=== PATIENT | female | born 1945 | race Caucasian/White ===

== ENCOUNTER 2022-08-02 10:15 | Outpatient (OUT) | payer MEDICARE, SELFPAY ==
--- NOTE | 2022-08-02 10:31 | US_ITS ---
The [address] [address] Patient Name: AYSHA ABRAHAM MRN: [id number] date: 1945 Sex: F Assigned Patient Location: US Current Patient Location: US Accession/Order Number: [id number] Exam Date: 08/02/2022 10:30 Report Date: 08/02/2022 14:44 At the request of: LETHA GÓMEZ Procedure: US soft tissue head and neck EXAMINATION: US soft tissue head and neck HISTORY: Left cervical lymphadenopathy R59.0 COMPARISON: Ultrasound thyroid 03/30/2022 FINDINGS: Oval hypoechoic mass within upper left neck near carotid bifurcation, 1.8 x 1.3 x 0.8 cm. No significant internal blood flow on color Doppler. IMPRESSION: 1. 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 No appreciable change. Electronically authenticated by: CAMILLE CARTER Date: 08/02/2022 14:44
== END 2022-08-02 10:16 ==
LOC: US 10:23
PROVIDERS: PCP Family Medicine; Visit Provider Otolaryngology
DX: R59.0 Localized enlarged lymph nodes (principal)
CPT/HCPCS: 76536

== ENCOUNTER 2022-09-20 05:06 | Observation (INO) | payer MEDICARE, SELFPAY ==
[2022-09-20] VITALS (14 sets, daily range): BP systolic 135–160; BP diastolic 66–82; PULSE 37–99; RESP 13–30; TEMP 36.5–36.8; O2SAT 90–97; BMI 28.3; BMI 29.9
--- NOTE | 2022-09-20 05:20 | ED.ABDPAIN1 ---
HPI - Abdominal Pain General Chief Complaint: Nausea/Vomiting/Diarrhea Stated Complaint: ABD PAIN VOMITTING Time Seen by Provider: 09/20/22 05:17 Source: patient Mode of arrival: Wheelchair History of Present Illness HPI narrative: patient presents complaining of abdominal pain and vomiting. Started yesterday evening. Also constipated. neg hematemesis MD elicited complaint: Reports abdominal pain Pertinent past history: Reports constipation Onset (ago): hour(s) Related Data Home Medications Medication Instructions Recorded Confirmed amlodipine 5 mg tablet mg 09/20/22 aspirin 81 mg tablet,delayed 81 mg PO DAILY 09/20/22 09/20/22 release (Adult Aspirin Regimen) citalopram 40 mg tablet mg 09/20/22 losartan 100 tab 09/20/22 mg-hydrochlorothiazide 25 mg tablet simvastatin 20 mg tablet mg 09/20/22 Allergies Allergy/AdvReac Type Severity Reaction Status Date / Time Penicillins Allergy Unknown Verified 09/20/22 05:18 Review of Systems ROS Status of ROS 10 or more systems reviewed and unremarkable except as noted in history and below [facility] Medical History (Updated 09/20/22 @ 06:51 by Rc Zuniga MD) Surgical History (Updated 09/20/22 @ 06:19 by Brittny Flores) Exam Constitutional Vital Signs, click to edit/add: Last Vital Signs Temp 97.7 F 09/20/22 05:09 Pulse 86 09/20/22 05:09 Resp 20 09/20/22 05:09 BP 160/82 H 09/20/22 05:09 Pulse Ox 93 L 09/20/22 06:03 O2 Del Method Nasal Cannula 09/20/22 06:03 O2 Flow Rate 2 09/20/22 06:03 Common normals: no apparent distress, average body habitus, oriented x3 and healthy appearing Eye Common normals: EOMs intact bilaterally and conjunctivae normal Respiratory Common normals: normal respiratory effort, no retractions, no use of accessory muscles and clear to auscultation bilaterally Cardio Common normals: regular rate, regular rhythm, S1 normal heart sound and S2 normal heart sound GI Other: distended and firm. mild tenderness Extremity Common normals: normal to inspection and full ROM Neuro Common normals: oriented x3, CN's II-XII intact bilaterally, moves all extremities, no focal motor deficits and no sensory deficits noted Psych Appearance: grossly normal Course Vital Signs Vital signs: Vital Signs Temperature 97.7 F 09/20/22 05:09 Pulse Rate 86 09/20/22 05:09 Respiratory Rate 20 09/20/22 05:09 Blood Pressure 160/82 H 09/20/22 05:09 Pulse Oximetry 95 09/20/22 05:09 Oxygen Delivery Method Room Air 09/20/22 05:09 Temperature 97.7 F 09/20/22 05:09 Pulse Rate 86 09/20/22 05:09 Respiratory Rate 20 09/20/22 05:09 Blood Pressure 160/82 H 09/20/22 05:09 Pulse Oximetry 93 L 09/20/22 06:03 Oxygen Delivery Method Nasal Cannula 09/20/22 06:03 Oxygen Delivery Flow Rate 2 09/20/22 06:03 MDM - Abdominal Pain MDM Narrative Medical decision making narrative: patient presents with recurrent vomiting and abdominal pain started last night. abdomen distended and tender. labs with elevated lactic acid. Pain improved after morphine. Nausea is starting to return. a second dose of zofran ordered. CT pending. UA pending. IV hydration ordered for lactic acidosis care transferred to Dr Beckford at change in shift Lab Data Labs: Lab Results 09/20/22 Range/Units 05:25 WBC 14.7 H (4.0-11.0) 10^3/uL RBC 4.93 (4.20-5.40) 10^6/uL Hgb 14.1 (12.0-16.0) g/dL Hct 42.8 (36.0-48.0) % MCV 86.8 (81.0-99.0) fL MCH 28.6 (26.7-34.0) pg MCHC 32.9 (29.9-35.2) g/dL RDW 13.2 (11.0-15.0) % Plt Count 232 (150-450) 10^3/uL MPV 11.0 (9.5-13.5) fL Neut % (Auto) 86.5 H (43.0-75.0) % Lymph % (Auto) 7.4 L (20.5-60.0) % Kay % (Auto) 4.9 (1.7-12.0) % Eos % (Auto) 0.3 L (0.9-7.0) % Baso % (Auto) 0.4 (0.2-2.0) % Neut # (Auto) 12.7 H (1.4-6.5) 10^3/uL Lymph # (Auto) 1.1 L (1.2-3.8) 10^3/uL Kay # (Auto) 0.7 (0.3-0.8) 10^3/uL Eos # (Auto) 0.1 (0.0-0.7) 10^3/uL Baso # (Auto) 0.1 (0.0-0.1) 10^3/uL Abs Immat Gran (auto) 0.07 H (0.00-0.03) 10^3/uL Imm/Tot Granulo (auto) 0.5 (0.0-0.5) % Sodium 140 (136-145) mmol/L Potassium 3.2 L (3.5-5.1) mmol/L Chloride 101 (98-107) mmol/L Carbon Dioxide 25.9 (21.0-32.0) mmol/L Anion Gap 16.3 BUN 25.0 H (7.0-18.0) mg/dL Creatinine 0.96 (0.55-1.02) mg/dL Est GFR ( Amer) >60 (>=60) Est GFR (Non-Af Amer) 57 L (>=60) BUN/Creatinine Ratio 26.0 Glucose 195 H (74-106) mg/dL Lactate 4.3 H* (0.4-2.0) mmol/L Calcium 9.1 (8.5-10.1) mg/dL Total Bilirubin 0.4 (0.2-1.0) mg/dL AST 20 (15-37) U/L ALT 27 (14-59) U/L Alkaline Phosphatase 81 (46-116) U/L Troponin I High Sens 6.0 (4.0-51.3) pg/mL Total Protein 8.3 H (6.4-8.2) g/dL Albumin 4.2 (3.4-5.0) g/dL Globulin 4.1 g/dL Albumin/Globulin Ratio 1.0 Lipase 68.0 L (73.0-393.0) U/L Discharge Plan Discharge Chief Complaint: Nausea/Vomiting/Diarrhea Clinical Impression: Abdominal pain, Vomiting Patient Disposition: Still a Patient Prescriptions / Home Meds: No Action citalopram 40 mg tablet amlodipine 5 mg tablet losartan-hydrochlorothiazide 100-25 mg tablet simvastatin 20 mg tablet aspirin [Adult Aspirin Regimen] 81 mg tablet,delayed release (DR/EC) 81 mg PO DAILY Referrals: Ally Ibarra MD [Primary Care Provider] - 1 week
--- NOTE | 2022-09-20 05:22 | CT_ITS ---
[address] [address] Patient Name: AYSHA ABRAHAM MRN: [id number] date: 1945 Sex: F Assigned Patient Location: ER Current Patient Location: Accession/Order Number: [id number] Exam Date: 09/20/2022 06:10 Report Date: 09/20/2022 06:46 At the request of: RENALDO JACKSON Procedure: CT abdomen pelvis w con EXAMINATION: CT abdomen pelvis w con HISTORY: abdominal pain , vomiting, low back pain COMPARISON: CT abdomen pelvis 10/20/2020 TECHNIQUE: Axial, Coronal, and Sagittal images were obtained without and/or with IV contrast as indicated by examination type. Dose reduction techniques were achieved by using automated exposure control and/or adjustment of mA and/or kV according to patient size and/or use of iterative reconstruction technique. FINDINGS: LUNG BASES: No visible pulmonary or pleural disease. LIVER: No enlargement, atrophy, suspicious density, or significant focal lesion. BILIARY: No dilatation or calcification. PANCREAS: No lesion, fluid collection, or abnormal duct dilatation. SPLEEN: No enlargement or focal lesion. ADRENALS: No mass or enlargement. KIDNEYS: No mass, obstruction, or calcification. BOWEL/MESENTERY: Abnormally dilated fluid-filled loops of small bowel 3 cm in diameter with completely collapsed distal ileum and colon. Mild diverticulosis of sigmoid colon. No appreciable mass, hernia, wall thickening, free air, or free fluid. AORTA/VASCULAR: Moderate atherosclerotic disease. No aneurysm. RETROPERITONEUM: No mass or adenopathy. LYMPH NODES: No adenopathy. URINARY BLADDER: No visible focal wall thickening, lesion, or calculus. PELVIC ORGANS: No visible mass. Pelvic organs appropriate for patient age. ABDOMINAL WALL: Eventration of the anterior wall at level of umbilicus; no hernia sac. BONES: No bony lesion or fracture. OTHER: Negative. CT/CT abdomen pelvis w con IMPRESSION: 1.Distal small bowel obstruction in the region of distal ileum, estimated to be approximately 25 cm before the ileocecal valve. No identifiable transition point or mass. 2.Mild sigmoid diverticulosis. Electronically authenticated by: CAMILLE CARTER Date: 09/20/2022 06:46
--- NOTE | 2022-09-20 05:22 | XR_ITS ---
The [address] [address] Patient Name: AYSHA ABRAHAM MRN: [id number] date: 1945 Sex: F Assigned Patient Location: ER Current Patient Location: ED.[facility] Accession/Order Number: [id number] Exam Date: 09/20/2022 06:00 Report Date: 09/20/2022 06:30 At the request of: RENALDO JACKSON Procedure: XR chest 1V EXAM: XR chest 1V HISTORY: Shortness of breath; technologist notes state abdominal pain and discomfort, vomiting and low back pain since last night. COMPARISON: 01/05/2018. TECHNIQUE: AP erect portable chest radiograph performed. FINDINGS: The trachea is unremarkable. The cardiac silhouette is upper limits normal size. There are mild atelectatic densities at the both lung bases. There is no additional consolidation or infiltrate. There is no pleural effusion or pulmonary vascular congestion. There is no pneumothorax. There is no acute osseous abnormality. The bony structures are osteopenic. There is mild dextroscoliosis centered at the thoracolumbar junction. There are degenerative changes at the glenohumeral articulations, severe on the left. XR/XR chest 1V IMPRESSION: Mild atelectatic densities at both lung bases. Electronically authenticated by: JUAN DANIEL FARIA Date: 09/20/2022 06:30
--- NOTE | 2022-09-20 05:24 | ECG_ITS ---
The [facility] Test Date: 2022-09-20 Pat Name: Sarina Villegas Department: Room: - Gender: Female Background Check Coordinator: : 1945 Requested By: TREVOR GUEVARA Order Number: [id number] Reading MD: ERIKA RODRIGES Measurements Intervals Pender Rate: 89 P: 38 PA: 138 QRS: -2 QRSD: 100 T: -39 QT: 378 QTc: 424 Interpretive Statements 1100 Sinus rhythm 2217 Type-B Atxch-Vwhhnoexf-Dhkrp syndrome 9150 abnormal ECG No previous ECG available for comparison Electronically Signed On 09-20-2022 6:59:24 EDT by ERIKA RODRIGES
[2022-09-20 05:37] LABS: Basophils Absolute Auto 0.1 10^3/uL (0.0-0.1); Basophils Percent Auto 0.4 % (0.2-2.0); Eosinophils Absolute Auto 0.1 10^3/uL (0.0-0.7); Eosinophils Percent Auto 0.3 % (0.9-7.0); Hematocrit 42.8 % (36.0-48.0); Hemoglobin 14.1 g/dL (12.0-16.0); Immature Granulocytes Abs Auto 0.07 10^3/uL (0.00-0.03); Immature Granulocytes Pct Auto 0.5 % (0.0-0.5); Lymphocytes Absolute Auto 1.1 10^3/uL (1.2-3.8); Lymphocytes Percent Auto 7.4 % (20.5-60.0); Mean Corpuscular HGB Conc 32.9 g/dL (29.9-35.2); Mean Corpuscular Hemoglobin 28.6 pg (26.7-34.0); Mean Corpuscular Volume 86.8 fL (81.0-99.0); Monocytes Absolute Auto 0.7 10^3/uL (0.3-0.8); Monocytes Percent Auto 4.9 % (1.7-12.0); Neutrophils Absolute Auto 12.7 10^3/uL (1.4-6.5); Neutrophils Percent Auto 86.5 % (43.0-75.0); Platelet Count 232 10^3/uL (150-450); Red Blood Count 4.93 10^6/uL (4.20-5.40); Red Cell Distribution Width 13.2 % (11.0-15.0); White Blood Count 14.7 10^3/uL (4.0-11.0)
--- NOTE | 2022-09-20 05:40 | PC.NURSE ---
patient c/o sharp abdominal pain across abdomen and back pain. patient has been vomiting since approx 11pm last night. states she was fine earlier in the day and started to feel sick after she cooked dinner. patient abdomen is more distended and firmer than usual but it is always on the larger side. patient states she feels like she is constipated, she had a bowel movement earlier yesterday but states she could go more. patient has increased weakness, denies any chest pain, fever or chills. emesis has foul smelling odor. patient c/o pain in throat. unable to give urine sample at this time. iv established, ekg obtained.
[2022-09-20 05:49] LABS: Alanine Aminotransferase 27 U/L (14-59); Albumin Level 4.2 g/dL (3.4-5.0); Alkaline Phosphatase 81 U/L (46-116); Anion Gap 16.3; Aspartate Amino Transferase 20 U/L (15-37); Bilirubin Total 0.4 mg/dL (0.2-1.0); Calcium 9.1 mg/dL (8.5-10.1); Carbon Dioxide 25.9 mmol/L (21.0-32.0); Chloride 101 mmol/L (98-107); Estimated GFR (African America >60 (>=60); Estimated GFR (Non-African Ame 57 (>=60); Globulin 4.1 g/dL; Glucose 195 mg/dL (74-106); Potassium 3.2 mmol/L (3.5-5.1); Sodium 140 mmol/L (136-145); Total Protein 8.3 g/dL (6.4-8.2)
[2022-09-20] MEDS: MORPHINE SULFATE 4 MG/ML VIAL IV (05:51)
[2022-09-20] MEDS: 0.9 % SODIUM CHLORIDE 1,000 ML 999 ML IV ×2 (05:51→07:04)
[2022-09-20 05:52] LABS: Lactate/Lactic Acid 4.3 mmol/L (0.4-2.0)
[2022-09-20] MEDS: ONDANSETRON PF 4 MG/2 ML VIAL IV ×2 (05:52→07:04)
--- NOTE | 2022-09-20 06:04 | PC.NURSE ---
patient o2 saturation dropped to 84% shortly after morphine administration. instructed patient to take a deep breath and saturation returned to baseline. patient placed on 2 liters o2 via nasal canula
[2022-09-20 06:55] LABS: Bilirubin Urine NEGATIVE (NEGATIVE); Blood Urine NEGATIVE (NEGATIVE); Clarity Urine CLEAR (CLEAR); Color Urine YELLOW (YELLOW); Glucose Urine UA NEGATIVE (NEGATIVE); Ketones Urine NEGATIVE (NEGATIVE); Leukocyte Esterase Urine NEGATIVE (NEGATIVE); Nitrite Urine NEGATIVE (NEGATIVE); Protein Urine NEGATIVE (NEG/TRACE); Specific Gravity Urine 1.025 (1.005-1.025); Urine Microscopic Indicated NO; Urobilinogen Urine 0.2 EU/dL (0.2-1.0); pH Urine 5.5 (5.0-9.0)
--- NOTE | 2022-09-20 07:30 | XR_ITS ---
The [address] [address] Patient Name: AYSHA ABRAHAM MRN: [id number] date: 1945 Sex: F Assigned Patient Location: ER Current Patient Location: MS Accession/Order Number: [id number] Exam Date: 09/20/2022 07:45 Report Date: 09/20/2022 08:16 At the request of: CYDNEY ROBLES Procedure: XR chest 1V EXAMINATION: XR chest 1V HISTORY: NG tube placement COMPARISON: XR chest 09/20/2022 5:22 AM FINDINGS: LUNGS: Underexpanded lungs with mild bibasilar atelectasis (no infiltrates on this morning's CT abdomen pelvis study). VASCULATURE: No increased pulmonary vasculature. PLEURA: No pneumothorax, effusion, or pleural thickening. CARDIAC: No cardiomegaly or cardiac silhouette abnormality. MEDIASTINUM: No visible mass or adenopathy. BONES: No fracture or visible bone lesion. OTHER: Nasogastric tube extends into distal fundus of stomach. XR/XR chest 1V IMPRESSION: 1. Nasogastric tube within fundus of stomach. Electronically authenticated by: CAMILLE CARTER Date: 09/20/2022 08:16
[2022-09-20 09:26] LABS: Lactate/Lactic Acid 2.8 mmol/L (0.4-2.0)
[2022-09-20] MEDS: ENOXAPARIN SODIUM 40 MG/0.4 ML SYRINGE SUBQ (11:46)
[2022-09-20] MEDS: LACTATED RINGER'S SOLUTION 1,000 ML 100 ML IV ×2 (11:47→21:37)
[2022-09-20] MEDS: POTASSIUM CHLORIDE 40 MEQ in 0.9 % SODIUM CHLORIDE 250 ML 67.5 MEQ IV (11:47)
[2022-09-20] MEDS: PANTOPRAZOLE SODIUM 40 MG VIAL IV (15:40)
--- NOTE | 2022-09-20 17:40 | P.GSCN_ITS ---
History of Present Illness Consult details Consult date: 09/20/22 Reason for consult: abdominal pain Requesting physician: Shaikh Shira Narrative: 77 yo female with h/o CAD, htn, hypercholesterolemia, hypothyroidism, arthritis, presented to ED with h/o crampy mid abd pain that began yesterday evening, N/V; workup revealed dehydration; ct scan with dilated small bowel and stomach, possible partial sbo; patient had NG tube placed, did have liquid stool in ED, pain has now resolved, no further N/V. patient had ROSE MARIE for sbo in 2006 via periumbilical incision. abd operations also significant for cholecystectomy, appendectomy and ovarian cystectomy. patient reports that she has intermittent problems with loose stools, at times uncontrollable; has been taking Imodium, and she did take some the day prior to these symptoms. no tobacco use. Review of Systems ROS Status of ROS 10 or more systems reviewed and unremarkable except as noted in history and below [facility] Medical History (Updated 09/20/22 @ 17:50 by Augie Brothers MD) Surgical History (Updated 09/20/22 @ 06:19 by Brittny Flores) Family History (Updated 09/20/22 @ 08:23 by Geno Morin) Brother Family history of cancer Family history of myocardial infarction Mother Family history of stroke Social History (Updated 09/20/22 @ 08:27 by Geno Morin) Within the past year, how often did you have a drink containing alcohol: 2-4 times a month Within the past year, how many standard drinks containing alcohol did you have on a typical day: 1 or 2 Within the past year, how often did you have six or more drinks on one occasion: never Total score: 0 Score interpretation: A score less than 3 is consistent with normal alcohol consumption. Smoking status: Former smoker Non-prescribed substance use: denies use Previous occupational history: [employer] Highest level of school completed/degree received: high school graduate Are you now , , , , never or living with a partner: In a typical week, how many times do you talk on the telephone with family, friends, or neighbors: 3 or more times per week How often do you get together with friends or relatives: once per week How often do you attend mormonism or lutheran services: 4 or more times per year Do you belong to any clubs or organizations such as mormonism groups unions, fraternal or athletic groups, or school groups: no Total score: 2 Score interpretation: A score of greater than or equal to 2 indicates the low est level of social isolation. Little interest or pleasure in doing things: not at all Feeling down, depressed, or hopeless: not at all Feel stressed/tense/nervous/anxious/difficulty sleeping: not at all Gender Identity: female Meds Home Medications and Allergies Home Medications Medication Instructions Recorded Confirmed Type amlodipine 5 mg tablet 5 mg PO DAILY 09/20/22 09/20/22 History aspirin 81 mg tablet,delayed 81 mg PO DAILY 09/20/22 09/20/22 History release (Adult Aspirin Regimen) citalopram 40 mg tablet 40 mg PO DAILY 09/20/22 09/20/22 History levothyroxine 50 mcg tablet 50 mcg PO DAILY 09/20/22 09/20/22 History losartan 100 1 tab PO DAILY 09/20/22 09/20/22 History mg-hydrochlorothiazide 25 mg tablet simvastatin 20 mg tablet 20 mg PO DAILY 09/20/22 09/20/22 History Allergies Allergy/AdvReac Type Severity Reaction Status Date / Time Penicillins Allergy Unknown Verified 09/20/22 05:18 Exam Constitutional Vital Signs, click to edit/add: Last Vital Signs Temp 98.0 F 09/20/22 14:00 Pulse 79 09/20/22 14:00 Resp 16 09/20/22 14:00 BP 155/66 H 09/20/22 14:00 Pulse Ox 92 L 09/20/22 14:00 O2 Del Method Room Air 09/20/22 14:00 O2 Flow Rate 2 09/20/22 08:18 Common normals: no apparent distress, alert and well nourished General appearance: cooperative and comfortable Nutritional appearance: obese Orientation/consciousness: Yes awake, Yes oriented to person, Yes oriented to place and Yes oriented to time Respiratory Common normals: normal respiratory effort Auscultation: clear to auscultation bilaterally Cardio Common normals: no JVD Rate: regular rate Rhythm: regular rhythm GI Other: obese, soft, normal bs; nondistended, nontender, well-healed abd incisions, no hernias or masses noted; NG tube with bilious drainage. Extremity Common normals: normal to inspection Neuro Common normals: no focal motor deficits Results Labs Labs: Abnormal lab results 09/20/22 09/20/22 Range/Units 05:25 08:45 WBC 14.7 H (4.0-11.0) 10^3/uL Neut % (Auto) 86.5 H (43.0-75.0) % Lymph % (Auto) 7.4 L (20.5-60.0) % Eos % (Auto) 0.3 L (0.9-7.0) % Neut # (Auto) 12.7 H (1.4-6.5) 10^3/uL Lymph # (Auto) 1.1 L (1.2-3.8) 10^3/uL Abs Immat Gran (auto) 0.07 H (0.00-0.03) 10^3/uL Potassium 3.2 L (3.5-5.1) mmol/L BUN 25.0 H (7.0-18.0) mg/dL Est GFR (Non-Af Amer) 57 L (>=60) Glucose 195 H (74-106) mg/dL Lactate 4.3 H* 2.8 H* (0.4-2.0) mmol/L Total Protein 8.3 H (6.4-8.2) g/dL Lipase 68.0 L (73.0-393.0) U/L Diabetes panel 09/20/22 Range/Units 05:25 Sodium 140 (136-145) mmol/L Potassium 3.2 L (3.5-5.1) mmol/L Chloride 101 (98-107) mmol/L Carbon Dioxide 25.9 (21.0-32.0) mmol/L BUN 25.0 H (7.0-18.0) mg/dL Creatinine 0.96 (0.55-1.02) mg/dL Glucose 195 H (74-106) mg/dL Calcium 9.1 (8.5-10.1) mg/dL AST 20 (15-37) U/L ALT 27 (14-59) U/L Alkaline Phosphatase 81 (46-116) U/L Total Protein 8.3 H (6.4-8.2) g/dL Albumin 4.2 (3.4-5.0) g/dL Calcium panel 09/20/22 Range/Units 05:25 Calcium 9.1 (8.5-10.1) mg/dL Albumin 4.2 (3.4-5.0) g/dL Pituitary panel 09/20/22 Range/Units 05:25 Sodium 140 (136-145) mmol/L Potassium 3.2 L (3.5-5.1) mmol/L Chloride 101 (98-107) mmol/L Carbon Dioxide 25.9 (21.0-32.0) mmol/L BUN 25.0 H (7.0-18.0) mg/dL Creatinine 0.96 (0.55-1.02) mg/dL Glucose 195 H (74-106) mg/dL Calcium 9.1 (8.5-10.1) mg/dL Adrenal panel 09/20/22 Range/Units 05:25 Sodium 140 (136-145) mmol/L Potassium 3.2 L (3.5-5.1) mmol/L Chloride 101 (98-107) mmol/L Carbon Dioxide 25.9 (21.0-32.0) mmol/L BUN 25.0 H (7.0-18.0) mg/dL Creatinine 0.96 (0.55-1.02) mg/dL Glucose 195 H (74-106) mg/dL Calcium 9.1 (8.5-10.1) mg/dL Total Bilirubin 0.4 (0.2-1.0) mg/dL AST 20 (15-37) U/L ALT 27 (14-59) U/L Alkaline Phosphatase 81 (46-116) U/L Total Protein 8.3 H (6.4-8.2) g/dL Albumin 4.2 (3.4-5.0) g/dL All other labs normal. Assessment and Plan Assessment and Plan (1) Abdominal pain: Assessment and Plan: currently resolved (2) Vomiting: Assessment and Plan: currently resolved Plan continue NG decompression, bowel rest, hydration; supportive care; will recheck abd films in am, may need sbft via NG tube.
--- NOTE | 2022-09-20 20:23 | P.HP_ITS ---
H&P: HPI History of Present Illness Chief complaint: ABD PAIN/SBO Narrative: 77 y o female presents with sudden onset nausea, vomiting, inability to keep her food down, associated generalized abdominal pain, that is cramping in nature, intermittent, with no specific aggravating or alleviating factors. Also reports abdominal distention, and last bowel movement was past Tuesday. Reports she is seeing bile in her vomit. Prior hx of SBO that required laparotomy over 5 years ago and since then this is the first time she has developed bowel obstruction again. Has chronic diarrhea and her bowels movements are never ok. Colonoscopy 2 yeas ago - normal as per patient. In ED, w/u c/w SBO, she had NGT insertion for bowel rest, and decompression and was admitted to inpatient service for further care. Reports feeling better with NGT, has copious/large volume drainage from NGT that looks like bowel. She had a small liquid BM just when she arrived on floor. Review of Systems ROS Status of ROS 10 or more systems reviewed and unremarkable except as noted in history and below PFSH PFS Medical History Surgical History Family History Brother Family history of cancer Family history of myocardial infarction Mother Family history of stroke Social History Within the past year, how often did you have a drink containing alcohol: 2-4 times a month Within the past year, how many standard drinks containing alcohol did you have on a typical day: 1 or 2 Within the past year, how often did you have six or more drinks on one occasion: never Total score: 0 Score interpretation: A score less than 3 is consistent with normal alcohol consumption. Smoking status: Former smoker Non-prescribed substance use: denies use Previous occupational history: [employer] Highest level of school completed/degree received: high school graduate Are you now , , , , never or living with a partner: In a typical week, how many times do you talk on the telephone with family, friends, or neighbors: 3 or more times per week How often do you get together with friends or relatives: once per week How often do you attend restorationist or presybeterian services: 4 or more times per year Do you belong to any clubs or organizations such as restorationist groups unions, fraternal or athletic groups, or school groups: no Total score: 2 Score interpretation: A score of greater than or equal to 2 indicates the lowest level of social isolation. Little interest or pleasure in doing things: not at all Feeling down, depressed, or hopeless: not at all Feel stressed/tense/nervous/anxious/difficulty sleeping: not at all Gender Identity: female Meds Home Medications and Allergies Home Medications Medication Instructions Recorded Confirmed Type amlodipine 5 mg tablet 5 mg PO DAILY 09/20/22 09/20/22 History aspirin 81 mg tablet,delayed 81 mg PO DAILY 09/20/22 09/20/22 History release (Adult Aspirin Regimen) citalopram 40 mg tablet 40 mg PO DAILY 09/20/22 09/20/22 History levothyroxine 50 mcg tablet 50 mcg PO DAILY 09/20/22 09/20/22 History losartan 100 1 tab PO DAILY 09/20/22 09/20/22 History mg-hydrochlorothiazide 25 mg tablet simvastatin 20 mg tablet 20 mg PO DAILY 09/20/22 09/20/22 History Allergies Allergy/AdvReac Type Severity Reaction Status Date / Time Penicillins Allergy Unknown Verified 09/20/22 05:18 Exam Constitutional Vital Signs, click to edit/add: Last Vital Signs Temp 98.0 F 09/20/22 14:00 Pulse 79 09/20/22 14:00 Resp 16 09/20/22 14:00 BP 155/66 H 09/20/22 14:00 Pulse Ox 92 L 09/20/22 14:00 O2 Del Method Room Air 09/20/22 14:00 O2 Flow Rate 2 09/20/22 08:18 Documenting provider has reviewed patient's vital signs: yes Common normals: no apparent distress General appearance: cooperative and comfortable HENMT Common normals: normocephalic and head/scalp atraumatic Nose: other (NGT in place, with large bilious drainage.) Respiratory Common normals: normal respiratory effort, no retractions, no use of accessory muscles and clear to auscultation bilaterally GI Common normals: Normal to inspection, nondistended, normoactive bowel sounds present, soft to palpation, non-tender and no hepatosplenomegaly Extremity Common normals: normal to inspection and full ROM Neuro Common normals: CN's II-XII intact bilaterally, moves all extremities, no focal motor deficits and no sensory deficits noted Psych Common normals: thought process normal, cooperative, denies hallucinations, denies homicidal ideation and denies suicidal ideation Results Labs Labs: Short CBC 09/20/22 Range/Units 05:25 WBC 14.7 H (4.0-11.0) 10^3/uL Hgb 14.1 (12.0-16.0) g/dL Hct 42.8 (36.0-48.0) % Plt Count 232 (150-450) 10^3/uL BMP 09/20/22 05:25 Sodium 140 Potassium 3.2 L Chloride 101 Carbon Dioxide 25.9 BUN 25.0 H Creatinine 0.96 Glucose 195 H Calcium 9.1 Liver Function 09/20/22 Range/Units 05:25 Total Bilirubin 0.4 (0.2-1.0) mg/dL AST 20 (15-37) U/L ALT 27 (14-59) U/L Alkaline Phosphatase 81 (46-116) U/L Albumin 4.2 (3.4-5.0) g/dL Urine 09/20/22 Range/Units 06:45 Urine Color Yellow (YELLOW) Urine Clarity Clear (CLEAR) Urine pH 5.5 (5.0-9.0) Ur Specific [place] 1.025 (1.005-1.025) Urine Protein Negative (NEG/TRACE) mg/dL Urine Glucose (UA) Negative (NEGATIVE) mg/dL Assessment and Plan Assessment and Plan (1) SBO (small bowel obstruction): Assessment and Plan: NGT in place. Small liquid BM this morning C/w supportive care. Surgery on board. (2) Intractable nausea and vomiting: Assessment and Plan: Due to SBO Improved with NGT insertion Zofran as needed. (3) Hypertension: Assessment and Plan: above goal likely due to pain. Resume oral meds once able to use. Hydralazine PRN until then (4) Leukocytosis: Assessment and Plan: likely reactive. no source of infection identified. Monitor. (5) Lactic acid acidosis: Assessment and Plan: Likely due to dehydration Improved with hydration (6) CAD (coronary artery disease): Assessment and Plan: s/p PCI over 10 years ago On ASA, statin Cw same No CP, SOB (7) HLD (hyperlipidemia): Assessment and Plan: c/w simvastatin (8) Hypothyroidism: Assessment and Plan: C/w levothyroxine (9) Depression: Assessment and Plan: C/w citalopram daily Plan continue NG decompression, bowel rest, hydration; supportive care; will recheck abd films in am, may need sbft via NG tube.
--- NOTE | 2022-09-21 | FL_ITS ---
The [address] [address] Patient Name: AYSHA ABRAHAM MRN: [id number] date: 1945 Sex: F Assigned Patient Location: [place] Current Patient Location: [place] Accession/Order Number: [id number] Exam Date: 09/21/2022 12:05 Report Date: 09/21/2022 15:06 At the request of: SHAIKH CUBA Procedure: FL small bowel EXAM: FL small bowel HISTORY: Small bowel obstruction COMPARISON: XR acute abdomen series 09/21/2022 7:45 AM TECHNIQUE: Oral contrast given with follow-up radiographs to document passage. FINDINGS: Oral contrast has passed through the entire small bowel and is present within the colon at one hour. FL/FL small bowel IMPRESSION: 1. No bowel obstruction or ileus. Electronically authenticated by: CAMILLE CARTER Date: 09/21/2022 15:06
[2022-09-21 04:44] LABS: Basophils Percent Auto 0.3 % (0.2-2.0); Eosinophils Absolute Auto 0.2 10^3/uL (0.0-0.7); Eosinophils Percent Auto 3.8 % (0.9-7.0); Hematocrit 33.6 % (36.0-48.0); Hemoglobin 10.8 g/dL (12.0-16.0); Immature Granulocytes Abs Auto 0.01 10^3/uL (0.00-0.03); Immature Granulocytes Pct Auto 0.2 % (0.0-0.5); Lymphocytes Absolute Auto 1.7 10^3/uL (1.2-3.8); Lymphocytes Percent Auto 28.3 % (20.5-60.0); Mean Corpuscular HGB Conc 32.1 g/dL (29.9-35.2); Mean Corpuscular Hemoglobin 29.4 pg (26.7-34.0); Mean Corpuscular Volume 91.6 fL (81.0-99.0); Mean Platelet Volume 11.4 fL (9.5-13.5); Monocytes Absolute Auto 0.6 10^3/uL (0.3-0.8); Monocytes Percent Auto 9.4 % (1.7-12.0); Neutrophils Absolute Auto 3.5 10^3/uL (1.4-6.5); Platelet Count 149 10^3/uL (150-450); Red Blood Count 3.67 10^6/uL (4.20-5.40); Red Cell Distribution Width 13.4 % (11.0-15.0); White Blood Count 6.1 10^3/uL (4.0-11.0)
[2022-09-21 04:47] VITALS: BP 106/62; PULSE 66; TEMP 37.1; O2SAT 92
[2022-09-21 05:10] LABS: Alanine Aminotransferase 22 U/L (14-59); Albumin Globulin Ratio 0.9; Albumin Level 2.9 g/dL (3.4-5.0); Alkaline Phosphatase 59 U/L (46-116); Anion Gap 8.1; Aspartate Amino Transferase 17 U/L (15-37); BUN Creatinine Ratio 21.1; Bilirubin Total 0.3 mg/dL (0.2-1.0); Calcium 7.9 mg/dL (8.5-10.1); Carbon Dioxide 30.2 mmol/L (21.0-32.0); Chloride 109 mmol/L (98-107); Estimated GFR (African America >60 (>=60); Estimated GFR (Non-African Ame >60 (>=60); Globulin 3.2 g/dL; Glucose 96 mg/dL (74-106); Potassium 3.3 mmol/L (3.5-5.1); Sodium 144 mmol/L (136-145); Total Protein 6.1 g/dL (6.4-8.2)
--- NOTE | 2022-09-21 08:39 | XR_ITS ---
The [address] [address] Patient Name: AYSHA ABRAHAM MRN: [id number] date: 1945 Sex: F Assigned Patient Location: MS Current Patient Location: [place] Accession/Order Number: [id number] Exam Date: 09/21/2022 07:53 Report Date: 09/21/2022 08:56 At the request of: SUSANNE MCDOWELL Procedure: XR acute abdomen series EXAMINATION: XR acute abdomen series HISTORY: abdominal pain ; follow-up small bowel obstruction COMPARISON: XR chest 09/20/2022, CT abdomen pelvis 09/20/2022 FINDINGS: LUNGS: No infiltrate, pneumothorax, or pleural effusion. MEDIASTINUM: No abnormal widening. BOWEL GAS PATTERN: No abnormal bowel dilation or suspicious fluid levels. FREE AIR: None. CALCIFICATIONS: None significant. BONES: Levoscoliosis of lumbar spine. OTHER: Nasogastric tube extends into fundus of stomach. Side port appears to be just above the gastroesophageal junction. XR/XR acute abdomen series IMPRESSION: 1. No bowel obstruction or findings to suggest ileus. 2. No acute cardiopulmonary process. Electronically authenticated by: CAMILLE CARTER Date: 09/21/2022 08:56
[2022-09-21] MEDS: LACTATED RINGER'S SOLUTION 1,000 ML 100 ML IV ×2 (09:12→20:19)
[2022-09-21] MEDS: ENOXAPARIN SODIUM 40 MG/0.4 ML SYRINGE SUBQ (10:09)
[2022-09-21] MEDS: POTASSIUM CHLORIDE 40 MEQ in 0.9 % SODIUM CHLORIDE 250 ML 67.5 MEQ IV (10:10)
--- NOTE | 2022-09-21 12:02 | CM.NOTE ---
Rounds made with Dr. Silva. Dr. Silva reviewed tests(Radiology) results and new orders with Sarina. Verbalizes understanding.
--- NOTE | 2022-09-21 12:56 | PM.IMPN1 ---
Progress Note: A&P Assessment and Plan (1) SBO (small bowel obstruction): Assessment and Plan: XR abd this am shows resolution Gen Surg asked for XR Small bowel follow through with gastrografin. If normal, will remove NGT and advance diet as tolerated. (2) Intractable nausea and vomiting: Assessment and Plan: Resolved. NGT in place but clamped now and patient feels well. Remove if Small bowel series is normal and advance diet as tolerated (3) Hypertension: Assessment and Plan: At goal. Will resume home meds once able to take orally (4) Leukocytosis: Assessment and Plan: Resolved (5) Lactic acid acidosis: Assessment and Plan: From hpyoperfusion/dehydration. Monitor (6) CAD (coronary artery disease): Assessment and Plan: on ASA, Statin Stable (7) HLD (hyperlipidemia): Assessment and Plan: C/w statin (8) Hypothyroidism: Assessment and Plan: C/w levothyroxine (9) Depression: Assessment and Plan: Stable. C/w citalopram Plan F/u XR abd series, if normal, will removed NGT and advance diet. If patient tolerates oral diet and remains asymptomatic, will d/c home Will need to monitor for symptoms and response to oral diet and will require comtinued hospital stay and will likely go home tomorrow if continues to progress clinically in the right direction Internal Medicine - PN: Subj Subjective Interval history: Seen and examined. Doing well. NGT is clamped and patient was getting gastrogrfin through it when I evaluated her this am XR abdominal series from this am - shows no evidence of bowel obs or ileus Exam Constitutional Vital Signs, click to edit/add: Last Vital Signs Temp 98.7 F 09/21/22 04:47 Pulse 66 09/21/22 04:47 Resp 15 09/20/22 20:58 BP 106/62 09/21/22 04:47 Pulse Ox 92 L 09/21/22 04:47 O2 Del Method Nasal Cannula 09/21/22 04:47 O2 Flow Rate 2 09/20/22 20:58 FiO2 2 09/21/22 04:47 Documenting provider has reviewed patient's vital signs: yes Common normals: no apparent distress General appearance: cooperative and comfortable HENMT Common normals: normocephalic and head/scalp atraumatic Nose: other (NGT in place) Respiratory Common normals: normal respiratory effort, no retractions, no use of accessory muscles and clear to auscultation bilaterally GI Common normals: Normal to inspection, nondistended, normoactive bowel sounds present, soft to palpation, non-tender and no hepatosplenomegaly Extremity Common normals: normal to inspection and full ROM Neuro Common normals: CN's II-XII intact bilaterally, moves all extremities, no focal motor deficits and no sensory deficits noted Psych Common normals: thought process normal, cooperative, denies hallucinations, denies homicidal ideation and denies suicidal ideation Internal Medicine - PN: Obj Da Labs Labs: Laboratory Results - last 24 hr 09/21/22 04:27 WBC 6.1 RBC 3.67 L Hgb 10.8 L Hct 33.6 L MCV 91.6 MCH 29.4 MCHC 32.1 RDW 13.4 Plt Count 149 L MPV 11.4 Neut % (Auto) 58.0 Lymph % (Auto) 28.3 [place] % (Auto) 9.4 Eos % (Auto) 3.8 Baso % (Auto) 0.3 Neut # (Auto) 3.5 Lymph # (Auto) 1.7 [place] # (Auto) 0.6 Eos # (Auto) 0.2 Baso # (Auto) 0.0 Abs Immat Gran (auto) 0.01 Imm/Tot Granulo (auto) 0.2 Sodium 144 Potassium 3.3 L Chloride 109 H Carbon Dioxide 30.2 Anion Gap 8.1 BUN 15.0 Creatinine 0.71 Est GFR ( Amer) >60 Est GFR (Non-Af Amer) >60 BUN/Creatinine Ratio 21.1 Glucose 96 Calcium 7.9 L Total Bilirubin 0.3 AST 17 ALT 22 Alkaline Phosphatase 59 Total Protein 6.1 L Albumin 2.9 L Globulin 3.2 Albumin/Globulin Ratio 0.9
[2022-09-21 13:05] VITALS: BMI 29.9
[2022-09-21 13:24] VITALS: BP 174/76; PULSE 75; RESP 18; TEMP 36.5; O2SAT 85
[2022-09-21] MEDS: PANTOPRAZOLE SODIUM 40 MG VIAL IV (14:35)
[2022-09-21 14:38] VITALS: BP 162/78
--- NOTE | 2022-09-21 17:21 | PM.GSPN ---
Progress Note: A&P Assessment and Plan (1) SBO (small bowel obstruction): Assessment and Plan: resolved; possible ileus from Imodium verses gastroenteritis; recommend discontinuing Imodium, can use Questran powder as needed for intermittent diarrhea; advance to low residue diet as tolerated; will sign off. (2) Intractable nausea and vomiting: Assessment and Plan: resolved (3) Hypertension: (4) Leukocytosis: (5) Lactic acid acidosis: (6) CAD (coronary artery disease): (7) HLD (hyperlipidemia): (8) Hypothyroidism: (9) Depression: Plan advance to low residue diet as tolerated; ok for discharge from surgery standpoint; will sign off. Subjective Subjective Interval history: doing well, no pain today, multiple loose stools after gastrograffin; sbft without obstruction; tolerating full liquid diet now. Exam Constitutional Vital Signs, click to edit/add: Last Vital Signs Temp 97.7 F 09/21/22 13:24 Pulse 75 09/21/22 13:24 Resp 18 09/21/22 13:24 BP 162/78 H 09/21/22 14:38 Pulse Ox 85 L 09/21/22 13:24 O2 Del Method Room Air 09/21/22 13:24 O2 Flow Rate 2 09/20/22 20:58 FiO2 2 09/21/22 04:47 GI Other: soft, nontender, nondistended
[2022-09-21 21:35] VITALS: BP 169/83; PULSE 75; RESP 18; TEMP 36.8; O2SAT 91
[2022-09-21 22:34] VITALS: BP 169/89
[2022-09-21] MEDS: HYDRALAZINE HCL 20 MG/ML VIAL 10 MG IVP (22:34)
[2022-09-22 05:07] LABS: Basophils Percent Auto 0.3 % (0.2-2.0); Eosinophils Absolute Auto 0.2 10^3/uL (0.0-0.7); Eosinophils Percent Auto 3.1 % (0.9-7.0); Hematocrit 34.5 % (36.0-48.0); Hemoglobin 11.1 g/dL (12.0-16.0); Immature Granulocytes Abs Auto 0.02 10^3/uL (0.00-0.03); Immature Granulocytes Pct Auto 0.3 % (0.0-0.5); Lymphocytes Absolute Auto 1.4 10^3/uL (1.2-3.8); Lymphocytes Percent Auto 19.5 % (20.5-60.0); Mean Corpuscular HGB Conc 32.2 g/dL (29.9-35.2); Mean Corpuscular Hemoglobin 28.5 pg (26.7-34.0); Mean Corpuscular Volume 88.7 fL (81.0-99.0); Mean Platelet Volume 11.4 fL (9.5-13.5); Monocytes Absolute Auto 0.6 10^3/uL (0.3-0.8); Neutrophils Absolute Auto 5.1 10^3/uL (1.4-6.5); Neutrophils Percent Auto 68.8 % (43.0-75.0); Platelet Count 160 10^3/uL (150-450); Red Blood Count 3.89 10^6/uL (4.20-5.40); Red Cell Distribution Width 13.2 % (11.0-15.0); White Blood Count 7.4 10^3/uL (4.0-11.0)
[2022-09-22 05:25] LABS: Alanine Aminotransferase 19 U/L (14-59); Albumin Globulin Ratio 0.9; Albumin Level 3.1 g/dL (3.4-5.0); Alkaline Phosphatase 63 U/L (46-116); Anion Gap 14.1; Aspartate Amino Transferase 19 U/L (15-37); BUN Creatinine Ratio 12.3; Bilirubin Total 0.4 mg/dL (0.2-1.0); Calcium 8.4 mg/dL (8.5-10.1); Carbon Dioxide 27.3 mmol/L (21.0-32.0); Chloride 105 mmol/L (98-107); Estimated GFR (African America >60 (>=60); Estimated GFR (Non-African Ame >60 (>=60); Globulin 3.5 g/dL; Glucose 96 mg/dL (74-106); Potassium 3.4 mmol/L (3.5-5.1); Sodium 143 mmol/L (136-145); Total Protein 6.6 g/dL (6.4-8.2)
[2022-09-22 05:53] VITALS: BP 130/73; PULSE 73; RESP 16; TEMP 36.6; O2SAT 91
[2022-09-22 06:00] VITALS: BP 130/73; PULSE 73; RESP 16; TEMP 36.6; O2SAT 91
[2022-09-22] MEDS: LACTATED RINGER'S SOLUTION 1,000 ML 100 ML IV (06:59)
[2022-09-22] MEDS: LEVOTHYROXINE SODIUM 25 MCG TABLET 50 MCG PO (08:24)
[2022-09-22] MEDS: ATORVASTATIN CALCIUM 10 MG TABLET PO (08:25)
[2022-09-22] MEDS: AMLODIPINE BESYLATE 5 MG TABLET PO (08:25)
[2022-09-22] MEDS: ASPIRIN 81 MG TABLET.DR PO (08:25)
[2022-09-22] MEDS: CITALOPRAM HYDROBROMIDE 20 MG TABLET 40 MG PO (08:25)
[2022-09-22] MEDS: LOSARTAN POTASSIUM 50 MG TABLET 100 MG PO (08:25)
[2022-09-22] MEDS: POTASSIUM CHLORIDE 10 MEQ ER TABLET 40 MEQ PO (08:25)
[2022-09-22] MEDS: ENOXAPARIN SODIUM 40 MG/0.4 ML SYRINGE SUBQ (09:28)
--- NOTE | 2022-09-22 09:39 | CM.NOTE ---
Rounding with Dr. Silva. Pt. sitting up on edge of bed. No anticipated discharge needs. Dr discussing past occupation and pt. voiced she is retired from [employer] Anticipated discharge today.
--- NOTE | 2022-09-22 10:32 | PM.DS1 ---
DS: Providers Provider Date of admission: 09/20/22 07:55 Primary care physician: Ally Ibarra MD Consults: 09/20/22 09:55 Consult to General Surgeon Routine Consulting Provider: Augie Brothers 09/20/22 09:56 Occupational Therapy Eval and Treat Routine Physical Therapy Eval and Treat Routine Attending physician on discharge: Shaikh Shira Discharging clinician: Shaikh Shira Anticipated date of discharge: 09/22/22 DS: Diagnosis Discharge Diagnosis (1) SBO (small bowel obstruction): Assessment and plan: Resolved with conservative measures. Tolerating oral diet. No nausea or vomiting. Passing gas. Denies abd (2) Intractable nausea and vomiting: Assessment and plan: Resolved. Tolerating oral diet (3) Hypertension: Assessment and plan: Resume home oral meds. (4) Leukocytosis: Assessment and plan: Resolved. Likely reactive (5) Lactic acid acidosis: Assessment and plan: Due to volume depletion (6) CAD (coronary artery disease): Assessment and plan: Stable. No active ischemia noted. C/w home meds (7) HLD (hyperlipidemia): Assessment and plan: C/w statin (8) Hypothyroidism: Assessment and plan: C/w levothyroxine (9) Depression: Assessment and plan: Stable. No SI/HI. c/w citalopram DS: Summary Hospital Course Hospital Course: 77 y o p/w intractable nausea/vomiting, abdominal distention, abdominal pain along with inability to move bowels and pass gas, found to have SBO. She had NGT insertion and was managed conservatively with IV fluids, Pain and nausea control. She then passed pass movement on 09/21 and f/u XR abdominal series along with small bowel series showed resolution of SBO. Patient's NGT was removed and she was started on oral diet. She tolerated full liquid diet w/o any GI symptoms. She denies N/V or abdominal pain. She is passing gas. Stable for d/c. Patient educated on signs and symptoms that should prompt her to return to ED. Will d/c home with oral zofran as needed. Time spent discussing smoking cessation with patient: 3 to 10 minutes Status at Discharge Functional status at discharge: independent ambulation Overall status at discharge: patient is back to baseline Time Spent with Patient Time attestation: Total time spent providing and/or coordinating discharge services: Time spent: greater than 30 minutes Exam Constitutional Vital Signs, click to edit/add: Last Vital Signs Temp 97.9 F 09/22/22 06:00 Pulse 73 09/22/22 06:00 Resp 16 09/22/22 06:00 BP 130/73 H 09/22/22 06:00 Pulse Ox 91 L 09/22/22 06:00 O2 Del Method Room Air 09/22/22 06:00 O2 Flow Rate 2 09/20/22 20:58 FiO2 2 09/21/22 04:47 Documenting provider has reviewed patient's vital signs: yes Common normals: no apparent distress General appearance: cooperative and comfortable HENMT Common normals: normocephalic and head/scalp atraumatic Respiratory Common normals: normal respiratory effort, no retractions, no use of accessory muscles and clear to auscultation bilaterally GI Common normals: Normal to inspection, nondistended, normoactive bowel sounds present, soft to palpation, non-tender and no hepatosplenomegaly Extremity Common normals: normal to inspection and full ROM Neuro Common normals: CN's II-XII intact bilaterally, moves all extremities, no focal motor deficits and no sensory deficits noted Psych Common normals: thought process normal, cooperative, denies hallucinations, denies homicidal ideation and denies suicidal ideation DS: Data Data Completed and Pending Labs on day of discharge: Labs from last 24 hours 09/22/22 04:22 WBC 7.4 RBC 3.89 L Hgb 11.1 L Hct 34.5 L MCV 88.7 MCH 28.5 MCHC 32.2 RDW 13.2 Plt Count 160 MPV 11.4 Neut % (Auto) 68.8 Lymph % (Auto) 19.5 L [place] % (Auto) 8.0 Eos % (Auto) 3.1 Baso % (Auto) 0.3 Neut # (Auto) 5.1 Lymph # (Auto) 1.4 [place] # (Auto) 0.6 Eos # (Auto) 0.2 Baso # (Auto) 0.0 Abs Immat Gran (auto) 0.02 Imm/Tot Granulo (auto) 0.3 Sodium 143 Potassium 3.4 L Chloride 105 Carbon Dioxide 27.3 Anion Gap 14.1 BUN 8.0 Creatinine 0.65 Est GFR ( Amer) >60 Est GFR (Non-Af Amer) >60 BUN/Creatinine Ratio 12.3 Glucose 96 Calcium 8.4 L Total Bilirubin 0.4 AST 19 ALT 19 Alkaline Phosphatase 63 Total Protein 6.6 Albumin 3.1 L Globulin 3.5 Albumin/Globulin Ratio 0.9 Discharge Plan Discharge Disposition: Home, Self-Care Condition: Good Discharge Medications: New ondansetron 4 mg tablet,disintegrating 4 mg PO Q8H PRN (Reason: nausea and vomiting) 4 Days Qty: 10 0RF Continued citalopram 40 mg tablet 40 mg PO DAILY amlodipine 5 mg tablet 5 mg PO DAILY losartan-hydrochlorothiazide 100-25 mg tablet 1 tab PO DAILY simvastatin 20 mg tablet 20 mg PO DAILY aspirin [Adult Aspirin Regimen] 81 mg tablet,delayed release (DR/EC) 81 mg PO DAILY levothyroxine 50 mcg tablet 50 mcg PO DAILY Activity: increase activity as tolerated and resume usual activities as tolerated Diet: advance to your usual diet and other Diet Detail: soft diet and advance as tolerated Patient Instructions: Bowel Obstruction (DC) Forms: Portal Instructions Referrals: Shaikh Silva MD [Physician] - Follow Up Appointments: Nursing-please schedule follow up appointment with Dr. Silva in 7 days post discharge. Pt. wants to change him to her PCP.
[2022-09-22 13:35] VITALS: BP 145/75; PULSE 85; RESP 20; TEMP 36.4; O2SAT 92
--- NOTE | 2022-09-23 11:48 | CM.DCFOLLOWU ---
Person spoke with: patient How are you feeling? I am feeling ok How is your pain? not really having any Did you understand your discharge instructions? yes Do you have any questions about your discharge instructions? no Were you given any prescriptions at discharge? yes Were you able to get your prescriptions filled? no yet. my daughter is picking them up for me later today. Do you understand how to take your medications as ordered? yes Do you have any questions about your follow up appointment and do you plan to keep your follow up appointment? No I do not have questions and yes I plan on keeping appointment Is there anything else that you would like to discuss? Dr. Brothers mentioned something to me about something you drink besides Immodium that I could take, but I do not think it was ordered. Looked through Dr. Oliver note and it does look as though he discussed Questran with patient but did not order. I encouraged patient to contact Dr. Silva's office [facility] and spelled this medication for patient, to see if he would like to prescribe it for her and if so, hopefully her daughter could pick that up for her as well. Pt. voiced understanding and states she would do that. Questions/Comments/Concerns/Other: none
--- OUTSIDE RECORDS SUMMARY | 2023-03-16 16:29 | XMS_ITS | CCD ---
Author Name Unknown Address [address] [place] [address] Organization [facility] Care Team Providers Care Reservoir Engineering Manager Name Role Phone Joy BROWNE DORIS Attending Unavailable SACHA SCHROEDER Referring Unavailable ANDREE PETERS Admitting Unavailable KHURIANDREE Attending Unavailable VLASTARISJONATHAN Consulting Unavailable BERRIOCHOLORETTA Osborn Attending Unavailable BSHARA, UZMA Admitting Unavailable BSHARA, UZMA Attending Unavailable ALYAFI, [facility] Consulting Unavailable PROVIDER, UNKNOWN Attending Unavailable PROVIDER, UNKNOWN Admitting Unavailable SACHA SCHROEDER Primary Care Unavailable Sacha Schroeder MD Primary Care Provider Sacha Schroeder MD Primary Care Provider PAOLA, DR TREVOR Hamilton Admitting Unavailable GUEVARA, DR TREVOR Hamilton Attending Unavailable GUEVARA, DR TREVOR Hamilton Primary Care Unavailable ZIEBER, DR CAMILLE Pryor Consulting Unavailable GUEVARA, DR TREVOR Hamilton Consulting Unavailable GUEVARA, DR TREVOR Hamilton Primary Care Unavailable GUEVARA, DR TREVOR Hamilton Admitting Unavailable GUEVARA, DR TREVOR Hamilton Attending Unavailable GRANGER, DR MICHELE Vizcarra Consulting Unavailable GUEVARA, DR TREVOR Hamilton Consulting Unavailable GUEVARA, DR TREVOR Hamilton Admitting Unavailable GUEVARA, DR TREVOR Hamilton Attending Unavailable ZIEBER, DR CAMILLE Pryor Consulting Unavailable GUEVARA, DR TREVOR Hamilton Primary Care Unavailable GUEVARA, DR TREVOR Hamilton Consulting Unavailable REQUEST, NONE LISTED Attending Unavaila ble REQUEST, NONE LISTED Consulting Unavaila ble REQUEST, NONE LISTED Admitting Unavaila ble GUEVARA, DR TREVOR Hamilton Primary Care Unavailable Trevor Guevara Unavailable Sacha Schroeder MD Primary Care Provider SHAIKH BRINK Primary Care Physician Prince Cabello Attending Unavaila ble NONE, XXXX Referring Unavailable Prince Cabello Attending Unavaila fredo NONE, XXXX Referring Unavailable Prince Cabello Referring Unavaila Prince La Attending Unavaila Prince La Admitting UnavailMD Nacho Norman Consulting Unavailable Nacho ADAMS Consulting Unavailable Nacho ADAMS Consulting Unavailable Augie MCDOWELL Attending Unavailable SHAIKH BRINK Attending Unavailable LETHA GÓMEZ Attending Unavailable Allergies Allergy Classification Reported Allergen(s) Allergy Type Date of Onset Reaction(s) Facility (2 sources) Sulfonamides (Antibiotic); Translations: [SULFA (SULFONAMIDE ANTIBIOTICS)] Propensity to adverse reactions to drug (disorder) 03-28-19 04 [facility] Repository (2 sources) OTHER; Translations: [OTHER] Propensity to adverse reactions (disorder) 02-03-20 06 [facility] Repository (6 sources) atorvastatin; Translations: [ATORVASTATIN] Drug All[facility] ezetimibe; Translations: [EZETIMIBE] Drug Allergy 05-[facility]-19 [facility] ([facility] sources) Hmg-Coa Reductase Inhibitors (Statins); Translations: [STATINS] Propensity to adverse reactions to drug (disorder) 09-05-19 08 [facility] ([facility]) Nitroglycerin; Translations: [NITROGLYCERIN] Drug Allergy 06-18-19 16 [facility] ([facility] sources) pitavastatin; Translations: [PITAVASTATIN] Drug Allergy 09-02-19 17 [facility] ([facility] sources) rosuvastatin; Translations: [ROSUVASTATIN] Drug Allergy 09-04-19 16 [facility] Simvastatin; Translations: [SIMVASTATIN] Drug Allergy 06-18-19 16 [facility]) Sulfonamides (Antibiotic); Translations: [SULFA ANTIBIOTICS] Propensity to adverse reactions to drug (disorder) 09-02-19 08 [facility] ([facility] sources) BANDAGE TAPE; Translations: [BANDAGE TAPE] Propensity to adverse reactions (disorder) 09-17-19 15 [facility] source) Cephalosporins (Antibiotic) Drug allergy (disorder) [facility] Repository (1 source) Penicillins Drug allergy (disorder) 08-31-19 13 [facility] Repository (5 sources) Penicillin; Translations: [penicillin] Drug Allergy hives, Eruption of skin (disorder) [facility] Medications Current Medications Medication Drug Class(es) Dates Sig (Normalized) Sig (Original) [id number] 200 actuat albuterol 0.09 mg/actuat metered dose inhaler (15 sources) beta2-Adrenergic Agonist Start: 01-20-2018 take 2 puff(s) by mouth every four hours as needed for wheezing albuterol (PROVENTIL HFA) INHALATION HFA inhaler (VENTOLIN,PROAIR, PROVENTIL) 90mcg Inhale 2 Puffs by mouth every 4 hours as needed for Wheezing. 8.5 g 3 01/20/2018 Active Start: 09-04-2007 take 2 puff(s) by in halation every four hours as needed for wheezing albuterol (PROVENTIL, VENTOLIN) 90 MCG/ACT inhaler Inhale 2 Puffs every 4 hours as needed for Wheezing. 1 3 09/04/2007 Active albuterol (PROVE NTIL) (2.5 MG/3ML) 0.083% nebulizer solution 2.5 mg via nebulizer every 4 hours as needed. 0 Active Amlodipine (9 sources) Dihydropyridine Calcium Channel Barbara Start: 12-16-2022 amlodipine Refills(s ) 0 Start Date: 12/16/22 Status: Ordered Start: 09-20-2017 take 1 tablet by paulino th once daily amLODIPine (NORVASC) 5 MG tablet TAKE 1 TABLET BY MOUTH DAILY 90 Tablet 3 09/20/2017 Active take 1 tablet by paulino th every twelve hours amLODIPine Besylate 5 MG 1 tablet Orally twice a day Active Aspir-81 (1 source) Aspir-81 Active aspirin 81 mg delayed release oral tablet (8 sources) Platelet Aggregation Inhibitor, Nonsteroidal Anti-inflammatory Drug Start: 12-16-2022 aspirin 81 mg Oral EC Tab Refills(s) 0 Start Date: 12/16/22 Status: Ordered take 1 tablet by paulino th once daily at mealtime aspirin 81 MG tablet Indications: Aortic valve disorders , Heart valve replaced by other means , CAD (coronary artery disease) , Shortness of breath Take 81 mg by mouth daily. 0 Active buPROPion hydrochloride 75 mg oral tablet (5 sources) Aminoketone Start: 10-01-2016 take 1 tablet by mouth twice daily buPROPion (WELLBUTRIN) 75 MG tablet TAKE 1 TABLET BY MOUTH TWICE DAILY 180 Tablet 3 10/01/2016 Active carvedilol 25 mg oral tablet (5 sources) alpha-Adrenergic Barbara, beta-Adrenergic Barbara Start: 01-09-2018 take 1 tablet by mouth twice daily CARvedilol (COREG) 25 MG tablet TAKE 1 TABLET BY MOUTH TWICE DAILY 180 Tablet 3 01/09/2018 Active cholecalciferol 0.05 mg oral tablet (5 sources) Vitamin D Start: 11-20-2015 Cholecalciferol (VITAMIN D) 2000 UNITS TABS Take 4,000 Units by mouth daily. 30 Tablet 12 11/20/2015 Active Citalopram (4 sources) Serotonin Reuptake Inhibitor Start: 12-16-2022 citalopram Refills(s) 0 Start Date: 12/16/22 Status: Ordered take 1 tablet by mouth once delgado y Citalopram Hydrobromide 40 MG take 1 tablet by mouth once daily for 90 Active clindamycin 300 mg oral capsule (1 source) Lincosamide Antibacterial Start: 06-14-2022 take 1 capsule by mouth every twelve hours Clindamycin HCl 300 MG 1 capsule Orally every 12 hrs for 7 days May, Active clopidogrel 75 mg oral tablet (3 sources) P2Y12 Platelet Inhibitor Start: 08-02-2017 take 1 tablet by mouth once daily clopidogrel (PLAVIX) 75 MG tablet TAKE 1 TABLET BY MOUTH DAILY 270 Tablet 0 08/02/2017 Active furosemide 20 mg oral tablet (5 sources) Loop Diuretic Start: 10-11-2017 take 1 tablet by mouth once daily furosemide (LASIX) 20 MG tablet TAKE 1 TABLET BY MOUTH DAILY 100 Tablet 3 10/11/2017 Active glimepiride 1 mg oral tablet (5 sources) Sulfonylurea Start: 12-06-2017 take 2 tablets by mouth once daily at breakfast, then take 1 tablet by mouth once daily at dinner glimepiride (AMARYL) 1 MG tablet TAKE 2 TABLETS BY MOUTH DAILY with breakfast and take 1 tablet daily with dinner 540 Tablet 1 12/06/2017 Active hydroCHLOROthiazide 25 mg / losartan potassium 100 mg oral tablet (1 source) Thiazide Diuretic, Angiotensin 2 Receptor Barbara take 1 tablet by mouth every twenty-four hours Losartan Potassium-HCTZ 100-25 MG 1 tablet Orally Once a day Active hydrocortisone 25 mg/ml topical cream (1 source) Corticosteroid Start: 06-11-2022 Anusol-HC 2.5 % 1 application Externally Twice a day for 30 days May, Active Thyroxine (4 sources) l-Thyroxine Start: 12-16-2022 levothyroxine Refills(s) 0 Start Date: 12/16/22 Status: Ordered Start: 03-03-2022 take 1 tablet by paulino th once daily in the morning Levothyroxine Sodium 50 MCG 1 tablet in the morning on an empty stomach Orally Once a day for 90 days Feb, Active lisinopril 30 mg oral tablet (5 sources) Angiotensin Converting Enzyme Inhibitor Start: 03-29-2017 take 1 tablet by mouth once daily lisinopril (PRINIVIL, ZESTRIL) 30 MG tablet Take 1 Tablet by mouth daily. 90 Tablet 3 03/29/2017 Active Losartan (3 sources) Angiotensin 2 Receptor Barbara Start: 12-16-2022 losartan Refills(s) 0 Start Date: 12/16/22 Status: Ordered nitroglycerin 0.4 mg sublingual tablet (5 sources) Nitrate Vasodilator nitroglycerin (NITROSTAT) 0.4 MG sublingual tablet 0.4 mg by Sublingual route every 5 minutes as needed. Maximum of 3 tablets in 15 minutes. 0 Active omeprazole 20 mg delayed release oral capsule (5 sources) Proton Pump Inhibitor omeprazole (PRILOSEC) 20 MG capsule Indications: Other iron deficiency anemia , Unspecified essential hypertension , Shortness of breath Take 20 mg by mouth. 0 Active pitavastatin calcium 2 mg oral tablet (5 sources) HMG-CoA Reductase Inhibitor Start: 06-16-2016 take 1 tablet by mouth at bedtime Pitavastatin Calcium 2 MG TABS Take 1 Tablet by mouth at bedtime. 30 Tablet 3 06/16/2016 Active sertraline 100 mg oral tablet (5 sources) Serotonin Reuptake Inhibitor Start: 01-20-2018 take 1.5 tablets by mouth once daily sertraline (ZOLOFT) 100 MG tablet Take 1.5 Tablets by mouth daily. 135 Tablet 3 01/20/2018 Active Simvastatin (4 sources) HMG-CoA Reductase Inhibitor Start: 12-16-2022 simvastatin Refills(s) 0 Start Date: 12/16/22 Status: Ordered take 1 tablet by paulino every twenty-four hours Simvastatin 20 MG 1 tablet in the evenin g Orally Once a day Active tiotropium (5 sources) Anticholinergic Tiotropium Bromi de Monohydrate (SPIRIVA HANDIHALER INHALATION) Inhale. 0 Active triamcinolone acetonide 0.25 mg/ml topical cream (5 sources) Corticosteroid Start: 6 triamcinolone 0.025 % cream Apply topically 2 times daily. Apply thin layer to affected area. 1 Tube 4 07/30/2015 Active ubidecarenone 200 mg oral capsule (5 sources) Start: 6 take 1 capsule by mouth once daily Coenzyme Q10 200 MG CAPS Take 1 Capsule by mouth daily. 30 Capsule 12 09/04/2015 Active vitamin b12 0.1 mg oral tablet (5 sources) Vitamin B12 Start: 6 take 1 tablet by mouth once daily vitamin B-12 (CYANOCOBALAMIN) 100 MCG tablet TAKE 1 TABLET BY MOUTH DAILY 30 Tablet 6 04/11/2015 Active Problems Active Problems Problem Classification Problem Date Documented Da te Episodic/Chronic Acute myocardial infarction (6 sources) Non-ST elevation (NSTEMI) myocardial infarction; Translations: [Myocardial infarction] Onset: 06-16-2016 06-16-2016 Chronic Chronic kidney disease (1 source) Chronic kidney disease, stage 3 (moderate); Translations: [Chronic kidney disease, stage 3 (moderate)] Onset: 03-29-2018 Chronic Chronic obstructive pulmonary disease and bronchiectasis (6 sources) Chronic obstructive pulmonary disease with (acute) exacerbation; Translations: [Chronic obstructive lung disease] Onset: 06-28-2013 07-11-2015 Chronic Conduction disorders (5 sources) Right bundle branch block; Translations: [Unspecified right bundle-branch block] Onset: 09-11-2007 09-11-2007 Chronic Congestive heart failure; nonhypertensive (2 sources) Heart failure, unspecified; Translations: [Heart failure, unspecified] Onset: 03-24-2018 Chronic Coronary atherosclerosis and other heart disease (15 sources) Unstable angina; Translations: [Atherosclerotic heart disease of nez perce coronary artery with unstable angina pectoris] Onset: 06-12-2015 04-16-2021 Chronic Diabetes mellitus without complication (5 sources) Type 2 diabetes mellitus; Translations: [Type 2 diabetes mellitus without complications] 09-29-2015 Chronic Disorders of lipid metabolism (8 sources) Hyperlipidemia; Translations: [Hyperlipidemia, unspecified] Onset: 05-16-2003 07-11-2015 Chronic Disorders of teeth and jaw (1 source) Periapical abscess without sinus Episodic Diverticulosis and diverticulitis (5 sources) Diverticulitis of large intestine; Translations: [Diverticulitis of large intestine without perforation or abscess without bleeding] Onset: 02-23-2017 02-24-2017 Chronic Essential hypertension (12 sources) Essential (primary) hypertension; Translations: [Essential hypertension] Onset: 09-11-2007 06-17-2018 Chronic Fluid and electrolyte disorders (2 sources) Hyperkalemia; Translations: [Hypokalemia] Onset: 03-24-2018 Episodic Heart valve disorders (15 sources) H/O: heart valve recipient; Translations: [Presence of other heart-valve replacement] Onset: 09-11-2007 06-17-2018 Chronic Hypertension with complications and secondary hypertension (1 source) Hypertensive emergency; Translations: [Hypertensive emergency] Onset: 03-29-2018 Miscellaneous mental health disorders (1 source) Mental disorder, not otherwise specified; Translations: [Mental disorder, not otherwise specified] Onset: 03-24-2018 Chronic Nutritional deficiencies (1 source) Moderate protein-calorie malnutrition; Translations: [Malnutrition of moderate degree (HCC)] Onset: 07-07-2018 Chronic Other circulatory disease (1 source) Personal history of other diseases of the circulatory system; Translations: [History of hypertension] Onset: 06-29-2018 Episodic Other circulatory disease (4 sources) Other specified symptoms and signs involving the circulatory and respiratory systems; Translations: [OTH SPEC SX SIGNS INVLV CIRC RS] Onset: 01-20-2022 Episodic Other connective tissue disease (1 source) Pain in left foot; Translations: [Pain in left foot] Onset: 06-06-2018 Episodic Other diseases of bladder and urethra (5 sources) Vesicocolic fistula; 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] Onset: 02-23-2017 04-16-2021 Chronic Other liver diseases (5 sources) Steatosis of liver; Translations: [Fatty (change of) liver, not elsewhere classified] Onset: 01-31-2017 04-16-2021 Chronic Other screening for suspected conditions (not mental disorders or infectious disease) (1 source) Encounter for screening mammogram for malignant neoplasm of breast; Translations: [ENC SCR MAMMO MALIG NEOPLASM BREAST] Onset: 01-25-2022 Episodic Other skin disorders (4 sources) Localized swelling, mass and lump, neck; Translations: [LOCALIZED SWELLING MASS AND LUMP NECK] Onset: 03-30-2022 Episodic Substance-related disorders (1 source) Nicotine dependence, unspecified, uncomplicated; Translations: [Nicotine dependence, unspecified, uncomplicated] Onset: 03-29-2018 Chronic Thyroid disorders (6 sources) Non-toxic uninodular goiter; Translations: [Nontoxic single thyroid nodule] Onset: 03-22-2014 06-17-2018 Chronic Past or Other Problems Problem Classification Problem Date Documented Da te Episodic/Chronic Abdominal pain (5 sources) Indigestion; Translations: [Epigastric pain] Onset: 01-31-2017 01-31-2017 Episodic Acute and unspecified renal failure (1 source) Acute kidney failure, unspecified; Translations: [Acute kidney failure, unspecified] Onset: 03-29-2018 Episodic Biliary tract disease (5 sources) Biliary calculus; Translations: [Calculus of gallbladder without cholecystitis without obstruction] Onset: 08-07-2013 08-07-2013 Episodic Conditions associated with dizziness or vertigo (15 sources) Vertigo; Translations: [Dizziness and giddiness] Onset: 06-28-2013 06-28-2013 Episodic Coronary atherosclerosis and other heart disease (1 source) History of cardiac catheterization; Translations: [Presence of coronary angioplasty implant and graft] Onset: 05-20-2016 05-20-2016 Episodic Deficiency and other anemia (5 sources) Anemia; Translations: [Anemia, unspecified] Onset: 01-31-2017 01-31-2017 Episodic Gastrointestinal hemorrhage (10 sources) Melena; Translations: [Melena] Onset: 02-20-2014 02-20-2014 Episodic Menstrual disorders (5 sources) Disorder of female genital organs; Translations: [Other specified irregular menstruation] Onset: 05-02-2014 Resolved: 05-02-2014 05-02-2014 Chronic Nonspecific chest pain (6 sources) Chest pain, unspecified; Translations: [Chest pain] Onset: 06-14-2016 06-14-2016 Episodic Other injuries and conditions due to external causes (5 sources) Late effect of injury; Translations: [Late effect of injury] Onset: 10-10-2015 10-10-2015 Episodic Other liver diseases (1 source) Abnormal levels of other serum enzymes; Translations: [Abnormal levels of other serum enzymes] Onset: 03-24-2018 Episodic Other non-traumatic joint disorders (5 sources) Hand joint stiff; Translations: [Stiffness of unspecified hand, not elsewhere classified] Onset: 10-10-2015 10-10-2015 Episodic Other skin disorders (5 sources) Adherent scar; Translations: [Scar conditions and fibrosis of skin] Onset: 10-10-2015 10-10-2015 Episodic Rehabilitation care; fitting of prostheses; and adjustment of devices (5 sources) Patient encounter status; Translations: [Other physical therapy] Onset: 04-03-2014 04-03-2014 Episodic Residual codes; unclassified (1 source) Tobacco use; Translations: [Tobacco use] Onset: 03-24-2018 Episodic Residual codes; unclassified (5 sources) Other specified health status; Translations: [Other drug allergy] Onset: 09-01-2016 09-01-2016 Episodic Respiratory failure; insufficiency; arrest (adult) (1 source) Acute respiratory failure with hypoxia; Translations: [Acute respiratory failure with hypoxia] Onset: 03-24-2018 Episodic Syncope (5 sources) Vasovagal symptom; Translations: [Syncope and collapse] Onset: 07-11-2015 07-11-2015 Episodic Results Test Name Value Interpretation Reference Range Facility Heart and Vascular Office/[facility] Noteon 01-27-2023 Heart and Vascular Office/Clinic Note Chief Complaint here for test results History of Present Illness Sarina Villegas is a 77-year-old female with a history of coronary artery disease, hypertension, and hyperlipidemia, currently clinically stable. The patient reports that she is doing well. Her most recent carotid and echocardiogram assessments were within normal parameters. She denies any chest pain or dyspnea. She reports that she has not undergone a stress test recently due to the discomfort associated with her hip condition. She underwent a carotid artery ultrasound, which identified a spot in a lymph node. She has an appointment scheduled with her physician in a couple of weeks. The patient initiated a regimen of twice-daily amlodipine administration, reporting an improvement in her symptoms. Her blood pressure today was normal. 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 She has a history of a spot on her eye. Review of Systems Constitutional: no fever, no sweats, no weakness Skin: no rash, no lesions, no bruising/petechiae ENMT: no sore throat, no congestion, no hoarseness Respiratory: no shortness of breath, no cough, no orthopnea, no wheezing Cardiovascular: no chest pain, no palpitations, no edema Gastrointestinal: no nausea, no vomiting, no diarrhea, no GI bleeding Genitourinary: no anuria/oliguria no hematuria Musculoskeletal: no back pain, no trauma Neurologic: no headache, no dizziness, no numbness, no weakness Psychiatric: no sleeping problems, no irritability, no anxiety/depression. Heme/Lymph: no bleeding tendency, no bruising tendency Allergy/Immunologic: no recurrent infections, no impaired immunity Additional ROS info: Except as noted in the above Review of Systems and in the History of Present Illness all other systems have been reviewed and are negative or noncontributory Physical Exam Vitals & Measurements HR: 82(Peripheral) BP: 134/82 SpO2: 98% HT: 63 in HT: 160 cm WT: 78.5 kg WT: 172.7 lb BMI: 30.66 General: alert, no acute distress Skin: warm, dry intact Head: atraumatic, normocephalic Neck: trachea midline, no JVD, no bruit Eye: normal conjunctiva, sclera clear ENMT: oral mucosa moist Cardiovascular: regular rate and rhythm, no murmur, normal peripheral perfusion Respiratory: lungs CTA, respirations non labored Chest wall: no deformity. Gastrointestinal: soft, non-distended, no tenderness, no guarding. Back: no tenderness, normal ROM, normal alignment. Extremities: no edema, no deformity, no trauma Neurological: oriented x 4, LOC appropriate for age, sensation equal & normal bilaterally, speech normal Psychiatric: cooperative, affect appropriate for age, normal judgement, normal psychiatric thoughts. Assessment/Plan Sarina Villegas is a 77-year-old female with a history of coronary artery disease, hypertension, hyperlipidemia, currently clinically stable. The carotid test was negative. The Echocardiogram looked good. 1. Coronary artery disease. Stable. No angina. Currently on aspirin, statin, and blood pressure management. 2. Hypertension. Well controlled on amlodipine and losartan. 3. Hyperlipidemia. Managed by statin. Follow up in 6 months. ATTESTATION: Portions of this record may have been created with voice recognition artificial intelligence software, specifically [employer] and or [employer]. Substitutions may have occurred due to the inherent limitations of voice recognition and artificial intelligence software. Documentation services were performed after patient or guardian consented to allow [facility] to record this visit. BERTRAM international trade specialist and provider reviewed before signing. BERTRAM: Mary Gardner Follow-up No qualifying data available Problem List/Past Medical History Ongoing No qualifying data Historical Coronary artery disease Hyperlipidemia Hypertension Hypertension Procedure/Surgical History Cholecystectomy. Medications amlodipine aspirin 81 mg Oral EC Tab citalopram levothyroxine losartan simvastatin Allergies penicillin (Rash) Social History Tobacco Former smoker, quit more than 30 days ago Tobacco Use:., 01/27/2023 [facility] Comment on above: Result Comment: Elec tronically Signed By: Destiney DE LEÓN, Prince Castro\.br\Date and Time Signed: 01/27/23 19:48 EST\.br\Electronically Co-Signed By: Mary Gardner\.br\Date and Time Co-Signed: 01/27/23 15:10 EST Physician Orderon 01-27-2023 Physician Order [id number]# [id number] [facility] Heart and Vascular Office/Cl inic Noteon 01-23-2023 Heart and Vascular Office/Clinic Note Chief Complaint here to establish care History of Present Illness Sarina Villegas is a 77-year-old female patient here today to established care. She had a stent placed in 2009 or 2010. She reports that she has been doing well since then, but she has uncontrolled blood pressure. She notices that her blood pressure has improved since taking amlodipine 5 mg once daily. The prescription notes twice a day but she was taking it once a day at morning because she believes it was bothering her like having trouble sleeping. She denies chest pain or trouble breathing. She notes that when she is lying down she gasping for breathing. The patient mentions that her eye DrCeline have seen spot behind her left eye. She had a spot on a lymph node. She had her carotids checked in the past, which shows a minimal blockage in her neck. He underwent echocardiogram probably more than 5 years ago Review of Systems Constitutional: no fever, no sweats, no weakness Skin: no rash, no lesions, no bruising/petechiae ENMT: no sore throat, no congestion, no hoarseness Respiratory: no shortness of breath, no cough, no orthopnea, no wheezing Cardiovascular: no chest pain, no palpitations, no edema Gastrointestinal: no nausea, no vomiting, no diarrhea, no GI bleeding Genitourinary: no anuria/oliguria no hematuria Musculoskeletal: no back pain, no trauma Neurologic: no headache, no dizziness, no numbness, no weakness Psychiatric: no sleeping problems, no irritability, no anxiety/depression. Heme/Lymph: no bleeding tendency, no bruising tendency Allergy/Immunologic: no recurrent infections, no impaired immunity Additional ROS info: Except as noted in the above Review of Systems and in the History of Present Illness all other systems have been reviewed and are negative or noncontributory Physical Exam Vitals & Measurements HR: 76(Peripheral) BP: 140/86 SpO2: 92% HT: 63 in HT: 160 cm WT: 79.8 kg WT: 175.56 lb BMI: 31.17 General: alert, no acute distress Neck: Trachea midline, no JVD, mild murmur on right side of bruit Cardiovascular: regular rate and rhythm, no murmur, normal peripheral perfusion Respiratory: Lungs CTA, respirations non labored Extremities: no edema, no deformity, no trauma Neurological: oriented x 4, LOC appropriate for age, sensation equal & normal bilaterally, speech normal Skin: warm, dry intact Assessment/Plan CAD (coronary artery disease) (I25.10: Atherosclerotic heart disease of nez perce coronary artery without angina pectoris) Sarina Villegas is a 77-year-old female with a history of CAD, remote stent in 2010, normal left ventricular systolic function, hypertension, and hyperlipidemia. She had been followed by Dr. Ruffin until recently and he has retired. She has a history of some mild carotid disease as well as what sounds like a Hollenhorst plaque. She also has uncontrolled blood pressure. I am going to go ahead and check an echocardiogram to evaluate for left ventricular function. The patient is opting against a stress test at this time. For now, we will continue to follow symptoms. I am increasing her amlodipine for hypertension. We will get a carotid duplex to evaluate the right carotid bruit that I hear. Follow up in 6 weeks in [place]. Portions of this record may have been created with voice recognition artificial intelligence software, specifically [employer], [employer] and or [employer]. Substitutions may have occurred due to the inherent limitations of voice recognition and artificial intelligence software. Documentation services were performed after patient or guardian consented to allow [employer] to record this visit. BERTRAM international trade specialist and provider reviewed before signing. BERTRAM: Abran Nick. Follow-up No qualifying data available Problem List/Past Medical History Ongoing No qualifying data Historical Coronary artery disease Hyperlipidemia Hypertension Hypertension Procedure/Surgical History Cholecystectomy. Medications amlodipine aspirin 81 mg Oral EC Tab citalopram levothyroxine losartan simvastatin Allergies penicillin (Rash) Social History Tobacco Former smoker, quit more than 30 days ago Tobacco Use:., 12/16/2022 [facility] Comment on above: Result Comment: Elec tronically Signed By: Destiney DE LEÓN, Prince Castro\.br\Date and Time Signed: 01/23/23 19:23 EST\.br\Electronically Co-Signed By: Michelle Nick\.br\Date and Time Co-Signed: 12/16/22 14:43 EDT\.br\Electronically Co-Signed By: Michelle Nick\.br\Date and Time Co-Signed: 12/16/22 14:44 EDT Consent for Treatmenton 11-0 Consent for Treatment [id number] .00TIFF [facility] US Carotid Duplex Bilateralo n 01-05-2023 US Carotid Duplex Bilateral Exam Date/Time: 01/05/2023 10:29 EST Reason for Exam: R09.89;Bruit Report IMPRESSION: NEGATIVE STUDY. NO EVIDENCE OF SIGNIFICANT STENOSIS. CLINICAL HISTORY: Bruit, R09.89 COMPARISON: NONE. COMMENT: No plaques are identified at the carotid bifurcation. There is antegrade blood flow in the right and left vertebral arteries in the neck. On Doppler images, the peak systolic velocity measurements in centimeters per second are as follows: Right proximal common carotid artery is 72.9 / 18.9, right distal common carotid artery is 67.3 / 18.2, right proximal internal carotid artery is 106.0 / 24.2, right mid internal carotid artery is 101.0 / 35.8, right distal internal carotid artery is 83.3 / 30.0, right external carotid artery is 79.2 cm/s, left proximal common carotid artery is 77.8 / 21.0, left distal common carotid artery is 79.2 / 23.5, left proximal internal carotid artery is 101.0 / 28.1, left mid internal carotid artery is 74.3 / 22.4, left distal internal carotid artery is 79.2 / 23.5, left external carotid artery is 79.9 cm/s. The peak systolic internal carotid to common carotid artery ratio on the right is 1.6 and on the left is 1.3. Optimization of duplex velocity criteria for diagnosis of internal carotid artery (ICA) stenosis: A report of the [employer] Accreditation Commission (IAC) Vascular Testing Division Carotid Diagnostic Criteria Committee. Vascular Medicine 2020; https://journals.rylee pub.com/doi/full/10.1 [id number] Ordering Provider: Prince Cabello FINAL REPORT Dictated: 01/05/2023 10:56 am Carlos Mcmillan MD, V. Signed (Electronic Signature): 01/05/2023 10:56 am Signed by: Carlos Mcmillan MD, V. Transcribed by: SALVATORE Technologist: [place] [facility] Transfer Inon 12-22-2022 Transfer In [id number] .00TIFF [facility] Transfer In [id number] .00TIFF [facility] Insurance Correspondenceon Insurance Correspondence [id number]# 1.00TIFF [facility] Physician Orderon 12-17-2022 Physician Order [id number]# 1.00TIFF [facility] Consent for Treatmenton 11-28 Consent for Treatment [id number] .00TIFF Normal [facility] US THYROIDon 03-30-2022 US THYROID EXAMINATION: US THYROID HISTORY: Mass of neck COMPARISON: 01/20/2022, 02/12/2022 TECHNIQUE: Sonographic images of the thyroid gland were obtained. FINDINGS: The right thyroid lobe measures 4.0 x 1.6 x 1.4 cm. Heterogeneous echotexture with multiple nodules measuring up to 7 mm. The thyroid isthmus measures 2 mm. The left thyroid lobe measures 4.8 x 1.2 x 1.4 cm, heterogeneous echotexture with scattered nodules measuring up to 5 mm. Identified in the left neck anterior to the carotid bifurcation is a 1.8 x 1.6 x 0.9 cm area of oval hypoechogenicity, isovascular to the surrounding soft tissues Most suspicious thyroid nodule: Right mid lobe. 0.7 x 0.5 x 0.4 cm. Mixed solid and cystic, hypoechoic, smooth, no calcifications. TR 3 IMPRESSION: 7 mm right thyroid TR 3 nodule 1.8 cm carotid bifurcation mass, consider a carotid carotid body tumor or atypical lymph node TI-RADS: The [employer] TI-RADS committee's white paper recommendations for thyroid lesions classified as TR3 (mildly suspicious) are listed below: > 1.5 cm. Follow-up ultrasound in 1, 3, and 5 years. > 2.5 cm. FNA. J. Am Janelle Radiol 2017;14:587-595. Electronically authenticated by: MICHELE GIBSON Date: 2022-03-30 11:59 Normal [facility] CT NECK ST W CONon [address] W CON EXAMINATION: CT NECK ST W CON HISTORY: Mass of neck ; left neck mass versus lymph node COMPARISON: Ultrasound carotid artery bilateral 01/20/2022 TECHNIQUE: Axial, Coronal, and Sagittal CT images created with IV contrast. Dose reduction techniques were achieved by using automated exposure control and/or adjustment of mA and/or kV according to patient size and/or use of iterative reconstruction technique. FINDINGS: NASOPHARYNX: No asymmetry of the fossae of Rosenmuller and torus tubarius. ORAL CAVITY: No visible mass. OROPHARYNX: No asymmetry of the facial and lingual tonsils. HYPOPHARYNX: No mass or other visible lesion. LARYNX: No mass or asymmetry of the vocal cords. SINUSES: No significant fluid or mucosal thickening. NECK GLADS: No visible abnormality of the parotid, submandibular, and thyroid glands. LYMPH NODES: 1.5 x 1.3 x 0.5 cm lymph node versus mass anterior to the carotid artery near its bifurcation. Small lymph node in corresponding area anterior to right carotid artery, suggesting this represents a slightly enlarged lymph node. VASCULATURE: Moderate-marked atherosclerotic disease of the carotid bulbs. BONES: C5-C6, C6-C7 moderate degenerative disc disease. OTHER: No additional imaging findings. IMPRESSION: 1. Left pre-carotid soft tissue structure favors a lymph node, possibly reactive. Soft tissue mass is felt less likely. Follow-up ultrasound in 1-2 months to evaluate for stability versus change is recommended. Electronically authenticated by: CAMILLE CARTER Date: 2022-02-12 18:07 Normal [facility] CBC AUTO DIFFon 01-20-2022 BASO # 0.1 103/ul Normal 0.0-0.1 [facility] Comment on above: Performed By: #### D ATCBC #### [facility] [address] [place] [address] Dr. Cabrera Gifford Basophils/100 WBC (Bld) 0.7 % Normal 0.2-2.0 [facility] Comment on above: Performed By: #### D ATCBC #### [facility] [address] [place] [address] Dr. Cabrera Gifford EO # 0.3 103/ul Normal 0.0-0.7 [facility] Comment on above: Performed By: #### D ATCBC #### [facility] [address] [address] [address] Cabrera Gifford Eosinophils/100 WBC (Bld) 3.7 % Normal 0.9-7.0 [facility] Comment on above: Performed By: #### D ATCBC #### [facility] [address] [place] [address] Dr. Cabrera Gifford Erythrocyte distribution width (RBC) [Ratio] 12.5 % Normal 11.0-15.0 [facility] Comment on above: Performed By: #### D ATCBC #### [facility] [address] [place] [address] Dr. Cabrera Gifford Hematocrit (Bld) [Volume fraction] 38.9 % Normal 36.0-48.0 [facility] Comment on above: Performed By: #### D ATCBC #### [facility] [address] [address] [address] Cabrera Gifford Hemoglobin (Bld) [Mass/Vol] 12.8 g/dL Normal 12.0-16.0 [facility] Comment on above: Performed By: #### D ATCBC #### [facility] [address] [address] [address] Cabrera Gifford IG # 0.02 10e3/ul Normal 0.00-0.03 [facility] Comment on above: Performed By: #### D ATCBC #### [facility] [address] [place] [address] Dr. Cabrera Gifford IG % 0.3 % Normal 0.0-0.5 [facility] Comment on above: Performed By: #### D ATCBC #### [facility] [address] [place] [address] Dr. Cabrera Gifford LYMPH # 1.4 103/ul Normal 1.2-3.8 [facility] Comment on above: Performed By: #### D ATCBC #### [facility] [address] [place] [address] Dr. Cabrera Gifford Lymphocytes/100 WBC (Bld) 20.4 % Critically low 20.5-60.0 [facility] Comment on above: Performed By: #### D ATCBC #### [facility] [address] [place] [address] Dr. Cabrera Gifford MCH (RBC) [Entitic mass] 29.1 pg Normal 26.7-34.0 [facility] Comment on above: Performed By: #### D ATCBC #### [facility] [address] [place] [address] Dr. Cabrera Gifford MCHC (RBC) [Mass/Vol] 32.9 g/dL Normal 29.9-35.2 [facility] Comment on above: Performed By: #### D ATCBC #### [facility] [address] [address] [address] Cabrera Gifford MCV (RBC) [Entitic vol] 88.4 fL Normal 81.0-99.0 [facility] Comment on above: Performed By: #### D ATCBC #### [facility] [address] [address] [address] Cabrera Gifford MONO # 0.6 103/ul Normal 0.3-0.8 [facility] Comment on above: Performed By: #### D ATCBC #### [facility] [address] [place] [address] Dr. Cabrera Gifford Monocytes/100 WBC (Bld) 8.2 % Normal 1.7-12.0 [facility] Comment on above: Performed By: #### D ATCBC #### [facility] [address] [place] [address] Dr. Cabrera Gifford NEUT # 4.5 103/ul Normal 1.4-6.5 [facility] Comment on above: Performed By: #### D ATCBC #### [facility] [address] [place] [address] Dr. Cabrera Gifford Neutrophils/100 WBC (Bld) 66.7 % Normal 43.0-75.0 [facility] Comment on above: Performed By: #### D ATCBC #### [facility] [address] [place] [address] Dr. Cabrera Gifford Platelet mean volume (Bld) [Entitic vol] 10.8 fL Normal 9.5-13.5 [facility] Comment on above: Performed By: #### D ATCBC #### [facility] [address] [place] [address] Dr. Cabrera Gifford PLT 210 103/ul Normal 150-450 [facility] Comment on above: Performed By: #### D ATCBC #### [facility] [address] [place] [address] Dr. Cabrera Gifford RBC 4.40 106/ul Normal 4.20-5.40 [facility] Comment on above: Performed By: #### D ATCBC #### [facility] [address] [place] [address] Dr. Cabrera Gifford WBC 6.8 103/ul Normal 4.0-11.0 [facility] Comment on above: Performed By: #### D ATCBC #### [facility] [address] [address] [address] Cabrera Gifford EDWIN- BMP WITH LIPIDon 2021 Anion gap [Moles/Vol] 11.8 mmol/L Normal [facility] Comment on above: Performed By: #### D ATBMP #### [facility] [address] [address] [address] Cabrera Gifford Calcium [Mass/Vol] 9.4 mg/dL Normal 8.5-10.[address] [facility] Comment on above: Performed By: #### D ATBMP #### [facility] [address] [address] [address] Cabrera Gifford Chloride [Moles/Vol] 102 mmol/L Normal 98-107 [facility] Comment on above: Performed By: #### D ATBMP #### [facility] [address] [address] [address] Cabrera Gifford Cholesterol [Mass/Vol] 161 mg/dL Normal <=200 [facility] Comment on above: Performed By: #### D ATBMP #### [facility] [address] [address] [address] Cabrera Gifford Cholesterol in HDL [Mass/Vol] 66 mg/dL Critically high 40-60 [facility] Comment on above: Performed By: #### D ATBMP #### [facility] [address] [address] [address] Cabrera Gifford Cholesterol in LDL [Mass/Vol] 77.2 mg/dL Normal [facility] Comment on above: Performed By: #### D ATBMP #### [facility] [address] [address] [address] Cabrera Gifford CO2 [Moles/Vol] 30.9 mmol/L Normal 21.0-32.0 [facility] Comment on above: Performed By: #### D ATBMP #### [facility] [address] [address] [address] Cabrera Gifford Creatinine [Mass/Vol] 0.79 mg/dL Normal 0.55-1.02 [facility] Comment on above: Performed By: #### D ATBMP #### [facility] [address] [address] [address] Cabrera Gifford EGFR-AF CYPRIOT >60 Normal >=60 [facility] Comment on above: Performed By: #### D ATBMP #### [facility] [address] [address] [address] Cabrera Gifford EGFR-NON AF CYPRIOT >60 Normal >=60 [facility] Comment on above: Performed By: #### D ATBMP #### [facility] [address] [address] [address] Cabrera Gifford Glucose [Mass/Vol] 103 mg/dL Normal 74-106 [facility] Comment on above: Performed By: #### D ATBMP #### [facility] [address] [address] [address] Cabrera Gifford HDL NORMAL > or = 60 mg/dl - LO W CARDIOVASCULAR RISK <40 mg/dl - HIGH CARDIOVASCULAR RISK Normal [facility] Comment on above: Performed By: #### D ATBMP #### [facility] [address] [address] [address] Cabrera Gifford LDL CALC NORMAL SEE BELOW Normal [facility] Comment on above: Result Comment: <100 mg/dl OPTIMAL 100 - 129 mg/dl NEAR OR ABOVE OPTIMAL 130 - 159 mg/dl BORDERLINE HIGH 160 - 189 mg/dl HIGH >190 mg/dl VERY HIGH Performed By: #### D ATBMP #### [facility] [address] [address] [address] Cabrera Gifford Potassium [Moles/Vol] 3.7 mmol/L Normal 3.5-5.1 [facility] Comment on above: Performed By: #### D ATBMP #### [facility] [address] [address] [address] Cabrera Gifford Sodium [Moles/Vol] 141 mmol/L Normal 136-[address] [facility] Comment on above: Performed By: #### D ATBMP #### [facility] [address] [address] [address] Cabrera Gifford Triglyceride [Mass/Vol] 89 mg/dL Normal <=150 [facility] Comment on above: Performed By: #### D ATBMP #### [facility] [address] [place], [place] [address] Dr. Cabrera Gifford Urea nitrogen [Mass/Vol] 17.0 mg/dL Normal 7.0-18.0 [facility] Comment on above: Performed By: #### D ATBMP #### [facility] [address] [address] [address] Cabrera Gifford Urea nitrogen/Creatinine [Mass ratio] 21.5 mg/mg Normal [facility] Comment on above: Performed By: #### D ATBMP #### [facility] [address] [address] [address] Cabrera Gifford VLDL CALC 17.8 mg/dL Normal [facility] Comment on above: Performed By: #### D ATBMP #### [facility] [address] [address] [address] Cabrera Gifford MG MAMM SCREEN 3D EVIE CADon 01-20-2022 MG MAMM SCREEN 3D EVIE CAD Patient: SARINA VILLEGAS Exam Date: 01/20/2022 : 1945 Gender:F Ordering : DR TREVOR GUEVARA M.D. Admission #: [id number] Family : Order #: [id number] CLICK HERE TO VIEW EXAM RADIOLOGY REPORT PROCEDURE: MAMMOGRAM SCREENING 3D BILATERAL CAD COMPARISON: MG MAMM SCREEN EVIE W CAD, 09/26/2019. MG MAMM SCREEN EVIE W CAD, 09/20/2018. INDICATIONS: Screening mammography Calculator Name NCI Breast Cancer Risk Assessment Tool 5 Year Breast Cancer Risk 2.40% Lifetime Breast Cancer Risk 5.50% Personal Breast Cancer No Personal Ovarian Cancer No Treatments None Family Cancers None LOCATION: [facility] BREAST COMPOSITION: Scattered areas fibroglandular density. FINDINGS: DIAGNOSTIC CATEGORY 2--BENIGN FINDING: RIGHT BREAST: No significant suspicious finding. Stable, chronic scattered small asymmetries and tiny calcifications. No significant change has occurred. LEFT BREAST: No significant suspicious finding. Stable, chronic scattered small asymmetries and tiny calcifications. No significant change has occurred. RECOMMENDATIONS: ROUTINE MAMMOGRAM AND CLINICAL EVALUATION IN 12 MONTHS. PLEASE NOTE: A NORMAL MAMMOGRAM DOES NOT EXCLUDE THE POSSIBILITY OF BREAST CANCER. A CLINICALLY SUSPICIOUS PALPABLE LUMP SHOULD BE BIOPSIED. Dictated by: Camille Carter M.D. on 01/20/2022 at 13:25 Approved by: Camille Carter M.D. on 01/20/2022 at 13:29 Normal [facility] US CAROTID ART BILon 022 US CAROTID ART EVIE EXAMINATION: US CAROTID ART EVIE HISTORY: Cardiovascular symptoms ; right carotid bruit; visual disturbance COMPARISON: No relevant comparison available. TECHNIQUE: Duplex Doppler ultrasound analysis of carotid and vertebral arteries. . Bilateral carotid arterial duplex examination was performed using B-mode, color flow and spectral analysis. Carotid stenosis is reported according to validated velocity parameters, similar to NASCET criteria. FINDINGS: RIGHT CAROTID ARTERY: Moderate plaque within carotid bulb causing mild narrowing. RIGHT VERTEBRAL: Antegrade flow. Subclavian: PSV: 128.5 cm/s EDV: 0.0 cm/s CCA: Prox: PSV: 81.2 cm/s EDV: 20.1 cm/s Mid: PSV: 96.9 cm/s EDV: 26.0 cm/s Distal: PSV: 73.3 cm/s EDV: 24.0 cm/s BULB: PSV: 55.6 cm/s EDV: 18.1 cm/s ICA: Prox: PSV: 93.0 cm/s EDV: 16.2 cm/s Mid: PSV: 118.6 cm/s EDV: 35.9 cm/s Distal: PSV: 67.3 cm/s EDV: 26.0 cm/s ECA: PSV: 85.1 cm/s EDV: 20.1 cm/s VERTEBRAL: PSV: 41.7 cm/s EDV: 13.2 cm/s ICA/CCA ratio: PSV: 1.2 EDV: 1.4 LEFT CAROTID ARTERY: Moderate plaque within carotid bulb causing mild narrowing. LEFT VERTEBRAL: Antegrade flow. Subclavian: PSV: 72.7 cm/s EDV: 0.0 cm/s CCA: Prox: PSV: 69.8 cm/s EDV: 21.9 cm/s Mid: PSV: 76.2 cm/s EDV: 21.9 cm/s Distal: PSV: 65.8 cm/s EDV: 20.6 cm/s BULB: PSV: 68.4 cm/s EDV: 24.4 cm/s ICA: Prox: PSV: 109.7 cm/s EDV: 37.0 cm/s Mid: PSV: 143.8 cm/s EDV: 43.9 cm/s Distal: PSV: 84.6 cm/s EDV: 31.3 cm/s ECA: PSV: 112.2 cm/s EDV: 21.5 cm/s VERTEBRAL: PSV: 63.3 cm/s EDV: 19.3 cm/s ICA/CCA ratio: PSV: 1.9 EDV: 2.0 IMPRESSION: 1. 0-49% flow stenosis within the right and left carotid arteries despite moderate plaque within the carotid bulbs. 2. Prominent lymph node versus small mass within the left neck, 1.9 x 0.8 x 0.7 cm; no appreciable fatty hilum or central blood flow. Consider CT neck soft tissue with IV contrast for evaluation of neck if clinically indicated. Electronically authenticated by: CAMILLE CARTER Date: 2022-01-20 16:26 Normal [facility] CNCOon 07-10-2018 CNCO Letter Text Normal [facility] CBC and Differentialon 07-07 Abs Baso <0.03 Normal <0.11 [facility] Comment on above: Performed By: #### P TT, NTBNP, HSTNT, CBCDIF, PT, CKCKMB, CMP #### [place] [address] Abs [place] 0.92 k/uL High <0.87 [facility] Comment on above: Performed By: #### P TT, NTBNP, HSTNT, CBCDIF, PT, CKCKMB, CMP #### [place] [address] Abs Neut 9.65 k/uL High 1.45-7.50 [facility] Comment on above: Performed By: #### P TT, NTBNP, HSTNT, CBCDIF, PT, CKCKMB, CMP #### [place] [address] Basophils/100 WBC (Bld) 0.0 % Normal [facility] Comment on above: Performed By: #### P TT, NTBNP, HSTNT, CBCDIF, PT, CKCKMB, CMP #### [place] [address] DTYPE Auto Diff Normal [facility] Comment on above: Performed By: #### P TT, NTBNP, HSTNT, CBCDIF, PT, CKCKMB, CMP #### [place] [address] Eosinophils #/vol (Bld) 0.15 10*3/uL Normal <0.46 [facility] Comment on above: Performed By: #### P TT, NTBNP, HSTNT, CBCDIF, PT, CKCKMB, CMP #### [place] [address] Eosinophils/100 WBC (Bld) 1.2 % Normal [facility] Comment on above: Performed By: #### P TT, NTBNP, HSTNT, CBCDIF, PT, CKCKMB, CMP #### [place] [address] Erythrocyte distribution width Ratio (RBC) 14.6 % Normal 11.5-15.0 [facility] Comment on above: Performed By: #### P TT, NTBNP, HSTNT, CBCDIF, PT, CKCKMB, CMP #### [place] [address] Hematocrit Volume Fraction (Bld) 38.5 % Normal 36.0-46.0 [facility] Comment on above: Performed By: #### P TT, NTBNP, HSTNT, CBCDIF, PT, CKCKMB, CMP #### [place] [address] Hemoglobin mass conc (Bld) 12.0 g/dL Normal 11.5-15.5 [facility] Comment on above: Performed By: #### P TT, NTBNP, HSTNT, CBCDIF, PT, CKCKMB, CMP #### [place] [address] Lymphocytes #/vol (Bld) 1.66 10*3/uL Normal 1.00-4.00 [facility] Comment on above: Performed By: #### P TT, NTBNP, HSTNT, CBCDIF, PT, CKCKMB, CMP #### [place] [address] Lymphocytes/100 WBC (Bld) 13.4 % Normal [facility] Comment on above: Performed By: #### P TT, NTBNP, HSTNT, CBCDIF, PT, CKCKMB, CMP #### [place] [address] MCH Entitic mass (RBC) 26.8 pG Normal 26.0-34.0 [facility] Comment on above: Performed By: #### P TT, NTBNP, HSTNT, CBCDIF, PT, CKCKMB, CMP #### [place] [address] MCHC mass conc (RBC) 31.2 g/dL Normal 30.5-36.0 [facility] Comment on above: Performed By: #### P TT, NTBNP, HSTNT, CBCDIF, PT, CKCKMB, CMP #### [place] [id number] MCV Entitic volume (RBC) 86.1 fL Normal 80.0-100.0 [facility] Comment on above: Performed By: #### P TT, NTBNP, HSTNT, CBCDIF, PT, CKCKMB, CMP #### [address] Monocytes/100 WBC (Bld) 7.4 % Normal [facility] Comment on above: Performed By: #### P TT, NTBNP, HSTNT, CBCDIF, PT, CKCKMB, CMP #### [place] [phone] Neutrophils/100 WBC (Bld) 78.0 % Normal [facility] Comment on above: Performed By: #### P TT, NTBNP, HSTNT, CBCDIF, PT, CKCKMB, CMP #### [place] [phone] Platelet mean volume Entitic volume (Bld) 9.9 fL Normal 9.0-12.7 [facility] Comment on above: Performed By: #### P TT, NTBNP, HSTNT, CBCDIF, PT, CKCKMB, CMP #### [place] [phone] Platelets #/vol (Bld) 241 10*3/uL Normal 150-400 [facility] Comment on above: Performed By: #### P TT, NTBNP, HSTNT, CBCDIF, PT, CKCKMB, CMP #### [place] [phone] RBC #/vol (Bld) 4.47 10*6/uL Normal 3.90-5.20 [facility] Comment on above: Performed By: #### P TT, NTBNP, HSTNT, CBCDIF, PT, CKCKMB, CMP #### [place] [phone] WBC #/vol (Bld) 12.38 10*3/uL High 3.70-11.00 [facility] Comment on above: Performed By: #### P TT, NTBNP, HSTNT, CBCDIF, PT, CKCKMB, CMP #### [phone] CNDSon 07-07-2018 CNDS HNO ID: [id number] Author: Mendez Bshara Service: General Internal Medicine Author Type: Physician Type: Discharge Summary Filed: 07/07/2018 9:48 AM Note Text: DISCHARGE SUMMARY PATIENT NAME: Sarina Lovett Code Status: Prior Highest Readmission Risk Score: 30 The 30 day readmissions risk score is derived from an internally validated risk model which evaluates patient level characteristics, utilization history, medication orders and lab results up until the day of discharge. Patients with a score of 40 or above are considered highest risk for readmission. Specific patient level drivers will be listed at the bottom of the summary. Admission Information Admission Information ADMIT DATE: 06/29/2018 DISCHARGE DATE: 07/07/2018 MY DOCTORS AND MEDICAL TEAM: My Main Hospital Doctor: Uzma Graff Primary Care Provider: Sadia Diaz MD My Medical Team Members: Treatment Team: Attending Provider: Uzma Graff Consulting: Clif Dhillon MY CONDITION AT DISCHARGE: Stable REASON I WAS IN THE HOSPITAL: chf SUMMARY OF WHAT HAPPENED WHILE I WAS IN THE HOSPITAL: better OTHER PROBLEMS/DIAGNOSIS: Active Problems: Malnutrition of moderate degree (HCC) Resolved Problems: Congestive heart failure (CHF) (HCC) OPERATIONS PERFORMED WHILE IN THE HOSPITAL: None IMPORTANT TEST/PROCEDURES: No procedures performed TEST RESULTS NOT AVAILABLE AT THIS TIME: No pending results Discharge Disposition Discharge Disposition: Home With Self Care Activity When You Leave the Hospital Resume pre-hospital activity Diet Instructions Resume your pre-hospital diet Call Your Doctor If There is an unusual odor from the wound area You have a severe headache You have lightheadedness, fainting, or confusion You have persistent nausea/vomiting over 24 hours You have persistent or heavy bleeding Your temperature is greater than 101F Follow Up Appointments Follow-Up Appointment With: your Primary Care Doctor When: In 1 week Patient/Parents to call for appointment?: Yes Additional Provider to Provider Information: No notes on file Transitions of Care Critical Issues: NEW BASELINE FOR PATIENT: no LABS AND PROCEDURES PENDING AT DISCHARGE: No pending results. Ruled Out FOLLOW-UP APPOINTMENTS ALREADY SCHEDULED WITH A [facility] PROVIDER: Future Appointments Date Time Provider Department Center 11/02/2018 11:30 AM [facility] ALLERGIES Allergen Reactions - Statins [Other] Caused severe muscular weakness. - Sulfa (Sulfonamide * Caused severe generalized swelling. - Tape [Other] Severe skin reaction; needs to use paper tape DISCHARGE MEDICATION: Current Discharge Medication List START taking these medications glimepiride (AMARYL) 2 mg Take 2 mg by mouth daily with breakfast. Qty: 30 tablet Refills: 0 lisinopril (ZESTRIL, PRINIVIL) 5 mg Take 5 mg by mouth once daily. Qty: 30 tablet Refills: 0 hydrALAZINE (APRESOLINE) 10 mg Take 10 mg by mouth every 8 hours. Qty: 90 tablet Refills: 0 amLODIPine (NORVASC) 10 mg Take 10 mg by mouth once daily. Qty: 30 tablet Refills: 0 predniSONE (DELTASONE) 20 mg Take 20 mg by mouth once daily. Qty: 20 tablet Refills: 0 Comments: Take one pill every day for 7 days the take 1/2 tablet every day until done nitroglycerin sublingual (NITROQUICK) 0.4 mg Dissolve 0.4 mg under the tongue every 5 minutes as needed for Chest Pain. Qty: 25 tablet Refills: 0 CONTINUE these medications which have CHANGED !! buPROPion XL (WELLBUTRIN XL) 150 mg Take 150 mg by mouth once daily. Qty: 30 tablet Refills: 0 !! - Potential duplicate medications found. Please discuss with provider. CONTINUE these medications which have NOT CHANGED clopidogrel (PLAVIX) 75 mg Take 75 mg by mouth once daily. Qty: 90 tablet Refills: 3 aspirin 81 mg Take 81 mg by mouth once daily. Qty: 90 tablet Refills: 3 carvedilol (COREG) 12.5 mg Take 12.5 mg by mouth twice daily with meals. Qty: 180 tablet Refills: 3 furosemide (LASIX) 40 mg Take 40 mg by mouth once daily. Qty: 30 tablet Refills: 0 ALBUTEROL INHALATION 2 Puffs Inhale 2 Puffs as instructed four times daily as needed (wheezing/shortness of breath). !! buPROPion XL (WELLBUTRIN XL) 150 mg Take 150 mg by mouth once daily. Vitamin D 50,000 Units Take 50,000 Units by mouth once each week. Patient unsure of dose sertraline (ZOLOFT) 150 mg Take 150 mg by mouth once daily. omeprazole (PriLOSEC) 20 mg Take 20 mg by mouth once daily. !! - Potential duplicate medications found. Please discuss with provider. Discharge Physical Exam: VITAL SIGNS: BP (!) 164/40 Pulse (!) 56 Temp 36.1 ?C (97 ?F) (Temporal) Resp 17 Ht 170.2 cm (5' 7 ) Wt 69.4 kg (152 lb 14.4 oz) SpO2 94% BMI 23.95 kg/m? GENERAL: Alert, no distress, cooperative The patient's risk for 30-day readmission is determined using the following contributing factors: Pt variables contributing to increased readmission risk: 67 Most Recent BUN Result 24 Active Medication Orders 8.7 First Resulted Calcium During Admission 3 Number of Previous ED Visits (6 mos.) 1 Previous ED Visit (6 mos.)? 1 Insurance - Medicare 1 Discharge Disposition - Home 1 History of Chronic Kidney Disease 1 Number of Hospitalizations (12 mos.) TIME OF CARE: Discharge Management: I personally spent greater than 30 minutes involved in the discharge management of this patient. SIGNATURE: Uzma Graff MD PAGER/CONTACT #: DATE: July 07, 2018 TIME: 9:48 AM [facility] CONSULT PROGon 07-07-2018 Protein mass conc HNO ID: [id number] Author: Clif Dhillon Service: Hypertension AND Nephrology Author Type: Physician Type: Consult Progress Note Filed: 07/07/2018 3:03 PM Note Text: CONSULT PROGRESS NOTE SERVICE DATE: 07/07/2018 SERVICE TIME: 8:15 AM CONSULTING SERVICE: Nephrology Subjective INTERVAL HPI: no acute issues overnight Denies any new complaints, no CP or SOB Current Facility-Administered Medications Medication Dose Route Frequency - buPROPion XL 150 mg tab(s) (WELLBUTRIN XL) 150 mg ORAL DAILY - aspirin 81 mg chewable tab(s) 81 mg ORAL DAILY - clopidogrel 75 mg tab(s) (PLAVIX) 75 mg ORAL DAILY - pantoprazole DR 20 mg tab(s) (PROTONIX) 20 mg ORAL DAILY - sertraline (ZOLOFT) tab(s) 150 mg 150 mg ORAL DAILY - atropine 0.5 mg injection 0.5 mg INTRAVENOUS PRN - aluminum-magnesium hydroxide-simethicone 200-200-20 mg/5 mL 30 mL (MAALOX,MYLANTA,MAG-A L PLUS) 30 mL ORAL DAILY PRN - acetaminophen 650 mg tab(s) (TYLENOL) 650 mg ORAL q 6 H PRN - nitroglycerin sublingual 0.4 mg tab(s) (NITROQUICK) 0.4 mg SUBLINGUAL q 5 MIN PRN - ipratropium-albuterol 3 mL nebulizer solution (DUONEB) 3 mL INHALATION q 4 H PRN - polyethylene glycol 3350 17 g packet (MIRALAX, GLYCOLAX) 17 g ORAL DAILY PRN - hydrALAZINE 10 mg injection (APRESOLINE) 10 mg INTRAVENOUS q 6 H PRN - carvedilol 12.5 mg tab(s) (COREG) 12.5 mg ORAL BID w MEALS - furosemide 40 mg tab(s) (LASIX) 40 mg ORAL DAILY - dextrose 40 % 15 g 15 g ORAL PRN Or - glucagon 1 mg injection (GLUCAGEN) 1 mg INTRAMUSCULAR PRN Or - dextrose 50% in water 25 mL syringe 12.5 g INTRAVENOUS PRN - insulin lispro injection (rapid acting) (HumaLOG) SUBCUTANEOUS w MEALS - insulin lispro injection (rapid acting) (HumaLOG) SUBCUTANEOUS AT BEDTIME - amLODIPine 10 mg tab(s) (NORVASC) 10 mg ORAL DAILY - hydrALAZINE 10 mg tab(s) (APRESOLINE) 10 mg ORAL q 8 H - glimepiride 2 mg tab(s) (AMARYL) 2 mg ORAL DAILY WITH BREAKFAST - predniSONE 20 mg tab(s) (DELTASONE) 20 mg ORAL DAILY - lisinopril 5 mg tab(s) 5 mg ORAL DAILY Objective PHYSICAL EXAM: GENERAL: Alert, no distress, cooperative NECK: No jugulovenous distention, LUNGS: Lungs clear to auscultation, Good diaphragmatic excursion CARDIAC: Normal S1 and S2; no rubs, murmurs, or gallops ABDOMEN: Abdomen soft, non-tender, BS normal, No masses or organomegaly EXTREMITIES: , no deformities, edema, clubbing or skin discoloration. Good capillary refill. NEURO: grossly intact sensory, motor and cognition PULSES: 2+ radial, 2+ carotid BP 164/40 Pulse 56 Temp (Src) 97 (Temporal) Resp 17 Ht 5' 7 (1.70m) Wt 152 lb 14.4 oz (69.4kg) SpO2 94% BMI 23.94 kg/(m2). O2 Therapy: Room Air Intake/Output Summary (Last 24 hours) at 07/07/2018 0815 Last data filed at 07/07/2018 0300 Gross per 24 hour Intake ? Output 1600 ml Net -1600 ml Intake/Output Summary (Last 24 hours) at 07/07/2018 0659 Last data filed at 07/07/2018 0300 Gross per 24 hour Intake 420 ml Output 1600 ml Net -1180 ml DATA: Diagnostic tests reviewed for today's visit: Most recent labs and imaging results. 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 Acute CHF systolic -negative 8 L , continue PO lasix 40 daily ? Metabolic Alkalosis -likely from lasix, will monitor , bicarb 33, improving ? Chronic Anemia -iron profile pending , HgB 12 today Will disucss with Dr jarvis SIGNATURE: Zohaib Mack MD PATIENT NAME: Sarina Lovett DATE: July 07, 2018 TIME: 8:15 AM PAGER: I saw and evaluated the patient. Discussed with the resident and agree with resident's findings and plan as documented in the resident's note. ? 1. CKD stage III baseline creatinine is around 1.5 associated with proteinuria , renal function is stable for now - cont with lisinopril - cont with lasix, the dose can be adjusted base on her volume status and wt 2. Volume overload on lasix - PO lasix 3. Metabolic alkalosis 4. Anemia iron study is OK OK to DC follow up with nephro in 3-4 weeks ? Clif Jarvis MD [facility] Normal [facility] Comp Metabolic Panelon 07-07 Albumin mass conc 3.6 g/dL Normal 3.5-5.0 [facility] Comment on above: Performed By: #### P TT, NTBNP, HSTNT, CBCDIF, PT, CKCKMB, CMP #### [address] [address] ALP enzyme act/vol 83 U/L Normal 34-123 [facility] Comment on above: Performed By: #### P TT, NTBNP, HSTNT, CBCDIF, PT, CKCKMB, CMP #### [address] [address] ALT enzyme act/vol 12 U/L Normal 0-45 [facility] Comment on above: Performed By: #### P TT, NTBNP, HSTNT, CBCDIF, PT, CKCKMB, CMP #### [place] [phone] Anion gap molar conc 15 mmol/L Normal 9-18 [facility] Comment on above: Performed By: #### P TT, NTBNP, HSTNT, CBCDIF, PT, CKCKMB, CMP #### [place] [phone] AST enzyme act/vol 10 U/L Normal 7-40 [facility] Comment on above: Performed By: #### P TT, NTBNP, HSTNT, CBCDIF, PT, CKCKMB, CMP #### [address] Bilirubin mass conc 0.3 mg/dL Normal 0.2-1.3 [facility] Comment on above: Performed By: #### P TT, NTBNP, HSTNT, CBCDIF, PT, CKCKMB, CMP #### [place] [phone] Calcium mass conc 8.7 mg/dL Normal 8.5-10.5 [facility] Comment on above: Performed By: #### P TT, NTBNP, HSTNT, CBCDIF, PT, CKCKMB, CMP #### [place] [phone] Chloride molar conc 90 mmol/L Low 98-110 [facility] Comment on above: Performed By: #### P TT, NTBNP, HSTNT, CBCDIF, PT, CKCKMB, CMP #### [place] [phone] CO2 molar conc 33 mmol/L High 23-32 [facility] Comment on above: Performed By: #### P TT, NTBNP, HSTNT, CBCDIF, PT, CKCKMB, CMP #### [place] [phone] Creatinine mass conc 1.54 mg/dL High 0.70-1.40 [facility] Comment on above: Performed By: #### P TT, NTBNP, HSTNT, CBCDIF, PT, CKCKMB, CMP #### [place] [phone] eGFR- Amer. 40 Low >60 [facility] Comment on above: Performed By: #### P TT, NTBNP, HSTNT, CBCDIF, PT, CKCKMB, CMP #### [place] [phone] GFR/1.73 sq M predicted among non-blacks MDRD vol rate/area (S/P/Bld) 33 . Low >60 [facility] Comment on above: Performed By: #### P TT, NTBNP, HSTNT, CBCDIF, PT, CKCKMB, CMP #### [place] [phone] Glucose mass conc 88 mg/dL Normal 65-100 [facility] Comment on above: Performed By: #### P TT, NTBNP, HSTNT, CBCDIF, PT, CKCKMB, CMP #### [place] [address] Potassium molar conc 3.9 mmol/L Normal 3.5-5.0 [facility] Comment on above: Performed By: #### P TT, NTBNP, HSTNT, CBCDIF, PT, CKCKMB, CMP #### [place] [id number] Protein mass conc 6.3 g/dL Normal 6.0-8.4 [facility] Comment on above: Performed By: #### P TT, NTBNP, HSTNT, CBCDIF, PT, CKCKMB, CMP #### [place] [id number] Sodium molar conc 138 mmol/L Normal 132-148 [facility] Comment on above: Performed By: #### P TT, NTBNP, HSTNT, CBCDIF, PT, CKCKMB, CMP #### [place] [phone] Urea nitrogen mass conc 67 mg/dL High 8-25 [facility] Comment on above: Performed By: #### P TT, NTBNP, HSTNT, CBCDIF, PT, CKCKMB, CMP #### [place] [phone] Ferritinon 07-07-2018 Ferritin mass conc 81.6 ng/mL Normal 14.7-205.1 [facility] Comment on above: Performed By: #### P TT, NTBNP, HSTNT, CBCDIF, PT, CKCKMB, CMP #### [place] [phone] Iron and TIBCon 07-07-2018 Iron mass conc 86 ug/dL Normal 35-150 [facility] Comment on above: Performed By: #### P TT, NTBNP, HSTNT, CBCDIF, PT, CKCKMB, CMP #### [place] [phone] TIBC 330 ug/dL Normal 250-450 [facility] Comment on above: Performed By: #### P TT, NTBNP, HSTNT, CBCDIF, PT, CKCKMB, CMP #### [phone] Transferrin Saturatn 26 % Normal 20-55 [facility] Comment on above: Performed By: #### P TT, NTBNP, HSTNT, CBCDIF, PT, CKCKMB, CMP #### [place] [phone] NURSING PROGon 07-07-2018 Protein mass conc HNO ID: [id number] Author: Neris English RN Service: Abstract Author Type: Registered Nurse Type: Nursing Progress Note Filed: 07/07/2018 3:41 PM Note Text: Nursing Progress Note Patient Name: Sarina Lovett Patient Location: / Daily Note: Discharge instructions given with verbal understanding. Some prescriptions filled here, other paper prescriptions handed to patient she said she has some of them filled at home and will double check before filling them again. Tele and IV both d/c'd. Patient wheeled down by volunteers to front entrance. All belongings returned. This note was completed by: Neris English RN [facility] Protein mass conc HNO ID: [id number] Author: Neris Payton) DEBBIE English Service: Abstract Author Type: Registered Nurse Type: Nursing Progress Note Filed: 07/07/2018 12:38 PM Note Text: Nursing Progress Note Patient Name: Sarina Lovett Patient Location: / Daily Note: 1238: re paged Dr Dhillon: [id number] Barry LOVETT Patient is all ready for discharge. Please call me to let me know if you approve. Spoke with resident he said we have to ask you. Thank you. Neris [phone]: [id number] at bedside, would like to speak with you regarding d/c. Please call us. Thank you. Neris [phone] This note was completed by: Neris English RN [facility] PLAN OF CAREon 07-07-2018 PLAN OF CARE HNO ID: [id number] Author: Kathy Aguero (Business Control Manager) Service: Pharmacy Author Type: Commercial Management Accountant Type: Plan of Care Filed: 07/11/2018 11:29 AM Note Text: PHARMACY BEDSIDE DELIVERY SERVICE Patient Name: Sarina Lovett The marked outpatient medications were filled and delivered Medication List START taking these medications amLODIPine 10 mg tablet Commonly known as: NORVASC Take 1 tablet by mouth once daily. glimepiride 2 mg tablet Commonly known as: AMARYL Take 1 tablet by mouth daily with breakfast. hydrALAZINE 10 mg tablet Commonly known as: APRESOLINE Take 1 tablet by mouth every 8 hours. lisinopril 5 mg tablet Commonly known as: ZESTRIL, PRINIVIL Take 1 tablet by mouth once daily. nitroglycerin sublingual 0.4 mg SL tablet Commonly known as: NITROQUICK Dissolve 1 tablet under the tongue every 5 minutes as needed for Chest Pain. predniSONE 20 mg tablet Commonly known as: DELTASONE Take 1 tablet by mouth once daily. Notes to patient: Take ONE tablet daily for 7 days. Then take HALF tablet daily until done. CHANGE how you take these medications * WELLBUTRIN XL 150 mg 24 hr tablet Generic drug: buPROPion XL What changed: Another medication with the same name was added. Make sure you understand how and when to take each. * buPROPion XL 150 mg 24 hr tablet Commonly known as: WELLBUTRIN XL Take 1 tablet by mouth once daily. What changed: You were already taking a medication with the same name, and this prescription was added. Make sure you understand how and when to take each. * This list has 2 medication(s) that are the same as other medications prescribed for you. Read the directions carefully, and ask your doctor or other care provider to review them with you. CONTINUE taking these medications ALBUTEROL INHALATION aspirin 81 mg chewable tablet Take 1 tablet by mouth once daily. carvedilol 12.5 mg tablet Commonly known as: COREG Take 1 tablet by mouth twice daily with meals. clopidogrel 75 mg tablet Commonly known as: PLAVIX Take 1 tablet by mouth once daily. furosemide 40 mg tablet Commonly known as: LASIX Take 1 tablet by mouth once daily. omeprazole 20 mg capsule Commonly known as: PriLOSEC sertraline 100 mg tablet Commonly known as: ZOLOFT Vitamin D 50,000 unit capsule Generic drug: ergocalciferol (vitamin D2) You might also be taking other medications not listed above. If you have questions about any of your other medications, talk to the person who prescribed them or your Primary Care Provider. Kathy Aguero ([employer]) PAGER: [phone] July 11, 2018 11:29 AM [facility] PLAN OF CARE HNO ID: [id number] Author: Kathy Aguero ([employer]) Service: Pharmacy Author Type: Commercial Management Accountant Type: Plan of Care Filed: 07/07/2018 12:48 PM Note Text: Pharmacy Discharge Medication Service: This patient has elected to receive their discharge prescriptions through the [facility] Bedside Prescription Delivery program. The prescriptions are currently being processed. A follow-up note will be entered once the prescriptions have been filled and delivered to the patient. Please contact me with any questions or updates to the patient's discharge medications. Kathy Aguero ([employer]) DCT Contact Info: [id number] [facility] OF CARE HNO ID: [id number] Author: Kathy Aguero ([employer]) Service: Pharmacy Author Type: Commercial Management Accountant Type: Plan of Care Filed: 07/07/2018 12:48 PM Note Text: [employer] COUNTER BEDSIDE DELIVERY SURVEY 1. Patient to use [facility] Bedside Delivery - YES Insurance Information as follows: 2. Insurance card on file - YES 3. Credit card for payment - N/A Normal [facility] PTH, [place] 07-07-2018 PTH, Intact 78 pg/mL High 15-65 [facility] Comment on above: Performed By: #### P TT, NTBNP, HSTNT, CBCDIF, PT, CKCKMB, CMP #### [place] [address] Vitamin D 25 Hydroxyon 07-07 Vitamin D 25 Hydroxy 19.1 ng/mL Low 31.0-80.0 [facility] Comment on above: Result Comment: Clas sification of 25 OH Vitamin D status: Insufficiency/Moderate Deficiency: < or = 30 ng/mL Sufficiency/Optimal Levels: 31 to 80 ng/mL Toxicity: > 100 ng/mL Test performed by chemiluminescent immunoassay. Performed By: #### P TT, NTBNP, HSTNT, CBCDIF, PT, CKCKMB, CMP #### [place] [address] Albumin/Creat Ratioon 2018 Albumin Urine Random 190.3 mg/L High 0.0-23.0 [facility] Comment on above: Performed By: #### P TT, NTBNP, HSTNT, CBCDIF, PT, CKCKMB, CMP #### [place] [phone] Albumin/Creat Ratio 582 mg/g High 0-30 [facility] Comment on above: Result Comment: 30 t o 300 mg/g indicates an increased risk for diabetic nephropathy. Greater than 300 mg/g is consistent with clinical nephropathy. (Am J Kidney Disease 1995, 25:107) Performed By: #### P TT, NTBNP, HSTNT, CBCDIF, PT, CKCKMB, CMP #### [place] [phone] Creatinine,Urine,Ran 32.7 mg/dL Normal 20-300 [facility] Comment on above: Performed By: #### P TT, NTBNP, HSTNT, CBCDIF, PT, CKCKMB, CMP #### [place] [phone] Basic Metabolic Panlon 07-06 Anion gap molar conc 12 mmol/L Normal 9-18 [facility] Comment on above: Performed By: #### P TT, NTBNP, HSTNT, CBCDIF, PT, CKCKMB, CMP #### [place] [phone] Calcium mass conc 8.8 mg/dL Normal 8.5-10.5 [facility] Comment on above: Performed By: #### P TT, NTBNP, HSTNT, CBCDIF, PT, CKCKMB, CMP #### [place] [phone] Chloride molar conc 90 mmol/L Low 98-110 [facility] Comment on above: Performed By: #### P TT, NTBNP, HSTNT, CBCDIF, PT, CKCKMB, CMP #### [place] [phone] CO2 molar conc 35 mmol/L High 23-32 [facility] Comment on above: Performed By: #### P TT, NTBNP, HSTNT, CBCDIF, PT, CKCKMB, CMP #### [place] [phone] Creatinine mass conc 1.51 mg/dL High 0.70-1.40 [facility] Comment on above: Performed By: #### P TT, NTBNP, HSTNT, CBCDIF, PT, CKCKMB, CMP #### [place] [phone] eGFR- Amer. 41 Low >60 [facility] Comment on above: Performed By: #### P TT, NTBNP, HSTNT, CBCDIF, PT, CKCKMB, CMP #### [place] [phone] GFR/1.73 sq M predicted among non-blacks MDRD vol rate/area (S/P/Bld) 34 . Low >60 [facility] Comment on above: Performed By: #### P TT, NTBNP, HSTNT, CBCDIF, PT, CKCKMB, CMP #### [place] [phone] Glucose mass conc 219 mg/dL High 65-100 [facility] Comment on above: Performed By: #### P TT, NTBNP, HSTNT, CBCDIF, PT, CKCKMB, CMP #### [place] [phone] Potassium molar conc 4.6 mmol/L Normal 3.5-5.0 [facility] Comment on above: Performed By: #### P TT, NTBNP, HSTNT, CBCDIF, PT, CKCKMB, CMP #### [place] [phone] Sodium molar conc 137 mmol/L Normal 132-148 [facility] Comment on above: Performed By: #### P TT, NTBNP, HSTNT, CBCDIF, PT, CKCKMB, CMP #### [place] [id number] [place] [phone] Urea nitrogen mass conc 63 mg/dL High 8-25 [facility] Comment on above: Performed By: #### P TT, NTBNP, HSTNT, CBCDIF, PT, CKCKMB, CMP #### [place] [phone] CASE MANAGEMon 07-06-2018 CASE MANAGEM HNO ID: [id number] Author: Bro Wood (Sw) Service: Care Management Author Type: Plastic Surgery Nurse Type: Care Mgt Progress Note Filed: 07/06/2018 11:11 AM Note Text: MULTIDISCIPLINARY ROUNDS SERVICE DATE: 07/06/2018 ADMISSION DATE: 06/29/2018 SERVICE TIME: 11:06 AM ANTICIPATED D/C DATE: 07/07/2018 Problem List: ACTIVE PROBLEM LIST Other and Unspecified Hyperlipidemia Essential hypertension, benign Chest Pain Coronary Atherosclerosis Aortic Valve Disorders Tobacco Abuse Hypertensive Emergency Psychiatric Disorder Nicotine use disorder, F17.2 Contrast Dye Induced Nephropathy Acute Renal Failure Superimposed On Stage 3 Chronic Kidney Disease (Hcc) Congestive Heart Failure (Chf) (Hcc) Malnutrition of Moderate Degree (Hcc) Attendees Present at Rounds: Ticker Wirer: Yoselin Nurse Hosted Services Analyst/Lacrosse Coach Nurse Hosted Services Analyst: Betsy Plastic Surgery Nurse: Bro Staff Nurse: Neris Needs Discussed on Rounds: Discharge Needs Plan of Care Anticipated Discharge Disposition: Home/Self Care Last Vitals: BP 154/44 Pulse 62 Temp (Src) 96.8 (Temporal) Resp 18 Ht 5' 7 (1.70m) Wt 153 lb 11.2 oz (69.7kg) SpO2 93% BMI 24.07 kg/(m2). O2 Therapy: Room Air Pt scheduled to have ultra sound of the kidney, Cr has increased, nephrology consulted. Nursing: DOCUMENTED BY: KARRIE FORTE PATIENT NAME: Sarina Lovett DATE: July 06, 2018 TIME: 11:06 AM CSN: [id number] [facility] CONSULTon 07-06-2018 CONSULT HNO ID: [id number] Author: Amr Alyafi Service: General Internal Medicine Author Type: Physician Type: Consults Filed: 07/06/2018 4:34 PM Note Text: CONSULT: NEPH SERVICE SERVICE DATE: 07/06/2018 SERVICE TIME: 3:14 PM REASON FOR CONSULT: JULIETA REQUESTING PHYSICIAN: Dr Graff PRIMARY CARE PHYSICIAN: Sadia Diaz MD Subjective Ms. Lovett is a 73 year old female who presents for worsening LE swelling and respiratory distress. She was being treated for acute on chronic CHF. She has been started on IV diuresis initially , she is negative about 7 liter. She is also a diagnosed case of CKD, stage 3 , likely diabetic nephropathy. Her creatinine slightly went up and nephrology consulted for management of JULIETA. Currently she denies any SOB. She stated her legs are improving. Denies any new complaints. Patient doesn't see any funeral home director currently. Previously came to the hospital in February . She also has history of contrast nephropathy. She doesn't remember her medications. Doesn't recall any diuretics. Baseline creatinine around 1.5 , around 1.4 to 1.5 range, previously higher. History of contrast nephropathy. BUTTER WRAPPER med shows 40 lasix PO. PAST MEDICAL 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 - Aortic valve disorders - Cancer (HCC) - Coronary atherosclerosis of unspecified type of vessel, nez perce or graft Coronary Atherosclerosis - Diabetes (HCC) - Mixed hyperlipidemia Hyperlipidemia - Psychiatric disorder - Unspecified essential hypertension Essential hypertension PAST SURGICAL HISTORY Procedure Laterality Date - CARDIAC CATHETERIZATION HX - CORONARY STENT EA VESSEL david 02/2015 - HEART SURGERY HX aortic valve replacement, CABGx3 - LIGATE F[place] TUBE FAMILY HISTORY Problem Relation Age of Onset - Ischemic Heart Disease Maternal Grandmother - Ischemic Heart Disease Paternal Grandfather - Diabetes Mother - Diabetes Maternal Grandmother - Diabetes Maternal Aunt - other (chf) Mother - Hypertension Father - Lipids Father Social History Tobacco Use - Smoking status: Former Smoker Packs/day: 1.00 Years: 50.00 Pack years: 50.00 Last attempt to quit: 02/28/2013 Years since quittin.3 - Smokeless tobacco: Never Used - Tobacco comment: started in her teenage years Substance Use Topics - Alcohol use: Yes Comment: rarely - Drug use: No Medications Prior to Admission: clopidogrel (PLAVIX) 75 mg tablet Take 1 tablet by mouth once daily. Disp: 90 tablet Rfl: 3 aspirin 81 mg chewable tablet Take 1 tablet by mouth once daily. Disp: 90 tablet Rfl: 3 carvedilol (COREG) 12.5 mg tablet Take 1 tablet by mouth twice daily with meals. Disp: 180 tablet Rfl: 3 furosemide (LASIX) 40 mg tablet Take 1 tablet by mouth once daily. Disp: 30 tablet Rfl: 0 ALBUTEROL INHALATION Inhale 2 Puffs as instructed four times daily as needed (wheezing/shortness of breath). Disp: Rfl: buPROPion XL (WELLBUTRIN XL) 150 mg 24 hr tablet Take 150 mg by mouth once daily. Disp: Rfl: 03/24/2018 at Unknown time VITAMIN D 50,000 unit capsule Take 50,000 Units by mouth once each week. Patient unsure of dose Disp: Rfl: 03/24/2018 sertraline (ZOLOFT) 100 mg tablet Take 150 mg by mouth once daily. Disp: Rfl: 03/24/2018 omeprazole (PRILOSEC) 20 mg capsule Take 20 mg by mouth once daily. Disp: Rfl: 03/24/2018 Current Facility-Administered Medications Medication Dose Route Frequency - buPROPion XL 150 mg tab(s) (WELLBUTRIN XL) 150 mg ORAL DAILY - aspirin 81 mg chewable tab(s) 81 mg ORAL DAILY - clopidogrel 75 mg tab(s) (PLAVIX) 75 mg ORAL DAILY - pantoprazole DR 20 mg tab(s) (PROTONIX) 20 mg ORAL DAILY - sertraline (ZOLOFT) tab(s) 150 mg 150 mg ORAL DAILY - atropine 0.5 mg injection 0.5 mg INTRAVENOUS PRN - aluminum-magnesium hydroxide-simethicone 200-200-20 mg/5 mL 30 mL (MAALOX,MYLANTA,MAG-A L PLUS) 30 mL ORAL DAILY PRN - acetaminophen 650 mg tab(s) (TYLENOL) 650 mg ORAL q 6 H PRN - nitroglycerin sublingual 0.4 mg tab(s) (NITROQUICK) 0.4 mg SUBLINGUAL q 5 MIN PRN - ipratropium-albuterol 3 mL nebulizer solution (DUONEB) 3 mL INHALATION q 4 H PRN - polyethylene glycol 3350 17 g packet (MIRALAX, GLYCOLAX) 17 g ORAL DAILY PRN - hydrALAZINE 10 mg injection (APRESOLINE) 10 mg INTRAVENOUS q 6 H PRN - carvedilol 12.5 mg tab(s) (COREG) 12.5 mg ORAL BID w MEALS - furosemide 40 mg tab(s) (LASIX) 40 mg ORAL DAILY - dextrose 40 % 15 g 15 g ORAL PRN Or - glucagon 1 mg injection (GLUCAGEN) 1 mg INTRAMUSCULAR PRN Or - dextrose 50% in water 25 mL syringe 12.5 g INTRAVENOUS PRN - insulin lispro injection (rapid acting) (HumaLOG) SUBCUTANEOUS w MEALS - insulin lispro injection (rapid acting) (HumaLOG) SUBCUTANEOUS AT BEDTIME - amLODIPine 10 mg tab(s) (NORVASC) 10 mg ORAL DAILY - hydrALAZINE 10 mg tab(s) (APRESOLINE) 10 mg ORAL q 8 H - glimepiride 2 mg tab(s) (AMARYL) 2 mg ORAL DAILY WITH BREAKFAST - predniSONE 20 mg tab(s) (DELTASONE) 20 mg ORAL DAILY Allergies As of Date: 06/29/2018 Allergen Noted Reaction STATINS [OTHER] 03/28/2003 SULFA (SULFONAMIDE ANTIBIOTICS) 03/28/2003 TAPE [OTHER] 02/02/2006 Fully Assessed 06/29/2018 COMPLETE REVIEW OF SYSTEMS: GENERAL: No weight loss, malaise HEENT: No changes in hearing or vision, no nose bleeds or other nasal problems NECK: Negative for lumps, goiter, pain and significant neck swelling RESPIRATORY: + SOB initially CARDIOVASCULAR: Negative for chest pain, leg swelling, hypertension, GI: No nausea, vomiting, or diarrhea : No history of dysuria, frequency or incontinence PSYCH: Negative for sleep disturbance, mood disorder and recent psychosocial stressors HEMATOLOGY/LYMPHOLOGY : Negative for prolonged bleeding, bruising easily or swollen nodes NEURO: syncope, paralysis, seizures or tremors Objective PHYSICAL EXAM: Comprehensive Physical Exam Performed: GENERAL: Alert, no distress, cooperative NECK: No jugulovenous distention, LUNGS: Lungs clear to auscultation, Good diaphragmatic excursion CARDIAC: Normal S1 and S2; no rubs, murmurs, or gallops ABDOMEN: Abdomen soft, non-tender, BS normal, No masses or organomegaly EXTREMITIES: trace edema NEURO: grossly intact sensory, motor and cognition PULSES: 2+ radial, 2+ carotid BP 149/45 Pulse 56 Temp (Src) 97.2 (Temporal) Resp 16 Ht 5' 7 (1.70m) Wt 153 lb 11.2 oz (69.7kg) SpO2 92% BMI 24.07 kg/(m2). O2 Therapy: Room Air DATA: Diagnostic tests reviewed for today's visit: Most recent labs and imaging results. Most recent labs Most recent imaging Most recent EKG Intake/Output Summary (Last 24 hours) at 07/06/2018 1514 Last data filed at 07/06/2018 0800 Gross per 24 hour Intake 420 ml Output 2600 ml Net -2180 ml Intake/Output Summary (Last 24 hours) at 07/06/2018 0659 Last data filed at 07/06/2018 0542 Gross per 24 hour Intake 690 ml Output 2600 ml Net -1910 ml Impression/Recommenda tions Proteinuric CKD stage III - likely diabetic nephropathy,creatinin e appears to be at baseline, slight elevation, will send urine lytes - send for albumin creatinine ratio - continue PO lasix 40 daily, she is tolerating it well - avoid nephrotoxic drug - will start low dose ACEi , patient was previously on lisinopril - send for PTH and Vitamin D level Acute CHF systolic -currently stable volume status, adequate diuresis, negative 7L , about 12 lbs change of weight , appears to be closer to dry weight - continue PO lasix daily Metabolic Alkalosis -likely from lasix, will monitor , bicarb 35 Chronic Anemia -check iron storage , might need supplement - no active bleeding SIGNATURE: Zohaib Mack MD PATIENT NAME: Sarina Lovett DATE: July 06, 2018 TIME: 3:14 PM PAGER: I saw and evaluated the patient. Discussed with the resident and agree with resident's findings and plan as documented in the resident's note. 1. CKD stage III baseline creatinine is around 1.5 associated with proteinuria , renal function is stable for now - start low dose lisinopril today - PTH and vit D 2. Volume overload on lasix - switch to PO today 3. Metabolic alkalosis 4. Anemia check iron study Clif Jarvis MD [facility] [place] [facility] Chloride,Urine,Marko 2018 Chloride,Urine,[place] 69 mmol/L Normal 16-250 [facility] Comment on above: Performed By: #### P TT, NTBNP, HSTNT, CBCDIF, PT, CKCKMB, CMP #### [facility] [address] [place] [address] PROGRESSon 07-06-2018 Protein mass conc HNO ID: [id number] Author: Taina Ware Service: ? Author Type: Computer Numeric Control Setter Type: Progress Notes Filed: 07/06/2018 9:54 AM Note Text: Radiology Service Progress Note PATIENT NAME: Sarina Lovett DATE OF SERVICE: July 06, 2018 TIME: 9:53 AM PATIENT IDENTITY VERIFICATION COMPLETED USING TWO (2) METHODS: Patient confirmed name verbally and ID band matches.. PATIENT GENDER DATA: Female. status: : No status: NO. PATIENT RELEVANT IMPLANT DATA REVIEWED: Not Applicable RADIOLOGY DEPARTMENT: Ultrasound PERIPHERAL IV DATA: Not applicable SIGNED BY: Taina Ware RDMS July 06, 2018 9:53 AM [facility] Protein mass conc HNO ID: [id number] Author: Uzma Graff Service: General Internal Medicine Author Type: Physician Type: Progress Notes Filed: 07/06/2018 10:27 PM Note Text: PROGRESS NOTE - INTERNAL MEDICINE PATIENT NAME: Sarina Lovett SERVICE DATE: 07/06/2018 ADMITTING PHYSICIAN: Uzma Govea HPI: Feeling better today ASSESSMENT AND PLAN: - -CHF : Blood tests reviewed; BUN And Creatinine are getting worse Will hold discharge and hold Lasix Nephrology consult ACTIVE PROBLEM LIST Other and Unspecified Hyperlipidemia Essential hypertension, benign Chest Pain Coronary Atherosclerosis Aortic Valve Disorders Tobacco Abuse Hypertensive Emergency Psychiatric Disorder Nicotine use disorder, F17.2 Contrast Dye Induced Nephropathy Acute Renal Failure Superimposed On Stage 3 Chronic Kidney Disease (Hcc) Congestive Heart Failure (Chf) (Hcc) Malnutrition of Moderate Degree (Hcc) COMPLETE REVIEW OF SYSTEMS:RESPIRATORY: Negative for cough, wheezing or shortness of breath. CARDIOVASCULAR: Negative for chest pain, leg swelling or palpitations. GI: Negative for abdominal discomfort, blood in stools or black stools or change in bowel habits : No history of dysuria, frequency or incontinence MUSCULOSKELETAL: Negative for joint pain or swelling, back pain or muscle pain. SKIN: Negative for lesions, rash, and itching. NEURO: No history of headaches, syncope, paralysis, seizures or tremors All other reviewed and negative other than HPI. OBJECTIVE PHYSICAL EXAM GENERAL: No changes/ alert SKIN: Skin color, WNL. NECK: Unchanged LUNGS: clear CARDIAC: Normal S1 and S2; no rubs, murmurs, or gallops ABDOMEN: soft EXTREMITIES: No EDEMA Neuro exam: WNL Current Facility-Administered Medications Medication Dose Route Frequency - buPROPion XL 150 mg tab(s) (WELLBUTRIN XL) 150 mg ORAL DAILY - aspirin 81 mg chewable tab(s) 81 mg ORAL DAILY - clopidogrel 75 mg tab(s) (PLAVIX) 75 mg ORAL DAILY - pantoprazole DR 20 mg tab(s) (PROTONIX) 20 mg ORAL DAILY - sertraline (ZOLOFT) tab(s) 150 mg 150 mg ORAL DAILY - atropine 0.5 mg injection 0.5 mg INTRAVENOUS PRN - aluminum-magnesium hydroxide-simethicone 200-200-20 mg/5 mL 30 mL (MAALOX,MYLANTA,MAG-A L PLUS) 30 mL ORAL DAILY PRN - acetaminophen 650 mg tab(s) (TYLENOL) 650 mg ORAL q 6 H PRN - nitroglycerin sublingual 0.4 mg tab(s) (NITROQUICK) 0.4 mg SUBLINGUAL q 5 MIN PRN - ipratropium-albuterol 3 mL nebulizer solution (DUONEB) 3 mL INHALATION q 4 H PRN - furosemide 20 mg injection (LASIX) 20 mg INTRAVENOUS q 12 H 6a/6p - polyethylene glycol 3350 17 g packet (MIRALAX, GLYCOLAX) 17 g ORAL DAILY PRN - predniSONE 20 mg tab(s) (DELTASONE) 20 mg ORAL BID - hydrALAZINE 10 mg injection (APRESOLINE) 10 mg INTRAVENOUS q 6 H PRN - carvedilol 12.5 mg tab(s) (COREG) 12.5 mg ORAL BID w MEALS - furosemide 40 mg tab(s) (LASIX) 40 mg ORAL DAILY - dextrose 40 % 15 g 15 g ORAL PRN Or - glucagon 1 mg injection (GLUCAGEN) 1 mg INTRAMUSCULAR PRN Or - dextrose 50% in water 25 mL syringe 12.5 g INTRAVENOUS PRN - insulin lispro injection (rapid acting) (HumaLOG) SUBCUTANEOUS w MEALS - insulin lispro injection (rapid acting) (HumaLOG) SUBCUTANEOUS AT BEDTIME - amLODIPine 10 mg tab(s) (NORVASC) 10 mg ORAL DAILY - enalapril 10 mg tab(s) (VASOTEC) 10 mg ORAL BID - hydrALAZINE 10 mg tab(s) (APRESOLINE) 10 mg ORAL q 8 H - glimepiride 2 mg tab(s) (AMARYL) 2 mg ORAL DAILY WITH BREAKFAST DATA: Diagnostic tests reviewed for today's visit: @IMAGES@ CBC: No results for input(s): WBC, RBC, HB, HCT, PLT, MCV, MCH, MPV, RDW in the last 24 hours. Coags: No results for input(s): INR, APTT in the last 24 hours. Invalid input(s): PT BMP: Recent Labs 07/06/18 0540 NA 137 K 4.6 CHLOR 90* CO2 35* BUN 63* CREAT 1.51* GLUC 219* CMP: Recent Labs 07/06/18 0540 NA 137 K 4.6 CHLOR 90* CO2 35* BUN 63* CREAT 1.51* GLUC 219* CA 8.8 ANION 12 Cardiac Enzymes: No results for input(s): CK, MB, CKMB, TROPT in the last 24 hours. Liver Function, Amylase, Lipase: No results for input(s): TPROT, ALB, ALT, AST, ALKPHOS, TBILI, AMYLASE, LIPASE, LACTATE in the last 24 hours. SIGNATURE: Uzma Graff MD [phone] Pager: Normal [facility] Potassium,Urine,Marko 07-06 Potassium,Urine,[place] 23.0 mmol/L Normal 10-160 [facility] Comment on above: Performed By: #### P TT, NTBNP, HSTNT, CBCDIF, PT, CKCKMB, CMP #### [address] [address] Protein/Creatinine Ratioon 0 07-06-2018 Creatinine,Urine,[place] 33.3 mg/dL Normal 20-300 [facility] Comment on above: Performed By: #### P TT, NTBNP, HSTNT, CBCDIF, PT, CKCKMB, CMP #### [address] [address] Protein mass conc (U) 34 mg/dL High 0-20 [facility] Comment on above: Performed By: #### P TT, NTBNP, HSTNT, CBCDIF, PT, CKCKMB, CMP #### [facility] [address] [place] [address] Protein/Creatinine Ratio 1.0 High <0.2 [facility] Comment on above: Performed By: #### P TT, NTBNP, HSTNT, CBCDIF, PT, CKCKMB, CMP #### [address] [id number] [place] [address] Sodium,Urine,Randomon 2018 Sodium molar conc (U) 91 mmol/L Normal 14-216 [facility] Comment on above: Performed By: #### P TT, NTBNP, HSTNT, CBCDIF, PT, CKCKMB, CMP #### [place] [address] US KIDNEY/BLADDERon 07-07-19 19 US KIDNEY/BLADDER * * *Final Report* * * DATE OF EXAM: Jul 06 2018 9:52AM [facility]U 1055 - US KIDNEY/BLADDER / PROCEDURE REASON: Hydronephrosis, UPJ obstruction suspected * * * * Physician Interpretation * * * * EXAMINATION: RENAL ULTRASOUND CLINICAL HISTORY: Hydronephrosis TECHNIQUE: Sonography of the kidneys and urinary bladder was performed. Images were obtained and stored in a permanent archive. MQ: UR_1 COMPARISON: None RESULT: Right Kidney: -Renal length: 11.7 cm -Parenchyma: Normal parenchymal echogenicity. Normal parenchymal thickness. -Collecting system: No hydronephrosis. -Calculus: No echogenic, shadowing calculus. -Lesion: None. Left Kidney: -Renal length: 8.1 cm -Parenchyma: Normal parenchymal echogenicity. Diffuse parenchymal thinning present. -Collecting system: No hydronephrosis. -Calculus: No echogenic, shadowing calculus. -Lesion: None. Bladder: Normal sonographic appearance. IMPRESSION: Unremarkable right kidney. Diffuse parenchymal thinning of right kidney suggesting atrophy. No renal calculus or hydronephrosis identified. Unremarkable urinary bladder. Additional findings as detailed in the report. Armature Rewinder: JENNIFER Transcribe Date/Time: Jul 06 2018 2:20P Dictated by : MANISHA CONTRERAS MD This examination was interpreted and the report reviewed and electronically signed by: MANISHA CONTRERAS MD on Jul 06 2018 2:22PM EST [id number] [facility] Urea Nitrogen,Ur,Ranon 07-06 Urea nitrogen mass conc 444 mg/dL Normal 140-1500 [facility] Comment on above: Performed By: #### P TT, NTBNP, HSTNT, CBCDIF, PT, CKCKMB, CMP #### [place] [address] Urinalysis with Microscopico n 07-06-2018 Bacteria LM.HPF #/area (Urine sed) Rare Critically abnormal Negative [facility] Comment on above: Performed By: #### P TT, NTBNP, HSTNT, CBCDIF, PT, CKCKMB, CMP #### [place] [address] Bilirubin, Urine Negative Normal Negative [facility] Comment on above: Performed By: #### P TT, NTBNP, HSTNT, CBCDIF, PT, CKCKMB, CMP #### [place] [address] Clarity Nom (U) Clear Normal Clear [facility] Comment on above: Performed By: #### P TT, NTBNP, HSTNT, CBCDIF, PT, CKCKMB, CMP #### [place] [address] Color Nom (U) Yellow Normal Yellow [facility] Comment on above: Performed By: #### P TT, NTBNP, HSTNT, CBCDIF, PT, CKCKMB, CMP #### [place] [address] Comments SEE COMMENT Normal [facility] Comment on above: Result Comment: Micr oscopic Examination Performed Performed By: #### P TT, NTBNP, HSTNT, CBCDIF, PT, CKCKMB, CMP #### [place] [id number] Epithelial cells LM.HPF #/area (Urine sed) SEE COMMENT Critically abnormal Negative [facility] Comment on above: Result Comment: Rare Squamous Epithelial Cells Performed By: #### P TT, NTBNP, HSTNT, CBCDIF, PT, CKCKMB, CMP #### [place] [address] Glucose Ql (U) Negative Normal [facility] Comment on above: Performed By: #### P TT, NTBNP, HSTNT, CBCDIF, PT, CKCKMB, CMP #### [place] [address] Hemoglobin/Blood,Ur Negative Normal Negative [facility] Comment on above: Performed By: #### P TT, NTBNP, HSTNT, CBCDIF, PT, CKCKMB, CMP #### [place] [address] Ketones Ql (U) Negative Normal [facility] Comment on above: Performed By: #### P TT, NTBNP, HSTNT, CBCDIF, PT, CKCKMB, CMP #### [place] [address] Leukest Small Critically abnormal [facility] Comment on above: Performed By: #### P TT, NTBNP, HSTNT, CBCDIF, PT, CKCKMB, CMP #### [place] [address] Mucus Ql (Urine sed) Present [facility] Comment on above: Performed By: #### P TT, NTBNP, HSTNT, CBCDIF, PT, CKCKMB, CMP #### [place] [address] Nitrite Ql (U) Negative [facility] Comment on above: Performed By: #### P TT, NTBNP, HSTNT, CBCDIF, PT, CKCKMB, CMP #### [place] [id number] pH (Bld) 6.0 Normal 5.0-8.0 [facility] Comment on above: Performed By: #### P TT, NTBNP, HSTNT, CBCDIF, PT, CKCKMB, CMP #### [place] [address] Protein mass conc (U) 30 mg/dL Critically abnormal Negative [facility] Comment on above: Performed By: #### P TT, NTBNP, HSTNT, CBCDIF, PT, CKCKMB, CMP #### [place] [address] RBC #/vol (U) Rare Critically abnormal Negative [facility] Comment on above: Performed By: #### P TT, NTBNP, HSTNT, CBCDIF, PT, CKCKMB, CMP #### [place] [address] Specific [place], Ur 1.011 Normal 1.005-1.030 [facility] Comment on above: Performed By: #### P TT, NTBNP, HSTNT, CBCDIF, PT, CKCKMB, CMP #### [place] [address] Urobilinogen Qn (U) <2.0 Normal <2.0 [facility] Comment on above: Performed By: #### P TT, NTBNP, HSTNT, CBCDIF, PT, CKCKMB, CMP #### [place] [address] WBC #/vol (Bld) Rare Critically abnormal [facility] Comment on above: Performed By: #### P TT, NTBNP, HSTNT, CBCDIF, PT, CKCKMB, CMP #### [place] [address] PROGRESSon 07-05-2018 Protein mass conc HNO ID: [id number] Author: Geeta (Rn) DEBBIE Bradshaw Service: ? Author Type: Registered Nurse Type: Progress Notes Filed: 07/05/2018 3:09 PM Note Text: CHRONIC CARE ROUNDING Diagnosis: COPD Referral Source: Chronic Care Nurse Status: New Planned Discharge Disposition: Unknown Chronic Care services discussed with patient. Chronic Care brochure offered. OUTCOME OF ROUNDING Declines appointment due to: Not interested. Geeta Bradshaw RN July 05, 2018 3:08 PM [facility] Protein mass conc HNO ID: [id number] Author: Uzma Graff Service: General Internal Medicine Author Type: Physician Type: Progress Notes Filed: 07/06/2018 8:36 AM Note Text: INTERNAL MEDICINE PROGRESS NOTE SERVICE DATE: 07/05/2018 SERVICE TIME: 0900 ADMITTING PHYSICIAN: Uzma Graff Subjective CHIEF COMPLAINT: CHF Current Facility-Administered Medications Medication Dose Route Frequency - dextrose 40 % 15 g 15 g ORAL PRN Or - glucagon 1 mg injection (GLUCAGEN) 1 mg INTRAMUSCULAR PRN Or - dextrose 50% in water 25 mL syringe 12.5 g INTRAVENOUS PRN - insulin lispro injection (rapid acting) (HumaLOG) SUBCUTANEOUS w MEALS - insulin lispro injection (rapid acting) (HumaLOG) SUBCUTANEOUS AT BEDTIME - glimepiride 1 mg tab(s) (AMARYL) 1 mg ORAL DAILY WITH BREAKFAST - amLODIPine 10 mg tab(s) (NORVASC) 10 mg ORAL DAILY - carvedilol 12.5 mg tab(s) (COREG) 12.5 mg ORAL BID w MEALS - furosemide 40 mg tab(s) (LASIX) 40 mg ORAL DAILY - hydrALAZINE 10 mg injection (APRESOLINE) 10 mg INTRAVENOUS q 6 H PRN - predniSONE 20 mg tab(s) (DELTASONE) 20 mg ORAL BID - buPROPion XL 150 mg tab(s) (WELLBUTRIN XL) 150 mg ORAL DAILY - aspirin 81 mg chewable tab(s) 81 mg ORAL DAILY - clopidogrel 75 mg tab(s) (PLAVIX) 75 mg ORAL DAILY - pantoprazole DR 20 mg tab(s) (PROTONIX) 20 mg ORAL DAILY - sertraline (ZOLOFT) tab(s) 150 mg 150 mg ORAL DAILY - atropine 0.5 mg injection 0.5 mg INTRAVENOUS PRN - aluminum-magnesium hydroxide-simethicone 200-200-20 mg/5 mL 30 mL (MAALOX,MYLANTA,MAG-A L PLUS) 30 mL ORAL DAILY PRN - acetaminophen 650 mg tab(s) (TYLENOL) 650 mg ORAL q 6 H PRN - nitroglycerin sublingual 0.4 mg tab(s) (NITROQUICK) 0.4 mg SUBLINGUAL q 5 MIN PRN - ipratropium-albuterol 3 mL nebulizer solution (DUONEB) 3 mL INHALATION q 4 H PRN - furosemide 20 mg injection (LASIX) 20 mg INTRAVENOUS q 12 H 6a/6p - polyethylene glycol 3350 17 g packet (MIRALAX, GLYCOLAX) 17 g ORAL DAILY PRN INTERVAL HISTORY OF PRESENT ILLNESS: No events overnight. Feeling better today. Pt states her son would like her to attend Cardiac rehab following discharge. Objective PHYSICAL EXAM: Patient Vitals for the past 24 hrs: BP Temp Temp src Pulse Resp SpO2 Weight 07/05/18 1144 165/56 36.4 ?C (97.5 ?F) Temporal (!) 54 16 94 % ? 07/05/18 0720 (!) 157/44 36.9 ?C (98.4 ?F) Temporal (!) 57 16 94 % ? 07/05/18 0630 ? 71.7 kg (158 lb 1.6 oz) 07/05/18 0451 194/53 36.3 ?C (97.3 ?F) Temporal Art (!) 59 16 94 % ? 07/05/18 0010 181/51 36.6 ?C (97.9 ?F) Temporal Art (!) 56 18 94 % ? 07/04/18 1937 (!) 146/47 36.7 ?C (98 ?F) Oral (!) 54 16 95 % ? 07/04/18 1536 (!) 149/39 36.4 ?C (97.5 ?F) Temporal (!) 55 16 94 % ? Body mass index is 24.76 kg/m?. GENERAL:?Alert, no distress, cooperative SKIN:?Negative OROPHARYNX:?negative NECK:?Supple LUNGS:?Slight expiratory wheeze, no cough CARDIAC:?Normal S1 and S2; no rubs, murmurs, or gallops ABDOMEN:??Normal abdominal exam? EXTREMITIES:?Normal exam of the extremities NEURO:??Alert, oriented X 3 PULSES:??2+ radial DATA: Diagnostic tests reviewed for today's visit: Most recent labs and imaging results. Most recent labs Most recent imaging Most recent EKG Assessment/Plan Active Problems: Congestive heart failure (CHF) (HCC) POA: Yes - doing well - improved with diuresis - IANDO, Heart Healthy diet - Duonebs prn - Cardiology following Hypertension - better this am - Coreg 12.5mg bid, Vasotec 10 mg bid, Norvasc 10 mg qd - Management per Cardiology CKD 3 - monitor Bun/Cr - labs in am DM - SSI - CC diet - Add Amaryl 2 mg qd Resolved Problems: * No resolved hospital problems. * Medication and Non-Pharmacologic VTE Prophylaxis/Anticoagu lants Anticoagulant AND Antiplatelet Medications (From admission, onward) Start Dose Route Frequency Ordered Stop 06/29/18 1600 aspirin 81 mg chewable tab(s) 81 mg ORAL DAILY 06/29/18 1531 -- 06/29/18 1600 clopidogrel 75 mg tab(s) (PLAVIX) 75 mg ORAL DAILY 06/29/18 1531 -- 06/29/18 1545 vte current anticoag therapy ([place], [place]) 06/29/18 1545 pneumatic compression stockings ([place] 06/29/18 1545 activity - mobilize patient ([place], [place]) VTE Prophylaxis: SIGNATURE: Lisa Toney APRN.INFORMATION DEVELOPER PATIENT NAME: Sarina Lovett DATE: July 05, 2018 TIME: 2:04 PM PAGER/CONTACT #: [facility] CASE MANAGEMon 07-04-2018 CASE MANAGEM HNO ID: [id number] Author: Bro Wood (Sw) Service: Care Management Author Type: Plastic Surgery Nurse Type: Care Mgt Progress Note Filed: 07/04/2018 11:28 AM Note Text: MULTIDISCIPLINARY ROUNDS SERVICE DATE: 07/04/2018 ADMISSION DATE: 06/29/2018 SERVICE TIME: 11:27 AM ANTICIPATED D/C DATE: 07/04/2018 Problem List: ACTIVE PROBLEM LIST Other and Unspecified Hyperlipidemia Essential hypertension, benign Chest Pain Coronary Atherosclerosis Aortic Valve Disorders Tobacco Abuse Hypertensive Emergency Psychiatric Disorder Nicotine use disorder, F17.2 Contrast Dye Induced Nephropathy Acute Renal Failure Superimposed On Stage 3 Chronic Kidney Disease (Hcc) Congestive Heart Failure (Chf) (Hcc) Attendees Present at Rounds: Ticker Wirer: Yoselin Nurse Hosted Services Analyst/Lacrosse Coach Nurse Hosted Services Analyst: Arlin Plastic Surgery Nurse: Bro Pollard Nurse: Toni Needs Discussed on Rounds: Discharge Needs Plan of Care Anticipated Discharge Disposition: Home/Self Care Last Vitals: BP 150/42 Pulse 58 Temp (Src) 97.3 (Temporal) Resp 16 Ht 5' 7 (1.70m) Wt 163 lb 3.2 oz (74.0kg) SpO2 95% BMI 25.55 kg/(m2). O2 Therapy: Room Air Patient still on IV Lasix. Anticipated no skilled needs at d/c. Nursing: DOCUMENTED BY: KARRIE FORTE PATIENT NAME: Sarina Lovett DATE: July 04, 2018 TIME: 11:27 AM CSN: [id number] Normal [facility] CBC and Differentialon 07-04 Abs Baso <0.03 Normal <0.11 [facility] Comment on above: Performed By: #### P TT, NTBNP, HSTNT, CBCDIF, PT, CKCKMB, CMP #### [place] [address] Abs [place] 0.12 k/uL Normal <0.87 [facility] Comment on above: Performed By: #### P TT, NTBNP, HSTNT, CBCDIF, PT, CKCKMB, CMP #### [place] [address] Abs Neut 6.90 k/uL Normal 1.45-7.50 [facility] Comment on above: Performed By: #### P TT, NTBNP, HSTNT, CBCDIF, PT, CKCKMB, CMP #### [place] [id number] Basophils/100 WBC (Bld) 0.0 % Normal [facility] Comment on above: Performed By: #### P TT, NTBNP, HSTNT, CBCDIF, PT, CKCKMB, CMP #### [place] [id number] DTYPE Auto Diff Normal [facility] Comment on above: Performed By: #### P TT, NTBNP, HSTNT, CBCDIF, PT, CKCKMB, CMP #### [place] [address] Eosinophils #/vol (Bld) 10*3/uL Normal <0.46 [facility] Comment on above: Performed By: #### P TT, NTBNP, HSTNT, CBCDIF, PT, CKCKMB, CMP #### [place] [address] Eosinophils/100 WBC (Bld) 0.0 % Normal [facility] Comment on above: Performed By: #### P TT, NTBNP, HSTNT, CBCDIF, PT, CKCKMB, CMP #### [place] [address] Erythrocyte distribution width Ratio (RBC) 14.5 % Normal 11.5-15.0 [facility] Comment on above: Performed By: #### P TT, NTBNP, HSTNT, CBCDIF, PT, CKCKMB, CMP #### [place] [address] Hematocrit Volume Fraction (Bld) 32.8 % Low 36.0-46.0 [facility] Comment on above: Performed By: #### P TT, NTBNP, HSTNT, CBCDIF, PT, CKCKMB, CMP #### [place] [address] Hemoglobin mass conc (Bld) 10.1 g/dL Low 11.5-15.5 [facility] Comment on above: Performed By: #### P TT, NTBNP, HSTNT, CBCDIF, PT, CKCKMB, CMP #### [place] [address] Lymphocytes #/vol (Bld) 0.41 10*3/uL Low 1.00-4.00 [facility] Comment on above: Performed By: #### P TT, NTBNP, HSTNT, CBCDIF, PT, CKCKMB, CMP #### [place] [phone] Lymphocytes/100 WBC (Bld) 5.5 % Normal [facility] Comment on above: Performed By: #### P TT, NTBNP, HSTNT, CBCDIF, PT, CKCKMB, CMP #### [place] [phone] MCH Entitic mass (RBC) 26.7 pG Normal 26.0-34.0 [facility] Comment on above: Performed By: #### P TT, NTBNP, HSTNT, CBCDIF, PT, CKCKMB, CMP #### [place] [phone] MCHC mass conc (RBC) 30.8 g/dL Normal 30.5-36.0 [facility] Comment on above: Performed By: #### P TT, NTBNP, HSTNT, CBCDIF, PT, CKCKMB, CMP #### [place] [phone] MCV Entitic volume (RBC) 86.8 fL Normal 80.0-100.0 [facility] Comment on above: Performed By: #### P TT, NTBNP, HSTNT, CBCDIF, PT, CKCKMB, CMP #### [place] [phone] Monocytes/100 WBC (Bld) 1.6 % Normal [facility] Comment on above: Performed By: #### P TT, NTBNP, HSTNT, CBCDIF, PT, CKCKMB, CMP #### [phone] Neutrophils/100 WBC (Bld) 92.9 % Normal [facility] Comment on above: Performed By: #### P TT, NTBNP, HSTNT, CBCDIF, PT, CKCKMB, CMP #### [place] [phone] Platelet mean volume Entitic volume (Bld) 10.2 fL Normal 9.0-12.7 [facility] Comment on above: Performed By: #### P TT, NTBNP, HSTNT, CBCDIF, PT, CKCKMB, CMP #### [place] [phone] Platelets #/vol (Bld) 205 10*3/uL Normal 150-400 [facility] Comment on above: Performed By: #### P TT, NTBNP, HSTNT, CBCDIF, PT, CKCKMB, CMP #### [place] [phone] RBC #/vol (Bld) 3.78 10*6/uL Low 3.90-5.20 [facility] Comment on above: Performed By: #### P TT, NTBNP, HSTNT, CBCDIF, PT, CKCKMB, CMP #### [place] [phone] WBC #/vol (Bld) 7.43 10*3/uL Normal 3.70-11.00 [facility] Comment on above: Performed By: #### P TT, NTBNP, HSTNT, CBCDIF, PT, CKCKMB, CMP #### [place] [phone] Comp Metabolic Panelon 07-04 Albumin mass conc 3.5 g/dL Normal 3.5-5.0 [facility] Comment on above: Performed By: #### P TT, NTBNP, HSTNT, CBCDIF, PT, CKCKMB, CMP #### [place] [phone] ALP enzyme act/vol 101 U/L Normal 34-123 [facility] Comment on above: Performed By: #### P TT, NTBNP, HSTNT, CBCDIF, PT, CKCKMB, CMP #### [place] [phone] ALT enzyme act/vol 14 U/L Normal 0-45 [facility] Comment on above: Performed By: #### P TT, NTBNP, HSTNT, CBCDIF, PT, CKCKMB, CMP #### [place] [address] Anion gap molar conc 14 mmol/L Normal 9-18 [facility] Comment on above: Performed By: #### P TT, NTBNP, HSTNT, CBCDIF, PT, CKCKMB, CMP #### [place] [address] AST enzyme act/vol 11 U/L Normal 7-40 [facility] Comment on above: Performed By: #### P TT, NTBNP, HSTNT, CBCDIF, PT, CKCKMB, CMP #### [place] [address] Bilirubin mass conc 0.2 mg/dL Normal 0.2-1.3 [facility] Comment on above: Performed By: #### P TT, NTBNP, HSTNT, CBCDIF, PT, CKCKMB, CMP #### [place] [address] Calcium mass conc 8.4 mg/dL Low 8.5-10.5 [facility] Comment on above: Performed By: #### P TT, NTBNP, HSTNT, CBCDIF, PT, CKCKMB, CMP #### [place] [address] Chloride molar conc 95 mmol/L Low 98-110 [facility] Comment on above: Performed By: #### P TT, NTBNP, HSTNT, CBCDIF, PT, CKCKMB, CMP #### [place] [address] CO2 molar conc 28 mmol/L Normal 23-32 [facility] Comment on above: Performed By: #### P TT, NTBNP, HSTNT, CBCDIF, PT, CKCKMB, CMP #### [place] [address] Creatinine mass conc 1.44 mg/dL High 0.70-1.40 [facility] Comment on above: Performed By: #### P TT, NTBNP, HSTNT, CBCDIF, PT, CKCKMB, CMP #### [place] [phone] eGFR- Amer. 43 Low >60 [facility] Comment on above: Performed By: #### P TT, NTBNP, HSTNT, CBCDIF, PT, CKCKMB, CMP #### [place] [phone] GFR/1.73 sq M predicted among non-blacks MDRD vol rate/area (S/P/Bld) 36 . Low >60 [facility] Comment on above: Performed By: #### P TT, NTBNP, HSTNT, CBCDIF, PT, CKCKMB, CMP #### [place] [phone] Glucose mass conc 328 mg/dL High 65-100 [facility] Comment on above: Performed By: #### P TT, NTBNP, HSTNT, CBCDIF, PT, CKCKMB, CMP #### [place] [phone] Potassium molar conc 4.4 mmol/L Normal 3.5-5.0 [facility] Comment on above: Performed By: #### P TT, NTBNP, HSTNT, CBCDIF, PT, CKCKMB, CMP #### [place] [phone] Protein mass conc 6.3 g/dL Normal 6.0-8.4 [facility] Comment on above: Performed By: #### P TT, NTBNP, HSTNT, CBCDIF, PT, CKCKMB, CMP #### [place] [phone] Sodium molar conc 137 mmol/L Normal 132-148 [facility] Comment on above: Performed By: #### P TT, NTBNP, HSTNT, CBCDIF, PT, CKCKMB, CMP #### [facility] [address] [place] [address] Urea nitrogen mass conc 52 mg/dL High 10-22 [facility] Comment on above: Performed By: #### P TT, NTBNP, HSTNT, CBCDIF, PT, CKCKMB, CMP #### [facility] [address] [place] [address] NUTRITIONon 07-04-2018 NUTRITION HNO ID: [id number] Author: Laura Garcia) Bony Service: Nutrition Therapy Author Type: Registered Dietitian Type: Nutrition Filed: 07/04/2018 1:33 PM Note Text: NUTRITION THERAPY INITIAL ASSESSMENT SERVICE DATE: 07/04/2018 SERVICE TIME: 1:17 PM RECOMMENDED 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 In the context of Social/Environmental Circumstance based on: Unintentional Weight Loss: >10% in 6 months Subcutaneous Fat Loss: Mild Loss Muscle Loss: Mild Loss NUTRITION CARE PLAN: Problem, Etiology and Signs/Symptoms: Unintentional wt loss related to variable appetite as evidenced by pt report, NFPE Intervention: Declined supplements Encourage po intake >75% meals Monitor and Evaluation: Goal: Meet >75% of estimated needs Monitor fluid/electrolyte balance Monitor labs, I/Os, vital signs, weight Discharge Nutrition Recommendations: Diet: heart healthy Per HPI: 73-year-old female past medical history coronary artery disease, aortic stenosis, diabetes, hyperlipidemia presents to the emergency department shortness of breath, chest tightness. Patient reports 4 day history of progressively worsening shortness of breath and midsternal chest tightness. Chest tightness intermittent. No active chest discomfort on arrival. States her symptoms are worse when walking long distances. She has also noted bilateral lower extremity swelling and abdominal swelling. Denies history of liver disease. She denies any abdominal pain, nausea vomiting or diarrhea. Denies fevers or chills. Orders Placed This Encounter DIET HEART HEALTHY Standing Status: Standing Number of Occurrences: 1 Order Specific Question: Heart Healthy Answer: 2 GM SODIUM (<200 MG CHOL / LOW SAT FAT) Lines and Drains: Peripheral 06/30/18 2329 Short Left Antecubital 20 Gauge (Active) Nutritional Intake Prior to Admission: 0-25% estimated energy needs over the past 5 month(s) but started eating well again about 1 month ago per pt. Stated her poor po was probably due to depression. Eats an average of 75% x past 7 meals recorded. States she is eating well and doesn't want any supplements at this time. GI symptoms: none Nutrition Abdominal Exam:, abdomen is soft and bowel sounds are normal ANTHROPOMETRICS Height: 170.2 cm (5' 7 ) Admission Weight: 73.5 kg (162 lb) Current Weight: 74 kg (163 lb 3.2 oz) Body mass index is 25.56 kg/m?. overweight Weight has decreased by 14 kg over 6 months representing 16 % weight change clinically significant Stated the wt loss happened over the past 6 months Last Wt 07/04/18 : 74 kg (163 lb 3.2 oz) 06/06/18 : 73.5 kg (162 lb) 05/02/18 : 73.8 kg (162 lb 9.6 oz) 04/08/18 : 76.1 kg (167 lb 11.2 oz) 09/11/15 : 88.3 kg (194 lb 9.6 oz) 06/12/15 : 88 kg (194 lb) 06/04/15 : 87.6 kg (193 lb 1.6 oz) 02/28/15 : 85 kg (187 lb 6.3 oz) 06/08/06 : 79.4 kg (175 lb) 03/02/06 : 81.6 kg (180 lb) 02/02/06 : 88.9 kg (196 lb) 11/08/03 : 87.5 kg (193 lb) 06/18/03 : 89.8 kg (198 lb) 05/16/03 : 87.3 kg (192 lb 6.4 oz) 03/28/03 : 87.6 kg (193 lb 1.6 oz) Dosing Weight: 74 kg Resting Metabolic Rate: 1292 Estimated kilocalorie needs: 3514-0865 kilocalories determined by 25-30 kcal/kg Estimated protein needs: 74-89 grams determined by 1.0-1.2 g/kg Dosing weight Estimated fluid needs: 3979-2584 milliliters based on 1 mL per kcal NUTRITION FOCUSED PHYSICAL EXAM: Subcutaneous Fat Loss Orbital Mild Triceps Mild Mid-axillary at the iliac crest Unable to determine at this time Muscle Loss Locations: Temporalis Mild Pectoralis Mild Deltoids Mild Interosseous Mild Latissimus dorsi, trapezius No muscle loss Quadriceps Mild Gastrocnemius Mild/Moderate Potential micronutrient deficiency revealed in: No deficiency identified Edema: Yes Lower extremities Mild 1+ Ascites: No Assessment of Functional Status: Unable to assess Temperature Max in 24 hours: Temp (24hrs), Av.4 ?C (97.5 ?F), Min:36 ?C (96.8 ?F), Max:36.6 ?C (97.8 ?F) BP 183/52 Pulse (!) 56 Temp 36.6 ?C (97.8 ?F) (Oral) Resp 18 Ht 170.2 cm (5' 7 ) Wt 74 kg (163 lb 3.2 oz) SpO2 94% BMI 25.56 kg/m? Recent Labs 07/04/18 0550 GLUC 328* BUN 52* CREAT 1.44* NA 137 K 4.4 CHLOR 95* CO2 28 ALB 3.5 HB 10.1* HCT 32.8* WBC 7.43 Potential Signs of Inflammation: hyperglycemia and chronic condition Current Facility-Administered Medications Medication Dose Route Frequency - dextrose 40 % 15 g 15 g ORAL PRN Or - glucagon 1 mg injection (GLUCAGEN) 1 mg INTRAMUSCULAR PRN Or - dextrose 50% in water 25 mL syringe 12.5 g INTRAVENOUS PRN - insulin lispro injection (rapid acting) (HumaLOG) SUBCUTANEOUS w MEALS - glimepiride 1 mg tab(s) (AMARYL) 1 mg ORAL DAILY WITH BREAKFAST - amLODIPine 5 mg tab(s) (NORVASC) 5 mg ORAL DAILY - carvedilol 12.5 mg tab(s) (COREG) 12.5 mg ORAL BID w MEALS - furosemide 40 mg tab(s) (LASIX) 40 mg ORAL DAILY - enalapril 10 mg tab(s) (VASOTEC) 10 mg ORAL DAILY - hydrALAZINE 10 mg injection (APRESOLINE) 10 mg INTRAVENOUS q 6 H PRN - predniSONE 20 mg tab(s) (DELTASONE) 20 mg ORAL BID - perflutren lipid microspheres 1.1 mg/mL 1.3 mL injection (DEFINITY) 1.3 mL INTRAVENOUS DIRECTED PRN - buPROPion XL 150 mg tab(s) (WELLBUTRIN XL) 150 mg ORAL DAILY - aspirin 81 mg chewable tab(s) 81 mg ORAL DAILY - clopidogrel 75 mg tab(s) (PLAVIX) 75 mg ORAL DAILY - pantoprazole DR 20 mg tab(s) (PROTONIX) 20 mg ORAL DAILY - sertraline (ZOLOFT) tab(s) 150 mg 150 mg ORAL DAILY - atropine 0.5 mg injection 0.5 mg INTRAVENOUS PRN - aluminum-magnesium hydroxide-simethicone 200-200-20 mg/5 mL 30 mL (MAALOX,MYLANTA,MAG-A L PLUS) 30 mL ORAL DAILY PRN - acetaminophen 650 mg tab(s) (TYLENOL) 650 mg ORAL q 6 H PRN - nitroglycerin sublingual 0.4 mg tab(s) (NITROQUICK) 0.4 mg SUBLINGUAL q 5 MIN PRN - ipratropium-albuterol 3 mL nebulizer solution (DUONEB) 3 mL INHALATION q 4 H PRN - furosemide 20 mg injection (LASIX) 20 mg INTRAVENOUS q 12 H 6a/6p - polyethylene glycol 3350 17 g packet (MIRALAX, GLYCOLAX) 17 g ORAL DAILY PRN Date 07/03/18699 - 07/04/18 0659 07/04/18 07 - 07/05/18 0659 Shift 4888-1519 4211-2766 0578-2452 24 Hour Total 3382-3480 5742-9340 2908-0769 24 Hour Total INTAKE PO 700 700 PO 700 700 Shift Total 700 700 OUTPUT Urine 008 951 9356 1800 Void (ml) 660 712 8015 1800 Urine Not Saved. 3 x 1 x 4 x # of BMs Number of BMs 3 x 1 x 4 x Shift Total 244 529 0199 1800 Weight (kg) 75.3 75.3 74 74 74 74 74 74 MNT Billing Type: Initial Assess/15 min 4 units SIGNATURE: Laura Lovett, MS,RD,LD,CNSC PATIENT NAME: Sarina Lovett DATE: July 04, 2018 TIME: 1:17 PM PAGER: [phone] [facility] PROGRESSon 07-04-2018 Protein mass conc HNO ID: [id number] Author: Uzma Graff Service: General Internal Medicine Author Type: Physician Type: Progress Notes Filed: 07/05/2018 12:10 AM Note Text: INTERNAL MEDICINE PROGRESS NOTE SERVICE DATE: 07/04/2018 SERVICE TIME: 0900 ADMITTING PHYSICIAN: Uzma Graff Subjective CHIEF COMPLAINT: CHF Current Facility-Administered Medications Medication Dose Route Frequency - dextrose 40 % 15 g 15 g ORAL PRN Or - glucagon 1 mg injection (GLUCAGEN) 1 mg INTRAMUSCULAR PRN Or - dextrose 50% in water 25 mL syringe 12.5 g INTRAVENOUS PRN - insulin lispro injection (rapid acting) (HumaLOG) SUBCUTANEOUS w MEALS - insulin lispro injection (rapid acting) (HumaLOG) SUBCUTANEOUS AT BEDTIME - glimepiride 1 mg tab(s) (AMARYL) 1 mg ORAL DAILY WITH BREAKFAST - enalapril 10 mg tab(s) (VASOTEC) 10 mg ORAL BID - carvedilol 12.5 mg tab(s) (COREG) 12.5 mg ORAL BID w MEALS - furosemide 40 mg tab(s) (LASIX) 40 mg ORAL DAILY - hydrALAZINE 10 mg injection (APRESOLINE) 10 mg INTRAVENOUS q 6 H PRN - predniSONE 20 mg tab(s) (DELTASONE) 20 mg ORAL BID - perflutren lipid microspheres 1.1 mg/mL 1.3 mL injection (DEFINITY) 1.3 mL INTRAVENOUS DIRECTED PRN - buPROPion XL 150 mg tab(s) (WELLBUTRIN XL) 150 mg ORAL DAILY - aspirin 81 mg chewable tab(s) 81 mg ORAL DAILY - clopidogrel 75 mg tab(s) (PLAVIX) 75 mg ORAL DAILY - pantoprazole DR 20 mg tab(s) (PROTONIX) 20 mg ORAL DAILY - sertraline (ZOLOFT) tab(s) 150 mg 150 mg ORAL DAILY - atropine 0.5 mg injection 0.5 mg INTRAVENOUS PRN - aluminum-magnesium hydroxide-simethicone 200-200-20 mg/5 mL 30 mL (MAALOX,MYLANTA,MAG-A L PLUS) 30 mL ORAL DAILY PRN - acetaminophen 650 mg tab(s) (TYLENOL) 650 mg ORAL q 6 H PRN - nitroglycerin sublingual 0.4 mg tab(s) (NITROQUICK) 0.4 mg SUBLINGUAL q 5 MIN PRN - ipratropium-albuterol 3 mL nebulizer solution (DUONEB) 3 mL INHALATION q 4 H PRN - furosemide 20 mg injection (LASIX) 20 mg INTRAVENOUS q 12 H 6a/6p - polyethylene glycol 3350 17 g packet (MIRALAX, GLYCOLAX) 17 g ORAL DAILY PRN INTERVAL HISTORY OF PRESENT ILLNESS: No events overnight. Feeling better today. Blood glucose elevated, reports takes oral meds bid but is uncertain what. Chart review shows [place], will restart. Pt states her son would like her to attend Cardiac rehab following discharge. Objective PHYSICAL EXAM: Patient Vitals for the past 24 hrs: BP Temp Temp src Pulse Resp SpO2 Weight 07/04/18 1536 (!) 149/39 36.4 ?C (97.5 ?F) Temporal (!) 55 16 94 % ? 07/04/18 1400 (!) 136/44 ? ? (!) 55 ? ? ? 07/04/18 1207 183/52 36.6 ?C (97.8 ?F) Oral (!) 56 18 94 % ? 07/04/18 0822 (!) 150/42 ? 07/04/18 0654 195/63 36.3 ?C (97.3 ?F) Temporal (!) 58 16 95 % ? 07/04/18 0628 ? 74 kg (163 lb 3.2 oz) 07/04/18 0510 171/50 36.4 ?C (97.5 ?F) Oral (!) 58 18 93 % ? 07/04/18 0026 182/52 36 ?C (96.8 ?F) Temporal Art (!) 53 16 93 % ? 07/03/18 2056 162/50 36.6 ?C (97.8 ?F) Oral (!) 58 16 95 % ? Body mass index is 25.56 kg/m?. GENERAL: Alert, no distress, cooperative SKIN: Negative OROPHARYNX: negative NECK: Supple LUNGS: Slight expiratory wheeze, no cough CARDIAC: Normal S1 and S2; no rubs, murmurs, or gallops ABDOMEN: Normal abdominal exam EXTREMITIES: Normal exam of the extremities NEURO: Alert, oriented X 3 PULSES: 2+ radial DATA: Diagnostic tests reviewed for today's visit: Most recent labs and imaging results. Most recent labs Most recent imaging Most recent EKG Assessment/Plan Active Problems: Congestive heart failure (CHF) (HCC) POA: Yes - improved with diuresis - IANDO, Heart Healthy diet - Duonebs prn - Cardiology following Hypertension - better this am - Coreg 12.5mg bid, Vasotec 10 mg bid, Norvasc 10 mg qd - Management per Cardiology CKD 3 - monitor Bun/Cr - labs in am DM - SSI - CC diet - Add Amaryl 1 mg qd Resolved Problems: * No resolved hospital problems. * Medication and Non-Pharmacologic VTE Prophylaxis/Anticoagu lants Anticoagulant AND Antiplatelet Medications (From admission, onward) Start Dose Route Frequency Ordered Stop 06/29/18 1600 aspirin 81 mg chewable tab(s) 81 mg ORAL DAILY 06/29/18 1531 -- 06/29/18 1600 clopidogrel 75 mg tab(s) (PLAVIX) 75 mg ORAL DAILY 06/29/18 1531 -- 06/29/18 1545 vte current anticoag therapy ([place]) 06/29/18 1545 pneumatic compression stockings ([place], [place]) 06/29/18 1545 activity - mobilize patient ([place]) VTE Prophylaxis: SIGNATURE: Lisa Toney APRN.CNP PATIENT NAME: Sarina Lovett DATE: July 04, 2018 TIME: 5:09 PM PAGER/CONTACT #: [facility] CONSULT PROGon 07-03-2018 Protein mass conc HNO ID: [id number] Author: Deanna Yoo Service: Cardiovascular Medicine Author Type: Nurse Practitioner Type: Consult Progress Note Filed: 07/03/2018 10:29 AM Note Text: PROGRESS NOTE CARDIOLOGY SERVICE SERVICE DATE: 07/03/2018 SERVICE TIME: 10:17 AM Subjective INTERIM HISTORY: feeling better but some lightheadedness with standing up. No chest pain or shortness of breath. Objective PHYSICAL EXAM: Body mass index is 26 kg/m?. O2 Therapy: Room Air No data recorded Patient Vitals for the past 24 hrs: BP Temp Temp src Pulse Resp SpO2 Weight 07/03/18 0725 168/55 36.1 ?C (97 ?F) Temporal (!) 57 17 95 % ? 07/03/18 0544 (!) 157/46 ? 75.3 kg (166 lb) 07/03/18 0449 182/57 36.3 ?C (97.3 ?F) Temporal (!) 52 18 92 % ? 07/02/18 2310 181/51 36.2 ?C (97.2 ?F) Oral (!) 51 20 93 % ? 07/02/182024 167/53 36.2 ?C (97.2 ?F) Temporal (!) 51 18 94 % ? 07/02/18 1659 158/59 36.4 ?C (97.5 ?F) Temporal (!) 54 18 96 % ? 07/02/18 1300 (!) 153/48 ? ? (!) 57 ? ? ? 07/02/18 1227 177/55 36.2 ?C (97.2 ?F) Temporal (!) 54 20 95 % ? AANDOx3 NAD Neck: no JVD Lungs: faint crackles LLL Heart RRR slow. 4/6 systolic murmur Ext: no edema MEDICATIONS: Current Facility-Administered Medications Medication Dose Route Frequency - buPROPion XL 150 mg tab(s) (WELLBUTRIN XL) 150 mg ORAL DAILY - aspirin 81 mg chewable tab(s) 81 mg ORAL DAILY - clopidogrel 75 mg tab(s) (PLAVIX) 75 mg ORAL DAILY - pantoprazole DR 20 mg tab(s) (PROTONIX) 20 mg ORAL DAILY - sertraline (ZOLOFT) tab(s) 150 mg 150 mg ORAL DAILY - atropine 0.5 mg injection 0.5 mg INTRAVENOUS PRN - aluminum-magnesium hydroxide-simethicone 200-200-20 mg/5 mL 30 mL (MAALOX,MYLANTA,MAG-A L PLUS) 30 mL ORAL DAILY PRN - acetaminophen 650 mg tab(s) (TYLENOL) 650 mg ORAL q 6 H PRN - nitroglycerin sublingual 0.4 mg tab(s) (NITROQUICK) 0.4 mg SUBLINGUAL q 5 MIN PRN - ipratropium-albuterol 3 mL nebulizer solution (DUONEB) 3 mL INHALATION q 4 H PRN - furosemide 20 mg injection (LASIX) 20 mg INTRAVENOUS q 12 H 6a/6p - polyethylene glycol 3350 17 g packet (MIRALAX, GLYCOLAX) 17 g ORAL DAILY PRN - predniSONE 20 mg tab(s) (DELTASONE) 20 mg ORAL BID - perflutren lipid microspheres 1.1 mg/mL 1.3 mL injection (DEFINITY) 1.3 mL INTRAVENOUS DIRECTED PRN - enalapril 10 mg tab(s) (VASOTEC) 10 mg ORAL DAILY - hydrALAZINE 10 mg injection (APRESOLINE) 10 mg INTRAVENOUS q 6 H PRN - amLODIPine 5 mg tab(s) (NORVASC) 5 mg ORAL DAILY - carvedilol 12.5 mg tab(s) (COREG) 12.5 mg ORAL BID w MEALS DATA: Diagnostic tests reviewed for today's visit: Most recent labs and imaging results. Past 72 Hour Labs: Recent Labs 07/02/18 0435 WBC 5.92 RBC 3.53* HB 9.4* HCT 31.0* MCV 87.8 MCH 26.6 MCHC 30.3* RDWCV 14.5 PLT 194 MPV 9.9 NEUTP 90.9 LYMPHP 5.4 MONOP 3.7 EODINP 0.0 BASOP 0.0 ABSNEUT 5.38 ABSMONO 0.22 ABSEOSIN <0.03 ABSBASO <0.03 GLUC 214* BUN 42* CREAT 1.47* NA 137 K 4.2 CHLOR 98 CO2 26 TPROT 6.3 ALB 3.3* CA 8.3* ALKPHOS 87 TBILI 0.2 AST 8 ALT 12 Last Lab Drawn: TSH 3.060 06/02/2015 ProBNP 43,129 07/02/2018 Triglyceride 301 03/26/2018 HDL Cholesterol 33 03/26/2018 LDL Cholesterol 221 03/26/2018 Cholesterol, Total 314 03/26/2018 Assessment/Plan Active Problems: Congestive heart failure (CHF) (HCC) POA: Yes Assessment AND Plan: pretty well compensated. Will start PO lasix tomorrow. HTN -as her HR has been low 50's, will decrease coreg to 12.5mg Add norvasc 5mg and plan to increase if insufficient BP control Continue enalapril 10mg daily Resolved Problems: * No resolved hospital problems. * Medication and Non-Pharmacologic VTE Prophylaxis/Anticoagu lants Anticoagulant AND Antiplatelet Medications (From admission, onward) Start Dose Route Frequency Ordered Stop 06/29/18 1600 aspirin 81 mg chewable tab(s) 81 mg ORAL DAILY 06/29/18 1531 -- 06/29/18 1600 clopidogrel 75 mg tab(s) (PLAVIX) 75 mg ORAL DAILY 06/29/18 1531 -- @RADHA ARGUETA([id number])@ VTE Prophylaxis: VTE prophylaxis appropriate SIGNATURE: Deanna Yoo APRN.INFORMATION DEVELOPER PATIENT NAME: Sarina Lovett DATE: July 03, 2018 TIME: 10:17 AM PAGER/CONTACT #: [facility] PROGRESSon 07-03-2018 Protein mass conc HNO ID: [id number] Author: Uzma Graff Service: General Internal Medicine Author Type: Physician Type: Progress Notes Filed: 07/05/2018 12:13 AM Note Text: INTERNAL MEDICINE PROGRESS NOTE SERVICE DATE: 07/03/2018 SERVICE TIME: 0800 ADMITTING PHYSICIAN: Uzma Graff Subjective CHIEF COMPLAINT: CHF Current Facility-Administered Medications Medication Dose Route Frequency - amLODIPine 5 mg tab(s) (NORVASC) 5 mg ORAL DAILY - enalapril 10 mg tab(s) (VASOTEC) 10 mg ORAL DAILY - hydrALAZINE 10 mg injection (APRESOLINE) 10 mg INTRAVENOUS q 6 H PRN - predniSONE 20 mg tab(s) (DELTASONE) 20 mg ORAL BID - perflutren lipid microspheres 1.1 mg/mL 1.3 mL injection (DEFINITY) 1.3 mL INTRAVENOUS DIRECTED PRN - buPROPion XL 150 mg tab(s) (WELLBUTRIN XL) 150 mg ORAL DAILY - aspirin 81 mg chewable tab(s) 81 mg ORAL DAILY - clopidogrel 75 mg tab(s) (PLAVIX) 75 mg ORAL DAILY - pantoprazole DR 20 mg tab(s) (PROTONIX) 20 mg ORAL DAILY - sertraline (ZOLOFT) tab(s) 150 mg 150 mg ORAL DAILY - atropine 0.5 mg injection 0.5 mg INTRAVENOUS PRN - aluminum-magnesium hydroxide-simethicone 200-200-20 mg/5 mL 30 mL (MAALOX,MYLANTA,MAG-A L PLUS) 30 mL ORAL DAILY PRN - acetaminophen 650 mg tab(s) (TYLENOL) 650 mg ORAL q 6 H PRN - nitroglycerin sublingual 0.4 mg tab(s) (NITROQUICK) 0.4 mg SUBLINGUAL q 5 MIN PRN - ipratropium-albuterol 3 mL nebulizer solution (DUONEB) 3 mL INHALATION q 4 H PRN - furosemide 20 mg injection (LASIX) 20 mg INTRAVENOUS q 12 H 6a/6p - polyethylene glycol 3350 17 g packet (MIRALAX, GLYCOLAX) 17 g ORAL DAILY PRN INTERVAL HISTORY OF PRESENT ILLNESS: Elevated b/p overnight, received hydralazine x 2 with good results, cardiology following, lisinopril increased. Feeling better today, cont with le Objective PHYSICAL EXAM: Patient Vitals for the past 24 hrs: BP Temp Temp src Pulse Resp SpO2 Weight 07/03/18 0725 168/55 36.1 ?C (97 ?F) Temporal (!) 57 17 95 % ? 07/03/18 0544 (!) 157/46 ? 75.3 kg (166 lb) 07/03/18 0449 182/57 36.3 ?C (97.3 ?F) Temporal (!) 52 18 92 % ? 07/02/18 2310 181/51 36.2 ?C (97.2 ?F) Oral (!) 51 20 93 % ? 07/02/18 202 167/53 36.2 ?C (97.2 ?F) Temporal (!) 51 18 94 % ? 07/02/18 1659 158/59 36.4 ?C (97.5 ?F) Temporal (!) 54 18 96 % ? 07/02/18 1300 (!) 153/48 ? ? (!) 57 ? ? ? 07/02/18 1227 177/55 36.2 ?C (97.2 ?F) Temporal (!) 54 20 95 % ? Body mass index is 26 kg/m?. GENERAL: Alert, no distress, cooperative SKIN: Negative OROPHARYNX: negative NECK: Supple LUNGS: Slight expiratory wheeze, no cough CARDIAC: Normal S1 and S2; no rubs, murmurs, or gallops ABDOMEN: Normal abdominal exam EXTREMITIES: Normal exam of the extremities NEURO: Alert, oriented X 3 PULSES: 2+ radial DATA: Diagnostic tests reviewed for today's visit: Most recent labs and imaging results. Most recent labs Most recent imaging Most recent EKG Assessment/Plan Active Problems: Congestive heart failure (CHF) (HCC) POA: Yes - improved with diuresis - IANDO, Heart Healthy diet - Duonebs prn - Cardiology following Hypertension - hydralazine prn x 2, better this am - lisinopril increased, elevated b/p overnight - Management per Cardiology CKD 3 - monitor Bun/Cr - labs in am Resolved Problems: * No resolved hospital problems. * Medication and Non-Pharmacologic VTE Prophylaxis/Anticoagu lants Anticoagulant AND Antiplatelet Medications (From admission, onward) Start Dose Route Frequency Ordered Stop 06/29/18 1600 aspirin 81 mg chewable tab(s) 81 mg ORAL DAILY 06/29/18 153 -- 06/29/18 1600 clopidogrel 75 mg tab(s) (PLAVIX) 75 mg ORAL DAILY 06/29/18 153 -- 06/29/18 1545 vte current anticoag therapy ([place], [place]) 06/29/18 1545 pneumatic compression stockings ([place] 06/29/18 1545 activity - mobilize patient ([place]) VTE Prophylaxis: SIGNATURE: Lisa Toney APRN.CNP PATIENT NAME: Sarina Lovett DATE: July 03, 2018 TIME: 11:28 AM PAGER/CONTACT #: Normal [facility] CBC and Differentialon 07-02 Abs Baso <0.03 Normal <0.11 [facility] Comment on above: Performed By: #### P TT, NTBNP, HSTNT, CBCDIF, PT, CKCKMB, CMP #### [place] [phone] Abs [place] 0.22 k/uL Normal <0.87 [facility] Comment on above: Performed By: #### P TT, NTBNP, HSTNT, CBCDIF, PT, CKCKMB, CMP #### [place] [phone] Abs Neut 5.38 k/uL Normal 1.45-7.50 [facility] Comment on above: Performed By: #### P TT, NTBNP, HSTNT, CBCDIF, PT, CKCKMB, CMP #### [place] [phone] Basophils/100 WBC (Bld) 0.0 % Normal [facility] Comment on above: Performed By: #### P TT, NTBNP, HSTNT, CBCDIF, PT, CKCKMB, CMP #### [place] [phone] DTYPE Auto Diff Normal [facility] Comment on above: Performed By: #### P TT, NTBNP, HSTNT, CBCDIF, PT, CKCKMB, CMP #### [place] [address] Eosinophils #/vol (Bld) 10*3/uL Normal <0.46 [facility] Comment on above: Performed By: #### P TT, NTBNP, HSTNT, CBCDIF, PT, CKCKMB, CMP #### [place] [address] Eosinophils/100 WBC (Bld) 0.0 % Normal [facility] Comment on above: Performed By: #### P TT, NTBNP, HSTNT, CBCDIF, PT, CKCKMB, CMP #### [place] [address] Erythrocyte distribution width Ratio (RBC) 14.5 % Normal 11.5-15.0 [facility] Comment on above: Performed By: #### P TT, NTBNP, HSTNT, CBCDIF, PT, CKCKMB, CMP #### [place] [address] Hematocrit Volume Fraction (Bld) 31.0 % Low 36.0-46.0 [facility] Comment on above: Performed By: #### P TT, NTBNP, HSTNT, CBCDIF, PT, CKCKMB, CMP #### [place] [address] Hemoglobin mass conc (Bld) 9.4 g/dL Low 11.5-15.5 [facility] Comment on above: Performed By: #### P TT, NTBNP, HSTNT, CBCDIF, PT, CKCKMB, CMP #### [place] [address] Lymphocytes #/vol (Bld) 0.32 10*3/uL Low 1.00-4.00 [facility] Comment on above: Performed By: #### P TT, NTBNP, HSTNT, CBCDIF, PT, CKCKMB, CMP #### [place] [id number] Lymphocytes/100 WBC (Bld) 5.4 % Normal [facility] Comment on above: Performed By: #### P TT, NTBNP, HSTNT, CBCDIF, PT, CKCKMB, CMP #### [place] [phone] MCH Entitic mass (RBC) 26.6 pG Normal 26.0-34.0 [facility] Comment on above: Performed By: #### P TT, NTBNP, HSTNT, CBCDIF, PT, CKCKMB, CMP #### [place] [id number] MCHC mass conc (RBC) 30.3 g/dL Low 30.5-36.0 [facility] Comment on above: Performed By: #### P TT, NTBNP, HSTNT, CBCDIF, PT, CKCKMB, CMP #### [place] [phone] MCV Entitic volume (RBC) 87.8 fL Normal 80.0-100.0 [facility] Comment on above: Performed By: #### P TT, NTBNP, HSTNT, CBCDIF, PT, CKCKMB, CMP #### [place] [id number] Monocytes/100 WBC (Bld) 3.7 % Normal [facility] Comment on above: Performed By: #### P TT, NTBNP, HSTNT, CBCDIF, PT, CKCKMB, CMP #### [place] [id number] Neutrophils/100 WBC (Bld) 90.9 % Normal [facility] Comment on above: Performed By: #### P TT, NTBNP, HSTNT, CBCDIF, PT, CKCKMB, CMP #### [place] [id number] Platelet mean volume Entitic volume (Bld) 9.9 fL Normal 9.0-12.7 [facility] Comment on above: Performed By: #### P TT, NTBNP, HSTNT, CBCDIF, PT, CKCKMB, CMP #### [place] [phone] Platelets #/vol (Bld) 194 10*3/uL Normal 150-400 [facility] Comment on above: Performed By: #### P TT, NTBNP, HSTNT, CBCDIF, PT, CKCKMB, CMP #### [place] [phone] RBC #/vol (Bld) 3.53 10*6/uL Low 3.90-5.20 [facility] Comment on above: Performed By: #### P TT, NTBNP, HSTNT, CBCDIF, PT, CKCKMB, CMP #### [place] [phone] WBC #/vol (Bld) 5.92 10*3/uL Normal 3.70-11.00 [facility] Comment on above: Performed By: #### P TT, NTBNP, HSTNT, CBCDIF, PT, CKCKMB, CMP #### [place] [address] CONSULT PROGon 07-02-2018 Protein mass conc HNO ID: [id number] Author: Jonathan Mchugh Service: Cardiovascular Disease Author Type: Physician Type: Consult Progress Note Filed: 07/02/2018 10:17 AM Note Text: Cardiology Progress Note Patient Name: Sarina Lovett Today's Date: July 02, 2018 Attending: Uzma Graff Subjective: Improved shortness of breath , no chest pain Assessment/Plan: CHF improved with diuresis HTN not controlled -increased lisinopril -IV hydralazine prn -may need to add amlodipine Dr Browne to follow Objective: 07/02/18 0456 07/02/18 0630 07/02/18 0737 07/02/18 0800 BP: 182/58 183/55 Pulse: (!) 57 Resp: 18 Temp: 36.2 ?C (97.2 ?F) TempSrc: Temporal SpO2: 92% 95% Weight: 76.5 kg (168 lb 11.2 oz) Height: BP 183/55 Pulse (!) 57 Temp 36.2 ?C (97.2 ?F) (Temporal) Resp 18 Ht 170.2 cm (5' 7 ) Wt 76.5 kg (168 lb 11.2 oz) SpO2 95% BMI 26.42 kg/m? Intake/Output Summary (Last 24 hours) at 07/02/2018 1013 Last data filed at 07/01/2018 1700 Gross per 24 hour Intake 450 ml Output 450 ml Net 0 ml Physical Exam: General appearance: alert and in no acute distress Head: normal Lungs: few creps Heart: RRR with 2/6 systolic murmur Abdomen: Normal abdominal exam, Abdomen soft, non-tender. Bowel sounds normal. No masses, organomegaly Extremities: trace edema Labs: CBC, Coags, BMP, Mg, Phos Recent Labs 07/02/1843407/01/1843906/30/18 0532 06/29/18 1735 WBC 5.92 9.43 5.42 -- HB 9.4* 9.3* 10.0* -- HCT 31.0* 30.7* 33.2* -- PLT 194 218 214 -- NA 137 139 144 -- K 4.2 4.1 5.8* -- CHLOR 98 100 105 -- CO2 26 25 26 -- BUN 42* 37* 22 -- CREAT 1.47* 1.59* 1.27 -- GLUC 214* 193* 232* -- CA 8.3* 8.5 9.0 -- MG -- -- 2.2 1.6* Liver Function, Amylase, AND Lipase Recent Labs 07/02/1843407/01/1843906/30/18 0532 TPROT 6.3 6.1 7.0 ALB 3.3* 3.3* 3.6 ALT 12 12 14 AST 8 8 11 ALKPHOS 87 85 93 TBILI 0.2 0.2 0.3 Cardiac Enzymes Medications: Current Facility-Administered Medications Medication Dose Route Frequency - buPROPion XL 150 mg tab(s) (WELLBUTRIN XL) 150 mg ORAL DAILY - aspirin 81 mg chewable tab(s) 81 mg ORAL DAILY - clopidogrel 75 mg tab(s) (PLAVIX) 75 mg ORAL DAILY - pantoprazole DR 20 mg tab(s) (PROTONIX) 20 mg ORAL DAILY - sertraline (ZOLOFT) tab(s) 150 mg 150 mg ORAL DAILY - atropine 0.5 mg injection 0.5 mg INTRAVENOUS PRN - aluminum-magnesium hydroxide-simethicone 200-200-20 mg/5 mL 30 mL (MAALOX,MYLANTA,MAG-A L PLUS) 30 mL ORAL DAILY PRN - acetaminophen 650 mg tab(s) (TYLENOL) 650 mg ORAL q 6 H PRN - nitroglycerin sublingual 0.4 mg tab(s) (NITROQUICK) 0.4 mg SUBLINGUAL q 5 MIN PRN - ipratropium-albuterol 3 mL nebulizer solution (DUONEB) 3 mL INHALATION q 4 H PRN - furosemide 20 mg injection (LASIX) 20 mg INTRAVENOUS q 12 H 6a/6p - polyethylene glycol 3350 17 g packet (MIRALAX, GLYCOLAX) 17 g ORAL DAILY PRN - predniSONE 20 mg tab(s) (DELTASONE) 20 mg ORAL BID - perflutren lipid microspheres 1.1 mg/mL 1.3 mL injection (DEFINITY) 1.3 mL INTRAVENOUS DIRECTED PRN - carvedilol 25 mg tab(s) (COREG) 25 mg ORAL BID w MEALS - [START ON 07/03/2018] enalapril 10 mg tab(s) (VASOTEC) 10 mg ORAL DAILY - hydrALAZINE 10 mg injection (APRESOLINE) 10 mg INTRAVENOUS q 6 H PRN Jonathan Mchugh MD Cardiology Today's Date: July 02, 2018 Time: 10:13 AM Normal [facility] Comp Metabolic Panelon 07-02 Albumin mass conc 3.3 g/dL Low 3.5-5.0 [facility] Comment on above: Performed By: #### P TT, NTBNP, HSTNT, CBCDIF, PT, CKCKMB, CMP #### [facility] [address] [place] [address] ALP enzyme act/vol 87 U/L Normal 34-123 [facility] Comment on above: Performed By: #### P TT, NTBNP, HSTNT, CBCDIF, PT, CKCKMB, CMP #### [place] [address] ALT enzyme act/vol 12 U/L Normal 0-45 [facility] Comment on above: Performed By: #### P TT, NTBNP, HSTNT, CBCDIF, PT, CKCKMB, CMP #### [place] [address] Anion gap molar conc 13 mmol/L Normal 9-18 [facility] Comment on above: Performed By: #### P TT, NTBNP, HSTNT, CBCDIF, PT, CKCKMB, CMP #### [place] [address] AST enzyme act/vol 8 U/L Normal 7-40 [facility] Comment on above: Performed By: #### P TT, NTBNP, HSTNT, CBCDIF, PT, CKCKMB, CMP #### [address] Bilirubin mass conc 0.2 mg/dL Normal 0.2-1.3 [facility] Comment on above: Performed By: #### P TT, NTBNP, HSTNT, CBCDIF, PT, CKCKMB, CMP #### [place] [address] Calcium mass conc 8.3 mg/dL Low 8.5-10.5 [facility] Comment on above: Performed By: #### P TT, NTBNP, HSTNT, CBCDIF, PT, CKCKMB, CMP #### [place] [address] Chloride molar conc 98 mmol/L Normal 98-110 [facility] Comment on above: Performed By: #### P TT, NTBNP, HSTNT, CBCDIF, PT, CKCKMB, CMP #### [place] [phone] CO2 molar conc 26 mmol/L Normal 23-32 [facility] Comment on above: Performed By: #### P TT, NTBNP, HSTNT, CBCDIF, PT, CKCKMB, CMP #### [place] [phone] Creatinine mass conc 1.47 mg/dL High 0.70-1.40 [facility] Comment on above: Performed By: #### P TT, NTBNP, HSTNT, CBCDIF, PT, CKCKMB, CMP #### [place] [phone] eGFR- Amer. 42 Low >60 [facility] Comment on above: Performed By: #### P TT, NTBNP, HSTNT, CBCDIF, PT, CKCKMB, CMP #### [place] [phone] GFR/1.73 sq M predicted among non-blacks MDRD vol rate/area (S/P/Bld) 35 . Low >60 [facility] Comment on above: Performed By: #### P TT, NTBNP, HSTNT, CBCDIF, PT, CKCKMB, CMP #### [place] [phone] Glucose mass conc 214 mg/dL High 65-100 [facility] Comment on above: Performed By: #### P TT, NTBNP, HSTNT, CBCDIF, PT, CKCKMB, CMP #### [place] [phone] Potassium molar conc 4.2 mmol/L Normal 3.5-5.0 [facility] Comment on above: Performed By: #### P TT, NTBNP, HSTNT, CBCDIF, PT, CKCKMB, CMP #### [place] [phone] Protein mass conc 6.3 g/dL Normal 6.0-8.4 [facility] Comment on above: Performed By: #### P TT, NTBNP, HSTNT, CBCDIF, PT, CKCKMB, CMP #### [place] [phone] Sodium molar conc 137 mmol/L Normal 132-148 [facility] Comment on above: Performed By: #### P TT, NTBNP, HSTNT, CBCDIF, PT, CKCKMB, CMP #### [place] [id number] Urea nitrogen mass conc 42 mg/dL High 8-25 [facility] Comment on above: Performed By: #### P TT, NTBNP, HSTNT, CBCDIF, PT, CKCKMB, CMP #### [place] [phone] NT Pro BNPon 07-02-2018 Protein mass conc 01379 pg/mL High <125 [facility] Comment on above: Performed By: #### P TT, NTBNP, HSTNT, CBCDIF, PT, CKCKMB, CMP #### [place] [phone] NURSING PROGon 07-02-2018 Protein mass conc HNO ID: [id number] Author: Xiomy (Rn) DEBBIE Christine Service: ? Author Type: Registered Nurse Type: Nursing Progress Note Filed: 07/02/2018 10:55 AM Note Text: Nursing Progress Note Patient Name: Sarina Lovett Patient Location: [id number] Daily Note:Pt states breathing is improving. VSS on RA. SB on tele. BP 180s/50s and HTN noted consistantly overnight. Discussed with Dr. Mchugh and additional dose vasotec given now. Daily vasotec dose to increase starting tomorrow. Hydralazine added PRN for SBP>170. ProBNP trending down. BUN/Cr 42/1.47 and physicians aware. Assessment ongoing. This note was completed by: Xiomy Christine RN [facility] PROGRESSon 07-02-2018 Protein mass conc HNO ID: [id number] Author: Jefe Hernandez Service: General Internal Medicine Author Type: Physician Type: Progress Notes Filed: 07/02/2018 11:51 AM Note Text: PROGRESS NOTE - INTERNAL MEDICINE PATIENT NAME: Sarina Lovett SERVICE DATE: July 02, 2018 SERVICE TIME: 11:50 AM PCP: Sadia Diaz MD ADMITTING PHYSICIAN: Uzma Graff MD INTERVAL HISTORY OF PRESENT ILLNESS: Pt seen improved . Sob batter . No cp/ coughing REVIEW OF SYSTEMS: GENERAL: No weight loss, malaise or fevers RESPIRATORY: Shortness of breath CARDIOVASCULAR: Negative for chest pain, leg swelling, hypertension, CHF or palpitations GI: No nausea, vomiting, or diarrhea : No history of dysuria, frequency or incontinence PSYCH: Negative for sleep disturbance, mood disorder and recent psychosocial stressors. ENDOCRINE: Negative for cold or heat intolerance, polyuria, polydipsia and goiter All other reviewed and negative other than HPI. PRIOR TO ADMISSION MEDICATIONS: Medications Prior to Admission: clopidogrel (PLAVIX) 75 mg tablet Take 1 tablet by mouth once daily. Disp: 90 tablet Rfl: 3 aspirin 81 mg chewable tablet Take 1 tablet by mouth once daily. Disp: 90 tablet Rfl: 3 carvedilol (COREG) 12.5 mg tablet Take 1 tablet by mouth twice daily with meals. Disp: 180 tablet Rfl: 3 furosemide (LASIX) 40 mg tablet Take 1 tablet by mouth once daily. Disp: 30 tablet Rfl: 0 ALBUTEROL INHALATION Inhale 2 Puffs as instructed four times daily as needed (wheezing/shortness of breath). Disp: Rfl: buPROPion XL (WELLBUTRIN XL) 150 mg 24 hr tablet Take 150 mg by mouth once daily. Disp: Rfl: 03/24/2018 at Unknown time VITAMIN D 50,000 unit capsule Take 50,000 Units by mouth once each week. Patient unsure of dose Disp: Rfl: 03/24/2018 sertraline (ZOLOFT) 100 mg tablet Take 150 mg by mouth once daily. Disp: Rfl: 03/24/2018 omeprazole (PRILOSEC) 20 mg capsule Take 20 mg by mouth once daily. Disp: Rfl: 03/24/2018 INs AND OUT SUMMARY: Intake/Output Summary (Last 24 hours) at 07/02/2018 1150 Last data filed at 07/01/2018 1700 Gross per 24 hour Intake 450 ml Output 450 ml Net 0 ml PHYSICAL EXAM: Patient Vitals for the past 24 hrs: BP Temp Temp src Pulse Resp SpO2 Weight 07/02/18 0800 ? 95 % ? 07/02/18 0737 183/55 36.2 ?C (97.2 ?F) Temporal (!) 57 18 92 % ? 07/02/18 0630 ? 76.5 kg (168 lb 11.2 oz) 07/02/18 0456 182/58 ? 07/02/18 0454 191/55 36.1 ?C (97 ?F) Temporal (!) 54 18 92 % ? 07/02/18 0100 162/52 ? ? (!) 54 ? ? ? 07/01/18 2323 (!) 203/64 36 ?C (96.8 ?F) Temporal (!) 58 18 93 % ? 07/01/18 2000 162/67 36.1 ?C (97 ?F) Temporal (!) 52 16 92 % ? 07/01/18 1848 177/60 ? 07/01/18 1729 174/59 ? 07/01/18 1725 185/64 36.5 ?C (97.7 ?F) Temporal (!) 52 16 95 % ? 07/01/18 1202 164/58 36.7 ?C (98.1 ?F) Temporal (!) 52 16 94 % ? GENERAL: Alert, no distress, cooperative SKIN: Skin color, texture, turgor normal. No rashes or lesions. NECK: No jugulovenous distention, No carotid bruits, Carotid pulse normal contour, Supple LUNGS: Lungs clear to auscultation. Good diaphragmatic excursion. CARDIAC: Normal S1 and S2; no rubs, murmurs, or gallops ABDOMEN: Abdomen soft, non-tender. BS normal. No masses or organomegaly. EXTREMETIES: Extremities normal. No deformities, edema, clubbing or skin discoloration. NEURO: Alert, oriented X 3, Cranial nerves II-XII intact, Gait normal. Reflexes normal and symmetric. Sensation grossly intact. PULSES: 2+ radial, 2+ carotid DATA: CBC, Coags, BMP, Mg, Phos Recent Labs 07/02/1843407/01/18 0440 06/30/18 0532 06/29/18 1735 WBC 5.92 9.43 5.42 -- HB 9.4* 9.3* 10.0* -- HCT 31.0* 30.7* 33.2* -- PLT 194 218 214 -- NA 137 139 144 -- K 4.2 4.1 5.8* -- CHLOR 98 100 105 -- CO2 26 25 26 -- BUN 42* 37* 22 -- CREAT 1.47* 1.59* 1.27 -- GLUC 214* 193* 232* -- CA 8.3* 8.5 9.0 -- MG -- -- 2.2 1.6* CSF AND Dilantin Liver Function, Amylase, AND Lipase Recent Labs 07/02/1843407/01/18 0440 06/30/18 0532 TPROT 6.3 6.1 7.0 ALB 3.3* 3.3* 3.6 ALT 12 12 14 AST 8 8 11 ALKPHOS 87 85 93 TBILI 0.2 0.2 0.3 IMAGING Reviewed and discussed with the patient. IN-PATIENT MEDICATIONS: Current Facility-Administered Medications Medication Dose Route Frequency - buPROPion XL 150 mg tab(s) (WELLBUTRIN XL) 150 mg ORAL DAILY - aspirin 81 mg chewable tab(s) 81 mg ORAL DAILY - clopidogrel 75 mg tab(s) (PLAVIX) 75 mg ORAL DAILY - pantoprazole DR 20 mg tab(s) (PROTONIX) 20 mg ORAL DAILY - sertraline (ZOLOFT) tab(s) 150 mg 150 mg ORAL DAILY - atropine 0.5 mg injection 0.5 mg INTRAVENOUS PRN - aluminum-magnesium hydroxide-simethicone 200-200-20 mg/5 mL 30 mL (MAALOX,MYLANTA,MAG-A L PLUS) 30 mL ORAL DAILY PRN - acetaminophen 650 mg tab(s) (TYLENOL) 650 mg ORAL q 6 H PRN - nitroglycerin sublingual 0.4 mg tab(s) (NITROQUICK) 0.4 mg SUBLINGUAL q 5 MIN PRN - ipratropium-albuterol 3 mL nebulizer solution (DUONEB) 3 mL INHALATION q 4 H PRN - furosemide 20 mg injection (LASIX) 20 mg INTRAVENOUS q 12 H 6a/6p - polyethylene glycol 3350 17 g packet (MIRALAX, GLYCOLAX) 17 g ORAL DAILY PRN - predniSONE 20 mg tab(s) (DELTASONE) 20 mg ORAL BID - perflutren lipid microspheres 1.1 mg/mL 1.3 mL injection (DEFINITY) 1.3 mL INTRAVENOUS DIRECTED PRN - carvedilol 25 mg tab(s) (COREG) 25 mg ORAL BID w MEALS - [START ON 07/03/2018] enalapril 10 mg tab(s) (VASOTEC) 10 mg ORAL DAILY - hydrALAZINE 10 mg injection (APRESOLINE) 10 mg INTRAVENOUS q 6 H PRN PROBLEM LIST: ACTIVE PROBLEM LIST Other and Unspecified Hyperlipidemia Essential hypertension, benign Chest Pain Coronary Atherosclerosis Aortic Valve Disorders Tobacco Abuse Hypertensive Emergency Psychiatric Disorder Nicotine use disorder, F17.2 Contrast Dye Induced Nephropathy Acute Renal Failure Superimposed On Stage 3 Chronic Kidney Disease (Hcc) Congestive Heart Failure (Chf) (Hcc) ASSESSMENT AND PLAN: 1 acute systolic chf improved 2 ckd3 3 hti lisinopril increased 4 cad Will monito input / bp SIGNATURE: Jefe Hernandez MD DATE: July 02, 2018 TIME: 11:50 AM Normal [facility] CBC and Differentialon 07-01 Abs Baso <0.03 Normal <0.11 [facility] Comment on above: Performed By: #### P TT, NTBNP, HSTNT, CBCDIF, PT, CKCKMB, CMP #### [place] [address] Abs [place] 0.69 k/uL Normal <0.87 [facility] Comment on above: Performed By: #### P TT, NTBNP, HSTNT, CBCDIF, PT, CKCKMB, CMP #### [place] [address] Abs Neut 7.98 k/uL High 1.45-7.50 [facility] Comment on above: Performed By: #### P TT, NTBNP, HSTNT, CBCDIF, PT, CKCKMB, CMP #### [place] [address] Basophils/100 WBC (Bld) 0.0 % Normal [facility] Comment on above: Performed By: #### P TT, NTBNP, HSTNT, CBCDIF, PT, CKCKMB, CMP #### [place] [address] DTYPE Auto Diff Normal [facility] Comment on above: Performed By: #### P TT, NTBNP, HSTNT, CBCDIF, PT, CKCKMB, CMP #### [place] [address] Eosinophils #/vol (Bld) 10*3/uL Normal <0.46 [facility] Comment on above: Performed By: #### P TT, NTBNP, HSTNT, CBCDIF, PT, CKCKMB, CMP #### [place] [id number] Eosinophils/100 WBC (Bld) 0.0 % Normal [facility] Comment on above: Performed By: #### P TT, NTBNP, HSTNT, CBCDIF, PT, CKCKMB, CMP #### [place] [address] Erythrocyte distribution width Ratio (RBC) 14.4 % Normal 11.5-15.0 [facility] Comment on above: Performed By: #### P TT, NTBNP, HSTNT, CBCDIF, PT, CKCKMB, CMP #### [place] [address] Hematocrit Volume Fraction (Bld) 30.7 % Low 36.0-46.0 [facility] Comment on above: Performed By: #### P TT, NTBNP, HSTNT, CBCDIF, PT, CKCKMB, CMP #### [place] [address] Hemoglobin mass conc (Bld) 9.3 g/dL Low 11.5-15.5 [facility] Comment on above: Performed By: #### P TT, NTBNP, HSTNT, CBCDIF, PT, CKCKMB, CMP #### [place] [id number] Lymphocytes #/vol (Bld) 0.76 10*3/uL Low 1.00-4.00 [facility] Comment on above: Performed By: #### P TT, NTBNP, HSTNT, CBCDIF, PT, CKCKMB, CMP #### [address] Lymphocytes/100 WBC (Bld) 8.1 % Normal [facility] Comment on above: Performed By: #### P TT, NTBNP, HSTNT, CBCDIF, PT, CKCKMB, CMP #### [place] [id number] MCH Entitic mass (RBC) 27.0 pG Normal 26.0-34.0 [facility] Comment on above: Performed By: #### P TT, NTBNP, HSTNT, CBCDIF, PT, CKCKMB, CMP #### [address] MCHC mass conc (RBC) 30.3 g/dL Low 30.5-36.0 [facility] Comment on above: Performed By: #### P TT, NTBNP, HSTNT, CBCDIF, PT, CKCKMB, CMP #### [place] [id number] MCV Entitic volume (RBC) 89.2 fL Normal 80.0-100.0 [facility] Comment on above: Performed By: #### P TT, NTBNP, HSTNT, CBCDIF, PT, CKCKMB, CMP #### [place] [id number] Monocytes/100 WBC (Bld) 7.3 % Normal [facility] Comment on above: Performed By: #### P TT, NTBNP, HSTNT, CBCDIF, PT, CKCKMB, CMP #### [place] [phone] Neutrophils/100 WBC (Bld) 84.6 % Normal [facility] Comment on above: Performed By: #### P TT, NTBNP, HSTNT, CBCDIF, PT, CKCKMB, CMP #### [place] [phone] Platelet mean volume Entitic volume (Bld) 10.5 fL Normal 9.0-12.7 [facility] Comment on above: Performed By: #### P TT, NTBNP, HSTNT, CBCDIF, PT, CKCKMB, CMP #### [place] [phone] Platelets #/vol (Bld) 218 10*3/uL Normal 150-400 [facility] Comment on above: Performed By: #### P TT, NTBNP, HSTNT, CBCDIF, PT, CKCKMB, CMP #### [place] [phone] RBC #/vol (Bld) 3.44 10*6/uL Low 3.90-5.20 [facility] Comment on above: Performed By: #### P TT, NTBNP, HSTNT, CBCDIF, PT, CKCKMB, CMP #### [place] [phone] WBC #/vol (Bld) 9.43 10*3/uL Normal 3.70-11.00 [facility] Comment on above: Performed By: #### P TT, NTBNP, HSTNT, CBCDIF, PT, CKCKMB, CMP #### [place] [phone] Comp Metabolic Panelon 07-01 Albumin mass conc 3.3 g/dL Low 3.5-5.0 [facility] Comment on above: Performed By: #### P TT, NTBNP, HSTNT, CBCDIF, PT, CKCKMB, CMP #### [place] [phone] ALP enzyme act/vol 85 U/L Normal 34-123 [facility] Comment on above: Performed By: #### P TT, NTBNP, HSTNT, CBCDIF, PT, CKCKMB, CMP #### [place] [id number] ALT enzyme act/vol 12 U/L Normal 0-45 [facility] Comment on above: Performed By: #### P TT, NTBNP, HSTNT, CBCDIF, PT, CKCKMB, CMP #### [place] [id number] Anion gap molar conc 14 mmol/L Normal 9-18 [facility] Comment on above: Performed By: #### P TT, NTBNP, HSTNT, CBCDIF, PT, CKCKMB, CMP #### [id number] AST enzyme act/vol 8 U/L Normal 7-40 [facility] Comment on above: Performed By: #### P TT, NTBNP, HSTNT, CBCDIF, PT, CKCKMB, CMP #### [place] [phone] Bilirubin mass conc 0.2 mg/dL Normal 0.2-1.3 [facility] Comment on above: Performed By: #### P TT, NTBNP, HSTNT, CBCDIF, PT, CKCKMB, CMP #### [place] [phone] Calcium mass conc 8.5 mg/dL Normal 8.5-10.5 [facility] Comment on above: Performed By: #### P TT, NTBNP, HSTNT, CBCDIF, PT, CKCKMB, CMP #### [place] [phone] Chloride molar conc 100 mmol/L Normal 98-110 [facility] Comment on above: Performed By: #### P TT, NTBNP, HSTNT, CBCDIF, PT, CKCKMB, CMP #### [place] [id number] CO2 molar conc 25 mmol/L Normal 23-32 [facility] Comment on above: Performed By: #### P TT, NTBNP, HSTNT, CBCDIF, PT, CKCKMB, CMP #### [place] [phone] Creatinine mass conc 1.59 mg/dL High 0.70-1.40 [facility] Comment on above: Performed By: #### P TT, NTBNP, HSTNT, CBCDIF, PT, CKCKMB, CMP #### [place] [id number] eGFR- Amer. 39 Low >60 [facility] Comment on above: Performed By: #### P TT, NTBNP, HSTNT, CBCDIF, PT, CKCKMB, CMP #### [place] [id number] GFR/1.73 sq M predicted among non-blacks MDRD vol rate/area (S/P/Bld) 32 . Low >60 [facility] Comment on above: Performed By: #### P TT, NTBNP, HSTNT, CBCDIF, PT, CKCKMB, CMP #### [place] [phone] Glucose mass conc 193 mg/dL High 65-100 [facility] Comment on above: Performed By: #### P TT, NTBNP, HSTNT, CBCDIF, PT, CKCKMB, CMP #### [place] [phone] Potassium molar conc 4.1 mmol/L Normal 3.5-5.0 [facility] Comment on above: Performed By: #### P TT, NTBNP, HSTNT, CBCDIF, PT, CKCKMB, CMP #### [place] [phone] Protein mass conc 6.1 g/dL Normal 6.0-8.4 [facility] Comment on above: Performed By: #### P TT, NTBNP, HSTNT, CBCDIF, PT, CKCKMB, CMP #### [place] [phone] Sodium molar conc 139 mmol/L Normal 132-148 [facility] Comment on above: Performed By: #### P TT, NTBNP, HSTNT, CBCDIF, PT, CKCKMB, CMP #### [place] [phone] Urea nitrogen mass conc 37 mg/dL High 8-25 [facility] Comment on above: Performed By: #### P TT, NTBNP, HSTNT, CBCDIF, PT, CKCKMB, CMP #### [place] [phone] NURSING PROGon 07-01-2018 Protein mass conc HNO ID: [id number] Author: Charlotte (Rn) DEBBIE Fox Service: ? Author Type: Registered Nurse Type: Nursing Progress Note Filed: 07/01/2018 6:46 AM Note Text: Nursing Progress Note Patient Name: Sarina Lovett Patient Location: -[id number]/FV-PM2L-18 Daily Note: 0510: Pts BP 182/57. Paged house. Orders in system for 10mg Hydralazine IV push. 0538: Hydralazine given at this time. 0644: Recheck of BP 156/59 This note was completed by: Charlotte Fox RN [facility] PROGRESSon 07-01-2018 Protein mass conc HNO ID: [id number] Author: Uzma Graff Service: General Internal Medicine Author Type: Physician Type: Progress Notes Filed: 07/01/2018 3:40 PM Note Text: PROGRESS NOTE - INTERNAL MEDICINE PATIENT NAME: Sarina Lovett SERVICE DATE: 07/01/2018 ADMITTING PHYSICIAN: Uzma Graff Interval HPI: Reports improvement today ASSESSMENT AND PLAN: - CHF : Still has few rales in bases BUN And Creat. Increased with the diuresis Will need PO diuretics on discharge Awaiting Echo to be done HTN : Improving slowly ACTIVE PROBLEM LIST Other and Unspecified Hyperlipidemia Essential hypertension, benign Chest Pain Coronary Atherosclerosis Aortic Valve Disorders Tobacco Abuse Hypertensive Emergency Psychiatric Disorder Nicotine use disorder, F17.2 Contrast Dye Induced Nephropathy Acute Renal Failure Superimposed On Stage 3 Chronic Kidney Disease (Hcc) Congestive Heart Failure (Chf) (Hcc) COMPLETE REVIEW OF SYSTEMS:RESPIRATORY: Negative for cough, wheezing or shortness of breath. CARDIOVASCULAR: Negative for chest pain, leg swelling or palpitations. GI: Negative for abdominal discomfort, blood in stools or black stools or change in bowel habits : No history of dysuria, frequency or incontinence MUSCULOSKELETAL: Negative for joint pain or swelling, back pain or muscle pain. SKIN: Negative for lesions, rash, and itching. NEURO: No history of headaches, syncope, paralysis, seizures or tremors All other reviewed and negative other than HPI. OBJECTIVE PHYSICAL EXAM GENERAL: No changes/ alert SKIN: Skin color, WNL. NECK: Unchanged LUNGS: rales in bases CARDIAC: Normal S1 and S2; no rubs, murmurs, or gallops ABDOMEN: EXTREMITIES: No EDEMA Neuro exam: WNL Current Facility-Administered Medications Medication Dose Route Frequency - buPROPion XL 150 mg tab(s) (WELLBUTRIN XL) 150 mg ORAL DAILY - aspirin 81 mg chewable tab(s) 81 mg ORAL DAILY - clopidogrel 75 mg tab(s) (PLAVIX) 75 mg ORAL DAILY - pantoprazole DR 20 mg tab(s) (PROTONIX) 20 mg ORAL DAILY - sertraline (ZOLOFT) tab(s) 150 mg 150 mg ORAL DAILY - atropine 0.5 mg injection 0.5 mg INTRAVENOUS PRN - aluminum-magnesium hydroxide-simethicone 200-200-20 mg/5 mL 30 mL (MAALOX,MYLANTA,MAG-A L PLUS) 30 mL ORAL DAILY PRN - acetaminophen 650 mg tab(s) (TYLENOL) 650 mg ORAL q 6 H PRN - nitroglycerin sublingual 0.4 mg tab(s) (NITROQUICK) 0.4 mg SUBLINGUAL q 5 MIN PRN - ipratropium-albuterol 3 mL nebulizer solution (DUONEB) 3 mL INHALATION q 4 H PRN - furosemide 20 mg injection (LASIX) 20 mg INTRAVENOUS q 12 H 6a/6p - polyethylene glycol 3350 17 g packet (MIRALAX, GLYCOLAX) 17 g ORAL DAILY PRN - predniSONE 20 mg tab(s) (DELTASONE) 20 mg ORAL BID - perflutren lipid microspheres 1.1 mg/mL 1.3 mL injection (DEFINITY) 1.3 mL INTRAVENOUS DIRECTED PRN - enalapril 5 mg tab(s) (VASOTEC) 5 mg ORAL DAILY - carvedilol 25 mg tab(s) (COREG) 25 mg ORAL BID w MEALS DATA: Diagnostic tests reviewed for today's visit: @IMAGES@ CBC: Recent Labs 07/01/18 0440 WBC 9.43 RBC 3.44* HB 9.3* HCT 30.7* PLT 218 MCV 89.2 MCH 27.0 MPV 10.5 Coags: No results for input(s): INR, APTT in the last 24 hours. Invalid input(s): PT BMP: Recent Labs 07/01/18 0440 NA 139 K 4.1 CHLOR 100 CO2 25 BUN 37* CREAT 1.59* GLUC 193* CMP: Recent Labs 07/01/18 0440 NA 139 K 4.1 CHLOR 100 CO2 25 BUN 37* CREAT 1.59* GLUC 193* TPROT 6.1 CA 8.5 TBILI 0.2 ALKPHOS 85 ALT 12 AST 8 ANION 14 Cardiac Enzymes: No results for input(s): CK, MB, CKMB, TROPT in the last 24 hours. Liver Function, Amylase, Lipase: Recent Labs 07/01/18 0440 TPROT 6.1 ALB 3.3* ALT 12 AST 8 ALKPHOS 85 TBILI 0.2 SIGNATURE: Uzma Graff MD [phone] Pager: [facility] CASE MGT INIT Alfredo 2018 CASE MGT INIT [place] HNO ID: [id number] Author: Bro Wood (Sw) Service: Care Management Author Type: Plastic Surgery Nurse Type: Care Mgt Initial Assessment Filed: 06/30/2018 11:47 AM Note Text: CARE MANAGEMENT: ASSESSMENT AND DISCHARGE PLAN SERVICE DATE: 06/30/2018 SERVICE TIME: 11:43 AM PRIMARY CARE PHYSICIAN: Sadia Diaz MD ADMISSION STATUS: Inpatient Needs Prior to Discharge: To Be Determined MEDICAL: Patient/Representativ e Stated Goals: To have reduction in symptoms To return home to life as it was Health Insurance: [employer] Health Issues Impacting Discharge Plan: CHF Last Admission Date: Previous admit date: 03/24/2018 Is this Within the Past 30 days? No Advance Directive: Current Advance Directive: None Ticker Wirer Attempted to Assist with AD Completion: Yes Action: Education Provided Health Literacy: 1. How often do you need to have someone help you when you read instructions, pamphlets, or other written material from your doctor or pharmacy? Never - 1 2. How confident are you filling out medical forms by yourself? Extremely - 1 If Patient scores > 3 on either question, the following interventions were put into place: Patient did not score > 3 FUNCTIONAL AND COGNITIVE/BEHAVIORAL PRIOR TO ADMISSION: Baseline Mental Status: Alert AND Oriented, Person, Place , Time and Situation Functional Status: Independent Does Patient Currently Receive Any Community Services or Home Care? None Equipment Prior to Admission: None Has the Patient Been in a [facility] Facility in the Past 30 days? No SOCIAL: Living Arrangement: Home Lives With: Spouse Financial Resources: Retired Primary Contact: Extended Emergency Contact Information Primary Emergency Contact: EsauPaul Mobile Relation: Relative Secondary Emergency Contact: Daniel Lovett Address: [facility] [facility] Mobile Relation: Spouse Supportive: Yes Other Important Patient Contacts: None Caregiver Assessment: Caregiver is ready, willing and able to meet the patient's needs as recommended by the inter-professional team? No Caregiver Needed Patient's transition needs and plan for meeting these needs: TBD Does the patient have an acute stroke diagnosis, or has the patient had a stroke during this admission? No Medication Adherence: I am convinced of the importance of my prescription medication: Agree completely - 0 I worry that my prescription medication will do more harm than good to me Disagree completely - 0 I feel financially burdened by my [id number] expenses for my prescription medication: Disagree completely - 0 Patient is categorized as low risk < 2 Are you interested in bedside delivery of your medications? No Food Concerns: In the Last Month, Have You had Trouble Getting Food? No trouble getting food During the Last Month, Have You Worried Whether Your Food Would Run Out Before You Had Enough Money to Buy More? No Is the Patient Psychosocially Complex? No ASSESSMENT AND PLAN: Medical Needs: 2 or more chronic diseases Psychosocial Needs: None FREEDOM OF CHOICE EXPLAINED: N/A POTENTIAL TRANSITION PLANS Home 73 year old female present for CHF. From home with spouse. Reports being independent prior to admission. Denies any use of DME, has been active with [facility] before. No anticipated skilled needs at discharge. Sw will follow for any discharge needs. SIGNATURE: KARRIE FORTE PATIENT NAME: Sarina Lovett DATE: June 30, 2018 TIME: 11:42 AM PAGER/CONTACT #: [phone] Normal [facility] CBCon 06-30-2018 Erythrocyte distribution width Ratio (RBC) 14.4 % Normal 11.5-15.0 [facility] Comment on above: Performed By: #### P TT, NTBNP, HSTNT, CBCDIF, PT, CKCKMB, CMP #### [phone] Hematocrit Volume Fraction (Bld) 33.2 % Low 36.0-46.0 [facility] Comment on above: Performed By: #### P TT, NTBNP, HSTNT, CBCDIF, PT, CKCKMB, CMP #### [place] [phone] Hemoglobin mass conc (Bld) 10.0 g/dL Low 11.5-15.5 [facility] Comment on above: Performed By: #### P TT, NTBNP, HSTNT, CBCDIF, PT, CKCKMB, CMP #### [place] [phone] MCH Entitic mass (RBC) 26.9 pG Normal 26.0-34.0 [facility] Comment on above: Performed By: #### P TT, NTBNP, HSTNT, CBCDIF, PT, CKCKMB, CMP #### [place] [address] MCHC mass conc (RBC) 30.1 g/dL Low 30.5-36.0 [facility] Comment on above: Performed By: #### P TT, NTBNP, HSTNT, CBCDIF, PT, CKCKMB, CMP #### [place] [address] MCV Entitic volume (RBC) 89.2 fL Normal 80.0-100.0 [facility] Comment on above: Performed By: #### P TT, NTBNP, HSTNT, CBCDIF, PT, CKCKMB, CMP #### [place] [phone] Platelet mean volume Entitic volume (Bld) 10.0 fL Normal 9.0-12.7 [facility] Comment on above: Performed By: #### P TT, NTBNP, HSTNT, CBCDIF, PT, CKCKMB, CMP #### [place] [phone] Platelets #/vol (Bld) 214 10*3/uL Normal 150-400 [facility] Comment on above: Performed By: #### P TT, NTBNP, HSTNT, CBCDIF, PT, CKCKMB, CMP #### [place] [phone] RBC #/vol (Bld) 3.72 10*6/uL Low 3.90-5.20 [facility] Comment on above: Performed By: #### P TT, NTBNP, HSTNT, CBCDIF, PT, CKCKMB, CMP #### [facility] [address] [place] [address] WBC #/vol (Bld) 5.42 10*3/uL Normal 3.70-11.00 [facility] Comment on above: Performed By: #### P TT, NTBNP, HSTNT, CBCDIF, PT, CKCKMB, CMP #### [facility] [address] [place] [address] CONSULTon 06-30-2018 CONSULT HNO ID: [id number] Author: Deanna Yoo Service: Cardiovascular Medicine Author Type: Nurse Practitioner Type: Consults Filed: 06/30/2018 5:10 PM Note Text: Attestation signed by Joy Browne at 06/30/2018 5:36 PM Will continue with iv lasix I have reviewed the documentation obtained and documented by the Nurse Practitioner and have reviewed and updated the problem list as appropriate. I have personally performed a face to face assessment of the patient and have personally participated in the olivera components. I have discussed the case and management of the patient's care. Man Browne MD PATIENT NAME: Sarina Lovett DATE of SERVICE: June 30, 2018 Primary Care Physician: Sadia Diaz MD Reason for consult: CHF, Vtach HPI: This is a 73 year old female with pMH of CAD/CABG 2005 and recent NSTEMI 02/2018 CAD/DAVID mid and distal SVG-RCA, aortic stenosis s/p AVR, DM2, HLD, HTN, smoker states she quit 1 weeks ago, who presents with progressive shortness of breath, leg edema, and intermittent chest pressure. [place] better in the ED following breathing treatments States the swelling started and got up to her thighs. + PND/orthopnea; improved today Discussed dietary issues, chips, diaz, salted cottage cheese. How to avoid salt and eat better. Significant HTN on admission, had not taken medications. Hypokalemia 3.2 on admission, HS troponin 42>42 Cardiac History: Limited echo 04/02/2018: CONCLUSIONS: - Technically difficult exam due to suboptimal positioning and body habitus. - Exam indication: LVF - The left ventricle is mildly dilated. There is concentric left ventricular hypertrophy. Left ventricular systolic function is normal. EF = 56 ? 5% (2D biplane) - The right ventricle is normal in size. Right ventricular systolic function is normal. - The left atrial cavity is mildly dilated. - Biocor prosthetic aortic valve (size #21). There is trace aortic valve regurgitation. There is mild aortic valve stenosis caused by prosthetic thickening/calcificat ion. The peak gradient is 44 mmHg, the mean gradient is 24 mmHg and the dimensionless valve index is 0.26. - Exam was compared with the prior echocardiographic exam performed on 03-25-2018 with no significant change Heart cath intervention Dr. Browne 03/24/2018: CORONARY ANGIOGRAPHY: LEFT MAIN TRUNK: No Stenosis ? LEFT ANTERIOR DESCENDING: Chronic Total Occlusion Location: Distal , al to lad is atrophic LEFT CIRCUMFLEX: Chronic Total Occlusion Location: Distal ? RIGHT CORONARY: Chronic Total Occlusion Location: Proximal ? ? SVG #1 to the RCA: 99% Stenosis Location: Mid 99% Stenosis Location: Distal , the stent to pl is patent. Vessel distal is occluded SVG #2 to the LCX: Chronic Total Occlusion Location: Proximal ? ? SVG to the RCA Lesion Type: Class C Guiding Catheter(s): Amplatz Right 2 Pre Dilatation Balloon Size: None Pre TRAVIS Blood Flow: 3 Mid Stent Placed: Type: Resolute (Drug Eluting Stent) Size: 4.5 mm Length: 16 mm Post Dilatation Balloon Size: 4.0 mm X 15 mm Distal Stent Placed: Type: Resolute (Drug Eluting Stent) Size: 4.5 mm Length: 28 mm Post Dilatation Balloon Size: 4.0 mm X 12 mm Post TRAVIS Blood Flow: 3 Result: Successful. Stenosis reduced to normal lumen. Past Medical History: PAST MEDICAL 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 - Aortic valve disorders - Cancer (HCC) - Coronary atherosclerosis of unspecified type of vessel, nez perce or graft Coronary Atherosclerosis - Diabetes (HCC) - Mixed hyperlipidemia Hyperlipidemia - Psychiatric disorder - Unspecified essential hypertension Essential hypertension Past Surgical History: PAST SURGICAL HISTORY Procedure Laterality Date - CARDIAC CATHETERIZATION HX - CORONARY STENT EA VESSEL david 02/2015 - HEART SURGERY HX aortic valve replacement, CABGx3 - LIGATE FALLOPIAN TUBE Family History: FAMILY HISTORY Problem Relation Age of Onset - Ischemic Heart Disease Maternal Grandmother - Ischemic Heart Disease Paternal Grandfather - Diabetes Mother - Diabetes Maternal Grandmother - Diabetes Maternal Aunt - other (chf) Mother - Hypertension Father - Lipids Father Social History: Social History Tobacco Use - Smoking status: Former Smoker Packs/day: 1.00 Years: 50.00 Pack years: 50.00 Last attempt to quit: 02/28/2013 Years since quittin.3 - Smokeless tobacco: Never Used - Tobacco comment: started in her teenage years Substance Use Topics - Alcohol use: Yes Comment: rarely - Drug use: No Allergies: ALLERGIES Allergen Reactions - Statins [Other] Caused severe muscular weakness. - Sulfa (Sulfonamide * Caused severe generalized swelling. - Tape [Other] Severe skin reaction; needs to use paper tape Medications: Prior to Admission Medications Prescriptions Last Dose Informant Patient Reported? Taking? ALBUTEROL INHALATION Yes Yes Sig: Inhale 2 Puffs as instructed four times daily as needed (wheezing/shortness of breath). VITAMIN D 50,000 unit capsule Yes Yes Sig: Take 50,000 Units by mouth once each week. Patient unsure of dose aspirin 81 mg chewable tablet No Yes Sig: Take 1 tablet by mouth once daily. buPROPion XL (WELLBUTRIN XL) 150 mg 24 hr tablet Yes Yes Sig: Take 150 mg by mouth once daily. carvedilol (COREG) 12.5 mg tablet No Yes Sig: Take 1 tablet by mouth twice daily with meals. clopidogrel (PLAVIX) 75 mg tablet No Yes Sig: Take 1 tablet by mouth once daily. furosemide (LASIX) 40 mg tablet No Yes Sig: Take 1 tablet by mouth once daily. omeprazole (PRILOSEC) 20 mg capsule Yes Yes Sig: Take 20 mg by mouth once daily. sertraline (ZOLOFT) 100 mg tablet Yes Yes Sig: Take 150 mg by mouth once daily. Facility-Administered Medications: None Current Facility-Administered Medications Medication Dose Route Frequency - carvedilol 12.5 mg tab(s) (COREG) 12.5 mg ORAL BID w MEALS - buPROPion XL 150 mg tab(s) (WELLBUTRIN XL) 150 mg ORAL DAILY - aspirin 81 mg chewable tab(s) 81 mg ORAL DAILY - clopidogrel 75 mg tab(s) (PLAVIX) 75 mg ORAL DAILY - pantoprazole DR 20 mg tab(s) (PROTONIX) 20 mg ORAL DAILY - sertraline (ZOLOFT) tab(s) 150 mg 150 mg ORAL DAILY - atropine 0.5 mg injection 0.5 mg INTRAVENOUS PRN - aluminum-magnesium hydroxide-simethicone 200-200-20 mg/5 mL 30 mL (MAALOX,MYLANTA,MAG-A L PLUS) 30 mL ORAL DAILY PRN - acetaminophen 650 mg tab(s) (TYLENOL) 650 mg ORAL q 6 H PRN - nitroglycerin sublingual 0.4 mg tab(s) (NITROQUICK) 0.4 mg SUBLINGUAL q 5 MIN PRN - ipratropium-albuterol 3 mL nebulizer solution (DUONEB) 3 mL INHALATION q 4 H PRN - furosemide 20 mg injection (LASIX) 20 mg INTRAVENOUS q 12 H 6a/6p - polyethylene glycol 3350 17 g packet (MIRALAX, GLYCOLAX) 17 g ORAL DAILY PRN - [START ON 07/01/2018] predniSONE 20 mg tab(s) (DELTASONE) 20 mg ORAL BID - perflutren lipid microspheres 1.1 mg/mL 1.3 mL injection (DEFINITY) 1.3 mL INTRAVENOUS DIRECTED PRN - enalapril 5 mg tab(s) (VASOTEC) 5 mg ORAL DAILY Review of Systems: GENERAL: see HPI RESPIRATORY: see HPI CARDIOVASCULAR: See HPI GI: No nausea, vomiting, or diarrhea : No history of dysuria, frequency or incontinence MUSCULOSKELETAL: Negative for joint pain or swelling, back pain or muscle pain HEMATOLOGY/LYMPHOLOGY : Negative for prolonged bleeding, bruising easily or swollen nodes All other reviewed and negative other than HPI. Vitals: Patient Vitals for the past 24 hrs: BP Temp Temp src Pulse Resp SpO2 Height Weight 06/30/18 1233 182/71 36.3 ?C (97.3 ?F) Temporal (!) 55 19 94 % ? ? 06/30/18 1127 191/94 ? ? 72 20 96 % ? ? 06/30/18 0902 ? ? ? 77 20 99 % ? ? 06/30/18 0851 ? ? ? 76 20 95 % ? ? 06/30/18 0840 187/64 ? ? 70 ? 93 % ? ? 06/30/18 0700 192/97 36.4 ?C (97.6 ?F) Oral 66 16 94 % ? ? 06/30/18 0539 ? 77.5 kg (170 lb 14.4 oz) 06/30/18 0359 163/73 36.4 ?C (97.5 ?F) Oral 62 20 94 % ? ? 06/30/18 0014 173/82 36.4 ?C (97.6 ?F) Oral 62 20 95 % ? ? 06/29/18 2002 193/61 36.9 ?C (98.5 ?F) Oral 67 18 98 % ? ? 06/29/18 1547 153/88 36.4 ?C (97.5 ?F) Temporal 61 20 96 % ? ? 06/29/18 1543 ? 170.2 cm (5' 7 ) 78.1 kg (172 lb 3.2 oz) 06/29/18 1515 188/69 ? ? 66 (!) 25 97 % ? ? 06/29/18 1512 178/73 ? ? 73 (!) 25 97 % ? ? 06/29/18 1445 (!) 218/99 ? ? 81 (!) 28 98 % ? ? 06/29/18 1430 (!) 218/99 ? ? (!) 92 16 95 % ? ? 06/29/18 1415 178/85 ? ? 77 23 96 % ? ? 06/29/18 1400 192/104 ? ? 76 22 97 % ? ? 06/29/18 1345 (!) 208/79 ? ? 76 22 96 % ? ? 06/29/18 1342 (!) 201/87 ? ? 74 22 96 % ? ? Body mass index is 26.77 kg/m?. BP 182/71 Pulse (!) 55 Temp 36.3 ?C (97.3 ?F) (Temporal) Resp 19 Ht 170.2 cm (5' 7 ) Wt 77.5 kg (170 lb 14.4 oz) SpO2 94% BMI 26.77 kg/m? Physical Exam: General appearance: well appearing, alert and in no acute distress Skin: warm and dry Head: normal Eyes: non-icteric sclera. . Extraocular movements are intact. Neck: Supple, no jvd sitting at edge of bed Lungs: rales bilabasilar Heart: RRR 4/6 systolic murmur Abdomen: soft nontender Extremities: 1+ edema LLE, trace RLE Peripheral pulses: 2+ radial Neuro: Oriented X 3 Mood and Affect: appropriate and cooperative Labs: CBC, Coags, BMP, Mg, Phos Recent Labs 06/30/18 0532 06/29/18 1735 06/29/18 1218 WBC 5.42 -- 9.78 HB 10.0* -- 10.5* HCT 33.2* -- 33.8* PLT 214 -- 281 NA 144 -- 140 K 5.8* -- 3.2* CHLOR 105 -- 103 CO2 26 -- 23 BUN 22 -- 16 CREAT 1.27 -- 1.02 GLUC 232* -- 154* CA 9.0 -- 8.7 MG 2.2 1.6* -- Liver Function, Amylase, AND Lipase Recent Labs 06/30/18 0532 06/29/18 1218 TPROT 7.0 7.1 ALB 3.6 3.8 ALT 14 17 AST 11 16 ALKPHOS 93 96 TBILI 0.3 0.5 Cardiac Enzymes ABGs Lab Results Component Value Date PROBNP >70,000 (H) 06/29/2018 Lab Results Component Value Date HSTNT 42 (H) 06/29/2018 HSTNT 42 (H) 06/29/2018 ] ECG: Sinus rhythm, LAD, RBBB, LAFB, LVH, PVC's Telemetry reveals multiple PVC's, ventricular bigeminy at times. Imaging: CXR cardiomegaly and congestions Assessment/Plan: Acute on chronic diastolic dysfunction, NYHA class III -likely mediated by dietary indiscretions. -on lasix, continue another 24-48 hours -echo has been ordered -did not see VTach on telemetry HTN -on vasotec, coreg, will increase her coreg -elevated potassium today, will need to monitor Electrolyte derangement -initially hypokalemic, replaced, now hyperkalemic CAD -elevated ANGE, flat pattern, likely from fluid overload and hypoxia on admission -recent DAVID to SVG-RCA -on plavix, asa, satain COPD exacerbation -on breathing treatments and steroids Will discuss with Dr. Browne Thank you for allowing us to participate in this patient's care. SIGNATURE: Deanna Yoo APRN.[facility] cardiology DATE: June 30, 2018 TIME: 12:48 PM Normal [facility] Comp Metabolic Panelon 06-30 Albumin mass conc 3.6 g/dL Normal 3.5-5.0 [facility] Comment on above: Performed By: #### P TT, NTBNP, HSTNT, CBCDIF, PT, CKCKMB, CMP #### [place] [address] ALP enzyme act/vol 93 U/L Normal 34-123 [facility] Comment on above: Performed By: #### P TT, NTBNP, HSTNT, CBCDIF, PT, CKCKMB, CMP #### [place] [address] ALT enzyme act/vol 14 U/L Normal 0-45 [facility] Comment on above: Performed By: #### P TT, NTBNP, HSTNT, CBCDIF, PT, CKCKMB, CMP #### [place] [address] Anion gap molar conc 13 mmol/L Normal 9-18 [facility] Comment on above: Performed By: #### P TT, NTBNP, HSTNT, CBCDIF, PT, CKCKMB, CMP #### [place] [id number] AST enzyme act/vol 11 U/L Normal 7-40 [facility] Comment on above: Performed By: #### P TT, NTBNP, HSTNT, CBCDIF, PT, CKCKMB, CMP #### [place] [address] Bilirubin mass conc 0.3 mg/dL Normal 0.2-1.3 [facility] Comment on above: Performed By: #### P TT, NTBNP, HSTNT, CBCDIF, PT, CKCKMB, CMP #### [place] [address] Calcium mass conc 9.0 mg/dL Normal 8.5-10.5 [facility] Comment on above: Performed By: #### P TT, NTBNP, HSTNT, CBCDIF, PT, CKCKMB, CMP #### [place] [address] Chloride molar conc 105 mmol/L Normal 98-110 [facility] Comment on above: Performed By: #### P TT, NTBNP, HSTNT, CBCDIF, PT, CKCKMB, CMP #### [place] [address] CO2 molar conc 26 mmol/L Normal 23-32 [facility] Comment on above: Performed By: #### P TT, NTBNP, HSTNT, CBCDIF, PT, CKCKMB, CMP #### [place] [address] Creatinine mass conc 1.27 mg/dL Normal 0.70-1.40 [facility] Comment on above: Result Comment: Revi ewed Performed By: #### P TT, NTBNP, HSTNT, CBCDIF, PT, CKCKMB, CMP #### [place] [address] eGFR- Amer. 50 Low >60 [facility] Comment on above: Performed By: #### P TT, NTBNP, HSTNT, CBCDIF, PT, CKCKMB, CMP #### [place] [id number] GFR/1.73 sq M predicted among non-blacks MDRD vol rate/area (S/P/Bld) 41 . Low >60 [facility] Comment on above: Performed By: #### P TT, NTBNP, HSTNT, CBCDIF, PT, CKCKMB, CMP #### [place] [phone] Glucose mass conc 232 mg/dL High 65-100 [facility] Comment on above: Performed By: #### P TT, NTBNP, HSTNT, CBCDIF, PT, CKCKMB, CMP #### [place] [id number] Potassium molar conc 5.8 mmol/L High 3.5-5.0 [facility] Comment on above: Result Comment: Revi ewed Performed By: #### P TT, NTBNP, HSTNT, CBCDIF, PT, CKCKMB, CMP #### [place] [phone] Protein mass conc 7.0 g/dL Normal 6.0-8.4 [facility] Comment on above: Performed By: #### P TT, NTBNP, HSTNT, CBCDIF, PT, CKCKMB, CMP #### [place] [phone] Sodium molar conc 144 mmol/L Normal 132-148 [facility] Comment on above: Performed By: #### P TT, NTBNP, HSTNT, CBCDIF, PT, CKCKMB, CMP #### [place] [phone] Urea nitrogen mass conc 22 mg/dL Normal 8-25 [facility] Comment on above: Performed By: #### P TT, NTBNP, HSTNT, CBCDIF, PT, CKCKMB, CMP #### [place] [phone] HISTORY PHYSICALon 05-03-201 9 HISTORY PHYSICAL HNO ID: [id number] Author: Uzma Graff Service: General Internal Medicine Author Type: Physician Type: HANDP Filed: 06/30/2018 11:40 AM Note Text: HISTORY AND PHYSICAL EXAMINATION - INTERNAL MEDICINE PATIENT NAME: Sarina Lovett SERVICE DATE: 06/30/2018 SERVICE TIME: 11:36 AM PRIMARY CARE PHYSICIAN: Sadia Diaz MD Admitting Physician: Uzma Graff SUBJECTIVE CHIEF COMPLAINT: The patient is 73-year-old female past medical history coronary artery disease, aortic stenosis, diabetes, hyperlipidemia presents to the emergency department shortness of breath, chest tightness. Patient reports 4 day history of progressively worsening shortness of breath and midsternal chest tightness. Chest tightness intermittent. She denies chest pain today She is a smoker and says she quit one week ago HISTORY OF PRESENT ILLNESS: Ms. Lovett is a 73 year old female who presents with SOB And chest pressure PAST MEDICAL HISTORY: PAST MEDICAL 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 - Aortic valve disorders - Cancer (HCC) - Coronary atherosclerosis of unspecified type of vessel, nez perce or graft Coronary Atherosclerosis - Diabetes (HCC) - Mixed hyperlipidemia Hyperlipidemia - Psychiatric disorder - Unspecified essential hypertension Essential hypertension PAST SURGICAL HISTORY: PAST SURGICAL HISTORY Procedure Laterality Date - CARDIAC CATHETERIZATION HX - CORONARY STENT EA VESSEL david 02/2015 - HEART SURGERY HX aortic valve replacement, CABGx3 - LIGATE FALLOPIAN TUBE FAMILY HISTORY: FAMILY HISTORY Problem Relation Age of Onset - Ischemic Heart Disease Maternal Grandmother - Ischemic Heart Disease Paternal Grandfather - Diabetes Mother - Diabetes Maternal Grandmother - Diabetes Maternal Aunt - other (chf) Mother - Hypertension Father - Lipids Father SOCIAL HISTORY: Social History Tobacco Use - Smoking status: Former Smoker Packs/day: 1.00 Years: 50.00 Pack years: 50.00 Last attempt to quit: 02/28/2013 Years since quittin.3 - Smokeless tobacco: Never Used - Tobacco comment: started in her teenage years Substance Use Topics - Alcohol use: Yes Comment: rarely - Drug use: No MEDICATIONS: Medications Prior to Admission: clopidogrel (PLAVIX) 75 mg tablet Take 1 tablet by mouth once daily. Disp: 90 tablet Rfl: 3 aspirin 81 mg chewable tablet Take 1 tablet by mouth once daily. Disp: 90 tablet Rfl: 3 carvedilol (COREG) 12.5 mg tablet Take 1 tablet by mouth twice daily with meals. Disp: 180 tablet Rfl: 3 furosemide (LASIX) 40 mg tablet Take 1 tablet by mouth once daily. Disp: 30 tablet Rfl: 0 ALBUTEROL INHALATION Inhale 2 Puffs as instructed four times daily as needed (wheezing/shortness of breath). Disp: Rfl: buPROPion XL (WELLBUTRIN XL) 150 mg 24 hr tablet Take 150 mg by mouth once daily. Disp: Rfl: 03/24/2018 at Unknown time VITAMIN D 50,000 unit capsule Take 50,000 Units by mouth once each week. Patient unsure of dose Disp: Rfl: 03/24/2018 sertraline (ZOLOFT) 100 mg tablet Take 150 mg by mouth once daily. Disp: Rfl: 03/24/2018 omeprazole (PRILOSEC) 20 mg capsule Take 20 mg by mouth once daily. Disp: Rfl: 03/24/2018 ALLERGIES: ALLERGIES Allergen Reactions - Statins [Other] Caused severe muscular weakness. - Sulfa (Sulfonamide * Caused severe generalized swelling. - Tape [Other] Severe skin reaction; needs to use paper tape COMPLETE REVIEW OF SYSTEMS: RESPIRATORY: Negative for cough, wheezing or shortness of breath. CARDIOVASCULAR: Negative for chest pain, leg swelling or palpitations. GI: Negative for abdominal discomfort, blood in stools or black stools or change in bowel habits : No history of dysuria, frequency or incontinence MUSCULOSKELETAL: Negative for joint pain or swelling, back pain or muscle pain. SKIN: Negative for lesions, rash, and itching. NEURO: No history of headaches, syncope, paralysis, seizures or tremors All other reviewed and negative other than HPI. OBJECTIVE PHYSICAL EXAM: Patient Vitals for the past 24 hrs: BP Temp Temp src Pulse Resp SpO2 Height Weight 06/30/18 1127 191/94 ? ? 72 20 96 % ? ? 06/30/18 0902 ? ? ? 77 20 99 % ? ? 06/30/18 0851 ? ? ? 76 20 95 % ? ? 06/30/18 0840 187/64 ? ? 70 ? 93 % ? ? 06/30/18 0700 192/97 36.4 ?C (97.6 ?F) Oral 66 16 94 % ? ? 06/30/18 0539 ? 77.5 kg (170 lb 14.4 oz) 06/30/18 0359 163/73 36.4 ?C (97.5 ?F) Oral 62 20 94 % ? ? 06/30/18 0014 173/82 36.4 ?C (97.6 ?F) Oral 62 20 95 % ? ? 06/29/18 2002 193/61 36.9 ?C (98.5 ?F) Oral 67 18 98 % ? ? 06/29/18 1547 153/88 36.4 ?C (97.5 ?F) Temporal 61 20 96 % ? ? 06/29/18 1543 ? 170.2 cm (5' 7 ) 78.1 kg (172 lb 3.2 oz) 06/29/18 1515 188/69 ? ? 66 (!) 25 97 % ? ? 06/29/18 1512 178/73 ? ? 73 (!) 25 97 % ? ? 06/29/18 1445 (!) 218/99 ? ? 81 (!) 28 98 % ? ? 06/29/18 1430 (!) 218/99 ? ? (!) 92 16 95 % ? ? 06/29/18 1415 178/85 ? ? 77 23 96 % ? ? 06/29/18 1400 192/104 ? ? 76 22 97 % ? ? 06/29/18 1345 (!) 208/79 ? ? 76 22 96 % ? ? 06/29/18 1342 (!) 201/87 ? ? 74 22 96 % ? ? 06/29/18 1236 ? ? ? 83 21 100 % ? ? 06/29/18 1223 ? ? ? 77 21 99 % ? ? 06/29/18 1219 ? ? ? 81 (!) 25 100 % ? ? 06/29/18 1214 ? ? ? 84 (!) 28 97 % ? ? 06/29/18 1145 (!) 229/94 ? ? 78 (!) 37 (!) 92 % ? ? Body mass index is 26.77 kg/m?. Oropharynx normal. NECK: no jugulovenous distention, no carotid bruits, carotid pulse normal contour, supple LUNGS: scattered ronchi and rales in the bases, no active wheezing. CARDIAC: normal S1 and S2; no rubs, murmurs, or gallops ABDOMEN: Abdomen soft, non-tender. BS normal. No masses or organomegaly. EXTREMETIES: 1+ edema in the lower extremities DATA: Diagnostic tests reviewed for today's visit: ASSESSMENT AND PLAN: Present on Admission: - Congestive heart failure (CHF) (HCC) -CHF : Severe acute on Chronic/ will continue IV Lasix and Echo -COPD Exacerbation Improved on IV steroids will switch to PO -HTN : Add Vasotec, for CHF and HTN ACTIVE PROBLEM LIST Other and Unspecified Hyperlipidemia Essential hypertension, benign Chest Pain Coronary Atherosclerosis Aortic Valve Disorders Tobacco Abuse Hypertensive Emergency Psychiatric Disorder Nicotine use disorder, F17.2 Contrast Dye Induced Nephropathy Acute Renal Failure Superimposed On Stage 3 Chronic Kidney Disease (Hcc) Congestive Heart Failure (Chf) (Hcc) - SIGNATURE: Uzma Graff MD DATE: June 30, 2018 TIME: 11:36 AM Normal [facility] Magnesiumon 06-30-2018 Magnesium mass conc 2.2 mg/dL Normal 1.7-2.6 [facility] Comment on above: Result Comment: Revi ewed Performed By: #### P TT, NTBNP, HSTNT, CBCDIF, PT, CKCKMB, CMP #### [place] [address] NURSING PROGon 06-30-2018 Protein mass conc HNO ID: [id number] Author: Kiko (Rn) DEBBIE Gillespie Service: ? Author Type: Registered Nurse Type: Nursing Progress Note Filed: 06/30/2018 6:39 PM Note Text: Nursing Progress Note Patient Name: Sarina Lovett Patient Location: [id number] Daily Note: 0900 monitor SR B3. denies cp, dizziness, or palpitations. am labs completed. wt 77.5 kg. sob with exertion. occasional wheezes throughout. crackles in bases. 94% on RA. resp treatments given this am and as ordered. IV lasix and IV solumedrol continues as ordered. abdomen soft active non-tender with + BS. tolerate diet. denies n/v. I/O maintained. +1 edema BLE. elevated up while in chair. c/o headache this am. Tylenol given per pt request. pt up with assist X1 and walker for safety. fall precautions maintained. call mcdaniels in reach. continue assess. 1200 BP 182/71. other VSS. asymptomatic. denies cp, dizziness, or palpitations. states headache from this am as improved. DR. Peoples in to see pt's with orders received. Vasotec started for increased BP. call mcdaniels in reach. continue assess. 1300 Dr. Graff into see pt and aware of increased BP's. vasotec ordered/started. ECHO ordered. continue assess. 1400 Cardiovascular INFORMATION DEVELOPER in to see pt. orders received. Coreg increased for dinnertime and given. ECHO to be completed. Dr. Browne in to see pt with orders. call mcdaniels in reach. continue assess. 1800 BP 151/60. hr 62. denies cp, dizziness, or palpitations. call mcdaniels in reach. continue assess. This note was completed by: Kiko Gillespie RN [facility] HNO ID: [id number] Author: Amanda Retana (Rt) Service: Radiology Author Type: Commercial Management Accountant Type: Allied Health Filed: 06/29/2018 1:04 PM Note Text: Radiology Service Progress Note PATIENT NAME: Sarina Lovett DATE OF SERVICE: June 29, 2018 TIME: 1:03 PM PATIENT IDENTITY VERIFICATION COMPLETED USING TWO (2) METHODS: Patient confirmed name verbally and ID band matches.. PATIENT GENDER DATA: Female. status: : No status: NO. PATIENT RELEVANT IMPLANT DATA REVIEWED: Not Applicable RADIOLOGY DEPARTMENT: General X-ray: Exam(s) Completed: Chest X-Ray PERIPHERAL IV DATA: Not applicable SIGNED BY: RT Lainey June 29, 2018 1:03 PM [facility] HNO ID: [id number] Author: Amanda Retana (Rt) Service: Radiology Author Type: Commercial Management Accountant Type: Allied Health Filed: 06/29/2018 1:02 PM Note Text: Radiology Service Progress Note PATIENT NAME: Sarina Lovett DATE OF SERVICE: June 29, 2018 TIME: 1:02 PM PATIENT IDENTITY VERIFICATION COMPLETED USING TWO (2) METHODS: Patient confirmed name verbally and ID band matches.. PATIENT GENDER DATA: Female. status: : No status: NO. PATIENT RELEVANT IMPLANT DATA REVIEWED: Not Applicable RADIOLOGY DEPARTMENT: General X-ray: Exam(s) Completed: Chest X-Ray PERIPHERAL IV DATA: Not applicable SIGNED BY: Radha Smith RT June 29, 2018 1:02 PM Normal [facility] CBC and Differentialon 06-29 Abs Baso 0.03 k/uL Normal <0.11 [facility] Comment on above: Performed By: #### P TT, NTBNP, HSTNT, CBCDIF, PT, CKCKMB, CMP #### [place] [address] Abs [place] 0.67 k/uL Normal <0.87 [facility] Comment on above: Performed By: #### P TT, NTBNP, HSTNT, CBCDIF, PT, CKCKMB, CMP #### [place] [address] Abs Neut 8.15 k/uL High 1.45-7.50 [facility] Comment on above: Performed By: #### P TT, NTBNP, HSTNT, CBCDIF, PT, CKCKMB, CMP #### [place] [address] Absolute nRBC <0.01 Normal <0.01 [facility] Comment on above: Performed By: #### P TT, NTBNP, HSTNT, CBCDIF, PT, CKCKMB, CMP #### [place] [address] Basophils/100 WBC (Bld) 0.3 % Normal [facility] Comment on above: Performed By: #### P TT, NTBNP, HSTNT, CBCDIF, PT, CKCKMB, CMP #### [place] [address] DTYPE Auto Diff Normal [facility] Comment on above: Performed By: #### P TT, NTBNP, HSTNT, CBCDIF, PT, CKCKMB, CMP #### [place] [address] Eosinophils #/vol (Bld) 0.03 10*3/uL Normal <0.46 [facility] Comment on above: Performed By: #### P TT, NTBNP, HSTNT, CBCDIF, PT, CKCKMB, CMP #### [place] [address] Eosinophils/100 WBC (Bld) 0.3 % Normal [facility] Comment on above: Performed By: #### P TT, NTBNP, HSTNT, CBCDIF, PT, CKCKMB, CMP #### [place] [address] Erythrocyte distribution width Ratio (RBC) 14.5 % Normal 11.5-15.0 [facility] Comment on above: Performed By: #### P TT, NTBNP, HSTNT, CBCDIF, PT, CKCKMB, CMP #### [place] [address] Hematocrit Volume Fraction (Bld) 33.8 % Low 36.0-46.0 [facility] Comment on above: Performed By: #### P TT, NTBNP, HSTNT, CBCDIF, PT, CKCKMB, CMP #### [place] [address] Hemoglobin mass conc (Bld) 10.5 g/dL Low 11.5-15.5 [facility] Comment on above: Performed By: #### P TT, NTBNP, HSTNT, CBCDIF, PT, CKCKMB, CMP #### [place] [address] Lymphocytes #/vol (Bld) 0.90 10*3/uL Low 1.00-4.00 [facility] Comment on above: Performed By: #### P TT, NTBNP, HSTNT, CBCDIF, PT, CKCKMB, CMP #### [address] Lymphocytes/100 WBC (Bld) 9.2 % Normal [facility] Comment on above: Performed By: #### P TT, NTBNP, HSTNT, CBCDIF, PT, CKCKMB, CMP #### [place] [phone] MCH Entitic mass (RBC) 27.3 pG Normal 26.0-34.0 [facility] Comment on above: Performed By: #### P TT, NTBNP, HSTNT, CBCDIF, PT, CKCKMB, CMP #### [place] [address] MCHC mass conc (RBC) 31.1 g/dL Normal 30.5-36.0 [facility] Comment on above: Performed By: #### P TT, NTBNP, HSTNT, CBCDIF, PT, CKCKMB, CMP #### [place] [phone] MCV Entitic volume (RBC) 88.0 fL Normal 80.0-100.0 [facility] Comment on above: Performed By: #### P TT, NTBNP, HSTNT, CBCDIF, PT, CKCKMB, CMP #### [place] [phone] Monocytes/100 WBC (Bld) 6.9 % Normal [facility] Comment on above: Performed By: #### P TT, NTBNP, HSTNT, CBCDIF, PT, CKCKMB, CMP #### [place] [phone] Neutrophils/100 WBC (Bld) 83.3 % Normal [facility] Comment on above: Performed By: #### P TT, NTBNP, HSTNT, CBCDIF, PT, CKCKMB, CMP #### [phone] NRBCs 0.0 /100 WBC Normal 0 [facility] Comment on above: Performed By: #### P TT, NTBNP, HSTNT, CBCDIF, PT, CKCKMB, CMP #### [place] [phone] Platelet mean volume Entitic volume (Bld) 10.3 fL Normal 9.0-12.7 [facility] Comment on above: Performed By: #### P TT, NTBNP, HSTNT, CBCDIF, PT, CKCKMB, CMP #### [phone] Platelets #/vol (Bld) 281 10*3/uL Normal 150-400 [facility] Comment on above: Performed By: #### P TT, NTBNP, HSTNT, CBCDIF, PT, CKCKMB, CMP #### [place] [phone] RBC #/vol (Bld) 3.84 10*6/uL Low 3.90-5.20 [facility] Comment on above: Performed By: #### P TT, NTBNP, HSTNT, CBCDIF, PT, CKCKMB, CMP #### [place] [phone] WBC #/vol (Bld) 9.78 10*3/uL Normal 3.70-11.00 [facility] Comment on above: Performed By: #### P TT, NTBNP, HSTNT, CBCDIF, PT, CKCKMB, CMP #### [place] [phone] Comp Metabolic Panelon 06-29 Albumin mass conc 3.8 g/dL Normal 3.5-5.0 [facility] Comment on above: Performed By: #### P TT, NTBNP, HSTNT, CBCDIF, PT, CKCKMB, CMP #### [place] [phone] ALP enzyme act/vol 96 U/L Normal 34-123 [facility] Comment on above: Performed By: #### P TT, NTBNP, HSTNT, CBCDIF, PT, CKCKMB, CMP #### [place] [phone] ALT enzyme act/vol 17 U/L Normal 0-45 [facility] Comment on above: Performed By: #### P TT, NTBNP, HSTNT, CBCDIF, PT, CKCKMB, CMP #### [address] Anion gap molar conc 14 mmol/L Normal 9-18 [facility] Comment on above: Performed By: #### P TT, NTBNP, HSTNT, CBCDIF, PT, CKCKMB, CMP #### [place] [address] AST enzyme act/vol 16 U/L Normal 7-40 [facility] Comment on above: Performed By: #### P TT, NTBNP, HSTNT, CBCDIF, PT, CKCKMB, CMP #### [place] [id number] Bilirubin mass conc 0.5 mg/dL Normal 0.2-1.3 [facility] Comment on above: Performed By: #### P TT, NTBNP, HSTNT, CBCDIF, PT, CKCKMB, CMP #### [address] Calcium mass conc 8.7 mg/dL Normal 8.5-10.5 [facility] Comment on above: Performed By: #### P TT, NTBNP, HSTNT, CBCDIF, PT, CKCKMB, CMP #### [place] [phone] Chloride molar conc 103 mmol/L Normal 98-110 [facility] Comment on above: Performed By: #### P TT, NTBNP, HSTNT, CBCDIF, PT, CKCKMB, CMP #### [place] [phone] CO2 molar conc 23 mmol/L Normal 23-32 [facility] Comment on above: Performed By: #### P TT, NTBNP, HSTNT, CBCDIF, PT, CKCKMB, CMP #### [place] [phone] Creatinine mass conc 1.02 mg/dL Normal 0.70-1.40 [facility] Comment on above: Performed By: #### P TT, NTBNP, HSTNT, CBCDIF, PT, CKCKMB, CMP #### [place] [phone] eGFR- Amer. >60 Normal >60 [facility] Comment on above: Performed By: #### P TT, NTBNP, HSTNT, CBCDIF, PT, CKCKMB, CMP #### [place] [phone] GFR/1.73 sq M predicted among non-blacks MDRD vol rate/area (S/P/Bld) 53 . Low >60 [facility] Comment on above: Performed By: #### P TT, NTBNP, HSTNT, CBCDIF, PT, CKCKMB, CMP #### [place] [phone] Glucose mass conc 154 mg/dL High 65-100 [facility] Comment on above: Performed By: #### P TT, NTBNP, HSTNT, CBCDIF, PT, CKCKMB, CMP #### [place] [phone] Potassium molar conc 3.2 mmol/L Low 3.5-5.0 [facility] Comment on above: Performed By: #### P TT, NTBNP, HSTNT, CBCDIF, PT, CKCKMB, CMP #### [place] [phone] Protein mass conc 7.1 g/dL Normal 6.0-8.4 [facility] Comment on above: Performed By: #### P TT, NTBNP, HSTNT, CBCDIF, PT, CKCKMB, CMP #### [place] [phone] Sodium molar conc 140 mmol/L Normal 132-148 [facility] Comment on above: Performed By: #### P TT, NTBNP, HSTNT, CBCDIF, PT, CKCKMB, CMP #### [place] [phone] Urea nitrogen mass conc 16 mg/dL Normal 8-25 [facility] Comment on above: Performed By: #### P TT, NTBNP, HSTNT, CBCDIF, PT, CKCKMB, CMP #### [place] [phone] ECG COMPLETEon 06-29-2018 ECG COMPLETE NAME : SARINA LOVETT PID : [id number] : 1945 Gender : Female Race : ORD : [id number] Procedure Date : Jun 29 2018 11:05:45 Edit Date : Jun 29 2018 18:18:45 Diagnosis:SINUS RHYTHM 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 HYPERTROPHY Abnormal ECG 1109 Confirmed by MD ÁLVAREZ ANDREW ([id number]), fan mail editor RUBI WARNER ([id number]) on 06/29/2018 6:18:39 PM Ventricular Rate : 75 BPM Atrial Rate : 76 BPM P-R Interval : 216 ms QRS Duration : 170 ms Q-T Interval : 476 ms QTC Calculation(Bezet) : 532 ms P [place] : 5 degrees R [place] : -64 degrees T [place] : 65 degrees Test Reason : Chest Pain Location : 402 : FVED RW Overread By : MD ÁLVAREZ ANDREW Edited By : RUBI WARNER Referred By : , Acquired by : Michelle DELEON [facility] ED PROV NOTEon 06-29-2018 Protein mass conc HNO ID: [id number] Author: Juanito Álvarez MD Service: Emergency Medicine Author Type: Physician Type: ED Provider Notes Filed: 06/29/2018 6:17 PM Note Text: ED Provider Note Patient Name: Sarina Lovett SERVICE DATE: 06/29/18 History Patient presents with: Shortness of Breath: states x 4 days Chest Pain Edema: states swelling both legs,left worse x 4 days. this am swellinhg above knees 73-year-old female past medical history coronary artery disease, aortic stenosis, diabetes, hyperlipidemia presents to the emergency department shortness of breath, chest tightness. Patient reports 4 day history of progressively worsening shortness of breath and midsternal chest tightness. Chest tightness intermittent. No active chest discomfort on arrival. States her symptoms are worse when walking long distances. She has also noted bilateral lower extremity swelling and abdominal swelling. Denies history of liver disease. She denies any abdominal pain, nausea vomiting or diarrhea. Denies fevers or chills. She does have a history of tobacco abuse. Has not had breathing treatments at home. 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 - Aortic valve disorders - Cancer (HCC) - Coronary atherosclerosis of unspecified type of vessel, nez perce or graft Coronary Atherosclerosis - Diabetes (HCC) - Mixed hyperlipidemia Hyperlipidemia - Psychiatric disorder - Unspecified essential hypertension Essential hypertension PAST SURGICAL HISTORY Procedure Laterality Date - CARDIAC CATHETERIZATION HX - CORONARY STENT EA VESSEL david 02/2015 - HEART SURGERY HX aortic valve replacement, CABGx3 - LIGATE FALLOPIAN TUBE FAMILY HISTORY Problem Relation Age of Onset - Ischemic Heart Disease Maternal Grandmother - Ischemic Heart Disease Paternal Grandfather - Diabetes Mother - Diabetes Maternal Grandmother - Diabetes Maternal Aunt - other (chf) Mother - Hypertension Father - Lipids Father Social History Tobacco Use - Smoking status: Former Smoker Packs/day: 1.00 Years: 50.00 Pack years: 50.00 Last attempt to quit: 02/28/2013 Years since quittin.3 - Smokeless tobacco: Never Used - Tobacco comment: started in her teenage years Substance and Sexual Activity - Alcohol use: Yes Comment: rarely - Drug use: No - Sexual activity: Yes Partners: Male Comment: all previous pap normal ALLERGIES Allergen Reactions - Statins [Other] Caused severe muscular weakness. - Sulfa (Sulfonamide * Caused severe generalized swelling. - Tape [Other] Severe skin reaction; needs to use paper tape Review of Systems Constitutional: Negative for chills, fatigue and fever. HENT: Negative for ear pain and sore throat. Eyes: Negative for pain. Respiratory: Positive for chest tightness, shortness of breath and wheezing. Negative for choking. Cardiovascular: Negative for chest pain, palpitations and leg swelling. Gastrointestinal: Negative for abdominal pain, constipation, diarrhea, nausea and vomiting. Genitourinary: Negative for decreased urine volume, dyspareunia, flank pain, hematuria, menstrual problem, pelvic pain, urgency, vaginal bleeding, vaginal discharge and vaginal pain. Musculoskeletal: Negative for back pain. Skin: Negative for color change, pallor and rash. Neurological: Negative for dizziness, tremors, syncope, weakness, light-headedness, numbness and headaches. Hematological: Negative for adenopathy. Psychiatric/Behaviora l: Negative for agitation, behavioral problems and confusion. Physical Exam BP 209/87 Pulse 74 Temp (Src) 97.9 (Oral) Resp 22 Ht 5' 7 (1.70m) Wt 162 lb (73.5kg) SpO2 96% BMI 25.37 kg/(m2). O2 Therapy: Nasal Cannula, Liters: 2 Physical Exam Constitutional: She is oriented to person, place, and time. She appears well-developed and well-nourished. HENT: Head: Normocephalic and atraumatic. Mouth/Throat: Oropharynx is clear and moist. Moist mucosa, pink conjunctiva Eyes: Pupils are equal, round, and reactive to light. EOM are normal. Neck: Normal range of motion. No JVD present. Cardiovascular: Normal rate and regular rhythm. Pulmonary/Chest: Tachypnea noted decreased air movement with faint expiratory wheeze Able to speak in full sentences No accessory muscle use No chest wall tenderness Abdominal: Soft. Bowel sounds are normal. There is no tenderness. Musculoskeletal: Right lower leg: She exhibits edema. She exhibits no tenderness. Left lower leg: She exhibits edema. She exhibits no tenderness. 1-2+ pitting edema b/l LE No tenderness No erythema Moves all extremities equally Neurological: She is alert and oriented to person, place, and time. Skin: Skin is warm and dry. Capillary refill takes less than 2 seconds. No rash noted. Psychiatric: She has a normal mood and affect. Her behavior is normal. Nursing note and vitals reviewed. Diagnostic Testing ED Labs Ordered and Reviewed CBC + AUTO DIFF (AK,AV,EU,FV,HL,THAI,MM ,SP) - Abnormal; Notable for the following components: Result Value Ref Range RBC 3.84 (*) 3.90 - 5.20 m/uL Hemoglobin 10.5 (*) 11.5 - 15.5 g/dL Hematocrit 33.8 (*) 36.0 - 46.0 % Abs Neut (ANC) 8.15 (*) 1.45 - 7.50 k/uL Abs Lymph 0.90 (*) 1.00 - 4.00 k/uL All other components within normal limits COMPREHENSIVE METABOLIC PANEL (AK,AV,EU,FV,HL,THAI,MM ,SP) - Abnormal; Notable for the following components: Glucose 154 (*) 65 - 100 mg/dL Potassium 3.2 (*) 3.5 - 5.0 mmol/L eGFR-All Other Races 53 (*) >60 . All other components within normal limits HIGH SENSITIVITY TROPONIN T (AV,EU,FV,HL,THAI,MM,SP ) - Abnormal; Notable for the following components: ANGE High Sensitivity 42 (*) <12 ng/L All other components within normal limits PROBNP N-TERMINAL (AK,AV,EU,FV,HL,THAI,MM ,SP) - Abnormal; Notable for the following components: ProBNP >70,000 (*) <125 pg/mL All other components within normal limits HIGH SENSITIVITY TROPONIN T (AV,EU,FV,HL,THAI,MM,SP ) Procedures ED Course / Clinical Impression ED Course as of Jun 29 1402 Others' Documentation Joanne June 29, 2018 1154 sinus rhythm, rate 75, left axis deviation, PVC is noted, LVH is noted, right bundle branch block 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 No STEMI. When compared to previous EKG from 04/02/18, deep T-wave inversion with ST depression in the anterior precordial leads is improving on today's EKG, previously seen T-wave inversion in the lateral leads has resolved on today's EKG. ECG COMPLETE [AW] ED Course User Index [AW] Juanito Álvarez MD Clinical Impressions as of Jun 29 1402 COPD exacerbation (HCC) Congestive heart failure, unspecified HF chronicity, unspecified heart failure type (HCC) Hypokalemia History of hypertension MDM / Disposition / Plan Vital signs reviewed: Triage records were reviewed. Medical records were reviewed. Nursing notes were reviewed and incorporated The attending who evaluated and managed this patient was Juanito Álvarez MD DDX: Physical exam and hx above cause concern for COPD, pneumonia, bronchitis, CHF, infection, metabolic disturbance, electrolytes disturbance. Labs/Imaging: No leukocytosis, no acute anemia. Mild hypokalemia at 3.2. No metabolic dysfunction. ProBNP >80634, trop mildly elevated above baseline 42 CXR - Cardiomegaly and congestion. Meds given in ED: - DuoNeb - Albuterol - Solu-Medrol - lasix - home BP meds - coreg - nitropaste Presentation and work-up consistent with COPD exacerbation, CHF exacerbation, peripheral edema, hypokalemiam hypertension Noted to be mildly hypoxic at 92%, 2. Placed on 2 L nasal cannula with improvement. She had diminished air movement with faint expiratory wheeze. No accessory muscle use. She was given DuoNeb, albuterol, Solu-Medrol. Lung sounds significantly improved after breathing treatments. Patient with increased air movement. Reported she felt significantly improved. Hypokalemia with oral replacement Additionally, chest x-ray with evidence of mild congestion, proBNP >01574, patient with peripheral edema and dyspnea on exertion. This is consistent with acute CHF exacerbation. She was noted to be hypertensive. She did not take her home blood pressure medications prior to arrival. Denies headache, dizziness, lightheadedness. She was given home dose coreg in ED. In setting of hypertension and chf, pt was aslo given nitropaste, Lasix. Pt significantly improved in the emergency department. No complaints. Shortness of breath resolved. No active chest pain. In no acute distress OB admitted for COPD exacerbation, CHF exacerbation repeat breathing treatments and diuresis Case dicussed with Dr. Graff Pt demonstrated an understanding and was in agreement with the plan of care The patient was ADMITTED TO: [facility]. Case discussed with admitting physician, Dr. Graff. Condition at time of disposition: stable SIGNATURE: DENISHA Kimbrough) DENISHA Ortiz 06/29/18 1402 DENISHA Kimbrough (Pa) 06/29/18 1403 Attending Note I have personally performed a face to face assessment of the patient and have reviewed the PA/BOX MAKER PAPERBOARD note. My olivera findings include: Patient with a history of COPD and CHF presents for shortness of breath and peripheral edema. On exam, patient has bilateral Rales. Labs demonstrate significantly elevated BNP, chest x-ray is concerning for volume overload. Patient was given breathing treatments, Lasix, nitroglycerin paste with improvement in her symptoms. Clinical picture is consistent with likely CHF exacerbation as well as underlying COPD. Overall she is in no acute distress and stable for admission to a regular nursing floor for continued management. Other additions or changes: None Signature: Juanito Álvarez MD Staff Physician Emergency Medicine Date: 06/29/2018 Time: 6:16 PM Juanito Álvarez MD 06/29/18 1817 Normal [facility] High Sens Troponin Ton 06-29 High Sensitivity ANGE 42 ng/L High <12 [facility] Comment on above: Result Comment: When assessing risk for acute coronary syndromes: In patients undergoing blood draw greater than or equal to 2 hours from symptom onset, with history of very low to moderate risk and non-ischemic ECG, an initial hs-Troponin T less than 12 ng/L AND a 1 hour delta hs-Troponin T less than 3 ng/L should be considered very low risk for 30 day MACE. Performed By: #### P TT, NTBNP, HSTNT, CBCDIF, PT, CKCKMB, CMP #### [place] [address] High Sensitivity ANGE 42 ng/L High <12 [facility] Comment on above: Result Comment: When assessing risk for acute coronary syndromes: In patients undergoing blood draw greater than or equal to 2 hours from symptom onset, with history of very low to moderate risk and non-ischemic ECG, an initial hs-Troponin T less than 12 ng/L AND a 1 hour delta hs-Troponin T less than 3 ng/L should be considered very low risk for 30 day MACE. Performed By: #### P TT, NTBNP, HSTNT, CBCDIF, PT, CKCKMB, CMP #### [place] [phone] Magnesiumon 06-29-2018 Magnesium mass conc 1.6 mg/dL Low 1.7-2.6 [facility] Comment on above: Performed By: #### P TT, NTBNP, HSTNT, CBCDIF, PT, CKCKMB, CMP #### [facility] [address] [place] [address] NT Pro BNPon 06-29-2018 Protein mass conc g/dL High <125 [facility] Comment on above: Result Comment: Resu lt checked and verified Performed By: #### P TT, NTBNP, HSTNT, CBCDIF, PT, CKCKMB, CMP #### [place] [phone] NURSING PROGon 06-29-2018 Protein mass conc HNO ID: [id number] Author: Nicole Ronquillo (Rn) DEBBIE Jacome Service: ? Author Type: Registered Nurse Type: Nursing Progress Note Filed: 06/29/2018 6:28 PM Note Text: Nursing Progress Note Patient Name: Sarina Lovett Patient Location: [place] [address] [address] Daily Note:1612 Pt arrived from ED via wheelchair, pt alert and oriented. Pt is a stand by assist. Slight sob on exertion, pt states, I feel so much better, I couldn't take a deep breath earlier. Lungs are clear, on 2L NC. Pt denies any pain, states, I am starving! 3+ pitting edema noted, PP+. Tele is SR, with PACs. Pt oriented to room, call light within reach, encouraged pt to call before ambulating, pt states verbal understanding. Pt is heplocked, tele and safety maintained, will continue to assess. 1715 Pt had 16 beats of vtach at 1707. Pt not symptomatic. Paged Dr Graff. Will continue to assess. Safety maintained. 1728 Dr Graff called, see new orders. Will continue to assess. 1827 Pagejeannie house doctor, for mag orders, mag level resulted 1.6. Will continue to assess. This note was completed by: Nicole Jacome RN [facility] XR CHEST 1V FRONTAL PORTon 0 06-29-2018 XR CHEST 1V FRONTAL PORT * * *Final Report* * * DATE OF EXAM: Jun 29 2018 12:46PM FVX [id number] - XR CHEST 1V FRONTAL PORT / PROCEDURE REASON: Shortness of breath * * * * Physician Interpretation * * * * EXAMINATION: CHEST RADIOGRAPH (PORTABLE SINGLE VIEW AP) Exam Date/Time: 06/29/2018 12:46 PM CLINICAL HISTORY: Shortness of breath MQ: XCPR_5 Comparison: 04/06/2018 RESULT: Lines, tubes, and devices: None. Lungs and pleura: There is a background of congestion with effusions right greater than left and associated atelectasis. Cardiomediastinal silhouette: Cardiomegaly in this patient status post sternotomy. Other: . IMPRESSION: Cardiomegaly and congestion. Armature Rewinder: PSCB Transcribe Date/Time: Jun 29 2018 12:57P Dictated by : KIRSTIE ANDRADE MD This examination was interpreted and the report reviewed and electronically signed by: KIRSTIE ANDRADE MD on Jun 29 2018 12:57PM EST [id number] N [facility] ALLIED HEALTHon 06-06-2018 ALLIED HEALTH HNO ID: [id number] Author: Amanda Morales (Tech) Service: ? Author Type: Commercial Management Accountant Type: Allied Health Filed: 06/06/2018 3:28 PM Note Text: Radiology Service Progress Note PATIENT NAME: Sarina Lovett DATE OF SERVICE: June 06, 2018 TIME: 3:27 PM PATIENT IDENTITY VERIFICATION COMPLETED USING TWO (2) METHODS: Patient confirmed name verbally and ID band matches.. PATIENT GENDER DATA: Female. status: : No status: NO. PATIENT RELEVANT IMPLANT DATA REVIEWED: Not Applicable RADIOLOGY DEPARTMENT: General X-ray: Exam(s) Completed: Lower Extremity X-Ray(s): Foot, Left: PERIPHERAL IV DATA: Not applicable SIGNED BY: Amanda Morales June 06, 2018 3:27 PM [facility] ED NOTEon 06-06-2018 ED NOTE HNO ID: [id number] Author: Akosua (Rn) DEBBIE Johnston Service: ? Author Type: Registered Nurse Type: ED Notes Filed: 06/06/2018 4:05 PM Note Text: Bed: 67-ED Expected date: Expected time: Means of arrival: Comments: [facility] ED PROV NOTEon 06-06-2018 Protein mass conc HNO ID: [id number] Author: Loretta Duran MD Service: Emergency Medicine Author Type: Physician Type: ED Provider Notes Filed: 06/06/2018 4:25 PM Note Text: ED Provider Note Patient Name: Sarina Lovett SERVICE DATE: 06/06/18 History Patient presents with: Pain (foot): pt reports pain in left foot for 24 hrs. pt denies known injury. pt reports pain on top of foot. pt sts I know it's broken swelling and redness to left foot. HPI 73-year-old female presents for left foot pain. Patient states she felt the pain overnight. She cannot recall any specific straining or traumatic events yesterday to hurt her foot. Today she said an aching moderate severity constant nonradiating pain of her left lateral foot. Worse with walking or bearing weight. No other injuries. Patient does have a history of diabetes who states she has good sensation of her feet bilaterally. PAST MEDICAL 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 - Aortic valve disorders - Cancer (HCC) - Coronary atherosclerosis of unspecified type of vessel, nez perce or graft Coronary Atherosclerosis - Diabetes (HCC) - Mixed hyperlipidemia Hyperlipidemia - Psychiatric disorder - Unspecified essential hypertension Essential hypertension PAST SURGICAL HISTORY Procedure Laterality Date - CARDIAC CATHETERIZATION HX - CORONARY STENT EA VESSEL david 02/2015 - HEART SURGERY HX aortic valve replacement, CABGx3 - LIGATE FALLOPIAN TUBE FAMILY HISTORY Problem Relation Age of Onset - Ischemic Heart Disease Maternal Grandmother - Ischemic Heart Disease Paternal Grandfather - Diabetes Mother - Diabetes Maternal Grandmother - Diabetes Maternal Aunt - other (chf) Mother - Hypertension Father - Lipids Father Social History Tobacco Use - Smoking status: Former Smoker Packs/day: 1.00 Years: 50.00 Pack years: 50.00 Last attempt to quit: 02/28/2013 Years since quittin.2 - Smokeless tobacco: Never Used - Tobacco comment: started in her teenage years Substance and Sexual Activity - Alcohol use: Yes Comment: rarely - Drug use: No - Sexual activity: Yes Partners: Male Comment: all previous pap normal ALLERGIES Allergen Reactions - Statins [Other] Caused severe muscular weakness. - Sulfa (Sulfonamide * Caused severe generalized swelling. - Tape [Other] Severe skin reaction; needs to use paper tape Review of Systems Constitutional: Negative for chills, fatigue and fever. HENT: Negative for congestion and rhinorrhea. Respiratory: Negative for cough and shortness of breath. Cardiovascular: Negative for chest pain and palpitations. Gastrointestinal: Negative for abdominal pain, nausea and vomiting. Musculoskeletal: Left foot pain Neurological: Negative for headaches. Physical Exam BP 200/63 Pulse 76 Temp (Src) 98.1 (Oral) Resp 17 Ht 5' 7 (1.70m) Wt 162 lb (73.5kg) SpO2 95% BMI 25.37 kg/(m2). O2 Therapy: Room Air Physical Exam Constitutional: She is oriented to person, place, and time. She appears well-developed and well-nourished. No distress. HENT: Head: Atraumatic. Mouth/Throat: Oropharynx is clear and moist. Eyes: Conjunctivae are normal. Pulmonary/Chest: Effort normal. Musculoskeletal: Swelling of the left foot, tenderness over the left fifth metatarsal and left forefoot, intact DP and PT pulses, patient reports equal distal sensation of the foot and ankle, there is no ankle swelling, no tenderness to the lateral or medial malleolus Neurological: She is alert and oriented to person, place, and time. Skin: Skin is warm and dry. She is not diaphoretic. Psychiatric: She has a normal mood and affect. Nursing note and vitals reviewed. Diagnostic Testing ED Labs Ordered and Reviewed - No data to display Procedures ED Course / Clinical Impression Clinical Impressions as of Jun 07 1623 Left foot pain MDM / Disposition / Plan MDM Records Reviwed Electronic medical record reviewed and significant for last admission in February for chest pain IMAGING - personally reviewed and preliminary reading interpreted as: Left foot x-ray. Vital signs were reviewed. Triage records were reviewed. Medical records were reviewed. Nursing notes were reviewed and incorporated MEDICATIONS ADMINISTERED ED Medication Administration from 06/06/2018 1456 to 06/06/2018 1624 Date/Time Order Dose Route Action 06/06/2018 1601 acetaminophen 650 mg tab(s) (TYLENOL) 650 mg ORAL Given COURSE/MDM 73 year old presents with Left foot swelling and pain. No specific traumatic event that she could recall that there is swelling to the lateral foot, tenderness over the fifth metatarsal and forefoot. Neurovascularly intact. No erythema or warmth to suggest infection.X-ray came back unremarkable. Exam still most consistent with a musculoskeletal foot strain, there is tenderness palpation and swelling of the lateral foot. Los bandage applied, given crutches to be used as needed and plan to follow-up with her PCP. The patient and/or family had the results of all tests and diagnosis explained to them. They were given both verbal and written discharge instructions and were instructed of the importance of close follow-up. Marin Duran MD The patient was DISCHARGED: Counseled patient regarding radiology results AND suspected diagnosis AND need for follow-up. Discharged home with verbal and written instructions. They were instructed to return as needed for persistent or worsening symptoms or any new concerns. Condition at time of disposition: stable SIGNATURE: MD Loretta Santana MD 06/06/18 1625 [facility] ED Triage Noteon 06-06-2018 ED Triage Note HNO ID: [id number] Author: Lissette Mondragon (Pa) Service: Emergency Medicine Author Type: Physician Lacrosse Coach Type: ED Triage Notes Filed: 06/06/2018 3:02 PM Note Text: Initial Provider Assessment: HPI: 73 year old female with complaint of left foot injury. Exam: Reviewed nursing notes and vitals Heent: PERRLA, Oropharynx normal. Ext: Mild swelling and tenderness to left lateral foot Plan: assess in ER Lissette Mondragon PA-C [facility] XR FOOT 3V AP/LAT/OBL LTon 0 06-06-2018 XR FOOT 3V AP/LAT/OBL LT * * *Final Report* * * DATE OF EXAM: Jun 06 2018 3:26PM FVX [id number] - XR FOOT 3V AP/LAT/OBL LT / PROCEDURE REASON: Bone pain, foot * * * * Physician Interpretation * * * * XR FOOT 3V AP/LAT/OBL LT Indication: Bone pain, foot. Limitations to the exam: None. Results: AP, lateral and oblique views of the left foot show no evidence of acute fracture, malalignment or bone lesion. Bone mineralization appears normal. There is a tiny well-corticated ossicle inferior to the tip of the medial malleolus possibly representing accessory ossification center versus sequela of remote injury. There are mild degenerative changes in scattered interphalangeal joints. There is a small posterior calcaneal spur. The soft tissues are unremarkable. IMPRESSION: NO ACUTE ABNORMALITY IS IDENTIFIED. Armature Rewinder: PSCB Transcribe Date/Time: Jun 06 2018 3:44P Dictated by : RADHA MCNEIL MD This examination was interpreted and the report reviewed and electronically signed by: RADHA MCNEIL MD on Jun 06 2018 3:46PM EST [id number] N [facility] OBSOLETEon 06-02-2018 OBSOLETE Refill (CARDFV) SARINA LOVETT ([id number]) 1945 F Date Time Provider Department 06/02/18 Joy BROWNE During your visit today, we recorded the following information about you: Heidi Montezjoy Media Relations Specialist II 06/02/2018 5:21 PM Signed Patient phones requesting refills as follows: Pending Prescriptions Disp Refills NITROGLYCERIN 0.4 MG SUBLINGUAL TABLET 25 tablet 5 Sig: DISSOLVE 1 TABLET UNDER THE TONGUE NEEDED FOR CHEST PAIN MARIO: Yes Please review and advise. Heidi Montezjoy Media Relations Specialist II Allergies As of Date: 06/02/2018 Noted Allergy Reaction Statins [Other] 03/28/2003 Comments: Caused severe muscular weakness. SULFA (SULFONAMIDE ANTIBIOTICS) 03/28/2003 Comments: Caused severe generalized swelling. tape [Other] 02/02/2006 Comments: Severe skin reaction; needs to use paper tape Date Reviewed: 05/02/2018 Reviewed by: Georgia Mayer Ma - Fully Assessed Reason for Visit: Refill Request [94] Order(s):nitroglyceri n sublingual (NITROQUICK) 0.4 mg SL tabletDISSOLVE 1 TABLET UNDER THE TONGUE NEEDED FOR CHEST PAINDisp: 25 tabletRfl: 5 Prescriptions as of 06/02/2018 Sig: NITROGLYCERIN 0.4 MG SUBLINGU* DISSOLVE 1 TABLET UNDER THE T* ATORVASTATIN 80 MG TABLET Take 1 tablet by mouth daily * CLOPIDOGREL 75 MG TABLET Take 1 tablet by mouth once d* ASPIRIN 81 MG CHEWABLE TABLET Take 1 tablet by mouth once d* CARVEDILOL 12.5 MG TABLET Take 1 tablet by mouth twice * FUROSEMIDE 40 MG TABLET Take 1 tablet by mouth once d* ALBUTEROL INHALATION Inhale 2 Puffs as instructed * BUPROPION XL 150 MG TAB Take 150 mg by mouth once lionel* VITAMIN D2 50,000 UNIT CAPSULE Take 50,000 Units by mouth on* SERTRALINE 100 MG TABLET Take 150 mg by mouth once lionel* OMEPRAZOLE 20 MG CAPSULE,LILLY* Take 20 mg by mouth once delgado* Problem List As Of Date 06/02/2018 Noted Resolved HYPERLIPIDEMIA NEC/NOS [E78.5] INVALID FOR* Essential hypertension, benign [I10] INVALID FOR* More... Chest pain [R07.9] INVALID FOR* More... Coronary atherosclerosis [I25.10] INVALID FOR* More... Aortic valve disorders [I35.9] INVALID FOR* More... NSTEMI (non-ST elevated myocardial infarction) *INVALID FOR*05/02/2018 More... Tobacco abuse [Z72.0] INVALID FOR* More... Hypertensive emergency [I16.1] INVALID FOR* More... Psychiatric disorder [F99] INVALID FOR* More... 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 Disc: Reason for discontinue is not on file. Encounter Status:Closed by Joy BROWNE MD on 06/04/18 [facility] CNOVon 05-02-2018 CNOV Office Visit (CARDFV ) SARINA LOVETT ([id number]) 1945 F Date Time Provider Department 05/02/18 11:30 AM Joy BROWNE During your visit today, we recorded the following information about you: Pulse Blood pressure Weight Height 80/minute 145/90 73.8 kg 1.702 m Joy Browne MD 05/02/2018 11:59 AM Written Joy Browne MD 05/02/2018 12:08 PM Signed [facility] [place] [facility] Department of Cardiovascular Medicine [facility] OUTPATIENT VISIT DATE May 02, 2018 OUTPATIENT VISIT TYPE Established Patient PRIMARY CARE PHYSICIAN: Sadia Diaz MD ([facility]) [address] [place] [address] REFERRING PHYSICIAN: Sacha Ford MD [address] [facility] [phone] CHIEF COMPLAINT: Office Follow-Up Visit HISTORY OF PRESENT ILLNESS: Ms. Lovett is a 73 year old female who presents today doing well. Bp is elevated. She was not taking her bp medications . No further angina after fixing the svr to rca She denies chest pain, shortness of breath, orthopnea, cough, edema, palpitations, PND, lightheadedness or syncope. PAST CARDIAC HISTORY: PROBLEM LIST: Specialty Problems Cardiology Problems Hypertensive emergency Essential hypertension, benign Other and unspecified hyperlipidemia Chest pain Aortic valve disorders Coronary atherosclerosis RISK FACTORS FOR CORONARY ARTERY DISEASE: PAST MEDICAL 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 - Aortic valve disorders - Cancer (HCC) - Coronary atherosclerosis of unspecified type of vessel, nez perce or graft Coronary Atherosclerosis - Diabetes (HCC) - Mixed hyperlipidemia Hyperlipidemia - Psychiatric disorder - Unspecified essential hypertension Essential hypertension PAST SURGICAL HISTORY Procedure Laterality Date - CARDIAC CATHETERIZATION HX - CORONARY STENT EA VESSEL david 02/2015 - HEART SURGERY HX aortic valve replacement, CABGx3 - LIGATE FALLOPIAN TUBE SOCIAL HISTORY Social History Tobacco Use - Smoking status: Former Smoker Packs/day: 1.00 Years: 50.00 Pack years: 50.00 Last attempt to quit: 02/28/2013 Years since quittin.1 - Smokeless tobacco: Never Used - Tobacco comment: started in her teenage years Substance Use Topics - Alcohol use: Yes Comment: rarely - Drug use: No FAMILY HISTORY Problem Relation Age of Onset - Ischemic Heart Disease Maternal Grandmother - Ischemic Heart Disease Paternal Grandfather - Diabetes Mother - Diabetes Maternal Grandmother - Diabetes Maternal Aunt - other (chf) Mother - Hypertension Father - Lipids Father ALLERGIES: ALLERGIES Allergen Reactions - Statins [Other] Caused severe muscular weakness. - Sulfa (Sulfonamide * Caused severe generalized swelling. - Tape [Other] Severe skin reaction; needs to use paper tape MEDICATIONS: clopidogrel (PLAVIX) 75 mg tablet Take 1 tablet by mouth once daily. nitroglycerin sublingual (NITROQUICK) 0.4 mg SL tablet Dissolve 1 tablet under the tongue as needed for Chest Pain. aspirin 81 mg chewable tablet Take 1 tablet by mouth once daily. carvedilol (COREG) 12.5 mg tablet Take 1 tablet by mouth twice daily with meals. furosemide (LASIX) 40 mg tablet Take 1 tablet by mouth once daily. buPROPion XL (WELLBUTRIN XL) 150 mg 24 hr tablet Take 150 mg by mouth once daily. VITAMIN D 50,000 unit capsule Take 50,000 Units by mouth once each week. Patient unsure of dose sertraline (ZOLOFT) 100 mg tablet Take 150 mg by mouth once daily. omeprazole (PRILOSEC) 20 mg capsule Take 20 mg by mouth once daily. atorvastatin (LIPITOR) 80 mg tablet Take 1 tablet by mouth daily at bedtime. hydrALAZINE (APRESOLINE) 25 mg tablet Take 1 tablet by mouth three times daily. ALBUTEROL INHALATION Inhale 2 Puffs as instructed four times daily as needed (wheezing/shortness of breath). REVIEW OF SYSTEMS: GENERAL: Negative for: Weight loss or gain, Fever or Chills, Weakness and Sleep difficulties. HEENT: Negative for: Headache, Impaired Vision, Glasses, Hearing Impairment, Ringing in Ears, Nosebleeds, Poor dental care, Bleeding Gums, Dentures NECK: Negative for: Swelling, Pain, Stiffness GASTROINTESTINAL: Negative for: Trouble swallowing, Heartburn, Change in bowel habits, Blood in stool, Dark black stools MUSCULOSKELETAL: Negative for: Muscle or joint pain, Stiffness , Joint swelling NEUROLOGIC/PSYCHIATRI C: Negative for: Weakness, Paralysis, Numbness, Tingling, Tremor, Nervousness, Depressed mood, Memory loss SKIN: Negative for: Rashes, Itching HEMATOLOGICAL/LYMPHAT IC: Negative for: Easy bruising , Easy bleeding ENDOCRINE: Negative for: Heat or cold intolerance, Excessive sweating, Frequent urination, Frequent thirst I personally interviewed, confirmed and edited the above information if obtained by others. PHYSICAL EXAMINATION: BP 145/90 (BP Site: Right Arm, BP Position: Sitting, BP Cuff Size: Regular Adult) Pulse 80 Ht 170.2 cm (5' 7 ) Wt 73.8 kg (162 lb 9.6 oz) BMI 25.47 kg/m? General: Well appearing, in no acute distress. Skin: No clubbing, no cyanosis. Eyes: Extra ocular movements intact Oropharynx: Teeth in good repair. Neck: No jugular venous distention, no carotid bruits, carotids have a normal upstroke, no palpable thyromegaly. Lungs: Clear to auscultation bilaterally, no wheezing or rhonchi. Heart: Regular rhythm, PMI not displaced, S1, S2 normal, no S3, no S4, no heaves, no rub and no murmur. Abdomen: Soft, nontender, bowel sounds normal, no palpable organomegaly, no bruits. Extremities: No peripheral edema . Grade 2/4 distal pulses bilaterally. Neuro: Oriented to person, place and time, alert. CARDIOVASCULAR MEDICINE TESTING: No Cardiovascular testing perfomed today. I have personally reviewed the . IMPRESSION: Ms. Lovett is a 73 year old female stable . (I25.110) Atherosclerosis of coronary artery of nez perce heart with unstable angina pectoris, unspecified vessel or lesion type (HCC) Will resume coreg PLAN AND RECOMMENDATIONS: Lipid is managed and blood testing is done by pcp CONTACT INFORMATION: MD Akash Robbins and Uyen Coughlin Department of Cardiovascular Medicine Heart and Vascular [place] [facility] Cardiology [address] [place] [address] Referring Provider: SACHA SCHROEDER [[id number]] Allergies As of Date: 05/02/2018 Noted Allergy Reaction Statins [Other] 03/28/2003 Comments: Caused severe muscular weakness. SULFA (SULFONAMIDE ANTIBIOTICS) 03/28/2003 Comments: Caused severe generalized swelling. tape [Other] 02/02/2006 Comments: Severe skin reaction; needs to use paper tape Date Reviewed: 05/02/2018 Reviewed by: Georgia Mayer Ma - Fully Assessed Reason for Visit: Established Patient [175] Cmt: cath follow up Visit Diagnoses:Atheroscler osis of coronary artery of nez perce heart with unstable angina pectoris, unspecified vessel or lesion type (HCC) [I25.110] Essential hypertension [I10] Order(s):atorvastatin (LIPITOR) 80 mg tabletTake 1 tablet by mouth daily at bedtime.Disp: 90 tabletRfl: 3 clopidogrel (PLAVIX) 75 mg tabletTake 1 tablet by mouth once daily.Disp: 90 tabletRfl: 3 nitroglycerin sublingual (NITROQUICK) 0.4 mg SL tabletDissolve 1 tablet under the tongue as needed for Chest Pain.Disp: 1 Bottle of 25Rfl: 0 aspirin 81 mg chewable tabletTake 1 tablet by mouth once daily.Disp: 90 tabletRfl: 3 carvedilol (COREG) 12.5 mg tabletTake 1 tablet by mouth twice daily with meals.Disp: 180 tabletRfl: 3 Prescriptions as of 05/02/2018 Sig: CLOPIDOGREL 75 MG TABLET Take 1 tablet by mouth once d* NITROGLYCERIN 0.4 MG SUBLINGU* Dissolve 1 tablet under the t* ASPIRIN 81 MG CHEWABLE TABLET Take 1 tablet by mouth once d* CARVEDILOL 12.5 MG TABLET Take 1 tablet by mouth twice * FUROSEMIDE 40 MG TABLET Take 1 tablet by mouth once d* BUPROPION XL 150 MG TAB Take 150 mg by mouth once lionel* VITAMIN D2 50,000 UNIT CAPSULE Take 50,000 Units by mouth on* SERTRALINE 100 MG TABLET Take 150 mg by mouth once lionel* OMEPRAZOLE 20 MG CAPSULE,LILLY* Take 20 mg by mouth once delgado* ATORVASTATIN 80 MG TABLET Take 1 tablet by mouth daily * ALBUTEROL INHALATION Inhale 2 Puffs as instructed * Problem List As Of Date 05/02/2018 Noted Resolved HYPERLIPIDEMIA NEC/NOS [E78.5] INVALID FOR* Essential hypertension, benign [I10] INVALID FOR* More... Chest pain [R07.9] INVALID FOR* More... Coronary atherosclerosis [I25.10] INVALID FOR* More... Aortic valve disorders [I35.9] INVALID FOR* More... NSTEMI (non-ST elevated myocardial infarction) *INVALID FOR*05/02/2018 More... Tobacco abuse [Z72.0] INVALID FOR* More... Hypertensive emergency [I16.1] INVALID FOR* More... Psychiatric disorder [F99] INVALID FOR* More... 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 CLOPIDOGREL 75 MG TABLET 90 t* 3 05/02/2018 05/02/2019 Route: ORAL Sig: Take 1 tablet by mouth once daily. NITROGLYCERIN 0.4 MG SUBLINGUAL TABL* 1 Sid* 0 05/02/2018 Route: SUBLINGUAL Sig: Dissolve 1 tablet under the tongue as needed for Chest Pain. ASPIRIN 81 MG CHEWABLE TABLET 90 t* 3 05/02/2018 05/02/2019 Route: ORAL Sig: Take 1 tablet by mouth once daily. CARVEDILOL 12.5 MG TABLET 180 * 3 05/02/2018 05/02/2019 Route: ORAL Sig: Take 1 tablet by mouth twice daily with meals. HYDRALAZINE 25 MG TABLET 270 * 3 05/02/2018 05/02/2018 Route: ORAL Sig: Take 1 tablet by mouth three times daily. Medications Discontinued During This Encounter hydrALAZINE (APRESOLINE) 25 mg tablet 90 t* 0 04/08/2018 05/02/2018 Route: ORAL Sig: Take 1 tablet by mouth three times daily. Disc: Reason for discontinue is not on file. atorvastatin (LIPITOR) 80 mg tablet 30 t* 0 04/08/2018 05/02/2018 Route: ORAL Sig: Take 1 tablet by mouth daily at bedtime. Patient not taking: Reported on 05/02/2018 Disc: Reason for discontinue is not on file. clopidogrel (PLAVIX) 75 mg tablet 30 t* 5 04/09/2018 05/02/2018 Route: ORAL Sig: Take 1 tablet by mouth once daily. Disc: Reason for discontinue is not on file. nitroglycerin sublingual (NITROQUICK* 1 Sid* 0 04/08/2018 05/02/2018 Route: SUBLINGUAL Sig: Dissolve 1 tablet under the tongue as needed for Chest Pain. Disc: Reason for discontinue is not on file. aspirin 81 mg chewable tablet 05/02/2018 Class: Historical Med Route: ORAL Sig: Take 81 mg by mouth once daily. Disc: Reason for discontinue is not on file. carvedilol (COREG) 3.125 mg tablet 60 t* 0 04/08/2018 05/02/2018 Route: ORAL Sig: Take 1 tablet by mouth twice daily with meals. Disc: Reason for discontinue is not on file. hydrALAZINE (APRESOLINE) 25 mg tablet 270 * 3 05/02/2018 05/02/2018 Route: ORAL Sig: Take 1 tablet by mouth three times daily. Disc: Reason for discontinue is not on file. Disposition: Return in about 6 months (around 11/02/2018). Follow-up and Disposition History Recorded Encounter Status:Closed by Joy BROWNE MD on 05/02/18 Normal [facility] PROGRESSon 05-02-2018 Protein mass conc HNO ID: [id number] Author: Joy Browne Service: ? Author Type: Physician Type: Progress Notes Filed: 05/02/2018 12:08 PM Note Text: Heart and Vascular [place] Jyothi Coughlin Department of Cardiovascular Medicine [facility] OUTPATIENT VISIT DATE May 02, 2018 OUTPATIENT VISIT TYPE Established Patient PRIMARY CARE PHYSICIAN: Sadia Diaz MD ([facility]) [address] [place] [address] [place] [id number] REFERRING PHYSICIAN: Sacha Ford MD [address] [facility] [id number] CHIEF COMPLAINT: Office Follow-Up Visit HISTORY OF PRESENT ILLNESS: Ms. Lovett is a 73 year old female who presents today doing well. Bp is elevated. She was not taking her bp medications . No further angina after fixing the svr to rca She denies chest pain, shortness of breath, orthopnea, cough, edema, palpitations, PND, lightheadedness or syncope. PAST CARDIAC HISTORY: PROBLEM LIST: Specialty Problems Cardiology Problems Hypertensive emergency Essential hypertension, benign Other and unspecified hyperlipidemia Chest pain Aortic valve disorders Coronary atherosclerosis RISK FACTORS FOR CORONARY ARTERY DISEASE: PAST MEDICAL HISTORY Diagnosis Date - Acute myocardial infarction, unspecified site 11/28 s/p RCA stent, had stress Echo : told o.k. - Aortic valve disorders - Cancer (HCC) - Coronary atherosclerosis of unspecified type of vessel, nez perce or graft Coronary Atherosclerosis - Diabetes (HCC) - Mixed hyperlipidemia Hyperlipidemia - Psychiatric disorder - Unspecified essential hypertension Essential hypertension PAST SURGICAL HISTORY Procedure Laterality Date - CARDIAC CATHETERIZATION HX - CORONARY STENT EA VESSEL david 02/2015 - HEART SURGERY HX aortic valve replacement, CABGx3 - LIGATE FALLOPIAN TUBE SOCIAL HISTORY Social History Tobacco Use - Smoking status: Former Smoker Packs/day: 1.00 Years: 50.00 Pack years: 50.00 Last attempt to quit: 02/28/2013 Years since quittin.1 - Smokeless tobacco: Never Used - Tobacco comment: started in her teenage years Substance Use Topics - Alcohol use: Yes Comment: rarely - Drug use: No FAMILY HISTORY Problem Relation Age of Onset - Ischemic Heart Disease Maternal Grandmother - Ischemic Heart Disease Paternal Grandfather - Diabetes Mother - Diabetes Maternal Grandmother - Diabetes Maternal Aunt - other (chf) Mother - Hypertension Father - Lipids Father ALLERGIES: ALLERGIES Allergen Reactions - Statins [Other] Caused severe muscular weakness. - Sulfa (Sulfonamide * Caused severe generalized swelling. - Tape [Other] Severe skin reaction; needs to use paper tape MEDICATIONS: clopidogrel (PLAVIX) 75 mg tablet Take 1 tablet by mouth once daily. nitroglycerin sublingual (NITROQUICK) 0.4 mg SL tablet Dissolve 1 tablet under the tongue as needed for Chest Pain. aspirin 81 mg chewable tablet Take 1 tablet by mouth once daily. carvedilol (COREG) 12.5 mg tablet Take 1 tablet by mouth twice daily with meals. furosemide (LASIX) 40 mg tablet Take 1 tablet by mouth once daily. buPROPion XL (WELLBUTRIN XL) 150 mg 24 hr tablet Take 150 mg by mouth once daily. VITAMIN D 50,000 unit capsule Take 50,000 Units by mouth once each week. Patient unsure of dose sertraline (ZOLOFT) 100 mg tablet Take 150 mg by mouth once daily. omeprazole (PRILOSEC) 20 mg capsule Take 20 mg by mouth once daily. atorvastatin (LIPITOR) 80 mg tablet Take 1 tablet by mouth daily at bedtime. hydrALAZINE (APRESOLINE) 25 mg tablet Take 1 tablet by mouth three times daily. ALBUTEROL INHALATION Inhale 2 Puffs as instructed four times daily as needed (wheezing/shortness of breath). REVIEW OF SYSTEMS: GENERAL: Negative for: Weight loss or gain, Fever or Chills, Weakness and Sleep difficulties. HEENT: Negative for: Headache, Impaired Vision, Glasses, Hearing Impairment, Ringing in Ears, Nosebleeds, Poor dental care, Bleeding Gums, Dentures NECK: Negative for: Swelling, Pain, Stiffness GASTROINTESTINAL: Negative for: Trouble swallowing, Heartburn, Change in bowel habits, Blood in stool, Dark black stools MUSCULOSKELETAL: Negative for: Muscle or joint pain, Stiffness , Joint swelling NEUROLOGIC/PSYCHIATRI C: Negative for: Weakness, Paralysis, Numbness, Tingling, Tremor, Nervousness, Depressed mood, Memory loss SKIN: Negative for: Rashes, Itching HEMATOLOGICAL/LYMPHAT IC: Negative for: Easy bruising , Easy bleeding ENDOCRINE: Negative for: Heat or cold intolerance, Excessive sweating, Frequent urination, Frequent thirst I personally interviewed, confirmed and edited the above information if obtained by others. PHYSICAL EXAMINATION: BP 145/90 (BP Site: Right Arm, BP Position: Sitting, BP Cuff Size: Regular Adult) Pulse 80 Ht 170.2 cm (5' 7 ) Wt 73.8 kg (162 lb 9.6 oz) BMI 25.47 kg/m? General: Well appearing, in no acute distress. Skin: No clubbing, no cyanosis. Eyes: Extra ocular movements intact Oropharynx: Teeth in good repair. Neck: No jugular venous distention, no carotid bruits, carotids have a normal upstroke, no palpable thyromegaly. Lungs: Clear to auscultation bilaterally, no wheezing or rhonchi. Heart: Regular rhythm, PMI not displaced, S1, S2 normal, no S3, no S4, no heaves, no rub and no murmur. Abdomen: Soft, nontender, bowel sounds normal, no palpable organomegaly, no bruits. Extremities: No peripheral edema . Grade 2/4 distal pulses bilaterally. Neuro: Oriented to person, place and time, alert. CARDIOVASCULAR MEDICINE TESTING: No Cardiovascular testing perfomed today. I have personally reviewed the . IMPRESSION: Ms. Lovett is a 73 year old female stable . (I25.110) Atherosclerosis of coronary artery of nez perce heart with unstable angina pectoris, unspecified vessel or lesion type (HCC) Will resume coreg PLAN AND RECOMMENDATIONS: Lipid is managed and blood testing is done by pcp CONTACT INFORMATION: MD Akash Robbins and Uyen Coughlin Department of Cardiovascular Medicine Heart and Vascular [place] [facility] Cardiology [address] [place] [address] 2[address] [place] [address] [facility] ALLIED HEALTHon 04-08-2018 ALLIED HEALTH HNO ID: [id number] Author: Vanessa Ulrich) Manuel Service: Cardiovascular Surgery Author Type: Nurse Practitioner Type: Allied Health Filed: 05/02/2018 12:17 PM Note Text: Addendum: Admission Date: 03/26/2018 NYHA Class III 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, 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 Normal [facility] Basic Metabolic Panlon 04-08 Anion gap molar conc 12 mmol/L Normal 9-18 [facility] Comment on above: Performed By: #### P TT, NTBNP, HSTNT, CBCDIF, PT, CKCKMB, CMP #### [facility] [address] [place] [address] Calcium mass conc 8.7 mg/dL Normal 8.5-10.5 [facility] Comment on above: Performed By: #### P TT, NTBNP, HSTNT, CBCDIF, PT, CKCKMB, CMP #### [place] [address] Chloride molar conc 97 mmol/L Low 98-110 [facility] Comment on above: Performed By: #### P TT, NTBNP, HSTNT, CBCDIF, PT, CKCKMB, CMP #### [place] [id number] CO2 molar conc 30 mmol/L Normal 23-32 [facility] Comment on above: Performed By: #### P TT, NTBNP, HSTNT, CBCDIF, PT, CKCKMB, CMP #### [place] [id number] Creatinine mass conc 1.70 mg/dL High 0.70-1.40 [facility] Comment on above: Performed By: #### P TT, NTBNP, HSTNT, CBCDIF, PT, CKCKMB, CMP #### [place] [id number] eGFR- Amer. 36 Low >60 [facility] Comment on above: Performed By: #### P TT, NTBNP, HSTNT, CBCDIF, PT, CKCKMB, CMP #### [place] [id number] GFR/1.73 sq M predicted among non-blacks MDRD vol rate/area (S/P/Bld) 30 . Low >60 [facility] Comment on above: Performed By: #### P TT, NTBNP, HSTNT, CBCDIF, PT, CKCKMB, CMP #### [place] [id number] Glucose mass conc 142 mg/dL High 65-100 [facility] Comment on above: Performed By: #### P TT, NTBNP, HSTNT, CBCDIF, PT, CKCKMB, CMP #### [place] [id number] Potassium molar conc 4.6 mmol/L Normal 3.5-5.0 [facility] Comment on above: Performed By: #### P TT, NTBNP, HSTNT, CBCDIF, PT, CKCKMB, CMP #### [place] [phone] Sodium molar conc 139 mmol/L Normal 132-148 [facility] Comment on above: Performed By: #### P TT, NTBNP, HSTNT, CBCDIF, PT, CKCKMB, CMP #### [place] [phone] Urea nitrogen mass conc 53 mg/dL High 8-25 [facility] Comment on above: Performed By: #### P TT, NTBNP, HSTNT, CBCDIF, PT, CKCKMB, CMP #### [place] [phone] CBC and Differentialon 04-08 Abs Baso <0.03 Normal <0.11 [facility] Comment on above: Performed By: #### P TT, NTBNP, HSTNT, CBCDIF, PT, CKCKMB, CMP #### [place] [phone] Abs [place] 0.60 k/uL Normal <0.87 [facility] Comment on above: Performed By: #### P TT, NTBNP, HSTNT, CBCDIF, PT, CKCKMB, CMP #### [place] [phone] Abs Neut 6.77 k/uL Normal 1.45-7.50 [facility] Comment on above: Performed By: #### P TT, NTBNP, HSTNT, CBCDIF, PT, CKCKMB, CMP #### [place] [phone] Basophils/100 WBC (Bld) 0.2 % Normal [facility] Comment on above: Performed By: #### P TT, NTBNP, HSTNT, CBCDIF, PT, CKCKMB, CMP #### [place] [phone] DTYPE Auto Diff Normal [facility] Comment on above: Performed By: #### P TT, NTBNP, HSTNT, CBCDIF, PT, CKCKMB, CMP #### [place] [address] Eosinophils #/vol (Bld) 0.11 10*3/uL Normal <0.46 [facility] Comment on above: Performed By: #### P TT, NTBNP, HSTNT, CBCDIF, PT, CKCKMB, CMP #### [place] [address] Eosinophils/100 WBC (Bld) 1.3 % Normal [facility] Comment on above: Performed By: #### P TT, NTBNP, HSTNT, CBCDIF, PT, CKCKMB, CMP #### [place] [address] Erythrocyte distribution width Ratio (RBC) 13.8 % Normal 11.5-15.0 [facility] Comment on above: Performed By: #### P TT, NTBNP, HSTNT, CBCDIF, PT, CKCKMB, CMP #### [place] [address] Hematocrit Volume Fraction (Bld) 29.6 % Low 36.0-46.0 [facility] Comment on above: Performed By: #### P TT, NTBNP, HSTNT, CBCDIF, PT, CKCKMB, CMP #### [place] [address] Hemoglobin mass conc (Bld) 9.4 g/dL Low 11.5-15.5 [facility] Comment on above: Performed By: #### P TT, NTBNP, HSTNT, CBCDIF, PT, CKCKMB, CMP #### [place] [address] Lymphocytes #/vol (Bld) 1.16 10*3/uL Normal 1.00-4.00 [facility] Comment on above: Performed By: #### P TT, NTBNP, HSTNT, CBCDIF, PT, CKCKMB, CMP #### [phone] Lymphocytes/100 WBC (Bld) 13.4 % Normal [facility] Comment on above: Performed By: #### P TT, NTBNP, HSTNT, CBCDIF, PT, CKCKMB, CMP #### [place] [phone] MCH Entitic mass (RBC) 29.3 pG Normal 26.0-34.0 [facility] Comment on above: Performed By: #### P TT, NTBNP, HSTNT, CBCDIF, PT, CKCKMB, CMP #### [place] [phone] MCHC mass conc (RBC) 31.8 g/dL Normal 30.5-36.0 [facility] Comment on above: Performed By: #### P TT, NTBNP, HSTNT, CBCDIF, PT, CKCKMB, CMP #### [place] [phone] MCV Entitic volume (RBC) 92.2 fL Normal 80.0-100.0 [facility] Comment on above: Performed By: #### P TT, NTBNP, HSTNT, CBCDIF, PT, CKCKMB, CMP #### [place] [phone] Monocytes/100 WBC (Bld) 6.9 % Normal [facility] Comment on above: Performed By: #### P TT, NTBNP, HSTNT, CBCDIF, PT, CKCKMB, CMP #### [phone] Neutrophils/100 WBC (Bld) 78.2 % Normal [facility] Comment on above: Performed By: #### P TT, NTBNP, HSTNT, CBCDIF, PT, CKCKMB, CMP #### [place] [phone] Platelet mean volume Entitic volume (Bld) 10.0 fL Normal 9.0-12.7 [facility] Comment on above: Performed By: #### P TT, NTBNP, HSTNT, CBCDIF, PT, CKCKMB, CMP #### [place] [phone] Platelets #/vol (Bld) 225 10*3/uL Normal 150-400 [facility] Comment on above: Performed By: #### P TT, NTBNP, HSTNT, CBCDIF, PT, CKCKMB, CMP #### [place] [phone] RBC #/vol (Bld) 3.21 10*6/uL Low 3.90-5.20 [facility] Comment on above: Performed By: #### P TT, NTBNP, HSTNT, CBCDIF, PT, CKCKMB, CMP #### [place] [phone] WBC #/vol (Bld) 8.66 10*3/uL Normal 3.70-11.00 [facility] Comment on above: Performed By: #### P TT, NTBNP, HSTNT, CBCDIF, PT, CKCKMB, CMP #### [place] [phone] CNDSon 04-08-2018 CNDS HNO ID: [id number] Author: Neftali Layton Service: General Internal Medicine Author Type: Physician Type: Discharge Summaries Filed: 04/09/2018 2:54 PM Note Text: DISCHARGE SUMMARY PATIENT NAME: Sarina Lovett Code Status: DNR-CCA Highest Readmission Risk Score: 43 The 30 day readmissions risk score is derived from an internally validated risk model which evaluates patient level characteristics, utilization history, medication orders and lab results up until the day of discharge. Patients with a score of 40 or above are considered highest risk for readmission. Specific patient level drivers will be listed at the bottom of the summary. Admission Information Admission Information ADMIT DATE: 03/24/2018 DISCHARGE DATE: 04/08/18 MY DOCTORS AND MEDICAL TEAM: My Main Hospital Doctor: Andree Peters Primary Care Provider: Sacha Ford MD My Medical Team Members: Treatment Team: Attending Provider: Andree Peters Consulting: Eleni Flanagan Consulting: Arminda Olvera Consulting: Jose Jack MY CONDITION AT DISCHARGE: Stable REASON I WAS IN THE HOSPITAL: (R07.9) Chest pain, unspecified type (primary encounter diagnosis) (N17.9) JULIETA (acute kidney injury) (HCC) (E87.5) Hyperkalemia (R74.8) Elevated troponin (I21.4) NSTEMI (non-ST elevated myocardial infarction) (HCC) (I20.0) Unstable angina pectoris (HCC) (I25.110) Atherosclerosis of coronary artery of nez perce heart with unstable angina pectoris, unspecified vessel or lesion type (HCC) (I10) Essential hypertension, benign (I16.1) Hypertensive emergency (F99) Psychiatric disorder (Z72.0) Tobacco abuse (I50.9) Acute decompensated heart failure (HCC) (J96.01) Acute respiratory failure with hypoxia (HCC) (N17.9, N18.3) Acute renal failure superimposed on stage 3 chronic kidney disease, unspecified acute renal failure type (HCC) (F17.200) Nicotine use disorder SUMMARY OF WHAT HAPPENED WHILE I WAS IN THE HOSPITAL: You were admitted for acute heart attack and CHF. You underwent heart catheterization that resulted in stents. you were also treated for CHF with diuretics You also had diarrhea and abdominal pain due to diverticulitis and treated with a full course of intravenous antibiotics OTHER PROBLEMS/DIAGNOSIS: Principal Problem: NSTEMI (non-ST elevated myocardial infarction) ([facility]) Active Problems: Essential hypertension, benign Chest pain Coronary atherosclerosis Tobacco abuse Psychiatric disorder Nicotine use disorder, F17.2 Contrast dye induced nephropathy Acute renal failure superimposed on stage 3 chronic kidney disease (HCC) Resolved Problems: * No resolved hospital problems. * OPERATIONS PERFORMED WHILE IN THE HOSPITAL: None IMPORTANT TEST/PROCEDURES: Heart Catheterization: Intervention: TEST RESULTS NOT AVAILABLE AT THIS TIME: No pending results Discharge Disposition Discharge Disposition: Home With Self Care Activity When You Leave the Hospital Resume pre-hospital activity Diet Instructions Resume your pre-hospital diet Call Your Doctor If You have a severe headache You have lightheadedness, fainting, or confusion You have persistent nausea/vomiting over 24 hours Your temperature is greater than 101F Follow Up Appointments Follow-Up Appointment [phone] With: Dr. Andree Peters When: In 1 week Patient/Parents to call for appointment?: Yes Additional Provider to Provider Information: This is a 73 yo F with PMH of PCI to the RCA in 2000, CABG in 2005, then in 2015 repeat PCI, s/p replacement in 2005, HTN, DLD, DM, presenting with mid-sternal chest pain that started around 3pm, constant, crushing , 08/07 currently 06/07, without aggravating or alleviating factors. This pain has been intermittent for the past 3 weeks but has been progressively increasing in severity. She has associated dizziness, and palpitations. She denies dyspnea, diaphoresis, nausea, vomiting, syncope, low leg edema. She states this feels similar to her prior [place]. She denies history of DVT/PE. She is currently being treated for NSTEMI 73 year old CAD (CABG in 2005, PCI to RCA in 2000 and 2015), aortic stenosis (s/p replacement in 2005 with #[address] [employer] Bioprosthetic valve), HTN, HLD, DM?who presented with chest pain and elevated troponin, found to have NSTEMI. Cath done on 03/26 resulting in 2 DAVID in SVG to RCA. Patient transferred to [facility] on 03/29, back to [facility] on 04/02 for increased SOB and significantly elevated troponin. Now back on [facility] Acute hypoxic respiratory failure CHF and pulmonary edema ; history of tobacco abuse Suspect worsening respiratory status due to CHF and possible underlying COPD. Required CPAP again on 04/02 and was transferred back to [facility]. CXR with significant pulmonary edema R>L, restarted on lasix. Back on NC 2L on 04/03. 2V CXR improved on 04/04/2018, no evidence of pneumonia. CXR with continued improvement. - supplemental O2 PRN; CPAP PRN for worsening respiratory status ? Acute on chronic diastolic HF EF?56%, Echo on 03/25 with EF50% and grade I diastolic dysfunction. Repeat echo on 04/02 with EF56%, no significant change despite worsening clinical status. Net negative 2L on 04/02 after 40mg IV lasix with improved respiratory status. Started on IV milrinone 04/03/[address] Browne, discontinued on 04/05. - continue coreg 3.125mg BID, ACEi on hold for JULIETA - , may start lasix 40 mg po daily ? NSTEMI (non-ST elevated myocardial infarction) (HCC) POA: Yes Chest pain POA: Yes Coronary atherosclerosis POA: Yes Patient with significant CAD history, presented with chest pain and elevated troponin, 2 DAVID in SVG to RCA on 03/26. Started on asa/plavix. Chest pain has resolved. - continue plavix / asa, lipitor 80mg daily, coreg 3.125mg BID ? Spleen lesions On CT, multiple lesions were seen which were new / changed from prior exams (did see splenic cysts on prior exams). - recommend MRI to evaluate further, would suggest as outpatient or once clinical status improves ? Acute Sigmoid Diverticulitis Patient with history of diverticulitis, developed worsening abd pain and diarrhea while admitted. C diff negative. CT abd with sigmoid diverticulitis - on cipro, flagyl PO?(day 7?today) - GI soft diet, tolerating well - per GI, needs low fiber diet x2 weeks, then high fiber diet - GI consult on board will need colonoscopy in 8 weeks ? Essential hypertension, benign POA: Yes Presented with SBP in 200s, improved during admission. BP borderline low, decreased coreg and improved on 04/03. ? - coreg 3.125mg BID - hydralazine 25mg TID ? Contrast dye induced nephropathy POA: No Acute renal failure superimposed on stage 3 chronic kidney disease (HCC) POA: No Baseline Cr 1.3-1.5, increased during admission to max of 3.6 thought to be due to contrast as well as hypotension. Improving / stable . Renal ultrasound without hydronephrosis. Cr continues to improve during admission. - sodium bicarb 325mg TID - nephrology following, appreciate input ? Transitions of Care Critical Issues: NEW BASELINE FOR PATIENT: now on antiplatelet meds LABS AND PROCEDURES PENDING AT DISCHARGE: No pending results. Ruled Out FOLLOW-UP APPOINTMENTS ALREADY SCHEDULED WITH A [facility] PROVIDER: No future appointments. Discharge Information Row Name ED to Hosp-Admission (Current) from 03/24/[address] [facility] ALLERGIES Allergen Reactions - Statins [Other] Caused severe muscular weakness. - Sulfa (Sulfonamide * Caused severe generalized swelling. - Tape [Other] Severe skin reaction; needs to use paper tape DISCHARGE MEDICATION: Discharge Medication List as of 04/08/2018 1:23 PM START taking these medications atorvastatin (LIPITOR) 80 mg tablet Take 1 tablet by mouth daily at bedtime. Normal, Disp-30 tablet, R-0, Long-term hydrALAZINE (APRESOLINE) 25 mg tablet Take 1 tablet by mouth three times daily. Normal, Disp-90 tablet, R-0, Long-term nitroglycerin sublingual (NITROQUICK) 0.4 mg SL tablet Dissolve 1 tablet under the tongue as needed for Chest Pain. Normal, Disp-1 Bottle of 25, R-0, Long-term CONTINUE these medications which have CHANGED carvedilol (COREG) 3.125 mg tablet Take 1 tablet by mouth twice daily with meals. Normal, Disp-60 tablet, R-0, Long-term furosemide (LASIX) 40 mg tablet Take 1 tablet by mouth once daily. Normal, Disp-30 tablet, R-0, Long-term clopidogrel (PLAVIX) 75 mg tablet Take 1 tablet by mouth once daily. Normal, Disp-30 tablet, R-5, Long-term CONTINUE these medications which have NOT CHANGED ALBUTEROL INHALATION Inhale 2 Puffs as instructed four times daily as needed (wheezing/shortness of breath). Historical Med, Long-term buPROPion XL (WELLBUTRIN XL) 150 mg 24 hr tablet Take 150 mg by mouth once daily. Historical Med VITAMIN D 50,000 unit capsule Take 50,000 Units by mouth once each week. Patient unsure of dose Historical Med, MARIO aspirin 81 mg chewable tablet Take 81 mg by mouth once daily. Historical Med sertraline (ZOLOFT) 100 mg tablet Take 150 mg by mouth once daily. Historical Med omeprazole (PRILOSEC) 20 mg capsule Take 20 mg by mouth once daily. Historical Med STOP taking these medications glimepiride (AMARYL) 1 mg tablet Comments: Reason for Stopping: glimepiride (AMARYL) 1 mg tablet Comments: Reason for Stopping: lisinopril (ZESTRIL, PRINIVIL) 20 mg tablet Comments: Reason for Stopping: amLODIPine (NORVASC) 5 mg tablet Comments: Reason for Stopping: Discharge Physical Exam: VITAL SIGNS: BP 155/54 Pulse 71 Temp 37 ?C (98.6 ?F) (Oral) Resp 16 Ht 170.2 cm (5' 7.01 ) Wt 76.1 kg (167 lb 11.2 oz) SpO2 96% BMI 26.26 kg/m? GENERAL: Alert, no distress, cooperative OROPHARYNX: no oral lesions LUNGS: Lungs clear to auscultation, Good diaphragmatic excursion CARDIAC: Normal S1 and S2; no rubs, murmurs, or gallops ABDOMEN: Abdomen soft, non-tender, BS normal, No masses or organomegaly EXTREMITIES: No ulcers, no edema NEURO: Grossly normal cognition, motor function, and cranial nerves III-XII PULSES: 2+ radial, 2+ carotid The patient's risk for 30-day readmission is determined using the following contributing factors: Pt variables contributing to increased readmission risk: 53 Most Recent BUN Result 27 Active Medication Orders 9.8 First Resulted Calcium During Admission 1 Previous ED Visit (6 mos.)? 1 Number of Previous ED Visits (6 mos.) 1 Insurance - Medicare 1 Discharge Disposition - Home 1 History of Chronic Kidney Disease 1 Active Anticoagulant TIME OF CARE: Discharge Management: I personally spent greater than 30 minutes involved in the discharge management of this patient. SIGNATURE: Neftali Layton MD PAGER/CONTACT #: DATE: April 08, 2018 TIME: 1:09 PM Normal [facility] Magnesiumon 04-08-2018 Magnesium mass conc 1.8 mg/dL Normal 1.7-2.6 [facility] Comment on above: Performed By: #### P TT, NTBNP, HSTNT, CBCDIF, PT, CKCKMB, CMP #### [facility] [address] [place] [address] NURSING PROGon 04-08-2018 Protein mass conc HNO ID: [id number] Author: Emi (Rn) DEBBIE Jo Service: (none) Author Type: Registered Nurse Type: Nursing Progress Note Filed: 04/08/2018 3:12 PM Note Text: Nursing Progress Note Patient Name: Sarina Lovett Patient Location: PK Daily Note: Discharge instructions reviewed with pt. She is dressed and waiting for her ride home. This note was completed by: Emi Jo RN [facility] Protein mass conc HNO ID: [id number] Author: Emi (Rn) DEBBIE Jo Service: (none) Author Type: Registered Nurse Type: Nursing Progress Note Filed: 04/08/2018 1:21 PM Note Text: Nursing Progress Note Patient Name: Sarina Lovett Patient Location: -[id number] Daily Note: Pt. is feeling well today and is ready for d/c home. She is up in room with standby assist. Browning pulled at 0800 and she has voided 300 ml. Pt. denies pain. Heplock and telemetry pack removed. Pt. is getting dressed. This note was completed by: Emi Jo RN [facility] PLAN OF CAREon 04-08-2018 PLAN OF CARE HNO ID: [id number] Author: Sandra Grullon (Call Center Dispatcher) Service: (none) Author Type: Pharmacist Type: Plan of Care Filed: 04/08/2018 1:55 PM Note Text: DISCHARGE MEDICATION REVIEW BY PHARMACY Patient Name: Sarina Lovett Account #: @[email or web address]@ Admission Date: 03/24/2018 Date of Contact: April 08, 2018 Time of Contact: 1:55 PM Medication list was reviewed by a Pharmacist for drug interactions or drug related problems:Yes Below is a summary of pharmacist recommendations discussed with LIP: No Recommendations at this time from Discharge Medication List. SANDRA GRULLON, PATCH DRILLER April 08, 2018 1:55 PM Pager: [phone] 04/08/2018 1:55 PM Medication List START taking these medications atorvastatin 80 mg tablet Commonly known as: LIPITOR Take 1 tablet by mouth daily at bedtime. hydrALAZINE 25 mg tablet Commonly known as: APRESOLINE Take 1 tablet by mouth three times daily. nitroglycerin sublingual 0.4 mg SL tablet Commonly known as: NITROQUICK Dissolve 1 tablet under the tongue as needed for Chest Pain. CHANGE how you take these medications carvedilol 3.125 mg tablet Commonly known as: COREG Take 1 tablet by mouth twice daily with meals. What changed: ? medication strength ? how much to take clopidogrel 75 mg tablet Commonly known as: PLAVIX Take 1 tablet by mouth once daily. Start taking on: 04/09/2018 What changed: additional instructions furosemide 40 mg tablet Commonly known as: LASIX Take 1 tablet by mouth once daily. Start taking on: 04/09/2018 What changed: ? medication strength ? how much to take CONTINUE taking these medications ALBUTEROL INHALATION aspirin 81 mg chewable tablet omeprazole 20 mg capsule Commonly known as: PriLOSEC sertraline 100 mg tablet Commonly known as: ZOLOFT Vitamin D 50,000 unit capsule Generic drug: ergocalciferol (vitamin D2) WELLBUTRIN XL 150 mg 24 hr tablet Generic drug: buPROPion XL STOP taking these medications amLODIPine 5 mg tablet Commonly known as: NORVASC glimepiride 1 mg tablet Commonly known as: AMARYL lisinopril 20 mg tablet Commonly known as: ZESTRIL, PRINIVIL Where to Get Your Medications These medications were sent to [facility] [address] [place] [phone] [id number] [facility] [phone] [id number] [facility] [id number] Hours: 24-hours ? atorvastatin 80 mg tablet ? carvedilol 3.125 mg tablet ? clopidogrel 75 mg tablet ? furosemide 40 mg tablet ? hydrALAZINE 25 mg tablet ? nitroglycerin sublingual 0.4 mg SL tablet Normal [facility] THERAPY NTon 04-08-2018 THERAPY NT HNO ID: [id number] Author: Yuko (Poultry Trimmer) Tommy Service: Respiratory Therapy Author Type: (none) Type: Therapy (PT/OT/Speech/Resp) Filed: 04/07/2018 10:42 PM Note Text: RESPIRATORY THERAPY PROGRESS NOTE SERVICE DATE: 04/07/2018 SERVICE TIME: 2240 Patient is refusing NIV for the night at this time. Will continue to monitor and intervene if necessary. SIGNATURE: Yuko Sanders, COMPUTER NUMERICAL CONTROL GRINDER PATIENT NAME: Sarina Lovett DATE: April 07, 2018 TIME: 10:42 PM PAGER/CONTACT #: [place] Normal [facility] Basic Metabolic Panlon 04-07 Anion gap molar conc 13 mmol/L Normal 9-18 [facility] Comment on above: Performed By: #### P TT, NTBNP, HSTNT, CBCDIF, PT, CKCKMB, CMP #### [place] [address] Calcium mass conc 8.6 mg/dL Normal 8.5-10.5 [facility] Comment on above: Performed By: #### P TT, NTBNP, HSTNT, CBCDIF, PT, CKCKMB, CMP #### [place] [address] Chloride molar conc 98 mmol/L Normal 98-110 [facility] Comment on above: Performed By: #### P TT, NTBNP, HSTNT, CBCDIF, PT, CKCKMB, CMP #### [place] [address] CO2 molar conc 27 mmol/L Normal 23-32 [facility] Comment on above: Performed By: #### P TT, NTBNP, HSTNT, CBCDIF, PT, CKCKMB, CMP #### [place] [address] Creatinine mass conc 1.74 mg/dL High 0.70-1.40 [facility] Comment on above: Performed By: #### P TT, NTBNP, HSTNT, CBCDIF, PT, CKCKMB, CMP #### [place] [address] eGFR- Amer. 35 Low >60 [facility] Comment on above: Performed By: #### P TT, NTBNP, HSTNT, CBCDIF, PT, CKCKMB, CMP #### [place] [id number] GFR/1.73 sq M predicted among non-blacks MDRD vol rate/area (S/P/Bld) 29 . Low >60 [facility] Comment on above: Performed By: #### P TT, NTBNP, HSTNT, CBCDIF, PT, CKCKMB, CMP #### [place] [phone] Glucose mass conc 145 mg/dL High 65-100 [facility] Comment on above: Performed By: #### P TT, NTBNP, HSTNT, CBCDIF, PT, CKCKMB, CMP #### [place] [id number] Potassium molar conc 4.5 mmol/L Normal 3.5-5.0 [facility] Comment on above: Performed By: #### P TT, NTBNP, HSTNT, CBCDIF, PT, CKCKMB, CMP #### [place] [id number] Sodium molar conc 138 mmol/L Normal 132-148 [facility] Comment on above: Performed By: #### P TT, NTBNP, HSTNT, CBCDIF, PT, CKCKMB, CMP #### [place] [phone] Urea nitrogen mass conc 60 mg/dL High 8-25 [facility] Comment on above: Performed By: #### P TT, NTBNP, HSTNT, CBCDIF, PT, CKCKMB, CMP #### [place] [phone] CASE MANAGEMon 04-07-2018 CASE MANAGEM HNO ID: [id number] Author: Bro Wood (Sw) Service: Care Management Author Type: Plastic Surgery Nurse Type: Care Mgt Progress Note Filed: 04/07/2018 11:45 AM Note Text: CARE MANAGEMENT PROGRESS NOTE SERVICE DATE: 04/07/2018 SERVICE TIME: 10:26 AM LOS: 14 days Needs Prior to Discharge: To Be Determined Patient transferred to [facility]. Plan is home health care at discharge. [facility] can accept, home care order needed. Patient may need home O2. Desat study needed. May benefit from [facility] for CHF management. SIGNATURE: KARRIE FORTE PATIENT NAME: Sarina Lovett DATE: April 07, 2018 TIME: 10:26 AM PAGER/CONTACT #: [phone] Normal [facility] CBC and Differentialon 04-07 Abs Baso <0.03 Normal <0.11 [facility] Comment on above: Performed By: #### P TT, NTBNP, HSTNT, CBCDIF, PT, CKCKMB, CMP #### [place] [address] Abs [place] 0.57 k/uL Normal <0.87 [facility] Comment on above: Performed By: #### P TT, NTBNP, HSTNT, CBCDIF, PT, CKCKMB, CMP #### [place] [id number] Abs Neut 5.40 k/uL Normal 1.45-7.50 [facility] Comment on above: Performed By: #### P TT, NTBNP, HSTNT, CBCDIF, PT, CKCKMB, CMP #### [address] Basophils/100 WBC (Bld) 0.3 % Normal [facility] Comment on above: Performed By: #### P TT, NTBNP, HSTNT, CBCDIF, PT, CKCKMB, CMP #### [place] [id number] DTYPE Auto Diff Normal [facility] Comment on above: Performed By: #### P TT, NTBNP, HSTNT, CBCDIF, PT, CKCKMB, CMP #### [place] [id number] Eosinophils #/vol (Bld) 0.12 10*3/uL Normal <0.46 [facility] Comment on above: Performed By: #### P TT, NTBNP, HSTNT, CBCDIF, PT, CKCKMB, CMP #### [place] [address] Eosinophils/100 WBC (Bld) 1.7 % Normal [facility] Comment on above: Performed By: #### P TT, NTBNP, HSTNT, CBCDIF, PT, CKCKMB, CMP #### [place] [address] Erythrocyte distribution width Ratio (RBC) 13.8 % Normal 11.5-15.0 [facility] Comment on above: Performed By: #### P TT, NTBNP, HSTNT, CBCDIF, PT, CKCKMB, CMP #### [place] [address] Hematocrit Volume Fraction (Bld) 29.9 % Low 36.0-46.0 [facility] Comment on above: Performed By: #### P TT, NTBNP, HSTNT, CBCDIF, PT, CKCKMB, CMP #### [place] [address] Hemoglobin mass conc (Bld) 9.3 g/dL Low 11.5-15.5 [facility] Comment on above: Performed By: #### P TT, NTBNP, HSTNT, CBCDIF, PT, CKCKMB, CMP #### [place] [address] Lymphocytes #/vol (Bld) 0.79 10*3/uL Low 1.00-4.00 [facility] Comment on above: Performed By: #### P TT, NTBNP, HSTNT, CBCDIF, PT, CKCKMB, CMP #### [place] [id number] Lymphocytes/100 WBC (Bld) 11.4 % Normal [facility] Comment on above: Performed By: #### P TT, NTBNP, HSTNT, CBCDIF, PT, CKCKMB, CMP #### [place] [id number] MCH Entitic mass (RBC) 28.9 pG Normal 26.0-34.0 [facility] Comment on above: Performed By: #### P TT, NTBNP, HSTNT, CBCDIF, PT, CKCKMB, CMP #### [place] [phone] MCHC mass conc (RBC) 31.1 g/dL Normal 30.5-36.0 [facility] Comment on above: Performed By: #### P TT, NTBNP, HSTNT, CBCDIF, PT, CKCKMB, CMP #### [place] [id number] MCV Entitic volume (RBC) 92.9 fL Normal 80.0-100.0 [facility] Comment on above: Performed By: #### P TT, NTBNP, HSTNT, CBCDIF, PT, CKCKMB, CMP #### [place] [id number] Monocytes/100 WBC (Bld) 8.3 % Normal [facility] Comment on above: Performed By: #### P TT, NTBNP, HSTNT, CBCDIF, PT, CKCKMB, CMP #### [place] [id number] Neutrophils/100 WBC (Bld) 78.3 % Normal [facility] Comment on above: Performed By: #### P TT, NTBNP, HSTNT, CBCDIF, PT, CKCKMB, CMP #### [place] [id number] Platelet mean volume Entitic volume (Bld) 10.2 fL Normal 9.0-12.7 [facility] Comment on above: Performed By: #### P TT, NTBNP, HSTNT, CBCDIF, PT, CKCKMB, CMP #### [place] [phone] Platelets #/vol (Bld) 235 10*3/uL Normal 150-400 [facility] Comment on above: Performed By: #### P TT, NTBNP, HSTNT, CBCDIF, PT, CKCKMB, CMP #### [place] [phone] RBC #/vol (Bld) 3.22 10*6/uL Low 3.90-5.20 [facility] Comment on above: Performed By: #### P TT, NTBNP, HSTNT, CBCDIF, PT, CKCKMB, CMP #### [place] [phone] WBC #/vol (Bld) 6.90 10*3/uL Normal 3.70-11.00 [facility] Comment on above: Performed By: #### P TT, NTBNP, HSTNT, CBCDIF, PT, CKCKMB, CMP #### [place] [phone] CONSULT PROGon 04-07-2018 Protein mass conc HNO ID: [id number] Author: Clif Dhillon Service: Nephrology Author Type: Physician Type: Consult Progress Note Filed: 04/07/2018 11:36 AM Note Text: Nephrology Progress Note Following for JULIETA on CKD Doing well today no new complaints, off dopamine since yesterday hemodynamically stable for now On oral lasix now Current Inpatient Medications: Current hospital medications: furosemide 40 mg tab(s) (LASIX) 40 mg ORAL DAILY calcium carbonate 500 mg chewable tab(s) (TUMS) 500 mg ORAL BID PRN ferrous sulfate 325 mg tab(s) 325 mg ORAL TID w MEALS ciprofloxacin HCl 500 mg tab(s) (CIPRO) 500 mg ORAL DAILY metroNIDAZOLE 500 mg tab(s) (FLAGYL) 500 mg ORAL q 8 H hydrALAZINE 25 mg tab(s) (APRESOLINE) 25 mg ORAL q 8 H carvedilol 3.125 mg tab(s) (COREG) 3.125 mg ORAL BID w MEALS heparin 5,000 Units injection 5,000 Units SUBCUTANEOUS q 12 H acetaminophen 500-1,000 mg tab(s) (TYLENOL) 500-1,000 mg ORAL q 6 H PRN oxyCODONE IR 5-10 mg tab(s) (ROXICODONE) 5-10 mg ORAL q 6 H PRN ipratropium-albuterol 3 mL nebulizer solution (DUONEB) 3 mL INHALATION q 4 H while awake atorvastatin 80 mg tab(s) (LIPITOR) 80 mg ORAL AT BEDTIME nitroglycerin sublingual 0.4 mg tab(s) (NITROQUICK) 0.4 mg SUBLINGUAL PRN prochlorperazine 5 mg injection (COMPAZINE) 5 mg INTRAVENOUS q 6 H PRN insulin lispro injection (rapid acting) (HumaLOG) SUBCUTANEOUS w MEALS AND HS aspirin 81 mg chewable tab(s) 81 mg ORAL DAILY sertraline 150 mg tab(s) (ZOLOFT) 150 mg ORAL DAILY clopidogrel 75 mg tab(s) (PLAVIX) 75 mg ORAL DAILY buPROPion XL 150 mg tab(s) (WELLBUTRIN XL) 150 mg ORAL DAILY NaCl 0.9% 3-5 mL 3-5 mL INTRAVENOUS q 12 H polyethylene glycol 3350 17 g packet (MIRALAX, GLYCOLAX) 17 g ORAL DAILY PRN bisacodyl 10 mg suppository (DULCOLAX) 10 mg RECTAL DAILY PRN melatonin 1 mg tab(s) 1 mg ORAL HS PRN dextrose 40 % 15 g 15 g ORAL PRN glucagon 1 mg injection (GLUCAGEN) 1 mg INTRAMUSCULAR PRN dextrose 50% in water 25 mL syringe 12.5 g INTRAVENOUS PRN pantoprazole DR 20 mg tab(s) (PROTONIX) 20 mg ORAL DAILY (6 AM) Vitals: 04/07/18 0732 04/07/18 1114 04/07/18 1120 04/07/18 1128 BP: 144/64 Pulse: 71 60 61 (!) 59 Resp: 18 17 18 18 Temp: 36.3 ?C (97.3 ?F) TempSrc: Temporal Artery SpO2: 95% 100% 99% 97% Weight: Height: INTAKE/OUTPUT: Intake/Output Summary (Last 24 hours) at 04/07/18 1133 Last data filed at 04/07/18 0618 Gross per 24 hour Intake 34.1 ml Output 1395 ml Net -1360.9 ml Physical Exam: Gen: NAD Skin:no rash Heent: AT NC Neck: no JVD CVS: RRR s1s2 Resp: CTAB Abd: soft NT DN +BS : no browning Ext: No edema Labs: Recent Labs 04/07/18 0452 04/06/18 0318 04/05/18 0245 04/04/18 1555 04/04/18 0401 04/03/18 0354 04/02/18 0744 04/02/18 0612 CREAT 1.74* 1.89* 1.77* 1.84* 1.84* -- 2.22* 2.21* 2.29* 2.33* BUN 60* 62* 63* 67* 68* -- 75* 75* 76* 77* NA 138 137 136 137 137 -- 138 137 135 134 K 4.5 5.1* 4.9 3.9 3.4* -- 3.8 3.9 4.1 4.1 CHLOR 98 97* 99 96* 94* -- 97* 97* 97* 97* CO2 27 29 26 28 27 -- 24 23 20* 19* GLUC 145* 134* 125* 167* 135* -- 105* 107* 127* 115* CA 8.6 8.7 8.8 8.9 8.7 -- 9.1 9.2 8.8 8.8 MG 1.9 2.1 2.1 -- 2.3 < > -- -- -- P -- -- -- -- -- -- 5.2* -- 5.0* ALB -- -- -- -- -- -- 3.2* 3.3* 3.4* WBC 6.90 6.78 8.03 -- 6.50 < > 6.77 8.23 -- HB 9.3* 9.5* 9.2* -- 8.6* < > 7.5* 8.2* -- MCV 92.9 90.5 90.1 -- 86.9 < > 87.5 86.8 -- PLT 235 253 241 -- 221 < > 207 192 -- < > = values in this interval not displayed. No results for input(s): BUNPR, BUNPO in the last 168 hours. Recent Labs 04/02/18 0740 03/31/18 1435 PH 7.33* 7.35 PCO2 40 32* PO2 81 76* LACT -- 0.6 Assessment / Plan: 1. JULIETA sec to MATTIE - creatinine is peaked at 3.6, it has been trending down last cr is 1.7 - cont with PO lasix - serial labs - cr is close to baseline 2. CKD stage III, she might CKD at the baseline, her creatinine on admission was 1.5, creatinine is stable around 1.7 now 3. CHF and volume load - on PO lasix today - diuretic management per cardiology 4. Anemia 5. Mild hyperkalemia - resolved OK to DC from renal standpoint, follow up in 2-3 weeks Clif Jarvis MD [facility] Normal [facility] Magnesiumon 04-07-2018 Magnesium mass conc 1.9 mg/dL Normal 1.7-2.6 [facility] Comment on above: Performed By: #### P TT, NTBNP, HSTNT, CBCDIF, PT, CKCKMB, CMP #### [facility] [address] [place] [address] PROGRESSon 04-07-2018 Protein mass conc HNO ID: [id number] Author: Jose Jack Service: Pulmonary Disease Author Type: Physician Type: Progress Notes Filed: 04/07/2018 5:50 PM Note Text: Pulmonary/Critical Care Progress Note PATIENT NAME: Sarina Lovett DATE of SERVICE: April 07, 2018 TIME of SERVICE: 5:49 PM Admitting Physician: Andree Peters Attending Physician: Andree Peters S: Feels better with improved SOB and cough without significant sputum production. Current hospital medications: furosemide 40 mg tab(s) (LASIX) 40 mg ORAL DAILY calcium carbonate 500 mg chewable tab(s) (TUMS) 500 mg ORAL BID PRN ferrous sulfate 325 mg tab(s) 325 mg ORAL TID w MEALS ciprofloxacin HCl 500 mg tab(s) (CIPRO) 500 mg ORAL DAILY metroNIDAZOLE 500 mg tab(s) (FLAGYL) 500 mg ORAL q 8 H hydrALAZINE 25 mg tab(s) (APRESOLINE) 25 mg ORAL q 8 H carvedilol 3.125 mg tab(s) (COREG) 3.125 mg ORAL BID w MEALS heparin 5,000 Units injection 5,000 Units SUBCUTANEOUS q 12 H acetaminophen 500-1,000 mg tab(s) (TYLENOL) 500-1,000 mg ORAL q 6 H PRN oxyCODONE IR 5-10 mg tab(s) (ROXICODONE) 5-10 mg ORAL q 6 H PRN ipratropium-albuterol 3 mL nebulizer solution (DUONEB) 3 mL INHALATION q 4 H while awake atorvastatin 80 mg tab(s) (LIPITOR) 80 mg ORAL AT BEDTIME nitroglycerin sublingual 0.4 mg tab(s) (NITROQUICK) 0.4 mg SUBLINGUAL PRN prochlorperazine 5 mg injection (COMPAZINE) 5 mg INTRAVENOUS q 6 H PRN insulin lispro injection (rapid acting) (HumaLOG) SUBCUTANEOUS w MEALS AND HS aspirin 81 mg chewable tab(s) 81 mg ORAL DAILY sertraline 150 mg tab(s) (ZOLOFT) 150 mg ORAL DAILY clopidogrel 75 mg tab(s) (PLAVIX) 75 mg ORAL DAILY buPROPion XL 150 mg tab(s) (WELLBUTRIN XL) 150 mg ORAL DAILY NaCl 0.9% 3-5 mL 3-5 mL INTRAVENOUS q 12 H polyethylene glycol 3350 17 g packet (MIRALAX, GLYCOLAX) 17 g ORAL DAILY PRN bisacodyl 10 mg suppository (DULCOLAX) 10 mg RECTAL DAILY PRN melatonin 1 mg tab(s) 1 mg ORAL HS PRN dextrose 40 % 15 g 15 g ORAL PRN glucagon 1 mg injection (GLUCAGEN) 1 mg INTRAMUSCULAR PRN dextrose 50% in water 25 mL syringe 12.5 g INTRAVENOUS PRN pantoprazole DR 20 mg tab(s) (PROTONIX) 20 mg ORAL DAILY (6 AM) O: PHYSICAL EXAMINATION: Blood pressure 143/50, pulse 80, temperature 36.7 ?C (98.1 ?F), temperature source Temporal Artery, resp. rate 16, height 170.2 cm (5' 7.01 ), weight 74.8 kg (165 lb), SpO2 95 %., Body mass index is 25.84 kg/m?. GENERAL: Cooperative, pleasant, in no acute distress. NECK: no jugulovenous distention, supple LUNGS: Good breath sounds to both lung aguilar with soft bibasilar crackles. No wheezing. LABORATORY: CBC, Coags, BMP, Mg, Phos Recent Labs 04/07/18 0452 04/06/18 0318 04/05/18 0245 WBC 6.90 6.78 8.03 HB 9.3* 9.5* 9.2* HCT 29.9* 29.4* 28.3* PLT 235 253 241 NA 138 137 136 K 4.5 5.1* 4.9 CHLOR 98 97* 99 CO2 27 29 26 BUN 60* 62* 63* CREAT 1.74* 1.89* 1.77* GLUC 145* 134* 125* CA 8.6 8.7 8.8 MG 1.9 2.1 2.1 ASSESSMENT AND PLAN: Acute hypoxic respiratory failure: Likely secondary to pulmonary edema secondary to acute non-Q-wave WI Improving with current treatment and now with good saturation on room air. I will discontinue CPAP. Okay for discharge from a pulmonary standpoint once otherwise ready. SIGNATURE: Jose Jack MD DATE: April 07, 2018 TIME: 5:49 PM This note was partially created using voice recognition software and is inherently subject to errors including those of syntax and sound-alike substitutions which may escape proofreading. In such instances, original meaning may be extrapolated by contextual derivation. ?? Normal [facility] Protein mass conc HNO ID: [id number] Author: Joy Browne Service: Cardiovascular Disease Author Type: Physician Type: Progress Notes Filed: 04/07/2018 1:11 PM Note Text: Doing very well No sob no chest pain Renal improving Cxr improved. Stable on current rx Ok for discharge Follow up as out patient In one week Continue present treatment No los due to akd Normal [facility] Protein mass conc HNO ID: [id number] Author: Andree Peters Service: General Internal Medicine Author Type: Physician Type: Progress Notes Filed: 04/07/2018 9:20 PM Note Text: INPATIENT PROGRESS NOTE SERVICE DATE: 04/07/2018 SERVICE TIME: 10:11 AM PRIMARY SERVICE: Internal Medicine Subjective CHIEF COMPLAINT: follow up on respiratory failure, JULIETA, diverticulitis. INTERVAL HPI: the pt feels much better. She denies any sob, cp cough or fever. The pt denies any abd pain, nausea or vomiting. She has had no diarrhea or blood in the stools and overall she reports feeling great. Current hospital medications: furosemide 40 mg tab(s) (LASIX) 40 mg ORAL DAILY calcium carbonate 500 mg chewable tab(s) (TUMS) 500 mg ORAL BID PRN ferrous sulfate 325 mg tab(s) 325 mg ORAL TID w MEALS ciprofloxacin HCl 500 mg tab(s) (CIPRO) 500 mg ORAL DAILY metroNIDAZOLE 500 mg tab(s) (FLAGYL) 500 mg ORAL q 8 H hydrALAZINE 25 mg tab(s) (APRESOLINE) 25 mg ORAL q 8 H carvedilol 3.125 mg tab(s) (COREG) 3.125 mg ORAL BID w MEALS heparin 5,000 Units injection 5,000 Units SUBCUTANEOUS q 12 H acetaminophen 500-1,000 mg tab(s) (TYLENOL) 500-1,000 mg ORAL q 6 H PRN oxyCODONE IR 5-10 mg tab(s) (ROXICODONE) 5-10 mg ORAL q 6 H PRN ipratropium-albuterol 3 mL nebulizer solution (DUONEB) 3 mL INHALATION q 4 H while awake atorvastatin 80 mg tab(s) (LIPITOR) 80 mg ORAL AT BEDTIME nitroglycerin sublingual 0.4 mg tab(s) (NITROQUICK) 0.4 mg SUBLINGUAL PRN prochlorperazine 5 mg injection (COMPAZINE) 5 mg INTRAVENOUS q 6 H PRN insulin lispro injection (rapid acting) (HumaLOG) SUBCUTANEOUS w MEALS AND HS aspirin 81 mg chewable tab(s) 81 mg ORAL DAILY sertraline 150 mg tab(s) (ZOLOFT) 150 mg ORAL DAILY clopidogrel 75 mg tab(s) (PLAVIX) 75 mg ORAL DAILY buPROPion XL 150 mg tab(s) (WELLBUTRIN XL) 150 mg ORAL DAILY NaCl 0.9% 3-5 mL 3-5 mL INTRAVENOUS q 12 H polyethylene glycol 3350 17 g packet (MIRALAX, GLYCOLAX) 17 g ORAL DAILY PRN bisacodyl 10 mg suppository (DULCOLAX) 10 mg RECTAL DAILY PRN melatonin 1 mg tab(s) 1 mg ORAL HS PRN dextrose 40 % 15 g 15 g ORAL PRN glucagon 1 mg injection (GLUCAGEN) 1 mg INTRAMUSCULAR PRN dextrose 50% in water 25 mL syringe 12.5 g INTRAVENOUS PRN pantoprazole [address] 20 mg tab(s) (PROTONIX) 20 mg ORAL DAILY (6 AM) Objective PHYSICAL EXAM: BP 146/38 Pulse 71 Temp (Src) 97.9 (Temporal Artery) Resp 18 Ht 5' 7.008 (1.70m) Wt 165 lb (74.8kg) SpO2 95% BMI 25.84 kg/(m2). Physical Exam Performed GENERAL: Alert, no distress, cooperative SKIN: Skin color, texture, turgor normal. No rashes or lesions. NECK: No jugulovenous distention, No carotid bruits, Carotid pulse normal contour, Supple LUNGS: Lungs clear to auscultation, Good diaphragmatic excursion CARDIAC: Normal S1 and S2; no rubs, murmurs, or gallops ABDOMEN: Abdomen soft, non-tender, BS normal, No masses or organomegaly EXTREMITIES: Extremities normal, no deformities, edema, clubbing or skin discoloration. Good capillary refill., No ulcers DATA: Diagnostic tests reviewed for today's visit: Most recent labs and imaging results. Assessment/Plan *Sarina Lovett is a 73 year old CAD (CABG in 2005, PCI to RCA in 2000 and 2015), aortic stenosis (s/p replacement in 2005 with #[address] [employer] Bioprosthetic valve), HTN, HLD, DM?who presented with chest pain and elevated troponin, found to have NSTEMI. Cath done on 03/26 resulting in 2 DAVID in SVG to RCA. Patient transferred to [facility] on 03/29, back to [facility] on 04/02 for increased SOB and significantly elevated troponin. Now back on [facility] ? Acute hypoxic respiratory failure CHF and pulmonary edema ; history of tobacco abuse Suspect worsening respiratory status due to CHF and possible underlying COPD. Required CPAP again on 04/02 and was transferred back to [facility]. CXR with significant pulmonary edema R>L, restarted on lasix. Back on NC 2L on 04/03. 2V CXR improved on 04/04/2018, no evidence of pneumonia. CXR with continued improvement. - supplemental O2 PRN; CPAP PRN for worsening respiratory status - incentive spirometry - duonebs q4h while awake - pulmonology is following ? Acute on chronic diastolic HF EF 56%, Echo on 03/25 with EF50% and grade I diastolic dysfunction. Repeat echo on 04/02 with EF56%, no significant change despite worsening clinical status. Net negative 2L on 04/02 after 40mg IV lasix with improved respiratory status. Started on IV milrinone 04/03/[address] Nukta, discontinued on 04/05. - continue coreg 3.125mg BID, ACEi on hold for JULIETA - , may start lasix 40 mg po daily today - cardiology following, appreciate input ? NSTEMI (non-ST elevated myocardial infarction) (HCC) POA: Yes Chest pain POA: Yes Coronary atherosclerosis POA: Yes Patient with significant CAD history, presented with chest pain and elevated troponin, 2 DAVID in SVG to RCA on 03/26. Started on asa/plavix. Chest pain has resolved. - continue plavix / asa, lipitor 80mg daily, coreg 3.125mg BID ? Spleen lesions On CT, multiple lesions were seen which were new / changed from prior exams (did see splenic cysts on prior exams). - recommend MRI to evaluate further, would suggest as outpatient or once clinical status improves ? Acute Sigmoid Diverticulitis Patient with history of diverticulitis, developed worsening abd pain and diarrhea while admitted. C diff negative. CT abd with sigmoid diverticulitis - on cipro, flagyl PO?(day 7?today) - GI soft diet, tolerating well - per GI, needs low fiber diet x2 weeks, then high fiber diet - GI consult on board will need colonoscopy in 8 weeks ? Essential hypertension, benign POA: Yes Presented with SBP in 200s, improved during admission. BP borderline low, decreased coreg and improved on 04/03. ? - coreg 3.125mg BID - hydralazine 25mg TID ? Contrast dye induced nephropathy POA: No Acute renal failure superimposed on stage 3 chronic kidney disease (HCC) POA: No Baseline Cr 1.3-1.5, increased during admission to max of 3.6 thought to be due to contrast as well as hypotension. Improving / stable . Renal ultrasound without hydronephrosis. Cr continues to improve during admission. - sodium bicarb 325mg TID - nephrology following, appreciate input - , may restart PO lasix today ? Anemia Patient with chronic anemia, baseline Hgb 9-11 range; normocytic. Ferritin was normal, thought to be anemia of chronic disease. Patient without melena or hematochezia. Hgb 7.5 on 04/03, given 1U pRBCs with appropriate response. - continue to monitor - PO iron TID - will need outpatient colonoscopy as above ? T2DM ? On glimepiride 1mg BID at home, last A1c 9.3% in 08/2016 at [facility]. Repeat A1c on admission 6.0%. - SSI1 - holding home glimepiride due to JULIETA ? Tobacco abuse POA: Yes 50 pack-year history, encourage cessation. ? Psychiatric disorder POA: Yes Patient with history of depression, significant social stressors. - continue zoloft 150mg daily, wellbutrin 150mg daily ? Mild protein-calorie malnutrition Albumin 3.2. Encourage PO intake, diet being advanced. ? VTE Prophylaxis - subQ heparin 5000U Medication and Non-Pharmacologic VTE Prophylaxis/Anticoagu lants Anticoagulant AND Antiplatelet Medications Start Dose Route Frequency Ordered Stop 03/30/18 1000 heparin 5,000 Units injection 5,000 Units SUBCUTANEOUS EVERY 12 HOURS 03/30/18 0955 -- 03/25/18 0900 aspirin 81 mg chewable tab(s) 81 mg ORAL DAILY 03/24/182035 -- 03/24/182099 clopidogrel 75 mg tab(s) (PLAVIX) 75 mg ORAL DAILY 03/24/182035 -- 03/24/182044 vte non-pharmacologic prophylaxis - none indicated (mt,ky) 03/24/182044 activity - mobilize patient ([place], [place]) VTE Prophylaxis: VTE prophylaxis appropriate SIGNATURE: Andree Peters MD PATIENT NAME: Sarina Lovett DATE: April 07, 2018 TIME: 10:11 AM PAGER: [facility] ALLIED HEALTHon 04-06-2018 ALLIED HEALTH HNO ID: [id number] Author: Amanda Koenig (Rt) Service: Radiology Author Type: Commercial Management Accountant Type: Allied Health Filed: 04/06/2018 6:24 AM Note Text: Radiology Service Progress Note PATIENT NAME: Sarina Lovett DATE OF SERVICE: April 06, 2018 TIME: 6: AM PATIENT IDENTITY VERIFICATION COMPLETED USING TWO (2) METHODS: Patient confirmed name verbally and ID band matches.. PATIENT GENDER DATA: Female. status: : No status: N/A PATIENT RELEVANT IMPLANT DATA REVIEWED: Not Applicable RADIOLOGY DEPARTMENT: General X-ray: Exam(s) Completed: Chest X-Ray PERIPHERAL IV DATA: Not applicable SIGNED BY: RT Arya April 06, 2018 6:23 AM [facility] Basic Metabolic Panlon 04-06 Anion gap molar conc 11 mmol/L Normal 9-18 [facility] Comment on above: Performed By: #### P TT, NTBNP, HSTNT, CBCDIF, PT, CKCKMB, CMP #### [place] [phone] Calcium mass conc 8.7 mg/dL Normal 8.5-10.5 [facility] Comment on above: Performed By: #### P TT, NTBNP, HSTNT, CBCDIF, PT, CKCKMB, CMP #### [place] [phone] Chloride molar conc 97 mmol/L Low 98-110 [facility] Comment on above: Performed By: #### P TT, NTBNP, HSTNT, CBCDIF, PT, CKCKMB, CMP #### [place] [phone] CO2 molar conc 29 mmol/L Normal 23-32 [facility] Comment on above: Performed By: #### P TT, NTBNP, HSTNT, CBCDIF, PT, CKCKMB, CMP #### [place] [id number] Creatinine mass conc 1.89 mg/dL High 0.70-1.40 [facility] Comment on above: Performed By: #### P TT, NTBNP, HSTNT, CBCDIF, PT, CKCKMB, CMP #### [place] [id number] eGFR- Amer. 32 Low >60 [facility] Comment on above: Performed By: #### P TT, NTBNP, HSTNT, CBCDIF, PT, CKCKMB, CMP #### [place] [id number] GFR/1.73 sq M predicted among non-blacks MDRD vol rate/area (S/P/Bld) 26 . Low >60 [facility] Comment on above: Performed By: #### P TT, NTBNP, HSTNT, CBCDIF, PT, CKCKMB, CMP #### [place] [id number] Glucose mass conc 134 mg/dL High 65-100 [facility] Comment on above: Performed By: #### P TT, NTBNP, HSTNT, CBCDIF, PT, CKCKMB, CMP #### [place] [id number] Potassium molar conc 5.1 mmol/L High 3.5-5.0 [facility] Comment on above: Performed By: #### P TT, NTBNP, HSTNT, CBCDIF, PT, CKCKMB, CMP #### [place] [id number] Sodium molar conc 137 mmol/L Normal 132-148 [facility] Comment on above: Performed By: #### P TT, NTBNP, HSTNT, CBCDIF, PT, CKCKMB, CMP #### [place] [id number] Urea nitrogen mass conc 62 mg/dL High 8-25 [facility] Comment on above: Performed By: #### P TT, NTBNP, HSTNT, CBCDIF, PT, CKCKMB, CMP #### [place] [id number] CBC and Differentialon 04-06 Abs Baso <0.03 Normal <0.11 [facility] Comment on above: Performed By: #### P TT, NTBNP, HSTNT, CBCDIF, PT, CKCKMB, CMP #### [place] [id number] Abs [place] 0.53 k/uL Normal <0.87 [facility] Comment on above: Performed By: #### P TT, NTBNP, HSTNT, CBCDIF, PT, CKCKMB, CMP #### [place] [id number] Abs Neut 5.35 k/uL Normal 1.45-7.50 [facility] Comment on above: Performed By: #### P TT, NTBNP, HSTNT, CBCDIF, PT, CKCKMB, CMP #### [place] [address] Basophils/100 WBC (Bld) 0.3 % Normal [facility] Comment on above: Performed By: #### P TT, NTBNP, HSTNT, CBCDIF, PT, CKCKMB, CMP #### [place] [address] DTYPE Auto Diff Normal [facility] Comment on above: Performed By: #### P TT, NTBNP, HSTNT, CBCDIF, PT, CKCKMB, CMP #### [place] [address] Eosinophils #/vol (Bld) 0.12 10*3/uL Normal <0.46 [facility] Comment on above: Performed By: #### P TT, NTBNP, HSTNT, CBCDIF, PT, CKCKMB, CMP #### [place] [address] Eosinophils/100 WBC (Bld) 1.8 % Normal [facility] Comment on above: Performed By: #### P TT, NTBNP, HSTNT, CBCDIF, PT, CKCKMB, CMP #### [place] [address] Erythrocyte distribution width Ratio (RBC) 14.0 % Normal 11.5-15.0 [facility] Comment on above: Performed By: #### P TT, NTBNP, HSTNT, CBCDIF, PT, CKCKMB, CMP #### [place] [address] Hematocrit Volume Fraction (Bld) 29.4 % Low 36.0-46.0 [facility] Comment on above: Performed By: #### P TT, NTBNP, HSTNT, CBCDIF, PT, CKCKMB, CMP #### [place] [address] Hemoglobin mass conc (Bld) 9.5 g/dL Low 11.5-15.5 [facility] Comment on above: Performed By: #### P TT, NTBNP, HSTNT, CBCDIF, PT, CKCKMB, CMP #### [place] [address] Lymphocytes #/vol (Bld) 0.76 10*3/uL Low 1.00-4.00 [facility] Comment on above: Performed By: #### P TT, NTBNP, HSTNT, CBCDIF, PT, CKCKMB, CMP #### [address] Lymphocytes/100 WBC (Bld) 11.2 % Normal [facility] Comment on above: Performed By: #### P TT, NTBNP, HSTNT, CBCDIF, PT, CKCKMB, CMP #### [address] MCH Entitic mass (RBC) 29.2 pG Normal 26.0-34.0 [facility] Comment on above: Performed By: #### P TT, NTBNP, HSTNT, CBCDIF, PT, CKCKMB, CMP #### [place] [id number] MCHC mass conc (RBC) 32.3 g/dL Normal 30.5-36.0 [facility] Comment on above: Performed By: #### P TT, NTBNP, HSTNT, CBCDIF, PT, CKCKMB, CMP #### [address] MCV Entitic volume (RBC) 90.5 fL Normal 80.0-100.0 [facility] Comment on above: Performed By: #### P TT, NTBNP, HSTNT, CBCDIF, PT, CKCKMB, CMP #### [place] [id number] Monocytes/100 WBC (Bld) 7.8 % Normal [facility] Comment on above: Performed By: #### P TT, NTBNP, HSTNT, CBCDIF, PT, CKCKMB, CMP #### [place] [address] Neutrophils/100 WBC (Bld) 78.9 % Normal [facility] Comment on above: Performed By: #### P TT, NTBNP, HSTNT, CBCDIF, PT, CKCKMB, CMP #### [place] [phone] Platelet mean volume Entitic volume (Bld) 10.1 fL Normal 9.0-12.7 [facility] Comment on above: Performed By: #### P TT, NTBNP, HSTNT, CBCDIF, PT, CKCKMB, CMP #### [place] [phone] Platelets #/vol (Bld) 253 10*3/uL Normal 150-400 [facility] Comment on above: Performed By: #### P TT, NTBNP, HSTNT, CBCDIF, PT, CKCKMB, CMP #### [place] [phone] RBC #/vol (Bld) 3.25 10*6/uL Low 3.90-5.20 [facility] Comment on above: Performed By: #### P TT, NTBNP, HSTNT, CBCDIF, PT, CKCKMB, CMP #### [place] [phone] WBC #/vol (Bld) 6.78 10*3/uL Normal 3.70-11.00 [facility] Comment on above: Performed By: #### P TT, NTBNP, HSTNT, CBCDIF, PT, CKCKMB, CMP #### [place] [address] CONSULT Theresa 04-06-2018 Protein mass conc HNO ID: [id number] Author: Clif Carltonshrutidesiree Service: Nephrology Author Type: Physician Type: Consult Progress Note Filed: 04/06/2018 4:38 PM Note Text: Nephrology Progress Note Following for JULIETA on CKD She is feeling OK, no SOB, no orthopnea no PND, Seems she is OK for now Still on dopamine drip and IV lasix Current Inpatient Medications: Current hospital medications: [START ON 04/07/2018] furosemide 40 mg tab(s) (LASIX) 40 mg ORAL DAILY calcium carbonate 500 mg chewable tab(s) (TUMS) 500 mg ORAL BID PRN ferrous sulfate 325 mg tab(s) 325 mg ORAL TID w MEALS ciprofloxacin HCl 500 mg tab(s) (CIPRO) 500 mg ORAL DAILY metroNIDAZOLE 500 mg tab(s) (FLAGYL) 500 mg ORAL q 8 H hydrALAZINE 25 mg tab(s) (APRESOLINE) 25 mg ORAL q 8 H perflutren lipid microspheres 1.1 mg/mL 1.3 mL injection (DEFINITY) 1.3 mL INTRAVENOUS DIRECTED PRN carvedilol 3.125 mg tab(s) (COREG) 3.125 mg ORAL BID w MEALS heparin 5,000 Units injection 5,000 Units SUBCUTANEOUS q 12 H acetaminophen 500-1,000 mg tab(s) (TYLENOL) 500-1,000 mg ORAL q 6 H PRN oxyCODONE IR 5-10 mg tab(s) (ROXICODONE) 5-10 mg ORAL q 6 H PRN ipratropium-albuterol 3 mL nebulizer solution (DUONEB) 3 mL INHALATION q 4 H while awake atorvastatin 80 mg tab(s) (LIPITOR) 80 mg ORAL AT BEDTIME [MAR Hold due to Transfer] nitroglycerin sublingual 0.4 mg tab(s) (NITROQUICK) 0.4 mg SUBLINGUAL PRN prochlorperazine 5 mg injection (COMPAZINE) 5 mg INTRAVENOUS q 6 H PRN insulin lispro injection (rapid acting) (HumaLOG) SUBCUTANEOUS w MEALS AND HS aspirin 81 mg chewable tab(s) 81 mg ORAL DAILY sertraline 150 mg tab(s) (ZOLOFT) 150 mg ORAL DAILY clopidogrel 75 mg tab(s) (PLAVIX) 75 mg ORAL DAILY buPROPion XL 150 mg tab(s) (WELLBUTRIN XL) 150 mg ORAL DAILY NaCl 0.9% 3-5 mL 3-5 mL INTRAVENOUS q 12 H polyethylene glycol 3350 17 g packet (MIRALAX, GLYCOLAX) 17 g ORAL DAILY PRN bisacodyl 10 mg suppository (DULCOLAX) 10 mg RECTAL DAILY PRN melatonin 1 mg tab(s) 1 mg ORAL HS PRN dextrose 40 % 15 g 15 g ORAL PRN glucagon 1 mg injection (GLUCAGEN) 1 mg INTRAMUSCULAR PRN dextrose 50% in water 25 mL syringe 12.[address] g INTRAVENOUS PRN pantoprazole [address] 20 mg tab(s) (PROTONIX) 20 mg ORAL DAILY (6 AM) Vitals: 04/06/18 1400 04/06/18 1500 04/06/18 1528 04/06/18 1600 BP: 147/65 123/58 123/58 Pulse: 74 95 83 Resp: 16 16 Temp: 36.9 ?C (98.4 ?F) TempSrc: Oral SpO2: 98% 99% Weight: Height: INTAKE/OUTPUT: Intake/Output Summary (Last 24 hours) at 04/06/18 1631 Last data filed at 04/06/18 1500 Gross per 24 hour Intake 1279.7 ml Output 2385 ml Net -1105.3 ml Physical Exam: Gen: NAD Skin:no rash Heent: AT NC Neck: no JVD CVS: RRR s1s2 Resp: CTAB Abd: soft NT DN +BS : no browning Ext: No edema Labs: Recent Labs 04/06/18 0318 04/05/18 0245 04/04/18 1555 04/04/18 0401 04/03/18 2209 04/03/18 0354 04/02/18 0744 04/02/18 0612 03/31/18 0553 CREAT 1.89* 1.77* 1.84* 1.84* -- 2.22* 2.21* 2.29* 2.33* < > 3.60* BUN 62* 63* 67* 68* -- 75* 75* 76* 77* < > 85* NA 137 136 137 137 -- 138 137 135 134 < > 128* K 5.1* 4.9 3.9 3.4* -- 3.8 3.9 4.1 4.1 < > 3.2* CHLOR 97* 99 96* 94* -- 97* 97* 97* 97* < > 88* CO2 29 26 28 27 -- 24 23 20* 19* < > 14* GLUC 134* 125* 167* 135* -- 105* 107* 127* 115* < > 132* CA 8.7 8.8 8.9 8.7 -- 9.1 9.2 8.8 8.8 < > 7.8* MG 2.1 2.1 -- 2.3 -- -- -- -- -- 2.1 P -- -- -- -- -- 5.2* -- 5.0* < > 6.2* ALB -- -- -- -- -- 3.2* 3.3* 3.4* -- 3.2* WBC 6.78 8.03 -- 6.50 6.33 6.77 8.23 -- < > 8.16 HB 9.5* 9.2* -- 8.6* 8.5* 7.5* 8.2* -- < > 7.8* MCV 90.5 90.1 -- 86.9 88.2 87.5 86.8 -- < > 85.8 PLT 253 241 -- 221 210 207 192 -- < > 152 < > = values in this interval not displayed. No results for input(s): BUNPR, BUNPO in the last 168 hours. Recent Labs 04/02/18 0740 03/31/18 1435 PH 7.33* 7.35 PCO2 40 32* PO2 81 76* LACT -- 0.6 Assessment / Plan: 1. JULIETA sec to MATTIE - creatinine is peaked at 3.6 - cr is going up again most likely sec to diuresis - switch to PO lasix per cardiology tomorrow 2. CKD stage III, she might CKD at the baseline, her creatinine on admission was 1.5, creatinine is stable around 1.7 now 3. CHF and volume load - still on dopamine drip today - diuretic management per cardiology 4. Anemia 5. Mild hyperkalemia - expect improvement with lasix Clif Jarvis MD [facility] Normal [facility] Magnesiumon 04-06-2018 Magnesium mass conc 2.1 mg/dL Normal 1.7-2.6 [facility] Comment on above: Performed By: #### P TT, NTBNP, HSTNT, CBCDIF, PT, CKCKMB, CMP #### [place] [id number] [place] [address] PROGRESSon 04-06-2018 Protein mass conc HNO ID: [id number] Author: Joy Browne Service: Cardiovascular Disease Author Type: Physician Type: Progress Notes Filed: 04/06/2018 2:02 PM Note Text: Patient is doing better Cxr showed resolution of congestion Renal function fairly stable. Would like to keep patient on dry side Will resume oral lasix tomorrow Dopamine is off Normal [facility] Protein mass conc HNO ID: [id number] Author: Jose Jack Service: Pulmonary Disease Author Type: Physician Type: Progress Notes Filed: 04/06/2018 11:25 AM Note Text: Pulmonary/Critical Care Progress Note PATIENT NAME: Sarina Lovett DATE of SERVICE: April 06, 2018 TIME of SERVICE: 11:24 AM Admitting Physician: Andree Peters Attending Physician: Mary Thao S: Feels better with improved SOB and no significant cough or sputum production. Tolerating CPAP well at night. Current hospital medications: DOPamine iv infusion 800 mg/250 mL D5W 2.5 mcg/kg/min INTRAVENOUS CONTINUOUS milrinone 20 mg in D5W 100 mL (PRIMACOR) 0.375 mcg/kg/min INTRAVENOUS CONTINUOUS calcium carbonate 500 mg chewable tab(s) (TUMS) 500 mg ORAL BID PRN ferrous sulfate 325 mg tab(s) 325 mg ORAL TID w MEALS ciprofloxacin HCl 500 mg tab(s) (CIPRO) 500 mg ORAL DAILY metroNIDAZOLE 500 mg tab(s) (FLAGYL) 500 mg ORAL q 8 H hydrALAZINE 25 mg tab(s) (APRESOLINE) 25 mg ORAL q 8 H perflutren lipid microspheres 1.1 mg/mL 1.3 mL injection (DEFINITY) 1.3 mL INTRAVENOUS DIRECTED PRN carvedilol 3.125 mg tab(s) (COREG) 3.125 mg ORAL BID w MEALS heparin 5,000 Units injection 5,000 Units SUBCUTANEOUS q 12 H acetaminophen 500-1,000 mg tab(s) (TYLENOL) 500-1,000 mg ORAL q 6 H PRN oxyCODONE IR 5-10 mg tab(s) (ROXICODONE) 5-10 mg ORAL q 6 H PRN ipratropium-albuterol 3 mL nebulizer solution (DUONEB) 3 mL INHALATION q 4 H while awake atorvastatin 80 mg tab(s) (LIPITOR) 80 mg ORAL AT BEDTIME [MAR Hold due to Transfer] nitroglycerin sublingual 0.4 mg tab(s) (NITROQUICK) 0.4 mg SUBLINGUAL PRN prochlorperazine 5 mg injection (COMPAZINE) 5 mg INTRAVENOUS q 6 H PRN insulin lispro injection (rapid acting) (HumaLOG) SUBCUTANEOUS w MEALS AND HS aspirin 81 mg chewable tab(s) 81 mg ORAL DAILY sertraline 150 mg tab(s) (ZOLOFT) 150 mg ORAL DAILY clopidogrel 75 mg tab(s) (PLAVIX) 75 mg ORAL DAILY buPROPion XL 150 mg tab(s) (WELLBUTRIN XL) 150 mg ORAL DAILY NaCl 0.9% 3-5 mL 3-5 mL INTRAVENOUS q 12 H polyethylene glycol 3350 17 g packet (MIRALAX, GLYCOLAX) 17 g ORAL DAILY PRN bisacodyl 10 mg suppository (DULCOLAX) 10 mg RECTAL DAILY PRN melatonin 1 mg tab(s) 1 mg ORAL HS PRN dextrose 40 % 15 g 15 g ORAL PRN glucagon 1 mg injection (GLUCAGEN) 1 mg INTRAMUSCULAR PRN dextrose 50% in water 25 mL syringe 12.5 g INTRAVENOUS PRN pantoprazole [address] 20 mg tab(s) (PROTONIX) 20 mg ORAL DAILY (6 AM) O: PHYSICAL EXAMINATION: Blood pressure 131/52, pulse (!) 59, temperature 36.7 ?C (98.1 ?F), temperature source Oral, resp. rate 18, height 170.2 cm (5' 7.01 ), weight 79.8 kg (175 lb 14.8 oz), SpO2 98 %., Body mass index is 27.55 kg/m?. GENERAL: Cooperative, pleasant, in no acute distress. NECK: no jugulovenous distention, supple LUNGS: Slightly decreased breath sounds to both lung aguilar with soft bibasilar crackles. LABORATORY: CBC, Coags, BMP, Mg, Phos Recent Labs 04/06/18 0318 04/05/18 0245 04/04/18 1555 04/04/18 0401 WBC 6.78 8.03 -- 6.50 HB 9.5* 9.2* -- 8.6* HCT 29.4* 28.3* -- 25.8* PLT 253 241 -- 221 NA 137 136 137 137 K 5.1* 4.9 3.9 3.4* CHLOR 97* 99 96* 94* CO2 29 26 28 27 BUN 62* 63* 67* 68* CREAT 1.89* 1.77* 1.84* 1.84* GLUC 134* 125* 167* 135* CA 8.7 8.8 8.9 8.7 MG 2.1 2.1 -- 2.3 IMAGING STUDIES: Her chest x-ray was reviewed and showed an improvement in the bilateral interstitial infiltrates. ASSESSMENT AND PLAN: Acute hypoxic respiratory failure: Likely secondary to pulmonary edema secondary to acute non-Q-wave WI. Slowly improving with current treatment. We'll continue with diuresis and inotropes per cardiology service. Consider discontinue CPAP in the next 1-2 days if she continues to improve. SIGNATURE: Jose Jack MD DATE: April 06, 2018 TIME: 11:24 AM This note was partially created using voice recognition software and is inherently subject to errors including those of syntax and sound-alike substitutions which may escape proofreading. In such instances, original meaning may be extrapolated by contextual derivation. ?? Normal [facility] Protein mass conc HNO ID: [id number] Author: Mary Thao Service: Hospital Medicine Author Type: Physician Type: Progress Notes Filed: 04/06/2018 10:48 AM Note Text: HOSPITAL MEDICINE [facility] PROGRESS NOTE NAME: Sarina Lovett SERVICE DATE: 04/06/2018 SERVICE TIME: 10:03 AM ASSESSMENT AND PLAN Sarina Lovett is a 73 year old CAD (CABG in 2005, PCI to RCA in 2000 and 2015), aortic stenosis (s/p replacement in [address] with #[address] [employer] Bioprosthetic valve), HTN, HLD, DM?who presented with chest pain and elevated troponin, found to have NSTEMI. Cath done on 03/26 resulting in 2 DAVID in SVG to RCA. Patient transferred to [facility] on 03/29, back to [facility] on 04/02 for increased SOB and significantly elevated troponin. ? Acute hypoxic respiratory failure CHF and pulmonary edema ; history of tobacco abuse Suspect worsening respiratory status due to CHF and possible underlying COPD. Required CPAP again on 04/02 and was transferred back to [facility]. CXR with significant pulmonary edema R>L, restarted on lasix. Back on NC 2L on 04/03. 2V CXR improved on 04/04/2018, no evidence of pneumonia. CXR with continued improvement. - supplemental O2 PRN; CPAP PRN for worsening respiratory status - incentive spirometry - duonebs q4h while awake - pulmonology consulted, appreciate input ? Acute on chronic diastolic HF EF 56%, Echo on 03/25 with EF50% and grade I diastolic dysfunction. Repeat echo on 04/02 with EF56%, no significant change despite worsening clinical status. Net negative 2L on 04/02 after 40mg IV lasix with improved respiratory status. Started on IV milrinone 04/03/[address] Browne, discontinued on 04/05. - continue coreg 3.125mg BID, ACEi on hold for JULIETA - hold lasix today because of increase BUN/Cr , may start lasix 40 mg po daily tomorrow - Continue on IV dopamine , started on 04/05/[address] Browne - cardiology following, appreciate input ? NSTEMI (non-ST elevated myocardial infarction) (HCC) POA: Yes Chest pain POA: Yes Coronary atherosclerosis POA: Yes Patient with significant CAD history, presented with chest pain and elevated troponin, 2 DAVID in SVG to RCA on 03/26. Started on asa/plavix. Chest pain has resolved. - continue plavix / asa, lipitor 80mg daily, coreg 3.125mg BID ? Elevated Troponin Patient presented with NSTEMI, Trop T up to 2.16 prior to cath. Rechecked trop with worsening respiratory status on 04/02 and had increased to 10.09. Per cardiology, thought to be related to post-PCI vs pulmonary edema. Patient without chest pain. Nitro drip stopped. ? Spleen lesions On CT, multiple lesions were seen which were new / changed from prior exams (did see splenic cysts on prior exams). - recommend MRI to evaluate further, would suggest as outpatient or once clinical status improves ? Acute Sigmoid Diverticulitis Patient with history of diverticulitis, developed worsening abd pain and diarrhea while admitted. C diff negative. CT abd with sigmoid diverticulitis - on cipro, flagyl PO (day 7?today) - GI soft diet, tolerating well - per GI, needs low fiber diet x2 weeks, then high fiber diet - GI consult on board will need colonoscopy in 8 weeks ? Essential hypertension, benign POA: Yes Presented with SBP in 200s, improved during admission. BP borderline low, decreased coreg and improved on 04/03. ? - coreg 3.125mg BID - hydralazine 25mg TID ? Contrast dye induced nephropathy POA: No Acute renal failure superimposed on stage 3 chronic kidney disease (HCC) POA: No Baseline Cr 1.3-1.5, increased during admission to max of 3.6 thought to be due to contrast as well as hypotension. Improving / stable to 2.2 on 04/03/2018. Renal ultrasound without hydronephrosis. Cr continues to improve during admission. - sodium bicarb 325mg TID - nephrology following, appreciate input - hold lasix today, may restart PO lasix tomorrow ? Anemia Patient with chronic anemia, baseline Hgb 9-11 range; normocytic. Ferritin was normal, thought to be anemia of chronic disease. Patient without melena or hematochezia. Hgb 7.5 on 04/03, given 1U pRBCs with appropriate response. - continue to monitor - PO iron TID - will need outpatient colonoscopy as above ? T2DM ? On glimepiride 1mg BID at home, last A1c 9.3% in 08/2016 at [facility]. Repeat A1c on admission 6.0%. - SSI1 - holding home glimepiride due to JULIETA ? Tobacco abuse POA: Yes 50 pack-year history, encourage cessation. ? Psychiatric disorder POA: Yes Patient with history of depression, significant social stressors. - continue zoloft 150mg daily, wellbutrin 150mg daily ? Mild protein-calorie malnutrition Albumin 3.2. Encourage PO intake, diet being advanced. VTE Prophylaxis - subQ heparin 5000U BID Dispo - possible transfer to [facility] later today SUBJECTIVE INTERVAL HPI: Ms. Lovett feels well today. She denies chest pain, palpitations, or SOB. She is anxious to be able to get up and move around. Nausea and one episode vomiting today after breakfast and hacking cough , no abd. Pain MEDICATIONS: Reviewed OBJECTIVE VITAL SIGNS (last 24hrs min/max): Temp Av.9 ?C (98.4 ?F) Min: 36.7 ?C (98.1 ?F) Max: 37.1 ?C (98.8 ?F) Pulse Av.4 Min: 60 Max: 90 Cuff BP Min: 132/54 Max: 165/55 Pain Score: Pt. 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 I have seen and evaluated the patient and discussed the case with the resident physician. ?I agree with the assessment and plan as documented in the resident?s note. Discussed with dr. Browne and dr. Dumas ? Mary Thao MD 04/06/18 [facility] THERAPY NTon 04-06-2018 THERAPY NT HNO ID: [id number] Author: Leydi (OtJass Hansen Service: Occupational Therapy Author Type: Occupational Therapist Type: Therapy (PT/OT/Speech/Resp) Filed: 04/06/2018 11:39 AM Note Text: Occupational Therapy Treatment SERVICE DATE: 04/06/2018 SERVICE TIME: 0945 to 1010 ROOM: [place] [address] Recommended Discharge Disposition: Home OT Anticipated Discharge Needs: Physical Assist at Home Physical Assist at Home for: Cleaning;Laundry;Self Care;Shopping;Transpo rtation;Meals Recommended Discharge Equipment: Grab Bars-Shower;Grab Bars-Toilet;Hand Held Shower;Long Handled Sponge;Wheeled Walker;International Sourcing Manager;Shower Chair OT Recommendations to Nursing: To Bathroom for ADL?s /and or Toileting;With assist of 1 person;OOB for meals Equipment: Wheeled Walker OT 6 Clicks Score: 22 Precautions/Activity Restrictions: Fall Risk;Lines/Tubes/Drai ns;Cardiac Isolation Type: None ASSESSMENT: Patient Disposition at Start of Session: Supine in Bed;Call Mcdaniels in Reach;Bed Alarm;SCDs Patient Disposition at End of Session: OOB in Chair;Call Mcdaniels in Reach;Chair Alarm Tolerated Full Session Occupational Therapy Problem List: Impaired Self Care;Decreased Activity Tolerance Patient /Caregiver Goals: Go Home Goals for Plan of Care: Grooming with: Independent Upper Body Bathing with: Modified Independent Upper Body Dressing with: Modified Independent Lower Body Bathing with: Supervision Lower Body Dressing with: Modified Independent Toilet Hygiene with: Modified Independent Chair Transfer with: Modified Independent Toilet Transfer with: Modified Independent Tolerate (minutes of functional activity): 30 Functional Activity with: Modified Independent Kitchen Mobility Tasks with: Stand By Assistance Additional Goal 1: Pt will demo 4/4 energy conservation techniques during ADLs with min verbal cues Progress Toward Goals: Progressing as expected Rehab Potential: Good PLAN: Treatment Frequency (times per week): 1 (+1 PRN visit) Current admission Treatment Interventions: Education;Self Care / Home Management;Energy Conservation Training;Joint Mobility;Strengthenin g;Functional Mobility Training;Balance Training Plan of Care developed with: Patient TREATMENT INTERVENTIONS: Therapy Diagnosis: Reduced mobility-other;Decrea sed activities of daily living (ADL) Interventions Provided: Self Custodial Management (00967);Therapeutic Activity (10604) Therapeutic Activity (00979) Treatment Minutes: 10 1 unit Skilled Intervention(s): Instruction in sit to and from stand technique with proper hand placement and body positioning at edge of bed/chair Education with gentle AROM exercises for BUE, rest breaks provided. Encouraged to complete shoulder flex, elbow flex /ext and wrist flex and ext from chair level. Self Custodial Management (74586) Treatment Minutes: 15 1 unit Skilled Intervention(s): Education in cues for standing balance, discussed home DME needs Total Timed Code Treatment Minutes: 25 Total Treatment Time (minutes): 25 FUNCTIONAL G CODE: OT 6 Clicks Score: 22 (04/06/18 0945) Self Care Current Status (G8987): CJ (03/30/18 131) Self Care Goal Status (G8988): CI (03/30/18 131) Based on clinical assessment and the score on the 6 Clicks Functional Assessment Tool, the G code and corresponding severity modifiers are documented above. Physician signature certifies treatment plan of care established above for the period of 04/06/2018 through 04/20/2018. SUBJECTIVE: Current Hospital Course: Chart reviewed and no significant medical updates relevant to therapy were noted Reason for Occupational Therapy Consult: admitted with chest pain, dizziness, NSTEMI, acute hypoxic respiratory failure Relevant Past Medical History: acute [place], CAD, CABG, CKD, HTN, diverticulitis, psych d/o, HPL Patient Report: I am doing much better. Home Environment Patient Lives With: Spouse Assistance Available: PRN Entry To Home: Stairs;Without Rail Number Of Stairs Into Home: 4 Number Of Stairs To Bed/Bath: 12 Stairs to Bed/Bath with: No Rail Tub/Shower Type: tub shower Equipment Owned: Cane;Rollator;Shower Chair Prior Functional Level: Within Functional Limits Prior Functional Level Comments: patient ambulates indep without device, indep ADL's, shares IADL's with spouse; has 2 children in the area that are supportive; pt drives OBJECTIVE: Cognition/Communicati on Deficits Responsiveness: Alert;Awake Follows Commands: 2-step Commands Cueing to Follow Commands: (following commands adequately) CURRENT FUNCTIONAL STATUS: Current Activities of Daily Living Assist Level Feeding Modified Independent Grooming Set Up Bathing Upper Body Stand By Assistance Bathing Lower Body Minimal Assistance Dressing Upper Body Stand By Assistance Dressing Lower Body Minimal Assistance Toileting Minimal Assistance Instrumental Activities of Daily Living Assist Level Meal/Beverage Prep Light Cleaning Laundry Medication Management with Strategies Functional Mobility Assist Level Rolling Stand By Assistance Supine to Sit Stand By Assistance Sit to Supine Stand By Assistance Scooting Stand By Assistance Sit to Stand Contact Guard Assistance Stand to Sit Contact Guard Assistance Bed to Chair Contact Guard Assistance (took a few steps) Wheeled Walker Toilet/Commode Functional Mobility Contact Guard Assistance Wheeled Walker Balance: Static Sitting;Dynamic Sitting;Static Standing;Dynamic Standing Static Sitting Balance: Independent Dynamic Sitting Balance: Supervision Static Standing Balance: Stand By Assistance Dynamic Standing Balance: Contact Guard Assistance Activity Tolerance: Standing Activity Sitting Activity: ADLs, 5 minutes Standing Activity: functional mobility Standing Activity Tolerance (in minutes): 3 Please see discipline specific clinical documentation flowsheet for complete details for this therapy evaluation/treatment. SIGNATURE: RUFINO Mckeon/Shima PATIENT NAME: Sarina Lovett DATE: April 06, 2018 TIME: 11:37 AM [facility] XR CHEST 1V FRONTALon 2018 XR CHEST 1V FRONTAL * * *Final Report* * * DATE OF EXAM: Apr 06 2018 6:17AM FVX 5290 - XR CHEST 1V FRONTAL / PROCEDURE REASON: SOB, abn CXR, heart failure suspected * * * * Physician Interpretation * * * * EXAMINATION: CHEST RADIOGRAPH (SINGLE VIEW AP OR PA) CLINICAL HISTORY: SOB, abn CXR, heart failure suspected, MQ: XC1_5 Comparison: 04/05/2018 at 0550 hours RESULT: Lines, tubes, and devices: None. Lungs and pleura: There are diffuse bilateral airspace opacities demonstrating slight interval improvement. There is no apical pneumothorax. I cannot exclude a small effusions. Cardiomediastinal silhouette: Cardiomegaly in this patient status post sternotomy. Other: . IMPRESSION: Slight interval improvement diffuse bilateral airspace opacities. Armature Rewinder: PSCGrace Transcribe Date/Time: Apr 06 2018 7:00A Dictated by : KIRSTIE ANDRADE MD This examination was interpreted and the report reviewed and electronically signed by: KIRSTIE ANDRADE MD on Apr 06 2018 7:01AM EST [id number] [facility] ALLIED HEALTHon 04-05-2018 ALLIED HEALTH HNO ID: [id number] Author: Amanda Koenig (Rt) Service: Radiology Author Type: Commercial Management Accountant Type: Allied Health Filed: 04/05/2018 6:40 AM Note Text: Radiology Service Progress Note PATIENT NAME: Sarina Lovett DATE OF SERVICE: April 05, 2018 TIME: 6: AM PATIENT IDENTITY VERIFICATION COMPLETED USING TWO (2) METHODS: Patient confirmed name verbally and ID band matches.. PATIENT GENDER DATA: Female. status: : No status: NO. PATIENT RELEVANT IMPLANT DATA REVIEWED: Not Applicable RADIOLOGY DEPARTMENT: General X-ray: Exam(s) Completed: Chest X-Ray PERIPHERAL IV DATA: Not applicable SIGNED BY: RT Arya April 05, 2018 6:40 AM [facility] Basic Metabolic Panlon 04-05 Anion gap molar conc 11 mmol/L Normal 11-15 [facility] Comment on above: Performed By: #### P TT, NTBNP, HSTNT, CBCDIF, PT, CKCKMB, CMP #### [phone] Calcium mass conc 8.8 mg/dL Normal 8.5-10.5 [facility] Comment on above: Performed By: #### P TT, NTBNP, HSTNT, CBCDIF, PT, CKCKMB, CMP #### [place] [phone] Chloride molar conc 99 mmol/L Normal 98-110 [facility] Comment on above: Performed By: #### P TT, NTBNP, HSTNT, CBCDIF, PT, CKCKMB, CMP #### [place] [phone] CO2 molar conc 26 mmol/L Normal 23-32 [facility] Comment on above: Performed By: #### P TT, NTBNP, HSTNT, CBCDIF, PT, CKCKMB, CMP #### [place] [phone] Creatinine mass conc 1.77 mg/dL High 0.70-1.40 [facility] Comment on above: Performed By: #### P TT, NTBNP, HSTNT, CBCDIF, PT, CKCKMB, CMP #### [place] [id number] eGFR- Amer. 34 Low >60 [facility] Comment on above: Performed By: #### P TT, NTBNP, HSTNT, CBCDIF, PT, CKCKMB, CMP #### [place] [phone] GFR/1.73 sq M predicted among non-blacks MDRD vol rate/area (S/P/Bld) 28 . Low >60 [facility] Comment on above: Performed By: #### P TT, NTBNP, HSTNT, CBCDIF, PT, CKCKMB, CMP #### [place] [id number] Glucose mass conc 125 mg/dL High 65-100 [facility] Comment on above: Performed By: #### P TT, NTBNP, HSTNT, CBCDIF, PT, CKCKMB, CMP #### [place] [phone] Potassium molar conc 4.9 mmol/L Normal 3.5-5.0 [facility] Comment on above: Result Comment: Revi ewed Performed By: #### P TT, NTBNP, HSTNT, CBCDIF, PT, CKCKMB, CMP #### [place] [phone] Sodium molar conc 136 mmol/L Normal 132-148 [facility] Comment on above: Performed By: #### P TT, NTBNP, HSTNT, CBCDIF, PT, CKCKMB, CMP #### [place] [phone] Urea nitrogen mass conc 63 mg/dL High 8-25 [facility] Comment on above: Performed By: #### P TT, NTBNP, HSTNT, CBCDIF, PT, CKCKMB, CMP #### [place] [phone] CASE MANAGEMon 04-05-2018 CASE MANAGEM HNO ID: [id number] Author: Chiara Bethea (Lisw-S) Service: Case Management Author Type: Plastic Surgery Nurse Type: Care Mgt Progress Note Filed: 04/05/2018 2:25 PM Note Text: CARE MANAGEMENT PROGRESS NOTE SERVICE DATE: 04/05/2018 SERVICE TIME: 2:24 PM LOS: 12 days Needs Prior to Discharge: To Be Determined Pt now on dopamine gtt. Nephrology on consult. SW will remain available for needs. SIGNATURE: MITALI Cash PATIENT NAME: Sarina Lovett DATE: April 05, 2018 TIME: 2:24 PM PAGER/CONTACT #: [phone] Normal [facility] CBC and Differentialon 04-05 Abs Baso <0.03 Normal <0.11 [facility] Comment on above: Performed By: #### P TT, NTBNP, HSTNT, CBCDIF, PT, CKCKMB, CMP #### [place] [phone] Abs [place] 0.68 k/uL Normal <0.87 [facility] Comment on above: Performed By: #### P TT, NTBNP, HSTNT, CBCDIF, PT, CKCKMB, CMP #### [place] [id number] Abs Neut 6.23 k/uL Normal 1.45-7.50 [facility] Comment on above: Performed By: #### P TT, NTBNP, HSTNT, CBCDIF, PT, CKCKMB, CMP #### [address] Basophils/100 WBC (Bld) 0.2 % Normal [facility] Comment on above: Performed By: #### P TT, NTBNP, HSTNT, CBCDIF, PT, CKCKMB, CMP #### [place] [phone] DTYPE Auto Diff Normal [facility] Comment on above: Performed By: #### P TT, NTBNP, HSTNT, CBCDIF, PT, CKCKMB, CMP #### [place] [phone] Eosinophils #/vol (Bld) 0.20 10*3/uL Normal <0.46 [facility] Comment on above: Performed By: #### P TT, NTBNP, HSTNT, CBCDIF, PT, CKCKMB, CMP #### [address] Eosinophils/100 WBC (Bld) 2.5 % Normal [facility] Comment on above: Performed By: #### P TT, NTBNP, HSTNT, CBCDIF, PT, CKCKMB, CMP #### [place] [phone] Erythrocyte distribution width Ratio (RBC) 13.8 % Normal 11.5-15.0 [facility] Comment on above: Performed By: #### P TT, NTBNP, HSTNT, CBCDIF, PT, CKCKMB, CMP #### [place] [address] Hematocrit Volume Fraction (Bld) 28.3 % Low 36.0-46.0 [facility] Comment on above: Performed By: #### P TT, NTBNP, HSTNT, CBCDIF, PT, CKCKMB, CMP #### [place] [phone] Hemoglobin mass conc (Bld) 9.2 g/dL Low 11.5-15.5 [facility] Comment on above: Performed By: #### P TT, NTBNP, HSTNT, CBCDIF, PT, CKCKMB, CMP #### [place] [address] Lymphocytes #/vol (Bld) 0.90 10*3/uL Low 1.00-4.00 [facility] Comment on above: Performed By: #### P TT, NTBNP, HSTNT, CBCDIF, PT, CKCKMB, CMP #### [address] Lymphocytes/100 WBC (Bld) 11.2 % Normal [facility] Comment on above: Performed By: #### P TT, NTBNP, HSTNT, CBCDIF, PT, CKCKMB, CMP #### [place] [phone] MCH Entitic mass (RBC) 29.3 pG Normal 26.0-34.0 [facility] Comment on above: Performed By: #### P TT, NTBNP, HSTNT, CBCDIF, PT, CKCKMB, CMP #### [place] [phone] MCHC mass conc (RBC) 32.5 g/dL Normal 30.5-36.0 [facility] Comment on above: Performed By: #### P TT, NTBNP, HSTNT, CBCDIF, PT, CKCKMB, CMP #### [place] [address] MCV Entitic volume (RBC) 90.1 fL Normal 80.0-100.0 [facility] Comment on above: Performed By: #### P TT, NTBNP, HSTNT, CBCDIF, PT, CKCKMB, CMP #### [place] [address] Monocytes/100 WBC (Bld) 8.5 % Normal [facility] Comment on above: Performed By: #### P TT, NTBNP, HSTNT, CBCDIF, PT, CKCKMB, CMP #### [place] [address] Neutrophils/100 WBC (Bld) 77.6 % Normal [facility] Comment on above: Performed By: #### P TT, NTBNP, HSTNT, CBCDIF, PT, CKCKMB, CMP #### [place] [address] Platelet mean volume Entitic volume (Bld) 10.2 fL Normal 9.0-12.7 [facility] Comment on above: Performed By: #### P TT, NTBNP, HSTNT, CBCDIF, PT, CKCKMB, CMP #### [place] [address] Platelets #/vol (Bld) 241 10*3/uL Normal 150-400 [facility] Comment on above: Performed By: #### P TT, NTBNP, HSTNT, CBCDIF, PT, CKCKMB, CMP #### [place] [phone] RBC #/vol (Bld) 3.14 10*6/uL Low 3.90-5.20 [facility] Comment on above: Performed By: #### P TT, NTBNP, HSTNT, CBCDIF, PT, CKCKMB, CMP #### [facility] [address] [place] [id number] WBC #/vol (Bld) 8.03 10*3/uL Normal 3.70-11.00 [facility] Comment on above: Performed By: #### P TT, NTBNP, HSTNT, CBCDIF, PT, CKCKMB, CMP #### [facility] [address] [place] [phone] CNCOon 04-05-2018 CNCO Letter Text April 05, 2018 Sarina Lovett [address] [place] [id number] Dear Ms. Lovett, Thank you for choosing [facility] for your medical care. To help reduce healthcare costs, it is important for us to collect co-payments at the time of service. We are sorry we missed you when you were here on 03/24/2018. According to your insurance company, you are responsible for a co-payment of $1725.00. Please mail your check or money order, payable to [facility] along with the stub below, in the enclosed envelope. If you would like to pay with your credit card, please call [phone] for assistance or pay online at [employer] [facility] [employer]. Again, thank you for choosing [facility]. Sincerely, Mitchell Beck Acct Patient Truant Officer Please detach and return in the enclosed envelope. Pay online at [email or web address] Patient Name: Sarina Lovett EMPI Number: [id number] Date of Service: 03/24/2018 Co-Pay Due: 1725.00 Amount Enclosed: $ .__ Please make checks payable to [facility]. Normal [facility] CONSULT PROGon 04-05-2018 Protein mass conc HNO ID: [id number] Author: Clif Dhillon Service: Nephrology Author Type: Physician Type: Consult Progress Note Filed: 04/05/2018 4:02 PM Note Text: CONSULT PROGRESS NOTE SERVICE DATE: 04/05/2018 SERVICE TIME: 10.00 CONSULTING SERVICE: Nephology Subjective INTERVAL HPI: No acute events overnight Pt has no complains SOB improving Remains on 1-2 L oxygen Current hospital medications: furosemide 40 mg injection (LASIX) 40 mg INTRAVENOUS BID 9a/5p DOPamine iv infusion 800 mg/250 mL D5W 2.5 mcg/kg/min INTRAVENOUS CONTINUOUS milrinone 20 mg in D5W 100 mL (PRIMACOR) 0.375 mcg/kg/min INTRAVENOUS CONTINUOUS ciprofloxacin HCl 500 mg tab(s) (CIPRO) 500 mg ORAL DAILY metroNIDAZOLE 500 mg tab(s) (FLAGYL) 500 mg ORAL q 8 H hydrALAZINE 25 mg tab(s) (APRESOLINE) 25 mg ORAL q 8 H perflutren lipid microspheres 1.1 mg/mL 1.3 mL injection (DEFINITY) 1.3 mL INTRAVENOUS DIRECTED PRN carvedilol 3.125 mg tab(s) (COREG) 3.125 mg ORAL BID w MEALS heparin 5,000 Units injection 5,000 Units SUBCUTANEOUS q 12 H acetaminophen 500-1,000 mg tab(s) (TYLENOL) 500-1,000 mg ORAL q 6 H PRN oxyCODONE IR 5-10 mg tab(s) (ROXICODONE) 5-10 mg ORAL q 6 H PRN ipratropium-albuterol 3 mL nebulizer solution (DUONEB) 3 mL INHALATION q 4 H while awake atorvastatin 80 mg tab(s) (LIPITOR) 80 mg ORAL AT BEDTIME [MAR Hold due to Transfer] nitroglycerin sublingual 0.4 mg tab(s) (NITROQUICK) 0.4 mg SUBLINGUAL PRN prochlorperazine 5 mg injection (COMPAZINE) 5 mg INTRAVENOUS q 6 H PRN insulin lispro injection (rapid acting) (HumaLOG) SUBCUTANEOUS w MEALS AND HS aspirin 81 mg chewable tab(s) 81 mg ORAL DAILY sertraline 150 mg tab(s) (ZOLOFT) 150 mg ORAL DAILY clopidogrel 75 mg tab(s) (PLAVIX) 75 mg ORAL DAILY buPROPion XL 150 mg tab(s) (WELLBUTRIN XL) 150 mg ORAL DAILY NaCl 0.9% 3-5 mL 3-5 mL INTRAVENOUS q 12 H polyethylene glycol 3350 17 g packet (MIRALAX, GLYCOLAX) 17 g ORAL DAILY PRN bisacodyl 10 mg suppository (DULCOLAX) 10 mg RECTAL DAILY PRN melatonin 1 mg tab(s) 1 mg ORAL HS PRN dextrose 40 % 15 g 15 g ORAL PRN glucagon 1 mg injection (GLUCAGEN) 1 mg INTRAMUSCULAR PRN dextrose 50% in water 25 mL syringe 12.5 g INTRAVENOUS PRN pantoprazole DR 20 mg tab(s) (PROTONIX) 20 mg ORAL DAILY (6 AM) Objective PHYSICAL EXAM: Physical Exam Performed: GENERAL: Alert, no distress, cooperative NECK: No jugulovenous distention LUNGS: Minimal basal crepitations CARDIAC: Normal S1 and S2; no rubs, murmurs, or gallops ABDOMEN: Soft, nontender EXTREMITIES: No edema BP 155/51 Pulse 78 Temp (Src) 98.8 (Oral) Resp 18 Ht 5' 7.008 (1.70m) Wt 176 lb 12.9 oz (80.2kg) SpO2 95% BMI 27.69 kg/(m2). DATA: Diagnostic tests reviewed for today's visit: Most recent labs and imaging results. Impression/Recommenda tiely Sarina Lovett is a 73 year old female?with PMH of CAD (CABG in 2005, PCI to RCA in 2000 and 2015), aortic stenosis (s/p replacement in 2005 with #[address] [employer] Bioprosthetic valve), HTN, HLD, DM2 admitted for NSTEMI ? S/p cath 03/26 with 2 DAVID placed in SVG to RCA complicated with JULIETA treated with IVF. Patient later developed respiratory failure and fluid overload managed with CPAP/O2, and lasix. She was transferred to [facility] after improvement but re admitted to [facility] for worsening respiratory status in setting of acute diverticulitis, anemia, blood transfusion, and IVF. 1- JULIETA on CKD 3 Contrast induced nephropathy Renal US reviewed Improving Satisfactory urine output 2-Fluid overload. Can be switched to lasix PO -dosing per cardiology 3-Anemia. S/p 1 unit of blood. Ferritin 116 Consider IV iron as outpatient Germain De Los Santos MD April 05, 2018 2:28 PM I saw and evaluated the patient. Discussed with the resident and agree with resident's findings and plan as documented in the resident's note. 1. JULIETA sec to MATTIE - improving 2. CHF and volume load - on IV lasix per cardiology recommendations - might need right sided cardiac cath or pulm cath for hemodynamic monitoring - on dopamine drip today 3. 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 Loss of lean body mass/visual muscle wasting: no, stable weight continue to monitor. Admitting Diagnosis: Chest pain [R07.9] Present Diet Order: Gastrointestinal GISoft Is the patient having any pain that is interfering with oral/enteral intake? No Allergies: ALLERGIES Allergen Reactions - Statins [Other] Caused severe muscular weakness. - Sulfa (Sulfonamide * Caused severe generalized swelling. - Tape [Other] Severe skin reaction; needs to use paper tape Reason for Visit: Food preferences: pended Ensure Enlive three times daily providing 1050 kcal and 60 grams of protein Nutrient intake assessment: Current intake of meals: 25% Follow-up: lower appetite, will follow up and flip to Registered Dietitian if no improvement Patient concerns/Issues: no nausea or emesis. Bowels are moving. Experiencing reflux. Nursing Admission Assessment Malnutrition Score Tool: 0 Plan of Care: Recommendation Will pend supplements, and follow up, flip to Registered Dietitian if weight or intakes decrease. Discharge Plan: Will discharge on Physicians diet order. MNT Billing Type: Routine Care/15 min 1 unit SIGNATURE: OPHELIA GURDEEP, DTR PATIENT NAME: Sarina Lovett DATE: April 05, 2018 TIME: 3:00 PM PAGER: [phone] [facility] PROGRESSon 04-05-2018 Protein mass conc HNO ID: [id number] Author: Joy Browne Service: Cardiovascular Disease Author Type: Physician Type: Progress Notes Filed: 04/05/2018 5:51 PM Note Text: INPATIENT PROGRESS NOTES Patient Name: Sarina Lovett SERVICE DATE: 04/05/2018 SERVICE TIME: 5:50 PM PRIMARY SERVICE:Cardiology INTERVAL HPI: doing much better, less sob PERTINENT ROS: GENERAL: No weight loss, malaise or fevers., SEE HPI RESPIRATORY: Negative for cough, wheezing or shortness of breath. CARDIOVASCULAR: Negative for chest pain, leg swelling or palpitations. GI: Negative for abdominal discomfort, blood in stools or black stools or change in bowel habits MUSCULOSKELETAL: Negative for joint pain or swelling, back pain or muscle pain. All other reviewed and negative other than HPI. MEDICATIONS: Current hospital medications: furosemide 40 mg injection (LASIX) 40 mg INTRAVENOUS BID 9a/5p DOPamine iv infusion 800 mg/250 mL D5W 2.5 mcg/kg/min INTRAVENOUS CONTINUOUS milrinone 20 mg in D5W 100 mL (PRIMACOR) 0.375 mcg/kg/min INTRAVENOUS CONTINUOUS calcium carbonate 500 mg chewable tab(s) (TUMS) 500 mg ORAL BID PRN ciprofloxacin HCl 500 mg tab(s) (CIPRO) 500 mg ORAL DAILY metroNIDAZOLE 500 mg tab(s) (FLAGYL) 500 mg ORAL q 8 H hydrALAZINE 25 mg tab(s) (APRESOLINE) 25 mg ORAL q 8 H perflutren lipid microspheres 1.1 mg/mL 1.3 mL injection (DEFINITY) 1.3 mL INTRAVENOUS DIRECTED PRN carvedilol 3.125 mg tab(s) (COREG) 3.125 mg ORAL BID w MEALS heparin 5,000 Units injection 5,000 Units SUBCUTANEOUS q 12 H acetaminophen 500-1,000 mg tab(s) (TYLENOL) 500-1,000 mg ORAL q 6 H PRN oxyCODONE IR 5-10 mg tab(s) (ROXICODONE) 5-10 mg ORAL q 6 H PRN ipratropium-albuterol 3 mL nebulizer solution (DUONEB) 3 mL INHALATION q 4 H while awake atorvastatin 80 mg tab(s) (LIPITOR) 80 mg ORAL AT BEDTIME [MAR Hold due to Transfer] nitroglycerin sublingual 0.4 mg tab(s) (NITROQUICK) 0.4 mg SUBLINGUAL PRN prochlorperazine 5 mg injection (COMPAZINE) 5 mg INTRAVENOUS q 6 H PRN insulin lispro injection (rapid acting) (HumaLOG) SUBCUTANEOUS w MEALS AND HS aspirin 81 mg chewable tab(s) 81 mg ORAL DAILY sertraline 150 mg tab(s) (ZOLOFT) 150 mg ORAL DAILY clopidogrel 75 mg tab(s) (PLAVIX) 75 mg ORAL DAILY buPROPion XL 150 mg tab(s) (WELLBUTRIN XL) 150 mg ORAL DAILY NaCl 0.9% 3-5 mL 3-5 mL INTRAVENOUS q 12 H polyethylene glycol 3350 17 g packet (MIRALAX, GLYCOLAX) 17 g ORAL DAILY PRN bisacodyl 10 mg suppository (DULCOLAX) 10 mg RECTAL DAILY PRN melatonin 1 mg tab(s) 1 mg ORAL HS PRN dextrose 40 % 15 g 15 g ORAL PRN glucagon 1 mg injection (GLUCAGEN) 1 mg INTRAMUSCULAR PRN dextrose 50% in water 25 mL syringe 12.[address]AVENOUS PRN pantoprazole [address] 20 mg tab(s) (PROTONIX) 20 mg ORAL DAILY (6 AM) PHYSICAL EXAM: Patient Vitals for the past 24 hrs: BP Temp Temp src Pulse Resp SpO2 Weight 04/05/18 1400 155/51 - - 78 18 95 % - 04/05/18 1300 156/71 - - 82 17 96 % - 04/05/18 1200 145/63 - - 80 20 95 % - 04/05/18 1132 - 37.1 ?C (98.8 ?F) Oral - - - - 04/05/18 1100 (!) 146/43 - - 90 18 95 % - 04/05/18 1000 132/54 - - 86 18 95 % - 04/05/18 0900 132/57 - - 89 20 97 % - 04/05/18 0827 - - - 86 23 98 % - 04/05/18 0816 - - - 89 19 96 % - 04/05/18 0800 142/53 - - 88 19 96 % - 04/05/18 0730 - 36.9 ?C (98.5 ?F) Oral - - - - 04/05/18 0700 132/61 - - 78 - 98 % - 04/05/18 0600 122/95 - - 71 14 98 % 80.2 kg (176 lb 12.9 oz) 04/05/18 0500 140/63 - - 89 20 96 % - 04/05/18 0400 (!) 119/38 37 ?C (98.6 ?F) Oral (!) 56 21 90 % - 04/05/18 0348 - - - - 19 - - 04/05/18 0300 138/57 - - 83 18 100 % - 04/05/18 0200 126/56 - - 78 19 100 % - 04/05/18 0114 - - - 78 19 96 % - 04/05/18 0100 (!) 151/42 - - 61 19 96 % - 04/05/18 0000 (!) 150/41 37 ?C (98.6 ?F) Oral (!) 55 16 95 % - 04/04/18 2300 139/87 - - 73 20 97 % - 04/04/18 2200 150/56 - - 69 17 97 % - 04/04/18 2113 - - - 70 17 97 % - 04/04/18 2100 149/58 - - 76 19 98 % - 04/04/18 2000 (!) 134/49 37 ?C (98.6 ?F) Oral 82 27 98 % - 04/04/18 1900 (!) 140/49 - - 67 18 97 % - 04/04/18 1800 135/61 - - 69 15 98 % - Body mass index is 27.69 kg/m?. GENERAL: healthy, alert, no distress, cooperative SKIN: Skin color, texture, turgor normal. No rashes or lesions. NECK: no jugulovenous distention, no carotid bruits, carotid pulse normal contour, supple LUNGS: Lungs clear to auscultation. Good diaphragmatic excursion. CARDIAC: normal S1 and S2; no rubs, murmurs, or gallops ABDOMEN: Abdomen soft, non-tender. BS normal. No masses or organomegaly. EXTREMITIES: Extremities normal. No deformities, edema, clubbing or skin discoloration. DATA: Diagnostic tests reviewed for today's visit: CBC: Recent Labs 02/06/19 0245 WBC 8.03 RBC 3.14* HB 9.2* HCT 28.3* PLT 241 MCV 90.1 MCH 29.3 MPV 10.2 Coags: No results for input(s): INR, APTT in the last 24 hours. Invalid input(s): PT BMP: Recent Labs 04/05/18244 NA 136 K 4.9 CHLOR 99 CO2 26 BUN 63* CREAT 1.77* GLUC 125* CMP: Recent Labs 04/05/18244 NA 136 K 4.9 CHLOR 99 CO2 26 BUN 63* CREAT 1.77* GLUC 125* CA 8.8 MG 2.1 ANION 11 Cardiac Enzymes: No results for input(s): CK, MB, CKMB, TROPT in the last 24 hours. ASSESSMENT AND PLAN: (R07.9) Chest pain, unspecified type (primary encounter diagnosis) (N17.9) JULIETA (acute kidney injury) ([facility]) (E87.5) Hyperkalemia (R74.8) Elevated troponin (I21.4) NSTEMI (non-ST elevated myocardial infarction) ([facility]) (I20.0) Unstable angina pectoris ([facility]) (I25.110) Atherosclerosis of coronary artery of nez perce heart with unstable angina pectoris, unspecified vessel or lesion type ([facility]) (I10) Essential hypertension, benign (I16.1) Hypertensive emergency (F99) Psychiatric disorder (Z72.0) Tobacco abuse (I50.9) Acute decompensated heart failure ([facility]) (J96.01) Acute respiratory failure with hypoxia ([facility]) (N17.9, N18.3) Acute renal failure superimposed on stage 3 chronic kidney disease, unspecified acute renal failure type ([facility]) (F17.200) Nicotine use disorder Continue present treatment Dc milrinone Add dopamine renal dose Continue with iv lasix Repeat cxr SIGNATURE: Joy Browne MD DATE: April 05, 2018 TIME: 5:50 PM Normal [facility] Protein mass conc HNO ID: [id number] Author: Jose Jack Service: Pulmonary Disease Author Type: Physician Type: Progress Notes Filed: 04/05/2018 3:59 PM Note Text: Pulmonary/Critical Care Progress Note PATIENT NAME: Sarina Lovett DATE of SERVICE: April 05, 2018 TIME of SERVICE: 3:57 PM Admitting Physician: Andree Peters Attending Physician: Mary Thao S: Feels better with improved SOB and cough without significant sputum production. Current hospital medications: furosemide 40 mg injection (LASIX) 40 mg INTRAVENOUS BID 9a/5p DOPamine iv infusion 800 mg/250 mL D5W 2.5 mcg/kg/min INTRAVENOUS CONTINUOUS milrinone 20 mg in D5W 100 mL (PRIMACOR) 0.375 mcg/kg/min INTRAVENOUS CONTINUOUS ciprofloxacin HCl 500 mg tab(s) (CIPRO) 500 mg ORAL DAILY metroNIDAZOLE 500 mg tab(s) (FLAGYL) 500 mg ORAL q 8 H hydrALAZINE 25 mg tab(s) (APRESOLINE) 25 mg ORAL q 8 H perflutren lipid microspheres 1.1 mg/mL 1.3 mL injection (DEFINITY) 1.3 mL INTRAVENOUS DIRECTED PRN carvedilol 3.125 mg tab(s) (COREG) 3.125 mg ORAL BID w MEALS heparin 5,000 Units injection 5,000 Units SUBCUTANEOUS q 12 H acetaminophen 500-1,000 mg tab(s) (TYLENOL) 500-1,000 mg ORAL q 6 H PRN oxyCODONE IR 5-10 mg tab(s) (ROXICODONE) 5-10 mg ORAL q 6 H PRN ipratropium-albuterol 3 mL nebulizer solution (DUONEB) 3 mL INHALATION q 4 H while awake atorvastatin 80 mg tab(s) (LIPITOR) 80 mg ORAL AT BEDTIME [MAR Hold due to Transfer] nitroglycerin sublingual 0.4 mg tab(s) (NITROQUICK) 0.4 mg SUBLINGUAL PRN prochlorperazine 5 mg injection (COMPAZINE) 5 mg INTRAVENOUS q 6 H PRN insulin lispro injection (rapid acting) (HumaLOG) SUBCUTANEOUS w MEALS AND HS aspirin 81 mg chewable tab(s) 81 mg ORAL DAILY sertraline 150 mg tab(s) (ZOLOFT) 150 mg ORAL DAILY clopidogrel 75 mg tab(s) (PLAVIX) 75 mg ORAL DAILY buPROPion XL 150 mg tab(s) (WELLBUTRIN XL) 150 mg ORAL DAILY NaCl 0.9% 3-5 mL 3-5 mL INTRAVENOUS q 12 H polyethylene glycol 3350 17 g packet (MIRALAX, GLYCOLAX) 17 g ORAL DAILY PRN bisacodyl 10 mg suppository (DULCOLAX) 10 mg RECTAL DAILY PRN melatonin 1 mg tab(s) 1 mg ORAL HS PRN dextrose 40 % 15 g 15 g ORAL PRN glucagon 1 mg injection (GLUCAGEN) 1 mg INTRAMUSCULAR PRN dextrose 50% in water 25 mL syringe 12.[address]AVENOUS PRN pantoprazole [address] 20 mg tab(s) (PROTONIX) 20 mg ORAL DAILY (6 AM) O: PHYSICAL EXAMINATION: Blood pressure 155/51, pulse 78, temperature 37.1 ?C (98.8 ?F), temperature source Oral, resp. rate 18, height 170.2 cm (5' 7.01 ), weight 80.2 kg (176 lb 12.9 oz), SpO2 95 %., Body mass index is 27.69 kg/m?. GENERAL: Cooperative, pleasant, in no acute distress. NECK: no jugulovenous distention, supple LUNGS: Slightly decreased breath sounds to both lung aguilar with soft bibasilar crackles. LABORATORY: CBC, Coags, BMP, Mg, Phos Recent Labs 04/05/18 0245 04/04/18 1555 04/04/18 0401 04/03/18 2209 04/03/18 0354 WBC 8.03 -- 6.50 6.33 6.77 HB 9.2* -- 8.6* 8.5* 7.5* HCT 28.3* -- 25.8* 26.1* 23.0* PLT 241 -- 221 210 207 NA 136 137 137 -- 138 137 K 4.9 3.9 3.4* -- 3.8 3.9 CHLOR 99 96* 94* -- 97* 97* CO2 26 28 27 -- 24 23 BUN 63* 67* 68* -- 75* 75* CREAT 1.77* 1.84* 1.84* -- 2.22* 2.21* GLUC 125* 167* 135* -- 105* 107* CA 8.8 8.9 8.7 -- 9.1 9.2 MG 2.1 -- 2.3 -- -- P -- -- -- -- 5.2* Liver Function, Amylase, AND Lipase Recent Labs 04/03/18 0354 ALB 3.2* Cardiac Enzymes Recent Labs 04/02/18 1825 TROPT 9.390* IMAGING STUDIES: Chest x-ray was reviewed and showed persistent bilateral interstitial infiltrates ASSESSMENT AND PLAN: Acute hypoxic respiratory failure: Likely secondary to pulmonary edema secondary to acute non-Q-wave WI. Clinically and radiographically appears to be slowly improving with current treatment We will continue with CHF management per primary and cardiology team. Continue with CPAP at nighttime for now and has needed during the day. SIGNATURE: Jose Jack MD DATE: April 05, 2018 TIME: 3:57 PM This note was partially created using voice recognition software and is inherently subject to errors including those of syntax and sound-alike substitutions which may escape proofreading. In such instances, original meaning may be extrapolated by contextual derivation. ?? Normal [facility] Protein mass conc HNO ID: [id number] Author: Kinsey Dumas MD Service: Hospital Medicine Author Type: Resident Type: Progress Notes Filed: 04/05/2018 9:42 AM Note Text: Attestation signed by Mary Thao at 04/05/2018 11:10 AM IM ATTENDING NOTES: ? I have seen and evaluated the patient and discussed the case with the resident physician. ?I agree with the assessment and plan as documented in the resident?s note. Discussed with dr. Browne, continue lasix IV and Milrinone IV ? Mary Thao MD 04/05/18 [facility] PROGRESS NOTE NAME: Sarina Lovett SERVICE DATE: 04/05/2018 SERVICE TIME: 9:37 AM ASSESSMENT AND PLAN Sarina Lovett is a 73 year old female with PMH of CAD (CABG in 2005, PCI to RCA in 2000 and 2015), aortic stenosis (s/p replacement in 2005 with #[address] [employer] Bioprosthetic valve), HTN, HLD, DM?who presented with chest pain and elevated troponin, found to have NSTEMI. Cath done on 03/26 resulting in 2 DAVID in SVG to RCA. Patient transferred to [facility] on 03/29, back to [facility] on 04/02 for increased SOB and significantly elevated troponin. Acute hypoxic respiratory failure Likely COPD; history of tobacco abuse Suspect worsening respiratory status due to CHF and possible underlying COPD. Required CPAP again on 04/02 and was transferred back to [facility]. CXR with significant pulmonary edema R>L, restarted on lasix. Back on NC 2L on 04/03. 2V CXR improved on 04/04/2018, no evidence of pneumonia. - supplemental O2 PRN; CPAP PRN for worsening respiratory status - incentive spirometry - duonebs q4h while awake - pulmonology consulted, appreciate input ? Acute on chronic HFrEF Echo on 03/25 with EF50% and grade I diastolic dysfunction. Repeat echo on 04/02 with EF56%, no significant change despite worsening clinical status. Net negative 2L on 04/02 after 40mg IV lasix with improved respiratory status. - continue coreg 3.125mg BID, ACEi on hold for JULIETA - IV lasix 40mg BID - started on IV milrinone 04/03/[address] Browne, will continue today - started on IV dopamine 04/05/[address] Browne - cardiology following, appreciate input ? NSTEMI (non-ST elevated myocardial infarction) (HCC) POA: Yes Chest pain POA: Yes Coronary atherosclerosis POA: Yes Patient with significant CAD history, presented with chest pain and elevated troponin, 2 DAVID in SVG to RCA on 03/26. Started on asa/plavix. Chest pain has resolved. - continue plavix / asa, lipitor 80mg daily, coreg 3.125mg BID ? Elevated Troponin Patient presented with NSTEMI, Trop T up to 2.16 prior to cath. Rechecked trop with worsening respiratory status on 04/02 and had increased to 10.09. Per cardiology, thought to be related to post-PCI vs pulmonary edema. Patient without chest pain. Nitro drip stopped. ? Spleen lesions On CT, multiple lesions were seen which were new / changed from prior exams (did see splenic cysts on prior exams). - recommend MRI to evaluate further, would suggest as outpatient or once clinical status improves ? Sigmoid Diverticulitis Patient with history of diverticulitis, developed worsening abd pain and diarrhea while admitted. C diff negative. CT abd with sigmoid diverticulitis - on cipro, flagyl PO (day 6 today) - GI soft diet - per GI, needs low fiber diet x2 weeks, then high fiber diet - will need colonoscopy in 8 weeks ? Essential hypertension, benign POA: Yes Presented with SBP in 200s, improved during admission. BP borderline low, decreased coreg and improved on 04/03. ? - coreg 3.125mg BID - hydralazine 25mg TID ? Contrast dye induced nephropathy POA: No Acute renal failure superimposed on stage 3 chronic kidney disease (HCC) POA: No Baseline Cr 1.3-1.5, increased during admission to max of 3.6 thought to be due to contrast as well as hypotension. Improving / stable to 2.2 on 04/03/2018. Renal ultrasound without hydronephrosis. Cr continues to improve during admission. - sodium bicarb 325mg TID - nephrology following, appreciate input - continue IV lasix today, consider PO tomorrow ? Anemia Patient with chronic anemia, baseline Hgb 9-11 range; normocytic. Ferritin was normal, thought to be anemia of chronic disease. Patient without melena or hematochezia. Hgb 7.5 on 04/03, given 1U pRBCs with appropriate response. - continue to monitor - will need outpatient colonoscopy as above ? T2DM ? On glimepiride 1mg BID at home, last A1c 9.3% in 08/2016 at [facility]. Repeat A1c on admission 6.0%. - SSI1 - holding home glimepiride due to JULIETA ? Tobacco abuse POA: Yes 50 pack-year history, encourage cessation. ? Psychiatric disorder POA: Yes Patient with history of depression, significant social stressors. - continue zoloft 150mg daily, wellbutrin 150mg daily ? Mild protein-calorie malnutrition Albumin 3.2. Encourage PO intake, diet being advanced. VTE Prophylaxis - subQ heparin 5000U BID Dispo - continue to monitor in [facility] SUBJECTIVE INTERVAL HPI: Ms. Lovett feels well this morning, better than she has in at least a few days. She denies chest pain, palpitations, or lightheadedness. Her breathing is better than it was. MEDICATIONS: Reviewed OBJECTIVE VITAL SIGNS (last 24hrs min/max): Temp Av ?C (98.6 ?F) Min: 37 ?C (98.6 ?F) Max: 37.1 ?C (98.8 ?F) Pulse Av.4 Min: 55 Max: 89 Cuff BP Min: 105/45 Max: 151/42 Pain Score: Pt. 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) PHYSICAL EXAM: General: Alert, no distress, cooperative Lungs: + bibasilar crackles, improved from previous exam but still present Cardiac: NL S1 and S2, + systolic murmur Abdomen: Non-tender, BS normal Extremities: No edema or skin discoloration Neuro: Grossly normal cognition, motor function DATA: Diagnostic tests reviewed for today's visit: Most recent labs Most recent EKG Most recent image Kinsey Dumas MD Family Medicine PGY2 April 05, 2018 [facility] THERAPY NTon 04-05-2018 THERAPY NT HNO ID: [id number] Author: Madeline (Poultry Trimmer) LALO Paredes Service: Respiratory Therapy Author Type: Respiratory Therapist Type: Therapy (PT/OT/Speech/Resp) Filed: 04/05/2018 3:52 AM Note Text: Pt wanted to come off cpap. RN notified. Will continue to monitor and intervene if necessary. [facility] XR CHEST 1V FRONTAL PORTon 0 04-05-2018 XR CHEST 1V FRONTAL PORT * * *Final Report* * * DATE OF EXAM: Apr 05 2018 6:31AM [id number] - XR CHEST 1V FRONTAL PORT / PROCEDURE REASON: Heart failure known, no angina, CAD known/suspected, ischemic etiology eval * * * * Physician Interpretation * * * * EXAMINATION: CHEST RADIOGRAPH (PORTABLE SINGLE VIEW AP) Exam Date/Time: 04/05/2018 6:31 AM CLINICAL HISTORY: Heart failure known, no angina, CAD known/suspected, ischemic etiology eval, Pleural effusion, MQ: XCPR_5 Comparison: 1 day prior RESULT: Lines, tubes, and devices: None. Lungs and pleura: Persistent right perihilar and upper lobe airspace opacification not significantly changed. No pneumothorax. Cardiomediastinal silhouette: Stable cardiomediastinal silhouette. Other: . IMPRESSION: As above Armature Rewinder: PSCB Transcribe Date/Time: Apr 05 2018 7:54A Dictated by : SLICK DUNN MD This examination was interpreted and the report reviewed and electronically signed by: SLICK DUNN MD on Apr 05 2018 7:55AM EST [id number] [facility] ALLIED HEALTHon 04-04-2018 ALLIED HEALTH HNO ID: [id number] Author: Deanna (Rt) Amanda Reyes Service: (none) Author Type: Commercial Management Accountant Type: Allied Health Filed: 04/04/2018 11:12 AM Note Text: Radiology Service Progress Note PATIENT NAME: Sarina Lovett DATE OF SERVICE: April 04, 2018 TIME: 11:11 AM PATIENT IDENTITY VERIFICATION COMPLETED USING TWO (2) METHODS: Patient confirmed name verbally and ID band matches.. PATIENT GENDER DATA: Female. status: : No status: NO. PATIENT RELEVANT IMPLANT DATA REVIEWED: Not Applicable RADIOLOGY DEPARTMENT: General X-ray: Exam(s) Completed: Chest X-Ray PERIPHERAL IV DATA: Not applicable SIGNED BY: RT Delma April 04, 2018 11:11 AM [facility] Basic Metabolic Panlon 04-04 Anion gap molar conc 13 mmol/L Normal 9-18 [facility] Comment on above: Performed By: #### P TT, NTBNP, HSTNT, CBCDIF, PT, CKCKMB, CMP #### [place] [phone] Calcium mass conc 8.9 mg/dL Normal 8.5-10.5 [facility] Comment on above: Performed By: #### P TT, NTBNP, HSTNT, CBCDIF, PT, CKCKMB, CMP #### [place] [address] Chloride molar conc 96 mmol/L Low 98-110 [facility] Comment on above: Performed By: #### P TT, NTBNP, HSTNT, CBCDIF, PT, CKCKMB, CMP #### [place] [id number] CO2 molar conc 28 mmol/L Normal 23-32 [facility] Comment on above: Performed By: #### P TT, NTBNP, HSTNT, CBCDIF, PT, CKCKMB, CMP #### [place] [id number] Creatinine mass conc 1.84 mg/dL High 0.70-1.40 [facility] Comment on above: Performed By: #### P TT, NTBNP, HSTNT, CBCDIF, PT, CKCKMB, CMP #### [place] [id number] eGFR- Amer. 33 Low >60 [facility] Comment on above: Performed By: #### P TT, NTBNP, HSTNT, CBCDIF, PT, CKCKMB, CMP #### [place] [phone] GFR/1.73 sq M predicted among non-blacks MDRD vol rate/area (S/P/Bld) 27 . Low >60 [facility] Comment on above: Performed By: #### P TT, NTBNP, HSTNT, CBCDIF, PT, CKCKMB, CMP #### [place] [id number] Glucose mass conc 167 mg/dL High 65-100 [facility] Comment on above: Performed By: #### P TT, NTBNP, HSTNT, CBCDIF, PT, CKCKMB, CMP #### [place] [id number] Potassium molar conc 3.9 mmol/L Normal 3.5-5.0 [facility] Comment on above: Performed By: #### P TT, NTBNP, HSTNT, CBCDIF, PT, CKCKMB, CMP #### [place] [id number] Sodium molar conc 137 mmol/L Normal 132-148 [facility] Comment on above: Performed By: #### P TT, NTBNP, HSTNT, CBCDIF, PT, CKCKMB, CMP #### [place] [phone] Urea nitrogen mass conc 67 mg/dL High 8-25 [facility] Comment on above: Performed By: #### P TT, NTBNP, HSTNT, CBCDIF, PT, CKCKMB, CMP #### [phone] Anion gap molar conc 16 mmol/L Normal 9-18 [facility] Comment on above: Performed By: #### P TT, NTBNP, HSTNT, CBCDIF, PT, CKCKMB, CMP #### [place] [id number] Calcium mass conc 8.7 mg/dL Normal 8.5-10.5 [facility] Comment on above: Performed By: #### P TT, NTBNP, HSTNT, CBCDIF, PT, CKCKMB, CMP #### [place] [phone] Chloride molar conc 94 mmol/L Low 98-110 [facility] Comment on above: Performed By: #### P TT, NTBNP, HSTNT, CBCDIF, PT, CKCKMB, CMP #### [phone] CO2 molar conc 27 mmol/L Normal 23-32 [facility] Comment on above: Performed By: #### P TT, NTBNP, HSTNT, CBCDIF, PT, CKCKMB, CMP #### [phone] Creatinine mass conc 1.84 mg/dL High 0.70-1.40 [facility] Comment on above: Performed By: #### P TT, NTBNP, HSTNT, CBCDIF, PT, CKCKMB, CMP #### [place] [phone] eGFR- Amer. 33 Low >60 [facility] Comment on above: Performed By: #### P TT, NTBNP, HSTNT, CBCDIF, PT, CKCKMB, CMP #### [place] [phone] GFR/1.73 sq M predicted among non-blacks MDRD vol rate/area (S/P/Bld) 27 . Low >60 [facility] Comment on above: Performed By: #### P TT, NTBNP, HSTNT, CBCDIF, PT, CKCKMB, CMP #### [place] [phone] Glucose mass conc 135 mg/dL High 65-100 [facility] Comment on above: Performed By: #### P TT, NTBNP, HSTNT, CBCDIF, PT, CKCKMB, CMP #### [place] [phone] Potassium molar conc 3.4 mmol/L Low 3.5-5.0 [facility] Comment on above: Performed By: #### P TT, NTBNP, HSTNT, CBCDIF, PT, CKCKMB, CMP #### [place] [phone] Sodium molar conc 137 mmol/L Normal 132-148 [facility] Comment on above: Performed By: #### P TT, NTBNP, HSTNT, CBCDIF, PT, CKCKMB, CMP #### [place] [phone] Urea nitrogen mass conc 68 mg/dL High 8-25 [facility] Comment on above: Performed By: #### P TT, NTBNP, HSTNT, CBCDIF, PT, CKCKMB, CMP #### [place] [phone] CASE MANAGEMon 04-04-2018 CASE MANAGEM HNO ID: [id number] Author: Chiara Escalante-SJass Bethea Service: Case Management Author Type: Plastic Surgery Nurse Type: Care Mgt Progress Note Filed: 04/04/2018 12:15 PM Note Text: CARE MANAGEMENT PROGRESS NOTE SERVICE DATE: 04/04/2018 SERVICE TIME: 12:14 PM LOS: 11 days Needs Prior to Discharge: To Be Determined Pt on IV Lasix and Milrinone gtt. Skilled needs at d/c TBD. SIGNATURE: MITALI Cash PATIENT NAME: Sarina Lovett DATE: April 04, 2018 TIME: 12:14 PM PAGER/CONTACT #: [phone] Normal [facility] CBCon 04-04-2018 Erythrocyte distribution width Ratio (RBC) 13.5 % Normal 11.5-15.0 [facility] Comment on above: Performed By: #### P TT, NTBNP, HSTNT, CBCDIF, PT, CKCKMB, CMP #### [place] [address] Hematocrit Volume Fraction (Bld) 26.1 % Low 36.0-46.0 [facility] Comment on above: Performed By: #### P TT, NTBNP, HSTNT, CBCDIF, PT, CKCKMB, CMP #### [place] [address] Hemoglobin mass conc (Bld) 8.5 g/dL Low 11.5-15.5 [facility] Comment on above: Performed By: #### P TT, NTBNP, HSTNT, CBCDIF, PT, CKCKMB, CMP #### [place] [address] MCH Entitic mass (RBC) 28.7 pG Normal 26.0-34.0 [facility] Comment on above: Performed By: #### P TT, NTBNP, HSTNT, CBCDIF, PT, CKCKMB, CMP #### [place] [address] MCHC mass conc (RBC) 32.6 g/dL Normal 30.5-36.0 [facility] Comment on above: Performed By: #### P TT, NTBNP, HSTNT, CBCDIF, PT, CKCKMB, CMP #### [phone] MCV Entitic volume (RBC) 88.2 fL Normal 80.0-100.0 [facility] Comment on above: Performed By: #### P TT, NTBNP, HSTNT, CBCDIF, PT, CKCKMB, CMP #### [place] [phone] Platelet mean volume Entitic volume (Bld) 10.4 fL Normal 9.0-12.7 [facility] Comment on above: Performed By: #### P TT, NTBNP, HSTNT, CBCDIF, PT, CKCKMB, CMP #### [place] [phone] Platelets #/vol (Bld) 210 10*3/uL Normal 150-400 [facility] Comment on above: Performed By: #### P TT, NTBNP, HSTNT, CBCDIF, PT, CKCKMB, CMP #### [place] [phone] RBC #/vol (Bld) 2.96 10*6/uL Low 3.90-5.20 [facility] Comment on above: Performed By: #### P TT, NTBNP, HSTNT, CBCDIF, PT, CKCKMB, CMP #### [place] [phone] WBC #/vol (Bld) 6.33 10*3/uL Normal 3.70-11.00 [facility] Comment on above: Performed By: #### P TT, NTBNP, HSTNT, CBCDIF, PT, CKCKMB, CMP #### [place] [id number] CBC and Differentialon 04-04 Abs Baso <0.03 Normal <0.11 [facility] Comment on above: Performed By: #### P TT, NTBNP, HSTNT, CBCDIF, PT, CKCKMB, CMP #### [place] [address] Abs [place] 0.53 k/uL Normal <0.87 [facility] Comment on above: Performed By: #### P TT, NTBNP, HSTNT, CBCDIF, PT, CKCKMB, CMP #### [place] [address] Abs Neut 5.13 k/uL Normal 1.45-7.50 [facility] Comment on above: Performed By: #### P TT, NTBNP, HSTNT, CBCDIF, PT, CKCKMB, CMP #### [place] [address] Basophils/100 WBC (Bld) 0.2 % [facility] Comment on above: Performed By: #### P TT, NTBNP, HSTNT, CBCDIF, PT, CKCKMB, CMP #### [place] [address] DTYPE Auto Diff Normal [facility] Comment on above: Performed By: #### P TT, NTBNP, HSTNT, CBCDIF, PT, CKCKMB, CMP #### [place] [address] Eosinophils #/vol (Bld) 0.17 10*3/uL Normal <0.46 [facility] Comment on above: Performed By: #### P TT, NTBNP, HSTNT, CBCDIF, PT, CKCKMB, CMP #### [place] [address] Eosinophils/100 WBC (Bld) 2.6 % Normal [facility] Comment on above: Performed By: #### P TT, NTBNP, HSTNT, CBCDIF, PT, CKCKMB, CMP #### [place] [id number] Erythrocyte distribution width Ratio (RBC) 13.6 % Normal 11.5-15.0 [facility] Comment on above: Performed By: #### P TT, NTBNP, HSTNT, CBCDIF, PT, CKCKMB, CMP #### [place] [address] Hematocrit Volume Fraction (Bld) 25.8 % Low 36.0-46.0 [facility] Comment on above: Performed By: #### P TT, NTBNP, HSTNT, CBCDIF, PT, CKCKMB, CMP #### [place] [address] Hemoglobin mass conc (Bld) 8.6 g/dL Low 11.5-15.5 [facility] Comment on above: Performed By: #### P TT, NTBNP, HSTNT, CBCDIF, PT, CKCKMB, CMP #### [place] [address] Lymphocytes #/vol (Bld) 0.66 10*3/uL Low 1.00-4.00 [facility] Comment on above: Performed By: #### P TT, NTBNP, HSTNT, CBCDIF, PT, CKCKMB, CMP #### [place] [address] Lymphocytes/100 WBC (Bld) 10.2 % Normal [facility] Comment on above: Performed By: #### P TT, NTBNP, HSTNT, CBCDIF, PT, CKCKMB, CMP #### [place] [phone] MCH Entitic mass (RBC) 29.0 pG Normal 26.0-34.0 [facility] Comment on above: Performed By: #### P TT, NTBNP, HSTNT, CBCDIF, PT, CKCKMB, CMP #### [place] [phone] MCHC mass conc (RBC) 33.3 g/dL Normal 30.5-36.0 [facility] Comment on above: Performed By: #### P TT, NTBNP, HSTNT, CBCDIF, PT, CKCKMB, CMP #### [place] [phone] MCV Entitic volume (RBC) 86.9 fL Normal 80.0-100.0 [facility] Comment on above: Performed By: #### P TT, NTBNP, HSTNT, CBCDIF, PT, CKCKMB, CMP #### [place] [address] Monocytes/100 WBC (Bld) 8.2 % Normal [facility] Comment on above: Performed By: #### P TT, NTBNP, HSTNT, CBCDIF, PT, CKCKMB, CMP #### [place] [address] Neutrophils/100 WBC (Bld) 78.8 % Normal [facility] Comment on above: Performed By: #### P TT, NTBNP, HSTNT, CBCDIF, PT, CKCKMB, CMP #### [place] [id number] Platelet mean volume Entitic volume (Bld) 10.3 fL Normal 9.0-12.7 [facility] Comment on above: Performed By: #### P TT, NTBNP, HSTNT, CBCDIF, PT, CKCKMB, CMP #### [place] [phone] Platelets #/vol (Bld) 221 10*3/uL Normal 150-400 [facility] Comment on above: Performed By: #### P TT, NTBNP, HSTNT, CBCDIF, PT, CKCKMB, CMP #### [place] [phone] RBC #/vol (Bld) 2.97 10*6/uL Low 3.90-5.20 [facility] Comment on above: Performed By: #### P TT, NTBNP, HSTNT, CBCDIF, PT, CKCKMB, CMP #### [facility] [address] [place] [address] WBC #/vol (Bld) 6.50 10*3/uL Normal 3.70-11.00 [facility] Comment on above: Performed By: #### P TT, NTBNP, HSTNT, CBCDIF, PT, CKCKMB, CMP #### [facility] [address] [place] [address] CONSULT PROGon 04-04-2018 Protein mass conc HNO ID: [id number] Author: Clif Dhillon Service: Nephrology Author Type: Physician Type: Consult Progress Note Filed: 04/04/2018 3:15 PM Note Text: CONSULT PROGRESS NOTE SERVICE DATE: 04/04/2018 SERVICE TIME: 10.00 CONSULTING SERVICE: Nephology Subjective INTERVAL HPI: No acute events overnight SOB improved. On 1 L nasal cannula Current hospital medications: magnesium oxide 800 mg tab(s) (MAG-OX) 800 mg ORAL BID ciprofloxacin HCl 500 mg tab(s) (CIPRO) 500 mg ORAL DAILY metroNIDAZOLE 500 mg tab(s) (FLAGYL) 500 mg ORAL q 8 H milrinone 20 mg in D5W 100 mL (PRIMACOR) 0.25 mcg/kg/min INTRAVENOUS CONTINUOUS hydrALAZINE 25 mg tab(s) (APRESOLINE) 25 mg ORAL q 8 H perflutren lipid microspheres 1.1 mg/mL 1.3 mL injection (DEFINITY) 1.3 mL INTRAVENOUS DIRECTED PRN furosemide 40 mg injection (LASIX) 40 mg INTRAVENOUS DAILY sodium bicarbonate 325 mg tab(s) 325 mg ORAL TID carvedilol 3.125 mg tab(s) (COREG) 3.125 mg ORAL BID w MEALS heparin 5,000 Units injection 5,000 Units SUBCUTANEOUS q 12 H acetaminophen 500-1,000 mg tab(s) (TYLENOL) 500-1,000 mg ORAL q 6 H PRN oxyCODONE IR 5-10 mg tab(s) (ROXICODONE) 5-10 mg ORAL q 6 H PRN ipratropium-albuterol 3 mL nebulizer solution (DUONEB) 3 mL INHALATION q 4 H while awake atorvastatin 80 mg tab(s) (LIPITOR) 80 mg ORAL AT BEDTIME [MAR Hold due to Transfer] nitroglycerin sublingual 0.4 mg tab(s) (NITROQUICK) 0.4 mg SUBLINGUAL PRN prochlorperazine 5 mg injection (COMPAZINE) 5 mg INTRAVENOUS q 6 H PRN insulin lispro injection (rapid acting) (HumaLOG) SUBCUTANEOUS w MEALS AND HS aspirin 81 mg chewable tab(s) 81 mg ORAL DAILY sertraline 150 mg tab(s) (ZOLOFT) 150 mg ORAL DAILY clopidogrel 75 mg tab(s) (PLAVIX) 75 mg ORAL DAILY buPROPion XL 150 mg tab(s) (WELLBUTRIN XL) 150 mg ORAL DAILY NaCl 0.9% 3-5 mL 3-5 mL INTRAVENOUS q 12 H polyethylene glycol 3350 17 g packet (MIRALAX, GLYCOLAX) 17 g ORAL DAILY PRN bisacodyl 10 mg suppository (DULCOLAX) 10 mg RECTAL DAILY PRN melatonin 1 mg tab(s) 1 mg ORAL HS PRN dextrose 40 % 15 g 15 g ORAL PRN glucagon 1 mg injection (GLUCAGEN) 1 mg INTRAMUSCULAR PRN dextrose 50% in water 25 mL syringe 12.5 g INTRAVENOUS PRN pantoprazole DR 20 mg tab(s) (PROTONIX) 20 mg ORAL DAILY (6 AM) Objective PHYSICAL EXAM: Physical Exam Performed: GENERAL: Alert, no distress, cooperative NECK: No jugulovenous distention LUNGS: Minimal basal crepitations CARDIAC: Normal S1 and S2; no rubs, murmurs, or gallops ABDOMEN: Soft, nontender EXTREMITIES: No edema BP 144/52 Pulse 80 Temp (Src) 98.8 (Oral) Resp 16 Ht 5' 7.008 (1.70m) Wt 175 lb 7.8 oz (79.6kg) SpO2 96% BMI 27.48 kg/(m2). DATA: Diagnostic tests reviewed for today's visit: Most recent labs and imaging results. Impression/Recommenda daxa Sarina Lovett is a 73 year old female?with PMH of CAD (CABG in 2005, PCI to RCA in 2000 and 2015), aortic stenosis (s/p replacement in 2005 with #[address] [employer] Bioprosthetic valve), HTN, HLD, DM2 admitted for NSTEMI ? S/p cath 03/26 with 2 DAVID placed in SVG to RCA complicated with JULIETA treated with IVF. Patient later developed respiratory failure and fluid overload managed with CPAP/O2, and lasix. She was transferred to [facility] after improvement but re admitted to [facility] for worsening respiratory status in setting of acute diverticulitis, anemia, blood transfusion, and IVF. Currently on lasix IV, Diuresing well. SOB improved Negative balance ? 1- JULIETA on CKD 3 Contrast induced nephropathy Renal US reviewed Improving. Satisfactory urine output 2- Hyponatremia. Corrected with Na tablets 3-Metabolic acidosis. Resolved. D/c NaHCO3 4-Fluid overload. Can be switched to lasix PO 5-Anemia. S/p 1 unit of blood. Ferritin 116. Consider IV iron as outpatient SIGNATURE: Germain De Los Santos MD PATIENT NAME: Sarina Lovett DATE: April 04, 2018 TIME: 10:43 AM PAGER: [phone] I saw and evaluated the patient. Discussed with the resident and agree with resident's findings and plan as documented in the resident's note. 1. JULIETA sec to contrast - recovering - may use lasix for volume management - dosing per cardiology recommendation 2. Hyponatremia - resolved 3. Hypokalemia sec to lasix 4. Anemia - might need IV iron as out pt Clif Jarvis MD [facility] kidney [place] Normal [facility] Enteric Bact Pnl PCRon 04-04 [place] jejun/coli DNA Not Detected Normal [facility] Comment on above: Performed By: #### P TT, NTBNP, HSTNT, CBCDIF, PT, CKCKMB, CMP #### [place] [address] Salmonella spp. DNA Not Detected Normal [facility] Comment on above: Performed By: #### P TT, NTBNP, HSTNT, CBCDIF, PT, CKCKMB, CMP #### [place] [address] Shiga toxin gene(s) Not Detected Normal [facility] Comment on above: Performed By: #### P TT, NTBNP, HSTNT, CBCDIF, PT, CKCKMB, CMP #### [place] [phone] Shigella/EIEC DNA Not Detected Normal [facility] Comment on above: Performed By: #### P TT, NTBNP, HSTNT, CBCDIF, PT, CKCKMB, CMP #### [facility] [address] [place] [address] Magnesiumon 04-04-2018 Magnesium mass conc 2.3 mg/dL Normal 1.7-2.6 [facility] Comment on above: Performed By: #### P TT, NTBNP, HSTNT, CBCDIF, PT, CKCKMB, CMP #### [place] [id number] [place] [address] PROGRESSon 04-04-2018 Protein mass conc HNO ID: [id number] Author: Jose Jack Service: Pulmonary Disease Author Type: Physician Type: Progress Notes Filed: 04/04/2018 6:10 PM Note Text: Pulmonary/Critical Care Progress Note PATIENT NAME: Sarina Lovett DATE of SERVICE: April 04, 2018 TIME of SERVICE: 6:09 PM Admitting Physician: Andree Peters Attending Physician: Mary Thao S: Feels better with improved SOB and no significant cough or sputum production. Current hospital medications: magnesium oxide 800 mg tab(s) (MAG-OX) 800 mg ORAL BID ciprofloxacin HCl 500 mg tab(s) (CIPRO) 500 mg ORAL DAILY metroNIDAZOLE 500 mg tab(s) (FLAGYL) 500 mg ORAL q 8 H potassium chloride ER 40 mEq tab(s) (K-DUR, KLOR-CON) 40 mEq ORAL BID milrinone 20 mg in D5W 100 mL (PRIMACOR) 0.25 mcg/kg/min INTRAVENOUS CONTINUOUS hydrALAZINE 25 mg tab(s) (APRESOLINE) 25 mg ORAL q 8 H perflutren lipid microspheres 1.1 mg/mL 1.3 mL injection (DEFINITY) 1.3 mL INTRAVENOUS DIRECTED PRN furosemide 40 mg injection (LASIX) 40 mg INTRAVENOUS DAILY carvedilol 3.125 mg tab(s) (COREG) 3.125 mg ORAL BID w MEALS heparin 5,000 Units injection 5,000 Units SUBCUTANEOUS q 12 H acetaminophen 500-1,000 mg tab(s) (TYLENOL) 500-1,000 mg ORAL q 6 H PRN oxyCODONE IR 5-10 mg tab(s) (ROXICODONE) 5-10 mg ORAL q 6 H PRN ipratropium-albuterol 3 mL nebulizer solution (DUONEB) 3 mL INHALATION q 4 H while awake atorvastatin 80 mg tab(s) (LIPITOR) 80 mg ORAL AT BEDTIME [MAR Hold due to Transfer] nitroglycerin sublingual 0.4 mg tab(s) (NITROQUICK) 0.4 mg SUBLINGUAL PRN prochlorperazine 5 mg injection (COMPAZINE) 5 mg INTRAVENOUS q 6 H PRN insulin lispro injection (rapid acting) (HumaLOG) SUBCUTANEOUS w MEALS AND HS aspirin 81 mg chewable tab(s) 81 mg ORAL DAILY sertraline 150 mg tab(s) (ZOLOFT) 150 mg ORAL DAILY clopidogrel 75 mg tab(s) (PLAVIX) 75 mg ORAL DAILY buPROPion XL 150 mg tab(s) (WELLBUTRIN XL) 150 mg ORAL DAILY NaCl 0.9% 3-5 mL 3-5 mL INTRAVENOUS q 12 H polyethylene glycol 3350 17 g packet (MIRALAX, GLYCOLAX) 17 g ORAL DAILY PRN bisacodyl 10 mg suppository (DULCOLAX) 10 mg RECTAL DAILY PRN melatonin 1 mg tab(s) 1 mg ORAL HS PRN dextrose 40 % 15 g 15 g ORAL PRN glucagon 1 mg injection (GLUCAGEN) 1 mg INTRAMUSCULAR PRN dextrose 50% in water 25 mL syringe 12.5 g INTRAVENOUS PRN pantoprazole [address] 20 mg tab(s) (PROTONIX) 20 mg ORAL DAILY (6 AM) O: PHYSICAL EXAMINATION: Blood pressure 138/50, pulse 62, temperature 37 ?C (98.6 ?F), temperature source Oral, resp. rate 18, height 170.2 cm (5' 7.01 ), weight 79.6 kg (175 lb 7.8 oz), SpO2 98 %., Body mass index is 27.48 kg/m?. GENERAL: Cooperative, pleasant, in minimal respiratory distress. NECK: no jugulovenous distention, supple LUNGS: Improved breath sounds to both lung aguilar with soft bibasilar crackles. LABORATORY: CBC, Coags, BMP, Mg, Phos Recent Labs 04/04/18 1555 04/04/18 0401 04/03/18 2209 04/03/18 0354 04/02/18 0612 WBC -- 6.50 6.33 6.77 < > -- HB -- 8.6* 8.5* 7.5* < > -- HCT -- 25.8* 26.1* 23.0* < > -- PLT -- 221 210 207 < > -- NA 137 137 -- 138 137 < > 134 K 3.9 3.4* -- 3.8 3.9 < > 4.1 CHLOR 96* 94* -- 97* 97* < > 97* CO2 28 27 -- 24 23 < > 19* BUN 67* 68* -- 75* 75* < > 77* CREAT 1.84* 1.84* -- 2.22* 2.21* < > 2.33* GLUC 167* 135* -- 105* 107* < > 115* CA 8.9 8.7 -- 9.1 9.2 < > 8.8 MG -- 2.3 -- -- -- -- P -- -- -- 5.2* -- 5.0* < > = values in this interval not displayed. Liver Function, Amylase, AND Lipase Recent Labs 04/03/18 0354 04/02/18 0744 04/02/18 0612 TPROT -- 6.6 -- ALB 3.2* 3.3* 3.4* ALT -- 24 -- AST -- 26 -- ALKPHOS -- 91 -- TBILI -- 0.3 -- Cardiac Enzymes Recent Labs 04/02/18 1825 04/02/18 1044 04/02/18 0744 TROPT 9.390* 9.520* 10.090* ABGs Recent Labs 04/02/18 0740 PH 7.33* PCO2 40 PO2 81 BE NEG 5 HCO3 20* CO2CT 22 O2AD 45.0 ASSESSMENT AND PLAN: Acute hypoxic respiratory failure: Likely secondary to pulmonary edema secondary to acute non-Q-wave WI. Clinically and radiographically improving with current treatment Doubt an acute infectious process. We will continue with CHF management per primary and cardiology team. Rest of CPAP as tolerated. Discussed with CCU team. SIGNATURE: Jose Jack MD DATE: April 04, 2018 TIME: 6:09 PM This note was partially created using voice recognition software and is inherently subject to errors including those of syntax and sound-alike substitutions which may escape proofreading. In such instances, original meaning may be extrapolated by contextual derivation. ?? Normal [facility] Protein mass conc HNO ID: [id number] Author: Joy Browne Service: Cardiovascular Disease Author Type: Physician Type: Progress Notes Filed: 04/04/2018 3:15 PM Note Text: INPATIENT PROGRESS NOTES Patient Name: Sarina Lovett SERVICE DATE: 04/04/2018 SERVICE TIME: 3:01 PM PRIMARY SERVICE:Cardiology INTERVAL HPI: PERTINENT ROS: GENERAL: No weight loss, malaise or fevers., SEE HPI RESPIRATORY: Negative for cough, wheezing or shortness of breath. CARDIOVASCULAR: Negative for chest pain, leg swelling or palpitations. GI: Negative for abdominal discomfort, blood in stools or black stools or change in bowel habits MUSCULOSKELETAL: Negative for joint pain or swelling, back pain or muscle pain. All other reviewed and negative other than HPI. MEDICATIONS: Current hospital medications: magnesium oxide 800 mg tab(s) (MAG-OX) 800 mg ORAL BID ciprofloxacin HCl 500 mg tab(s) (CIPRO) 500 mg ORAL DAILY metroNIDAZOLE 500 mg tab(s) (FLAGYL) 500 mg ORAL q 8 H milrinone 20 mg in D5W 100 mL (PRIMACOR) 0.25 mcg/kg/min INTRAVENOUS CONTINUOUS hydrALAZINE 25 mg tab(s) (APRESOLINE) 25 mg ORAL q 8 H perflutren lipid microspheres 1.1 mg/mL 1.3 mL injection (DEFINITY) 1.3 mL INTRAVENOUS DIRECTED PRN furosemide 40 mg injection (LASIX) 40 mg INTRAVENOUS DAILY carvedilol 3.125 mg tab(s) (COREG) 3.125 mg ORAL BID w MEALS heparin 5,000 Units injection 5,000 Units SUBCUTANEOUS q 12 H acetaminophen 500-1,000 mg tab(s) (TYLENOL) 500-1,000 mg ORAL q 6 H PRN oxyCODONE IR 5-10 mg tab(s) (ROXICODONE) 5-10 mg ORAL q 6 H PRN ipratropium-albuterol 3 mL nebulizer solution (DUONEB) 3 mL INHALATION q 4 H while awake atorvastatin 80 mg tab(s) (LIPITOR) 80 mg ORAL AT BEDTIME [MAR Hold due to Transfer] nitroglycerin sublingual 0.4 mg tab(s) (NITROQUICK) 0.4 mg SUBLINGUAL PRN prochlorperazine 5 mg injection (COMPAZINE) 5 mg INTRAVENOUS q 6 H PRN insulin lispro injection (rapid acting) (HumaLOG) SUBCUTANEOUS w MEALS AND HS aspirin 81 mg chewable tab(s) 81 mg ORAL DAILY sertraline 150 mg tab(s) (ZOLOFT) 150 mg ORAL DAILY clopidogrel 75 mg tab(s) (PLAVIX) 75 mg ORAL DAILY buPROPion XL 150 mg tab(s) (WELLBUTRIN XL) 150 mg ORAL DAILY NaCl 0.9% 3-5 mL 3-5 mL INTRAVENOUS q 12 H polyethylene glycol 3350 17 g packet (MIRALAX, GLYCOLAX) 17 g ORAL DAILY PRN bisacodyl 10 mg suppository (DULCOLAX) 10 mg RECTAL DAILY PRN melatonin 1 mg tab(s) 1 mg ORAL HS PRN dextrose 40 % 15 g 15 g ORAL PRN glucagon 1 mg injection (GLUCAGEN) 1 mg INTRAMUSCULAR PRN dextrose 50% in water 25 mL syringe 12.5 g INTRAVENOUS PRN pantoprazole [address] 20 mg tab(s) (PROTONIX) 20 mg ORAL DAILY (6 AM) PHYSICAL EXAM: Patient Vitals for the past 24 hrs: BP Temp Temp src Pulse Resp SpO2 Weight 04/04/18 1400 144/51 - - 69 - 98 % - 04/04/18 1300 (!) 105/45 - - 69 - 98 % - 04/04/18 1200 148/53 37 ?C (98.6 ?F) Oral 66 13 99 % - 04/04/18 1136 - - - 66 23 100 % - 04/04/18 1128 - - - 67 18 98 % - 04/04/18 1100 151/51 - - 67 17 99 % - 04/04/18 1000 141/51 - - 70 15 98 % - 04/04/18 0900 144/52 - - 80 16 96 % - 04/04/18 0828 - - - 80 20 100 % - 04/04/18 0821 - - - 83 12 96 % - 04/04/18 0803 (!) 137/45 - - 87 21 94 % - 02/05/19 0800 - 37.1 ?C (98.8 ?F) Oral - - - - 04/04/18 0700 145/54 - - 86 18 93 % - 04/04/18 0600 144/58 - - 73 15 97 % - 04/04/18 0500 150/50 - - 72 15 95 % - 04/04/18 0400 154/52 36.5 ?C (97.7 ?F) Axillary 75 18 100 % 79.6 kg (175 lb 7.8 oz) 04/04/18 0300 140/50 - - 72 18 99 % - 04/04/18 0200 143/52 - - 74 25 99 % - 04/04/18 0100 142/50 - - 74 16 99 % - 04/04/18 0000 141/51 36.9 ?C (98.4 ?F) Axillary 76 14 99 % - 04/03/18 2300 145/52 - - 83 15 96 % - 04/03/18 2200 (!) 115/47 - - 84 17 96 % - 04/03/18 2121 (!) 121/44 - - 84 - - - 04/03/18 2100 (!) 142/45 - - 84 22 96 % - 04/03/18 2000 (!) 133/47 36.9 ?C (98.4 ?F) Oral 77 23 95 % - 04/03/18 1937 - - - 76 17 - - 04/03/18 192 (!) 138/49 37.1 ?C (98.8 ?F) - 77 27 - - 04/03/18 192 - - - 76 20 95 % - 04/03/18 192 - - - - - 95 % - 04/03/18 1900 (!) 131/47 - - 75 17 96 % - 04/03/18 1800 (!) 132/44 - - 78 20 96 % - 04/03/18 1720 (!) 123/47 - - 83 19 95 % - 04/03/18 1705 - - - 82 19 95 % - 04/03/18 1700 (!) 112/40 - - 87 25 96 % - 04/03/18 1600 (!) 127/42 37 ?C (98.6 ?F) Oral 73 16 96 % - 04/03/18 1526 - - - 77 20 - - 04/03/18 1515 - - - 67 17 96 % - Body mass index is 27.48 kg/m?. GENERAL: healthy, alert, no distress, cooperative SKIN: Skin color, texture, turgor normal. No rashes or lesions. NECK: no jugulovenous distention, no carotid bruits, carotid pulse normal contour, supple LUNGS: Lungs clear to auscultation. Good diaphragmatic excursion. CARDIAC: normal S1 and S2; no rubs, murmurs, or gallops ABDOMEN: Abdomen soft, non-tender. BS normal. No masses or organomegaly. EXTREMITIES: Extremities normal. No deformities, edema, clubbing or skin discoloration. DATA: Diagnostic tests reviewed for today's visit: CBC: Recent Labs 04/04/18400 WBC 6.50 RBC 2.97* HB 8.6* HCT 25.8* PLT 221 MCV 86.9 MCH 29.0 MPV 10.3 Coags: No results for input(s): INR, APTT in the last 24 hours. Invalid input(s): PT BMP: Recent Labs 04/04/18 040 NA 137 K 3.4* CHLOR 94* CO2 27 BUN 68* CREAT 1.84* GLUC 135* CMP: Recent Labs 04/04/18400 NA 137 K 3.4* CHLOR 94* CO2 27 BUN 68* CREAT 1.84* GLUC 135* CA 8.7 MG 2.3 ANION 16 ASSESSMENT AND PLAN: (R07.9) Chest pain, unspecified type (primary encounter diagnosis) (N17.9) JULIETA (acute kidney injury) ([facility]) (E87.5) Hyperkalemia (R74.8) Elevated troponin (I21.4) NSTEMI (non-ST elevated myocardial infarction) ([facility]) (I20.0) Unstable angina pectoris ([facility]) (I25.110) Atherosclerosis of coronary artery of [place] heart with unstable angina pectoris, unspecified vessel or lesion type ([facility]) (I10) Essential hypertension, benign (I16.1) Hypertensive emergency (F99) Psychiatric disorder (Z72.0) Tobacco abuse (I50.9) Acute decompensated heart failure ([facility]) Notice k is 3.4 will give potassium supplement Patient is doing better, will keep iv lasix and milrinone for another 24 hrs SIGNATURE: Joy Browne MD DATE: April 04, 2018 TIME: 3:01 PM Normal [facility] Protein mass conc HNO ID: [id number] Author: Kinsey Dmuas MD Service: Hospital Medicine Author Type: Resident Type: Progress Notes Filed: 04/04/2018 11:02 AM Note Text: Attestation signed by Mary Thao at 04/04/2018 12:11 PM IM ATTENDING NOTES: ? I have seen and evaluated the patient and discussed the case with the resident physician. ?I agree with the assessment and plan as documented in the resident?s note. Discussed with dr. Browne, continue lasix IV and Milrinone IV ? Mary Thao MD 04/04/18 HOSPITAL MEDICINE [facility] PROGRESS NOTE NAME: Sarina Lovett SERVICE DATE: 04/04/2018 SERVICE TIME: 10:18 AM ASSESSMENT AND PLAN Sarina Lovett is a 73 year old female with PMH of CAD (CABG in 2005, PCI to RCA in 2000 and 2015), aortic stenosis (s/p replacement in 2005 with #[address] [employer] Bioprosthetic valve), HTN, HLD, DM who presented with chest pain and elevated troponin, found to have NSTEMI. Cath done on 03/26 resulting in 2 DAVID in SVG to RCA. Patient transferred to [facility] on 03/29, back to [facility] on 04/02 for increased SOB and significantly elevated troponin. ? Acute hypoxic respiratory failure Likely COPD; history of tobacco abuse Suspect worsening respiratory status due to CHF and possible underlying COPD. Required CPAP again on 04/02 and was transferred back to [facility]. CXR with significant pulmonary edema R>L, restarted on lasix. Back on NC 2L on 04/03. 2V CXR improved on 04/04/2018, no evidence of pneumonia. - supplemental O2 PRN; CPAP PRN for worsening respiratory status - incentive spirometry - duonebs q4h while awake - pulmonology consulted, appreciate input ? Acute on chronic HFrEF Echo on 03/25 with EF50% and grade I diastolic dysfunction. Repeat echo on 04/02 with EF56%, no significant change despite worsening clinical status. Net negative 2L on 04/02 after 40mg IV lasix with improved respiratory status. - continue coreg 3.125mg BID, ACEi on hold for JULIETA - IV lasix 40mg daily - started on IV milrinone 04/03/[address] Browne, will continue today - cardiology following, appreciate input ? NSTEMI (non-ST elevated myocardial infarction) (HCC) POA: Yes Chest pain POA: Yes Coronary atherosclerosis POA: Yes Patient with significant CAD history, presented with chest pain and elevated troponin, 2 DAVID in SVG to RCA on 03/26. Started on asa/plavix. Chest pain has resolved. - continue plavix / asa, lipitor 80mg daily, coreg 3.125mg BID ? Elevated Troponin Patient presented with NSTEMI, Trop T up to 2.16 prior to cath. Rechecked trop with worsening respiratory status on 04/02 and had increased to 10.09. Per cardiology, thought to be related to post-PCI vs pulmonary edema. Patient without chest pain. Nitro drip stopped. ? Spleen lesions On CT, multiple lesions were seen which were new / changed from prior exams (did see splenic cysts on prior exams). - recommend MRI to evaluate further, would suggest as outpatient or once clinical status improves ? Sigmoid Diverticulitis Patient with history of diverticulitis, developed worsening abd pain and diarrhea while admitted. C diff negative. CT abd with sigmoid diverticulitis - on cipro, flagyl (day 5 today), will change to PO - GI soft diet - per GI, needs low fiber diet x2 weeks, then high fiber diet - will need colonoscopy in 8 weeks ? Essential hypertension, benign POA: Yes Presented with SBP in 200s, improved during admission. BP borderline low, decreased coreg and improved on 04/03. - coreg 3.125mg BID - started on hydralazine 25mg TID per Dr. Browne ? Contrast dye induced nephropathy POA: No Acute renal failure superimposed on stage 3 chronic kidney disease (HCC) POA: No Baseline Cr 1.3-1.5, increased during admission to max of 3.6 thought to be due to contrast as well as hypotension. Improving / stable to 2.2 on 04/03/2018. Renal ultrasound without hydronephrosis. Cr continues to improve during admission. - sodium bicarb decreased to 325mg TID - nephrology following, appreciate input - would continue IV lasix today as patient's kidney function improving ? Anemia Patient with chronic anemia, baseline Hgb 9-11 range; normocytic. Ferritin was normal, thought to be anemia of chronic disease. Patient without melena or hematochezia. Hgb 7.5 on 04/03, given 1U pRBCs with appropriate response. - continue to monitor - will need outpatient colonoscopy as above ? T2DM ? On glimepiride 1mg BID at home, last A1c 9.3% in 08/2016 at [facility]. Repeat A1c on admission 6.0%. - SSI1 - holding home glimepiride due to JULIETA ? Tobacco abuse POA: Yes 50 pack-year history, encourage cessation. ? Psychiatric disorder POA: Yes Patient with history of depression, significant social stressors. - continue zoloft 150mg daily, wellbutrin 150mg daily Mild protein-calorie malnutrition Albumin 3.2. Encourage PO intake, diet being advanced. VTE Prophylaxis - subQ heparin 5000U BID Dispo - continue to monitor in [facility] SUBJECTIVE INTERVAL HPI: Ms. Lovett feels well this morning. She denies chest pain, palpitations. MEDICATIONS: Reviewed OBJECTIVE VITAL SIGNS (last 24hrs min/max): Temp Av.9 ?C (98.4 ?F) Min: 36.5 ?C (97.7 ?F) Max: 37.1 ?C (98.8 ?F) Pulse Av.1 Min: 61 Max: 87 Cuff BP Min: 112/40 Max: 154/52 Pain Score: 0/10 PHYSICAL EXAM: General: Alert, no distress, cooperative Lungs: + faint bibasilar crackles present, decreased breath sounds R side Cardiac: NL S1 and S2, + systolic murmur Abdomen: Non-tender, BS normal, no organomegaly Extremities: No edema or skin discoloration Neuro: Grossly normal cognition, motor function DATA: Diagnostic tests reviewed for today's visit: Most recent labs Most recent EKG Most recent image Most recent culture Kinsey Dumas MD Family Medicine PGY2 April 04, 2018 [facility] XR CHEST 1V FRONTAL PORTon 0 04-04-2018 XR CHEST 1V FRONTAL PORT * * *Final Report* * * DATE OF EXAM: Apr 04 2018 11:10AM FVX [id number] - XR CHEST 1V FRONTAL PORT / PROCEDURE REASON: Acute respiratory illness * * * * Physician Interpretation * * * * EXAMINATION: CHEST RADIOGRAPH (PORTABLE SINGLE VIEW AP) Exam Date/Time: 04/04/2018 11:10 AM CLINICAL HISTORY: Acute respiratory illness, MQ: XCPR_5 Comparison: 04/03/2018 RESULT: Lines, tubes, and devices: None. Lungs and pleura: There is right perihilar and right upper lobe airspace opacification demonstrating slight interval improvement. There is no pneumothorax or large effusion. Cardiomediastinal silhouette: Cardiomegaly in this patient status post sternotomy. Other: . IMPRESSION: Slight interval improvement. Armature Rewinder: PSCB Transcribe Date/Time: Apr 04 2018 4:00P Dictated by : KIRSTIE ANDRADE MD This examination was interpreted and the report reviewed and electronically signed by: KIRSTIE ANDRADE MD on Apr 04 2018 4:01PM EST [id number] N [facility] ALLIED HEALTHon 04-03-2018 ALLIED HEALTH HNO ID: [id number] Author: Amanda Michael (Rt) Service: Radiology Author Type: Commercial Management Accountant Type: Allied Health Filed: 04/03/2018 12:43 PM Note Text: Radiology Service Progress Note PATIENT NAME: Sarina Lovett DATE OF SERVICE: April 03, 2018 TIME: 12:42 PM PATIENT IDENTITY VERIFICATION COMPLETED USING TWO (2) METHODS: Patient confirmed name verbally and ID band matches.. PATIENT GENDER DATA: Female. status: : No status: NO. PATIENT RELEVANT IMPLANT DATA REVIEWED: Not Applicable RADIOLOGY DEPARTMENT: General X-ray: Exam(s) Completed: Chest X-Ray PERIPHERAL IV DATA: Not applicable SIGNED BY: Dorene Mcdonald RT April 03, 2018 12:42 PM [facility] Basic Metabolic Panlon 04-03 Calcium mass conc 9.2 mg/dL Normal 8.5-10.5 [facility] Comment on above: Performed By: #### P TT, NTBNP, HSTNT, CBCDIF, PT, CKCKMB, CMP #### [place] [id number] CO2 molar conc 23 mmol/L Normal 23-32 [facility] Comment on above: Performed By: #### P TT, NTBNP, HSTNT, CBCDIF, PT, CKCKMB, CMP #### [place] [id number] Creatinine mass conc 2.21 mg/dL High 0.70-1.40 [facility] Comment on above: Performed By: #### P TT, NTBNP, HSTNT, CBCDIF, PT, CKCKMB, CMP #### [place] [id number] eGFR- Amer. 26 Low >60 [facility] Comment on above: Performed By: #### P TT, NTBNP, HSTNT, CBCDIF, PT, CKCKMB, CMP #### [place] [id number] Glucose mass conc 107 mg/dL High 65-100 [facility] Comment on above: Performed By: #### P TT, NTBNP, HSTNT, CBCDIF, PT, CKCKMB, CMP #### [place] [id number] Potassium molar conc 3.9 mmol/L Normal 3.5-5.0 [facility] Comment on above: Performed By: #### P TT, NTBNP, HSTNT, CBCDIF, PT, CKCKMB, CMP #### [place] [id number] Sodium molar conc 137 mmol/L Normal 132-148 [facility] Comment on above: Performed By: #### P TT, NTBNP, HSTNT, CBCDIF, PT, CKCKMB, CMP #### [place] [phone] Urea nitrogen mass conc 75 mg/dL High 8-25 [facility] Comment on above: Performed By: #### P TT, NTBNP, HSTNT, CBCDIF, PT, CKCKMB, CMP #### [place] [phone] CASE MANAGEMon 04-03-2018 CASE MANAGEM HNO ID: [id number] Author: Chiara Bethea (Lisw-S) Service: Case Management Author Type: Plastic Surgery Nurse Type: Care Mgt Progress Note Filed: 04/03/2018 1:12 PM Note Text: CARE MANAGEMENT PROGRESS NOTE SERVICE DATE: 04/03/2018 SERVICE TIME: 1:10 PM LOS: 10 days Needs Prior to Discharge: To Be Determined Pt was a transfer from [facility] d/t fluid overload and SOB. Chest XRay pending. Pt to receive 1 unit of PRBC per hospital medicine note. May need HHC at d/c; if so, will need a HHC F2F. SIGNATURE: MITALI Cash PATIENT NAME: Sarina Lovett DATE: April 03, 2018 TIME: 1:10 PM PAGER/CONTACT #: [phone] Normal [facility] CBC and Differentialon 04-03 Abs Baso <0.03 Normal <0.11 [facility] Comment on above: Performed By: #### P TT, NTBNP, HSTNT, CBCDIF, PT, CKCKMB, CMP #### [place] [phone] Abs [place] 0.44 k/uL Normal <0.87 [facility] Comment on above: Performed By: #### P TT, NTBNP, HSTNT, CBCDIF, PT, CKCKMB, CMP #### [place] [phone] Abs Neut 5.70 k/uL Normal 1.45-7.50 [facility] Comment on above: Performed By: #### P TT, NTBNP, HSTNT, CBCDIF, PT, CKCKMB, CMP #### [place] [id number] Basophils/100 WBC (Bld) 0.1 % Normal [facility] Comment on above: Performed By: #### P TT, NTBNP, HSTNT, CBCDIF, PT, CKCKMB, CMP #### [place] [phone] DTYPE Auto Diff Normal [facility] Comment on above: Performed By: #### P TT, NTBNP, HSTNT, CBCDIF, PT, CKCKMB, CMP #### [place] [phone] Eosinophils #/vol (Bld) 0.08 10*3/uL Normal <0.46 [facility] Comment on above: Performed By: #### P TT, NTBNP, HSTNT, CBCDIF, PT, CKCKMB, CMP #### [address] Eosinophils/100 WBC (Bld) 1.2 % Normal [facility] Comment on above: Performed By: #### P TT, NTBNP, HSTNT, CBCDIF, PT, CKCKMB, CMP #### [address] Erythrocyte distribution width Ratio (RBC) 13.8 % Normal 11.5-15.0 [facility] Comment on above: Performed By: #### P TT, NTBNP, HSTNT, CBCDIF, PT, CKCKMB, CMP #### [place] [phone] Hematocrit Volume Fraction (Bld) 23.0 % Low 36.0-46.0 [facility] Comment on above: Performed By: #### P TT, NTBNP, HSTNT, CBCDIF, PT, CKCKMB, CMP #### [place] [address] Hemoglobin mass conc (Bld) 7.5 g/dL Low 11.5-15.5 [facility] Comment on above: Performed By: #### P TT, NTBNP, HSTNT, CBCDIF, PT, CKCKMB, CMP #### [place] [address] Lymphocytes #/vol (Bld) 0.54 10*3/uL Low 1.00-4.00 [facility] Comment on above: Performed By: #### P TT, NTBNP, HSTNT, CBCDIF, PT, CKCKMB, CMP #### [place] [address] Lymphocytes/100 WBC (Bld) 8.0 % Normal [facility] Comment on above: Performed By: #### P TT, NTBNP, HSTNT, CBCDIF, PT, CKCKMB, CMP #### [place] [address] MCH Entitic mass (RBC) 28.5 pG Normal 26.0-34.0 [facility] Comment on above: Performed By: #### P TT, NTBNP, HSTNT, CBCDIF, PT, CKCKMB, CMP #### [place] [address] MCHC mass conc (RBC) 32.6 g/dL Normal 30.5-36.0 [facility] Comment on above: Performed By: #### P TT, NTBNP, HSTNT, CBCDIF, PT, CKCKMB, CMP #### [place] [id number] MCV Entitic volume (RBC) 87.5 fL Normal 80.0-100.0 [facility] Comment on above: Performed By: #### P TT, NTBNP, HSTNT, CBCDIF, PT, CKCKMB, CMP #### [place] [phone] Monocytes/100 WBC (Bld) 6.5 % Normal [facility] Comment on above: Performed By: #### P TT, NTBNP, HSTNT, CBCDIF, PT, CKCKMB, CMP #### [place] [phone] Neutrophils/100 WBC (Bld) 84.2 % Normal [facility] Comment on above: Performed By: #### P TT, NTBNP, HSTNT, CBCDIF, PT, CKCKMB, CMP #### [phone] Platelet mean volume Entitic volume (Bld) 10.9 fL Normal 9.0-12.7 [facility] Comment on above: Performed By: #### P TT, NTBNP, HSTNT, CBCDIF, PT, CKCKMB, CMP #### [place] [phone] Platelets #/vol (Bld) 207 10*3/uL Normal 150-400 [facility] Comment on above: Performed By: #### P TT, NTBNP, HSTNT, CBCDIF, PT, CKCKMB, CMP #### [place] [phone] RBC #/vol (Bld) 2.63 10*6/uL Low 3.90-5.20 [facility] Comment on above: Performed By: #### P TT, NTBNP, HSTNT, CBCDIF, PT, CKCKMB, CMP #### [place] [phone] WBC #/vol (Bld) 6.77 10*3/uL Normal 3.70-11.00 [facility] Comment on above: Performed By: #### P TT, NTBNP, HSTNT, CBCDIF, PT, CKCKMB, CMP #### [place] [phone] CONSULT PROGon 04-03-2018 Protein mass conc HNO ID: [id number] Author: Clif Dhillon Service: Nephrology Author Type: Physician Type: Consult Progress Note Filed: 04/03/2018 1:17 PM Note Text: Nephrology Progress Note Following for JULIETA She has been doing, volume status is OK today UOP is great, cr is stable and improving Current Inpatient Medications: Current hospital medications: milrinone 20 mg in D5W 100 mL (PRIMACOR) 0.25 mcg/kg/min INTRAVENOUS CONTINUOUS hydrALAZINE 25 mg tab(s) (APRESOLINE) 25 mg ORAL q 8 H perflutren lipid microspheres 1.1 mg/mL 1.3 mL injection (DEFINITY) 1.3 mL INTRAVENOUS DIRECTED PRN furosemide 40 mg injection (LASIX) 40 mg INTRAVENOUS DAILY sodium bicarbonate 325 mg tab(s) 325 mg ORAL TID ciprofloxacin 400 mg in D5W 200 mL (CIPRO) 400 mg INTRAVENOUS q 24 HR metroNIDAZOLE 500 mg PREMIX piggyback (FLAGYL) 500 mg INTRAVENOUS q 8 H carvedilol 3.125 mg tab(s) (COREG) 3.125 mg ORAL BID w MEALS heparin 5,000 Units injection 5,000 Units SUBCUTANEOUS q 12 H acetaminophen 500-1,000 mg tab(s) (TYLENOL) 500-1,000 mg ORAL q 6 H PRN oxyCODONE IR 5-10 mg tab(s) (ROXICODONE) 5-10 mg ORAL q 6 H PRN ipratropium-albuterol 3 mL nebulizer solution (DUONEB) 3 mL INHALATION q 4 H while awake atorvastatin 80 mg tab(s) (LIPITOR) 80 mg ORAL AT BEDTIME [MAR Hold due to Transfer] nitroglycerin sublingual 0.4 mg tab(s) (NITROQUICK) 0.4 mg SUBLINGUAL PRN prochlorperazine 5 mg injection (COMPAZINE) 5 mg INTRAVENOUS q 6 H PRN insulin lispro injection (rapid acting) (HumaLOG) SUBCUTANEOUS w MEALS AND HS aspirin 81 mg chewable tab(s) 81 mg ORAL DAILY sertraline 150 mg tab(s) (ZOLOFT) 150 mg ORAL DAILY clopidogrel 75 mg tab(s) (PLAVIX) 75 mg ORAL DAILY buPROPion XL 150 mg tab(s) (WELLBUTRIN XL) 150 mg ORAL DAILY NaCl 0.9% 3-5 mL 3-5 mL INTRAVENOUS q 12 H polyethylene glycol 3350 17 g packet (MIRALAX, GLYCOLAX) 17 g ORAL DAILY PRN bisacodyl 10 mg suppository (DULCOLAX) 10 mg RECTAL DAILY PRN melatonin 1 mg tab(s) 1 mg ORAL HS PRN dextrose 40 % 15 g 15 g ORAL PRN glucagon 1 mg injection (GLUCAGEN) 1 mg INTRAMUSCULAR PRN dextrose 50% in water 25 mL syringe 12.5 g INTRAVENOUS PRN pantoprazole DR 20 mg tab(s) (PROTONIX) 20 mg ORAL DAILY (6 AM) Vitals: 04/03/18 0800 04/03/18 0900 04/03/18 1000 04/03/18 1200 BP: 154/52 (!) 132/48 142/51 Pulse: 64 70 63 Resp: 15 20 20 Temp: 36.6 ?C (97.9 ?F) 36.7 ?C (98.1 ?F) TempSrc: Oral Oral SpO2: 98% 98% 98% Weight: Height: INTAKE/OUTPUT: Intake/Output Summary (Last 24 hours) at 04/03/18 1309 Last data filed at 04/03/18 1000 Gross per 24 hour Intake 1628 ml Output 3650 ml Net -2022 ml Physical Exam: Gen:NAD AOx3 Skin: no rash Heent: AT NC Neck: supple CVS: RRR s1s2 Resp: CTAB Abd: soft NT ND : no browning Ext: No edema Labs: Recent Labs 04/03/18 0354 04/02/18 0744 04/02/18 0612 04/01/18 0732 04/01/18 0606 03/31/18 0553 CREAT 2.22* 2.21* 2.29* 2.33* -- 3.28* 3.60* BUN 75* 75* 76* 77* -- 88* 85* NA 138 137 135 134 -- 133 128* K 3.8 3.9 4.1 4.1 -- 4.5 3.2* CHLOR 97* 97* 97* 97* -- 96* 88* CO2 24 23 20* 19* -- 19* 14* GLUC 105* 107* 127* 115* -- 91 132* CA 9.1 9.2 8.8 8.8 -- 8.5 7.8* MG -- -- -- -- -- 2.1 P 5.2* -- 5.0* -- 5.9* 6.2* ALB 3.2* 3.3* 3.4* -- -- 3.2* WBC 6.77 8.23 -- 6.53 -- 8.16 HB 7.5* 8.2* -- 7.5* -- 7.8* MCV 87.5 86.8 -- 85.4 -- 85.8 PLT 207 192 -- 151 -- 152 No results for input(s): BUNPR, BUNPO in the last 168 hours. Recent Labs 04/02/18 0740 03/31/18 1435 03/28/18 1252 03/27/18 1908 PH 7.33* 7.35 -- 7.29* PCO2 40 32* -- 33* PO2 81 76* -- 68* LACT -- 0.6 1.1 -- Assessment / Plan: 73 yo lady with PMH of CKD, CAD, CHF EF 50%m HTN, HL admitted with NSTEMI s/p DAVID, course c/b JULIETA and acute resp failure 1. JULIETA sec to contrast, renal function is improving - good UOP - may DC IVf lasix and switch to PO 2. Volume status is acceptable 3. Metabolic acidosis 4. hyperphosphatemia 5. Anemia: Cont monitoring Clif Jarvis MD [facility] [place] [facility] Protein mass conc HNO ID: [id number] Author: Kamille Lopez Service: Gastroenterology Author Type: Nurse Practitioner Type: Consult Progress Note Filed: 04/03/2018 10:08 AM Note Text: CONSULT PROGRESS NOTE SERVICE DATE: 04/03/2018 SERVICE TIME: 10:03 AM CONSULTING SERVICE: GI Subjective INTERVAL HPI: Pt reports feeling better today - abdominal pain improved. No nausea or vomiting. Hungry. Now in [place] unit for SOB/pulmonary edema. Current hospital medications: hydrALAZINE 50 mg tab(s) (APRESOLINE) 50 mg ORAL q 8 H milrinone 20 mg in D5W 100 mL (PRIMACOR) 0.25 mcg/kg/min INTRAVENOUS CONTINUOUS perflutren lipid microspheres 1.1 mg/mL 1.3 mL injection (DEFINITY) 1.3 mL INTRAVENOUS DIRECTED PRN furosemide 40 mg injection (LASIX) 40 mg INTRAVENOUS DAILY sodium bicarbonate 325 mg tab(s) 325 mg ORAL TID ciprofloxacin 400 mg in D5W 200 mL (CIPRO) 400 mg INTRAVENOUS q 24 HR metroNIDAZOLE 500 mg PREMIX piggyback (FLAGYL) 500 mg INTRAVENOUS q 8 H carvedilol 3.125 mg tab(s) (COREG) 3.125 mg ORAL BID w MEALS heparin 5,000 Units injection 5,000 Units SUBCUTANEOUS q 12 H acetaminophen 500-1,000 mg tab(s) (TYLENOL) 500-1,000 mg ORAL q 6 H PRN oxyCODONE IR 5-10 mg tab(s) (ROXICODONE) 5-10 mg ORAL q 6 H PRN ipratropium-albuterol 3 mL nebulizer solution (DUONEB) 3 mL INHALATION q 4 H while awake atorvastatin 80 mg tab(s) (LIPITOR) 80 mg ORAL AT BEDTIME [MAR Hold due to Transfer] nitroglycerin sublingual 0.4 mg tab(s) (NITROQUICK) 0.4 mg SUBLINGUAL PRN prochlorperazine 5 mg injection (COMPAZINE) 5 mg INTRAVENOUS q 6 H PRN insulin lispro injection (rapid acting) (HumaLOG) SUBCUTANEOUS w MEALS AND HS aspirin 81 mg chewable tab(s) 81 mg ORAL DAILY sertraline 150 mg tab(s) (ZOLOFT) 150 mg ORAL DAILY clopidogrel 75 mg tab(s) (PLAVIX) 75 mg ORAL DAILY buPROPion XL 150 mg tab(s) (WELLBUTRIN XL) 150 mg ORAL DAILY NaCl 0.9% 3-5 mL 3-5 mL INTRAVENOUS q 12 H polyethylene glycol 3350 17 g packet (MIRALAX, GLYCOLAX) 17 g ORAL DAILY PRN bisacodyl 10 mg suppository (DULCOLAX) 10 mg RECTAL DAILY PRN melatonin 1 mg tab(s) 1 mg ORAL HS PRN dextrose 40 % 15 g 15 g ORAL PRN glucagon 1 mg injection (GLUCAGEN) 1 mg INTRAMUSCULAR PRN dextrose 50% in water 25 mL syringe 12.[address]ENOUS PRN pantoprazole [address] 20 mg tab(s) (PROTONIX) 20 mg ORAL DAILY (6 AM) Objective PHYSICAL EXAM: Physical Exam Performed: GENERAL: Alert, no distress, cooperative ABDOMEN: Abdomen soft, non-tender, BS normal, No masses or organomegaly BP 132/48 Pulse 70 Temp (Src) 97.9 (Oral) Resp 20 Ht 5' 7.008 (1.70m) Wt 176 lb 12.9 oz (80.2kg) SpO2 98% BMI 27.69 kg/(m2). DATA: Diagnostic tests reviewed for today's visit: Most recent labs and imaging results. Impression/Recommenda tions 1. ?Lower abd pain:?started yesterday, improved some today, some tenderness on exam, h/o diverticulitis. ? 2. ?Diarrhea: frequent unformed stools yesterday, c diff negative, no BMs today. ?No fever. ? 3. Acute uncomplicated sigmoid diverticulitis - noted on CT overnight, now with LLQ abdominal pain, not tolerating breakfast 4. Anemia - acute on chronic normocytic - Hgb 7.8 today, no melena or hematochezia 5. JULIETA on CKD 3 - creatinine increased today 3.6, nephrology following 6. NSTEMI - s/p PCI with stents, on plavix ASA, cardiology following ? Plan: Continue cipro and flagyl - can convert to PO on discharge and continue x 5-7 days Advance to fiber-controlled diet Will need low fiber diet x 2 weeks, and once inflammation has resolved, can start high fiber diet Reports having had colonoscopy within last two years, but no records available Will need colonoscopy in 8 weeks once diverticulitis has resolved OK to DC once pain controlled and tolerating diet ? Kamille Lopez CNP [facility] ? Thank you for allowing us to participate in the care of this patient. Please call with questions or concerns. ? SIGNATURE: Kamille Lopez APRN.BHARAT PATIENT NAME: Sarina Lovett DATE: April 03, 2018 TIME: 10:02 AM PAGER: [phone] [facility] Confirm Blood Typeon 019 ABO/RH(D) Positive Normal [facility] Comment on above: Performed By: #### P TT, NTBNP, HSTNT, CBCDIF, PT, CKCKMB, CMP #### [facility] [address] [place] [address] NURSING PROGon 04-03-2018 Protein mass conc HNO ID: [id number] Author: Sharda CabreraRn) DEBBIE Damon Service: Critical Care Author Type: Registered Nurse Type: Nursing Progress Note Filed: 04/04/2018 5:22 AM Note Text: Nursing Progress Note Patient Name: Sarina Lovett Patient Location: [place] [address]/[facility] * Daily Note: This note was completed by: Sharda Damon RN 1936- 1 unit PRBC completed infusing. Dr. Cardenas notified for order for repeat CBC. Ordered for 2200. 2102- Pt with [address] Cardenas notified. New order received for 2G IV mag. 0515- Pt K came back at 3.4. Dr. Cardenas notified for orders. [facility] Protein mass conc HNO ID: [id number] Author: Brayan CabreraRn) Francia, DEBBIE Service: (none) Author Type: Registered Nurse Type: Nursing Progress Note Filed: 04/03/2018 7:15 PM Note Text: Nursing Progress Note Patient Name: Sarina Lovett Patient Location: [place] [address]/[facility] * Daily Note:1640 Dr. Thao ordered unit of PRBC, blood is ready Dr. Thao to go over consent with pt. This note was completed by: Brayan Nichols RN 1810 Pt family at the bedside, updated on pt condition. [facility] Protein mass conc HNO ID: [id number] Author: Delma CabreraRn) DEBBIE Garsia Service: Critical Care Author Type: Registered Nurse Type: Nursing Progress Note Filed: 04/03/2018 4:55 PM Note Text: 0730Care assumed at this time. 1000Dr.Nukta to room for daily exam/consult.Nitro gtt off per order. Patient continues to deny chest pain/nausea.Continues to have intermittent sob greater on exertion. Will do 2view cxr to r/o pneumonia. 1015Gi Nurse practitioner to bedside for consult/exam.Will advance diet today. 1300Remains up in chair.Continues to deny sob/chest pain. Skin warm/pale and dry. 1630Patient to have blood transfusion after obtains consent. [facility] Protein mass conc HNO ID: [id number] Author: Constantine (Rn) DEBBIE Potter Service: (none) Author Type: Registered Nurse Type: Nursing Progress Note Filed: 04/03/2018 7:37 AM Note Text: Nursing Progress Note Patient Name: Sarina Lovett Patient Location: [place] [address] [address]* Daily Note: 2300: Received report from DEBBIE Harris. 2330: Assessment complete, see flow sheet. VSS. 0500: Reassessment complete, see flow sheet. VSS. 0705: Report given to DEBBIE Nguyễn This note was completed by: Constantine Potter RN [facility] PLAN OF CAREon 04-03-2018 PLAN OF CARE HNO ID: [id number] Author: Radha Castellanos (Pharmacist) Service: Pharmacy Author Type: Pharmacist Type: Plan of Care Filed: 04/04/2018 7:22 AM Note Text: MEDICATION HISTORY AND MEDICATION RECONCILIATION Patient Name:.Sarina Lovett : 1945 Source of history:Patient: Reliability of source: Appears reliable, although not clear on how she takes all of her medications and Pharmacy records: [facility] in [place] Medication Nonadherence Identified: patient not clear on all directions for medications. The above information represents the best possible medication history: Yes Reconciliation completed? Yes All [employer] medications addressed by LIP. No med changes at this time, but will need reconciliation at discharge. Additional comments: Added albuterol, amlodipine, furosemide Adjusted dose of glimepiride, lisinopril Removed iron Allergies: ALLERGIES Allergen Reactions - Statins [Other] Caused severe muscular weakness. - Sulfa (Sulfonamide * Caused severe generalized swelling. - Tape [Other] Severe skin reaction; needs to use paper tape Preferred Pharmacy: [facility] in [place] Current [employer] Medications: Prior to Admission medications as of 03/24/182030 Medication Sig Last Dose Taking carvedilol (COREG) 25 mg tablet Take 25 mg by mouth twice daily with meals. Yes glimepiride (AMARYL) 1 mg tablet Take 2 mg by mouth daily with breakfast. Yes glimepiride (AMARYL) 1 mg tablet Take 1 mg by mouth daily with dinner. Yes lisinopril (ZESTRIL, PRINIVIL) 20 mg tablet Take 30 mg by mouth once daily. Yes furosemide (LASIX) 20 mg tablet Take 20 mg by mouth once daily. Yes amLODIPine (NORVASC) 5 mg tablet Take 5 mg by mouth once daily. Yes ALBUTEROL INHALATION Inhale 2 Puffs as instructed four times daily as needed (wheezing/shortness of breath). Yes buPROPion XL (WELLBUTRIN XL) 150 mg 24 hr tablet Take 150 mg by mouth once daily. 03/24/2018 at Unknown time Yes VITAMIN D 50,000 unit capsule Take 50,000 Units by mouth once each week. Patient unsure of dose 03/24/2018 Yes clopidogrel (PLAVIX) 75 mg tablet Take 1 tablet by mouth once daily. Patient taking differently: Take 75 mg by mouth once daily. Pt unsure if she is taking 03/24/2018 Yes aspirin 81 mg chewable tablet Take 81 mg by mouth once daily. 03/24/2018 Yes sertraline (ZOLOFT) 100 mg tablet Take 150 mg by mouth once daily. 03/24/2018 Yes omeprazole (PRILOSEC) 20 mg capsule Take 20 mg by mouth once daily. 03/24/2018 Yes Radha Castellanos, Pharmacist April 04, 2018 7:19 AM [facility] PROGRESSon 04-03-2018 Protein mass conc HNO ID: [id number] Author: Jose Jack Service: Pulmonary Disease Author Type: Physician Type: Progress Notes Filed: 04/03/2018 3:31 PM Note Text: Pulmonary/Critical Care Progress Note PATIENT NAME: Sarina Lovett DATE of SERVICE: April 03, 2018 TIME of SERVICE: 3:28 PM Admitting Physician: Andree Peters Attending Physician: Mary Thao S: Feels a little better today with improvement in her shortness of breath and no significant cough. Denies chest pain. Tolerated CPAP well last night and now on nasal cannula. Current hospital medications: milrinone 20 mg in D5W 100 mL (PRIMACOR) 0.25 mcg/kg/min INTRAVENOUS CONTINUOUS hydrALAZINE 25 mg tab(s) (APRESOLINE) 25 mg ORAL q 8 H perflutren lipid microspheres 1.1 mg/mL 1.3 mL injection (DEFINITY) 1.3 mL INTRAVENOUS DIRECTED PRN furosemide 40 mg injection (LASIX) 40 mg INTRAVENOUS DAILY sodium bicarbonate 325 mg tab(s) 325 mg ORAL TID ciprofloxacin 400 mg in D5W 200 mL (CIPRO) 400 mg INTRAVENOUS q 24 HR metroNIDAZOLE 500 mg PREMIX piggyback (FLAGYL) 500 mg INTRAVENOUS q 8 H carvedilol 3.125 mg tab(s) (COREG) 3.125 mg ORAL BID w MEALS heparin 5,000 Units injection 5,000 Units SUBCUTANEOUS q 12 H acetaminophen 500-1,000 mg tab(s) (TYLENOL) 500-1,000 mg ORAL q 6 H PRN oxyCODONE IR 5-10 mg tab(s) (ROXICODONE) 5-10 mg ORAL q 6 H PRN ipratropium-albuterol 3 mL nebulizer solution (DUONEB) 3 mL INHALATION q 4 H while awake atorvastatin 80 mg tab(s) (LIPITOR) 80 mg ORAL AT BEDTIME [MAR Hold due to Transfer] nitroglycerin sublingual 0.4 mg tab(s) (NITROQUICK) 0.4 mg SUBLINGUAL PRN prochlorperazine 5 mg injection (COMPAZINE) 5 mg INTRAVENOUS q 6 H PRN insulin lispro injection (rapid acting) (HumaLOG) SUBCUTANEOUS w MEALS AND HS aspirin 81 mg chewable tab(s) 81 mg ORAL DAILY sertraline 150 mg tab(s) (ZOLOFT) 150 mg ORAL DAILY clopidogrel 75 mg tab(s) (PLAVIX) 75 mg ORAL DAILY buPROPion XL 150 mg tab(s) (WELLBUTRIN XL) 150 mg ORAL DAILY NaCl 0.9% 3-5 mL 3-5 mL INTRAVENOUS q 12 H polyethylene glycol 3350 17 g packet (MIRALAX, GLYCOLAX) 17 g ORAL DAILY PRN bisacodyl 10 mg suppository (DULCOLAX) 10 mg RECTAL DAILY PRN melatonin 1 mg tab(s) 1 mg ORAL HS PRN dextrose 40 % 15 g 15 g ORAL PRN glucagon 1 mg injection (GLUCAGEN) 1 mg INTRAMUSCULAR PRN dextrose 50% in water 25 mL syringe 12.5 g INTRAVENOUS PRN pantoprazole DR 20 mg tab(s) (PROTONIX) 20 mg ORAL DAILY (6 AM) O: PHYSICAL EXAMINATION: Blood pressure 141/50, pulse 77, temperature 36.7 ?C (98.1 ?F), temperature source Oral, resp. rate 20, height 170.2 cm (5' 7.01 ), weight 80.2 kg (176 lb 12.9 oz), SpO2 96 %., Body mass index is 27.69 kg/m?. GENERAL: Cooperative, pleasant, in mild respiratory distress. NECK: no jugulovenous distention, supple LUNGS: Decreased breath sounds to both lung aguilar with soft basilar crackles. CARDIAC: Regular rate and rhythm; no murmurs ABDOMEN: Abdomen soft, non-tender. BS normal. EXTREMITIES: No edema. LABORATORY: CBC, Coags, BMP, Mg, Phos Recent Labs 04/03/18 0354 04/02/18 0744 04/02/18 0612 04/01/18 0732 04/01/18 0606 WBC 6.77 8.23 -- 6.53 -- HB 7.5* 8.2* -- 7.5* -- HCT 23.0* 24.9* -- 22.2* -- PLT 207 192 -- 151 -- NA 138 137 135 134 -- 133 K 3.8 3.9 4.1 4.1 -- 4.5 CHLOR 97* 97* 97* 97* -- 96* CO2 24 23 20* 19* -- 19* BUN 75* 75* 76* 77* -- 88* CREAT 2.22* 2.21* 2.29* 2.33* -- 3.28* GLUC 105* 107* 127* 115* -- 91 CA 9.1 9.2 8.8 8.8 -- 8.5 P 5.2* -- 5.0* -- 5.9* Liver Function, Amylase, AND Lipase Recent Labs 04/03/18 0354 04/02/18 0744 04/02/18 0612 TPROT -- 6.6 -- ALB 3.2* 3.3* 3.4* ALT -- 24 -- AST -- 26 -- ALKPHOS -- 91 -- TBILI -- 0.3 -- Cardiac Enzymes Recent Labs 04/02/18 1825 04/02/18 1044 04/02/18 0744 TROPT 9.390* 9.520* 10.090* ABGs Recent Labs 04/02/18 0740 PH 7.33* PCO2 40 PO2 81 BE NEG 5 HCO3 20* CO2CT 22 O2AD 45.0 IMAGING STUDIES: Her chest x-ray was reviewed and showed an improvement in the bilateral infiltrates ASSESSMENT AND PLAN: Acute hypoxic respiratory failure: Likely secondary to pulmonary edema secondary to acute non-Q-wave WI. Clinically and radiographically improving with current treatment. Improved blood pressure and oxygenation. We will rest off CPAP on nasal cannula as tolerated. Continue with blood pressure management, CHF management and diuresis and wean down FiO2 as tolerated. Doubt an acute infectious process given the lack of suggestive symptoms and improvement in her pulmonary infiltrates without antibiotics coverage. SIGNATURE: Jose Jack MD DATE: April 03, 2018 TIME: 3:28 PM This note was partially created using voice recognition software and is inherently subject to errors including those of syntax and sound-alike substitutions which may escape proofreading. In such instances, original meaning may be extrapolated by contextual derivation. ?? [facility] Protein mass conc HNO ID: [id number] Author: Joy Browne Service: Cardiovascular Disease Author Type: Physician Type: Progress Notes Filed: 04/03/2018 12:48 PM Note Text: Reviewed cxr It is better, less congestions Finding showed improvement of heart failure. Continue with milrinone for the next 24hrs. I hope nephrology will not dc diuretic again. We need to keep her on dry side Normal [facility] Protein mass conc HNO ID: [id number] Author: Joy Browne Service: Cardiovascular Disease Author Type: Physician Type: Progress Notes Filed: 04/03/2018 12:44 PM Note Text: INPATIENT PROGRESS NOTES Patient Name: Sarina Lovett SERVICE DATE: 04/03/2018 SERVICE TIME: 12:37 PM PRIMARY SERVICE:Cardiology INTERVAL HPI: [place] more sob last night. Was transferred to [facility]. This morning, she is feeling better. PERTINENT ROS: GENERAL: No weight loss, malaise or fevers., SEE HPI RESPIRATORY: Negative for cough, wheezing or shortness of breath. CARDIOVASCULAR: Negative for chest pain, leg swelling or palpitations. GI: Negative for abdominal discomfort, blood in stools or black stools or change in bowel habits MUSCULOSKELETAL: Negative for joint pain or swelling, back pain or muscle pain. All other reviewed and negative other than HPI. MEDICATIONS: Current hospital medications: milrinone 20 mg in D5W 100 mL (PRIMACOR) 0.25 mcg/kg/min INTRAVENOUS CONTINUOUS hydrALAZINE 25 mg tab(s) (APRESOLINE) 25 mg ORAL q 8 H perflutren lipid microspheres 1.1 mg/mL 1.3 mL injection (DEFINITY) 1.3 mL INTRAVENOUS DIRECTED PRN furosemide 40 mg injection (LASIX) 40 mg INTRAVENOUS DAILY sodium bicarbonate 325 mg tab(s) 325 mg ORAL TID ciprofloxacin 400 mg in D5W 200 mL (CIPRO) 400 mg INTRAVENOUS q 24 HR metroNIDAZOLE 500 mg PREMIX piggyback (FLAGYL) 500 mg INTRAVENOUS q 8 H carvedilol 3.125 mg tab(s) (COREG) 3.125 mg ORAL BID w MEALS heparin 5,000 Units injection 5,000 Units SUBCUTANEOUS q 12 H acetaminophen 500-1,000 mg tab(s) (TYLENOL) 500-1,000 mg ORAL q 6 H PRN oxyCODONE IR 5-10 mg tab(s) (ROXICODONE) 5-10 mg ORAL q 6 H PRN ipratropium-albuterol 3 mL nebulizer solution (DUONEB) 3 mL INHALATION q 4 H while awake atorvastatin 80 mg tab(s) (LIPITOR) 80 mg ORAL AT BEDTIME [MAR Hold due to Transfer] nitroglycerin sublingual 0.4 mg tab(s) (NITROQUICK) 0.4 mg SUBLINGUAL PRN prochlorperazine 5 mg injection (COMPAZINE) 5 mg INTRAVENOUS q 6 H PRN insulin lispro injection (rapid acting) (HumaLOG) SUBCUTANEOUS w MEALS AND HS aspirin 81 mg chewable tab(s) 81 mg ORAL DAILY sertraline 150 mg tab(s) (ZOLOFT) 150 mg ORAL DAILY clopidogrel 75 mg tab(s) (PLAVIX) 75 mg ORAL DAILY buPROPion XL 150 mg tab(s) (WELLBUTRIN XL) 150 mg ORAL DAILY NaCl 0.9% 3-5 mL 3-5 mL INTRAVENOUS q 12 H polyethylene glycol 3350 17 g packet (MIRALAX, GLYCOLAX) 17 g ORAL DAILY PRN bisacodyl 10 mg suppository (DULCOLAX) 10 mg RECTAL DAILY PRN melatonin 1 mg tab(s) 1 mg ORAL HS PRN dextrose 40 % 15 g 15 g ORAL PRN glucagon 1 mg injection (GLUCAGEN) 1 mg INTRAMUSCULAR PRN dextrose 50% in water 25 mL syringe 12.5 g INTRAVENOUS PRN pantoprazole DR 20 mg tab(s) (PROTONIX) 20 mg ORAL DAILY (6 AM) PHYSICAL EXAM: Patient Vitals for the past 24 hrs: BP Temp Temp src Pulse Resp SpO2 Weight 04/03/18 1200 - 36.7 ?C (98.1 ?F) Oral - - - - 04/03/18 1000 142/51 - - 63 20 98 % - 04/03/18 0900 (!) 132/48 - - 70 20 98 % - 04/03/18 0800 154/52 36.6 ?C (97.9 ?F) Oral 64 15 98 % - 04/03/18 0706 - - - 67 22 - - 04/03/18 0700 155/58 - - 66 22 98 % - 04/03/18 0600 142/52 - - 63 15 98 % - 04/03/18 0500 135/54 - - 60 17 100 % 80.2 kg (176 lb 12.9 oz) 04/03/18 0400 (!) 145/47 36.5 ?C (97.7 ?F) Axillary (!) 58 16 99 % - 04/03/18 0323 - - - (!) 56 14 100 % - 04/03/18 0300 (!) 131/47 - - (!) 57 15 98 % - 04/03/18 0200 (!) 129/48 - - (!) 58 14 98 % - 04/03/18 0100 (!) 134/47 - - (!) 59 16 99 % - 04/03/18 0000 (!) 134/49 - - (!) 59 15 98 % - 04/02/18 2330 - 36.6 ?C (97.9 ?F) Axillary - - - - 04/02/18 2323 - - - (!) 58 14 99 % - 04/02/18 2300 142/53 - - 61 16 100 % - 04/02/18 2245 (!) 142/48 - - 62 16 100 % - 04/02/18 2230 143/54 - - 64 16 100 % - 04/02/18 2215 150/56 - - 63 16 100 % - 04/02/18 2200 148/57 - - 65 17 100 % - 04/02/18 2145 153/56 - - 69 19 100 % - 04/02/18 2130 (!) 137/124 - - 65 23 100 % - 04/02/18 2100 159/52 - - 66 17 100 % - 04/02/182029 162/58 - - 64 16 100 % - 04/02/18 2015 162/57 - - 66 17 100 % - 04/02/182001 - - - 65 18 100 % - 04/02/181999 165/62 36.7 ?C (98.1 ?F) Axillary 66 19 100 % - 04/02/18 1953 - - - 63 18 99 % - 04/02/18 1930 143/54 - - 65 16 98 % - 04/02/18 1900 154/51 - - 63 15 98 % - 04/02/18 1800 147/50 - - 62 16 98 % - 04/02/18 1700 157/52 - - 68 18 97 % - 04/02/18 1600 162/70 - Oral 73 18 99 % - 04/02/18 1539 - - - 75 23 - - 04/02/18 1527 - - - 72 20 100 % - 04/02/18 1500 179/66 - - 69 18 100 % - 04/02/18 1400 177/59 - - 69 17 99 % - 04/02/18 1300 171/68 - - 79 19 99 % - Body mass index is 27.69 kg/m?. GENERAL: healthy, alert, no distress, cooperative SKIN: Skin color, texture, turgor normal. No rashes or lesions. NECK: no jugulovenous distention, no carotid bruits, carotid pulse normal contour, supple LUNGS: Lungs clear to auscultation. Good diaphragmatic excursion. CARDIAC: normal S1 and S2; no rubs, murmurs, or gallops ABDOMEN: Abdomen soft, non-tender. BS normal. No masses or organomegaly. EXTREMITIES: Extremities normal. No deformities, edema, clubbing or skin discoloration. DATA: Diagnostic tests reviewed for today's visit: CBC: Recent Labs 04/03/18 0354 WBC 6.77 RBC 2.63* HB 7.5* HCT 23.0* PLT 207 MCV 87.5 MCH 28.5 MPV 10.9 Coags: No results for input(s): INR, APTT in the last 24 hours. Invalid input(s): PT BMP: Recent Labs 04/03/18 0354 NA 138 137 K 3.8 3.9 CHLOR 97* 97* CO2 24 23 BUN 75* 75* CREAT 2.22* 2.21* GLUC 105* 107* CMP: Recent Labs 04/03/18 0354 NA 138 137 K 3.8 3.9 CHLOR 97* 97* CO2 24 23 BUN 75* 75* CREAT 2.22* 2.21* GLUC 105* 107* CA 9.1 9.2 ANION 17 17 Cardiac Enzymes: Recent Labs 04/02/18 1825 TROPT 9.390* Liver Function, Amylase, Lipase: Recent Labs 04/03/18 0354 ALB 3.2* ASSESSMENT AND PLAN: (N17.9) JULIETA (acute kidney injury) ([facility]) (E87.5) Hyperkalemia (R74.8) Elevated troponin (I21.4) NSTEMI (non-ST elevated myocardial infarction) ([facility]) (I20.0) Unstable angina pectoris ([facility]) (I25.110) Atherosclerosis of coronary artery of nez perce heart with unstable angina pectoris, unspecified vessel or lesion type ([facility]) (I10) Essential hypertension, benign (I16.1) Hypertensive emergency (F99) Psychiatric disorder (Z72.0) Tobacco abuse (I50.9) Acute decompensated heart failure ([facility]) Cxr suggestive of pneumonia, repeat cxr pa and lateral There might be heart failure, with renal failure, will try milrinone over the next 24 hrs, continue with diuretic. There is no clinical evidence of mR. Echo did not show mitral regurgitation. I may add later dopamine in renal dose. HG is low considering her heart failure, she should get one unit of blood. For htn, will add hydralazine. SIGNATURE: Joy Browne MD DATE: April 03, 2018 TIME: 12:37 PM [facility] Protein mass conc HNO ID: [id number] Author: Kinsey Dumas MD Service: Hospital Medicine Author Type: Resident Type: Progress Notes Filed: 04/03/2018 11:22 AM Note Text: Attestation signed by Mary Thao at 04/03/2018 12:42 PM (Updated) IM ATTENDING NOTES: ? I have seen and evaluated the patient and discussed the case with the resident physician. I agree with the assessment and plan as documented in the resident?s note. Discussed with dr. Browne, transfuse with one unit of PRBC. ? Mary Thao MD 04/03/18 HOSPITAL MEDICINE [facility] PROGRESS NOTE NAME: Sarina Lovett SERVICE DATE: 04/03/2018 SERVICE TIME: 9:16 AM ASSESSMENT AND PLAN Sarina Lovett is a 73 year old female with PMH of CAD (CABG in 2005, PCI to RCA in 2000 and 2015), aortic stenosis (s/p replacement in 2005 with #[address] [employer] Bioprosthetic valve), HTN, HLD, DM who presented with chest pain and elevated troponin, found to have NSTEMI. Cath done on 03/26 resulting in 2 DAVID in SVG to RCA. Patient transferred to [facility] on 03/29, back to [facility] on 04/02 for increased SOB and significantly elevated troponin. Acute hypoxic respiratory failure Likely COPD; history of tobacco abuse Suspect worsening respiratory status due to CHF and possible underlying COPD. Required CPAP again on 04/02 and was transferred back to [facility]. CXR with significant pulmonary edema R>L, restarted on lasix. Back on NC 2L on 04/03. - check 2V CXR to assess for possible pneumonia - supplemental O2 PRN; CPAP PRN for worsening respiratory status - incentive spirometry - duonebs q4h while awake - pulmonology consulted, appreciate input Acute on chronic HFrEF Echo on 03/25 with EF50% and grade I diastolic dysfunction. Repeat echo on 04/02 with EF56%, no significant change despite worsening clinical status. Net negative 2L on 04/02 after 40mg IV lasix with improved respiratory status. - continue coreg 3.125mg BID, ACEi on hold for JULIETA - IV lasix 40mg daily - started on IV milrinone 04/03/[address] Browne - cardiology following, appreciate input NSTEMI (non-ST elevated myocardial infarction) (HCC) POA: Yes Chest pain POA: Yes Coronary atherosclerosis POA: Yes Patient with significant CAD history, presented with chest pain and elevated troponin, 2 DAVID in SVG to RCA on 03/26. Started on asa/plavix. Chest pain has resolved. - continue plavix / asa, lipitor 80mg daily, coreg 3.125mg BID Elevated Troponin Patient presented with NSTEMI, Trop T up to 2.16 prior to cath. Rechecked trop with worsening respiratory status on 04/02 and had increased to 10.09. Per cardiology, thought to be related to post-PCI vs pulmonary edema. Patient without chest pain. - stop nitro ggt Spleen lesions On CT, multiple lesions were seen which were new / changed from prior exams (did see splenic cysts on prior exams). - recommend MRI to evaluate further, would suggest as outpatient or once clinical status improves Sigmoid Diverticulitis Patient with history of diverticulitis, developed worsening abd pain and diarrhea while admitted. C diff negative. CT abd with sigmoid diverticulitis - on cipro, flagyl (day 4 today), will change to PO if tolerates diet - advance to GI soft diet - per GI, needs low fiber diet x2 weeks, then high fiber diet - will need colonoscopy in 8 weeks Essential hypertension, benign POA: Yes Presented with SBP in 200s, improved during admission. BP borderline low, decreased coreg and improved on 04/03. - coreg 3.125mg BID - started on hydralazine 25mg TID per Dr. Browne Contrast dye induced nephropathy POA: No Acute renal failure superimposed on stage 3 chronic kidney disease (HCC) POA: No Baseline Cr 1.3-1.5, increased during admission to max of 3.6 thought to be due to contrast as well as hypotension. Improving / stable to 2.2 on 04/03/2018. Renal ultrasound without hydronephrosis. - sodium bicarb decreased to 325mg TID - nephrology following, appreciate input Anemia Patient with chronic anemia, baseline Hgb 9-11 range; normocytic. Ferritin was normal, thought to be anemia of chronic disease. Patient without melena or hematochezia. Hgb stable at 7.5 on 04/03. - continue to monitor - will need outpatient colonoscopy as above T2DM ? On glimepiride 1mg BID at home, last A1c 9.3% in 08/2016 at [facility]. Repeat A1c on admission 6.0%. - SSI1 - holding home glimepiride due to JULIETA Tobacco abuse POA: Yes 50 pack-year history, encourage cessation. Psychiatric disorder POA: Yes Patient with history of depression, significant social stressors. - continue zoloft 150mg daily, wellbutrin 150mg daily VTE Prophylaxis - SQH 5000U BID Dispo - continue to monitor in [facility] SUBJECTIVE INTERVAL HPI: Ms. Lovett feels well this morning. She feels like her breathing is much better and denies chest pain, palpitations. MEDICATIONS: Reviewed OBJECTIVE VITAL SIGNS (last 24hrs min/max): Temp Av.7 ?C (98 ?F) Min: 36.5 ?C (97.7 ?F) Max: 36.8 ?C (98.2 ?F) Pulse Av.7 Min: 56 Max: 95 Cuff BP Min: 129/48 Max: 183/72 Pain Score: 0/10 PHYSICAL EXAM: General: Alert, no distress, cooperative Lungs: bibasilar crackles present Cardiac: NL S1 and S2, + systolic murmur Abdomen: Non-tender, BS normal Extremities: No edema or skin discoloration Neuro: Grossly normal cognition, motor function DATA: Diagnostic tests reviewed for today's visit: Most recent labs Most recent EKG Most recent image Most recent culture Kinsey Dumas MD Family Medicine PGY2 April 03, 2018 [facility] Renal Function Panelon 04-03 Albumin mass conc 3.2 g/dL Low 3.5-5.0 [facility] Comment on above: Performed By: #### P TT, NTBNP, HSTNT, CBCDIF, PT, CKCKMB, CMP #### [place] [phone] Anion gap molar conc 17 mmol/L Normal 9-18 [facility] Comment on above: Performed By: #### P TT, NTBNP, HSTNT, CBCDIF, PT, CKCKMB, CMP #### [place] [phone] Calcium mass conc 9.1 mg/dL Normal 8.5-10.5 [facility] Comment on above: Performed By: #### P TT, NTBNP, HSTNT, CBCDIF, PT, CKCKMB, CMP #### [place] [phone] Chloride molar conc 97 mmol/L Low 98-110 [facility] Comment on above: Performed By: #### P TT, NTBNP, HSTNT, CBCDIF, PT, CKCKMB, CMP #### [place] [phone] CO2 molar conc 24 mmol/L Normal 23-32 [facility] Comment on above: Performed By: #### P TT, NTBNP, HSTNT, CBCDIF, PT, CKCKMB, CMP #### [place] [phone] Creatinine mass conc 2.22 mg/dL High 0.70-1.40 [facility] Comment on above: Performed By: #### P TT, NTBNP, HSTNT, CBCDIF, PT, CKCKMB, CMP #### [place] [phone] GFR/1.73 sq M predicted among non-blacks MDRD vol rate/area (S/P/Bld) 22 . Low >60 [facility] Comment on above: Performed By: #### P TT, NTBNP, HSTNT, CBCDIF, PT, CKCKMB, CMP #### [place] [phone] Glucose mass conc 105 mg/dL High 65-100 [facility] Comment on above: Performed By: #### P TT, NTBNP, HSTNT, CBCDIF, PT, CKCKMB, CMP #### [place] [phone] Phosphate mass conc 5.2 mg/dL High 2.5-4.5 [facility] Comment on above: Performed By: #### P TT, NTBNP, HSTNT, CBCDIF, PT, CKCKMB, CMP #### [place] [phone] Potassium molar conc 3.8 mmol/L Normal 3.5-5.0 [facility] Comment on above: Performed By: #### P TT, NTBNP, HSTNT, CBCDIF, PT, CKCKMB, CMP #### [place] [phone] Sodium molar conc 138 mmol/L Normal 132-148 [facility] Comment on above: Performed By: #### P TT, NTBNP, HSTNT, CBCDIF, PT, CKCKMB, CMP #### [place] [address] Type and Screenon 04-03-2018 ABO/RH(D) Positive [facility] Comment on above: Performed By: #### P TT, NTBNP, HSTNT, CBCDIF, PT, CKCKMB, CMP #### [place] [id number] [place] [address] XR CHEST 2V FRONTAL/LATon XR CHEST 2V FRONTAL/LAT * * *Final Report* * * DATE OF EXAM: Apr 03 2018 12:42PM [id number] - XR CHEST 2V FRONTAL/LAT / PROCEDURE REASON: Acute respiratory illness * * * * Physician Interpretation * * * * EXAMINATION: CHEST RADIOGRAPH (2 VIEW FRONTAL and LATERAL) CLINICAL HISTORY: Acute respiratory illness, Shortness of breath, MQ: XC2_5 Comparison: Chest x-ray to 05/17/2018 RESULT: Lines, tubes, and devices: Sternotomy wires. Lungs and pleura: Patchy opacity throughout the right lung have improved since prior study. Left perihilar opacity has also improved. No pneumothorax. Small bilateral pleural effusions right greater than left. Cardiomediastinal silhouette: Stable cardiomegaly. Other: . IMPRESSION: Patchy opacity throughout the right lung, improved. Left perihilar opacity has also improved. Small bilateral pleural effusions, right greater than left. Armature Rewinder: PSCB Transcribe Date/Time: Apr 03 2018 1:36P Dictated by : PHILLIP MONTALVO MD This examination was interpreted and the report reviewed and electronically signed by: PHILLIP MONTALVO MD on Apr 03 2018 1:39PM EST [id number] N [facility] HEALTHon 04-02-2018 [facility] HNO ID: [id number] Author: Nicole (Poultry Trimmer) LALO Hernandez Service: Respiratory Therapy Author Type: Registered Resp Therapist Type: Allied Health Filed: 04/02/2018 10:28 AM Note Text: Patient on using cpap at this time [facility] HNO ID: [id number] Author: Georgia Barnett (Rt) Amanda Rodriguez Service: Radiology Author Type: Commercial Management Accountant Type: Allied Health Filed: 04/02/2018 8:06 AM Note Text: Radiology Service Progress Note PATIENT NAME: Sarina Lovett DATE OF SERVICE: April 02, 2018 TIME: 8:06 AM PATIENT IDENTITY VERIFICATION COMPLETED USING TWO (2) METHODS: Patient confirmed name verbally and ID band matches.. PATIENT GENDER DATA: Female. status: : No status: N/A PATIENT RELEVANT IMPLANT DATA REVIEWED: Not Applicable RADIOLOGY DEPARTMENT: General X-ray: Exam(s) Completed: Chest X-Ray PERIPHERAL IV DATA: Not applicable SIGNED BY: TerrieEricka Rodriguez RT April 02, 2018 8:06 AM [facility] Arterial Blood Gas (FOR WEST USE ONLY)on 04-02-2018 Base Excess Negative [facility] Comment on above: Result Comment: -3 t o 3 Performed By: #### P TT, NTBNP, HSTNT, CBCDIF, PT, CKCKMB, CMP #### [place] [phone] CO2 molar conc 22 mmol/L Normal 22.0-28.0 [facility] Comment on above: Performed By: #### P TT, NTBNP, HSTNT, CBCDIF, PT, CKCKMB, CMP #### [place] [address] Device Nasal Cannula [facility] Comment on above: Performed By: #### P TT, NTBNP, HSTNT, CBCDIF, PT, CKCKMB, CMP #### [place] [phone] Drawsite Right Brachial [facility] Comment on above: Performed By: #### P TT, NTBNP, HSTNT, CBCDIF, PT, CKCKMB, CMP #### [place] [address] HCO3 molar conc (Bld) 20 mmol/L Low 22-26 [facility] Comment on above: Performed By: #### P TT, NTBNP, HSTNT, CBCDIF, PT, CKCKMB, CMP #### [place] [address] O2 Administered 45.0 [facility] Comment on above: Performed By: #### P TT, NTBNP, HSTNT, CBCDIF, PT, CKCKMB, CMP #### [place] [address] Oxygen ppres (Bld) 81 mm Hg Normal 80-100 [facility] Comment on above: Performed By: #### P TT, NTBNP, HSTNT, CBCDIF, PT, CKCKMB, CMP #### [place] [address] Oxygen ppres (Bld) 95 % Normal 90-98 [facility] Comment on above: Performed By: #### P TT, NTBNP, HSTNT, CBCDIF, PT, CKCKMB, CMP #### [place] [address] pCO2 40 mm Hg Normal 35-48 [facility] Comment on above: Performed By: #### P TT, NTBNP, HSTNT, CBCDIF, PT, CKCKMB, CMP #### [place] [address] pH (Bld) 7.33 [pH] Low 7.35-7.45 [facility] Comment on above: Performed By: #### P TT, NTBNP, HSTNT, CBCDIF, PT, CKCKMB, CMP #### [place] [address] CBC and Differentialon 04-02 Abs Baso <0.03 Normal <0.11 [facility] Comment on above: Performed By: #### P TT, NTBNP, HSTNT, CBCDIF, PT, CKCKMB, CMP #### [place] [id number] Abs [place] 0.43 k/uL Normal <0.87 [facility] Comment on above: Performed By: #### P TT, NTBNP, HSTNT, CBCDIF, PT, CKCKMB, CMP #### [place] [id number] Abs Neut 7.37 k/uL Normal 1.45-7.50 [facility] Comment on above: Performed By: #### P TT, NTBNP, HSTNT, CBCDIF, PT, CKCKMB, CMP #### [place] [address] Basophils/100 WBC (Bld) 0.1 % Normal [facility] Comment on above: Performed By: #### P TT, NTBNP, HSTNT, CBCDIF, PT, CKCKMB, CMP #### [place] [address] DTYPE Auto Diff Normal [facility] Comment on above: Performed By: #### P TT, NTBNP, HSTNT, CBCDIF, PT, CKCKMB, CMP #### [place] [address] Eosinophils #/vol (Bld) 0.06 10*3/uL Normal <0.46 [facility] Comment on above: Performed By: #### P TT, NTBNP, HSTNT, CBCDIF, PT, CKCKMB, CMP #### [place] [address] Eosinophils/100 WBC (Bld) 0.7 % Normal [facility] Comment on above: Performed By: #### P TT, NTBNP, HSTNT, CBCDIF, PT, CKCKMB, CMP #### [place] [address] Erythrocyte distribution width Ratio (RBC) 13.7 % Normal 11.5-15.0 [facility] Comment on above: Performed By: #### P TT, NTBNP, HSTNT, CBCDIF, PT, CKCKMB, CMP #### [place] [address] Hematocrit Volume Fraction (Bld) 24.9 % Low 36.0-46.0 [facility] Comment on above: Performed By: #### P TT, NTBNP, HSTNT, CBCDIF, PT, CKCKMB, CMP #### [place] [phone] Hemoglobin mass conc (Bld) 8.2 g/dL Low 11.5-15.5 [facility] Comment on above: Performed By: #### P TT, NTBNP, HSTNT, CBCDIF, PT, CKCKMB, CMP #### [place] [address] Lymphocytes #/vol (Bld) 0.36 10*3/uL Low 1.00-4.00 [facility] Comment on above: Performed By: #### P TT, NTBNP, HSTNT, CBCDIF, PT, CKCKMB, CMP #### [place] [address] Lymphocytes/100 WBC (Bld) 4.4 % Normal [facility] Comment on above: Performed By: #### P TT, NTBNP, HSTNT, CBCDIF, PT, CKCKMB, CMP #### [place] [address] MCH Entitic mass (RBC) 28.6 pG Normal 26.0-34.0 [facility] Comment on above: Performed By: #### P TT, NTBNP, HSTNT, CBCDIF, PT, CKCKMB, CMP #### [place] [address] MCHC mass conc (RBC) 32.9 g/dL Normal 30.5-36.0 [facility] Comment on above: Performed By: #### P TT, NTBNP, HSTNT, CBCDIF, PT, CKCKMB, CMP #### [place] [id number] MCV Entitic volume (RBC) 86.8 fL Normal 80.0-100.0 [facility] Comment on above: Performed By: #### P TT, NTBNP, HSTNT, CBCDIF, PT, CKCKMB, CMP #### [address] Monocytes/100 WBC (Bld) 5.2 % Normal [facility] Comment on above: Performed By: #### P TT, NTBNP, HSTNT, CBCDIF, PT, CKCKMB, CMP #### [place] [id number] Neutrophils/100 WBC (Bld) 89.6 % Normal [facility] Comment on above: Performed By: #### P TT, NTBNP, HSTNT, CBCDIF, PT, CKCKMB, CMP #### [place] [id number] Platelet mean volume Entitic volume (Bld) 10.6 fL Normal 9.0-12.7 [facility] Comment on above: Performed By: #### P TT, NTBNP, HSTNT, CBCDIF, PT, CKCKMB, CMP #### [place] [address] Platelets #/vol (Bld) 192 10*3/uL Normal 150-400 [facility] Comment on above: Performed By: #### P TT, NTBNP, HSTNT, CBCDIF, PT, CKCKMB, CMP #### [place] [id number] RBC #/vol (Bld) 2.87 10*6/uL Low 3.90-5.20 [facility] Comment on above: Performed By: #### P TT, NTBNP, HSTNT, CBCDIF, PT, CKCKMB, CMP #### [address] WBC #/vol (Bld) 8.23 10*3/uL Normal 3.70-11.00 [facility] Comment on above: Performed By: #### P TT, NTBNP, HSTNT, CBCDIF, PT, CKCKMB, CMP #### [place] [id number] CONSULTon 04-02-2018 CONSULT HNO ID: [id number] Author: Jose Jack Service: Pulmonary Disease Author Type: Physician Type: Consults Filed: 04/05/2018 4:13 PM Note Text: [facility] - Consultation SARINA LOVETT : 1945 AGE: 73 SEX: F CSN: [id number] [facility]: [facility] LOCATION: [facility] ATTENDING PHYSICIAN: MAME BOWERS DATE OF CONSULTATION: 04/02/2018 CONSULTING PHYSICIAN: Jose Jack M.D. PULMONARY CONSULTATION REASON FOR CONSULTATION: Respiratory failure. HISTORY OF PRESENT ILLNESS: The patient is a pleasant 73-year-old female, who presented to the hospital originally with crushing chest pain that was not relieved by any measures. The patient was found to have a non-Q-wave WI and was treated for the above. Subsequently, she was transferred to regular medical floor and today morning, she developed significantly worsening shortness of breath with oxygen desaturation and therefore, was placed on CPAP, transferred to [facility] and a Pulmonary consultation was requested. One of the patient's troponin also came back to be elevated. The patient denies any chest pain currently. She reports that she has had the shortness of breath, but no significant cough or sputum production. Denies any fever, chills, or wheezing. PAST MEDICAL HISTORY: Positive for coronary artery disease, aortic valve disease, diabetes mellitus, hyperlipidemia, hypertension, and psychiatric disorders. PAST SURGICAL HISTORY: Positive for cardiac catheterization, aortic valve replacement with 3 CABG vessels, and tubal ligation. ALLERGIES: She is allergic to statins, sulfa, and adhesive tape. MEDICATIONS: Her home medications were reviewed. SOCIAL HISTORY: She continues to smoke approximately 1 pack a day and has been smoking since she was 15 years old. Denies significant alcohol use or drug use. She lives at home. 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 FAMILY HISTORY: Negative for lung disease. REVIEW OF SYSTEMS: Eleven-point review of systems was negative except for above mentioned in the history of present illness. PHYSICAL EXAMINATION: Vital Signs: Temperature was 36.8, heart rate is 70, respiration rate is 26, blood pressure is 167/62, and pulse oximeter was 96% on 4 liters nasal cannula. General: Awake, alert, and oriented x3, appears in moderate respiratory distress. HEENT: Head is normocephalic, atraumatic. Neck: Supple. No JVD or lymphadenopathy. Chest: Shows symmetrical expansion bilaterally. Mild to moderate use of accessory respiratory muscles. On auscultation, there is decreased BS to both lung aguilar with soft bibasilar crackles. No wheezing heard. Heart: Regular rate and rhythm. No murmurs. Abdomen: Soft and nontender. Bowel sounds present. Extremities: No significant edema. No calf tenderness or swelling. GARMENT SORTER: Awake, alert, and oriented x3 without focal deficits. INVESTIGATIONS: CBC showed white count of 8.1, hemoglobin of 7.8, and platelet count of 152. Most recent hemoglobin was 8.2. Electrolyte panel shows a BUN and creatinine of 76 and 2.29 with a bicarbonate of 20. Her chest x-ray from today was reviewed and compared with her prior x-ray. There is new bilateral pulmonary infiltrates suggestive of pulmonary edema. ASSESSMENT AND PLAN: Acute hypoxic respiratory failure: Likely secondary to pulmonary edema secondary to acute non-Q-wave myocardial infarction. The patient appears to be in moderate respiratory distress, but improved respiratory status with noninvasive positive pressure ventilation. I will continue with CPAP and adjust her pressure to 10 cm to use on an as-needed basis. The patient also has relatively elevated blood pressure with evidence of pulmonary edema, but no evidence of volume overload. Discussed with Cardiology Service. We will start the patient on nitroglycerin drip as well as beta-blockers. The patient may need cardiac intervention, but will defer this to Cardiology Service. The above was discussed with the CCU Team and Primary Service as well. Thank you for allowing me to participate in this patient's care. I will follow along her care with you. Critical care time was 33 minutes. Jose Jack M.D. Pulmonary/critical Care :[id number] /[id number] [facility] CONSULT PROGon 04-02-2018 Protein mass conc HNO ID: [id number] Author: Jonathan Mchugh Service: Cardiovascular Disease Author Type: Physician Type: Consult Progress Note Filed: 04/02/2018 10:17 AM Note Text: Cardiology Progress Note Patient Name: Sarina Lovett Today's Date: April 02, 2018 Attending: Andree Peters Subjective: No chest pain , short of breath this morning with respiratory distress sent to CCU Assessment/Plan: NSTEMI (non-ST elevated myocardial infarction) (HCC) POA: Yes Assessment AND Plan: post DAVID x2 to SVG-RCA with acute dypsnea and increased cardiac silhouette with CXR infiltrates suggestive of pulmonary edema -PORSHA echo -IV lasix monitoring cr closely -troponin elevation increased from baseline, may be due to recent PCI vs hypoxia from pulmonary edema Dr Browne to follow, pulmonary consulted Objective: 04/02/18 0502 04/02/18 0543 04/02/18 0718 04/02/18 0750 BP: 167/62 Pulse: 64 75 70 Resp: 25 24 27 Temp: 36.3 ?C (97.3 ?F) TempSrc: Temporal Artery SpO2: 97% 97% 98% Weight: 81.2 kg (179 lb) Height: BP 167/62 Pulse 70 Temp 36.3 ?C (97.3 ?F) (Temporal Artery) Resp 27 Ht 170.2 cm (5' 7.01 ) Wt 81.2 kg (179 lb) SpO2 98% BMI 28.03 kg/m? Intake/Output Summary (Last 24 hours) at 04/02/18 1013 Last data filed at 04/01/182057 Gross per 24 hour Intake 710 ml Output 700 ml Net 10 ml Physical Exam: General appearance: dyspneic and alert Head: elevated JVP Lungs: shortness of breath: creps Heart: RRR without murmur, gallop, or rubs. No ectopy Abdomen: Normal abdominal exam, Abdomen soft, non-tender. Bowel sounds normal. No masses, organomegaly Extremities: no edema Labs: CBC, Coags, BMP, Mg, Phos Recent Labs 04/02/18 0744 04/02/18 0612 04/01/18 0732 04/01/18 0606 03/31/18 0553 WBC 8.23 -- 6.53 -- 8.16 HB 8.2* -- 7.5* -- 7.8* HCT 24.9* -- 22.2* -- 23.5* PLT 192 -- 151 -- 152 NA 135 134 -- 133 128* K 4.1 4.1 -- 4.5 3.2* CHLOR 97* 97* -- 96* 88* CO2 20* 19* -- 19* 14* BUN 76* 77* -- 88* 85* CREAT 2.29* 2.33* -- 3.28* 3.60* GLUC 127* 115* -- 91 132* CA 8.8 8.8 -- 8.5 7.8* MG -- -- -- -- 2.1 P -- 5.0* -- 5.9* 6.2* Liver Function, Amylase, AND Lipase Recent Labs 04/02/18 0744 04/02/18 0612 03/31/18 1435 03/31/18 0553 TPROT 6.6 -- -- 6.3 ALB 3.3* 3.4* -- 3.2* ALT 24 -- -- 20 AST 26 -- -- 29 ALKPHOS 91 -- -- 80 TBILI 0.3 -- -- 0.2 LACT -- -- 0.6 -- Cardiac Enzymes Recent Labs 04/02/18 0744 TROPT 10.090* Medications: Current hospital medications: perflutren lipid microspheres 1.1 mg/mL 1.3 mL injection (DEFINITY) 1.3 mL INTRAVENOUS DIRECTED PRN furosemide 40 mg injection (LASIX) 40 mg INTRAVENOUS ONCE [MAR Hold due to Transfer] calcium acetate 1,334 mg tab(s) (CALPHRON) 1,334 mg ORAL TID w MEALS [MAR Hold due to Transfer] ciprofloxacin 400 mg in D5W 200 mL (CIPRO) 400 mg INTRAVENOUS q 24 HR [MAR Hold due to Transfer] metroNIDAZOLE 500 mg PREMIX piggyback (FLAGYL) 500 mg INTRAVENOUS q 8 H [MAR Hold due to Transfer] carvedilol 3.125 mg tab(s) (COREG) 3.125 mg ORAL BID w MEALS [MAR Hold due to Transfer] heparin 5,000 Units injection 5,000 Units SUBCUTANEOUS q 12 H [MAR Hold due to Transfer] sodium bicarbonate 1,300 mg tab(s) 1,300 mg ORAL TID [MAR Hold due to Transfer] acetaminophen 500-1,000 mg tab(s) (TYLENOL) 500-1,000 mg ORAL q 6 H PRN [MAR Hold due to Transfer] oxyCODONE IR 5-10 mg tab(s) (ROXICODONE) 5-10 mg ORAL q 6 H PRN [MAR Hold due to Transfer] ipratropium-albuterol 3 mL nebulizer solution (DUONEB) 3 mL INHALATION q 4 H while awake [APR Hold due to Transfer] atorvastatin 80 mg tab(s) (LIPITOR) 80 mg ORAL AT BEDTIME [APR Hold due to Transfer] nitroglycerin sublingual 0.4 mg tab(s) (NITROQUICK) 0.4 mg SUBLINGUAL PRN [APR Hold due to Transfer] prochlorperazine 5 mg injection (COMPAZINE) 5 mg INTRAVENOUS q 6 H PRN [APR Hold due to Transfer] insulin lispro injection (rapid acting) (HumaLOG) SUBCUTANEOUS w MEALS AND HS [APR Hold due to Transfer] aspirin 81 mg chewable tab(s) 81 mg ORAL DAILY [APR Hold due to Transfer] sertraline 150 mg tab(s) (ZOLOFT) 150 mg ORAL DAILY [APR Hold due to Transfer] clopidogrel 75 mg tab(s) (PLAVIX) 75 mg ORAL DAILY [APR Hold due to Transfer] buPROPion XL 150 mg tab(s) (WELLBUTRIN XL) 150 mg ORAL DAILY [APR Hold due to Transfer] NaCl 0.9% 3-5 mL 3-5 mL INTRAVENOUS q 12 H [APR Hold due to Transfer] ondansetron 4 mg tab(s) (ZOFRAN) 4 mg ORAL q 6 H PRN [APR Hold due to Transfer] ondansetron (PF) 4 mg injection (ZOFRAN) 4 mg INTRAVENOUS q 6 H PRN [APR Hold due to Transfer] polyethylene glycol 3350 17 g packet (MIRALAX, GLYCOLAX) 17 g ORAL DAILY PRN [APR Hold due to Transfer] bisacodyl 10 mg suppository (DULCOLAX) 10 mg RECTAL DAILY PRN [APR Hold due to Transfer] melatonin 1 mg tab(s) 1 mg ORAL HS PRN [APR Hold due to Transfer] dextrose 40 % 15 g 15 g ORAL PRN [APR Hold due to Transfer] glucagon 1 mg injection (GLUCAGEN) 1 mg INTRAMUSCULAR PRN [APR Hold due to Transfer] dextrose 50% in water 25 mL syringe 12.5 g INTRAVENOUS PRN [APR Hold due to Transfer] pantoprazole DR 20 mg tab(s) (PROTONIX) 20 mg ORAL DAILY (6 AM) Jonathan Mchugh MD Cardiology Today's Date: April 02, 2018 Time: 10:13 AM Normal [facility] Comp Metabolic Panelon 04-02 Albumin mass conc 3.3 g/dL Low 3.5-5.0 [facility] Comment on above: Performed By: #### P TT, NTBNP, HSTNT, CBCDIF, PT, CKCKMB, CMP #### [place] [phone] ALP enzyme act/vol 91 U/L Normal 34-123 [facility] Comment on above: Performed By: #### P TT, NTBNP, HSTNT, CBCDIF, PT, CKCKMB, CMP #### [place] [phone] ALT enzyme act/vol 24 U/L Normal 0-45 [facility] Comment on above: Performed By: #### P TT, NTBNP, HSTNT, CBCDIF, PT, CKCKMB, CMP #### [place] [phone] Anion gap molar conc 18 mmol/L Normal 9-18 [facility] Comment on above: Performed By: #### P TT, NTBNP, HSTNT, CBCDIF, PT, CKCKMB, CMP #### [place] [phone] AST enzyme act/vol 26 U/L Normal 7-40 [facility] Comment on above: Performed By: #### P TT, NTBNP, HSTNT, CBCDIF, PT, CKCKMB, CMP #### [place] [phone] Bilirubin mass conc 0.3 mg/dL Normal 0.2-1.3 [facility] Comment on above: Performed By: #### P TT, NTBNP, HSTNT, CBCDIF, PT, CKCKMB, CMP #### [place] [phone] Calcium mass conc 8.8 mg/dL Normal 8.5-10.5 [facility] Comment on above: Performed By: #### P TT, NTBNP, HSTNT, CBCDIF, PT, CKCKMB, CMP #### [place] [phone] Chloride molar conc 97 mmol/L Low 98-110 [facility] Comment on above: Performed By: #### P TT, NTBNP, HSTNT, CBCDIF, PT, CKCKMB, CMP #### [place] [phone] CO2 molar conc 20 mmol/L Low 23-32 [facility] Comment on above: Performed By: #### P TT, NTBNP, HSTNT, CBCDIF, PT, CKCKMB, CMP #### [place] [phone] Creatinine mass conc 2.29 mg/dL High 0.70-1.40 [facility] Comment on above: Performed By: #### P TT, NTBNP, HSTNT, CBCDIF, PT, CKCKMB, CMP #### [place] [id number] eGFR- Amer. 25 Low >60 [facility] Comment on above: Performed By: #### P TT, NTBNP, HSTNT, CBCDIF, PT, CKCKMB, CMP #### [address] GFR/1.73 sq M predicted among non-blacks MDRD vol rate/area (S/P/Bld) 21 . Low >60 [facility] Comment on above: Performed By: #### P TT, NTBNP, HSTNT, CBCDIF, PT, CKCKMB, CMP #### [place] [phone] Glucose mass conc 127 mg/dL High 65-100 [facility] Comment on above: Performed By: #### P TT, NTBNP, HSTNT, CBCDIF, PT, CKCKMB, CMP #### [place] [phone] Potassium molar conc 4.1 mmol/L Normal 3.5-5.0 [facility] Comment on above: Performed By: #### P TT, NTBNP, HSTNT, CBCDIF, PT, CKCKMB, CMP #### [place] [phone] Protein mass conc 6.6 g/dL Normal 6.0-8.4 [facility] Comment on above: Performed By: #### P TT, NTBNP, HSTNT, CBCDIF, PT, CKCKMB, CMP #### [place] [phone] Sodium molar conc 135 mmol/L Normal 132-148 [facility] Comment on above: Performed By: #### P TT, NTBNP, HSTNT, CBCDIF, PT, CKCKMB, CMP #### [place] [phone] Urea nitrogen mass conc 76 mg/dL High 8-25 [facility] Comment on above: Performed By: #### P TT, NTBNP, HSTNT, CBCDIF, PT, CKCKMB, CMP #### [place] [phone] ECG COMPLETEon 04-02-2018 ECG COMPLETE NAME : SARINA LOVETT PID : [id number] : 1945 Gender : Female Race : ORD : [id number] Procedure Date : Apr 02 2018 07:40:14 Edit Date : Apr 03 2018 08:06:05 Diagnosis:SINUS RHYTHM RIGHT BUNDLE BRANCH BLOCK LVH WITH IVCD AND SECONDARY REPOL ABNRM Abnormal ECG Confirmed by ABBY BURT M.D. ([id number]) on 04/03/2018 8:03:47 AM Ventricular Rate : 71 BPM Atrial Rate : 90 BPM P-R Interval : 180 ms QRS Duration : 184 ms Q-T Interval : 512 ms QTC Calculation(Bezet) : 556 ms P [place] : 25 degrees R [place] : -62 degrees T [place] : 98 degrees Test Reason : OPEN Location : 400 : [facility] [place] [address] Overread By : ABBY BURT M.D. Edited By : ABBY BURT M.D. Referred By : , Acquired by : BETSEY FRASER [facility] NURSING PROGon 04-02-2018 Protein mass conc HNO ID: [id number] Author: Delma CabreraRn) DEBBIE Garsia Service: Critical Care Author Type: Registered Nurse Type: Nursing Progress Note Filed: 04/02/2018 5:06 PM Note Text: 1100Transferred from floor for neew sob/fluid overload.Son on arrival at rest and with movement. Verbal order rec for browning for diuretic therapy from . ECCHO to be repeated.NTG for htn per MD.. Patient and family aware of plan of care. Will use intermittent CPAP for SOB.. 1500Resting with no distress present. 1700States relief of nausea after meds. [facility] Protein mass conc HNO ID: [id number] Author: Xiomy CabreraRn) DEBBIE Bermudez Service: (none) Author Type: Registered Nurse Type: Nursing Progress Note Filed: 04/02/2018 8:58 AM Note Text: Nursing Progress Note Patient Name: Sarina Lovett Patient Location: [address] [address]50: Report called to Natalie brush [facility]. This note was completed by: Xiomy Bermudez RN [facility] Protein mass conc HNO ID: [id number] Author: Dorene CabreraRn) DEBBIE Plata Service: Radiology Author Type: Registered Nurse Type: Nursing Progress Note Filed: 04/02/2018 7:57 AM Note Text: PICC/VASCULAR ACCESS PROGRESS NOTE SERVICE DATE: 04/02/2018 SERVICE TIME: 0750 Called to floor for difficult IV access. 22 gauge 1 3/4 inch angio placed to right forearm with ultrasound guidance. Brisk blood return, flushed with 10cc normal saline. Nurse aware. SIGNATURE: Dorene Plata RN PATIENT NAME: Sarina Lovett DATE: April 02, 2018 TIME: 7:56 AM PAGER/CONTACT #: [phone] [facility] Protein mass conc HNO ID: [id number] Author: Kera (Rn) DEBBIE Childers Service: (none) Author Type: Registered Nurse Type: Nursing Progress Note Filed: 04/01/2018 11:32 PM Note Text: Nursing Progress Note Patient Name: Sraina Lovett Patient Location: [address] Daily Note: 2235 P[address] House spoke with Galilea DENNY regarding pt. Increased work of breathing,pt. Took off Cpap- 86% on ltrs, pulse ox at 4 ltrs with no change, 97% on 6 ltrs, one time breathing tx was ordered and to encourage pt. To go back on Cpap. 2330 pt. Back on Cpap after breathing tx, resting in bed, spo2 97%. This note was completed by: Kera Childers RN [facility] PROGRESSon 04-02-2018 Protein mass conc HNO ID: [id number] Author: Eleni Flanagan Service: Nephrology Author Type: Physician Type: Progress Notes Filed: 04/02/2018 3:04 PM Note Text: NEPHROLOGY CONSULT PROGRESS NOTE PATIENT NAME: Sarina Lovett ADMITTED ON: 03/24/2018 CONSULTING SERVICE: NEPHROLOGY ASSESSMENT: 73 yo lady with PMH of CKD, CAD, CHF EF 50%m HTN, HL admitted with NSTEMI s/p DAVID, course c/b JULIETA and acute resp failure JULIETA, thought to be 2/2 MATTIE NAGMA and metabolic alkalosis Hyperphosphatemia BP borderline low Plan - solutes stabilizing, no acute need for dialysis - lasix iv daily, further increase in dose based on response - BP and HR borderline low, decrease coreg and give with holding parameters - dc binders and decrease sodium bicarb dose ECHO 03/18 Exam indication: Chest Pain - The left ventricle is mildly dilated. There is moderate concentric left ventricular hypertrophy. Left ventricular systolic function is mildly decreased. EF = 50 ? 5% (2D biplane) Grade I left ventricular diastolic dysfunction. - The right ventricle is normal in size. Right ventricular systolic function is low normal. - Bicor [employer]enny prosthetic aortic valve (size #21). There is mild (1+) aortic valve regurgitation. There is moderate aortic valve stenosis. The peak gradient is ?43 mmHg, the mean gradient is 16 mmHg and the dimensionless valve index is 0.35. Hemodynamically fairly well functioning AVR. - Exam was compared with the prior echocardiographic exam performed on 06/11/2015. The AV gradients were peak 36 mmHg and mean 27 mmHg in 2015 and are now ?peak 42 and mean 24 mmHg. Renal US 03/18 Right Kidney: ?? ? -Renal length: 11.3 cm ?? ? -Parenchyma: Parenchyma echogenicity is increased. ?Focal areas of parenchymal thinning are present. ?? ? -Collecting system: No hydronephrosis. ?? ? -Calculus: No echogenic, shadowing calculus. ?? ? -Lesion: ?None. ? Left Kidney: ?? ? -Renal length: 8.7 cm ?? ? -Parenchyma: Parenchyma echogenicity is increased. ?Focal areas of parenchymal thinning are present. ?? ? -Collecting system: No hydronephrosis. ?? ? -Calculus: No echogenic, shadowing calculus. ?? ? -Lesion: ?None. ? Bladder: The visualized urinary bladder shows no significant abnormality. ? The spleen measures 12.5 x 10.4 x 13.3 cm in size. 5 x 4.9 x 5.5 cm hypoechoic mass at the inferior medial spleen. 2.3 cm hypoechoic mass in the medial spleen. 1.3 cm and 1.5 cm cyst lesion in the spleen. ? ? INTERVAL HISTORY: No acute events overnight VITALS: BP 183/72 Pulse 83 Temp 36.8 ?C (98.2 ?F) (Oral) Resp 21 Ht 170.2 cm (5' 7.01 ) Wt 81.2 kg (179 lb) SpO2 99% BMI 28.03 kg/m? Date 04/01/18 0700 - 04/02/18 0659 Shift 8239-2234 6129-1222 3122-4845 24 Hour Total I N T A K E PO 200 200 Shift Total 200 200 O U T P U T Shift Total Weight (kg) 81.9 81.9 81.9 81.9 PHYSICAL EXAM: GEN: sleeping but arousable NEURO: no asterixis HEENT: PERRLA, MMM Neck: Supple CHEST: decreased AEBL CVS: RRR, nml S1S2, no rub, No LE edema ABDO: Soft, nt, nd, bs+ EXT: No obvious deformities, SKIN: No rashes MEDICATIONS: Current hospital medications: perflutren lipid microspheres 1.1 mg/mL 1.3 mL injection (DEFINITY) 1.3 mL INTRAVENOUS DIRECTED PRN nitroglycerin 50 mg in D5W 250 mL 5-200 mcg/min INTRAVENOUS CONTINUOUS furosemide 40 mg injection (LASIX) 40 mg INTRAVENOUS ONCE calcium acetate 1,334 mg tab(s) (CALPHRON) 1,334 mg ORAL TID w MEALS ciprofloxacin 400 mg in D5W 200 mL (CIPRO) 400 mg INTRAVENOUS q 24 HR metroNIDAZOLE 500 mg PREMIX piggyback (FLAGYL) 500 mg INTRAVENOUS q 8 H carvedilol 3.125 mg tab(s) (COREG) 3.125 mg ORAL BID w MEALS heparin 5,000 Units injection 5,000 Units SUBCUTANEOUS q 12 H sodium bicarbonate 1,300 mg tab(s) 1,300 mg ORAL TID acetaminophen 500-1,000 mg tab(s) (TYLENOL) 500-1,000 mg ORAL q 6 H PRN oxyCODONE IR 5-10 mg tab(s) (ROXICODONE) 5-10 mg ORAL q 6 H PRN ipratropium-albuterol 3 mL nebulizer solution (DUONEB) 3 mL INHALATION q 4 H while awake atorvastatin 80 mg tab(s) (LIPITOR) 80 mg ORAL AT BEDTIME [MAR Hold due to Transfer] nitroglycerin sublingual 0.4 mg tab(s) (NITROQUICK) 0.4 mg SUBLINGUAL PRN prochlorperazine 5 mg injection (COMPAZINE) 5 mg INTRAVENOUS q 6 H PRN insulin lispro injection (rapid acting) (HumaLOG) SUBCUTANEOUS w MEALS AND HS aspirin 81 mg chewable tab(s) 81 mg ORAL DAILY sertraline 150 mg tab(s) (ZOLOFT) 150 mg ORAL DAILY clopidogrel 75 mg tab(s) (PLAVIX) 75 mg ORAL DAILY buPROPion XL 150 mg tab(s) (WELLBUTRIN XL) 150 mg ORAL DAILY NaCl 0.9% 3-5 mL 3-5 mL INTRAVENOUS q 12 H polyethylene glycol 3350 17 g packet (MIRALAX, GLYCOLAX) 17 g ORAL DAILY PRN bisacodyl 10 mg suppository (DULCOLAX) 10 mg RECTAL DAILY PRN melatonin 1 mg tab(s) 1 mg ORAL HS PRN dextrose 40 % 15 g 15 g ORAL PRN glucagon 1 mg injection (GLUCAGEN) 1 mg INTRAMUSCULAR PRN dextrose 50% in water 25 mL syringe 12.5 g INTRAVENOUS PRN pantoprazole DR 20 mg tab(s) (PROTONIX) 20 mg ORAL DAILY (6 AM) DATA: Diagnostic tests reviewed for today's visit: Glucose (mg/dL) Date Value 04/01/2018 91 BUN (mg/dL) Date Value 04/01/2018 88 (H) Creatinine (mg/dL) Date Value 04/01/2018 3.28 (H) Sodium (mmol/L) Date Value 04/01/2018 133 Potassium (mmol/L) Date Value 04/01/2018 4.5 Chloride (mmol/L) Date Value 04/01/2018 96 (L) Albumin (g/dL) Date Value 03/31/2018 3.2 (L) Calcium (mg/dL) Date Value 04/01/2018 8.5 Magnesium (mg/dL) Date Value 03/31/2018 2.1 WBC (k/uL) Date Value 04/01/2018 6.53 Hemoglobin (g/dL) Date Value 04/01/2018 7.5 (L) Hematocrit (%) Date Value 04/01/2018 22.2 (L) Platelet Count (k/uL) Date Value 04/01/2018 151 URINE Protein, Urine (mg/dL) Date Value 03/24/2018 30 (A) Creatinine, Ur Random (UCRR) (mg/dL) Date Value 03/27/2018 33.9 24HR URINE No results found for: PERIOD, VOLUME, UXTP24 Thank you for allowing me to participate in the care of your patient. Please contact me with any questions or concerns. SIGNATURE: Eleni Flanagan MD PhD PATIENT NAME: Sarina Lovett [facility] Protein mass conc HNO ID: [id number] Author: Mame Bowers Service: Hospital Medicine Author Type: Physician Type: Progress Notes Filed: 04/02/2018 2:35 PM Note Text: DEPARTMENT OF HOSPITAL MEDICINE PROGRESS NOTE Name: Sarina Lovett SERVICE DATE: 04/02/2018 SERVICE TIME: 10:23 AM Hospital Medicine/Primary Attending: Mame Bowers MD NIGHT AND WEEKEND COVERAGE: Days: [phone], please page me for patient issues. Nights: [phone], please page [facility] Hospitalist Night Coverage pager: [phone]. Dr. Thao to take over care for this patient from tomorrow ownards. Sign out given ASSESSMENT AND PLAN 73 year old female?with PMH of CAD (CABG in 2005, PCI to RCA in 2000 and 2015), aortic stenosis (s/p replacement in [address] #[address] [employer] Bioprosthetic valve), HTN, HLD, DM2 admitted for NSTEMI S/p cath 03/26 with 2 DAVID placed in SVG to RCA, later developed JULIETA treated with IVF. Patient developed acute respiratory failure 03/27 required discontinuing IVF, ?IV lasix, and intermittent CPAP Remains on oxygen and intermittent CPAP at night. Found to have worsening SOB overnight and significantly elevated troponins on floor and has been transferred to [facility] for further monitoring. NonSTEMI s/p 2 DAVID to SVG to RCA post DAVID x2 to SVG-RCA with acute dypsnea and increased cardiac silhouette with CXR infiltrates suggestive of pulmonary edema - on ASA, plavix, BB and statins - holding LOS due to JULIETA - appreciate cardiology input - repeat limited ECHO PORSHA as per cardiology - last ECHO with preserved EF and stage I diastolic CHF - nitro gtt as per cardiology ? Acute hypoxic respiratory failure: Likely related to pulmonary edema with CHF Likely Acute on chronic diastolic CHF exacerbation Hx of smoking and COPD - Iv lasix stat- assess lasix need on daily basis - will give another dose in the evening today - ABG reviewed - consider CPAP as needed Probable contrast induced nephropathy JULIETA on CKD 3 - lasix as needed for fluid overload - monitor closely - appreciate nephrology input - strict I AND Os - appreciate nephrology input ? Acute uncomplicated sigmoid diverticulitis - noted on CT overnight, now with LLQ abdominal pain improving - continue IV Cipro and metro - hold nay IVF for now Anemia - acute on chronic normocytic - Hgb 7.8 today, no melena or hematochezia > 35 mins spent with the spent who is at risk for sudden cardiopulmonary deterioration and . Code status discussed and pt does not want to be intubated and refuses ventilation use. No CPR as well. Code status changed to DNR CCA Patient Active Hospital Problem List: NSTEMI (non-ST elevated myocardial infarction) (HCC) (03/24/2018) Essential hypertension, benign (05/16/2003) Chest pain (05/31/2015) Coronary atherosclerosis (06/12/2015) Tobacco abuse (03/24/2018) Psychiatric disorder (03/24/2018) Nicotine use disorder, F17.2 (03/25/2018) Contrast dye induced nephropathy (03/29/2018) Acute renal failure superimposed on stage 3 chronic kidney disease (HCC) (03/29/2018) SUBJECTIVE INTERVAL HPI: patient seen and examined, lying on the bed, transferred from [facility] with elevated troponin, pt stated that she is feeling better and does not any CP and improving SOB MEDICATIONS: Reviewed OBJECTIVE PHYSICAL EXAM: BP 167/62 Pulse 70 Temp (Src) 97.3 (Temporal Artery) Resp 27 Ht 5' 7.008 (1.70m) Wt 179 lb (81.2kg) SpO2 98% BMI 28.03 kg/(m2). GENERAL: alert, no distress, cooperative SKIN: Skin color, texture, turgor normal. No rashes or lesions. HEAD/EYES/SINUSES: No significant findings., AT,NC, EOMI, PERRLA NECK: no jugulovenous distention, no carotid bruits, supple LUNGS:diminished bibasilar air entry, BL crackles present with minimal wheezing CARDIAC: Normal S1 and S2; no rubs, murmurs, or gallops ABDOMEN: Abdomen soft, non-tender. BS normal. No masses or organomegaly. EXTREMITIES: No deformities, edema, clubbing or skin discoloration., No ulcers NEURO: AO x 3, Motor: grossly intact, BL equal, Cranial nerves II-XII intact. PULSES: 2+ radial, 2+ carotid DATA: Diagnostic tests reviewed for today's visit: Most recent labs and imaging results. VTE Prophylaxis: heparin SQ Plan of care discussed with: Patient, RN at bedside and Consultants: Cardiology SIGNATURE: Mame Bowers MD DATE: April 02, 2018 TIME: 10:23 AM [facility] Protein mass conc HNO ID: [id number] Author: Laura Chance Service: General Internal Medicine Author Type: Nurse Practitioner Type: Progress Notes Filed: 04/02/2018 11:12 AM Note Text: INPATIENT PROGRESS NOTE SERVICE DATE: 04/02/2018 SERVICE TIME: 0750 PRIMARY SERVICE: IM Subjective CHIEF COMPLAINT: SOB/hypoxia INTERVAL HPI: follow up nstemi and julieta. Since sometime yesterday/last night having sob /hypoxia - per nursing sp02 in the 80's and required o2 to be bumped up to 6 L. She also required multiple RT treatments. Rt at the beside, AGB and CXR done- doing better on cpap currently than 02. Overall does not feel well and does complain of significant changes from yesterday. Current hospital medications: calcium acetate 1,334 mg tab(s) (CALPHRON) 1,334 mg ORAL TID w MEALS ciprofloxacin 400 mg in D5W 200 mL (CIPRO) 400 mg INTRAVENOUS q 24 HR metroNIDAZOLE 500 mg PREMIX piggyback (FLAGYL) 500 mg INTRAVENOUS q 8 H carvedilol 3.125 mg tab(s) (COREG) 3.125 mg ORAL BID w MEALS heparin 5,000 Units injection 5,000 Units SUBCUTANEOUS q 12 H sodium bicarbonate 1,300 mg tab(s) 1,300 mg ORAL TID acetaminophen 500-1,000 mg tab(s) (TYLENOL) 500-1,000 mg ORAL q 6 H PRN oxyCODONE IR 5-10 mg tab(s) (ROXICODONE) 5-10 mg ORAL q 6 H PRN ipratropium-albuterol 3 mL nebulizer solution (DUONEB) 3 mL INHALATION q 4 H while awake atorvastatin 80 mg tab(s) (LIPITOR) 80 mg ORAL AT BEDTIME nitroglycerin sublingual 0.4 mg tab(s) (NITROQUICK) 0.4 mg SUBLINGUAL PRN prochlorperazine 5 mg injection (COMPAZINE) 5 mg INTRAVENOUS q 6 H PRN insulin lispro injection (rapid acting) (HumaLOG) SUBCUTANEOUS w MEALS AND HS aspirin 81 mg chewable tab(s) 81 mg ORAL DAILY sertraline 150 mg tab(s) (ZOLOFT) 150 mg ORAL DAILY clopidogrel 75 mg tab(s) (PLAVIX) 75 mg ORAL DAILY buPROPion XL 150 mg tab(s) (WELLBUTRIN XL) 150 mg ORAL DAILY NaCl 0.9% 3-5 mL 3-5 mL INTRAVENOUS q 12 H ondansetron 4 mg tab(s) (ZOFRAN) 4 mg ORAL q 6 H PRN ondansetron (PF) 4 mg injection (ZOFRAN) 4 mg INTRAVENOUS q 6 H PRN polyethylene glycol 3350 17 g packet (MIRALAX, GLYCOLAX) 17 g ORAL DAILY PRN bisacodyl 10 mg suppository (DULCOLAX) 10 mg RECTAL DAILY PRN melatonin 1 mg tab(s) 1 mg ORAL HS PRN dextrose 40 % 15 g 15 g ORAL PRN glucagon 1 mg injection (GLUCAGEN) 1 mg INTRAMUSCULAR PRN dextrose 50% in water 25 mL syringe 12.5 g INTRAVENOUS PRN pantoprazole DR 20 mg tab(s) (PROTONIX) 20 mg ORAL DAILY (6 AM) Objective PHYSICAL EXAM: BP 167/62 Pulse 75 Temp (Src) 97.3 (Temporal Artery) Resp 24 Ht 5' 7.008 (1.70m) Wt 179 lb (81.2kg) SpO2 97% BMI 28.03 kg/(m2). Physical Exam Performed GENERAL: Alert, no distress, cooperative SKIN: Skin color, texture, turgor normal. No rashes or lesions. NECK: No jugulovenous distention, Supple LUNGS: coarse sounding throughout, postiive wheeze/rhonchi - SHRUTHI CARDIAC: RRR ABDOMEN: Abdomen soft, non-tender, BS normal, No masses or organomegaly EXTREMITIES: Extremities normal, no deformities, edema, clubbing or skin discoloration. Good capillary refill. NEURO: no new gross deficits PULSES: 2+ radial DATA: Diagnostic tests reviewed for today's visit: Most recent labs and imaging results. Assessment/Plan Principal Problem: 1. Julieta on CKD-3 D/t contrast nephology following Mild bun/creatinine improvement Not ready for d/c yet Hyperphosphatemia better on phoslo 2/3 overall creatinine improved, monitor ? 2 NSTEMI, CAD s/p PCI, HFrEF chest pain resolved after PCI - ECHO 03/25/18 with EF 50%, grade I LV diastolic dysfunction; prosthetic aortic valve with mild aortic regurgitation - c/w ASA, plavix, statin, coreg - followed by cardiology No chest pain today, no significant edema noted Wean o2 as tolerated, needs desat study 2/3 repeat EKG looks similar to previous - troponin pending, no chest pain - asking nursing to have cardiology take a look at 12 lead as well ? 3. HTN/HLD Systolic and diastolic wnl last 24 hours, cardiology and nephrology following Coreg 2/3 evaluated this am but in acute issues ? 4. Diverticulitis atbx per GI Overall seems improved Still on liquid diet 2/3 on liquid diet - tolerating no abdominal pain this am, GI following ? 5. Splenic lesions GI following Consider MRI for better evaluation - d/w dr peters- pending GI input - also would be hard to get imaging d/t julieta ? 6. Probable copd No s/sx exacerbation Needs desat study Needs sleep study outpt - does not have cpap/bipap at home 2/3 new hypoxia - stat ekg, stat abg, stat labs, d/w dr peters, pulmonary consult - exacerbation vs other causes work upt pending ? 7. Dysthymia H/o recurrent MDD, h/o CEDRIC C/w welbutrin and zoloft No si/hi Seems stable 2/3 no new concerns 8. Hypoxia Onset some time yesterday/overnight - pt not very clear- sp02 coming up on cpap - RT at bedside, ABG done, Labs pending Will d/w further with the primary team cxr - shows progression for airspace disease throughout the right lung and lesser extent in the periphilar region Pulmonary consulted - case d/w attending 9. acute Anemia Has been tending downward In the setting of julieta and possible GI loss Repeat and replete as needed to keep hgb above 7.0 Medication and Non-Pharmacologic VTE Prophylaxis/Anticoagu lants Anticoagulant AND Antiplatelet Medications Start Dose Route Frequency Ordered Stop 03/30/18 1000 heparin 5,000 Units injection 5,000 Units SUBCUTANEOUS EVERY 12 HOURS 03/30/18 0955 -- 03/25/18 0900 aspirin 81 mg chewable tab(s) 81 mg ORAL DAILY 03/24/182035 -- 03/24/182099 clopidogrel 75 mg tab(s) (PLAVIX) 75 mg ORAL DAILY 03/24/182035 -- 03/24/182044 vte non-pharmacologic prophylaxis - none indicated (mt,oh) 03/24/182044 activity - mobilize patient ([place], [place]) VTE Prophylaxis: VTE prophylaxis appropriate SIGNATURE: Laura Chance APRN.CNP PATIENT NAME: Sarina Lovett DATE: April 02, 2018 TIME: 7:29 AM PAGER: D/w Dr. Peters D/w Dr. Jack D/w dr tenorio pt trasferred to [facility] all meds /orders continued except zofran- also could consider d/c zoloft, d/w [facility] nursing- they will discuss with attending Normal [facility] Renal Function Panelon 04-02 Albumin mass conc 3.4 g/dL Low 3.5-5.0 [facility] Comment on above: Performed By: #### P TT, NTBNP, HSTNT, CBCDIF, PT, CKCKMB, CMP #### [place] [id number] Anion gap molar conc 18 mmol/L Normal 9-18 [facility] Comment on above: Performed By: #### P TT, NTBNP, HSTNT, CBCDIF, PT, CKCKMB, CMP #### [place] [id number] Calcium mass conc 8.8 mg/dL Normal 8.5-10.5 [facility] Comment on above: Performed By: #### P TT, NTBNP, HSTNT, CBCDIF, PT, CKCKMB, CMP #### [place] [phone] Chloride molar conc 97 mmol/L Low 98-110 [facility] Comment on above: Performed By: #### P TT, NTBNP, HSTNT, CBCDIF, PT, CKCKMB, CMP #### [place] [phone] CO2 molar conc 19 mmol/L Low 23-32 [facility] Comment on above: Performed By: #### P TT, NTBNP, HSTNT, CBCDIF, PT, CKCKMB, CMP #### [place] [id number] Creatinine mass conc 2.33 mg/dL High 0.70-1.40 [facility] Comment on above: Result Comment: Revi ewed Performed By: #### P TT, NTBNP, HSTNT, CBCDIF, PT, CKCKMB, CMP #### [place] [id number] eGFR- Amer. 25 Low >60 [facility] Comment on above: Performed By: #### P TT, NTBNP, HSTNT, CBCDIF, PT, CKCKMB, CMP #### [address] GFR/1.73 sq M predicted among non-blacks MDRD vol rate/area (S/P/Bld) 21 . Low >60 [facility] Comment on above: Performed By: #### P TT, NTBNP, HSTNT, CBCDIF, PT, CKCKMB, CMP #### [place] [id number] Glucose mass conc 115 mg/dL High 65-100 [facility] Comment on above: Performed By: #### P TT, NTBNP, HSTNT, CBCDIF, PT, CKCKMB, CMP #### [place] [id number] Phosphate mass conc 5.0 mg/dL High 2.5-4.5 [facility] Comment on above: Performed By: #### P TT, NTBNP, HSTNT, CBCDIF, PT, CKCKMB, CMP #### [place] [id number] Potassium molar conc 4.1 mmol/L Normal 3.5-5.0 [facility] Comment on above: Performed By: #### P TT, NTBNP, HSTNT, CBCDIF, PT, CKCKMB, CMP #### [place] [phone] Sodium molar conc 134 mmol/L Normal 132-148 [facility] Comment on above: Performed By: #### P TT, NTBNP, HSTNT, CBCDIF, PT, CKCKMB, CMP #### [place] [phone] Urea nitrogen mass conc 77 mg/dL High 8-25 [facility] Comment on above: Performed By: #### P TT, NTBNP, HSTNT, CBCDIF, PT, CKCKMB, CMP #### [place] [phone] THERAPY NTon 04-02-2018 THERAPY NT HNO ID: [id number] Author: Raj (Poultry Trimmer) LALO [place] Service: Respiratory Therapy Author Type: Registered Resp Therapist Type: Therapy (PT/OT/Speech/Resp) Filed: 04/02/2018 7:49 AM Note Text: ABG drawn from right brachial artery. Site held until bleeding stopped. Normal [facility] Troponin Ton 04-02-2018 Troponin T.cardiac mass conc 9.390 ng/mL High 0.000-0.029 [facility] Comment on above: Result Comment: Urge nt value previously called On 04/02/18 at 0915 T Conn Performed By: #### P TT, NTBNP, HSTNT, CBCDIF, PT, CKCKMB, CMP #### [place] [phone] Troponin T.cardiac mass conc 9.520 ng/mL High 0.000-0.029 [facility] Comment on above: Result Comment: Urge nt value previously called on 04/02/18 0915 A.Bias Performed By: #### P TT, NTBNP, HSTNT, CBCDIF, PT, CKCKMB, CMP #### [place] [phone] Troponin T.cardiac mass conc 10.090 ng/mL High 0.000-0.029 [facility] Comment on above: Result Comment: Call ed to and read back by: Harley Valadez RN Ambrose [facility] 04/02/2018 0915 [place] Performed By: #### P TT, NTBNP, HSTNT, CBCDIF, PT, CKCKMB, CMP #### [place] [id number] [place] [address] XR CHEST 1V FRONTALon 2018 XR CHEST 1V FRONTAL * * *Final Report* * * DATE OF EXAM: Apr 02 2018 8:05AM FVX [id number] - XR CHEST 1V FRONTAL / PROCEDURE REASON: Acute respiratory illness * * * * Physician Interpretation * * * * Examination: AP portable erect chest History: Acute respiratory illness Comparison: 03/28/2018 at 1013 RESULT: Mediastinal clips and wires are in place. Cardiomegaly is again noted. Perihilar airspace disease on the left has increased. Diffuse airspace disease throughout the right lung is noted. More confluent and diffuse than previously noted. No pneumothorax. Possible small bilateral pleural fluid collections. IMPRESSION: INTERVAL SIGNIFICANT PROGRESSION OF AIRSPACE DISEASE THROUGHOUT THE RIGHT LUNG, AND TO A LESSER EXTENT IN THE LEFT PERIHILAR REGION BONY Armature Rewinder: [facility] Transcribe Date/Time: Apr 02 2018 7:57A Dictated by : BROOKE SEE MD This examination was interpreted and the report reviewed and electronically signed by: BROOKE SEE MD on Apr 02 2018 7:59AM EST [id number] Normal [facility] Basic Metabolic Panlon 04-01 Anion gap molar conc 18 mmol/L Normal 9-18 [facility] Comment on above: Performed By: #### P TT, NTBNP, HSTNT, CBCDIF, PT, CKCKMB, CMP #### [place] [id number] [place] [address] Calcium mass conc 8.5 mg/dL Normal 8.5-10.5 [facility] Comment on above: Performed By: #### P TT, NTBNP, HSTNT, CBCDIF, PT, CKCKMB, CMP #### [place] [address] Chloride molar conc 96 mmol/L Low 98-110 [facility] Comment on above: Result Comment: Revi ewed Performed By: #### P TT, NTBNP, HSTNT, CBCDIF, PT, CKCKMB, CMP #### [phone] CO2 molar conc 19 mmol/L Low 23-32 [facility] Comment on above: Performed By: #### P TT, NTBNP, HSTNT, CBCDIF, PT, CKCKMB, CMP #### [place] [phone] Creatinine mass conc 3.28 mg/dL High 0.70-1.40 [facility] Comment on above: Performed By: #### P TT, NTBNP, HSTNT, CBCDIF, PT, CKCKMB, CMP #### [place] [phone] eGFR- Amer. 17 Low >60 [facility] Comment on above: Performed By: #### P TT, NTBNP, HSTNT, CBCDIF, PT, CKCKMB, CMP #### [place] [phone] GFR/1.73 sq M predicted among non-blacks MDRD vol rate/area (S/P/Bld) 14 . Low >60 [facility] Comment on above: Performed By: #### P TT, NTBNP, HSTNT, CBCDIF, PT, CKCKMB, CMP #### [place] [phone] Glucose mass conc 91 mg/dL Normal 65-100 [facility] Comment on above: Performed By: #### P TT, NTBNP, HSTNT, CBCDIF, PT, CKCKMB, CMP #### [phone] Potassium molar conc 4.5 mmol/L Normal 3.5-5.0 [facility] Comment on above: Result Comment: Revi ewed Performed By: #### P TT, NTBNP, HSTNT, CBCDIF, PT, CKCKMB, CMP #### [place] [phone] Sodium molar conc 133 mmol/L Normal 132-148 [facility] Comment on above: Performed By: #### P TT, NTBNP, HSTNT, CBCDIF, PT, CKCKMB, CMP #### [place] [phone] Urea nitrogen mass conc 88 mg/dL High 8-25 [facility] Comment on above: Performed By: #### P TT, NTBNP, HSTNT, CBCDIF, PT, CKCKMB, CMP #### [place] [phone] CBC and Differentialon 04-01 Abs Baso <0.03 Normal <0.11 [facility] Comment on above: Performed By: #### P TT, NTBNP, HSTNT, CBCDIF, PT, CKCKMB, CMP #### [place] [phone] Abs [place] 0.47 k/uL Normal <0.87 [facility] Comment on above: Performed By: #### P TT, NTBNP, HSTNT, CBCDIF, PT, CKCKMB, CMP #### [place] [phone] Abs Neut 5.68 k/uL Normal 1.45-7.50 [facility] Comment on above: Performed By: #### P TT, NTBNP, HSTNT, CBCDIF, PT, CKCKMB, CMP #### [place] [phone] Basophils/100 WBC (Bld) 0.2 % Normal [facility] Comment on above: Performed By: #### P TT, NTBNP, HSTNT, CBCDIF, PT, CKCKMB, CMP #### [place] [phone] DTYPE Auto Diff Normal [facility] Comment on above: Performed By: #### P TT, NTBNP, HSTNT, CBCDIF, PT, CKCKMB, CMP #### [place] [address] Eosinophils #/vol (Bld) 0.05 10*3/uL Normal <0.46 [facility] Comment on above: Performed By: #### P TT, NTBNP, HSTNT, CBCDIF, PT, CKCKMB, CMP #### [place] [address] Eosinophils/100 WBC (Bld) 0.8 % Normal [facility] Comment on above: Performed By: #### P TT, NTBNP, HSTNT, CBCDIF, PT, CKCKMB, CMP #### [place] [address] Erythrocyte distribution width Ratio (RBC) 13.9 % Normal 11.5-15.0 [facility] Comment on above: Performed By: #### P TT, NTBNP, HSTNT, CBCDIF, PT, CKCKMB, CMP #### [place] [address] Hematocrit Volume Fraction (Bld) 22.2 % Low 36.0-46.0 [facility] Comment on above: Performed By: #### P TT, NTBNP, HSTNT, CBCDIF, PT, CKCKMB, CMP #### [place] [address] Hemoglobin mass conc (Bld) 7.5 g/dL Low 11.5-15.5 [facility] Comment on above: Performed By: #### P TT, NTBNP, HSTNT, CBCDIF, PT, CKCKMB, CMP #### [place] [address] Lymphocytes #/vol (Bld) 0.32 10*3/uL Low 1.00-4.00 [facility] Comment on above: Performed By: #### P TT, NTBNP, HSTNT, CBCDIF, PT, CKCKMB, CMP #### [place] [phone] Lymphocytes/100 WBC (Bld) 4.9 % Normal [facility] Comment on above: Performed By: #### P TT, NTBNP, HSTNT, CBCDIF, PT, CKCKMB, CMP #### [place] [address] MCH Entitic mass (RBC) 28.8 pG Normal 26.0-34.0 [facility] Comment on above: Performed By: #### P TT, NTBNP, HSTNT, CBCDIF, PT, CKCKMB, CMP #### [place] [address] MCHC mass conc (RBC) 33.8 g/dL Normal 30.5-36.0 [facility] Comment on above: Performed By: #### P TT, NTBNP, HSTNT, CBCDIF, PT, CKCKMB, CMP #### [place] [phone] MCV Entitic volume (RBC) 85.4 fL Normal 80.0-100.0 [facility] Comment on above: Performed By: #### P TT, NTBNP, HSTNT, CBCDIF, PT, CKCKMB, CMP #### [address] Monocytes/100 WBC (Bld) 7.2 % Normal [facility] Comment on above: Performed By: #### P TT, NTBNP, HSTNT, CBCDIF, PT, CKCKMB, CMP #### [address] Neutrophils/100 WBC (Bld) 86.9 % Normal [facility] Comment on above: Performed By: #### P TT, NTBNP, HSTNT, CBCDIF, PT, CKCKMB, CMP #### [place] [phone] Platelet mean volume Entitic volume (Bld) 11.5 fL Normal 9.0-12.7 [facility] Comment on above: Performed By: #### P TT, NTBNP, HSTNT, CBCDIF, PT, CKCKMB, CMP #### [place] [phone] Platelets #/vol (Bld) 151 10*3/uL Normal 150-400 [facility] Comment on above: Performed By: #### P TT, NTBNP, HSTNT, CBCDIF, PT, CKCKMB, CMP #### [phone] RBC #/vol (Bld) 2.60 10*6/uL Low 3.90-5.20 [facility] Comment on above: Performed By: #### P TT, NTBNP, HSTNT, CBCDIF, PT, CKCKMB, CMP #### [phone] WBC #/vol (Bld) 6.53 10*3/uL Normal 3.70-11.00 [facility] Comment on above: Performed By: #### P TT, NTBNP, HSTNT, CBCDIF, PT, CKCKMB, CMP #### [place] [phone] NURSING PROGon 04-01-2018 Protein mass conc HNO ID: [id number] Author: Niharika (Rn) DEBBIE Bell Service: (none) Author Type: Registered Nurse Type: Nursing Progress Note Filed: 04/01/2018 6:18 PM Note Text: Nursing Progress Note Patient Name: Sarina Lovett Patient Location: [id number] Daily Note:1530 (late entry) resumed care of patient. Pt resting in bed without s/s of distress. Pt denies pain. No needs at this time. Call light within reach, will continue to monitor. This note was completed by: Niharika Bell RN [facility] PROGRESSon 04-01-2018 Protein mass conc HNO ID: [id number] Author: Eleni Flanagan Service: Nephrology Author Type: Physician Type: Progress Notes Filed: 04/01/2018 3:04 PM Note Text: NEPHROLOGY CONSULT PROGRESS NOTE PATIENT NAME: Sarina Lovett ADMITTED ON: 03/24/2018 CONSULTING SERVICE: NEPHROLOGY ASSESSMENT: 73 yo lady with PMH of CKD, CAD, CHF EF 50%m HTN, HL admitted with NSTEMI s/p DAVID, course c/b JULIETA and acute resp failure JULIETA, thought to be 2/2 MATTIE NAGMA and metabolic alkalosis Hyperphosphatemia BP borderline low Plan - solutes stabilizing, no acute need for dialysis - please record UOP, probably lasix tomorrow - BP and HR borderline low, decrease coreg and give with holding parameters ECHO 03/18 Exam indication: Chest Pain - The left ventricle is mildly dilated. There is moderate concentric left ventricular hypertrophy. Left ventricular systolic function is mildly decreased. EF = 50 ? 5% (2D biplane) Grade I left ventricular diastolic dysfunction. - The right ventricle is normal in size. Right ventricular systolic function is low normal. - B[employer]or [employer] Renny prosthetic aortic valve (size #21). There is mild (1+) aortic valve regurgitation. There is moderate aortic valve stenosis. The peak gradient is ?43 mmHg, the mean gradient is 16 mmHg and the dimensionless valve index is 0.35. Hemodynamically fairly well functioning AVR. - Exam was compared with the prior CC echocardiographic exam performed on 06/11/2015. The AV gradients were peak 36 mmHg and mean 27 mmHg in 2016 and are now ?peak 42 and mean 24 mmHg. Renal US 03/18 Right Kidney: ?? ? -Renal length: 11.3 cm ?? ? -Parenchyma: Parenchyma echogenicity is increased. ?Focal areas of parenchymal thinning are present. ?? ? -Collecting system: No hydronephrosis. ?? ? -Calculus: No echogenic, shadowing calculus. ?? ? -Lesion: ?None. ? Left Kidney: ?? ? -Renal length: 8.7 cm ?? ? -Parenchyma: Parenchyma echogenicity is increased. ?Focal areas of parenchymal thinning are present. ?? ? -Collecting system: No hydronephrosis. ?? ? -Calculus: No echogenic, shadowing calculus. ?? ? -Lesion: ?None. ? Bladder: The visualized urinary bladder shows no significant abnormality. ? The spleen measures 12.5 x 10.4 x 13.3 cm in size. 5 x 4.9 x 5.5 cm hypoechoic mass at the inferior medial spleen. 2.3 cm hypoechoic mass in the medial spleen. 1.3 cm and 1.5 cm cyst lesion in the spleen. ? ? INTERVAL HISTORY: No acute events overnight VITALS: BP (!) 148/49 Pulse 66 Temp 36.6 ?C (97.9 ?F) (Temporal Artery) Resp 18 Ht 170.2 cm (5' 7.01 ) Wt 81.9 kg (180 lb 8 oz) SpO2 93% BMI 28.26 kg/m? Date 04/01/18 07 - 04/02/18 0659 Shift 8821-6464 8527-4921 2223-3334 24 Hour Total I N T A K E PO 200 200 Shift Total 200 200 O U T P U T Shift Total Weight (kg) 81.9 81.9 81.9 81.9 PHYSICAL EXAM: GEN: NAD NEURO: no asterixis HEENT: PERRLA, MMM Neck: Supple CHEST: CTAB CVS: RRR, nml S1S2, no rub, No LE edema ABDO: Soft, nt, nd, bs+ EXT: No obvious deformities, SKIN: No rashes MEDICATIONS: Current hospital medications: calcium acetate 1,334 mg tab(s) (CALPHRON) 1,334 mg ORAL TID w MEALS ciprofloxacin 400 mg in D5W 200 mL (CIPRO) 400 mg INTRAVENOUS q 24 HR metroNIDAZOLE 500 mg PREMIX piggyback (FLAGYL) 500 mg INTRAVENOUS q 8 H carvedilol 3.125 mg tab(s) (COREG) 3.125 mg ORAL BID w MEALS heparin 5,000 Units injection 5,000 Units SUBCUTANEOUS q 12 H sodium bicarbonate 1,300 mg tab(s) 1,300 mg ORAL TID acetaminophen 500-1,000 mg tab(s) (TYLENOL) 500-1,000 mg ORAL q 6 H PRN oxyCODONE IR 5-10 mg tab(s) (ROXICODONE) 5-10 mg ORAL q 6 H PRN ipratropium-albuterol 3 mL nebulizer solution (DUONEB) 3 mL INHALATION q 4 H while awake atorvastatin 80 mg tab(s) (LIPITOR) 80 mg ORAL AT BEDTIME nitroglycerin sublingual 0.4 mg tab(s) (NITROQUICK) 0.4 mg SUBLINGUAL PRN prochlorperazine 5 mg injection (COMPAZINE) 5 mg INTRAVENOUS q 6 H PRN insulin lispro injection (rapid acting) (HumaLOG) SUBCUTANEOUS w MEALS AND HS aspirin 81 mg chewable tab(s) 81 mg ORAL DAILY sertraline 150 mg tab(s) (ZOLOFT) 150 mg ORAL DAILY clopidogrel 75 mg tab(s) (PLAVIX) 75 mg ORAL DAILY buPROPion XL 150 mg tab(s) (WELLBUTRIN XL) 150 mg ORAL DAILY NaCl 0.9% 3-5 mL 3-5 mL INTRAVENOUS q 12 H ondansetron 4 mg tab(s) (ZOFRAN) 4 mg ORAL q 6 H PRN ondansetron (PF) 4 mg injection (ZOFRAN) 4 mg INTRAVENOUS q 6 H PRN polyethylene glycol 3350 17 g packet (MIRALAX, GLYCOLAX) 17 g ORAL DAILY PRN bisacodyl 10 mg suppository (DULCOLAX) 10 mg RECTAL DAILY PRN melatonin 1 mg tab(s) 1 mg ORAL HS PRN dextrose 40 % 15 g 15 g ORAL PRN glucagon 1 mg injection (GLUCAGEN) 1 mg INTRAMUSCULAR PRN dextrose 50% in water 25 mL syringe 12.5 g INTRAVENOUS PRN pantoprazole DR 20 mg tab(s) (PROTONIX) 20 mg ORAL DAILY (6 AM) DATA: Diagnostic tests reviewed for today's visit: Glucose (mg/dL) Date Value 04/01/2018 91 BUN (mg/dL) Date Value 04/01/2018 88 (H) Creatinine (mg/dL) Date Value 04/01/2018 3.28 (H) Sodium (mmol/L) Date Value 04/01/2018 133 Potassium (mmol/L) Date Value 04/01/2018 4.5 Chloride (mmol/L) Date Value 04/01/2018 96 (L) Albumin (g/dL) Date Value 03/31/2018 3.2 (L) Calcium (mg/dL) Date Value 04/01/2018 8.5 Magnesium (mg/dL) Date Value 03/31/2018 2.1 WBC (k/uL) Date Value 04/01/2018 6.53 Hemoglobin (g/dL) Date Value 04/01/2018 7.5 (L) Hematocrit (%) Date Value 04/01/2018 22.2 (L) Platelet Count (k/uL) Date Value 04/01/2018 151 URINE Protein, Urine (mg/dL) Date Value 03/24/2018 30 (A) Creatinine, Ur Random (UCRR) (mg/dL) Date Value 03/27/2018 33.9 24HR URINE No results found for: PERIOD, VOLUME, UXTP24 Thank you for allowing me to participate in the care of your patient. Please contact me with any questions or concerns. SIGNATURE: Eleni Flanagan MD PhD PATIENT NAME: Sarina Lovett [facility] Protein mass conc HNO ID: [id number] Author: Laura Chance Service: General Internal Medicine Author Type: Nurse Practitioner Type: Progress Notes Filed: 04/01/2018 9:44 AM Note Text: INPATIENT PROGRESS NOTE SERVICE DATE: 04/01/2018 SERVICE TIME: 0805 PRIMARY SERVICE: IM Subjective CHIEF COMPLAINT: diverticulitis, julieta, nstemi INTERVAL HPI: Follow up diverticulitis, julieta, and nstemi. pt sitting up in bed, smiling and verbalizes abdominal pain is much better than the previous day. No chest pain or sob. No cough, still wearing o2. Verbalizes she was compliant with cpap/bipap. No new concerns. No stools yet today. No new numbness, tingling, dizziness or weakness. No si/hi. No pain. Overall feels ok. Reviewed cardiology, nephrology, and gi notes. Current hospital medications: calcium acetate 1,334 mg tab(s) (CALPHRON) 1,334 mg ORAL TID w MEALS ciprofloxacin 400 mg in D5W 200 mL (CIPRO) 400 mg INTRAVENOUS q 24 HR metroNIDAZOLE 500 mg PREMIX piggyback (FLAGYL) 500 mg INTRAVENOUS q 8 H carvedilol 3.125 mg tab(s) (COREG) 3.125 mg ORAL BID w MEALS heparin 5,000 Units injection 5,000 Units SUBCUTANEOUS q 12 H sodium bicarbonate 1,300 mg tab(s) 1,300 mg ORAL TID acetaminophen 500-1,000 mg tab(s) (TYLENOL) 500-1,000 mg ORAL q 6 H PRN oxyCODONE IR 5-10 mg tab(s) (ROXICODONE) 5-10 mg ORAL q 6 H PRN ipratropium-albuterol 3 mL nebulizer solution (DUONEB) 3 mL INHALATION q 4 H while awake atorvastatin 80 mg tab(s) (LIPITOR) 80 mg ORAL AT BEDTIME nitroglycerin sublingual 0.4 mg tab(s) (NITROQUICK) 0.4 mg SUBLINGUAL PRN prochlorperazine 5 mg injection (COMPAZINE) 5 mg INTRAVENOUS q 6 H PRN insulin lispro injection (rapid acting) (HumaLOG) SUBCUTANEOUS w MEALS AND HS aspirin 81 mg chewable tab(s) 81 mg ORAL DAILY sertraline 150 mg tab(s) (ZOLOFT) 150 mg ORAL DAILY clopidogrel 75 mg tab(s) (PLAVIX) 75 mg ORAL DAILY buPROPion XL 150 mg tab(s) (WELLBUTRIN XL) 150 mg ORAL DAILY NaCl 0.9% 3-5 mL 3-5 mL INTRAVENOUS q 12 H ondansetron 4 mg tab(s) (ZOFRAN) 4 mg ORAL q 6 H PRN ondansetron (PF) 4 mg injection (ZOFRAN) 4 mg INTRAVENOUS q 6 H PRN polyethylene glycol 3350 17 g packet (MIRALAX, GLYCOLAX) 17 g ORAL DAILY PRN bisacodyl 10 mg suppository (DULCOLAX) 10 mg RECTAL DAILY PRN melatonin 1 mg tab(s) 1 mg ORAL HS PRN dextrose 40 % 15 g 15 g ORAL PRN glucagon 1 mg injection (GLUCAGEN) 1 mg INTRAMUSCULAR PRN dextrose 50% in water 25 mL syringe 12.5 g INTRAVENOUS PRN pantoprazole DR 20 mg tab(s) (PROTONIX) 20 mg ORAL DAILY (6 AM) Objective PHYSICAL EXAM: BP 122/56 Pulse 58 Temp (Src) 97.7 (Oral) Resp 17 Ht 5' 7.008 (1.70m) Wt 180 lb 8 oz (81.9kg) SpO2 95% BMI 28.26 kg/(m2). Physical Exam Performed GENERAL: Alert, no distress, cooperative SKIN: Skin color, texture, turgor normal. No rashes or lesions. NECK: No jugulovenous distention, Supple LUNGS: diminished bilaterally CARDIAC: Normal S1 and S2; no rubs, murmurs, or gallops ABDOMEN: Abdomen soft, non-tender, BS normal, No masses or organomegaly EXTREMITIES: Extremities normal, no deformities, edema, clubbing or skin discoloration. Good capillary refill. NEURO: no new gross deficits PULSES: 2+ radial DATA: Diagnostic tests reviewed for today's visit: Most recent labs and imaging results. Assessment/Plan Principal Problem: 1. Julieta on CKD-3 D/t contrast nephology following Mild bun/creatinine improvement Not ready for d/c yet Hyperphosphatemia better on phoslo 2 NSTEMI, CAD s/p PCI, HFrEF chest pain resolved after PCI - ECHO 03/25/18 with EF 50%, grade I LV diastolic dysfunction; prosthetic aortic valve with mild aortic regurgitation - c/w ASA, plavix, statin, coreg - followed by cardiology No chest pain today, no significant edema noted Wean o2 as tolerated, needs desat study 3. HTN/HLD Systolic and diastolic wnl last 24 hours, cardiology and nephrology following Coreg 4. Diverticulitis atbx per GI Overall seems improved Still on liquid diet 5. Splenic lesions GI following Consider MRI for better evaluation - d/w dr peters- pending GI input - also would be hard to get imaging d/t julieta 6. Probable copd No s/sx exacerbation Needs desat study Needs sleep study outpt - does not have cpap/bipap at home 7. Dysthymia H/o recurrent MDD, h/o CEDRIC C/w welbutrin and zoloft No si/hi Seems stable 8.debility Home with home care pt/ot when medically stable 9. Anemia In the setting of JULIETA with ckd 3 hgb 7.5 Transfuse when/if under 7 Resolved Problems: * No resolved hospital problems. * Medication and Non-Pharmacologic VTE Prophylaxis/Anticoagu lants Anticoagulant AND Antiplatelet Medications Start Dose Route Frequency Ordered Stop 03/30/18 1000 heparin 5,000 Units injection 5,000 Units SUBCUTANEOUS EVERY 12 HOURS 03/30/18 0955 -- 03/25/18 0900 aspirin 81 mg chewable tab(s) 81 mg ORAL DAILY 03/24/182035 -- 03/24/182099 clopidogrel 75 mg tab(s) (PLAVIX) 75 mg ORAL DAILY 03/24/182035 -- 03/24/182044 vte non-pharmacologic prophylaxis - none indicated (mt,oh) 03/24/182044 activity - mobilize patient ([place], [place]) VTE Prophylaxis: VTE prophylaxis appropriate SIGNATURE: Laura Chance APRN.CNP PATIENT NAME: Sarina Lovett DATE: April 01, 2018 TIME: 8:05 AM PAGER: D/w dr peters And with pt permission d/w Paul rivera Care time > 35 minute, significant time spent d/w patient/family current plan of care Normal [facility] Phosphoruson 04-01-2018 Phosphate mass conc 5.9 mg/dL High 2.5-4.5 [facility] Comment on above: Performed By: #### P TT, NTBNP, HSTNT, CBCDIF, PT, CKCKMB, CMP #### [place] [phone] Arterial Blood Gas (FOR WEST USE ONLY)on 03-31-2018 Base Excess Negative Normal [facility] Comment on above: Result Comment: -3 t o 3 Performed By: #### P TT, NTBNP, HSTNT, CBCDIF, PT, CKCKMB, CMP #### [place] [phone] CO2 molar conc 18 mmol/L Low 22.0-28.0 [facility] Comment on above: Performed By: #### P TT, NTBNP, HSTNT, CBCDIF, PT, CKCKMB, CMP #### [place] [phone] Device Nasal Cannula Normal [facility] Comment on above: Performed By: #### P TT, NTBNP, HSTNT, CBCDIF, PT, CKCKMB, CMP #### [place] [phone] Drawsite Right Brachial Normal [facility] Comment on above: Performed By: #### P TT, NTBNP, HSTNT, CBCDIF, PT, CKCKMB, CMP #### [place] [address] HCO3 molar conc (Bld) 17 mmol/L Low 22-26 [facility] Comment on above: Performed By: #### P TT, NTBNP, HSTNT, CBCDIF, PT, CKCKMB, CMP #### [place] [address] O2 Administered 28.0 Normal [facility] Comment on above: Performed By: #### P TT, NTBNP, HSTNT, CBCDIF, PT, CKCKMB, CMP #### [place] [address] Oxygen ppres (Bld) 94 % Normal 90-98 [facility] Comment on above: Performed By: #### P TT, NTBNP, HSTNT, CBCDIF, PT, CKCKMB, CMP #### [place] [address] Oxygen ppres (Bld) 76 mm Hg Low 80-100 [facility] Comment on above: Performed By: #### P TT, NTBNP, HSTNT, CBCDIF, PT, CKCKMB, CMP #### [place] [address] pCO2 32 mm Hg Low 35-48 [facility] Comment on above: Performed By: #### P TT, NTBNP, HSTNT, CBCDIF, PT, CKCKMB, CMP #### [place] [address] pH (Bld) 7.35 [pH] Normal 7.35-7.45 [facility] Comment on above: Performed By: #### P TT, NTBNP, HSTNT, CBCDIF, PT, CKCKMB, CMP #### [place] [address] CASE MANAGEMon 03-31-2018 CASE MANAGEM HNO ID: [id number] Author: Bro Wood (Sw) Service: Care Management Author Type: Plastic Surgery Nurse Type: Care Mgt Progress Note Filed: 03/31/2018 1:35 PM Note Text: CARE MANAGEMENT PROGRESS NOTE SERVICE DATE: 03/31/2018 SERVICE TIME: 10:40 AM LOS: 7 days FREEDOM OF CHOICE GIVEN: Yes patient Financial Disclosure Provided Provider List: Home Care Preference: [facility]. [facility] Needs Prior to Discharge: To Be Determined Waiting on acceptance for HHC, patient will need home care order. Desat study needed to determine if patient will need O2. Addendum- [facility] can accept patient for HHC. SIGNATURE: KARRIE FORTE PATIENT NAME: Sarina Lovett DATE: March 31, 2018 TIME: 10:39 AM PAGER/CONTACT #: [phone] Normal [facility] CBC and Differentialon 03-31 Abs Baso <0.03 Normal <0.11 [facility] Comment on above: Performed By: #### P TT, NTBNP, HSTNT, CBCDIF, PT, CKCKMB, CMP #### [place] [phone] Abs [place] 0.49 k/uL Normal <0.87 [facility] Comment on above: Performed By: #### P TT, NTBNP, HSTNT, CBCDIF, PT, CKCKMB, CMP #### [place] [phone] Abs Neut 7.17 k/uL Normal 1.45-7.50 [facility] Comment on above: Performed By: #### P TT, NTBNP, HSTNT, CBCDIF, PT, CKCKMB, CMP #### [place] [phone] Basophils/100 WBC (Bld) 0.1 % Normal [facility] Comment on above: Performed By: #### P TT, NTBNP, HSTNT, CBCDIF, PT, CKCKMB, CMP #### [place] [phone] DTYPE Auto Diff Normal [facility] Comment on above: Performed By: #### P TT, NTBNP, HSTNT, CBCDIF, PT, CKCKMB, CMP #### [place] [address] Eosinophils #/vol (Bld) 0.05 10*3/uL Normal <0.46 [facility] Comment on above: Performed By: #### P TT, NTBNP, HSTNT, CBCDIF, PT, CKCKMB, CMP #### [place] [address] Eosinophils/100 WBC (Bld) 0.6 % Normal [facility] Comment on above: Performed By: #### P TT, NTBNP, HSTNT, CBCDIF, PT, CKCKMB, CMP #### [place] [address] Erythrocyte distribution width Ratio (RBC) 13.9 % Normal 11.5-15.0 [facility] Comment on above: Performed By: #### P TT, NTBNP, HSTNT, CBCDIF, PT, CKCKMB, CMP #### [place] [address] Hematocrit Volume Fraction (Bld) 23.5 % Low 36.0-46.0 [facility] Comment on above: Performed By: #### P TT, NTBNP, HSTNT, CBCDIF, PT, CKCKMB, CMP #### [place] [address] Hemoglobin mass conc (Bld) 7.8 g/dL Low 11.5-15.5 [facility] Comment on above: Performed By: #### P TT, NTBNP, HSTNT, CBCDIF, PT, CKCKMB, CMP #### [place] [address] Lymphocytes #/vol (Bld) 0.44 10*3/uL Low 1.00-4.00 [facility] Comment on above: Performed By: #### P TT, NTBNP, HSTNT, CBCDIF, PT, CKCKMB, CMP #### [address] Lymphocytes/100 WBC (Bld) 5.4 % Normal [facility] Comment on above: Performed By: #### P TT, NTBNP, HSTNT, CBCDIF, PT, CKCKMB, CMP #### [place] [id number] MCH Entitic mass (RBC) 28.5 pG Normal 26.0-34.0 [facility] Comment on above: Performed By: #### P TT, NTBNP, HSTNT, CBCDIF, PT, CKCKMB, CMP #### [place] [address] MCHC mass conc (RBC) 33.2 g/dL Normal 30.5-36.0 [facility] Comment on above: Performed By: #### P TT, NTBNP, HSTNT, CBCDIF, PT, CKCKMB, CMP #### [address] MCV Entitic volume (RBC) 85.8 fL Normal 80.0-100.0 [facility] Comment on above: Performed By: #### P TT, NTBNP, HSTNT, CBCDIF, PT, CKCKMB, CMP #### [place] [phone] Monocytes/100 WBC (Bld) 6.0 % Normal [facility] Comment on above: Performed By: #### P TT, NTBNP, HSTNT, CBCDIF, PT, CKCKMB, CMP #### [address] Neutrophils/100 WBC (Bld) 87.9 % Normal [facility] Comment on above: Performed By: #### P TT, NTBNP, HSTNT, CBCDIF, PT, CKCKMB, CMP #### [place] [phone] Platelet mean volume Entitic volume (Bld) 11.6 fL Normal 9.0-12.7 [facility] Comment on above: Performed By: #### P TT, NTBNP, HSTNT, CBCDIF, PT, CKCKMB, CMP #### [place] [phone] Platelets #/vol (Bld) 152 10*3/uL Normal 150-400 [facility] Comment on above: Performed By: #### P TT, NTBNP, HSTNT, CBCDIF, PT, CKCKMB, CMP #### [place] [phone] RBC #/vol (Bld) 2.74 10*6/uL Low 3.90-5.20 [facility] Comment on above: Performed By: #### P TT, NTBNP, HSTNT, CBCDIF, PT, CKCKMB, CMP #### [place] [phone] WBC #/vol (Bld) 8.16 10*3/uL Normal 3.70-11.00 [facility] Comment on above: Performed By: #### P TT, NTBNP, HSTNT, CBCDIF, PT, CKCKMB, CMP #### [phone] CONSULT PROGon 03-31-2018 Protein mass conc HNO ID: [id number] Author: Deanna Yoo Service: Cardiovascular Medicine Author Type: Nurse Practitioner Type: Consult Progress Note Filed: 03/31/2018 4:40 PM Note Text: PROGRESS NOTE CARDIOLOGY SERVICE SERVICE DATE: 03/31/2018 SERVICE TIME: 4:19 PM Subjective INTERIM HISTORY: Hospital Day # 6 from admission for NSTEMI and Day #5 From cath/DESx2 to SVG-RCA; still complaining of exhaustion. Found to have diverticulitis, now on antbiotics Creatinine still climbing Hgb 7.8 today, was 11.8 on admission no chest pain. Still feels a little short of breath. Objective PHYSICAL EXAM: Body mass index is 28.91 kg/m?. O2 Therapy: Nasal Cannula No Data Recorded Patient Vitals for the past 24 hrs: BP Temp Temp src Pulse Resp SpO2 Weight 03/31/18 1602 - - - (!) 56 18 - - 03/31/18 1551 - - - (!) 55 18 95 % - 03/31/18 1526 (!) 113/44 36.4 ?C (97.5 ?F) Temporal Art (!) 56 16 94 % - 03/31/18 1133 (!) 117/42 36.4 ?C (97.5 ?F) Temporal Art (!) 57 16 93 % - 03/31/18 1124 - - - - 16 - - 03/31/18 1117 - - - (!) 58 16 94 % - 03/31/18 0746 - - - 60 16 - - 03/31/18 0739 - - - 61 18 94 % - 03/31/18 0721 (!) 115/31 36.2 ?C (97.2 ?F) Temporal Art 60 18 94 % - 03/31/18 0433 - - - - - - 83.7 kg (184 lb 9.6 oz) 03/31/18 0346 (!) 108/36 36.4 ?C (97.5 ?F) Temporal Art 64 20 94 % - 03/30/18 2351 115/54 36.8 ?C (98.3 ?F) Axillary 67 22 97 % - 03/30/18 2315 - - - 68 23 98 % - 03/30/180 - - - 64 24 - - 03/30/182103 - - - (!) 58 27 95 % - 03/30/18 1937 (!) 106/38 36.4 ?C (97.5 ?F) Temporal Art 60 18 93 % - Pleasant, not in acute distress. Awake, alert, oriented times 3. Moves all extremities. HEENT: Normocephalic, face symmetrical. NECK no JVD LUNGS: faint scattered wheeze CARDIAC: RRR EXTREMITIES: No edema. PULSES: Peripheral pulses present. MEDICATIONS: Current hospital medications: calcium acetate 1,334 mg tab(s) (CALPHRON) 1,334 mg ORAL TID w MEALS carvedilol 6.25 mg tab(s) (COREG) 6.25 mg ORAL BID w MEALS ciprofloxacin 400 mg in D5W 200 mL (CIPRO) 400 mg INTRAVENOUS q 24 HR metroNIDAZOLE 500 mg PREMIX piggyback (FLAGYL) 500 mg INTRAVENOUS q 8 H heparin 5,000 Units injection 5,000 Units SUBCUTANEOUS q 12 H sodium bicarbonate 1,300 mg tab(s) 1,300 mg ORAL TID enteric contrast (radiology procedure) ORAL DIRECTED PRN enteric contrast (radiology procedure) ORAL DIRECTED PRN acetaminophen 500-1,000 mg tab(s) (TYLENOL) 500-1,000 mg ORAL q 6 H PRN oxyCODONE IR 5-10 mg tab(s) (ROXICODONE) 5-10 mg ORAL q 6 H PRN ipratropium-albuterol 3 mL nebulizer solution (DUONEB) 3 mL INHALATION q 4 H while awake atorvastatin 80 mg tab(s) (LIPITOR) 80 mg ORAL AT BEDTIME nitroglycerin sublingual 0.4 mg tab(s) (NITROQUICK) 0.4 mg SUBLINGUAL PRN prochlorperazine 5 mg injection (COMPAZINE) 5 mg INTRAVENOUS q 6 H PRN insulin lispro injection (rapid acting) (HumaLOG) SUBCUTANEOUS w MEALS AND HS aspirin 81 mg chewable tab(s) 81 mg ORAL DAILY sertraline 150 mg tab(s) (ZOLOFT) 150 mg ORAL DAILY clopidogrel 75 mg tab(s) (PLAVIX) 75 mg ORAL DAILY buPROPion XL 150 mg tab(s) (WELLBUTRIN XL) 150 mg ORAL DAILY NaCl 0.9% 3-5 mL 3-5 mL INTRAVENOUS q 12 H ondansetron 4 mg tab(s) (ZOFRAN) 4 mg ORAL q 6 H PRN ondansetron (PF) 4 mg injection (ZOFRAN) 4 mg INTRAVENOUS q 6 H PRN polyethylene glycol 3350 17 g packet (MIRALAX, GLYCOLAX) 17 g ORAL DAILY PRN bisacodyl 10 mg suppository (DULCOLAX) 10 mg RECTAL DAILY PRN melatonin 1 mg tab(s) 1 mg ORAL HS PRN dextrose 40 % 15 g 15 g ORAL PRN glucagon 1 mg injection (GLUCAGEN) 1 mg INTRAMUSCULAR PRN dextrose 50% in water 25 mL syringe 12.5 g INTRAVENOUS PRN pantoprazole [address] 20 mg tab(s) (PROTONIX) 20 mg ORAL DAILY (6 AM) DATA: Diagnostic tests reviewed for today's visit: Most recent labs and imaging results. Past 72 Hour Labs: Recent Labs 03/31/18 0553 03/30/18 0543 CK -- 242* WBC 8.16 -- RBC 2.74* -- HB 7.8* -- HCT 23.5* -- MCV 85.8 -- MCH 28.5 -- MCHC 33.2 -- RDWCV 13.9 -- PLT 152 -- MPV 11.6 -- NEUTP 87.9 -- LYMPHP 5.4 -- MONOP 6.0 -- EODINP 0.6 -- BASOP 0.1 -- ABSNEUT 7.17 -- ABSMONO 0.49 -- ABSEOSIN 0.05 -- ABSBASO <0.03 -- GLUC 132* 120* BUN 85* 74* CREAT 3.60* 3.15* NA 128* 132 K 3.2* 3.9 CHLOR 88* 93* CO2 14* 16* TPROT 6.3 -- ALB 3.2* -- CA 7.8* 8.0* ALKPHOS 80 -- TBILI 0.2 -- AST 29 -- ALT 20 -- MG 2.1 2.3 Last Lab Drawn: TSH 3.060 06/02/2015 ProBNP 33,668 03/27/2018 Triglyceride 301 03/26/2018 HDL Cholesterol 33 03/26/2018 LDL Cholesterol 221 03/26/2018 Cholesterol, Total 314 03/26/2018 Assessment/Plan Principal Problem: NSTEMI (non-ST elevated myocardial infarction) (HCC) POA: Yes Assessment AND Plan: post DAVID x2 to SVG-RCA No further chest pain, on lipitor, coreg, plavix BP on lowish side, somewhat bradycardic, will decrease coreg to 3.125 bid. Active Problems: Essential hypertension, benign POA: Yes Assessment AND Plan: low bp Will decrease coreg to 3.125mg bid Chest pain POA: Yes Assessment AND Plan: resolved Tobacco abuse POA: Yes Assessment AND Plan: needs to stop smoking Contrast dye induced nephropathy POA: No Assessment AND Plan: still climbing, expect resolution soon Followed by renal Acute renal failure superimposed on stage 3 chronic kidney disease (HCC) POA: No Assessment AND Plan: followed by renal Resolved Problems: * No resolved hospital problems. * Medication and Non-Pharmacologic VTE Prophylaxis/Anticoagu lants Anticoagulant AND Antiplatelet Medications Start Dose Route Frequency Ordered Stop 03/30/18 1000 heparin 5,000 Units injection 5,000 Units SUBCUTANEOUS EVERY 12 HOURS 03/30/18 0955 -- 03/25/18 0900 aspirin 81 mg chewable tab(s) 81 mg ORAL DAILY 03/24/182035 -- 03/24/18 2100 clopidogrel 75 mg tab(s) (PLAVIX) 75 mg ORAL DAILY 03/24/182035 -- @ PLINK([id number])@ VTE Prophylaxis: VTE prophylaxis appropriate SIGNATURE: Deanna Yoo APRN.CNP PATIENT NAME: Sarina Lovett DATE: March 31, 2018 TIME: 4:19 PM PAGER/CONTACT #: [facility] Protein mass conc HNO ID: [id number] Author: Kamille Ulrich) Jessica Service: Gastroenterology Author Type: Nurse Practitioner Type: Consult Progress Note Filed: 03/31/2018 11:08 AM Note Text: CONSULT PROGRESS NOTE SERVICE DATE: 03/31/2018 SERVICE TIME: 11:03 AM CONSULTING SERVICE: GI Subjective INTERVAL HPI: Reports having LLQ abdominal pain, some upper abdominal pain as well. Not tolerating breakfast today. CT notes acute diverticulitis - uncomplicated. She has been afebrile. Admits to a hard stool overnight - no melena or hematochezia. Current hospital medications: calcium acetate 1,334 mg tab(s) (CALPHRON) 1,334 mg ORAL TID w MEALS carvedilol 6.25 mg tab(s) (COREG) 6.25 mg ORAL BID w MEALS ciprofloxacin 400 mg in D5W 200 mL (CIPRO) 400 mg INTRAVENOUS q 24 HR metroNIDAZOLE 500 mg PREMIX piggyback (FLAGYL) 500 mg INTRAVENOUS q 8 H heparin 5,000 Units injection 5,000 Units SUBCUTANEOUS q 12 H sodium bicarbonate 1,300 mg tab(s) 1,300 mg ORAL TID enteric contrast (radiology procedure) ORAL DIRECTED PRN enteric contrast (radiology procedure) ORAL DIRECTED PRN acetaminophen 500-1,000 mg tab(s) (TYLENOL) 500-1,000 mg ORAL q 6 H PRN oxyCODONE IR 5-10 mg tab(s) (ROXICODONE) 5-10 mg ORAL q 6 H PRN ipratropium-albuterol 3 mL nebulizer solution (DUONEB) 3 mL INHALATION q 4 H while awake atorvastatin 80 mg tab(s) (LIPITOR) 80 mg ORAL AT BEDTIME nitroglycerin sublingual 0.4 mg tab(s) (NITROQUICK) 0.4 mg SUBLINGUAL PRN prochlorperazine 5 mg injection (COMPAZINE) 5 mg INTRAVENOUS q 6 H PRN insulin lispro injection (rapid acting) (HumaLOG) SUBCUTANEOUS w MEALS AND HS aspirin 81 mg chewable tab(s) 81 mg ORAL DAILY sertraline 150 mg tab(s) (ZOLOFT) 150 mg ORAL DAILY clopidogrel 75 mg tab(s) (PLAVIX) 75 mg ORAL DAILY buPROPion XL 150 mg tab(s) (WELLBUTRIN XL) 150 mg ORAL DAILY NaCl 0.9% 3-5 mL 3-5 mL INTRAVENOUS q 12 H ondansetron 4 mg tab(s) (ZOFRAN) 4 mg ORAL q 6 H PRN ondansetron (PF) 4 mg injection (ZOFRAN) 4 mg INTRAVENOUS q 6 H PRN polyethylene glycol 3350 17 g packet (MIRALAX, GLYCOLAX) 17 g ORAL DAILY PRN bisacodyl 10 mg suppository (DULCOLAX) 10 mg RECTAL DAILY PRN melatonin 1 mg tab(s) 1 mg ORAL HS PRN dextrose 40 % 15 g 15 g ORAL PRN glucagon 1 mg injection (GLUCAGEN) 1 mg INTRAMUSCULAR PRN dextrose 50% in water 25 mL syringe 12.5 g INTRAVENOUS PRN pantoprazole DR 20 mg tab(s) (PROTONIX) 20 mg ORAL DAILY (6 AM) Objective PHYSICAL EXAM: Physical Exam Performed: GENERAL: Alert, Moderate Distress, cooperative ABDOMEN: Abdomen soft, tender to LLQ, BS normal, No masses or organomegaly BP 115/31 Pulse 60 Temp (Src) 97.2 (Temporal Artery) Resp 16 Ht 5' 7.008 (1.70m) Wt 184 lb 9.6 oz (83.7kg) SpO2 94% BMI 28.91 kg/(m2). DATA: Diagnostic tests reviewed for today's visit: Most recent labs and imaging results. Impression/Recommenda tions 1. Lower abd pain: started yesterday, improved some today, some tenderness on exam, h/o diverticulitis. 2. Diarrhea: frequent unformed stools yesterday, c diff negative, no BMs today. No fever. 3. Acute uncomplicated sigmoid diverticulitis - noted on CT overnight, now with LLQ abdominal pain, not tolerating breakfast 4. Anemia - acute on chronic normocytic - Hgb 7.8 today, no melena or hematochezia 5. JULIETA on CKD 3 - creatinine increased today 3.6, nephrology following 6. NSTEMI - s/p PCI with stents, on plavix ASA, cardiology following ? Plan: Add cipro/flagyl for treatment of diverticulitis - will give IV for now, not tolerating diet this morning Clear liquid diet for now No evidence of bleeding in spite of anemia - would continue plavix given recent PCI with stent Continue to follow clinical progress ? Kamille Lopez CNP [facility] Thank you for allowing us to participate in the care of this patient. Please call with questions or concerns. SIGNATURE: Kamille Lpoez APRN.BHARAT PATIENT NAME: Sarina Lovett DATE: March 31, 2018 TIME: 11:03 AM PAGER: [phone] [facility] Protein mass conc HNO ID: [id number] Author: Marito Real Service: Nephrology Author Type: Physician Type: Consult Progress Note Filed: 03/31/2018 2:56 PM Note Text: CONSULT PROGRESS NOTE SERVICE DATE: 03/31/2018 SERVICE TIME: 11.00 am CONSULTING SERVICE: Nephrology Subjective INTERVAL HPI: No acute events overnight Remains on 2L oxygen No complains Current hospital medications: calcium acetate 1,334 mg tab(s) (CALPHRON) 1,334 mg ORAL TID w MEALS carvedilol 6.25 mg tab(s) (COREG) 6.25 mg ORAL BID w MEALS heparin 5,000 Units injection 5,000 Units SUBCUTANEOUS q 12 H sodium bicarbonate 1,300 mg tab(s) 1,300 mg ORAL TID enteric contrast (radiology procedure) ORAL DIRECTED PRN enteric contrast (radiology procedure) ORAL DIRECTED PRN acetaminophen 500-1,000 mg tab(s) (TYLENOL) 500-1,000 mg ORAL q 6 H PRN oxyCODONE IR 5-10 mg tab(s) (ROXICODONE) 5-10 mg ORAL q 6 H PRN ipratropium-albuterol 3 mL nebulizer solution (DUONEB) 3 mL INHALATION q 4 H while awake atorvastatin 80 mg tab(s) (LIPITOR) 80 mg ORAL AT BEDTIME nitroglycerin sublingual 0.4 mg tab(s) (NITROQUICK) 0.4 mg SUBLINGUAL PRN prochlorperazine 5 mg injection (COMPAZINE) 5 mg INTRAVENOUS q 6 H PRN insulin lispro injection (rapid acting) (HumaLOG) SUBCUTANEOUS w MEALS AND HS aspirin 81 mg chewable tab(s) 81 mg ORAL DAILY sertraline 150 mg tab(s) (ZOLOFT) 150 mg ORAL DAILY clopidogrel 75 mg tab(s) (PLAVIX) 75 mg ORAL DAILY buPROPion XL 150 mg tab(s) (WELLBUTRIN XL) 150 mg ORAL DAILY NaCl 0.9% 3-5 mL 3-5 mL INTRAVENOUS q 12 H ondansetron 4 mg tab(s) (ZOFRAN) 4 mg ORAL q 6 H PRN ondansetron (PF) 4 mg injection (ZOFRAN) 4 mg INTRAVENOUS q 6 H PRN polyethylene glycol 3350 17 g packet (MIRALAX, GLYCOLAX) 17 g ORAL DAILY PRN bisacodyl 10 mg suppository (DULCOLAX) 10 mg RECTAL DAILY PRN melatonin 1 mg tab(s) 1 mg ORAL HS PRN dextrose 40 % 15 g 15 g ORAL PRN glucagon 1 mg injection (GLUCAGEN) 1 mg INTRAMUSCULAR PRN dextrose 50% in water 25 mL syringe 12.5 g INTRAVENOUS PRN pantoprazole DR 20 mg tab(s) (PROTONIX) 20 mg ORAL DAILY (6 AM) Objective PHYSICAL EXAM: Physical Exam Performed: GENERAL: Alert, no distress, cooperative LUNGS: Basal crepitations CARDIAC: Normal S1 and S2; no rubs, murmurs, or gallops EXTREMITIES: No ulcers, or edema BP 115/31 Pulse 60 Temp (Src) 97.2 (Temporal Artery) Resp 16 Ht 5' 7.008 (1.70m) Wt 184 lb 9.6 oz (83.7kg) SpO2 94% BMI 28.91 kg/(m2). DATA: Diagnostic tests reviewed for today's visit: Most recent labs and imaging results. Impression/Recommenda tions ? Sarina Lovett is a 73 year old female?with PMH of CAD (CABG in 2005, PCI to RCA in 2000 and 2015), aortic stenosis (s/p replacement in 2005 with #[address] [place] Bioprosthetic valve), HTN, HLD, DM2 admitted for NSTEMI ? S/p cath 03/26 with 2 DAVID placed in SVG to RCA, later developed JULIETA treated with IVF. Patient developed acute respiratory failure 03/27 required discontinuing IVF, ?IV lasix, and intermittent CPAP ? Remains on oxygen and intermittent CPAP at night ? 1- JULIETA on CKD 3 Contrast induced nephropathy Renal US reviewed Allow BP to rise. Off LOS/Procardia and hydralazine. Decrease Coreg to 6.25 BID Na tablets for hyponatremia NAHCO3 for acidosis Daily labs Will consider dialysis if continues to worse ? SIGNATURE: Germain De Los Santos MD PATIENT NAME: Sarina Lovett DATE: March 31, 2018 TIME: 10:57 AM PAGER: [phone] Addendum Pt seen and examined. Agree with Dr De Los Santos's note. Her renal function continues to worsen. Will need to consider dialysis by Tuesday if her renal function continues to worsen. Continue conservative therapy for contrast nephropathy Use Lasix as needed if she is symptomatically SOB Hyperphosphatemia - add Phoslo 1334mg tidac Met Acidosis - cont NaHCO3 1300mg tid Dr Real Normal [facility] Comp Metabolic Panelon 03-31 Albumin mass conc 3.2 g/dL Low 3.5-5.0 [facility] Comment on above: Performed By: #### P TT, NTBNP, HSTNT, CBCDIF, PT, CKCKMB, CMP #### [place] [address] ALP enzyme act/vol 80 U/L Normal 34-123 [facility] Comment on above: Performed By: #### P TT, NTBNP, HSTNT, CBCDIF, PT, CKCKMB, CMP #### [place] [address] ALT enzyme act/vol 20 U/L Normal 0-45 [facility] Comment on above: Performed By: #### P TT, NTBNP, HSTNT, CBCDIF, PT, CKCKMB, CMP #### [place] [phone] Anion gap molar conc 26 mmol/L High 9-18 [facility] Comment on above: Performed By: #### P TT, NTBNP, HSTNT, CBCDIF, PT, CKCKMB, CMP #### [place] [id number] AST enzyme act/vol 29 U/L Normal 7-40 [facility] Comment on above: Performed By: #### P TT, NTBNP, HSTNT, CBCDIF, PT, CKCKMB, CMP #### [place] [phone] Bilirubin mass conc 0.2 mg/dL Normal 0.2-1.3 [facility] Comment on above: Performed By: #### P TT, NTBNP, HSTNT, CBCDIF, PT, CKCKMB, CMP #### [place] [phone] Calcium mass conc 7.8 mg/dL Low 8.5-10.5 [facility] Comment on above: Performed By: #### P TT, NTBNP, HSTNT, CBCDIF, PT, CKCKMB, CMP #### [place] [phone] Chloride molar conc 88 mmol/L Low 98-110 [facility] Comment on above: Performed By: #### P TT, NTBNP, HSTNT, CBCDIF, PT, CKCKMB, CMP #### [place] [phone] CO2 molar conc 14 mmol/L Low 23-32 [facility] Comment on above: Performed By: #### P TT, NTBNP, HSTNT, CBCDIF, PT, CKCKMB, CMP #### [place] [phone] Creatinine mass conc 3.60 mg/dL High 0.70-1.40 [facility] Comment on above: Performed By: #### P TT, NTBNP, HSTNT, CBCDIF, PT, CKCKMB, CMP #### [place] [address] eGFR- Amer. 15 Low >60 [facility] Comment on above: Performed By: #### P TT, NTBNP, HSTNT, CBCDIF, PT, CKCKMB, CMP #### [place] [id number] GFR/1.73 sq M predicted among non-blacks MDRD vol rate/area (S/P/Bld) 12 . Low >60 [facility] Comment on above: Performed By: #### P TT, NTBNP, HSTNT, CBCDIF, PT, CKCKMB, CMP #### [place] [address] Glucose mass conc 132 mg/dL High 65-100 [facility] Comment on above: Performed By: #### P TT, NTBNP, HSTNT, CBCDIF, PT, CKCKMB, CMP #### [place] [id number] Potassium molar conc 3.2 mmol/L Low 3.5-5.0 [facility] Comment on above: Performed By: #### P TT, NTBNP, HSTNT, CBCDIF, PT, CKCKMB, CMP #### [place] [address] Protein mass conc 6.3 g/dL Normal 6.0-8.4 [facility] Comment on above: Performed By: #### P TT, NTBNP, HSTNT, CBCDIF, PT, CKCKMB, CMP #### [place] [id number] Sodium molar conc 128 mmol/L Low 132-148 [facility] Comment on above: Performed By: #### P TT, NTBNP, HSTNT, CBCDIF, PT, CKCKMB, CMP #### [place] [phone] Urea nitrogen mass conc 85 mg/dL High 8-25 [facility] Comment on above: Performed By: #### P TT, NTBNP, HSTNT, CBCDIF, PT, CKCKMB, CMP #### [place] [phone] Lactateon 03-31-2018 Lactate molar conc 0.6 mmol/L Normal 0.4-2.0 [facility] Comment on above: Performed By: #### P TT, NTBNP, HSTNT, CBCDIF, PT, CKCKMB, CMP #### [place] [phone] Magnesiumon 03-31-2018 Magnesium mass conc 2.1 mg/dL Normal 1.7-2.6 [facility] Comment on above: Performed By: #### P TT, NTBNP, HSTNT, CBCDIF, PT, CKCKMB, CMP #### [place] [phone] NURSING PROGon 03-31-2018 Protein mass conc HNO ID: [id number] Author: Neris (Rn) DEBBIE English Service: Abstract Author Type: Registered Nurse Type: Nursing Progress Note Filed: 03/31/2018 5:58 PM Note Text: Nursing Progress Note Patient Name: Sarina Lovett Patient Location: [address]/[place] [address] Daily Note: 1757: Family member states patient has a history of vertigo. 1500: Dr. Peters notified of ABG results. No further orders given, continue to monitor patient. 1423: verbal Orders from Dr. Peters 1422: Patient very drowsy c/o dizziness, orthos negative. Page sent out to Dr. Peters 1023: Page sent to [employer] Kamille Lopez [id number] Barry LOVETT hemoglobin this morning down to 7.8. No BMs yet, or other signs of bleeding. Okay to give Plavix and heparin? Neris Rojas [id number] 0848: Dr. Peters returned page, aware of labs. 0830: Dr. Real aware of abnormal labs. No orders received. Will continue to monitor. 0826:Page sent to Dr. Peters for abnormal labs. 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 Loss of lean body mass/visual muscle wasting: no, patient reports usual body weight 175#, bed scale read:187#. Continue to monitor. Admitting Diagnosis: Chest pain [R07.9] Present Diet Order: Changed from Heart Healthy 2 gm Na, Renal and Fluid restriction of 1000ml/day to clear liquids this morning. Is the patient having any pain that is interfering with oral/enteral intake? Unable to assess Allergies: ALLERGIES Allergen Reactions - Statins [Other] Caused severe muscular weakness. - Sulfa (Sulfonamide * Caused severe generalized swelling. - Tape [Other] Severe skin reaction; needs to use paper tape Reason for Visit: Nutrition screen: LOS > 6 days Food preferences: declined nutrition supplements at this time Nutrient intake assessment: Current intake of meals: 50 - 100% per epic Patient concerns/Issues: patient reports not eating much. Nausea present, diarrhea has improved. No pressure ulcers noted. Nursing Admission Assessment Malnutrition Score Tool: 0 Plan of Care: Recommendation Will continue to monitor and follow up with appetite, weight and supplement preference. Discharge Plan: Will discharge on Physicians diet order. MNT Billing Type: Routine Care/15 min 1 unit SIGNATURE: OPHELIA ARANDA DTR PATIENT NAME: Sarina Lovett DATE: March 31, 2018 TIME: 12:09 PM PAGER: [phone] [facility] PROGRESSon 03-31-2018 Protein mass conc HNO ID: [id number] Author: Andree Peters Service: General Internal Medicine Author Type: Physician Type: Progress Notes Filed: 04/01/2018 7:21 AM Note Text: INPATIENT PROGRESS NOTE SERVICE DATE: 03/31/2018 SERVICE TIME: 9:13 AM PRIMARY SERVICE: Internal Medicine Subjective CHIEF COMPLAINT: follow up on julieta, acute diverticulitis, Nstemi INTERVAL HPI: the pt feels better overall with abd pain and diarrhea. Denies nausea, vomiting fever or chills. She also denies any blood in the stools. She reports good appetite. She denies any cp, sob or cough. Current hospital medications: heparin 5,000 Units injection 5,000 Units SUBCUTANEOUS q 12 H sodium bicarbonate 1,300 mg tab(s) 1,300 mg ORAL TID enteric contrast (radiology procedure) ORAL DIRECTED PRN enteric contrast (radiology procedure) ORAL DIRECTED PRN acetaminophen 500-1,000 mg tab(s) (TYLENOL) 500-1,000 mg ORAL q 6 H PRN oxyCODONE IR 5-10 mg tab(s) (ROXICODONE) 5-10 mg ORAL q 6 H PRN ipratropium-albuterol 3 mL nebulizer solution (DUONEB) 3 mL INHALATION q 4 H while awake atorvastatin 80 mg tab(s) (LIPITOR) 80 mg ORAL AT BEDTIME nitroglycerin sublingual 0.4 mg tab(s) (NITROQUICK) 0.4 mg SUBLINGUAL PRN prochlorperazine 5 mg injection (COMPAZINE) 5 mg INTRAVENOUS q 6 H PRN carvedilol 12.5 mg tab(s) (COREG) 12.5 mg ORAL BID w MEALS insulin lispro injection (rapid acting) (HumaLOG) SUBCUTANEOUS w MEALS AND HS aspirin 81 mg chewable tab(s) 81 mg ORAL DAILY sertraline 150 mg tab(s) (ZOLOFT) 150 mg ORAL DAILY clopidogrel 75 mg tab(s) (PLAVIX) 75 mg ORAL DAILY buPROPion XL 150 mg tab(s) (WELLBUTRIN XL) 150 mg ORAL DAILY NaCl 0.9% 3-5 mL 3-5 mL INTRAVENOUS q 12 H ondansetron 4 mg tab(s) (ZOFRAN) 4 mg ORAL q 6 H PRN ondansetron (PF) 4 mg injection (ZOFRAN) 4 mg INTRAVENOUS q 6 H PRN polyethylene glycol 3350 17 g packet (MIRALAX, GLYCOLAX) 17 g ORAL DAILY PRN bisacodyl 10 mg suppository (DULCOLAX) 10 mg RECTAL DAILY PRN melatonin 1 mg tab(s) 1 mg ORAL HS PRN dextrose 40 % 15 g 15 g ORAL PRN glucagon 1 mg injection (GLUCAGEN) 1 mg INTRAMUSCULAR PRN dextrose 50% in water 25 mL syringe 12.5 g INTRAVENOUS PRN pantoprazole DR 20 mg tab(s) (PROTONIX) 20 mg ORAL DAILY (6 AM) Objective PHYSICAL EXAM: BP 115/31 Pulse 60 Temp (Src) 97.2 (Temporal Artery) Resp 16 Ht 5' 7.008 (1.70m) Wt 184 lb 9.6 oz (83.7kg) SpO2 94% BMI 28.91 kg/(m2). Physical Exam Performed GENERAL: Alert, no distress, cooperative SKIN: Skin color, texture, turgor normal. No rashes or lesions. NECK: No jugulovenous distention, No carotid bruits, Carotid pulse normal contour, Supple LUNGS: Lungs clear to auscultation, Good diaphragmatic excursion CARDIAC: Normal S1 and S2; no rubs, murmurs, or gallops ABDOMEN: LLQ tenderness, BS + EXTREMITIES: Extremities normal, no deformities, edema, clubbing or skin discoloration. Good capillary refill., No ulcers DATA: Diagnostic tests reviewed for today's visit: Most recent labs and imaging results. Assessment/Plan NSTEMI, CAD s/p PCI; HFrEF - chest pain resolved after PCI - overall stable clinically, appears euvolemic - ECHO 03/25/18 with EF 50%, grade I LV diastolic dysfunction; prosthetic aortic valve with mild aortic regurgitation - c/w ASA, plavix, statin, coreg - followed by cardiology ? JULIETA on CKD3 - contrast induced - avoid hypotension/nephrotox ic drugs - follow BMP - followed by nephrology ? HTN/HLD - BP has been running low - meds adjusted by cardiology - c/w coreg, hydralazine - c/w lipitor - follow BP closely - followed by cardiology ? Diverticulitis: - improving - followed by gi - cw current treatment ? Splenic lesion - US spleenpending ? Chronic anemia - without s/s active bleeding - follow closely - consider transfusion PRN to keep Hgb > or = 7 ? Dysthymia, H/o recurrent MDD, h/o CEDRIC - evaluated by psychiatry - c/w sertraline, welbutrin - c/w supportive care ? Probable COPD - clinically stable - c/w bronchodilator ? VTE Prophylaxis - heparin ? GI Prophylaxis - protonix ? Disposition - consult PT and OT to evaluate for post acute therapy needs - followed by CM Medication and Non-Pharmacologic VTE Prophylaxis/Anticoagu lants Anticoagulant AND Antiplatelet Medications Start Dose Route Frequency Ordered Stop 03/30/18 1000 heparin 5,000 Units injection 5,000 Units SUBCUTANEOUS EVERY 12 HOURS 03/30/18 0955 -- 03/25/18 0900 aspirin 81 mg chewable tab(s) 81 mg ORAL DAILY 03/24/182035 -- 03/24/18 2100 clopidogrel 75 mg tab(s) (PLAVIX) 75 mg ORAL DAILY 03/24/182035 -- 03/24/182044 vte non-pharmacologic prophylaxis - none indicated ([place], [place]) 03/24/182044 activity - mobilize patient ([place]) VTE Prophylaxis: VTE prophylaxis appropriate SIGNATURE: Andree Peters MD PATIENT NAME: Sarina Lovett DATE: March 31, 2018 TIME: 9:13 AM PAGER: [facility] Phosphoruson 03-31-2018 Phosphate mass conc 6.2 mg/dL High 2.5-4.5 [facility] Comment on above: Performed By: #### P TT, NTBNP, HSTNT, CBCDIF, PT, CKCKMB, CMP #### [place] [id number] [place] [address] THERAPY NTon 03-31-2018 THERAPY NT HNO ID: [id number] Author: Yanelis (Poultry Trimmer) LALO Jean Baptiste Service: (none) Author Type: Registered Resp Therapist Type: Therapy (PT/OT/Speech/Resp) Filed: 03/31/2018 2:48 PM Note Text: ABG drawn from Right Brachial including Lactate no ; Laci test no; pressure held, bleeding stopped. [facility] HEALTH 03-30-2018 ALLIED HEALTH HNO ID: [id number] Author: CAROLINA Guthrie (Ct) Service: Radiology Author Type: Commercial Management Accountant Type: Allied Health Filed: 03/30/2018 7:21 PM Note Text: Radiology Service Progress Note PATIENT NAME: Sarina Lovett DATE OF SERVICE: March 30, 2018 TIME: 7:20 PM PATIENT IDENTITY VERIFICATION COMPLETED USING TWO (2) METHODS: Patient confirmed name verbally and ID band matches.. PATIENT GENDER DATA: Female. status: : No status: NO. PATIENT RELEVANT IMPLANT DATA REVIEWED: Not Applicable RADIOLOGY DEPARTMENT: CT; Exam(s) Completed: Abdomen/Pelvis PERIPHERAL IV DATA: Inpatient: see LDA documentation SIGNED BY: CAROLINA Guthrie March 30, 2018 7:20 PM Normal [facility] Basic Metabolic Panlon 03-30 Anion gap molar conc 23 mmol/L High 9-18 [facility] Comment on above: Performed By: #### P TT, NTBNP, HSTNT, CBCDIF, PT, CKCKMB, CMP #### [place] [phone] Calcium mass conc 8.0 mg/dL Low 8.5-10.5 [facility] Comment on above: Performed By: #### P TT, NTBNP, HSTNT, CBCDIF, PT, CKCKMB, CMP #### [place] [phone] Chloride molar conc 93 mmol/L Low 98-110 [facility] Comment on above: Performed By: #### P TT, NTBNP, HSTNT, CBCDIF, PT, CKCKMB, CMP #### [place] [phone] CO2 molar conc 16 mmol/L Low 23-32 [facility] Comment on above: Performed By: #### P TT, NTBNP, HSTNT, CBCDIF, PT, CKCKMB, CMP #### [phone] Creatinine mass conc 3.15 mg/dL High 0.70-1.40 [facility] Comment on above: Performed By: #### P TT, NTBNP, HSTNT, CBCDIF, PT, CKCKMB, CMP #### [place] [address] eGFR- Amer. 18 Low >60 [facility] Comment on above: Performed By: #### P TT, NTBNP, HSTNT, CBCDIF, PT, CKCKMB, CMP #### [place] [id number] GFR/1.73 sq M predicted among non-blacks MDRD vol rate/area (S/P/Bld) 15 . Low >60 [facility] Comment on above: Performed By: #### P TT, NTBNP, HSTNT, CBCDIF, PT, CKCKMB, CMP #### [place] [address] Glucose mass conc 120 mg/dL High 65-100 [facility] Comment on above: Performed By: #### P TT, NTBNP, HSTNT, CBCDIF, PT, CKCKMB, CMP #### [place] [address] Potassium molar conc 3.9 mmol/L Normal 3.5-5.0 [facility] Comment on above: Performed By: #### P TT, NTBNP, HSTNT, CBCDIF, PT, CKCKMB, CMP #### [place] [address] Sodium molar conc 132 mmol/L Normal 132-148 [facility] Comment on above: Performed By: #### P TT, NTBNP, HSTNT, CBCDIF, PT, CKCKMB, CMP #### [place] [id number] Urea nitrogen mass conc 74 mg/dL High 8-25 [facility] Comment on above: Performed By: #### P TT, NTBNP, HSTNT, CBCDIF, PT, CKCKMB, CMP #### [address] [address] CASE MANAGEMon 03-30-2018 CASE MANAGEM HNO ID: [id number] Author: Bro Wood (Sw) Service: Care Management Author Type: Plastic Surgery Nurse Type: Care Mgt Progress Note Filed: 03/30/2018 2:19 PM Note Text: CARE MANAGEMENT PROGRESS NOTE SERVICE DATE: 03/30/2018 SERVICE TIME: 2:18 PM LOS: 6 days FREEDOM OF CHOICE GIVEN: Yes patient Financial Disclosure Provided Provider List: Home Care Waiting on [facility] choices. SIGNATURE: KARRIE FORTE PATIENT NAME: Sarina Lovett DATE: March 30, 2018 TIME: 2:18 PM PAGER/CONTACT #: [phone] [facility] CASE MANAGEM HNO ID: [id number] Author: Bro Wood (Sw) Service: Care Management Author Type: Plastic Surgery Nurse Type: Care Mgt Progress Note Filed: 03/30/2018 9:28 AM Note Text: CARE MANAGEMENT PROGRESS NOTE SERVICE DATE: 03/30/2018 SERVICE TIME: 9:25 AM LOS: 6 days Patient transferred to [facility]. PT has NSTEMI. Elevated creatinine. SW will follow for discharge needs. SIGNATURE: KARRIE FORTE PATIENT NAME: Sarina Lovett DATE: March 30, 2018 TIME: 9:25 AM PAGER/CONTACT #: [phone] [facility] CKon 03-30-2018 CK enzyme act/vol 242 U/L High 30-220 [facility] Comment on above: Performed By: #### P TT, NTBNP, HSTNT, CBCDIF, PT, CKCKMB, CMP #### [address] [address] CONSULTon 03-30-2018 CONSULT HNO ID: [id number] Author: Cindy Veliz (Pa) Service: Gastroenterology Author Type: Physician Lacrosse Coach Type: Consults Filed: 03/30/2018 7:48 PM Note Text: Attestation signed by Kishor Christensen at 04/11/2018 11:23 AM Abd pian, diarrhea r/o diverticulitis and ischemic colitis CONSULT: GI SERVICE SERVICE DATE: 03/30/2018 SERVICE TIME: 3:30pm REASON FOR CONSULT: abd pain, diarrhea, concern for diverticulitis. REQUESTING PHYSICIAN: Dr. Peters PRIMARY CARE PHYSICIAN: Sacha Ford MD Subjective Ms. Lovett is a 73 year old female who presents for abd pain, diarrhea, concern for diverticulitis. PMHx of CAD/WI s/p RCA stent, AVR in 2005, CKD, HTN, HLD who was admitted to with c/o chest pain found ot have NSTEMI s/p PCI/DAVID of SVG to RCA on 03/26/2018 c/b acute pulmonary edema and contrast nephropathy. During admission developed diarrhea with LLQ pain, therefore we have been consults. Pt hs h/o diverticulitis concern she is having issue again. Pt reports today her abd pain has improved some from yesterday. Diarrhea started yesterday with multiple episodes, may be improving some no BMs today. Some nausea. Denies fever and vomiting. Recrods from [facility] show CT scan 02/22/17 consistent with sigmoid diverticulitis. C diff negative U/s spleen today showing multiple lesions, past CT scan in 2013 also noted lesions suggested possible hemangiomas. PAST MEDICAL 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 - Aortic valve disorders - Cancer (HCC) - Coronary atherosclerosis of unspecified type of vessel, nez perce or graft Coronary Atherosclerosis - Diabetes (HCC) - Mixed hyperlipidemia Hyperlipidemia - Psychiatric disorder - Unspecified essential hypertension Essential hypertension PAST SURGICAL HISTORY Procedure Laterality Date - CARDIAC CATHETERIZATION HX - CORONARY STENT EA VESSEL david 02/2015 - HEART SURGERY HX aortic valve replacement, CABGx3 - LIGATE [place] TUBE FAMILY HISTORY Problem Relation Age of Onset - Ischemic Heart Disease Maternal Grandmother - Ischemic Heart Disease Paternal Grandfather - Diabetes Mother - Diabetes Maternal Grandmother - Diabetes Maternal Aunt - other (chf) Mother - Hypertension Father - Lipids Father Social History Substance Use Topics - Smoking status: Current Every Day Smoker Packs/day: 1.00 Years: 50.00 Last attempt to quit: 02/28/2013 - Smokeless tobacco: Never Used Comment: started in her teenage years - Alcohol use Yes Comment: rarely Prescriptions Prior to Admission: buPROPion XL (WELLBUTRIN XL) 150 mg 24 hr tablet Take 150 mg by mouth once daily. Disp: Rfl: 03/24/2018 at Unknown time ferrous sulfate 325 mg (65 mg iron) EC tablet Take 325 mg by mouth twice daily with meals. Disp: Rfl: 03/24/2018 at Unknown time VITAMIN D 50,000 unit capsule Take 50,000 Units by mouth once each week. Disp: Rfl: 03/24/2018 clopidogrel (PLAVIX) 75 mg tablet Take 1 tablet by mouth once daily. Disp: 30 tablet Rfl: 0 03/24/2018 carvedilol (COREG) 12.5 mg tablet Take 1 tablet by mouth twice daily with meals. Disp: 60 tablet Rfl: 0 03/24/2018 glimepiride (AMARYL) 1 mg tablet Take 1 tablet by mouth twice daily. Disp: 60 tablet Rfl: 0 03/24/2018 aspirin 81 mg chewable tablet Take 81 mg by mouth once daily. Disp: Rfl: 03/24/2018 lisinopril (ZESTRIL, PRINIVIL) 20 mg tablet Take 20 mg by mouth once daily. Disp: Rfl: 03/24/2018 sertraline (ZOLOFT) 100 mg tablet Take 150 mg by mouth once daily. Disp: Rfl: 03/24/2018 omeprazole (PRILOSEC) 20 mg capsule Take 20 mg by mouth once daily. Disp: Rfl: 03/24/2018 Current hospital medications: heparin 5,000 Units injection 5,000 Units SUBCUTANEOUS q 12 H acetaminophen 500-1,000 mg tab(s) (TYLENOL) 500-1,000 mg ORAL q 6 H PRN oxyCODONE IR 5-10 mg tab(s) (ROXICODONE) 5-10 mg ORAL q 6 H PRN ipratropium-albuterol 3 mL nebulizer solution (DUONEB) 3 mL INHALATION q 4 H while awake atorvastatin 80 mg tab(s) (LIPITOR) 80 mg ORAL AT BEDTIME nitroglycerin sublingual 0.4 mg tab(s) (NITROQUICK) 0.4 mg SUBLINGUAL PRN prochlorperazine 5 mg injection (COMPAZINE) 5 mg INTRAVENOUS q 6 H PRN carvedilol 12.5 mg tab(s) (COREG) 12.5 mg ORAL BID w MEALS hydrALAZINE 25 mg tab(s) (APRESOLINE) 25 mg ORAL q 8 H insulin lispro injection (rapid acting) (HumaLOG) SUBCUTANEOUS w MEALS AND HS aspirin 81 mg chewable tab(s) 81 mg ORAL DAILY sertraline 150 mg tab(s) (ZOLOFT) 150 mg ORAL DAILY clopidogrel 75 mg tab(s) (PLAVIX) 75 mg ORAL DAILY buPROPion XL 150 mg tab(s) (WELLBUTRIN XL) 150 mg ORAL DAILY NaCl 0.9% 3-5 mL 3-5 mL INTRAVENOUS q 12 H ondansetron 4 mg tab(s) (ZOFRAN) 4 mg ORAL q 6 H PRN ondansetron (PF) 4 mg injection (ZOFRAN) 4 mg INTRAVENOUS q 6 H PRN polyethylene glycol 3350 17 g packet (MIRALAX, GLYCOLAX) 17 g ORAL DAILY PRN bisacodyl 10 mg suppository (DULCOLAX) 10 mg RECTAL DAILY PRN melatonin 1 mg tab(s) 1 mg ORAL HS PRN dextrose 40 % 15 g 15 g ORAL PRN glucagon 1 mg injection (GLUCAGEN) 1 mg INTRAMUSCULAR PRN dextrose 50% in water 25 mL syringe 12.5 g INTRAVENOUS PRN pantoprazole DR 20 mg tab(s) (PROTONIX) 20 mg ORAL DAILY (6 AM) Allergies As of Date: 03/24/2018 Allergen Noted Reaction STATINS [OTHER] 03/28/2003 SULFA (SULFONAMIDE ANTIBIOTICS) 03/28/2003 TAPE [OTHER] 02/02/2006 Fully Assessed 03/24/2018 COMPLETE REVIEW OF SYSTEMS: GENERAL: No weight loss, malaise or fevers RESPIRATORY: Negative for cough, hemoptysis, wheezing, COPD, dyspnea or shortness of breath CARDIOVASCULAR: See HPI GI: See HPI See above HPI Objective PHYSICAL EXAM: Physical Exam Performed: GENERAL: Alert, Cooperative ABDOMEN: +BS, abd soft, +tenderness LLQ and suprapubic region. BP 126/45 Pulse 69 Temp (Src) 97.3 (Temporal Artery) Resp 18 Ht 5' 7.008 (1.70m) Wt 176 lb 14.4 oz (80.2kg) SpO2 89% BMI 27.70 kg/(m2). DATA: Diagnostic tests reviewed for today's visit: Most recent labs and imaging results. Impression/Recommenda tions 1. Lower abd pain: started yesterday, improved some today, some tenderness on exam, h/o diverticulitis. 2. Diarrhea: frequent unformed stools yesterday, c diff negative, no BMs today. No fever. Plan: Enteric stool panel CT abd w oral contrast for further assessment of lower abd pain r/o diverticulitis Will continue to follow Pt seen with Dr. Christensen SIGNATURE: Cindy Veliz PA-C PATIENT NAME: Sarina Lovett DATE: March 30, 2018 TIME: 10:27 AM PAGER: [phone] [facility] CONSULT PROGon 03-30-2018 Protein mass conc HNO ID: [id number] Author: Marito Real Service: Nephrology Author Type: Physician Type: Consult Progress Note Filed: 03/30/2018 5:10 PM Note Text: CONSULT PROGRESS NOTE SERVICE DATE: 03/30/2018 SERVICE TIME: 13.15 CONSULTING SERVICE: NEPHROLOGY Subjective INTERVAL HPI: No events overnight Remains on 2L. Symptoms improved Current hospital medications: heparin 5,000 Units injection 5,000 Units SUBCUTANEOUS q 12 H sodium bicarbonate 1,300 mg tab(s) 1,300 mg ORAL TID acetaminophen 500-1,000 mg tab(s) (TYLENOL) 500-1,000 mg ORAL q 6 H PRN oxyCODONE IR 5-10 mg tab(s) (ROXICODONE) 5-10 mg ORAL q 6 H PRN ipratropium-albuterol 3 mL nebulizer solution (DUONEB) 3 mL INHALATION q 4 H while awake atorvastatin 80 mg tab(s) (LIPITOR) 80 mg ORAL AT BEDTIME nitroglycerin sublingual 0.4 mg tab(s) (NITROQUICK) 0.4 mg SUBLINGUAL PRN prochlorperazine 5 mg injection (COMPAZINE) 5 mg INTRAVENOUS q 6 H PRN carvedilol 12.5 mg tab(s) (COREG) 12.5 mg ORAL BID w MEALS hydrALAZINE 25 mg tab(s) (APRESOLINE) 25 mg ORAL q 8 H insulin lispro injection (rapid acting) (HumaLOG) SUBCUTANEOUS w MEALS AND HS aspirin 81 mg chewable tab(s) 81 mg ORAL DAILY sertraline 150 mg tab(s) (ZOLOFT) 150 mg ORAL DAILY clopidogrel 75 mg tab(s) (PLAVIX) 75 mg ORAL DAILY buPROPion XL 150 mg tab(s) (WELLBUTRIN XL) 150 mg ORAL DAILY NaCl 0.9% 3-5 mL 3-5 mL INTRAVENOUS q 12 H ondansetron 4 mg tab(s) (ZOFRAN) 4 mg ORAL q 6 H PRN ondansetron (PF) 4 mg injection (ZOFRAN) 4 mg INTRAVENOUS q 6 H PRN polyethylene glycol 3350 17 g packet (MIRALAX, GLYCOLAX) 17 g ORAL DAILY PRN bisacodyl 10 mg suppository (DULCOLAX) 10 mg RECTAL DAILY PRN melatonin 1 mg tab(s) 1 mg ORAL HS PRN dextrose 40 % 15 g 15 g ORAL PRN glucagon 1 mg injection (GLUCAGEN) 1 mg INTRAMUSCULAR PRN dextrose 50% in water 25 mL syringe 12.5 g INTRAVENOUS PRN pantoprazole DR 20 mg tab(s) (PROTONIX) 20 mg ORAL DAILY (6 AM) Objective PHYSICAL EXAM: Physical Exam Performed: GENERAL: Alert, no distress, cooperative NECK: No jugulovenous distention LUNGS: Basal crepitations CARDIAC: Normal S1 and S2; no rubs, murmurs, or gallops BREASTS: Exam deferred EXTREMITIES: No ulcers, No edema BP 109/44 Pulse 60 Temp (Src) 96.8 (Temporal Artery) Resp 18 Ht 5' 7.008 (1.70m) Wt 176 lb 14.4 oz (80.2kg) SpO2 93% BMI 27.70 kg/(m2). DATA: Diagnostic tests reviewed for today's visit: Most recent labs and imaging results. Impression/Recommenda tiely Sarina Lovett is a 73 year old female?with PMH of CAD (CABG in 2005, PCI to RCA in 2000 and 2015), aortic stenosis (s/p replacement in 2005 with #[address] [employer] Bioprosthetic valve), HTN, HLD, DM2 admitted for NSTEMI ? S/p cath 03/26 with 2 DAVID placed in SVG to RCA, later developed JULIETA treated with IVF. Patient developed acute respiratory failure 03/27 required discontinuing IVF, ?IV lasix, and intermittent CPAP ? ? ? 1- JULIETA on CKD 3 Possible contrast induced nephropathy Renal US reviewed Avoid nephrotoxic medications Avoid low BP. Stop procardia Daily labs Lasix as needed for fluid overload/worsening SOB ? 2- HTN On hydralazine Hold LOS/Procardia ? 3- Anion gap acidosis HCO3 TID ? 4-Elevated CK Improving SIGNATURE: Germain De Los Santos MD PATIENT NAME: Sarina Lovett DATE: March 30, 2018 TIME: 1:12 PM PAGER: Addendum Patient seen and examined. Agree with Dr. De Los Santos's progress note. Her renal function continues to worsen from her contrast nephropathy. Stop Procardia and allow her BP to rise. Stop Hydralazine as well Dr Real [facility] CT ABD/PEL WO IVCONon 2018 CT ABD/PEL WO IVCON * * *Final Report* * * DATE OF EXAM: Mar 30 2018 7:20PM [facility] 0531 - CT ABD/PEL WO IVCON / PROCEDURE REASON: Abd pain, unspecified * * * * Physician Interpretation * * * * EXAMINATION: CT ABDOMEN AND PELVIS WITHOUT IV CONTRAST CLINICAL HISTORY: Abd pain, unspecified, Oral contrast, NO IV contrast Assess for diverticulitis :->Lower abd pain assess for diverticulitis PT CO LOWER ABD PAIN TECHNIQUE: Non-IV contrast imaging of the abdomen and pelvis was performed using standard technique, scanning from just above the dome of the diaphragm to the symphysis pubis. Unenhanced imaging is limited for the evaluation of some intra-abdominal and pelvic pathology. MQ: [id number]_3 Contrast: IV: None CT Radiation dose: Integrated Dose-length product (DLP) for this visit = 556 mGy*cm. CT Dose Reduction Employed: Automated exposure control (AEC) COMPARISON: 05/17/2013 RESULT: Abdomen / Pelvis: Liver: Unremarkable. Biliary: S/p cholecystectomy. Spleen: No splenomegaly. Multiple splenic lesions are noted and are new or changed compared to the prior CT. Pancreas: Unremarkable. Adrenals: Stable mild thickening of the left adrenal gland. Unremarkable right adrenal gland. Kidneys: No calculus, hydronephrosis or finding to suggest a cyst or mass in the unenhanced kidney. Atrophic left kidney. Corticomedullary differentiation of the right kidney is somewhat unusual for an unenhanced CT. Clinical correlation for history of recent history of IV contrast administration and correlation with renal function recommended. GI Tract: Extensive colonic diverticulosis with associated stranding in the sigmoid mesentery compatible with acute sigmoid diverticulitis. The appendix is not visualized. Lymph Nodes: Mildly enlarged periportal node measuring 1.3 cm in short axis, unchanged. Mesentery/peritoneum: No ascites. Retroperitoneum: No mass. Vasculature: Arterial atherosclerotic disease without aneurysm. Pelvis: No mass or ascites. Uterus and adnexa are unremarkable by CT. Bones/Soft Tissues: No acute abnormality. Stable L1 vertebral body compression fracture without and with complete loss. 6 lumbar type vertebral bodies. Degenerative changes of the spine. Degenerative changes of the hips. Lower thorax: Small bilateral effusions with overlying atelectasis, right greater than left. IMPRESSION: 1. Acute, uncomplicated sigmoid diverticulitis. 2. Multiple splenic lesions are noted and are new or changed compared to the prior CT. These are incompletely evaluated on this study. Recommend MRI for further evaluation. 3. Small bilateral effusions with overlying atelectasis, right greater than left. Armature Rewinder: [facility] Transcribe Date/Time: Mar 30 2018 10:04P Dictated by : KUSH BARAJAS MD This examination was interpreted and the report reviewed and electronically signed by: KUSH BARAJAS MD on Mar 30 2018 10:23PM EST [id number] Normal [facility] Magnesiumon 03-30-2018 Magnesium mass conc 2.3 mg/dL Normal 1.7-2.6 [facility] Comment on above: Result Comment: Revi ewed Performed By: #### P TT, NTBNP, HSTNT, CBCDIF, PT, CKCKMB, CMP #### [facility] [address] [place] [address] NURSING PROGon 03-30-2018 Protein mass conc HNO ID: [id number] Author: Shiv (Rn) DEBBIE Majano Service: (none) Author Type: Registered Nurse Type: Nursing Progress Note Filed: 03/30/2018 6:55 AM Note Text: Nursing Progress Note Patient Name: Sarina Lovett Patient Location: [place] [address] Daily Note:patient arrives from [facility] by wheelchair, NPR complete, tele maintained, belongings with patient, oriented patient to room. This note was completed by: Shiv Majano RN [facility] PROGRESSon 03-30-2018 Protein mass conc HNO ID: [id number] Author: Mesha Ferraro Service: General Internal Medicine Author Type: Nurse Practitioner Type: Progress Notes Filed: 03/30/2018 9:56 AM Note Text: INTERNAL MEDICINE PROGRESS NOTE SERVICE DATE: 03/30/18 SERVICE TIME: 9:35 AM ADMITTING PHYSICIAN: Andree Peters Subjective CHIEF COMPLAINT: LLQ abdominal pain and diarrhea Current Facility-Administered Medications: acetaminophen 500-1,000 mg tab(s) (TYLENOL) 500-1,000 mg ORAL q 6 H PRN Trinidad D Gajulapalli 650 mg at 03/29/182050 oxyCODONE IR 5-10 mg tab(s) (ROXICODONE) 5-10 mg ORAL q 6 H PRN Trinidad D Gajulapalli 10 mg at 03/29/182050 ipratropium-albuterol 3 mL nebulizer solution (DUONEB) 3 mL INHALATION q 4 H while awake Ariela Martinez 3 mL at 03/30/18 0808 atorvastatin 80 mg tab(s) (LIPITOR) 80 mg ORAL AT BEDTIME E Doris Nukta 80 mg at 03/28/182112 nitroglycerin sublingual 0.4 mg tab(s) (NITROQUICK) 0.4 mg SUBLINGUAL PRN Larisa Massier 0.4 mg at 03/26/18 1453 prochlorperazine 5 mg injection (COMPAZINE) 5 mg INTRAVENOUS q 6 H PRN Larisa Massier 5 mg at 03/26/18 1508 carvedilol 12.5 mg tab(s) (COREG) 12.5 mg ORAL BID w MEALS Larisa Massier 12.5 mg at 03/30/18 0843 hydrALAZINE 25 mg tab(s) (APRESOLINE) 25 mg ORAL q 8 H Larisa Massier 25 mg at 03/30/18 0727 insulin lispro injection (rapid acting) (HumaLOG) SUBCUTANEOUS w MEALS AND HS Larisa Massier 3 Units at 03/29/18 1840 aspirin 81 mg chewable tab(s) 81 mg ORAL DAILY Chiara Onger 81 mg at 03/30/18 0844 sertraline 150 mg tab(s) (ZOLOFT) 150 mg ORAL DAILY Chiara Onger 150 mg at 03/30/18 0844 clopidogrel 75 mg tab(s) (PLAVIX) 75 mg ORAL DAILY Chiara Onger 75 mg at 03/30/18 0844 buPROPion XL 150 mg tab(s) (WELLBUTRIN XL) 150 mg ORAL DAILY Chiara Onger 150 mg at 03/30/18 0844 NaCl 0.9% 3-5 mL 3-5 mL INTRAVENOUS q 12 H Chiara Onger 5 mL at 03/30/18 0845 ondansetron 4 mg tab(s) (ZOFRAN) 4 mg ORAL q 6 H PRN Chiara Onger Or ondansetron (PF) 4 mg injection (ZOFRAN) 4 mg INTRAVENOUS q 6 H PRN Chiara Onger 4 mg at 03/27/18 1711 polyethylene glycol 3350 17 g packet (MIRALAX, GLYCOLAX) 17 g ORAL DAILY PRN Chiara Onger bisacodyl 10 mg suppository (DULCOLAX) 10 mg RECTAL DAILY PRN Chiara Onger melatonin 1 mg tab(s) 1 mg ORAL HS PRN Chiara Onger dextrose 40 % 15 g 15 g ORAL PRN Chiara Onger Or glucagon 1 mg injection (GLUCAGEN) 1 mg INTRAMUSCULAR PRN Chiara Onger Or dextrose 50% in water 25 mL syringe 12.5 g INTRAVENOUS PRN Chiara Latham pantoprazole DR 20 mg tab(s) (PROTONIX) 20 mg ORAL DAILY (6 AM) Larisa Dougherty 20 mg at 03/30/18 0727 INTERVAL HISTORY OF PRESENT ILLNESS: Patient seen sitting up in a chair. She complains of some LLQ abdominal pain and diarrhea with about 6 BMs per day. She has a h/o diverticulitis and feels like this is acting up currently. Patient has a mild R temporal headache and some SOB on exertion as well. Denies dizziness, CP, palpitations, nausea, vomiting, or urinary issues. Objective PHYSICAL EXAM: BP (!) 126/45 Pulse 69 Temp 36.3 ?C (97.3 ?F) (Temporal Artery) Resp 18 Ht 170.2 cm (5' 7.01 ) Wt 80.2 kg (176 lb 14.4 oz) SpO2 89% BMI 27.70 kg/m? BMI 27.70 kg/(m2) GENERAL: Alert, no distress, cooperative, sitting up in a chair SKIN: warm and dry OROPHARYNX: MMM NECK: Supple LUNGS: Lungs diminished but clear to auscultation. Good diaphragmatic excursion. CARDIAC: RRR with murmur ABDOMEN: Abdomen soft, diffuse tenderness, mostly LLQ, no rebound tenderness, BS normal EXTREMITIES: No ulcers, no edema BLE, calves nontender bilaterally NEURO: Alert, oriented X 3, no gross focal deficits PULSES: 2+ radial DATA: Diagnostic tests reviewed for today's visit: Most recent labs and imaging results. Imagin03/28/18 CXR: IMPRESSION: Persistent bilateral alveolar infiltrates without appreciable interval Change 03/26/18 Renal US: IMPRESSION: Increase echogenicity of the renal cortex, suggestive of medical renal disease. Segmental cortical atrophy bilaterally. No hydronephrosis or other obvious abnormality in the visualized kidneys. Multiple splenic masses and cysts, which represents interval change from prior ultrasound study. Further evaluation with CT or MRI is recommended. CBC, Coags, BMP, Mg, Phos Recent Labs 03/30/18 0543 03/29/18 0437 03/28/18 0336 WBC -- 11.20* -- HB -- 8.3* -- HCT -- 25.3* -- PLT -- 132* -- NA 132 133 135 K 3.9 3.4* 4.1 CHLOR 93* 94* 96* CO2 16* 16* 14* BUN 74* 59* 41* CREAT 3.15* 2.63* 2.05* GLUC 120* 122* 146* CA 8.0* 8.0* 8.4* MG 2.3 1.6* 1.7 Liver Function, Amylase, AND Lipase Recent Labs 03/28/18 1252 LACT 1.1 Cardiac Enzymes Recent Labs 03/30/18 0543 03/29/18 0437 CK 242* 432* Assessment/Plan NSTEMI, CAD s/p PCI; HFrEF - chest pain resolved after PCI - overall stable clinically, appears euvolemic - ECHO 03/25/18 with EF 50%, grade I LV diastolic dysfunction; prosthetic aortic valve with mild aortic regurgitation - c/w ASA, plavix, statin, coreg - followed by cardiology JULIETA on CKD3 - contrast induced - avoid hypotension/nephrotox ic drugs - follow BMP - followed by nephrology HTN/HLD - BP has been running low - meds adjusted by cardiology - c/w coreg, hydralazine - c/w lipitor - follow BP closely - followed by cardiology Abdominal pain, diarrhea, leukocytosis - LLQ abdominal pain, about 6 loose stools per day - stool negative for Cdiff - patient with h/o diverticulitis and states symptoms are similar - consult GI for further evaluation and management Splenic lesion - US spleen ordered to further evaluate Chronic anemia - without s/s active bleeding - follow closely - consider transfusion PRN to keep Hgb > or = 7 Dysthymia, H/o recurrent MDD, h/o CEDRIC - evaluated by psychiatry - c/w sertraline, welbutrin - c/w supportive care - encourage outpatient follow up with psychiatry/psychology - psychiatry signed off, will reconsult PRN Probable COPD - clinically stable - c/w bronchodilators - encourage smoking cessation - recommend outpatient PFTs Tobacco use disorder - encourage smoking cessation VTE Prophylaxis - heparin GI Prophylaxis - protonix Disposition - consult PT and OT to evaluate for post acute therapy needs - followed by CM Discussed with Dr. Peters, RN, patient. Time spent >30 minutes. SIGNATURE: Mesha Ferraro APRN.INFORMATION DEVELOPER PATIENT NAME: Sarina Lovett DATE: 03/30/18 TIME: 9:35 AM PAGER/CONTACT #: [phone] [facility] THERAPY NTon 03-30-2018 THERAPY NT HNO ID: [id number] Author: Kindra Mei/Shima Harper Service: Occupational Therapy Author Type: Occupational Therapist Type: Therapy (PT/OT/Speech/Resp) Filed: 03/30/2018 2:40 PM Note Text: Occupational Therapy Evaluation SERVICE DATE: 03/30/2018 SERVICE TIME: 1315 to 1340 ROOM: [place] [address] Recommended Discharge Disposition: Home OT Anticipated Discharge Needs: Physical Assist at Home Physical Assist at Home for: Cleaning;Laundry;Meal s;Stairs;Self Care;Shopping;Transpo rtation Recommended Discharge Equipment: Grab Bars-Shower;Grab Bars-Toilet;Hand Held Shower;Long Handled Sponge;Wheeled Walker;International Sourcing Manager;Shower Chair OT Recommendations to Nursing: To Bathroom for ADL?s /and or Toileting;OOB for meals;With assist of 1 person Equipment: Wheeled Walker OT 6 Clicks Score: 21 Precautions/Activity Restrictions: Fall Risk;Lines/Tubes/Drai ns;Cardiac Isolation Type: None ASSESSMENT: The patient's deficits as related to occupational therapy include impairments with completing activities of daily living, decreased activity tolerance, decreased balance, decreased functional mobility, and decreased strength. The pt may benefit from home occupational therapy in order to continue to progress with completing activities of daily living, learn energy conservation and compensatory techniques while participating in I/ADLs, improve balance, increase strength, and improve functional mobility. The patient has adequate support and social structure for a reasonably safe discharge home at current level. Patient Disposition at Start of Session: Supine in Bed;Call Mcdaniels in Reach;Bed Alarm Patient Disposition at End of Session: Supine in Bed;Call Mcdaniels in Reach;Bed Alarm Tolerated Full Session Occupational Therapy Problem List: Impaired Self Care;Decreased Activity Tolerance Patient /Caregiver Goals: Go Home Goals for Plan of Care: Grooming with: Independent Upper Body Bathing with: Modified Independent Upper Body Dressing with: Modified Independent Lower Body Bathing with: Supervision Lower Body Dressing with: Modified Independent Toilet Hygiene with: Modified Independent Chair Transfer with: Modified Independent Toilet Transfer with: Modified Independent Tolerate (minutes of functional activity): 30 Functional Activity with: Modified Independent Kitchen Mobility Tasks with: Stand By Assistance Additional Goal 1: Pt will demo 4/4 energy conservation techniques during ADLs with min verbal cues Progress Toward Goals: Progressing as expected Rehab Potential: Good PLAN: Treatment Frequency (times per week): 1 (+1 PRN visit) Current admission Treatment Interventions: Education;Self Care / Home Management;Energy Conservation Training;Joint Mobility;Strengthenin g;Functional Mobility Training;Balance Training Plan of Care developed with: Patient TREATMENT INTERVENTIONS: Therapy Diagnosis: Reduced mobility-other;Decrea sed activities of daily living (ADL) Interventions Provided: Evaluation;Self Custodial Management (07825) $ Evaluation-Low (70241) Billed Units: 1 unit Self Custodial Management (57205) Treatment Minutes: 10 1 unit Skilled Intervention(s): Instructed in energy conservation including balancing rest/activity, maintaining good posture, pursed lip breathing Provided cuing for hand/oral hygiene with set up assist to complete in sitting (as energy conservation technique) to brush teeth, with good sitting balance with S Provided instruction, cuing and facilitation for lower body dressing with education on completing in sitting as energy conservation technique Education in OT and OT POC Pt completed supine to sit with SBA. The pt was educated on allowing body to become acclimated to changing positions (supine to sit) before changing positions again (sit to stand) in order to increase safety and independence in task and decrease risk of falls. Facilitated patient with maintaining proper balance, educated pt on upright posture, and assisted pt with weight shifting while sitting EOB with S in order to increase strength and balance in prep for ADLs and safe transfers. Pt completed sit to stand with CGA. She returned to supine (due to fatigue) with SBA. Educated on energy conservation techniques including the importance of pursed lip breathing, pacing self, maintaining good posture, and organizing self and time in order to increase functional activity tolerance and independence and decrease fatigue and risk of falls. Handout given to pt and reviewed with pt. Total Timed Code Treatment Minutes: 10 Total Treatment Time (minutes): 25 FUNCTIONAL G CODE: OT 6 Clicks Score: 21 (03/30/181314) Self Care Current Status (G8987): CJ (03/30/181314) Self Care Goal Status (G8988): CI (03/30/181314) Based on clinical assessment and the score on the 6 Clicks Functional Assessment Tool, the G code and corresponding severity modifiers are documented above. SUBJECTIVE: Current Hospital Course: Chart reviewed; 73 y/o F admitted with chest pain, dizziness, NSTEMI, acute hypoxic respiratory failure Reason for Occupational Therapy Consult: admitted with chest pain, dizziness, NSTEMI, acute hypoxic respiratory failure Relevant Past Medical History: acute [place], CAD, CABG, CKD, HTN, diverticulitis, psych d/o, HPL Patient Report: I was up in the chair this morning, I want to rest now Home Environment Patient Lives With: Spouse Assistance Available: PRN Entry To Home: Stairs;Without Rail Number Of Stairs Into Home: 4 Number Of Stairs To Bed/Bath: 12 Stairs to Bed/Bath with: No Rail Tub/Shower Type: tub shower Equipment Owned: Cane;Rollator;Shower Chair Prior Functional Level: Within Functional Limits Prior Functional Level Comments: patient ambulates indep without device, indep ADL's, shares IADL's with spouse; has 2 children in the area that are supportive; pt drives OBJECTIVE: Cognition/Communicati on Deficits Responsiveness: Alert;Awake Follows Commands: 2-step Commands;Cueing Needed Cueing to Follow Commands: Minimum CURRENT FUNCTIONAL STATUS: Current Activities of Daily Living Assist Level Feeding Modified Independent Grooming Set Up Bathing Upper Body Stand By Assistance Bathing Lower Body Minimal Assistance Dressing Upper Body Stand By Assistance Dressing Lower Body Minimal Assistance Toileting Minimal Assistance Instrumental Activities of Daily Living Assist Level Meal/Beverage Prep Light Cleaning Laundry Medication Management with Strategies Functional Mobility Assist Level Rolling Stand By Assistance Supine to Sit Stand By Assistance Sit to Supine Stand By Assistance Scooting Stand By Assistance Sit to Stand Contact Guard Assistance Stand to Sit Contact Guard Assistance Bed to Chair Toilet/Commode Functional Mobility Balance: Static Sitting;Dynamic Sitting;Static Standing;Dynamic Standing Static Sitting Balance: Independent Dynamic Sitting Balance: Supervision Static Standing Balance: Stand By Assistance Dynamic Standing Balance: Contact Guard Assistance Sitting Activity: ADLs, 5 minutes Please see discipline specific clinical documentation flowsheet for complete details for this therapy evaluation/treatment. SIGNATURE: RUFINO Darnell/Shima PATIENT NAME: Sarina Lovett DATE: March 30, 2018 TIME: 2:38 PM [facility] THERAPY NT HNO ID: [id number] Author: Ade Devlin Service: Physical Therapy Author Type: Physical Therapist Type: Therapy (PT/OT/Speech/Resp) Filed: 03/30/2018 12:42 PM Note Text: Physical Therapy Evaluation SERVICE DATE: 03/30/2018 SERVICE TIME: 1140 to 1205 ROOM: [place] [address] Recommended Discharge Disposition: Home PT Anticipated Discharge Needs: Physical Assist at Home Physical Assist at Home for: Cleaning;Laundry;Meal s;Stairs;Self Care;Shopping;Transpo rtation PT Recommendations to Nursing: Ambulate with device;To bathroom;In halls;With assist of 1 person Device: Wheeled Walker PT 6 Clicks Score: 21 Precautions/Activity Restrictions: Fall Risk;Lines/Tubes/Drai ns;Cardiac Isolation Type: None ASSESSMENT : Patient's impairments as related to Physical Therapy include decreased strength/endurance, impaired balance, functional mobility and self care performance. Patient may benefit from Home Physical Therapy in order to continue to progress functional mobility and ADL skills. Patient has adequate support and social structure for reasonably safe discharge home at current level. Patient Disposition at Start of Session: Supine in Bed Patient Disposition at End of Session: Supine in Bed Tolerated Full Session Physical Therapy Problem List: Functional Mobility Impairment;Decreased Activity Tolerance;Education Deficit Patient /Caregiver Goals: Go Home Goals for Plan of Care: Able to perform HEP with: Independent Transfer sit to/from stand with: Supervision Ambulate with: Stand By Assistance Distance: 200 Device: Wheeled Walker Ambulate up and down steps with: Contact Guard Assistance Number of steps: 12 Device: Rail Rehab Potential: Good PLAN: Treatment Frequency (times per week): 2 Current admission Treatment Interventions: Education;Energy Conservation Training;Strengthenin g;Functional Mobility Training Plan of Care developed with: Patient TREATMENT INTERVENTIONS: Therapy Diagnosis: Reduced mobility-other;Muscle Weakness (generalized) Interventions Provided: Evaluation;Gait Training (66097) $ Evaluation-Low (39130) Billed Units: 1 unit Gait Training (28105) Treatment Minutes: 10 1 unit Skilled Intervention(s): Instruction in sit to stand technique with proper hand placement and body positioning at edge of bed/chair, Instruction in stand to sit technique with LE's touching chair/bed and reaching back for surface, Instruction in sequencing, gait pattern, Instruction in correction of gait deviations, Instruction in use of equipment, cues for sequence and pattern and posture; cues for safe walker management and proximity, educated in benefits of using a walker for balance, support and activity tolerance, O2 maintained during session Total Timed Code Treatment Minutes: 10 Total Treatment Time (minutes): 25 FUNCTIONAL G CODE: PT 6 Clicks Score: 21 (03/30/18 1140) Based on clinical assessment and the score on the 6 Clicks Functional Assessment Tool, the G code and corresponding severity modifiers are documented above. SUBJECTIVE: Current Hospital Course: Chart reviewed; pt admit with chest pain, NSTEMI Reason for Physical Therapy Consult : eval and treat admit with NSTEMI Relevant Past Medical History: CAD,CABG,CKD,HTN,dive rticulitis Patient Report: I'm a little dizzy. Home Environment Patient Lives With: Spouse Assistance Available: PRN Entry To Home: Stairs;Without Rail Number Of Stairs Into Home: 4 Number Of Stairs To Bed/Bath: 12 Stairs to Bed/Bath with: No Rail Tub/Shower Type: tub shower Equipment Owned: Cane;Rollator;Shower Chair Prior Functional Level: Within Functional Limits Prior Functional Level Comments: patient ambulates indep without device, indep ADL's, shares IADL's with spouse; has 2 children in the area that are supportive; pt drives OBJECTIVE: CURRENT FUNCTIONAL STATUS: Current Functional Mobility Assist Level Additional Information Rolling Modified Independent Supine to Sit Supervision Sit to Supine Supervision Scooting Supervision Sit to Stand Contact Guard Assistance Stand to Sit Stand By Assistance Bed to Chair Toilet/Commode Gait Contact Guard Assistance Gait Device: Wheeled Walker Gait Distance (feet): 100 Stairs Curb Step Car Transfer General Gait Deviations: Bruna decreased;Lateral sway increased;Step length decreased Balance: Static Standing;Dynamic Standing Static Standing Balance: Stand By Assistance Dynamic Standing Balance: Contact Guard Assistance [facility]: 7: Walk 25 feet or more Please see discipline specific clinical documentation flowsheet for complete details for this therapy evaluation/treatment. SIGNATURE: Ade Devlin PT PATIENT NAME: Sarina Lovett DATE: March 30, 2018 TIME: 12:39 PM [facility] US ABD SPLEENon 03-30-2018 US ABD SPLEEN * * *Final Report* * * DATE OF EXAM: Mar 30 2018 11:09AM U 1039 - US ABD SPLEEN / PROCEDURE REASON: Disease of spleen, unspecified * * * * Physician Interpretation * * * * EXAMINATION: SPLEEN ULTRASOUND CLINICAL HISTORY: Disorder of spleen TECHNIQUE: Sonography of the spleen was performed. Images were obtained and stored in a permanent archive. MQ: [id number] COMPARISON: Ultrasound kidney 03/26/2018, ultrasound spleen 07/13/2013 RESULT: Spleen: Measures 13.1 x 6.0 x 7.1 cm. Several splenic lesions including a 5.5 x 5.7 x 5.1 cm heterogenous mass in the mid spleen, 1.8 x 1.7 x 1.7 cm cystic lesion, 1.5 x 1.2 x 1.4 cm cystic lesion, and a 1.8 x 2.1 x 1.8 cm echogenic lesion. Left kidney: Measures 7.9 cm. No hydronephrosis renal stones. Normal cortical thickness. Increased echogenicity. Possible areas of cortical scarring. IMPRESSION: Multiple splenic lesions are again seen measuring up to 5.5 x 5.7 x 5.1 cm. Similar to ultrasound dated 03/26/2018 but new from 07/13/2013. These are of unknown etiology, further evaluation with contrast-enhanced CT or MRI is again recommended. Armature Rewinder: JENNIFER Transcribe Date/Time: Mar 30 2018 12:21P Dictated by : PHILLIP MONTALVO MD This examination was interpreted and the report reviewed and electronically signed by: PHILLIP MONTALVO MD on Mar 30 2018 12:27PM EST [id number] Normal [facility] Basic Metabolic Panlon 03-29 Anion gap molar conc 23 mmol/L High 9-18 [facility] Comment on above: Performed By: #### B DEION, MG1, CBCDIF ####[place] [id number] [place], [place] [phone] Calcium mass conc 8.0 mg/dL Low 8.5-10.5 [facility] Comment on above: Performed By: #### B DEION MG1, CBCDIF ####[facility] [place], [place] [phone] Chloride molar conc 94 mmol/L Low 98-110 [facility] Comment on above: Performed By: #### B MP, MG1, CBCDIF ####[facility] [place] [address] [phone] CO2 molar conc 16 mmol/L Low 23-32 [facility] Comment on above: Performed By: #### B MP, MG1, CBCDIF ####[place] [address] Creatinine mass conc 2.63 mg/dL High 0.70-1.40 [facility] Comment on above: Performed By: #### B MP, MG1, CBCDIF ####[place] [id number] eGFR- Amer. 22 Low >60 [facility] Comment on above: Performed By: #### B MP, MG1, CBCDIF ####[place] [address] GFR/1.73 sq M predicted among non-blacks MDRD vol rate/area (S/P/Bld) 18 . Low >60 [facility] Comment on above: Performed By: #### B DEION, MG1, CBCDIF ####[place] [address] Glucose mass conc 122 mg/dL High 65-100 [facility] Comment on above: Performed By: #### B DEION, MG1, CBCDIF ####[place] [address] Potassium molar conc 3.4 mmol/L Low 3.5-5.0 [facility] Comment on above: Performed By: #### B MP, MG1, CBCDIF ####[place] [address] Sodium molar conc 133 mmol/L Normal 132-148 [facility] Comment on above: Performed By: #### B MP, MG1, CBCDIF ####[address] Urea nitrogen mass conc 59 mg/dL High 8-25 [facility] Comment on above: Performed By: #### B MP, MG1, CBCDIF ####[place] [phone] C difficile PCRon 03-29-2018 C difficile PCR Negative Normal [facility] Comment on above: Performed By: #### P TT, NTBNP, HSTNT, CBCDIF, PT, CKCKMB, CMP #### [phone] CBC and Differentialon 03-29 Abs Baso <0.03 Normal <0.11 [facility] Comment on above: Performed By: #### B MP, MG1, CBCDIF ####[place] [id number] Abs [place] 0.81 k/uL Normal <0.87 [facility] Comment on above: Performed By: #### B MP, MG1, CBCDIF ####[place] [phone] Abs Neut 10.08 k/uL High 1.45-7.50 [facility] Comment on above: Performed By: #### B MP, MG1, CBCDIF ####[place] [address] Basophils/100 WBC (Bld) 0.0 % Normal [facility] Comment on above: Performed By: #### B MP, MG1, CBCDIF ####[place] [address] DTYPE Auto Diff Normal [facility] Comment on above: Performed By: #### B MP, MG1, CBCDIF ####[place] [address] Eosinophils #/vol (Bld) 10*3/uL Normal <0.46 [facility] Comment on above: Performed By: #### B MP, MG1, CBCDIF ####[place] [address] Eosinophils/100 WBC (Bld) 0.0 % Normal [facility] Comment on above: Performed By: #### B MP, MG1, CBCDIF ####[place] [phone] Erythrocyte distribution width Ratio (RBC) 13.8 % Normal 11.5-15.0 [facility] Comment on above: Performed By: #### B DEION MG1, CBCDIF ####[place] [phone] Hematocrit Volume Fraction (Bld) 25.3 % Low 36.0-46.0 [facility] Comment on above: Performed By: #### B DEION, MG1, CBCDIF ####[place] [phone] Hemoglobin mass conc (Bld) 8.3 g/dL Low 11.5-15.5 [facility] Comment on above: Performed By: #### B DEION, MG1, CBCDIF ####[place] [phone] Lymphocytes #/vol (Bld) 0.31 10*3/uL Low 1.00-4.00 [facility] Comment on above: Performed By: #### B DEION, MG1, CBCDIF ####[place] [phone] Lymphocytes/100 WBC (Bld) 2.8 % Normal [facility] Comment on above: Performed By: #### B DEION, MG1, CBCDIF ####[place] [phone] MCH Entitic mass (RBC) 28.5 pG Normal 26.0-34.0 [facility] Comment on above: Performed By: #### B DEION, MG1, CBCDIF ####[place] [phone] MCHC mass conc (RBC) 32.8 g/dL Normal 30.5-36.0 [facility] Comment on above: Performed By: #### B DEION, MG1, CBCDIF ####[place] [phone] MCV Entitic volume (RBC) 86.9 fL Normal 80.0-100.0 [facility] Comment on above: Performed By: #### B MP, MG1, CBCDIF ####[place] [phone] Monocytes/100 WBC (Bld) 7.2 % Normal [facility] Comment on above: Performed By: #### B MP, MG1, CBCDIF ####[place] [phone] Neutrophils/100 WBC (Bld) 90.0 % Normal [facility] Comment on above: Performed By: #### B MP, MG1, CBCDIF ####[place] [phone] Platelet mean volume Entitic volume (Bld) 11.2 fL Normal 9.0-12.7 [facility] Comment on above: Performed By: #### B MP, MG1, CBCDIF ####[place] [phone] Platelets #/vol (Bld) 132 10*3/uL Low 150-400 [facility] Comment on above: Performed By: #### B MP, MG1, CBCDIF ####[place] [phone] RBC #/vol (Bld) 2.91 10*6/uL Low 3.90-5.20 [facility] Comment on above: Performed By: #### B MP, MG1, CBCDIF ####[place] [phone] WBC #/vol (Bld) 11.20 10*3/uL High 3.70-11.00 [facility] Comment on above: Performed By: #### B MP, MG1, CBCDIF ####[place] [phone] CKon 03-29-2018 CK enzyme act/vol 432 U/L High 30-220 [facility] Comment on above: Performed By: #### C K ####[place] [phone] CONSULT PROGon 03-29-2018 Protein mass conc HNO ID: [id number] Author: Juanito Carlisle Service: Cardiovascular Medicine Author Type: Physician Type: Consult Progress Note Filed: 03/29/2018 4:15 PM Note Text: PROGRESS NOTE CARDIOLOGY SERVICE SERVICE DATE: 03/29/2018 SERVICE TIME: 3:59 PM Subjective INTERIM HISTORY: CAD with CABG and AVR in 2005, presented with sudden chest pressure 5 days ago, diagnosed with NSTEMI (acute coronary syndrome) with unstable angina, had cath with PCI of SVG to RCA on 03/27/2018, had IVF and developed acute pulmonary edema, developed contrast induced nephropathy, had BPs with low diastolic readings, likely reducing renal perfusion as well. She still feels weak and gets dizzy when stands up. She has not had any chest pain after the cath/PCI. No dyspnea today. CARDIAC STATUS: Chest Pain: Improved Dyspnea: Improved Functional Capacity: Improved Objective PHYSICAL EXAM: Body mass index is 27.69 kg/m?. O2 Therapy: Nasal Cannula No Data Recorded Patient Vitals for the past 24 hrs: BP Temp Temp src Pulse Resp SpO2 Weight 03/29/18 1527 - - - 72 26 93 % - 03/29/18 1523 - - - 72 22 94 % - 03/29/18 1400 94/60 - - 65 21 91 % - 03/29/18 1300 (!) 110/38 - - 61 20 93 % - 03/29/18 1200 118/97 36.8 ?C (98.2 ?F) Oral 60 19 93 % - 03/29/18 1100 (!) 114/24 - - 62 25 94 % - 03/29/18 1000 (!) 112/22 - - 73 20 92 % - 03/29/18 0900 (!) 129/24 - - 69 20 93 % - 03/29/18 0800 (!) 133/30 36.8 ?C (98.2 ?F) Oral 74 21 94 % - 03/29/18 0700 (!) 136/33 - - 74 23 95 % - 03/29/18 0600 (!) 144/29 - - 71 20 99 % - 03/29/18 0500 (!) 146/32 - - 66 24 99 % 80.2 kg (176 lb 12.9 oz) 01/30/19 0400 - 37 ?C (98.6 ?F) - 66 23 98 % - 03/29/18 0300 (!) 131/38 - - 67 21 100 % - 03/29/18 0200 (!) 125/48 - - 68 22 99 % - 03/29/18 0100 (!) 137/47 - - 67 22 99 % - 03/29/18 0000 (!) 131/42 36.9 ?C (98.4 ?F) - 68 21 100 % - 03/28/18 2331 - - - 64 24 99 % - 03/28/18 2300 (!) 126/38 - - 65 21 96 % - 03/28/18 2200 (!) 127/38 - - 65 21 95 % - 03/28/18 2100 (!) 126/34 - - 67 22 95 % - 03/28/18 2000 106/88 37.1 ?C (98.8 ?F) - 68 24 95 % - 03/28/18 1925 - - - 77 21 95 % - 03/28/18 1915 - - - 76 19 95 % - 03/28/18 1900 127/95 - - 65 22 94 % - 03/28/18 1800 (!) 130/31 - - 63 22 95 % - 03/28/18 1700 (!) 113/38 - - 63 23 94 % - 03/28/18 1600 (!) 104/37 36.8 ?C (98.2 ?F) - 72 22 94 % - Pleasant, comfortable, not in acute distress. Awake, alert, oriented times 3. Moves all extremities. SKIN: No rash or lumps. HEENT: Normocephalic, face symmetrical. NECK: Supple, no JVD, no carotid bruit, no thyromegaly. LUNGS: Clear to auscultation bilaterally. CARDIAC: PMI present, RRR, S1 and S2, no S3 or S4, no additional heart sounds or murmurs. ABDOMEN: Soft, nontender, bowel sounds present. EXTREMITIES: No edema. PULSES: Peripheral pulses present. MEDICATIONS: Current hospital medications: ipratropium-albuterol 3 mL nebulizer solution (DUONEB) 3 mL INHALATION q 4 H while awake NIFEdipine XL 30 mg tab(s) (ADALAT CC) 30 mg ORAL BID atorvastatin 80 mg tab(s) (LIPITOR) 80 mg ORAL AT BEDTIME nitroglycerin sublingual 0.4 mg tab(s) (NITROQUICK) 0.4 mg SUBLINGUAL PRN prochlorperazine 5 mg injection (COMPAZINE) 5 mg INTRAVENOUS q 6 H PRN carvedilol 12.5 mg tab(s) (COREG) 12.5 mg ORAL BID w MEALS hydrALAZINE 25 mg tab(s) (APRESOLINE) 25 mg ORAL q 8 H acetaminophen 650 mg tab(s) (TYLENOL) 650 mg ORAL q 4 H PRN insulin lispro injection (rapid acting) (HumaLOG) SUBCUTANEOUS w MEALS AND HS aspirin 81 mg chewable tab(s) 81 mg ORAL DAILY sertraline 150 mg tab(s) (ZOLOFT) 150 mg ORAL DAILY clopidogrel 75 mg tab(s) (PLAVIX) 75 mg ORAL DAILY buPROPion XL 150 mg tab(s) (WELLBUTRIN XL) 150 mg ORAL DAILY NaCl 0.9% 3-5 mL 3-5 mL INTRAVENOUS q 12 H ondansetron 4 mg tab(s) (ZOFRAN) 4 mg ORAL q 6 H PRN ondansetron (PF) 4 mg injection (ZOFRAN) 4 mg INTRAVENOUS q 6 H PRN polyethylene glycol 3350 17 g packet (MIRALAX, GLYCOLAX) 17 g ORAL DAILY PRN bisacodyl 10 mg suppository (DULCOLAX) 10 mg RECTAL DAILY PRN melatonin 1 mg tab(s) 1 mg ORAL HS PRN dextrose 40 % 15 g 15 g ORAL PRN glucagon 1 mg injection (GLUCAGEN) 1 mg INTRAMUSCULAR PRN dextrose 50% in water 25 mL syringe 12.5 g INTRAVENOUS PRN pantoprazole DR 20 mg tab(s) (PROTONIX) 20 mg ORAL DAILY (6 AM) DATA: Diagnostic tests reviewed for today's visit: Most recent labs and imaging results. Past 72 Hour Labs: Recent Labs 03/29/18 0437 03/27/18 0428 CK 432* -- 1,014* CKMB -- -- 115.9* TROPT -- -- 2.160* WBC 11.20* -- 10.97 RBC 2.91* -- 3.25* HB 8.3* -- 9.3* HCT 25.3* -- 29.2* MCV 86.9 -- 89.8 MCH 28.5 -- 28.6 MCHC 32.8 -- 31.8 RDWCV 13.8 -- 13.8 PLT 132* -- 141* MPV 11.2 -- 10.4 NEUTP 90.0 -- 87.5 LYMPHP 2.8 -- 6.3 MONOP 7.2 -- 5.5 EODINP 0.0 -- 0.5 BASOP 0.0 -- 0.2 ABSNEUT 10.08* -- 9.61* ABSMONO 0.81 -- 0.60 ABSEOSIN <0.03 -- 0.05 ABSBASO <0.03 -- <0.03 GLUC 122* < > 127* BUN 59* < > 37* CREAT 2.63* < > 1.79* NA 133 < > 136 K 3.4* < > 5.6* CHLOR 94* < > 104 CO2 16* < > 15* CA 8.0* < > 8.6 MG 1.6* < > 2.0 < > = values in this interval not displayed. Last Lab Drawn: TSH 3.060 06/02/2015 ProBNP 33,668 03/27/2018 Triglyceride 301 03/26/2018 HDL Cholesterol 33 03/26/2018 LDL Cholesterol 221 03/26/2018 Cholesterol, Total 314 03/26/2018 Assessment/Plan Principal Problem: NSTEMI (non-ST elevated myocardial infarction) (HCC) POA: Yes Assessment AND Plan: no more chest pain after cath/PCI. Continue meds. Active Problems: Essential hypertension, benign POA: Yes Assessment AND Plan: BP are low (mean and diastolic numbers). Stop hydralazine and nifedipine. Would use only lower dose of amlodipine upon discharge if BPs bounce back and are too high. Chest pain POA: Yes Assessment AND Plan: resolved with PCI. Coronary atherosclerosis POA: Yes Assessment AND Plan: presented with unstable angina/NSTEMI, had PCI of SVG to RCA, has occluded RCA, LAD and CX, AL-LAD assumed to be open(not imaged because of dye load) Tobacco abuse POA: Yes Assessment AND Plan: current smoker, encouraged to quit smoking. Contrast dye induced nephropathy POA: No Assessment AND Plan: creatinine up to 2.6. Follow creatinine, avoid hypotension, stop hydralazine and nifedipine. Acute renal failure superimposed on stage 3 chronic kidney disease (HCC) POA: No Assessment AND Plan: creatinine still rising as of this morning, nephrology following. Resolved Problems: * No resolved hospital problems. * Medication and Non-Pharmacologic VTE Prophylaxis/Anticoagu lants Anticoagulant AND Antiplatelet Medications Start Dose Route Frequency Ordered Stop 03/25/18 0900 aspirin 81 mg chewable tab(s) 81 mg ORAL DAILY 03/24/182035 -- 03/24/18 2100 clopidogrel 75 mg tab(s) (PLAVIX) 75 mg ORAL DAILY 03/24/182035 -- @LP PLINK([id number])@ VTE Prophylaxis: Needs to be revised SIGNATURE: Juanito Carlisle MD PATIENT NAME: Sarina Lovett DATE: March 29, 2018 TIME: 3:59 PM PAGER/CONTACT #: [facility] Protein mass conc HNO ID: [id number] Author: Marito Real Service: Nephrology Author Type: Physician Type: Consult Progress Note Filed: 03/29/2018 2:45 PM Note Text: CONSULT PROGRESS NOTE SERVICE DATE: 03/29/2018 SERVICE TIME: 10.30 CONSULTING SERVICE: NEPHROLOGY Subjective / INTERVAL HPI Patient reports 90% improvement in SOB Received 2 bolus of NS 250 ml for low BP Creatinine trending up Current hospital medications: ipratropium-albuterol 3 mL nebulizer solution (DUONEB) 3 mL INHALATION q 4 H while awake NIFEdipine XL 30 mg tab(s) (ADALAT CC) 30 mg ORAL BID atorvastatin 80 mg tab(s) (LIPITOR) 80 mg ORAL AT BEDTIME nitroglycerin sublingual 0.4 mg tab(s) (NITROQUICK) 0.4 mg SUBLINGUAL PRN prochlorperazine 5 mg injection (COMPAZINE) 5 mg INTRAVENOUS q 6 H PRN carvedilol 12.5 mg tab(s) (COREG) 12.5 mg ORAL BID w MEALS hydrALAZINE 25 mg tab(s) (APRESOLINE) 25 mg ORAL q 8 H acetaminophen 650 mg tab(s) (TYLENOL) 650 mg ORAL q 4 H PRN insulin lispro injection (rapid acting) (HumaLOG) SUBCUTANEOUS w MEALS AND HS aspirin 81 mg chewable tab(s) 81 mg ORAL DAILY sertraline 150 mg tab(s) (ZOLOFT) 150 mg ORAL DAILY clopidogrel 75 mg tab(s) (PLAVIX) 75 mg ORAL DAILY buPROPion XL 150 mg tab(s) (WELLBUTRIN XL) 150 mg ORAL DAILY NaCl 0.9% 3-5 mL 3-5 mL INTRAVENOUS q 12 H ondansetron 4 mg tab(s) (ZOFRAN) 4 mg ORAL q 6 H PRN ondansetron (PF) 4 mg injection (ZOFRAN) 4 mg INTRAVENOUS q 6 H PRN polyethylene glycol 3350 17 g packet (MIRALAX, GLYCOLAX) 17 g ORAL DAILY PRN bisacodyl 10 mg suppository (DULCOLAX) 10 mg RECTAL DAILY PRN melatonin 1 mg tab(s) 1 mg ORAL HS PRN dextrose 40 % 15 g 15 g ORAL PRN glucagon 1 mg injection (GLUCAGEN) 1 mg INTRAMUSCULAR PRN dextrose 50% in water 25 mL syringe 12.5 g INTRAVENOUS PRN pantoprazole DR 20 mg tab(s) (PROTONIX) 20 mg ORAL DAILY (6 AM) Objective PHYSICAL EXAM: Physical Exam Performed: GENERAL: Alert, no distress, cooperative NECK: No jugulovenous distention LUNGS: Basal crepitations CARDIAC: Normal S1 and S2; no rubs, murmurs, or gallops BREASTS: Exam deferred EXTREMITIES: No ulcers, No edema BP 129/24 Pulse 69 Temp (Src) 98.2 (Oral) Resp 20 Ht 5' 7.008 (1.70m) Wt 176 lb 12.9 oz (80.2kg) SpO2 93% BMI 27.69 kg/(m2). DATA: Diagnostic tests reviewed for today's visit: Most recent labs and imaging results. Impression/Recommenda tions Sarina Lovett is a 73 year old female?with PMH of CAD (CABG in 2005, PCI to RCA in 2000 and 2015), aortic stenosis (s/p replacement in 2005 [address] #[address] [employer] Bioprosthetic valve), HTN, HLD, DM2 admitted for NSTEMI ? S/p cath 03/26 with 2 DAVID placed in SVG to RCA, later developed JULIETA treated with IVF. Patient developed acute respiratory failure 03/27 required discontinuing IVF, IV lasix, and intermittent CPAP ? SOB significantly improved on 2L NC Urine output over 24 hrs around 2.6 L. Received 500 ml IVF for Low BP Creatinine trending up ? 1- JULIETA on CKD 3 Possible contrast induced nephropathy Renal US reviewed Avoid nephrotoxic medications Daily labs Lasix as needed for fluid overload/worsening SOB. Limit IVF ? 2- HTN On hydralazine Hold LOS ? 3- hyperkalemia Resolved ? 4- Anion gap acidosis Negative Lactate. Improving. Continue to monitor ? 5-Elevated CK Check with morning labs tomorrow SIGNATURE: Germain De Los Santos MD PATIENT NAME: Sarina Lovett DATE: March 29, 2018 TIME: 10:23 AM PAGER: [phone] Addendum Pt seen and examined. Agree with Dr De Los Santos's note. Her renal function continues to worsen from her contrast nephropathy. Continue to use Lasix as needed only for fluid overload. She does not need IVF for oliguria. Dr Real Normal [facility] Magnesiumon 03-29-2018 Magnesium mass conc 1.6 mg/dL Low 1.7-2.6 [facility] Comment on above: Performed By: #### B MP, MG1, CBCDIF ####[facility] [place], [place] [phone] NURSING PROGon 03-29-2018 Protein mass conc HNO ID: [id number] Author: Augie (Rn) DEBBIE Villafuerte Service: (none) Author Type: Registered Nurse Type: Nursing Progress Note Filed: 03/30/2018 2:22 AM Note Text: Nursing Progress Note Patient Name: Sarina Lovett Patient Location: [place] [address]/[place] [address]* Daily Note: 1944 The patient assisted to the bedside commode liquid stools noted, the patient notified that she has a statin ordered and is allergic she refused the medication. 2014 The patient c/o upper abd pain the Hospitalist aware pain medication ordered. 0000 The patient sleeping vs stable assessment unchanged at this time. 0200 The patient awake unable to sleep no c/o pain at this time. 0220 report called to 2C-33 This note was completed by: Augie Villafuerte RN [facility] Protein mass conc HNO ID: [id number] Author: Delma CabreraRn) DEBBIE Garsia Service: Critical Care Author Type: Registered Nurse Type: Nursing Progress Note Filed: 03/29/2018 6:28 PM Note Text: 0730Care assumed.Denies complaints. 1000C/o intermittent abd cramping.Reported to .No orders at this time.Pt declining oral care as well as getting up to chair.Educated that ambulation 3 times a day is optimal for healing/recovering and preventing increased weakness as ever day in bed we lose strength.Continues to deny cp/sob/nausea /dizziness. 1355C/o lightheadedness after loose bowel movement. that resolved without intervention.Reported to . 180Discussed above loose stool/intermittent abd cramping with .Order to obtain and sent specimen for c-diff.. [facility] Protein mass conc HNO ID: [id number] Author: Constantine CabreraRn) DEBBIE Potter Service: (none) Author Type: Registered Nurse Type: Nursing Progress Note Filed: 03/29/2018 2:58 AM Note Text: Nursing Progress Note Patient Name: Sarina Lovett Patient Location: [place] [address]/[place] [address]* Daily Note: 191: Received report from DEBBIE Nguyễn. 1999: Assessment complete, see flow sheet. VSS. 213: Nicardine held per MAR parameters. 0000: Reassessment complete, see flow sheet. VSS. 0230: Dr. Ferrari notified of pt's decreased UO. Order placed for 250 NS Bolus. Given per APR. This note was completed by: Constantine Potter RN [facility] PROGRESSon 03-29-2018 Protein mass conc HNO ID: [id number] Author: Kinsey Dumas MD Service: Hospital Medicine Author Type: Resident Type: Progress Notes Filed: 03/29/2018 11:51 AM Note Text: Attestation signed by Mame Bowers at 03/29/2018 1:50 PM I saw and evaluated the patient. Discussed with the resident and agree with resident's findings and plan as documented in the resident's note. ? NonSTEMI s/p 2 DAVID to SVG to RCA - on ASA, plavix, - allergic to statins and holding LOS due to JULIETA ? Acute hypoxic respiratory failure: improved Likely related to pulmonary edema with CHF Likely Acute on chronic diastolic CHF exacerbation Hx of smoking and COPD - monitor closely and give lasix carefully- assess lasix need on daily basis - ECHO with preserved EF and stage I diastolic CHF - clinically improved but still has few BL crackles- monitor ? Probable contrast induced nephropathy JULIETA on CKD 3 - limit IVF - lasix as needed for fluid overload - monitor closely - appreciate nephrology input - strict I AND Os - appreciate nephrology input ? Rest of the details as per below note. Pt to be transferred to telemetry bed PK 2/CPPU. Sign out given to floor physician. ? Mame Bowers MD Staff, Hospital Medicine March 29, 2018 ? HOSPITAL MEDICINE [facility] PROGRESS NOTE NAME: Sarina Lovett SERVICE DATE: 03/29/2018 SERVICE TIME: 9:37 AM ASSESSMENT AND PLAN Sarina Lovett is a 73 year old female with PMH of CAD (CABG in 2006, PCI to RCA in 2000 and 2015), aortic stenosis (s/p replacement in [address] #[address] [employer] Bioprosthetic valve), HTN, HLD, DM?who presented with chest pain and elevated troponin, concerning for NSTEMI. ? NSTEMI (non-ST elevated myocardial infarction) (HCC) POA: Yes Chest pain POA: Yes Coronary atherosclerosis POA: Yes Patient with significant CAD history presenting with chest pain and elevated troponin 0.025 ->?0.032 ->?0.038. EKG without significant changes from prior, dose have LVH and RBBB. Cath on 03/26 with 2 DAVID placed in SVG to RCA. Post-cath patient had further chest pain, restarted on nitro drip which was discontinued on 03/27. - continue aspirin, plavix, coreg; pt allergic to statins, holding LOS as below - nifedipine 30mg BID - cardiology consulted, appreciate input ? Acute hypoxic respiratory failure Chronic COPD Combined CHF, likely acute on chronic Patient with increasing SOB on 03/27 in PM, thought to be due to pulmonary edema with superimposed COPD, though patient not hypercapnic. Given 200mg IV lasix on 03/27 in PM, and 120mg IV on 03/28 in AM, subsequently diuresed 2L. Started on augmentin 500mg BID on 03/27/2018 (QTc 529, no azithromycin) and steroids for concern regarding COPD exacerbation, as patient has 50 pack year smoking history. Was not on COPD medications at home, and presentation appears more consistent with CHF exacerbation than COPD exacerbation. Last EF in 2015 48%, repeat echo stable with EF 50% with worsening proBNP. - would assess need for lasix daily, will not dose today - hold off on abx and steroids - CPAP at night, weaned to NC during the day - supplemental O2 PRN to keep SpO2 > 92% - duonebs q4h while awake ? Hypertensive emergency POA: Yes Essential hypertension, benign POA: Yes Patient presented with SBP>200 with chest pain and possible JULIETA. On coreg 12.5mg BID, lisinopril 20mg daily at home. Improved?while on nitro, given 5mg IV hydralazine. - coreg 12.5mg BID - hydralazine 25mg TID - nifedipine 30mg BID - consider resuming ACEi in the future based on kidney function ? JULIETA on CKD3 Baseline Cr unclear, but definite underlying CKD as GFR has been <60 for past years. Possible JULIETA, will continue to monitor. Cr on admission 1.5, increased on 03/27 to 1.79. Did receive IV lasix on 03/27 as well as IVF. Minimal proteinuria. Renal US suggestive of medical renal disease, also with splenic masses. Patient received a total of 320mg of IV lasix on 03/27-03/28 but then required 500cc IVF on 03/29 AM due to decreased UOP. Cr continues to climb, likely combination of contrast nephropathy with lasix dosing. - monitor BMP - avoid nephrotoxic agents - no need for fluids for low UOP per nephro - nephrology following, appreciate input Lesion of spleen Seen on renal ultrasound, has been seen in the past on CT in 2013 measuring 2.3x3.5cm. On US in 2013, the lesion was not seen. Will repeat ultrasound here. - US spleen - consider CT scan once kidney function improves ? Tobacco abuse POA: Yes 50 pack-year history, encourage cessation. ? Psychiatric disorder POA: Yes Patient with history of depression, significant social stressors. - continue zoloft 150mg daily, wellbutrin 150mg daily - behavioral health consulted, appreciate input ? T2DM ? On glimepiride 1mg BID at home, last A1c 9.3% in 08/2016 at [facility]. Repeat A1c on admission 6.0%. - SSI1 - holding home glimepiride due to JULIETA ? Hyperkalemia Hypokalemia 5.6 on 03/27, holding ACEi in setting of JULIETA and did receive lasix 60mg IV on 03/27. S/p kayexalate 30mg once on 03/27 with improvement in potassium. Then potassium of 3.4 on 03/29/2018, given 40mEq of Kdur. - monitor BMP ? Hypomagnesemia 1.7 on admission. Continue to monitor. - replete PRN ? Anemia Chronic anemia, baseline Hgb 9-11 range. Ferritin normal, likely anemia of chronic disease. ? VTE Prophylaxis - DAPT with plavix and aspirin; IPCs Dispo - possible transfer to tele floor later today SUBJECTIVE INTERVAL HPI: Ms. Lovett feels well today. She does not have chest pain or palpitations, and her breathing continues to improve though it is not at baseline. MEDICATIONS: Reviewed OBJECTIVE VITAL SIGNS (last 24hrs min/max): Temp Av ?C (98.6 ?F) Min: 36.8 ?C (98.2 ?F) Max: 37.2 ?C (99 ?F) Pulse Av Min: 63 Max: 83 Cuff BP Min: 104/37 Max: 150/39 Pain Score: 0/10 PHYSICAL EXAM: General: Alert, no distress, cooperative Lungs: bibasilar crackles R>L, no wheezing Cardiac: NL S1 and S2, + systolic murmur Abdomen: Non-tender, BS normal Extremities: No edema or skin discoloration Neuro: Grossly normal cognition, motor function DATA: Diagnostic tests reviewed for today's visit: Most recent labs Most recent image Kinsey Dumas MD Family Medicine PGY2 March 29, 2018 [facility] ALLIED HEALTHon 03-28-2018 ALLIED HEALTH HNO ID: [id number] Author: Amanda Retana (Rt) Service: Radiology Author Type: Commercial Management Accountant Type: Allied Health Filed: 03/28/2018 10:25 AM Note Text: Radiology Service Progress Note PATIENT NAME: Sarina Lovett DATE OF SERVICE: March 28, 2018 TIME: 10:24 AM PATIENT IDENTITY VERIFICATION COMPLETED USING TWO (2) METHODS: Patient confirmed name verbally and ID band matches.. PATIENT GENDER DATA: Female. status: : No status: NO. PATIENT RELEVANT IMPLANT DATA REVIEWED: Not Applicable RADIOLOGY DEPARTMENT: General X-ray: Exam(s) Completed: Chest X-Ray PERIPHERAL IV DATA: Not applicable SIGNED BY: RT Lainey March 28, 2018 10:24 AM [facility] Basic Metabolic Panlon 03-28 Anion gap molar conc 25 mmol/L High 9-18 [facility] Comment on above: Performed By: #### B DEION MG1 ####[facility] [place], [place] [phone] Calcium mass conc 8.4 mg/dL Low 8.5-10.5 [facility] Comment on above: Performed By: #### B DEION, MG1 ####[facility] [place], [place] [phone] Chloride molar conc 96 mmol/L Low 98-110 [facility] Comment on above: Result Comment: Revi ewed Performed By: #### B MP, MG1 ####[place] [phone] CO2 molar conc 14 mmol/L Low 23-32 [facility] Comment on above: Performed By: #### B MP, MG1 ####[place] [phone] Creatinine mass conc 2.05 mg/dL High 0.70-1.40 [facility] Comment on above: Performed By: #### B DEION, MG1 ####[place] [phone] eGFR- Amer. 29 Low >60 [facility] Comment on above: Performed By: #### B DEION, MG1 ####[place] [phone] GFR/1.73 sq M predicted among non-blacks MDRD vol rate/area (S/P/Bld) 24 . Low >60 [facility] Comment on above: Performed By: #### B DEION, MG1 ####[place] [phone] Glucose mass conc 146 mg/dL High 65-100 [facility] Comment on above: Performed By: #### B DEION, MG1 ####[place] [phone] Potassium molar conc 4.1 mmol/L Normal 3.5-5.0 [facility] Comment on above: Performed By: #### B MP, MG1 ####[place] [phone] Sodium molar conc 135 mmol/L Normal 132-148 [facility] Comment on above: Performed By: #### B MP, MG1 ####[place] [phone] Urea nitrogen mass conc 41 mg/dL High 8-25 [facility] Comment on above: Performed By: #### B MP, MG1 ####[facility] [place], [place] [phone] CONSULT PROGokeny 03-28-2018 Protein mass conc HNO ID: [id number] Author: Deanna Yoo Service: Cardiovascular Medicine Author Type: Nurse Practitioner Type: Consult Progress Note Filed: 03/28/2018 1:49 PM Note Text: PROGRESS NOTE CARDIOLOGY SERVICE SERVICE DATE: 03/28/2018 SERVICE TIME: 1:42 PM Subjective INTERIM HISTORY: feeling better today. Was very short of breath last night. Pulmonary edema likely related to IVF and Kexelate. Diuresed well. No shortness of breath today. Creatinine up slightly today. May need another day to monitor this. CARDIAC STATUS: Chest Pain: Improved Dyspnea: Improved Objective PHYSICAL EXAM: Body mass index is 27.17 kg/m?. O2 Therapy: Nasal Cannula No Data Recorded Patient Vitals for the past 24 hrs: BP Temp Temp src Pulse Resp SpO2 Weight 03/28/18 1200 (!) 122/41 37.2 ?C (99 ?F) Oral 83 27 93 % - 03/28/18 1112 - - - 66 24 94 % - 03/28/18 1105 - - - 65 22 94 % - 03/28/18 1100 (!) 125/28 - - 66 21 93 % - 03/28/18 1000 (!) 104/39 - - 64 21 90 % - 03/28/18 0900 (!) 150/39 - - 79 14 93 % - 03/28/18 0800 (!) 145/41 37 ?C (98.6 ?F) Oral 74 22 95 % - 03/28/18 0720 - - - 87 18 96 % - 03/28/18 0712 - - - 73 21 95 % - 03/28/18 0700 (!) 157/38 - - 73 19 95 % - 03/28/18 0600 (!) 144/48 - - 77 24 95 % - 03/28/18 0500 (!) 167/41 - - 72 19 100 % 78.7 kg (173 lb 8 oz) 03/28/18 0417 - - - 71 19 100 % - 03/28/18 0400 (!) 166/41 - - 72 23 100 % - 03/28/18 0344 - 36.8 ?C (98.2 ?F) - - - - - 03/28/18 0300 (!) 151/40 - - 72 20 100 % - 03/28/18 0200 (!) 152/39 - - 71 18 100 % - 03/28/18 0116 - - - 71 21 100 % - 03/28/18 0100 (!) 152/39 - - 72 21 100 % - 03/28/18 0000 (!) 153/41 37 ?C (98.6 ?F) - 73 21 100 % - 03/27/18 2300 (!) 152/38 - - 72 22 99 % - 03/27/18 2230 (!) 149/42 - - 72 22 99 % - 03/27/180 - - - 76 27 99 % - 03/27/180 130/82 - - 75 28 - - 03/27/182114 - - - - 25 98 % - 03/27/182112 - - - 70 24 95 % - 03/27/182106 - - - 71 (!) 32 93 % - 03/27/18 2100 (!) 157/39 - - 73 30 95 % - 03/27/18 2030 - - - 73 30 93 % - 03/27/181999 - 37.5 ?C (99.5 ?F) Oral 64 30 94 % - 03/27/18 1930 (!) 137/31 - - 61 26 95 % - 03/27/18 1900 (!) 140/32 - - 60 28 95 % - 03/27/18 1800 (!) 146/49 - - 62 27 93 % - 03/27/18 1747 - - - 62 (!) 31 94 % - 03/27/18 1735 - - - 69 26 95 % - 03/27/18 1710 - - - 74 (!) 34 94 % - 03/27/18 1700 112/63 - - 70 29 95 % - 03/27/18 1600 (!) 143/37 36.5 ?C (97.7 ?F) Oral 65 27 93 % - 03/27/18 1500 (!) 149/31 - - (!) 58 20 96 % - 03/27/18 1400 (!) 111/38 - - (!) 57 23 96 % - Pleasant, comfortable, not in acute distress. Awake, alert, oriented times 3. Moves all extremities. HEENT: Normocephalic, face symmetrical. NECK: Supple, no JVD. LUNGS: no wheeze or rales CARDIAC: 3/6 systolic murmur ABDOMEN: Soft, nontender, bowel sounds present. EXTREMITIES: No edema. PULSES: Peripheral pulses present. MEDICATIONS: Current hospital medications: ipratropium-albuterol 3 mL nebulizer solution (DUONEB) 3 mL INHALATION q 4 H while awake NIFEdipine XL 30 mg tab(s) (ADALAT CC) 30 mg ORAL BID atorvastatin 80 mg tab(s) (LIPITOR) 80 mg ORAL AT BEDTIME nitroglycerin sublingual 0.4 mg tab(s) (NITROQUICK) 0.4 mg SUBLINGUAL PRN prochlorperazine 5 mg injection (COMPAZINE) 5 mg INTRAVENOUS q 6 H PRN carvedilol 12.5 mg tab(s) (COREG) 12.5 mg ORAL BID w MEALS hydrALAZINE 25 mg tab(s) (APRESOLINE) 25 mg ORAL q 8 H acetaminophen 650 mg tab(s) (TYLENOL) 650 mg ORAL q 4 H PRN insulin lispro injection (rapid acting) (HumaLOG) SUBCUTANEOUS w MEALS AND HS aspirin 81 mg chewable tab(s) 81 mg ORAL DAILY sertraline 150 mg tab(s) (ZOLOFT) 150 mg ORAL DAILY clopidogrel 75 mg tab(s) (PLAVIX) 75 mg ORAL DAILY buPROPion XL 150 mg tab(s) (WELLBUTRIN XL) 150 mg ORAL DAILY NaCl 0.9% 3-5 mL 3-5 mL INTRAVENOUS q 12 H ondansetron 4 mg tab(s) (ZOFRAN) 4 mg ORAL q 6 H PRN ondansetron (PF) 4 mg injection (ZOFRAN) 4 mg INTRAVENOUS q 6 H PRN polyethylene glycol 3350 17 g packet (MIRALAX, GLYCOLAX) 17 g ORAL DAILY PRN bisacodyl 10 mg suppository (DULCOLAX) 10 mg RECTAL DAILY PRN melatonin 1 mg tab(s) 1 mg ORAL HS PRN dextrose 40 % 15 g 15 g ORAL PRN glucagon 1 mg injection (GLUCAGEN) 1 mg INTRAMUSCULAR PRN dextrose 50% in water 25 mL syringe 12.5 g INTRAVENOUS PRN perflutren lipid microspheres 1.1 mg/mL 1.3 mL injection (DEFINITY) 1.3 mL INTRAVENOUS DIRECTED PRN pantoprazole DR 20 mg tab(s) (PROTONIX) 20 mg ORAL DAILY (6 AM) DATA: Diagnostic tests reviewed for today's visit: Most recent labs and imaging results. Echo pending Past 72 Hour Labs: Recent Labs 03/28/18 0336 03/27/18 0428 03/26/18 0400 CK -- -- 1,014* -- -- CKMB -- -- 115.9* -- -- TROPT -- -- 2.160* -- -- WBC -- -- 10.97 -- 4.28 RBC -- -- 3.25* -- 3.22* HB -- -- 9.3* -- 9.3* HCT -- -- 29.2* -- 28.1* MCV -- -- 89.8 -- 87.3 MCH -- -- 28.6 -- 28.9 MCHC -- -- 31.8 -- 33.1 RDWCV -- -- 13.8 -- 13.5 PLT -- -- 141* -- 145* MPV -- -- 10.4 -- 10.1 NEUTP -- -- 87.5 -- -- LYMPHP -- -- 6.3 -- -- MONOP -- -- 5.5 -- -- EODINP -- -- 0.5 -- -- BASOP -- -- 0.2 -- -- ABSNEUT -- -- 9.61* -- -- ABSMONO -- -- 0.60 -- -- ABSEOSIN -- -- 0.05 -- -- ABSBASO -- -- <0.03 -- -- GLUC 146* -- 127* -- 113* BUN 41* -- 37* -- 32* CREAT 2.05* -- 1.79* -- 1.63* NA 135 -- 136 -- 135 K 4.1 < > 5.6* -- 4.6 CHLOR 96* -- 104 -- 104 CO2 14* -- 15* -- 19* CA 8.4* -- 8.6 -- 9.0 APTT -- -- -- -- 53.5* MG 1.7 -- 2.0 < > -- < > = values in this interval not displayed. Last Lab Drawn: TSH 3.060 06/02/2015 ProBNP 33,668 03/27/2018 Triglyceride 301 03/26/2018 HDL Cholesterol 33 03/26/2018 LDL Cholesterol 221 03/26/2018 Cholesterol, Total 314 03/26/2018 Assessment/Plan Principal Problem: NSTEMI (non-ST elevated myocardial infarction) (HCC) POA: Yes Assessment AND Plan: no further chest pain S/p DESx2 to SVG-RCA She will need to be on lipitor 80mg, plavix, coreg 12.5mg bid, adalat bid She will follow up with her control area operator at [facility] after discharge Active Problems: Essential hypertension, benign POA: Yes Assessment AND Plan: stable Chest pain POA: Yes Assessment AND Plan: resolved Tobacco abuse POA: Yes Assessment AND Plan: needs smoking cessation Hypertensive emergency POA: Yes Assessment AND Plan: stable Resolved Problems: * No resolved hospital problems. * Medication and Non-Pharmacologic VTE Prophylaxis/Anticoagu lants Anticoagulant AND Antiplatelet Medications Start Dose Route Frequency Ordered Stop 03/25/18 0900 aspirin 81 mg chewable tab(s) 81 mg ORAL DAILY 03/24/182035 -- 03/24/18 2100 clopidogrel 75 mg tab(s) (PLAVIX) 75 mg ORAL DAILY 03/24/182035 -- @RADHA ARGUETA([id number])@ VTE Prophylaxis: VTE prophylaxis appropriate SIGNATURE: Deanna oYo APRN.CNP PATIENT NAME: Sarina Lovett DATE: March 28, 2018 TIME: 1:42 PM PAGER/CONTACT #: [facility] Protein mass conc HNO ID: [id number] Author: Marito Real Service: Nephrology Author Type: Physician Type: Consult Progress Note Filed: 03/28/2018 4:10 PM Note Text: PROGRESS NOTE - INTERNAL MEDICINE SERVICE DATE: 03/28/2018 ADMITTING PHYSICIAN: Larisa Dougherty Interval History Treated with IV lasix for fluid overload/respiratory failure yesterday SOB improved Creatinine trending up OBJECTIVE BP (!) 104/39 Pulse 65 Temp 37 ?C (98.6 ?F) (Oral) Resp 22 Ht 170.2 cm (5' 7.01 ) Wt 78.7 kg (173 lb 8 oz) SpO2 94% BMI 27.17 kg/m? PHYSICAL EXAM: General: Alert, no Distress, cooperative Neck no jugulovenous distention, Lungs: Basal crepitations. Decrease air entry over RLL Cardiac: no rubs, murmurs, or gallops Abdomen: Abdomen soft, non-tender Extremities : No deformities, edema, or tenderness . Skin: No discoloration or ulcers. No edema Neuro : Alert, oriented X 3. Diagnostic tests reviewed for today's visit: Most recent labs and imaging were reviewed Assessment and Plan Sarina Lovett is a 73 year old female with PMH of CAD (CABG in 2005, PCI to RCA in 2000 and 2015), aortic stenosis (s/p replacement in 2005 with #[address] [employer] Bioprosthetic valve), HTN, HLD, DM2 admitted for NSTEMI S/p cath 03/26 with 2 DAVID placed in SVG to RCA, later developed JULIETA treated with IVF. Patient developed acute respiratory failure 03/27 required discontinuing IVF, IV lasix, and intermittent CPAP Currently, SOB improved Creatinine slightly worsened s/p lasix 1- JULIETA on CKD 3 Possible contrast induced nephropathy Await renal US Avoid nephrotoxic medications Daily labs Lasix as needed for fluid overload/worsening SOB 2- HTN Hold BP medications Resume If systolic BP > 150 3- hyperkalemia Resolved 4- Anion gap acidosis HCO3 14 Check lactate 5-Elevated CK Monitor SIGNATURE: Germain De Los Santos MD PATIENT NAME: Sarina Lovett DATE: March 28, 2018 TIME: 11:08 AM PAGER/CONTACT #: [phone] Addendum Patient seen and examined. Agree with Dr. De Los Santos's progress note. Renal function is worsening likely due to contrast nephropathy. Give Lasix as needed when she is SOB. Renal US shows splenic masses - consider noncontrast CT. Lactate is normal. Dr Real Normal [facility] Lactateon 03-28-2018 Lactate molar conc 1.1 mmol/L Normal 0.4-2.0 [facility] Comment on above: Performed By: #### L ACT ####[facility] [place], [place] [phone] Magnesiumon 03-28-2018 Magnesium mass conc 1.7 mg/dL Normal 1.7-2.6 [facility] Comment on above: Performed By: #### B , MG1 ####[place] [id number] [place], [place] [phone] NURSING PROGon 03-28-2018 Protein mass conc HNO ID: [id number] Author: Delma CabreraRn) DEBBIE Garsia Service: Critical Care Author Type: Registered Nurse Type: Nursing Progress Note Filed: 03/28/2018 4:02 PM Note Text: 0715Bedside care assumed at this time.Awake/alert with clear spesech.Speaking on the telephone.Resp's mildly labored.No change from previous per offgoing RN.. (improved from overnight period of resp distress) 1000Up to bathroom with assist times one.Tolerated ambulation with no increase in sob.. 1155Up to bathroom for bowel movement. 1530Family at bedside.Patient continues to deny complaints. Normal [facility] Protein mass conc HNO ID: [id number] Author: Constantine CabreraRn) DEBBIE Potter Service: (none) Author Type: Registered Nurse Type: Nursing Progress Note Filed: 03/28/2018 7:47 AM Note Text: Nursing Progress Note Patient Name: Sarina Lovett Patient Location: [place] [address]/[place] [address]* Daily Note: 1914: Received report from DEBBIE Mclaughlin. 1999: Assessment complete, see flow sheet. Pt presenting with lower diastolic pressures but with MAP WNL. All other VSS. 2129: Pt presenting with increasing SOB at rest and upon exertion and toileting. Orders for CPAP and Browning Catheter placed by [facility] Hospitalist. 2199: [place] hospitalist notified of widening pulse pressures and decreased diastolic preesure. Orders placed for ECHO to be completed. 0000: Assessment complete, see flow sheet. 0400: Assessment complete, see flow sheet. 0530: Removed pt CPAP per [facility] hospitalist permission. Pt placed on 6L NC. Pt SpO2 > 92% 0600: Pt placed on 4L NC. Pt SpO2 > 92% 0630: Pt placed on 2L NC. Pt SpO2 > 92%. 0715: Report given to DEBBIE Nguyễn This note was completed by: Constantine Potter RN [facility] PROGRESSon 03-28-2018 Protein mass conc HNO ID: [id number] Author: Kinsey Dumas MD Service: Hospital Medicine Author Type: Resident Type: Progress Notes Filed: 03/28/2018 9:47 AM Note Text: Attestation signed by Mame Bowers at 03/28/2018 12:00 PM (Updated) I saw and evaluated the patient. Discussed with the resident and agree with resident's findings and plan as documented in the resident's note. NonSTEMI s/p 2 DAVID to SVG to RCA - on ASA, plavix, - allergic to statins and holding LOS due to JULIETA Acute hypoxic respiratory failure Likely related to pulmonary edema with CHF Likely Acute on chronic diastolic CHF exacerbation Hx of smoking and COPD - worsening Pro BNP - received higher dose of IV lasix since last night? - monitor closely and give lasix carefully - will hold further lasix today - awaiting ECHO result - repeat CXR - clinically still has BL crackles - does not seem to have Acute exacerbation - will DC ABx and steroids JULIETA on CKD 3 - no more fluids as pt seems to have pulmonary edema - monitor closely - appreciate nephrology input Rest of the details as per below note. Mame Bowers MD Staff, Hospital Medicine March 28, 2018 HOSPITAL MEDICINE [facility] PROGRESS NOTE NAME: Sarina Lovett SERVICE DATE: 03/28/2018 SERVICE TIME: 9:45 AM ASSESSMENT AND PLAN Sarina Lovett is a 73 year old female with PMH of CAD (CABG in 2005, PCI to RCA in 2000 and 2015), aortic stenosis (s/p replacement in [address] with #[address] [employer] Bioprosthetic valve), HTN, HLD, DM?who presented with chest pain and elevated troponin, concerning for NSTEMI. ? NSTEMI (non-ST elevated myocardial infarction) (HCC) POA: Yes Chest pain POA: Yes Coronary atherosclerosis POA: Yes Patient with significant CAD history presenting with chest pain and elevated troponin 0.025 ->?0.032 ->?0.038. EKG without significant changes from prior, dose have LVH and RBBB. Cath on 03/26 with 2 DAVID placed in SVG to RCA. Post-cath patient had further chest pain, restarted on nitro drip which was discontinued on 03/27. - repeat echo pending - continue aspirin, plavix, pt allergic to statins, holding LOS as below - cardiology consulted, appreciate assistance from Dr. Browne Acute hypoxic respiratory failure Chronic COPD Patient with increasing SOB on 03/27 in PM, thought to be due to pulmonary edema with superimposed COPD, though patient not hypercapnic. Given 200mg IV lasix on 03/27 in PM, and 120mg IV on 03/28 in AM, subsequently diuresed 2L. Started on augmentin 500mg BID on 03/27/2018 (QTc 529, no azithromycin) and steroids for concern regarding COPD exacerbation, as patient has 50 pack year smoking history. Was not on COPD medications at home, and presentation appears more consistent with CHF exacerbation than COPD exacerbation. Last EF in 2015 48%, repeat echo pending. - hold off on abx and steroids - was on CPAP overnight, weaned to NC - supplemental O2 PRN to keep SpO2 > 92% - duonebs q4h while awake - will repeat CXR this morning ? Hypertensive emergency POA: Yes Essential hypertension, benign POA: Yes Patient presented with SBP>200 with chest pain and possible JULIETA. On coreg 12.5mg BID, lisinopril 20mg daily at home. Improved while on nitro, given 5mg IV hydralazine. - coreg 12.5mg BID - hydralazine 25mg TID - nifedipine 30mg BID - consider resuming ACEi in the future based on kidney function ? JULIETA on CKD3 Baseline Cr unclear, but definite underlying CKD as GFR has been <60 for past years. Possible JULIETA, will continue to monitor. Cr on admission 1.5, increased on 03/27 to 1.79. Did receive IV lasix on 03/27 as well as IVF. Minimal proteinuria. - monitor BMP - avoid nephrotoxic agents - patient received a total of 320mg of IV lasix on 03/27-03/28, will monitor and not give further lasix - nephrology following, appreciate input - check renal US - in process ? Tobacco abuse POA: Yes 50 pack-year history, encourage cessation. ? Psychiatric disorder POA: Yes Patient with history of depression, significant social stressors. - continue zoloft 150mg daily, wellbutrin 150mg daily - behavioral health consulted, appreciate input ? T2DM ? On glimepiride 1mg BID at home, last A1c 9.3% in 08/2016 at [facility]. Repeat A1c on admission 6.0%. - SSI1 - holding home glimepiride due to JULIETA ? Hyperkalemia 5.6 on 03/27, holding ACEi in setting of JULIETA and did receive lasix 60mg IV on 03/27. S/p kayexalate 30mg once on 03/27 with improvement in potassium. - monitor BMP ? Hypomagnesemia 1.7 on admission. Continue to monitor. - replete PRN ? Anemia Chronic anemia, baseline Hgb 9-11 range. - check iron studies ? VTE Prophylaxis - DAPT with plavix and aspirin; IPCs Dispo - continue care in [facility] SUBJECTIVE INTERVAL HPI: Mrs. Lovett feels okay this morning. Overnight she was very short of breath, but actually feels like her breathing is good this morning. She denies chest pain or palpitations. MEDICATIONS: Reviewed OBJECTIVE VITAL SIGNS (last 24hrs min/max): Temp Av.9 ?C (98.4 ?F) Min: 36.5 ?C (97.7 ?F) Max: 37.5 ?C (99.5 ?F) Pulse Av.8 Min: 57 Max: 87 Cuff BP Min: 111/38 Max: 167/41 Pain Score: 0/10 PHYSICAL EXAM: General: Alert, no distress, cooperative Lungs: + bibasilar crackles with decreased breath sounds RLL Cardiac: NL S1 and S2, + holosystolic murmur Abdomen: Non-tender, BS normal Extremities: No edema or skin discoloration Neuro: Grossly normal cognition, motor function DATA: Diagnostic tests reviewed for today's visit: Most recent labs Most recent EKG Most recent image Kinsey Dumas MD Family Medicine PGY2 March 28, 2018 [facility] XR CHEST 1V FRONTAL PORTon 0 03-28-2018 XR CHEST 1V FRONTAL PORT * * *Final Report* * * DATE OF EXAM: Mar 28 2018 10:20AM [id number] - XR CHEST 1V FRONTAL PORT / PROCEDURE REASON: Shortness of breath * * * * Physician Interpretation * * * * EXAMINATION: CHEST RADIOGRAPH (PORTABLE SINGLE VIEW AP) Exam Date/Time: 03/28/2018 10:20 AM CLINICAL HISTORY: Shortness of breath, MQ: [id number]_5 Comparison: 1 day prior RESULT: Lines, tubes, and devices: Median sternotomy wires and surgical clips are noted related to prior CABG. Lungs and pleura: Right upper lobe infiltrate, right lower lobe infiltrate and left retrocardiac infiltrate persists. A trace pleural effusion is seen on the left. Cardiomediastinal silhouette: Stable cardiomediastinal silhouette. Other: . IMPRESSION: Persistent bilateral alveolar infiltrates without appreciable interval change Armature Rewinder: PSCB Transcribe Date/Time: Mar 28 2018 10:55A Dictated by : EULALIO WILLIAM MD This examination was interpreted and the report reviewed and electronically signed by: EULALIO WILLIAM MD on Mar 28 2018 10:57AM EST [id number] N [facility] ALLIED HEALTHon 03-27-2018 ALLIED HEALTH HNO ID: [id number] Author: Amanda Angel (Rt) Service: Radiology Author Type: Commercial Management Accountant Type: Allied Health Filed: 03/27/2018 6:29 PM Note Text: Radiology Service Progress Note PATIENT NAME: Sarina Lovett DATE OF SERVICE: March 27, 2018 TIME: 6:29 PM PATIENT IDENTITY VERIFICATION COMPLETED USING TWO (2) METHODS: Patient confirmed name verbally and ID band matches.. PATIENT GENDER DATA: Female. status: : No status: NO. PATIENT RELEVANT IMPLANT DATA REVIEWED: Not Applicable RADIOLOGY DEPARTMENT: General X-ray: Exam(s) Completed: Chest X-Ray PERIPHERAL IV DATA: Not applicable SIGNED BY: Shira Venegas RT March 27, 2018 6:29 PM [facility] Arterial Blood Gas (FOR WEST USE ONLY)on 03-27-2018 Base Excess NEG 10 Normal [facility] Comment on above: Result Comment: -3 t o 3 Performed By: #### A BGR ####[address] CO2 molar conc 16 mmol/L Low 22.0-28.0 [facility] Comment on above: Performed By: #### A BGR ####[place] [address] Device Nasal Cannula [facility] Comment on above: Performed By: #### A BGR ####[place] [address] Drawsite Left Radial + [facility] Comment on above: Performed By: #### A BGR ####[place] [address] HCO3 molar conc (Bld) 15 mmol/L Low 22-26 [facility] Comment on above: Performed By: #### A BGR ####[address] O2 Administered 45.0 [facility] Comment on above: Performed By: #### A BGR ####[place] [id number] Oxygen ppres (Bld) 68 mm Hg Low 80-100 [facility] Comment on above: Performed By: #### A BGR ####[place] [phone] Oxygen ppres (Bld) 92 % Normal 90-98 [facility] Comment on above: Performed By: #### A BGR ####[place] [phone] pCO2 33 mm Hg Low 35-48 [facility] Comment on above: Performed By: #### A BGR ####[place] [phone] pH (Bld) 7.29 [pH] Low 7.35-7.45 [facility] Comment on above: Performed By: #### A BGR ####[place] [phone] Basic Metabolic Panlon 03-27 Anion gap molar conc 17 mmol/L Normal 9-18 [facility] Comment on above: Performed By: #### P TT, NTBNP, HSTNT, CBCDIF, PT, CKCKMB, CMP #### [place] [address] Calcium mass conc 8.6 mg/dL Normal 8.5-10.5 [facility] Comment on above: Performed By: #### P TT, NTBNP, HSTNT, CBCDIF, PT, CKCKMB, CMP #### [place] [address] Chloride molar conc 104 mmol/L Normal 98-110 [facility] Comment on above: Performed By: #### P TT, NTBNP, HSTNT, CBCDIF, PT, CKCKMB, CMP #### [place] [address] CO2 molar conc 15 mmol/L Low 23-32 [facility] Comment on above: Performed By: #### P TT, NTBNP, HSTNT, CBCDIF, PT, CKCKMB, CMP #### [place] [id number] Creatinine mass conc 1.79 mg/dL High 0.70-1.40 [facility] Comment on above: Performed By: #### P TT, NTBNP, HSTNT, CBCDIF, PT, CKCKMB, CMP #### [place] [phone] eGFR- Amer. 34 Low >60 [facility] Comment on above: Performed By: #### P TT, NTBNP, HSTNT, CBCDIF, PT, CKCKMB, CMP #### [place] [phone] GFR/1.73 sq M predicted among non-blacks MDRD vol rate/area (S/P/Bld) 28 . Low >60 [facility] Comment on above: Performed By: #### P TT, NTBNP, HSTNT, CBCDIF, PT, CKCKMB, CMP #### [place] [phone] Glucose mass conc 127 mg/dL High 65-100 [facility] Comment on above: Performed By: #### P TT, NTBNP, HSTNT, CBCDIF, PT, CKCKMB, CMP #### [place] [phone] Potassium molar conc 5.6 mmol/L High 3.5-5.0 [facility] Comment on above: Result Comment: Revi ewed Performed By: #### P TT, NTBNP, HSTNT, CBCDIF, PT, CKCKMB, CMP #### [place] [phone] Sodium molar conc 136 mmol/L Normal 132-148 [facility] Comment on above: Performed By: #### P TT, NTBNP, HSTNT, CBCDIF, PT, CKCKMB, CMP #### [place] [phone] Urea nitrogen mass conc 37 mg/dL High 8-25 [facility] Comment on above: Performed By: #### P TT, NTBNP, HSTNT, CBCDIF, PT, CKCKMB, CMP #### [place] [phone] CASE MGT INIT CARROLLon 2018 CASE MGT INJOSE F [facility] HNO ID: [id number] Author: Yoon (Rn) DEBBIE Marshall Service: Case Management Author Type: Registered Nurse Type: Care Mgt Initial Assessment Filed: 03/27/2018 12:12 PM Note Text: CARE MANAGEMENT: ASSESSMENT AND DISCHARGE PLAN SERVICE DATE: 03/27/2018 SERVICE TIME: 1200 PRIMARY CARE PHYSICIAN: Sacha Ford MD ADMISSION STATUS: Inpatient Needs Prior to Discharge: To Be Determined MEDICAL: Patient/Representativ e Stated Goals: To have reduction in symptoms To improve my functional status Health Insurance: [employer] Health Issues Impacting Discharge Plan: Chronic DM,HTN Last Admission Date: Previous admit date: 02/27/2015 Is this Within the Past 30 days? No Advance Directive: Current Advance Directive: None Ticker Wirer Attempted to Assist with AD Completion: Yes Action: Education Provided;Patient Unwilling Health Literacy: 1. How often do you need to have someone help you when you read instructions, pamphlets, or other written material from your doctor or pharmacy? Never - 1 2. How confident are you filling out medical forms by yourself? Extremely - 1 If Patient scores > 3 on either question, the following interventions were put into place: Patient did not score > 3 FUNCTIONAL AND COGNITIVE/BEHAVIORAL PRIOR TO ADMISSION: Baseline Mental Status: Alert AND Oriented, Person, Place , Time and Situation Functional Status: Independent Does Patient Currently Receive Any Community Services or Home Care? None Equipment Prior to Admission: None Has the Patient Been in a [facility] Facility in the Past 30 days? N/A SOCIAL: Living Arrangement: Home Lives With: Spouse Financial Resources: Retired Primary Contact: Extended Emergency Contact Information Primary Emergency Contact: Daniel Lovett Address: [address] [place] [address] OF [facility] Mobile Relation: Spouse Supportive: Yes Other Important Patient Contacts: None Caregiver Assessment: Caregiver is ready, willing and able to meet the patient's needs as recommended by the inter-professional team? No Caregiver Needed Patient's transition needs and plan for meeting these needs: Home with no skilled needs Does the patient have an acute stroke diagnosis, or has the patient had a stroke during this admission? No Medication Adherence: I am convinced of the importance of my prescription medication: Agree completely - 0 I worry that my prescription medication will do more harm than good to me Disagree completely - 0 I feel financially burdened by my ssw-yp-voxuvn expenses for my prescription medication: Disagree completely - 0 Patient is categorized as low risk < 2 Are you interested in bedside delivery of your medications? No Food Concerns: In the Last Month, Have You had Trouble Getting Food? No trouble getting food During the Last Month, Have You Worried Whether Your Food Would Run Out Before You Had Enough Money to Buy More? No Is the Patient Psychosocially Complex? 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 Met with pt at bedside, pt states she is independent , drives and lives with her , B/B is on the same floor, pt denies any DME, plan for home with no skilled needs. SIGNATURE: Yoon Marshall RN,BSN PATIENT NAME: Sarina Lovett DATE: March 27, 2018 TIME: 12:06 PM PAGER/CONTACT #: [phone] Normal [facility] CBC and Differentialon 03-27 Abs Baso <0.03 Normal <0.11 [facility] Comment on above: Performed By: #### P TT, NTBNP, HSTNT, CBCDIF, PT, CKCKMB, CMP #### [place] [phone] Abs [place] 0.60 k/uL Normal <0.87 [facility] Comment on above: Performed By: #### P TT, NTBNP, HSTNT, CBCDIF, PT, CKCKMB, CMP #### [place] [phone] Abs Neut 9.61 k/uL High 1.45-7.50 [facility] Comment on above: Performed By: #### P TT, NTBNP, HSTNT, CBCDIF, PT, CKCKMB, CMP #### [place] [phone] Basophils/100 WBC (Bld) 0.2 % Normal [facility] Comment on above: Performed By: #### P TT, NTBNP, HSTNT, CBCDIF, PT, CKCKMB, CMP #### [place] [address] DTYPE Auto Diff Normal [facility] Comment on above: Performed By: #### P TT, NTBNP, HSTNT, CBCDIF, PT, CKCKMB, CMP #### [place] [address] Eosinophils #/vol (Bld) 0.05 10*3/uL Normal <0.46 [facility] Comment on above: Performed By: #### P TT, NTBNP, HSTNT, CBCDIF, PT, CKCKMB, CMP #### [place] [address] Eosinophils/100 WBC (Bld) 0.5 % Normal [facility] Comment on above: Performed By: #### P TT, NTBNP, HSTNT, CBCDIF, PT, CKCKMB, CMP #### [place] [address] Erythrocyte distribution width Ratio (RBC) 13.8 % Normal 11.5-15.0 [facility] Comment on above: Performed By: #### P TT, NTBNP, HSTNT, CBCDIF, PT, CKCKMB, CMP #### [place] [address] Hematocrit Volume Fraction (Bld) 29.2 % Low 36.0-46.0 [facility] Comment on above: Performed By: #### P TT, NTBNP, HSTNT, CBCDIF, PT, CKCKMB, CMP #### [place] [address] Hemoglobin mass conc (Bld) 9.3 g/dL Low 11.5-15.5 [facility] Comment on above: Performed By: #### P TT, NTBNP, HSTNT, CBCDIF, PT, CKCKMB, CMP #### [place] [phone] Lymphocytes #/vol (Bld) 0.69 10*3/uL Low 1.00-4.00 [facility] Comment on above: Performed By: #### P TT, NTBNP, HSTNT, CBCDIF, PT, CKCKMB, CMP #### [address] Lymphocytes/100 WBC (Bld) 6.3 % Normal [facility] Comment on above: Performed By: #### P TT, NTBNP, HSTNT, CBCDIF, PT, CKCKMB, CMP #### [place] [phone] MCH Entitic mass (RBC) 28.6 pG Normal 26.0-34.0 [facility] Comment on above: Performed By: #### P TT, NTBNP, HSTNT, CBCDIF, PT, CKCKMB, CMP #### [place] [phone] MCHC mass conc (RBC) 31.8 g/dL Normal 30.5-36.0 [facility] Comment on above: Performed By: #### P TT, NTBNP, HSTNT, CBCDIF, PT, CKCKMB, CMP #### [place] [phone] MCV Entitic volume (RBC) 89.8 fL Normal 80.0-100.0 [facility] Comment on above: Performed By: #### P TT, NTBNP, HSTNT, CBCDIF, PT, CKCKMB, CMP #### [place] [phone] Monocytes/100 WBC (Bld) 5.5 % Normal [facility] Comment on above: Performed By: #### P TT, NTBNP, HSTNT, CBCDIF, PT, CKCKMB, CMP #### [place] [phone] Neutrophils/100 WBC (Bld) 87.5 % Normal [facility] Comment on above: Performed By: #### P TT, NTBNP, HSTNT, CBCDIF, PT, CKCKMB, CMP #### [place] [phone] Platelet mean volume Entitic volume (Bld) 10.4 fL Normal 9.0-12.7 [facility] Comment on above: Performed By: #### P TT, NTBNP, HSTNT, CBCDIF, PT, CKCKMB, CMP #### [place] [phone] Platelets #/vol (Bld) 141 10*3/uL Low 150-400 [facility] Comment on above: Performed By: #### P TT, NTBNP, HSTNT, CBCDIF, PT, CKCKMB, CMP #### [phone] RBC #/vol (Bld) 3.25 10*6/uL Low 3.90-5.20 [facility] Comment on above: Performed By: #### P TT, NTBNP, HSTNT, CBCDIF, PT, CKCKMB, CMP #### [place] [phone] WBC #/vol (Bld) 10.97 10*3/uL Normal 3.70-11.00 [facility] Comment on above: Performed By: #### P TT, NTBNP, HSTNT, CBCDIF, PT, CKCKMB, CMP #### [phone] CK, Total and CKMBon 019 CK enzyme act/vol 1014 U/L High 30-220 [facility] Comment on above: Performed By: #### P TT, NTBNP, HSTNT, CBCDIF, PT, CKCKMB, CMP #### [place] [phone] CK MB % 11.4 % High 0.0-4.0 [facility] Comment on above: Result Comment: Call ed to and read back by: DEBBIE PRO [facility] 03/27/18 0525 ROBB Performed By: #### P TT, NTBNP, HSTNT, CBCDIF, PT, CKCKMB, CMP #### [facility] [address] [place] [address] MB 115.9 ng/mL High 0.0-8.8 [facility] Comment on above: Performed By: #### P TT, NTBNP, HSTNT, CBCDIF, PT, CKCKMB, CMP #### [facility] [address] [place] [address] CONSULT PROGon 03-27-2018 Protein mass conc HNO ID: [id number] Author: Marito Real Service: Hypertension AND Nephrology Author Type: Physician Type: Consult Progress Note Filed: 03/27/2018 3:34 PM Note Text: NEPHROLOGY CONSULT PROGRESS NOTES PATIENT NAME: Sarina Lovett SERVICE DATE: 03/27/2018 SERVICE TIME: 3:31 PM CONSULTING SERVICE: NEPHROLOGY ASSESSMENT/PLAN JULIETA on CKD 3 Possible contrast nephropathy today. Had 100cc IV contrast yesterday Can stop IVF Has minimal proteinuria Await renal US CKD could be due to DM nephropathy Will avoid ACEI and diuretics until presently Daily labs ? HTN Start Procardia XL 30mg bid, hold for SBP<150. Stop Norvasc. Increase to 60mg bid if BP remains elevated Lisinopril can be restarted after cath completed ? Hyperkalemia Hold Lisinopril presently ? Anemia Ferritin is <200 Cont PO Iron ? Met Acidosis Will add NaHCO3 today ? Tobacco Use She plans to quit smoking after d/c SUBJECTIVE INTERVAL HPI: had cath yesterday with 2 stents. Cp is resolving MEDICATIONS: Current hospital medications: morphine 1 mg injection 1 mg INTRAVENOUS PRN NIFEdipine XL 30 mg tab(s) (ADALAT CC) 30 mg ORAL BID atorvastatin 80 mg tab(s) (LIPITOR) 80 mg ORAL AT BEDTIME nitroglycerin sublingual 0.4 mg tab(s) (NITROQUICK) 0.4 mg SUBLINGUAL PRN prochlorperazine 5 mg injection (COMPAZINE) 5 mg INTRAVENOUS q 6 H PRN carvedilol 12.5 mg tab(s) (COREG) 12.5 mg ORAL BID w MEALS hydrALAZINE 25 mg tab(s) (APRESOLINE) 25 mg ORAL q 8 H acetaminophen 650 mg tab(s) (TYLENOL) 650 mg ORAL q 4 H PRN insulin lispro injection (rapid acting) (HumaLOG) SUBCUTANEOUS w MEALS AND HS aspirin 81 mg chewable tab(s) 81 mg ORAL DAILY sertraline 150 mg tab(s) (ZOLOFT) 150 mg ORAL DAILY clopidogrel 75 mg tab(s) (PLAVIX) 75 mg ORAL DAILY buPROPion XL 150 mg tab(s) (WELLBUTRIN XL) 150 mg ORAL DAILY NaCl 0.9% 3-5 mL 3-5 mL INTRAVENOUS q 12 H ondansetron 4 mg tab(s) (ZOFRAN) 4 mg ORAL q 6 H PRN ondansetron (PF) 4 mg injection (ZOFRAN) 4 mg INTRAVENOUS q 6 H PRN polyethylene glycol 3350 17 g packet (MIRALAX, GLYCOLAX) 17 g ORAL DAILY PRN bisacodyl 10 mg suppository (DULCOLAX) 10 mg RECTAL DAILY PRN melatonin 1 mg tab(s) 1 mg ORAL HS PRN dextrose 40 % 15 g 15 g ORAL PRN glucagon 1 mg injection (GLUCAGEN) 1 mg INTRAMUSCULAR PRN dextrose 50% in water 25 mL syringe 12.5 g INTRAVENOUS PRN perflutren lipid microspheres 1.1 mg/mL 1.3 mL injection (DEFINITY) 1.3 mL INTRAVENOUS DIRECTED PRN pantoprazole DR 20 mg tab(s) (PROTONIX) 20 mg ORAL DAILY (6 AM) OBJECTIVE PHYSICAL EXAM: Patient Vitals for the past 24 hrs: BP Temp Temp src Pulse Resp SpO2 Height Weight 03/27/18 1400 (!) 111/38 - - (!) 57 23 96 % - - 03/27/18 1300 (!) 128/36 - - (!) 57 20 99 % - - 03/27/18 1200 (!) 132/35 37 ?C (98.6 ?F) Oral (!) 59 24 98 % - - 03/27/18 1100 (!) 152/43 - - 61 20 99 % - - 03/27/18 1000 140/51 - - 79 20 92 % - - 03/27/18 0900 132/76 - - 65 18 90 % - - 03/27/18 0800 (!) 149/40 36.6 ?C (97.9 ?F) Oral (!) 59 20 98 % - - 03/27/18 0700 (!) 144/45 - - 60 18 97 % - - 03/27/18 0600 (!) 141/37 36.7 ?C (98.1 ?F) - 61 20 99 % 170.2 cm (5' 7.01 ) 81.1 kg (178 lb 12.7 oz) 03/27/18 0500 (!) 140/40 - - (!) 59 27 97 % - - 03/27/18 0400 (!) 145/42 - - (!) 59 25 90 % - - 03/27/18 0300 131/52 - - (!) 55 21 92 % - - 03/27/18 0200 (!) 135/42 - - (!) 53 18 90 % - - 03/27/18 0100 (!) 118/49 - - (!) 53 19 90 % 170.2 cm (5' 7.01 ) 77.8 kg (171 lb 8.3 oz) 03/27/18 0000 (!) 150/39 36.8 ?C (98.2 ?F) Oral (!) 52 16 94 % - - 03/26/18 2300 (!) 159/45 - - (!) 54 16 93 % - - 03/26/18 2200 (!) 157/43 - - (!) 57 18 94 % - - 03/26/18 2100 (!) 151/48 - - (!) 59 17 94 % - - 03/26/18 2000 (!) 139/35 36.7 ?C (98.1 ?F) Axillary (!) 52 15 94 % - - 03/26/18 1930 (!) 146/41 - - (!) 52 19 96 % - - 03/26/18 1915 98/50 - - (!) 51 20 96 % - - 03/26/18 1900 (!) 148/41 - - (!) 51 14 96 % - - 03/26/18 1845 (!) 135/36 - - (!) 51 16 95 % - - 03/26/18 1830 (!) 139/41 - - (!) 50 16 94 % - - 03/26/18 1815 (!) 132/46 - - (!) 49 15 94 % - - 03/26/18 1800 (!) 125/39 - - (!) 49 16 95 % - - 03/26/18 1745 133/99 - - (!) 49 16 99 % - - 03/26/18 1730 (!) 145/39 - - (!) 48 16 99 % - - 03/26/18 1715 (!) 143/40 - - (!) 48 16 99 % - - 03/26/18 1700 (!) 132/39 - - (!) 49 14 99 % - - 03/26/18 1645 (!) 127/46 - - (!) 48 14 98 % - - 03/26/18 1630 (!) 134/38 - - (!) 47 18 98 % - - 03/26/18 1625 (!) 126/37 - - (!) 47 20 99 % - - 03/26/18 1620 (!) 128/33 - - (!) 47 17 98 % - - 03/26/18 1615 (!) 129/36 - - (!) 49 20 99 % - - 03/26/18 1610 (!) 116/42 - - (!) 47 16 98 % - - 03/26/18 1605 (!) 117/35 - - (!) 50 19 97 % - - 03/26/18 1600 (!) 115/35 36.3 ?C (97.3 ?F) Oral (!) 48 20 99 % - - 03/26/18 1555 110/72 - - (!) 50 20 98 % - - 03/26/18 1550 99/74 - - (!) 51 16 98 % - - 03/26/18 1545 (!) 123/36 - - (!) 48 16 99 % - - 03/26/18 1540 (!) 121/33 - - (!) 48 17 98 % - - 03/26/18 1535 (!) 93/30 - - (!) 49 22 98 % - - Body mass index is 28 kg/m?. Date 03/27/18 07 - 03/28/18 0659 Shift 1308-7812 4590-5544 9727-5246 24 Hour Total I N T A K E PO 240 240 Shift Total 240 240 O U T P U T Shift Total Weight (kg) 81.1 81.1 81.1 81.1 Intake/Output 03/24/18 0700 - 03/25/18 0659 03/25/18 0700 - 03/26/18 0659 03/26/18 0700 - 03/27/18 0659 03/27/18 07 - 03/28/18 0659 Intake (ml) 200 1755 2816.6 240 Output (ml) 800 1875 700 -- Net (ml) -600 -120 2116.6 240 GENERAL: no distress LUNGS: bibasilar rales CARDIAC: Normal S1 and S2; no rubs, murmurs, or gallops EXTREMITIES:No edema DATA: Diagnostic tests reviewed for today's visit: Most recent labs and imaging results. CBC, Coags, BMP, Mg, Phos Recent Labs 03/27/18 1141 03/27/18 0428 03/26/18 0400 03/25/18 1148 03/25/18 0936 03/25/18 0616 03/25/18 0615 03/24/18 2051 03/24/18 1735 WBC -- 10.97 4.28 -- -- -- 6.46 -- -- 8.85 HB -- 9.3* 9.3* -- -- -- 9.9* -- -- 11.8 HCT -- 29.2* 28.1* -- -- -- 29.8* -- -- 35.8* PLT -- 141* 145* -- -- -- 157 -- -- 210 INR -- -- -- -- -- -- -- -- -- 1.0 APTT -- -- 53.5* 53.2* -- 54.3* -- < > -- 26.0 NA -- 136 135 -- 135 -- -- -- -- 137 K 5.8* 5.6* 4.6 -- 5.0 -- -- -- -- 5.8* CHLOR -- 104 104 -- 101 -- -- -- -- 101 CO2 -- 15* 19* -- 18* -- -- -- -- 22* BUN -- 37* 32* -- 30* -- -- -- -- 34* CREAT -- 1.79* 1.63* -- 1.42* -- -- -- -- 1.50* GLUC -- 127* 113* -- 125* -- -- -- -- 243* CA -- 8.6 9.0 -- 8.7 -- -- -- -- 9.8 MG -- 2.0 -- -- -- -- 1.7 -- 1.7 -- P -- 4.7* -- -- -- -- -- -- -- -- < > = values in this interval not displayed. Liver Function, Amylase, AND Lipase Recent Labs 03/24/18 1735 TPROT 8.0 ALB 4.6 ALT 7 AST 10 ALKPHOS 113 TBILI 0.2 ABGs SIGNATURE: Marito Real MD DATE: March 27, 2018 TIME: 3:31 PM Normal [facility] Protein mass conc HNO ID: [id number] Author: Alicia Miller Service: Psychiatry Author Type: Physician Type: Consult Progress Note Filed: 03/27/2018 10:30 AM Note Text: PSYCHIATRY CONSULT SERVICE PROGRESS NOTE PATIENT NAME: Sarina Lovett SERVICE DATE: March 27, 2018 ASSESSMENT: Dysthymia H/O Recurrent Major Depression, Moderate H/O Gen Anxiety DO Cluster B Personality Traits? Chronic interpersonal conflict with children RECOMMENDATIONS: Continue Sertraline 150 mg po daily Continue Welbutrin XL 150 mg po daily Patient receives meds from PMD; encouraged her to consider outpatient psychiatric care. She may return back to her former therapist Dr. Melody Montero on [facility] in [place]. Supportive therapy provided. She declines phone call to her for collateral info. Will sign off, please reconsult psychiatry should further acute psychiatric issues arise during this admission. SUBJECTIVE: Ms. Lovett is sitting propped up in bed, watching the [employer]. Reviews most recent stressors, including ongoing (chronic) strained relationship with 3 of her 5 children. Maintains good relationship with son in [place] and daughter in [place], [place]. Struggled more with mood since closest sister 1.5 years ago (noncompliant with meds). Says taking Sertraline (recently increased to 150 mg po daily) and Welbutrin XL for last 5-10 years. Tolerating medications without issues. Saw Dr. Melody Maurice in [place] for a couple of years and stopped going in July - says because made [her] stop going. Thinking about going back to her and easily able to get in touch with Dr. Maurice again if needed. Says does not believe in psychology, does not believe in God, does not believe in anything and would not be a good person to talk to for collateral information. OBJECTIVE: Vital Signs: 03/27/18 0500 03/27/18 0600 03/27/18 0700 03/27/18 0800 BP: (!) 140/40 (!) 141/37 (!) 144/45 (!) 149/40 Pulse: (!) 59 61 60 (!) 59 Resp: 27 20 18 20 Temp: 36.7 ?C (98.1 ?F) 36.6 ?C (97.9 ?F) TempSrc: Oral SpO2: 97% 99% 97% 98% Weight: 81.1 kg (178 lb 12.7 oz) Height: 170.2 cm (5' 7.01 ) PHYSICAL EXAMINATION: Muscle Tone/Strength: No rigidity, tremor, hyperreflexia, or clonus noted. Moved extremities against gravity. Neuro: Cranial nerves II-XII grossly intact. Gait/Station: Not tested; she was sitting propped up in bed. MENTAL STATUS EXAMINATION: Appearance: hospital gown, white eyeglasses, silver hair, reasonably groomed, no tremors or sweats Behavior: engaged, cooperative, talkative, engaged Psychomotor: No psychomotor agitation. Cognition Level of Consciousness: Awake and alert. No fluctuation in wakefulness. Orientation: Person, Place, Time and Situation Memory: Intact Attention/Concentrati on: in tact Fund of Knowledge: Able to demonstrate an awareness of current events. Mood: nothing new, just the same issues for years now Affect: euthymic and reactive within a normal range. Speech/Language: Appropriate tone, prosody, bruna, phonetics, and syntax Thought Form: Goal-directed. No loosening of associations. Thought Content: No delusions noted or endorsed. Perceptual disturbances: Did not appear to respond to auditory stimuli. Safety: Suicidal Ideations: No suicidal ideation, intent or plan. Homicidal Ideations: No homicidal ideation, intent or plan. Insight: Recognized the presence of illness. Judgment: Appropriate MEDICATIONS: Current hospital medications: morphine 1 mg injection 1 mg INTRAVENOUS PRN sodium polystyrene sulfonate 30 g oral powder (KAYEXALATE) 30 g ORAL ONCE NIFEdipine XL 30 mg tab(s) (ADALAT CC) 30 mg ORAL BID atorvastatin 80 mg tab(s) (LIPITOR) 80 mg ORAL AT BEDTIME nitroglycerin sublingual 0.4 mg tab(s) (NITROQUICK) 0.4 mg SUBLINGUAL PRN prochlorperazine 5 mg injection (COMPAZINE) 5 mg INTRAVENOUS q 6 H PRN carvedilol 12.5 mg tab(s) (COREG) 12.5 mg ORAL BID w MEALS hydrALAZINE 25 mg tab(s) (APRESOLINE) 25 mg ORAL q 8 H acetaminophen 650 mg tab(s) (TYLENOL) 650 mg ORAL q 4 H PRN insulin lispro injection (rapid acting) (HumaLOG) SUBCUTANEOUS w MEALS AND HS aspirin 81 mg chewable tab(s) 81 mg ORAL DAILY sertraline 150 mg tab(s) (ZOLOFT) 150 mg ORAL DAILY clopidogrel 75 mg tab(s) (PLAVIX) 75 mg ORAL DAILY buPROPion XL 150 mg tab(s) (WELLBUTRIN XL) 150 mg ORAL DAILY NaCl 0.9% 3-5 mL 3-5 mL INTRAVENOUS q 12 H ondansetron 4 mg tab(s) (ZOFRAN) 4 mg ORAL q 6 H PRN ondansetron (PF) 4 mg injection (ZOFRAN) 4 mg INTRAVENOUS q 6 H PRN polyethylene glycol 3350 17 g packet (MIRALAX, GLYCOLAX) 17 g ORAL DAILY PRN bisacodyl 10 mg suppository (DULCOLAX) 10 mg RECTAL DAILY PRN melatonin 1 mg tab(s) 1 mg ORAL HS PRN dextrose 40 % 15 g 15 g ORAL PRN glucagon 1 mg injection (GLUCAGEN) 1 mg INTRAMUSCULAR PRN dextrose 50% in water 25 mL syringe 12.5 g INTRAVENOUS PRN perflutren lipid microspheres 1.1 mg/mL 1.3 mL injection (DEFINITY) 1.3 mL INTRAVENOUS DIRECTED PRN pantoprazole DR 20 mg tab(s) (PROTONIX) 20 mg ORAL DAILY (6 AM) Lab Results Component Value Date/Time WBC 10.97 03/27/2018 04:28 AM RBC 3.25 (L) 03/27/2018 04:28 AM HCT 29.2 (L) 03/27/2018 04:28 AM MCV 89.8 03/27/2018 04:28 AM MCH 28.6 03/27/2018 04:28 AM MCHC 31.8 03/27/2018 04:28 AM RDWCV 13.8 03/27/2018 04:28 AM PLT 141 (L) 03/27/2018 04:28 AM NEUTP 87.5 03/27/2018 04:28 AM LYMPHP 6.3 03/27/2018 04:28 AM MONOP 5.5 03/27/2018 04:28 AM EODINP 0.5 03/27/2018 04:28 AM BASOP 0.2 03/27/2018 04:28 AM ABSNEUT 9.61 (H) 03/27/2018 04:28 AM ABSLYM 1.6 05/23/2006 06:31 AM ABSMONO 0.60 03/27/2018 04:28 AM ABSEOSIN 0.05 03/27/2018 04:28 AM ABSBASO <0.03 03/27/2018 04:28 AM GLUC 127 (H) 03/27/2018 04:28 AM NA 136 03/27/2018 04:28 AM K 5.6 (H) 03/27/2018 04:28 AM CHLOR 104 03/27/2018 04:28 AM BUN 37 (H) 03/27/2018 04:28 AM CREAT 1.79 (H) 03/27/2018 04:28 AM MG 2.0 03/27/2018 04:28 AM TSH 3.060 06/02/2015 06:33 AM CO2 15 (L) 03/27/2018 04:28 AM TPROT 8.0 03/24/2018 05:35 PM ALB 4.6 03/24/2018 05:35 PM CA 8.6 03/27/2018 04:28 AM AST 10 03/24/2018 05:35 PM ALT 7 03/24/2018 05:35 PM ALKPHOS 113 03/24/2018 05:35 PM TBILI 0.2 03/24/2018 05:35 PM [facility] Ferritinon 03-27-2018 Ferritin mass conc 116.8 ng/mL Normal 14.7-205.1 [facility] Comment on above: Performed By: #### P TT, NTBNP, HSTNT, CBCDIF, PT, CKCKMB, CMP #### [place] [phone] Iron and TIBCon 03-27-2018 Iron mass conc 40 ug/dL Normal 35-150 [facility] Comment on above: Performed By: #### P TT, NTBNP, HSTNT, CBCDIF, PT, CKCKMB, CMP #### [place] [phone] TIBC 279 ug/dL Normal 250-450 [facility] Comment on above: Performed By: #### P TT, NTBNP, HSTNT, CBCDIF, PT, CKCKMB, CMP #### [place] [phone] Transferrin Saturatn 14 % Low 20-55 [facility] Comment on above: Performed By: #### P TT, NTBNP, HSTNT, CBCDIF, PT, CKCKMB, CMP #### [place] [phone] Magnesiumon 03-27-2018 Magnesium mass conc 2.0 mg/dL Normal 1.7-2.6 [facility] Comment on above: Performed By: #### P TT, NTBNP, HSTNT, CBCDIF, PT, CKCKMB, CMP #### [place] [phone] NT Pro BNPon 03-27-2018 Protein mass conc 70133 pg/mL High <125 [facility] Comment on above: Performed By: #### N TBNP ####[phone] NURSING PROGon 03-27-2018 Protein mass conc HNO ID: [id number] Author: Patricia CabreraRn) Nicki, RN Service: Nursing Author Type: Registered Nurse Type: Nursing Progress Note Filed: 03/27/2018 6:11 AM Note Text: Nursing Progress Note Patient Name: Sarina Lovett Patient Location: [id number]- 024* Daily Note: Nursing note for evening shift This note was completed by: Patricia Caceres RN [id number] report received and pt care assumed. Pt was admitted to [facility] on 03/24. Dx NSTEMI and HTN urgency and was placed on a NTG drip. PBNR >9000 and pt was plced on a heparin drip which is now off. Pt was taken to the [facility] today with Dr. Haddad and had PCI -RCA/SVG. Right radial site no bleeding/ozing at site. No numbness or tingling stated. Pulse palpable. 0000 pt resting/ VSS 0405 pt c/o 6/10 stabbing/crushing CP/ MD notified/ 12 lead EKG done/ orders received 0425 NTG drip started at 10mcg/min/ labs drawn and sent 0530 AM care complete/ pt states she feels so much better MD at bedside to follow up- orders received 0605 PO meds given/ ativan .25mg and Lasix iv Normal [facility] PLAN OF CAREon 03-27-2018 PLAN OF CARE HNO ID: [id number] Author: Ariela Martinez Service: Hospital Medicine Author Type: Physician Type: Plan of Care Filed: 03/28/2018 5:18 AM Note Text: Notified patient is complaining of SOB RR 30 Sating well 5L(increased from 2) No chest pain O/e crackles and wheezing +++Hx of smoking Hx of COPD flares as well, suboptimal Tx at home EKG with mild ST depressions - slightly worse in v3-v4 - discussed with Dr Browne( much appreciated) - this is 2/2 to distal embolization from the procedure, no acute intervention needed at this time CXR from morning with CHF Repeat CXR with slight worsening of perihilar congestion , RLL infiltrate> LLB, cardiomegaly, upper lob cephalization ABG with type 1 resp failure( hypoxemia) pao2 68 Without hypercapnia metabolic acidosis noted 2/2 to JULIETA-CKD Impression: dCHF + COPD flare Plan: - Lasix 80mg IV x 1- strict I/Os - duoneb - Methylpred - Augmentin (as per guidelines) , given no risk factors for Pseudomonas, and cannot use azithromycin, QTC 529 . HCAP treatment not indicated. If she spiked a fever, will Tx - maintain sat > 95%(pao2 low on ABG) - will discuss with RT --> venti mask -sodium bicarbonate injection x 1 Despite 80mg lasix given minimal UO, Given 120mg with 200cc within 1 hour Will continue to monitor - If UO poor - will need metolazone + lasix bolus + gtt, if this remains an issue will consult nephrology /MICU +/- CPAP of tachypnea persists Update: Improvement UO + RR and saturations on CPAP Will re dose at 6am Wean cpap off in the AM Appreciate excellent nursing care 30-45 minutes spent in total providing urgent cardio-respiratory care for this patient Ariela Bautista MD, MSc Associate staff , Department of Hospital Medicine Clinical [employer]uminum Pool 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 Clinically stable Continue present treatment k is elevated Will recheck, could be hemolysis Normal [facility] Protein mass conc HNO ID: [id number] Author: Mame Bowers Service: Hospital Medicine Author Type: Physician Type: Progress Notes Filed: 03/27/2018 1:51 PM Note Text: HOSPITAL MEDICINE [facility] PROGRESS NOTE NAME: Sarina Lovett SERVICE DATE: 03/27/2018 SERVICE TIME: 8:45 AM ASSESSMENT AND PLAN Sarina Lovett is a 73 year old female with PMH of CAD (CABG in 2005, PCI to RCA in 2000 and 2015), aortic stenosis (s/p replacement in [address] #[address] [employer] Bioprosthetic valve), HTN, HLD, DM who presented with chest pain and elevated troponin, concerning for NSTEMI. NSTEMI (non-ST elevated myocardial infarction) (HCC) POA: Yes Chest pain POA: Yes Coronary atherosclerosis POA: Yes Patient with significant CAD history presenting with chest pain and elevated troponin 0.025 -> 0.032 -> 0.038. EKG without significant changes from prior, dose have LVH and RBBB. Cath on 03/26 with 2 DAVID placed in SVG to RCA. Post-cath patient had further chest pain, restarted on nitro drip. - repeat echo pending - continue aspirin, plavix, pt allergic to statins, holding LOS as below - cardiology consulted, appreciate input - will discontinue nitro drip again - s/p lasix 60mg IV on 03/27, will stop IVF and continue to monitor ? Hypertensive emergency POA: Yes Essential hypertension, benign POA: Yes Patient presented with SBP>200 with chest pain and possible JULIETA. On coreg 12.5mg BID, lisinopril 20mg daily at home. Improved while on nitro, given 5mg IV hydralazine. - coreg 25mg BID - hydralazine 75mg TID - procardia 30mg BID added - consider resuming ACEi based on kidney function ? JULIETA on CKD3 Baseline Cr unclear, but definite underlying CKD as GFR has been <60 for past years. Possible JULIETA, will continue to monitor. Cr on admission 1.5, increased on 03/27 to 1.79. - did receive IV lasix on 03/27 as well as IVF - will discontinue lasix and IVF - monitor BMP - avoid nephrotoxic agents - nephrology following, appreciate input - check renal US - in process - protein/Cr ratio ordered ? Tobacco abuse POA: Yes 50 pack-year history, encourage cessation. ? Psychiatric disorder POA: Yes Patient with history of depression, significant social stressors. - continue zoloft 150mg daily, wellbutrin 150mg daily - behavioral health consulted, appreciate assistance ? T2DM On glimepiride 1mg BID at home, last A1c 9.3% in 08/2016 at [facility]. Repeat A1c on admission 6.0%. - SSI1 - holding home glimepiride due to JULIETA Hyperkalemia 5.6 on 03/27, holding ACEi in setting of JULIETA and did receive lasix 60mg IV on 03/27. - kayexalate 30mg once today - monitor BMP ? Hypomagnesemia 1.7 on admission. Continue to monitor. - replete PRN Anemia Chronic anemia, baseline Hgb 9-11 range. - check iron studies ? VTE Prophylaxis - DAPT with plavix and aspirin; IPCs Dispo - continue care in [facility] SUBJECTIVE INTERVAL HPI: Ms. Lovett feels well this morning. She was restarted on a nitro drip overnight for chest pain, but this has resolved this morning. She denies SOB, palpitations, but does feel like she would get short of breath if she tried to walk around. MEDICATIONS: Reviewed OBJECTIVE VITAL SIGNS (last 24hrs min/max): Temp Av.7 ?C (98.1 ?F) Min: 36.3 ?C (97.3 ?F) Max: 36.9 ?C (98.4 ?F) Pulse Av Min: 45 Max: 61 Cuff BP Min: 93/30 Max: 206/43 Pain Score: 2/10 PHYSICAL EXAM: General: Alert, no distress, cooperative Lungs: + faint crackles bilateral bases Cardiac: NL S1 and S2, + systolic murmur present Abdomen: Non-tender, BS normal, no organomegaly Extremities: No edema or skin discoloration Neuro: Grossly normal cognition, motor function DATA: Diagnostic tests reviewed for today's visit: Most recent labs Most recent EKG Most recent image Kinsey Dumas MD Family Medicine PGY2 March 27, 2018 I saw and evaluated the patient. Discussed with the resident and agree with resident's findings and plan as documented in the resident's note. Mame Bowers MD Staff, Hospital Medicine March 27, 2018 [facility] PT EDon 03-27-2018 PT ED HNO ID: [id number] Author: Renetta (Rn) DEBBIE Ball Service: Cardiac Rehab Author Type: Registered Nurse Type: Patient Education Filed: 03/27/2018 2:57 PM Note Text: CARDIAC REHABILITATION PATIENT EDUCATION PROGRESS NOTE Name: Sarina Lovett Date of Service: 03/27/2018 Time of Service: 2:53 PM ASSESSMENT: Risk Factors Identified: Diabetic: Insulin Dependent Hyperlipidemia Hypertension Smoker: # of packs per day: 1. Total Years of Smokin. Significant Medical History: PCI [id number], AVR/CABG 12 years ago RECOMMENDATIONS: Patient interested in Phase II Outpatient Cardiac Rehab: No DIAGNOSIS: Acute Myocardial Infarction/Acute Coronary Syndrome: non ST [place] AMI/ACS Teaching Points: -Basic Anatomy and Disease Process -Personal Modifiable Risk Factor Identification -Activity/Physical Exercise Recommendations -Nutrition/Diet Information -Prescribed Medication Reviewed -Smoking Advice Counseling -When patient should call provider -Outpatient Cardiac Rehabilitation Percutaneous Cardiac Intervention: DAVID PCI Teaching Points: -Basic Anatomy and Disease Process -Personal Modifiable Risk Factor Identification -Activity/Physical Exercise Recommendations -Nutrition/Diet Information -Prescribed Medication Reviewed -Smoking Advice Counseling -When patient should call provider -Outpatient Cardiac Rehabilitation READINESS TO LEARN: Cognitive Ability: Alert and Oriented Motivation to Learn: Interested Family Support: None - Unavailable/disintere sted Instruction Provided To: Patient Patient Learns Best By: Individual Instruction, Written Instruction - Hand-outs and Verbal Instruction Factors Affecting Learning: None Physical Limitations Affecting Learning: None LEARNING RESPONSE: Method Of Instruction: Individual instruction Patient/Family Response: Verbalizes understanding of: all recommendations Follow-up Plan: No further educational needs identified at this time. Instructional Aids Used: Anatomical Model/Drawing Cardiac Rehabilitation Brochure Educational Binder List of Health [facility] Cardiac Rehab Programs Outpatient Diet/Nutrition Class Invitation Signature: Renetta ball RN Pager: fuentes Date: March 27, 2018 Time: 2:53 PM [facility] Phosphoruson 03-27-2018 Phosphate mass conc 4.7 mg/dL High 2.5-4.5 [facility] Comment on above: Performed By: #### P TT, NTBNP, HSTNT, CBCDIF, PT, CKCKMB, CMP #### [place] [phone] Potassiumon 03-27-2018 Potassium molar conc 5.0 mmol/L Normal 3.5-5.0 [facility] Comment on above: Performed By: #### K 1 ####[place] [phone] Potassium molar conc 5.8 mmol/L High 3.5-5.0 [facility] Comment on above: Performed By: #### P TT, NTBNP, HSTNT, CBCDIF, PT, CKCKMB, CMP #### [place] [phone] Protein/Creatinine Ratioon 0 03-27-2018 Creatinine,Urine,Ran 33.9 mg/dL Normal 20-300 [facility] Comment on above: Performed By: #### P TT, NTBNP, HSTNT, CBCDIF, PT, CKCKMB, CMP #### [place] [id number] Protein mass conc (U) 6 mg/dL Normal 0-20 [facility] Comment on above: Performed By: #### P TT, NTBNP, HSTNT, CBCDIF, PT, CKCKMB, CMP #### [place] [id number] Protein/Creatinine Ratio 0.2 High <0.2 [facility] Comment on above: Performed By: #### P TT, NTBNP, HSTNT, CBCDIF, PT, CKCKMB, CMP #### [place] [phone] THERAPY NTon 03-27-2018 THERAPY NT HNO ID: [id number] Author: Silvana (Poultry Trimmer) LALO Black Service: Respiratory Therapy Author Type: Respiratory Therapist Type: Therapy (PT/OT/Speech/Resp) Filed: 03/27/2018 7:18 PM Note Text: ABG drawn from left radial, Laci test yes; pressure held, bleeding stopped. Normal [facility] Troponin Ton 03-27-2018 Troponin T.cardiac mass conc 2.160 ng/mL High 0.000-0.029 [facility] Comment on above: Result Comment: Call ed to and read back by: DEBBIE PRO [facility] 03/27/18 0525 ROBB Performed By: #### P TT, NTBNP, HSTNT, CBCDIF, PT, CKCKMB, CMP #### [facility] [address] [place] [address] XR CHEST 1V FRONTALon 2018 XR CHEST 1V FRONTAL * * *Final Report* * * DATE OF EXAM: Mar 27 2018 6:27PM FVX 5290 - XR CHEST 1V FRONTAL / PROCEDURE REASON: Acute respiratory illness * * * * Physician Interpretation * * * * EXAMINATION: CHEST RADIOGRAPH (SINGLE VIEW AP OR PA) CLINICAL HISTORY: Acute respiratory illness, MQ: XC1_5 Comparison: Earlier in the day RESULT: See impression IMPRESSION: Lines, tubes, and devices: None. Lungs and pleura: Worsening bilateral interstitial and airspace opacities, right greater than left. No significant pleural effusion. No pneumothorax. Cardiomediastinal silhouette: Stable cardiomediastinal silhouette. Armature Rewinder: PSCB Transcribe Date/Time: Mar 27 2018 6:50P Dictated by : JOHAN MUNOZ MD This examination was interpreted and the report reviewed and electronically signed by: JOHAN MUNOZ MD on Mar 27 2018 6:52PM EST [id number] Normal [facility] XR CHEST 1V FRONTAL * * *Final Report* * * DATE OF EXAM: Mar 27 2018 5:24AM FVX 5290 - XR CHEST 1V FRONTAL / PROCEDURE REASON: Acute respiratory illness * * * * Physician Interpretation * * * * EXAMINATION: CHEST RADIOGRAPH (SINGLE VIEW AP OR PA) CLINICAL HISTORY: Acute respiratory illness, MQ: XC1_5 Comparison: 03/25/2018 RESULT: Lines, tubes, and devices: None. Lungs and pleura: Mild infiltrate or subsegmental atelectasis right lung base. The remainder the lungs are clear. No pleural effusion or pneumothorax.. Pulmonary vasculature within normal limits. Cardiomediastinal silhouette: Mild cardiomegaly with median sternotomy wires. Other: . IMPRESSION: 1. Mild mild infiltrate and/or subsegmental atelectasis right lung base 2. Cardiac megaly Armature Rewinder: PSCB Transcribe Date/Time: Mar 27 2018 5:27A Dictated by : YADIRA FUNEZ MD This examination was interpreted and the report reviewed and electronically signed by: YADIRA FUNEZ MD on Mar 27 2018 5:37AM EST [id number] Normal [facility] Basic Metabolic Panlon 03-26 Anion gap molar conc 12 mmol/L Normal 9-18 [facility] Comment on above: Performed By: #### P TT, NTBNP, HSTNT, CBCDIF, PT, CKCKMB, CMP #### [place] [phone] Calcium mass conc 9.0 mg/dL Normal 8.5-10.5 [facility] Comment on above: Performed By: #### P TT, NTBNP, HSTNT, CBCDIF, PT, CKCKMB, CMP #### [place] [phone] Chloride molar conc 104 mmol/L Normal 98-110 [facility] Comment on above: Performed By: #### P TT, NTBNP, HSTNT, CBCDIF, PT, CKCKMB, CMP #### [place] [phone] CO2 molar conc 19 mmol/L Low 23-32 [facility] Comment on above: Performed By: #### P TT, NTBNP, HSTNT, CBCDIF, PT, CKCKMB, CMP #### [place] [phone] Creatinine mass conc 1.63 mg/dL High 0.70-1.40 [facility] Comment on above: Performed By: #### P TT, NTBNP, HSTNT, CBCDIF, PT, CKCKMB, CMP #### [place] [phone] eGFR- Amer. 38 Low >60 [facility] Comment on above: Performed By: #### P TT, NTBNP, HSTNT, CBCDIF, PT, CKCKMB, CMP #### [place] [phone] GFR/1.73 sq M predicted among non-blacks MDRD vol rate/area (S/P/Bld) 31 . Low >60 [facility] Comment on above: Performed By: #### P TT, NTBNP, HSTNT, CBCDIF, PT, CKCKMB, CMP #### [place] [phone] Glucose mass conc 113 mg/dL High 65-100 [facility] Comment on above: Performed By: #### P TT, NTBNP, HSTNT, CBCDIF, PT, CKCKMB, CMP #### [address] Potassium molar conc 4.6 mmol/L Normal 3.5-5.0 [facility] Comment on above: Performed By: #### P TT, NTBNP, HSTNT, CBCDIF, PT, CKCKMB, CMP #### [place] [phone] Sodium molar conc 135 mmol/L Normal 132-148 [facility] Comment on above: Performed By: #### P TT, NTBNP, HSTNT, CBCDIF, PT, CKCKMB, CMP #### [address] Urea nitrogen mass conc 32 mg/dL High 8-25 [facility] Comment on above: Performed By: #### P TT, NTBNP, HSTNT, CBCDIF, PT, CKCKMB, CMP #### [place] [id number] CBCon 03-26-2018 Erythrocyte distribution width Ratio (RBC) 13.5 % Normal 11.5-15.0 [facility] Comment on above: Performed By: #### P TT, NTBNP, HSTNT, CBCDIF, PT, CKCKMB, CMP #### [place] [address] Hematocrit Volume Fraction (Bld) 28.1 % Low 36.0-46.0 [facility] Comment on above: Performed By: #### P TT, NTBNP, HSTNT, CBCDIF, PT, CKCKMB, CMP #### [place] [address] Hemoglobin mass conc (Bld) 9.3 g/dL Low 11.5-15.5 [facility] Comment on above: Performed By: #### P TT, NTBNP, HSTNT, CBCDIF, PT, CKCKMB, CMP #### [place] [address] MCH Entitic mass (RBC) 28.9 pG Normal 26.0-34.0 [facility] Comment on above: Performed By: #### P TT, NTBNP, HSTNT, CBCDIF, PT, CKCKMB, CMP #### [place] [address] MCHC mass conc (RBC) 33.1 g/dL Normal 30.5-36.0 [facility] Comment on above: Performed By: #### P TT, NTBNP, HSTNT, CBCDIF, PT, CKCKMB, CMP #### [place] [address] MCV Entitic volume (RBC) 87.3 fL Normal 80.0-100.0 [facility] Comment on above: Performed By: #### P TT, NTBNP, HSTNT, CBCDIF, PT, CKCKMB, CMP #### [place] [address] Platelet mean volume Entitic volume (Bld) 10.1 fL Normal 9.0-12.7 [facility] Comment on above: Performed By: #### P TT, NTBNP, HSTNT, CBCDIF, PT, CKCKMB, CMP #### [place] [phone] Platelets #/vol (Bld) 145 10*3/uL Low 150-400 [facility] Comment on above: Performed By: #### P TT, NTBNP, HSTNT, CBCDIF, PT, CKCKMB, CMP #### [place] [phone] RBC #/vol (Bld) 3.22 10*6/uL Low 3.90-5.20 [facility] Comment on above: Performed By: #### P TT, NTBNP, HSTNT, CBCDIF, PT, CKCKMB, CMP #### [place] [phone] WBC #/vol (Bld) 4.28 10*3/uL Normal 3.70-11.00 [facility] Comment on above: Performed By: #### P TT, NTBNP, HSTNT, CBCDIF, PT, CKCKMB, CMP #### [place] [phone] CONSULTon 03-26-2018 CONSULT HNO ID: [id number] Author: Marito Real Service: Hypertension AND Nephrology Author Type: Physician Type: Consults Filed: 04/18/2018 3:55 PM Note Text: [facility] - Consultation SARINA LOVETT : 1945 AGE: 73 SEX: F CSN: [id number] [facility]: [facility]: [id number] ATTENDING PHYSICIAN: Larisa Dougherty M.D. DATE OF CONSULTATION: 03/26/2018 CONSULTING PHYSICIAN: Marito Real M.D. REASON FOR CONSULTATION: Elevated creatinine and severe hypertension. HISTORY OF PRESENT ILLNESS: A 73-year-old female history of CAD status post CABG x3 and aortic valve replacement and status post renal stents, hypertension, hyperlipidemia, diabetes mellitus, now presents with acute kidney injury. She came to the hospital for midsternal chest pain and pressure which was severe. She is also having dizziness and palpitations. She has been found to have a non-ST- elevation WI. She is going to be having a cardiac catheterization tomorrow. We are consulted as her blood pressure is difficult to control. She normally takes lisinopril and Coreg as an outpatient according to her Care Everywhere chart, she also takes amlodipine as an outpatient and Lasix as needed. Here in the hospital her systolic blood pressures have also been greater than 200. Her most recent blood pressure this morning is 172/83. She does not recall any history of kidney disease and has never seen a funeral home director before. Her creatinine is 1.6 today, and this was 1.5 on admission. Her last available outpatient creatinine was 1.1 in January of 2017. She has never had an albumin to creatinine ratio or protein to creatinine ratio before. She has no dysuria, hematuria, or foamy urine. Her chest pain has improved. She has no shortness of breath or abdominal pain. She has lower extremity edema intermittently, but she does not have it at this time. PAST MEDICAL AND SURGICAL HISTORY: CAD status post CABG and cardiac stents, aortic stenosis status post replacement in 2005, hypertension, hyperlipidemia, diabetes mellitus, tobacco abuse, tubal ligation. OUTPATIENT MEDICATIONS: Wellbutrin, ferrous sulfate 325 mg b.i.d., vitamin D 95856 units weekly, Plavix 75 mg daily, Coreg 12.5 mg b.i.d., Amaryl, baby aspirin, lisinopril 20 mg daily, Zoloft, Prilosec. ALLERGIES: Statin, sulfa, tape. FAMILY HISTORY: Her sister had kidney disease but she cannot specify the severity. She was not on dialysis. Her sister did have surgery on her kidney. Heart disease does run in her family. SOCIAL HISTORY: She is retired. 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 She smoked for 50 years and then quit for 3 years. She started smoking again after her sister . She is planning to quit when she leaves the hospital. Lives with her . REVIEW OF SYSTEMS: A 10-point review of systems negative except as specified in the HPI. PHYSICAL EXAMINATION: Vital Signs: Temperature 36.9, pulse 58, respiratory rate 20, blood pressure 172/83, saturating 98% on room air. General: No acute distress. Head: Normocephalic, atraumatic. ENT: Moist mucous membranes. Eyes: Sclerae anicteric. Neck: Supple. Cardiac: Regular rate and rhythm. No carotid bruits. No murmurs heard. She has 2+ dorsalis pedis pulses. Respiratory: Clear to auscultation bilaterally. Abdomen: Soft, nontender. Extremities: No lower extremity edema. : No CVA tenderness. Neuro: Alert and oriented x3. Skin: No rashes noted. LABORATORY DATA: White count 4.2, hemoglobin 9.3, platelets 145,000. Sodium 135, potassium 4.6, chloride 104, CO2 19, BUN 32, creatinine 1.63, glucose 113, calcium 9.0, magnesium 1.7. INR 1.0. Albumin 4.6, bilirubin 0.2. IMAGING: Her last echo was in 2016 that showed an EF of 48%. There is stage I diastolic dysfunction. There is a prosthetic aortic valve with mild aortic valve stenosis. Chest x-ray shows no edema or effusions. ASSESSMENT AND PLAN: 1. Acute kidney injury on chronic kidney disease stage 3. We will check a renal ultrasound. We will check urine spot protein to creatinine ratio. Her chronic kidney disease could be due to diabetic nephropathy. We will avoid LOS inhibitors and diuretics until her cardiac catheterization is complete. Her estimated GFR is still greater than 30, so she is at low risk for contrast nephropathy. Please limit her contrast dose with her catheterization. Check daily labs. 2. Hypertension. Start Procardia XL 30 mg b.i.d., hold for systolic blood pressure less than 140, stop Norvasc. We can increase this to 60 mg b.i.d. if her blood pressure remains elevated. Lisinopril can be restarted after catheterization is completed. 3. Hyperkalemia. Her lisinopril is on hold presently. Her K was 5.8 upon admission. 4. Anemia. Check iron stores. She is on iron supplements as an outpatient. 5. Metabolic acidosis. We will add sodium bicarbonate tablets if this persists. 6. Tobacco abuse. She plans to quit smoking after discharge. Thank you for allowing me to participate in the care of your patient. Please contact me with any further questions or concerns. Marito Real M.D. Nephrology SB:[id number] /[id number] [facility] CONSULT HNO ID: [id number] Author: Marito Real Service: Hypertension AND Nephrology Author Type: Physician Type: Consults Filed: 03/26/2018 10:17 AM Note Text: Dictation number: [id number] JULIETA on CKD 3 Check spot protein/Cr ratio Check renal US CKD could be due to DM nephropathy Will avoid ACEI and diuretics until cath is completed Her eGFR is >30 so she is at low risk for contrast nephropathy Daily labs HTN Start Procardia XL 30mg bid, hold for SBP<140. Stop Norvasc. Increase to 60mg bid if BP remains elevated Lisinopril can be restarted after cath completed Hyperkalemia Hold Lisinopril presently Anemia Check Fe stores Met Acidosis Will add NaHCO3 if this persists Tobacco Use She plans to quit smoking after d/c Normal [facility] Hemoglobin A1con 03-26-2018 Hemoglobin A1c/Hemoglobin.total mass fraction (Bld) 6.0 % High 4.3-5.6 [facility] Comment on above: Result Comment: Amer ican Diabetes Association guidelines indicate that patients with HgbA1c in the range 5.7-6.4% are at increased risk for development of diabetes, and intervention by lifestyle modification may be beneficial. HgbA1c greater or equal to 6.5% is considered diagnostic of diabetes. Performed By: #### P TT, NTBNP, HSTNT, CBCDIF, PT, CKCKMB, CMP #### [facility] [address] [place] [phone] Hemoglobin A1c/Hemoglobin.total mass fraction (Bld) 126 mg/dL Normal [facility] Comment on above: Result Comment: eAG: (Estimated average glucose) is a calculated value from HgbA1c and is customer retention representative of the average blood glucose level in the last 2-3 month period. Performed By: #### P TT, NTBNP, HSTNT, CBCDIF, PT, CKCKMB, CMP #### [place] [id number] [place] [phone] Lipid Panel, [place] 019 Cholesterol in HDL mass conc 33 mg/dL Low >39 [facility] Comment on above: Result Comment: 40-5 9 mg/dL, Acceptable >59 mg/dL, High: Negative risk factor for coronary heart disease <40 mg/dL, Low: Positive risk factor for coronary heart disease Performed By: #### P TT, NTBNP, HSTNT, CBCDIF, PT, CKCKMB, CMP #### [place] [id number] Cholesterol in LDL mass conc 221 mg/dL High <100 [facility] Comment on above: Result Comment: <100 mg/dL, Optimal 100-129 mg/dL, Near optimal/above optimal 130-159 mg/dL, Borderline high 160-189 mg/dL, High >189 mg/dL, Very high Secondary prevention optimal LDL Cholesterol levels are recommended to be < 70 mg/dL Performed By: #### P TT, NTBNP, HSTNT, CBCDIF, PT, CKCKMB, CMP #### [place] [phone] Cholesterol mass conc 314 mg/dL High <200 [facility] Comment on above: Result Comment: <200 mg/dL, Desirable 200-239 mg/dL, Borderline high >239 mg/dL, High Performed By: #### P TT, NTBNP, HSTNT, CBCDIF, PT, CKCKMB, CMP #### [phone] LDL:HDL Ratio 6.70 High <2.54 [facility] Comment on above: Result Comment: Refe rence: 1. National Cholesterol Education Program ATP III Guideline At-A-Glance Quick Desk Reference: National Heart, Lung, and Blood [place]. National Institutes of Health. 2001: NIH Publication No. 01-3305. 2. An International Atherosclerosis Society position paper: global recommendations for the management of dyslipidemia: executive summary, Atherosclerosis. 2014: 232(2):410-413. Performed By: #### P TT, NTBNP, HSTNT, CBCDIF, PT, CKCKMB, CMP #### [phone] Non HDL Cholesterol 281 mg/dL High <130 [facility] Comment on above: Result Comment: <130 mg/dL, Optimal 130-159 mg/dL, Near optimal/above optimal 160-189 mg/dL, Borderline high 190-219 mg/dL, High >219 mg/dL, Very high Secondary prevention optimal non HDL Cholesterol levels are recommended to be < 100 mg/dL Performed By: #### P TT, NTBNP, HSTNT, CBCDIF, PT, CKCKMB, CMP #### [place] [address] TC:HDL Ratio 9.52 High <5.10 [facility] Comment on above: Performed By: #### P TT, NTBNP, HSTNT, CBCDIF, PT, CKCKMB, CMP #### [place] [address] Triglyceride mass conc 301 mg/dL High <150 [facility] Comment on above: Result Comment: <150 mg/dL, Normal 150-199 mg/dL, Borderline high 200-499 mg/dL, High >499 mg/dL, Very high Performed By: #### P TT, NTBNP, HSTNT, CBCDIF, PT, CKCKMB, CMP #### [place] [address] VLDL Cholesterol 60 mg/dL High <30 [facility] Comment on above: Performed By: #### P TT, NTBNP, HSTNT, CBCDIF, PT, CKCKMB, CMP #### [place] [address] NURSING PROGon 03-26-2018 Protein mass conc HNO ID: [id number] Author: Shelley (Rn) DEBBIE Aponte Service: (none) Author Type: Registered Nurse Type: Nursing Progress Note Filed: 03/26/2018 10:24 PM Note Text: Nursing Progress Note Patient Name: Sarina Lovett Patient Location: [id number]- 024* Daily Note: 1899: Report received from previous shift RN 1999: Assessment complete, see flow sheets for details. Pt AANDO x3, denies pain, VSS. 2229: Report given to oncoming RN This note was completed by: Shelley Aponte RN [facility] Protein mass conc HNO ID: [id number] Author: Geeta (Rn) DEBBIE Woods Service: (none) Author Type: Registered Nurse Type: Nursing Progress Note Filed: 03/26/2018 7:46 PM Note Text: Nursing Progress Note Patient Name: Sarina Lovett Patient Location: [id number]/[facility] 024* Daily Note: 0730 Bedside report received from previous nurse. 0800 Assessment complete as noted. Pt AANDO and denies pain and sob. 0940 Dr. Dougherty at bedside and updated. 1030 Dr. Real at bedside. 1057 Dr. Haddad on phone and wants to cath patient today; make patient NPO, stop heparin. Dr. Dougherty notified and aware; please start IVF now. 1200 Reassessment complete as noted. 1215 Pt off unit to rags laborer. 1424 Pt back to [place] unit. 1430 pt diaphoretic and c/o 3/[address] Tejada called to bedside. Site check complete; patient c/o numbness and tingling in right hand fingers and thumb. 1445 Site check complete; patient c/o numbness and tingling in right hand fingers and thumb. 1450 Dr. Tejada at bedside. 1453 Pt continues to complain of crushing chest pain, 5/10. Nitroglycerin sublingual given per APR per Dr. Tejada. 1455 Pt c/o 8/10. Dr. Haddad at bedside. 1500 Site check complete; patient c/o numbness and tingling in right hand fingers and thumb. 1508 Compazine PIV given per APR 1511 500cc bolus started per APR. 1515 Site check complete; patient c/o numbness and tingling in right hand fingers and thumb. 1518 Pt c/o 7/10 crushing chest pain; morphine PIV given per APR. 1524 Pt says pain is better 05/07. 1530 Site check complete; patient c/o numbness and tingling in right hand fingers and thumb. 1534 Continuous NS restarted at 75cc/hour. 1545 Site check complete; patient c/o tingling in right hand fingers and thumb. 1600 Reassessment complete; patient comfortable. Site check complete; patient c/o numbness and tingling in right hand fingers and thumb. 1615 Air removed from TR band per orders. Site check complete; patient c/o numbness and tingling in right thumb. 1630 Site checks continue and air removed per protocol. Site check complete; patient c/o numbness and tingling in right thumb. 1645 Site checks continue and air removed per protocol. 1700 Site checks continue and air removed per protocol. 1715 Site checks continue and air removed per protocol. 1730 Site checks continue and air removed per protocol. 1745 Band removed on right radial. No bleeding noted. Dressing placed on site. 1800 Slight oozing noted at sight; radial pulse intact, hand warm, and pt denies numbness and tingling. 1815 Slight oozing noted at sight; radial pulse intact, hand warm, and pt denies numbness and tingling. 1830 Slight oozing noted at sight; radial pulse intact, hand warm, and pt denies numbness and tingling. 1845 Slight oozing noted at sight; radial pulse intact, hand warm, and pt denies numbness and tingling. 1900 Slight oozing noted at sight; radial pulse intact, hand warm, and pt denies numbness and tingling. 1900 US at bedside. 1945 Bedside report given to oncoming nurse. This note was completed by: Geeta Woods RN [facility] OPERATIVE NOon 03-26-2018 OPERATIVE NO HNO ID: [id number] Author: Joy Browne Service: Cardiovascular Disease Author Type: Physician Type: Operative Report Filed: 03/26/2018 2:21 PM Note Text: LIVING SUPERVISOR PROCEDURE REPORT SERVICE DATE: 03/26/2018 SERVICE TIME: CONCRETE BLOCK MASON: Joy Browne MD ATTENDING: Larisa Dougherty PRIMARY CARE PHYSICIAN: Sacha Ford MD REFERRING PROVIDER: DJIBOUTIAN STUDY OF HEALTH and AGING SCALE:2=Well CARDIOVASCULAR INSTABILITY:No PRE-PROCEDURE DIAGNOSIS: 1. Acute Coronary Syndrome, more than 24 hours 2. Angina, Unstable POST PROCEDURE DIAGNOSIS: 1. [place] Coronary Artery Disease in the LAD (EQUIPMENT LEAD), RCA (EQUIPMENT LEAD) and LCX (EQUIPMENT LEAD) 2. Successful PCI of SVG to RCA PROCEDURE: 1. Coronary angiogram 2. SVG Angiogram 3. Ultrasound guided cannulation of vessel 4. Resolute (Drug Eluting Stent) Placement in Mid and Distal SVG to RCA MODERATE SEDATION: Moderate Sedation provided by Cardiology Nursing Staff. Moderate sedation consisting of continuous ECG, pulse oximetry and cardiopulmonary monitoring was performed by the Cardiology Nurse, overseen by supervising physician, for an intra-service time of 1 hr. 0 min. Sedative Medications: Drug: Versed Dose: 2 mg Route: IV Drug: Fentanyl Dose: 50 mcg Route: IV PRIORITY AT TIME OF PROCEDURE: Elective SITE OF ENTRY: Radial:Right Radial CONTRAST: Low Osmolar Omnipaqe (iohexol) Injection 350mgI/ml: 100 mL LEFT HEART CATHETERIZATION AND FINDINGS: The patient was taken to the cardiac rags laborer where the entry site was prepped and draped in a sterile manner. Under local anesthesic with 2% Lidocaine, the vessel was cannulated with micropuncture technique using an arterial needle and Ultrasound was used to visualize and guide the entry into the vessal and a 5F sheath was introduced. Selective injections were made in the left and right coronary arteries. Various right, left and oblique views were obtained. ADDITIONAL PROCEDURES: The SVG was cannulated and angiography was completed to visualize the target vessel. CORONARY ANGIOGRAPHY: LEFT MAIN TRUNK: No Stenosis LEFT ANTERIOR DESCENDING: Chronic Total Occlusion Location: Distal , al to lad is atrophic LEFT CIRCUMFLEX: Chronic Total Occlusion Location: Distal RIGHT CORONARY: Chronic Total Occlusion Location: Proximal SVG #1 to the RCA: 99% Stenosis Location: Mid 99% Stenosis Location: Distal , the stent to pl is patent. Vessel distal is occluded SVG #2 to the LCX: Chronic Total Occlusion Location: Proximal PERCUTANEOUS CORONARY INTERVENTION: The catheterization angiogram was reviewed affirming the patient was indicated for PCI. Heparin was given for anticoagulation. A guiding catheter was advanced under fluoroscopy and the vessel was engaged. Using standard protocol, cardiac stent(s) were placed in the following vessel(s). SVG to the RCA Lesion Type: Class C Guiding Catheter(s): Amplatz Right 2 Pre Dilatation Balloon Size: None Pre TRAVIS Blood Flow: 3 Mid Stent Placed: Type: Resolute (Drug Eluting Stent) Size: 4.5 mm Length: 16 mm Post Dilatation Balloon Size: 4.0 mm X 15 mm Distal Stent Placed: Type: Resolute (Drug Eluting Stent) Size: 4.5 mm Length: 28 mm Post Dilatation Balloon Size: 4.0 mm X 12 mm Post TRAVIS Blood Flow: 3 Result: Successful. Stenosis reduced to normal lumen. The sheath was removed and hemostatsis was established using manual pressure using wrist band. There was no bleeding at the end of the procedure. The pt was returned to the recovery room in a stable condition. ESTIMATED BLOOD LOSS: Less Than Minimal Unless Noted Here. COMPLICATIONS: None SPECIMENS: No specimens obtained unless noted here. CONDITION: Stable RECOMMENDATIONS: Follow protocol of post-op orders. Dual Antiplatelet Therapy (DAPT) for DAVID Stent halfway. SIGNATURE: Joy Browen MD PATIENT NAME: Sarina Lovett DATE: March 26, 2018 TIME: 2:15 PM Normal [facility] PLAN OF CAREon 03-26-2018 PLAN OF CARE HNO ID: [id number] Author: Ariela Martinez Service: Hospital Medicine Author Type: Physician Type: Plan of Care Filed: 03/27/2018 5:55 AM Note Text: 6pm No more chest pain/ nausea . Diaphoresis Feels fine Vitals stable EKG done at 5pm post cath not significantly changed, aside from t wave inversion resolution in v5-v6 Will continue with current cardiac medications Update: 421am Notified that patient is having chest pain Vitals stable, tho sating 88% on RA Reports substernal, crushing radiating to L arm 4/10, worse lying flat, and with inspiration much less in severity in comparison to pre cath and immediately post cath highlighted above Repeat EKG without any new changes Appears to be anxious on exam Impression: Cardiac( vasospasm?residual ischemia? - unlikely) Non cardiac( anxiety, PE?) Plan: - NTG gtt trial -ativan - repeat one more EKG in 1 hour to ensure no dynamic changes - if cardiac testing unrevealing, may consider V/Q scan if persistent given pleuritic nature - ativan 0.25mh x 1 for anxiety -CXR given increased o2 req from RA--> 2L - cardiac enzymes elevated - discussed with intervention stone layer - this is related to intervention - no concern for reinfarction Update: CXR with worsening pulmonary congestion Plan: - lasix 60mg given JULIETA - given CXR findings + increased o2 requirements this will also help reduced K level -Incentive spirometry for atelectasis Appreciate excellent nursing care Ariela Bautista MD, MSc Associate staff , Department of Hospital Medicine Clinical Aluminum Pool Installeroil spraying machine operator [facility] P:[id number] [phone] 5PM-8AM: Please contact me directly for questions related to patient care [facility] PLAN OF CARE HNO ID: [id number] Author: Larisa Dougherty Service: Hospital Medicine Author Type: Physician Type: Plan of Care Filed: 03/26/2018 5:09 PM Note Text: Got cardene during cath, BP dropped to 110 when back in [facility]/pale/nauseated Started NS bolus/infusion and she is much better BP meds reduced Larisa Dougherty MD [facility] PROGRESSon 03-26-2018 Protein mass conc HNO ID: [id number] Author: Larisa Dougherty Service: Hospital Medicine Author Type: Physician Type: Progress Notes Filed: 03/26/2018 11:06 AM Note Text: DEPARTMENT OF HOSPITAL MEDICINE PROGRESS NOTE Name: Sarina Lovett SERVICE DATE: 03/26/2018 Hospital Medicine/Primary Attending: Larisa Dougherty MD ASSESSMENT AND PLAN NSTEMI - cath today - plavix, ASA, BB - allergy to statins - hep gtt HTN - BP going up after ntg gtt stopped - coreg 25 BID, hydralazine increase from 25 to 75 TID - add procardia 30 BID, stop norvasc - LOS on hold - can resume after cath if creat stable Hyperlipidemia - LDL 220, chol 314 - allergy to statins (muscle pain severe) - tried many, also tried zetia, niacin etc CKD3 - LOS on hold, will get iv dye with cath - iv fluids before cath - nephro on board DM2 - amaryl on hold - check Hb A1c Depression - c/w meds Smoker - encouraged to quit SUBJECTIVE INTERVAL HPI: Feels fine, no CP or SOB. MEDICATIONS: Reviewed OBJECTIVE PHYSICAL EXAM: BP 169/33 Pulse 52 Temp (Src) 98.4 (Oral) Resp 16 Ht 5' 7 (1.70m) Wt 171 lb 8.3 oz (77.8kg) SpO2 97% BMI 26.86 kg/(m2). General - no distress, alert and oriented x 3 Lungs - clear to auscultation b/l CVS- RRR, normal heart sounds, no M/R/G Abd- soft, nontender, BS present MS - no joint swelling/tenderness, good ROM Ext - no edema DATA: Diagnostic tests reviewed for today's visit: Most recent labs Most recent imaging VTE Prophylaxis: Patient is already anti-coagulated. Disposition: Home Plan of care discussed with: Patient and RN SIGNATURE: Larisa Dougherty MD [facility] PTT,Anticoag Therapyon 03-26 aPTT Coag time (Bld) 53.5 s High 23.0-32.4 [facility] Comment on above: Result Comment: Unfr actionated Heparin Therapeutic Ranges: Standard Heparin Nomogram: 53 to 78 seconds (anti-Xa level of 0.3 to 0.7 U/ml) Low Dose/ACS Nomogram: 49 to 67 seconds (anti-Xa level of 0.2 to 0.5 U/ml) Stroke Treatment Nomogram: 49 to 67 seconds (anti-Xa level of 0.2 to 0.5 U/ml) Note: The APTT therapeutic range has been determined for the current lot of laboratory APTT reagent in use throughout the [facility]. Performed By: #### P TT, NTBNP, HSTNT, CBCDIF, PT, CKCKMB, CMP #### [place] [id number] [place] [address] Type and Screenon 03-26-2018 ABO/RH(D) Positive [facility] Comment on above: Performed By: #### P TT, NTBNP, HSTNT, CBCDIF, PT, CKCKMB, CMP #### [place] [address] US KIDNEY/BLADDERon 03-26-19 19 US KIDNEY/BLADDER * * *Final Report* * * DATE OF EXAM: Mar 26 2018 7:28PM [facility] 1055 - US KIDNEY/BLADDER / PROCEDURE REASON: Renal failure, acute (kidney injury) * * * * Physician Interpretation * * * * EXAMINATION: RENAL ULTRASOUND CLINICAL HISTORY: Renal failure, acute (kidney injury) TECHNIQUE: Sonography of the kidneys and urinary bladder was performed. Images were obtained and stored in a permanent archive. MQ: UR_1 COMPARISON: Left upper quadrant ultrasound on July 13, 2013 RESULT: Right Kidney: -Renal length: 11.3 cm -Parenchyma: Parenchyma echogenicity is increased. Focal areas of parenchymal thinning are present. -Collecting system: No hydronephrosis. -Calculus: No echogenic, shadowing calculus. -Lesion: None. Left Kidney: -Renal length: 8.7 cm -Parenchyma: Parenchyma echogenicity is increased. Focal areas of parenchymal thinning are present. -Collecting system: No hydronephrosis. -Calculus: No echogenic, shadowing calculus. -Lesion: None. Bladder: The visualized urinary bladder shows no significant abnormality. The spleen measures 12.5 x 10.4 x 13.3 cm in size. 5 x 4.9 x 5.5 cm hypoechoic mass at the inferior medial spleen. 2.3 cm hypoechoic mass in the medial spleen. 1.3 cm and 1.5 cm cyst lesion in the spleen. IMPRESSION: Increase echogenicity of the renal cortex, suggestive of medical renal disease. Segmental cortical atrophy bilaterally. No hydronephrosis or other obvious abnormality in the visualized kidneys. Multiple splenic masses and cysts, which represents interval change from prior ultrasound study. Further evaluation with CT or MRI is recommended. COMMUNICATION: Communicated with: Dr. Real on 03/28/2018 at 1600 hours. Armature Rewinder: PSCB Transcribe Date/Time: Mar 28 2018 3:45P Dictated by : ELEONORA HIGGINS MD This examination was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 11.3 oz) 03/24/18 1845 190/65 - - 70 19 97 % - - 03/24/18 1830 (!) 203/74 - - 76 20 97 % - - 03/24/18 181 (!) 216/72 - - 81 24 98 % - - 03/24/18 1800 189/57 - - 71 17 98 % - - 03/24/18 1730 187/71 - - 71 20 98 % - - 03/24/18 1712 (!) 216/81 36.6 ?C (97.8 ?F) Oral 80 24 95 % 170.2 cm (5' 7 ) 81.6 kg (180 lb) Body mass index is 26.73 kg/m?. BP 161/54 Pulse (!) 56 Temp 36.7 ?C (98.1 ?F) (Oral) Resp 18 Ht 170.2 cm (5' 7 ) Wt 77.4 kg (170 lb 10.2 oz) SpO2 98% BMI 26.73 kg/m? Physical Exam: General appearance: Overweight, well appearing, alert and in no acute distress Skin: warm and dry Head: normal Eyes: Anicteric sclera. Extraocular movements are intact. Neck: Supple, mild JVD no bruits Lungs: no wheeze or rales Heart: RRR without murmur, gallop, or rubs. No ectopy Abdomen: soft Extremities: no edema Peripheral pulses: 2+radial Neuro: Oriented X 3 Mood and Affect: appropriate and cooperative Labs: CBC, Coags, BMP, Mg, Phos Recent Labs 03/25/18 0936 03/25/18 0616 03/25/18 0615 03/24/18 2355 03/24/18205003/24/18 1735 WBC -- -- 6.46 -- -- 8.85 HB -- -- 9.9* -- -- 11.8 HCT -- -- 29.8* -- -- 35.8* PLT -- -- 157 -- -- 210 INR -- -- -- -- -- 1.0 APTT -- 54.3* -- 40.5* -- 26.0 NA 135 -- -- -- -- 137 K 5.0 -- -- -- -- 5.8* CHLOR 101 -- -- -- -- 101 CO2 18* -- -- -- -- 22* BUN 30* -- -- -- -- 34* CREAT 1.42* -- -- -- -- 1.50* GLUC 125* -- -- -- -- 243* CA 8.7 -- -- -- -- 9.8 MG -- -- 1.7 -- 1.7 -- Liver Function, Amylase, AND Lipase Recent Labs 03/24/18 1735 TPROT 8.0 ALB 4.6 ALT 7 AST 10 ALKPHOS 113 TBILI 0.2 Cardiac Enzymes Recent Labs 03/25/18 0316 03/24/18 2355 03/24/181 03/24/18 1735 CK 31 30 -- 29* CKMB 3.1 2.8 -- 2.4 TROPT 0.038* 0.032* 0.025 -- ABGs Lab Results Component Value Date PROBNP 9,108 (H) 03/24/2018 ECG: Sinus rhythm, LAE, LAD, RBBB, IVCD, this is unchanged from 2016 ekg Imaging: CXR: bilat basal atelectasis Assessment/Plan: Chest pain -climbing troponin NSTEMI -ekg without ischemic changes -echo completed, needs read -will plan for heart cath on Tuesday. She is currently chest pain free. -on plavix, coreg, asa (home lisinopril held due to elevated creatinine) HTN -on coreg 25mg bid -add norvasc 5 mg, can increase as needed -lisinopril held for CKD Will discuss with Dr. Browne I have reviewed the documentation obtained and documented by the Nurse Practitioner and have reviewed and updated the problem list as appropriate. I have personally performed a face to face assessment of the patient and have personally participated in the olivera components. I have discussed the case and management of the patient's care. Man Browne MD Procedure risks, and complications explained to patient/family and he/she agreeable. Will Proceed. Thank you for allowing us to participate in this patient's care. SIGNATURE: Deanna Yoo APRN.INFORMATION DEVELOPER cardiology DATE: March 25, 2018 TIME: 10:21 AM [facility] Magnesiumon 03-25-2018 Magnesium mass conc 1.7 mg/dL Normal 1.7-2.6 [facility] Comment on above: Performed By: #### P TT, NTBNP, HSTNT, CBCDIF, PT, CKCKMB, CMP #### [facility] [address] [place] [address] NURSING PROGon 03-25-2018 Protein mass conc HNO ID: [id number] Author: Shira Payton) DEBBIE Carrillo Service: Nursing Author Type: Registered Nurse Type: Nursing Progress Note Filed: 03/25/2018 6:11 PM Note Text: Nursing Progress Note Patient Name: Sarina Lovett Patient Location: [place] [address]/[place] [address]* Daily Note: 0700 Report received from off-going RN. Patient awake, sitting on edge of bed, VSS. Denies any current chest pain. 0800 Dr. Gifford at bedside to assess patient; discussed continued HTN with LIP. No new orders received. 0815 Initial assessment completed as charted; see flowsheet for details. [address] Dougherty regarding patient's HR 50s, BP 170s/30s in BORIS, 170s/50s in CHEIKH. Concern with unclear BP parameters and medications due. New orders anticipated. Ok to give ordered coreg. This note was completed by: Shira Carrillo RN [facility] PROGRESSon 03-25-2018 Protein mass conc HNO ID: [id number] Author: Kinsey Dumas MD Service: Hospital Medicine Author Type: Resident Type: Progress Notes Filed: 03/25/2018 10:55 AM Note Text: Attestation signed by Larisa Dougherty at 03/25/2018 11:30 AM (Updated) Pt seen and examined with resident, discussed plan of care with resident, agree with note. NSTEMI on hep gtt and ntg gtt HTN emergency - resume home coreg, add norvasc, hold LOS due to JULIETA JULIETA - gentle hydration DM2 on oral meds - hold amaryl due to julieta, give SSI S/p AVR bio CC time 35 min Larisa Dougherty MD HOSPITAL MEDICINE [facility] PROGRESS NOTE NAME: Sarina Lovett SERVICE DATE: 03/25/2018 SERVICE TIME: 10:55 AM ASSESSMENT AND PLAN Sarina Lovett is a 73 year old female with PMH of CAD (CABG in 2005, PCI to RCA in 2000 and 2015), aortic stenosis (s/p replacement in 2005 with #[address] [employer] Bioprosthetic valve), HTN, HLD, DM who presented with chest pain and elevated troponin, concerning for NSTEMI. NSTEMI (non-ST elevated myocardial infarction) (HCC) POA: Yes Chest pain POA: Yes Coronary atherosclerosis POA: Yes Patient with significant CAD history presenting with chest pain and elevated troponin 0.025 -> 0.032 -> 0.038. EKG without significant changes from prior, dose have LVH and RBBB. - on nitro drip, heparin drip - repeat echo ordered - continue aspirin, plavix, pt allergic to statins, holding LOS as below - cardiology consulted, appreciate input - NPO until cardiology sees patient Hypertensive emergency POA: Yes Essential hypertension, benign POA: Yes Patient presented with SBP>200 with chest pain and possible JULIETA. On coreg 12.5mg BID, lisinopril 20mg daily at home. Improving while on nitro, given 5mg IV hydralazine. - continue nitro drip - coreg 25mg BID - consider resuming ACEi based on kidney function - PRN hydralazine for SBP>180 ?JULIETA on CKD3 Baseline Cr unclear, but definite underlying CKD as GFR has been <60 for past years. Possible JULIETA, will continue to monitor. Cr on admission 1.5 - monitor BMP - avoid nephrotoxic agents Tobacco abuse POA: Yes 50 pack-year history, encourage cessation. Psychiatric disorder POA: Yes Patient with history of depression, significant social stressors. - continue zoloft 150mg daily, wellbutrin 150mg daily - behavioral health consulted, appreciate assistance T2DM On glimepiride 1mg BID at home, last A1c 9.3% in 08/2016 at [facility]. - SSI1 - recheck A1c Hypomagnesemia 1.7 on admission. Continue to monitor. - replete PRN VTE Prophylaxis - on heparin drip Dispo - continue care in [facility] SUBJECTIVE INTERVAL HPI: Ms. Lovett feels better this morning. She does not have chest pain, headache, dizziness, SOB, palpitations. She is anxious to go home. MEDICATIONS: Reviewed OBJECTIVE VITAL SIGNS (last 24hrs min/max): Temp Av.7 ?C (98.1 ?F) Min: 36.6 ?C (97.8 ?F) Max: 36.9 ?C (98.4 ?F) Pulse Av.1 Min: 58 Max: 84 Cuff BP Min: 139/53 Max: 260/70 Pain Score: 0/10 PHYSICAL EXAM: General: Alert, no distress, cooperative Lungs: Clear to auscultation Cardiac: NL S1 and S2 + holosystolic murmur Abdomen: Non-tender, BS normal Extremities: No edema or skin discoloration Neuro: Grossly normal cognition, motor function DATA: Diagnostic tests reviewed for today's visit: Most recent labs Most recent EKG Most recent image Kinsey Dumas MD Family Medicine PGY2 March 25, 2018 Normal [facility] PTT,Anticoag Therapyon 03-25 aPTT Coag time (Bld) 53.2 s High 23.0-32.4 [facility] Comment on above: Result Comment: Unfr actionated Heparin Therapeutic Ranges: Standard Heparin Nomogram: 53 to 78 seconds (anti-Xa level of 0.3 to 0.7 U/ml) Low Dose/ACS Nomogram: 49 to 67 seconds (anti-Xa level of 0.2 to 0.5 U/ml) Stroke Treatment Nomogram: 49 to 67 seconds (anti-Xa level of 0.2 to 0.5 U/ml) Note: The APTT therapeutic range has been determined for the current lot of laboratory APTT reagent in use throughout the [facility]. Performed By: #### P TT, NTBNP, HSTNT, CBCDIF, PT, CKCKMB, CMP #### [place] [phone] aPTT Coag time (Bld) 54.3 s High 23.0-32.4 [facility] Comment on above: Result Comment: Unfr actionated Heparin Therapeutic Ranges: Standard Heparin Nomogram: 53 to 78 seconds (anti-Xa level of 0.3 to 0.7 U/ml) Low Dose/ACS Nomogram: 49 to 67 seconds (anti-Xa level of 0.2 to 0.5 U/ml) Stroke Treatment Nomogram: 49 to 67 seconds (anti-Xa level of 0.2 to 0.5 U/ml) Note: The APTT therapeutic range has been determined for the current lot of laboratory APTT reagent in use throughout the [facility]. Performed By: #### P TT, NTBNP, HSTNT, CBCDIF, PT, CKCKMB, CMP #### [place] [phone] aPTT Coag time (Bld) 40.5 s High 23.0-32.4 [facility] Comment on above: Result Comment: Unfr actionated Heparin Therapeutic Ranges: Standard Heparin Nomogram: 53 to 78 seconds (anti-Xa level of 0.3 to 0.7 U/ml) Low Dose/ACS Nomogram: 49 to 67 seconds (anti-Xa level of 0.2 to 0.5 U/ml) Stroke Treatment Nomogram: 49 to 67 seconds (anti-Xa level of 0.2 to 0.5 U/ml) Note: The APTT therapeutic range has been determined for the current lot of laboratory APTT reagent in use throughout the [facility]. Performed By: #### P TT, NTBNP, HSTNT, CBCDIF, PT, CKCKMB, CMP #### [place] [address] Troponin Ton 03-25-2018 Troponin T.cardiac mass conc 0.055 ng/mL High 0.000-0.029 [facility] Comment on above: Result Comment: Urge nt value previously called 03/25/18 1108 BBlum Performed By: #### P TT, NTBNP, HSTNT, CBCDIF, PT, CKCKMB, CMP #### [place] [phone] Troponin T.cardiac mass conc 0.038 ng/mL High 0.000-0.029 [facility] Comment on above: Result Comment: Urge nt value previously called on 03/25/18 at [facility] Performed By: #### P TT, NTBNP, HSTNT, CBCDIF, PT, CKCKMB, CMP #### [place] [phone] Troponin T.cardiac mass conc 0.032 ng/mL High 0.000-0.029 [facility] Comment on above: Result Comment: Call ed to and read back by: Precious Alvarez RN [facility] 03/25/2018 0055 by Matthew Patricio. Performed By: #### P TT, NTBNP, HSTNT, CBCDIF, PT, CKCKMB, CMP #### [place] [phone] XR CHEST 1V FRONTAL PORTon 0 03-25-2018 XR CHEST 1V FRONTAL PORT * * *Final Report* * * DATE OF EXAM: Mar 25 2018 8:25PM [id number] - XR CHEST 1V FRONTAL PORT / PROCEDURE REASON: Shortness of breath * * * * Physician Interpretation * * * * EXAMINATION: CHEST RADIOGRAPH (PORTABLE SINGLE VIEW AP) Exam Date/Time: 03/25/2018 8:25 PM CLINICAL HISTORY: Shortness of breath, MQ: XCPR_5 Comparison: 1 day prior RESULT: Lines, tubes, and devices: None. Lungs and pleura: The lungs are free of airspace opacities. No pleural effusion or pneumothorax is seen. Cardiomediastinal silhouette: Cardiomegaly. Sternotomy wires. Other: . IMPRESSION: Cardiomegaly. No acute process is seen Armature Rewinder: JENNIFER Transcribe Date/Time: Mar 25 2018 8:26P Dictated by : CHASTITY SIMMONS MD This examination was interpreted and the report reviewed and electronically signed by: CHASTITY SIMMONS MD on Mar 25 2018 8:31PM EST [id number] [facility] ALLIED HEALTHon 03-24-2018 ALLIED HEALTH HNO ID: [id number] Author: Amanda Morris (Rt) Service: Radiology Author Type: Commercial Management Accountant Type: Allied Health Filed: 03/24/2018 6:16 PM Note Text: Radiology Service Progress Note PATIENT NAME: Sarina Lovett DATE OF SERVICE: March 24, 2018 TIME: 6:15 PM PATIENT IDENTITY VERIFICATION COMPLETED USING TWO (2) METHODS: Patient confirmed name verbally and ID band matches.. PATIENT GENDER DATA: Female. status: : No status: NO. PATIENT RELEVANT IMPLANT DATA REVIEWED: Not Applicable RADIOLOGY DEPARTMENT: General X-ray: Exam(s) Completed: Chest X-Ray PERIPHERAL IV DATA: Not applicable SIGNED BY: RT Arturo March 24, 2018 6:15 PM [facility] APTTon 03-24-2018 aPTT Coag time (Bld) 26.0 s Normal 23.0-32.4 [facility] Comment on above: Result Comment: Unfr actionated Heparin Therapeutic Ranges: Standard Heparin Nomogram: 53 to 78 seconds (anti-Xa level of 0.3 to 0.7 U/ml) Low Dose/ACS Nomogram: 49 to 67 seconds (anti-Xa level of 0.2 to 0.5 U/ml) Stroke Treatment Nomogram: 49 to 67 seconds (anti-Xa level of 0.2 to 0.5 U/ml) Note: The APTT therapeutic range has been determined for the current lot of laboratory APTT reagent in use throughout the [facility]. Performed By: #### P TT, NTBNP, HSTNT, CBCDIF, PT, CKCKMB, CMP #### [phone] CBC and Differentialon 03-24 Abs Baso 0.05 k/uL Normal <0.11 [facility] Comment on above: Performed By: #### P TT, NTBNP, HSTNT, CBCDIF, PT, CKCKMB, CMP #### [place] [id number] Abs [place] 0.47 k/uL Normal <0.87 [facility] Comment on above: Performed By: #### P TT, NTBNP, HSTNT, CBCDIF, PT, CKCKMB, CMP #### [place] [phone] Abs Neut 7.03 k/uL Normal 1.45-7.50 [facility] Comment on above: Performed By: #### P TT, NTBNP, HSTNT, CBCDIF, PT, CKCKMB, CMP #### [place] [id number] Basophils/100 WBC (Bld) 0.6 % Normal [facility] Comment on above: Performed By: #### P TT, NTBNP, HSTNT, CBCDIF, PT, CKCKMB, CMP #### [place] [id number] DTYPE Auto Diff Normal [facility] Comment on above: Performed By: #### P TT, NTBNP, HSTNT, CBCDIF, PT, CKCKMB, CMP #### [phone] Eosinophils #/vol (Bld) 0.20 10*3/uL Normal <0.46 [facility] Comment on above: Performed By: #### P TT, NTBNP, HSTNT, CBCDIF, PT, CKCKMB, CMP #### [place] [address] Eosinophils/100 WBC (Bld) 2.3 % Normal [facility] Comment on above: Performed By: #### P TT, NTBNP, HSTNT, CBCDIF, PT, CKCKMB, CMP #### [place] [address] Erythrocyte distribution width Ratio (RBC) 13.4 % Normal 11.5-15.0 [facility] Comment on above: Performed By: #### P TT, NTBNP, HSTNT, CBCDIF, PT, CKCKMB, CMP #### [place] [address] Hematocrit Volume Fraction (Bld) 35.8 % Low 36.0-46.0 [facility] Comment on above: Performed By: #### P TT, NTBNP, HSTNT, CBCDIF, PT, CKCKMB, CMP #### [place] [address] Hemoglobin mass conc (Bld) 11.8 g/dL Normal 11.5-15.5 [facility] Comment on above: Performed By: #### P TT, NTBNP, HSTNT, CBCDIF, PT, CKCKMB, CMP #### [place] [address] Lymphocytes #/vol (Bld) 1.10 10*3/uL Normal 1.00-4.00 [facility] Comment on above: Performed By: #### P TT, NTBNP, HSTNT, CBCDIF, PT, CKCKMB, CMP #### [place] [address] Lymphocytes/100 WBC (Bld) 12.4 % Normal [facility] Comment on above: Performed By: #### P TT, NTBNP, HSTNT, CBCDIF, PT, CKCKMB, CMP #### [place] [phone] MCH Entitic mass (RBC) 28.8 pG Normal 26.0-34.0 [facility] Comment on above: Performed By: #### P TT, NTBNP, HSTNT, CBCDIF, PT, CKCKMB, CMP #### [place] [phone] MCHC mass conc (RBC) 33.0 g/dL Normal 30.5-36.0 [facility] Comment on above: Performed By: #### P TT, NTBNP, HSTNT, CBCDIF, PT, CKCKMB, CMP #### [place] [phone] MCV Entitic volume (RBC) 87.3 fL Normal 80.0-100.0 [facility] Comment on above: Performed By: #### P TT, NTBNP, HSTNT, CBCDIF, PT, CKCKMB, CMP #### [place] [phone] Monocytes/100 WBC (Bld) 5.3 % Normal [facility] Comment on above: Performed By: #### P TT, NTBNP, HSTNT, CBCDIF, PT, CKCKMB, CMP #### [place] [phone] Neutrophils/100 WBC (Bld) 79.4 % Normal [facility] Comment on above: Performed By: #### P TT, NTBNP, HSTNT, CBCDIF, PT, CKCKMB, CMP #### [place] [phone] Platelet mean volume Entitic volume (Bld) 10.1 fL Normal 9.0-12.7 [facility] Comment on above: Performed By: #### P TT, NTBNP, HSTNT, CBCDIF, PT, CKCKMB, CMP #### [place] [phone] Platelets #/vol (Bld) 210 10*3/uL Normal 150-400 [facility] Comment on above: Performed By: #### P TT, NTBNP, HSTNT, CBCDIF, PT, CKCKMB, CMP #### [place] [phone] RBC #/vol (Bld) 4.10 10*6/uL Normal 3.90-5.20 [facility] Comment on above: Performed By: #### P TT, NTBNP, HSTNT, CBCDIF, PT, CKCKMB, CMP #### [place] [phone] WBC #/vol (Bld) 8.85 10*3/uL Normal 3.70-11.00 [facility] Comment on above: Performed By: #### P TT, NTBNP, HSTNT, CBCDIF, PT, CKCKMB, CMP #### [place] [phone] CK, Total and CKMBon 019 CK enzyme act/vol 29 U/L Low 30-220 [facility] Comment on above: Performed By: #### P TT, NTBNP, HSTNT, CBCDIF, PT, CKCKMB, CMP #### [place] [phone] CK MB % CK MB % not reported with CK <100 U/L. Normal 0.0-4.0 [facility] Comment on above: Performed By: #### P TT, NTBNP, HSTNT, CBCDIF, PT, CKCKMB, CMP #### [place] [phone] MB 2.4 ng/mL Normal 0.0-8.8 [facility] Comment on above: Performed By: #### P TT, NTBNP, HSTNT, CBCDIF, PT, CKCKMB, CMP #### [place] [phone] Comp Metabolic Panelon 03-24 Albumin mass conc 4.6 g/dL Normal 3.5-5.0 [facility] Comment on above: Performed By: #### P TT, NTBNP, HSTNT, CBCDIF, PT, CKCKMB, CMP #### [place] [phone] ALP enzyme act/vol 113 U/L Normal 34-123 [facility] Comment on above: Performed By: #### P TT, NTBNP, HSTNT, CBCDIF, PT, CKCKMB, CMP #### [place] [phone] ALT enzyme act/vol 7 U/L Normal 0-45 [facility] Comment on above: Performed By: #### P TT, NTBNP, HSTNT, CBCDIF, PT, CKCKMB, CMP #### [place] [phone] Anion gap molar conc 14 mmol/L Normal 9-18 [facility] Comment on above: Performed By: #### P TT, NTBNP, HSTNT, CBCDIF, PT, CKCKMB, CMP #### [place] [phone] AST enzyme act/vol 10 U/L Normal 7-40 [facility] Comment on above: Performed By: #### P TT, NTBNP, HSTNT, CBCDIF, PT, CKCKMB, CMP #### [place] [phone] Bilirubin mass conc 0.2 mg/dL Normal 0.2-1.3 [facility] Comment on above: Performed By: #### P TT, NTBNP, HSTNT, CBCDIF, PT, CKCKMB, CMP #### [place] [phone] Calcium mass conc 9.8 mg/dL Normal 8.5-10.5 [facility] Comment on above: Performed By: #### P TT, NTBNP, HSTNT, CBCDIF, PT, CKCKMB, CMP #### [place] [phone] Chloride molar conc 101 mmol/L Normal 98-110 [facility] Comment on above: Performed By: #### P TT, NTBNP, HSTNT, CBCDIF, PT, CKCKMB, CMP #### [id number] CO2 molar conc 22 mmol/L Low 23-32 [facility] Comment on above: Performed By: #### P TT, NTBNP, HSTNT, CBCDIF, PT, CKCKMB, CMP #### [place] [phone] Creatinine mass conc 1.50 mg/dL High 0.70-1.40 [facility] Comment on above: Performed By: #### P TT, NTBNP, HSTNT, CBCDIF, PT, CKCKMB, CMP #### [place] [phone] eGFR- Amer. 41 Low >60 [facility] Comment on above: Performed By: #### P TT, NTBNP, HSTNT, CBCDIF, PT, CKCKMB, CMP #### [place] [phone] GFR/1.73 sq M predicted among non-blacks MDRD vol rate/area (S/P/Bld) 34 . Low >60 [facility] Comment on above: Performed By: #### P TT, NTBNP, HSTNT, CBCDIF, PT, CKCKMB, CMP #### [place] [phone] Glucose mass conc 243 mg/dL High 65-100 [facility] Comment on above: Performed By: #### P TT, NTBNP, HSTNT, CBCDIF, PT, CKCKMB, CMP #### [place] [phone] Potassium molar conc 5.8 mmol/L High 3.5-5.0 [facility] Comment on above: Performed By: #### P TT, NTBNP, HSTNT, CBCDIF, PT, CKCKMB, CMP #### [place] [phone] Protein mass conc 8.0 g/dL Normal 6.0-8.4 [facility] Comment on above: Performed By: #### P TT, NTBNP, HSTNT, CBCDIF, PT, CKCKMB, CMP #### [place] [phone] Sodium molar conc 137 mmol/L Normal 132-148 [facility] Comment on above: Performed By: #### P TT, NTBNP, HSTNT, CBCDIF, PT, CKCKMB, CMP #### [place] [phone] Urea nitrogen mass conc 34 mg/dL High 8-25 [facility] Comment on above: Performed By: #### P TT, NTBNP, HSTNT, CBCDIF, PT, CKCKMB, CMP #### [place] [phone] ED NOTEon 03-24-2018 ED NOTE HNO ID: [id number] Author: Monica CabreraRn) DEBBIE Thurman Service: Nursing Author Type: Registered Nurse Type: ED Notes Filed: 03/24/2018 6:53 PM Note Text: Repeat troponin drawn and sent to lab. [facility] ED NOTE HNO ID: [id number] Author: Monica Payton) DEBBIE Thurman Service: Nursing Author Type: Registered Nurse Type: ED Notes Filed: 03/24/2018 6:46 PM Note Text: Report given to Vanessa LEWIS on [place]. Bed is ready. Transport notified. [facility] ED NOTE HNO ID: [id number] Author: Ken CabreraRn) DEBBIE Mackenzie Service: (none) Author Type: Registered Nurse Type: ED Notes Filed: 03/24/2018 5:12 PM Note Text: Bed: 25-ED Expected date: Expected time: Means of arrival: Comments: CP/SOB Normal [facility] ED PROV NOTEon 03-24-2018 Protein mass conc HNO ID: [id number] Author: Easton Ty MD Service: Emergency Medicine Author Type: Physician Type: ED Provider Notes Filed: 03/26/2018 8:34 AM Note Text: ED Provider Note Patient Name: Sarina Lovett SERVICE DATE: 03/24/18 History Patient presents with: Chest Pain: since 1500 this evening Dizziness: upon standing Patient is a 73-year-old female with hx of CAD s/p PCI x 4, HTN, hyperlipidemia, aortic stenosis, DMII presents to the ED for chest pain and dizziness. Patient states that she was eating dinner around 3 PM when she started experiencing mid-sternal crushing chest pain that has been constant, 08/07, no aggravating or alleviating factors. She reports associated dizziness. No SOB, diaphoresis, n/v, syncope, palpitations. Last echo was in 2015 and had EF 48%. Patient states that this feels similar to when she had her WI in the past. No leg pain or swelling. The chest pain is not pleuritic or exertional. No recent surgeries or travel, not bedridden, no hx of malignancy, no hx of clotting disorders, no hx of DVT/PE. No fevers or chills. No cough, congestion, rhinorrhea, myalgias, abdominal pain, numbness/tingling, weakness. PAST MEDICAL 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 - Aortic valve disorders - Cancer (HCC) - Coronary atherosclerosis of unspecified type of vessel, nez perce or graft Coronary Atherosclerosis - Diabetes (HCC) - Mixed hyperlipidemia Hyperlipidemia - Psychiatric disorder - Unspecified essential hypertension Essential hypertension PAST SURGICAL HISTORY Procedure Laterality Date - CARDIAC CATHETERIZATION HX - CORONARY STENT EA VESSEL david 02/2015 - HEART SURGERY HX aortic valve replacement, CABGx3 - LIGATE [place] [employer]UBE FAMILY HISTORY Problem Relation Age of Onset - Ischemic Heart Disease Maternal Grandmother - Ischemic Heart Disease Paternal Grandfather - Diabetes Mother - Diabetes Maternal Grandmother - Diabetes Maternal Aunt - other (chf) Mother - Hypertension Father - Lipids Father Social History Social History Main Topics - Smoking status: Former Smoker Packs/day: 0.50 Years: 40.00 Quit date: 02/28/2013 - Smokeless tobacco: Never Used Comment: started in her teenage years - Alcohol use Yes Comment: rarely - Drug use: No - Sexual activity: Yes Partners: Male Comment: all previous pap normal ALLERGIES Allergen Reactions - Statins [Other] Caused severe muscular weakness. - Sulfa (Sulfonamide * Caused severe generalized swelling. - Tape [Other] Severe skin reaction; needs to use paper tape Review of Systems Constitutional: Negative for chills and fever. HENT: Negative for congestion, ear discharge, ear pain, facial swelling, postnasal drip, rhinorrhea, sinus pain, sinus pressure, sore throat and trouble swallowing. Eyes: Negative for visual disturbance. Respiratory: Negative for cough, chest tightness, shortness of breath and wheezing. Cardiovascular: Positive for chest pain. Negative for palpitations and leg swelling. Gastrointestinal: Negative for abdominal pain, blood in stool, constipation, diarrhea, nausea and vomiting. Genitourinary: Negative for decreased urine volume, dysuria, flank pain, frequency, hematuria, urgency and vaginal bleeding. Musculoskeletal: Negative for back pain, gait problem, myalgias, neck pain and neck stiffness. Skin: Negative for rash. Allergic/Immunologic: Negative for immunocompromised state. Neurological: Positive for dizziness and light-headedness. Negative for syncope, facial asymmetry, speech difficulty, weakness, numbness and headaches. Hematological: Does not bruise/bleed easily. Psychiatric/Behaviora l: Negative for confusion. Physical Exam BP 190/65 Pulse 70 Temp (Src) 97.8 (Oral) Resp 19 Ht 5' 7 (1.70m) Wt 180 lb (81.6kg) SpO2 97% BMI 28.19 kg/(m2). Physical Exam Vital signs reviewed. General Survey:? Alert and oriented x 3.? Sitting in bed in no acute distress. Skin: Warm and dry.? Cap refill less than 2 seconds. Nail beds pink.? Head: Normocephalic, atraumatic.? Eyes: PERRLA, EOMI, Conjunctivae normal. Sclera white.? Mouth: Gums pink.? Buccal mucosa pink and moist.? Neck: Supple with no meningismus. Trachea midline.?? No carotid bruits bilaterally.? No JVD. Respiratory: Lung sounds clear and equal to auscultation bilaterally.? No wheezes, rhonci or rales.? Chest expansion symmetrical.? No accessory muscle usage. Cardiovascular: Normal S1 and S2. Heart RRR, no gallops or rubs, no aorta enlargement or bruit noted. Peripheral Vascular: Extremities warm and without edema.? Carotid, radial pulses, and DP/PT pulses 2+ and equal bilaterally. No calf swelling/tenderness. Gastrointestinal: Soft and non-distended.? No tenderness with palpation.? No masses.? Bowel sounds present in all four quads.?No rebound, guarding, peritoneal signs, or masses. Genitourinary: No CVA tenderness.? Musculoskeletal:?? No swelling or deformity noted.? Joints without erythema, edema or warmth.? No neck pain with flexion or stiffness. No back or hip tenderness. Neurological: Alert, relaxed and cooperative.?Memory intact. CN II-XII are grossly intact. Thought processes are coherent. Speech is clear and fluent. Diagnostic Testing ED Labs Ordered and Reviewed CBC + AUTO DIFF (AK,AV,EU,FV,HL,THAI,MM ,SP) - Abnormal; Notable for the following: Result Value Ref Range Hematocrit 35.8 (*) 36.0 - 46.0 % All other components within normal limits COMPREHENSIVE METABOLIC PANEL (AK,AV,EU,FV,HL,THAI,MM ,SP) - Abnormal; Notable for the following: Glucose 243 (*) 65 - 100 mg/dL BUN 34 (*) 8 - 25 mg/dL Creatinine 1.50 (*) 0.70 - 1.40 mg/dL Potassium 5.8 (*) 3.5 - 5.0 mmol/L CO2 22 (*) 23 - 32 mmol/L eGFR- 41 (*) >60 eGFR-All Other Races 34 (*) >60 . All other components within normal limits HIGH SENSITIVITY TROPONIN T (AV,EU,FV,HL,THAI,MM,SP ) - Abnormal; Notable for the following: ANGE High Sensitivity 31 (*) <12 ng/L All other components within normal limits CK TOTAL AND CK-MB (AK,AV,EU,FV,HL,THAI,MM ,SP) - Abnormal; Notable for the following: CK 29 (*) 30 - 220 U/L All other components within normal limits PROBNP N-TERMINAL (AK,AV,EU,FV,HL,THAI,MM ,SP) - Abnormal; Notable for the following: ProBNP 9,108 (*) <125 pg/mL All other components within normal limits PROTHROMBIN TIME / PT (AK,AV,EU,FV,HL,THAI,MM ,SP) ACTIVATED PTT (AK,AV,EU,FV,HL,THAI,MM ,SP) HIGH SENSITIVITY TROPONIN T (AV,EU,FV,HL,THAI,MM,SP ) URINALYSIS WITH MICROSCOPIC (AK,AV,EU,FV,HL,THAI,MM ,SP) XR CHEST 1V FRONTAL PORT Final Result IMPRESSION: Mild bilateral basal atelectasis. Armature Rewinder: JENNIFER Transcribe Date/Time: Mar 24 2018 6:48P Dictated by : ELEONORA HIGGINS MD This examination was interpreted and the report reviewed and electronically signed by: ELEONORA HIGGINS MD on Mar 24 2018 6:49PM EST Procedures ED Course / Clinical Impression Clinical Impressions as of Mar 26 823 JULIETA (acute kidney injury) (HCC) Hyperkalemia Elevated troponin Chest pain, unspecified type NSTEMI (non-ST elevated myocardial infarction) (HCC) Unstable angina pectoris (HCC) Atherosclerosis of coronary artery of nez perce heart with unstable angina pectoris, unspecified vessel or lesion type (HCC) Essential hypertension, benign Hypertensive emergency Psychiatric disorder Tobacco abuse MDM / Disposition / Plan Triage notes,nursing notes, medical history, vitals signs, medication list reviewed. ? Patient is a 73-year-old female with hx of CAD s/p PCI x 4, HTN, hyperlipidemia, aortic stenosis, DMII presents to the ED for chest pain and dizziness. HPI as noted above. Exam as noted. Patient is in NAD, hemodynamically stable and non-toxic in appearance in the ED. Labs with leukocytosis or anemia, Creatinine is elevated at 1.50 with elevated potassium of 5.8. Initial high sensitivity troponin T was 31. BNP elevated at 9,108. Pt was given full dose of aspirin and started on nitroglycerin drip 5 mcg in the ED. The case was discussed with Dr. Haddad who does not feel that emergent cardiac catheterization is necessary at this time and recommends admission to [facility] and treat as NSTEMI with heparin. Pt started on heparin in the ED. Concern for NSTEMI/ACS at this time. No concern for PE, aneurysm, or dissection at this time. Chest pain improved with nitroglycerin, currently 3/10. Case was discussed with [facility] hospitalist and patient will be admitted to [facility]. Pt remained stable during ED visit and stable at the time of admission. The patient was ADMITTED TO: [facility]. Condition at time of disposition: improved and stable SIGNATURE: KIRSTIN Banda Pa-C, PA 03/24/18 1915 Critical Care I spent a total of 45 minutes of critical care time in the evaluation and management of this patient. This was necessary to treat or prevent deterioration of the following condition(s): Cardiovascular impairment, which the patient had and/or has a high probability of suddenly developing. The patient received IV Fluids and Consultation by Cardiology, NTG gtt, Heparin gtt during the time that critical care was provided.I discussed the plan of care with the PA/BOX MAKER PAPERBOARD and agree with the findings documented. Critical care time excludes separately billed procedures. Esaton Ty MD Attending Note I have personally performed a face to face assessment of the patient and have reviewed the PA/BOX MAKER PAPERBOARD note. My olivera findings include: History is a 73-year-old female presents with chest pain that began earlier today. Her symptoms are concerning for unstable angina. Initial EKG was largely unchanged from her EKG. There was some concerning ST segment depressions in leads 1 and aVL. EKGs are shared with stone layer interventionalist, Dr Browne, who agrees symptoms and EKGs are concerning for unstable angina. He does not recommend emergent catheterization at this time. The patient will be admitted to [facility] CICU. Heparin drip will be started. Nitroglycerin drip was also started. Assessment/Plan are admission to [facility]. Other additions or changes: None Signature: Easton Ty MD Date: 03/26/2018 Time: 8:25 AM Easton Ty MD 03/26/18 0834 [facility] HISTORY PHYSICALon HISTORY PHYSICAL HNO ID: [id number] Author: Chiara Latham Service: Hospital Medicine Author Type: Physician Type: HANDP Filed: 03/24/2018 9:38 PM Note Text: SERVICE DATE: 03/24/2018 SERVICE TIME: 9:30 PM DEPARTMENT OF HOSPITAL MEDICINE HISTORY AND PHYSICAL EXAM Primary Care Physician: Sacha Ford MD Primary Meat Cutting Teacher: Dr Doris Browne PATIENT NAME: Sarina Lovett PATIENT LOCATION: [id number]- 024* NIGHT AND WEEKEND COVERAGE: Tonight: [id number], please page me at [phone]. Patient will be assigned at 0730 to a primary team. SUBJECTIVE Chief Complaint: NSTEMI (non-ST elevated myocardial infarction) (HCC) HPI: This is a 73 yo F with PMH of PCI to the RCA in 2000, CABG in 2005, then in 2016 repeat PCI, s/p replacement in 2005, HTN, DLD, DM, presenting with mid-sternal chest pain that started around 3pm, constant, crushing , 08/07 currently 06/07, without aggravating or alleviating factors. This pain has been intermittent for the past 3 weeks but has been progressively increasing in severity. She has associated dizziness, and palpitations. She denies dyspnea, diaphoresis, nausea, vomiting, syncope, low leg edema. She states this feels similar to her prior WI. She denies history of DVT/PE. She is currently being treated for NSTEMI. In the ED, she was found to be hypertensive with BP 190/65, pulse 70. CBC with WBC8.85 Hgb11.8 (slightly above BL of 9.8) Cie304. INR 1.0. Chem with hyperkalemia of 5.8, Cr elevated at 1.5 (no recent BL, but last Cr in 2016 was 1.08, was as high as 1.64 in 2016), glucose elevated at 243. LCTs normal. CK 29. CKMB 2.4. BNP 9,108. ANGE HS elevated at 31. 9108. EKG denotes no ST elevation. There is a stable RBBB, R wave progression is slightly changed, earlier transition at v3 now from v4, and t waves are biphasic now at V5 and V6, nonspecific changes. This is compared to an EKG 06/02/15. Last echo was in 2016 and had EF 48%. CXR with possible mild pulmonary edema based on my review. She was given aspirin 243mg PO, heparin, and NG drip and she was admitted to the coronary care unit in stable condition. Review of Systems: CONSTITUTIONAL: No fevers, chills, nightsweats, unintended weight loss Head/Nose: Denies frequent or severe headaches, nasal congestion/sinus symptoms EYES: No diplopia or blurry vision. CARDIOVASCULAR: +chest pain +palpitations PULMONARY: No dyspnea or unexplained cough. GI: No nausea, vomiting, dysphagia/odynophagia , belly pain, constipation, diarrhea, hematochezia, melena. : No new urinary complaints, including dysuria, gross hematuria or urinary frequency. NEURO: No new balance problems, peripheral weakness/paresthesias or numbness of concern. MUSCULOSKELETAL: No new joint pain, swelling, or erythema. PSY: No concerns regarding depression, anxiety or panic. INTEGUMENTARY: +itchy rash, about 5cm in area, on the left scapula. PAST MEDICAL HISTORY Diagnosis Date - Acute myocardial infarction, unspecified site 11/28 s/p RCA stent, had stress Echo : told o.k. - Aortic valve disorders - Cancer (HCC) - Coronary atherosclerosis of unspecified type of vessel, nez perce or graft Coronary Atherosclerosis - Diabetes (HCC) - Mixed hyperlipidemia Hyperlipidemia - Psychiatric disorder - Unspecified essential hypertension Essential hypertension PAST SURGICAL HISTORY Procedure Laterality Date - CARDIAC CATHETERIZATION HX - CORONARY STENT EA VESSEL david 02/2015 - HEART SURGERY HX aortic valve replacement, CABGx3 - LIGATE FALLOPIAN TUBE Social History Marital status: Spouse name: Years of education: Number of children: Social History Main Topics Smoking status: Former Smoker Packs/day: 0.50 Years: 40.00 Quit date: 02/28/2013 Smokeless tobacco: Never Used Comment: started in her teenage years Alcohol use: Yes Comment: rarely Drug use: No Sexual activity: Yes Partners with: Male Comment: all previous pap normal FAMILY HISTORY Problem Relation Age of Onset - Ischemic Heart Disease Maternal Grandmother - Ischemic Heart Disease Paternal Grandfather - Diabetes Mother - Diabetes Maternal Grandmother - Diabetes Maternal Aunt - other (chf) Mother - Hypertension Father - Lipids Father Prior to Admission Medications Prescriptions Last Dose Informant Patient Reported? Taking? VITAMIN D 50,000 unit capsule 03/24/2018 Yes Yes Sig: Take 50,000 Units by mouth once each week. amLODIPine (NORVASC) 5 mg tablet 03/24/2018 No Yes Sig: Take 1 tablet by mouth once daily. aspirin 81 mg chewable tablet 03/24/2018 Yes Yes Sig: Take 81 mg by mouth once daily. carvedilol (COREG) 12.5 mg tablet 03/24/2018 No Yes Sig: Take 1 tablet by mouth twice daily with meals. clopidogrel (PLAVIX) 75 mg tablet 03/24/2018 No Yes Sig: Take 1 tablet by mouth once daily. cyanocobalamin (VITAMIN B-12) 100 mcg tab 03/24/2018 Yes Yes Sig: Take 100 mcg by mouth once daily. glimepiride (AMARYL) 1 mg tablet 03/24/2018 No Yes Sig: Take 1 tablet by mouth twice daily. lisinopril (ZESTRIL, PRINIVIL) 20 mg tablet 03/24/2018 Yes Yes Sig: Take 20 mg by mouth once daily. niacin (NIACIN) 500 mg tablet 03/24/2018 Yes Yes Sig: Take 1,000 mg by mouth daily at bedtime. omeprazole (PRILOSEC) 20 mg capsule 03/24/2018 Yes Yes Sig: Take 20 mg by mouth once daily. pravastatin (PRAVACHOL) 40 mg tablet 03/24/2018 Yes Yes Sig: Take 40 mg by mouth once daily. sertraline (ZOLOFT) 100 mg tablet 03/24/2018 Yes Yes Sig: Take 150 mg by mouth once daily. Facility-Administered Medications: None ALLERGIES Allergen Reactions - Statins [Other] Caused severe muscular weakness. - Sulfa (Sulfonamide * Caused severe generalized swelling. - Tape [Other] Severe skin reaction; needs to use paper tape OBJECTIVE PHYSICAL EXAM BP 171/70 Pulse 69 Temp 36.8 ?C (98.2 ?F) (Oral) Resp 18 Ht 170.2 cm (5' 7 ) Wt 79.7 kg (175 lb 11.3 oz) SpO2 98% BMI 27.52 kg/m? Constitutional: well-appearing, alert, in no acute distress Skin: about 4cm area of mild erythema on the left scapula. Also noted to have multiple actinic keratoses. Ears/Nose/Mouth/Throa t: Normocephalic atraumatic, Lips, mucosa, and tongue normal, teeth and gums normal Eyes: Anicteric sclera. Pupils are equally round and reactive to light. Extraocular movements are intact Respiratory: Lungs clear to auscultation. No wheezing, rhonchi, rales. Cardiovascular: RRR without murmur, gallop, rubs, nor lower extremity edema or cyanosis noted Gastrointestinal: Abdomen soft, non-tender. Bowel sounds normal. No masses, organomegaly Musculoskeletal: No joint swelling, deformity, clubbing, or tenderness in the upper or lower extremities Neuro: Sensation grossly intact. Has full ROM of the upper and lower extremities LABORATORY DATA Past 72 Hour Labs: Recent Labs 03/24/18 1735 WBC 8.85 RBC 4.10 HB 11.8 HCT 35.8* MCV 87.3 MCH 28.8 MCHC 33.0 RDWCV 13.4 PLT 210 MPV 10.1 NEUTP 79.4 LYMPHP 12.4 MONOP 5.3 EODINP 2.3 BASOP 0.6 ABSNEUT 7.03 ABSMONO 0.47 ABSEOSIN 0.20 ABSBASO 0.05 Past 72 Hour Labs: Recent Labs 03/24/18 1735 PTSEC 10.4 APTT 26.0 INR 1.0 Past 72 Hour Labs: Recent Labs 03/24/18 1735 GLUC 243* BUN 34* CREAT 1.50* NA 137 K 5.8* CHLOR 101 CO2 22* TPROT 8.0 ALB 4.6 CA 9.8 ALKPHOS 113 TBILI 0.2 AST 10 ALT 7 PTSEC 10.4 APTT 26.0 INR 1.0 IMAGING IMPRESSIONS as Read by the Radiologist: CXR March 24, 2018 RESULT: 1. Lines, Tubes, and Devices: ?N/A 2. Lungs and Pleura: Mild bilateral basal atelectasis. No focal consolidation, overt vascular congestion, obvious pleural effusion or pneumothorax. 3. Cardiomediastinal silhouette: The trachea, mediastinum and cardio silhouette show no significant interval change. EKG March 24, 2018 As described in the HPI CARE COORDINATION: No Patient Care Coordination Note on file. ASSESSMENT AND PLAN Assessment AND Plan, all Hosp Problems Active Hospital Problems as of 03/24/2018 Noted - Resolved A * (Principal)NSTEMI (non-ST elevated myocardial infarction) (HCC) 03/24/2018 - Present Current Assessment AND Plan Assessment: Trop elevated, no EKG changes, chest pain present. PLAN: -Heparin ggt -Plavix 75mg po -NG ggt -s/p aspirin 325mg po -multiple statin allergies, no statin ordered -JULIETA with hyperkalemia, no LOS-I -ECHO ordered -Trend TROPS and serial EKGs to monitor for dynamic changes -telemetry -Cardiology consulted -Coreg HELD due to mild pulmonary edema on CXR and Elevated BNP, possible elements of CHF. ECHO ordered for evaluation B Hypertensive emergency 03/24/2018 - Present Current Assessment AND Plan Assessment: SBP 240s/80s on arrival to [facility]. With Chest pain and ?JULIETA. PLAN: -On NG drip, improving -PRN oral hydralazine as well -avoiding BB due to possible ADHF -avoiding los-inhibitor due to ?julieta. BL Cr is not known since 2017. C Chest pain 05/31/2015 - Present Current Assessment AND Plan See NSTEMI Unprioritized Coronary atherosclerosis 06/12/2015 - Present Current Assessment AND Plan See NSTEMI Essential hypertension, benign 05/16/2003 - Present Current Assessment AND Plan See hypertensive emergency. Psychiatric disorder 03/24/2018 - Present Current Assessment AND Plan Assessment: Depression, psychosocial stress due to lack of perceived empathy from children. Denies SI at time of admission. PLAN: -psychology consulted. Tobacco abuse 03/24/2018 - Present Current Assessment AND Plan Assessment: Counseled. Started smoking again about 1.5 yrs ago after the of her sister. PLAN: -counseled -continue home wellbutrin Medication and Non-Pharmacologic VTE Prophylaxis/Anticoagu lants Anticoagulant AND Antiplatelet Medications Start Dose Route Frequency Ordered Stop 03/25/18 0900 aspirin 81 mg chewable tab(s) 81 mg ORAL DAILY 03/24/182035 -- 03/24/18 2100 clopidogrel 75 mg tab(s) (PLAVIX) 75 mg ORAL DAILY 03/24/182035 -- 03/24/18 1800 heparin iv infusion (LOW DOSE ACS/NOMOGRAM) 25,000 units in NaCl 0.45% 250 mL PREMIX (Heparin Infusion + Rate Change Bolus) 0-30 mL/hr 0-3,000 Units/hr INTRAVENOUS CONTINUOUS 03/24/18 1757 -- 03/24/182044 vte non-pharmacologic prophylaxis - none indicated (mt,ky) 03/24/182044 activity - mobilize patient (mt,ky) VTE Prophylaxis: VTE prophylaxis appropriate SIGNATURE: Chiara Latham MD PATIENT NAME: Sarina Lovett DATE: March 24, 2018 TIME: 9:30 PM PAGER/CONTACT #: [phone] [facility] HOSPon 03-24-2018 HOSP Patient:Sarina Lovett MRN: Height:5' 7 (1.702 m) Weight:171 lb 8.3 oz (77.8 kg) Outpatient Medications as of 03/26/18: buPROPion XL (WELLBUTRIN XL) 150 mg 24 hr tablet ferrous sulfate 325 mg (65 mg iron) EC tablet VITAMIN D 50,000 unit capsule clopidogrel (PLAVIX) 75 mg tablet carvedilol (COREG) 12.5 mg tablet glimepiride (AMARYL) 1 mg tablet aspirin 81 mg chewable tablet lisinopril (ZESTRIL, PRINIVIL) 20 mg tablet sertraline (ZOLOFT) 100 mg tablet omeprazole (PRILOSEC) 20 mg capsule Admission/Clinic Administered Medications as of 03/26/18: hydrALAZINE 75 mg tab(s) (APRESOLINE) NIFEdipine XL 30 mg tab(s) (ADALAT CC) NaCl 0.9% iv infusion acetaminophen 650 mg tab(s) (TYLENOL) carvedilol 25 mg tab(s) (COREG) insulin lispro injection (rapid acting) (HumaLOG) aspirin 81 mg chewable tab(s) sertraline 150 mg tab(s) (ZOLOFT) clopidogrel 75 mg tab(s) (PLAVIX) buPROPion XL 150 mg tab(s) (WELLBUTRIN XL) NaCl 0.9% 3-5 mL ondansetron 4 mg tab(s) (ZOFRAN) ondansetron (PF) 4 mg injection (ZOFRAN) polyethylene glycol 3350 17 g packet (MIRALAX, GLYCOLAX) bisacodyl 10 mg suppository (DULCOLAX) melatonin 1 mg tab(s) dextrose 40 % 15 g glucagon 1 mg injection (GLUCAGEN) dextrose 50% in water 25 mL syringe perflutren lipid microspheres 1.1 mg/mL 1.3 mL injection (DEFINITY) pantoprazole DR 20 mg tab(s) (PROTONIX) Problem List: Other and unspecified hyperlipidemia [E78.5] Essential hypertension, benign [I10] Chest pain [R07.9] Coronary atherosclerosis [I25.10] Aortic valve disorders [I35.9] NSTEMI (non-ST elevated myocardial infarction) (HCC) [I21.4] Tobacco abuse [Z72.0] Hypertensive emergency [I16.1] Psychiatric disorder [F99] Nicotine use disorder, F17.2 [F17.200] Allergies: Statins [Other] Sulfa (Sulfonamide Antibiotics) tape [Other] Date Verified: 03/26/18 Lab Values Lab Value Units Date High Low POTA* 4.6 mmol/L 03/26/2018 5.0 3.5 BRIAN* 28.1 % 03/26/2018 46.0 36.0 Progress Notes (): Ken Mackenzie, RN, RN 03/24/2018 5:12 PM Signed Bed: 25-ED Expected date: Expected time: Means of arrival: Comments: CP/SOB Easton Ty MD, 03/26/2018 8:34 AM Signed ED Provider Note Patient Name: Sarina Lovett SERVICE DATE: 03/24/18 History Patient presents with: Chest Pain: since 1500 this evening Dizziness: upon standing Patient is a 73-year-old female with hx of CAD s/p PCI x 4, HTN, hyperlipidemia, aortic stenosis, DMII presents to the ED for chest pain and dizziness. Patient states that she was eating dinner around 3 PM when she started experiencing mid-sternal crushing chest pain that has been constant, 08/07, no aggravating or alleviating factors. She reports associated dizziness. No SOB, diaphoresis, n/v, syncope, palpitations. Last echo was in 2015 and had EF 48%. Patient states that this feels similar to when she had her WI in the past. No leg pain or swelling. The chest pain is not pleuritic or exertional. No recent surgeries or travel, not bedridden, no hx of malignancy, no hx of clotting disorders, no hx of DVT/PE. No fevers or chills. No cough, congestion, rhinorrhea, myalgias, abdominal pain, numbness/tingling, weakness. PAST MEDICAL 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 - Aortic valve disorders - Cancer (HCC) - Coronary atherosclerosis of unspecified type of vessel, nez perce or graft Coronary Atherosclerosis - Diabetes (HCC) - Mixed hyperlipidemia Hyperlipidemia - Psychiatric disorder - Unspecified essential hypertension Essential hypertension PAST SURGICAL HISTORY Procedure Laterality Date - CARDIAC CATHETERIZATION HX - CORONARY STENT EA VESSEL david 02/2015 - HEART SURGERY HX aortic valve replacement, CABGx3 - LIGATE FALLOPIAN TUBE FAMILY HISTORY Problem Relation Age of Onset - Ischemic Heart Disease Maternal Grandmother - Ischemic Heart Disease Paternal Grandfather - Diabetes Mother - Diabetes Maternal Grandmother - Diabetes Maternal Aunt - other (chf) Mother - Hypertension Father - Lipids Father Social History Social History Main Topics - Smoking status: Former Smoker Packs/day: 0.50 Years: 40.00 Quit date: 02/28/2013 - Smokeless tobacco: Never Used Comment: started in her teenage years - Alcohol use Yes Comment: rarely - Drug use: No - Sexual activity: Yes Partners: Male Comment: all previous pap normal ALLERGIES Allergen Reactions - Statins [Other] Caused severe muscular weakness. - Sulfa (Sulfonamide * Caused severe generalized swelling. - Tape [Other] Severe skin reaction; needs to use paper tape Review of Systems Constitutional: Negative for chills and fever. HENT: Negative for congestion, ear discharge, ear pain, facial swelling, postnasal drip, rhinorrhea, sinus pain, sinus pressure, sore throat and trouble swallowing. Eyes: Negative for visual disturbance. Respiratory: Negative for cough, chest tightness, shortness of breath and wheezing. Cardiovascular: Positive for chest pain. Negative for palpitations and leg swelling. Gastrointestinal: Negative for abdominal pain, blood in stool, constipation, diarrhea, nausea and vomiting. Genitourinary: Negative for decreased urine volume, dysuria, flank pain, frequency, hematuria, urgency and vaginal bleeding. Musculoskeletal: Negative for back pain, gait problem, myalgias, neck pain and neck stiffness. Skin: Negative for rash. Allergic/Immunologic: Negative for immunocompromised state. Neurological: Positive for dizziness and light-headedness. Negative for syncope, facial asymmetry, speech difficulty, weakness, numbness and headaches. Hematological: Does not bruise/bleed easily. Psychiatric/Behaviora l: Negative for confusion. Physical Exam BP 190/65 Pulse 70 Temp (Src) 97.8 (Oral) Resp 19 Ht 5' 7 (1.70m) Wt 180 lb (81.6kg) SpO2 97% BMI 28.19 kg/(m2). Physical Exam Vital signs reviewed. General Survey:? Alert and oriented x 3.? Sitting in bed in no acute distress. Skin: Warm and dry.? Cap refill less than 2 seconds. Nail beds pink.? Head: Normocephalic, atraumatic.? Eyes: PERRLA, EOMI, Conjunctivae normal. Sclera white.? Mouth: Gums pink.? Buccal mucosa pink and moist.? Neck: Supple with no meningismus. Trachea midline.?? No carotid bruits bilaterally.? No JVD. Respiratory: Lung sounds clear and equal to auscultation bilaterally.? No wheezes, rhonci or rales.? Chest expansion symmetrical.? No accessory muscle usage. Cardiovascular: Normal S1 and S2. Heart RRR, no gallops or rubs, no aorta enlargement or bruit noted. Peripheral Vascular: Extremities warm and without edema.? Carotid, radial pulses, and DP/PT pulses 2+ and equal bilaterally. No calf swelling/tenderness. Gastrointestinal: Soft and non-distended.? No tenderness with palpation.? No masses.? Bowel sounds present in all four quads.?No rebound, guarding, peritoneal signs, or masses. Genitourinary: No CVA tenderness.? Musculoskeletal:?? No swelling or deformity noted.? Joints without erythema, edema or warmth.? No neck pain with flexion or stiffness. No back or hip tenderness. Neurological: Alert, relaxed and cooperative.?Memory intact. CN II-XII are grossly intact. Thought processes are coherent. Speech is clear and fluent. Diagnostic Testing ED Labs Ordered and Reviewed CBC + AUTO DIFF (AK,AV,EU,FV,HL,THAI,MM ,SP) - Abnormal; Notable for the following: Result Value Ref Range Hematocrit 35.8 (*) 36.0 - 46.0 % All other components within normal limits COMPREHENSIVE METABOLIC PANEL (AK,AV,EU,FV,HL,THAI,MM ,SP) - Abnormal; Notable for the following: Glucose 243 (*) 65 - 100 mg/dL BUN 34 (*) 8 - 25 mg/dL Creatinine 1.50 (*) 0.70 - 1.40 mg/dL Potassium 5.8 (*) 3.5 - 5.0 mmol/L CO2 22 (*) 23 - 32 mmol/L eGFR- 41 (*) >60 eGFR-All Other Races 34 (*) >60 . All other components within normal limits HIGH SENSITIVITY TROPONIN T (AV,EU,FV,HL,THAI,MM,SP ) - Abnormal; Notable for the following: ANGE High Sensitivity 31 (*) <12 ng/L All other components within normal limits CK TOTAL AND CK-MB (AK,AV,EU,FV,HL,THAI,MM ,SP) - Abnormal; Notable for the following: CK 29 (*) 30 - 220 U/L All other components within normal limits PROBNP N-TERMINAL (AK,AV,EU,FV,HL,THAI,MM ,SP) - Abnormal; Notable for the following: ProBNP 9,108 (*) <125 pg/mL All other components within normal limits PROTHROMBIN TIME / PT (AK,AV,EU,FV,HL,THAI,MM ,SP) ACTIVATED PTT (AK,AV,EU,FV,HL,THAI,MM ,SP) HIGH SENSITIVITY TROPONIN T (AV,EU,FV,HL,THAI,MM,SP ) URINALYSIS WITH MICROSCOPIC (AK,AV,EU,FV,HL,THAI,MM ,SP) XR CHEST 1V FRONTAL PORT Final Result IMPRESSION: Mild bilateral basal atelectasis. Armature Rewinder: JENNIFER Transcribe Date/Time: Mar 24 2018 6:48P Dictated by : ELEONORA HIGGINS MD This examination was interpreted and the report reviewed and electronically signed by: ELEONORA HIGGINS MD on Mar 24 2018 6:49PM EST Procedures ED Course / Clinical Impression Clinical Impressions as of Mar 26 823 JULIETA (acute kidney injury) (HCC) Hyperkalemia Elevated troponin Chest pain, unspecified type NSTEMI (non-ST elevated myocardial infarction) (HCC) Unstable angina pectoris (HCC) Atherosclerosis of coronary artery of nez perce heart with unstable angina pectoris, unspecified vessel or lesion type (HCC) Essential hypertension, benign Hypertensive emergency Psychiatric disorder Tobacco abuse MDM / Disposition / Plan Triage notes,nursing notes, medical history, vitals signs, medication list reviewed. ? Patient is a 73-year-old female with hx of CAD s/p PCI x 4, HTN, hyperlipidemia, aortic stenosis, DMII presents to the ED for chest pain and dizziness. HPI as noted above. Exam as noted. Patient is in NAD, hemodynamically stable and non-toxic in appearance in the ED. Labs with leukocytosis or anemia, Creatinine is elevated at 1.50 with elevated potassium of 5.8. Initial high sensitivity troponin T was 31. BNP elevated at 9,108. Pt was given full dose of aspirin and started on nitroglycerin drip 5 mcg in the ED. The case was discussed with Dr. Haddad who does not feel that emergent cardiac catheterization is necessary at this time and recommends admission to [facility] and treat as NSTEMI with heparin. Pt started on heparin in the ED. Concern for NSTEMI/ACS at this time. No concern for PE, aneurysm, or dissection at this time. Chest pain improved with nitroglycerin, currently 05/07. Case was discussed with [facility] hospitalist and patient will be admitted to [facility]. Pt remained stable during ED visit and stable at the time of admission. The patient was ADMITTED TO: [facility]. Condition at time of disposition: improved and stable SIGNATURE: KIRSTIN Banda) DENISHA Ruggiero 03/24/18 1665 Critical Care I spent a total of 45 minutes of critical care time in the evaluation and management of this patient. This was necessary to treat or prevent deterioration of the following condition(s): Cardiovascular impairment, which the patient had and/or has a high probability of suddenly developing. The patient received IV Fluids and Consultation by Cardiology, NTG gtt, Heparin gtt during the time that critical care was provided.I discussed the plan of care with the PA/BOX MAKER PAPERBOARD and agree with the findings documented. Critical care time excludes separately billed procedures. Easton Ty MD Attending Note I have personally performed a face to face assessment of the patient and have reviewed the PA/BOX MAKER PAPERBOARD note. My olivera findings include: History is a 73-year-old female presents with chest pain that began earlier today. Her symptoms are concerning for unstable angina. Initial EKG was largely unchanged from her EKG. There was some concerning ST segment depressions in leads 1 and aVL. EKGs are shared with stone layer interventionalist, Dr Browne, who agrees symptoms and EKGs are concerning for unstable angina. He does not recommend emergent catheterization at this time. The patient will be admitted to [facility] CICU. Heparin drip will be started. Nitroglycerin drip was also started. Assessment/Plan are admission to [facility]. Other additions or changes: None Signature: Easton Ty MD Date: 03/26/2018 Time: 8:25 AM Easton Ty MD 03/26/18 0834 Previous Version RT Morris Tech 03/24/2018 6:16 PM Signed Radiology Service Progress Note PATIENT NAME: Sarina Lovett DATE OF SERVICE: March 24, 2018 TIME: 6:15 PM PATIENT IDENTITY VERIFICATION COMPLETED USING TWO (2) METHODS: Patient confirmed name verbally and ID band matches.. PATIENT GENDER DATA: Female. status: : No status: NO. PATIENT RELEVANT IMPLANT DATA REVIEWED: Not Applicable RADIOLOGY DEPARTMENT: General X-ray: Exam(s) Completed: Chest X-Ray PERIPHERAL IV DATA: Not applicable SIGNED BY: RT Arturo March 24, 2018 6:15 PM Monica Thurman, RN, RN 03/24/2018 6:46 PM Signed Report given to Vanessa LEWIS on [facility]. Bed is ready. Transport notified. Monica Thurman, RN, RN 03/24/2018 6:53 PM Signed Repeat troponin drawn and sent to lab. Chiara Latham MD 03/24/2018 9:10 PM Edited This is a 73 yo F with PMH of PCI to the RCA in 2000, CABG in 2005, then in 2015 repeat PCI, s/p replacement in 2005, HTN, DLD, DM, presenting with mid-sternal chest pain that started around 3pm, constant, crushing , 6/10 currently 4/10, without aggravating or alleviating factors. She has associated dizziness, and palpitations. She denies dyspnea, diaphoresis, nausea, vomiting, syncope, low leg edema. She states this feels similar to her prior [place]. She denies history of DVT/PE. She is currently being treated for NSTEMI. Previous Version Chiara Latham MD 03/24/2018 9:27 PM Edited Assessment: Trop elevated, no EKG changes, chest pain present. PLAN: -Heparin ggt -Plavix 75mg po -NG ggt -s/p aspirin 325mg po -multiple statin allergies, no statin ordered -JULIETA with hyperkalemia, no LOS-I -ECHO ordered -Trend TROPS and serial EKGs to monitor for dynamic changes -telemetry -Cardiology consulted -Coreg HELD due to mild pulmonary edema on CXR and Elevated BNP, possible elements of CHF. ECHO ordered for evaluation Previous Version Chiara Latham MD 03/24/2018 9:28 PM Edited Assessment: SBP 240s/80s on arrival to [facility]. With Chest pain and ?JULIETA. PLAN: -On NG drip, improving -PRN oral hydralazine as well -avoiding BB due to possible ADHF -avoiding los-inhibitor due to ?julieta. BL Cr is not known since 2017. Previous Version Chiara Latham MD 03/24/2018 9:28 PM Written See NSTEMI Chiara Latham MD 03/24/2018 9:28 PM Written Assessment: Counseled. Started smoking again about 1.5 yrs ago after the of her sister. PLAN: -counseled -continue home wellbutrin Chiara Latham MD 03/24/2018 9:29 PM Written Assessment: Depression, psychosocial stress due to lack of perceived empathy from children. Denies SI at time of admission. PLAN: -psychology consulted. Chiara Latham MD 03/24/2018 9:29 PM Written DEPARTMENT OF HOSPITAL MEDICINE HISTORY AND PHYSICAL EXAM Primary Care Physician: Sacha Ford MD Primary Meat Cutting Teacher: Dr Doris Browne PATIENT NAME: Sarina Lovett PATIENT LOCATION: [id number]/[place] [address]* NIGHT AND WEEKEND COVERAGE: Tonight: [phone], please page me at [phone]. Patient will be assigned at 0730 to a primary team. SUBJECTIVE Chief Complaint: NSTEMI (non-ST elevated myocardial infarction) (HCC) HPI: This is a 73 yo F with PMH of PCI to the RCA in 2000, CABG in 2005, then in 2015 repeat PCI, s/p replacement in 2005, HTN, DLD, DM, presenting with mid-sternal chest pain that started around 3pm, constant, crushing , 6/10 currently 4/10, without aggravating or alleviating factors. She has associated dizziness, and palpitations. She denies dyspnea, diaphoresis, nausea, vomiting, syncope, low leg edema. She states this feels similar to her prior [place]. She denies history of DVT/PE. She is currently being treated for NSTEMI. In the ED, she was found to be hypertensive with BP 190/65, pulse 70. CBC with WBC8.85 Hgb11.8 (slightly above BL of 9.8) Omy301. INR 1.0. Chem with hyperkalemia of 5.8, Cr elevated at 1.5 (no recent BL, but last Cr in 2016 was 1.08, was as high as 1.64 in 2016), glucose elevated at 243. LCTs normal. CK 29. CKMB 2.4. BNP 9,108. ANGE HS elevated at 31. 9108. EKG denotes no ST elevation. There is a stable RBBB, R wave progression is slightly changed, earlier transition at v3 now from v4, and t waves are biphasic now at V5 and V6, nonspecific changes. This is compared to an EKG 06/02/15. Last echo was in 2016 and had EF 48%. CXR with possible mild pulmonary edema based on my review. She was given aspirin 243mg PO, heparin, and NG drip and she was admitted to the coronary care unit in stable condition. Review of Systems: CONSTITUTIONAL: No fevers, chills, nightsweats, unintended weight loss Head/Nose: Denies frequent or severe headaches, nasal congestion/sinus symptoms EYES: No diplopia or blurry vision. CARDIOVASCULAR: +chest pain +palpitations PULMONARY: No dyspnea or unexplained cough. GI: No nausea, vomiting, dysphagia/odynophagia , belly pain, constipation, diarrhea, hematochezia, melena. : No new urinary complaints, including dysuria, gross hematuria or urinary frequency. NEURO: No new balance problems, peripheral weakness/paresthesias or numbness of concern. MUSCULOSKELETAL: No new joint pain, swelling, or erythema. PSY: No concerns regarding depression, anxiety or panic. INTEGUMENTARY: +itchy rash, about 5cm in area, on the left scapula. PAST MEDICAL 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 - Aortic valve disorders - Cancer (HCC) - Coronary atherosclerosis of unspecified type of vessel, nez perce or graft Coronary Atherosclerosis - Diabetes (HCC) - Mixed hyperlipidemia Hyperlipidemia - Psychiatric disorder - Unspecified essential hypertension Essential hypertension PAST SURGICAL HISTORY Procedure Laterality Date - CARDIAC CATHETERIZATION HX - CORONARY STENT EA VESSEL david 02/2015 - HEART SURGERY HX aortic valve replacement, CABGx3 - LIGATE FALLOPIAN TUBE Social History Marital status: Spouse name: Years of education: Number of children: Social History Main Topics Smoking status: Former Smoker Packs/day: 0.50 Years: 40.00 Quit date: 02/28/2013 Smokeless tobacco: Never Used Comment: started in her teenage years Alcohol use: Yes Comment: rarely Drug use: No Sexual activity: Yes Partners with: Male Comment: all previous pap normal FAMILY HISTORY Problem Relation Age of Onset - Ischemic Heart Disease Maternal Grandmother - Ischemic Heart Disease Paternal Grandfather - Diabetes Mother - Diabetes Maternal Grandmother - Diabetes Maternal Aunt - other (chf) Mother - Hypertension Father - Lipids Father Prior to Admission Medications Prescriptions Last Dose Informant Patient Reported? Taking? VITAMIN D 50,000 unit capsule 03/24/2018 Yes Yes Sig: Take 50,000 Units by mouth once each week. amLODIPine (NORVASC) 5 mg tablet 03/24/2018 No Yes Sig: Take 1 tablet by mouth once daily. aspirin 81 mg chewable tablet 03/24/2018 Yes Yes Sig: Take 81 mg by mouth once daily. carvedilol (COREG) 12.5 mg tablet 03/24/2018 No Yes Sig: Take 1 tablet by mouth twice daily with meals. clopidogrel (PLAVIX) 75 mg tablet 03/24/2018 No Yes Sig: Take 1 tablet by mouth once daily. cyanocobalamin (VITAMIN B-12) 100 mcg tab 03/24/2018 Yes Yes Sig: Take 100 mcg by mouth once daily. glimepiride (AMARYL) 1 mg tablet 03/24/2018 No Yes Sig: Take 1 tablet by mouth twice daily. lisinopril (ZESTRIL, PRINIVIL) 20 mg tablet 03/24/2018 Yes Yes Sig: Take 20 mg by mouth once daily. niacin (NIACIN) 500 mg tablet 03/24/2018 Yes Yes Sig: Take 1,000 mg by mouth daily at bedtime. omeprazole (PRILOSEC) 20 mg capsule 03/24/2018 Yes Yes Sig: Take 20 mg by mouth once daily. pravastatin (PRAVACHOL) 40 mg tablet 03/24/2018 Yes Yes Sig: Take 40 mg by mouth once daily. sertraline (ZOLOFT) 100 mg tablet 03/24/2018 Yes Yes Sig: Take 150 mg by mouth once daily. Facility-Administered Medications: None ALLERGIES Allergen Reactions - Statins [Other] Caused severe muscular weakness. - Sulfa (Sulfonamide * Caused severe generalized swelling. - Tape [Other] Severe skin reaction; needs to use paper tape OBJECTIVE PHYSICAL EXAM BP 171/70 Pulse 69 Temp 36.8 ?C (98.2 ?F) (Oral) Resp 18 Ht 170.2 cm (5' 7 ) Wt 79.7 kg (175 lb 11.3 oz) SpO2 98% BMI 27.52 kg/m? Constitutional: well-appearing, alert, in no acute distress Skin: about 4cm area of mild erythema on the left scapula. Also noted to have multiple actinic keratoses. Ears/Nose/Mouth/Throa t: Normocephalic atraumatic, Lips, mucosa, and tongue normal, teeth and gums normal Eyes: Anicteric sclera. Pupils are equally round and reactive to light. Extraocular movements are intact Respiratory: Lungs clear to auscultation. No wheezing, rhonchi, rales. Cardiovascular: RRR without murmur, gallop, rubs, nor lower extremity edema or cyanosis noted Gastrointestinal: Abdomen soft, non-tender. Bowel sounds normal. No masses, organomegaly Musculoskeletal: No joint swelling, deformity, clubbing, or tenderness in the upper or lower extremities Neuro: Sensation grossly intact. Has full ROM of the upper and lower extremities LABORATORY DATA Past 72 Hour Labs: Recent Labs 03/24/18 1735 WBC 8.85 RBC 4.10 HB 11.8 HCT 35.8* MCV 87.3 MCH 28.8 MCHC 33.0 RDWCV 13.4 PLT 210 MPV 10.1 NEUTP 79.4 LYMPHP 12.4 MONOP 5.3 EODINP 2.3 BASOP 0.6 ABSNEUT 7.03 ABSMONO 0.47 ABSEOSIN 0.20 ABSBASO 0.05 Past 72 Hour Labs: Recent Labs 03/24/18 1735 PTSEC 10.4 APTT 26.0 INR 1.0 Past 72 Hour Labs: Recent Labs 03/24/18 1735 GLUC 243* BUN 34* CREAT 1.50* NA 137 K 5.8* CHLOR 101 CO2 22* TPROT 8.0 ALB 4.6 CA 9.8 ALKPHOS 113 TBILI 0.2 AST 10 ALT 7 PTSEC 10.4 APTT 26.0 INR 1.0 IMAGING IMPRESSIONS as Read by the Radiologist: CXR March 24, 2018 RESULT: 1. Lines, Tubes, and Devices: ?N/A 2. Lungs and Pleura: Mild bilateral basal atelectasis. No focal consolidation, overt vascular congestion, obvious pleural effusion or pneumothorax. 3. Cardiomediastinal silhouette: The trachea, mediastinum and cardio silhouette show no significant interval change. EKG March 24, 2018 As described in the HPI Chaira Latham MD 03/24/2018 9:30 PM Written See hypertensive emergency. Chiara Latham MD 03/24/2018 9:30 PM Written See NSTEMI Chiara Latham MD 03/24/2018 9:38 PM Addendum SERVICE DATE: 03/24/2018 SERVICE TIME: 9:30 PM DEPARTMENT OF HOSPITAL MEDICINE HISTORY AND PHYSICAL EXAM Primary Care Physician: Sacha Ford MD Primary Meat Cutting Teacher: Dr Doris Browne PATIENT NAME: Sarina Lovett PATIENT LOCATION: [id number]- [facility]* NIGHT AND WEEKEND COVERAGE: Tonight: [phone], please page me at [phone]. Patient will be assigned at 0730 to a primary team. SUBJECTIVE Chief Complaint: NSTEMI (non-ST elevated myocardial infarction) (HCC) HPI: This is a 73 yo F with PMH of PCI to the RCA in 2000, CABG in 2005, then in 2015 repeat PCI, s/p replacement in 2005, HTN, DLD, DM, presenting with mid-sternal chest pain that started around 3pm, constant, crushing , 6/10 currently 4/10, without aggravating or alleviating factors. This pain has been intermittent for the past 3 weeks but has been progressively increasing in severity. She has associated dizziness, and palpitations. She denies dyspnea, diaphoresis, nausea, vomiting, syncope, low leg edema. She states this feels similar to her prior [place]. She denies history of DVT/PE. She is currently being treated for NSTEMI. In the ED, she was found to be hypertensive with BP 190/65, pulse 70. CBC with WBC8.85 Hgb11.8 (slightly above BL of 9.8) Mif111. INR 1.0. Chem with hyperkalemia of 5.8, Cr elevated at 1.5 (no recent BL, but last Cr in 2016 was 1.08, was as high as 1.64 in 2016), glucose elevated at 243. LCTs normal. CK 29. CKMB 2.4. BNP 9,108. ANGE HS elevated at 31. 9108. EKG denotes no ST elevation. There is a stable RBBB, R wave progression is slightly changed, earlier transition at v3 now from v4, and t waves are biphasic now at V5 and V6, nonspecific changes. This is compared to an EKG 06/02/15. Last echo was in 2016 and had EF 48%. CXR with possible mild pulmonary edema based on my review. She was given aspirin 243mg PO, heparin, and NG drip and she was admitted to the coronary care unit in stable condition. Review of Systems: CONSTITUTIONAL: No fevers, chills, nightsweats, unintended weight loss Head/Nose: Denies frequent or severe headaches, nasal congestion/sinus symptoms EYES: No diplopia or blurry vision. CARDIOVASCULAR: +chest pain +palpitations PULMONARY: No dyspnea or unexplained cough. GI: No nausea, vomiting, dysphagia/odynophagia , belly pain, constipation, diarrhea, hematochezia, melena. : No new urinary complaints, including dysuria, gross hematuria or urinary frequency. NEURO: No new balance problems, peripheral weakness/paresthesias or numbness of concern. MUSCULOSKELETAL: No new joint pain, swelling, or erythema. PSY: No concerns regarding depression, anxiety or panic. INTEGUMENTARY: +itchy rash, about 5cm in area, on the left scapula. PAST MEDICAL 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 - Aortic valve disorders - Cancer (HCC) - Coronary atherosclerosis of unspecified type of vessel, nez perce or graft Coronary Atherosclerosis - Diabetes (HCC) - Mixed hyperlipidemia Hyperlipidemia - Psychiatric disorder - Unspecified essential hypertension Essential hypertension PAST SURGICAL HISTORY Procedure Laterality Date - CARDIAC CATHETERIZATION HX - CORONARY STENT EA VESSEL david 02/2015 - HEART SURGERY HX aortic valve replacement, CABGx3 - LIGATE FALLOPIAN TUBE Social History Marital status: Spouse name: Years of education: Number of children: Social History Main Topics Smoking status: Former Smoker Packs/day: 0.50 Years: 40.00 Quit date: 02/28/2013 Smokeless tobacco: Never Used Comment: started in her teenage years Alcohol use: Yes Comment: rarely Drug use: No Sexual activity: Yes Partners with: Male Comment: all previous pap normal FAMILY HISTORY Problem Relation Age of Onset - Ischemic Heart Disease Maternal Grandmother - Ischemic Heart Disease Paternal Grandfather - Diabetes Mother - Diabetes Maternal Grandmother - Diabetes Maternal Aunt - other (chf) Mother - Hypertension Father - Lipids Father Prior to Admission Medications Prescriptions Last Dose Informant Patient Reported? Taking? VITAMIN D 50,000 unit capsule 03/24/2018 Yes Yes Sig: Take 50,000 Units by mouth once each week. amLODIPine (NORVASC) 5 mg tablet 03/24/2018 No Yes Sig: Take 1 tablet by mouth once daily. aspirin 81 mg chewable tablet 03/24/2018 Yes Yes Sig: Take 81 mg by mouth once daily. carvedilol (COREG) 12.5 mg tablet 03/24/2018 No Yes Sig: Take 1 tablet by mouth twice daily with meals. clopidogrel (PLAVIX) 75 mg tablet 03/24/2018 No Yes Sig: Take 1 tablet by mouth once daily. cyanocobalamin (VITAMIN B-12) 100 mcg tab 03/24/2018 Yes Yes Sig: Take 100 mcg by mouth once daily. glimepiride (AMARYL) 1 mg tablet 03/24/2018 No Yes Sig: Take 1 tablet by mouth twice daily. lisinopril (ZESTRIL, PRINIVIL) 20 mg tablet 03/24/2018 Yes Yes Sig: Take 20 mg by mouth once daily. niacin (NIACIN) 500 mg tablet 03/24/2018 Yes Yes Sig: Take 1,000 mg by mouth daily at bedtime. omeprazole (PRILOSEC) 20 mg capsule 03/24/2018 Yes Yes Sig: Take 20 mg by mouth once daily. pravastatin (PRAVACHOL) 40 mg tablet 03/24/2018 Yes Yes Sig: Take 40 mg by mouth once daily. sertraline (ZOLOFT) 100 mg tablet 03/24/2018 Yes Yes Sig: Take 150 mg by mouth once daily. Facility-Administered Medications: None ALLERGIES Allergen Reactions - Statins [Other] Caused severe muscular weakness. - Sulfa (Sulfonamide * Caused severe generalized swelling. - Tape [Other] Severe skin reaction; needs to use paper tape OBJECTIVE PHYSICAL EXAM BP 171/70 Pulse 69 Temp 36.8 ?C (98.2 ?F) (Oral) Resp 18 Ht 170.2 cm (5' 7 ) Wt 79.7 kg (175 lb 11.3 oz) SpO2 98% BMI 27.52 kg/m? Constitutional: well-appearing, alert, in no acute distress Skin: about 4cm area of mild erythema on the left scapula. Also noted to have multiple actinic keratoses. Ears/Nose/Mouth/Throa t: Normocephalic atraumatic, Lips, mucosa, and tongue normal, teeth and gums normal Eyes: Anicteric sclera. Pupils are equally round and reactive to light. Extraocular movements are intact Respiratory: Lungs clear to auscultation. No wheezing, rhonchi, rales. Cardiovascular: RRR without murmur, gallop, rubs, nor lower extremity edema or cyanosis noted Gastrointestinal: Abdomen soft, non-tender. Bowel sounds normal. No masses, organomegaly Musculoskeletal: No joint swelling, deformity, clubbing, or tenderness in the upper or lower extremities Neuro: Sensation grossly intact. Has full ROM of the upper and lower extremities LABORATORY DATA Past 72 Hour Labs: Recent Labs 03/24/18 1735 WBC 8.85 RBC 4.10 HB 11.8 HCT 35.8* MCV 87.3 MCH 28.8 MCHC 33.0 RDWCV 13.4 PLT 210 MPV 10.1 NEUTP 79.4 LYMPHP 12.4 MONOP 5.3 EODINP 2.3 BASOP 0.6 ABSNEUT 7.03 ABSMONO 0.47 ABSEOSIN 0.20 ABSBASO 0.05 Past 72 Hour Labs: Recent Labs 03/24/18 1735 PTSEC 10.4 APTT 26.0 INR 1.0 Past 72 Hour Labs: Recent Labs 03/24/18 1735 GLUC 243* BUN 34* CREAT 1.50* NA 137 K 5.8* CHLOR 101 CO2 22* TPROT 8.0 ALB 4.6 CA 9.8 ALKPHOS 113 TBILI 0.2 AST 10 ALT 7 PTSEC 10.4 APTT 26.0 INR 1.0 IMAGING IMPRESSIONS as Read by the Radiologist: CXR March 24, 2018 RESULT: 1. Lines, Tubes, and Devices: ?N/A 2. Lungs and Pleura: Mild bilateral basal atelectasis. No focal consolidation, overt vascular congestion, obvious pleural effusion or pneumothorax. 3. Cardiomediastinal silhouette: The trachea, mediastinum and cardio silhouette show no significant interval change. EKG March 24, 2018 As described in the HPI CARE COORDINATION: No Patient Care Coordination Note on file. ASSESSMENT AND PLAN Assessment AND Plan, all Hosp Problems Active Hospital Problems as of 03/24/2018 Noted - Resolved A * (Principal)NSTEMI (non-ST elevated myocardial infarction) (HCC) 03/24/2018 - Present Current Assessment AND Plan Assessment: Trop elevated, no EKG changes, chest pain present. PLAN: -Heparin ggt -Plavix 75mg po -NG ggt -s/p aspirin 325mg po -multiple statin allergies, no statin ordered -JULIETA with hyperkalemia, no LOS-I -ECHO ordered -Trend TROPS and serial EKGs to monitor for dynamic changes -telemetry -Cardiology consulted -Coreg HELD due to mild pulmonary edema on CXR and Elevated BNP, possible elements of CHF. ECHO ordered for evaluation B Hypertensive emergency 03/24/2018 - Present Current Assessment AND Plan Assessment: SBP 240s/80s on arrival to [facility]. With Chest pain and ?JULIETA. PLAN: -On NG drip, improving -PRN oral hydralazine as well -avoiding BB due to possible ADHF -avoiding los-inhibitor due to ?julieta. BL Cr is not known since 2017. C Chest pain 05/31/2015 - Present Current Assessment AND Plan See NSTEMI Unprioritized Coronary atherosclerosis 06/12/2015 - Present Current Assessment AND Plan See NSTEMI Essential hypertension, benign 05/16/2003 - Present Current Assessment AND Plan See hypertensive emergency. Psychiatric disorder 03/24/2018 - Present Current Assessment AND Plan Assessment: Depression, psychosocial stress due to lack of perceived empathy from children. Denies SI at time of admission. PLAN: -psychology consulted. Tobacco abuse 03/24/2018 - Present Current Assessment AND Plan Assessment: Counseled. Started smoking again about 1.5 yrs ago after the of her sister. PLAN: -counseled -continue home wellbutrin Medication and Non-Pharmacologic VTE Prophylaxis/Anticoagu lants Anticoagulant AND Antiplatelet Medications Start Dose Route Frequency Ordered Stop 03/25/18 0900 aspirin 81 mg chewable tab(s) 81 mg ORAL DAILY 03/24/182035 -- 03/24/18 2100 clopidogrel 75 mg tab(s) (PLAVIX) 75 mg ORAL DAILY 03/24/182035 -- 03/24/18 1800 heparin iv infusion (LOW DOSE ACS/NOMOGRAM) 25,000 units in NaCl 0.45% 250 mL PREMIX (Heparin Infusion + Rate Change Bolus) 0-30 mL/hr 0-3,000 Units/hr INTRAVENOUS CONTINUOUS 03/24/18 1757 -- 03/24/182044 vte non-pharmacologic prophylaxis - none indicated (mt,oh) 03/24/182044 activity - mobilize patient (mt,ky) VTE Prophylaxis: VTE prophylaxis appropriate SIGNATURE: Chiara Latham MD PATIENT NAME: Sarina Lovett DATE: March 24, 2018 TIME: 9:30 PM PAGER/CONTACT #: [phone] Previous Version Shira Carrillo RN, RN 03/25/2018 6:11 PM Addendum Nursing Progress Note Patient Name: Sarina Lovett Patient Location: [place] [address]/[facility] 024* Daily Note: 0700 Report received from off-going RN. Patient awake, sitting on edge of bed, VSS. Denies any current chest pain. 0800 Dr. Gifford at bedside to assess patient; discussed continued HTN with LIP. No new orders received. 0815 Initial assessment completed as charted; see flowsheet for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 Negative 02/27/2015 UETOH <13 02/27/2015 Clinical Global Impression--Severity of illness Scale Considering your total clinical experience with this particular population, how ill is the patient at this time (i.e. take into account patients? history, psychological circumstance, symptoms, behavior, impact of symptoms on functioning)? 3 = Mildly ill (clear symptoms, minimal distress or difficulty in social/occupational functioning) SIGNATURE: Ken Edwards DO, PATIENT NAME: Sarina Lovett DATE: March 25, 2018 TIME: 1:46 PM PAGER/CONTACT #: RT Monique, Tech 03/25/2018 8:26 PM Signed Radiology Service Progress Note PATIENT NAME: Sarina Lovett DATE OF SERVICE: March 25, 2018 TIME: 8:26 PM PATIENT IDENTITY VERIFICATION COMPLETED USING TWO (2) METHODS: Patient confirmed name verbally and ID band matches.. PATIENT GENDER DATA: Female. status: : No status: NO. PATIENT RELEVANT IMPLANT DATA REVIEWED: Not Applicable RADIOLOGY DEPARTMENT: General X-ray: Exam(s) Completed: Chest X-Ray PERIPHERAL IV DATA: Not applicable SIGNED BY: RT Stanley March 25, 2018 8:26 PM Geeta Woods RN, RN 03/26/2018 12:35 PM Addendum Nursing Progress Note Patient Name: Sarina Lovett Patient Location: [place] [address]/[place] [address]* Daily Note: 0730 Bedside report received from previous nurse. 0800 Assessment complete as noted. Pt AANDO and denies pain and sob. 0940 Dr. Dougherty at bedside and updated. 1030 Dr. Real at bedside. 1057 Dr. Haddad on phone and wants to cath patient today; make patient NPO, stop heparin. Dr. Dougherty notified and aware; please start IVF now. 1200 Reassessment complete as noted. This note was completed by: Geeta Woods RN Previous Version Marito Real MD 03/26/2018 10:17 AM Signed Dictation number: [id number] JULIETA on CKD 3 Check spot protein/Cr ratio Check renal US CKD could be due to DM nephropathy Will avoid ACEI and diuretics until cath is completed Her eGFR is >30 so she is at low risk for contrast nephropathy Daily labs HTN Start Procardia XL 30mg bid, hold for SBP<140. Stop Norvasc. Increase to 60mg bid if BP remains elevated Lisinopril can be restarted after cath completed Hyperkalemia Hold Lisinopril presently Anemia Check Fe stores Met Acidosis Will add NaHCO3 if this persists Tobacco Use She plans to quit smoking after d/c Larisa Dougherty MD 03/26/2018 11:06 AM Signed [facility] MEDIC[facility] PROGRESS NOTE Name: Sarina Lovett SERVICE DATE: 03/26/2018 Hospital Medicine/Primary Attending: Larisa Dougherty MD ASSESSMENT AND PLAN NSTEMI - cath today - plavix, ASA, BB - allergy to statins - hep gtt HTN - BP going up after ntg gtt stopped - coreg 25 BID, hydralazine increase from 25 to 75 TID - add procardia 30 BID, stop norvasc - LOS on hold - can resume after cath if creat stable Hyperlipidemia - LDL 220, chol 314 - allergy to statins (muscle pain severe) - tried many, also tried zetia, niacin etc CKD3 - LOS on hold, will get iv dye with cath - iv fluids before cath - nephro on board DM2 - amaryl on hold - check Hb A1c Depression - c/w meds Smoker - encouraged to quit SUBJECTIVE INTERVAL HPI: Feels fine, no CP or SOB. MEDICATIONS: Reviewed OBJECTIVE PHYSICAL EXAM: BP 169/33 Pulse 52 Temp (Src) 98.4 (Oral) Resp 16 Ht 5' 7 (1.70m) Wt 171 lb 8.3 oz (77.8kg) SpO2 97% BMI 26.86 kg/(m2). General - no distress, alert and oriented x 3 Lungs - clear to auscultation b/l CVS- RRR, normal heart sounds, no M/R/G Abd- soft, nontender, BS present MS - no joint swelling/tenderness, good ROM Ext - no edema DATA: Diagnostic tests reviewed for today's visit: Most recent labs Most recent imaging VTE Prophylaxis: Patient is already anti-coagulated. Disposition: Home Plan of care discussed with: Patient and RN SIGNATURE: Larisa Dougherty MD Normal [facility] High Sens Troponin Ton 03-24 High Sensitivity ANGE 30 ng/L High <12 [facility] Comment on above: Result Comment: When assessing risk for acute coronary syndromes: In patients undergoing blood draw greater than or equal to 2 hours from symptom onset, with history of very low to moderate risk and non-ischemic ECG, an initial hs-Troponin T less than 12 ng/L AND a 1 hour delta hs-Troponin T less than 3 ng/L should be considered very low risk for 30 day MACE. Performed By: #### P TT, NTBNP, HSTNT, CBCDIF, PT, CKCKMB, CMP #### [place] [phone] High Sensitivity ANGE 31 ng/L High <12 [facility] Comment on above: Result Comment: When assessing risk for acute coronary syndromes: In patients undergoing blood draw greater than or equal to 2 hours from symptom onset, with history of very low to moderate risk and non-ischemic ECG, an initial hs-Troponin T less than 12 ng/L AND a 1 hour delta hs-Troponin T less than 3 ng/L should be considered very low risk for 30 day MACE. Performed By: #### P TT, NTBNP, HSTNT, CBCDIF, PT, CKCKMB, CMP #### [place] [phone] Magnesiumon 03-24-2018 Magnesium mass conc 1.7 mg/dL Normal 1.7-2.6 [facility] Comment on above: Performed By: #### P TT, NTBNP, HSTNT, CBCDIF, PT, CKCKMB, CMP #### [place] [phone] NT Pro BNPon 03-24-2018 Protein mass conc 9108 pg/mL High <125 [facility] Comment on above: Performed By: #### P TT, NTBNP, HSTNT, CBCDIF, PT, CKCKMB, CMP #### [place] [phone] Protimeon 03-24-2018 Prothrombin time (PT) Coag time (PPP) 1.0 s Normal 0.9-1.3 [facility] Comment on above: Result Comment: Rachel min K Antagonist (VKA) Therapeutic Range: INR 2 to 3 (Target INR of 2.5) Note: For patients treated with VKA drugs, such as warfarin, the [place] [employer] 2012 Guideline recommends a therapeutic INR range of 2 to 3 (target INR of 2.5). This recommendation includes high-risk patients with antiphospholipid syndrome with previous arterial or venous thromboembolism, current-generation mechanical or bioprosthetic aortic heart valve replacement. Note: Patients with mechanical aortic valve replacement and additional risk factors for thromboembolic events (atrial fibrillation, previous thromboembolism, LV dysfunction, hypercoagulable conditions) or an older generation mechanical AVR (i.e., ball in-Cage) or any mechanical MVR should have a INR therapeutic range of 2.5 to 3.5 (target INR of 3). Agustin GH, et al. Chest 2012, 141:7S-47S Roger RA, et al. [facility] 2017, 70: 252-289 Performed By: #### P TT, NTBNP, HSTNT, CBCDIF, PT, CKCKMB, CMP #### [place] [phone] Prothrombin time (PT) Coag time (PPP) 10.4 s Normal 9.7-13.0 [facility] Comment on above: Performed By: #### P TT, NTBNP, HSTNT, CBCDIF, PT, CKCKMB, CMP #### [place] [phone] Troponin Ton 03-24-2018 Troponin T.cardiac mass conc 0.025 ng/mL Normal 0.000-0.029 [facility] Comment on above: Performed By: #### P TT, NTBNP, HSTNT, CBCDIF, PT, CKCKMB, CMP #### [place] [phone] Urinalysis with Microscopico n 03-24-2018 Bacteria LM.HPF #/area (Urine sed) Rare Critically abnormal Negative [facility] Comment on above: Performed By: #### P TT, NTBNP, HSTNT, CBCDIF, PT, CKCKMB, CMP #### [place] [phone] Bilirubin, Urine Negative Normal Negative [facility] Comment on above: Performed By: #### P TT, NTBNP, HSTNT, CBCDIF, PT, CKCKMB, CMP #### [place] [phone] Clarity Nom (U) Clear Normal Clear [facility] Comment on above: Performed By: #### P TT, NTBNP, HSTNT, CBCDIF, PT, CKCKMB, CMP #### [place] [phone] Color Nom (U) Yellow Normal Yellow [facility] Comment on above: Performed By: #### P TT, NTBNP, HSTNT, CBCDIF, PT, CKCKMB, CMP #### [address] Comments SEE COMMENT Normal [facility] Comment on above: Result Comment: Micr oscopic Examination Performed Performed By: #### P TT, NTBNP, HSTNT, CBCDIF, PT, CKCKMB, CMP #### [address] Epithelial cells LM.HPF #/area (Urine sed) SEE COMMENT Critically abnormal Negative [facility] Comment on above: Result Comment: Rare Squamous Epithelial Cells Performed By: #### P TT, NTBNP, HSTNT, CBCDIF, PT, CKCKMB, CMP #### [place] [id number] Glucose Ql (U) Negative Normal Negative [facility] Comment on above: Performed By: #### P TT, NTBNP, HSTNT, CBCDIF, PT, CKCKMB, CMP #### [address] Hemoglobin/Blood,Ur Small Critically abnormal Negative [facility] Comment on above: Performed By: #### P TT, NTBNP, HSTNT, CBCDIF, PT, CKCKMB, CMP #### [place] [phone] Ketones Ql (U) Negative Normal [facility] Comment on above: Performed By: #### P TT, NTBNP, HSTNT, CBCDIF, PT, CKCKMB, CMP #### [place] [id number] Leukest Moderate Critically abnormal [facility] Comment on above: Performed By: #### P TT, NTBNP, HSTNT, CBCDIF, PT, CKCKMB, CMP #### [place] [phone] Nitrite Ql (U) Negative Normal [facility] Comment on above: Performed By: #### P TT, NTBNP, HSTNT, CBCDIF, PT, CKCKMB, CMP #### [place] [address] pH (Bld) 5.0 Normal 5.0-8.0 [facility] Comment on above: Performed By: #### P TT, NTBNP, HSTNT, CBCDIF, PT, CKCKMB, CMP #### [place] [phone] Protein mass conc (U) 30 mg/dL Critically abnormal [facility] Comment on above: Performed By: #### P TT, NTBNP, HSTNT, CBCDIF, PT, CKCKMB, CMP #### [place] [address] RBC #/vol (U) Rare Critically abnormal [facility] Comment on above: Performed By: #### P TT, NTBNP, HSTNT, CBCDIF, PT, CKCKMB, CMP #### [place] [id number] Specific Raymond, Ur 1.015 Normal 1.005-1.030 [facility] Comment on above: Performed By: #### P TT, NTBNP, HSTNT, CBCDIF, PT, CKCKMB, CMP #### [place] [phone] Urobilinogen Qn (U) <2.0 Normal <2.0 [facility] Comment on above: Performed By: #### P TT, NTBNP, HSTNT, CBCDIF, PT, CKCKMB, CMP #### [place] [phone] WBC #/vol (Bld) 0-5 Critically abnormal Negative [facility] Comment on above: Performed By: #### P TT, NTBNP, HSTNT, CBCDIF, PT, CKCKMB, CMP #### [place] [phone] XR CHEST 1V FRONTAL PORTon 0 03-24-2018 XR CHEST 1V FRONTAL PORT * * *Final Report* * * DATE OF EXAM: Mar 24 2018 6:16PM FVX [id number] - XR CHEST 1V FRONTAL PORT / PROCEDURE REASON: Chest pain * * * * Physician Interpretation * * * * EXAMINATION: CHEST RADIOGRAPH (PORTABLE SINGLE VIEW AP) Exam Date/Time: 03/24/2018 6:16 PM CLINICAL HISTORY: Chest pain, MQ: [id number] Comparison: 05/31/2015 RESULT: 1. Lines, Tubes, and Devices: N/A 2. Lungs and Pleura: Mild bilateral basal atelectasis. No focal consolidation, overt vascular congestion, obvious pleural effusion or pneumothorax. 3. Cardiomediastinal silhouette: The trachea, mediastinum and cardio silhouette show no significant interval change. 4. Other: IMPRESSION: Mild bilateral basal atelectasis. Armature Rewinder: JENNIFER Transcribe Date/Time: Mar 24 2018 6:48P Dictated by : ELEONORA HIGGINS MD This examination was interpreted and the report reviewed and electronically signed by: ELEONORA HIGGINS MD on Mar 24 2018 6:49PM EST [id number] Normal [facility] Vital Signs Date Time Vital Sign Value Performing Clinician Chichi barry 01-27-2023 12:57-0500 Diastolic blood pressure 82 mm[Hg] Prince [facility] 01-27-2023 12:57-0500 Heart rate 82 /min Prince [facility] 01-27-2023 12:57-0500 SaO2% (BldA) [Mass fraction] 98 % Prince Garay[facility] 01-27-2023 12:57-0500 Systolic blood pressure 134 mm[Hg] Prince Christofferson [facility] 12-16-2022 13:00-0400 Diastolic blood pressure 86 mm[Hg] Prince Garayerson [facility] 12-16-2022 13:00-0400 Heart rate 76 /min Prince Lechugaofferson [facility] 12-16-2022 13:00-0400 SaO2% (BldA) [Mass fraction] 92 % Prince Cabello [facility] 12-16-2022 13:00-0400 Systolic blood pressure 140 mm[Hg] Prince Cabello [facility] 06-14-2022 11:30-0400 Body height 162.56 cm Trevor Guevara Other [facility] Other 06-14-2022 11:30-0400 Body mass index (BMI) [Ratio] 30.38 kg/m2 Trevor Guevara Other [facility] Other 06-14-2022 11:30-0400 Body weight 80.29 kg Trevor Guevara Other [facility] Other 06-14-2022 11:30-0400 Diastolic blood pressure 100 mm[Hg] Trevor Paola Other [facility] Other 06-14-2022 11:30-0400 SaO2% (BldA) [Mass fraction] 97 % Trevor Paola Other [facility] Other 06-14-2022 11:30-0400 Systolic blood pressure 152 mm[Hg] Trevor Paola Other [facility] Other Encounters Encounter Date Encounter Type Care Provider Facility Start: 03-14-2023 End: 03-14-2023 ambulatory SHAIKH CUBA Not Available Start: 02-09-2023 End: 02-09-2023 ambulatory LETHA GÓMEZ Not Available Start: 01-27-2023 End: 01-28-2023 ambulatory Prince Cabello Facility:[facility] Start: 01-27-2023 End: 01-27-2023 Patient encounter procedure Prince [facility] Start: 01-05-2023 End: 01-06-2023 ambulatory Prince Cabello Facility:[facility] Start: 01-05-2023 End: 01-05-2023 Patient encounter procedure Prince Cabello [facility] Start: 12-20-2022 ambulatory Prince Cabello Fac ility:[facility] [place] Start: 12-16-2022 End: 12-17-2022 ambulatory Prince Cabello Facility:[facility] Start: 12-16-2022 End: 12-16-2022 Patient encounter procedure Prince Cabello [facility] Start: 12-11-2022 Letter encounter Sacha norton MD Work Phone: [facility] Start: 09-22-2022 ambulatory Prince Cabello Fac ility: [facility] Start: 09-20-2022 End: 09-21-2022 ambulatory Augie MCDOWELL Facility:[id number] Start: 09-12-2022 Letter encounter Sacha norton MD Work Phone: [facility] Start: 06-14-2022 End: 06-14-2022 ambulatory Trevor Guevara Other [facility] Other Start: 06-14-2022 Office outpatient vi sit 15 minutes Trevor Guevara [facility] Start: 03-30-2022 End: 03-31-[address] TREVOR GUEVARA Facility:[facility] Start: 03-14-2022 Letter encounter Sacha norton MD Work Phone: [facility] Start: 02-12-2022 End: 02-13-[address] TREVOR GUEVARA Facility:[facility] Start: 01-20-2022 End: 01-21-[address] TREVOR GUEVARA Facility:[facility] Start: 12-20-2021 Letter encounter Sacha norton MD Work Phone: [facility] Start: 09-19-2021 Letter encounter Sacha norton MD Work Phone: [facility] Start: 06-29-2018 End: 07-07-2018 Evaluation and management of inpatient [facility] Start: 06-06-2018 End: 06-06-2018 Emergency department patient visit [facility] Start: 05-02-2018 End: 05-02-2018 Patient encounter procedure E DORISKeny BROWNE [facility] Start: 03-24-2018 End: 04-08-2018 Evaluation and management of inpatient [facility] Start: 01-20-2018 End: 01-20-2018 ambulatory UNKNOWN PROVIDER Facility:[facility] Start: 05-02-2014 Preprocedural examination done Sacha Schroeder MD Work Phone: [facility] Work Phone: Procedures Date Procedure Procedure Detail Performing Clinician Start: 04-03-2018 Antibody screen ANDREE PETERS Comment on above: Performed By: #### PTT, NTBNP, HSTNT, CB CDIF, PT, CKCKMB, CMP #### [place] [id number] [place] [phone] Start: 03-27-2018 Electrocardiogram ANDREE PETERS Start: 03-27-2018 Electrocardiogram ANDREE PETERS Start: 03-27-2018 Electrocardiogram ANDREE PETERS Start: 03-26-2018 Electrocardiogram ANDREE PETERS Start: 03-26-2018 Electrocardiogram ANDREE PETERS Start: 03-26-2018 Antibody screen ANDREE PETERS Comment on above: Performed By: #### PTT, NTBNP, HSTNT, CB CDIF, PT, CKCKMB, CMP #### [place] [phone] Start: 03-25-2018 Electrocardiogram ANDREE PETERS Start: 03-25-2018 Electrocardiogram ANDREE PETERS Start: 03-25-2018 Electrocardiogram ANDREE PETERS Start: 03-24-2018 End: 03-24-2018 Electrocardiogram ANDREE PETERS Start: 01-20-2018 INFLUENZA, INACTIVATED, INTRAMUSCULAR, NON-RECOMBINANT PROTOCOL ORDER UNKNOWN PROVIDER Start: 01-20-2018 OPHTHALMOLOGY SERVICE REQUEST UNKNOWN PROVIDER Start: 01-20-2018 RN NURSE CLINIC VISIT - BP UNKNOWN PROVI ONEL Start: 05-20-2016 History of placement of stent for coronary artery disease S/P right coronary artery (RCA) stent placement Sacha Schroeder MD Work Phone: Start: 10-15-2013 Colonoscopy Sacha Schroeder MD Work Phone: Start: 09-11-2007 History of coronary artery bypass grafting Postsurgical aortocoronary bypass status Sacha Schroeder MD Work Phone: Cholecystectomy Prince paulino Plan of Treatment Date Care Activity Detail Author Start: 08-22-2025 Tetanus vaccination Tetanus (T d or Tdap) Booster [facility] Start: 03-26-2023 Cholesterol [Mass/vo lume] in Serum or Plasma Cholesterol [facility] Start: 11-28-2022 Influenza vaccination Influenza Vacc ine (#1) [facility] Start: 10-29-2022 Influenza vaccination Influenza Vacc ine (#1) [facility] Start: 11-28-2021 Influenza vaccination Influenza Vacc ine (#1) [facility] Start: 07-08-2019 Basic metabolic 2000 panel - Serum or Plasma Basic Metabolic Panel [facility] Start: 07-08-2019 Creatinine measurement [facility] Start: 01-09-2019 Screening for malign ant neoplasm of breast Mammography [facility] Start: 10-15-2018 Screening for malign ant neoplasm of colon [facility] Start: 02-28-2013 Annual wellness visit Annual W ellness Visit (G0438) [facility] Start: 2007 RSV vaccine (optiona l 60+ years) RSV vaccine (optional 60+ years) [facility] Start: 1997 Measurement of occul t blood in single stool specimen FIT [facility] Start: 1997 Shingles (RZV) Vacci ne (1 of 2) Shingles (RZV) Vacc[facility] 2) [facility] Start: 1947 COVID-19 Vaccine (#1) COVID-19 Vacci ne (#1) [facility] Immunizations Immunization Date Immunization Notes Care Provider [facility] 01-20-2018 Seasonal trivalent influenza vaccine, adjuvanted, preservative free Sacha Schroeder MD Work Phone: [facility] 01-20-2018 influenza virus vaccine, unspecified formulation Sacha Schroeder MD Work Phone: [facility] 04-28-2017 pneumococcal polysaccharide vaccine, 23 valent Sacha Schroeder MD Work Phone: [facility] 02-02-2016 influenza, seasonal, injectable, preservative free Sacha Schroeder MD Work Phone: [facility] 09-29-2015 pneumococcal conjuga te vaccine, 13 valent Sacha Schroeder MD Work Phone: [facility] 08-23-2015 tetanus toxoid, redu anh diphtheria toxoid, and acellular pertussis vaccine, adsorbed Sacha Schroeder MD Work Phone: [facility] Work Phone: 12-05-2013 influenza virus vaccine, unspecified formulation Sacha Schroeder MD Work Phone: [facility] Payers Date Payer Category Payer Medicare [id number] 2014 Medicare ANTHEM - MEDICAR E ANTHEM MEDICARE [id number] 2014-Present [address] [place] [address] Medicare HMO [id number] 1959 Self-pay [id number] 1959 Unknown [id number] 1947 Unknown [id number] 1947 Unknown [id number] 1947 Unknown [id number] 1947 Unknown [id number] 1947 Unknown [id number] 1947 Unknown [id number] 1947 Unknown [id number] 1947 Unknown [id number] 1947 Unknown [id number] 1947 Unknown [id number] Unknown [id number] Unknown [facility] Social History Date Type Detail Facility Start: 07-09-2015 End: 01-27-2023 Tobacco smoking status NHIS Ex-smoker [facility] Start: 07-18-1960 End: 07-18-2013 History of tobacco use Current smoker [facility] Start: 07-18-1960 End: 07-18-2013 History of tobacco use Cigarette Smoker [facility] Start: 07-09-2015 End: 01-20-2018 Cigarettes smoked current (pack per day) - Reported 1 [facility] Start: 07-09-2015 Tobacco use and exposure Smokeless tobacco non-user [facility] Start: 01-20-2018 Alcohol intake Current non-dr sample sewer of alcohol (finding) [facility] Start: 02-21-2014 Tobacco Comment quite july 18, 2013 [facility] Start: 1945 [facility] Medical Equipment Procedure Code Equipment Code Equipment Origin al Text Equipment Identifier Dates Lens Posterior Chamber 20.0 Intraocular Sa60at Sa60at 20.0 - [id number] Start: 02-19-2016 Lens Posterior Chamber 20.0 Intraocular Sa60at Sa60at 20.0 - [id number] Start: 03-03-2016 Goals Date Patient Goal Desired Activity /State Personal health goal Comment on above: Formatting of this n ote might be different from the original. Date 02/02/16 Arm size 33.5 cm Cuff size large adult Personal health goal Comment on above: Formatting of this n ote might be different from the original. Date 02/02/16 Arm size 33.5 cm Cuff size large adult Functional Status Date Assessment Result Facility 01-27-2023 Functional Status No [facility] 12-16-2022 Functional Status No [facility] Clinical Note 01-05-2023 Note Date & Type Note Facility 01-05-2023 Note Echocardiology Procedure Exam Date/Time Accession # Ordering Echo Transthoracic 01/05/2023 10:17 EST [id number] Destiney DE LEÓN, Prince Castro CPT code 04009 [id number] Reason for Exam (Echo Transthoracic Complete) I25.10;CAD Coronary artery disease Report [facility] [address] [place] [address] Adult Echocardiogram Report Name: SARINA VILLEGAS Study Date: 01/05/2023 08:53 AM BP: 143/90 mmHg Patient Location: [facility] HR: 70 : 1945 Gender: Female Height: 63 in Age: 77 yrs Ethnicity: [facility] Weight: 175 lb Reason For Study: CAD Coronary artery disease BSA: 1.8 m2 History: HTN,Stents Ordering Physician: Destiney^Prince^D. Referring Physician: Prince Cabello Performed By: Helen Godinez, CINDYMS, RVT Interpretation Summary No comparison study is available. Upper septal hypertrophy (sigmoid septum), normal variant. No systolic anterior motion of mitral vlave noted at baseline. Ejection Fraction = 60-65%. The left ventricular wall motion is normal. Grade I diastolic dysfunction, (abnormal relaxation pattern). There was insufficient TR detected to calculate RV systolic pressure. Procedure A complete two-dimensional transthoracic echocardiogram was performed (2D, M-mode, spectral and color flow Doppler). Study quality is fair. I WMSI = 1.00 % Normal = 100 Segments Size X - Cannot 2 - 1-2 small Interpret 1 - Normal Hypokinetic 3 - Akinetic 4 - Dyskinetic3-5 moderate 5 - Aneurysmal 6-14 large 15-16 diffuse Left Ventricle Echocardiology Report The left ventricle is normal in size. Upper septal hypertrophy (sigmoid septum), normal variant. Ejection Fraction = 60- 65%. The left ventricular wall motion is normal. Grade I diastolic dysfunction, (abnormal relaxation pattern). Left Atrium The left atrial size is normal. Right Atrium Right atrial size is normal. Right Ventricle The right ventricular systolic function is normal. Aortic Valve The aortic valve is trileaflet. Mitral Valve Mitral valve structure is normal. Tricuspid Valve Structurally normal tricuspid valve. There was insufficient TR detected to calculate RV systolic pressure. Pulmonic Valve The pulmonic valve is normal. Mild pulmonic valvular regurgitation. Arteries The aortic root is normal in size. Venous The inferior vena cava is normal in size, and collapses normally with respiration. Effusion There is no pericardial effusion. MMode/2D Measurements & Calculations RVDd: 3.5 cm LVIDd: 4.5 cm FS: 19.5 % Ao root diam: 3.3 cm IVSd: 1.3 cm LVIDs: 3.6 cm EDV(Teich): 93.4 ml Ao root area: 8.7 cm2 LVPWd: 1.3 cm ESV(Teich): 55.9 ml LA dimension: 3.9 cm EF(Teich): 40.2 % asc Aorta Diam: 3.2 cm LVOT diam: 2.2 cm LVLd ap4: 8.0 cm EDV(MOD-sp2): 48.0 ml LVOT area: 3.9 cm2 EDV(MOD-sp4): 75.8 ml ESV(MOD-sp2): 16.7 ml LVLs ap4: 6.3 cm EF(MOD-sp2): 65.2 % ESV(MOD-sp4): 27.4 ml EF(MOD-sp4): 63.9 % SV(MOD-sp4): 48.4 ml TAPSE: 2.0 cm IVC Diam: 1.9 cm RVIDd/LVIDd: 0.77 EF (MOD-bp): 63.4 % LA Vol Index: 16.2 ml/m2 Doppler Measurements & Calculations Echocardiology Report MV E max chago: 41.6 cm/sec MV dec time: 0.21 sec Ao V2 max: 104.0 cm/sec LV V1 max P.6 mmHg MV A max chago: 87.5 cm/sec Ao max P.3 mmHg LV V1 mean P.0 mmHg MV E/A: 0.48 Ao V2 mean: 70.0 cm/sec LV V1 max: 80.8 cm/sec Lat Peak E' Chago: 5.0 cm/sec Ao mean P.0 mmHg LV V1 mean: 54.5 cm/sec E/E' Lat: 8.3 Ao V2 VTI: 22.1 cm LV V1 VTI: 19.1 cm Med Peak E' Chago: 5.1 cm/sec E/E' Med: 8.1 PHILIPPE(I,D): 3.4 cm2 PHILIPPE(V,D): 3.0 cm2 SV(LVOT): 74.1 ml RAP systole: 3.0 mmHg AV VR: 0.78 PHILIPPE(VTI)/BSA_phl: 1.8 FINAL REPORT Dictated: 01/05/2023 8:53 am Nacho ADAMS MD Signed (Electronic Signature): 01/05/2023 10:43 am Signed by: Nacho ADAMS MD Transcribed by: NAZIA Technologist: LASHAY [facility] Evaluation note 06-14-2022 Note Date & Type Note Facility 06-14-2022 Evaluation note Encounter Date Diagnosis Assessment Notes May, Dental infection (ICD-10 - K04.7) Discussed differential of [place] palsy v. dental issue. Tooth fragment appears inflammed. She will contact her dentist and let us know what they say. [facility] [employer] Other Evaluation + Plan note Radiology Note Date & Type Note Facility Evaluation + Plan note Future Appointments Appointment Date:01/27/2023 01:15:00 PM Scheduled Provider:Prince Cabello MD Location:[facility]Cardiology [facility] Appointment Type:Cardiology Follow Up ([facility]) Future Scheduled TestsEcho Transthoracic Complete 12/16/22US Carotid Duplex Bilateral 12/16/22 [facility] Evaluation + Plan note Note Date & Type Note Facility Evaluation + Plan note Future Appointments Appointment Date:01/27/2023 01:15:00 PM Scheduled Provider:Prince Cabello MD Location:[facility] Appointment Type:Cardiology Follow Up ([facility]) [facility] Evaluation + Plan note Note Date & Type Note Facility Evaluation + Plan note Future Appointments Appointment Date:07/22/2023 01:15:00 PM Scheduled Provider:Prince Cabello MD Location:[facility] Appointment Type:Cardiology Follow Up ([facility]) [facility] History general Narrative - Reported Note Date & Type Note Facility History general Narrative - Reported Type Medical History Hypertension Medical History Hyperlipidemia [facility] [employer] Other Hospital course Narrative Note Date & Type Note Facility Hospital course Narrative No data available for this section [facility] Hospital Discharge instructions Note Date & Type Note Facility Hospital Discharge instructions No data available for this section [facility] Progress note Note Date & Type Note Facility Progress note No data available for this section [facility] Summary Purpose Family History No Family History Records FoundNo Family History Records FoundNo Family History Records FoundNo Family History Records Found No data available for this section No data available for this section No data available for this section No data available for this section No Family History Records FoundNo Family History Records Found Advance Directives No Advanced Directives Records FoundLatest Code Status on File Code Status Date Activated Date Inactivated Comments Full Code 02/23/2017 5:51 AM 02/24/2017 2:25 PM Full Code 06/14/2016 11:27 PM 06/16/2016 1:53 PM Full Code 07/09/2015 2:50 PM 07/11/2015 6:10 PM Full Code 02/21/2014 2:08 AM 02/21/2014 10:19 PM Latest Code Status on File Code Status Date Activated Date Inactivated Comments Full Code 02/23/2017 5:51 AM 02/24/2017 2:25 PM Code Status History Code Status Date Activated Date Inactivated Comments Full Code 06/14/2016 11:27 PM 06/16/2016 1:53 PM Full Code 07/09/2015 2:50 PM 07/11/2015 6:10 PM Full Code 02/21/2014 2:08 AM 02/21/2014 10:19 PM Additional Source Comments INFORMATION SOURCE (unrecogn ized section and content) DATE CREATED AUTHOR 06/05/2018 [facility] DATE CREATED AUTHOR AUTHOR'S ORGANIZ ATION 07/18/2018 [facility] DATE CREATED AUTHOR AUTHOR'S ORGANIZ ATION 05/17/2021 [facility] DATE CREATED AUTHOR AUTHOR'S ORGANIZ ATION 04/01/2022 [facility] DATE CREATED AUTHOR AUTHOR'S ORGANIZ ATION 01/29/2023 [facility] DATE CREATED AUTHOR AUTHOR'S ORGANIZ ATION 03/15/2023 [facility] EPIC Care Teams (unrecognized sec tion and content) [employer] Relationship Specialty Start Date End Date Sacha Schroeder MD [facility] [place] [address] PCP - General Family Medicine 03/27/14 [employer] Relationship Specialty Start Date End Date Sacha Schroeder MD [facility] [place] [address] PCP - General Family Medicine 03/27/14 [employer] Relationship Specialty Start Date End Date Sacha Schroeder MD [address] [place] [address] PCP - General Family Medicine 03/27/14 REASON FOR VISIT (unrecogniz ed section and content) Side of Face Swollen FOR RECORDS PERTAINING TO PATIENTS WHO ARE OR HAVE BEEN ENROLLED IN A CHEMICAL DEPENDENCY/SUBSTANCEABUSE PROGRAM, SOME INFORMATION MAY BE OMITTED. This clinical summary was aggregated from multiple sources. Caution should be exercised in using it in the provision of clinical care. This summary normalizes information from multiple sources, and as a consequence, information in this document may materially change the coding, format and clinical context of patient data. In addition, data may be omitted in some cases. CLINICAL DECISIONS SHOULD BE BASED ON THE PRIMARY CLINICAL RECORDS. [employer] provides no warranty or guarantee of the accuracy or completeness of information in this document.
--- OUTSIDE RECORDS SUMMARY | 2023-03-16 16:30 | XMS_ITS | CCD ---
Author Name Unknown Address [address] [place] [address] Organization [facility] Care Team Providers Care Photonics Engineering Technologist Name Role Phone Joy BROWNE DORIS Attending [...] Unavailable GUEVARA, DR TREVOR Hamilton Attending Unavailable [place], DR MICHELE Vizcarra Consulting Unavailable GUEVARA, DR [...] adverse reactions to drug (disorder) 03-28-19 04 [facility] Repository (2 sources) OTHER; Translations: [OTHER] Propensity to adverse reactions (disorder) 02-03-20 06 [facility] Repository (6 sources) atorvastatin; Translations: [ATORVASTATIN] Drug Allergy 06-18-19 16 [facility] ezetimibe; Translations: [EZETIMIBE] Drug Allergy 05-21-19 17 [facility] Repository (6 sources) Hmg-Coa Reductase Inhibitors (Statins); Translations: [STATINS] Propensity to adverse reactions to drug (disorder) 09-05-19 08 Myopathy [facility] Repository (6 sources) Nitroglycerin; Translations: [NITROGLYCERIN] Drug Allergy 06-18-19 16 [facility] Rep[facility] (6 sources) pitavastatin; Translations: [PITAVASTATIN] Drug Allergy 09-02-19 17 [facility] Rep[facility] (6 sources) rosuvastatin; Translations: [ROSUVASTATIN] Drug Allergy 09-04-19 16 [facility] ([facility] sources) Simvastatin; Translations: [SIMVASTATIN] Drug Allergy 06-18-19 16 [facility] ([facility] sources) Sulfonamides (Antibiotic); Translations: [SULFA ANTIBIOTICS] Propensity to adverse reactions to drug (disorder) 09-02-19 08 [facility] [facility] Repository (6 sources) BANDAGE TAPE; Translations: [BANDAGE TAPE] Propensity to adverse reactions (disorder) 09-17-19 15 [facility] ([facility] source) Cephalosporins (Antibiotic) Drug allergy (disorder) [facility] Repository (1 source) Penicillins Drug allergy (disorder) 08-31-19 13 [facility] Repository (5 sources) Penicillin; Translations: [penicillin] Drug Allergy hives, Eruption of skin (disorder) [facility] Medications Current Medications Medication Drug Class(es) Dates Sig (Normalized) Sig (Original) [id number] 200 actuat albuterol 0.09 mg/actuat metered dose [...] Unstable angina; Translations: [Atherosclerotic heart disease of [place] coronary artery with unstable angina pectoris] Onset: [...] Interpretation Reference Range Facility Heart and Vascular Office/[facility] Noteon 01-27-2023 Heart and Vascular [...] 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 Substitutions may have occurred due to the inherent limitations of voice recognition and artificial intelligence software. Documentation services were performed after patient or guardian consented to allow [employer] to record this visit. BERTRAM regulatory submissions specialist and provider reviewed before signing. BERTRAM: Mary Gardner Follow-up No qualifying data available Problem List/Past Medical History Ongoing No qualifying data Historical Coronary artery disease Hyperlipidemia Hypertension Hypertension Procedure/Surgical History Cholecystectomy. Medications amlodipine aspirin 81 mg Oral EC Tab citalopram levothyroxine losartan simvastatin Allergies penicillin (Rash) Social History Tobacco Former smoker, quit more than 30 days ago Tobacco Use:., 01/27/2023 [facility] Comment on above: Result Comment: Elec tronically Signed By: Destiney DE LEÓN, Prince Castro\.br\Date and Time Signed: 01/27/23 19:48 EST\.br\Electronically Co-Signed By: Mary Gardner\.br\Date and Time Co-Signed: 01/27/23 15:10 EST Physician Orderon 01-27-2023 Physician Order [id number]# 1.00TIFF [facility] Heart and Vascular Office/Cl inic Noteon [...] artery disease) (I25.10: Atherosclerotic heart disease of [place] coronary artery without angina pectoris) Sarina Villegas [...] hear. Follow up in 6 weeks in [place]. Portions of this record may have been created with voice recognition artificial intelligence software, specifically [employer], [employer] and or [employer]. Substitutions may have occurred due to the inherent limitations of voice recognition and artificial intelligence software. Documentation services were performed after patient or guardian consented to allow [employer] to record this visit. BERTRAM regulatory submissions specialist and provider reviewed before signing. BERTRAM: Abran Nick. Follow-up No qualifying data available Problem List/Past Medical History Ongoing No qualifying data Historical Coronary artery disease Hyperlipidemia Hypertension Hypertension Procedure/Surgical History Cholecystectomy. Medications amlodipine aspirin 81 mg Oral EC Tab citalopram levothyroxine losartan simvastatin Allergies penicillin (Rash) Social History Tobacco Former smoker, quit more than 30 days ago Tobacco Use:., 12/16/2022 [facility] Comment on above: Result Comment: Elec tronically Signed By: Destiney DE LEÓN, Prince Castro\.br\Date and Time Signed: 01/23/23 19:23 EST\.br\Electronically Co-Signed By: Michelle Nick\.br\Date and Time Co-Signed: 12/16/22 14:43 EDT\.br\Electronically Co-Signed By: Michelle Nick\.br\Date and Time Co-Signed: 12/16/22 14:44 EDT Consent for Treatmenton 11-0 Consent for Treatment [id number]#1 .00TIFF [facility] US Carotid Duplex Bilateralo n 01-05-2023 [...] Criteria Committee. Vascular Medicine 2020; https://journals.rylee pub.com/doi/full/10.1 [id number] Ordering Provider: Prince Cabello FINAL REPORT Dictated: 01/05/2023 10:56 am Carlos Mcmillan MD, V. Signed (Electronic Signature): 01/05/2023 10:56 am Signed by: Carlos Mcmillan MD, V. Transcribed by: SALVATORE Technologist: [place] [facility] Transfer Inon 12-22-2022 Transfer In [id number]#1 .00TIFF [facility] Transfer In [id number]#1 .00TIFF [facility] Insurance Correspondenceon Insurance Correspondence [id number]# 1.00TIFF [facility] Physician Orderon 12-17-2022 Physician Order [id number]# 1.00TIFF [facility] Consent for Treatmenton 11-28 Consent for Treatment [id number]#1 .00TIFF Normal [facility] US THYROIDon 03-30-2022 US THYROID EXAMINATION: [...] tumor or atypical lymph node TI-RADS: The [employer] TI-RADS committee's white paper recommendations for thyroid lesions classified as TR3 (mildly suspicious) are listed below: > 1.5 cm. Follow-up ultrasound in 1, 3, and 5 years. > 2.5 cm. FNA. J. Am Janelle Radiol 2017;14:587-595. Electronically authenticated by: MICHELE GIBSON Date: 2022-03-30 11:59 Normal [facility] CT NECK ST W CONon 2 CT [...] CAMILLE CARTER Date: 2022-02-12 18:07 Normal [facility] CBC AUTO DIFFon 01-20-2022 BASO # 0.1 103/ul Normal 0.0-0.1 [facility] Comment on above: Performed By: #### D ATCBC #### [facility] [address] [place] [address] Dr. Cabrera Gifford Basophils/100 WBC (Bld) 0.7 % Normal 0.2-2.0 [facility] Comment on above: Performed By: #### D ATCBC #### [facility] [address] [place] [address] Dr. Cabrera Gifford EO # 0.3 103/ul Normal 0.0-0.7 [facility] Comment on above: Performed By: #### D ATCBC #### [facility] [address] [address] [address] Cabrera Gifford Eosinophils/100 WBC (Bld) 3.7 % Normal 0.9-7.0 [facility] Comment on above: Performed By: #### D ATCBC #### [facility] [address] [place] [address] Dr. Cabrera Gifford Erythrocyte distribution width (RBC) [Ratio] 12.5 % Normal 11.0-15.0 [facility] Comment on above: Performed By: #### D ATCBC #### [facility] [address] [place] [address] Dr. Cabrera Gifford Hematocrit (Bld) [Volume fraction] 38.9 % Normal 36.0-48.0 [facility] Comment on above: Performed By: #### D ATCBC #### [facility] [address] [address] [address] Cabrera Gifford Hemoglobin (Bld) [Mass/Vol] 12.8 g/dL Normal 12.0-16.0 [facility] Comment on above: Performed By: #### D ATCBC #### [facility] [address] [address] [address] Cabrera Gifford IG # 0.02 10e3/ul Normal 0.00-0.03 [facility] Comment on above: Performed By: #### D ATCBC #### [facility] [address] [place] [address] Dr. Cabrera Gifford IG % 0.3 % Normal 0.0-0.5 [facility] Comment on above: Performed By: #### D ATCBC #### [facility] [address] [place] [address] Dr. Cabrera Gifford LYMPH # 1.4 103/ul Normal 1.2-3.8 [facility] Comment on above: Performed By: #### D ATCBC #### [facility] [address] [place] [address] Dr. Cabrera Gifford Lymphocytes/100 WBC (Bld) 20.4 % Critically low 20.5-60.0 [facility] Comment on above: Performed By: #### D ATCBC #### [facility] [address] [place] [address] Dr. Cabrera Gifford MCH (RBC) [Entitic mass] 29.1 pg Normal 26.7-34.0 [facility] Comment on above: Performed By: #### D ATCBC #### [facility] [address] [place] [address] Dr. Cabrera Gifford MCHC (RBC) [Mass/Vol] 32.9 g/dL Normal 29.9-35.2 [facility] Comment on above: Performed By: #### D ATCBC #### [facility] [address] [address] [address] Cabrera Gifford MCV (RBC) [Entitic vol] 88.4 fL Normal 81.0-99.0 [facility] Comment on above: Performed By: #### D ATCBC #### [facility] [address] [address] [address] Cabrera Gifford MONO # 0.6 103/ul Normal 0.3-0.8 [facility] Comment on above: Performed By: #### D ATCBC #### [facility] [address] [place] [address] Dr. Cabrera Gifford Monocytes/100 WBC (Bld) 8.2 % Normal 1.7-12.0 [facility] Comment on above: Performed By: #### D ATCBC #### [facility] [address] [place] [address] Dr. Cabrera Gifford NEUT # 4.5 103/ul Normal 1.4-6.5 [facility] Comment on above: Performed By: #### D ATCBC #### [facility] [address] [place] [address] Dr. Cabrera Gifford Neutrophils/100 WBC (Bld) 66.7 % Normal 43.0-75.0 [facility] Comment on above: Performed By: #### D ATCBC #### [facility] [address] [place] [address] Dr. Cabrera Gifford Platelet mean volume (Bld) [Entitic vol] 10.8 fL Normal 9.5-13.5 [facility] Comment on above: Performed By: #### D ATCBC #### [facility] [address] [place] [address] Dr. Cabrera Gifford PLT 210 103/ul Normal 150-450 [facility] Comment on above: Performed By: #### D ATCBC #### [facility] [address] [place] [address] Dr. Cabrera Gifford RBC 4.40 106/ul Normal 4.20-5.40 [facility] Comment on above: Performed By: #### D ATCBC #### [facility] [address] [place] [address] Dr. Cabrrea Gifford WBC 6.8 103/ul Normal 4.0-11.0 [facility] Comment on above: Performed By: #### D ATCBC #### [facility] [address] [address] [address] Cabrera Gifford EDWIN- BMP WITH LIPIDon 2021 Anion gap [Moles/Vol] 11.8 mmol/L Normal [facility] Comment on above: Performed By: #### D ATBMP #### [facility] [address] [address] [address] Cabrera Gifford Calcium [Mass/Vol] 9.4 mg/dL Normal 8.5-10.1 [facility] Comment on above: Performed By: #### D ATBMP #### [facility] [address] [address] [address] Cabrera Gifford Chloride [Moles/Vol] 102 mmol/L Normal 98-107 [facility] Comment on above: Performed By: #### D ATBMP #### [facility] [address] [address] [address] Cabrera Gifford Cholesterol [Mass/Vol] 161 mg/dL Normal <=200 [facility] Comment on above: Performed By: #### D ATBMP #### [facility] [address] [address] [address] Cabrera Gifford Cholesterol in HDL [Mass/Vol] 66 mg/dL Critically high 40-60 [facility] Comment on above: Performed By: #### D ATBMP #### [facility] [address] [address] [address] Cabrera Gifford Cholesterol in LDL [Mass/Vol] 77.2 mg/dL Normal [facility] Comment on above: Performed By: #### D ATBMP #### [facility] [address] [address] [address] Cabrera Gifford CO2 [Moles/Vol] 30.9 mmol/L Normal 21.0-32.0 [facility] Comment on above: Performed By: #### D ATBMP #### [facility] [address] [address] [address] Cabrera Gifford Creatinine [Mass/Vol] 0.79 mg/dL Normal 0.55-1.02 [facility] Comment on above: Performed By: #### D ATBMP #### [facility] [address] [address] [address] Cabrera Gifford EGFR-AF TURKS AND CAICOS ISLANDER >60 Normal >=60 [facility] Comment on above: Performed By: #### D ATBMP #### [facility] [address] [address] [address] Cabrera Gifford EGFR-NON AF TURKS AND CAICOS ISLANDER >60 Normal >=60 [facility] Comment on above: Performed By: #### D ATBMP #### [facility] [address] [address] [address] Cabrera Gifford Glucose [Mass/Vol] 103 mg/dL Normal 74-106 [facility] Comment on above: Performed By: #### D ATBMP #### [facility] [address] [address] [address] Cabrera Gifford HDL NORMAL > or = 60 mg/dl - LO W CARDIOVASCULAR RISK <40 mg/dl - HIGH CARDIOVASCULAR RISK Normal [facility] Comment on above: Performed By: #### D ATBMP #### [facility] [address] [address] [address] Cabrera Gifford LDL CALC NORMAL SEE BELOW Normal [facility] Comment on above: Result Comment: <100 mg/dl OPTIMAL 100 - 129 mg/dl NEAR OR ABOVE OPTIMAL 130 - 159 mg/dl BORDERLINE HIGH 160 - 189 mg/dl HIGH >190 mg/dl VERY HIGH Performed By: #### D ATBMP #### [facility] [address] [address] [address] Cabrera Gifford Potassium [Moles/Vol] 3.7 mmol/L Normal 3.5-5.1 [facility] Comment on above: Performed By: #### D ATBMP #### [facility] [address] [address] [address] Cabrera Gifford Sodium [Moles/Vol] 141 mmol/L Normal 136-145 [facility] Comment on above: Performed By: #### D ATBMP #### [facility] [address] [address] [address] Cabrera Gifford Triglyceride [Mass/Vol] 89 mg/dL Normal <=150 [facility] Comment on above: Performed By: #### D ATBMP #### [facility] [address] [place], [place] [address] Dr. Cabrera Gifford Urea nitrogen [Mass/Vol] 17.0 mg/dL Normal 7.0-18.0 [facility] Comment on above: Performed By: #### D ATBMP #### [facility] [address] [address] [address] Cabrera Gifford Urea nitrogen/Creatinine [Mass ratio] 21.5 mg/mg Normal [facility] Comment on above: Performed By: #### D ATBMP #### [facility] [address] [address] [address] Cabrera Gifford VLDL CALC 17.8 mg/dL Normal [facility] Comment on above: Performed By: #### D ATBMP #### [facility] [address] [address] [address] Cabrera Gifford MG MAMM SCREEN 3D EVIE CADon 01-20-2022 MG MAMM SCREEN 3D EVIE CAD Patient: SARINA VILLEGAS Exam Date: 01/20/2022 : 1945 Gender:F Ordering : DR TREVOR GUEVARA M.D. Admission #: [id number] Family : Order #: [id number] CLICK HERE TO VIEW EXAM RADIOLOGY REPORT [...] No Treatments None Family Cancers None LOCATION: [facility] BREAST COMPOSITION: Scattered areas fibroglandular density. FINDINGS: [...] Carter M.D. on 01/20/2022 at 13:29 Normal [facility] US CAROTID ART BILon 022 US CAROTID [...] by: CAMILLE CARTER Date: 2022-01-20 16:26 Normal [facility] CNCOon 07-10-2018 CNCO Letter Text Normal [facility] CBC and Differentialon 07-07 Abs Baso <0.03 Normal <0.11 [facility] Comment on above: Performed By: #### P TT, NTBNP, HSTNT, CBCDIF, PT, CKCKMB, CMP #### [place] [address] Abs [place] 0.92 k/uL High <0.87 [facility] Comment on above: Performed By: #### P TT, NTBNP, HSTNT, CBCDIF, PT, CKCKMB, CMP #### [place] [address] Abs Neut 9.65 k/uL High 1.45-7.50 [facility] Comment on above: Performed By: #### P TT, NTBNP, HSTNT, CBCDIF, PT, CKCKMB, CMP #### [place] [address] Basophils/100 WBC (Bld) 0.0 % Normal [facility] Comment on above: Performed By: #### P TT, NTBNP, HSTNT, CBCDIF, PT, CKCKMB, CMP #### [place] [address] DTYPE Auto Diff Normal [facility] Comment on above: Performed By: #### P TT, NTBNP, HSTNT, CBCDIF, PT, CKCKMB, CMP #### [place] [address] Eosinophils #/vol (Bld) 0.15 10*3/uL Normal <0.46 [facility] Comment on above: Performed By: #### P TT, NTBNP, HSTNT, CBCDIF, PT, CKCKMB, CMP #### [place] [address] Eosinophils/100 WBC (Bld) 1.2 % Normal [facility] Comment on above: Performed By: #### P TT, NTBNP, HSTNT, CBCDIF, PT, CKCKMB, CMP #### [place] [address] Erythrocyte distribution width Ratio (RBC) 14.6 % Normal 11.5-15.0 [facility] Comment on above: Performed By: #### P TT, NTBNP, HSTNT, CBCDIF, PT, CKCKMB, CMP #### [place] [address] Hematocrit Volume Fraction (Bld) 38.5 % Normal 36.0-46.0 [facility] Comment on above: Performed By: #### P TT, NTBNP, HSTNT, CBCDIF, PT, CKCKMB, CMP #### [place] [address] Hemoglobin mass conc (Bld) 12.0 g/dL Normal 11.5-15.5 [facility] Comment on above: Performed By: #### P TT, NTBNP, HSTNT, CBCDIF, PT, CKCKMB, CMP #### [place] [address] Lymphocytes #/vol (Bld) 1.66 10*3/uL Normal 1.00-4.00 [facility] Comment on above: Performed By: #### P TT, NTBNP, HSTNT, CBCDIF, PT, CKCKMB, CMP #### [place] [address] Lymphocytes/100 WBC (Bld) 13.4 % Normal [facility] Comment on above: Performed By: #### P TT, NTBNP, HSTNT, CBCDIF, PT, CKCKMB, CMP #### [place] [address] MCH Entitic mass (RBC) 26.8 pG Normal 26.0-34.0 [facility] Comment on above: Performed By: #### P TT, NTBNP, HSTNT, CBCDIF, PT, CKCKMB, CMP #### [place] [address] MCHC mass conc (RBC) 31.2 g/dL Normal 30.5-36.0 [facility] Comment on above: Performed By: #### P TT, NTBNP, HSTNT, CBCDIF, PT, CKCKMB, CMP #### [place] [id number] MCV Entitic volume (RBC) 86.1 fL Normal 80.0-100.0 [facility] Comment on above: Performed By: #### P TT, NTBNP, HSTNT, CBCDIF, PT, CKCKMB, CMP #### [address] Monocytes/100 WBC (Bld) 7.4 % Normal [facility] Comment on above: Performed By: #### P TT, NTBNP, HSTNT, CBCDIF, PT, CKCKMB, CMP #### [place] [phone] Neutrophils/100 WBC (Bld) 78.0 % Normal [facility] Comment on above: Performed By: #### P TT, NTBNP, HSTNT, CBCDIF, PT, CKCKMB, CMP #### [place] [phone] Platelet mean volume Entitic volume (Bld) 9.9 fL Normal 9.0-12.7 [facility] Comment on above: Performed By: #### P TT, NTBNP, HSTNT, CBCDIF, PT, CKCKMB, CMP #### [place] [phone] Platelets #/vol (Bld) 241 10*3/uL Normal 150-400 [facility] Comment on above: Performed By: #### P TT, NTBNP, HSTNT, CBCDIF, PT, CKCKMB, CMP #### [place] [phone] RBC #/vol (Bld) 4.47 10*6/uL Normal 3.90-5.20 [facility] Comment on above: Performed By: #### P TT, NTBNP, HSTNT, CBCDIF, PT, CKCKMB, CMP #### [place] [phone] WBC #/vol (Bld) 12.38 10*3/uL High 3.70-11.00 [facility] Comment on above: Performed By: #### P TT, NTBNP, HSTNT, CBCDIF, PT, CKCKMB, CMP #### [phone] CNDSon 07-07-2018 CNDS HNO ID: [id number] Author: Mendez Bshara Service: General Internal Medicine [...] Out FOLLOW-UP APPOINTMENTS ALREADY SCHEDULED WITH A [facility] PROVIDER: Future Appointments Date Time Provider Department Center 11/02/2018 11:30 AM Joy [facility] ALLERGIES Allergen Reactions - Statins [...] DATE: July 07, 2018 TIME: 9:48 AM [facility] CONSULT PROGon 07-07-2018 Protein mass conc HNO ID: [id number] Author: Clif Dhillon Service: Hypertension AND Nephrology [...] weeks ? Clif Jarvis MD [facility] Normal [facility] Comp Metabolic Panelon 07-07 Albumin mass conc 3.6 g/dL Normal 3.5-5.0 [facility] Comment on above: Performed By: #### P TT, NTBNP, HSTNT, CBCDIF, PT, CKCKMB, CMP #### [address] [address] ALP enzyme act/vol 83 U/L Normal 34-123 [facility] Comment on above: Performed By: #### P TT, NTBNP, HSTNT, CBCDIF, PT, CKCKMB, CMP #### [address] [address] ALT enzyme act/vol 12 U/L Normal 0-45 [facility] Comment on above: Performed By: #### P TT, NTBNP, HSTNT, CBCDIF, PT, CKCKMB, CMP #### [place] [phone] Anion gap molar conc 15 mmol/L Normal 9-18 [facility] Comment on above: Performed By: #### P TT, NTBNP, HSTNT, CBCDIF, PT, CKCKMB, CMP #### [place] [phone] AST enzyme act/vol 10 U/L Normal 7-40 [facility] Comment on above: Performed By: #### P TT, NTBNP, HSTNT, CBCDIF, PT, CKCKMB, CMP #### [address] Bilirubin mass conc 0.3 mg/dL Normal 0.2-1.3 [facility] Comment on above: Performed By: #### P TT, NTBNP, HSTNT, CBCDIF, PT, CKCKMB, CMP #### [place] [phone] Calcium mass conc 8.7 mg/dL Normal 8.5-10.5 [facility] Comment on above: Performed By: #### P TT, NTBNP, HSTNT, CBCDIF, PT, CKCKMB, CMP #### [place] [phone] Chloride molar conc 90 mmol/L Low 98-110 [facility] Comment on above: Performed By: #### P TT, NTBNP, HSTNT, CBCDIF, PT, CKCKMB, CMP #### [place] [phone] CO2 molar conc 33 mmol/L High 23-32 [facility] Comment on above: Performed By: #### P TT, NTBNP, HSTNT, CBCDIF, PT, CKCKMB, CMP #### [place] [phone] Creatinine mass conc 1.54 mg/dL High 0.70-1.40 [facility] Comment on above: Performed By: #### P TT, NTBNP, HSTNT, CBCDIF, PT, CKCKMB, CMP #### [place] [phone] eGFR- Amer. 40 Low >60 [facility] Comment on above: Performed By: #### P TT, NTBNP, HSTNT, CBCDIF, PT, CKCKMB, CMP #### [place] [phone] GFR/1.73 sq M predicted among non-blacks MDRD vol rate/area (S/P/Bld) 33 . Low >60 [facility] Comment on above: Performed By: #### P TT, NTBNP, HSTNT, CBCDIF, PT, CKCKMB, CMP #### [place] [phone] Glucose mass conc 88 mg/dL Normal 65-100 [facility] Comment on above: Performed By: #### P TT, NTBNP, HSTNT, CBCDIF, PT, CKCKMB, CMP #### [place] [address] Potassium molar conc 3.9 mmol/L Normal 3.5-5.0 [facility] Comment on above: Performed By: #### P TT, NTBNP, HSTNT, CBCDIF, PT, CKCKMB, CMP #### [place] [phone] Protein mass conc 6.3 g/dL Normal 6.0-8.4 [facility] Comment on above: Performed By: #### P TT, NTBNP, HSTNT, CBCDIF, PT, CKCKMB, CMP #### [place] [id number] Sodium molar conc 138 mmol/L Normal 132-148 [facility] Comment on above: Performed By: #### P TT, NTBNP, HSTNT, CBCDIF, PT, CKCKMB, CMP #### [place] [phone] Urea nitrogen mass conc 67 mg/dL High 8-25 [facility] Comment on above: Performed By: #### P TT, NTBNP, HSTNT, CBCDIF, PT, CKCKMB, CMP #### [place] [phone] Ferritinon 07-07-2018 Ferritin mass conc 81.6 ng/mL Normal 14.7-205.1 [facility] Comment on above: Performed By: #### P TT, NTBNP, HSTNT, CBCDIF, PT, CKCKMB, CMP #### [place] [phone] Iron and TIBCon 07-07-2018 Iron mass conc 86 ug/dL Normal 35-150 [facility] Comment on above: Performed By: #### P TT, NTBNP, HSTNT, CBCDIF, PT, CKCKMB, CMP #### [place] [phone] TIBC 330 ug/dL Normal 250-450 [facility] Comment on above: Performed By: #### P TT, NTBNP, HSTNT, CBCDIF, PT, CKCKMB, CMP #### [phone] Transferrin Saturatn 26 % Normal 20-55 [facility] Comment on above: Performed By: #### P TT, NTBNP, HSTNT, CBCDIF, PT, CKCKMB, CMP #### [place] [phone] NURSING PROGon 07-07-2018 Protein mass conc HNO ID: [id number] Author: Neris English RN Service: Abstract Author [...] note was completed by: Neris English RN [facility] Protein mass conc HNO ID: [id number] Author: Neris Payton) DEBBIE English Service: Abstract [...] have to ask you. Thank you. Neris [id number] [id number] at bedside, would like to speak with you regarding d/c. Please call us. Thank you. Neris [phone] This note was completed by: Neris English RN [facility] PLAN OF CAREon 07-07-2018 PLAN OF CARE HNO ID: [id number] Author: Kathy Aguero ([employer]) Service: Pharmacy Author Type: Wholesaler Type: Plan of Care Filed: 07/11/2018 11:29 [...] or your Primary Care Provider. Kathy Aguero ([employer] PAGER: [phone] July 11, 2018 11:29 AM [facility] PLAN OF CARE HNO ID: [id number] Author: Kathy Aguero ([employer] Service: Pharmacy Author Type: Wholesaler Type: Plan of Care Filed: 07/07/2018 12:48 PM Note Text: Pharmacy Discharge Medication Service: This patient has elected to receive their discharge prescriptions through the [facility] Bedside Prescription Delivery program. The prescriptions are currently being processed. A follow-up note will be entered once the prescriptions have been filled and delivered to the patient. Please contact me with any questions or updates to the patient's discharge medications. Kathy Aguero ([employer] DCT Contact Info: [id number] [facility] OF CARE HNO ID: [id number] Author: Kathy Aguero ([employer] Service: Pharmacy Author Type: Wholesaler Type: Plan of Care Filed: 07/07/2018 12:48 PM Note Text: [employer]PER[employer] BEDSIDE DELIVERY SURVEY 1. Patient to use [facility] Bedside Delivery - YES Insurance Information as follows: 2. Insurance card on file - YES 3. Credit card for payment - N/A Normal [facility] PTH, Intacton 07-07-2018 PTH, Intact 78 pg/mL High 15-65 [facility] Comment on above: Performed By: #### P TT, NTBNP, HSTNT, CBCDIF, PT, CKCKMB, CMP #### [place] [address] Vitamin D 25 Hydroxyon 07-07 Vitamin D 25 Hydroxy 19.1 ng/mL Low 31.0-80.0 [facility] Comment on above: Result Comment: Clas sification of 25 [place] Vitamin D status: Insufficiency/Moderate Deficiency: < or = 30 ng/mL Sufficiency/Optimal Levels: 31 to 80 ng/mL Toxicity: > 100 ng/mL Test performed by chemiluminescent immunoassay. Performed By: #### P TT, NTBNP, HSTNT, CBCDIF, PT, CKCKMB, CMP #### [place] [address] Albumin/Creat Ratioon 2018 Albumin Urine Random 190.3 mg/L High 0.0-23.0 [facility] Comment on above: Performed By: #### P TT, NTBNP, HSTNT, CBCDIF, PT, CKCKMB, CMP #### [place] [phone] Albumin/Creat Ratio 582 mg/g High 0-30 [facility] Comment on above: Result Comment: 30 t o 300 mg/g indicates an increased risk for diabetic nephropathy. Greater than 300 mg/g is consistent with clinical nephropathy. (Am J Kidney Disease 1995, 25:107) Performed By: #### P TT, NTBNP, HSTNT, CBCDIF, PT, CKCKMB, CMP #### [place] [phone] Creatinine,Urine,Ran 32.7 mg/dL Normal 20-300 [facility] Comment on above: Performed By: #### P TT, NTBNP, HSTNT, CBCDIF, PT, CKCKMB, CMP #### [place] [phone] Basic Metabolic Panlon 07-06 Anion gap molar conc 12 mmol/L Normal 9-18 [facility] Comment on above: Performed By: #### P TT, NTBNP, HSTNT, CBCDIF, PT, CKCKMB, CMP #### [place] [phone] Calcium mass conc 8.8 mg/dL Normal 8.5-10.5 [facility] Comment on above: Performed By: #### P TT, NTBNP, HSTNT, CBCDIF, PT, CKCKMB, CMP #### [place] [phone] Chloride molar conc 90 mmol/L Low 98-110 [facility] Comment on above: Performed By: #### P TT, NTBNP, HSTNT, CBCDIF, PT, CKCKMB, CMP #### [place] [phone] CO2 molar conc 35 mmol/L High 23-32 [facility] Comment on above: Performed By: #### P TT, NTBNP, HSTNT, CBCDIF, PT, CKCKMB, CMP #### [place] [phone] Creatinine mass conc 1.51 mg/dL High 0.70-1.40 [facility] Comment on above: Performed By: #### P TT, NTBNP, HSTNT, CBCDIF, PT, CKCKMB, CMP #### [place] [phone] eGFR- Amer. 41 Low >60 [facility] Comment on above: Performed By: #### P TT, NTBNP, HSTNT, CBCDIF, PT, CKCKMB, CMP #### [place] [phone] GFR/1.73 sq M predicted among non-blacks MDRD vol rate/area (S/P/Bld) 34 . Low >60 [facility] Comment on above: Performed By: #### P TT, NTBNP, HSTNT, CBCDIF, PT, CKCKMB, CMP #### [place] [phone] Glucose mass conc 219 mg/dL High 65-100 [facility] Comment on above: Performed By: #### P TT, NTBNP, HSTNT, CBCDIF, PT, CKCKMB, CMP #### [place] [phone] Potassium molar conc 4.6 mmol/L Normal 3.5-5.0 [facility] Comment on above: Performed By: #### P TT, NTBNP, HSTNT, CBCDIF, PT, CKCKMB, CMP #### [place] [phone] Sodium molar conc 137 mmol/L Normal 132-148 [facility] Comment on above: Performed By: #### P TT, NTBNP, HSTNT, CBCDIF, PT, CKCKMB, CMP #### [place] [phone] [place] [phone] Urea nitrogen mass conc 63 mg/dL High 8-25 [facility] Comment on above: Performed By: #### P TT, NTBNP, HSTNT, CBCDIF, PT, CKCKMB, CMP #### [place] [phone] CASE MANAGEMon 07-06-2018 CASE MANAGEM HNO ID: [id number] Author: Bro Wood (Sw) Service: Care Management Author Type: Tank Washer Type: Care Mgt Progress Note Filed: 07/06/2018 [...] Moderate Degree (Hcc) Attendees Present at Rounds: Hematology Technologist: Yoselin Nurse Grinding Supervisor/Carrier Washer Nurse Grinding Supervisor: Betsy Tank Washer: Bro Staff Nurse: Neris Needs Discussed on [...] July 06, 2018 TIME: 11:06 AM CSN: [id number] Normal [facility] CONSULTon 07-06-2018 CONSULT HNO ID: [id number] Author: Amr Alyafi Service: General Internal Medicine [...] any new complaints. Patient doesn't see any hockey player currently. Previously came to the hospital in February . She also has history of contrast nephropathy. She doesn't remember her medications. Doesn't recall any diuretics. Baseline creatinine around 1.5 , around 1.4 to 1.5 range, previously higher. History of contrast nephropathy. SHIPWRIGHT med shows 40 lasix PO. PAST MEDICAL 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 - Aortic valve disorders - Cancer (HCC) - Coronary atherosclerosis of unspecified type of vessel, [place] or graft Coronary Atherosclerosis - Diabetes (HCC) [...] Anemia check iron study Clif Jarvis MD [facility] Normal [facility] Chloride,Urine,Marko 2018 Chloride,Urine,[place] 69 mmol/L Normal 16-250 [facility] Comment on above: Performed By: #### P TT, NTBNP, HSTNT, CBCDIF, PT, CKCKMB, CMP #### [facility] [address] [place] [address] PROGRESSon 07-06-2018 Protein mass conc HNO ID: [id number] Author: Taina Ware Service: ? Author Type: Pull Out Operator Type: Progress Notes Filed: 07/06/2018 9:54 AM [...] Ware RDMS July 06, 2018 9:53 AM [facility] Protein mass conc HNO ID: [id number] Author: Uzma Graff Service: General Internal Medicine [...] last 24 hours. SIGNATURE: Uzma Graff MD [phone] Pager: Normal [facility] Potassium,Urine,Marko 07-06 Potassium,Urine,[place] 23.0 mmol/L Normal 10-160 [facility] Comment on above: Performed By: #### P TT, NTBNP, HSTNT, CBCDIF, PT, CKCKMB, CMP #### [address] [address] Protein/Creatinine Ratioon 0 07-06-2018 Creatinine,Urine,Ran 33.3 mg/dL Normal 20-300 [facility] Comment on above: Performed By: #### P TT, NTBNP, HSTNT, CBCDIF, PT, CKCKMB, CMP #### [address] [address] Protein mass conc (U) 34 mg/dL High 0-20 [facility] Comment on above: Performed By: #### P TT, NTBNP, HSTNT, CBCDIF, PT, CKCKMB, CMP #### [facility] [address] [place] [address] Protein/Creatinine Ratio 1.0 High <0.2 [facility] Comment on above: Performed By: #### P TT, NTBNP, HSTNT, CBCDIF, PT, CKCKMB, CMP #### [place] [phone] [place] [address] Sodium,Urine,Randomon 2018 Sodium molar conc (U) 91 mmol/L Normal 14-216 [facility] Comment on above: Performed By: #### P TT, NTBNP, HSTNT, CBCDIF, PT, CKCKMB, CMP #### [place] [address] US KIDNEY/BLADDERon 07-07-19 19 US KIDNEY/BLADDER * [...] Additional findings as detailed in the report. Turkey Farmer: JENNIFER Transcribe Date/Time: Jul 06 2018 2:20P Dictated by : MANISHA CONTRERAS MD This examination was interpreted and the report reviewed and electronically signed by: MANISHA CONTRERAS MD on Jul 06 2018 2:22PM EST [id number] Normal [facility] Urea Nitrogen,Ur,Ranon 07-06 Urea nitrogen mass conc 444 mg/dL Normal 140-1500 [facility] Comment on above: Performed By: #### P TT, NTBNP, HSTNT, CBCDIF, PT, CKCKMB, CMP #### [place] [address] Urinalysis with Microscopico n 07-06-2018 Bacteria LM.HPF #/area (Urine sed) Rare Critically abnormal Negative [facility] Comment on above: Performed By: #### P TT, NTBNP, HSTNT, CBCDIF, PT, CKCKMB, CMP #### [place] [address] Bilirubin, Urine Negative Normal Negative [facility] Comment on above: Performed By: #### P TT, NTBNP, HSTNT, CBCDIF, PT, CKCKMB, CMP #### [place] [address] Clarity Nom (U) Clear Normal Clear [facility] Comment on above: Performed By: #### P TT, NTBNP, HSTNT, CBCDIF, PT, CKCKMB, CMP #### [place] [address] Color Nom (U) Yellow Normal Yellow [facility] Comment on above: Performed By: #### P TT, NTBNP, HSTNT, CBCDIF, PT, CKCKMB, CMP #### [place] [address] Comments SEE COMMENT Normal [facility] Comment on above: Result Comment: Micr oscopic Examination Performed Performed By: #### P TT, NTBNP, HSTNT, CBCDIF, PT, CKCKMB, CMP #### [place] [id number] Epithelial cells LM.HPF #/area (Urine sed) SEE COMMENT Critically abnormal Negative [facility] Comment on above: Result Comment: Rare Squamous Epithelial Cells Performed By: #### P TT, NTBNP, HSTNT, CBCDIF, PT, CKCKMB, CMP #### [place] [address] Glucose Ql (U) Negative Normal [facility] Comment on above: Performed By: #### P TT, NTBNP, HSTNT, CBCDIF, PT, CKCKMB, CMP #### [place] [address] Hemoglobin/Blood,Ur Negative Normal Negative [facility] Comment on above: Performed By: #### P TT, NTBNP, HSTNT, CBCDIF, PT, CKCKMB, CMP #### [place] [address] Ketones Ql (U) Negative Normal [facility] Comment on above: Performed By: #### P TT, NTBNP, HSTNT, CBCDIF, PT, CKCKMB, CMP #### [place] [address] Leukest Small Critically abnormal [facility] Comment on above: Performed By: #### P TT, NTBNP, HSTNT, CBCDIF, PT, CKCKMB, CMP #### [place] [address] Mucus Ql (Urine sed) Present [facility] Comment on above: Performed By: #### P TT, NTBNP, HSTNT, CBCDIF, PT, CKCKMB, CMP #### [place] [address] Nitrite Ql (U) Negative [facility] Comment on above: Performed By: #### P TT, NTBNP, HSTNT, CBCDIF, PT, CKCKMB, CMP #### [place] [id number] pH (Bld) 6.0 Normal 5.0-8.0 [facility] Comment on above: Performed By: #### P TT, NTBNP, HSTNT, CBCDIF, PT, CKCKMB, CMP #### [place] [address] Protein mass conc (U) 30 mg/dL Critically abnormal Negative [facility] Comment on above: Performed By: #### P TT, NTBNP, HSTNT, CBCDIF, PT, CKCKMB, CMP #### [place] [address] RBC #/vol (U) Rare Critically abnormal Negative [facility] Comment on above: Performed By: #### P TT, NTBNP, HSTNT, CBCDIF, PT, CKCKMB, CMP #### [place] [address] Specific [place], Ur 1.011 Normal 1.005-1.030 [facility] Comment on above: Performed By: #### P TT, NTBNP, HSTNT, CBCDIF, PT, CKCKMB, CMP #### [place] [address] Urobilinogen Qn (U) <2.0 Normal <2.0 [facility] Comment on above: Performed By: #### P TT, NTBNP, HSTNT, CBCDIF, PT, CKCKMB, CMP #### [place] [address] WBC #/vol (Bld) Rare Critically abnormal [facility] Comment on above: Performed By: #### P TT, NTBNP, HSTNT, CBCDIF, PT, CKCKMB, CMP #### [place] [address] PROGRESSon 07-05-2018 Protein mass conc HNO ID: [id number] Author: Geeta (Rn) DEBBIE Bradshaw Service: ? Author Type: Registered Nurse Type: Progress Notes Filed: 07/05/2018 3:09 PM Note Text: CHRONIC CARE ROUNDING Diagnosis: COPD Referral Source: Chronic Care Nurse Status: New Planned Discharge Disposition: Unknown Chronic Care services discussed with patient. Chronic Care brochure offered. OUTCOME OF ROUNDING Declines appointment due to: Not interested. Geeta Bradshaw RN July 05, 2018 3:08 PM [facility] Protein mass conc HNO ID: [id number] Author: Uzma Graff Service: General Internal Medicine [...] -- 06/29/18 1545 vte current anticoag therapy ([place]) 06/29/18 1545 pneumatic compression stockings ([place]) 06/29/18 1545 activity - mobilize patient ([place]) VTE Prophylaxis: SIGNATURE: Lisa Toney APRN.EDGE BURNISHER PATIENT NAME: Sarina Lovett DATE: July 05, 2018 TIME: 2:04 PM PAGER/CONTACT #: [facility] CASE MANAGEMon 07-04-2018 CASE MANAGEM HNO ID: [id number] Author: Bro Wood (Sw) Service: Care Management Author Type: Tank Washer Type: Care Mgt Progress Note Filed: 07/04/2018 [...] Failure (Chf) (Hcc) Attendees Present at Rounds: Hematology Technologist: Yoselin Nurse Grinding Supervisor/Carrier Washer Nurse Grinding Supervisor: Arlin Tank Washer: Bro Pollard Nurse: Toni Needs Discussed on [...] July 04, 2018 TIME: 11:27 AM CSN: [id number] Normal [facility] CBC and Differentialon 07-04 Abs Baso <0.03 Normal <0.11 [facility] Comment on above: Performed By: #### P TT, NTBNP, HSTNT, CBCDIF, PT, CKCKMB, CMP #### [place] [address] Abs [place] 0.12 k/uL Normal <0.87 [facility] Comment on above: Performed By: #### P TT, NTBNP, HSTNT, CBCDIF, PT, CKCKMB, CMP #### [place] [address] Abs Neut 6.90 k/uL Normal 1.45-7.50 [facility] Comment on above: Performed By: #### P TT, NTBNP, HSTNT, CBCDIF, PT, CKCKMB, CMP #### [place] [id number] Basophils/100 WBC (Bld) 0.0 % Normal [facility] Comment on above: Performed By: #### P TT, NTBNP, HSTNT, CBCDIF, PT, CKCKMB, CMP #### [place] [phone] DTYPE Auto Diff Normal [facility] Comment on above: Performed By: #### P TT, NTBNP, HSTNT, CBCDIF, PT, CKCKMB, CMP #### [place] [address] Eosinophils #/vol (Bld) 10*3/uL Normal <0.46 [facility] Comment on above: Performed By: #### P TT, NTBNP, HSTNT, CBCDIF, PT, CKCKMB, CMP #### [place] [address] Eosinophils/100 WBC (Bld) 0.0 % Normal [facility] Comment on above: Performed By: #### P TT, NTBNP, HSTNT, CBCDIF, PT, CKCKMB, CMP #### [place] [address] Erythrocyte distribution width Ratio (RBC) 14.5 % Normal 11.5-15.0 [facility] Comment on above: Performed By: #### P TT, NTBNP, HSTNT, CBCDIF, PT, CKCKMB, CMP #### [place] [address] Hematocrit Volume Fraction (Bld) 32.8 % Low 36.0-46.0 [facility] Comment on above: Performed By: #### P TT, NTBNP, HSTNT, CBCDIF, PT, CKCKMB, CMP #### [place] [address] Hemoglobin mass conc (Bld) 10.1 g/dL Low 11.5-15.5 [facility] Comment on above: Performed By: #### P TT, NTBNP, HSTNT, CBCDIF, PT, CKCKMB, CMP #### [place] [address] Lymphocytes #/vol (Bld) 0.41 10*3/uL Low 1.00-4.00 [facility] Comment on above: Performed By: #### P TT, NTBNP, HSTNT, CBCDIF, PT, CKCKMB, CMP #### [place] [phone] Lymphocytes/100 WBC (Bld) 5.5 % Normal [facility] Comment on above: Performed By: #### P TT, NTBNP, HSTNT, CBCDIF, PT, CKCKMB, CMP #### [place] [phone] MCH Entitic mass (RBC) 26.7 pG Normal 26.0-34.0 [facility] Comment on above: Performed By: #### P TT, NTBNP, HSTNT, CBCDIF, PT, CKCKMB, CMP #### [place] [phone] MCHC mass conc (RBC) 30.8 g/dL Normal 30.5-36.0 [facility] Comment on above: Performed By: #### P TT, NTBNP, HSTNT, CBCDIF, PT, CKCKMB, CMP #### [place] [phone] MCV Entitic volume (RBC) 86.8 fL Normal 80.0-100.0 [facility] Comment on above: Performed By: #### P TT, NTBNP, HSTNT, CBCDIF, PT, CKCKMB, CMP #### [place] [phone] Monocytes/100 WBC (Bld) 1.6 % Normal [facility] Comment on above: Performed By: #### P TT, NTBNP, HSTNT, CBCDIF, PT, CKCKMB, CMP #### [phone] Neutrophils/100 WBC (Bld) 92.9 % Normal [facility] Comment on above: Performed By: #### P TT, NTBNP, HSTNT, CBCDIF, PT, CKCKMB, CMP #### [place] [phone] Platelet mean volume Entitic volume (Bld) 10.2 fL Normal 9.0-12.7 [facility] Comment on above: Performed By: #### P TT, NTBNP, HSTNT, CBCDIF, PT, CKCKMB, CMP #### [place] [phone] Platelets #/vol (Bld) 205 10*3/uL Normal 150-400 [facility] Comment on above: Performed By: #### P TT, NTBNP, HSTNT, CBCDIF, PT, CKCKMB, CMP #### [place] [phone] RBC #/vol (Bld) 3.78 10*6/uL Low 3.90-5.20 [facility] Comment on above: Performed By: #### P TT, NTBNP, HSTNT, CBCDIF, PT, CKCKMB, CMP #### [place] [phone] WBC #/vol (Bld) 7.43 10*3/uL Normal 3.70-11.00 [facility] Comment on above: Performed By: #### P TT, NTBNP, HSTNT, CBCDIF, PT, CKCKMB, CMP #### [place] [phone] Comp Metabolic Panelon 07-04 Albumin mass conc 3.5 g/dL Normal 3.5-5.0 [facility] Comment on above: Performed By: #### P TT, NTBNP, HSTNT, CBCDIF, PT, CKCKMB, CMP #### [place] [phone] ALP enzyme act/vol 101 U/L Normal 34-123 [facility] Comment on above: Performed By: #### P TT, NTBNP, HSTNT, CBCDIF, PT, CKCKMB, CMP #### [place] [phone] ALT enzyme act/vol 14 U/L Normal 0-45 [facility] Comment on above: Performed By: #### P TT, NTBNP, HSTNT, CBCDIF, PT, CKCKMB, CMP #### [place] [address] Anion gap molar conc 14 mmol/L Normal 9-18 [facility] Comment on above: Performed By: #### P TT, NTBNP, HSTNT, CBCDIF, PT, CKCKMB, CMP #### [place] [address] AST enzyme act/vol 11 U/L Normal 7-40 [facility] Comment on above: Performed By: #### P TT, NTBNP, HSTNT, CBCDIF, PT, CKCKMB, CMP #### [place] [address] Bilirubin mass conc 0.2 mg/dL Normal 0.2-1.3 [facility] Comment on above: Performed By: #### P TT, NTBNP, HSTNT, CBCDIF, PT, CKCKMB, CMP #### [place] [address] Calcium mass conc 8.4 mg/dL Low 8.5-10.5 [facility] Comment on above: Performed By: #### P TT, NTBNP, HSTNT, CBCDIF, PT, CKCKMB, CMP #### [place] [address] Chloride molar conc 95 mmol/L Low 98-110 [facility] Comment on above: Performed By: #### P TT, NTBNP, HSTNT, CBCDIF, PT, CKCKMB, CMP #### [place] [address] CO2 molar conc 28 mmol/L Normal 23-32 [facility] Comment on above: Performed By: #### P TT, NTBNP, HSTNT, CBCDIF, PT, CKCKMB, CMP #### [place] [address] Creatinine mass conc 1.44 mg/dL High 0.70-1.40 [facility] Comment on above: Performed By: #### P TT, NTBNP, HSTNT, CBCDIF, PT, CKCKMB, CMP #### [place] [phone] eGFR- Amer. 43 Low >60 [facility] Comment on above: Performed By: #### P TT, NTBNP, HSTNT, CBCDIF, PT, CKCKMB, CMP #### [place] [phone] GFR/1.73 sq M predicted among non-blacks MDRD vol rate/area (S/P/Bld) 36 . Low >60 [facility] Comment on above: Performed By: #### P TT, NTBNP, HSTNT, CBCDIF, PT, CKCKMB, CMP #### [place] [phone] Glucose mass conc 328 mg/dL High 65-100 [facility] Comment on above: Performed By: #### P TT, NTBNP, HSTNT, CBCDIF, PT, CKCKMB, CMP #### [place] [phone] Potassium molar conc 4.4 mmol/L Normal 3.5-5.0 [facility] Comment on above: Performed By: #### P TT, NTBNP, HSTNT, CBCDIF, PT, CKCKMB, CMP #### [place] [phone] Protein mass conc 6.3 g/dL Normal 6.0-8.4 [facility] Comment on above: Performed By: #### P TT, NTBNP, HSTNT, CBCDIF, PT, CKCKMB, CMP #### [place] [phone] Sodium molar conc 137 mmol/L Normal 132-148 [facility] Comment on above: Performed By: #### P TT, NTBNP, HSTNT, CBCDIF, PT, CKCKMB, CMP #### [facility] [address] [place] [address] Urea nitrogen mass conc 52 mg/dL High 10-22 [facility] Comment on above: Performed By: #### P TT, NTBNP, HSTNT, CBCDIF, PT, CKCKMB, CMP #### [facility] [address] [place] [address] NUTRITIONon 07-04-2018 NUTRITION HNO ID: [id number] Author: Laura Garcia) Bony Service: Nutrition Therapy [...] Resting Metabolic Rate: 1292 Estimated kilocalorie needs: 5163-0377 kilocalories determined by 25-30 kcal/kg Estimated protein needs: 74-89 grams determined by 1.0-1.2 g/kg Dosing weight Estimated fluid needs: 2628-9168 milliliters based on 1 mL per kcal [...] 0659 07/04/18 07 - 07/05/18 0659 Shift 1944-0538 2725-7640 7089-8637 24 Hour Total 7624-1832 6400-9781 4538-4038 24 Hour Total INTAKE PO 700 700 PO 700 700 Shift Total 700 700 OUTPUT Urine 573 790 8607 1800 Void (ml) 040 080 8299 1800 Urine Not Saved. 3 x 1 x 4 x # of BMs Number of BMs 3 x 1 x 4 x Shift Total 396 834 4779 1800 Weight (kg) 75.3 75.3 74 74 74 74 74 74 MNT Billing Type: Initial Assess/15 min 4 units SIGNATURE: Laura Lovett, MS,RD,LD,CNSC PATIENT NAME: Sarina Lovett DATE: July 04, 2018 TIME: 1:17 PM PAGER: [phone] [facility] PROGRESSon 07-04-2018 Protein mass conc HNO ID: [id number] Author: Uzma Graff Service: General Internal Medicine [...] -- 06/29/18 1545 vte current anticoag therapy ([place]) 06/29/18 1545 pneumatic compression stockings ([place]) 06/29/18 1545 activity - mobilize patient ([place] VTE Prophylaxis: SIGNATURE: Lisa Toney APRN.CNP PATIENT NAME: Sarina Lovett DATE: July 04, 2018 TIME: 5:09 PM PAGER/CONTACT #: [facility] CONSULT PROGon 07-03-2018 Protein mass conc HNO ID: [id number] Author: Deanna Yoo Service: Cardiovascular Medicine Author [...] mg ORAL DAILY 06/29/18 1531 -- @RADHA ARGUETA([id number])@ VTE Prophylaxis: VTE prophylaxis appropriate SIGNATURE: Deanna Yoo APRN.EDGE BURNISHER PATIENT NAME: Sarina Lovett DATE: July 03, 2018 TIME: 10:17 AM PAGER/CONTACT #: [facility] PROGRESSon 07-03-2018 Protein mass conc HNO ID: [id number] Author: Uzma Graff Service: General Internal Medicine Author Type: Physician Type: Progress Notes Filed: 07/05/2018 12:13 AM Note Text: INTERNAL MEDICINE PROGRESS NOTE SERVICE DATE: 07/03/2018 SERVICE TIME: 0800 ADMITTING PHYSICIAN: Uzma Grfaf Subjective CHIEF COMPLAINT: CHF Current Facility-Administered Medications [...] -- 06/29/18 1545 vte current anticoag therapy ([place]) 06/29/18 1545 pneumatic compression stockings ([place]) 06/29/18 1545 activity - mobilize [place] ([place] VTE Prophylaxis: SIGNATURE: Lisa Toney APRN.CNP PATIENT NAME: Sarina Lovett DATE: July 03, 2018 TIME: 11:28 AM PAGER/CONTACT #: Normal [facility] CBC and Differentialon 07-02 Abs Baso <0.03 Normal <0.11 [facility] Comment on above: Performed By: #### P TT, NTBNP, HSTNT, CBCDIF, PT, CKCKMB, CMP #### [place] [phone] Abs [place] 0.22 k/uL Normal <0.87 [facility] Comment on above: Performed By: #### P TT, NTBNP, HSTNT, CBCDIF, PT, CKCKMB, CMP #### [place] [phone] Abs Neut 5.38 k/uL Normal 1.45-7.50 [facility] Comment on above: Performed By: #### P TT, NTBNP, HSTNT, CBCDIF, PT, CKCKMB, CMP #### [place] [phone] Basophils/100 WBC (Bld) 0.0 % Normal [facility] [facility] Comment on above: Performed By: #### P TT, NTBNP, HSTNT, CBCDIF, PT, CKCKMB, CMP #### [place] [phone] DTYPE Auto Diff Normal [facility] Comment on above: Performed By: #### P TT, NTBNP, HSTNT, CBCDIF, PT, CKCKMB, CMP #### [place] [address] Eosinophils #/vol (Bld) 10*3/uL Normal <0.46 [facility] Comment on above: Performed By: #### P TT, NTBNP, HSTNT, CBCDIF, PT, CKCKMB, CMP #### [place] [address] Eosinophils/100 WBC (Bld) 0.0 % Normal [facility] Comment on above: Performed By: #### P TT, NTBNP, HSTNT, CBCDIF, PT, CKCKMB, CMP #### [place] [address] Erythrocyte distribution width Ratio (RBC) 14.5 % Normal 11.5-15.0 [facility] Comment on above: Performed By: #### P TT, NTBNP, HSTNT, CBCDIF, PT, CKCKMB, CMP #### [place] [address] Hematocrit Volume Fraction (Bld) 31.0 % Low 36.0-46.0 [facility] Comment on above: Performed By: #### P TT, NTBNP, HSTNT, CBCDIF, PT, CKCKMB, CMP #### [place] [address] Hemoglobin mass conc (Bld) 9.4 g/dL Low 11.5-15.5 [facility] Comment on above: Performed By: #### P TT, NTBNP, HSTNT, CBCDIF, PT, CKCKMB, CMP #### [place] [address] Lymphocytes #/vol (Bld) 0.32 10*3/uL Low 1.00-4.00 [facility] Comment on above: Performed By: #### P TT, NTBNP, HSTNT, CBCDIF, PT, CKCKMB, CMP #### [place] [phone] Lymphocytes/100 WBC (Bld) 5.4 % Normal [facility] Comment on above: Performed By: #### P TT, NTBNP, HSTNT, CBCDIF, PT, CKCKMB, CMP #### [place] [phone] MCH Entitic mass (RBC) 26.6 pG Normal 26.0-34.0 [facility] Comment on above: Performed By: #### P TT, NTBNP, HSTNT, CBCDIF, PT, CKCKMB, CMP #### [place] [phone] MCHC mass conc (RBC) 30.3 g/dL Low 30.5-36.0 [facility] Comment on above: Performed By: #### P TT, NTBNP, HSTNT, CBCDIF, PT, CKCKMB, CMP #### [place] [phone] MCV Entitic volume (RBC) 87.8 fL Normal 80.0-100.0 [facility] Comment on above: Performed By: #### P TT, NTBNP, HSTNT, CBCDIF, PT, CKCKMB, CMP #### [place] [phone] Monocytes/100 WBC (Bld) 3.7 % Normal [facility] Comment on above: Performed By: #### P TT, NTBNP, HSTNT, CBCDIF, PT, CKCKMB, CMP #### [place] [phone] Neutrophils/100 WBC (Bld) 90.9 % Normal [facility] Comment on above: Performed By: #### P TT, NTBNP, HSTNT, CBCDIF, PT, CKCKMB, CMP #### [place] [phone] Platelet mean volume Entitic volume (Bld) 9.9 fL Normal 9.0-12.7 [facility] Comment on above: Performed By: #### P TT, NTBNP, HSTNT, CBCDIF, PT, CKCKMB, CMP #### [place] [phone] Platelets #/vol (Bld) 194 10*3/uL Normal 150-400 [facility] Comment on above: Performed By: #### P TT, NTBNP, HSTNT, CBCDIF, PT, CKCKMB, CMP #### [place] [phone] RBC #/vol (Bld) 3.53 10*6/uL Low 3.90-5.20 [facility] Comment on above: Performed By: #### P TT, NTBNP, HSTNT, CBCDIF, PT, CKCKMB, CMP #### [place] [phone] WBC #/vol (Bld) 5.92 10*3/uL Normal 3.70-11.00 [facility] Comment on above: Performed By: #### P TT, NTBNP, HSTNT, CBCDIF, PT, CKCKMB, CMP #### [place] [address] CONSULT PROGon 07-02-2018 Protein mass conc HNO ID: [id number] Author: Jonathan Mchugh Service: Cardiovascular Disease Author [...] July 02, 2018 Time: 10:13 AM Normal [facility] Comp Metabolic Panelon 07-02 Albumin mass conc 3.3 g/dL Low 3.5-5.0 [facility] Comment on above: Performed By: #### P TT, NTBNP, HSTNT, CBCDIF, PT, CKCKMB, CMP #### [facility] [address] [place] [address] ALP enzyme act/vol 87 U/L Normal 34-123 [facility] Comment on above: Performed By: #### P TT, NTBNP, HSTNT, CBCDIF, PT, CKCKMB, CMP #### [place] [address] ALT enzyme act/vol 12 U/L Normal 0-45 [facility] Comment on above: Performed By: #### P TT, NTBNP, HSTNT, CBCDIF, PT, CKCKMB, CMP #### [place] [address] Anion gap molar conc 13 mmol/L Normal 9-18 [facility] Comment on above: Performed By: #### P TT, NTBNP, HSTNT, CBCDIF, PT, CKCKMB, CMP #### [place] [address] AST enzyme act/vol 8 U/L Normal 7-40 [facility] Comment on above: Performed By: #### P TT, NTBNP, HSTNT, CBCDIF, PT, CKCKMB, CMP #### [address] Bilirubin mass conc 0.2 mg/dL Normal 0.2-1.3 [facility] Comment on above: Performed By: #### P TT, NTBNP, HSTNT, CBCDIF, PT, CKCKMB, CMP #### [place] [address] Calcium mass conc 8.3 mg/dL Low 8.5-10.5 [facility] Comment on above: Performed By: #### P TT, NTBNP, HSTNT, CBCDIF, PT, CKCKMB, CMP #### [place] [address] Chloride molar conc 98 mmol/L Normal 98-110 [facility] Comment on above: Performed By: #### P TT, NTBNP, HSTNT, CBCDIF, PT, CKCKMB, CMP #### [place] [phone] CO2 molar conc 26 mmol/L Normal 23-32 [facility] Comment on above: Performed By: #### P TT, NTBNP, HSTNT, CBCDIF, PT, CKCKMB, CMP #### [place] [phone] Creatinine mass conc 1.47 mg/dL High 0.70-1.40 [facility] Comment on above: Performed By: #### P TT, NTBNP, HSTNT, CBCDIF, PT, CKCKMB, CMP #### [place] [phone] eGFR- Amer. 42 Low >60 [facility] Comment on above: Performed By: #### P TT, NTBNP, HSTNT, CBCDIF, PT, CKCKMB, CMP #### [place] [phone] GFR/1.73 sq M predicted among non-blacks MDRD vol rate/area (S/P/Bld) 35 . Low >60 [facility] Comment on above: Performed By: #### P TT, NTBNP, HSTNT, CBCDIF, PT, CKCKMB, CMP #### [place] [phone] Glucose mass conc 214 mg/dL High 65-100 [facility] Comment on above: Performed By: #### P TT, NTBNP, HSTNT, CBCDIF, PT, CKCKMB, CMP #### [place] [phone] Potassium molar conc 4.2 mmol/L Normal 3.5-5.0 [facility] Comment on above: Performed By: #### P TT, NTBNP, HSTNT, CBCDIF, PT, CKCKMB, CMP #### [place] [phone] Protein mass conc 6.3 g/dL Normal 6.0-8.4 [facility] Comment on above: Performed By: #### P TT, NTBNP, HSTNT, CBCDIF, PT, CKCKMB, CMP #### [place] [phone] Sodium molar conc 137 mmol/L Normal 132-148 [facility] Comment on above: Performed By: #### P TT, NTBNP, HSTNT, CBCDIF, PT, CKCKMB, CMP #### [place] [phone] Urea nitrogen mass conc 42 mg/dL High 8-25 [facility] Comment on above: Performed By: #### P TT, NTBNP, HSTNT, CBCDIF, PT, CKCKMB, CMP #### [place] [phone] NT Pro BNPon 07-02-2018 Protein mass conc 78104 pg/mL High <125 [facility] Comment on above: Performed By: #### P TT, NTBNP, HSTNT, CBCDIF, PT, CKCKMB, CMP #### [place] [phone] NURSING PROGon 07-02-2018 Protein mass conc HNO ID: [id number] Author: Xiomy (Rn) DEBBIE Christine Service: ? Author Type: Registered Nurse Type: Nursing Progress Note Filed: 07/02/2018 10:55 AM Note Text: Nursing Progress Note Patient Name: Sarina Lovett Patient Location: [id number] Daily Note:Pt states breathing is improving. VSS on RA. SB on tele. BP 180s/50s and HTN noted consistantly overnight. Discussed with Dr. Mchugh and additional dose vasotec given now. Daily vasotec dose to increase starting tomorrow. Hydralazine added PRN for SBP>170. ProBNP trending down. BUN/Cr 42/1.47 and physicians aware. Assessment ongoing. This note was completed by: Xiomy Christine RN [facility] PROGRESSon 07-02-2018 Protein mass conc HNO ID: [id number] Author: Jefe Hernandez Service: General Internal Medicine [...] July 02, 2018 TIME: 11:50 AM Normal [facility] CBC and Differentialon 07-01 Abs Baso <0.03 Normal <0.11 [facility] Comment on above: Performed By: #### P TT, NTBNP, HSTNT, CBCDIF, PT, CKCKMB, CMP #### [place] [address] Abs [place] 0.69 k/uL Normal <0.87 [facility] Comment on above: Performed By: #### P TT, NTBNP, HSTNT, CBCDIF, PT, CKCKMB, CMP #### [place] [address] Abs Neut 7.98 k/uL High 1.45-7.50 [facility] Comment on above: Performed By: #### P TT, NTBNP, HSTNT, CBCDIF, PT, CKCKMB, CMP #### [place] [address] Basophils/100 WBC (Bld) 0.0 % Normal [facility] Comment on above: Performed By: #### P TT, NTBNP, HSTNT, CBCDIF, PT, CKCKMB, CMP #### [place] [address] DTYPE Auto Diff Normal [facility] Comment on above: Performed By: #### P TT, NTBNP, HSTNT, CBCDIF, PT, CKCKMB, CMP #### [place] [address] Eosinophils #/vol (Bld) 10*3/uL Normal <0.46 [facility] Comment on above: Performed By: #### P TT, NTBNP, HSTNT, CBCDIF, PT, CKCKMB, CMP #### [place] [id number] Eosinophils/100 WBC (Bld) 0.0 % Normal [facility] Comment on above: Performed By: #### P TT, NTBNP, HSTNT, CBCDIF, PT, CKCKMB, CMP #### [place] [address] Erythrocyte distribution width Ratio (RBC) 14.4 % Normal 11.5-15.0 [facility] Comment on above: Performed By: #### P TT, NTBNP, HSTNT, CBCDIF, PT, CKCKMB, CMP #### [place] [address] Hematocrit Volume Fraction (Bld) 30.7 % Low 36.0-46.0 [facility] Comment on above: Performed By: #### P TT, NTBNP, HSTNT, CBCDIF, PT, CKCKMB, CMP #### [place] [address] Hemoglobin mass conc (Bld) 9.3 g/dL Low 11.5-15.5 [facility] Comment on above: Performed By: #### P TT, NTBNP, HSTNT, CBCDIF, PT, CKCKMB, CMP #### [place] [id number] Lymphocytes #/vol (Bld) 0.76 10*3/uL Low 1.00-4.00 [facility] Comment on above: Performed By: #### P TT, NTBNP, HSTNT, CBCDIF, PT, CKCKMB, CMP #### [address] Lymphocytes/100 WBC (Bld) 8.1 % Normal [facility] Comment on above: Performed By: #### P TT, NTBNP, HSTNT, CBCDIF, PT, CKCKMB, CMP #### [place] [id number] MCH Entitic mass (RBC) 27.0 pG Normal 26.0-34.0 [facility] Comment on above: Performed By: #### P TT, NTBNP, HSTNT, CBCDIF, PT, CKCKMB, CMP #### [address] MCHC mass conc (RBC) 30.3 g/dL Low 30.5-36.0 [facility] Comment on above: Performed By: #### P TT, NTBNP, HSTNT, CBCDIF, PT, CKCKMB, CMP #### [place] [id number] MCV Entitic volume (RBC) 89.2 fL Normal 80.0-100.0 [facility] Comment on above: Performed By: #### P TT, NTBNP, HSTNT, CBCDIF, PT, CKCKMB, CMP #### [place] [phone] Monocytes/100 WBC (Bld) 7.3 % Normal [facility] Comment on above: Performed By: #### P TT, NTBNP, HSTNT, CBCDIF, PT, CKCKMB, CMP #### [place] [phone] Neutrophils/100 WBC (Bld) 84.6 % Normal [facility] Comment on above: Performed By: #### P TT, NTBNP, HSTNT, CBCDIF, PT, CKCKMB, CMP #### [place] [phone] Platelet mean volume Entitic volume (Bld) 10.5 fL Normal 9.0-12.7 [facility] Comment on above: Performed By: #### P TT, NTBNP, HSTNT, CBCDIF, PT, CKCKMB, CMP #### [place] [phone] Platelets #/vol (Bld) 218 10*3/uL Normal 150-400 [facility] Comment on above: Performed By: #### P TT, NTBNP, HSTNT, CBCDIF, PT, CKCKMB, CMP #### [place] [phone] RBC #/vol (Bld) 3.44 10*6/uL Low 3.90-5.20 [facility] Comment on above: Performed By: #### P TT, NTBNP, HSTNT, CBCDIF, PT, CKCKMB, CMP #### [place] [phone] WBC #/vol (Bld) 9.43 10*3/uL Normal 3.70-11.00 [facility] Comment on above: Performed By: #### P TT, NTBNP, HSTNT, CBCDIF, PT, CKCKMB, CMP #### [place] [phone] Comp Metabolic Panelon 07-01 Albumin mass conc 3.3 g/dL Low 3.5-5.0 [facility] Comment on above: Performed By: #### P TT, NTBNP, HSTNT, CBCDIF, PT, CKCKMB, CMP #### [place] [phone] ALP enzyme act/vol 85 U/L Normal 34-123 [facility] Comment on above: Performed By: #### P TT, NTBNP, HSTNT, CBCDIF, PT, CKCKMB, CMP #### [place] [phone] ALT enzyme act/vol 12 U/L Normal 0-45 [facility] Comment on above: Performed By: #### P TT, NTBNP, HSTNT, CBCDIF, PT, CKCKMB, CMP #### [place] [phone] Anion gap molar conc 14 mmol/L Normal 9-18 [facility] Comment on above: Performed By: #### P TT, NTBNP, HSTNT, CBCDIF, PT, CKCKMB, CMP #### [address] AST enzyme act/vol 8 U/L Normal 7-40 [facility] Comment on above: Performed By: #### P TT, NTBNP, HSTNT, CBCDIF, PT, CKCKMB, CMP #### [place] [phone] Bilirubin mass conc 0.2 mg/dL Normal 0.2-1.3 [facility] Comment on above: Performed By: #### P TT, NTBNP, HSTNT, CBCDIF, PT, CKCKMB, CMP #### [place] [phone] Calcium mass conc 8.5 mg/dL Normal 8.5-10.5 [facility] Comment on above: Performed By: #### P TT, NTBNP, HSTNT, CBCDIF, PT, CKCKMB, CMP #### [place] [phone] Chloride molar conc 100 mmol/L Normal 98-110 [facility] Comment on above: Performed By: #### P TT, NTBNP, HSTNT, CBCDIF, PT, CKCKMB, CMP #### [place] [phone] CO2 molar conc 25 mmol/L Normal 23-32 [facility] Comment on above: Performed By: #### P TT, NTBNP, HSTNT, CBCDIF, PT, CKCKMB, CMP #### [place] [phone] Creatinine mass conc 1.59 mg/dL High 0.70-1.40 [facility] Comment on above: Performed By: #### P TT, NTBNP, HSTNT, CBCDIF, PT, CKCKMB, CMP #### [place] [phone] eGFR- Amer. 39 Low >60 [facility] Comment on above: Performed By: #### P TT, NTBNP, HSTNT, CBCDIF, PT, CKCKMB, CMP #### [place] [phone] GFR/1.73 sq M predicted among non-blacks MDRD vol rate/area (S/P/Bld) 32 . Low >60 [facility] Comment on above: Performed By: #### P TT, NTBNP, HSTNT, CBCDIF, PT, CKCKMB, CMP #### [place] [phone] Glucose mass conc 193 mg/dL High 65-100 [facility] Comment on above: Performed By: #### P TT, NTBNP, HSTNT, CBCDIF, PT, CKCKMB, CMP #### [place] [phone] Potassium molar conc 4.1 mmol/L Normal 3.5-5.0 [facility] Comment on above: Performed By: #### P TT, NTBNP, HSTNT, CBCDIF, PT, CKCKMB, CMP #### [place] [phone] Protein mass conc 6.1 g/dL Normal 6.0-8.4 [facility] Comment on above: Performed By: #### P TT, NTBNP, HSTNT, CBCDIF, PT, CKCKMB, CMP #### [place] [phone] Sodium molar conc 139 mmol/L Normal 132-148 [facility] Comment on above: Performed By: #### P TT, NTBNP, HSTNT, CBCDIF, PT, CKCKMB, CMP #### [place] [phone] Urea nitrogen mass conc 37 mg/dL High 8-25 [facility] Comment on above: Performed By: #### P TT, NTBNP, HSTNT, CBCDIF, PT, CKCKMB, CMP #### [place] [phone] NURSING PROGon 07-01-2018 Protein mass conc HNO ID: [id number] Author: Charlotte (Rn) DEBBIE Fox Service: ? Author Type: Registered Nurse Type: Nursing Progress Note Filed: 07/01/2018 6:46 AM Note Text: Nursing Progress Note Patient Name: Sarina Lovett Patient Location: -[id number] Daily Note: 0510: Pts BP 182/57. Paged house. Orders in system for 10mg Hydralazine IV push. 0538: Hydralazine given at this time. 0644: Recheck of BP 156/59 This note was completed by: Charlotte Fox RN [facility] PROGRESSon 07-01-2018 Protein mass conc HNO ID: [id number] Author: Uzma Graff Service: General Internal Medicine [...] 85 TBILI 0.2 SIGNATURE: Uzma Graff MD [phone] Pager: [facility] CASE MGT INIT Alfredo 2018 CASE MGT INIT [place] HNO ID: [id number] Author: Bro Wood (Sw) Service: Care Management Author Type: Tank Washer Type: Care Mgt Initial Assessment Filed: 06/30/2018 11:47 AM Note Text: CARE MANAGEMENT: ASSESSMENT AND DISCHARGE PLAN SERVICE DATE: 06/30/2018 SERVICE TIME: 11:43 AM PRIMARY CARE PHYSICIAN: Sadia Diaz MD ADMISSION STATUS: Inpatient Needs Prior to Discharge: To Be Determined MEDICAL: Patient/Representativ e Stated Goals: To have reduction in symptoms To return home to life as it was Health Insurance: [employer] Health Issues Impacting Discharge Plan: CHF Last Admission Date: Previous admit date: 03/24/2018 Is this Within the Past 30 days? No Advance Directive: Current Advance Directive: None Hematology Technologist Attempted to Assist with AD Completion: Yes [...] None Has the Patient Been in a Senior Living Facility in the Past 30 days? No SOCIAL: Living Arrangement: Home Lives With: Spouse Financial Resources: Retired Primary Contact: Extended Emergency Contact Information Primary Emergency Contact: EsauPaul [place] Relation: Relative Secondary Emergency Contact: Daniel Lovett Address: [facility] OF [facility] [place] Relation: Spouse Supportive: Yes Other [...] 0 I feel financially burdened by my [id number] expenses for my prescription medication: Disagree completely [...] use of DME, has been active with [facility] before. No anticipated skilled needs at discharge. Sw will follow for any discharge needs. SIGNATURE: KARRIE FORTE PATIENT NAME: Sarina Lovett DATE: June 30, 2018 TIME: 11:42 AM PAGER/CONTACT #: [phone] Normal [facility] CBCon 06-30-2018 Erythrocyte distribution width Ratio (RBC) 14.4 % Normal 11.5-15.0 [facility] Comment on above: Performed By: #### P TT, NTBNP, HSTNT, CBCDIF, PT, CKCKMB, CMP #### [phone] Hematocrit Volume Fraction (Bld) 33.2 % Low 36.0-46.0 [facility] Comment on above: Performed By: #### P TT, NTBNP, HSTNT, CBCDIF, PT, CKCKMB, CMP #### [place] [phone] Hemoglobin mass conc (Bld) 10.0 g/dL Low 11.5-15.5 [facility] Comment on above: Performed By: #### P TT, NTBNP, HSTNT, CBCDIF, PT, CKCKMB, CMP #### [place] [phone] MCH Entitic mass (RBC) 26.9 pG Normal 26.0-34.0 [facility] Comment on above: Performed By: #### P TT, NTBNP, HSTNT, CBCDIF, PT, CKCKMB, CMP #### [place] [address] MCHC mass conc (RBC) 30.1 g/dL Low 30.5-36.0 [facility] Comment on above: Performed By: #### P TT, NTBNP, HSTNT, CBCDIF, PT, CKCKMB, CMP #### [place] [address] MCV Entitic volume (RBC) 89.2 fL Normal 80.0-100.0 [facility] Comment on above: Performed By: #### P TT, NTBNP, HSTNT, CBCDIF, PT, CKCKMB, CMP #### [place] [phone] Platelet mean volume Entitic volume (Bld) 10.0 fL Normal 9.0-12.7 [facility] Comment on above: Performed By: #### P TT, NTBNP, HSTNT, CBCDIF, PT, CKCKMB, CMP #### [place] [phone] Platelets #/vol (Bld) 214 10*3/uL Normal 150-400 [facility] Comment on above: Performed By: #### P TT, NTBNP, HSTNT, CBCDIF, PT, CKCKMB, CMP #### [place] [phone] RBC #/vol (Bld) 3.72 10*6/uL Low 3.90-5.20 [facility] Comment on above: Performed By: #### P TT, NTBNP, HSTNT, CBCDIF, PT, CKCKMB, CMP #### [facility] [address] [place] [address] WBC #/vol (Bld) 5.42 10*3/uL Normal 3.70-11.00 [facility] Comment on above: Performed By: #### P TT, NTBNP, HSTNT, CBCDIF, PT, CKCKMB, CMP #### [facility] [address] [place] [address] CONSULTon 06-30-2018 CONSULT HNO ID: [id number] Author: Deanna Yoo Service: Cardiovascular Medicine Author [...] breath, leg edema, and intermittent chest pressure. [place] better in the ED following breathing treatments [...] Coronary atherosclerosis of unspecified type of vessel, [place] or graft Coronary Atherosclerosis - Diabetes (HCC) [...] in this patient's care. SIGNATURE: Deanna Yoo APRN.[facility] cardiology DATE: June 30, 2018 TIME: 12:48 PM Normal [facility] Comp Metabolic Panelon 06-30 Albumin mass conc 3.6 g/dL Normal 3.5-5.0 [facility] Comment on above: Performed By: #### P TT, NTBNP, HSTNT, CBCDIF, PT, CKCKMB, CMP #### [place] [address] ALP enzyme act/vol 93 U/L Normal 34-123 [facility] Comment on above: Performed By: #### P TT, NTBNP, HSTNT, CBCDIF, PT, CKCKMB, CMP #### [place] [address] ALT enzyme act/vol 14 U/L Normal 0-45 [facility] Comment on above: Performed By: #### P TT, NTBNP, HSTNT, CBCDIF, PT, CKCKMB, CMP #### [place] [address] Anion gap molar conc 13 mmol/L Normal 9-18 [facility] Comment on above: Performed By: #### P TT, NTBNP, HSTNT, CBCDIF, PT, CKCKMB, CMP #### [place] [id number] AST enzyme act/vol 11 U/L Normal 7-40 [facility] Comment on above: Performed By: #### P TT, NTBNP, HSTNT, CBCDIF, PT, CKCKMB, CMP #### [place] [address] Bilirubin mass conc 0.3 mg/dL Normal 0.2-1.3 [facility] Comment on above: Performed By: #### P TT, NTBNP, HSTNT, CBCDIF, PT, CKCKMB, CMP #### [place] [address] Calcium mass conc 9.0 mg/dL Normal 8.5-10.5 [facility] Comment on above: Performed By: #### P TT, NTBNP, HSTNT, CBCDIF, PT, CKCKMB, CMP #### [place] [address] Chloride molar conc 105 mmol/L Normal 98-110 [facility] Comment on above: Performed By: #### P TT, NTBNP, HSTNT, CBCDIF, PT, CKCKMB, CMP #### [place] [address] CO2 molar conc 26 mmol/L Normal 23-32 [facility] Comment on above: Performed By: #### P TT, NTBNP, HSTNT, CBCDIF, PT, CKCKMB, CMP #### [place] [address] Creatinine mass conc 1.27 mg/dL Normal 0.70-1.40 [facility] Comment on above: Result Comment: Revi ewed Performed By: #### P TT, NTBNP, HSTNT, CBCDIF, PT, CKCKMB, CMP #### [place] [address] eGFR- Amer. 50 Low >60 [facility] Comment on above: Performed By: #### P TT, NTBNP, HSTNT, CBCDIF, PT, CKCKMB, CMP #### [place] [id number] GFR/1.73 sq M predicted among non-blacks MDRD vol rate/area (S/P/Bld) 41 . Low >60 [facility] Comment on above: Performed By: #### P TT, NTBNP, HSTNT, CBCDIF, PT, CKCKMB, CMP #### [place] [phone] Glucose mass conc 232 mg/dL High 65-100 [facility] Comment on above: Performed By: #### P TT, NTBNP, HSTNT, CBCDIF, PT, CKCKMB, CMP #### [place] [phone] Potassium molar conc 5.8 mmol/L High 3.5-5.0 [facility] Comment on above: Result Comment: Revi ewed Performed By: #### P TT, NTBNP, HSTNT, CBCDIF, PT, CKCKMB, CMP #### [place] [phone] Protein mass conc 7.0 g/dL Normal 6.0-8.4 [facility] Comment on above: Performed By: #### P TT, NTBNP, HSTNT, CBCDIF, PT, CKCKMB, CMP #### [place] [phone] Sodium molar conc 144 mmol/L Normal 132-148 [facility] Comment on above: Performed By: #### P TT, NTBNP, HSTNT, CBCDIF, PT, CKCKMB, CMP #### [place] [phone] Urea nitrogen mass conc 22 mg/dL Normal 8-25 [facility] Comment on above: Performed By: #### P TT, NTBNP, HSTNT, CBCDIF, PT, CKCKMB, CMP #### [place] [phone] HISTORY PHYSICALon 05-03-201 9 HISTORY PHYSICAL HNO ID: [id number] Author: Uzma Graff Service: General Internal Medicine [...] Coronary atherosclerosis of unspecified type of vessel, [place] or graft Coronary Atherosclerosis - Diabetes (HCC) - Mixed hyperlipidemia Hyperlipidemia - Psychiatric disorder - Unspecified essential hypertension Essential hypertension PAST SURGICAL HISTORY: PAST SURGICAL HISTORY Procedure Laterality Date - CARDIAC CATHETERIZATION HX - CORONARY STENT EA VESSEL advid 02/2015 - HEART SURGERY HX aortic valve [...] June 30, 2018 TIME: 11:36 AM Normal [facility] Magnesiumon 06-30-2018 Magnesium mass conc 2.2 mg/dL Normal 1.7-2.6 [facility] Comment on above: Result Comment: Revi ewed Performed By: #### P TT, NTBNP, HSTNT, CBCDIF, PT, CKCKMB, CMP #### [place] [address] NURSING PROGon 06-30-2018 Protein mass conc HNO ID: [id number] Author: Kiko (Rn) DEBBIE Gillespie Service: ? Author Type: Registered Nurse Type: Nursing Progress Note Filed: 06/30/2018 6:39 PM Note Text: Nursing Progress Note Patient Name: Sarina Lovett Patient Location: [facility]2B24/[id number] Daily Note: 0900 monitor SR B3. denies [...] ordered/started. ECHO ordered. continue assess. 1400 Cardiovascular [facility] in to see pt. orders received. Coreg increased for dinnertime and given. ECHO to be completed. Dr. Browne in to see pt with orders. call mcdaniels in reach. continue assess. 1800 BP 151/60. hr 62. denies cp, dizziness, or palpitations. call mcdaniels in reach. continue assess. This note was completed by: Kiko Gillespie [facility] HNO ID: [id number] Author: Amanda Retana (Rt) Service: Radiology Author Type: Wholesaler Type: Allied Health Filed: 06/29/2018 1:04 PM [...] RT Lainey June 29, 2018 1:03 PM [facility] HNO ID: [id number] Author: Amanda Retana (Rt) Service: Radiology Author Type: Wholesaler Type: Allied Health Filed: 06/29/2018 1:02 PM [...] RT June 29, 2018 1:02 PM Normal [facility] CBC and Differentialon 06-29 Abs Baso 0.03 k/uL Normal <0.11 [facility] Comment on above: Performed By: #### P TT, NTBNP, HSTNT, CBCDIF, PT, CKCKMB, CMP #### [place] [address] Abs [place] 0.67 k/uL Normal <0.87 [facility] Comment on above: Performed By: #### P TT, NTBNP, HSTNT, CBCDIF, PT, CKCKMB, CMP #### [place] [address] Abs Neut 8.15 k/uL High 1.45-7.50 [facility] Comment on above: Performed By: #### P TT, NTBNP, HSTNT, CBCDIF, PT, CKCKMB, CMP #### [place] [address] Absolute nRBC <0.01 Normal <0.01 [facility] Comment on above: Performed By: #### P TT, NTBNP, HSTNT, CBCDIF, PT, CKCKMB, CMP #### [place] [address] Basophils/100 WBC (Bld) 0.3 % Normal [facility] Comment on above: Performed By: #### P TT, NTBNP, HSTNT, CBCDIF, PT, CKCKMB, CMP #### [place] [address] DTYPE Auto Diff Normal [facility] Comment on above: Performed By: #### P TT, NTBNP, HSTNT, CBCDIF, PT, CKCKMB, CMP #### [place] [address] Eosinophils #/vol (Bld) 0.03 10*3/uL Normal <0.46 [facility] Comment on above: Performed By: #### P TT, NTBNP, HSTNT, CBCDIF, PT, CKCKMB, CMP #### [place] [address] Eosinophils/100 WBC (Bld) 0.3 % Normal [facility] Comment on above: Performed By: #### P TT, NTBNP, HSTNT, CBCDIF, PT, CKCKMB, CMP #### [place] [address] Erythrocyte distribution width Ratio (RBC) 14.5 % Normal 11.5-15.0 [facility] Comment on above: Performed By: #### P TT, NTBNP, HSTNT, CBCDIF, PT, CKCKMB, CMP #### [place] [address] Hematocrit Volume Fraction (Bld) 33.8 % Low 36.0-46.0 [facility] Comment on above: Performed By: #### P TT, NTBNP, HSTNT, CBCDIF, PT, CKCKMB, CMP #### [place] [address] Hemoglobin mass conc (Bld) 10.5 g/dL Low 11.5-15.5 [facility] Comment on above: Performed By: #### P TT, NTBNP, HSTNT, CBCDIF, PT, CKCKMB, CMP #### [place] [address] Lymphocytes #/vol (Bld) 0.90 10*3/uL Low 1.00-4.00 [facility] Comment on above: Performed By: #### P TT, NTBNP, HSTNT, CBCDIF, PT, CKCKMB, CMP #### [address] Lymphocytes/100 WBC (Bld) 9.2 % Normal [facility] Comment on above: Performed By: #### P TT, NTBNP, HSTNT, CBCDIF, PT, CKCKMB, CMP #### [place] [phone] MCH Entitic mass (RBC) 27.3 pG Normal 26.0-34.0 [facility] Comment on above: Performed By: #### P TT, NTBNP, HSTNT, CBCDIF, PT, CKCKMB, CMP #### [place] [address] MCHC mass conc (RBC) 31.1 g/dL Normal 30.5-36.0 [facility] Comment on above: Performed By: #### P TT, NTBNP, HSTNT, CBCDIF, PT, CKCKMB, CMP #### [place] [phone] MCV Entitic volume (RBC) 88.0 fL Normal 80.0-100.0 [facility] Comment on above: Performed By: #### P TT, NTBNP, HSTNT, CBCDIF, PT, CKCKMB, CMP #### [place] [phone] Monocytes/100 WBC (Bld) 6.9 % Normal [facility] Comment on above: Performed By: #### P TT, NTBNP, HSTNT, CBCDIF, PT, CKCKMB, CMP #### [place] [phone] Neutrophils/100 WBC (Bld) 83.3 % Normal [facility] Comment on above: Performed By: #### P TT, NTBNP, HSTNT, CBCDIF, PT, CKCKMB, CMP #### [phone] NRBCs 0.0 /100 WBC Normal 0 [facility] Comment on above: Performed By: #### P TT, NTBNP, HSTNT, CBCDIF, PT, CKCKMB, CMP #### [place] [phone] Platelet mean volume Entitic volume (Bld) 10.3 fL Normal 9.0-12.7 [facility] Comment on above: Performed By: #### P TT, NTBNP, HSTNT, CBCDIF, PT, CKCKMB, CMP #### [phone] Platelets #/vol (Bld) 281 10*3/uL Normal 150-400 [facility] Comment on above: Performed By: #### P TT, NTBNP, HSTNT, CBCDIF, PT, CKCKMB, CMP #### [place] [phone] RBC #/vol (Bld) 3.84 10*6/uL Low 3.90-5.20 [facility] Comment on above: Performed By: #### P TT, NTBNP, HSTNT, CBCDIF, PT, CKCKMB, CMP #### [place] [phone] WBC #/vol (Bld) 9.78 10*3/uL Normal 3.70-11.00 [facility] Comment on above: Performed By: #### P TT, NTBNP, HSTNT, CBCDIF, PT, CKCKMB, CMP #### [place] [phone] Comp Metabolic Panelon 06-29 Albumin mass conc 3.8 g/dL Normal 3.5-5.0 [facility] Comment on above: Performed By: #### P TT, NTBNP, HSTNT, CBCDIF, PT, CKCKMB, CMP #### [place] [phone] ALP enzyme act/vol 96 U/L Normal 34-123 [facility] Comment on above: Performed By: #### P TT, NTBNP, HSTNT, CBCDIF, PT, CKCKMB, CMP #### [place] [phone] ALT enzyme act/vol 17 U/L Normal 0-45 [facility] Comment on above: Performed By: #### P TT, NTBNP, HSTNT, CBCDIF, PT, CKCKMB, CMP #### [address] Anion gap molar conc 14 mmol/L Normal 9-18 [facility] Comment on above: Performed By: #### P TT, NTBNP, HSTNT, CBCDIF, PT, CKCKMB, CMP #### [place] [address] AST enzyme act/vol 16 U/L Normal 7-40 [facility] Comment on above: Performed By: #### P TT, NTBNP, HSTNT, CBCDIF, PT, CKCKMB, CMP #### [place] [id number] Bilirubin mass conc 0.5 mg/dL Normal 0.2-1.3 [facility] Comment on above: Performed By: #### P TT, NTBNP, HSTNT, CBCDIF, PT, CKCKMB, CMP #### [address] Calcium mass conc 8.7 mg/dL Normal 8.5-10.5 [facility] Comment on above: Performed By: #### P TT, NTBNP, HSTNT, CBCDIF, PT, CKCKMB, CMP #### [place] [phone] Chloride molar conc 103 mmol/L Normal 98-110 [facility] Comment on above: Performed By: #### P TT, NTBNP, HSTNT, CBCDIF, PT, CKCKMB, CMP #### [place] [phone] CO2 molar conc 23 mmol/L Normal 23-32 [facility] Comment on above: Performed By: #### P TT, NTBNP, HSTNT, CBCDIF, PT, CKCKMB, CMP #### [place] [phone] Creatinine mass conc 1.02 mg/dL Normal 0.70-1.40 [facility] Comment on above: Performed By: #### P TT, NTBNP, HSTNT, CBCDIF, PT, CKCKMB, CMP #### [place] [phone] eGFR- Amer. >60 Normal >60 [facility] Comment on above: Performed By: #### P TT, NTBNP, HSTNT, CBCDIF, PT, CKCKMB, CMP #### [place] [phone] GFR/1.73 sq M predicted among non-blacks MDRD vol rate/area (S/P/Bld) 53 . Low >60 [facility] Comment on above: Performed By: #### P TT, NTBNP, HSTNT, CBCDIF, PT, CKCKMB, CMP #### [place] [phone] Glucose mass conc 154 mg/dL High 65-100 [facility] Comment on above: Performed By: #### P TT, NTBNP, HSTNT, CBCDIF, PT, CKCKMB, CMP #### [place] [phone] Potassium molar conc 3.2 mmol/L Low 3.5-5.0 [facility] Comment on above: Performed By: #### P TT, NTBNP, HSTNT, CBCDIF, PT, CKCKMB, CMP #### [place] [phone] Protein mass conc 7.1 g/dL Normal 6.0-8.4 [facility] Comment on above: Performed By: #### P TT, NTBNP, HSTNT, CBCDIF, PT, CKCKMB, CMP #### [place] [phone] Sodium molar conc 140 mmol/L Normal 132-148 [facility] Comment on above: Performed By: #### P TT, NTBNP, HSTNT, CBCDIF, PT, CKCKMB, CMP #### [place] [phone] Urea nitrogen mass conc 16 mg/dL Normal 8-25 [facility] Comment on above: Performed By: #### P TT, NTBNP, HSTNT, CBCDIF, PT, CKCKMB, CMP #### [place] [phone] ECG COMPLETEon 06-29-2018 ECG COMPLETE NAME : SARINA LOVETT PID : [id number] : 1945 Gender : Female Race : ORD : [id number] Procedure Date : Jun 29 2018 11:05:45 Edit Date : Jun 29 2018 18:18:45 Diagnosis:SINUS RHYTHM 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 HYPERTROPHY Abnormal ECG 1109 Confirmed by MD ÁLVAREZ ANDREW ([id number]), strainer mill operator RUBI WARNER ([id number]) on 06/29/2018 6:18:39 PM Ventricular Rate : 75 BPM Atrial Rate : 76 BPM P-R Interval : 216 ms QRS Duration : 170 ms Q-T Interval : 476 ms QTC Calculation(Bezet) : 532 ms P [place] : 5 degrees R [place] : -64 degrees T [place] : 65 degrees Test Reason : Chest Pain Location : 402 : FVED RW Overread By : MD ÁLVAREZ ANDREW Edited By : RUBI WARNER Referred By : , Acquired by : Michelle DELEON [facility] ED PROV NOTEon 06-29-2018 Protein mass conc HNO ID: [id number] Author: Juanito Álvarez MD Service: Emergency Medicine [...] did not take home blood pressure medications SHIPWRIGHT PAST MEDICAL 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 - Aortic valve disorders - Cancer (HCC) - Coronary atherosclerosis of unspecified type of vessel, [place] or graft Coronary Atherosclerosis - Diabetes (HCC) [...] hypokalemia at 3.2. No metabolic dysfunction. ProBNP >07203, trop mildly elevated above baseline 42 CXR [...] x-ray with evidence of mild congestion, proBNP >07056, patient with peripheral edema and dyspnea on [...] of care The patient was ADMITTED TO: [facility]. Case discussed with admitting physician, Dr. Graff. Condition at time of disposition: stable SIGNATURE: DENISHA Kimbrough) DENISHA Ortiz 06/29/18 1402 DENISHA Kimbrough (Pa) 06/29/18 1403 Attending Note I have personally performed a face to face assessment of the patient and have reviewed the PA/POWDER MILL OPERATOR note. My olivera findings include: Patient with [...] PM Juanito Álvarez MD 06/29/18 1817 Normal [facility] High Sens Troponin Ton 06-29 High Sensitivity ANGE 42 ng/L High <12 [facility] Comment on above: Result Comment: When [...] NTBNP, HSTNT, CBCDIF, PT, CKCKMB, CMP #### [place] [address] High Sensitivity ANGE 42 ng/L High <12 [facility] Comment on above: Result Comment: When [...] NTBNP, HSTNT, CBCDIF, PT, CKCKMB, CMP #### [place] [phone] Magnesiumon 06-29-2018 Magnesium mass conc 1.6 mg/dL Low 1.7-2.6 [facility] Comment on above: Performed By: #### P TT, NTBNP, HSTNT, CBCDIF, PT, CKCKMB, CMP #### [facility] [address] [place] [address] NT Pro BNPon 06-29-2018 Protein mass conc g/dL High <125 [facility] Comment on above: Result Comment: Resu lt checked and verified Performed By: #### P TT, NTBNP, HSTNT, CBCDIF, PT, CKCKMB, CMP #### [place] [phone] NURSING PROGon 06-29-2018 Protein mass conc HNO ID: [id number] Author: Nicole Ronquillo (Rn) DEBBIE Jacome Service: ? Author Type: Registered Nurse Type: Nursing Progress Note Filed: 06/29/2018 6:28 PM Note Text: Nursing Progress Note Patient Name: Sarina Lovett Patient Location: [place] [address] [address] Daily Note:1612 Pt arrived from ED via [...] note was completed by: Nicole Jacome RN [facility] XR CHEST 1V FRONTAL PORTon 0 06-29-2018 [...] sternotomy. Other: . IMPRESSION: Cardiomegaly and congestion. Turkey Farmer: PSCB Transcribe Date/Time: Jun 29 2018 12:57P Dictated by : KIRSTIE ANDRADE MD This examination was interpreted and the report reviewed and electronically signed by: KIRSTIE ANDRADE MD on Jun 29 2018 12:57PM EST [id number] [facility] ALLIED HEALTHon 06-06-2018 ALLIED HEALTH HNO ID: [id number] Author: Amanda Morales (Tech) Service: ? Author Type: Wholesaler Type: Allied Health Filed: 06/06/2018 3:28 PM [...] Amanda Morales June 06, 2018 3:27 PM [facility] ED NOTEon 06-06-2018 ED NOTE HNO ID: [id number] Author: Akosua (Rn) DEBBIE Johnston Service: ? Author Type: Registered Nurse Type: ED Notes Filed: 06/06/2018 4:05 PM Note Text: Bed: 67-ED Expected date: Expected time: Means of arrival: Comments: [facility] ED PROV NOTEon 06-06-2018 Protein mass conc HNO ID: [id number] Author: Loretta Duran MD Service: Emergency Medicine [...] Coronary atherosclerosis of unspecified type of vessel, [place] or graft Coronary Atherosclerosis - Diabetes (HCC) [...] SIGNATURE: MD Loretta Santana MD 06/06/18 1625 [facility] ED Triage Noteon 06-06-2018 ED Triage Note HNO ID: [id number] Author: Lissette Mondragon (Pa) Service: Emergency Medicine Author Type: Physician Carrier Washer Type: ED Triage Notes Filed: 06/06/2018 3:02 PM Note Text: Initial Provider Assessment: HPI: 73 year old female with complaint of left foot injury. Exam: Reviewed nursing notes and vitals Heent: PERRLA, Oropharynx normal. Ext: Mild swelling and tenderness to left lateral foot Plan: assess in ER Lissette Mondragon PA-C [facility] XR FOOT 3V AP/LAT/OBL LTon 0 06-06-2018 [...] unremarkable. IMPRESSION: NO ACUTE ABNORMALITY IS IDENTIFIED. Turkey Farmer: PSCB Transcribe Date/Time: Jun 06 2018 3:44P Dictated by : RADHA MCNEIL MD This examination was interpreted and the report reviewed and electronically signed by: RADHA MCNEIL MD on Jun 06 2018 3:46PM EST [id number] [facility] OBSOLETEon 06-02-2018 OBSOLETE Refill (CARDFV) SARINA LOVETT ([id number]) 1945 F Date Time Provider Department 06/02/18 Joy BROWNE During your visit today, we recorded the following information about you: Heidi Montezjoy Physical Fitness Teacher II 06/02/2018 5:21 PM Signed Patient phones requesting refills as follows: Pending Prescriptions Disp Refills NITROGLYCERIN 0.4 MG SUBLINGUAL TABLET 25 tablet 5 Sig: DISSOLVE 1 TABLET UNDER THE TONGUE NEEDED FOR CHEST PAIN MARIO: Yes Please review and advise. Heidi Montezjoy Physical Fitness Teacher II Allergies As of Date: 06/02/2018 Noted [...] Status:Closed by Joy BROWNE MD on 06/04/18 [facility] CNOVon 05-02-2018 CNOV Office Visit (CARDFV ) SARINA LOVETT ([id number]) 1945 F Date Time Provider Department 05/02/18 11:30 AM Joy BROWNE During your visit today, we recorded the following information about you: Pulse Blood pressure Weight Height 80/minute 145/90 73.8 kg 1.702 m Joy Browne MD 05/02/2018 11:59 AM Written Joy Browne MD 05/02/2018 12:08 PM Signed [facility] Department of Cardiovascular Medicine [facility] OUTPATIENT VISIT DATE May 02, 2018 OUTPATIENT VISIT TYPE Established Patient PRIMARY CARE PHYSICIAN: Sadia Diaz MD ([facility]) [address] [place] [address] REFERRING PHYSICIAN: Sacha Ford MD [address] [facility] [phone] CHIEF COMPLAINT: Office Follow-Up Visit HISTORY OF [...] Coronary atherosclerosis of unspecified type of vessel, [place] or graft Coronary Atherosclerosis - Diabetes (HCC) [...] . (I25.110) Atherosclerosis of coronary artery of [place] heart with unstable angina pectoris, unspecified vessel or lesion type (HCC) Will resume coreg PLAN AND RECOMMENDATIONS: Lipid is managed and blood testing is done by pcp CONTACT INFORMATION: MD Akash Robbins and [facility] Department of Cardiovascular Medicine Heart [facility] V[facility] Cardiology [address] [place] [address] Referring Provider: SACHA SCHROEDER [[id number]] Allergies As of Date: 05/02/2018 Noted Allergy [...] Visit Diagnoses:Atheroscler osis of coronary artery of [place] heart with unstable angina pectoris, unspecified vessel [...] by Joy BROWNE MD on 05/02/18 Normal [facility] PROGRESSon 05-02-2018 Protein mass conc HNO ID: [id number] Author: Joy Browne Service: ? Author Type: Physician Type: Progress Notes Filed: 05/02/2018 12:08 PM Note Text: [facility] Department of Cardiovascular Medicine [facility] OUTPATIENT VISIT DATE May 02, 2018 OUTPATIENT VISIT TYPE Established Patient PRIMARY CARE PHYSICIAN: Sadia Diaz MD ([facility]) [address] [place] [id number] REFERRING PHYSICIAN: Sacha Ford MD [address] [facility] [phone] CHIEF COMPLAINT: Office Follow-Up Visit HISTORY OF [...] Coronary atherosclerosis of unspecified type of vessel, [place] or graft Coronary Atherosclerosis - Diabetes (HCC) [...] . (I25.110) Atherosclerosis of coronary artery of [place] heart with unstable angina pectoris, unspecified vessel or lesion type (HCC) Will resume coreg PLAN AND RECOMMENDATIONS: Lipid is managed and blood testing is done by pcp CONTACT INFORMATION: MD Akash Robbins and Uy[facility] Department of Cardiovascular Medicine Heart and Vascular [facility] Cardiology [address] [place] [address] [address] [place] [address] [facility] ALLIED HEALTHon 04-08-2018 ALLIED HEALTH HNO ID: [id number] Author: Vanessa Ulrich) Manuel Service: Cardiovascular Surgery Author Type: Nurse Practitioner Type: Allied Health Filed: 05/02/2018 12:17 PM Note Text: Addendum: Admission Date: 03/26/2018 NYHA Class III 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, INSTRUMENT AND ELECTRICAL TECHNICIAN.EDGE BURNISHER Normal [facility] Basic Metabolic Panlon 04-08 Anion gap molar conc 12 mmol/L Normal 9-18 [facility] Comment on above: Performed By: #### P TT, NTBNP, HSTNT, CBCDIF, PT, CKCKMB, CMP #### [facility] [address] [place] [address] Calcium mass conc 8.7 mg/dL Normal 8.5-10.5 [facility] Comment on above: Performed By: #### P TT, NTBNP, HSTNT, CBCDIF, PT, CKCKMB, CMP #### [place] [address] Chloride molar conc 97 mmol/L Low 98-110 [facility] Comment on above: Performed By: #### P TT, NTBNP, HSTNT, CBCDIF, PT, CKCKMB, CMP #### [place] [phone] CO2 molar conc 30 mmol/L Normal 23-32 [facility] Comment on above: Performed By: #### P TT, NTBNP, HSTNT, CBCDIF, PT, CKCKMB, CMP #### [place] [phone] Creatinine mass conc 1.70 mg/dL High 0.70-1.40 [facility] Comment on above: Performed By: #### P TT, NTBNP, HSTNT, CBCDIF, PT, CKCKMB, CMP #### [place] [phone] eGFR- Amer. 36 Low >60 [facility] Comment on above: Performed By: #### P TT, NTBNP, HSTNT, CBCDIF, PT, CKCKMB, CMP #### [place] [phone] GFR/1.73 sq M predicted among non-blacks MDRD vol rate/area (S/P/Bld) 30 . Low >60 [facility] Comment on above: Performed By: #### P TT, NTBNP, HSTNT, CBCDIF, PT, CKCKMB, CMP #### [place] [phone] Glucose mass conc 142 mg/dL High 65-100 [facility] Comment on above: Performed By: #### P TT, NTBNP, HSTNT, CBCDIF, PT, CKCKMB, CMP #### [place] [phone] Potassium molar conc 4.6 mmol/L Normal 3.5-5.0 [facility] Comment on above: Performed By: #### P TT, NTBNP, HSTNT, CBCDIF, PT, CKCKMB, CMP #### [place] [phone] Sodium molar conc 139 mmol/L Normal 132-148 [facility] Comment on above: Performed By: #### P TT, NTBNP, HSTNT, CBCDIF, PT, CKCKMB, CMP #### [place] [phone] Urea nitrogen mass conc 53 mg/dL High 8-25 [facility] Comment on above: Performed By: #### P TT, NTBNP, HSTNT, CBCDIF, PT, CKCKMB, CMP #### [place] [phone] CBC and Differentialon 04-08 Abs Baso <0.03 Normal <0.11 [facility] Comment on above: Performed By: #### P TT, NTBNP, HSTNT, CBCDIF, PT, CKCKMB, CMP #### [place] [phone] Abs [place] 0.60 k/uL Normal <0.87 [facility] Comment on above: Performed By: #### P TT, NTBNP, HSTNT, CBCDIF, PT, CKCKMB, CMP #### [place] [phone] Abs Neut 6.77 k/uL Normal 1.45-7.50 [facility] Comment on above: Performed By: #### P TT, NTBNP, HSTNT, CBCDIF, PT, CKCKMB, CMP #### [place] [phone] Basophils/100 WBC (Bld) 0.2 % Normal [facility] Comment on above: Performed By: #### P TT, NTBNP, HSTNT, CBCDIF, PT, CKCKMB, CMP #### [place] [phone] DTYPE Auto Diff Normal [facility] Comment on above: Performed By: #### P TT, NTBNP, HSTNT, CBCDIF, PT, CKCKMB, CMP #### [place] [address] Eosinophils #/vol (Bld) 0.11 10*3/uL Normal <0.46 [facility] Comment on above: Performed By: #### P TT, NTBNP, HSTNT, CBCDIF, PT, CKCKMB, CMP #### [place] [address] Eosinophils/100 WBC (Bld) 1.3 % Normal [facility] Comment on above: Performed By: #### P TT, NTBNP, HSTNT, CBCDIF, PT, CKCKMB, CMP #### [place] [address] Erythrocyte distribution width Ratio (RBC) 13.8 % Normal 11.5-15.0 [facility] Comment on above: Performed By: #### P TT, NTBNP, HSTNT, CBCDIF, PT, CKCKMB, CMP #### [place] [address] Hematocrit Volume Fraction (Bld) 29.6 % Low 36.0-46.0 [facility] Comment on above: Performed By: #### P TT, NTBNP, HSTNT, CBCDIF, PT, CKCKMB, CMP #### [place] [address] Hemoglobin mass conc (Bld) 9.4 g/dL Low 11.5-15.5 [facility] Comment on above: Performed By: #### P TT, NTBNP, HSTNT, CBCDIF, PT, CKCKMB, CMP #### [place] [address] Lymphocytes #/vol (Bld) 1.16 10*3/uL Normal 1.00-4.00 [facility] Comment on above: Performed By: #### P TT, NTBNP, HSTNT, CBCDIF, PT, CKCKMB, CMP #### [phone] Lymphocytes/100 WBC (Bld) 13.4 % Normal [facility] Comment on above: Performed By: #### P TT, NTBNP, HSTNT, CBCDIF, PT, CKCKMB, CMP #### [place] [phone] MCH Entitic mass (RBC) 29.3 pG Normal 26.0-34.0 [facility] Comment on above: Performed By: #### P TT, NTBNP, HSTNT, CBCDIF, PT, CKCKMB, CMP #### [place] [phone] MCHC mass conc (RBC) 31.8 g/dL Normal 30.5-36.0 [facility] Comment on above: Performed By: #### P TT, NTBNP, HSTNT, CBCDIF, PT, CKCKMB, CMP #### [place] [phone] MCV Entitic volume (RBC) 92.2 fL Normal 80.0-100.0 [facility] Comment on above: Performed By: #### P TT, NTBNP, HSTNT, CBCDIF, PT, CKCKMB, CMP #### [place] [phone] Monocytes/100 WBC (Bld) 6.9 % Normal [facility] Comment on above: Performed By: #### P TT, NTBNP, HSTNT, CBCDIF, PT, CKCKMB, CMP #### [phone] Neutrophils/100 WBC (Bld) 78.2 % Normal [facility] Comment on above: Performed By: #### P TT, NTBNP, HSTNT, CBCDIF, PT, CKCKMB, CMP #### [place] [phone] Platelet mean volume Entitic volume (Bld) 10.0 fL Normal 9.0-12.7 [facility] Comment on above: Performed By: #### P TT, NTBNP, HSTNT, CBCDIF, PT, CKCKMB, CMP #### [place] [phone] Platelets #/vol (Bld) 225 10*3/uL Normal 150-400 [facility] Comment on above: Performed By: #### P TT, NTBNP, HSTNT, CBCDIF, PT, CKCKMB, CMP #### [place] [phone] RBC #/vol (Bld) 3.21 10*6/uL Low 3.90-5.20 [facility] Comment on above: Performed By: #### P TT, NTBNP, HSTNT, CBCDIF, PT, CKCKMB, CMP #### [place] [phone] WBC #/vol (Bld) 8.66 10*3/uL Normal 3.70-11.00 [facility] Comment on above: Performed By: #### P TT, NTBNP, HSTNT, CBCDIF, PT, CKCKMB, CMP #### [place] [phone] CNDSon 04-08-2018 CNDS HNO ID: [id number] Author: Neftali Layton Service: General Internal Medicine [...] (HCC) (I25.110) Atherosclerosis of coronary artery of [place] heart with unstable angina pectoris, unspecified vessel [...] Principal Problem: NSTEMI (non-ST elevated myocardial infarction) ([facility]) Active Problems: Essential hypertension, benign Chest pain [...] than 101F Follow Up Appointments Follow-Up Appointment [phone] With: Dr. Andree Peters When: In 1 [...] states this feels similar to her prior [place]. She denies history of DVT/PE. She is [...] in SVG to RCA. Patient transferred to [facility] on 03/29, back to [facility] on 04/02 for increased SOB and significantly elevated troponin. Now back on [facility] Acute hypoxic respiratory failure CHF and pulmonary edema ; history of tobacco abuse Suspect worsening respiratory status due to CHF and possible underlying COPD. Required CPAP again on 04/02 and was transferred back to [facility]. CXR with significant pulmonary edema R>L, restarted [...] Out FOLLOW-UP APPOINTMENTS ALREADY SCHEDULED WITH A [facility] PROVIDER: No future appointments. Discharge Information Row Name ED to Hosp-Admission (Current) from 03/24/[address] [facility] [...] April 08, 2018 TIME: 1:09 PM Normal [facility] Magnesiumon 04-08-2018 Magnesium mass conc 1.8 mg/dL Normal 1.7-2.6 [facility] Comment on above: Performed By: #### P TT, NTBNP, HSTNT, CBCDIF, PT, CKCKMB, CMP #### [facility] [address] [place] [address] NURSING PROGon 04-08-2018 Protein mass conc HNO ID: [id number] Author: Emi (Rn) DEBBIE Jo Service: (none) Author Type: Registered Nurse Type: Nursing Progress Note Filed: 04/08/2018 3:12 PM Note Text: Nursing Progress Note Patient Name: Sarina Lovett Patient Location: PK Daily Note: Discharge instructions reviewed with pt. She is dressed and waiting for her ride home. This note was completed by: Emi Jo RN [facility] Protein mass conc HNO ID: [id number] Author: Emi (Rn) DEBBIE Jo Service: (none) Author Type: Registered Nurse Type: Nursing Progress Note Filed: 04/08/2018 1:21 PM Note Text: Nursing Progress Note Patient Name: Sarina Lovett Patient Location: -PK2A10/[id number] Daily Note: Pt. is feeling well today and is ready for d/c home. She is up in room with standby assist. Browning pulled at 0800 and she has voided 300 ml. Pt. denies pain. Heplock and telemetry pack removed. Pt. is getting dressed. This note was completed by: Emi Jo RN [facility] PLAN OF CAREon 04-08-2018 PLAN OF CARE HNO ID: [id number] Author: Sandra Grullon (Telecom Sales Consultant) Service: (none) Author Type: Pharmacist Type: Plan [...] time from Discharge Medication List. SANDRA GRULLON, CORPORATE TUTOR April 08, 2018 1:55 PM Pager: [phone] 04/08/2018 1:55 PM Medication List START taking [...] Your Medications These medications were sent to [facility] [address] [place] [phone] [facility] [phone] [phone] [facility] [phone] Hours: 24-hours ? atorvastatin 80 mg tablet ? carvedilol 3.125 mg tablet ? clopidogrel 75 mg tablet ? furosemide 40 mg tablet ? hydrALAZINE 25 mg tablet ? nitroglycerin sublingual 0.4 mg SL tablet Normal [facility] THERAPY NTon 04-08-2018 THERAPY NT HNO ID: [id number] Author: Yuko (Cashiers Supervisor) Tommy Service: Respiratory Therapy Author Type: (none) Type: Therapy (PT/OT/Speech/Resp) Filed: 04/07/2018 10:42 PM Note Text: RESPIRATORY THERAPY PROGRESS NOTE SERVICE DATE: 04/07/2018 SERVICE TIME: 2240 Patient is refusing NIV for the night at this time. Will continue to monitor and intervene if necessary. SIGNATURE: Yuko Sanders, AS400 CONSULTANT PATIENT NAME: Sarina Lovett DATE: April 07, 2018 TIME: 10:42 PM PAGER/CONTACT #: Fuentes Normal [facility] Basic Metabolic Panlon 04-07 Anion gap molar conc 13 mmol/L Normal 9-18 [facility] Comment on above: Performed By: #### P TT, NTBNP, HSTNT, CBCDIF, PT, CKCKMB, CMP #### [place] [address] Calcium mass conc 8.6 mg/dL Normal 8.5-10.5 [facility] Comment on above: Performed By: #### P TT, NTBNP, HSTNT, CBCDIF, PT, CKCKMB, CMP #### [place] [address] Chloride molar conc 98 mmol/L Normal 98-110 [facility] Comment on above: Performed By: #### P TT, NTBNP, HSTNT, CBCDIF, PT, CKCKMB, CMP #### [place] [address] CO2 molar conc 27 mmol/L Normal 23-32 [facility] Comment on above: Performed By: #### P TT, NTBNP, HSTNT, CBCDIF, PT, CKCKMB, CMP #### [place] [address] Creatinine mass conc 1.74 mg/dL High 0.70-1.40 [facility] Comment on above: Performed By: #### P TT, NTBNP, HSTNT, CBCDIF, PT, CKCKMB, CMP #### [place] [address] eGFR- Amer. 35 Low >60 [facility] Comment on above: Performed By: #### P TT, NTBNP, HSTNT, CBCDIF, PT, CKCKMB, CMP #### [place] [phone] GFR/1.73 sq M predicted among non-blacks MDRD vol rate/area (S/P/Bld) 29 . Low >60 [facility] Comment on above: Performed By: #### P TT, NTBNP, HSTNT, CBCDIF, PT, CKCKMB, CMP #### [place] [phone] Glucose mass conc 145 mg/dL High 65-100 [facility] Comment on above: Performed By: #### P TT, NTBNP, HSTNT, CBCDIF, PT, CKCKMB, CMP #### [place] [phone] Potassium molar conc 4.5 mmol/L Normal 3.5-5.0 [facility] Comment on above: Performed By: #### P TT, NTBNP, HSTNT, CBCDIF, PT, CKCKMB, CMP #### [place] [phone] Sodium molar conc 138 mmol/L Normal 132-148 [facility] Comment on above: Performed By: #### P TT, NTBNP, HSTNT, CBCDIF, PT, CKCKMB, CMP #### [place] [phone] Urea nitrogen mass conc 60 mg/dL High 8-25 [facility] Comment on above: Performed By: #### P TT, NTBNP, HSTNT, CBCDIF, PT, CKCKMB, CMP #### [place] [phone] CASE MANAGEMon 04-07-2018 CASE MANAGEM HNO ID: [id number] Author: Bro Wood (Sw) Service: Care Management Author Type: Tank Washer Type: Care Mgt Progress Note Filed: 04/07/2018 11:45 AM Note Text: CARE MANAGEMENT PROGRESS NOTE SERVICE DATE: 04/07/2018 SERVICE TIME: 10:26 AM LOS: 14 days Needs Prior to Discharge: To Be Determined Patient transferred to [facility]. Plan is home health care at discharge. [facility] can accept, home care order needed. Patient may need home O2. Desat study needed. May benefit from the [facility] for CHF management. SIGNATURE: KARRIE FORTE PATIENT NAME: Sarina Lovett DATE: April 07, 2018 TIME: 10:26 AM PAGER/CONTACT #: [phone] Normal [facility] CBC and Differentialon 04-07 Abs Baso <0.03 Normal <0.11 [facility] Comment on above: Performed By: #### P TT, NTBNP, HSTNT, CBCDIF, PT, CKCKMB, CMP #### [place] [address] Abs [place] 0.57 k/uL Normal <0.87 [facility] Comment on above: Performed By: #### P TT, NTBNP, HSTNT, CBCDIF, PT, CKCKMB, CMP #### [place] [phone] Abs Neut 5.40 k/uL Normal 1.45-7.50 [facility] Comment on above: Performed By: #### P TT, NTBNP, HSTNT, CBCDIF, PT, CKCKMB, CMP #### [address] Basophils/100 WBC (Bld) 0.3 % Normal [facility] Comment on above: Performed By: #### P TT, NTBNP, HSTNT, CBCDIF, PT, CKCKMB, CMP #### [place] [phone] DTYPE Auto Diff Normal [facility] Comment on above: Performed By: #### P TT, NTBNP, HSTNT, CBCDIF, PT, CKCKMB, CMP #### [place] [phone] Eosinophils #/vol (Bld) 0.12 10*3/uL Normal <0.46 [facility] Comment on above: Performed By: #### P TT, NTBNP, HSTNT, CBCDIF, PT, CKCKMB, CMP #### [place] [address] Eosinophils/100 WBC (Bld) 1.7 % Normal [facility] Comment on above: Performed By: #### P TT, NTBNP, HSTNT, CBCDIF, PT, CKCKMB, CMP #### [place] [address] Erythrocyte distribution width Ratio (RBC) 13.8 % Normal 11.5-15.0 [facility] Comment on above: Performed By: #### P TT, NTBNP, HSTNT, CBCDIF, PT, CKCKMB, CMP #### [place] [address] Hematocrit Volume Fraction (Bld) 29.9 % Low 36.0-46.0 [facility] Comment on above: Performed By: #### P TT, NTBNP, HSTNT, CBCDIF, PT, CKCKMB, CMP #### [place] [address] Hemoglobin mass conc (Bld) 9.3 g/dL Low 11.5-15.5 [facility] Comment on above: Performed By: #### P TT, NTBNP, HSTNT, CBCDIF, PT, CKCKMB, CMP #### [place] [address] Lymphocytes #/vol (Bld) 0.79 10*3/uL Low 1.00-4.00 [facility] Comment on above: Performed By: #### P TT, NTBNP, HSTNT, CBCDIF, PT, CKCKMB, CMP #### [place] [id number] Lymphocytes/100 WBC (Bld) 11.4 % Normal [facility] Comment on above: Performed By: #### P TT, NTBNP, HSTNT, CBCDIF, PT, CKCKMB, CMP #### [place] [phone] MCH Entitic mass (RBC) 28.9 pG Normal 26.0-34.0 [facility] Comment on above: Performed By: #### P TT, NTBNP, HSTNT, CBCDIF, PT, CKCKMB, CMP #### [place] [phone] MCHC mass conc (RBC) 31.1 g/dL Normal 30.5-36.0 [facility] Comment on above: Performed By: #### P TT, NTBNP, HSTNT, CBCDIF, PT, CKCKMB, CMP #### [place] [phone] MCV Entitic volume (RBC) 92.9 fL Normal 80.0-100.0 [facility] Comment on above: Performed By: #### P TT, NTBNP, HSTNT, CBCDIF, PT, CKCKMB, CMP #### [place] [phone] Monocytes/100 WBC (Bld) 8.3 % Normal [facility] Comment on above: Performed By: #### P TT, NTBNP, HSTNT, CBCDIF, PT, CKCKMB, CMP #### [place] [phone] Neutrophils/100 WBC (Bld) 78.3 % Normal [facility] Comment on above: Performed By: #### P TT, NTBNP, HSTNT, CBCDIF, PT, CKCKMB, CMP #### [place] [phone] Platelet mean volume Entitic volume (Bld) 10.2 fL Normal 9.0-12.7 [facility] Comment on above: Performed By: #### P TT, NTBNP, HSTNT, CBCDIF, PT, CKCKMB, CMP #### [place] [phone] Platelets #/vol (Bld) 235 10*3/uL Normal 150-400 [facility] Comment on above: Performed By: #### P TT, NTBNP, HSTNT, CBCDIF, PT, CKCKMB, CMP #### [place] [phone] RBC #/vol (Bld) 3.22 10*6/uL Low 3.90-5.20 [facility] Comment on above: Performed By: #### P TT, NTBNP, HSTNT, CBCDIF, PT, CKCKMB, CMP #### [place] [phone] WBC #/vol (Bld) 6.90 10*3/uL Normal 3.70-11.00 [facility] Comment on above: Performed By: #### P TT, NTBNP, HSTNT, CBCDIF, PT, CKCKMB, CMP #### [place] [phone] CONSULT PROGon 04-07-2018 Protein mass conc HNO ID: [id number] Author: Clif Dhillon Service: Nephrology Author Type: [...] 2-3 weeks Clif Jarvis MD [facility] Normal [facility] Magnesiumon 04-07-2018 Magnesium mass conc 1.9 mg/dL Normal 1.7-2.6 [facility] Comment on above: Performed By: #### P TT, NTBNP, HSTNT, CBCDIF, PT, CKCKMB, CMP #### [facility] [address] [place] [address] PROGRESSon 04-07-2018 Protein mass conc HNO ID: [id number] Author: Jose Jack Service: Pulmonary Disease Author [...] to pulmonary edema secondary to acute non-Q-wave LA Improving with current treatment and now with [...] be extrapolated by contextual derivation. ?? Normal [facility] Protein mass conc HNO ID: [id number] Author: Joy Browne Service: Cardiovascular Disease Author Type: Physician Type: Progress Notes Filed: 04/07/2018 1:11 PM Note Text: Doing very well No sob no chest pain Renal improving Cxr improved. Stable on current rx Ok for discharge Follow up as out patient In one week Continue present treatment No los due to akd Normal [facility] Protein mass conc HNO ID: [id number] Author: Andree Peters Service: General Internal Medicine [...] in SVG to RCA. Patient transferred to [facility] on 03/29, back to [facility] on 04/02 for increased SOB and significantly elevated troponin. Now back on [facility] ? Acute hypoxic respiratory failure CHF and pulmonary edema ; history of tobacco abuse Suspect worsening respiratory status due to CHF and possible underlying COPD. Required CPAP again on 04/02 and was transferred back to [facility]. CXR with significant pulmonary edema R>L, restarted [...] home, last A1c 9.3% in 08/2016 at [facility]. Repeat A1c on admission 6.0%. - SSI1 [...] 03/24/182044 vte non-pharmacologic prophylaxis - none indicated (nd,in) 03/24/182044 activity - mobilize patient ([place], [place]) VTE Prophylaxis: VTE prophylaxis appropriate SIGNATURE: Andree Peters MD PATIENT NAME: Sarina Lovett DATE: April 07, 2018 TIME: 10:11 AM PAGER: [facility] ALLIED HEALTHon 04-06-2018 ALLIED HEALTH HNO ID: [id number] Author: Amanda Koenig (Rt) Service: Radiology Author Type: Wholesaler Type: Allied Health Filed: 04/06/2018 6:24 AM [...] RT Arya April 06, 2018 6:23 AM [facility] Basic Metabolic Panlon 04-06 Anion gap molar conc 11 mmol/L Normal 9-18 [facility] Comment on above: Performed By: #### P TT, NTBNP, HSTNT, CBCDIF, PT, CKCKMB, CMP #### [place] [phone] Calcium mass conc 8.7 mg/dL Normal 8.5-10.5 [facility] Comment on above: Performed By: #### P TT, NTBNP, HSTNT, CBCDIF, PT, CKCKMB, CMP #### [place] [phone] Chloride molar conc 97 mmol/L Low 98-110 [facility] Comment on above: Performed By: #### P TT, NTBNP, HSTNT, CBCDIF, PT, CKCKMB, CMP #### [place] [phone] CO2 molar conc 29 mmol/L Normal 23-32 [facility] Comment on above: Performed By: #### P TT, NTBNP, HSTNT, CBCDIF, PT, CKCKMB, CMP #### [place] [phone] Creatinine mass conc 1.89 mg/dL High 0.70-1.40 [facility] Comment on above: Performed By: #### P TT, NTBNP, HSTNT, CBCDIF, PT, CKCKMB, CMP #### [place] [phone] eGFR- Amer. 32 Low >60 [facility] Comment on above: Performed By: #### P TT, NTBNP, HSTNT, CBCDIF, PT, CKCKMB, CMP #### [place] [phone] GFR/1.73 sq M predicted among non-blacks MDRD vol rate/area (S/P/Bld) 26 . Low >60 [facility] Comment on above: Performed By: #### P TT, NTBNP, HSTNT, CBCDIF, PT, CKCKMB, CMP #### [place] [phone] Glucose mass conc 134 mg/dL High 65-100 [facility] Comment on above: Performed By: #### P TT, NTBNP, HSTNT, CBCDIF, PT, CKCKMB, CMP #### [place] [phone] Potassium molar conc 5.1 mmol/L High 3.5-5.0 [facility] Comment on above: Performed By: #### P TT, NTBNP, HSTNT, CBCDIF, PT, CKCKMB, CMP #### [place] [address] Sodium molar conc 137 mmol/L Normal 132-148 [facility] Comment on above: Performed By: #### P TT, NTBNP, HSTNT, CBCDIF, PT, CKCKMB, CMP #### [place] [phone] Urea nitrogen mass conc 62 mg/dL High 8-25 [facility] Comment on above: Performed By: #### P TT, NTBNP, HSTNT, CBCDIF, PT, CKCKMB, CMP #### [place] [phone] CBC and Differentialon 04-06 Abs Baso <0.03 Normal <0.11 [facility] Comment on above: Performed By: #### P TT, NTBNP, HSTNT, CBCDIF, PT, CKCKMB, CMP #### [place] [phone] Abs [place] 0.53 k/uL Normal <0.87 [facility] Comment on above: Performed By: #### P TT, NTBNP, HSTNT, CBCDIF, PT, CKCKMB, CMP #### [place] [phone] Abs Neut 5.35 k/uL Normal 1.45-7.50 [facility] Comment on above: Performed By: #### P TT, NTBNP, HSTNT, CBCDIF, PT, CKCKMB, CMP #### [place] [address] Basophils/100 WBC (Bld) 0.3 % Normal [facility] Comment on above: Performed By: #### P TT, NTBNP, HSTNT, CBCDIF, PT, CKCKMB, CMP #### [place] [address] DTYPE Auto Diff Normal [facility] Comment on above: Performed By: #### P TT, NTBNP, HSTNT, CBCDIF, PT, CKCKMB, CMP #### [place] [address] Eosinophils #/vol (Bld) 0.12 10*3/uL Normal <0.46 [facility] Comment on above: Performed By: #### P TT, NTBNP, HSTNT, CBCDIF, PT, CKCKMB, CMP #### [place] [address] Eosinophils/100 WBC (Bld) 1.8 % Normal [facility] Comment on above: Performed By: #### P TT, NTBNP, HSTNT, CBCDIF, PT, CKCKMB, CMP #### [place] [address] Erythrocyte distribution width Ratio (RBC) 14.0 % Normal 11.5-15.0 [facility] Comment on above: Performed By: #### P TT, NTBNP, HSTNT, CBCDIF, PT, CKCKMB, CMP #### [place] [address] Hematocrit Volume Fraction (Bld) 29.4 % Low 36.0-46.0 [facility] Comment on above: Performed By: #### P TT, NTBNP, HSTNT, CBCDIF, PT, CKCKMB, CMP #### [place] [address] Hemoglobin mass conc (Bld) 9.5 g/dL Low 11.5-15.5 [facility] Comment on above: Performed By: #### P TT, NTBNP, HSTNT, CBCDIF, PT, CKCKMB, CMP #### [place] [address] Lymphocytes #/vol (Bld) 0.76 10*3/uL Low 1.00-4.00 [facility] Comment on above: Performed By: #### P TT, NTBNP, HSTNT, CBCDIF, PT, CKCKMB, CMP #### [address] Lymphocytes/100 WBC (Bld) 11.2 % Normal [facility] Comment on above: Performed By: #### P TT, NTBNP, HSTNT, CBCDIF, PT, CKCKMB, CMP #### [address] MCH Entitic mass (RBC) 29.2 pG Normal 26.0-34.0 [facility] Comment on above: Performed By: #### P TT, NTBNP, HSTNT, CBCDIF, PT, CKCKMB, CMP #### [place] [id number] MCHC mass conc (RBC) 32.3 g/dL Normal 30.5-36.0 [facility] Comment on above: Performed By: #### P TT, NTBNP, HSTNT, CBCDIF, PT, CKCKMB, CMP #### [address] MCV Entitic volume (RBC) 90.5 fL Normal 80.0-100.0 [facility] Comment on above: Performed By: #### P TT, NTBNP, HSTNT, CBCDIF, PT, CKCKMB, CMP #### [place] [phone] Monocytes/100 WBC (Bld) 7.8 % Normal [facility] Comment on above: Performed By: #### P TT, NTBNP, HSTNT, CBCDIF, PT, CKCKMB, CMP #### [place] [address] Neutrophils/100 WBC (Bld) 78.9 % Normal [facility] Comment on above: Performed By: #### P TT, NTBNP, HSTNT, CBCDIF, PT, CKCKMB, CMP #### [place] [phone] Platelet mean volume Entitic volume (Bld) 10.1 fL Normal 9.0-12.7 [facility] Comment on above: Performed By: #### P TT, NTBNP, HSTNT, CBCDIF, PT, CKCKMB, CMP #### [place] [phone] Platelets #/vol (Bld) 253 10*3/uL Normal 150-400 [facility] Comment on above: Performed By: #### P TT, NTBNP, HSTNT, CBCDIF, PT, CKCKMB, CMP #### [place] [phone] RBC #/vol (Bld) 3.25 10*6/uL Low 3.90-5.20 [facility] Comment on above: Performed By: #### P TT, NTBNP, HSTNT, CBCDIF, PT, CKCKMB, CMP #### [place] [phone] WBC #/vol (Bld) 6.78 10*3/uL Normal 3.70-11.00 [facility] Comment on above: Performed By: #### P TT, NTBNP, HSTNT, CBCDIF, PT, CKCKMB, CMP #### [place] [address] CONSULT Theresa 04-06-2018 Protein mass conc HNO ID: [id number] Author: Clif Carltonshrutidesiree Service: Nephrology Author Type: [...] with lasix Clif Jarvis MD [facility] Normal [facility] Magnesiumon 04-06-2018 Magnesium mass conc 2.1 mg/dL Normal 1.7-2.6 [facility] Comment on above: Performed By: #### P TT, NTBNP, HSTNT, CBCDIF, PT, CKCKMB, CMP #### [place] [id number] [place] [address] PROGRESSon 04-06-2018 Protein mass conc HNO ID: [id number] Author: Joy Browne Service: Cardiovascular Disease Author Type: Physician Type: Progress Notes Filed: 04/06/2018 2:02 PM Note Text: Patient is doing better Cxr showed resolution of congestion Renal function fairly stable. Would like to keep patient on dry side Will resume oral lasix tomorrow Dopamine is off Normal [facility] Protein mass conc HNO ID: [id number] Author: Jose Jack Service: Pulmonary Disease Author [...] to pulmonary edema secondary to acute non-Q-wave LA. Slowly improving with current treatment. We'll continue [...] be extrapolated by contextual derivation. ?? Normal [facility] Protein mass conc HNO ID: [id number] Author: Mary Thao Service: Hospital Medicine Author Type: Physician Type: Progress Notes Filed: 04/06/2018 10:48 AM Note Text: HOSPITAL MEDICINE [facility] PROGRESS NOTE NAME: Sarina Lovett SERVICE [...] in SVG to RCA. Patient transferred to [facility] on 03/29, back to [facility] on 04/02 for increased SOB and significantly elevated troponin. ? Acute hypoxic respiratory failure CHF and pulmonary edema ; history of tobacco abuse Suspect worsening respiratory status due to CHF and possible underlying COPD. Required CPAP again on 04/02 and was transferred back to [facility]. CXR with significant pulmonary edema R>L, restarted [...] home, last A1c 9.3% in 08/2016 at [facility]. Repeat A1c on admission 6.0%. - SSI1 [...] Score: Pt. Sleeping (Do Not Use With HOCKEY PLAYER Meds) PHYSICAL EXAM: General: Alert, no distress, [...] dr. Dumas ? Mary Thao MD 04/06/18 [facility] THERAPY NTon 04-06-2018 THERAPY NT HNO ID: [id number] Author: Leydi (OtJass Hansen Service: Occupational Therapy Author Type: Occupational Therapist Type: Therapy (PT/OT/Speech/Resp) Filed: 04/06/2018 11:39 AM Note Text: Occupational Therapy Treatment SERVICE DATE: 04/06/2018 SERVICE TIME: 0945 to 1010 ROOM: [place] [address] Recommended Discharge Disposition: Home OT Anticipated Discharge Needs: Physical Assist at Home Physical Assist at Home for: Cleaning;Laundry;Self Care;Shopping;Transpo rtation;Meals Recommended Discharge Equipment: Grab Bars-Shower;Grab Bars-Toilet;Hand Held Shower;Long Handled Sponge;Wheeled Walker;Administrative Court Justice;Shower Chair OT Recommendations to Nursing: To Bathroom [...] of daily living (ADL) Interventions Provided: Self Fci Management (99170);Therapeutic Activity (71895) Therapeutic Activity (38478) Treatment Minutes: 10 1 unit Skilled Intervention(s): Instruction in sit to and from stand technique with proper hand placement and body positioning at edge of bed/chair Education with gentle AROM exercises for BUE, rest breaks provided. Encouraged to complete shoulder flex, elbow flex /ext and wrist flex and ext from chair level. Self Fci Management (97869) Treatment Minutes: 15 1 unit Skilled Intervention(s): [...] respiratory failure Relevant Past Medical History: acute LA, CAD, CABG, CKD, HTN, diverticulitis, psych d/o, [...] DATE: April 06, 2018 TIME: 11:37 AM [facility] XR CHEST 1V FRONTALon 2018 XR CHEST [...] Slight interval improvement diffuse bilateral airspace opacities. Turkey Farmer: PSCGrace Transcribe Date/Time: Apr 06 2018 7:00A Dictated by : KIRSTIE ANDRADE MD This examination was interpreted and the report reviewed and electronically signed by: KIRSTIE ANDRADE MD on Apr 06 2018 7:01AM EST [id number] [facility] ALLIED HEALTHon 04-05-2018 ALLIED HEALTH HNO ID: [id number] Author: Amanda Koenig (Rt) Service: Radiology Author Type: Wholesaler Type: Allied Health Filed: 04/05/2018 6:40 AM [...] RT Arya April 05, 2018 6:40 AM [facility] Basic Metabolic Panlon 04-05 Anion gap molar conc 11 mmol/L Normal 11-15 [facility] Comment on above: Performed By: #### P TT, NTBNP, HSTNT, CBCDIF, PT, CKCKMB, CMP #### [phone] Calcium mass conc 8.8 mg/dL Normal 8.5-10.5 [facility] Comment on above: Performed By: #### P TT, NTBNP, HSTNT, CBCDIF, PT, CKCKMB, CMP #### [place] [phone] Chloride molar conc 99 mmol/L Normal 98-110 [facility] Comment on above: Performed By: #### P TT, NTBNP, HSTNT, CBCDIF, PT, CKCKMB, CMP #### [place] [phone] CO2 molar conc 26 mmol/L Normal 23-32 [facility] Comment on above: Performed By: #### P TT, NTBNP, HSTNT, CBCDIF, PT, CKCKMB, CMP #### [place] [phone] Creatinine mass conc 1.77 mg/dL High 0.70-1.40 [facility] Comment on above: Performed By: #### P TT, NTBNP, HSTNT, CBCDIF, PT, CKCKMB, CMP #### [place] [phone] eGFR- Amer. 34 Low >60 [facility] Comment on above: Performed By: #### P TT, NTBNP, HSTNT, CBCDIF, PT, CKCKMB, CMP #### [place] [phone] GFR/1.73 sq M predicted among non-blacks MDRD vol rate/area (S/P/Bld) 28 . Low >60 [facility] Comment on above: Performed By: #### P TT, NTBNP, HSTNT, CBCDIF, PT, CKCKMB, CMP #### [place] [phone] Glucose mass conc 125 mg/dL High 65-100 [facility] Comment on above: Performed By: #### P TT, NTBNP, HSTNT, CBCDIF, PT, CKCKMB, CMP #### [place] [phone] Potassium molar conc 4.9 mmol/L Normal 3.5-5.0 [facility] Comment on above: Result Comment: Revi ewed Performed By: #### P TT, NTBNP, HSTNT, CBCDIF, PT, CKCKMB, CMP #### [place] [phone] Sodium molar conc 136 mmol/L Normal 132-148 [facility] Comment on above: Performed By: #### P TT, NTBNP, HSTNT, CBCDIF, PT, CKCKMB, CMP #### [place] [phone] Urea nitrogen mass conc 63 mg/dL High 8-25 [facility] Comment on above: Performed By: #### P TT, NTBNP, HSTNT, CBCDIF, PT, CKCKMB, CMP #### [place] [phone] CASE MANAGEMon 04-05-2018 CASE MANAGEM HNO ID: [id number] Author: Chiara Bethea (Lisw-S) Service: Case Management Author Type: Tank Washer Type: Care Mgt Progress Note Filed: 04/05/2018 2:25 PM Note Text: CARE MANAGEMENT PROGRESS NOTE SERVICE DATE: 04/05/2018 SERVICE TIME: 2:24 PM LOS: 12 days Needs Prior to Discharge: To Be Determined Pt now on dopamine gtt. Nephrology on consult. SW will remain available for needs. SIGNATURE: MITALI Cash PATIENT NAME: Sarina Lovett DATE: April 05, 2018 TIME: 2:24 PM PAGER/CONTACT #: [phone] Normal [facility] CBC and Differentialon 04-05 Abs Baso <0.03 Normal <0.11 [facility] Comment on above: Performed By: #### P TT, NTBNP, HSTNT, CBCDIF, PT, CKCKMB, CMP #### [place] [phone] Abs [place] 0.68 k/uL Normal <0.87 [facility] Comment on above: Performed By: #### P TT, NTBNP, HSTNT, CBCDIF, PT, CKCKMB, CMP #### [place] [id number] Abs Neut 6.23 k/uL Normal 1.45-7.50 [facility] Comment on above: Performed By: #### P TT, NTBNP, HSTNT, CBCDIF, PT, CKCKMB, CMP #### [address] Basophils/100 WBC (Bld) 0.2 % Normal [facility] [facility] Comment on above: Performed By: #### P TT, NTBNP, HSTNT, CBCDIF, PT, CKCKMB, CMP #### [place] [phone] DTYPE Auto Diff Normal [facility] Comment on above: Performed By: #### P TT, NTBNP, HSTNT, CBCDIF, PT, CKCKMB, CMP #### [place] [phone] Eosinophils #/vol (Bld) 0.20 10*3/uL Normal <0.46 [facility] Comment on above: Performed By: #### P TT, NTBNP, HSTNT, CBCDIF, PT, CKCKMB, CMP #### [address] Eosinophils/100 WBC (Bld) 2.5 % Normal [facility] Comment on above: Performed By: #### P TT, NTBNP, HSTNT, CBCDIF, PT, CKCKMB, CMP #### [place] [phone] Erythrocyte distribution width Ratio (RBC) 13.8 % Normal 11.5-15.0 [facility] Comment on above: Performed By: #### P TT, NTBNP, HSTNT, CBCDIF, PT, CKCKMB, CMP #### [place] [address] Hematocrit Volume Fraction (Bld) 28.3 % Low 36.0-46.0 [facility] Comment on above: Performed By: #### P TT, NTBNP, HSTNT, CBCDIF, PT, CKCKMB, CMP #### [place] [phone] Hemoglobin mass conc (Bld) 9.2 g/dL Low 11.5-15.5 [facility] Comment on above: Performed By: #### P TT, NTBNP, HSTNT, CBCDIF, PT, CKCKMB, CMP #### [place] [address] Lymphocytes #/vol (Bld) 0.90 10*3/uL Low 1.00-4.00 [facility] Comment on above: Performed By: #### P TT, NTBNP, HSTNT, CBCDIF, PT, CKCKMB, CMP #### [address] Lymphocytes/100 WBC (Bld) 11.2 % Normal [facility] Comment on above: Performed By: #### P TT, NTBNP, HSTNT, CBCDIF, PT, CKCKMB, CMP #### [place] [phone] MCH Entitic mass (RBC) 29.3 pG Normal 26.0-34.0 [facility] Comment on above: Performed By: #### P TT, NTBNP, HSTNT, CBCDIF, PT, CKCKMB, CMP #### [place] [phone] MCHC mass conc (RBC) 32.5 g/dL Normal 30.5-36.0 [facility] Comment on above: Performed By: #### P TT, NTBNP, HSTNT, CBCDIF, PT, CKCKMB, CMP #### [place] [address] MCV Entitic volume (RBC) 90.1 fL Normal 80.0-100.0 [facility] Comment on above: Performed By: #### P TT, NTBNP, HSTNT, CBCDIF, PT, CKCKMB, CMP #### [place] [address] Monocytes/100 WBC (Bld) 8.5 % Normal [facility] Comment on above: Performed By: #### P TT, NTBNP, HSTNT, CBCDIF, PT, CKCKMB, CMP #### [place] [address] Neutrophils/100 WBC (Bld) 77.6 % Normal [facility] Comment on above: Performed By: #### P TT, NTBNP, HSTNT, CBCDIF, PT, CKCKMB, CMP #### [place] [address] Platelet mean volume Entitic volume (Bld) 10.2 fL Normal 9.0-12.7 [facility] Comment on above: Performed By: #### P TT, NTBNP, HSTNT, CBCDIF, PT, CKCKMB, CMP #### [place] [address] Platelets #/vol (Bld) 241 10*3/uL Normal 150-400 [facility] Comment on above: Performed By: #### P TT, NTBNP, HSTNT, CBCDIF, PT, CKCKMB, CMP #### [place] [id number] RBC #/vol (Bld) 3.14 10*6/uL Low 3.90-5.20 [facility] Comment on above: Performed By: #### P TT, NTBNP, HSTNT, CBCDIF, PT, CKCKMB, CMP #### [facility] [address] [place] [id number] WBC #/vol (Bld) 8.03 10*3/uL Normal 3.70-11.00 [facility] Comment on above: Performed By: #### P TT, NTBNP, HSTNT, CBCDIF, PT, CKCKMB, CMP #### [facility] [address] [place] [phone] CNCOon 04-05-2018 CNCO Letter Text April 05, 2018 Sarina Lovett [address] [place] [id number] Dear Ms. Lovett, Thank you for choosing [facility] for your medical care. To help reduce healthcare costs, it is important for us to collect co-payments at the time of service. We are sorry we missed you when you were here on 03/24/2018. According to your insurance company, you are responsible for a co-payment of $1725.00. Please mail your check or money order, payable to [facility] along with the stub below, in the enclosed envelope. If you would like to pay with your credit card, please call [phone] for assistance or pay online at [facility] [employer]. Again, thank you for choosing [facility]. Sincerely, Mitchell Beck Acct Patient Distribution Lead Please detach and return in the enclosed envelope. Pay online at [email or web address] Patient Name: Sarina Lovett EMPI Number: [id number] Date of Service: 03/24/2018 Co-Pay Due: 1725.00 Amount Enclosed: $ .__ Please make checks payable to [facility]. Normal [facility] CONSULT PROGon 04-05-2018 Protein mass conc HNO ID: [id number] Author: Clif Dhillon Service: Nephrology Author Type: [...] CPAP/O2, and lasix. She was transferred to [facility] after improvement but re admitted to [facility] for worsening respiratory status in setting of [...] 3. Anemia Clif Jarvis MD [facility] Davey Normal [facility] Magnesiumon 04-05-2018 Magnesium mass conc 2.1 mg/dL Normal 1.7-2.6 [facility] Comment on above: Performed By: #### P TT, NTBNP, HSTNT, CBCDIF, PT, CKCKMB, CMP #### [facility] [address] [place] [address] NUTRITIONon 04-05-2018 NUTRITION HNO ID: [id number] Author: Ophelia Joiner) Gurdeep Service: Nutrition Therapy Author Type: Cement Mason Helper Type: Nutrition Filed: 04/06/2018 2:52 PM Note [...] April 05, 2018 TIME: 3:00 PM PAGER: [phone] [facility] PROGRESSon 04-05-2018 Protein mass conc HNO ID: [id number] Author: Joy Browne Service: Cardiovascular Disease Author [...] encounter diagnosis) (N17.9) JULIETA (acute kidney injury) ([facility]) (E87.5) Hyperkalemia (R74.8) Elevated troponin (I21.4) NSTEMI (non-ST elevated myocardial infarction) ([facility]) (I20.0) Unstable angina pectoris ([facility]) (I25.110) Atherosclerosis of coronary artery of [place] heart with unstable angina pectoris, unspecified vessel or lesion type ([facility]) (I10) Essential hypertension, benign (I16.1) Hypertensive emergency (F99) Psychiatric disorder (Z72.0) Tobacco abuse (I50.9) Acute decompensated heart failure ([facility]) (J96.01) Acute respiratory failure with hypoxia ([facility]) (N17.9, N18.3) Acute renal failure superimposed on stage 3 chronic kidney disease, unspecified acute renal failure type ([facility]) (F17.200) Nicotine use disorder Continue present treatment Dc milrinone Add dopamine renal dose Continue with iv lasix Repeat cxr SIGNATURE: Joy Browne MD DATE: April 05, 2018 TIME: 5:50 PM Normal [facility] Protein mass conc HNO ID: [id number] Author: Jose Jack Service: Pulmonary Disease Author [...] to pulmonary edema secondary to acute non-Q-wave LA. Clinically and radiographically appears to be slowly [...] be extrapolated by contextual derivation. ?? Normal [facility] Protein mass conc HNO ID: [id number] Author: Kinsey Dumas MD Service: Hospital Medicine [...] Milrinone IV ? Mary Thao MD 04/05/18 [facility]IC[facility] PROGRESS NOTE NAME: Sarina Lovett SERVICE [...] in SVG to RCA. Patient transferred to [facility] on 03/29, back to [facility] on 04/02 for increased SOB and significantly elevated troponin. Acute hypoxic respiratory failure Likely COPD; history of tobacco abuse Suspect worsening respiratory status due to CHF and possible underlying COPD. Required CPAP again on 04/02 and was transferred back to [facility]. CXR with significant pulmonary edema R>L, restarted [...] home, last A1c 9.3% in 08/2016 at [facility]. Repeat A1c on admission 6.0%. - SSI1 [...] BID Dispo - continue to monitor in [facility] SUBJECTIVE INTERVAL HPI: Ms. Lovett feels well [...] Score: Pt. Sleeping (Do Not Use With HOCKEY PLAYER Meds) PHYSICAL EXAM: General: Alert, no distress, [...] MD Family Medicine PGY2 April 05, 2018 [facility] THERAPY NTon 04-05-2018 THERAPY NT HNO ID: [id number] Author: Madeline (Cashiers Supervisor) LALO Paredes Service: Respiratory Therapy Author Type: Respiratory Therapist Type: Therapy (PT/OT/Speech/Resp) Filed: 04/05/2018 3:52 AM Note Text: Pt wanted to come off cpap. RN notified. Will continue to monitor and intervene if necessary. [facility] XR CHEST 1V FRONTAL PORTon 0 04-05-2018 [...] cardiomediastinal silhouette. Other: . IMPRESSION: As above Turkey Farmer: PSCB Transcribe Date/Time: Apr 05 2018 7:54A Dictated by : SLICK DUNN MD This examination was interpreted and the report reviewed and electronically signed by: SLICK DUNN MD on Apr 05 2018 7:55AM EST [id number] [facility] ALLIED HEALTHon 04-04-2018 ALLIED HEALTH HNO ID: [id number] Author: Deanna (Rt) Amanda Reyes Service: (none) Author Type: Wholesaler Type: Allied Health Filed: 04/04/2018 11:12 AM [...] RT Delma April 04, 2018 11:11 AM [facility] Basic Metabolic Panlon 04-04 Anion gap molar conc 13 mmol/L Normal 9-18 [facility] Comment on above: Performed By: #### P TT, NTBNP, HSTNT, CBCDIF, PT, CKCKMB, CMP #### [place] [phone] Calcium mass conc 8.9 mg/dL Normal 8.5-10.5 [facility] Comment on above: Performed By: #### P TT, NTBNP, HSTNT, CBCDIF, PT, CKCKMB, CMP #### [place] [address] Chloride molar conc 96 mmol/L Low 98-110 [facility] Comment on above: Performed By: #### P TT, NTBNP, HSTNT, CBCDIF, PT, CKCKMB, CMP #### [place] [phone] CO2 molar conc 28 mmol/L Normal 23-32 [facility] Comment on above: Performed By: #### P TT, NTBNP, HSTNT, CBCDIF, PT, CKCKMB, CMP #### [place] [phone] Creatinine mass conc 1.84 mg/dL High 0.70-1.40 [facility] Comment on above: Performed By: #### P TT, NTBNP, HSTNT, CBCDIF, PT, CKCKMB, CMP #### [place] [phone] eGFR- Amer. 33 Low >60 [facility] Comment on above: Performed By: #### P TT, NTBNP, HSTNT, CBCDIF, PT, CKCKMB, CMP #### [place] [phone] GFR/1.73 sq M predicted among non-blacks MDRD vol rate/area (S/P/Bld) 27 . Low >60 [facility] Comment on above: Performed By: #### P TT, NTBNP, HSTNT, CBCDIF, PT, CKCKMB, CMP #### [place] [phone] Glucose mass conc 167 mg/dL High 65-100 [facility] Comment on above: Performed By: #### P TT, NTBNP, HSTNT, CBCDIF, PT, CKCKMB, CMP #### [place] [phone] Potassium molar conc 3.9 mmol/L Normal 3.5-5.0 [facility] Comment on above: Performed By: #### P TT, NTBNP, HSTNT, CBCDIF, PT, CKCKMB, CMP #### [place] [phone] Sodium molar conc 137 mmol/L Normal 132-148 [facility] Comment on above: Performed By: #### P TT, NTBNP, HSTNT, CBCDIF, PT, CKCKMB, CMP #### [place] [phone] Urea nitrogen mass conc 67 mg/dL High 8-25 [facility] Comment on above: Performed By: #### P TT, NTBNP, HSTNT, CBCDIF, PT, CKCKMB, CMP #### [phone] Anion gap molar conc 16 mmol/L Normal 9-18 [facility] Comment on above: Performed By: #### P TT, NTBNP, HSTNT, CBCDIF, PT, CKCKMB, CMP #### [place] [phone] Calcium mass conc 8.7 mg/dL Normal 8.5-10.5 [facility] Comment on above: Performed By: #### P TT, NTBNP, HSTNT, CBCDIF, PT, CKCKMB, CMP #### [place] [phone] Chloride molar conc 94 mmol/L Low 98-110 [facility] Comment on above: Performed By: #### P TT, NTBNP, HSTNT, CBCDIF, PT, CKCKMB, CMP #### [phone] CO2 molar conc 27 mmol/L Normal 23-32 [facility] Comment on above: Performed By: #### P TT, NTBNP, HSTNT, CBCDIF, PT, CKCKMB, CMP #### [phone] Creatinine mass conc 1.84 mg/dL High 0.70-1.40 [facility] Comment on above: Performed By: #### P TT, NTBNP, HSTNT, CBCDIF, PT, CKCKMB, CMP #### [place] [phone] eGFR- Amer. 33 Low >60 [facility] Comment on above: Performed By: #### P TT, NTBNP, HSTNT, CBCDIF, PT, CKCKMB, CMP #### [place] [phone] GFR/1.73 sq M predicted among non-blacks MDRD vol rate/area (S/P/Bld) 27 . Low >60 [facility] Comment on above: Performed By: #### P TT, NTBNP, HSTNT, CBCDIF, PT, CKCKMB, CMP #### [place] [phone] Glucose mass conc 135 mg/dL High 65-100 [facility] Comment on above: Performed By: #### P TT, NTBNP, HSTNT, CBCDIF, PT, CKCKMB, CMP #### [place] [phone] Potassium molar conc 3.4 mmol/L Low 3.5-5.0 [facility] Comment on above: Performed By: #### P TT, NTBNP, HSTNT, CBCDIF, PT, CKCKMB, CMP #### [place] [phone] Sodium molar conc 137 mmol/L Normal 132-148 [facility] Comment on above: Performed By: #### P TT, NTBNP, HSTNT, CBCDIF, PT, CKCKMB, CMP #### [place] [phone] Urea nitrogen mass conc 68 mg/dL High 8-25 [facility] Comment on above: Performed By: #### P TT, NTBNP, HSTNT, CBCDIF, PT, CKCKMB, CMP #### [place] [phone] CASE MANAGEMon 04-04-2018 CASE MANAGEM HNO ID: [id number] Author: Chiara Escalante-SJass Bethea Service: Case Management Author Type: Tank Washer Type: Care Mgt Progress Note Filed: 04/04/2018 12:15 PM Note Text: CARE MANAGEMENT PROGRESS NOTE SERVICE DATE: 04/04/2018 SERVICE TIME: 12:14 PM LOS: 11 days Needs Prior to Discharge: To Be Determined Pt on IV Lasix and Milrinone gtt. Skilled needs at d/c TBD. SIGNATURE: MITALI Cash PATIENT NAME: Sarina Lovett DATE: April 04, 2018 TIME: 12:14 PM PAGER/CONTACT #: [phone] Normal [facility] CBCon 04-04-2018 Erythrocyte distribution width Ratio (RBC) 13.5 % Normal 11.5-15.0 [facility] Comment on above: Performed By: #### P TT, NTBNP, HSTNT, CBCDIF, PT, CKCKMB, CMP #### [place] [address] Hematocrit Volume Fraction (Bld) 26.1 % Low 36.0-46.0 [facility] Comment on above: Performed By: #### P TT, NTBNP, HSTNT, CBCDIF, PT, CKCKMB, CMP #### [place] [address] Hemoglobin mass conc (Bld) 8.5 g/dL Low 11.5-15.5 [facility] Comment on above: Performed By: #### P TT, NTBNP, HSTNT, CBCDIF, PT, CKCKMB, CMP #### [place] [address] MCH Entitic mass (RBC) 28.7 pG Normal 26.0-34.0 [facility] Comment on above: Performed By: #### P TT, NTBNP, HSTNT, CBCDIF, PT, CKCKMB, CMP #### [place] [address] MCHC mass conc (RBC) 32.6 g/dL Normal 30.5-36.0 [facility] Comment on above: Performed By: #### P TT, NTBNP, HSTNT, CBCDIF, PT, CKCKMB, CMP #### [phone] MCV Entitic volume (RBC) 88.2 fL Normal 80.0-100.0 [facility] Comment on above: Performed By: #### P TT, NTBNP, HSTNT, CBCDIF, PT, CKCKMB, CMP #### [place] [phone] Platelet mean volume Entitic volume (Bld) 10.4 fL Normal 9.0-12.7 [facility] Comment on above: Performed By: #### P TT, NTBNP, HSTNT, CBCDIF, PT, CKCKMB, CMP #### [place] [phone] Platelets #/vol (Bld) 210 10*3/uL Normal 150-400 [facility] Comment on above: Performed By: #### P TT, NTBNP, HSTNT, CBCDIF, PT, CKCKMB, CMP #### [place] [phone] RBC #/vol (Bld) 2.96 10*6/uL Low 3.90-5.20 [facility] Comment on above: Performed By: #### P TT, NTBNP, HSTNT, CBCDIF, PT, CKCKMB, CMP #### [place] [phone] WBC #/vol (Bld) 6.33 10*3/uL Normal 3.70-11.00 [facility] Comment on above: Performed By: #### P TT, NTBNP, HSTNT, CBCDIF, PT, CKCKMB, CMP #### [place] [phone] CBC and Differentialon 04-04 Abs Baso <0.03 Normal <0.11 [facility] Comment on above: Performed By: #### P TT, NTBNP, HSTNT, CBCDIF, PT, CKCKMB, CMP #### [place] [address] Abs [place] 0.53 k/uL Normal <0.87 [facility] Comment on above: Performed By: #### P TT, NTBNP, HSTNT, CBCDIF, PT, CKCKMB, CMP #### [place] [address] Abs Neut 5.13 k/uL Normal 1.45-7.50 [facility] Comment on above: Performed By: #### P TT, NTBNP, HSTNT, CBCDIF, PT, CKCKMB, CMP #### [place] [address] Basophils/100 WBC (Bld) 0.2 % [facility] Comment on above: Performed By: #### P TT, NTBNP, HSTNT, CBCDIF, PT, CKCKMB, CMP #### [place] [address] DTYPE Auto Diff Normal [facility] Comment on above: Performed By: #### P TT, NTBNP, HSTNT, CBCDIF, PT, CKCKMB, CMP #### [place] [address] Eosinophils #/vol (Bld) 0.17 10*3/uL Normal <0.46 [facility] Comment on above: Performed By: #### P TT, NTBNP, HSTNT, CBCDIF, PT, CKCKMB, CMP #### [place] [address] Eosinophils/100 WBC (Bld) 2.6 % Normal [facility] Comment on above: Performed By: #### P TT, NTBNP, HSTNT, CBCDIF, PT, CKCKMB, CMP #### [place] [id number] Erythrocyte distribution width Ratio (RBC) 13.6 % Normal 11.5-15.0 [facility] Comment on above: Performed By: #### P TT, NTBNP, HSTNT, CBCDIF, PT, CKCKMB, CMP #### [place] [address] Hematocrit Volume Fraction (Bld) 25.8 % Low 36.0-46.0 [facility] Comment on above: Performed By: #### P TT, NTBNP, HSTNT, CBCDIF, PT, CKCKMB, CMP #### [place] [address] Hemoglobin mass conc (Bld) 8.6 g/dL Low 11.5-15.5 [facility] Comment on above: Performed By: #### P TT, NTBNP, HSTNT, CBCDIF, PT, CKCKMB, CMP #### [place] [address] Lymphocytes #/vol (Bld) 0.66 10*3/uL Low 1.00-4.00 [facility] Comment on above: Performed By: #### P TT, NTBNP, HSTNT, CBCDIF, PT, CKCKMB, CMP #### [place] [address] Lymphocytes/100 WBC (Bld) 10.2 % Normal [facility] Comment on above: Performed By: #### P TT, NTBNP, HSTNT, CBCDIF, PT, CKCKMB, CMP #### [place] [phone] MCH Entitic mass (RBC) 29.0 pG Normal 26.0-34.0 [facility] Comment on above: Performed By: #### P TT, NTBNP, HSTNT, CBCDIF, PT, CKCKMB, CMP #### [place] [phone] MCHC mass conc (RBC) 33.3 g/dL Normal 30.5-36.0 [facility] Comment on above: Performed By: #### P TT, NTBNP, HSTNT, CBCDIF, PT, CKCKMB, CMP #### [place] [phone] MCV Entitic volume (RBC) 86.9 fL Normal 80.0-100.0 [facility] Comment on above: Performed By: #### P TT, NTBNP, HSTNT, CBCDIF, PT, CKCKMB, CMP #### [place] [address] Monocytes/100 WBC (Bld) 8.2 % Normal [facility] Comment on above: Performed By: #### P TT, NTBNP, HSTNT, CBCDIF, PT, CKCKMB, CMP #### [place] [address] Neutrophils/100 WBC (Bld) 78.8 % Normal [facility] Comment on above: Performed By: #### P TT, NTBNP, HSTNT, CBCDIF, PT, CKCKMB, CMP #### [place] [id number] Platelet mean volume Entitic volume (Bld) 10.3 fL Normal 9.0-12.7 [facility] Comment on above: Performed By: #### P TT, NTBNP, HSTNT, CBCDIF, PT, CKCKMB, CMP #### [place] [phone] Platelets #/vol (Bld) 221 10*3/uL Normal 150-400 [facility] Comment on above: Performed By: #### P TT, NTBNP, HSTNT, CBCDIF, PT, CKCKMB, CMP #### [place] [phone] RBC #/vol (Bld) 2.97 10*6/uL Low 3.90-5.20 [facility] Comment on above: Performed By: #### P TT, NTBNP, HSTNT, CBCDIF, PT, CKCKMB, CMP #### [facility] [address] [place] [address] WBC #/vol (Bld) 6.50 10*3/uL Normal 3.70-11.00 [facility] Comment on above: Performed By: #### P TT, NTBNP, HSTNT, CBCDIF, PT, CKCKMB, CMP #### [facility] [address] [place] [address] CONSULT PROGon 04-04-2018 Protein mass conc HNO ID: [id number] Author: Clif Dhillon Service: Nephrology Author Type: [...] CPAP/O2, and lasix. She was transferred to [facility] after improvement but re admitted to [facility] for worsening respiratory status in setting of [...] April 04, 2018 TIME: 10:43 AM PAGER: [phone] I saw and evaluated the patient. Discussed [...] iron as out pt Clif Jarvis MD [facility] kidney Davey Normal [facility] Enteric Bact Pnl PCRon 04-04 Campy jejun/coli DNA Not Detected Normal [facility] Comment on above: Performed By: #### P TT, NTBNP, HSTNT, CBCDIF, PT, CKCKMB, CMP #### [place] [address] Salmonella spp. DNA Not Detected Normal [facility] Comment on above: Performed By: #### P TT, NTBNP, HSTNT, CBCDIF, PT, CKCKMB, CMP #### [place] [address] Shiga toxin gene(s) Not Detected Normal [facility] Comment on above: Performed By: #### P TT, NTBNP, HSTNT, CBCDIF, PT, CKCKMB, CMP #### [place] [phone] Shigella/EIEC DNA Not Detected Normal [facility] Comment on above: Performed By: #### P TT, NTBNP, HSTNT, CBCDIF, PT, CKCKMB, CMP #### [facility] [address] [place] [address] Magnesiumon 04-04-2018 Magnesium mass conc 2.3 mg/dL Normal 1.7-2.6 [facility] Comment on above: Performed By: #### P TT, NTBNP, HSTNT, CBCDIF, PT, CKCKMB, CMP #### [place] [id number] [place] [address] PROGRESSon 04-04-2018 Protein mass conc HNO ID: [id number] Author: Jose Jack Service: Pulmonary Disease Author [...] to pulmonary edema secondary to acute non-Q-wave LA. Clinically and radiographically improving with current treatment [...] be extrapolated by contextual derivation. ?? Normal [facility] Protein mass conc HNO ID: [id number] Author: Joy Browne Service: Cardiovascular Disease Author [...] encounter diagnosis) (N17.9) JULIETA (acute kidney injury) ([facility]) (E87.5) Hyperkalemia (R74.8) Elevated troponin (I21.4) NSTEMI (non-ST elevated myocardial infarction) ([facility]) (I20.0) Unstable angina pectoris ([facility]) (I25.110) Atherosclerosis of coronary artery of [place] heart with unstable angina pectoris, unspecified vessel or lesion type ([facility]) (I10) Essential hypertension, benign (I16.1) Hypertensive emergency (F99) Psychiatric disorder (Z72.0) Tobacco abuse (I50.9) Acute decompensated heart failure ([facility]) Notice k is 3.4 will give potassium supplement Patient is doing better, will keep iv lasix and milrinone for another 24 hrs SIGNATURE: Joy Browne MD DATE: April 04, 2018 TIME: 3:01 PM Normal [facility] Protein mass conc HNO ID: [id number] Author: Kinsey Dumas MD Service: Hospital Medicine [...] ? Mary Thao MD 04/04/18 HOSPITAL MEDICINE [facility] PROGRESS NOTE NAME: Sarina Lovett SERVICE [...] in SVG to RCA. Patient transferred to [facility] on 03/29, back to [facility] on 04/02 for increased SOB and significantly elevated troponin. ? Acute hypoxic respiratory failure Likely COPD; history of tobacco abuse Suspect worsening respiratory status due to CHF and possible underlying COPD. Required CPAP again on 04/02 and was transferred back to [facility]. CXR with significant pulmonary edema R>L, restarted [...] home, last A1c 9.3% in 08/2016 at [facility]. Repeat A1c on admission 6.0%. - SSI1 [...] BID Dispo - continue to monitor in [facility] SUBJECTIVE INTERVAL HPI: Ms. Lovett feels well [...] MD Family Medicine PGY2 April 04, 2018 [facility] XR CHEST 1V FRONTAL PORTon 0 04-04-2018 [...] sternotomy. Other: . IMPRESSION: Slight interval improvement. Turkey Farmer: PSCB Transcribe Date/Time: Apr 04 2018 4:00P Dictated by : KIRSTIE ANDRADE MD This examination was interpreted and the report reviewed and electronically signed by: KIRSTIE ANDRADE MD on Apr 04 2018 4:01PM EST [id number] [facility] ALLIED HEALTHon 04-03-2018 ALLIED HEALTH HNO ID: [id number] Author: Amanda Michael (Rt) Service: Radiology Author Type: Wholesaler Type: Allied Health Filed: 04/03/2018 12:43 PM [...] RT April 03, 2018 12:42 PM Normal [facility] Basic Metabolic Panlon 04-03 Calcium mass conc 9.2 mg/dL Normal 8.5-10.5 [facility] Comment on above: Performed By: #### P TT, NTBNP, HSTNT, CBCDIF, PT, CKCKMB, CMP #### [place] [phone] CO2 molar conc 23 mmol/L Normal 23-32 [facility] Comment on above: Performed By: #### P TT, NTBNP, HSTNT, CBCDIF, PT, CKCKMB, CMP #### [place] [phone] Creatinine mass conc 2.21 mg/dL High 0.70-1.40 [facility] Comment on above: Performed By: #### P TT, NTBNP, HSTNT, CBCDIF, PT, CKCKMB, CMP #### [place] [phone] eGFR- Amer. 26 Low >60 [facility] Comment on above: Performed By: #### P TT, NTBNP, HSTNT, CBCDIF, PT, CKCKMB, CMP #### [place] [phone] Glucose mass conc 107 mg/dL High 65-100 [facility] Comment on above: Performed By: #### P TT, NTBNP, HSTNT, CBCDIF, PT, CKCKMB, CMP #### [place] [phone] Potassium molar conc 3.9 mmol/L Normal 3.5-5.0 [facility] Comment on above: Performed By: #### P TT, NTBNP, HSTNT, CBCDIF, PT, CKCKMB, CMP #### [place] [phone] Sodium molar conc 137 mmol/L Normal 132-148 [facility] Comment on above: Performed By: #### P TT, NTBNP, HSTNT, CBCDIF, PT, CKCKMB, CMP #### [place] [phone] Urea nitrogen mass conc 75 mg/dL High 8-25 [facility] Comment on above: Performed By: #### P TT, NTBNP, HSTNT, CBCDIF, PT, CKCKMB, CMP #### [place] [phone] CASE MANAGEMon 04-03-2018 CASE MANAGEM HNO ID: [id number] Author: Chiara Bethea (Lisw-S) Service: Case Management Author Type: Tank Washer Type: Care Mgt Progress Note Filed: 04/03/2018 1:12 PM Note Text: CARE MANAGEMENT PROGRESS NOTE SERVICE DATE: 04/03/2018 SERVICE TIME: 1:10 PM LOS: 10 days Needs Prior to Discharge: To Be Determined Pt was a transfer from [facility] d/t fluid overload and SOB. Chest XRay pending. Pt to receive 1 unit of PRBC per hospital medicine note. May need HHC at d/c; if so, will need a HHC F2F. SIGNATURE: MITALI Cash PATIENT NAME: Sarina Lovett DATE: April 03, 2018 TIME: 1:10 PM PAGER/CONTACT #: [phone] Normal [facility] CBC and Differentialon 04-03 Abs Baso <0.03 Normal <0.11 [facility] Comment on above: Performed By: #### P TT, NTBNP, HSTNT, CBCDIF, PT, CKCKMB, CMP #### [place] [phone] Abs [place] 0.44 k/uL Normal <0.87 [facility] Comment on above: Performed By: #### P TT, NTBNP, HSTNT, CBCDIF, PT, CKCKMB, CMP #### [place] [phone] Abs Neut 5.70 k/uL Normal 1.45-7.50 [facility] Comment on above: Performed By: #### P TT, NTBNP, HSTNT, CBCDIF, PT, CKCKMB, CMP #### [place] [phone] Basophils/100 WBC (Bld) 0.1 % Normal [facility] Comment on above: Performed By: #### P TT, NTBNP, HSTNT, CBCDIF, PT, CKCKMB, CMP #### [place] [phone] DTYPE Auto Diff Normal [facility] Comment on above: Performed By: #### P TT, NTBNP, HSTNT, CBCDIF, PT, CKCKMB, CMP #### [place] [phone] Eosinophils #/vol (Bld) 0.08 10*3/uL Normal <0.46 [facility] Comment on above: Performed By: #### P TT, NTBNP, HSTNT, CBCDIF, PT, CKCKMB, CMP #### [address] Eosinophils/100 WBC (Bld) 1.2 % Normal [facility] Comment on above: Performed By: #### P TT, NTBNP, HSTNT, CBCDIF, PT, CKCKMB, CMP #### [address] Erythrocyte distribution width Ratio (RBC) 13.8 % Normal 11.5-15.0 [facility] Comment on above: Performed By: #### P TT, NTBNP, HSTNT, CBCDIF, PT, CKCKMB, CMP #### [place] [phone] Hematocrit Volume Fraction (Bld) 23.0 % Low 36.0-46.0 [facility] Comment on above: Performed By: #### P TT, NTBNP, HSTNT, CBCDIF, PT, CKCKMB, CMP #### [place] [address] Hemoglobin mass conc (Bld) 7.5 g/dL Low 11.5-15.5 [facility] Comment on above: Performed By: #### P TT, NTBNP, HSTNT, CBCDIF, PT, CKCKMB, CMP #### [place] [address] Lymphocytes #/vol (Bld) 0.54 10*3/uL Low 1.00-4.00 [facility] Comment on above: Performed By: #### P TT, NTBNP, HSTNT, CBCDIF, PT, CKCKMB, CMP #### [place] [address] Lymphocytes/100 WBC (Bld) 8.0 % Normal [facility] Comment on above: Performed By: #### P TT, NTBNP, HSTNT, CBCDIF, PT, CKCKMB, CMP #### [place] [address] MCH Entitic mass (RBC) 28.5 pG Normal 26.0-34.0 [facility] Comment on above: Performed By: #### P TT, NTBNP, HSTNT, CBCDIF, PT, CKCKMB, CMP #### [place] [address] MCHC mass conc (RBC) 32.6 g/dL Normal 30.5-36.0 [facility] Comment on above: Performed By: #### P TT, NTBNP, HSTNT, CBCDIF, PT, CKCKMB, CMP #### [place] [id number] MCV Entitic volume (RBC) 87.5 fL Normal 80.0-100.0 [facility] Comment on above: Performed By: #### P TT, NTBNP, HSTNT, CBCDIF, PT, CKCKMB, CMP #### [place] [phone] Monocytes/100 WBC (Bld) 6.5 % Normal [facility] Comment on above: Performed By: #### P TT, NTBNP, HSTNT, CBCDIF, PT, CKCKMB, CMP #### [place] [phone] Neutrophils/100 WBC (Bld) 84.2 % Normal [facility] Comment on above: Performed By: #### P TT, NTBNP, HSTNT, CBCDIF, PT, CKCKMB, CMP #### [phone] Platelet mean volume Entitic volume (Bld) 10.9 fL Normal 9.0-12.7 [facility] Comment on above: Performed By: #### P TT, NTBNP, HSTNT, CBCDIF, PT, CKCKMB, CMP #### [place] [phone] Platelets #/vol (Bld) 207 10*3/uL Normal 150-400 [facility] Comment on above: Performed By: #### P TT, NTBNP, HSTNT, CBCDIF, PT, CKCKMB, CMP #### [place] [phone] RBC #/vol (Bld) 2.63 10*6/uL Low 3.90-5.20 [facility] Comment on above: Performed By: #### P TT, NTBNP, HSTNT, CBCDIF, PT, CKCKMB, CMP #### [place] [phone] WBC #/vol (Bld) 6.77 10*3/uL Normal 3.70-11.00 [facility] Comment on above: Performed By: #### P TT, NTBNP, HSTNT, CBCDIF, PT, CKCKMB, CMP #### [place] [phone] CONSULT PROGon 04-03-2018 Protein mass conc HNO ID: [id number] Author: Clif Dhillon Service: Nephrology Author Type: [...] 5. Anemia: Cont monitoring Clif Jarvis MD [facility] Protein mass conc HNO ID: [id number] Author: Kamille Lopez Service: Gastroenterology Author Type: [...] and tolerating diet ? Kamille Lopez CNP [facility] ? Thank you for allowing us to participate in the care of this patient. Please call with questions or concerns. ? SIGNATURE: Kamille Lopez APRN.BHARAT PATIENT NAME: Sarina Lovett DATE: April 03, 2018 TIME: 10:02 AM PAGER: [phone] Normal [facility] Confirm Blood Typeon 019 ABO/RH(D) Positive Normal [facility] Comment on above: Performed By: #### P TT, NTBNP, HSTNT, CBCDIF, PT, CKCKMB, CMP #### [facility] [address] [place] [address] NURSING PROGon 04-03-2018 Protein mass conc HNO ID: [id number] Author: Sharda CabreraRn) DEBBIE Damon Service: Critical Care Author Type: Registered Nurse Type: Nursing Progress Note Filed: 04/04/2018 5:22 AM Note Text: Nursing Progress Note Patient Name: Sarina Lovett Patient Location: [place] [address] * Daily Note: This note was completed by: Sharda Damon RN 1936- 1 unit PRBC completed infusing. Dr. Cardenas notified for order for repeat CBC. Ordered for 2200. 2102- Pt with [address] Cardenas notified. New order received for 2G IV mag. 0515- Pt K came back at 3.4. Dr. Cardenas notified for orders. Normal [facility] Protein mass conc HNO ID: [id number] Author: Brayan CabreraRn) Francia, DEBBIE Service: (none) Author Type: Registered Nurse Type: Nursing Progress Note Filed: 04/03/2018 7:15 PM Note Text: Nursing Progress Note Patient Name: Sarina Lovett Patient Location: [place] [address] * Daily Note:1640 Dr. Thao ordered unit of PRBC, blood is ready Dr. Thao to go over consent with pt. This note was completed by: Brayan Nichols RN 1810 Pt family at the bedside, updated on pt condition. Normal [facility] Protein mass conc HNO ID: [id number] Author: Delma CabreraRn) DEBBIE Garsia Service: Critical [...] to have blood transfusion after obtains consent. [facility] Protein mass conc HNO ID: [id number] Author: Constantine (Rn) DEBBIE Potter Service: (none) Author Type: Registered Nurse Type: Nursing Progress Note Filed: 04/03/2018 7:37 AM Note Text: Nursing Progress Note Patient Name: Sarina Lovett Patient Location: [place] [address] [address]* Daily Note: 2300: Received report from DEBBIE Harris. 2330: Assessment complete, see flow sheet. VSS. 0500: Reassessment complete, see flow sheet. VSS. 0705: Report given to DEBBIE Nguyễn This note was completed by: Constantine Potter RN [facility] PLAN OF CAREon 04-03-2018 PLAN OF CARE HNO ID: [id number] Author: Radha Castellanos (Pharmacist) Service: Pharmacy Author Type: Pharmacist Type: Plan of Care Filed: 04/04/2018 7:22 AM Note Text: MEDICATION HISTORY AND MEDICATION RECONCILIATION Patient Name:.Sarina Lovett : 1945 Source of history:Patient: Reliability of source: Appears reliable, although not clear on how she takes all of her medications and Pharmacy records: [facility] in [place] Medication Nonadherence Identified: patient not clear on all directions for medications. The above information represents the best possible medication history: Yes Reconciliation completed? Yes All [facility] medications addressed by LIP. No med changes at this time, but will need reconciliation at discharge. Additional comments: Added albuterol, amlodipine, furosemide Adjusted dose of glimepiride, lisinopril Removed iron Allergies: ALLERGIES Allergen Reactions - Statins [Other] Caused severe muscular weakness. - Sulfa (Sulfonamide * Caused severe generalized swelling. - Tape [Other] Severe skin reaction; needs to use paper tape Preferred Pharmacy: [facility] in [place] Current [facility] Medications: Prior to Admission medications as of [...] Castellanos, Pharmacist April 04, 2018 7:19 AM [facility] PROGRESSon 04-03-2018 Protein mass conc HNO ID: [id number] Author: Jose Jack Service: Pulmonary Disease Author [...] to pulmonary edema secondary to acute non-Q-wave LA. Clinically and radiographically improving with current treatment. [...] be extrapolated by contextual derivation. ?? Normal [facility] Protein mass conc HNO ID: [id number] Author: Joy Browne Service: Cardiovascular Disease Author Type: Physician Type: Progress Notes Filed: 04/03/2018 12:48 PM Note Text: Reviewed cxr It is better, less congestions Finding showed improvement of heart failure. Continue with milrinone for the next 24hrs. I hope nephrology will not dc diuretic again. We need to keep her on dry side Normal [facility] Protein mass conc HNO ID: [id number] Author: Joy Browne Service: Cardiovascular Disease Author Type: Physician Type: Progress Notes Filed: 04/03/2018 12:44 PM Note Text: INPATIENT PROGRESS NOTES Patient Name: Sarina Lovett SERVICE DATE: 04/03/2018 SERVICE TIME: 12:37 PM PRIMARY SERVICE:Cardiology INTERVAL HPI: [place] more sob last night. Was transferred to [facility]. This morning, she is feeling better. PERTINENT [...] AND PLAN: (N17.9) JULIETA (acute kidney injury) ([facility]) (E87.5) Hyperkalemia (R74.8) Elevated troponin (I21.4) NSTEMI (non-ST elevated myocardial infarction) ([facility]) (I20.0) Unstable angina pectoris ([facility]) (I25.110) Atherosclerosis of coronary artery of [place] heart with unstable angina pectoris, unspecified vessel or lesion type ([facility]) (I10) Essential hypertension, benign (I16.1) Hypertensive emergency (F99) Psychiatric disorder (Z72.0) Tobacco abuse (I50.9) Acute decompensated heart failure ([facility]) Cxr suggestive of pneumonia, repeat cxr pa [...] DATE: April 03, 2018 TIME: 12:37 PM [facility] Protein mass conc HNO ID: [id number] Author: Kinsey Dumas MD Service: Hospital Medicine [...] ? Mary Thao MD 04/03/18 HOSPITAL MEDICINE [facility] PROGRESS NOTE NAME: Sarina Lovett SERVICE [...] in SVG to RCA. Patient transferred to [facility] on 03/29, back to [facility] on 04/02 for increased SOB and significantly elevated troponin. Acute hypoxic respiratory failure Likely COPD; history of tobacco abuse Suspect worsening respiratory status due to CHF and possible underlying COPD. Required CPAP again on 04/02 and was transferred back to [facility]. CXR with significant pulmonary edema R>L, restarted [...] home, last A1c 9.3% in 08/2016 at [facility]. Repeat A1c on admission 6.0%. - SSI1 - holding home glimepiride due to JULIETA Tobacco abuse POA: Yes 50 pack-year history, encourage cessation. Psychiatric disorder POA: Yes Patient with history of depression, significant social stressors. - continue zoloft 150mg daily, wellbutrin 150mg daily VTE Prophylaxis - SQH 5000U BID Dispo - continue to monitor in [facility] SUBJECTIVE INTERVAL HPI: Ms. Lovett feels well [...] Family Medicine PGY2 April 03, 2018 Normal [facility] Renal Function Panelon 04-03 Albumin mass conc 3.2 g/dL Low 3.5-5.0 [facility] Comment on above: Performed By: #### P TT, NTBNP, HSTNT, CBCDIF, PT, CKCKMB, CMP #### [place] [phone] Anion gap molar conc 17 mmol/L Normal 9-18 [facility] Comment on above: Performed By: #### P TT, NTBNP, HSTNT, CBCDIF, PT, CKCKMB, CMP #### [place] [phone] Calcium mass conc 9.1 mg/dL Normal 8.5-10.5 [facility] Comment on above: Performed By: #### P TT, NTBNP, HSTNT, CBCDIF, PT, CKCKMB, CMP #### [place] [phone] Chloride molar conc 97 mmol/L Low 98-110 [facility] Comment on above: Performed By: #### P TT, NTBNP, HSTNT, CBCDIF, PT, CKCKMB, CMP #### [place] [phone] CO2 molar conc 24 mmol/L Normal 23-32 [facility] Comment on above: Performed By: #### P TT, NTBNP, HSTNT, CBCDIF, PT, CKCKMB, CMP #### [place] [phone] Creatinine mass conc 2.22 mg/dL High 0.70-1.40 [facility] Comment on above: Performed By: #### P TT, NTBNP, HSTNT, CBCDIF, PT, CKCKMB, CMP #### [place] [phone] GFR/1.73 sq M predicted among non-blacks MDRD vol rate/area (S/P/Bld) 22 . Low >60 [facility] Comment on above: Performed By: #### P TT, NTBNP, HSTNT, CBCDIF, PT, CKCKMB, CMP #### [place] [phone] Glucose mass conc 105 mg/dL High 65-100 [facility] Comment on above: Performed By: #### P TT, NTBNP, HSTNT, CBCDIF, PT, CKCKMB, CMP #### [place] [phone] Phosphate mass conc 5.2 mg/dL High 2.5-4.5 [facility] Comment on above: Performed By: #### P TT, NTBNP, HSTNT, CBCDIF, PT, CKCKMB, CMP #### [place] [phone] Potassium molar conc 3.8 mmol/L Normal 3.5-5.0 [facility] Comment on above: Performed By: #### P TT, NTBNP, HSTNT, CBCDIF, PT, CKCKMB, CMP #### [place] [phone] Sodium molar conc 138 mmol/L Normal 132-148 [facility] Comment on above: Performed By: #### P TT, NTBNP, HSTNT, CBCDIF, PT, CKCKMB, CMP #### [place] [address] Type and Screenon 04-03-2018 ABO/RH(D) Positive Normal [facility] Comment on above: Performed By: #### P TT, NTBNP, HSTNT, CBCDIF, PT, CKCKMB, CMP #### [place] [id number] [place] [address] XR CHEST 2V FRONTAL/LATon XR CHEST 2V [...] bilateral pleural effusions, right greater than left. Turkey Farmer: PSCB Transcribe Date/Time: Apr 03 2018 1:36P Dictated by : PHILLIP MONTALVO MD This examination was interpreted and the report reviewed and electronically signed by: PHILLIP MONTALVO MD on Apr 03 2018 1:39PM EST [id number] [facility] HEALTHon 04-02-2018 ALLIED HEALTH HNO ID: [id number] Author: Nicole (Cashiers Supervisor) LALO Hernandez Service: Respiratory Therapy Author Type: Registered Resp Therapist Type: Allied Health Filed: 04/02/2018 10:28 AM Note Text: Patient on using cpap at this time [facility] HNO ID: [id number] Author: Georgia Barnett (Rt) Amanda Rodriguez Service: Radiology Author Type: Wholesaler Type: Allied Health Filed: 04/02/2018 8:06 AM [...] Rodriguez RT April 02, 2018 8:06 AM [facility] Arterial Blood Gas (FOR WEST USE ONLY)on 04-02-2018 Base Excess Negative [facility] Comment on above: Result Comment: -3 t o 3 Performed By: #### P TT, NTBNP, HSTNT, CBCDIF, PT, CKCKMB, CMP #### [place] [address] CO2 molar conc 22 mmol/L Normal 22.0-28.0 [facility] Comment on above: Performed By: #### P TT, NTBNP, HSTNT, CBCDIF, PT, CKCKMB, CMP #### [place] [address] Device Nasal Cannula [facility] Comment on above: Performed By: #### P TT, NTBNP, HSTNT, CBCDIF, PT, CKCKMB, CMP #### [place] [address] Drawsite Right Brachial [facility] Comment on above: Performed By: #### P TT, NTBNP, HSTNT, CBCDIF, PT, CKCKMB, CMP #### [place] [address] HCO3 molar conc (Bld) 20 mmol/L Low 22-26 [facility] Comment on above: Performed By: #### P TT, NTBNP, HSTNT, CBCDIF, PT, CKCKMB, CMP #### [place] [address] O2 Administered 45.0 [facility] Comment on above: Performed By: #### P TT, NTBNP, HSTNT, CBCDIF, PT, CKCKMB, CMP #### [place] [address] Oxygen ppres (Bld) 81 mm Hg Normal 80-100 [facility] Comment on above: Performed By: #### P TT, NTBNP, HSTNT, CBCDIF, PT, CKCKMB, CMP #### [place] [address] Oxygen ppres (Bld) 95 % Normal 90-98 [facility] Comment on above: Performed By: #### P TT, NTBNP, HSTNT, CBCDIF, PT, CKCKMB, CMP #### [place] [address] pCO2 40 mm Hg Normal 35-48 [facility] Comment on above: Performed By: #### P TT, NTBNP, HSTNT, CBCDIF, PT, CKCKMB, CMP #### [place] [address] pH (Bld) 7.33 [pH] Low 7.35-7.45 [facility] Comment on above: Performed By: #### P TT, NTBNP, HSTNT, CBCDIF, PT, CKCKMB, CMP #### [place] [address] CBC and Differentialon 04-02 Abs Baso <0.03 Normal <0.11 [facility] Comment on above: Performed By: #### P TT, NTBNP, HSTNT, CBCDIF, PT, CKCKMB, CMP #### [place] [id number] Abs [place] 0.43 k/uL Normal <0.87 [facility] Comment on above: Performed By: #### P TT, NTBNP, HSTNT, CBCDIF, PT, CKCKMB, CMP #### [place] [phone] Abs Neut 7.37 k/uL Normal 1.45-7.50 [facility] Comment on above: Performed By: #### P TT, NTBNP, HSTNT, CBCDIF, PT, CKCKMB, CMP #### [place] [address] Basophils/100 WBC (Bld) 0.1 % Normal [facility] Comment on above: Performed By: #### P TT, NTBNP, HSTNT, CBCDIF, PT, CKCKMB, CMP #### [place] [address] DTYPE Auto Diff Normal [facility] Comment on above: Performed By: #### P TT, NTBNP, HSTNT, CBCDIF, PT, CKCKMB, CMP #### [place] [address] Eosinophils #/vol (Bld) 0.06 10*3/uL Normal <0.46 [facility] Comment on above: Performed By: #### P TT, NTBNP, HSTNT, CBCDIF, PT, CKCKMB, CMP #### [place] [address] Eosinophils/100 WBC (Bld) 0.7 % Normal [facility] Comment on above: Performed By: #### P TT, NTBNP, HSTNT, CBCDIF, PT, CKCKMB, CMP #### [place] [address] Erythrocyte distribution width Ratio (RBC) 13.7 % Normal 11.5-15.0 [facility] Comment on above: Performed By: #### P TT, NTBNP, HSTNT, CBCDIF, PT, CKCKMB, CMP #### [place] [address] Hematocrit Volume Fraction (Bld) 24.9 % Low 36.0-46.0 [facility] Comment on above: Performed By: #### P TT, NTBNP, HSTNT, CBCDIF, PT, CKCKMB, CMP #### [place] [phone] Hemoglobin mass conc (Bld) 8.2 g/dL Low 11.5-15.5 [facility] Comment on above: Performed By: #### P TT, NTBNP, HSTNT, CBCDIF, PT, CKCKMB, CMP #### [place] [address] Lymphocytes #/vol (Bld) 0.36 10*3/uL Low 1.00-4.00 [facility] Comment on above: Performed By: #### P TT, NTBNP, HSTNT, CBCDIF, PT, CKCKMB, CMP #### [place] [address] Lymphocytes/100 WBC (Bld) 4.4 % Normal [facility] Comment on above: Performed By: #### P TT, NTBNP, HSTNT, CBCDIF, PT, CKCKMB, CMP #### [place] [address] MCH Entitic mass (RBC) 28.6 pG Normal 26.0-34.0 [facility] Comment on above: Performed By: #### P TT, NTBNP, HSTNT, CBCDIF, PT, CKCKMB, CMP #### [place] [address] MCHC mass conc (RBC) 32.9 g/dL Normal 30.5-36.0 [facility] Comment on above: Performed By: #### P TT, NTBNP, HSTNT, CBCDIF, PT, CKCKMB, CMP #### [place] [id number] MCV Entitic volume (RBC) 86.8 fL Normal 80.0-100.0 [facility] Comment on above: Performed By: #### P TT, NTBNP, HSTNT, CBCDIF, PT, CKCKMB, CMP #### [address] Monocytes/100 WBC (Bld) 5.2 % Normal [facility] Comment on above: Performed By: #### P TT, NTBNP, HSTNT, CBCDIF, PT, CKCKMB, CMP #### [place] [phone] Neutrophils/100 WBC (Bld) 89.6 % Normal [facility] Comment on above: Performed By: #### P TT, NTBNP, HSTNT, CBCDIF, PT, CKCKMB, CMP #### [place] [id number] Platelet mean volume Entitic volume (Bld) 10.6 fL Normal 9.0-12.7 [facility] Comment on above: Performed By: #### P TT, NTBNP, HSTNT, CBCDIF, PT, CKCKMB, CMP #### [place] [address] Platelets #/vol (Bld) 192 10*3/uL Normal 150-400 [facility] Comment on above: Performed By: #### P TT, NTBNP, HSTNT, CBCDIF, PT, CKCKMB, CMP #### [place] [id number] RBC #/vol (Bld) 2.87 10*6/uL Low 3.90-5.20 [facility] Comment on above: Performed By: #### P TT, NTBNP, HSTNT, CBCDIF, PT, CKCKMB, CMP #### [address] WBC #/vol (Bld) 8.23 10*3/uL Normal 3.70-11.00 [facility] Comment on above: Performed By: #### P TT, NTBNP, HSTNT, CBCDIF, PT, CKCKMB, CMP #### [place] [phone] CONSULTon 04-02-2018 CONSULT HNO ID: [id number] Author: Jose Jack Service: Pulmonary Disease Author Type: Physician Type: Consults Filed: 04/05/2018 4:13 PM Note Text: [facility] - Consultation SARINA LOVETT : 1945 AGE: 73 SEX: F CSN: [id number] [facility]: [facility] LOCATION: [facility] ATTENDING PHYSICIAN: MAME BOWERS DATE OF CONSULTATION: 04/02/2018 CONSULTING PHYSICIAN: Jose Jack M.D. PULMONARY CONSULTATION REASON FOR CONSULTATION: Respiratory failure. HISTORY OF PRESENT ILLNESS: The patient is a pleasant 73-year-old female, who presented to the hospital originally with crushing chest pain that was not relieved by any measures. The patient was found to have a non-Q-wave LA and was treated for the above. Subsequently, she was transferred to regular medical floor and today morning, she developed significantly worsening shortness of breath with oxygen desaturation and therefore, was placed on CPAP, transferred to [facility] Unit and a Pulmonary consultation was requested. [...] at home. 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 [...] significant edema. No calf tenderness or swelling. STAFF TECHNOLOGIST: Awake, alert, and oriented x3 without focal [...] 33 minutes. Jose Jack M.D. Pulmonary/critical Care :[id number] /[id number] [facility] CONSULT PROGon 04-02-2018 Protein mass conc HNO ID: [id number] Author: Jonathan Mchugh Service: Cardiovascular Disease Author [...] April 02, 2018 Time: 10:13 AM Normal [facility] Comp Metabolic Panelon 04-02 Albumin mass conc 3.3 g/dL Low 3.5-5.0 [facility] Comment on above: Performed By: #### P TT, NTBNP, HSTNT, CBCDIF, PT, CKCKMB, CMP #### [place] [phone] ALP enzyme act/vol 91 U/L Normal 34-123 [facility] Comment on above: Performed By: #### P TT, NTBNP, HSTNT, CBCDIF, PT, CKCKMB, CMP #### [place] [phone] ALT enzyme act/vol 24 U/L Normal 0-45 [facility] Comment on above: Performed By: #### P TT, NTBNP, HSTNT, CBCDIF, PT, CKCKMB, CMP #### [place] [phone] Anion gap molar conc 18 mmol/L Normal 9-18 [facility] Comment on above: Performed By: #### P TT, NTBNP, HSTNT, CBCDIF, PT, CKCKMB, CMP #### [place] [phone] AST enzyme act/vol 26 U/L Normal 7-40 [facility] Comment on above: Performed By: #### P TT, NTBNP, HSTNT, CBCDIF, PT, CKCKMB, CMP #### [place] [phone] Bilirubin mass conc 0.3 mg/dL Normal 0.2-1.3 [facility] Comment on above: Performed By: #### P TT, NTBNP, HSTNT, CBCDIF, PT, CKCKMB, CMP #### [place] [phone] Calcium mass conc 8.8 mg/dL Normal 8.5-10.5 [facility] Comment on above: Performed By: #### P TT, NTBNP, HSTNT, CBCDIF, PT, CKCKMB, CMP #### [place] [phone] Chloride molar conc 97 mmol/L Low 98-110 [facility] Comment on above: Performed By: #### P TT, NTBNP, HSTNT, CBCDIF, PT, CKCKMB, CMP #### [place] [phone] CO2 molar conc 20 mmol/L Low 23-32 [facility] Comment on above: Performed By: #### P TT, NTBNP, HSTNT, CBCDIF, PT, CKCKMB, CMP #### [place] [phone] Creatinine mass conc 2.29 mg/dL High 0.70-1.40 [facility] Comment on above: Performed By: #### P TT, NTBNP, HSTNT, CBCDIF, PT, CKCKMB, CMP #### [place] [phone] eGFR- Amer. 25 Low >60 [facility] Comment on above: Performed By: #### P TT, NTBNP, HSTNT, CBCDIF, PT, CKCKMB, CMP #### [address] GFR/1.73 sq M predicted among non-blacks MDRD vol rate/area (S/P/Bld) 21 . Low >60 [facility] Comment on above: Performed By: #### P TT, NTBNP, HSTNT, CBCDIF, PT, CKCKMB, CMP #### [place] [phone] Glucose mass conc 127 mg/dL High 65-100 [facility] Comment on above: Performed By: #### P TT, NTBNP, HSTNT, CBCDIF, PT, CKCKMB, CMP #### [place] [phone] Potassium molar conc 4.1 mmol/L Normal 3.5-5.0 [facility] Comment on above: Performed By: #### P TT, NTBNP, HSTNT, CBCDIF, PT, CKCKMB, CMP #### [place] [phone] Protein mass conc 6.6 g/dL Normal 6.0-8.4 [facility] Comment on above: Performed By: #### P TT, NTBNP, HSTNT, CBCDIF, PT, CKCKMB, CMP #### [place] [phone] Sodium molar conc 135 mmol/L Normal 132-148 [facility] Comment on above: Performed By: #### P TT, NTBNP, HSTNT, CBCDIF, PT, CKCKMB, CMP #### [place] [phone] Urea nitrogen mass conc 76 mg/dL High 8-25 [facility] Comment on above: Performed By: #### P TT, NTBNP, HSTNT, CBCDIF, PT, CKCKMB, CMP #### [place] [phone] ECG COMPLETEon 04-02-2018 ECG COMPLETE NAME : SARINA LOVETT PID : [id number] : 1945 Gender : Female Race : ORD : [id number] Procedure Date : Apr 02 2018 07:40:14 [...] ms QTC Calculation(Bezet) : 556 ms P [place] : 25 degrees R [place] : -62 degrees T [place] : 98 degrees Test Reason : OPEN [facility] : 400 [facility] Overread By : ABBY BURT M.D. Edited By : ABBY BURT M.D. Referred By : , Acquired by : BETSEY FRASER [facility] NURSING PROGon 04-02-2018 Protein mass conc HNO ID: [id number] Author: Delma CabreraRn) DEBBIE Garsia Service: Critical [...] present. 1700States relief of nausea after meds. [facility] Protein mass conc HNO ID: [id number] Author: Xiomy CabreraRn) DEBBIE Bermudez Service: (none) Author Type: Registered Nurse Type: Nursing Progress Note Filed: 04/02/2018 8:58 AM Note Text: Nursing Progress Note Patient Name: Sarina Lovett Patient Location: [address] 0850: Report called to Natalie brush [facility]. This note was completed by: Xiomy Bermudez RN [facility] Protein mass conc HNO ID: [id number] Author: Dorene CabreraRn) DEBBIE Plata Service: Radiology [...] 02, 2018 TIME: 7:56 AM PAGER/CONTACT #: [phone] [facility] Protein mass conc HNO ID: [id number] Author: Kera (Rn) DEBBIE Childers Service: (none) Author Type: Registered Nurse Type: Nursing Progress Note Filed: 04/01/2018 11:32 PM Note Text: Nursing Progress Note Patient Name: Sarina Lovett Patient Location: [address] Daily Note: 2235 P[address] House spoke [...] note was completed by: Kera Childers RN [facility] PROGRESSon 04-02-2018 Protein mass conc HNO ID: [id number] Author: Eleni Flanagan Service: Nephrology Author Type: [...] Date 04/01/18 0700 - 04/02/18 0659 Shift [id number] 0640-4911 8409-1654 24 Hour Total I N T A [...] Flanagan MD PhD PATIENT NAME: Sarina Lovett [facility] Protein mass conc HNO ID: [id number] Author: Mame Bowers Service: Hospital Medicine Author Type: Physician Type: Progress Notes Filed: 04/02/2018 2:35 PM Note Text: DEPARTMENT OF HOSPITAL MEDICINE PROGRESS NOTE Name: Sarina Lovett SERVICE DATE: 04/02/2018 SERVICE TIME: 10:23 AM Hospital Medicine/Primary Attending: Mame Bowers MD NIGHT AND WEEKEND COVERAGE: Days: [phone], please page me for patient issues. Nights: [phone], please page [facility] Hospitalist Night Coverage pager: [phone]. Dr. Thao to take over care for [...] examined, lying on the bed, transferred from [facility] with elevated troponin, pt stated that she [...] April 02, 2018 TIME: 10:23 AM Normal [facility] Protein mass conc HNO ID: [id number] Author: Laura Chance Service: General Internal Medicine [...] 03/24/182044 vte non-pharmacologic prophylaxis - none indicated ([place]) 03/24/182044 activity - mobilize patient ([place], [place]) VTE Prophylaxis: VTE prophylaxis appropriate SIGNATURE: Laura Chance APRN.CNP PATIENT NAME: Sarina Lovett DATE: April 02, 2018 TIME: 7:29 AM PAGER: D/w Dr. Peters D/w Dr. Jack D/w dr tenorio pt trasferred to [facility] all meds /orders continued except zofran- also could consider d/c zoloft, d/w [facility] nursing- they will discuss with attending Normal [facility] Renal Function Panelon 04-02 Albumin mass conc 3.4 g/dL Low 3.5-5.0 [facility] Comment on above: Performed By: #### P TT, NTBNP, HSTNT, CBCDIF, PT, CKCKMB, CMP #### [place] [phone] Anion gap molar conc 18 mmol/L Normal 9-18 [facility] Comment on above: Performed By: #### P TT, NTBNP, HSTNT, CBCDIF, PT, CKCKMB, CMP #### [place] [phone] Calcium mass conc 8.8 mg/dL Normal 8.5-10.5 [facility] Comment on above: Performed By: #### P TT, NTBNP, HSTNT, CBCDIF, PT, CKCKMB, CMP #### [place] [phone] Chloride molar conc 97 mmol/L Low 98-110 [facility] Comment on above: Performed By: #### P TT, NTBNP, HSTNT, CBCDIF, PT, CKCKMB, CMP #### [place] [phone] CO2 molar conc 19 mmol/L Low 23-32 [facility] Comment on above: Performed By: #### P TT, NTBNP, HSTNT, CBCDIF, PT, CKCKMB, CMP #### [place] [phone] Creatinine mass conc 2.33 mg/dL High 0.70-1.40 [facility] Comment on above: Result Comment: Revi ewed Performed By: #### P TT, NTBNP, HSTNT, CBCDIF, PT, CKCKMB, CMP #### [place] [phone] eGFR- Amer. 25 Low >60 [facility] Comment on above: Performed By: #### P TT, NTBNP, HSTNT, CBCDIF, PT, CKCKMB, CMP #### [address] GFR/1.73 sq M predicted among non-blacks MDRD vol rate/area (S/P/Bld) 21 . Low >60 [facility] Comment on above: Performed By: #### P TT, NTBNP, HSTNT, CBCDIF, PT, CKCKMB, CMP #### [place] [phone] Glucose mass conc 115 mg/dL High 65-100 [facility] Comment on above: Performed By: #### P TT, NTBNP, HSTNT, CBCDIF, PT, CKCKMB, CMP #### [place] [phone] Phosphate mass conc 5.0 mg/dL High 2.5-4.5 [facility] Comment on above: Performed By: #### P TT, NTBNP, HSTNT, CBCDIF, PT, CKCKMB, CMP #### [place] [phone] Potassium molar conc 4.1 mmol/L Normal 3.5-5.0 [facility] Comment on above: Performed By: #### P TT, NTBNP, HSTNT, CBCDIF, PT, CKCKMB, CMP #### [place] [phone] Sodium molar conc 134 mmol/L Normal 132-148 [facility] Comment on above: Performed By: #### P TT, NTBNP, HSTNT, CBCDIF, PT, CKCKMB, CMP #### [place] [phone] Urea nitrogen mass conc 77 mg/dL High 8-25 [facility] Comment on above: Performed By: #### P TT, NTBNP, HSTNT, CBCDIF, PT, CKCKMB, CMP #### [place] [phone] THERAPY NTon 04-02-2018 THERAPY NT HNO ID: [id number] Author: Raj (Cashiers Supervisor) LALO Alamo Service: Respiratory Therapy Author Type: Registered Resp Therapist Type: Therapy (PT/OT/Speech/Resp) Filed: 04/02/2018 7:49 AM Note Text: ABG drawn from right brachial artery. Site held until bleeding stopped. Normal [facility] Troponin Ton 04-02-2018 Troponin T.cardiac mass conc 9.390 ng/mL High 0.000-0.029 [facility] Comment on above: Result Comment: Urge nt value previously called On 04/02/18 at 0915 T Conn Performed By: #### P TT, NTBNP, HSTNT, CBCDIF, PT, CKCKMB, CMP #### [place] [phone] Troponin T.cardiac mass conc 9.520 ng/mL High 0.000-0.029 [facility] Comment on above: Result Comment: Urge nt value previously called on 04/02/18 0915 A.Bias Performed By: #### P TT, NTBNP, HSTNT, CBCDIF, PT, CKCKMB, CMP #### [place] [phone] Troponin T.cardiac mass conc 10.090 ng/mL High 0.000-0.029 [facility] Comment on above: Result Comment: Call ed to and read back by: Harley Valadez RN Melvin Cheyanne 04/02/2018 0915 Murray Performed By: #### P TT, NTBNP, HSTNT, CBCDIF, PT, CKCKMB, CMP #### [place] [id number] [place] [address] XR CHEST 1V FRONTALon 2018 XR CHEST [...] EXTENT IN THE LEFT PERIHILAR REGION BONY Turkey Farmer: [facility] Transcribe Date/Time: Apr 02 2018 7:57A Dictated by : BROOKE SEE MD This examination was interpreted and the report reviewed and electronically signed by: BROOKE SEE MD on Apr 02 2018 7:59AM EST [id number] Normal [facility] Basic Metabolic Panlon 04-01 Anion gap molar conc 18 mmol/L Normal 9-18 [facility] Comment on above: Performed By: #### P TT, NTBNP, HSTNT, CBCDIF, PT, CKCKMB, CMP #### [place] [id number] [place] [address] Calcium mass conc 8.5 mg/dL Normal 8.5-10.5 [facility] Comment on above: Performed By: #### P TT, NTBNP, HSTNT, CBCDIF, PT, CKCKMB, CMP #### [place] [address] Chloride molar conc 96 mmol/L Low 98-110 [facility] Comment on above: Result Comment: Revi ewed Performed By: #### P TT, NTBNP, HSTNT, CBCDIF, PT, CKCKMB, CMP #### [phone] CO2 molar conc 19 mmol/L Low 23-32 [facility] Comment on above: Performed By: #### P TT, NTBNP, HSTNT, CBCDIF, PT, CKCKMB, CMP #### [place] [phone] Creatinine mass conc 3.28 mg/dL High 0.70-1.40 [facility] Comment on above: Performed By: #### P TT, NTBNP, HSTNT, CBCDIF, PT, CKCKMB, CMP #### [place] [phone] eGFR- Amer. 17 Low >60 [facility] Comment on above: Performed By: #### P TT, NTBNP, HSTNT, CBCDIF, PT, CKCKMB, CMP #### [place] [phone] GFR/1.73 sq M predicted among non-blacks MDRD vol rate/area (S/P/Bld) 14 . Low >60 [facility] Comment on above: Performed By: #### P TT, NTBNP, HSTNT, CBCDIF, PT, CKCKMB, CMP #### [place] [phone] Glucose mass conc 91 mg/dL Normal 65-100 [facility] Comment on above: Performed By: #### P TT, NTBNP, HSTNT, CBCDIF, PT, CKCKMB, CMP #### [phone] Potassium molar conc 4.5 mmol/L Normal 3.5-5.0 [facility] Comment on above: Result Comment: Revi ewed Performed By: #### P TT, NTBNP, HSTNT, CBCDIF, PT, CKCKMB, CMP #### [place] [phone] Sodium molar conc 133 mmol/L Normal 132-148 [facility] Comment on above: Performed By: #### P TT, NTBNP, HSTNT, CBCDIF, PT, CKCKMB, CMP #### [place] [phone] Urea nitrogen mass conc 88 mg/dL High 8-25 [facility] Comment on above: Performed By: #### P TT, NTBNP, HSTNT, CBCDIF, PT, CKCKMB, CMP #### [place] [phone] CBC and Differentialon 04-01 Abs Baso <0.03 Normal <0.11 [facility] Comment on above: Performed By: #### P TT, NTBNP, HSTNT, CBCDIF, PT, CKCKMB, CMP #### [place] [phone] Abs [place] 0.47 k/uL Normal <0.87 [facility] Comment on above: Performed By: #### P TT, NTBNP, HSTNT, CBCDIF, PT, CKCKMB, CMP #### [place] [phone] Abs Neut 5.68 k/uL Normal 1.45-7.50 [facility] Comment on above: Performed By: #### P TT, NTBNP, HSTNT, CBCDIF, PT, CKCKMB, CMP #### [place] [phone] Basophils/100 WBC (Bld) 0.2 % Normal [facility] Comment on above: Performed By: #### P TT, NTBNP, HSTNT, CBCDIF, PT, CKCKMB, CMP #### [place] [phone] DTYPE Auto Diff Normal [facility] Comment on above: Performed By: #### P TT, NTBNP, HSTNT, CBCDIF, PT, CKCKMB, CMP #### [place] [address] Eosinophils #/vol (Bld) 0.05 10*3/uL Normal <0.46 [facility] Comment on above: Performed By: #### P TT, NTBNP, HSTNT, CBCDIF, PT, CKCKMB, CMP #### [place] [address] Eosinophils/100 WBC (Bld) 0.8 % Normal [facility] Comment on above: Performed By: #### P TT, NTBNP, HSTNT, CBCDIF, PT, CKCKMB, CMP #### [place] [address] Erythrocyte distribution width Ratio (RBC) 13.9 % Normal 11.5-15.0 [facility] Comment on above: Performed By: #### P TT, NTBNP, HSTNT, CBCDIF, PT, CKCKMB, CMP #### [place] [address] Hematocrit Volume Fraction (Bld) 22.2 % Low 36.0-46.0 [facility] Comment on above: Performed By: #### P TT, NTBNP, HSTNT, CBCDIF, PT, CKCKMB, CMP #### [place] [address] Hemoglobin mass conc (Bld) 7.5 g/dL Low 11.5-15.5 [facility] Comment on above: Performed By: #### P TT, NTBNP, HSTNT, CBCDIF, PT, CKCKMB, CMP #### [place] [address] Lymphocytes #/vol (Bld) 0.32 10*3/uL Low 1.00-4.00 [facility] Comment on above: Performed By: #### P TT, NTBNP, HSTNT, CBCDIF, PT, CKCKMB, CMP #### [place] [phone] Lymphocytes/100 WBC (Bld) 4.9 % Normal [facility] Comment on above: Performed By: #### P TT, NTBNP, HSTNT, CBCDIF, PT, CKCKMB, CMP #### [place] [address] MCH Entitic mass (RBC) 28.8 pG Normal 26.0-34.0 [facility] Comment on above: Performed By: #### P TT, NTBNP, HSTNT, CBCDIF, PT, CKCKMB, CMP #### [place] [address] MCHC mass conc (RBC) 33.8 g/dL Normal 30.5-36.0 [facility] Comment on above: Performed By: #### P TT, NTBNP, HSTNT, CBCDIF, PT, CKCKMB, CMP #### [place] [phone] MCV Entitic volume (RBC) 85.4 fL Normal 80.0-100.0 [facility] Comment on above: Performed By: #### P TT, NTBNP, HSTNT, CBCDIF, PT, CKCKMB, CMP #### [address] Monocytes/100 WBC (Bld) 7.2 % Normal [facility] Comment on above: Performed By: #### P TT, NTBNP, HSTNT, CBCDIF, PT, CKCKMB, CMP #### [address] Neutrophils/100 WBC (Bld) 86.9 % Normal [facility] Comment on above: Performed By: #### P TT, NTBNP, HSTNT, CBCDIF, PT, CKCKMB, CMP #### [place] [phone] Platelet mean volume Entitic volume (Bld) 11.5 fL Normal 9.0-12.7 [facility] Comment on above: Performed By: #### P TT, NTBNP, HSTNT, CBCDIF, PT, CKCKMB, CMP #### [place] [phone] Platelets #/vol (Bld) 151 10*3/uL Normal 150-400 [facility] Comment on above: Performed By: #### P TT, NTBNP, HSTNT, CBCDIF, PT, CKCKMB, CMP #### [phone] RBC #/vol (Bld) 2.60 10*6/uL Low 3.90-5.20 [facility] Comment on above: Performed By: #### P TT, NTBNP, HSTNT, CBCDIF, PT, CKCKMB, CMP #### [phone] WBC #/vol (Bld) 6.53 10*3/uL Normal 3.70-11.00 [facility] Comment on above: Performed By: #### P TT, NTBNP, HSTNT, CBCDIF, PT, CKCKMB, CMP #### [place] [phone] NURSING PROGon 04-01-2018 Protein mass conc HNO ID: [id number] Author: Niharika (Rn) DEBBIE Bell Service: (none) Author Type: Registered Nurse Type: Nursing Progress Note Filed: 04/01/2018 6:18 PM Note Text: Nursing Progress Note Patient Name: Sarina Lovett Patient Location: [id number]/[id number] Daily Note:1530 (late entry) resumed care of patient. Pt resting in bed without s/s of distress. Pt denies pain. No needs at this time. Call light within reach, will continue to monitor. This note was completed by: Niharika Bell RN [facility] PROGRESSon 04-01-2018 Protein mass conc HNO ID: [id number] Author: Eleni Flanagan Service: Nephrology Author Type: [...] Date 04/01/18 07 - 04/02/18 0659 Shift [id number] 2523-1382 4236-0578 24 Hour Total I N T A [...] Flanagan MD PhD PATIENT NAME: Sarina Lovett [facility] Protein mass conc HNO ID: [id number] Author: Laura Chance Service: General Internal Medicine [...] 03/24/182044 vte non-pharmacologic prophylaxis - none indicated ([place]) 03/24/182044 activity - mobilize patient ([place], [place]) VTE Prophylaxis: VTE prophylaxis appropriate SIGNATURE: Laura Chance APRN.CNP PATIENT NAME: Sarina Lovett DATE: April 01, 2018 TIME: 8:05 AM PAGER: D/w dr peters And with pt permission d/w Paul rivera Care time > 35 minute, significant time spent d/w patient/family current plan of care Normal [facility] Phosphoruson 04-01-2018 Phosphate mass conc 5.9 mg/dL High 2.5-4.5 [facility] Comment on above: Performed By: #### P TT, NTBNP, HSTNT, CBCDIF, PT, CKCKMB, CMP #### [place] [phone] Arterial Blood Gas (FOR WEST USE ONLY)on 03-31-2018 Base Excess Negative Normal [facility] Comment on above: Result Comment: -3 t o 3 Performed By: #### P TT, NTBNP, HSTNT, CBCDIF, PT, CKCKMB, CMP #### [place] [phone] CO2 molar conc 18 mmol/L Low 22.0-28.0 [facility] Comment on above: Performed By: #### P TT, NTBNP, HSTNT, CBCDIF, PT, CKCKMB, CMP #### [place] [phone] Device Nasal Cannula Normal [facility] Comment on above: Performed By: #### P TT, NTBNP, HSTNT, CBCDIF, PT, CKCKMB, CMP #### [place] [phone] Drawsite Right Brachial Normal [facility] Comment on above: Performed By: #### P TT, NTBNP, HSTNT, CBCDIF, PT, CKCKMB, CMP #### [place] [address] HCO3 molar conc (Bld) 17 mmol/L Low 22-26 [facility] Comment on above: Performed By: #### P TT, NTBNP, HSTNT, CBCDIF, PT, CKCKMB, CMP #### [place] [address] O2 Administered 28.0 Normal [facility] Comment on above: Performed By: #### P TT, NTBNP, HSTNT, CBCDIF, PT, CKCKMB, CMP #### [place] [address] Oxygen ppres (Bld) 94 % Normal 90-98 [facility] Comment on above: Performed By: #### P TT, NTBNP, HSTNT, CBCDIF, PT, CKCKMB, CMP #### [place] [address] Oxygen ppres (Bld) 76 mm Hg Low 80-100 [facility] Comment on above: Performed By: #### P TT, NTBNP, HSTNT, CBCDIF, PT, CKCKMB, CMP #### [place] [address] pCO2 32 mm Hg Low 35-48 [facility] Comment on above: Performed By: #### P TT, NTBNP, HSTNT, CBCDIF, PT, CKCKMB, CMP #### [place] [address] pH (Bld) 7.35 [pH] Normal 7.35-7.45 [facility] Comment on above: Performed By: #### P TT, NTBNP, HSTNT, CBCDIF, PT, CKCKMB, CMP #### [place] [address] CASE MANAGEMon 03-31-2018 CASE MANAGEM HNO ID: [id number] Author: Bro Wood (Sw) Service: Care Management Author Type: Tank Washer Type: Care Mgt Progress Note Filed: 03/31/2018 1:35 PM Note Text: CARE MANAGEMENT PROGRESS NOTE SERVICE DATE: 03/31/2018 SERVICE TIME: 10:40 AM LOS: 7 days FREEDOM OF CHOICE GIVEN: Yes patient Financial Disclosure Provided Provider List: Home Care Preference: [facility]. [place] Needs Prior to Discharge: To Be Determined Waiting on acceptance for HHC, patient will need home care order. Desat study needed to determine if patient will need O2. Addendum- [facility] and [facility] can accept patient for HHC. SIGNATURE: KARRIE FORTE PATIENT NAME: Sarina Lovett DATE: March 31, 2018 TIME: 10:39 AM PAGER/CONTACT #: [phone] Normal [facility] CBC and Differentialon 03-31 Abs Baso <0.03 Normal <0.11 [facility] Comment on above: Performed By: #### P TT, NTBNP, HSTNT, CBCDIF, PT, CKCKMB, CMP #### [place] [phone] Abs [place] 0.49 k/uL Normal <0.87 [facility] Comment on above: Performed By: #### P TT, NTBNP, HSTNT, CBCDIF, PT, CKCKMB, CMP #### [place] [phone] Abs Neut 7.17 k/uL Normal 1.45-7.50 [facility] Comment on above: Performed By: #### P TT, NTBNP, HSTNT, CBCDIF, PT, CKCKMB, CMP #### [place] [phone] Basophils/100 WBC (Bld) 0.1 % Normal [facility] Comment on above: Performed By: #### P TT, NTBNP, HSTNT, CBCDIF, PT, CKCKMB, CMP #### [place] [phone] DTYPE Auto Diff Normal [facility] Comment on above: Performed By: #### P TT, NTBNP, HSTNT, CBCDIF, PT, CKCKMB, CMP #### [place] [address] Eosinophils #/vol (Bld) 0.05 10*3/uL Normal <0.46 [facility] Comment on above: Performed By: #### P TT, NTBNP, HSTNT, CBCDIF, PT, CKCKMB, CMP #### [place] [address] Eosinophils/100 WBC (Bld) 0.6 % Normal [facility] Comment on above: Performed By: #### P TT, NTBNP, HSTNT, CBCDIF, PT, CKCKMB, CMP #### [place] [address] Erythrocyte distribution width Ratio (RBC) 13.9 % Normal 11.5-15.0 [facility] Comment on above: Performed By: #### P TT, NTBNP, HSTNT, CBCDIF, PT, CKCKMB, CMP #### [place] [address] Hematocrit Volume Fraction (Bld) 23.5 % Low 36.0-46.0 [facility] Comment on above: Performed By: #### P TT, NTBNP, HSTNT, CBCDIF, PT, CKCKMB, CMP #### [place] [address] Hemoglobin mass conc (Bld) 7.8 g/dL Low 11.5-15.5 [facility] Comment on above: Performed By: #### P TT, NTBNP, HSTNT, CBCDIF, PT, CKCKMB, CMP #### [place] [address] Lymphocytes #/vol (Bld) 0.44 10*3/uL Low 1.00-4.00 [facility] Comment on above: Performed By: #### P TT, NTBNP, HSTNT, CBCDIF, PT, CKCKMB, CMP #### [address] Lymphocytes/100 WBC (Bld) 5.4 % Normal [facility] Comment on above: Performed By: #### P TT, NTBNP, HSTNT, CBCDIF, PT, CKCKMB, CMP #### [place] [id number] MCH Entitic mass (RBC) 28.5 pG Normal 26.0-34.0 [facility] Comment on above: Performed By: #### P TT, NTBNP, HSTNT, CBCDIF, PT, CKCKMB, CMP #### [place] [address] MCHC mass conc (RBC) 33.2 g/dL Normal 30.5-36.0 [facility] Comment on above: Performed By: #### P TT, NTBNP, HSTNT, CBCDIF, PT, CKCKMB, CMP #### [address] MCV Entitic volume (RBC) 85.8 fL Normal 80.0-100.0 [facility] Comment on above: Performed By: #### P TT, NTBNP, HSTNT, CBCDIF, PT, CKCKMB, CMP #### [place] [phone] Monocytes/100 WBC (Bld) 6.0 % Normal [facility] Comment on above: Performed By: #### P TT, NTBNP, HSTNT, CBCDIF, PT, CKCKMB, CMP #### [address] Neutrophils/100 WBC (Bld) 87.9 % Normal [facility] Comment on above: Performed By: #### P TT, NTBNP, HSTNT, CBCDIF, PT, CKCKMB, CMP #### [place] [phone] Platelet mean volume Entitic volume (Bld) 11.6 fL Normal 9.0-12.7 [facility] Comment on above: Performed By: #### P TT, NTBNP, HSTNT, CBCDIF, PT, CKCKMB, CMP #### [place] [phone] Platelets #/vol (Bld) 152 10*3/uL Normal 150-400 [facility] Comment on above: Performed By: #### P TT, NTBNP, HSTNT, CBCDIF, PT, CKCKMB, CMP #### [place] [phone] RBC #/vol (Bld) 2.74 10*6/uL Low 3.90-5.20 [facility] Comment on above: Performed By: #### P TT, NTBNP, HSTNT, CBCDIF, PT, CKCKMB, CMP #### [place] [phone] WBC #/vol (Bld) 8.16 10*3/uL Normal 3.70-11.00 [facility] Comment on above: Performed By: #### P TT, NTBNP, HSTNT, CBCDIF, PT, CKCKMB, CMP #### [phone] CONSULT PROGon 03-31-2018 Protein mass conc HNO ID: [id number] Author: Deanna Yoo Service: Cardiovascular Medicine Author [...] 75 mg ORAL DAILY 03/24/182035 -- @ PLINK([id number])@ VTE Prophylaxis: VTE prophylaxis appropriate SIGNATURE: Deanna Yoo APRN.CNP PATIENT NAME: Sarina Lovett DATE: March 31, 2018 TIME: 4:19 PM PAGER/CONTACT #: [facility] Protein mass conc HNO ID: [id number] Author: Kamille Ulrich) Jessica Service: Gastroenterology Author [...] follow clinical progress ? Kamille Lopez CNP [facility] Thank you for allowing us to participate in the care of this patient. Please call with questions or concerns. SIGNATURE: Kamille Lopez APRN.BHARAT PATIENT NAME: Sarina Lovett DATE: March 31, 2018 TIME: 11:03 AM PAGER: [phone] [facility] Protein mass conc HNO ID: [id number] Author: Marito Real Service: Nephrology Author Type: [...] March 31, 2018 TIME: 10:57 AM PAGER: [phone] Addendum Pt seen and examined. Agree with Dr De Los Santos's note. Her renal function continues to worsen. Will need to consider dialysis by Tuesday if her renal function continues to worsen. Continue conservative therapy for contrast nephropathy Use Lasix as needed if she is symptomatically SOB Hyperphosphatemia - add Phoslo 1334mg tidac Met Acidosis - cont NaHCO3 1300mg tid Dr Real Normal [facility] Comp Metabolic Panelon 03-31 Albumin mass conc 3.2 g/dL Low 3.5-5.0 [facility] Comment on above: Performed By: #### P TT, NTBNP, HSTNT, CBCDIF, PT, CKCKMB, CMP #### [place] [address] ALP enzyme act/vol 80 U/L Normal 34-123 [facility] Comment on above: Performed By: #### P TT, NTBNP, HSTNT, CBCDIF, PT, CKCKMB, CMP #### [place] [address] ALT enzyme act/vol 20 U/L Normal 0-45 [facility] Comment on above: Performed By: #### P TT, NTBNP, HSTNT, CBCDIF, PT, CKCKMB, CMP #### [place] [phone] Anion gap molar conc 26 mmol/L High 9-18 [facility] Comment on above: Performed By: #### P TT, NTBNP, HSTNT, CBCDIF, PT, CKCKMB, CMP #### [place] [id number] AST enzyme act/vol 29 U/L Normal 7-40 [facility] Comment on above: Performed By: #### P TT, NTBNP, HSTNT, CBCDIF, PT, CKCKMB, CMP #### [place] [phone] Bilirubin mass conc 0.2 mg/dL Normal 0.2-1.3 [facility] Comment on above: Performed By: #### P TT, NTBNP, HSTNT, CBCDIF, PT, CKCKMB, CMP #### [place] [phone] Calcium mass conc 7.8 mg/dL Low 8.5-10.5 [facility] Comment on above: Performed By: #### P TT, NTBNP, HSTNT, CBCDIF, PT, CKCKMB, CMP #### [place] [phone] Chloride molar conc 88 mmol/L Low 98-110 [facility] Comment on above: Performed By: #### P TT, NTBNP, HSTNT, CBCDIF, PT, CKCKMB, CMP #### [place] [phone] CO2 molar conc 14 mmol/L Low 23-32 [facility] Comment on above: Performed By: #### P TT, NTBNP, HSTNT, CBCDIF, PT, CKCKMB, CMP #### [place] [phone] Creatinine mass conc 3.60 mg/dL High 0.70-1.40 [facility] Comment on above: Performed By: #### P TT, NTBNP, HSTNT, CBCDIF, PT, CKCKMB, CMP #### [place] [address] eGFR- Amer. 15 Low >60 [facility] Comment on above: Performed By: #### P TT, NTBNP, HSTNT, CBCDIF, PT, CKCKMB, CMP #### [place] [phone] GFR/1.73 sq M predicted among non-blacks MDRD vol rate/area (S/P/Bld) 12 . Low >60 [facility] Comment on above: Performed By: #### P TT, NTBNP, HSTNT, CBCDIF, PT, CKCKMB, CMP #### [place] [address] Glucose mass conc 132 mg/dL High 65-100 [facility] Comment on above: Performed By: #### P TT, NTBNP, HSTNT, CBCDIF, PT, CKCKMB, CMP #### [place] [phone] Potassium molar conc 3.2 mmol/L Low 3.5-5.0 [facility] Comment on above: Performed By: #### P TT, NTBNP, HSTNT, CBCDIF, PT, CKCKMB, CMP #### [place] [address] Protein mass conc 6.3 g/dL Normal 6.0-8.4 [facility] Comment on above: Performed By: #### P TT, NTBNP, HSTNT, CBCDIF, PT, CKCKMB, CMP #### [place] [phone] Sodium molar conc 128 mmol/L Low 132-148 [facility] Comment on above: Performed By: #### P TT, NTBNP, HSTNT, CBCDIF, PT, CKCKMB, CMP #### [place] [phone] Urea nitrogen mass conc 85 mg/dL High 8-25 [facility] Comment on above: Performed By: #### P TT, NTBNP, HSTNT, CBCDIF, PT, CKCKMB, CMP #### [place] [phone] Lactateon 03-31-2018 Lactate molar conc 0.6 mmol/L Normal 0.4-2.0 [facility] Comment on above: Performed By: #### P TT, NTBNP, HSTNT, CBCDIF, PT, CKCKMB, CMP #### [place] [phone] Magnesiumon 03-31-2018 Magnesium mass conc 2.1 mg/dL Normal 1.7-2.6 [facility] Comment on above: Performed By: #### P TT, NTBNP, HSTNT, CBCDIF, PT, CKCKMB, CMP #### [place] [phone] NURSING PROGon 03-31-2018 Protein mass conc HNO ID: [id number] Author: Neris (Rn) DEBBIE English Service: Abstract Author Type: Registered Nurse Type: Nursing Progress Note Filed: 03/31/2018 5:58 PM Note Text: Nursing Progress Note Patient Name: Sarina Lovett Patient Location: [address]/[place] [address] Daily Note: 1757: Family member states patient has a history of vertigo. 1500: Dr. Peters notified of ABG results. No further orders given, continue to monitor patient. 1423: verbal Orders from Dr. Peters 1422: Patient very drowsy c/o dizziness, orthos negative. Page sent out to Dr. Peters 1023: Page sent to GI APPEALS SPECIALIST Kamille Lopez [id number] Barry LOVETT hemoglobin this morning down to 7.8. No BMs yet, or other signs of bleeding. Okay to give Plavix and heparin? Nreis Rojas [id number]: Dr. Peters returned page, aware of labs. 0830: Dr. Real aware of abnormal labs. No orders received. Will continue to monitor. 0826:Page sent to Dr. Peters for abnormal labs. This note was completed by: Neris English RN [facility] NUTRITIONon 03-31-2018 NUTRITION HNO ID: [id number] Author: Ophelia Joiner) Gurdeep Service: Nutrition Therapy Author Type: Cement Mason Helper Type: Nutrition Filed: 03/31/2018 12:24 PM Note [...] March 31, 2018 TIME: 12:09 PM PAGER: [phone] [facility] PROGRESSon 03-31-2018 Protein mass conc HNO ID: [id number] Author: Andree Peters Service: General Internal Medicine [...] 03/24/182044 vte non-pharmacologic prophylaxis - none indicated ([place], [place]) 03/24/182044 activity - mobilize patient ([place]) VTE Prophylaxis: VTE prophylaxis appropriate SIGNATURE: Andree Peters MD PATIENT NAME: Sarina Lovett DATE: March 31, 2018 TIME: 9:13 AM PAGER: [facility] Phosphoruson 03-31-2018 Phosphate mass conc 6.2 mg/dL High 2.5-4.5 [facility] Comment on above: Performed By: #### P TT, NTBNP, HSTNT, CBCDIF, PT, CKCKMB, CMP #### [place] [phone] [place] [address] THERAPY NTon 03-31-2018 THERAPY NT HNO ID: [id number] Author: Yanelis (Cashiers Supervisor) LALO Jean Baptiste Service: (none) Author Type: Registered Resp Therapist Type: Therapy (PT/OT/Speech/Resp) Filed: 03/31/2018 2:48 PM Note Text: ABG drawn from Right Brachial including Lactate no ; Laci test no; pressure held, bleeding stopped. [facility] HEALTH 03-30-2018 ALLIED HEALTH HNO ID: [id number] Author: CAROLINA Guthrie (Ct) Service: Radiology Author Type: Wholesaler Type: Allied Health Filed: 03/30/2018 7:21 PM [...] Guthrie March 30, 2018 7:20 PM Normal [facility] Basic Metabolic Panlon 03-30 Anion gap molar conc 23 mmol/L High 9-18 [facility] Comment on above: Performed By: #### P TT, NTBNP, HSTNT, CBCDIF, PT, CKCKMB, CMP #### [place] [phone] Calcium mass conc 8.0 mg/dL Low 8.5-10.5 [facility] Comment on above: Performed By: #### P TT, NTBNP, HSTNT, CBCDIF, PT, CKCKMB, CMP #### [place] [phone] Chloride molar conc 93 mmol/L Low 98-110 [facility] Comment on above: Performed By: #### P TT, NTBNP, HSTNT, CBCDIF, PT, CKCKMB, CMP #### [place] [phone] CO2 molar conc 16 mmol/L Low 23-32 [facility] Comment on above: Performed By: #### P TT, NTBNP, HSTNT, CBCDIF, PT, CKCKMB, CMP #### [phone] Creatinine mass conc 3.15 mg/dL High 0.70-1.40 [facility] Comment on above: Performed By: #### P TT, NTBNP, HSTNT, CBCDIF, PT, CKCKMB, CMP #### [place] [address] eGFR- Amer. 18 Low >60 [facility] Comment on above: Performed By: #### P TT, NTBNP, HSTNT, CBCDIF, PT, CKCKMB, CMP #### [place] [phone] GFR/1.73 sq M predicted among non-blacks MDRD vol rate/area (S/P/Bld) 15 . Low >60 [facility] Comment on above: Performed By: #### P TT, NTBNP, HSTNT, CBCDIF, PT, CKCKMB, CMP #### [place] [address] Glucose mass conc 120 mg/dL High 65-100 [facility] Comment on above: Performed By: #### P TT, NTBNP, HSTNT, CBCDIF, PT, CKCKMB, CMP #### [place] [address] Potassium molar conc 3.9 mmol/L Normal 3.5-5.0 [facility] Comment on above: Performed By: #### P TT, NTBNP, HSTNT, CBCDIF, PT, CKCKMB, CMP #### [place] [address] Sodium molar conc 132 mmol/L Normal 132-148 [facility] Comment on above: Performed By: #### P TT, NTBNP, HSTNT, CBCDIF, PT, CKCKMB, CMP #### [place] [phone] Urea nitrogen mass conc 74 mg/dL High 8-25 [facility] Comment on above: Performed By: #### P TT, NTBNP, HSTNT, CBCDIF, PT, CKCKMB, CMP #### [address] [address] CASE MANAGEMon 03-30-2018 CASE MANAGEM HNO ID: [id number] Author: Bro Wood (Sw) Service: Care Management Author Type: Tank Washer Type: Care Mgt Progress Note Filed: 03/30/2018 2:19 PM Note Text: CARE MANAGEMENT PROGRESS NOTE SERVICE DATE: 03/30/2018 SERVICE TIME: 2:18 PM LOS: 6 days FREEDOM OF CHOICE GIVEN: Yes patient Financial Disclosure Provided Provider List: Home Care Waiting on [facility] choices. SIGNATURE: KARRIE FORTE PATIENT NAME: Sarina Lovett DATE: March 30, 2018 TIME: 2:18 PM PAGER/CONTACT #: [phone] [facility] CASE MANAGEM HNO ID: [id number] Author: Bro Wood (Sw) Service: Care Management Author Type: Tank Washer Type: Care Mgt Progress Note Filed: 03/30/2018 9:28 AM Note Text: CARE MANAGEMENT PROGRESS NOTE SERVICE DATE: 03/30/2018 SERVICE TIME: 9:25 AM LOS: 6 days Patient transferred to [facility]. PT has NSTEMI. Elevated creatinine. SW will follow for discharge needs. SIGNATURE: KARRIE FORTE PATIENT NAME: Sarina Lovett DATE: March 30, 2018 TIME: 9:25 AM PAGER/CONTACT #: [phone] [facility] CKon 03-30-2018 CK enzyme act/vol 242 U/L High 30-220 [facility] Comment on above: Performed By: #### P TT, NTBNP, HSTNT, CBCDIF, PT, CKCKMB, CMP #### [address] [address] CONSULTon 03-30-2018 CONSULT HNO ID: [id number] Author: Cindy Veliz (Pa) Service: Gastroenterology Author Type: Physician Carrier Washer Type: Consults Filed: 03/30/2018 7:48 PM Note [...] pain, diarrhea, concern for diverticulitis. PMHx of CAD/LA s/p RCA stent, AVR in 2005, CKD, [...] nausea. Denies fever and vomiting. Recrods from [facility] show CT scan 02/22/17 consistent with sigmoid [...] Coronary atherosclerosis of unspecified type of vessel, [place] or graft Coronary Atherosclerosis - Diabetes (HCC) [...] March 30, 2018 TIME: 10:27 AM PAGER: [phone] [facility] CONSULT PROGon 03-30-2018 Protein mass conc HNO ID: [id number] Author: Marito Real Service: Nephrology Author Type: [...] rise. Stop Hydralazine as well Dr Real [facility] CT ABD/PEL WO IVCONon 2018 CT ABD/PEL [...] with overlying atelectasis, right greater than left. Turkey Farmer: [facility] Transcribe Date/Time: Mar 30 2018 10:04P Dictated by : KUSH BARAJAS MD This examination was interpreted and the report reviewed and electronically signed by: KUSH BARAJAS MD on Mar 30 2018 10:23PM EST [id number] N Normal [facility] Magnesiumon 03-30-2018 Magnesium mass conc 2.3 mg/dL Normal 1.7-2.6 [facility] Comment on above: Result Comment: Revi ewed Performed By: #### P TT, NTBNP, HSTNT, CBCDIF, PT, CKCKMB, CMP #### [facility] [address] [place] [address] NURSING PROGon 03-30-2018 Protein mass conc HNO ID: [id number] Author: Shiv (Rn) DEBBIE Majano Service: (none) Author Type: Registered Nurse Type: Nursing Progress Note Filed: 03/30/2018 6:55 AM Note Text: Nursing Progress Note Patient Name: Sarina Lovett Patient Location: [place] [address] Daily Note:patient arrives from [facility] by wheelchair, NPR complete, tele maintained, belongings with patient, oriented patient to room. This note was completed by: Shiv Majano RN [facility] PROGRESSon 03-30-2018 Protein mass conc HNO ID: [id number] Author: Mesha Ferraro Service: General Internal Medicine [...] Time spent >30 minutes. SIGNATURE: Mesha Ferraro APRN.EDGE BURNISHER PATIENT NAME: Sarina Lovett DATE: 03/30/18 TIME: 9:35 AM PAGER/CONTACT #: [phone] [facility] THERAPY NTon 03-30-2018 THERAPY NT HNO ID: [id number] Author: Kindra Mei/Shima Harper Service: Occupational Therapy Author Type: Occupational Therapist Type: Therapy (PT/OT/Speech/Resp) Filed: 03/30/2018 2:40 PM Note Text: Occupational Therapy Evaluation SERVICE DATE: 03/30/2018 SERVICE TIME: 1315 to 1340 ROOM: [place] [address] Recommended Discharge Disposition: Home OT Anticipated Discharge Needs: Physical Assist at Home Physical Assist at Home for: Cleaning;Laundry;Meal s;Stairs;Self Care;Shopping;Transpo rtation Recommended Discharge Equipment: Grab Bars-Shower;Grab Bars-Toilet;Hand Held Shower;Long Handled Sponge;Wheeled Walker;Administrative Court Justice;Shower Chair OT Recommendations to Nursing: To Bathroom [...] of daily living (ADL) Interventions Provided: Evaluation;Self Fci Management (42344) $ Evaluation-Low (02362) Billed Units: 1 unit Self Fci Management (09333) Treatment Minutes: 10 1 unit Skilled Intervention(s): [...] respiratory failure Relevant Past Medical History: acute LA, CAD, CABG, CKD, HTN, diverticulitis, psych d/o, [...] DATE: March 30, 2018 TIME: 2:38 PM [facility] THERAPY NT HNO ID: [id number] Author: Ade Devlin Service: Physical Therapy Author Type: Physical Therapist Type: Therapy (PT/OT/Speech/Resp) Filed: 03/30/2018 12:42 PM Note Text: Physical Therapy Evaluation SERVICE DATE: 03/30/2018 SERVICE TIME: 1140 to 1205 ROOM: [place] [address] Recommended Discharge Disposition: Home PT Anticipated Discharge [...] mobility-other;Muscle Weakness (generalized) Interventions Provided: Evaluation;Gait Training (06655) $ Evaluation-Low (95433) Billed Units: 1 unit Gait Training (73816) Treatment Minutes: 10 1 unit Skilled Intervention(s): [...] Assistance Dynamic Standing Balance: Contact Guard Assistance [facility]: 7: Walk 25 feet or more Please see discipline specific clinical documentation flowsheet for complete details for this therapy evaluation/treatment. SIGNATURE: Ade Devlin PT PATIENT NAME: Sarina Lovett DATE: March 30, 2018 TIME: 12:39 PM [facility] US ABD SPLEENon 03-30-2018 US ABD SPLEEN [...] contrast-enhanced CT or MRI is again recommended. Turkey Farmer: [place] Transcribe Date/Time: Mar 30 2018 12:21P Dictated by : PHILLIP MONTALVO MD This examination was interpreted and the report reviewed and electronically signed by: PHILLIP MONTALVO MD on Mar 30 2018 12:27PM EST [id number] N Normal [facility] Basic Metabolic Panlon 03-29 Anion gap molar conc 23 mmol/L High 9-18 [facility] Comment on above: Performed By: #### B DEION, MG1, CBCDIF ####[place] [id number] [place], [place] [phone] Calcium mass conc 8.0 mg/dL Low 8.5-10.5 [facility] Comment on above: Performed By: #### B DEION MG1, CBCDIF ####[facility] [place], [place] [phone] Chloride molar conc 94 mmol/L Low 98-110 [facility] Comment on above: Performed By: #### B MP, MG1, CBCDIF ####[facility] [place] [address] [phone] CO2 molar conc 16 mmol/L Low 23-32 [facility] Comment on above: Performed By: #### B MP, MG1, CBCDIF ####[place] [address] Creatinine mass conc 2.63 mg/dL High 0.70-1.40 [facility] Comment on above: Performed By: #### B MP, MG1, CBCDIF ####[place] [phone] eGFR- Amer. 22 Low >60 [facility] Comment on above: Performed By: #### B MP, MG1, CBCDIF ####[place] [address] GFR/1.73 sq M predicted among non-blacks MDRD vol rate/area (S/P/Bld) 18 . Low >60 [facility] Comment on above: Performed By: #### B DEION, MG1, CBCDIF ####[place] [address] Glucose mass conc 122 mg/dL High 65-100 [facility] Comment on above: Performed By: #### B DEION, MG1, CBCDIF ####[place] [address] Potassium molar conc 3.4 mmol/L Low 3.5-5.0 [facility] Comment on above: Performed By: #### B MP, MG1, CBCDIF ####[place] [address] Sodium molar conc 133 mmol/L Normal 132-148 [facility] Comment on above: Performed By: #### B MP, MG1, CBCDIF ####[address] Urea nitrogen mass conc 59 mg/dL High 8-25 [facility] Comment on above: Performed By: #### B MP, MG1, CBCDIF ####[place] [phone] C difficile PCRon 03-29-2018 C difficile PCR Negative Normal [facility] Comment on above: Performed By: #### P TT, NTBNP, HSTNT, CBCDIF, PT, CKCKMB, CMP #### [phone] CBC and Differentialon 03-29 Abs Baso <0.03 Normal <0.11 [facility] Comment on above: Performed By: #### B MP, MG1, CBCDIF ####[place] [phone] Abs [place] 0.81 k/uL Normal <0.87 [facility] Comment on above: Performed By: #### B MP, MG1, CBCDIF ####[place] [phone] Abs Neut 10.08 k/uL High 1.45-7.50 [facility] Comment on above: Performed By: #### B MP, MG1, CBCDIF ####[place] [address] Basophils/100 WBC (Bld) 0.0 % Normal [facility] Comment on above: Performed By: #### B MP, MG1, CBCDIF ####[place] [address] DTYPE Auto Diff Normal [facility] Comment on above: Performed By: #### B MP, MG1, CBCDIF ####[place] [address] Eosinophils #/vol (Bld) 10*3/uL Normal <0.46 [facility] Comment on above: Performed By: #### B MP, MG1, CBCDIF ####[place] [address] Eosinophils/100 WBC (Bld) 0.0 % Normal [facility] Comment on above: Performed By: #### B MP, MG1, CBCDIF ####[place] [phone] Erythrocyte distribution width Ratio (RBC) 13.8 % Normal 11.5-15.0 [facility] Comment on above: Performed By: #### B DEION MG1, CBCDIF ####[place] [phone] Hematocrit Volume Fraction (Bld) 25.3 % Low 36.0-46.0 [facility] Comment on above: Performed By: #### B DEION, MG1, CBCDIF ####[place] [phone] Hemoglobin mass conc (Bld) 8.3 g/dL Low 11.5-15.5 [facility] Comment on above: Performed By: #### B DEION, MG1, CBCDIF ####[place] [phone] Lymphocytes #/vol (Bld) 0.31 10*3/uL Low 1.00-4.00 [facility] Comment on above: Performed By: #### B DEION, MG1, CBCDIF ####[place] [phone] Lymphocytes/100 WBC (Bld) 2.8 % Normal [facility] Comment on above: Performed By: #### B DEION, MG1, CBCDIF ####[place] [phone] MCH Entitic mass (RBC) 28.5 pG Normal 26.0-34.0 [facility] Comment on above: Performed By: #### B DEION, MG1, CBCDIF ####[place] [phone] MCHC mass conc (RBC) 32.8 g/dL Normal 30.5-36.0 [facility] Comment on above: Performed By: #### B DEION, MG1, CBCDIF ####[place] [phone] MCV Entitic volume (RBC) 86.9 fL Normal 80.0-100.0 [facility] Comment on above: Performed By: #### B MP, MG1, CBCDIF ####[place] [phone] Monocytes/100 WBC (Bld) 7.2 % Normal [facility] Comment on above: Performed By: #### B MP, MG1, CBCDIF ####[place] [phone] Neutrophils/100 WBC (Bld) 90.0 % Normal [facility] Comment on above: Performed By: #### B MP, MG1, CBCDIF ####[place] [phone] Platelet mean volume Entitic volume (Bld) 11.2 fL Normal 9.0-12.7 [facility] Comment on above: Performed By: #### B MP, MG1, CBCDIF ####[place] [phone] Platelets #/vol (Bld) 132 10*3/uL Low 150-400 [facility] Comment on above: Performed By: #### B MP, MG1, CBCDIF ####[place] [phone] RBC #/vol (Bld) 2.91 10*6/uL Low 3.90-5.20 [facility] Comment on above: Performed By: #### B MP, MG1, CBCDIF ####[place] [phone] WBC #/vol (Bld) 11.20 10*3/uL High 3.70-11.00 [facility] Comment on above: Performed By: #### B MP, MG1, CBCDIF ####[place] [phone] CKon 03-29-2018 CK enzyme act/vol 432 U/L High 30-220 [facility] Comment on above: Performed By: #### C K ####[place] [phone] CONSULT PROGon 03-29-2018 Protein mass conc HNO ID: [id number] Author: Juanito Carlisle Service: Cardiovascular Medicine Author [...] 75 mg ORAL DAILY 03/24/182035 -- @LP PLINK([id number],1)@ VTE Prophylaxis: Needs to be revised SIGNATURE: Juanito Carlisle MD PATIENT NAME: Sarina Lovett DATE: March 29, 2018 TIME: 3:59 PM PAGER/CONTACT #: [facility] Protein mass conc HNO ID: [id number] Author: Marito Real Service: Nephrology Author Type: [...] March 29, 2018 TIME: 10:23 AM PAGER: [phone] Addendum Pt seen and examined. Agree with Dr De Los Santos's note. Her renal function continues to worsen from her contrast nephropathy. Continue to use Lasix as needed only for fluid overload. She does not need IVF for oliguria. Dr Real Normal [facility] Magnesiumon 03-29-2018 Magnesium mass conc 1.6 mg/dL Low 1.7-2.6 [facility] Comment on above: Performed By: #### B MP, MG1, CBCDIF ####[facility] [place], [place] [phone] NURSING PROGon 03-29-2018 Protein mass conc HNO ID: [id number] Author: Augie (Rn) DEBBIE Villafuerte Service: (none) Author Type: Registered Nurse Type: Nursing Progress Note Filed: 03/30/2018 2:22 AM Note Text: Nursing Progress Note Patient Name: Sarina Lovett Patient Location: [place] [address] [address]* Daily Note: 1942 The patient assisted to [...] note was completed by: Augie Villafuerte RN [facility] Protein mass conc HNO ID: [id number] Author: Delma CabreraRn) DEBBIE Garsia Service: Critical [...] to obtain and sent specimen for c-diff.. [facility] Protein mass conc HNO ID: [id number] Author: Constantine CabreraRn) DEBBIE Potter Service: (none) Author Type: Registered Nurse Type: Nursing Progress Note Filed: 03/29/2018 2:58 AM Note Text: Nursing Progress Note Patient Name: Sarina Lovett Patient Location: [place] [address] [address]* Daily Note: 191: Received report from DEBBIE Nguyễn. 1999: Assessment complete, see flow sheet. VSS. 213: Nicardine held per MAR parameters. 0000: Reassessment complete, see flow sheet. VSS. 0230: Dr. Ferrari notified of pt's decreased UO. Order placed for 250 NS Bolus. Given per APR. This note was completed by: Constantine Potter RN [facility] PROGRESSon 03-29-2018 Protein mass conc HNO ID: [id number] Author: Kinsey Dumas MD Service: Hospital Medicine [...] Medicine March 29, 2018 ? HOSPITAL MEDICINE [facility] PROGRESS NOTE NAME: Sarina Lovett SERVICE [...] home, last A1c 9.3% in 08/2016 at [facility]. Repeat A1c on admission 6.0%. - SSI1 [...] MD Family Medicine PGY2 March 29, 2018 [facility] ALLIED HEALTHon 03-28-2018 ALLIED HEALTH HNO ID: [id number] Author: Amanda Retana (Rt) Service: Radiology Author Type: Wholesaler Type: Allied Health Filed: 03/28/2018 10:25 AM [...] RT Lainey March 28, 2018 10:24 AM [facility] Basic Metabolic Panlon 03-28 Anion gap molar conc 25 mmol/L High 9-18 [facility] Comment on above: Performed By: #### B DEION MG1 ####[facility] [place], [place] [phone] Calcium mass conc 8.4 mg/dL Low 8.5-10.5 [facility] Comment on above: Performed By: #### B DEION, MG1 ####[facility] [place], [place] [phone] Chloride molar conc 96 mmol/L Low 98-110 [facility] Comment on above: Result Comment: Revi ewed Performed By: #### B MP, MG1 ####[place] [phone] CO2 molar conc 14 mmol/L Low 23-32 [facility] Comment on above: Performed By: #### B MP, MG1 ####[place] [phone] Creatinine mass conc 2.05 mg/dL High 0.70-1.40 [facility] Comment on above: Performed By: #### B DEION, MG1 ####[place] [phone] eGFR- Amer. 29 Low >60 [facility] Comment on above: Performed By: #### B DEION, MG1 ####[place] [phone] GFR/1.73 sq M predicted among non-blacks MDRD vol rate/area (S/P/Bld) 24 . Low >60 [facility] Comment on above: Performed By: #### B DEION, MG1 ####[place] [phone] Glucose mass conc 146 mg/dL High 65-100 [facility] Comment on above: Performed By: #### B DEION, MG1 ####[place] [phone] Potassium molar conc 4.1 mmol/L Normal 3.5-5.0 [facility] Comment on above: Performed By: #### B MP, MG1 ####[place] [phone] Sodium molar conc 135 mmol/L Normal 132-148 [facility] Comment on above: Performed By: #### B MP, MG1 ####[place] [phone] Urea nitrogen mass conc 41 mg/dL High 8-25 [facility] Comment on above: Performed By: #### B MP, MG1 ####[facility] [place], [place] [phone] CONSULT PROGokeny 03-28-2018 Protein mass conc HNO ID: [id number] Author: Deanna Yoo Service: Cardiovascular Medicine Author [...] bid 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 Agree with Dr. De Los Santos's progress note. Renal function is worsening likely due to contrast nephropathy. Give Lasix as needed when she is SOB. Renal US shows splenic masses - consider noncontrast CT. Lactate is normal. Dr Real Normal [facility] Lactateon 03-28-2018 Lactate molar conc 1.1 mmol/L Normal 0.4-2.0 [facility] Comment on above: Performed By: #### L ACT ####[facility] [place], [place] [phone] Magnesiumon 03-28-2018 Magnesium mass conc 1.7 mg/dL Normal 1.7-2.6 [facility] Comment on above: Performed By: #### B , MG1 ####[place] [id number] [place], [place] [phone] NURSING PROGon 03-28-2018 Protein mass conc HNO ID: [id number] Author: Delma CabreraRn) DEBBIE Garsia Service: Critical [...] at bedside.Patient continues to deny complaints. Normal [facility] Protein mass conc HNO ID: [id number] Author: Constantine CabreraRn) DEBBIE Potter Service: (none) Author Type: Registered Nurse Type: Nursing Progress Note Filed: 03/28/2018 7:47 AM Note Text: Nursing Progress Note Patient Name: Sarina Lovett Patient Location: [place] [address] [address]* Daily Note: 1914: Received report from DEBBIE Mclaughlin. 1999: Assessment complete, see flow sheet. Pt presenting with lower diastolic pressures but with MAP WNL. All other VSS. 2129: Pt presenting with increasing SOB at rest and upon exertion and toileting. Orders for CPAP and Browning Catheter placed by [facility] Hospitalist. 2199: [place] hospitalist notified of widening pulse pressures and decreased diastolic preesure. Orders placed for ECHO to be completed. 0000: Assessment complete, see flow sheet. 0400: Assessment complete, see flow sheet. 0530: Removed pt CPAP per [facility] hospitalist permission. Pt placed on 6L NC. Pt SpO2 > 92% 0600: Pt placed on 4L NC. Pt SpO2 > 92% 0630: Pt placed on 2L NC. Pt SpO2 > 92%. 0715: Report given to DEBBIE Nguyễn This note was completed by: Constantine Potter RN [facility] PROGRESSon 03-28-2018 Protein mass conc HNO ID: [id number] Author: Kinsey Dumas MD Service: Hospital Medicine [...] Hospital Medicine March 28, 2018 HOSPITAL MEDICINE [facility] PROGRESS NOTE NAME: Sarina Lovett SERVICE [...] home, last A1c 9.3% in 08/2016 at [facility]. Repeat A1c on admission 6.0%. - SSI1 [...] aspirin; IPCs Dispo - continue care in [facility] SUBJECTIVE INTERVAL HPI: Mrs. Lovett feels okay [...] MD Family Medicine PGY2 March 28, 2018 [facility] XR CHEST 1V FRONTAL PORTon 0 03-28-2018 [...] bilateral alveolar infiltrates without appreciable interval change Turkey Farmer: PSCB Transcribe Date/Time: Mar 28 2018 10:55A Dictated by : EULALIO WILLIAM MD This examination was interpreted and the report reviewed and electronically signed by: EULALIO WILLIAM MD on Mar 28 2018 10:57AM EST [id number] [facility] ALLIED HEALTHon 03-27-2018 ALLIED HEALTH HNO ID: [id number] Author: Amanda Angel (Rt) Service: Radiology Author Type: Wholesaler Type: Allied Health Filed: 03/27/2018 6:29 PM [...] Venegas RT March 27, 2018 6:29 PM [facility] Arterial Blood Gas (FOR WEST USE ONLY)on 03-27-2018 Base Excess NEG 10 Normal [facility] Comment on above: Result Comment: -3 t o 3 Performed By: #### A BGR ####[address] CO2 molar conc 16 mmol/L Low 22.0-28.0 [facility] Comment on above: Performed By: #### A BGR ####[place] [address] Device Nasal Cannula [facility] Comment on above: Performed By: #### A BGR ####[place] [address] Drawsite Left Radial + [facility] Comment on above: Performed By: #### A BGR ####[place] [address] HCO3 molar conc (Bld) 15 mmol/L Low 22-26 [facility] Comment on above: Performed By: #### A BGR ####[address] O2 Administered 45.0 [facility] Comment on above: Performed By: #### A BGR ####[place] [phone] Oxygen ppres (Bld) 68 mm Hg Low 80-100 [facility] Comment on above: Performed By: #### A BGR ####[place] [phone] Oxygen ppres (Bld) 92 % Normal 90-98 [facility] Comment on above: Performed By: #### A BGR ####[place] [phone] pCO2 33 mm Hg Low 35-48 [facility] Comment on above: Performed By: #### A BGR ####[place] [phone] pH (Bld) 7.29 [pH] Low 7.35-7.45 [facility] Comment on above: Performed By: #### A BGR ####[place] [phone] Basic Metabolic Panlon 03-27 Anion gap molar conc 17 mmol/L Normal 9-18 [facility] Comment on above: Performed By: #### P TT, NTBNP, HSTNT, CBCDIF, PT, CKCKMB, CMP #### [place] [address] Calcium mass conc 8.6 mg/dL Normal 8.5-10.5 [facility] Comment on above: Performed By: #### P TT, NTBNP, HSTNT, CBCDIF, PT, CKCKMB, CMP #### [place] [address] Chloride molar conc 104 mmol/L Normal 98-110 [facility] Comment on above: Performed By: #### P TT, NTBNP, HSTNT, CBCDIF, PT, CKCKMB, CMP #### [place] [address] CO2 molar conc 15 mmol/L Low 23-32 [facility] Comment on above: Performed By: #### P TT, NTBNP, HSTNT, CBCDIF, PT, CKCKMB, CMP #### [place] [phone] Creatinine mass conc 1.79 mg/dL High 0.70-1.40 [facility] Comment on above: Performed By: #### P TT, NTBNP, HSTNT, CBCDIF, PT, CKCKMB, CMP #### [place] [phone] eGFR- Amer. 34 Low >60 [facility] Comment on above: Performed By: #### P TT, NTBNP, HSTNT, CBCDIF, PT, CKCKMB, CMP #### [place] [phone] GFR/1.73 sq M predicted among non-blacks MDRD vol rate/area (S/P/Bld) 28 . Low >60 [facility] Comment on above: Performed By: #### P TT, NTBNP, HSTNT, CBCDIF, PT, CKCKMB, CMP #### [place] [phone] Glucose mass conc 127 mg/dL High 65-100 [facility] Comment on above: Performed By: #### P TT, NTBNP, HSTNT, CBCDIF, PT, CKCKMB, CMP #### [place] [phone] Potassium molar conc 5.6 mmol/L High 3.5-5.0 [facility] Comment on above: Result Comment: Revi ewed Performed By: #### P TT, NTBNP, HSTNT, CBCDIF, PT, CKCKMB, CMP #### [place] [phone] Sodium molar conc 136 mmol/L Normal 132-148 [facility] Comment on above: Performed By: #### P TT, NTBNP, HSTNT, CBCDIF, PT, CKCKMB, CMP #### [place] [phone] Urea nitrogen mass conc 37 mg/dL High 8-25 [facility] Comment on above: Performed By: #### P TT, NTBNP, HSTNT, CBCDIF, PT, CKCKMB, CMP #### [place] [phone] CASE MGT INIT CARROLLon 2018 CASE MGT INJOSE F HODGES HNO ID: [id number] Author: Yoon (Rn) DEBBIE Marshall Service: Case [...] To improve my functional status Health Insurance: [employer] Health Issues Impacting Discharge Plan: Chronic DM,HTN Last Admission Date: Previous admit date: 02/27/2015 Is this Within the Past 30 days? No Advance Directive: Current Advance Directive: None Hematology Technologist Attempted to Assist with AD Completion: Yes [...] None Has the Patient Been in a Senior Living Facility in the Past 30 days? 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 Met with pt at bedside, pt states she is independent , drives and lives with her , B/B is on the same floor, pt denies any DME, plan for home with no skilled needs. SIGNATURE: Yoon Marshall RN,BSN PATIENT NAME: Sarina Lovett DATE: March 27, 2018 TIME: 12:06 PM PAGER/CONTACT #: [phone] Normal [facility] CBC and Differentialon 03-27 Abs Baso <0.03 Normal <0.11 [facility] Comment on above: Performed By: #### P TT, NTBNP, HSTNT, CBCDIF, PT, CKCKMB, CMP #### [place] [phone] Abs [place] 0.60 k/uL Normal <0.87 [facility] Comment on above: Performed By: #### P TT, NTBNP, HSTNT, CBCDIF, PT, CKCKMB, CMP #### [place] [phone] Abs Neut 9.61 k/uL High 1.45-7.50 [facility] Comment on above: Performed By: #### P TT, NTBNP, HSTNT, CBCDIF, PT, CKCKMB, CMP #### [place] [phone] Basophils/100 WBC (Bld) 0.2 % Normal [facility] Comment on above: Performed By: #### P TT, NTBNP, HSTNT, CBCDIF, PT, CKCKMB, CMP #### [place] [address] DTYPE Auto Diff Normal [facility] Comment on above: Performed By: #### P TT, NTBNP, HSTNT, CBCDIF, PT, CKCKMB, CMP #### [place] [address] Eosinophils #/vol (Bld) 0.05 10*3/uL Normal <0.46 [facility] Comment on above: Performed By: #### P TT, NTBNP, HSTNT, CBCDIF, PT, CKCKMB, CMP #### [place] [address] Eosinophils/100 WBC (Bld) 0.5 % Normal [facility] Comment on above: Performed By: #### P TT, NTBNP, HSTNT, CBCDIF, PT, CKCKMB, CMP #### [place] [address] Erythrocyte distribution width Ratio (RBC) 13.8 % Normal 11.5-15.0 [facility] Comment on above: Performed By: #### P TT, NTBNP, HSTNT, CBCDIF, PT, CKCKMB, CMP #### [place] [address] Hematocrit Volume Fraction (Bld) 29.2 % Low 36.0-46.0 [facility] Comment on above: Performed By: #### P TT, NTBNP, HSTNT, CBCDIF, PT, CKCKMB, CMP #### [place] [address] Hemoglobin mass conc (Bld) 9.3 g/dL Low 11.5-15.5 [facility] Comment on above: Performed By: #### P TT, NTBNP, HSTNT, CBCDIF, PT, CKCKMB, CMP #### [place] [phone] Lymphocytes #/vol (Bld) 0.69 10*3/uL Low 1.00-4.00 [facility] Comment on above: Performed By: #### P TT, NTBNP, HSTNT, CBCDIF, PT, CKCKMB, CMP #### [address] Lymphocytes/100 WBC (Bld) 6.3 % Normal [facility] Comment on above: Performed By: #### P TT, NTBNP, HSTNT, CBCDIF, PT, CKCKMB, CMP #### [place] [phone] MCH Entitic mass (RBC) 28.6 pG Normal 26.0-34.0 [facility] Comment on above: Performed By: #### P TT, NTBNP, HSTNT, CBCDIF, PT, CKCKMB, CMP #### [place] [phone] MCHC mass conc (RBC) 31.8 g/dL Normal 30.5-36.0 [facility] Comment on above: Performed By: #### P TT, NTBNP, HSTNT, CBCDIF, PT, CKCKMB, CMP #### [place] [phone] MCV Entitic volume (RBC) 89.8 fL Normal 80.0-100.0 [facility] Comment on above: Performed By: #### P TT, NTBNP, HSTNT, CBCDIF, PT, CKCKMB, CMP #### [place] [phone] Monocytes/100 WBC (Bld) 5.5 % Normal [facility] Comment on above: Performed By: #### P TT, NTBNP, HSTNT, CBCDIF, PT, CKCKMB, CMP #### [place] [phone] Neutrophils/100 WBC (Bld) 87.5 % Normal [facility] Comment on above: Performed By: #### P TT, NTBNP, HSTNT, CBCDIF, PT, CKCKMB, CMP #### [place] [phone] Platelet mean volume Entitic volume (Bld) 10.4 fL Normal 9.0-12.7 [facility] Comment on above: Performed By: #### P TT, NTBNP, HSTNT, CBCDIF, PT, CKCKMB, CMP #### [place] [phone] Platelets #/vol (Bld) 141 10*3/uL Low 150-400 [facility] Comment on above: Performed By: #### P TT, NTBNP, HSTNT, CBCDIF, PT, CKCKMB, CMP #### [phone] RBC #/vol (Bld) 3.25 10*6/uL Low 3.90-5.20 [facility] Comment on above: Performed By: #### P TT, NTBNP, HSTNT, CBCDIF, PT, CKCKMB, CMP #### [place] [phone] WBC #/vol (Bld) 10.97 10*3/uL Normal 3.70-11.00 [facility] Comment on above: Performed By: #### P TT, NTBNP, HSTNT, CBCDIF, PT, CKCKMB, CMP #### [phone] CK, Total and CKMBon 019 CK enzyme act/vol 1014 U/L High 30-220 [facility] Comment on above: Performed By: #### P TT, NTBNP, HSTNT, CBCDIF, PT, CKCKMB, CMP #### [place] [phone] CK MB % 11.4 % High 0.0-4.0 [facility] Comment on above: Result Comment: Call ed to and read back by: DEBBIE PRO [facility] 03/27/18 0525 ROBB Performed By: #### P TT, NTBNP, HSTNT, CBCDIF, PT, CKCKMB, CMP #### [facility] [address] [place] [address] MB 115.9 ng/mL High 0.0-8.8 [facility] Comment on above: Performed By: #### P TT, NTBNP, HSTNT, CBCDIF, PT, CKCKMB, CMP #### [facility] [address] [place] [address] CONSULT PROGon 03-27-2018 Protein mass conc HNO ID: [id number] Author: Marito Real Service: Hypertension AND Nephrology [...] Date 03/27/18 07 - 03/28/18 0659 Shift [id number] [phone] 1146-0660 24 Hour Total I N T A [...] March 27, 2018 TIME: 3:31 PM Normal [facility] Protein mass conc HNO ID: [id number] Author: Alicia Miller Service: Psychiatry Author Type: [...] her former therapist Dr. Melody Montero on [facility] in [place]. Supportive therapy provided. She declines phone call to her for collateral info. Will sign off, please reconsult psychiatry should further acute psychiatric issues arise during this admission. SUBJECTIVE: Ms. Lovett is sitting propped up in bed, watching the [employer] Right. Reviews most recent stressors, including ongoing (chronic) strained relationship with 3 of her 5 children. Maintains good relationship with son in [place] and daughter in [place], [place]. Struggled more with mood since closest sister 1.5 years ago (noncompliant with meds). Says taking Sertraline (recently increased to 150 mg po daily) and Welbutrin XL for last 5-10 years. Tolerating medications without issues. Saw Dr. Melody Maurice in [place] for a couple of years and stopped [...] 05:35 PM TBILI 0.2 03/24/2018 05:35 PM [facility] Ferritinon 03-27-2018 Ferritin mass conc 116.8 ng/mL Normal 14.7-205.1 [facility] Comment on above: Performed By: #### P TT, NTBNP, HSTNT, CBCDIF, PT, CKCKMB, CMP #### [place] [phone] Iron and TIBCon 03-27-2018 Iron mass conc 40 ug/dL Normal 35-150 [facility] Comment on above: Performed By: #### P TT, NTBNP, HSTNT, CBCDIF, PT, CKCKMB, CMP #### [place] [phone] TIBC 279 ug/dL Normal 250-450 [facility] Comment on above: Performed By: #### P TT, NTBNP, HSTNT, CBCDIF, PT, CKCKMB, CMP #### [place] [phone] Transferrin Saturatn 14 % Low 20-55 [facility] Comment on above: Performed By: #### P TT, NTBNP, HSTNT, CBCDIF, PT, CKCKMB, CMP #### [place] [phone] Magnesiumon 03-27-2018 Magnesium mass conc 2.0 mg/dL Normal 1.7-2.6 [facility] Comment on above: Performed By: #### P TT, NTBNP, HSTNT, CBCDIF, PT, CKCKMB, CMP #### [place] [phone] NT Pro BNPon 03-27-2018 Protein mass conc 12743 pg/mL High <125 [facility] Comment on above: Performed By: #### N TBNP ####[phone] NURSING PROGon 03-27-2018 Protein mass conc HNO ID: [id number] Author: Patricia CabreraRn) Nicki, RN Service: Nursing Author Type: Registered Nurse Type: Nursing Progress Note Filed: 03/27/2018 6:11 AM Note Text: Nursing Progress Note Patient Name: Sarina Lovett Patient Location: [id number]/[facility]- 024* Daily Note: Nursing note for evening shift This note was completed by: Patricia Caceres RN 2670 report received and pt care assumed. Pt was admitted to [facility] on 03/24. Dx NSTEMI and HTN urgency and was placed on a NTG drip. PBNR >9000 and pt was plced on a heparin drip which is now off. Pt was taken to the labor expediter today with Dr. Haddad and had PCI [...] given/ ativan .25mg and Lasix iv Normal [facility] PLAN OF CAREon 03-27-2018 PLAN OF CARE HNO ID: [id number] Author: Ariela Martinez Service: Hospital Medicine Author [...] staff , Department of Hospital Medicine Clinical Complex Directorsequins spooler [facility] P:[id number] T:[phone] 5PM-8AM: Please contact me directly for questions related to patient care Normal [facility] PROGRESSon 03-27-2018 Protein mass conc HNO ID: [id number] Author: Joy Browne Service: Cardiovascular Disease Author Type: Physician Type: Progress Notes Filed: 03/27/2018 10:34 AM Note Text: Doing well No further chest pain Elevated ck due to distal embolization from the [place] graft to rca. Clinically stable Continue present treatment k is elevated Will recheck, could be hemolysis Normal [facility] Protein mass conc HNO ID: [id number] Author: Mame Bowers Service: Hospital Medicine Author Type: Physician Type: Progress Notes Filed: 03/27/2018 1:51 PM Note Text: HOSPITAL MEDICINE [facility] PROGRESS NOTE NAME: Sarina Lovett SERVICE [...] home, last A1c 9.3% in 08/2016 at [facility]. Repeat A1c on admission 6.0%. - SSI1 [...] aspirin; IPCs Dispo - continue care in [facility] SUBJECTIVE INTERVAL HPI: Ms. Lovett feels well [...] MD Staff, Hospital Medicine March 27, 2018 [facility] PT EDon 03-27-2018 PT ED HNO ID: [id number] Author: Renetta (Rn) DEBBIE Ball Service: Cardiac Rehab Author Type: Registered Nurse Type: Patient Education Filed: 03/27/2018 2:57 PM Note Text: CARDIAC REHABILITATION PATIENT EDUCATION PROGRESS NOTE Name: Sarina Lovett Date of Service: 03/27/2018 Time of Service: 2:53 PM ASSESSMENT: Risk Factors Identified: Diabetic: Insulin Dependent Hyperlipidemia Hypertension Smoker: # of packs per day: 1. Total Years of Smokin. 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 RECOMMENDATIONS: Patient interested in Phase II Outpatient Cardiac Rehab: No DIAGNOSIS: Acute Myocardial Infarction/Acute Coronary Syndrome: non [facility] AMI/ACS Teaching Points: -Basic Anatomy and Disease [...] Date: March 27, 2018 Time: 2:53 PM [facility] Phosphoruson 03-27-2018 Phosphate mass conc 4.7 mg/dL High 2.5-4.5 [facility] Comment on above: Performed By: #### P TT, NTBNP, HSTNT, CBCDIF, PT, CKCKMB, CMP #### [place] [phone] Potassiumon 03-27-2018 Potassium molar conc 5.0 mmol/L Normal 3.5-5.0 [facility] Comment on above: Performed By: #### K 1 ####[place] [phone] Potassium molar conc 5.8 mmol/L High 3.5-5.0 [facility] Comment on above: Performed By: #### P TT, NTBNP, HSTNT, CBCDIF, PT, CKCKMB, CMP #### [place] [phone] Protein/Creatinine Ratioon 0 03-27-2018 Creatinine,Urine,Ran 33.9 mg/dL Normal 20-300 [facility] Comment on above: Performed By: #### P TT, NTBNP, HSTNT, CBCDIF, PT, CKCKMB, CMP #### [place] [phone] Protein mass conc (U) 6 mg/dL Normal 0-20 [facility] Comment on above: Performed By: #### P TT, NTBNP, HSTNT, CBCDIF, PT, CKCKMB, CMP #### [place] [phone] Protein/Creatinine Ratio 0.2 High <0.2 [facility] Comment on above: Performed By: #### P TT, NTBNP, HSTNT, CBCDIF, PT, CKCKMB, CMP #### [place] [phone] THERAPY NTon 03-27-2018 THERAPY NT HNO ID: [id number] Author: Silvana (Cashiers Supervisor) LALO Black Service: Respiratory Therapy Author Type: Respiratory Therapist Type: Therapy (PT/OT/Speech/Resp) Filed: 03/27/2018 7:18 PM Note Text: ABG drawn from left radial, Alci test yes; pressure held, bleeding stopped. Normal [facility] Troponin Ton 03-27-2018 Troponin T.cardiac mass conc 2.160 ng/mL High 0.000-0.029 [facility] Comment on above: Result Comment: Call ed to and read back by: DEBBIE PRO [facility] 03/27/18 0525 ROBB Performed By: #### P TT, NTBNP, HSTNT, CBCDIF, PT, CKCKMB, CMP #### [facility] [address] [place] [address] XR CHEST 1V FRONTALon 2018 XR CHEST [...] No pneumothorax. Cardiomediastinal silhouette: Stable cardiomediastinal silhouette. Turkey Farmer: PSCB Transcribe Date/Time: Mar 27 2018 6:50P Dictated by : JOHAN MUNOZ MD This examination was interpreted and the report reviewed and electronically signed by: JOHAN MUNOZ MD on Mar 27 2018 6:52PM EST [id number] Normal [facility] XR CHEST 1V FRONTAL * * [...] atelectasis right lung base 2. Cardiac megaly Turkey Farmer: PSCB Transcribe Date/Time: Mar 27 2018 5:27A Dictated by : YADIRA FUNEZ MD This examination was interpreted and the report reviewed and electronically signed by: YADIRA FUNEZ MD on Mar 27 2018 5:37AM EST [id number] Normal [facility] Basic Metabolic Panlon 03-26 Anion gap molar conc 12 mmol/L Normal 9-18 [facility] Comment on above: Performed By: #### P TT, NTBNP, HSTNT, CBCDIF, PT, CKCKMB, CMP #### [place] [phone] Calcium mass conc 9.0 mg/dL Normal 8.5-10.5 [facility] Comment on above: Performed By: #### P TT, NTBNP, HSTNT, CBCDIF, PT, CKCKMB, CMP #### [place] [phone] Chloride molar conc 104 mmol/L Normal 98-110 [facility] Comment on above: Performed By: #### P TT, NTBNP, HSTNT, CBCDIF, PT, CKCKMB, CMP #### [place] [phone] CO2 molar conc 19 mmol/L Low 23-32 [facility] Comment on above: Performed By: #### P TT, NTBNP, HSTNT, CBCDIF, PT, CKCKMB, CMP #### [place] [phone] Creatinine mass conc 1.63 mg/dL High 0.70-1.40 [facility] Comment on above: Performed By: #### P TT, NTBNP, HSTNT, CBCDIF, PT, CKCKMB, CMP #### [place] [phone] eGFR- Amer. 38 Low >60 [facility] Comment on above: Performed By: #### P TT, NTBNP, HSTNT, CBCDIF, PT, CKCKMB, CMP #### [place] [phone] GFR/1.73 sq M predicted among non-blacks MDRD vol rate/area (S/P/Bld) 31 . Low >60 [facility] Comment on above: Performed By: #### P TT, NTBNP, HSTNT, CBCDIF, PT, CKCKMB, CMP #### [place] [phone] Glucose mass conc 113 mg/dL High 65-100 [facility] Comment on above: Performed By: #### P TT, NTBNP, HSTNT, CBCDIF, PT, CKCKMB, CMP #### [address] Potassium molar conc 4.6 mmol/L Normal 3.5-5.0 [facility] Comment on above: Performed By: #### P TT, NTBNP, HSTNT, CBCDIF, PT, CKCKMB, CMP #### [place] [phone] Sodium molar conc 135 mmol/L Normal 132-148 [facility] Comment on above: Performed By: #### P TT, NTBNP, HSTNT, CBCDIF, PT, CKCKMB, CMP #### [address] Urea nitrogen mass conc 32 mg/dL High 8-25 [facility] Comment on above: Performed By: #### P TT, NTBNP, HSTNT, CBCDIF, PT, CKCKMB, CMP #### [place] [phone] CBCon 03-26-2018 Erythrocyte distribution width Ratio (RBC) 13.5 % Normal 11.5-15.0 [facility] Comment on above: Performed By: #### P TT, NTBNP, HSTNT, CBCDIF, PT, CKCKMB, CMP #### [place] [address] Hematocrit Volume Fraction (Bld) 28.1 % Low 36.0-46.0 [facility] Comment on above: Performed By: #### P TT, NTBNP, HSTNT, CBCDIF, PT, CKCKMB, CMP #### [place] [address] Hemoglobin mass conc (Bld) 9.3 g/dL Low 11.5-15.5 [facility] Comment on above: Performed By: #### P TT, NTBNP, HSTNT, CBCDIF, PT, CKCKMB, CMP #### [place] [address] MCH Entitic mass (RBC) 28.9 pG Normal 26.0-34.0 [facility] Comment on above: Performed By: #### P TT, NTBNP, HSTNT, CBCDIF, PT, CKCKMB, CMP #### [place] [address] MCHC mass conc (RBC) 33.1 g/dL Normal 30.5-36.0 [facility] Comment on above: Performed By: #### P TT, NTBNP, HSTNT, CBCDIF, PT, CKCKMB, CMP #### [place] [address] MCV Entitic volume (RBC) 87.3 fL Normal 80.0-100.0 [facility] Comment on above: Performed By: #### P TT, NTBNP, HSTNT, CBCDIF, PT, CKCKMB, CMP #### [place] [address] Platelet mean volume Entitic volume (Bld) 10.1 fL Normal 9.0-12.7 [facility] Comment on above: Performed By: #### P TT, NTBNP, HSTNT, CBCDIF, PT, CKCKMB, CMP #### [place] [phone] Platelets #/vol (Bld) 145 10*3/uL Low 150-400 [facility] Comment on above: Performed By: #### P TT, NTBNP, HSTNT, CBCDIF, PT, CKCKMB, CMP #### [place] [phone] RBC #/vol (Bld) 3.22 10*6/uL Low 3.90-5.20 [facility] Comment on above: Performed By: #### P TT, NTBNP, HSTNT, CBCDIF, PT, CKCKMB, CMP #### [place] [phone] WBC #/vol (Bld) 4.28 10*3/uL Normal 3.70-11.00 [facility] Comment on above: Performed By: #### P TT, NTBNP, HSTNT, CBCDIF, PT, CKCKMB, CMP #### [place] [phone] CONSULTon 03-26-2018 CONSULT HNO ID: [id number] Author: Marito Real Service: Hypertension AND Nephrology Author Type: Physician Type: Consults Filed: 04/18/2018 3:55 PM Note Text: [facility] - Consultation SARINA LOVETT : 1945 AGE: 73 SEX: F CSN: [id number] [place] [id number] ATTENDING PHYSICIAN: Larisa Dougherty M.D. DATE OF [...] been found to have a non-ST- elevation [place]. She is going to be having a [...] kidney disease and has never seen a hockey player before. Her creatinine is 1.6 today, and [...] ferrous sulfate 325 mg b.i.d., vitamin D 79667 units weekly, Plavix 75 mg daily, Coreg [...] is retired. 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 She smoked for 50 years and [...] questions or concerns. Marito Real M.D. Nephrology SB:[id number] [facility] CONSULT HNO ID: [id number] Author: Marito Real Service: Hypertension AND Nephrology Author Type: Physician Type: Consults Filed: 03/26/2018 10:17 AM Note Text: Dictation number: [id number] JULIETA on CKD 3 Check spot protein/Cr [...] plans to quit smoking after d/c Normal [facility] Hemoglobin A1con 03-26-2018 Hemoglobin A1c/Hemoglobin.total mass fraction (Bld) 6.0 % High 4.3-5.6 [facility] Comment on above: Result Comment: Amer ican Diabetes Association guidelines indicate that patients with HgbA1c in the range 5.7-6.4% are at increased risk for development of diabetes, and intervention by lifestyle modification may be beneficial. HgbA1c greater or equal to 6.5% is considered diagnostic of diabetes. Performed By: #### P TT, NTBNP, HSTNT, CBCDIF, PT, CKCKMB, CMP #### [facility] [address] [place] [phone] Hemoglobin A1c/Hemoglobin.total mass fraction (Bld) 126 mg/dL Normal [facility] Comment on above: Result Comment: eAG: (Estimated average glucose) is a calculated value from HgbA1c and is surgical sales representative of the average blood glucose level in the last 2-3 month period. Performed By: #### P TT, NTBNP, HSTNT, CBCDIF, PT, CKCKMB, CMP #### [place] [id number] [place] [phone] Lipid Panel, [place] 019 Cholesterol in HDL mass conc 33 mg/dL Low >39 [facility] Comment on above: Result Comment: 40-5 9 mg/dL, Acceptable >59 mg/dL, High: Negative risk factor for coronary heart disease <40 mg/dL, Low: Positive risk factor for coronary heart disease Performed By: #### P TT, NTBNP, HSTNT, CBCDIF, PT, CKCKMB, CMP #### [place] [phone] Cholesterol in LDL mass conc 221 mg/dL High <100 [facility] Comment on above: Result Comment: <100 mg/dL, Optimal 100-129 mg/dL, Near optimal/above optimal 130-159 mg/dL, Borderline high 160-189 mg/dL, High >189 mg/dL, Very high Secondary prevention optimal LDL Cholesterol levels are recommended to be < 70 mg/dL Performed By: #### P TT, NTBNP, HSTNT, CBCDIF, PT, CKCKMB, CMP #### [place] [phone] Cholesterol mass conc 314 mg/dL High <200 [facility] Comment on above: Result Comment: <200 mg/dL, Desirable 200-239 mg/dL, Borderline high >239 mg/dL, High Performed By: #### P TT, NTBNP, HSTNT, CBCDIF, PT, CKCKMB, CMP #### [phone] LDL:HDL Ratio 6.70 High <2.54 [facility] Comment on above: Result Comment: Refe rence: 1. National Cholesterol Education Program ATP III Guideline At-A-Glance Quick Desk Reference: National Heart, Lung, and Blood Davey. National Institutes of Health. 2001: NIH Publication No. 01-3305. 2. An International Atherosclerosis Society position paper: global recommendations for the management of dyslipidemia: executive summary, Atherosclerosis. 2014: 232(2):410-413. Performed By: #### P TT, NTBNP, HSTNT, CBCDIF, PT, CKCKMB, CMP #### [phone] Non HDL Cholesterol 281 mg/dL High <130 [facility] Comment on above: Result Comment: <130 mg/dL, Optimal 130-159 mg/dL, Near optimal/above optimal 160-189 mg/dL, Borderline high 190-219 mg/dL, High >219 mg/dL, Very high Secondary prevention optimal non HDL Cholesterol levels are recommended to be < 100 mg/dL Performed By: #### P TT, NTBNP, HSTNT, CBCDIF, PT, CKCKMB, CMP #### [place] [address] TC:HDL Ratio 9.52 High <5.10 [facility] Comment on above: Performed By: #### P TT, NTBNP, HSTNT, CBCDIF, PT, CKCKMB, CMP #### [place] [address] Triglyceride mass conc 301 mg/dL High <150 [facility] Comment on above: Result Comment: <150 mg/dL, Normal 150-199 mg/dL, Borderline high 200-499 mg/dL, High >499 mg/dL, Very high Performed By: #### P TT, NTBNP, HSTNT, CBCDIF, PT, CKCKMB, CMP #### [place] [address] VLDL Cholesterol 60 mg/dL High <30 [facility] Comment on above: Performed By: #### P TT, NTBNP, HSTNT, CBCDIF, PT, CKCKMB, CMP #### [place] [address] NURSING PROGon 03-26-2018 Protein mass conc HNO ID: [id number] Author: Shelley (Rn) DEBBIE Aponte Service: (none) Author Type: Registered Nurse Type: Nursing Progress Note Filed: 03/26/2018 10:24 PM Note Text: Nursing Progress Note Patient Name: Sarina Lovett Patient Location: [id number]/[facility]- 024* Daily Note: 1899: Report received from previous shift RN 1999: Assessment complete, see flow sheets for details. Pt AANDO x3, denies pain, VSS. 2229: Report given to oncoming RN This note was completed by: Shelley Aponte RN [facility] Protein mass conc HNO ID: [id number] Author: Geeta (Rn) DEBBIE Woods Service: (none) Author Type: Registered Nurse Type: Nursing Progress Note Filed: 03/26/2018 7:46 PM Note Text: Nursing Progress Note Patient Name: Sarina Lovett Patient Location: [id number]/[facility] 024* Daily Note: 0730 Bedside report received [...] as noted. 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 1424 Pt back to [place] unit. 1430 [...] note was completed by: Geeta Woods RN [facility] OPERATIVE NOon 03-26-2018 OPERATIVE NO HNO ID: [id number] Author: Joy Browne Service: Cardiovascular Disease Author Type: Physician Type: Operative Report Filed: 03/26/2018 2:21 PM Note Text: HEEL FORMER PROCEDURE REPORT SERVICE DATE: 03/26/2018 SERVICE TIME: CUT LACE MACHINE OPERATOR: Joy Browne MD ATTENDING: Larisa Dougherty PRIMARY CARE PHYSICIAN: Sacha Ford MD REFERRING PROVIDER: ANGOLAN STUDY OF HEALTH and AGING SCALE:2=Well CARDIOVASCULAR INSTABILITY:No PRE-PROCEDURE DIAGNOSIS: 1. Acute Coronary Syndrome, more than 24 hours 2. Angina, Unstable POST PROCEDURE DIAGNOSIS: 1. [place] Coronary Artery Disease in the LAD (CUSTOMER AGENT), RCA (CUSTOMER AGENT) and LCX (CUSTOMER AGENT) 2. Successful PCI of SVG to RCA [...] The patient was taken to the cardiac clay processing labourer where the entry site was prepped and [...] Dual Antiplatelet Therapy (DAPT) for DAVID Stent residential. SIGNATURE: Joy Browne MD PATIENT NAME: Sarina Lovett DATE: March 26, 2018 TIME: 2:15 PM Normal [facility] PLAN OF CAREon 03-26-2018 PLAN OF CARE HNO ID: [id number] Author: Ariela Martinez Service: Hospital Medicine Author [...] cardiac enzymes elevated - discussed with intervention division leader - this is related to intervention - no concern for reinfarction Update: CXR with worsening pulmonary congestion Plan: - lasix 60mg given JULIETA - given CXR findings + increased o2 requirements this will also help reduced K level -Incentive spirometry for atelectasis Appreciate excellent nursing care Ariela Bautista MD, MSc Associate staff , Department of Hospital Medicine Clinical Complex Directorsequins spooler [facility] P:[id number] T:[phone] 5PM-8AM: Please contact me directly for questions related to patient care [facility] PLAN OF CARE HNO ID: [id number] Author: Larisa Dougherty Service: Hospital Medicine Author Type: Physician Type: Plan of Care Filed: 03/26/2018 5:09 PM Note Text: Got cardene during cath, BP dropped to 110 when back in [facility]/pale/nauseated Started NS bolus/infusion and she is much better BP meds reduced Larisa Dougherty MD [facility] PROGRESSon 03-26-2018 Protein mass conc HNO ID: [id number] Author: Larisa Dougherty Service: Hospital Medicine Author [...] Patient and RN SIGNATURE: Larisa Dougherty MD [facility] PTT,Anticoag Therapyon 03-26 aPTT Coag time (Bld) 53.5 s High 23.0-32.4 [facility] Comment on above: Result Comment: Unfr [...] laboratory APTT reagent in use throughout the [facility]. Performed By: #### P TT, NTBNP, HSTNT, CBCDIF, PT, CKCKMB, CMP #### [place] [id number] [place] [address] Type and Screenon 03-26-2018 ABO/RH(D) Positive [facility] Comment on above: Performed By: #### P TT, NTBNP, HSTNT, CBCDIF, PT, CKCKMB, CMP #### [place] [address] US KIDNEY/BLADDERon 03-26-19 19 US KIDNEY/BLADDER * * *Final Report* * * DATE OF EXAM: Mar 26 2018 7:28PM [facility] 1055 - US KIDNEY/BLADDER / PROCEDURE REASON: [...] Dr. Real on 03/28/2018 at 1600 hours. Turkey Farmer: PSCB Transcribe Date/Time: Mar 28 2018 3:45P Dictated by : ELEONORA HIGGINS MD This examination was interpreted and the report reviewed and electronically signed by: ELEONORA HIGGINS MD on Mar 28 2018 4:24PM EST [id number] [facility] ALLIED HEALTHon 03-25-2018 ALLIED HEALTH HNO ID: [id number] Author: Amanda Angel (Rt) Service: Radiology Author Type: Wholesaler Type: Allied Health Filed: 03/25/2018 8:26 PM [...] Stanley March 25, 2018 8:26 PM Normal [facility] Basic Metabolic Panlon 03-25 Anion gap molar conc 16 mmol/L Normal 9-18 [facility] Comment on above: Performed By: #### P TT, NTBNP, HSTNT, CBCDIF, PT, CKCKMB, CMP #### [place] [address] Calcium mass conc 8.7 mg/dL Normal 8.5-10.5 [facility] Comment on above: Result Comment: Revi ewed Performed By: #### P TT, NTBNP, HSTNT, CBCDIF, PT, CKCKMB, CMP #### [place] [address] Chloride molar conc 101 mmol/L Normal 98-110 [facility] Comment on above: Performed By: #### P TT, NTBNP, HSTNT, CBCDIF, PT, CKCKMB, CMP #### [place] [address] CO2 molar conc 18 mmol/L Low 23-32 [facility] Comment on above: Performed By: #### P TT, NTBNP, HSTNT, CBCDIF, PT, CKCKMB, CMP #### [place] [address] Creatinine mass conc 1.42 mg/dL High 0.70-1.40 [facility] Comment on above: Performed By: #### P TT, NTBNP, HSTNT, CBCDIF, PT, CKCKMB, CMP #### [place] [phone] eGFR- Amer. 44 Low >60 [facility] Comment on above: Performed By: #### P TT, NTBNP, HSTNT, CBCDIF, PT, CKCKMB, CMP #### [place] [phone] GFR/1.73 sq M predicted among non-blacks MDRD vol rate/area (S/P/Bld) 36 . Low >60 [facility] Comment on above: Performed By: #### P TT, NTBNP, HSTNT, CBCDIF, PT, CKCKMB, CMP #### [place] [phone] Glucose mass conc 125 mg/dL High 65-100 [facility] Comment on above: Performed By: #### P TT, NTBNP, HSTNT, CBCDIF, PT, CKCKMB, CMP #### [place] [phone] Potassium molar conc 5.0 mmol/L Normal 3.5-5.0 [facility] Comment on above: Performed By: #### P TT, NTBNP, HSTNT, CBCDIF, PT, CKCKMB, CMP #### [place] [phone] Sodium molar conc 135 mmol/L Normal 132-148 [facility] Comment on above: Performed By: #### P TT, NTBNP, HSTNT, CBCDIF, PT, CKCKMB, CMP #### [place] [phone] Urea nitrogen mass conc 30 mg/dL High 8-25 [facility] Comment on above: Performed By: #### P TT, NTBNP, HSTNT, CBCDIF, PT, CKCKMB, CMP #### [place] [phone] CBCon 03-25-2018 Erythrocyte distribution width Ratio (RBC) 13.6 % Normal 11.5-15.0 [facility] Comment on above: Performed By: #### P TT, NTBNP, HSTNT, CBCDIF, PT, CKCKMB, CMP #### [place] [address] Hematocrit Volume Fraction (Bld) 29.8 % Low 36.0-46.0 [facility] Comment on above: Performed By: #### P TT, NTBNP, HSTNT, CBCDIF, PT, CKCKMB, CMP #### [place] [address] Hemoglobin mass conc (Bld) 9.9 g/dL Low 11.5-15.5 [facility] Comment on above: Performed By: #### P TT, NTBNP, HSTNT, CBCDIF, PT, CKCKMB, CMP #### [place] [address] MCH Entitic mass (RBC) 28.8 pG Normal 26.0-34.0 [facility] Comment on above: Performed By: #### P TT, NTBNP, HSTNT, CBCDIF, PT, CKCKMB, CMP #### [place] [address] MCHC mass conc (RBC) 33.2 g/dL Normal 30.5-36.0 [facility] Comment on above: Performed By: #### P TT, NTBNP, HSTNT, CBCDIF, PT, CKCKMB, CMP #### [place] [address] MCV Entitic volume (RBC) 86.6 fL Normal 80.0-100.0 [facility] Comment on above: Performed By: #### P TT, NTBNP, HSTNT, CBCDIF, PT, CKCKMB, CMP #### [place] [address] Platelet mean volume Entitic volume (Bld) 10.2 fL Normal 9.0-12.7 [facility] Comment on above: Performed By: #### P TT, NTBNP, HSTNT, CBCDIF, PT, CKCKMB, CMP #### [place] [phone] Platelets #/vol (Bld) 157 10*3/uL Normal 150-400 [facility] Comment on above: Performed By: #### P TT, NTBNP, HSTNT, CBCDIF, PT, CKCKMB, CMP #### [place] [phone] RBC #/vol (Bld) 3.44 10*6/uL Low 3.90-5.20 [facility] Comment on above: Performed By: #### P TT, NTBNP, HSTNT, CBCDIF, PT, CKCKMB, CMP #### [phone] WBC #/vol (Bld) 6.46 10*3/uL Normal 3.70-11.00 [facility] Comment on above: Performed By: #### P TT, NTBNP, HSTNT, CBCDIF, PT, CKCKMB, CMP #### [phone] CK, Total and CKMBon 019 CK enzyme act/vol 29 U/L Low 30-220 [facility] Comment on above: Performed By: #### P TT, NTBNP, HSTNT, CBCDIF, PT, CKCKMB, CMP #### [place] [phone] CK MB % CK MB % not reported with CK <100 U/L. Normal 0.0-4.0 [facility] Comment on above: Performed By: #### P TT, NTBNP, HSTNT, CBCDIF, PT, CKCKMB, CMP #### [place] [phone] MB 2.9 ng/mL Normal 0.0-8.8 [facility] Comment on above: Performed By: #### P TT, NTBNP, HSTNT, CBCDIF, PT, CKCKMB, CMP #### [place] [phone] CK enzyme act/vol 31 U/L Normal 30-220 [facility] Comment on above: Performed By: #### P TT, NTBNP, HSTNT, CBCDIF, PT, CKCKMB, CMP #### [place] [phone] CK MB % CK MB % not reported with CK <100 U/L. Normal 0.0-4.0 [facility] Comment on above: Performed By: #### P TT, NTBNP, HSTNT, CBCDIF, PT, CKCKMB, CMP #### [place] [phone] MB 3.1 ng/mL Normal 0.0-8.8 [facility] Comment on above: Performed By: #### P TT, NTBNP, HSTNT, CBCDIF, PT, CKCKMB, CMP #### [address] CK enzyme act/vol 30 U/L Normal 30-220 [facility] Comment on above: Performed By: #### P TT, NTBNP, HSTNT, CBCDIF, PT, CKCKMB, CMP #### [place] [phone] CK MB % CK MB % not reported with CK <100 U/L. Normal 0.0-4.0 [facility] Comment on above: Performed By: #### P TT, NTBNP, HSTNT, CBCDIF, PT, CKCKMB, CMP #### [place] [phone] MB 2.8 ng/mL Normal 0.0-8.8 [facility] Comment on above: Performed By: #### P TT, NTBNP, HSTNT, CBCDIF, PT, CKCKMB, CMP #### [facility] [address] [place] [address] CONSULTon 03-25-2018 CONSULT HNO ID: [id number] Author: Ken Edwards Service: Psychiatry Author Type: [...] Therapist: Previously followed by Melody Montero Current Carbon Dioxide Operator: None Last Hospitalization: None Hx of Suicide Attempts: Never Previous Discontinued Psychiatric Med Trials: None PAST MEDICAL HISTORY Diagnosis Date - Acute myocardial infarction, unspecified site 11/28 s/p RCA stent, had stress Echo : told o.k. - Aortic valve disorders - Cancer (HCC) - Coronary atherosclerosis of unspecified type of vessel, [place] or graft Coronary Atherosclerosis - Diabetes (HCC) [...] 2018 TIME: 1:46 PM PAGER/CONTACT #: JUDSON [facility] CONSULT HNO ID: [id number] Author: Joy Browne Service: Cardiovascular Medicine Author [...] RCA: No Stenosis, there is 99% in [place] after the graft SVG Graft 2 to [...] Coronary atherosclerosis of unspecified type of vessel, [place] or graft Coronary Atherosclerosis - Diabetes (HCC) [...] in this patient's care. SIGNATURE: Deanna Yoo APRN.[facility] cardiology DATE: March 25, 2018 TIME: 10:21 AM [facility] Magnesiumon 03-25-2018 Magnesium mass conc 1.7 mg/dL Normal 1.7-2.6 [facility] Comment on above: Performed By: #### P TT, NTBNP, HSTNT, CBCDIF, PT, CKCKMB, CMP #### [facility] [address] [place] [address] NURSING PROGon 03-25-2018 Protein mass conc HNO ID: [id number] Author: Shira Payton) DEBBIE Carrillo Service: Nursing Author Type: Registered Nurse Type: Nursing Progress Note Filed: 03/25/2018 6:11 PM Note Text: Nursing Progress Note Patient Name: Sarina Lovett Patient Location: [place] [address] [address]* Daily Note: 0700 Report received from off-going [...] note was completed by: Shira Carrillo RN [facility] PROGRESSon 03-25-2018 Protein mass conc HNO ID: [id number] Author: Kinsey Dumas MD Service: Hospital Medicine [...] 35 min Larisa Dougherty MD HOSPITAL MEDICINE [facility] PROGRESS NOTE NAME: Sarina Lovett SERVICE [...] home, last A1c 9.3% in 08/2016 at [facility]. - SSI1 - recheck A1c Hypomagnesemia 1.7 on admission. Continue to monitor. - replete PRN VTE Prophylaxis - on heparin drip Dispo - continue care in [facility] SUBJECTIVE INTERVAL HPI: Ms. Lovett feels better [...] Family Medicine PGY2 March 25, 2018 Normal [facility] PTT,Anticoag Therapyon 03-25 aPTT Coag time (Bld) 53.2 s High 23.0-32.4 [facility] Comment on above: Result Comment: Unfr [...] laboratory APTT reagent in use throughout the [facility]. Performed By: #### P TT, NTBNP, HSTNT, CBCDIF, PT, CKCKMB, CMP #### [place] [phone] aPTT Coag time (Bld) 54.3 s High 23.0-32.4 [facility] Comment on above: Result Comment: Unfr [...] laboratory APTT reagent in use throughout the [facility]. Performed By: #### P TT, NTBNP, HSTNT, CBCDIF, PT, CKCKMB, CMP #### [place] [phone] aPTT Coag time (Bld) 40.5 s High 23.0-32.4 [facility] Comment on above: Result Comment: Unfr [...] laboratory APTT reagent in use throughout the [facility]. Performed By: #### P TT, NTBNP, HSTNT, CBCDIF, PT, CKCKMB, CMP #### [place] [address] Troponin Ton 03-25-2018 Troponin T.cardiac mass conc 0.055 ng/mL High 0.000-0.029 [facility] Comment on above: Result Comment: Urge nt value previously called 03/25/18 1108 BBlum Performed By: #### P TT, NTBNP, HSTNT, CBCDIF, PT, CKCKMB, CMP #### [place] [phone] Troponin T.cardiac mass conc 0.038 ng/mL High 0.000-0.029 [facility] Comment on above: Result Comment: Urge nt value previously called on 03/25/18 at [facility] Performed By: #### P TT, NTBNP, HSTNT, CBCDIF, PT, CKCKMB, CMP #### [place] [phone] Troponin T.cardiac mass conc 0.032 ng/mL High 0.000-0.029 [facility] Comment on above: Result Comment: Call ed to and read back by: Precious Alvarez RN [facility] 03/25/2018 0055 by Matthew Patricio. Performed By: #### P TT, NTBNP, HSTNT, CBCDIF, PT, CKCKMB, CMP #### [place] [phone] XR CHEST 1V FRONTAL PORTon 0 03-25-2018 [...] IMPRESSION: Cardiomegaly. No acute process is seen Turkey Farmer: JENNIFER Transcribe Date/Time: Mar 25 2018 8:26P Dictated by : CHASTITY SIMMONS MD This examination was interpreted and the report reviewed and electronically signed by: CHASTITY SIMMONS MD on Mar 25 2018 8:31PM EST [id number] [facility] ALLIED HEALTHon 03-24-2018 ALLIED HEALTH HNO ID: [id number] Author: Amanda Morris (Rt) Service: Radiology Author Type: Wholesaler Type: Allied Health Filed: 03/24/2018 6:16 PM [...] RT Arturo March 24, 2018 6:15 PM [facility] APTTon 03-24-2018 aPTT Coag time (Bld) 26.0 s Normal 23.0-32.4 [facility] Comment on above: Result Comment: Unfr [...] laboratory APTT reagent in use throughout the [facility]. Performed By: #### P TT, NTBNP, HSTNT, CBCDIF, PT, CKCKMB, CMP #### [phone] CBC and Differentialon 03-24 Abs Baso 0.05 k/uL Normal <0.11 [facility] Comment on above: Performed By: #### P TT, NTBNP, HSTNT, CBCDIF, PT, CKCKMB, CMP #### [place] [phone] Abs [place] 0.47 k/uL Normal <0.87 [facility] Comment on above: Performed By: #### P TT, NTBNP, HSTNT, CBCDIF, PT, CKCKMB, CMP #### [place] [phone] Abs Neut 7.03 k/uL Normal 1.45-7.50 [facility] Comment on above: Performed By: #### P TT, NTBNP, HSTNT, CBCDIF, PT, CKCKMB, CMP #### [place] [phone] Basophils/100 WBC (Bld) 0.6 % Normal [facility] Comment on above: Performed By: #### P TT, NTBNP, HSTNT, CBCDIF, PT, CKCKMB, CMP #### [place] [phone] DTYPE Auto Diff Normal [facility] Comment on above: Performed By: #### P TT, NTBNP, HSTNT, CBCDIF, PT, CKCKMB, CMP #### [phone] Eosinophils #/vol (Bld) 0.20 10*3/uL Normal <0.46 [facility] Comment on above: Performed By: #### P TT, NTBNP, HSTNT, CBCDIF, PT, CKCKMB, CMP #### [place] [address] Eosinophils/100 WBC (Bld) 2.3 % Normal [facility] Comment on above: Performed By: #### P TT, NTBNP, HSTNT, CBCDIF, PT, CKCKMB, CMP #### [place] [address] Erythrocyte distribution width Ratio (RBC) 13.4 % Normal 11.5-15.0 [facility] Comment on above: Performed By: #### P TT, NTBNP, HSTNT, CBCDIF, PT, CKCKMB, CMP #### [place] [address] Hematocrit Volume Fraction (Bld) 35.8 % Low 36.0-46.0 [facility] Comment on above: Performed By: #### P TT, NTBNP, HSTNT, CBCDIF, PT, CKCKMB, CMP #### [place] [address] Hemoglobin mass conc (Bld) 11.8 g/dL Normal 11.5-15.5 [facility] Comment on above: Performed By: #### P TT, NTBNP, HSTNT, CBCDIF, PT, CKCKMB, CMP #### [place] [address] Lymphocytes #/vol (Bld) 1.10 10*3/uL Normal 1.00-4.00 [facility] Comment on above: Performed By: #### P TT, NTBNP, HSTNT, CBCDIF, PT, CKCKMB, CMP #### [place] [address] Lymphocytes/100 WBC (Bld) 12.4 % Normal [facility] Comment on above: Performed By: #### P TT, NTBNP, HSTNT, CBCDIF, PT, CKCKMB, CMP #### [place] [phone] MCH Entitic mass (RBC) 28.8 pG Normal 26.0-34.0 [facility] Comment on above: Performed By: #### P TT, NTBNP, HSTNT, CBCDIF, PT, CKCKMB, CMP #### [place] [phone] MCHC mass conc (RBC) 33.0 g/dL Normal 30.5-36.0 [facility] Comment on above: Performed By: #### P TT, NTBNP, HSTNT, CBCDIF, PT, CKCKMB, CMP #### [place] [phone] MCV Entitic volume (RBC) 87.3 fL Normal 80.0-100.0 [facility] Comment on above: Performed By: #### P TT, NTBNP, HSTNT, CBCDIF, PT, CKCKMB, CMP #### [place] [phone] Monocytes/100 WBC (Bld) 5.3 % Normal [facility] Comment on above: Performed By: #### P TT, NTBNP, HSTNT, CBCDIF, PT, CKCKMB, CMP #### [place] [phone] Neutrophils/100 WBC (Bld) 79.4 % Normal [facility] Comment on above: Performed By: #### P TT, NTBNP, HSTNT, CBCDIF, PT, CKCKMB, CMP #### [place] [phone] Platelet mean volume Entitic volume (Bld) 10.1 fL Normal 9.0-12.7 [facility] Comment on above: Performed By: #### P TT, NTBNP, HSTNT, CBCDIF, PT, CKCKMB, CMP #### [place] [phone] Platelets #/vol (Bld) 210 10*3/uL Normal 150-400 [facility] Comment on above: Performed By: #### P TT, NTBNP, HSTNT, CBCDIF, PT, CKCKMB, CMP #### [place] [phone] RBC #/vol (Bld) 4.10 10*6/uL Normal 3.90-5.20 [facility] Comment on above: Performed By: #### P TT, NTBNP, HSTNT, CBCDIF, PT, CKCKMB, CMP #### [place] [phone] WBC #/vol (Bld) 8.85 10*3/uL Normal 3.70-11.00 [facility] Comment on above: Performed By: #### P TT, NTBNP, HSTNT, CBCDIF, PT, CKCKMB, CMP #### [place] [phone] CK, Total and CKMBon 019 CK enzyme act/vol 29 U/L Low 30-220 [facility] Comment on above: Performed By: #### P TT, NTBNP, HSTNT, CBCDIF, PT, CKCKMB, CMP #### [place] [phone] CK MB % CK MB % not reported with CK <100 U/L. Normal 0.0-4.0 [facility] Comment on above: Performed By: #### P TT, NTBNP, HSTNT, CBCDIF, PT, CKCKMB, CMP #### [place] [phone] MB 2.4 ng/mL Normal 0.0-8.8 [facility] Comment on above: Performed By: #### P TT, NTBNP, HSTNT, CBCDIF, PT, CKCKMB, CMP #### [place] [phone] Comp Metabolic Panelon 03-24 Albumin mass conc 4.6 g/dL Normal 3.5-5.0 [facility] Comment on above: Performed By: #### P TT, NTBNP, HSTNT, CBCDIF, PT, CKCKMB, CMP #### [place] [phone] ALP enzyme act/vol 113 U/L Normal 34-123 [facility] Comment on above: Performed By: #### P TT, NTBNP, HSTNT, CBCDIF, PT, CKCKMB, CMP #### [place] [phone] ALT enzyme act/vol 7 U/L Normal 0-45 [facility] Comment on above: Performed By: #### P TT, NTBNP, HSTNT, CBCDIF, PT, CKCKMB, CMP #### [place] [phone] Anion gap molar conc 14 mmol/L Normal 9-18 [facility] Comment on above: Performed By: #### P TT, NTBNP, HSTNT, CBCDIF, PT, CKCKMB, CMP #### [place] [phone] AST enzyme act/vol 10 U/L Normal 7-40 [facility] Comment on above: Performed By: #### P TT, NTBNP, HSTNT, CBCDIF, PT, CKCKMB, CMP #### [place] [phone] Bilirubin mass conc 0.2 mg/dL Normal 0.2-1.3 [facility] Comment on above: Performed By: #### P TT, NTBNP, HSTNT, CBCDIF, PT, CKCKMB, CMP #### [place] [phone] Calcium mass conc 9.8 mg/dL Normal 8.5-10.5 [facility] Comment on above: Performed By: #### P TT, NTBNP, HSTNT, CBCDIF, PT, CKCKMB, CMP #### [place] [phone] Chloride molar conc 101 mmol/L Normal 98-110 [facility] Comment on above: Performed By: #### P TT, NTBNP, HSTNT, CBCDIF, PT, CKCKMB, CMP #### [address] CO2 molar conc 22 mmol/L Low 23-32 [facility] Comment on above: Performed By: #### P TT, NTBNP, HSTNT, CBCDIF, PT, CKCKMB, CMP #### [place] [phone] Creatinine mass conc 1.50 mg/dL High 0.70-1.40 [facility] Comment on above: Performed By: #### P TT, NTBNP, HSTNT, CBCDIF, PT, CKCKMB, CMP #### [place] [phone] eGFR- Amer. 41 Low >60 [facility] Comment on above: Performed By: #### P TT, NTBNP, HSTNT, CBCDIF, PT, CKCKMB, CMP #### [place] [phone] GFR/1.73 sq M predicted among non-blacks MDRD vol rate/area (S/P/Bld) 34 . Low >60 [facility] Comment on above: Performed By: #### P TT, NTBNP, HSTNT, CBCDIF, PT, CKCKMB, CMP #### [place] [phone] Glucose mass conc 243 mg/dL High 65-100 [facility] Comment on above: Performed By: #### P TT, NTBNP, HSTNT, CBCDIF, PT, CKCKMB, CMP #### [place] [phone] Potassium molar conc 5.8 mmol/L High 3.5-5.0 [facility] Comment on above: Performed By: #### P TT, NTBNP, HSTNT, CBCDIF, PT, CKCKMB, CMP #### [place] [phone] Protein mass conc 8.0 g/dL Normal 6.0-8.4 [facility] Comment on above: Performed By: #### P TT, NTBNP, HSTNT, CBCDIF, PT, CKCKMB, CMP #### [place] [phone] Sodium molar conc 137 mmol/L Normal 132-148 [facility] Comment on above: Performed By: #### P TT, NTBNP, HSTNT, CBCDIF, PT, CKCKMB, CMP #### [place] [phone] Urea nitrogen mass conc 34 mg/dL High 8-25 [facility] Comment on above: Performed By: #### P TT, NTBNP, HSTNT, CBCDIF, PT, CKCKMB, CMP #### [place] [phone] ED NOTEon 03-24-2018 ED NOTE HNO ID: [id number] Author: Monica CabreraRn) DEBBIE Thurman Service: Nursing Author Type: Registered Nurse Type: ED Notes Filed: 03/24/2018 6:53 PM Note Text: Repeat troponin drawn and sent to lab. [facility] ED NOTE HNO ID: [id number] Author: Monica Payton) DEBBIE Thurman Service: Nursing Author Type: Registered Nurse Type: ED Notes Filed: 03/24/2018 6:46 PM Note Text: Report given to Vanessa LEWIS on [place]. Bed is ready. Transport notified. [facility] ED NOTE HNO ID: [id number] Author: Ken CabreraRn) DEBBIE Mackenzie Service: (none) Author Type: Registered Nurse Type: ED Notes Filed: 03/24/2018 5:12 PM Note Text: Bed: 25-ED Expected date: Expected time: Means of arrival: Comments: CP/SOB Normal [facility] ED PROV NOTEon 03-24-2018 Protein mass conc HNO ID: [id number] Author: Easton Ty MD Service: Emergency Medicine [...] feels similar to when she had her LA in the past. No leg pain or [...] Coronary atherosclerosis of unspecified type of vessel, [place] or graft Coronary Atherosclerosis - Diabetes (HCC) [...] Final Result IMPRESSION: Mild bilateral basal atelectasis. Turkey Farmer: JENNIFER Transcribe Date/Time: Mar 24 2018 6:48P [...] pectoris (HCC) Atherosclerosis of coronary artery of [place] heart with unstable angina pectoris, unspecified vessel [...] at this time and recommends admission to [facility] and treat as NSTEMI with heparin. Pt started on heparin in the ED. Concern for NSTEMI/ACS at this time. No concern for PE, aneurysm, or dissection at this time. Chest pain improved with nitroglycerin, currently 3/10. Case was discussed with [facility] hospitalist and patient will be admitted to [facility]. Pt remained stable during ED visit and stable at the time of admission. The patient was ADMITTED TO: [facility]. Condition at time of disposition: improved and [...] discussed the plan of care with the PA/POWDER MILL OPERATOR and agree with the findings documented. Critical care time excludes separately billed procedures. Easton Ty MD Attending Note I have personally performed a face to face assessment of the patient and have reviewed the PA/POWDER MILL OPERATOR note. My olivera findings include: History is a 73-year-old female presents with chest pain that began earlier today. Her symptoms are concerning for unstable angina. Initial EKG was largely unchanged from her EKG. There was some concerning ST segment depressions in leads 1 and aVL. EKGs are shared with division leader interventionalist, Dr Browne, who agrees symptoms and EKGs are concerning for unstable angina. He does not recommend emergent catheterization at this time. The patient will be admitted to [facility] CICU. Heparin drip will be started. Nitroglycerin drip was also started. Assessment/Plan are admission to [facility]. Other additions or changes: None Signature: Easton Ty MD Date: 03/26/2018 Time: 8:25 AM Easton Ty MD 03/26/18 0834 Normal [facility] HISTORY PHYSICALon HISTORY PHYSICAL HNO ID: [id number] Author: Chiara Latham Service: Hospital Medicine Author Type: Physician Type: HANDP Filed: 03/24/2018 9:38 PM Note Text: SERVICE DATE: 03/24/2018 SERVICE TIME: 9:30 PM DEPARTMENT OF HOSPITAL MEDICINE HISTORY AND PHYSICAL EXAM Primary Care Physician: Sacha Ford MD Primary Personnel Worker: Dr Doris Browne PATIENT NAME: Sarina Lovett PATIENT LOCATION: [id number]- 024* NIGHT AND WEEKEND COVERAGE: Tonight: [phone], please page me at [phone]. Patient will be assigned at 0730 to [...] states this feels similar to her prior LA. She denies history of DVT/PE. She is currently being treated for NSTEMI. In the ED, she was found to be hypertensive with BP 190/65, pulse 70. CBC with WBC8.85 Hgb11.8 (slightly above BL of 9.8) [id number]. INR 1.0. Chem with hyperkalemia of 5.8, [...] Coronary atherosclerosis of unspecified type of vessel, [place] or graft Coronary Atherosclerosis - Diabetes (HCC) [...] Plan Assessment: SBP 240s/80s on arrival to [facility]. With Chest pain and ?JULIETA. PLAN: -On [...] 03/24/182044 vte non-pharmacologic prophylaxis - none indicated (nd,in) 03/24/182044 activity - mobilize patient (nd,in) VTE Prophylaxis: VTE prophylaxis appropriate SIGNATURE: Chiara Latham MD PATIENT NAME: Sarina Lovett DATE: March 24, 2018 TIME: 9:30 PM PAGER/CONTACT #: [phone] [facility] HOSPon 03-24-2018 HOSP Patient:Sarina Lovett MRN: Height:5' [...] % 03/26/2018 46.0 36.0 Progress Notes (): eKn Mackenzie, RN, RN 03/24/2018 5:12 PM Signed [...] feels similar to when she had her LA in the past. No leg pain or [...] Coronary atherosclerosis of unspecified type of vessel, [place] or graft Coronary Atherosclerosis - Diabetes (HCC) [...] Final Result IMPRESSION: Mild bilateral basal atelectasis. Turkey Farmer: JENNIFER Transcribe Date/Time: Mar 24 2018 6:48P [...] pectoris (HCC) Atherosclerosis of coronary artery of [place] heart with unstable angina pectoris, unspecified vessel [...] at this time and recommends admission to [facility] and treat as NSTEMI with heparin. Pt started on heparin in the ED. Concern for NSTEMI/ACS at this time. No concern for PE, aneurysm, or dissection at this time. Chest pain improved with nitroglycerin, currently 05/07. Case was discussed with [facility] hospitalist and patient will be admitted to [facility]. Pt remained stable during ED visit and stable at the time of admission. The patient was ADMITTED TO: [facility]. Condition at time of disposition: improved and stable SIGNATURE: KIRSTIN Banda) DENISHA Ruggiero 03/24/18 0605 Critical Care I spent a total of [...] discussed the plan of care with the PA/POWDER MILL OPERATOR and agree with the findings documented. Critical care time excludes separately billed procedures. Easton Ty MD Attending Note I have personally performed a face to face assessment of the patient and have reviewed the PA/POWDER MILL OPERATOR note. My olivera findings include: History is a 73-year-old female presents with chest pain that began earlier today. Her symptoms are concerning for unstable angina. Initial EKG was largely unchanged from her EKG. There was some concerning ST segment depressions in leads 1 and aVL. EKGs are shared with division leader interventionalist, Dr Browne, who agrees symptoms and EKGs are concerning for unstable angina. He does not recommend emergent catheterization at this time. The patient will be admitted to [facility] CICU. Heparin drip will be started. Nitroglycerin drip was also started. Assessment/Plan are admission to [facility]. Other additions or changes: None Signature: Easton [...] Signed Report given to Vanessa LEWIS on [facility]. Bed is ready. Transport notified. Monica Thurman, [...] states this feels similar to her prior LA. She denies history of DVT/PE. She is [...] Edited Assessment: SBP 240s/80s on arrival to [facility]. With Chest pain and ?JULIETA. PLAN: -On [...] Primary Care Physician: Sacha Ford MD Primary Personnel Worker: Dr Doris Browne PATIENT NAME: Sarina Lovett PATIENT LOCATION: [id number]/[place] [address]* NIGHT AND WEEKEND COVERAGE: Tonight: [phone], please page me at [phone]. Patient will be assigned at 0730 to [...] states this feels similar to her prior LA. She denies history of DVT/PE. She is currently being treated for NSTEMI. In the ED, she was found to be hypertensive with BP 190/65, pulse 70. CBC with WBC8.85 Hgb11.8 (slightly above BL of 9.8) [id number]. INR 1.0. Chem with hyperkalemia of 5.8, [...] Coronary atherosclerosis of unspecified type of vessel, [place] or graft Coronary Atherosclerosis - Diabetes (HCC) [...] 24, 2018 As described in the HPI Chiara Latham MD 03/24/2018 9:30 PM Written See hypertensive emergency. Chiara Latham MD 03/24/2018 9:30 PM Written See NSTEMI Chiara Latham MD 03/24/2018 9:38 PM Addendum SERVICE DATE: 03/24/2018 SERVICE TIME: 9:30 PM DEPARTMENT OF HOSPITAL MEDICINE HISTORY AND PHYSICAL EXAM Primary Care Physician: Sacha Ford MD Primary Personnel Worker: Dr Doris Browne PATIENT NAME: Sarina Lovett PATIENT LOCATION: [id number]/[facility]- 024* NIGHT AND WEEKEND COVERAGE: Tonight: [phone], please page me at [phone]. Patient will be assigned at 0730 to [...] states this feels similar to her prior LA. She denies history of DVT/PE. She is currently being treated for NSTEMI. In the ED, she was found to be hypertensive with BP 190/65, pulse 70. CBC with WBC8.85 Hgb11.8 (slightly above BL of 9.8) Frs566. INR 1.0. Chem with hyperkalemia of 5.8, [...] Coronary atherosclerosis of unspecified type of vessel, [place] or graft Coronary Atherosclerosis - Diabetes (HCC) [...] Plan Assessment: SBP 240s/80s on arrival to [facility]. With Chest pain and ?JULIETA. PLAN: -On [...] 03/24/182044 vte non-pharmacologic prophylaxis - none indicated (nd,oh) 03/24/182044 activity - mobilize patient (nd,in) VTE Prophylaxis: VTE prophylaxis appropriate SIGNATURE: Chiara Latham MD PATIENT NAME: Sarina Lovett DATE: March 24, 2018 TIME: 9:30 PM PAGER/CONTACT #: [phone] Previous Version Shira Carrillo RN, RN 03/25/2018 6:11 PM Addendum Nursing Progress Note Patient Name: Sarina Lovett Patient Location: [place] [address]/[facility] 024* Daily Note: 0700 Report received from [...] coreg. This note was completed by: Shira Carrilol RN Previous Version E Doris Browne MD [...] RCA: No Stenosis, there is 99% in [place] after the graft SVG Graft 2 to [...] Coronary atherosclerosis of unspecified type of vessel, [place] or graft Coronary Atherosclerosis - Diabetes (HCC) [...] in this patient's care. SIGNATURE: Deanna Yoo APRN.[facility] cardiology DATE: March 25, 2018 [...] CC time 35 min Larisa Dougherty MD [facility] UNIT PROGRESS NOTE NAME: Sarina Lovett [...] home, last A1c 9.3% in 08/2016 at [facility]. - SSI1 - recheck A1c Hypomagnesemia 1.7 on admission. Continue to monitor. - replete PRN VTE Prophylaxis - on heparin drip Dispo - continue care in [facility] SUBJECTIVE INTERVAL HPI: Ms. Lovett feels better [...] Therapist: Previously followed by Melody Montero Current Carbon Dioxide Operator: None Last Hospitalization: None Hx of Suicide Attempts: Never Previous Discontinued Psychiatric Med Trials: None PAST MEDICAL HISTORY Diagnosis Date - Acute myocardial infarction, unspecified site 11/28 s/p RCA stent, had stress Echo ': told o.k. - Aortic valve disorders - Cancer (HCC) - Coronary atherosclerosis of unspecified type of vessel, [place] or graft Coronary Atherosclerosis - Diabetes (HCC) [...] Note Patient Name: Sarina Lovett Patient Location: [place] [address] [address]* Daily Note: 0730 Bedside report received from [...] MD 03/26/2018 10:17 AM Signed Dictation number: [id number] JULIETA on CKD 3 Check spot protein/Cr [...] Dougherty MD 03/26/2018 11:06 AM Signed DEPARTMENT [facility] MEDICINE PROGRESS NOTE Name: Sarina Lovett SERVICE [...] and RN SIGNATURE: Larisa Dougherty MD Normal [facility] High Sens Troponin Ton 03-24 High Sensitivity ANGE 30 ng/L High <12 [facility] Comment on above: Result Comment: When [...] NTBNP, HSTNT, CBCDIF, PT, CKCKMB, CMP #### [place] [phone] High Sensitivity ANGE 31 ng/L High <12 [facility] Comment on above: Result Comment: When [...] NTBNP, HSTNT, CBCDIF, PT, CKCKMB, CMP #### [place] [phone] Magnesiumon 03-24-2018 Magnesium mass conc 1.7 mg/dL Normal 1.7-2.6 [facility] Comment on above: Performed By: #### P TT, NTBNP, HSTNT, CBCDIF, PT, CKCKMB, CMP #### [place] [phone] NT Pro BNPon 03-24-2018 Protein mass conc 9108 pg/mL High <125 [facility] Comment on above: Performed By: #### P TT, NTBNP, HSTNT, CBCDIF, PT, CKCKMB, CMP #### [place] [phone] Protimeon 03-24-2018 Prothrombin time (PT) Coag time (PPP) 1.0 s Normal 0.9-1.3 [facility] Comment on above: Result Comment: Rachel min K Antagonist (VKA) Therapeutic Range: INR 2 to 3 (Target INR of 2.5) Note: For patients treated with VKA drugs, such as warfarin, the [place] [employer] 2012 Guideline recommends [...] Chest 2012, 141:7S-47S Roger RA, et al. [facility] 2017, 70: 252-289 Performed By: #### P TT, NTBNP, HSTNT, CBCDIF, PT, CKCKMB, CMP #### [place] [phone] Prothrombin time (PT) Coag time (PPP) 10.4 s Normal 9.7-13.0 [facility] Comment on above: Performed By: #### P TT, NTBNP, HSTNT, CBCDIF, PT, CKCKMB, CMP #### [place] [phone] Troponin Ton 03-24-2018 Troponin T.cardiac mass conc 0.025 ng/mL Normal 0.000-0.029 [facility] Comment on above: Performed By: #### P TT, NTBNP, HSTNT, CBCDIF, PT, CKCKMB, CMP #### [place] [phone] Urinalysis with Microscopico n 03-24-2018 Bacteria LM.HPF #/area (Urine sed) Rare Critically abnormal Negative [facility] Comment on above: Performed By: #### P TT, NTBNP, HSTNT, CBCDIF, PT, CKCKMB, CMP #### [place] [phone] Bilirubin, Urine Negative Normal Negative [facility] Comment on above: Performed By: #### P TT, NTBNP, HSTNT, CBCDIF, PT, CKCKMB, CMP #### [place] [phone] Clarity Nom (U) Clear Normal Clear [facility] Comment on above: Performed By: #### P TT, NTBNP, HSTNT, CBCDIF, PT, CKCKMB, CMP #### [place] [phone] Color Nom (U) Yellow Normal Yellow [facility] Comment on above: Performed By: #### P TT, NTBNP, HSTNT, CBCDIF, PT, CKCKMB, CMP #### [address] Comments SEE COMMENT Normal [facility] Comment on above: Result Comment: Micr oscopic Examination Performed Performed By: #### P TT, NTBNP, HSTNT, CBCDIF, PT, CKCKMB, CMP #### [address] Epithelial cells LM.HPF #/area (Urine sed) SEE COMMENT Critically abnormal Negative [facility] Comment on above: Result Comment: Rare Squamous Epithelial Cells Performed By: #### P TT, NTBNP, HSTNT, CBCDIF, PT, CKCKMB, CMP #### [place] [phone] Glucose Ql (U) Negative Normal Negative [facility] Comment on above: Performed By: #### P TT, NTBNP, HSTNT, CBCDIF, PT, CKCKMB, CMP #### [address] Hemoglobin/Blood,Ur Small Critically abnormal Negative [facility] Comment on above: Performed By: #### P TT, NTBNP, HSTNT, CBCDIF, PT, CKCKMB, CMP #### [place] [address] Ketones Ql (U) Negative Normal [facility] Comment on above: Performed By: #### P TT, NTBNP, HSTNT, CBCDIF, PT, CKCKMB, CMP #### [place] [id number] Leukest Moderate Critically abnormal [facility] Comment on above: Performed By: #### P TT, NTBNP, HSTNT, CBCDIF, PT, CKCKMB, CMP #### [place] [phone] Nitrite Ql (U) Negative Normal [facility] Comment on above: Performed By: #### P TT, NTBNP, HSTNT, CBCDIF, PT, CKCKMB, CMP #### [place] [address] pH (Bld) 5.0 Normal 5.0-8.0 [facility] Comment on above: Performed By: #### P TT, NTBNP, HSTNT, CBCDIF, PT, CKCKMB, CMP #### [place] [address] Protein mass conc (U) 30 mg/dL Critically abnormal [facility] Comment on above: Performed By: #### P TT, NTBNP, HSTNT, CBCDIF, PT, CKCKMB, CMP #### [place] [phone] RBC #/vol (U) Rare Critically abnormal [facility] Comment on above: Performed By: #### P TT, NTBNP, HSTNT, CBCDIF, PT, CKCKMB, CMP #### [place] [id number] Specific [place], Ur 1.015 Normal 1.005-1.030 [facility] Comment on above: Performed By: #### P TT, NTBNP, HSTNT, CBCDIF, PT, CKCKMB, CMP #### [place] [phone] Urobilinogen Qn (U) <2.0 Normal <2.0 [facility] Comment on above: Performed By: #### P TT, NTBNP, HSTNT, CBCDIF, PT, CKCKMB, CMP #### [place] [phone] WBC #/vol (Bld) 0-5 Critically abnormal Negative [facility] Comment on above: Performed By: #### P TT, NTBNP, HSTNT, CBCDIF, PT, CKCKMB, CMP #### [place] [phone] XR CHEST 1V FRONTAL PORTon 0 03-24-2018 [...] 4. Other: IMPRESSION: Mild bilateral basal atelectasis. Turkey Farmer: JENNIFER Transcribe Date/Time: Mar 24 2018 6:48P Dictated by : ELEONORA HIGGINS MD This examination was interpreted and the report reviewed and electronically signed by: ELEONORA HIGGINS MD on Mar 24 2018 6:49PM EST [id number] Normal [facility] Vital Signs Date Time Vital Sign Value Performing Clinician Chichi barry 01-27-2023 12:57-0500 Diastolic blood pressure 82 mm[Hg] Prince Destiney [facility] 01-27-2023 12:57-0500 Heart rate 82 /min [facility]erson [facility] 01-27-2023 12:57-0500 SaO2% (BldA) [Mass fraction] 98 % Prince Garayerson [facility] 01-27-2023 12:57-0500 Systolic blood pressure 134 mm[Hg] Prince Christofferson [facility] 12-16-2022 13:00-0400 Diastolic blood pressure 86 mm[Hg] Prince Garayerson [facility] 12-16-2022 13:00-0400 Heart rate 76 /min Prince Lechugaofferson [facility] 12-16-2022 13:00-0400 SaO2% (BldA) [Mass fraction] 92 % Prince Cabello [facility] 12-16-2022 13:00-0400 Systolic blood pressure 140 mm[Hg] Prince Cabello [facility] 06-14-2022 11:30-0400 Body height 162.56 cm Trevor Guevara Other [address] Other 06-14-2022 11:30-0400 Body mass index (BMI) [Ratio] 30.38 kg/m2 Trevor Guevara Other [address] Other 06-14-2022 11:30-0400 Body weight 80.29 kg Trevor Guevara Other [address] Other 06-14-2022 11:30-0400 Diastolic blood pressure 100 mm[Hg] Trevor Paola Other [address] Other 06-14-2022 11:30-0400 SaO2% (BldA) [Mass fraction] 97 % Trevor Paola Other [address] Other 06-14-2022 11:30-0400 Systolic blood pressure 152 mm[Hg] Trevor Paola Other [address] Other Encounters Encounter Date Encounter Type Care Provider Facility Start: 03-14-2023 End: 03-14-2023 ambulatory SHAIKH CUBA Not Available Start: 02-09-2023 End: 02-09-2023 ambulatory LETHA GÓMEZ Not Available Start: 01-27-2023 End: 01-28-2023 ambulatory Prince Cabello Facility:[facility] Start: 01-27-2023 End: 01-27-2023 Patient encounter procedure Prince Cabello [facility] Start: 01-05-2023 End: 01-06-2023 ambulatory Prince Cabello Facility:[facility] Start: 01-05-2023 End: 01-05-2023 Patient encounter procedure Prince Cabello [facility] Start: 12-20-2022 ambulatory Prince Cabello Fac ility:[facility] Start: 12-16-2022 End: 12-17-2022 ambulatory Prince Cabello Facility:[facility] Start: 12-16-2022 End: 12-16-2022 Patient encounter procedure Prince Cabello [facility] Start: 12-11-2022 Letter encounter Sacha norton MD [facility]: [facility] Start: 09-22-2022 ambulatory Prince Cabello Fac ility: [facility] Start: 09-20-2022 End: 09-21-2022 ambulatory Augie MCDOWELL Facility:CD:[id number] Start: 09-12-2022 Letter encounter Sacha norton MD Work Phone: [facility] Start: 06-14-2022 End: 06-14-2022 ambulatory Trevor Guevara Other [address] Other Start: 06-14-2022 Office outpatient vi sit 15 minutes Trevor Guevara [facility] Start: 03-30-2022 End: 03-31-[address] TREVOR GUEVARA Facility:[facility] Start: 03-14-2022 Letter encounter Sacha norton MD Work Phone: [facility] Start: 02-12-2022 End: 02-13-[address] TREVOR GUEVARA Facility:[facility] Start: 01-20-2022 End: 01-21-[address] TREVOR GUEVARA Facility:[facility] Start: 12-20-2021 Letter encounter Sacha norton MD Work Phone: [facility] Start: 09-19-2021 Letter encounter Sacha norton MD [facility]: [facility] Start: 06-29-2018 End: 07-07-2018 Evaluation and management of inpatient [facility] Start: 06-06-2018 End: 06-06-2018 Emergency department patient visit [facility] Start: 05-02-2018 End: 05-02-2018 Patient encounter procedure E DORISKeny BROWNE [facility] Start: 03-24-2018 End: 04-08-2018 Evaluation and management of inpatient [facility] Start: 01-20-2018 End: 01-20-2018 ambulatory UNKNOWN PROVIDER Facility:[facility] Start: 05-02-2014 Preprocedural examination done Sacha Schroeder MD Work Phone: [facility] Work Phone: Procedures Date Procedure Procedure Detail Performing Clinician Start: 04-03-2018 Antibody screen ANDREE PETERS Comment on above: Performed By: #### PTT, NTBNP, HSTNT, CB CDIF, PT, CKCKMB, CMP #### [place] [id number] [place] [phone] Start: 03-27-2018 Electrocardiogram ANDREE PETERS Start: 03-27-2018 Electrocardiogram ANDREE PETERS Start: 03-27-2018 Electrocardiogram ANDREE PETERS Start: 03-26-2018 Electrocardiogram ANDREE PETERS Start: 03-26-2018 Electrocardiogram ANDREE PETERS Start: 03-26-2018 Antibody screen ANDREE PEETRS Comment on above: Performed By: #### PTT, NTBNP, HSTNT, CB CDIF, PT, CKCKMB, CMP #### [place] [phone] Start: 03-25-2018 Electrocardiogram ANDREE PETERS Start: 03-25-2018 [...] 10-29-2022 Influenza vaccination Influenza Vacc ine (#1) [facility] Start: 11-28-2021 Influenza vaccination Influenza Vacc ine (#1) [facility] Start: 07-08-2019 Basic metabolic 2000 panel - Serum or Plasma Basic Metabolic Panel [facility] Start: 07-08-2019 Creatinine measurement Basic [facility]abol [facility] Start: 01-09-2019 Screening for malign ant neoplasm of breast [facility]amm[facility] Start: 10-15-2018 Screening for malign ant neoplasm of colon [facility] Start: 02-28-2013 Annual wellness visit Annual W ellness Visit ([id number]) [facility] Start: 2007 RSV vaccine (optiona l 60+ years) RSV vaccine (optional 60+ years) [facility] Start: 1997 Measurement of occul t blood in single stool specimen FIT [facility] Start: 1997 Shingles (RZV) Vacci ne (1 of 2) Shingles (RZV) [facility] (1 of 2[facility]: 1945 COVID-19 Vaccine (#1) COVID-19 Vacci ne (#1) [facility] Immunizations Immunization Date Immunization Notes Care Provider Fa [facility] 01-20-2018 Seasonal trivalent influenza vaccine, adjuvanted, preservative free Sacha Schroeder MD Work Phone: [facility] 01-20-2018 influenza virus vaccine, unspecified formulation Sacha Schroeder MD Work Phone: [facility] 04-28-2017 pneumococcal polysaccharide vaccine, 23 valent Sacha Schroeder MD Work Phone: [facility] 02-02-2016 influenza, seasonal, injectable, preservative free Sacha Schroeder MD Work Phone: [facility] 09-29-2015 pneumococcal conjuga te vaccine, 13 valent Sacha Schroeder MD Work Phone: [facility] 08-23-2015 tetanus toxoid, redu anh diphtheria toxoid, and acellular pertussis vaccine, adsorbed Sacha Schroeder MD Work Phone: [facility] Work Phone: 12-05-2013 influenza virus vaccine, unspecified formulation Sacha Schroeder MD Work Phone: [facility] Payers Date Payer Category Payer Medicare [id number] 2014 Medicare ANTHEM - MEDICAR E ANTHEM MEDICARE [id number] 2014-Present [address] [place] [address] Medicare HMO [id number] 1959 Self-pay [id number] 1959 Unknown [id number] 1945 Unknown [id number] 1947 Unknown [id number] [id number] 1947 Unknown [id number] [id number] 1947 Unknown [id number] [id number] 1947 Unknown [id number] [id number] 1947 Unknown [id number] [id number] 1947 Unknown [id number] [id number] 1947 Unknown [id number] [id number] 1947 Unknown [id number] [id number] 1947 Unknown [id number] [id number] Unknown [id number] Unknown DEYGCS Social History Date Type Detail [...] [facility] Start: 01-20-2018 Alcohol intake Current non-dr water tester of alcohol (finding) [facility] Start: 02-21-2014 Tobacco Comment quite july 18, 2013 [facility] Start: 1945 [facility] Medical Equipment Procedure Code Equipment Code Equipment Origin al Text Equipment Identifier Dates Lens Posterior Chamber 20.0 Intraocular Sa60at Sa60at 20.0 - [id number] Start: 02-19-2016 Lens Posterior Chamber 20.0 Intraocular Sa60at Sa60at 20.0 - [id number] Start: 03-03-2016 Goals Date Patient Goal [...] Assessment Result Facility 01-27-2023 Functional Status No [facility] 12-16-2022 Functional Status No [facility] Clinical Note 01-05-2023 Note Date & Type Note Facility 01-05-2023 Note Echocardiology Procedure Exam Date/Time Accession # Ordering Echo Transthoracic 01/05/2023 10:17 EST [id number] Destiney DE LEÓN, Prince Castro CPT code [id number] Reason for Exam (Echo Transthoracic Complete) I25.10;CAD Coronary artery disease Report [facility] [address] [place] [address] Adult Echocardiogram Report Name: SARINA VILLEGAS Study Date: 01/05/2023 08:53 AM BP: 143/90 mmHg Patient Location: [facility] HR: 70 : 1945 Gender: Female Height: 63 in Age: 77 yrs Ethnicity: [facility] Weight: 175 lb Reason For Study: CAD [...] & Calculations Echocardiology Report MV E max chaog: 41.6 cm/sec MV dec time: 0.21 sec [...] ADAMS MD Transcribed by: NAZIA Technologist: LASHAY [facility] Evaluation note 06-14-2022 Note Date & Type Note Facility 06-14-2022 Evaluation note Encounter Date Diagnosis Assessment Notes May, Dental infection (ICD-10 - K04.7) Discussed differential of Curlew palsy v. dental issue. Tooth fragment appears inflammed. She will contact her dentist and let us know what they say. [facility] [employer] Other Evaluation + Plan note Radiology Note Date & Type Note Facility Evaluation + Plan note Future Appointments Appointment Date:01/27/2023 01:15:00 PM Scheduled Provider:Prince Cabello MD Location:[facility] Appointment Type:Cardiology Follow Up ([facility]) Future Scheduled TestsEcho Transthoracic Complete 12/16/22US Carotid Duplex Bilateral 12/16/22 [facility] Evaluation + Plan note Note Date & Type Note Facility Evaluation + Plan note Future Appointments Appointment Date:01/27/2023 01:15:00 PM Scheduled Provider:Prince Cabello MD Location:[facility] Appointment Type:Cardiology Follow Up ([facility]) [facility] Evaluation + Plan note Note Date & Type Note Facility Evaluation + Plan note Future Appointments Appointment Date:07/22/2023 01:15:00 PM Scheduled Provider:Prince Cabello MD Location:[facility] Appointment Type:Cardiology Follow Up ([facility]) [facility] History general Narrative - Reported Note Date & Type Note Facility History general Narrative - Reported Type Medical History Hypertension Medical History Hyperlipidemia [facility] [employer] Other Hospital course Narrative Note Date & Type Note Facility Hospital course Narrative No data available for this section [facility] Hospital Discharge instructions Note Date & Type Note Facility Hospital Discharge instructions No data available for this section [facility] Progress note Note Date & Type Note Facility Progress note No data available for this section [facility] Summary Purpose Family History No Family [...] section and content) DATE CREATED AUTHOR 06/05/2018 [facility] DATE CREATED AUTHOR AUTHOR'S ORGANIZ ATION 07/18/2018 [facility] DATE CREATED AUTHOR AUTHOR'S ORGANIZ ATION 05/17/2021 [facility] DATE CREATED AUTHOR AUTHOR'S ORGANIZ ATION 04/01/2022 [facility] DATE CREATED AUTHOR AUTHOR'S ORGANIZ ATION 01/29/2023 [facility] DATE CREATED AUTHOR AUTHOR'S ORGANIZ ATION 03/15/2023 [facility] [employer] Care Teams (unrecognized sec tion and content) 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 [employer] provides no warranty or guarantee of the accuracy or completeness of information in this document.
== END 2022-09-22 14:32 | disposition home or self-care (01) | DRG 389 ==
LOC: ER 07:46 → MS 17:35
PROVIDERS: Admitting Provider Internal Medicine; Emergency Provider Internal Medicine; PCP Family Medicine; Visit Provider Internal Medicine
DX: K56.609 Unspecified intestinal obstruction, unspecified as to partial versus complete obstruction (principal); E87.20 Acidosis, unspecified; R11.2 Nausea with vomiting, unspecified; I10 Essential (primary) hypertension; D72.829 Elevated white blood cell count, unspecified; E86.0 Dehydration; I25.10 Atherosclerotic heart disease of native coronary artery without angina pectoris; E78.5 Hyperlipidemia, unspecified; E03.9 Hypothyroidism, unspecified; R19.7 Diarrhea, unspecified; F32.A Depression, unspecified; Z79.899 Other long term (current) drug therapy; Z79.82 Long term (current) use of aspirin; Z79.890 Hormone replacement therapy; Z98.61 Coronary angioplasty status; Z87.891 Personal history of nicotine dependence; Z88.0 Allergy status to penicillin; Z87.19 Personal history of other diseases of the digestive system; Z98.890 Other specified postprocedural states; Z82.3 Family history of stroke; Z82.49 Family history of ischemic heart disease and other diseases of the circulatory system; Z80.9 Family history of malignant neoplasm, unspecified; Z90.49 Acquired absence of other specified parts of digestive tract
CPT/HCPCS: 36415; 71045; 74022; 74177; 74250; 80048; 80053; 81003; 83605; 83690; 84484; 85025; 93005; 94667; 96361; 96365; 96366; 96372; 96375; 96376; 97110; 97161; 97165; 97535; 99285; G0378; J3480; Q9963; Q9967

== ENCOUNTER 2022-10-12 13:08 | Outpatient (OUT) | payer MEDICARE, SELFPAY ==
--- NOTE | 2022-10-12 13:13 | XR_ITS ---
The [address] [address] Patient Name: AYSHA ABRAHAM MRN: [id number] date: 1945 Sex: F Assigned Patient Location: RAD Current Patient Location: [facility] Accession/Order Number: [id number] Exam Date: 10/12/2022 13:20 Report Date: 10/12/2022 13:36 At the request of: SHAIKH CUBA Procedure: XR lumbar spine 2-3V EXAM: XR lumbar spine 2-3V HISTORY: Chronic Low Back Pain M54.50 COMPARISON: None. TECHNIQUE: 2 views FINDINGS: Moderate S-shaped scoliosis of the thoracolumbar spine. Maintained vertebral body heights. Multilevel endplate degenerative changes, facet arthropathy and disc disease as well as anterior spurring at the visualized lumbar spine, most prominent from L4 to S1. No acute fracture. Scattered calcified atherosclerotic disease of aorta. XR/XR lumbar spine 2-3V IMPRESSION: Degenerative changes and disc disease as above. Electronically authenticated by: DANIEL MUNSON Date: 10/12/2022 13:36
== END 2022-10-12 13:09 | disposition home or self-care (01) ==
LOC: RAD 13:09
PROVIDERS: PCP Internal Medicine; Visit Provider Internal Medicine
DX: M54.50 Low back pain, unspecified (principal)
CPT/HCPCS: 72100

== ENCOUNTER 2023-02-04 10:41 | Outpatient (OUT) | payer MEDICARE, SELFPAY ==
--- NOTE | 2023-02-04 10:45 | US_ITS ---
The [address] [address] Patient Name: AYSHA ABRAHAM MRN: [id number] date: 1945 Sex: F Assigned Patient Location: US Current Patient Location: US Accession/Order Number: [id number] Exam Date: 02/04/2023 10:50 Report Date: 02/04/2023 15:16 At the request of: LETHA GÓMEZ Procedure: US soft tissue head and neck EXAM: US soft tissue head and neck HISTORY: Mass Of Neck R22.1 COMPARISON: 08/02/2022 TECHNIQUE: Grayscale and color ultrasound FINDINGS: Again demonstrated in the left lateral neck is a focal oval well-circumscribed hypoechogenic mass measuring 1.8 x 0.8 x 0.7 cm. This lesion has a small amount of vascular flow. 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
== END 2023-02-04 10:42 | disposition home or self-care (01) ==
LOC: US 10:41
PROVIDERS: PCP Internal Medicine; Visit Provider Otolaryngology
DX: R22.1 Localized swelling, mass and lump, neck (principal)
CPT/HCPCS: 76536

== ENCOUNTER 2023-04-11 15:22 | Outpatient (OUT) | payer OTHER, SELFPAY ==
[2023-04-11 20:09] LABS: Bilirubin Urine NEGATIVE (NEGATIVE); Blood Urine NEGATIVE (NEGATIVE); Clarity Urine CLEAR (CLEAR); Color Urine LT. YELLOW (YELLOW); Glucose Urine UA NEGATIVE (NEGATIVE); Ketones Urine NEGATIVE (NEGATIVE); Leukocyte Esterase Urine NEGATIVE (NEGATIVE); Nitrite Urine NEGATIVE (NEGATIVE); Protein Urine NEGATIVE (NEG/TRACE); Specific Gravity Urine 1.025 (1.005-1.025); Urobilinogen Urine 0.2 EU/dL (0.2-1.0); pH Urine 5.5 (5.0-9.0)
[2023-04-11 20:10] LABS: Urine Microscopic Indicated NO
== END 2023-04-11 15:23 | disposition home or self-care (01) ==
LOC: LAB 15:25
PROVIDERS: PCP Internal Medicine; Visit Provider Internal Medicine
DX: R10.9 Unspecified abdominal pain (principal)
CPT/HCPCS: 81003

== ENCOUNTER 2023-04-14 12:25 | Outpatient (OUT) | payer OTHER, SELFPAY ==
--- NOTE | 2023-04-14 12:33 | CT_ITS ---
[address] [address] Patient Name: AYSHA ABRAHAM MRN: [id number] date: 1945 Sex: F Assigned Patient Location: CT Current Patient Location: CT Accession/Order Number: [id number] Exam Date: 04/14/2023 12:38 Report Date: 04/14/2023 13:13 At the request of: SHAIKH CUBA Procedure: CT abdomen pelvis wo con EXAM: CT abdomen pelvis wo con HISTORY: right flank pain r10.9 COMPARISON: 09/20/2022 TECHNIQUE: Axial CT images were obtained of the abdomen and pelvis without intravenous contrast. Multiplanar reconstructions were performed. ABDOMEN/PELVIS FINDINGS: Lower Chest: Unremarkable. Liver: Hepatic steatosis is present. The liver is enlarged measuring 20 cm in craniocaudal dimension. Biliary/Gallbladder: Prior cholecystectomy. Pancreas: Unremarkable. Spleen: Unremarkable. Adrenal Glands: Unremarkable. Kidneys: No renal or ureteral calculus is identified. There is no hydronephrosis. Gastrointestinal/Peritoneum: No acute abnormality. Mild colonic diverticulosis is present. The appendix is unremarkable. No free air or free fluid. Vascular: Moderate scattered atherosclerotic calcifications are present. Lymph Nodes: No enlarged lymph nodes by CT size criteria. Pelvic Organs: Unremarkable. Bladder: Unremarkable. Bones: No acute osseous abnormality. Mild multilevel degenerative changes are present in the visualized spine. Soft tissues: There is a small anterior abdominal wall hernia present containing fat measuring 2.1 x 1.7 cm in the upper abdomen. A tiny fat-containing umbilical hernia is also present. CT/CT abdomen pelvis wo con IMPRESSION: 1. No acute abnormality of the abdomen and pelvis. 2. Hepatic steatosis and hepatomegaly. 3. Prior cholecystectomy. 4. Mild colonic diverticulosis. 5. Small fat-containing anterior abdominal wall hernia. Electronically authenticated by: TIFFANIE MOSCOSO Date: 04/14/2023 13:13
[2023-04-14 13:41] LABS: Basophils Absolute Auto 0.1 10^3/uL (0.0-0.1); Basophils Percent Auto 0.7 % (0.2-2.0); Eosinophils Absolute Auto 0.2 10^3/uL (0.0-0.7); Eosinophils Percent Auto 2.6 % (0.9-7.0); Hematocrit 39.9 % (36.0-48.0); Hemoglobin 13.1 g/dL (12.0-16.0); Immature Granulocytes Abs Auto 0.04 10^3/uL (0.00-0.03); Immature Granulocytes Pct Auto 0.4 % (0.0-0.5); Lymphocytes Absolute Auto 2.2 10^3/uL (1.2-3.8); Mean Corpuscular HGB Conc 32.8 g/dL (29.9-35.2); Mean Corpuscular Hemoglobin 29.3 pg (26.7-34.0); Mean Corpuscular Volume 89.3 fL (81.0-99.0); Mean Platelet Volume 10.9 fL (9.5-13.5); Monocytes Absolute Auto 0.8 10^3/uL (0.3-0.8); Monocytes Percent Auto 8.2 % (1.7-12.0); Neutrophils Absolute Auto 6.1 10^3/uL (1.4-6.5); Neutrophils Percent Auto 65.1 % (43.0-75.0); Platelet Count 255 10^3/uL (150-450); Red Blood Count 4.47 10^6/uL (4.20-5.40); Red Cell Distribution Width 13.2 % (11.0-15.0); White Blood Count 9.4 10^3/uL (4.0-11.0)
[2023-04-14 14:14] LABS: Alanine Aminotransferase 24 U/L (14-59); Albumin Globulin Ratio 0.8; Albumin Level 3.8 g/dL (3.4-5.0); Alkaline Phosphatase 84 U/L (46-116); Anion Gap 14.8; Aspartate Amino Transferase 16 U/L (15-37); BUN Creatinine Ratio 30.2; Bilirubin Total 0.5 mg/dL (0.2-1.0); Calcium 9.3 mg/dL (8.5-10.1); Carbon Dioxide 27.5 mmol/L (21.0-32.0); Chloride 103 mmol/L (98-107); Chol HDL Ratio 2.9; Cholesterol 189 mg/dL (<=200); Estimated GFR (African America >60 (>=60); Estimated GFR (Non-African Ame >60 (>=60); Globulin 4.6 g/dL; Glucose 99 mg/dL (74-106); HDL Cholesterol 66 mg/dL (40-60); Potassium 3.3 mmol/L (3.5-5.1); Sodium 142 mmol/L (136-145); TSH W/ REFLEX FT4 1.862 uIU/mL (0.358-3.740); Total Protein 8.4 g/dL (6.4-8.2); Triglycerides 128 mg/dL (<=150); VLDL CHOLESTEROL 25.6 mg/dL
== END 2023-04-14 12:26 | disposition home or self-care (01) ==
LOC: CT 12:25
PROVIDERS: PCP Internal Medicine; Visit Provider Internal Medicine
DX: R10.9 Unspecified abdominal pain (principal); K57.90 Diverticulosis of intestine, part unspecified, without perforation or abscess without bleeding; K43.9 Ventral hernia without obstruction or gangrene
CPT/HCPCS: 36415; 74176; 80053; 80061; 84443; 85025

== ENCOUNTER 2023-06-29 22:09 | Emergency (ER) | payer OTHER, SELFPAY ==
[2023-06-29 22:17] VITALS: BP 124/84; PULSE 96; TEMP 36.7; O2SAT 96
--- OUTSIDE RECORDS SUMMARY | 2023-06-29 22:26 | XMS_ITS | CCD ---
Author Organization [facility] Care Team Providers Care Typewriter Mechanic Name Role Phone Joy BROWNE DORIS Attending Unavailable SACHA SCHROEDER Referring Unavailable ANDREE PETERS Admitting Unavailable KHURIANDREE Attending Unavailable VLASTARISJONATHAN Consulting Unavailable LORETTA DURAN Attending Unavailable BSHARA, UZMA Admitting Unavailable BSHARA, UZMA Attending Unavailable ALYAFI, AMR Consulting Unavailable PROVIDER, UNKNOWN Attending Unavailable PROVIDER, UNKNOWN Admitting Unavailable SACHA SCHROEDER Primary Care Unavailable Sacha Schroeder MD Primary Care Provider Sacha Schroeder MD Primary Care Provider PAOLA, DR TREVOR Hamilton Admitting Unavailable GUEVARA, DR TREVOR Hamilton Attending Unavailable GUEVARA, DR TREVOR Hamilton Primary Care Unavailable ZIEBMARJ, DR CAMILLE Pryor Consulting Unavailable GUEVARA, DR TREVOR Hamilton Consulting Unavailable GUEVARA, DR TREVOR Hamilton Primary Care Unavailable GUEVARA, DR TREVOR Hamilton Admitting Unavailable GUEVARA, DR TREVOR Hamilton Attending Unavailable HOVLAND, DR MICHELE Vizcarra Consulting Unavailable GUEVARA, DR TREVOR Hamilton Consulting Unavailable GUEVARA, DR TREVOR Hamilton Admitting Unavailable GUEVARA, DR TREVOR Hamilton Attending Unavailable ZIEBER, DR CAMILLE Pryor Consulting Unavailable GUEVARA, DR TREVOR Hamilton Primary Care Unavailable GUEVARA, DR TREVOR Hamilton Consulting Unavailable REQUEST, DR LOW LISTED Attending Unavaila ble REQUEST, DR LOW LISTED Consulting Unavaila ble REQUEST, DR LOW LISTED Admitting Unavaila ble GUEVARA, DR TREVOR Hamilton Primary Care Unavailable Trevor Guevara Unavailable Sacha Schroeder MD Primary Care Provider SHAIKH SILVA Primary Care Physician [phone] Prince Cabello Attending Unavaila ble NONE, XXXX Referring Unavailable Prince Cabello Attending Viridiana yoo NONE, XXXX Referring Unavailable Prince Cabello Referring Unavaila Prince La Attending Prince Martinez Admitting UnavailMD Nacho Norman Consulting Unavailable Nacho ADAMS Consulting Unavailable Nacho ADAMS Consulting Unavailable Augie MCDOWELL Attending Unavailable Shaikh Silva MD Unavailable Shaikh Silva MD Primary Care Provider SHAIKH SILVA Attending Unavailable SHAIKH SILVA Attending Unavailable SHAIKH SILVA Attending Unavailable LETHA GÓMEZ Attending Unavailable Allergies Allergy Classification Reported Allergen(s) Allergy Type Date of Onset Reaction(s) Facility (2 sources) Sulfonamides (Antibiotic); Translations: [SULFA (SULFONAMIDE ANTIBIOTICS)] Propensity to adverse reactions to drug (disorder) 03-28-19 04 [facility] Repository (2 sources) OTHER; Translations: [OTHER] Propensity to adverse reactions (disorder) 02-03-20 06 [facility] Repository (7 sources) atorvastatin; Translations: [ATORVASTATIN] Drug Allergy 06-18-19 16 [facility]) ezetimibe; Translations: [EZETIMIBE] Drug Allergy 05-21-19 17 [facility] Repository (7 sources) Hmg-Coa Reductase Inhibitors (Statins); Translations: [STATINS] Propensity to adverse reactions to drug (disorder) 09-05-19 08 Myopathy [facility] Repository (7 sources) Nitroglycerin; Translations: [NITROGLYCERIN] Drug Allergy 06-18-19 16 [facility] Repository (7 sources) pitavastatin; Translations: [PITAVASTATIN] Drug Allergy 09-02-19 17 [facility] ([facility] sources) rosuvastatin; Translations: [ROSUVASTATIN] Drug Allergy 09-04-19 16 [facility] ([facility] sources) Simvastatin; Translations: [SIMVASTATIN] Drug Allergy 06-18-19 16 [facility] (7 sources) Sulfonamides (Antibiotic); Translations: [SULFA ANTIBIOTICS] Propensity to adverse reactions to drug (disorder) 09-02-19 08 Swelling [facility] Repository (7 sources) BANDAGE TAPE; Translations: [BANDAGE TAPE] Propensity to adverse reactions (disorder) 09-17-19 15 [facility] Repository (1 source) Cephalosporins (Antibiotic) Drug allergy (disorder) [facility] Repository (1 source) Penicillins Drug allergy (disorder) 08-31-19 13 [facility] Repository (5 sources) Penicillin; Translations: [penicillin] Drug Allergy hives, Eruption of skin (disorder) [facility] (4 sources) Cephalosporins (Antibiotic) Drug Intolerance 01-10-20 13 [facility] Work Phone: (4 sources) Penicillin G Drug Allergy 07-21-19 23 Rash [facility] Healthcare Medications Current Medications Medication Drug Class(es) Dates Sig (Normalized) Sig (Original) [id number] 200 actuat albuterol 0.09 mg/actuat metered dose inhaler (18 sources) beta2-Adrenergic Agonist Start: 01-20-2018 take 2 [...] every 4 hours as needed. 0 Active amLODIPine 5 mg oral tablet (16 sources) Dihydropyridine Calcium Channel Barbara Start: 04-11-2023 End: 07-10-2023 take 2 tablets by mouth in the morning amLODIPine (Norvasc) 5 MG tablet Indications: Hypertension Take 2 tablets (10 mg) by mouth in the morning. 180 tablet 0 04/11/2023 07/10/2023 Active Start: 12-16-2022 amlodipine Ref ills(s) 0 Start Date: 12/16/22 Status: Ordered Start: [...] aspirin 81 mg delayed release oral tablet (13 sources) Platelet Aggregation Inhibitor, Nonsteroidal Anti-inflammatory Drug Start: 12-16-2022 aspirin 81 mg Oral EC Tab Refills(s) 0 Start Date: 12/16/22 Status: Ordered Start: 10-14-2016 ASPIRIN 81 MG chewable tablet Chew 81 mg 1 (one) time. 0 10/14/2016 Active take 1 tablet by paulino th once daily at mealtime aspirin 81 MG tablet Indications: Aortic valve disorders , Heart valve replaced by other means , CAD (coronary artery disease) , Shortness of breath Take 81 mg by mouth daily. 0 Active buPROPion hydrochloride 75 mg oral tablet (6 sources) Aminoketone Start: 10-01-2016 take 1 tablet by mouth twice daily buPROPion (WELLBUTRIN) 75 MG tablet TAKE 1 TABLET BY MOUTH TWICE DAILY 180 Tablet 3 10/01/2016 Active carvedilol 25 mg oral tablet (6 sources) alpha-Adrenergic Barbara, beta-Adrenergic Barbara Start: 01-09-2018 take 1 tablet by mouth twice daily CARvedilol (COREG) 25 MG tablet TAKE 1 TABLET BY MOUTH TWICE DAILY 180 Tablet 3 01/09/2018 Active cholecalciferol 0.05 mg oral tablet (6 sources) Vitamin D Start: 11-20-2015 Cholecalciferol (VITAMIN D) 2000 UNITS TABS Take 4,000 Units by mouth daily. 30 Tablet 12 11/20/2015 Active Citalopram (7 sources) Serotonin Reuptake Inhibitor Start: 12-16-2022 citalopram Refills(s) 0 Start Date: 12/16/22 Status: Ordered End: 04-11-2023 take 1 tablet by mouth once daily citalopram (CeleXA) 40 MG tablet Take 40 mg by mouth 1 (one) time each day at the same time. 0 04/11/2023 Discontinued (Therapy completed) clindamycin 300 mg oral capsule (1 source) Lincosamide Antibacterial Start: 06-14-2022 take 1 capsule by mouth every twelve hours Clindamycin HCl 300 MG 1 capsule Orally every 12 hrs for 7 days May, Active clopidogrel 75 mg oral tablet (4 sources) P2Y12 Platelet Inhibitor Start: 08-02-2017 take 1 tablet by mouth once daily clopidogrel (PLAVIX) 75 MG tablet TAKE 1 TABLET BY MOUTH DAILY 270 Tablet 0 08/02/2017 Active furosemide 20 mg oral tablet (6 sources) Loop Diuretic Start: 10-11-2017 take 1 tablet by mouth once daily furosemide (LASIX) 20 MG tablet TAKE 1 TABLET BY MOUTH DAILY 100 Tablet 3 10/11/2017 Active glimepiride 1 mg oral tablet (6 sources) Sulfonylurea Start: 12-06-2017 take 2 tablets by mouth once daily at breakfast, then take 1 tablet by mouth once daily at dinner glimepiride (AMARYL) 1 MG tablet TAKE 2 TABLETS BY MOUTH DAILY with breakfast and take 1 tablet daily with dinner 540 Tablet 1 12/06/2017 Active hydroCHLOROthiazide 25 mg / losartan potassium 100 mg oral tablet (5 sources) Thiazide Diuretic, Angiotensin 2 Receptor Barbara Start: 03-28-2023 End: 06-26-2023 take 1 tablet by mouth in the morning losartan-hydroCH LOROthiazide (Hyzaar) 100-25 MG tablet Indications: Primary hypertension (CMS/HCC) Take 1 tablet by mouth in the morning. 90 tablet 0 03/28/2023 06/26/2023 Active take 1 tablet by paulino th every twenty-four hours Losartan Potassium-HCTZ 100-25 MG 1 tabl et Orally Once a day Active hydrocortisone 25 mg/ml topical cream (1 source) Corticosteroid Start: 06-11-2022 Anusol-HC 2.5 % 1 application Externally Twice a day for 30 days May, Active levothyroxine sodium 0.05 mg oral tablet (8 sources) l-Thyroxine Start: 03-28-2023 End: 06-26-2023 take 1 tablet by mouth once daily levothyroxine (Synthroid, Levoxyl) 50 MCG tablet Indications: Other specified hypothyroidism (CMS/HCC) Take 1 tablet (50 mcg) by mouth 1 (one) time each day at the same time 90 tablet 0 03/28/2023 06/26/2023 Active Start: 12-16-2022 levothyroxine Refills(s) 0 Start Date: 12/16/22 Status: Ordered Start: 03-03-2022 take 1 tablet by paulino th once daily in the morning Levothyroxine Sodium 50 MCG 1 tablet in the morning on an empty stomach Orally Once a day for 90 days Feb, Active lisinopril 30 mg oral tablet (6 sources) Angiotensin Converting Enzyme Inhibitor Start: 03-29-2017 take 1 tablet by mouth once daily lisinopril (PRINIVIL, ZESTRIL) 30 MG tablet Take 1 Tablet by mouth daily. 90 Tablet 3 03/29/2017 Active Losartan (3 sources) Angiotensin 2 Receptor Barbara Start: 12-16-2022 losartan Refills(s) 0 Start Date: 12/16/22 Status: Ordered naproxen sodium 220 mg oral tablet (4 sources) Nonsteroidal Anti-inflammatory Drug take 1 tablet by mouth every twelve hours naproxen sodium (Aleve) 220 MG tablet Take 220 mg by mouth every 12 (twelve) hours. 0 Active nitroglycerin 0.4 mg sublingual tablet (6 sources) Nitrate Vasodilator nitroglycerin (NITROSTAT) 0.4 MG sublingual tablet 0.4 mg by Sublingual route every 5 minutes as needed. Maximum of 3 tablets in 15 minutes. 0 Active omeprazole 20 mg delayed release oral capsule (6 sources) Proton Pump Inhibitor omeprazole (PRILOSEC) 20 MG capsule Indications: Other iron deficiency anemia , Unspecified essential hypertension , Shortness of breath Take 20 mg by mouth. 0 Active oxyCODONE hydrochloride 5 mg oral tablet (1 source) Opioid Agonist Start: 04-11-2023 End: 04-16-2023 take 1 tablet by mouth three times daily as needed for pain oxyCODONE (Roxicodone) 5 MG immediate release tablet Indications: Acute right flank pain Take 1 tablet (5 mg) by mouth 3 (three) times a day as needed for severe pain for up to 5 days 15 tablet 0 04/11/2023 04/16/2023 Active pitavastatin calcium 2 mg oral tablet (6 sources) HMG-CoA Reductase Inhibitor Start: 06-16-2016 take 1 tablet by mouth at bedtime Pitavastatin Calcium 2 MG TABS Take 1 Tablet by mouth at bedtime. 30 Tablet 3 06/16/2016 Active sertraline 100 mg oral tablet (6 sources) Serotonin Reuptake Inhibitor Start: 01-20-2018 take 1.5 tablets by mouth once daily sertraline (ZOLOFT) 100 MG tablet Take 1.5 Tablets by mouth daily. 135 Tablet 3 01/20/2018 Active simvastatin 20 mg oral tablet (8 sources) HMG-CoA Reductase Inhibitor Start: 03-28-2023 End: 06-26-2023 take 1 tablet by mouth at bedtime simvastatin (Zocor) 20 MG tablet Indications: Other hyperlipidemia (CMS/HCC) Take 1 tablet (20 mg) by mouth at bedtime 90 tablet 0 03/28/2023 06/26/2023 Active Start: 12-16-2022 simvastatin Re fills(s) 0 Start Date: 12/16/22 Status: Ordered take 1 tablet by paulino th every twenty-four hours Simvastatin 20 MG 1 tablet in the evening Orally Once a day Active tiotropium (6 sources) Anticholinergic Tiotropium Bromi de Monohydrate (SPIRIVA HANDIHALER INHALATION) Inhale. 0 Active triamcinolone acetonide 0.25 mg/ml topical cream (6 sources) Corticosteroid Start: 6 triamcinolone 0.025 % cream Apply topically 2 times daily. Apply thin layer to affected area. 1 Tube 4 07/30/2015 Active ubidecarenone 200 mg oral capsule (6 sources) Start: 6 take 1 capsule by mouth once daily Coenzyme Q10 200 MG CAPS Take 1 Capsule by mouth daily. 30 Capsule 12 09/04/2015 Active vitamin b12 0.1 mg oral tablet (6 sources) Vitamin B12 Start: 6 take 1 tablet by mouth once daily vitamin B-12 (CYANOCOBALAMIN) 100 MCG tablet TAKE 1 TABLET BY MOUTH DAILY 30 Tablet 6 04/11/2015 Active Problems Active Problems Problem Classification Problem Date Documented Da te Episodic/Chronic Abdominal pain (13 sources) Indigestion; Translations: [Epigastric pain] Onset: 01-31-2017 01-31-2017 Episodic Acute myocardial infarction (7 sources) Non-ST elevation (NSTEMI) myocardial infarction; Translations: [Myocardial infarction] Onset: 06-16-2016 06-16-2016 Chronic Chronic kidney disease (1 source) Chronic kidney disease, stage 3 (moderate); Translations: [Chronic kidney disease, stage 3 (moderate)] Onset: 03-29-2018 Chronic Chronic obstructive pulmonary disease and bronchiectasis (7 sources) Chronic obstructive pulmonary disease with (acute) exacerbation; Translations: [Chronic obstructive lung disease] Onset: 06-28-2013 07-11-2015 Chronic Conduction disorders (6 sources) Right bundle branch block; Translations: [Unspecified right bundle-branch block] Onset: 09-11-2007 09-11-2007 Chronic Congestive heart failure; nonhypertensive (2 sources) Heart failure, unspecified; Translations: [Heart failure, unspecified] Onset: 03-24-2018 Chronic Coronary atherosclerosis and other heart disease (20 sources) Unstable angina; Translations: [Atherosclerotic heart disease of [place] coronary artery with unstable angina pectoris] Onset: 06-12-2015 04-16-2021 Chronic Diabetes mellitus without complication (6 sources) Type 2 diabetes mellitus; Translations: [Type 2 diabetes mellitus without complications] 09-29-2015 Chronic Disorders of lipid metabolism (15 sources) Hyperlipidemia; Translations: [Hyperlipidemia, unspecified] Onset: 05-16-2003 07-11-2015 Chronic Disorders of teeth and jaw (1 source) Periapical abscess without sinus Episodic Diverticulosis and diverticulitis (6 sources) Diverticulitis of large intestine; Translations: [Diverticulitis of large intestine without perforation or abscess without bleeding] Onset: 02-23-2017 02-24-2017 Chronic Essential hypertension (19 sources) Essential (primary) hypertension; Translations: [Essential hypertension] Onset: 09-11-2007 06-17-2018 Chronic Fluid and electrolyte disorders (2 sources) Hyperkalemia; Translations: [Hypokalemia] Onset: 03-24-2018 Episodic Heart valve disorders (18 sources) H/O: heart valve recipient; Translations: [Presence [...] Episodic Other diseases of bladder and urethra (6 sources) Vesicocolic fistula; 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] Onset: 02-23-2017 04-16-2021 Chronic Other liver diseases (6 sources) Steatosis of liver; Translations: [Fatty (change [...] MASS AND LUMP NECK] Onset: 03-30-2022 Episodic Otitis media and related conditions (4 sources) Acute suppurative otitis media without spontaneous rupture of ear drum; Translations: [Acute suppurative otitis media without spontaneous rupture of ear drum, left ear] Onset: 03-14-2023 03-14-2023 Episodic Substance-related disorders (1 source) Nicotine dependence, unspecified, uncomplicated; Translations: [Nicotine dependence, unspecified, uncomplicated] Onset: 03-29-2018 Chronic Thyroid disorders (13 sources) Non-toxic uninodular goiter; Translations: [Nontoxic single thyroid nodule] Onset: 03-22-2014 06-17-2018 Chronic Past or Other Problems Problem Classification Problem Date Documented Da te Episodic/Chronic Acute and unspecified renal failure (1 source) Acute kidney failure, unspecified; Translations: [Acute kidney failure, unspecified] Onset: 03-29-2018 Episodic Biliary tract disease (6 sources) Biliary calculus; Translations: [Calculus of gallbladder without cholecystitis without obstruction] Onset: 08-07-2013 08-07-2013 Episodic Conditions associated with dizziness or vertigo (18 sources) Vertigo; Translations: [Dizziness and giddiness] Onset: 06-28-2013 06-28-2013 Episodic Coronary atherosclerosis and other heart disease (1 source) History of cardiac catheterization; Translations: [Presence of coronary angioplasty implant and graft] Onset: 05-20-2016 05-20-2016 Episodic Deficiency and other anemia (6 sources) Anemia; Translations: [Anemia, unspecified] Onset: 01-31-2017 01-31-2017 Episodic Gastrointestinal hemorrhage (12 sources) Melena; Translations: [Melena] Onset: 02-20-2014 02-20-2014 Episodic Menstrual disorders (6 sources) Disorder of female genital organs; Translations: [Other specified irregular menstruation] Onset: 05-02-2014 Resolved: 05-02-2014 05-02-2014 Chronic Nonspecific chest pain (7 sources) Chest pain, unspecified; Translations: [Chest pain] Onset: 06-14-2016 06-14-2016 Episodic Osteoarthritis (4 sources) Arthritis of shoulder region joint; Translations: [Primary osteoarthritis, unspecified shoulder] Onset: 07-20-2022 Resolved: 07-20-2022 07-20-2022 Chronic Other connective tissue disease (4 sources) Trochanteric bursitis of left hip; Translations: [Trochanteric bursitis, left hip] Onset: 07-20-2022 Resolved: 07-20-2022 07-20-2022 Episodic Other injuries and conditions due to external causes (6 sources) Late effect of injury; Translations: [Late effect of injury] Onset: 10-10-2015 10-10-2015 Episodic Other liver diseases (1 source) Abnormal levels of other serum enzymes; Translations: [Abnormal levels of other serum enzymes] Onset: 03-24-2018 Episodic Other non-traumatic joint disorders (4 sources) Derangement of left shoulder joint; Translations: [Other specific joint derangements of left shoulder, not elsewhere classified] Onset: 07-20-2022 Resolved: 07-20-2022 07-20-2022 Chronic Other non-traumatic joint disorders (6 sources) Hand joint stiff; Translations: [Stiffness of unspecified hand, not elsewhere classified] Onset: 10-10-2015 10-10-2015 Episodic Other non-traumatic joint disorders (4 sources) Arthralgia of the pelvic region and thigh; Translations: [Pain in unspecified hip] Onset: 07-20-2022 Resolved: 07-20-2022 07-20-2022 Episodic Other skin disorders (6 sources) Adherent scar; Translations: [Scar conditions and fibrosis of skin] Onset: 10-10-2015 10-10-2015 Episodic Other skin disorders (4 sources) Mass of neck; Translations: [Localized swelling, mass and lump, neck] Onset: 07-20-2022 07-20-2022 Episodic Rehabilitation care; fitting of prostheses; and adjustment of devices (6 sources) Patient encounter status; Translations: [Other physical therapy] Onset: 04-03-2014 04-03-2014 Episodic Residual codes; unclassified (1 source) Tobacco use; Translations: [Tobacco use] Onset: 03-24-2018 Episodic Residual codes; unclassified (6 sources) Other specified health status; Translations: [Other drug allergy] Onset: 09-01-2016 09-01-2016 Episodic Respiratory failure; insufficiency; arrest (adult) (1 source) Acute respiratory failure with hypoxia; Translations: [Acute respiratory failure with hypoxia] Onset: 03-24-2018 Episodic Spondylosis; intervertebral disc disorders; other back problems (4 sources) Cervical spondylosis; Translations: [Spondylosis without myelopathy or radiculopathy, cervical region] Onset: 07-20-2022 Resolved: 07-20-2022 07-20-2022 Chronic Syncope (6 sources) Vasovagal symptom; Translations: [Syncope and collapse] Onset: 07-11-2015 07-11-2015 Episodic Results Test Name Value Interpretation Reference Range Facility [facility] UA (CLEAN/CATCH) MICROSC OPIC IF INDICATEon 04-11-2023 BILIRUBIN URINE Negative NEGATIVE [facility] BLOOD URINE Negative NEGATIVE [facility] Clarity (U) CLEAR CLEAR [facility] Color (U) LT. YELLOW YELLOW [facility] GLUCOSE URINE UA Negative NEGATIVE mg/dL [facility] Ketones Ql (U) Negative NEGATIVE mg/dL [facility] Leukocyte esterase Test strip Ql (U) Negative NEGATIVE [facility] NITRITE URINE Negative NEGATIVE [facility] pH (U) 5.5 [pH] 5.0 - 9.0 [facility] PROTEIN URINE Negative NEG/TRACE mg/dL [facility] SPECIFIC GRAVITY URINE 1.025 1.005 - 1.025 [facility] URINE MICROSCOPIC INDICATED NO [facility] UROBILINOGEN URINE 0.2 EU/dL 0.2 - 1.0 EU/dL [facility] Heart and Vascular Office/Cl inic Noteon 01-27-2023 Heart and Vascular Office/Clinic Note [...] patient's main reason for consultation was the senior care of her dulser. She has a history of a spot [...] with voice recognition artificial intelligence software, specifically [employer], [employer] and or [employer]. Substitutions may have occurred due to the inherent limitations of voice recognition and artificial intelligence software. Documentation services were performed after patient or guardian consented to allow [employer] to record this visit. BERTRAM security operations specialist and provider reviewed before signing. BERTRAM: Mary Gardner Follow-up No qualifying data available Problem List/Past Medical History Ongoing No qualifying data Historical Coronary artery disease Hyperlipidemia Hypertension Hypertension Procedure/Surgical History Cholecystectomy. Medications amlodipine aspirin 81 mg Oral EC Tab citalopram levothyroxine losartan simvastatin Allergies penicillin (Rash) Social History Tobacco Former smoker, quit more than 30 days ago Tobacco Use:., 01/27/2023 [facility] Comment on above: Result Comment: Elec tronically Signed By: Destiney DE LEÓN, Prince Castro\.br\Date and Time Signed: 01/27/23 19:48 EST\.br\Electronically Co-Signed By: Mary Gardner\Date and Time Co-Signed: 01/27/23 15:10 EST Physician Orderon 01-27-2023 Physician Order [id number]# 1.00TIFF [facility] Heart and Vascular Office/Cl inic Noteon 01-23-2023 [...] artery disease) (I25.10: Atherosclerotic heart disease of [place] coronary artery without angina pectoris) Sarina Villegas [...] hear. Follow up in 6 weeks in [place]. Portions of this record may have been created with voice recognition artificial intelligence software, specifically [employer], [employer] and or [employer]. Substitutions may have occurred due to the inherent limitations of voice recognition and artificial intelligence software. Documentation services were performed after patient or guardian consented to allow [employer] to record this visit. BERTRAM security operations specialist and provider reviewed before signing. BERTRAM: Abran Nick. Follow-up No qualifying data available Problem List/Past Medical History Ongoing No qualifying data Historical Coronary artery disease Hyperlipidemia Hypertension Hypertension Procedure/Surgical History Cholecystectomy. Medications amlodipine aspirin 81 mg Oral EC Tab citalopram levothyroxine losartan simvastatin Allergies penicillin (Rash) Social History Tobacco Former smoker, quit more than 30 days ago Tobacco Use:., 12/16/2022 Normal [facility] Comment on above: Result Comment: Elec tronically Signed By: Destiney DE LEÓN, Prince Castro\.br\Date and Time Signed: 01/23/23 19:23 EST\.br\Electronically Co-Signed By: Michelle Nick\.br\Date and Time Co-Signed: 12/16/22 14:43 EDT\.br\Electronically Co-Signed By: Michelle Nick\.br\Date and Time Co-Signed: 12/16/22 14:44 EDT Consent for Treatmenton 11-0 Consent for Treatment [id number]#1 .00TIFF Normal [facility] US Carotid Duplex Bilateralo n 01-05-2023 [...] Criteria Committee. Vascular Medicine 2020; https://journals.rylee pub.com/doi/full/10.1 [id number] Ordering Provider: Prince Cabello FINAL REPORT Dictated: 01/05/2023 10:56 am Carlos Mcmillan MD, V. Signed (Electronic Signature): 01/05/2023 10:56 am Signed by: Carlos Mcmillan MD, V. Transcribed by: SALVATORE Technologist: [place] Normal [facility] Transfer Inon 12-22-2022 Transfer In [id number]#1 .00TIFF [facility] Transfer In [id number] 0 [id number]#1 .00TIFF [facility] Insurance Correspondenceon 1 Insurance Correspondence [id number]# 1.00TIFF [facility] Physician Orderon 12-17-2022 Physician Order [id number]# 1.00TIFF [facility] Consent for Treatmenton 11-28 Consent for Treatment [id number]#1 .00TIFF [facility] US THYROIDon 03-30-2022 US THYROID EXAMINATION: US [...] tumor or atypical lymph node TI-RADS: The [employer] TI-RADS committee's white paper recommendations for thyroid lesions classified as TR3 (mildly suspicious) are listed below: > 1.5 cm. Follow-up ultrasound in 1, 3, and 5 years. > 2.5 cm. FNA. J. Am Janelle Radiol 2017;14:587-595. Electronically authenticated by: MICHELE GIBSON Date: 2022-03-30 11:59 Normal [facility] CT NECK ST W CONon 2 [...] CAMILLE CARTER Date: 2022-02-12 18:07 Normal [facility] CBC AUTO DIFFon 01-20-2022 BASO # 0.1 103/ul Normal 0.0-0.1 [facility] Comment on above: Performed By: #### D ATCBC #### [facility] [address] [place] [address] Dr. Cabrera Gifford Basophils/100 WBC (Bld) 0.7 % Normal 0.2-2.0 [facility] Comment on above: Performed By: #### D ATCBC #### [facility] [address] [place] [address] Dr. Cabrera Gifford EO # 0.3 103/ul Normal 0.0-0.7 [facility] Comment on above: Performed By: #### D ATCBC #### [facility] [address] [place] [address] Dr. Cabrera Gifford Eosinophils/100 WBC (Bld) 3.7 % Normal 0.9-7.0 [facility] Comment on above: Performed By: #### D ATCBC #### [facility] [address] [place] [address] Dr. Cabrera Gifford Erythrocyte distribution width (RBC) [Ratio] 12.5 % Normal 11.0-15.0 [facility] Comment on above: Performed By: #### D ATCBC #### [facility] [address] [place] [address] Dr. Cabrera Gifford Hematocrit (Bld) [Volume fraction] 38.9 % Normal 36.0-48.0 [facility] Comment on above: Performed By: #### D ATCBC #### [facility] [address] [place] [address] Dr. Cabrera Gifford Hemoglobin (Bld) [Mass/Vol] 12.8 g/dL Normal 12.0-16.0 [facility] Comment on above: Performed By: #### D ATCBC #### [facility] [address] [place] [address] Dr. Cabrera Gifford IG # 0.02 10e3/ul Normal 0.00-0.03 [facility] Comment on above: Performed By: #### D ATCBC #### [facility] [address] [place] [address] Dr. Cabrera Gifford IG % 0.3 % Normal 0.0-0.5 [facility] Comment on above: Performed By: #### D ATCBC #### [facility] [address] [place] [address] Dr. Cabrera Gifford LYMPH # 1.4 103/ul Normal 1.2-3.8 [facility] Comment on above: Performed By: #### D ATCBC #### [facility] [address] [place] [address] Dr. Cabrera Gifford Lymphocytes/100 WBC (Bld) 20.4 % Critically low 20.5-60.0 [facility] Comment on above: Performed By: #### D ATCBC #### [facility] [address] [place] [address] Dr. Cabrera Gifford MCH (RBC) [Entitic mass] 29.1 pg Normal 26.7-34.0 [facility] Comment on above: Performed By: #### D ATCBC #### [facility] [address] [place] [address] Dr. Cabrera Gifford MCHC (RBC) [Mass/Vol] 32.9 g/dL Normal 29.9-35.2 [facility] Comment on above: Performed By: #### D ATCBC #### [facility] [address] [place] [address] Dr. Cabrera Gifford MCV (RBC) [Entitic vol] 88.4 fL Normal 81.0-99.0 [facility] Comment on above: Performed By: #### D ATCBC #### [facility] [address] [place] [address] Dr. Cabrera Gifford MONO # 0.6 103/ul Normal 0.3-0.8 [facility] Comment on above: Performed By: #### D ATCBC #### [facility] [address] [place] [address] Dr. Cabrera Gifford Monocytes/100 WBC (Bld) 8.2 % Normal 1.7-12.0 [facility] Comment on above: Performed By: #### D ATCBC #### [facility] [address] [place] [address] Dr. Cabrera Gifford NEUT # 4.5 103/ul Normal 1.4-6.5 [facility] Comment on above: Performed By: #### D ATCBC #### [facility] [address] [place] [address] Dr. Cabrera Gifford Neutrophils/100 WBC (Bld) 66.7 % Normal 43.0-75.0 [facility] Comment on above: Performed By: #### D ATCBC #### [facility] [address] [place], [place] [id number] Dr. Cabrera Gifford Platelet mean volume (Bld) [Entitic vol] 10.8 fL Normal 9.5-13.5 [facility] Comment on above: Performed By: #### D ATCBC #### [facility] [address] [place] [address] Dr. Cabrera Gifford PLT 210 103/ul Normal 150-450 [facility] Comment on above: Performed By: #### D ATCBC #### [facility] [address] [place] [address] Dr. Cabrera Gifford RBC 4.40 106/ul Normal 4.20-5.40 [facility] Comment on above: Performed By: #### D ATCBC #### [facility] [address] [place] [address] Dr. Cabrera Gifford WBC 6.8 103/ul Normal 4.0-11.0 [facility] Comment on above: Performed By: #### D ATCBC #### [facility] [address] [place] [address] Dr. Cabrera Gifford EDWIN- BMP WITH LIPIDon 2021 Anion gap [Moles/Vol] 11.8 mmol/L Normal [facility] Comment on above: Performed By: #### D ATBMP #### [facility] [address] [place] [address] Dr. Cabrera Gifford Calcium [Mass/Vol] 9.4 mg/dL Normal 8.5-10.1 [facility] Comment on above: Performed By: #### D ATBMP #### [facility] [address] [place] [address] Dr. Cabrera Gifford Chloride [Moles/Vol] 102 mmol/L Normal 98-107 [facility] Comment on above: Performed By: #### D ATBMP #### [facility] [address] [place] [address] Dr. Cabrera Gifford Cholesterol [Mass/Vol] 161 mg/dL Normal <=200 [facility] Comment on above: Performed By: #### D ATBMP #### [facility] [address] [place] [address] Dr. Cabrera Gifford Cholesterol in HDL [Mass/Vol] 66 mg/dL Critically high 40-60 [facility] Comment on above: Performed By: #### D ATBMP #### [facility] [address] [address] [address] Cabrera Gifford Cholesterol in LDL [Mass/Vol] 77.2 mg/dL Normal [facility] Comment on above: Performed By: #### D ATBMP #### [facility] [address] [address] [address] Cabrera Gifford CO2 [Moles/Vol] 30.9 mmol/L Normal 21.0-32.0 [facility] Comment on above: Performed By: #### D ATBMP #### [facility] [address] [place] [address] Dr. Cabrera Gifford Creatinine [Mass/Vol] 0.79 mg/dL Normal 0.55-1.02 [facility] Comment on above: Performed By: #### D ATBMP #### [facility] [address] [place] [address] Dr. Cabrera Gifford EGFR-AF CZECH >60 Normal >=60 [facility] Comment on above: Performed By: #### D ATBMP #### [facility] [address] [place] [address] Dr. Cabrera Gifford EGFR-NON AF CZECH >60 Normal >=60 [facility] Comment on above: Performed By: #### D ATBMP #### [facility] [address] [address] [address] Cabrera Gifford Glucose [Mass/Vol] 103 mg/dL Normal 74-106 [facility] Comment on above: Performed By: #### D ATBMP #### [facility] [address] [address] [address] Cabrera Gifford HDL NORMAL > or = 60 mg/dl - LO W CARDIOVASCULAR RISK <40 mg/dl - HIGH CARDIOVASCULAR RISK Normal [facility] Comment on above: Performed By: #### D ATBMP #### [facility] [address] [place] [address] Dr. Cabrera Gifford LDL CALC NORMAL SEE BELOW Normal [facility] Comment on above: Result Comment: <100 mg/dl OPTIMAL 100 - 129 mg/dl NEAR OR ABOVE OPTIMAL 130 - 159 mg/dl BORDERLINE HIGH 160 - 189 mg/dl HIGH >190 mg/dl VERY HIGH Performed By: #### D ATBMP #### [facility] [address] [address] [address] Cabrera Gifford Potassium [Moles/Vol] 3.7 mmol/L Normal 3.5-5.1 [facility] Comment on above: Performed By: #### D ATBMP #### [facility] [address] [address] [address] Cabrera Gifford Sodium [Moles/Vol] 141 mmol/L Normal 136-145 [facility] Comment on above: Performed By: #### D ATBMP #### [facility] [address] [address] [address] Cabrera Gifford Triglyceride [Mass/Vol] 89 mg/dL Normal <=150 [facility] Comment on above: Performed By: #### D ATBMP #### [facility] [address] [address] [address] Cabrera Gifford Urea nitrogen [Mass/Vol] 17.0 mg/dL Normal 7.0-18.0 [facility] Comment on above: Performed By: #### D ATBMP #### [facility] [address] [address] [address] Cabrera Gifford Urea nitrogen/Creatinine [Mass ratio] 21.5 mg/mg Normal [facility] Comment on above: Performed By: #### D ATBMP #### [facility] [address] [address] [address] Cabrera Gifford VLDL CALC 17.8 mg/dL Normal [facility] Comment on above: Performed By: #### D ATBMP #### [facility] [address] [address] [address] Cabrera Gifford MG MAMM SCREEN 3D EVIE CADon 01-20-2022 MG MAMM SCREEN 3D EVIE CAD Patient: SARINA VILLEGAS Exam Date: 01/20/2022 : 1945 Gender:F Ordering : DR TREVOR GUEVARA M.D. Admission #: [id number] Family : Order #: [id number] CLICK HERE TO VIEW EXAM RADIOLOGY REPORT [...] No Treatments None Family Cancers None LOCATION: [facility] BREAST COMPOSITION: Scattered areas fibroglandular density. FINDINGS: [...] M.D. on 01/20/2022 at 13:29 Normal [facility] US CAROTID ART BILon 11-23-2 022 US CAROTID ART EVIE EXAMINATION: US [...] by: CAMILLE CARTER Date: 2022-01-20 16:26 Normal [facility] CNCOon 07-10-2018 CNCO Letter Text Normal [facility] CBC and Differentialon 07-07 Abs Baso <0.03 Normal <0.11 [facility] Comment on above: Performed By: #### P TT, NTBNP, HSTNT, CBCDIF, PT, CKCKMB, CMP #### [place] [address] Abs Grant 0.92 k/uL High <0.87 [facility] Comment on above: Performed By: #### P TT, NTBNP, HSTNT, CBCDIF, PT, CKCKMB, CMP #### [place] [address] Abs Neut 9.65 k/uL High 1.45-7.50 [facility] Comment on above: Performed By: #### P TT, NTBNP, HSTNT, CBCDIF, PT, CKCKMB, CMP #### [place] [address] Basophils/100 WBC (Bld) 0.0 % [facility] Comment on above: Performed By: #### P TT, NTBNP, HSTNT, CBCDIF, PT, CKCKMB, CMP #### [place] [address] DTYPE Auto Diff Normal [facility] Comment on above: Performed By: #### P TT, NTBNP, HSTNT, CBCDIF, PT, CKCKMB, CMP #### [place] [address] Eosinophils #/vol (Bld) 0.15 10*3/uL Normal <0.46 [facility] Comment on above: Performed By: #### P TT, NTBNP, HSTNT, CBCDIF, PT, CKCKMB, CMP #### [place] [address] Eosinophils/100 WBC (Bld) 1.2 % Normal [facility] Comment on above: Performed By: #### P TT, NTBNP, HSTNT, CBCDIF, PT, CKCKMB, CMP #### [place] [address] Erythrocyte distribution width Ratio (RBC) 14.6 % Normal 11.5-15.0 [facility] Comment on above: Performed By: #### P TT, NTBNP, HSTNT, CBCDIF, PT, CKCKMB, CMP #### [place] [id number] Hematocrit Volume Fraction (Bld) 38.5 % Normal 36.0-46.0 [facility] Comment on above: Performed By: #### P TT, NTBNP, HSTNT, CBCDIF, PT, CKCKMB, CMP #### [place] [address] Hemoglobin mass conc (Bld) 12.0 g/dL Normal 11.5-15.5 [facility] Comment on above: Performed By: #### P TT, NTBNP, HSTNT, CBCDIF, PT, CKCKMB, CMP #### [place] [address] Lymphocytes #/vol (Bld) 1.66 10*3/uL Normal 1.00-4.00 [facility] Comment on above: Performed By: #### P TT, NTBNP, HSTNT, CBCDIF, PT, CKCKMB, CMP #### [place] [id number] Lymphocytes/100 WBC (Bld) 13.4 % Normal [facility] Comment on above: Performed By: #### P TT, NTBNP, HSTNT, CBCDIF, PT, CKCKMB, CMP #### [place] [id number] MCH Entitic mass (RBC) 26.8 pG Normal 26.0-34.0 [facility] Comment on above: Performed By: #### P TT, NTBNP, HSTNT, CBCDIF, PT, CKCKMB, CMP #### [address] MCHC mass conc (RBC) 31.2 g/dL Normal 30.5-36.0 [facility] Comment on above: Performed By: #### P TT, NTBNP, HSTNT, CBCDIF, PT, CKCKMB, CMP #### [place] [id number] MCV Entitic volume (RBC) 86.1 fL Normal 80.0-100.0 [facility] Comment on above: Performed By: #### P TT, NTBNP, HSTNT, CBCDIF, PT, CKCKMB, CMP #### [place] [address] Monocytes/100 WBC (Bld) 7.4 % Normal [facility] Comment on above: Performed By: #### P TT, NTBNP, HSTNT, CBCDIF, PT, CKCKMB, CMP #### [place] [id number] Neutrophils/100 WBC (Bld) 78.0 % Normal [facility] Comment on above: Performed By: #### P TT, NTBNP, HSTNT, CBCDIF, PT, CKCKMB, CMP #### [place] [phone] Platelet mean volume Entitic volume (Bld) 9.9 fL Normal 9.0-12.7 [facility] Comment on above: Performed By: #### P TT, NTBNP, HSTNT, CBCDIF, PT, CKCKMB, CMP #### [place] [phone] Platelets #/vol (Bld) 241 10*3/uL Normal 150-400 [facility] Comment on above: Performed By: #### P TT, NTBNP, HSTNT, CBCDIF, PT, CKCKMB, CMP #### [place] [id number] RBC #/vol (Bld) 4.47 10*6/uL Normal 3.90-5.20 [facility] Comment on above: Performed By: #### P TT, NTBNP, HSTNT, CBCDIF, PT, CKCKMB, CMP #### [place] [address] WBC #/vol (Bld) 12.38 10*3/uL High 3.70-11.00 [facility] Comment on above: Performed By: #### P TT, NTBNP, HSTNT, CBCDIF, PT, CKCKMB, CMP #### [place] [address] CNDSon 07-07-2018 CNDS HNO ID: [id number] Author: Uzma Graff Service: General Internal Medicine [...] APPOINTMENTS ALREADY SCHEDULED WITH A [facility] PROVIDER: Future Appointments Date Time Provider Department Center 11/02/2018 11:30 AM [facility] ALLERGIES Allergen Reactions - Statins [Other] [...] DATE: July 07, 2018 TIME: 9:48 AM Normal [facility] CONSULT PROGon 07-07-2018 Protein mass conc HNO ID: [id number] Author: Clif Dhillon Service: Hypertension AND Nephrology [...] in 3-4 weeks ? Clif Jarvis MD [facility] Kidney Dyess Normal [facility] Comp Metabolic Panelon 07-07 Albumin mass conc 3.6 g/dL Normal 3.5-5.0 [facility] Comment on above: Performed By: #### P TT, NTBNP, HSTNT, CBCDIF, PT, CKCKMB, CMP #### [place] [phone] ALP enzyme act/vol 83 U/L Normal 34-123 [facility] Comment on above: Performed By: #### P TT, NTBNP, HSTNT, CBCDIF, PT, CKCKMB, CMP #### [place] [phone] ALT enzyme act/vol 12 U/L Normal 0-45 [facility] Comment on above: Performed By: #### P TT, NTBNP, HSTNT, CBCDIF, PT, CKCKMB, CMP #### [place] [address] Anion gap molar conc 15 mmol/L Normal 9-18 [facility] Comment on above: Performed By: #### P TT, NTBNP, HSTNT, CBCDIF, PT, CKCKMB, CMP #### [place] [phone] AST enzyme act/vol 10 U/L Normal 7-40 [facility] Comment on above: Performed By: #### P TT, NTBNP, HSTNT, CBCDIF, PT, CKCKMB, CMP #### [place] [phone] Bilirubin mass conc 0.3 mg/dL Normal 0.2-1.3 [facility] Comment on above: Performed By: #### P TT, NTBNP, HSTNT, CBCDIF, PT, CKCKMB, CMP #### [place] [phone] Calcium mass conc 8.7 mg/dL Normal 8.5-10.5 [facility] Comment on above: Performed By: #### P TT, NTBNP, HSTNT, CBCDIF, PT, CKCKMB, CMP #### [place] [phone] Chloride molar conc 90 mmol/L Low 98-110 [facility] Comment on above: Performed By: #### P TT, NTBNP, HSTNT, CBCDIF, PT, CKCKMB, CMP #### [place] [phone] CO2 molar conc 33 mmol/L High 23-32 [facility] Comment on above: Performed By: #### P TT, NTBNP, HSTNT, CBCDIF, PT, CKCKMB, CMP #### [place] [phone] Creatinine mass conc 1.54 mg/dL High 0.70-1.40 [facility] Comment on above: Performed By: #### P TT, NTBNP, HSTNT, CBCDIF, PT, CKCKMB, CMP #### [place] [phone] eGFR- Amer. 40 Low >60 [facility] Comment on above: Performed By: #### P TT, NTBNP, HSTNT, CBCDIF, PT, CKCKMB, CMP #### [place] [phone] GFR/1.73 sq M predicted among non-blacks MDRD vol rate/area (S/P/Bld) 33 . Low >60 [facility] Comment on above: Performed By: #### P TT, NTBNP, HSTNT, CBCDIF, PT, CKCKMB, CMP #### [place] [phone] Glucose mass conc 88 mg/dL Normal 65-100 [facility] Comment on above: Performed By: #### P TT, NTBNP, HSTNT, CBCDIF, PT, CKCKMB, CMP #### [place] [phone] Potassium molar conc 3.9 mmol/L Normal 3.5-5.0 [facility] Comment on above: Performed By: #### P TT, NTBNP, HSTNT, CBCDIF, PT, CKCKMB, CMP #### [place] [phone] Protein mass conc 6.3 g/dL Normal 6.0-8.4 [facility] Comment on above: Performed By: #### P TT, NTBNP, HSTNT, CBCDIF, PT, CKCKMB, CMP #### [place] [phone] Sodium molar conc 138 mmol/L Normal 132-148 [facility] Comment on above: Performed By: #### P TT, NTBNP, HSTNT, CBCDIF, PT, CKCKMB, CMP #### [place] [phone] Urea nitrogen mass conc 67 mg/dL High 8-25 [facility] Comment on above: Performed By: #### P TT, NTBNP, HSTNT, CBCDIF, PT, CKCKMB, CMP #### [place] [phone] Ferritinon 07-07-2018 Ferritin mass conc 81.6 ng/mL Normal 14.7-205.1 [facility] Comment on above: Performed By: #### P TT, NTBNP, HSTNT, CBCDIF, PT, CKCKMB, CMP #### [place] [phone] Iron and TIBCon 07-07-2018 Iron mass conc 86 ug/dL Normal 35-150 [facility] Comment on above: Performed By: #### P TT, NTBNP, HSTNT, CBCDIF, PT, CKCKMB, CMP #### [place] [phone] TIBC 330 ug/dL Normal 250-450 [facility] Comment on above: Performed By: #### P TT, NTBNP, HSTNT, CBCDIF, PT, CKCKMB, CMP #### [place] [phone] Transferrin Saturatn 26 % Normal 20-55 [facility] Comment on above: Performed By: #### P TT, NTBNP, HSTNT, CBCDIF, PT, CKCKMB, CMP #### [place] [phone] NURSING PROGon 07-07-2018 Protein mass conc HNO ID: [id number] Author: Neris CabreraRn) ZAK English Service: Abstract Author Type: Registered Nurse Type: Nursing Progress Note Filed: 07/07/2018 3:41 PM Note Text: Nursing Progress Note Patient Name: Sarina Lovett Patient Location: [place] [address]/[id number] Daily Note: Discharge instructions given with verbal understanding. Some prescriptions filled here, other paper prescriptions handed to patient she said she has some of them filled at home and will double check before filling them again. Tele and IV both d/c'd. Patient wheeled down by volunteers to front entrance. All belongings returned. This note was completed by: Neris English RN Normal [facility] Protein mass conc HNO ID: [id number] Author: Neris Payton) ZAK English Service: Abstract Author Type: Registered Nurse Type: Nursing Progress Note Filed: 07/07/2018 12:38 PM Note Text: Nursing Progress Note Patient Name: Sarina Lovett Patient Location: [address]/EA5Q-22 Daily Note: 1238: re paged Dr Dhillon: [id number] Barry LOVETT Patient is all ready for discharge. Please call me to let me know if you approve. Spoke with resident he said we have to ask you. Thank you. [place] [phone]: [id number] at bedside, would like to speak with you regarding d/c. Please call us. Thank you. Neris Young This note was completed by: Neris English RN [facility] PLAN OF CAREon 07-07-2018 PLAN OF CARE HNO ID: [id number] Author: Kathy Aguero ([employer]anging [employer]) Service: Pharmacy Author Type: Court Recorder Type: Plan of Care Filed: 07/11/2018 11:29 [...] or your Primary Care Provider. Kathy Aguero ([employer]) PAGER: [phone] July 11, 2018 11:29 AM [facility] PLAN OF CARE HNO ID: [id number] Author: Kathy Aguero ([employer]) Service: Pharmacy Author Type: Court Recorder Type: Plan of Care Filed: 07/07/2018 12:48 PM Note Text: Pharmacy Discharge Medication Service: This patient has elected to receive their discharge prescriptions through the [facility] Bedside Prescription Delivery program. The prescriptions are currently being processed. A follow-up note will be entered once the prescriptions have been filled and delivered to the patient. Please contact me with any questions or updates to the patient's discharge medications. Kathy Aguero ([employer]) DCT Contact Info: [phone] [facility] PLAN OF CARE HNO ID: [id number] Author: Kathy Aguero ([employer]) Service: Pharmacy Author Type: Court Recorder Type: Plan of Care Filed: 07/07/2018 12:48 PM Note Text: [employer] BEDSIDE DELIVERY SURVEY 1. Patient to use [facility] Bedside Delivery - YES Insurance Information as follows: 2. Insurance card on file - YES 3. Credit card for payment - N/A [facility] PTH, [place] 07-07-2018 PTH, Intact 78 pg/mL High 15-65 [facility] Comment on above: Performed By: #### P TT, NTBNP, HSTNT, CBCDIF, PT, CKCKMB, CMP #### [place] [id number] Vitamin D 25 Hydroxyon 07-07 Vitamin D 25 Hydroxy 19.1 ng/mL Low 31.0-80.0 [facility] Comment on above: Result Comment: Clas sification of 25 OH Vitamin D status: Insufficiency/Moderate Deficiency: < or = 30 ng/mL Sufficiency/Optimal Levels: 31 to 80 ng/mL Toxicity: > 100 ng/mL Test performed by chemiluminescent immunoassay. Performed By: #### P TT, NTBNP, HSTNT, CBCDIF, PT, CKCKMB, CMP #### [place] [phone] Albumin/Creat Ratioon 2018 Albumin Urine Random 190.3 mg/L High 0.0-23.0 [facility] Comment on above: Performed By: #### P TT, NTBNP, HSTNT, CBCDIF, PT, CKCKMB, CMP #### [place] [phone] Albumin/Creat Ratio 582 mg/g High 0-30 [facility] Comment on above: Result Comment: 30 t o 300 mg/g indicates an increased risk for diabetic nephropathy. Greater than 300 mg/g is consistent with clinical nephropathy. (Am J Kidney Disease 1995, 25:107) Performed By: #### P TT, NTBNP, HSTNT, CBCDIF, PT, CKCKMB, CMP #### [place] [phone] Creatinine,Urine,Ran 32.7 mg/dL Normal 20-300 [facility] Comment on above: Performed By: #### P TT, NTBNP, HSTNT, CBCDIF, PT, CKCKMB, CMP #### [place] [phone] Basic Metabolic Panlon 07-06 Anion gap molar conc 12 mmol/L Normal 9-18 [facility] Comment on above: Performed By: #### P TT, NTBNP, HSTNT, CBCDIF, PT, CKCKMB, CMP #### [place] [address] Calcium mass conc 8.8 mg/dL Normal 8.5-10.5 [facility] Comment on above: Performed By: #### P TT, NTBNP, HSTNT, CBCDIF, PT, CKCKMB, CMP #### [place] [address] Chloride molar conc 90 mmol/L Low 98-110 [facility] Comment on above: Performed By: #### P TT, NTBNP, HSTNT, CBCDIF, PT, CKCKMB, CMP #### [place] [address] CO2 molar conc 35 mmol/L High 23-32 [facility] Comment on above: Performed By: #### P TT, NTBNP, HSTNT, CBCDIF, PT, CKCKMB, CMP #### [place] [address] Creatinine mass conc 1.51 mg/dL High 0.70-1.40 [facility] Comment on above: Performed By: #### P TT, NTBNP, HSTNT, CBCDIF, PT, CKCKMB, CMP #### [place] [id number] eGFR- Amer. 41 Low >60 [facility] Comment on above: Performed By: #### P TT, NTBNP, HSTNT, CBCDIF, PT, CKCKMB, CMP #### [place] [id number] GFR/1.73 sq M predicted among non-blacks MDRD vol rate/area (S/P/Bld) 34 . Low >60 [facility] Comment on above: Performed By: #### P TT, NTBNP, HSTNT, CBCDIF, PT, CKCKMB, CMP #### [place] [phone] Glucose mass conc 219 mg/dL High 65-100 [facility] Comment on above: Performed By: #### P TT, NTBNP, HSTNT, CBCDIF, PT, CKCKMB, CMP #### [place] [phone] Potassium molar conc 4.6 mmol/L Normal 3.5-5.0 [facility] Comment on above: Performed By: #### P TT, NTBNP, HSTNT, CBCDIF, PT, CKCKMB, CMP #### [place] [phone] Sodium molar conc 137 mmol/L Normal 132-148 [facility] Comment on above: Performed By: #### P TT, NTBNP, HSTNT, CBCDIF, PT, CKCKMB, CMP #### [place] [phone] Urea nitrogen mass conc 63 mg/dL High 8-25 [facility] Comment on above: Performed By: #### P TT, NTBNP, HSTNT, CBCDIF, PT, CKCKMB, CMP #### [place] [phone] CASE MANAGEMon 07-06-2018 CASE MANAGEM HNO ID: [id number] Author: Bro Wood (Sw) Service: Care Management Author Type: Egg Smeller Type: Care Mgt Progress Note Filed: 07/06/2018 [...] Moderate Degree (Hcc) Attendees Present at Rounds: Offset Proof Press Operator: Yoselin Nurse Calciner Operator/Pt Escort Nurse Calciner Operator: Betsy Egg Smeller: Bro Staff Nurse: Neris Needs Discussed on [...] July 06, 2018 TIME: 11:06 AM CSN: [id number] [facility] CONSULTon 07-06-2018 CONSULT HNO ID: [id number] Author: Clif Dhillon Service: General Internal Medicine Author Type: Physician [...] any new complaints. Patient doesn't see any worm packer currently. Previously came to the hospital in February . She also has history of contrast nephropathy. She doesn't remember her medications. Doesn't recall any diuretics. Baseline creatinine around 1.5 , around 1.4 to 1.5 range, previously higher. History of contrast nephropathy. 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 PAST MEDICAL 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 - Aortic valve disorders - Cancer (HCC) - Coronary atherosclerosis of unspecified type of vessel, [place] or graft Coronary Atherosclerosis - Diabetes (HCC) [...] Anemia check iron study Clif Jarvis MD [facility] Normal [facility] Chloride,Urine,Marko 2018 Chloride,Urine,[place] 69 mmol/L Normal 16-250 [facility] Comment on above: Performed By: #### P TT, NTBNP, HSTNT, CBCDIF, PT, CKCKMB, CMP #### [place] [phone] [place] [address] PROGRESSon 07-06-2018 Protein mass conc HNO ID: [id number] Author: Taina Ware Service: ? Author Type: Track Patrol Type: Progress Notes Filed: 07/06/2018 9:54 AM [...] Ware RDMS July 06, 2018 9:53 AM [facility] Protein mass conc HNO ID: [id number] Author: Uzma Graff Service: General Internal Medicine [...] last 24 hours. SIGNATURE: Uzma Graff MD [phone] Pager: [facility] Potassium,Urine,Marko 05-09 -2019 Potassium,Urine,[place] 23.0 mmol/L Normal 10-160 [facility] Comment on above: Performed By: #### P TT, NTBNP, HSTNT, CBCDIF, PT, CKCKMB, CMP #### [place] [phone] Protein/Creatinine Ratioon 0 07-06-2018 Creatinine,Urine,Ran 33.3 mg/dL Normal 20-300 [facility] Comment on above: Performed By: #### P TT, NTBNP, HSTNT, CBCDIF, PT, CKCKMB, CMP #### [place] [address] Protein mass conc (U) 34 mg/dL High 0-20 [facility] Comment on above: Performed By: #### P TT, NTBNP, HSTNT, CBCDIF, PT, CKCKMB, CMP #### [place] [phone] Protein/Creatinine Ratio 1.0 High <0.2 [facility] Comment on above: Performed By: #### P TT, NTBNP, HSTNT, CBCDIF, PT, CKCKMB, CMP #### [place] [address] Sodium,Urine,Randomon 2018 Sodium molar conc (U) 91 mmol/L Normal 14-216 [facility] Comment on above: Performed By: #### P TT, NTBNP, HSTNT, CBCDIF, PT, CKCKMB, CMP #### [place] [address] US KIDNEY/BLADDERon 07-07-19 19 US KIDNEY/BLADDER * [...] Additional findings as detailed in the report. Mill Supervisor: JENNIFER Transcribe Date/Time: Jul 06 2018 2:20P Dictated by : MANISHA CONTRERAS MD This examination was interpreted and the report reviewed and electronically signed by: MANISHA CONTRERAS MD on Jul 06 2018 2:22PM EST [id number] Normal [facility] Urea Nitrogen,Ur,Ranon 07-06 Urea nitrogen mass conc 444 mg/dL Normal 140-1500 [facility] Comment on above: Performed By: #### P TT, NTBNP, HSTNT, CBCDIF, PT, CKCKMB, CMP #### [place] [address] Urinalysis with Microscopico n 07-06-2018 Bacteria LM.HPF #/area (Urine sed) Rare Critically abnormal Negative [facility] Comment on above: Performed By: #### P TT, NTBNP, HSTNT, CBCDIF, PT, CKCKMB, CMP #### [place] [address] Bilirubin, Urine Negative Normal Negative [facility] Comment on above: Performed By: #### P TT, NTBNP, HSTNT, CBCDIF, PT, CKCKMB, CMP #### [place] [address] Clarity Nom (U) Clear Normal Clear [facility] Comment on above: Performed By: #### P TT, NTBNP, HSTNT, CBCDIF, PT, CKCKMB, CMP #### [place] [address] Color Nom (U) Yellow Normal Yellow [facility] Comment on above: Performed By: #### P TT, NTBNP, HSTNT, CBCDIF, PT, CKCKMB, CMP #### [place] [address] Comments SEE COMMENT Normal [facility] Comment on above: Result Comment: Micr oscopic Examination Performed Performed By: #### P TT, NTBNP, HSTNT, CBCDIF, PT, CKCKMB, CMP #### [place] [address] Epithelial cells LM.HPF #/area (Urine sed) SEE COMMENT Critically abnormal Negative [facility] Comment on above: Result Comment: Rare Squamous Epithelial Cells Performed By: #### P TT, NTBNP, HSTNT, CBCDIF, PT, CKCKMB, CMP #### [place] [address] Glucose Ql (U) Negative Normal Negative [facility] Comment on above: Performed By: #### P TT, NTBNP, HSTNT, CBCDIF, PT, CKCKMB, CMP #### [place] [address] Hemoglobin/Blood,Ur Negative Normal Negative [facility] Comment on above: Performed By: #### P TT, NTBNP, HSTNT, CBCDIF, PT, CKCKMB, CMP #### [place] [address] Ketones Ql (U) Negative Normal Negative [facility] Comment on above: Performed By: #### P TT, NTBNP, HSTNT, CBCDIF, PT, CKCKMB, CMP #### [place] [address] Leukest Small Critically abnormal Negative [facility] Comment on above: Performed By: #### P TT, NTBNP, HSTNT, CBCDIF, PT, CKCKMB, CMP #### [place] [address] Mucus Ql (Urine sed) Present Normal [facility] Comment on above: Performed By: #### P TT, NTBNP, HSTNT, CBCDIF, PT, CKCKMB, CMP #### [place] [address] Nitrite Ql (U) Negative Normal Negative [facility] Comment on above: Performed By: #### P TT, NTBNP, HSTNT, CBCDIF, PT, CKCKMB, CMP #### [place] [address] pH (Bld) 6.0 Normal 5.0-8.0 [facility] Comment on above: Performed By: #### P TT, NTBNP, HSTNT, CBCDIF, PT, CKCKMB, CMP #### [place] [address] Protein mass conc (U) 30 mg/dL Critically abnormal Negative [facility] Comment on above: Performed By: #### P TT, NTBNP, HSTNT, CBCDIF, PT, CKCKMB, CMP #### [place] [address] RBC #/vol (U) Rare Critically abnormal Negative [facility] Comment on above: Performed By: #### P TT, NTBNP, HSTNT, CBCDIF, PT, CKCKMB, CMP #### [place] [address] Specific Garvin, Ur 1.011 Normal 1.005-1.030 [facility] Comment on above: Performed By: #### P TT, NTBNP, HSTNT, CBCDIF, PT, CKCKMB, CMP #### [place] [address] Urobilinogen Qn (U) <2.0 Normal <2.0 [facility] Comment on above: Performed By: #### P TT, NTBNP, HSTNT, CBCDIF, PT, CKCKMB, CMP #### [place] [address] WBC #/vol (Bld) Rare Critically abnormal Negative [facility] Comment on above: Performed By: #### P TT, NTBNP, HSTNT, CBCDIF, PT, CKCKMB, CMP #### [place] [address] PROGRESSon 07-05-2018 Protein mass conc HNO ID: [id number] Author: Geeta (Rn) ZAK Bradshaw Service: ? Author Type: Registered Nurse Type: Progress Notes Filed: 07/05/2018 3:09 PM Note Text: CHRONIC CARE ROUNDING Diagnosis: COPD Referral Source: Chronic Care Nurse Status: New Planned Discharge Disposition: Unknown Chronic Care services discussed with patient. Chronic Care brochure offered. OUTCOME OF ROUNDING Declines appointment due to: Not interested. Geeta Bradshaw RN July 05, 2018 3:08 PM Normal [facility] Protein mass conc HNO ID: [id number] Author: Uzma Graff Service: General Internal Medicine [...] -- 06/29/18 1545 vte current anticoag therapy (tx,ok) 06/29/18 1545 pneumatic compression stockings (tx,ok) 06/29/18 1545 activity - mobilize patient (tx,ok) VTE Prophylaxis: SIGNATURE: Lisa Toney APRN.BHARAT PATIENT NAME: Sarina Lovett DATE: July 05, 2018 TIME: 2:04 PM PAGER/CONTACT #: [facility] CASE MANAGEMon 07-04-2018 CASE MANAGEM HNO ID: [id number] Author: Bro Wood (Sw) Service: Care Management Author Type: Egg Smeller Type: Care Mgt Progress Note Filed: 07/04/2018 [...] Failure (Chf) (Hcc) Attendees Present at Rounds: Offset Proof Press Operator: Yoselin Nurse Calciner Operator/Pt Escort Nurse Calciner Operator: Arlin Egg Smeller: Bro Staff Nurse: Toni Needs Discussed on Rounds: Discharge [...] July 04, 2018 TIME: 11:27 AM CSN: [id number] [facility] CBC and Differentialon 07-04 Abs Baso <0.03 Normal <0.11 [facility] Comment on above: Performed By: #### P TT, NTBNP, HSTNT, CBCDIF, PT, CKCKMB, CMP #### [place] [address] Abs Grant 0.12 k/uL Normal <0.87 [facility] Comment on above: Performed By: #### P TT, NTBNP, HSTNT, CBCDIF, PT, CKCKMB, CMP #### [place] [address] Abs Neut 6.90 k/uL Normal 1.45-7.50 [facility] Comment on above: Performed By: #### P TT, NTBNP, HSTNT, CBCDIF, PT, CKCKMB, CMP #### [place] [address] Basophils/100 WBC (Bld) 0.0 % Normal [facility] Comment on above: Performed By: #### P TT, NTBNP, HSTNT, CBCDIF, PT, CKCKMB, CMP #### [place] [address] DTYPE Auto Diff Normal [facility] Comment on above: Performed By: #### P TT, NTBNP, HSTNT, CBCDIF, PT, CKCKMB, CMP #### [place] [address] Eosinophils #/vol (Bld) 10*3/uL Normal <0.46 [facility] Comment on above: Performed By: #### P TT, NTBNP, HSTNT, CBCDIF, PT, CKCKMB, CMP #### [place] [address] Eosinophils/100 WBC (Bld) 0.0 % Normal [facility] Comment on above: Performed By: #### P TT, NTBNP, HSTNT, CBCDIF, PT, CKCKMB, CMP #### [place] [address] Erythrocyte distribution width Ratio (RBC) 14.5 % Normal 11.5-15.0 [facility] Comment on above: Performed By: #### P TT, NTBNP, HSTNT, CBCDIF, PT, CKCKMB, CMP #### [place] [address] Hematocrit Volume Fraction (Bld) 32.8 % Low 36.0-46.0 [facility] Comment on above: Performed By: #### P TT, NTBNP, HSTNT, CBCDIF, PT, CKCKMB, CMP #### [place] [address] Hemoglobin mass conc (Bld) 10.1 g/dL Low 11.5-15.5 [facility] Comment on above: Performed By: #### P TT, NTBNP, HSTNT, CBCDIF, PT, CKCKMB, CMP #### [place] [address] Lymphocytes #/vol (Bld) 0.41 10*3/uL Low 1.00-4.00 [facility] Comment on above: Performed By: #### P TT, NTBNP, HSTNT, CBCDIF, PT, CKCKMB, CMP #### [place] [address] Lymphocytes/100 WBC (Bld) 5.5 % Normal [facility] Comment on above: Performed By: #### P TT, NTBNP, HSTNT, CBCDIF, PT, CKCKMB, CMP #### [place] [address] MCH Entitic mass (RBC) 26.7 pG Normal 26.0-34.0 [facility] Comment on above: Performed By: #### P TT, NTBNP, HSTNT, CBCDIF, PT, CKCKMB, CMP #### [place] [address] MCHC mass conc (RBC) 30.8 g/dL Normal 30.5-36.0 [facility] Comment on above: Performed By: #### P TT, NTBNP, HSTNT, CBCDIF, PT, CKCKMB, CMP #### [place] [phone] MCV Entitic volume (RBC) 86.8 fL Normal 80.0-100.0 [facility] Comment on above: Performed By: #### P TT, NTBNP, HSTNT, CBCDIF, PT, CKCKMB, CMP #### [place] [phone] Monocytes/100 WBC (Bld) 1.6 % Normal [facility] Comment on above: Performed By: #### P TT, NTBNP, HSTNT, CBCDIF, PT, CKCKMB, CMP #### [place] [phone] Neutrophils/100 WBC (Bld) 92.9 % Normal [facility] Comment on above: Performed By: #### P TT, NTBNP, HSTNT, CBCDIF, PT, CKCKMB, CMP #### [place] [phone] Platelet mean volume Entitic volume (Bld) 10.2 fL Normal 9.0-12.7 [facility] Comment on above: Performed By: #### P TT, NTBNP, HSTNT, CBCDIF, PT, CKCKMB, CMP #### [place] [phone] Platelets #/vol (Bld) 205 10*3/uL Normal 150-400 [facility] Comment on above: Performed By: #### P TT, NTBNP, HSTNT, CBCDIF, PT, CKCKMB, CMP #### [place] [phone] RBC #/vol (Bld) 3.78 10*6/uL Low 3.90-5.20 [facility] Comment on above: Performed By: #### P TT, NTBNP, HSTNT, CBCDIF, PT, CKCKMB, CMP #### [place] [phone] WBC #/vol (Bld) 7.43 10*3/uL Normal 3.70-11.00 [facility] Comment on above: Performed By: #### P TT, NTBNP, HSTNT, CBCDIF, PT, CKCKMB, CMP #### [place] [address] Comp Metabolic Panelon 07-04 Albumin mass conc 3.5 g/dL Normal 3.5-5.0 [facility] Comment on above: Performed By: #### P TT, NTBNP, HSTNT, CBCDIF, PT, CKCKMB, CMP #### [place] [phone] ALP enzyme act/vol 101 U/L Normal 34-123 [facility] Comment on above: Performed By: #### P TT, NTBNP, HSTNT, CBCDIF, PT, CKCKMB, CMP #### [place] [phone] ALT enzyme act/vol 14 U/L Normal 0-45 [facility] Comment on above: Performed By: #### P TT, NTBNP, HSTNT, CBCDIF, PT, CKCKMB, CMP #### [place] [phone] Anion gap molar conc 14 mmol/L Normal 9-18 [facility] Comment on above: Performed By: #### P TT, NTBNP, HSTNT, CBCDIF, PT, CKCKMB, CMP #### [place] [phone] AST enzyme act/vol 11 U/L Normal 7-40 [facility] Comment on above: Performed By: #### P TT, NTBNP, HSTNT, CBCDIF, PT, CKCKMB, CMP #### [place] [phone] Bilirubin mass conc 0.2 mg/dL Normal 0.2-1.3 [facility] Comment on above: Performed By: #### P TT, NTBNP, HSTNT, CBCDIF, PT, CKCKMB, CMP #### [place] [phone] Calcium mass conc 8.4 mg/dL Low 8.5-10.5 [facility] Comment on above: Performed By: #### P TT, NTBNP, HSTNT, CBCDIF, PT, CKCKMB, CMP #### [place] [phone] Chloride molar conc 95 mmol/L Low 98-110 [facility] Comment on above: Performed By: #### P TT, NTBNP, HSTNT, CBCDIF, PT, CKCKMB, CMP #### [place] [phone] CO2 molar conc 28 mmol/L Normal 23-32 [facility] Comment on above: Performed By: #### P TT, NTBNP, HSTNT, CBCDIF, PT, CKCKMB, CMP #### [place] [phone] Creatinine mass conc 1.44 mg/dL High 0.70-1.40 [facility] Comment on above: Performed By: #### P TT, NTBNP, HSTNT, CBCDIF, PT, CKCKMB, CMP #### [place] [phone] eGFR- Amer. 43 Low >60 [facility] Comment on above: Performed By: #### P TT, NTBNP, HSTNT, CBCDIF, PT, CKCKMB, CMP #### [place] [phone] GFR/1.73 sq M predicted among non-blacks MDRD vol rate/area (S/P/Bld) 36 . Low >60 [facility] Comment on above: Performed By: #### P TT, NTBNP, HSTNT, CBCDIF, PT, CKCKMB, CMP #### [place] [phone] Glucose mass conc 328 mg/dL High 65-100 [facility] Comment on above: Performed By: #### P TT, NTBNP, HSTNT, CBCDIF, PT, CKCKMB, CMP #### [place] [phone] Potassium molar conc 4.4 mmol/L Normal 3.5-5.0 [facility] Comment on above: Performed By: #### P TT, NTBNP, HSTNT, CBCDIF, PT, CKCKMB, CMP #### [place] [phone] Protein mass conc 6.3 g/dL Normal 6.0-8.4 [facility] Comment on above: Performed By: #### P TT, NTBNP, HSTNT, CBCDIF, PT, CKCKMB, CMP #### [place] [phone] Sodium molar conc 137 mmol/L Normal 132-148 [facility] Comment on above: Performed By: #### P TT, NTBNP, HSTNT, CBCDIF, PT, CKCKMB, CMP #### [place] [phone] Urea nitrogen mass conc 52 mg/dL High 8-25 [facility] Comment on above: Performed By: #### P TT, NTBNP, HSTNT, CBCDIF, PT, CKCKMB, CMP #### [place] [phone] NUTRITIONon 07-04-2018 NUTRITION HNO ID: [id number] Author: Laura Lovett Service: Nutrition Therapy Author Type: Registered Dietitian [...] Resting Metabolic Rate: 1292 Estimated kilocalorie needs: 1817-4592 kilocalories determined by 25-30 kcal/kg Estimated protein needs: 74-89 grams determined by 1.0-1.2 g/kg Dosing weight Estimated fluid needs: 6516-1992 milliliters based on 1 mL per kcal [...] g ORAL DAILY PRN Date 07/03/18699 - 07/04/1865807/04/18699 - 07/05/18658 Shift 2194-2731 9160-9822 3185-7679 24 Hour Total 1038-0718 5685-6115 7692-4669 24 Hour Total INTAKE PO 700 700 PO 700 700 Shift Total 700 700 OUTPUT Urine 313 093 3106 1800 Void (ml) 409 080 6624 1800 Urine Not Saved. 3 x 1 x 4 x # of BMs Number of BMs 3 x 1 x 4 x Shift Total 360 259 0981 1800 Weight (kg) 75.3 75.3 74 74 74 74 74 74 MNT Billing Type: Initial Assess/15 min 4 units SIGNATURE: Laura Lovett, MS,RD,LD,CNSC PATIENT NAME: Sarina Lovett DATE: July 04, 2018 TIME: 1:17 PM PAGER: [phone] [facility] PROGRESSon 07-04-2018 Protein mass conc HNO ID: [id number] Author: Uzma Graff Service: General Internal Medicine [...] but is uncertain what. Chart review shows Amaryl, will restart. Pt states her son would [...] Art (!) 53 16 93 % ? 07/03/182055 162/50 36.6 ?C (97.8 ?F) Oral (!) [...] -- 06/29/18 1545 vte current anticoag therapy ([place] [address]) 06/29/18 1545 pneumatic compression stockings [place] 06/29/18 1545 activity - mobilize [place]) VTE Prophylaxis: SIGNATURE: Lisa Toney APRN.VARNISH BLENDER PATIENT NAME: Sarina Lovett DATE: July 04, 2018 TIME: 5:09 PM PAGER/CONTACT #: [facility] CONSULT PROGon 07-03-2018 Protein mass conc HNO ID: [id number] Author: Deanna Yoo Service: Cardiovascular Medicine Author [...] (!) 51 20 93 % ? 07/02/18 2025 167/53 36.2 ?C (97.2 ?F) Temporal (!) [...] 75 mg ORAL DAILY 06/29/18 1531 -- @LP PLINK([id number])@ VTE Prophylaxis: VTE prophylaxis appropriate SIGNATURE: Deanna Yoo APRN.CNP PATIENT NAME: Sarina Lovett DATE: July 03, 2018 TIME: 10:17 AM PAGER/CONTACT #: [facility] PROGRESSon 07-03-2018 Protein mass conc HNO ID: [id number] Author: Uzma Graff Service: General Internal Medicine [...] (!) 51 20 93 % ? 07/02/18 2025 167/53 36.2 ?C (97.2 ?F) Temporal (!) [...] -- 06/29/18 1545 vte current anticoag therapy ([address]) 06/29/18 1545 pneumatic compression stockings ([address] 06/29/18 1545 activity - [place]ize [place] VTE Prophylaxis: SIGNATURE: Lisa Tnoey APRN.CNP PATIENT NAME: Sarina Lovett DATE: July 03, 2018 TIME: 11:28 AM PAGER/CONTACT #: Normal [facility] CBC and Differentialon 07-02 Abs Baso <0.03 Normal <0.11 [facility] Comment on above: Performed By: #### P TT, NTBNP, HSTNT, CBCDIF, PT, CKCKMB, CMP #### [place] [phone] [place] [address] Abs Grant 0.22 k/uL Normal <0.87 [facility] Comment on above: Performed By: #### P TT, NTBNP, HSTNT, CBCDIF, PT, CKCKMB, CMP #### [address] [address] Abs Neut 5.38 k/uL Normal 1.45-7.50 [facility] Comment on above: Performed By: #### P TT, NTBNP, HSTNT, CBCDIF, PT, CKCKMB, CMP #### [place] [phone] Basophils/100 WBC (Bld) 0.0 % Normal [facility] Comment on above: Performed By: #### P TT, NTBNP, HSTNT, CBCDIF, PT, CKCKMB, CMP #### [place] [phone] DTYPE Auto Diff Normal [facility] Comment on above: Performed By: #### P TT, NTBNP, HSTNT, CBCDIF, PT, CKCKMB, CMP #### [place] [address] Eosinophils #/vol (Bld) 10*3/uL Normal <0.46 [facility] Comment on above: Performed By: #### P TT, NTBNP, HSTNT, CBCDIF, PT, CKCKMB, CMP #### [address] Eosinophils/100 WBC (Bld) 0.0 % Normal [facility] Comment on above: Performed By: #### P TT, NTBNP, HSTNT, CBCDIF, PT, CKCKMB, CMP #### [place] [phone] Erythrocyte distribution width Ratio (RBC) 14.5 % Normal 11.5-15.0 [facility] Comment on above: Performed By: #### P TT, NTBNP, HSTNT, CBCDIF, PT, CKCKMB, CMP #### [place] [phone] Hematocrit Volume Fraction (Bld) 31.0 % Low 36.0-46.0 [facility] Comment on above: Performed By: #### P TT, NTBNP, HSTNT, CBCDIF, PT, CKCKMB, CMP #### [place] [address] Hemoglobin mass conc (Bld) 9.4 g/dL Low 11.5-15.5 [facility] Comment on above: Performed By: #### P TT, NTBNP, HSTNT, CBCDIF, PT, CKCKMB, CMP #### [place] [address] Lymphocytes #/vol (Bld) 0.32 10*3/uL Low 1.00-4.00 [facility] Comment on above: Performed By: #### P TT, NTBNP, HSTNT, CBCDIF, PT, CKCKMB, CMP #### [place] [address] Lymphocytes/100 WBC (Bld) 5.4 % Normal [facility] Comment on above: Performed By: #### P TT, NTBNP, HSTNT, CBCDIF, PT, CKCKMB, CMP #### [place] [address] MCH Entitic mass (RBC) 26.6 pG Normal 26.0-34.0 [facility] Comment on above: Performed By: #### P TT, NTBNP, HSTNT, CBCDIF, PT, CKCKMB, CMP #### [place] [address] MCHC mass conc (RBC) 30.3 g/dL Low 30.5-36.0 [facility] Comment on above: Performed By: #### P TT, NTBNP, HSTNT, CBCDIF, PT, CKCKMB, CMP #### [place] [address] MCV Entitic volume (RBC) 87.8 fL Normal 80.0-100.0 [facility] Comment on above: Performed By: #### P TT, NTBNP, HSTNT, CBCDIF, PT, CKCKMB, CMP #### [place] [phone] Monocytes/100 WBC (Bld) 3.7 % Normal [facility] Comment on above: Performed By: #### P TT, NTBNP, HSTNT, CBCDIF, PT, CKCKMB, CMP #### [place] [phone] Neutrophils/100 WBC (Bld) 90.9 % Normal [facility] Comment on above: Performed By: #### P TT, NTBNP, HSTNT, CBCDIF, PT, CKCKMB, CMP #### [place] [phone] Platelet mean volume Entitic volume (Bld) 9.9 fL Normal 9.0-12.7 [facility] Comment on above: Performed By: #### P TT, NTBNP, HSTNT, CBCDIF, PT, CKCKMB, CMP #### [place] [phone] Platelets #/vol (Bld) 194 10*3/uL Normal 150-400 [facility] Comment on above: Performed By: #### P TT, NTBNP, HSTNT, CBCDIF, PT, CKCKMB, CMP #### [place] [phone] RBC #/vol (Bld) 3.53 10*6/uL Low 3.90-5.20 [facility] Comment on above: Performed By: #### P TT, NTBNP, HSTNT, CBCDIF, PT, CKCKMB, CMP #### [place] [phone] WBC #/vol (Bld) 5.92 10*3/uL Normal 3.70-11.00 [facility] Comment on above: Performed By: #### P TT, NTBNP, HSTNT, CBCDIF, PT, CKCKMB, CMP #### [place] [phone] CONSULT PROGon 07-02-2018 Protein mass conc HNO ID: [id number] Author: Jonathan Mchugh Service: Cardiovascular Disease Author [...] CBC, Coags, BMP, Mg, Phos Recent Labs 07/02/18 0435 07/01/18 0440 06/30/18 0532 06/29/18 1735 WBC 5.92 [...] Liver Function, Amylase, AND Lipase Recent Labs 07/02/18 0435 07/01/18 0440 06/30/18 0532 TPROT 6.3 6.1 7.0 [...] July 02, 2018 Time: 10:13 AM Normal [facility] Comp Metabolic Panelon 07-02 Albumin mass conc 3.3 g/dL Low 3.5-5.0 [facility] Comment on above: Performed By: #### P TT, NTBNP, HSTNT, CBCDIF, PT, CKCKMB, CMP #### [place] [id number] ALP enzyme act/vol 87 U/L Normal 34-123 [facility] Comment on above: Performed By: #### P TT, NTBNP, HSTNT, CBCDIF, PT, CKCKMB, CMP #### [address] ALT enzyme act/vol 12 U/L Normal 0-45 [facility] Comment on above: Performed By: #### P TT, NTBNP, HSTNT, CBCDIF, PT, CKCKMB, CMP #### [address] Anion gap molar conc 13 mmol/L Normal 9-18 [facility] Comment on above: Performed By: #### P TT, NTBNP, HSTNT, CBCDIF, PT, CKCKMB, CMP #### [place] [id number] AST enzyme act/vol 8 U/L Normal 7-40 [facility] Comment on above: Performed By: #### P TT, NTBNP, HSTNT, CBCDIF, PT, CKCKMB, CMP #### [place] [id number] Bilirubin mass conc 0.2 mg/dL Normal 0.2-1.3 [facility] Comment on above: Performed By: #### P TT, NTBNP, HSTNT, CBCDIF, PT, CKCKMB, CMP #### [place] [phone] Calcium mass conc 8.3 mg/dL Low 8.5-10.5 [facility] Comment on above: Performed By: #### P TT, NTBNP, HSTNT, CBCDIF, PT, CKCKMB, CMP #### [place] [phone] Chloride molar conc 98 mmol/L Normal 98-110 [facility] Comment on above: Performed By: #### P TT, NTBNP, HSTNT, CBCDIF, PT, CKCKMB, CMP #### [place] [phone] CO2 molar conc 26 mmol/L Normal 23-32 [facility] Comment on above: Performed By: #### P TT, NTBNP, HSTNT, CBCDIF, PT, CKCKMB, CMP #### [place] [phone] Creatinine mass conc 1.47 mg/dL High 0.70-1.40 [facility] Comment on above: Performed By: #### P TT, NTBNP, HSTNT, CBCDIF, PT, CKCKMB, CMP #### [place] [phone] eGFR- Amer. 42 Low >60 [facility] Comment on above: Performed By: #### P TT, NTBNP, HSTNT, CBCDIF, PT, CKCKMB, CMP #### [place] [phone] GFR/1.73 sq M predicted among non-blacks MDRD vol rate/area (S/P/Bld) 35 . Low >60 [facility] Comment on above: Performed By: #### P TT, NTBNP, HSTNT, CBCDIF, PT, CKCKMB, CMP #### [place] [phone] Glucose mass conc 214 mg/dL High 65-100 [facility] Comment on above: Performed By: #### P TT, NTBNP, HSTNT, CBCDIF, PT, CKCKMB, CMP #### [place] [phone] Potassium molar conc 4.2 mmol/L Normal 3.5-5.0 [facility] Comment on above: Performed By: #### P TT, NTBNP, HSTNT, CBCDIF, PT, CKCKMB, CMP #### [place] [phone] Protein mass conc 6.3 g/dL Normal 6.0-8.4 [facility] Comment on above: Performed By: #### P TT, NTBNP, HSTNT, CBCDIF, PT, CKCKMB, CMP #### [place] [phone] Sodium molar conc 137 mmol/L Normal 132-148 [facility] Comment on above: Performed By: #### P TT, NTBNP, HSTNT, CBCDIF, PT, CKCKMB, CMP #### [place] [phone] Urea nitrogen mass conc 42 mg/dL High 8-25 [facility] Comment on above: Performed By: #### P TT, NTBNP, HSTNT, CBCDIF, PT, CKCKMB, CMP #### [place] [phone] NT Pro BNPon 07-02-2018 Protein mass conc 72472 pg/mL High <125 [facility] Comment on above: Performed By: #### P TT, NTBNP, HSTNT, CBCDIF, PT, CKCKMB, CMP #### [place] [phone] NURSING PROGon 07-02-2018 Protein mass conc HNO ID: [id number] Author: Xiomy CabreraRn) ZAK Christine Service: ? Author Type: Registered Nurse Type: Nursing Progress Note Filed: 07/02/2018 10:55 AM Note Text: Nursing Progress Note Patient Name: Sarina Lovett Patient Location: [address]24/SI9J-41 Daily Note:Pt states breathing is improving. VSS on RA. SB on tele. BP 180s/50s and HTN noted consistantly overnight. Discussed with Dr. Mchugh and additional dose vasotec given now. Daily vasotec dose to increase starting tomorrow. Hydralazine added PRN for SBP>170. ProBNP trending down. BUN/Cr 42/1.47 and physicians aware. Assessment ongoing. This note was completed by: Xiomy Christine RN [facility] PROGRESSon 07-02-2018 Protein mass conc HNO ID: [id number] Author: Jefe Hernandez Service: General Internal Medicine [...] Temporal (!) 58 18 93 % ? 07/01/181999 162/67 36.1 ?C (97 ?F) Temporal (!) [...] Kidney Disease (Hcc) Congestive Heart Failure (Chf) ([facility]) ASSESSMENT AND PLAN: 1 acute systolic chf improved 2 ckd3 3 hti lisinopril increased 4 cad Will monito input / bp SIGNATURE: Jefe Hernandez MD DATE: July 02, 2018 TIME: 11:50 AM Normal [facility] CBC and Differentialon 07-01 Abs Baso <0.03 Normal <0.11 [facility] Comment on above: Performed By: #### P TT, NTBNP, HSTNT, CBCDIF, PT, CKCKMB, CMP #### [place] [address] Abs Grant 0.69 k/uL Normal <0.87 [facility] Comment on above: Performed By: #### P TT, NTBNP, HSTNT, CBCDIF, PT, CKCKMB, CMP #### [place] [address] Abs Neut 7.98 k/uL High 1.45-7.50 [facility] Comment on above: Performed By: #### P TT, NTBNP, HSTNT, CBCDIF, PT, CKCKMB, CMP #### [place] [address] Basophils/100 WBC (Bld) 0.0 % [facility] Comment on above: Performed By: #### P TT, NTBNP, HSTNT, CBCDIF, PT, CKCKMB, CMP #### [place] [address] DTYPE Auto Diff Normal [facility] Comment on above: Performed By: #### P TT, NTBNP, HSTNT, CBCDIF, PT, CKCKMB, CMP #### [place] [address] Eosinophils #/vol (Bld) 10*3/uL Normal <0.46 [facility] Comment on above: Performed By: #### P TT, NTBNP, HSTNT, CBCDIF, PT, CKCKMB, CMP #### [address] Eosinophils/100 WBC (Bld) 0.0 % [facility] Comment on above: Performed By: #### P TT, NTBNP, HSTNT, CBCDIF, PT, CKCKMB, CMP #### [place] [address] Erythrocyte distribution width Ratio (RBC) 14.4 % Normal 11.5-15.0 [facility] Comment on above: Performed By: #### P TT, NTBNP, HSTNT, CBCDIF, PT, CKCKMB, CMP #### [place] [address] Hematocrit Volume Fraction (Bld) 30.7 % Low 36.0-46.0 [facility] Comment on above: Performed By: #### P TT, NTBNP, HSTNT, CBCDIF, PT, CKCKMB, CMP #### [place] [address] Hemoglobin mass conc (Bld) 9.3 g/dL Low 11.5-15.5 [facility] Comment on above: Performed By: #### P TT, NTBNP, HSTNT, CBCDIF, PT, CKCKMB, CMP #### [place] [address] Lymphocytes #/vol (Bld) 0.76 10*3/uL Low 1.00-4.00 [facility] Comment on above: Performed By: #### P TT, NTBNP, HSTNT, CBCDIF, PT, CKCKMB, CMP #### [place] [address] Lymphocytes/100 WBC (Bld) 8.1 % Normal [facility] Comment on above: Performed By: #### P TT, NTBNP, HSTNT, CBCDIF, PT, CKCKMB, CMP #### [place] [id number] MCH Entitic mass (RBC) 27.0 pG Normal 26.0-34.0 [facility] Comment on above: Performed By: #### P TT, NTBNP, HSTNT, CBCDIF, PT, CKCKMB, CMP #### [place] [id number] MCHC mass conc (RBC) 30.3 g/dL Low 30.5-36.0 [facility] Comment on above: Performed By: #### P TT, NTBNP, HSTNT, CBCDIF, PT, CKCKMB, CMP #### [place] [phone] MCV Entitic volume (RBC) 89.2 fL Normal 80.0-100.0 [facility] Comment on above: Performed By: #### P TT, NTBNP, HSTNT, CBCDIF, PT, CKCKMB, CMP #### [place] [phone] Monocytes/100 WBC (Bld) 7.3 % Normal [facility] Comment on above: Performed By: #### P TT, NTBNP, HSTNT, CBCDIF, PT, CKCKMB, CMP #### [place] [phone] Neutrophils/100 WBC (Bld) 84.6 % Normal [facility] Comment on above: Performed By: #### P TT, NTBNP, HSTNT, CBCDIF, PT, CKCKMB, CMP #### [place] [id number] Platelet mean volume Entitic volume (Bld) 10.5 fL Normal 9.0-12.7 [facility] Comment on above: Performed By: #### P TT, NTBNP, HSTNT, CBCDIF, PT, CKCKMB, CMP #### [place] [phone] Platelets #/vol (Bld) 218 10*3/uL Normal 150-400 [facility] Comment on above: Performed By: #### P TT, NTBNP, HSTNT, CBCDIF, PT, CKCKMB, CMP #### [place] [phone] RBC #/vol (Bld) 3.44 10*6/uL Low 3.90-5.20 [facility] Comment on above: Performed By: #### P TT, NTBNP, HSTNT, CBCDIF, PT, CKCKMB, CMP #### [place] [phone] WBC #/vol (Bld) 9.43 10*3/uL Normal 3.70-11.00 [facility] Comment on above: Performed By: #### P TT, NTBNP, HSTNT, CBCDIF, PT, CKCKMB, CMP #### [place] [phone] Comp Metabolic Panelon 07-01 Albumin mass conc 3.3 g/dL Low 3.5-5.0 [facility] Comment on above: Performed By: #### P TT, NTBNP, HSTNT, CBCDIF, PT, CKCKMB, CMP #### [place] [phone] ALP enzyme act/vol 85 U/L Normal 34-123 [facility] Comment on above: Performed By: #### P TT, NTBNP, HSTNT, CBCDIF, PT, CKCKMB, CMP #### [place] [phone] ALT enzyme act/vol 12 U/L Normal 0-45 [facility] Comment on above: Performed By: #### P TT, NTBNP, HSTNT, CBCDIF, PT, CKCKMB, CMP #### [place] [phone] Anion gap molar conc 14 mmol/L Normal 9-18 [facility] Comment on above: Performed By: #### P TT, NTBNP, HSTNT, CBCDIF, PT, CKCKMB, CMP #### [place] [phone] AST enzyme act/vol 8 U/L Normal 7-40 [facility] Comment on above: Performed By: #### P TT, NTBNP, HSTNT, CBCDIF, PT, CKCKMB, CMP #### [place] [address] Bilirubin mass conc 0.2 mg/dL Normal 0.2-1.3 [facility] Comment on above: Performed By: #### P TT, NTBNP, HSTNT, CBCDIF, PT, CKCKMB, CMP #### [place] [address] Calcium mass conc 8.5 mg/dL Normal 8.5-10.5 [facility] Comment on above: Performed By: #### P TT, NTBNP, HSTNT, CBCDIF, PT, CKCKMB, CMP #### [place] [address] Chloride molar conc 100 mmol/L Normal 98-110 [facility] Comment on above: Performed By: #### P TT, NTBNP, HSTNT, CBCDIF, PT, CKCKMB, CMP #### [place] [address] CO2 molar conc 25 mmol/L Normal 23-32 [facility] Comment on above: Performed By: #### P TT, NTBNP, HSTNT, CBCDIF, PT, CKCKMB, CMP #### [place] [id number] Creatinine mass conc 1.59 mg/dL High 0.70-1.40 [facility] Comment on above: Performed By: #### P TT, NTBNP, HSTNT, CBCDIF, PT, CKCKMB, CMP #### [place] [id number] eGFR- Amer. 39 Low >60 [facility] Comment on above: Performed By: #### P TT, NTBNP, HSTNT, CBCDIF, PT, CKCKMB, CMP #### [place] [id number] GFR/1.73 sq M predicted among non-blacks MDRD vol rate/area (S/P/Bld) 32 . Low >60 [facility] Comment on above: Performed By: #### P TT, NTBNP, HSTNT, CBCDIF, PT, CKCKMB, CMP #### [place] [phone] Glucose mass conc 193 mg/dL High 65-100 [facility] Comment on above: Performed By: #### P TT, NTBNP, HSTNT, CBCDIF, PT, CKCKMB, CMP #### [place] [phone] Potassium molar conc 4.1 mmol/L Normal 3.5-5.0 [facility] Comment on above: Performed By: #### P TT, NTBNP, HSTNT, CBCDIF, PT, CKCKMB, CMP #### [place] [phone] Protein mass conc 6.1 g/dL Normal 6.0-8.4 [facility] Comment on above: Performed By: #### P TT, NTBNP, HSTNT, CBCDIF, PT, CKCKMB, CMP #### [place] [phone] Sodium molar conc 139 mmol/L Normal 132-148 [facility] Comment on above: Performed By: #### P TT, NTBNP, HSTNT, CBCDIF, PT, CKCKMB, CMP #### [place] [id number] Urea nitrogen mass conc 37 mg/dL High 8-25 [facility] Comment on above: Performed By: #### P TT, NTBNP, HSTNT, CBCDIF, PT, CKCKMB, CMP #### [phone] NURSING PROGon 07-01-2018 Protein mass conc HNO ID: [id number] Author: Charlotte CabreraRn) ZAK Fox Service: ? Author Type: Registered Nurse Type: Nursing Progress Note Filed: 07/01/2018 6:46 AM Note Text: Nursing Progress Note Patient Name: Sarina Lovett Patient Location: [facility]/ Daily Note: 0510: Pts BP 182/57. Paged house. Orders in system for 10mg Hydralazine IV push. 0538: Hydralazine given at this time. 0644: Recheck of BP 156/59 This note was completed by: Charlotte Fox RN [facility] PROGRESSon 07-01-2018 Protein mass conc HNO ID: [id number] Author: Uzma Graff Service: General Internal Medicine [...] 85 TBILI 0.2 SIGNATURE: Uzma Graff MD [phone] Pager: [facility] CASE MGT INIT Alfredo 2018 CASE MGT INIT [facility] HNO ID: [id number] Author: Bro Wood (Sw) Service: Care Management Author Type: Egg Smeller Type: Care Mgt Initial Assessment Filed: 06/30/2018 11:47 AM Note Text: CARE MANAGEMENT: ASSESSMENT AND DISCHARGE PLAN SERVICE DATE: 06/30/2018 SERVICE TIME: 11:43 AM PRIMARY CARE PHYSICIAN: Sadia Diaz MD ADMISSION STATUS: Inpatient Needs Prior to Discharge: To Be Determined MEDICAL: Patient/Representativ e Stated Goals: To have reduction in symptoms To return home to life as it was Health Insurance[place] [employer] [facility] [place] Issues Impacting Discharge Plan: CHF Last Admission Date: Previous admit date: 03/24/2018 Is this Within the Past 30 days? 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 No SOCIAL: Living Arrangement: Home Lives With: Spouse Financial Resources: Retired Primary Contact: Extended Emergency Contact Information Primary Emergency Contact: Paul Bush Mobile Relation: Relative Secondary Emergency Contact: Daniel Lovett Address: [facility] Mobile Relation: Spouse Supportive: Yes Other Important [...] 0 I feel financially burdened by my mck-zl-smxroo expenses for my prescription medication: Disagree completely [...] use of DME, has been active with [facility] before. No anticipated skilled needs at discharge. Sw will follow for any discharge needs. SIGNATURE: KARRIE FORTE PATIENT NAME: Sarina Lovett DATE: June 30, 2018 TIME: 11:42 AM PAGER/CONTACT #: [phone] [facility] CBCon 06-30-2018 Erythrocyte distribution width Ratio (RBC) 14.4 % Normal 11.5-15.0 [facility] Comment on above: Performed By: #### P TT, NTBNP, HSTNT, CBCDIF, PT, CKCKMB, CMP #### [place] [address] Hematocrit Volume Fraction (Bld) 33.2 % Low 36.0-46.0 [facility] Comment on above: Performed By: #### P TT, NTBNP, HSTNT, CBCDIF, PT, CKCKMB, CMP #### [place] [address] Hemoglobin mass conc (Bld) 10.0 g/dL Low 11.5-15.5 [facility] Comment on above: Performed By: #### P TT, NTBNP, HSTNT, CBCDIF, PT, CKCKMB, CMP #### [place] [address] MCH Entitic mass (RBC) 26.9 pG Normal 26.0-34.0 [facility] Comment on above: Performed By: #### P TT, NTBNP, HSTNT, CBCDIF, PT, CKCKMB, CMP #### [place] [address] MCHC mass conc (RBC) 30.1 g/dL Low 30.5-36.0 [facility] Comment on above: Performed By: #### P TT, NTBNP, HSTNT, CBCDIF, PT, CKCKMB, CMP #### [place] [address] MCV Entitic volume (RBC) 89.2 fL Normal 80.0-100.0 [facility] Comment on above: Performed By: #### P TT, NTBNP, HSTNT, CBCDIF, PT, CKCKMB, CMP #### [place] [address] Platelet mean volume Entitic volume (Bld) 10.0 fL Normal 9.0-12.7 [facility] Comment on above: Performed By: #### P TT, NTBNP, HSTNT, CBCDIF, PT, CKCKMB, CMP #### [place] [phone] Platelets #/vol (Bld) 214 10*3/uL Normal 150-400 [facility] Comment on above: Performed By: #### P TT, NTBNP, HSTNT, CBCDIF, PT, CKCKMB, CMP #### [place] [phone] RBC #/vol (Bld) 3.72 10*6/uL Low 3.90-5.20 [facility] Comment on above: Performed By: #### P TT, NTBNP, HSTNT, CBCDIF, PT, CKCKMB, CMP #### [phone] WBC #/vol (Bld) 5.42 10*3/uL Normal 3.70-11.00 [facility] Comment on above: Performed By: #### P TT, NTBNP, HSTNT, CBCDIF, PT, CKCKMB, CMP #### [place] [phone] CONSULTon 06-30-2018 CONSULT HNO ID: [id number] Author: Deanna Yoo Service: Cardiovascular Medicine Author Type: Nurse Practitioner Type: Consults Filed: 06/30/2018 5:10 PM Note Text: Attestation signed by Joy Browne at 06/30/2018 5:36 PM Will continue with jseus lasmaryellen I have reviewed the documentation obtained and [...] breath, leg edema, and intermittent chest pressure. [place] better in the ED following breathing treatments [...] Coronary atherosclerosis of unspecified type of vessel, [place] or graft Coronary Atherosclerosis - Diabetes (HCC) [...] in this patient's care. SIGNATURE: Deanna Yoo APRN.[facility] cardiology DATE: June 30, 2018 TIME: 12:48 PM Normal [facility] Comp Metabolic Panelon 06-30 Albumin mass conc 3.6 g/dL Normal 3.5-5.0 [facility] Comment on above: Performed By: #### P TT, NTBNP, HSTNT, CBCDIF, PT, CKCKMB, CMP #### [place] [address] ALP enzyme act/vol 93 U/L Normal 34-123 [facility] Comment on above: Performed By: #### P TT, NTBNP, HSTNT, CBCDIF, PT, CKCKMB, CMP #### [place] [address] ALT enzyme act/vol 14 U/L Normal 0-45 [facility] Comment on above: Performed By: #### P TT, NTBNP, HSTNT, CBCDIF, PT, CKCKMB, CMP #### [place] [phone] Anion gap molar conc 13 mmol/L Normal 9-18 [facility] Comment on above: Performed By: #### P TT, NTBNP, HSTNT, CBCDIF, PT, CKCKMB, CMP #### [place] [phone] AST enzyme act/vol 11 U/L Normal 7-40 [facility] Comment on above: Performed By: #### P TT, NTBNP, HSTNT, CBCDIF, PT, CKCKMB, CMP #### [address] Bilirubin mass conc 0.3 mg/dL Normal 0.2-1.3 [facility] Comment on above: Performed By: #### P TT, NTBNP, HSTNT, CBCDIF, PT, CKCKMB, CMP #### [place] [phone] Calcium mass conc 9.0 mg/dL Normal 8.5-10.5 [facility] Comment on above: Performed By: #### P TT, NTBNP, HSTNT, CBCDIF, PT, CKCKMB, CMP #### [place] [phone] Chloride molar conc 105 mmol/L Normal 98-110 [facility] Comment on above: Performed By: #### P TT, NTBNP, HSTNT, CBCDIF, PT, CKCKMB, CMP #### [phone] CO2 molar conc 26 mmol/L Normal 23-32 [facility] Comment on above: Performed By: #### P TT, NTBNP, HSTNT, CBCDIF, PT, CKCKMB, CMP #### [place] [phone] Creatinine mass conc 1.27 mg/dL Normal 0.70-1.40 [facility] Comment on above: Result Comment: Revi ewed Performed By: #### P TT, NTBNP, HSTNT, CBCDIF, PT, CKCKMB, CMP #### [place] [phone] eGFR- Amer. 50 Low >60 [facility] Comment on above: Performed By: #### P TT, NTBNP, HSTNT, CBCDIF, PT, CKCKMB, CMP #### [place] [id number] GFR/1.73 sq M predicted among non-blacks MDRD vol rate/area (S/P/Bld) 41 . Low >60 [facility] Comment on above: Performed By: #### P TT, NTBNP, HSTNT, CBCDIF, PT, CKCKMB, CMP #### [place] [address] Glucose mass conc 232 mg/dL High 65-100 [facility] Comment on above: Performed By: #### P TT, NTBNP, HSTNT, CBCDIF, PT, CKCKMB, CMP #### [place] [address] Potassium molar conc 5.8 mmol/L High 3.5-5.0 [facility] Comment on above: Result Comment: Revi ewed Performed By: #### P TT, NTBNP, HSTNT, CBCDIF, PT, CKCKMB, CMP #### [place] [phone] Protein mass conc 7.0 g/dL Normal 6.0-8.4 [facility] Comment on above: Performed By: #### P TT, NTBNP, HSTNT, CBCDIF, PT, CKCKMB, CMP #### [facility] [address] [place] [address] Sodium molar conc 144 mmol/L Normal 132-148 [facility] Comment on above: Performed By: #### P TT, NTBNP, HSTNT, CBCDIF, PT, CKCKMB, CMP #### [facility] [address] [place] [phone] Urea nitrogen mass conc 22 mg/dL Normal 8-25 [facility] Comment on above: Performed By: #### P TT, NTBNP, HSTNT, CBCDIF, PT, CKCKMB, CMP #### [place] [id number] [place] [phone] HISTORY PHYSICALon HISTORY PHYSICAL HNO ID: [id number] Author: Uzma Graff Service: General Internal Medicine [...] Coronary atherosclerosis of unspecified type of vessel, [place] or graft Coronary Atherosclerosis - Diabetes (HCC) [...] June 30, 2018 TIME: 11:36 AM Normal [facility] Magnesiumon 06-30-2018 Magnesium mass conc 2.2 mg/dL Normal 1.7-2.6 [facility] Comment on above: Result Comment: Revi ewed Performed By: #### P TT, NTBNP, HSTNT, CBCDIF, PT, CKCKMB, CMP #### [place] [address] NURSING PROGon 06-30-2018 Protein mass conc HNO ID: [id number] Author: Kiko CabreraRn) ZAK Gillespie Service: ? Author Type: Registered Nurse Type: Nursing Progress Note Filed: 06/30/2018 6:39 PM Note Text: Nursing Progress Note Patient Name: Sarina Lovett Patient Location: [facility]2B24/CD3M-33 Daily Note: 0900 monitor SR B3. denies [...] ordered/started. ECHO ordered. continue assess. 1400 Cardiovascular [facility]ARN[facility]ENDER in to see pt. orders received. Coreg increased for dinnertime and given. ECHO to be completed. Dr. Browne in to see pt with orders. call mcdaniels in reach. continue assess. 1800 BP 151/60. hr 62. denies cp, dizziness, or palpitations. call mcdaniels in reach. continue assess. This note was completed by: Kiko Gillespie RN [facility] ALLIED HEALTHon 06-29-2018 ALLIED HEALTH HNO ID: [id number] Author: Radha CabreraRtAmanda Cherry Service: Radiology Author Type: Court Recorder Type: Allied Health Filed: 06/29/2018 1:04 PM [...] RT Lainey June 29, 2018 1:03 PM [facility] ALLIED HEALTH HNO ID: [id number] Author: Amanda Retana (Rt) Service: Radiology Author Type: Court Recorder Type: Allied Health Filed: 06/29/2018 1:02 PM [...] SIGNED BY: RT Lainey June 29, 2018 1:02 PM [facility] CBC and Differentialon 06-29 Abs Baso 0.03 k/uL Normal <0.11 [facility] Comment on above: Performed By: #### P TT, NTBNP, HSTNT, CBCDIF, PT, CKCKMB, CMP #### [place] [phone] Abs Grant 0.67 k/uL Normal <0.87 [facility] Comment on above: Performed By: #### P TT, NTBNP, HSTNT, CBCDIF, PT, CKCKMB, CMP #### [place] [phone] Abs Neut 8.15 k/uL High 1.45-7.50 [facility] Comment on above: Performed By: #### P TT, NTBNP, HSTNT, CBCDIF, PT, CKCKMB, CMP #### [address] Absolute nRBC <0.01 Normal <0.01 [facility] Comment on above: Performed By: #### P TT, NTBNP, HSTNT, CBCDIF, PT, CKCKMB, CMP #### [place] [id number] Basophils/100 WBC (Bld) 0.3 % Normal [facility] Comment on above: Performed By: #### P TT, NTBNP, HSTNT, CBCDIF, PT, CKCKMB, CMP #### [place] [address] DTYPE Auto Diff Normal [facility] Comment on above: Performed By: #### P TT, NTBNP, HSTNT, CBCDIF, PT, CKCKMB, CMP #### [place] [address] Eosinophils #/vol (Bld) 0.03 10*3/uL Normal <0.46 [facility] Comment on above: Performed By: #### P TT, NTBNP, HSTNT, CBCDIF, PT, CKCKMB, CMP #### [address] Eosinophils/100 WBC (Bld) 0.3 % Normal [facility] Comment on above: Performed By: #### P TT, NTBNP, HSTNT, CBCDIF, PT, CKCKMB, CMP #### [place] [address] Erythrocyte distribution width Ratio (RBC) 14.5 % Normal 11.5-15.0 [facility] Comment on above: Performed By: #### P TT, NTBNP, HSTNT, CBCDIF, PT, CKCKMB, CMP #### [address] Hematocrit Volume Fraction (Bld) 33.8 % Low 36.0-46.0 [facility] Comment on above: Performed By: #### P TT, NTBNP, HSTNT, CBCDIF, PT, CKCKMB, CMP #### [place] [address] Hemoglobin mass conc (Bld) 10.5 g/dL Low 11.5-15.5 [facility] Comment on above: Performed By: #### P TT, NTBNP, HSTNT, CBCDIF, PT, CKCKMB, CMP #### [place] [address] Lymphocytes #/vol (Bld) 0.90 10*3/uL Low 1.00-4.00 [facility] Comment on above: Performed By: #### P TT, NTBNP, HSTNT, CBCDIF, PT, CKCKMB, CMP #### [place] [address] Lymphocytes/100 WBC (Bld) 9.2 % Normal [facility] Comment on above: Performed By: #### P TT, NTBNP, HSTNT, CBCDIF, PT, CKCKMB, CMP #### [place] [address] MCH Entitic mass (RBC) 27.3 pG Normal 26.0-34.0 [facility] Comment on above: Performed By: #### P TT, NTBNP, HSTNT, CBCDIF, PT, CKCKMB, CMP #### [place] [address] MCHC mass conc (RBC) 31.1 g/dL Normal 30.5-36.0 [facility] Comment on above: Performed By: #### P TT, NTBNP, HSTNT, CBCDIF, PT, CKCKMB, CMP #### [place] [id number] MCV Entitic volume (RBC) 88.0 fL Normal 80.0-100.0 [facility] Comment on above: Performed By: #### P TT, NTBNP, HSTNT, CBCDIF, PT, CKCKMB, CMP #### [place] [id number] Monocytes/100 WBC (Bld) 6.9 % Normal [facility] Comment on above: Performed By: #### P TT, NTBNP, HSTNT, CBCDIF, PT, CKCKMB, CMP #### [place] [id number] Neutrophils/100 WBC (Bld) 83.3 % Normal [facility] Comment on above: Performed By: #### P TT, NTBNP, HSTNT, CBCDIF, PT, CKCKMB, CMP #### [place] [id number] NRBCs 0.0 /100 WBC Normal 0 [facility] Comment on above: Performed By: #### P TT, NTBNP, HSTNT, CBCDIF, PT, CKCKMB, CMP #### [place] [id number] Platelet mean volume Entitic volume (Bld) 10.3 fL Normal 9.0-12.7 [facility] Comment on above: Performed By: #### P TT, NTBNP, HSTNT, CBCDIF, PT, CKCKMB, CMP #### [phone] Platelets #/vol (Bld) 281 10*3/uL Normal 150-400 [facility] Comment on above: Performed By: #### P TT, NTBNP, HSTNT, CBCDIF, PT, CKCKMB, CMP #### [place] [id number] RBC #/vol (Bld) 3.84 10*6/uL Low 3.90-5.20 [facility] Comment on above: Performed By: #### P TT, NTBNP, HSTNT, CBCDIF, PT, CKCKMB, CMP #### [place] [id number] WBC #/vol (Bld) 9.78 10*3/uL Normal 3.70-11.00 [facility] Comment on above: Performed By: #### P TT, NTBNP, HSTNT, CBCDIF, PT, CKCKMB, CMP #### [place] [address] Comp Metabolic Panelon 06-29 Albumin mass conc 3.8 g/dL Normal 3.5-5.0 [facility] Comment on above: Performed By: #### P TT, NTBNP, HSTNT, CBCDIF, PT, CKCKMB, CMP #### [place] [id number] ALP enzyme act/vol 96 U/L Normal 34-123 [facility] Comment on above: Performed By: #### P TT, NTBNP, HSTNT, CBCDIF, PT, CKCKMB, CMP #### [place] [phone] ALT enzyme act/vol 17 U/L Normal 0-45 [facility] Comment on above: Performed By: #### P TT, NTBNP, HSTNT, CBCDIF, PT, CKCKMB, CMP #### [place] [phone] Anion gap molar conc 14 mmol/L Normal 9-18 [facility] Comment on above: Performed By: #### P TT, NTBNP, HSTNT, CBCDIF, PT, CKCKMB, CMP #### [place] [phone] AST enzyme act/vol 16 U/L Normal 7-40 [facility] Comment on above: Performed By: #### P TT, NTBNP, HSTNT, CBCDIF, PT, CKCKMB, CMP #### [place] [phone] Bilirubin mass conc 0.5 mg/dL Normal 0.2-1.3 [facility] Comment on above: Performed By: #### P TT, NTBNP, HSTNT, CBCDIF, PT, CKCKMB, CMP #### [place] [phone] Calcium mass conc 8.7 mg/dL Normal 8.5-10.5 [facility] Comment on above: Performed By: #### P TT, NTBNP, HSTNT, CBCDIF, PT, CKCKMB, CMP #### [place] [phone] Chloride molar conc 103 mmol/L Normal 98-110 [facility] Comment on above: Performed By: #### P TT, NTBNP, HSTNT, CBCDIF, PT, CKCKMB, CMP #### [place] [phone] CO2 molar conc 23 mmol/L Normal 23-32 [facility] Comment on above: Performed By: #### P TT, NTBNP, HSTNT, CBCDIF, PT, CKCKMB, CMP #### [place] [phone] Creatinine mass conc 1.02 mg/dL Normal 0.70-1.40 [facility] Comment on above: Performed By: #### P TT, NTBNP, HSTNT, CBCDIF, PT, CKCKMB, CMP #### [place] [phone] eGFR- Amer. >60 Normal >60 [facility] Comment on above: Performed By: #### P TT, NTBNP, HSTNT, CBCDIF, PT, CKCKMB, CMP #### [place] [phone] GFR/1.73 sq M predicted among non-blacks MDRD vol rate/area (S/P/Bld) 53 . Low >60 [facility] Comment on above: Performed By: #### P TT, NTBNP, HSTNT, CBCDIF, PT, CKCKMB, CMP #### [place] [phone] Glucose mass conc 154 mg/dL High 65-100 [facility] Comment on above: Performed By: #### P TT, NTBNP, HSTNT, CBCDIF, PT, CKCKMB, CMP #### [place] [phone] Potassium molar conc 3.2 mmol/L Low 3.5-5.0 [facility] Comment on above: Performed By: #### P TT, NTBNP, HSTNT, CBCDIF, PT, CKCKMB, CMP #### [place] [phone] Protein mass conc 7.1 g/dL Normal 6.0-8.4 [facility] Comment on above: Performed By: #### P TT, NTBNP, HSTNT, CBCDIF, PT, CKCKMB, CMP #### [place] [phone] Sodium molar conc 140 mmol/L Normal 132-148 [facility] Comment on above: Performed By: #### P TT, NTBNP, HSTNT, CBCDIF, PT, CKCKMB, CMP #### [place] [phone] Urea nitrogen mass conc 16 mg/dL Normal 8-25 [facility] Comment on above: Performed By: #### P TT, NTBNP, HSTNT, CBCDIF, PT, CKCKMB, CMP #### [place] [phone] ECG COMPLETEon 06-29-2018 ECG COMPLETE NAME : SARINA LOVETT PID : [id number] : 1945 Gender : Female Race : ORD : [id number] Procedure Date : Jun 29 2018 11:05:45 Edit Date : Jun 29 2018 18:18:45 Diagnosis:SINUS RHYTHM 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 HYPERTROPHY Abnormal ECG 1109 Confirmed by MD ÁLVAREZ ANDREW ([id number]), editorial assistant RUBI WARNER ([id number]) on 06/29/2018 6:18:39 PM Ventricular Rate : 75 BPM Atrial Rate : 76 BPM P-R Interval : 216 ms QRS Duration : 170 ms Q-T Interval : 476 ms QTC Calculation(Bezet) : 532 ms P [place] : 5 degrees R [place] : -64 degrees T [place] : 65 degrees Test Reason : Chest Pain Location : 402 : FVED RW Overread By : MD ÁLVAREZ ANDREW Edited By : RUBI WARNER Referred By : , Acquired by : Michelle DELEON [facility] ED PROV NOTEon 06-29-2018 Protein mass conc HNO ID: [id number] Author: Juanito Álvarez MD Service: Emergency Medicine [...] 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 - Aortic valve disorders - Cancer (HCC) - Coronary atherosclerosis of unspecified type of vessel, [place] or graft Coronary Atherosclerosis - Diabetes (HCC) [...] hypokalemia at 3.2. No metabolic dysfunction. ProBNP >94088, trop mildly elevated above baseline 42 CXR [...] x-ray with evidence of mild congestion, proBNP >70752, patient with peripheral edema and dyspnea on [...] of care The patient was ADMITTED TO: [facility]. Case discussed with admitting physician, Dr. Graff. Condition at time of disposition: stable SIGNATURE: DENISHA Kimbrough) DENISHA Ortiz 06/29/18 1402 Haydee Devine) DENISHA Ortiz 06/29/18 1403 Attending Note I have personally performed a face to face assessment of the patient and have reviewed the PA/GARDEN CENTER MANAGER note. My olivera findings include: Patient with [...] Time: 6:16 PM Juanito Álvarez MD 06/29/18 3592 Normal [facility] High Sens Troponin Ton 06-29 High Sensitivity ANGE 42 ng/L High <12 [facility] Comment on above: Result Comment: When [...] NTBNP, HSTNT, CBCDIF, PT, CKCKMB, CMP #### [place] [phone] High Sensitivity ANGE 42 ng/L High <12 [facility] Comment on above: Result Comment: When [...] NTBNP, HSTNT, CBCDIF, PT, CKCKMB, CMP #### [place] [phone] Magnesiumon 06-29-2018 Magnesium mass conc 1.6 mg/dL Low 1.7-2.6 [facility] Comment on above: Performed By: #### P TT, NTBNP, HSTNT, CBCDIF, PT, CKCKMB, CMP #### [place] [phone] NT Pro BNPon 06-29-2018 Protein mass conc g/dL High <125 [facility] Comment on above: Result Comment: Resu lt checked and verified Performed By: #### P TT, NTBNP, HSTNT, CBCDIF, PT, CKCKMB, CMP #### [place] [phone] NURSING PROGon 06-29-2018 Protein mass conc HNO ID: [id number] Author: Nicole Ronquillo (Rn) ZAK Jacome Service: ? Author Type: Registered Nurse Type: Nursing Progress Note Filed: 06/29/2018 6:28 PM Note Text: Nursing Progress Note Patient Name: Sarina Lovett Patient Location: / Daily Note:1612 Pt arrived from ED via [...] Graff. Will continue to assess. Safety maintained. 172 Dr Graff called, see new orders. Will continue to assess. 182 Paged house doctor, for mag orders, mag level resulted 1.6. Will continue to assess. This note was completed by: Nicole Jacome RN [facility] XR CHEST 1V FRONTAL PORTon 0 06-29-2018 [...] sternotomy. Other: . IMPRESSION: Cardiomegaly and congestion. Mill Supervisor: PSCB Transcribe Date/Time: Jun 29 2018 12:57P Dictated by : KIRSTIE ANDRADE MD This examination was interpreted and the report reviewed and electronically signed by: KIRSTIE ANDRADE MD on Jun 29 2018 12:57PM EST [id number] N [facility] ALLIED HEALTHon 06-06-2018 ALLIED HEALTH HNO ID: [id number] Author: Amanda Morales (Tech) Service: ? Author Type: Court Recorder Type: Allied Health Filed: 06/06/2018 3:28 PM [...] Amanda Morales June 06, 2018 3:27 PM [facility] ED NOTEon 06-06-2018 ED NOTE HNO ID: [id number] Author: Akosua Payton) ZAK Johnston Service: ? Author Type: Registered Nurse Type: ED Notes Filed: 06/06/2018 4:05 PM Note Text: Bed: 67-ED Expected date: Expected time: Means of arrival: Comments: [facility] ED PROV NOTEon 06-06-2018 Protein mass conc HNO ID: [id number] Author: Loretta Duran MD Service: Emergency Medicine [...] Coronary atherosclerosis of unspecified type of vessel, [place] or graft Coronary Atherosclerosis - Diabetes (HCC) [...] Clinical Impression Clinical Impressions as of Jun 06 162 Left foot pain MDM / Disposition / [...] SIGNATURE: MD Loretta Santana MD 06/06/18 1625 [facility] ED Triage Noteon 06-06-2018 ED Triage Note HNO ID: [id number] Author: Lissette Mondragon (Pa) Service: Emergency Medicine Author Type: Physician Pt Escort Type: ED Triage Notes Filed: 06/06/2018 3:02 PM Note Text: Initial Provider Assessment: HPI: 73 year old female with complaint of left foot injury. Exam: Reviewed nursing notes and vitals Heent: PERRLA, Oropharynx normal. Ext: Mild swelling and tenderness to left lateral foot Plan: assess in ER Lissette Mondragon PA-C [facility] XR FOOT 3V AP/LAT/OBL LTon 0 06-06-2018 [...] unremarkable. IMPRESSION: NO ACUTE ABNORMALITY IS IDENTIFIED. Mill Supervisor: PSCB Transcribe Date/Time: Jun 06 2018 3:44P Dictated by : RADHA MCNEIL MD This examination was interpreted and the report reviewed and electronically signed by: RADHA MCNEIL MD on Jun 06 2018 3:46PM EST [id number] N [facility] OBSOLETEon 06-02-2018 OBSOLETE Refill (ENRICOFV) SARINA LOVETT ([id number]) 1945 F Date Time Provider Department 06/02/18 Joy BROWNE DORIS SHAHRZAD During your visit today, we recorded the following information about you: Heidi Ordaz Director Corporate Security II 06/02/2018 5:21 PM Signed Patient phones requesting refills as follows: Pending Prescriptions Disp Refills NITROGLYCERIN 0.4 MG SUBLINGUAL TABLET 25 tablet 5 Sig: DISSOLVE 1 TABLET UNDER THE TONGUE NEEDED FOR CHEST PAIN MARIO: Yes Please review and advise. Heidi Ordaz Director Corporate Security II Allergies As of Date: 06/02/2018 Noted [...] CAPSULE,LILLY* Take 20 mg by mouth once edlgado* Problem List As Of Date 06/02/2018 Noted [...] Status:Closed by Joy BROWNE MD on 06/04/18 [facility] CNOVon 05-02-2018 CNOV Office Visit (ENRICOFV ) SARINA LOVETT ([id number]) 1945 F Date Time Provider Department 05/02/18 11:30 AM Joy BROWNE During your visit today, we recorded the following information about you: Pulse Blood pressure Weight Height 80/minute 145/90 73.8 kg 1.702 m Joy Browne MD 05/02/2018 11:59 AM Written Joy Browne MD 05/02/2018 12:08 PM Signed [facility] Department of Cardiovascular Medicine [facility] OUTPATIENT VISIT DATE May 02, 2018 OUTPATIENT VISIT TYPE Established Patient PRIMARY CARE PHYSICIAN: Sadia Diaz MD ([facility]) [address] [place] [address] REFERRING PHYSICIAN: Sacha Ford MD [address] [facility] [phone] CHIEF COMPLAINT: Office Follow-Up Visit HISTORY OF [...] Coronary atherosclerosis of unspecified type of vessel, [place] or graft Coronary Atherosclerosis - Diabetes (HCC) [...] . 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, unspecified vessel or lesion type (HCC) Will resume coreg PLAN AND RECOMMENDATIONS: Lipid is managed and blood testing is done by pcp CONTACT INFORMATION: MD Akash Robbins and Uyen [facility]ough[facility] Department of Cardiovascular Medicine [facility] Cardiology [address] [place] [address] [address] [place] [address] Referring Provider: SACHA SCHROEDER [[id number]] Allergies As of Date: 05/02/2018 Noted Allergy [...] Visit Diagnoses:Atheroscler osis of coronary artery of [place] heart with unstable angina pectoris, unspecified vessel [...] Status:Closed by Joy BROWNE MD on 05/02/18 [facility] PROGRESSon 05-02-2018 Protein mass conc HNO ID: [id number] Author: Joy Browne Service: ? Author Type: Physician Type: Progress Notes Filed: 05/02/2018 12:08 PM Note Text: [facility] Department of Cardiovascular Medicine [facility] OUTPATIENT VISIT DATE May 02, 2018 OUTPATIENT VISIT TYPE Established Patient PRIMARY CARE PHYSICIAN: Sadia Diaz MD ([facility]) [address] [facility] [address] [place] [address] REFERRING PHYSICIAN: Sacha Ford MD [address] [facility] [phone] CHIEF COMPLAINT: Office Follow-Up Visit HISTORY OF [...] Coronary atherosclerosis of unspecified type of vessel, [place] or graft Coronary Atherosclerosis - Diabetes (HCC) [...] . 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 ALLIED HEALTH 04-08-2018 ALLIED HEALTH HNO ID: [id number] Author: 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 Service: Cardiovascular Surgery Author Type: Nurse Practitioner Type: Allied Health Filed: 05/02/2018 12:17 PM Note Text: Addendum: Admission Date: 03/26/2018 NYHA Class III 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, NAPHTHALENE OPERATOR HELPER.BHARAT [facility] Basic Metabolic Panlon 04-08 Anion gap molar conc 12 mmol/L Normal 9-18 [facility] Comment on above: Performed By: #### P TT, NTBNP, HSTNT, CBCDIF, PT, CKCKMB, CMP #### [place] [phone] Calcium mass conc 8.7 mg/dL Normal 8.5-10.5 [facility] Comment on above: Performed By: #### P TT, NTBNP, HSTNT, CBCDIF, PT, CKCKMB, CMP #### [place] [phone] Chloride molar conc 97 mmol/L Low 98-110 [facility] Comment on above: Performed By: #### P TT, NTBNP, HSTNT, CBCDIF, PT, CKCKMB, CMP #### [place] [id number] CO2 molar conc 30 mmol/L Normal 23-32 [facility] Comment on above: Performed By: #### P TT, NTBNP, HSTNT, CBCDIF, PT, CKCKMB, CMP #### [place] [id number] Creatinine mass conc 1.70 mg/dL High 0.70-1.40 [facility] Comment on above: Performed By: #### P TT, NTBNP, HSTNT, CBCDIF, PT, CKCKMB, CMP #### [place] [id number] eGFR- Amer. 36 Low >60 [facility] Comment on above: Performed By: #### P TT, NTBNP, HSTNT, CBCDIF, PT, CKCKMB, CMP #### [place] [id number] GFR/1.73 sq M predicted among non-blacks MDRD vol rate/area (S/P/Bld) 30 . Low >60 [facility] Comment on above: Performed By: #### P TT, NTBNP, HSTNT, CBCDIF, PT, CKCKMB, CMP #### [place] [address] Glucose mass conc 142 mg/dL High 65-100 [facility] Comment on above: Performed By: #### P TT, NTBNP, HSTNT, CBCDIF, PT, CKCKMB, CMP #### [place] [address] Potassium molar conc 4.6 mmol/L Normal 3.5-5.0 [facility] Comment on above: Performed By: #### P TT, NTBNP, HSTNT, CBCDIF, PT, CKCKMB, CMP #### [place] [address] Sodium molar conc 139 mmol/L Normal 132-148 [facility] Comment on above: Performed By: #### P TT, NTBNP, HSTNT, CBCDIF, PT, CKCKMB, CMP #### [address] Urea nitrogen mass conc 53 mg/dL High 8-25 [facility] Comment on above: Performed By: #### P TT, NTBNP, HSTNT, CBCDIF, PT, CKCKMB, CMP #### [place] [address] CBC and Differentialon 04-08 Abs Baso <0.03 Normal <0.11 [facility] Comment on above: Performed By: #### P TT, NTBNP, HSTNT, CBCDIF, PT, CKCKMB, CMP #### [place] [id number] Abs Grant 0.60 k/uL Normal <0.87 [facility] Comment on above: Performed By: #### P TT, NTBNP, HSTNT, CBCDIF, PT, CKCKMB, CMP #### [place] [id number] Abs Neut 6.77 k/uL Normal 1.45-7.50 [facility] Comment on above: Performed By: #### P TT, NTBNP, HSTNT, CBCDIF, PT, CKCKMB, CMP #### [place] [id number] Basophils/100 WBC (Bld) 0.2 % Normal [facility] Comment on above: Performed By: #### P TT, NTBNP, HSTNT, CBCDIF, PT, CKCKMB, CMP #### [place] [phone] DTYPE Auto Diff Normal [facility] Comment on above: Performed By: #### P TT, NTBNP, HSTNT, CBCDIF, PT, CKCKMB, CMP #### [place] [phone] Eosinophils #/vol (Bld) 0.11 10*3/uL Normal <0.46 [facility] Comment on above: Performed By: #### P TT, NTBNP, HSTNT, CBCDIF, PT, CKCKMB, CMP #### [address] Eosinophils/100 WBC (Bld) 1.3 % Normal [facility] Comment on above: Performed By: #### P TT, NTBNP, HSTNT, CBCDIF, PT, CKCKMB, CMP #### [address] Erythrocyte distribution width Ratio (RBC) 13.8 % Normal 11.5-15.0 [facility] Comment on above: Performed By: #### P TT, NTBNP, HSTNT, CBCDIF, PT, CKCKMB, CMP #### [place] [id number] Hematocrit Volume Fraction (Bld) 29.6 % Low 36.0-46.0 [facility] Comment on above: Performed By: #### P TT, NTBNP, HSTNT, CBCDIF, PT, CKCKMB, CMP #### [place] [address] Hemoglobin mass conc (Bld) 9.4 g/dL Low 11.5-15.5 [facility] Comment on above: Performed By: #### P TT, NTBNP, HSTNT, CBCDIF, PT, CKCKMB, CMP #### [place] [address] Lymphocytes #/vol (Bld) 1.16 10*3/uL Normal 1.00-4.00 [facility] Comment on above: Performed By: #### P TT, NTBNP, HSTNT, CBCDIF, PT, CKCKMB, CMP #### [place] [address] Lymphocytes/100 WBC (Bld) 13.4 % Normal [facility] Comment on above: Performed By: #### P TT, NTBNP, HSTNT, CBCDIF, PT, CKCKMB, CMP #### [place] [address] MCH Entitic mass (RBC) 29.3 pG Normal 26.0-34.0 [facility] Comment on above: Performed By: #### P TT, NTBNP, HSTNT, CBCDIF, PT, CKCKMB, CMP #### [place] [address] MCHC mass conc (RBC) 31.8 g/dL Normal 30.5-36.0 [facility] Comment on above: Performed By: #### P TT, NTBNP, HSTNT, CBCDIF, PT, CKCKMB, CMP #### [place] [id number] MCV Entitic volume (RBC) 92.2 fL Normal 80.0-100.0 [facility] Comment on above: Performed By: #### P TT, NTBNP, HSTNT, CBCDIF, PT, CKCKMB, CMP #### [place] [id number] Monocytes/100 WBC (Bld) 6.9 % Normal [facility] Comment on above: Performed By: #### P TT, NTBNP, HSTNT, CBCDIF, PT, CKCKMB, CMP #### [place] [id number] Neutrophils/100 WBC (Bld) 78.2 % Normal [facility] Comment on above: Performed By: #### P TT, NTBNP, HSTNT, CBCDIF, PT, CKCKMB, CMP #### [id number] Platelet mean volume Entitic volume (Bld) 10.0 fL Normal 9.0-12.7 [facility] Comment on above: Performed By: #### P TT, NTBNP, HSTNT, CBCDIF, PT, CKCKMB, CMP #### [place] [id number] Platelets #/vol (Bld) 225 10*3/uL Normal 150-400 [facility] Comment on above: Performed By: #### P TT, NTBNP, HSTNT, CBCDIF, PT, CKCKMB, CMP #### [place] [id number] RBC #/vol (Bld) 3.21 10*6/uL Low 3.90-5.20 [facility] Comment on above: Performed By: #### P TT, NTBNP, HSTNT, CBCDIF, PT, CKCKMB, CMP #### [place] [id number] WBC #/vol (Bld) 8.66 10*3/uL Normal 3.70-11.00 [facility] Comment on above: Performed By: #### P TT, NTBNP, HSTNT, CBCDIF, PT, CKCKMB, CMP #### [place] [phone] CNDSon 04-08-2018 [facility] HNO ID: [id number] Author: Neftali Layton Service: General Internal Medicine [...] (HCC) 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 Andree Peters When: In 1 [...] in SVG to RCA. Patient transferred to [facility] on 03/29, back to [facility] on 04/02 for increased SOB and significantly elevated troponin. Now back on [facility] Acute hypoxic respiratory failure CHF and pulmonary edema ; history of tobacco abuse Suspect worsening respiratory status due to CHF and possible underlying COPD. Required CPAP again on 04/02 and was transferred back to [facility]. CXR with significant pulmonary edema R>L, [...] APPOINTMENTS ALREADY SCHEDULED WITH A [facility] PROVIDER: No future appointments. Discharge Information Row Name ED to Hosp-Admission (Current) from 03/24/[address] [facility] [...] DATE: April 08, 2018 TIME: 1:09 PM [facility] Magnesiumon 04-08-2018 Magnesium mass conc 1.8 mg/dL Normal 1.7-2.6 [facility] Comment on above: Performed By: #### P TT, NTBNP, HSTNT, CBCDIF, PT, CKCKMB, CMP #### [facility] [address] [place] [address] NURSING PROGon 04-08-2018 Protein mass conc HNO ID: [id number] Author: Emi CabreraRn) ZAK Jo Service: (none) Author Type: Registered Nurse Type: Nursing Progress Note Filed: 04/08/2018 3:12 PM Note Text: Nursing Progress Note Patient Name: Sarina Lovett Patient Location: /10 Daily Note: Discharge instructions reviewed with pt. She is dressed and waiting for her ride home. This note was completed by: Emi Jo RN [facility] Protein mass conc HNO ID: [id number] Author: Emi CabreraRn) ZAK Jo Service: (none) Author Type: Registered Nurse Type: Nursing Progress Note Filed: 04/08/2018 1:21 PM Note Text: Nursing Progress Note Patient Name: Sarina Lovett Patient Location: / Daily Note: Pt. is feeling well today and is ready for d/c home. She is up in room with standby assist. Browning pulled at 0800 and she has voided 300 ml. Pt. denies pain. Heplock and telemetry pack removed. Pt. is getting dressed. This note was completed by: Emi Jo RN [facility] PLAN OF CAREon 04-08-2018 PLAN OF CARE HNO ID: [id number] Author: Sandra Grullon (Hydraulic Jack Mechanic) Service: (none) Author Type: Pharmacist Type: Plan of Care Filed: 04/08/2018 1:55 PM Note Text: DISCHARGE MEDICATION REVIEW BY PHARMACY Patient Name: Sarina Lovett Account #: @[email or web address]@ Admission Date: 03/24/2018 Date of Contact: April 08, 2018 Time of Contact: 1:55 PM Medication list was reviewed by a Pharmacist for drug interactions or drug related problems:Yes Below is a summary of pharmacist recommendations discussed with LIP: No Recommendations at this time from Discharge Medication List. SANDRA GRULLON, SOIL ANALYST April 08, 2018 1:55 PM Pager: [phone] 04/08/2018 1:55 PM Medication List START taking [...] Your Medications These medications were sent to [facility] [address] [place] [id number] [phone] [id number] [facility] [phone] [id number] [facility] [id number] Hours: 24-hours ? atorvastatin 80 mg tablet ? carvedilol 3.125 mg tablet ? clopidogrel 75 mg tablet ? furosemide 40 mg tablet ? hydrALAZINE 25 mg tablet ? nitroglycerin sublingual 0.4 mg SL tablet Normal [facility] THERAPY NTon 04-08-2018 THERAPY NT HNO ID: [id number] Author: Yuko (Bell Cleaner) Tommy Service: Respiratory Therapy Author Type: (none) Type: Therapy (PT/OT/Speech/Resp) Filed: 04/07/2018 10:42 PM Note Text: RESPIRATORY THERAPY PROGRESS NOTE SERVICE DATE: 04/07/2018 SERVICE TIME: 2239 Patient is refusing NIV for the night at this time. Will continue to monitor and intervene if necessary. SIGNATURE: Yuko Sanders RRT PATIENT NAME: Sarina Lovett DATE: April 07, 2018 TIME: 10:42 PM PAGER/CONTACT #: Fuentes Martinez [facility] Basic Metabolic Panlon 04-07 Anion gap molar conc 13 mmol/L Normal 9-18 [facility] Comment on above: Performed By: #### P TT, NTBNP, HSTNT, CBCDIF, PT, CKCKMB, CMP #### [place] [phone] Calcium mass conc 8.6 mg/dL Normal 8.5-10.5 [facility] Comment on above: Performed By: #### P TT, NTBNP, HSTNT, CBCDIF, PT, CKCKMB, CMP #### [place] [address] Chloride molar conc 98 mmol/L Normal 98-110 [facility] Comment on above: Performed By: #### P TT, NTBNP, HSTNT, CBCDIF, PT, CKCKMB, CMP #### [place] [address] CO2 molar conc 27 mmol/L Normal 23-32 [facility] Comment on above: Performed By: #### P TT, NTBNP, HSTNT, CBCDIF, PT, CKCKMB, CMP #### [place] [phone] Creatinine mass conc 1.74 mg/dL High 0.70-1.40 [facility] Comment on above: Performed By: #### P TT, NTBNP, HSTNT, CBCDIF, PT, CKCKMB, CMP #### [place] [id number] eGFR- Amer. 35 Low >60 [facility] Comment on above: Performed By: #### P TT, NTBNP, HSTNT, CBCDIF, PT, CKCKMB, CMP #### [place] [address] GFR/1.73 sq M predicted among non-blacks MDRD vol rate/area (S/P/Bld) 29 . Low >60 [facility] Comment on above: Performed By: #### P TT, NTBNP, HSTNT, CBCDIF, PT, CKCKMB, CMP #### [place] [id number] Glucose mass conc 145 mg/dL High 65-100 [facility] Comment on above: Performed By: #### P TT, NTBNP, HSTNT, CBCDIF, PT, CKCKMB, CMP #### [place] [id number] Potassium molar conc 4.5 mmol/L Normal 3.5-5.0 [facility] Comment on above: Performed By: #### P TT, NTBNP, HSTNT, CBCDIF, PT, CKCKMB, CMP #### [place] [phone] Sodium molar conc 138 mmol/L Normal 132-148 [facility] Comment on above: Performed By: #### P TT, NTBNP, HSTNT, CBCDIF, PT, CKCKMB, CMP #### [place] [phone] Urea nitrogen mass conc 60 mg/dL High 8-25 [facility] Comment on above: Performed By: #### P TT, NTBNP, HSTNT, CBCDIF, PT, CKCKMB, CMP #### [place] [phone] CASE MANAGEMon 04-07-2018 CASE MANAGEM HNO ID: [id number] Author: Bro Wood (Sw) Service: Care Management Author Type: Egg Smeller Type: Care Mgt Progress Note Filed: 04/07/2018 11:45 AM Note Text: CARE MANAGEMENT PROGRESS NOTE SERVICE DATE: 04/07/2018 SERVICE TIME: 10:26 AM LOS: 14 days Needs Prior to Discharge: To Be Determined Patient transferred to [facility]. Plan is home health care at discharge. [facility] can accept, home care order needed. Patient may need home O2. Desat study needed. May benefit from [facility] for CHF management. SIGNATURE: KARRIE FORTE PATIENT NAME: Sarina Lovett DATE: April 07, 2018 TIME: 10:26 AM PAGER/CONTACT #: [phone] Normal [facility] CBC and Differentialon 04-07 Abs Baso <0.03 Normal <0.11 [facility] Comment on above: Performed By: #### P TT, NTBNP, HSTNT, CBCDIF, PT, CKCKMB, CMP #### [place] [phone] Abs Grant 0.57 k/uL Normal <0.87 [facility] Comment on above: Performed By: #### P TT, NTBNP, HSTNT, CBCDIF, PT, CKCKMB, CMP #### [place] [phone] Abs Neut 5.40 k/uL Normal 1.45-7.50 [facility] Comment on above: Performed By: #### P TT, NTBNP, HSTNT, CBCDIF, PT, CKCKMB, CMP #### [place] [phone] Basophils/100 WBC (Bld) 0.3 % Normal [facility] Comment on above: Performed By: #### P TT, NTBNP, HSTNT, CBCDIF, PT, CKCKMB, CMP #### [place] [address] DTYPE Auto Diff Normal [facility] Comment on above: Performed By: #### P TT, NTBNP, HSTNT, CBCDIF, PT, CKCKMB, CMP #### [place] [address] Eosinophils #/vol (Bld) 0.12 10*3/uL Normal <0.46 [facility] Comment on above: Performed By: #### P TT, NTBNP, HSTNT, CBCDIF, PT, CKCKMB, CMP #### [place] [address] Eosinophils/100 WBC (Bld) 1.7 % Normal [facility] Comment on above: Performed By: #### P TT, NTBNP, HSTNT, CBCDIF, PT, CKCKMB, CMP #### [place] [address] Erythrocyte distribution width Ratio (RBC) 13.8 % Normal 11.5-15.0 [facility] Comment on above: Performed By: #### P TT, NTBNP, HSTNT, CBCDIF, PT, CKCKMB, CMP #### [place] [address] Hematocrit Volume Fraction (Bld) 29.9 % Low 36.0-46.0 [facility] Comment on above: Performed By: #### P TT, NTBNP, HSTNT, CBCDIF, PT, CKCKMB, CMP #### [place] [address] Hemoglobin mass conc (Bld) 9.3 g/dL Low 11.5-15.5 [facility] Comment on above: Performed By: #### P TT, NTBNP, HSTNT, CBCDIF, PT, CKCKMB, CMP #### [place] [address] Lymphocytes #/vol (Bld) 0.79 10*3/uL Low 1.00-4.00 [facility] Comment on above: Performed By: #### P TT, NTBNP, HSTNT, CBCDIF, PT, CKCKMB, CMP #### [address] Lymphocytes/100 WBC (Bld) 11.4 % Normal [facility] Comment on above: Performed By: #### P TT, NTBNP, HSTNT, CBCDIF, PT, CKCKMB, CMP #### [place] [address] MCH Entitic mass (RBC) 28.9 pG Normal 26.0-34.0 [facility] Comment on above: Performed By: #### P TT, NTBNP, HSTNT, CBCDIF, PT, CKCKMB, CMP #### [place] [address] MCHC mass conc (RBC) 31.1 g/dL Normal 30.5-36.0 [facility] Comment on above: Performed By: #### P TT, NTBNP, HSTNT, CBCDIF, PT, CKCKMB, CMP #### [place] [phone] MCV Entitic volume (RBC) 92.9 fL Normal 80.0-100.0 [facility] Comment on above: Performed By: #### P TT, NTBNP, HSTNT, CBCDIF, PT, CKCKMB, CMP #### [place] [phone] Monocytes/100 WBC (Bld) 8.3 % Normal [facility] Comment on above: Performed By: #### P TT, NTBNP, HSTNT, CBCDIF, PT, CKCKMB, CMP #### [place] [id number] Neutrophils/100 WBC (Bld) 78.3 % Normal [facility] Comment on above: Performed By: #### P TT, NTBNP, HSTNT, CBCDIF, PT, CKCKMB, CMP #### [place] [phone] Platelet mean volume Entitic volume (Bld) 10.2 fL Normal 9.0-12.7 [facility] Comment on above: Performed By: #### P TT, NTBNP, HSTNT, CBCDIF, PT, CKCKMB, CMP #### [place] [phone] Platelets #/vol (Bld) 235 10*3/uL Normal 150-400 [facility] Comment on above: Performed By: #### P TT, NTBNP, HSTNT, CBCDIF, PT, CKCKMB, CMP #### [place] [phone] RBC #/vol (Bld) 3.22 10*6/uL Low 3.90-5.20 [facility] Comment on above: Performed By: #### P TT, NTBNP, HSTNT, CBCDIF, PT, CKCKMB, CMP #### [place] [phone] WBC #/vol (Bld) 6.90 10*3/uL Normal 3.70-11.00 [facility] Comment on above: Performed By: #### P TT, NTBNP, HSTNT, CBCDIF, PT, CKCKMB, CMP #### [place] [phone] CONSULT PROGon 04-07-2018 Protein mass conc HNO ID: [id number] Author: Clif Dhillon Service: Nephrology Author Type: [...] Pulse: 71 60 61 (!) 59 Resp: Temp: 36.3 ?C (97.3 ?F) TempSrc: Temporal Artery SpO2: 95% 100% 99% 97% Weight: Height: INTAKE/OUTPUT: Intake/Output Summary (Last 24 hours) at 04/07/18 1133 Last data filed at 04/07/18 0618 Gross per 24 hour Intake 34.1 ml Output 1395 ml Net -1360.9 ml Physical Exam: Gen: NAD Skin:no rash Heent: AT ID Neck: no JVD CVS: RRR s1s2 Resp: [...] 2-3 weeks Clif Jarvis MD [facility] Normal [facility] Magnesiumon 04-07-2018 Magnesium mass conc 1.9 mg/dL Normal 1.7-2.6 [facility] Comment on above: Performed By: #### P TT, NTBNP, HSTNT, CBCDIF, PT, CKCKMB, CMP #### [facility] [address] [place] [address] PROGRESSon 04-07-2018 Protein mass conc HNO ID: [id number] Author: Jose Jack Service: Pulmonary Disease Author [...] be extrapolated by contextual derivation. ?? Normal [facility] Protein mass conc HNO ID: [id number] Author: Joy Browne Service: Cardiovascular Disease Author Type: Physician Type: Progress Notes Filed: 04/07/2018 1:11 PM Note Text: Doing very well No sob no chest pain Renal improving Cxr improved. Stable on current rx Ok for discharge Follow up as out patient In one week Continue present treatment No los due to akd Normal [facility] Protein mass conc HNO ID: [id number] Author: Andree Peters Service: General Internal Medicine [...] in SVG to RCA. Patient transferred to [facility] on 03/29, back to [facility] on 04/02 for increased SOB and significantly elevated troponin. Now back on [facility] ? Acute hypoxic respiratory failure CHF and pulmonary edema ; history of tobacco abuse Suspect worsening respiratory status due to CHF and possible underlying COPD. Required CPAP again on 04/02 and was transferred back to [facility]. CXR with significant pulmonary edema R>L, [...] home, last A1c 9.3% in 08/2016 at [facility]. Repeat A1c on admission 6.0%. - SSI1 [...] 03/24/182044 vte non-pharmacologic prophylaxis - none indicated (tx,ok) 03/24/182044 activity - mobilize patient ([place] [address], [place]) VTE Prophylaxis: VTE prophylaxis appropriate SIGNATURE: Andree Peters MD PATIENT NAME: Sarina Lovett DATE: April 07, 2018 TIME: 10:11 AM PAGER: [facility] 04-06-2018 ALLIED HEALTH HNO ID: [id number] Author: Gwendolyn (RtAmanda Benítez Service: Radiology Author Type: Court Recorder Type: Allied Health Filed: 04/06/2018 6:24 AM [...] RT Arya April 06, 2018 6:23 AM Normal [facility] Basic Metabolic Panlon 04-06 Anion gap molar conc 11 mmol/L Normal 9-18 [facility] Comment on above: Performed By: #### P TT, NTBNP, HSTNT, CBCDIF, PT, CKCKMB, CMP #### [place] [address] Calcium mass conc 8.7 mg/dL Normal 8.5-10.5 [facility] Comment on above: Performed By: #### P TT, NTBNP, HSTNT, CBCDIF, PT, CKCKMB, CMP #### [place] [phone] Chloride molar conc 97 mmol/L Low 98-110 [facility] Comment on above: Performed By: #### P TT, NTBNP, HSTNT, CBCDIF, PT, CKCKMB, CMP #### [place] [phone] CO2 molar conc 29 mmol/L Normal 23-32 [facility] Comment on above: Performed By: #### P TT, NTBNP, HSTNT, CBCDIF, PT, CKCKMB, CMP #### [place] [phone] Creatinine mass conc 1.89 mg/dL High 0.70-1.40 [facility] Comment on above: Performed By: #### P TT, NTBNP, HSTNT, CBCDIF, PT, CKCKMB, CMP #### [place] [address] eGFR- Amer. 32 Low >60 [facility] Comment on above: Performed By: #### P TT, NTBNP, HSTNT, CBCDIF, PT, CKCKMB, CMP #### [address] GFR/1.73 sq M predicted among non-blacks MDRD vol rate/area (S/P/Bld) 26 . Low >60 [facility] Comment on above: Performed By: #### P TT, NTBNP, HSTNT, CBCDIF, PT, CKCKMB, CMP #### [address] Glucose mass conc 134 mg/dL High 65-100 [facility] Comment on above: Performed By: #### P TT, NTBNP, HSTNT, CBCDIF, PT, CKCKMB, CMP #### [place] [phone] Potassium molar conc 5.1 mmol/L High 3.5-5.0 [facility] Comment on above: Performed By: #### P TT, NTBNP, HSTNT, CBCDIF, PT, CKCKMB, CMP #### [place] [id number] Sodium molar conc 137 mmol/L Normal 132-148 [facility] Comment on above: Performed By: #### P TT, NTBNP, HSTNT, CBCDIF, PT, CKCKMB, CMP #### [address] Urea nitrogen mass conc 62 mg/dL High 8-25 [facility] Comment on above: Performed By: #### P TT, NTBNP, HSTNT, CBCDIF, PT, CKCKMB, CMP #### [address] CBC and Differentialon 04-06 Abs Baso <0.03 Normal <0.11 [facility] Comment on above: Performed By: #### P TT, NTBNP, HSTNT, CBCDIF, PT, CKCKMB, CMP #### [place] [phone] Abs Grant 0.53 k/uL Normal <0.87 [facility] Comment on above: Performed By: #### P TT, NTBNP, HSTNT, CBCDIF, PT, CKCKMB, CMP #### [place] [address] Abs Neut 5.35 k/uL Normal 1.45-7.50 [facility] Comment on above: Performed By: #### P TT, NTBNP, HSTNT, CBCDIF, PT, CKCKMB, CMP #### [address] Basophils/100 WBC (Bld) 0.3 % Normal [facility] Comment on above: Performed By: #### P TT, NTBNP, HSTNT, CBCDIF, PT, CKCKMB, CMP #### [place] [id number] DTYPE Auto Diff Normal [facility] Comment on above: Performed By: #### P TT, NTBNP, HSTNT, CBCDIF, PT, CKCKMB, CMP #### [place] [address] Eosinophils #/vol (Bld) 0.12 10*3/uL Normal <0.46 [facility] Comment on above: Performed By: #### P TT, NTBNP, HSTNT, CBCDIF, PT, CKCKMB, CMP #### [place] [phone] Eosinophils/100 WBC (Bld) 1.8 % Normal [facility] Comment on above: Performed By: #### P TT, NTBNP, HSTNT, CBCDIF, PT, CKCKMB, CMP #### [place] [address] Erythrocyte distribution width Ratio (RBC) 14.0 % Normal 11.5-15.0 [facility] Comment on above: Performed By: #### P TT, NTBNP, HSTNT, CBCDIF, PT, CKCKMB, CMP #### [place] [address] Hematocrit Volume Fraction (Bld) 29.4 % Low 36.0-46.0 [facility] Comment on above: Performed By: #### P TT, NTBNP, HSTNT, CBCDIF, PT, CKCKMB, CMP #### [place] [address] Hemoglobin mass conc (Bld) 9.5 g/dL Low 11.5-15.5 [facility] Comment on above: Performed By: #### P TT, NTBNP, HSTNT, CBCDIF, PT, CKCKMB, CMP #### [place] [address] Lymphocytes #/vol (Bld) 0.76 10*3/uL Low 1.00-4.00 [facility] Comment on above: Performed By: #### P TT, NTBNP, HSTNT, CBCDIF, PT, CKCKMB, CMP #### [place] [phone] Lymphocytes/100 WBC (Bld) 11.2 % Normal [facility] Comment on above: Performed By: #### P TT, NTBNP, HSTNT, CBCDIF, PT, CKCKMB, CMP #### [place] [id number] MCH Entitic mass (RBC) 29.2 pG Normal 26.0-34.0 [facility] Comment on above: Performed By: #### P TT, NTBNP, HSTNT, CBCDIF, PT, CKCKMB, CMP #### [place] [phone] MCHC mass conc (RBC) 32.3 g/dL Normal 30.5-36.0 [facility] Comment on above: Performed By: #### P TT, NTBNP, HSTNT, CBCDIF, PT, CKCKMB, CMP #### [place] [phone] MCV Entitic volume (RBC) 90.5 fL Normal 80.0-100.0 [facility] Comment on above: Performed By: #### P TT, NTBNP, HSTNT, CBCDIF, PT, CKCKMB, CMP #### [place] [phone] Monocytes/100 WBC (Bld) 7.8 % Normal [facility] Comment on above: Performed By: #### P TT, NTBNP, HSTNT, CBCDIF, PT, CKCKMB, CMP #### [place] [phone] Neutrophils/100 WBC (Bld) 78.9 % Normal [facility] Comment on above: Performed By: #### P TT, NTBNP, HSTNT, CBCDIF, PT, CKCKMB, CMP #### [place] [phone] Platelet mean volume Entitic volume (Bld) 10.1 fL Normal 9.0-12.7 [facility] Comment on above: Performed By: #### P TT, NTBNP, HSTNT, CBCDIF, PT, CKCKMB, CMP #### [place] [phone] Platelets #/vol (Bld) 253 10*3/uL Normal 150-400 [facility] Comment on above: Performed By: #### P TT, NTBNP, HSTNT, CBCDIF, PT, CKCKMB, CMP #### [place] [phone] RBC #/vol (Bld) 3.25 10*6/uL Low 3.90-5.20 [facility] Comment on above: Performed By: #### P TT, NTBNP, HSTNT, CBCDIF, PT, CKCKMB, CMP #### [facility] [address] [place] [address] WBC #/vol (Bld) 6.78 10*3/uL Normal 3.70-11.00 [facility] Comment on above: Performed By: #### P TT, NTBNP, HSTNT, CBCDIF, PT, CKCKMB, CMP #### [facility] [address] [place] [address] CONSULT PROGon 04-06-2018 Protein mass conc HNO ID: [id number] Author: Clif Dhillon Service: Nephrology Author Type: [...] expect improvement with lasix Clif Jarvis MD [facility] Normal [facility] Magnesiumon 04-06-2018 Magnesium mass conc 2.1 mg/dL Normal 1.7-2.6 [facility] Comment on above: Performed By: #### P TT, NTBNP, HSTNT, CBCDIF, PT, CKCKMB, CMP #### [facility] [address] [place] [address] PROGRESSon 04-06-2018 Protein mass conc HNO ID: [id number] Author: Joy Browne Service: Cardiovascular Disease Author Type: Physician Type: Progress Notes Filed: 04/06/2018 2:02 PM Note Text: Patient is doing better Cxr showed resolution of congestion Renal function fairly stable. Would like to keep patient on dry side Will resume oral lasix tomorrow Dopamine is off Normal [facility] Protein mass conc HNO ID: [id number] Author: Jose Jack Service: Pulmonary Disease Author Type: Physician Type: Progress Notes Filed: 04/06/2018 11:25 AM Note Text: Pulmonary/Critical Care Progress Note PATIENT NAME: Sairna Lovett DATE of SERVICE: April 06, 2018 [...] be extrapolated by contextual derivation. ?? Normal [facility] Protein mass conc HNO ID: [id number] Author: Mary Thao Service: Hospital Medicine Author Type: Physician Type: Progress Notes Filed: 04/06/2018 10:48 AM Note Text: HOSPITAL MEDICINE [facility] UNIT PROGRESS NOTE NAME: Sarina [...] in SVG to RCA. Patient transferred to [facility] on 03/29, back to [facility] on 04/02 for increased SOB and significantly elevated troponin. ? Acute hypoxic respiratory failure CHF and pulmonary edema ; history of tobacco abuse Suspect worsening respiratory status due to CHF and possible underlying COPD. Required CPAP again on 04/02 and was transferred back to [facility]. CXR with significant pulmonary edema R>L, [...] home, last A1c 9.3% in 08/2016 at [facility]. Repeat A1c on admission 6.0%. - SSI1 [...] Score: Pt. Sleeping (Do Not Use With PLANNER CHIEF Meds) PHYSICAL EXAM: General: Alert, no distress, [...] dr. Dumas ? Mary Thao MD 04/06/18 [facility] THERAPY NTon 04-06-2018 THERAPY NT HNO ID: [id number] Author: Leydi (OtJass Hansen Service: Occupational Therapy Author Type: Occupational Therapist Type: Therapy (PT/OT/Speech/Resp) Filed: 04/06/2018 11:39 AM Note Text: Occupational Therapy Treatment SERVICE DATE: 04/06/2018 SERVICE TIME: 0945 to 101 ROOM: [place] [address] Recommended Discharge Disposition: Home OT Anticipated Discharge Needs: Physical Assist at Home Physical Assist at Home for: Cleaning;Laundry;Self Care;Shopping;Transpo rtation;Meals Recommended Discharge Equipment: Grab Bars-Shower;Grab Bars-Toilet;Hand Held Shower;Long Handled Sponge;Wheeled Walker;Project Intern;Shower Chair OT Recommendations to Nursing: To Bathroom [...] of daily living (ADL) Interventions Provided: Self Assisted Management (88559);Therapeutic Activity (59474) Therapeutic Activity (15253) Treatment Minutes: 10 1 unit Skilled Intervention(s): Instruction in sit to and from stand technique with proper hand placement and body positioning at edge of bed/chair Education with gentle AROM exercises for BUE, rest breaks provided. Encouraged to complete shoulder flex, elbow flex /ext and wrist flex and ext from chair level. Self Assisted Management (30686) Treatment Minutes: 15 1 unit Skilled Intervention(s): Education in cues for standing balance, discussed home DME needs Total Timed Code Treatment Minutes: 25 Total Treatment Time (minutes): 25 FUNCTIONAL G CODE: OT 6 Clicks Score: 22 (04/06/18 0945) Self Care Current Status (G8987): CJ (03/30/18 1315) Self Care Goal Status (G8988): CI (03/30/18 1315) Based on clinical assessment and the score [...] DATE: April 06, 2018 TIME: 11:37 AM [facility] XR CHEST 1V FRONTALon 2018 XR CHEST [...] Slight interval improvement diffuse bilateral airspace opacities. Mill Supervisor: PSCB Transcribe Date/Time: Apr 06 2018 7:00A Dictated by : KIRSTIE ANDRADE MD This examination was interpreted and the report reviewed and electronically signed by: KIRSTIE ANDRADE MD on Apr 06 2018 7:01AM EST [id number] N [facility] ALLIED HEALTHon 04-05-2018 ALLIED HEALTH HNO ID: [id number] Author: Amanda Koenig (Rt) Service: Radiology Author Type: Court Recorder Type: Allied Health Filed: 04/05/2018 6:40 AM [...] PERIPHERAL IV DATA: Not applicable SIGNED BY: Gwendolyn Garza RT April 05, 2018 6:40 AM Normal [facility] Basic Metabolic Panlon 04-05 Anion gap molar conc 11 mmol/L Normal 9-18 [facility] Comment on above: Performed By: #### P TT, NTBNP, HSTNT, CBCDIF, PT, CKCKMB, CMP #### [place] [address] Calcium mass conc 8.8 mg/dL Normal 8.5-10.5 [facility] Comment on above: Performed By: #### P TT, NTBNP, HSTNT, CBCDIF, PT, CKCKMB, CMP #### [place] [address] Chloride molar conc 99 mmol/L Normal 98-110 [facility] Comment on above: Performed By: #### P TT, NTBNP, HSTNT, CBCDIF, PT, CKCKMB, CMP #### [place] [address] CO2 molar conc 26 mmol/L Normal 23-32 [facility] Comment on above: Performed By: #### P TT, NTBNP, HSTNT, CBCDIF, PT, CKCKMB, CMP #### [place] [address] Creatinine mass conc 1.77 mg/dL High 0.70-1.40 [facility] Comment on above: Performed By: #### P TT, NTBNP, HSTNT, CBCDIF, PT, CKCKMB, CMP #### [place] [address] eGFR- Amer. 34 Low >60 [facility] Comment on above: Performed By: #### P TT, NTBNP, HSTNT, CBCDIF, PT, CKCKMB, CMP #### [place] [id number] GFR/1.73 sq M predicted among non-blacks MDRD vol rate/area (S/P/Bld) 28 . Low >60 [facility] Comment on above: Performed By: #### P TT, NTBNP, HSTNT, CBCDIF, PT, CKCKMB, CMP #### [place] [phone] Glucose mass conc 125 mg/dL High 65-100 [facility] Comment on above: Performed By: #### P TT, NTBNP, HSTNT, CBCDIF, PT, CKCKMB, CMP #### [address] Potassium molar conc 4.9 mmol/L Normal 3.5-5.0 [facility] Comment on above: Result Comment: Revi ewed Performed By: #### P TT, NTBNP, HSTNT, CBCDIF, PT, CKCKMB, CMP #### [place] [phone] Sodium molar conc 136 mmol/L Normal 132-148 [facility] Comment on above: Performed By: #### P TT, NTBNP, HSTNT, CBCDIF, PT, CKCKMB, CMP #### [place] [phone] Urea nitrogen mass conc 63 mg/dL High 8-25 [facility] Comment on above: Performed By: #### P TT, NTBNP, HSTNT, CBCDIF, PT, CKCKMB, CMP #### [phone] CASE MANAGEMon 04-05-2018 CASE MANAGEM HNO ID: [id number] Author: Chiara Bethea (Lisw-S) Service: Case Management Author Type: Egg Smeller Type: Care Mgt Progress Note Filed: 04/05/2018 2:25 PM Note Text: CARE MANAGEMENT PROGRESS NOTE SERVICE DATE: 04/05/2018 SERVICE TIME: 2:24 PM LOS: 12 days Needs Prior to Discharge: To Be Determined Pt now on dopamine gtt. Nephrology on consult. SW will remain available for needs. SIGNATURE: MITALI Cash PATIENT NAME: Sarina Lovett DATE: April 05, 2018 TIME: 2:24 PM PAGER/CONTACT #: [phone] Normal [facility] CBC and Differentialon 04-05 Abs Baso <0.03 Normal <0.11 [facility] Comment on above: Performed By: #### P TT, NTBNP, HSTNT, CBCDIF, PT, CKCKMB, CMP #### [place] [address] Abs Grant 0.68 k/uL Normal <0.87 [facility] Comment on above: Performed By: #### P TT, NTBNP, HSTNT, CBCDIF, PT, CKCKMB, CMP #### [place] [address] Abs Neut 6.23 k/uL Normal 1.45-7.50 [facility] Comment on above: Performed By: #### P TT, NTBNP, HSTNT, CBCDIF, PT, CKCKMB, CMP #### [place] [address] Basophils/100 WBC (Bld) 0.2 % Normal [facility] Comment on above: Performed By: #### P TT, NTBNP, HSTNT, CBCDIF, PT, CKCKMB, CMP #### [place] [address] DTYPE Auto Diff Normal [facility] Comment on above: Performed By: #### P TT, NTBNP, HSTNT, CBCDIF, PT, CKCKMB, CMP #### [place] [id number] Eosinophils #/vol (Bld) 0.20 10*3/uL Normal <0.46 [facility] Comment on above: Performed By: #### P TT, NTBNP, HSTNT, CBCDIF, PT, CKCKMB, CMP #### [place] [address] Eosinophils/100 WBC (Bld) 2.5 % Normal [facility] Comment on above: Performed By: #### P TT, NTBNP, HSTNT, CBCDIF, PT, CKCKMB, CMP #### [place] [address] Erythrocyte distribution width Ratio (RBC) 13.8 % Normal 11.5-15.0 [facility] Comment on above: Performed By: #### P TT, NTBNP, HSTNT, CBCDIF, PT, CKCKMB, CMP #### [place] [address] Hematocrit Volume Fraction (Bld) 28.3 % Low 36.0-46.0 [facility] Comment on above: Performed By: #### P TT, NTBNP, HSTNT, CBCDIF, PT, CKCKMB, CMP #### [place] [address] Hemoglobin mass conc (Bld) 9.2 g/dL Low 11.5-15.5 [facility] Comment on above: Performed By: #### P TT, NTBNP, HSTNT, CBCDIF, PT, CKCKMB, CMP #### [place] [address] Lymphocytes #/vol (Bld) 0.90 10*3/uL Low 1.00-4.00 [facility] Comment on above: Performed By: #### P TT, NTBNP, HSTNT, CBCDIF, PT, CKCKMB, CMP #### [address] Lymphocytes/100 WBC (Bld) 11.2 % Normal [facility] Comment on above: Performed By: #### P TT, NTBNP, HSTNT, CBCDIF, PT, CKCKMB, CMP #### [place] [address] MCH Entitic mass (RBC) 29.3 pG Normal 26.0-34.0 [facility] Comment on above: Performed By: #### P TT, NTBNP, HSTNT, CBCDIF, PT, CKCKMB, CMP #### [place] [address] MCHC mass conc (RBC) 32.5 g/dL Normal 30.5-36.0 [facility] Comment on above: Performed By: #### P TT, NTBNP, HSTNT, CBCDIF, PT, CKCKMB, CMP #### [place] [address] MCV Entitic volume (RBC) 90.1 fL Normal 80.0-100.0 [facility] Comment on above: Performed By: #### P TT, NTBNP, HSTNT, CBCDIF, PT, CKCKMB, CMP #### [place] [phone] Monocytes/100 WBC (Bld) 8.5 % Normal [facility] Comment on above: Performed By: #### P TT, NTBNP, HSTNT, CBCDIF, PT, CKCKMB, CMP #### [address] Neutrophils/100 WBC (Bld) 77.6 % Normal [facility] Comment on above: Performed By: #### P TT, NTBNP, HSTNT, CBCDIF, PT, CKCKMB, CMP #### [place] [phone] Platelet mean volume Entitic volume (Bld) 10.2 fL Normal 9.0-12.7 [facility] Comment on above: Performed By: #### P TT, NTBNP, HSTNT, CBCDIF, PT, CKCKMB, CMP #### [place] [phone] [place] [phone] Platelets #/vol (Bld) 241 10*3/uL Normal 150-400 [facility] Comment on above: Performed By: #### P TT, NTBNP, HSTNT, CBCDIF, PT, CKCKMB, CMP #### [place] [phone] RBC #/vol (Bld) 3.14 10*6/uL Low 3.90-5.20 [facility] Comment on above: Performed By: #### P TT, NTBNP, HSTNT, CBCDIF, PT, CKCKMB, CMP #### [place] [phone] WBC #/vol (Bld) 8.03 10*3/uL Normal 3.70-11.00 [facility] Comment on above: Performed By: #### P TT, NTBNP, HSTNT, CBCDIF, PT, CKCKMB, CMP #### [place] [phone] CNCOon 04-05-2018 CNCO Letter Text April 05, 2018 Sarina Lovett [address] [facility] [address] Dear Ms. Lovett, Thank you for choosing [facility] for your medical care. To help reduce healthcare costs, it is important for us to collect co-payments at the time of service. We are sorry we missed you when you were here on 03/24/2018. According to your insurance company, you are responsible for a co-payment of $1725.00. Please mail your check or money order, payable to [facility] along with the stub below, in the enclosed envelope. If you would like to pay with your credit card, please call [phone] for assistance or pay online at [email or web address]. Again, thank you for choosing [facility]. Sincerely, Mitchell Beck Acct Patient Box Office Clerk Please detach and return in the enclosed envelope. Pay online at [email or web address] Patient Name: Sarina Lovett EMPI Number: [id number] Date of Service: 03/24/2018 Co-Pay Due: 1725.00 Amount Enclosed: $ .__ Please make checks payable to [facility]. Normal [facility] CONSULT PROGon 04-05-2018 Protein mass conc HNO ID: [id number] Author: Clif Dhillon Service: Nephrology Author Type: [...] CPAP/O2, and lasix. She was transferred to [facility] after improvement but re admitted to [facility] for worsening respiratory status in setting of [...] drip today 3. Anemia Clif Jarvis MD [facility] kidney Dyess Normal [facility] Magnesiumon 04-05-2018 Magnesium mass conc 2.1 mg/dL Normal 1.7-2.6 [facility] Comment on above: Performed By: #### P TT, NTBNP, HSTNT, CBCDIF, PT, CKCKMB, CMP #### [facility] [address] [place] [address] NUTRITIONon 04-05-2018 NUTRITION HNO ID: [id number] Author: Ophelia Mackenzie Service: Nutrition Therapy Author Type: Meringuer Type: Nutrition Filed: 04/06/2018 2:52 PM Note [...] Routine Care/15 min 1 unit SIGNATURE: OPHELIA MACKENZIE DTR PATIENT NAME: Sarina Lovett DATE: April 05, 2018 TIME: 3:00 PM PAGER: [phone] [facility] PROGRESSon 04-05-2018 Protein mass conc HNO ID: [id number] Author: Joy Browne Service: Cardiovascular Disease Author [...] reviewed for today's visit: CBC: Recent Labs 04/05/18 0245 WBC 8.03 RBC 3.14* HB 9.2* HCT 28.3* PLT 241 MCV 90.1 MCH 29.3 MPV 10.2 Coags: No results for input(s): INR, APTT in the last 24 hours. Invalid input(s): PT BMP: Recent Labs 04/05/18 0245 NA 136 K 4.9 CHLOR 99 CO2 26 BUN 63* CREAT 1.77* GLUC 125* CMP: Recent Labs 04/05/18 0245 NA 136 K 4.9 CHLOR 99 CO2 26 BUN 63* CREAT 1.77* GLUC 125* CA 8.8 MG 2.1 ANION 11 Cardiac Enzymes: No results for input(s): CK, MB, CKMB, TROPT in the last 24 hours. ASSESSMENT AND PLAN: (R07.9) Chest pain, unspecified type (primary encounter diagnosis) (N17.9) JULIETA (acute kidney injury) ([facility]) (E87.5) Hyperkalemia (R74.8) Elevated troponin (I21.4) NSTEMI (non-ST elevated myocardial infarction) ([facility]) (I20.0) Unstable angina pectoris ([facility]) 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, unspecified vessel or lesion type ([facility]) (I10) Essential hypertension, benign (I16.1) Hypertensive emergency (F99) Psychiatric disorder (Z72.0) Tobacco abuse (I50.9) Acute decompensated heart failure ([facility]) (J96.01) Acute respiratory failure with hypoxia (HCC) (N17.9, N18.3) Acute renal failure superimposed on stage 3 chronic kidney disease, unspecified acute renal failure type (HCC) (F17.200) Nicotine use disorder Continue present treatment Dc milrinone Add dopamine renal dose Continue with iv lasix Repeat cxr SIGNATURE: Joy Browne MD DATE: April 05, 2018 TIME: 5:50 PM [facility] Protein mass conc HNO ID: [id number] Author: Jose Jack Service: Pulmonary Disease Author [...] be extrapolated by contextual derivation. ?? Normal [facility] Protein mass conc HNO ID: [id number] Author: Kinsey Dumas MD Service: Hospital Medicine [...] Milrinone IV ? Mary Thao MD 04/05/18 [facility] MEDICINE [facility] UNIT PROGRESS NOTE NAME: Sarina [...] in SVG to RCA. Patient transferred to [facility] on 03/29, back to [facility] on 04/02 for increased SOB and significantly elevated troponin. Acute hypoxic respiratory failure Likely COPD; history of tobacco abuse Suspect worsening respiratory status due to CHF and possible underlying COPD. Required CPAP again on 04/02 and was transferred back to [facility]. CXR with significant pulmonary edema R>L, [...] home, last A1c 9.3% in 08/2016 at [facility]. Repeat A1c on admission 6.0%. - SSI1 [...] BID Dispo - continue to monitor in [facility] SUBJECTIVE INTERVAL HPI: Ms. Lovett feels well [...] Score: Pt. Sleeping (Do Not Use With PLANNER CHIEF Meds) PHYSICAL EXAM: General: Alert, no distress, [...] MD Family Medicine PGY2 April 05, 2018 [facility] THERAPY NTon 04-05-2018 THERAPY NT HNO ID: [id number] Author: Madeline CabreraBell Cleaner) LALO Paredes Service: Respiratory Therapy Author Type: Respiratory Therapist Type: Therapy (PT/OT/Speech/Resp) Filed: 04/05/2018 3:52 AM Note Text: Pt wanted to come off cpap. RN notified. Will continue to monitor and intervene if necessary. [facility] XR CHEST 1V FRONTAL PORTon 0 04-05-2018 [...] cardiomediastinal silhouette. Other: . IMPRESSION: As above Mill Supervisor: PSCGrace Transcribe Date/Time: Apr 05 2018 7:54A Dictated by : SLICK DUNN MD This examination was interpreted and the report reviewed and electronically signed by: SLICK DUNN MD on Apr 05 2018 7:55AM EST [id number] N [facility] ALLIED HEALTHon 04-04-2018 ALLIED HEALTH HNO ID: [id number] Author: Deanna (Rt) Amanda Reyes Service: (none) Author Type: Court Recorder Type: Allied Health Filed: 04/04/2018 11:12 AM [...] RT Delma April 04, 2018 11:11 AM [facility] Basic Metabolic Panlon 04-04 Anion gap molar conc 13 mmol/L Normal 9-18 [facility] Comment on above: Performed By: #### P TT, NTBNP, HSTNT, CBCDIF, PT, CKCKMB, CMP #### [place] [phone] Calcium mass conc 8.9 mg/dL Normal 8.5-10.5 [facility] Comment on above: Performed By: #### P TT, NTBNP, HSTNT, CBCDIF, PT, CKCKMB, CMP #### [place] [phone] Chloride molar conc 96 mmol/L Low 98-110 [facility] Comment on above: Performed By: #### P TT, NTBNP, HSTNT, CBCDIF, PT, CKCKMB, CMP #### [place] [phone] CO2 molar conc 28 mmol/L Normal 23-32 [facility] Comment on above: Performed By: #### P TT, NTBNP, HSTNT, CBCDIF, PT, CKCKMB, CMP #### [place] [phone] Creatinine mass conc 1.84 mg/dL High 0.70-1.40 [facility] Comment on above: Performed By: #### P TT, NTBNP, HSTNT, CBCDIF, PT, CKCKMB, CMP #### [place] [id number] eGFR- Amer. 33 Low >60 [facility] Comment on above: Performed By: #### P TT, NTBNP, HSTNT, CBCDIF, PT, CKCKMB, CMP #### [place] [phone] GFR/1.73 sq M predicted among non-blacks MDRD vol rate/area (S/P/Bld) 27 . Low >60 [facility] Comment on above: Performed By: #### P TT, NTBNP, HSTNT, CBCDIF, PT, CKCKMB, CMP #### [place] [phone] Glucose mass conc 167 mg/dL High 65-100 [facility] Comment on above: Performed By: #### P TT, NTBNP, HSTNT, CBCDIF, PT, CKCKMB, CMP #### [place] [phone] Potassium molar conc 3.9 mmol/L Normal 3.5-5.0 [facility] Comment on above: Performed By: #### P TT, NTBNP, HSTNT, CBCDIF, PT, CKCKMB, CMP #### [place] [address] Sodium molar conc 137 mmol/L Normal 132-148 [facility] Comment on above: Performed By: #### P TT, NTBNP, HSTNT, CBCDIF, PT, CKCKMB, CMP #### [place] [phone] Urea nitrogen mass conc 67 mg/dL High 8-25 [facility] Comment on above: Performed By: #### P TT, NTBNP, HSTNT, CBCDIF, PT, CKCKMB, CMP #### [place] [phone] Anion gap molar conc 16 mmol/L Normal 9-18 [facility] Comment on above: Performed By: #### P TT, NTBNP, HSTNT, CBCDIF, PT, CKCKMB, CMP #### [place] [phone] Calcium mass conc 8.7 mg/dL Normal 8.5-10.5 [facility] Comment on above: Performed By: #### P TT, NTBNP, HSTNT, CBCDIF, PT, CKCKMB, CMP #### [place] [phone] Chloride molar conc 94 mmol/L Low 98-110 [facility] Comment on above: Performed By: #### P TT, NTBNP, HSTNT, CBCDIF, PT, CKCKMB, CMP #### [place] [phone] CO2 molar conc 27 mmol/L Normal 23-32 [facility] Comment on above: Performed By: #### P TT, NTBNP, HSTNT, CBCDIF, PT, CKCKMB, CMP #### [place] [phone] Creatinine mass conc 1.84 mg/dL High 0.70-1.40 [facility] Comment on above: Performed By: #### P TT, NTBNP, HSTNT, CBCDIF, PT, CKCKMB, CMP #### [place] [id number] eGFR- Amer. 33 Low >60 [facility] Comment on above: Performed By: #### P TT, NTBNP, HSTNT, CBCDIF, PT, CKCKMB, CMP #### [place] [address] GFR/1.73 sq M predicted among non-blacks MDRD vol rate/area (S/P/Bld) 27 . Low >60 [facility] Comment on above: Performed By: #### P TT, NTBNP, HSTNT, CBCDIF, PT, CKCKMB, CMP #### [address] Glucose mass conc 135 mg/dL High 65-100 [facility] Comment on above: Performed By: #### P TT, NTBNP, HSTNT, CBCDIF, PT, CKCKMB, CMP #### [place] [phone] Potassium molar conc 3.4 mmol/L Low 3.5-5.0 [facility] Comment on above: Performed By: #### P TT, NTBNP, HSTNT, CBCDIF, PT, CKCKMB, CMP #### [place] [phone] Sodium molar conc 137 mmol/L Normal 132-148 [facility] Comment on above: Performed By: #### P TT, NTBNP, HSTNT, CBCDIF, PT, CKCKMB, CMP #### [place] [phone] Urea nitrogen mass conc 68 mg/dL High 8-25 [facility] Comment on above: Performed By: #### P TT, NTBNP, HSTNT, CBCDIF, PT, CKCKMB, CMP #### [place] [phone] CASE MANAGEMon 04-04-2018 CASE MANAGEM HNO ID: [id number] Author: Chiara Bethea (Lisw-S) Service: Case Management Author Type: Egg Smeller Type: Care Mgt Progress Note Filed: 04/04/2018 12:15 PM Note Text: CARE MANAGEMENT PROGRESS NOTE SERVICE DATE: 04/04/2018 SERVICE TIME: 12:14 PM LOS: 11 days Needs Prior to Discharge: To Be Determined Pt on IV Lasix and Milrinone gtt. Skilled needs at d/c TBD. SIGNATURE: MITALI Cash PATIENT NAME: Sarina Lovett DATE: April 04, 2018 TIME: 12:14 PM PAGER/CONTACT #: [phone] Normal [facility] CBCon 04-04-2018 Erythrocyte distribution width Ratio (RBC) 13.5 % Normal 11.5-15.0 [facility] Comment on above: Performed By: #### P TT, NTBNP, HSTNT, CBCDIF, PT, CKCKMB, CMP #### [place] [phone] Hematocrit Volume Fraction (Bld) 26.1 % Low 36.0-46.0 [facility] Comment on above: Performed By: #### P TT, NTBNP, HSTNT, CBCDIF, PT, CKCKMB, CMP #### [place] [phone] Hemoglobin mass conc (Bld) 8.5 g/dL Low 11.5-15.5 [facility] Comment on above: Performed By: #### P TT, NTBNP, HSTNT, CBCDIF, PT, CKCKMB, CMP #### [place] [phone] MCH Entitic mass (RBC) 28.7 pG Normal 26.0-34.0 [facility] Comment on above: Performed By: #### P TT, NTBNP, HSTNT, CBCDIF, PT, CKCKMB, CMP #### [place] [phone] MCHC mass conc (RBC) 32.6 g/dL Normal 30.5-36.0 [facility] Comment on above: Performed By: #### P TT, NTBNP, HSTNT, CBCDIF, PT, CKCKMB, CMP #### [place] [address] MCV Entitic volume (RBC) 88.2 fL Normal 80.0-100.0 [facility] Comment on above: Performed By: #### P TT, NTBNP, HSTNT, CBCDIF, PT, CKCKMB, CMP #### [place] [phone] Platelet mean volume Entitic volume (Bld) 10.4 fL Normal 9.0-12.7 [facility] Comment on above: Performed By: #### P TT, NTBNP, HSTNT, CBCDIF, PT, CKCKMB, CMP #### [place] [phone] Platelets #/vol (Bld) 210 10*3/uL Normal 150-400 [facility] Comment on above: Performed By: #### P TT, NTBNP, HSTNT, CBCDIF, PT, CKCKMB, CMP #### [place] [phone] RBC #/vol (Bld) 2.96 10*6/uL Low 3.90-5.20 [facility] Comment on above: Performed By: #### P TT, NTBNP, HSTNT, CBCDIF, PT, CKCKMB, CMP #### [place] [phone] WBC #/vol (Bld) 6.33 10*3/uL Normal 3.70-11.00 [facility] Comment on above: Performed By: #### P TT, NTBNP, HSTNT, CBCDIF, PT, CKCKMB, CMP #### [place] [phone] CBC and Differentialon 04-04 Abs Baso <0.03 Normal <0.11 [facility] Comment on above: Performed By: #### P TT, NTBNP, HSTNT, CBCDIF, PT, CKCKMB, CMP #### [place] [id number] Abs Grant 0.53 k/uL Normal <0.87 [facility] Comment on above: Performed By: #### P TT, NTBNP, HSTNT, CBCDIF, PT, CKCKMB, CMP #### [address] Abs Neut 5.13 k/uL Normal 1.45-7.50 [facility] Comment on above: Performed By: #### P TT, NTBNP, HSTNT, CBCDIF, PT, CKCKMB, CMP #### [place] [phone] Basophils/100 WBC (Bld) 0.2 % Normal [facility] Comment on above: Performed By: #### P TT, NTBNP, HSTNT, CBCDIF, PT, CKCKMB, CMP #### [place] [phone] DTYPE Auto Diff Normal [facility] Comment on above: Performed By: #### P TT, NTBNP, HSTNT, CBCDIF, PT, CKCKMB, CMP #### [place] [address] Eosinophils #/vol (Bld) 0.17 10*3/uL Normal <0.46 [facility] Comment on above: Performed By: #### P TT, NTBNP, HSTNT, CBCDIF, PT, CKCKMB, CMP #### [place] [address] Eosinophils/100 WBC (Bld) 2.6 % Normal [facility] Comment on above: Performed By: #### P TT, NTBNP, HSTNT, CBCDIF, PT, CKCKMB, CMP #### [place] [address] Erythrocyte distribution width Ratio (RBC) 13.6 % Normal 11.5-15.0 [facility] Comment on above: Performed By: #### P TT, NTBNP, HSTNT, CBCDIF, PT, CKCKMB, CMP #### [place] [address] Hematocrit Volume Fraction (Bld) 25.8 % Low 36.0-46.0 [facility] Comment on above: Performed By: #### P TT, NTBNP, HSTNT, CBCDIF, PT, CKCKMB, CMP #### [place] [address] Hemoglobin mass conc (Bld) 8.6 g/dL Low 11.5-15.5 [facility] Comment on above: Performed By: #### P TT, NTBNP, HSTNT, CBCDIF, PT, CKCKMB, CMP #### [place] [address] Lymphocytes #/vol (Bld) 0.66 10*3/uL Low 1.00-4.00 [facility] Comment on above: Performed By: #### P TT, NTBNP, HSTNT, CBCDIF, PT, CKCKMB, CMP #### [place] [phone] Lymphocytes/100 WBC (Bld) 10.2 % Normal [facility] Comment on above: Performed By: #### P TT, NTBNP, HSTNT, CBCDIF, PT, CKCKMB, CMP #### [place] [phone] MCH Entitic mass (RBC) 29.0 pG Normal 26.0-34.0 [facility] Comment on above: Performed By: #### P TT, NTBNP, HSTNT, CBCDIF, PT, CKCKMB, CMP #### [place] [phone] MCHC mass conc (RBC) 33.3 g/dL Normal 30.5-36.0 [facility] Comment on above: Performed By: #### P TT, NTBNP, HSTNT, CBCDIF, PT, CKCKMB, CMP #### [phone] MCV Entitic volume (RBC) 86.9 fL Normal 80.0-100.0 [facility] Comment on above: Performed By: #### P TT, NTBNP, HSTNT, CBCDIF, PT, CKCKMB, CMP #### [place] [phone] Monocytes/100 WBC (Bld) 8.2 % Normal [facility] Comment on above: Performed By: #### P TT, NTBNP, HSTNT, CBCDIF, PT, CKCKMB, CMP #### [phone] Neutrophils/100 WBC (Bld) 78.8 % Normal [facility] Comment on above: Performed By: #### P TT, NTBNP, HSTNT, CBCDIF, PT, CKCKMB, CMP #### [place] [phone] Platelet mean volume Entitic volume (Bld) 10.3 fL Normal 9.0-12.7 [facility] Comment on above: Performed By: #### P TT, NTBNP, HSTNT, CBCDIF, PT, CKCKMB, CMP #### [place] [phone] Platelets #/vol (Bld) 221 10*3/uL Normal 150-400 [facility] Comment on above: Performed By: #### P TT, NTBNP, HSTNT, CBCDIF, PT, CKCKMB, CMP #### [place] [phone] RBC #/vol (Bld) 2.97 10*6/uL Low 3.90-5.20 [facility] Comment on above: Performed By: #### P TT, NTBNP, HSTNT, CBCDIF, PT, CKCKMB, CMP #### [place] [phone] WBC #/vol (Bld) 6.50 10*3/uL Normal 3.70-11.00 [facility] Comment on above: Performed By: #### P TT, NTBNP, HSTNT, CBCDIF, PT, CKCKMB, CMP #### [place] [phone] CONSULT PROGon 04-04-2018 Protein mass conc HNO ID: [id number] Author: Clif Dhillon Service: Nephrology Author Type: [...] CPAP/O2, and lasix. She was transferred to [facility] after improvement but re admitted to [facility] for worsening respiratory status in setting of [...] April 04, 2018 TIME: 10:43 AM PAGER: [phone] I saw and evaluated the patient. Discussed [...] iron as out pt Clif Jarvis MD [facility] kidney Dyess Normal [facility] Enteric Bact Pnl PCRon 04-04 Campy jejun/coli DNA Not Detected Normal [facility] Comment on above: Performed By: #### P TT, NTBNP, HSTNT, CBCDIF, PT, CKCKMB, CMP #### [place] [address] Salmonella spp. DNA Not Detected Normal [facility] Comment on above: Performed By: #### P TT, NTBNP, HSTNT, CBCDIF, PT, CKCKMB, CMP #### [place] [address] Shiga toxin gene(s) Not Detected Normal [facility] Comment on above: Performed By: #### P TT, NTBNP, HSTNT, CBCDIF, PT, CKCKMB, CMP #### [place] [address] Shigella/EIEC DNA Not Detected Normal [facility] Comment on above: Performed By: #### P TT, NTBNP, HSTNT, CBCDIF, PT, CKCKMB, CMP #### [place] [phone] Magnesiumon 04-04-2018 Magnesium mass conc 2.3 mg/dL Normal 1.7-2.6 [facility] Comment on above: Performed By: #### P TT, NTBNP, HSTNT, CBCDIF, PT, CKCKMB, CMP #### [place] [id number] PROGRESSon 04-04-2018 Protein mass conc HNO ID: [id number] Author: Jose Jack Service: Pulmonary Disease Author [...] be extrapolated by contextual derivation. ?? Normal [facility] Protein mass conc HNO ID: [id number] Author: Joy Browne Service: Cardiovascular Disease Author [...] - - 87 21 94 % - 04/04/18 0800 - 37.1 ?C (98.8 ?F) Oral [...] - - 84 22 96 % - 04/03/181999 (!) 133/47 36.9 ?C (98.4 ?F) Oral 77 23 95 % - 04/03/18 1937 - - - 76 17 - - 04/03/181925 (!) 138/49 37.1 ?C (98.8 ?F) - 77 27 - - 04/03/18 1923 - - - 76 20 95 % - 04/03/18 1922 - - - - - 95 % [...] reviewed for today's visit: CBC: Recent Labs 04/04/18 0401 WBC 6.50 RBC 2.97* HB 8.6* HCT 25.8* PLT 221 MCV 86.9 MCH 29.0 MPV 10.3 Coags: No results for input(s): INR, APTT in the last 24 hours. Invalid input(s): PT BMP: Recent Labs 04/04/18 0401 NA 137 K 3.4* CHLOR 94* CO2 27 BUN 68* CREAT 1.84* GLUC 135* CMP: Recent Labs 04/04/18 0401 NA 137 K 3.4* CHLOR 94* CO2 27 BUN 68* CREAT 1.84* GLUC 135* CA 8.7 MG 2.3 ANION 16 ASSESSMENT AND PLAN: (R07.9) Chest pain, unspecified type (primary encounter diagnosis) (N17.9) JULIETA (acute kidney injury) ([facility]) (E87.5) Hyperkalemia (R74.8) Elevated troponin (I21.4) NSTEMI (non-ST elevated myocardial infarction) ([facility]) (I20.0) Unstable angina pectoris ([facility]) 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, unspecified vessel or lesion type ([facility]) (I10) Essential hypertension, benign (I16.1) Hypertensive emergency (F99) Psychiatric disorder (Z72.0) Tobacco abuse (I50.9) Acute decompensated heart failure (HCC) Notice k is 3.4 will give potassium supplement Patient is doing better, will keep iv lasix and milrinone for another 24 hrs SIGNATURE: Joy Browne MD DATE: April 04, 2018 TIME: 3:01 PM [facility] Protein mass conc HNO ID: [id number] Author: Kinsey Dumas MD Service: Hospital Medicine [...] ? Mary Thao MD 04/04/18 HOSPITAL MEDICINE [facility] UNIT PROGRESS NOTE NAME: Sarina [...] in SVG to RCA. Patient transferred to [facility] on 03/29, back to [facility] on 04/02 for increased SOB and significantly elevated troponin. ? Acute hypoxic respiratory failure Likely COPD; history of tobacco abuse Suspect worsening respiratory status due to CHF and possible underlying COPD. Required CPAP again on 04/02 and was transferred back to [facility]. CXR with significant pulmonary edema R>L, [...] home, last A1c 9.3% in 08/2016 at [facility]. Repeat A1c on admission 6.0%. - SSI1 [...] BID Dispo - continue to monitor in [facility] SUBJECTIVE INTERVAL HPI: Ms. Lovett feels well [...] MD Family Medicine PGY2 April 04, 2018 [facility] XR CHEST 1V FRONTAL PORTon 0 04-04-2018 [...] sternotomy. Other: . IMPRESSION: Slight interval improvement. Mill Supervisor: PSCGrace Transcribe Date/Time: Apr 04 2018 4:00P Dictated by : KIRSTIE ANDRADE MD This examination was interpreted and the report reviewed and electronically signed by: KIRSTIE ANDRADE MD on Apr 04 2018 4:01PM EST [id number] N [facility] ALLIED HEALTHon 04-03-2018 ALLIED HEALTH HNO ID: [id number] Author: Amanda Michael (Rt) Service: Radiology Author Type: Court Recorder Type: Allied Health Filed: 04/03/2018 12:43 PM [...] IV DATA: Not applicable SIGNED BY: RT Fernanda April 03, 2018 12:42 PM [facility] Basic Metabolic Panlon 04-03 Calcium mass conc 9.2 mg/dL Normal 8.5-10.5 [facility] Comment on above: Performed By: #### P TT, NTBNP, HSTNT, CBCDIF, PT, CKCKMB, CMP #### [place] [address] CO2 molar conc 23 mmol/L Normal 23-32 [facility] Comment on above: Performed By: #### P TT, NTBNP, HSTNT, CBCDIF, PT, CKCKMB, CMP #### [place] [address] Creatinine mass conc 2.21 mg/dL High 0.70-1.40 [facility] Comment on above: Performed By: #### P TT, NTBNP, HSTNT, CBCDIF, PT, CKCKMB, CMP #### [place] [address] eGFR- Amer. 26 Low >60 [facility] Comment on above: Performed By: #### P TT, NTBNP, HSTNT, CBCDIF, PT, CKCKMB, CMP #### [place] [phone] Glucose mass conc 107 mg/dL High 65-100 [facility] Comment on above: Performed By: #### P TT, NTBNP, HSTNT, CBCDIF, PT, CKCKMB, CMP #### [place] [phone] Potassium molar conc 3.9 mmol/L Normal 3.5-5.0 [facility] Comment on above: Performed By: #### P TT, NTBNP, HSTNT, CBCDIF, PT, CKCKMB, CMP #### [place] [address] Sodium molar conc 137 mmol/L Normal 132-148 [facility] Comment on above: Performed By: #### P TT, NTBNP, HSTNT, CBCDIF, PT, CKCKMB, CMP #### [place] [id number] Urea nitrogen mass conc 75 mg/dL High 8-25 [facility] Comment on above: Performed By: #### P TT, NTBNP, HSTNT, CBCDIF, PT, CKCKMB, CMP #### [place] [phone] CASE MANAGEMon 04-03-2018 CASE MANAGEM HNO ID: [id number] Author: Chiara Bethea (Lisw-S) Service: Case Management Author Type: Egg Smeller Type: Care Mgt Progress Note Filed: 04/03/2018 1:12 PM Note Text: CARE MANAGEMENT PROGRESS NOTE SERVICE DATE: 04/03/2018 SERVICE TIME: 1:10 PM LOS: 10 days Needs Prior to Discharge: To Be Determined Pt was a transfer from [facility] d/t fluid overload and SOB. Chest XRay pending. Pt to receive 1 unit of PRBC per hospital medicine note. May need HHC at d/c; if so, will need a HHC F2F. SIGNATURE: MITALI Cash PATIENT NAME: Sarina Lovett DATE: April 03, 2018 TIME: 1:10 PM PAGER/CONTACT #: [phone] Normal [facility] CBC and Differentialon 04-03 Abs Baso <0.03 Normal <0.11 [facility] Comment on above: Performed By: #### P TT, NTBNP, HSTNT, CBCDIF, PT, CKCKMB, CMP #### [place] [address] Abs Grant 0.44 k/uL Normal <0.87 [facility] Comment on above: Performed By: #### P TT, NTBNP, HSTNT, CBCDIF, PT, CKCKMB, CMP #### [place] [address] Abs Neut 5.70 k/uL Normal 1.45-7.50 [facility] Comment on above: Performed By: #### P TT, NTBNP, HSTNT, CBCDIF, PT, CKCKMB, CMP #### [address] Basophils/100 WBC (Bld) 0.1 % [facility] Comment on above: Performed By: #### P TT, NTBNP, HSTNT, CBCDIF, PT, CKCKMB, CMP #### [place] [address] DTYPE Auto Diff Normal [facility] Comment on above: Performed By: #### P TT, NTBNP, HSTNT, CBCDIF, PT, CKCKMB, CMP #### [place] [address] Eosinophils #/vol (Bld) 0.08 10*3/uL Normal <0.46 [facility] Comment on above: Performed By: #### P TT, NTBNP, HSTNT, CBCDIF, PT, CKCKMB, CMP #### [address] Eosinophils/100 WBC (Bld) 1.2 % Normal [facility] Comment on above: Performed By: #### P TT, NTBNP, HSTNT, CBCDIF, PT, CKCKMB, CMP #### [place] [address] Erythrocyte distribution width Ratio (RBC) 13.8 % Normal 11.5-15.0 [facility] Comment on above: Performed By: #### P TT, NTBNP, HSTNT, CBCDIF, PT, CKCKMB, CMP #### [address] Hematocrit Volume Fraction (Bld) 23.0 % Low 36.0-46.0 [facility] Comment on above: Performed By: #### P TT, NTBNP, HSTNT, CBCDIF, PT, CKCKMB, CMP #### [place] [address] Hemoglobin mass conc (Bld) 7.5 g/dL Low 11.5-15.5 [facility] Comment on above: Performed By: #### P TT, NTBNP, HSTNT, CBCDIF, PT, CKCKMB, CMP #### [place] [id number] Lymphocytes #/vol (Bld) 0.54 10*3/uL Low 1.00-4.00 [facility] Comment on above: Performed By: #### P TT, NTBNP, HSTNT, CBCDIF, PT, CKCKMB, CMP #### [place] [phone] Lymphocytes/100 WBC (Bld) 8.0 % Normal [facility] Comment on above: Performed By: #### P TT, NTBNP, HSTNT, CBCDIF, PT, CKCKMB, CMP #### [place] [phone] MCH Entitic mass (RBC) 28.5 pG Normal 26.0-34.0 [facility] Comment on above: Performed By: #### P TT, NTBNP, HSTNT, CBCDIF, PT, CKCKMB, CMP #### [place] [phone] MCHC mass conc (RBC) 32.6 g/dL Normal 30.5-36.0 [facility] Comment on above: Performed By: #### P TT, NTBNP, HSTNT, CBCDIF, PT, CKCKMB, CMP #### [place] [phone] MCV Entitic volume (RBC) 87.5 fL Normal 80.0-100.0 [facility] Comment on above: Performed By: #### P TT, NTBNP, HSTNT, CBCDIF, PT, CKCKMB, CMP #### [place] [phone] Monocytes/100 WBC (Bld) 6.5 % Normal [facility] Comment on above: Performed By: #### P TT, NTBNP, HSTNT, CBCDIF, PT, CKCKMB, CMP #### [place] [phone] Neutrophils/100 WBC (Bld) 84.2 % Normal [facility] Comment on above: Performed By: #### P TT, NTBNP, HSTNT, CBCDIF, PT, CKCKMB, CMP #### [place] [phone] Platelet mean volume Entitic volume (Bld) 10.9 fL Normal 9.0-12.7 [facility] Comment on above: Performed By: #### P TT, NTBNP, HSTNT, CBCDIF, PT, CKCKMB, CMP #### [place] [phone] Platelets #/vol (Bld) 207 10*3/uL Normal 150-400 [facility] Comment on above: Performed By: #### P TT, NTBNP, HSTNT, CBCDIF, PT, CKCKMB, CMP #### [place] [phone] RBC #/vol (Bld) 2.63 10*6/uL Low 3.90-5.20 [facility] Comment on above: Performed By: #### P TT, NTBNP, HSTNT, CBCDIF, PT, CKCKMB, CMP #### [facility] [address] [place] [address] WBC #/vol (Bld) 6.77 10*3/uL Normal 3.70-11.00 [facility] Comment on above: Performed By: #### P TT, NTBNP, HSTNT, CBCDIF, PT, CKCKMB, CMP #### [place] [id number] [place] [address] CONSULT PROGon 04-03-2018 Protein mass conc HNO ID: [id number] Author: Clif Dhillon Service: Nephrology Author Type: [...] 5. Anemia: Cont monitoring Clif Jarvis MD [facility] Kidney Dyess Normal [facility] Protein mass conc HNO ID: [id number] Author: Kamille Lopez Service: Gastroenterology Author Type: [...] and tolerating diet ? Kamille Lopez CNP [facility] ? Thank you for allowing us to participate in the care of this patient. Please call with questions or concerns. ? SIGNATURE: Kamille Lopez APRN.CNP PATIENT NAME: Sarina Lovett DATE: April 03, 2018 TIME: 10:02 AM PAGER: [phone] [facility] Confirm Blood Typeon 019 ABO/RH(D) Positive [facility] Comment on above: Performed By: #### P TT, NTBNP, HSTNT, CBCDIF, PT, CKCKMB, CMP #### [facility] [address] [place] [address] NURSING PROGon 04-03-2018 Protein mass conc HNO ID: [id number] Author: Sharda CabreraRn) ZAK Damon Service: Critical Care Author Type: Registered Nurse Type: Nursing Progress Note Filed: 04/04/2018 5:22 AM Note Text: Nursing Progress Note Patient Name: Sarina Lovett Patient Location: [place] [address] [address]* Daily Note: This note was completed by: Sharda Damon RN 1936- 1 unit PRBC completed infusing. Dr. Cardenas notified for order for repeat CBC. Ordered for 2200. 2102- Pt with [address] Cardenas notified. New order received for 2G IV mag. 0515- Pt K came back at 3.4. Dr. Cardenas notified for orders. [facility] Protein mass conc HNO ID: [id number] Author: Brayan CabreraRn) ZAK Nichols Service: (none) Author Type: Registered Nurse Type: Nursing Progress Note Filed: 04/03/2018 7:15 PM Note Text: Nursing Progress Note Patient Name: Sarina Lovett Patient Location: [id number]/[id number]- * Daily Note:1640 Dr. Thao ordered unit of PRBC, blood is ready Dr. Thao to go over consent with pt. This note was completed by: Brayan Nichols, RN 1810 Pt family at the bedside, updated on pt condition. Normal [facility] Protein mass conc HNO ID: [id number] Author: Delma CabreraRn) ZAK Garsia Service: Critical Care Author Type: Registered [...] to have blood transfusion after obtains consent. Normal [facility] Protein mass conc HNO ID: [id number] Author: Constantine Payton) ZAK Potter Service: (none) Author Type: Registered Nurse Type: Nursing Progress Note Filed: 04/03/2018 7:37 AM Note Text: Nursing Progress Note Patient Name: Sarina Lovett Patient Location: [id number]/KCCC- 024* Daily Note: 2300: Received report from ZAK Harris. 2330: Assessment complete, see flow sheet. VSS. 0500: Reassessment complete, see flow sheet. VSS. 0705: Report given to ZAK Nguyễn This note was completed by: Constantine Potter RN [facility] PLAN OF CAREon 04-03-2018 PLAN OF CARE HNO ID: [id number] Author: Radha Castellanos (Pharmacist) Service: Pharmacy Author Type: Pharmacist Type: Plan of Care Filed: 04/04/2018 7:22 AM Note Text: MEDICATION HISTORY AND MEDICATION RECONCILIATION Patient Name:Steven Lovett : 1945 Source of history:Patient: Reliability of source: Appears reliable, although not clear on how she takes all of her medications and Pharmacy records: [facility] in [place] Medication Nonadherence Identified: patient not clear on all directions for medications. The above information represents the best possible medication history: Yes Reconciliation completed? 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 No med changes at this time, but will need reconciliation at discharge. Additional comments: Added albuterol, amlodipine, furosemide Adjusted dose of glimepiride, lisinopril Removed iron Allergies: ALLERGIES Allergen Reactions - Statins [Other] Caused severe muscular weakness. - Sulfa (Sulfonamide * Caused severe generalized swelling. 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 ?? Normal [facility] Protein mass conc HNO ID: [id number] Author: Joy Browne Service: Cardiovascular Disease Author Type: Physician Type: Progress Notes Filed: 04/03/2018 12:48 PM Note Text: Reviewed cxr It is better, less congestions Finding showed improvement of heart failure. Continue with milrinone for the next 24hrs. I hope nephrology will not dc diuretic again. We need to keep her on dry side Normal [facility] Protein mass conc HNO ID: [id number] Author: Joy Browne Service: Cardiovascular Disease Author Type: Physician Type: Progress Notes Filed: 04/03/2018 12:44 PM Note Text: INPATIENT PROGRESS NOTES Patient Name: Sarina Lovett SERVICE DATE: 04/03/2018 SERVICE TIME: 12:37 PM PRIMARY SERVICE:Cardiology INTERVAL HPI: [place] more sob last night. Was transferred to [facility]. This morning, she is feeling [...] - - 66 17 100 % - 04/02/18 2030 162/58 - - 64 16 100 % - 04/02/182014 162/57 - - 66 17 100 % - 04/02/182001 - - - 65 18 100 % - 04/02/181999 165/62 36.7 ?C (98.1 ?F) Axillary 66 19 100 % - 02/03/19 1953 - - - 63 18 99 [...] AND PLAN: (N17.9) JULIETA (acute kidney injury) ([facility]) (E87.5) Hyperkalemia (R74.8) Elevated troponin (I21.4) NSTEMI (non-ST elevated myocardial infarction) ([facility]) (I20.0) Unstable angina pectoris ([facility]) 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, unspecified vessel or lesion type ([facility]) (I10) Essential hypertension, benign (I16.1) Hypertensive emergency (F99) Psychiatric disorder (Z72.0) Tobacco abuse (I50.9) Acute decompensated heart failure ([facility]) Cxr suggestive of pneumonia, repeat cxr pa [...] DATE: April 03, 2018 TIME: 12:37 PM [facility] Protein mass conc HNO ID: [id number] Author: Kinsey Dumas MD Service: Hospital Medicine [...] of PRBC. ? Mary Thao MD 04/03/18 [facility] MEDICINE [facility] UNIT PROGRESS NOTE NAME: Sarina [...] in SVG to RCA. Patient transferred to [facility] on 03/29, back to [facility] on 04/02 for increased SOB and significantly elevated troponin. Acute hypoxic respiratory failure Likely COPD; history of tobacco abuse Suspect worsening respiratory status due to CHF and possible underlying COPD. Required CPAP again on 04/02 and was transferred back to [facility]. CXR with significant pulmonary edema R>L, [...] home, last A1c 9.3% in 08/2016 at [facility]. Repeat A1c on admission 6.0%. - SSI1 - holding home glimepiride due to JULIETA Tobacco abuse POA: Yes 50 pack-year history, encourage cessation. Psychiatric disorder POA: Yes Patient with history of depression, significant social stressors. - continue zoloft 150mg daily, wellbutrin 150mg daily VTE Prophylaxis - SQH 5000U BID Dispo - continue to monitor in [facility] SUBJECTIVE INTERVAL HPI: Ms. Lovett feels well [...] Family Medicine PGY2 April 03, 2018 Normal [facility] Renal Function Panelon 04-03 Albumin mass conc 3.2 g/dL Low 3.5-5.0 [facility] Comment on above: Performed By: #### P TT, NTBNP, HSTNT, CBCDIF, PT, CKCKMB, CMP #### [place] [address] Anion gap molar conc 17 mmol/L Normal 9-18 [facility] Comment on above: Performed By: #### P TT, NTBNP, HSTNT, CBCDIF, PT, CKCKMB, CMP #### [place] [address] Calcium mass conc 9.1 mg/dL Normal 8.5-10.5 [facility] Comment on above: Performed By: #### P TT, NTBNP, HSTNT, CBCDIF, PT, CKCKMB, CMP #### [place] [phone] Chloride molar conc 97 mmol/L Low 98-110 [facility] Comment on above: Performed By: #### P TT, NTBNP, HSTNT, CBCDIF, PT, CKCKMB, CMP #### [place] [phone] CO2 molar conc 24 mmol/L Normal 23-32 [facility] Comment on above: Performed By: #### P TT, NTBNP, HSTNT, CBCDIF, PT, CKCKMB, CMP #### [place] [address] Creatinine mass conc 2.22 mg/dL High 0.70-1.40 [facility] Comment on above: Performed By: #### P TT, NTBNP, HSTNT, CBCDIF, PT, CKCKMB, CMP #### [address] GFR/1.73 sq M predicted among non-blacks MDRD vol rate/area (S/P/Bld) 22 . Low >60 [facility] Comment on above: Performed By: #### P TT, NTBNP, HSTNT, CBCDIF, PT, CKCKMB, CMP #### [place] [phone] Glucose mass conc 105 mg/dL High 65-100 [facility] Comment on above: Performed By: #### P TT, NTBNP, HSTNT, CBCDIF, PT, CKCKMB, CMP #### [place] [phone] Phosphate mass conc 5.2 mg/dL High 2.5-4.5 [facility] Comment on above: Performed By: #### P TT, NTBNP, HSTNT, CBCDIF, PT, CKCKMB, CMP #### [place] [id number] Potassium molar conc 3.8 mmol/L Normal 3.5-5.0 [facility] Comment on above: Performed By: #### P TT, NTBNP, HSTNT, CBCDIF, PT, CKCKMB, CMP #### [place] [address] Sodium molar conc 138 mmol/L Normal 132-148 [facility] Comment on above: Performed By: #### P TT, NTBNP, HSTNT, CBCDIF, PT, CKCKMB, CMP #### [place] [address] Type and Screenon 04-03-2018 ABO/RH(D) Positive Normal [facility] Comment on above: Performed By: #### P TT, NTBNP, HSTNT, CBCDIF, PT, CKCKMB, CMP #### [place] [address] XR CHEST 2V FRONTAL/LATon XR CHEST 2V [...] bilateral pleural effusions, right greater than left. Mill Supervisor: JENNIFER Transcribe Date/Time: Apr 03 2018 1:36P Dictated by : PHILLIP MONTALVO MD This examination was interpreted and the report reviewed and electronically signed by: PHILLIP MONTALVO MD on Apr 03 2018 1:39PM EST [id number] N [facility] ALLIED HEALTHon 04-02-2018 ALLIED HEALTH HNO ID: [id number] Author: Nicole (Bell Cleaner) LALO Hernandez Service: Respiratory Therapy Author Type: Registered Resp Therapist Type: Allied Health Filed: 04/02/2018 10:28 AM Note Text: Patient on using cpap at this time [facility] HNO ID: [id number] Author: Georgia Barnett (Rt) Amanda Rodriguez Service: Radiology Author Type: Court Recorder Type: Allied Health Filed: 04/02/2018 8:06 AM [...] PERIPHERAL IV DATA: Not applicable SIGNED BY: Georgia Rodriguez RT April 02, 2018 8:06 AM [facility] Arterial Blood Gas (FOR WEST USE ONLY)on 04-02-2018 Base Excess Negative [facility] Comment on above: Result Comment: -3 t o 3 Performed By: #### P TT, NTBNP, HSTNT, CBCDIF, PT, CKCKMB, CMP #### [place] [phone] CO2 molar conc 22 mmol/L Normal 22.0-28.0 [facility] Comment on above: Performed By: #### P TT, NTBNP, HSTNT, CBCDIF, PT, CKCKMB, CMP #### [place] [phone] Device Nasal Cannula [facility] Comment on above: Performed By: #### P TT, NTBNP, HSTNT, CBCDIF, PT, CKCKMB, CMP #### [place] [phone] Drawsite Right Brachial Normal [facility] Comment on above: Performed By: #### P TT, NTBNP, HSTNT, CBCDIF, PT, CKCKMB, CMP #### [place] [address] HCO3 molar conc (Bld) 20 mmol/L Low 22-26 [facility] Comment on above: Performed By: #### P TT, NTBNP, HSTNT, CBCDIF, PT, CKCKMB, CMP #### [place] [address] O2 Administered 45.0 Normal [facility] Comment on above: Performed By: #### P TT, NTBNP, HSTNT, CBCDIF, PT, CKCKMB, CMP #### [place] [address] Oxygen ppres (Bld) 81 mm Hg Normal 80-100 [facility] Comment on above: Performed By: #### P TT, NTBNP, HSTNT, CBCDIF, PT, CKCKMB, CMP #### [place] [address] Oxygen ppres (Bld) 95 % Normal 90-98 [facility] Comment on above: Performed By: #### P TT, NTBNP, HSTNT, CBCDIF, PT, CKCKMB, CMP #### [place] [address] pCO2 40 mm Hg Normal 35-48 [facility] Comment on above: Performed By: #### P TT, NTBNP, HSTNT, CBCDIF, PT, CKCKMB, CMP #### [place] [address] pH (Bld) 7.33 [pH] Low 7.35-7.45 [facility] Comment on above: Performed By: #### P TT, NTBNP, HSTNT, CBCDIF, PT, CKCKMB, CMP #### [place] [address] CBC and Differentialon 04-02 Abs Baso <0.03 Normal <0.11 [facility] Comment on above: Performed By: #### P TT, NTBNP, HSTNT, CBCDIF, PT, CKCKMB, CMP #### [place] [address] Abs Grant 0.43 k/uL Normal <0.87 [facility] Comment on above: Performed By: #### P TT, NTBNP, HSTNT, CBCDIF, PT, CKCKMB, CMP #### [place] [address] Abs Neut 7.37 k/uL Normal 1.45-7.50 [facility] Comment on above: Performed By: #### P TT, NTBNP, HSTNT, CBCDIF, PT, CKCKMB, CMP #### [place] [address] Basophils/100 WBC (Bld) 0.1 % [facility] Comment on above: Performed By: #### P TT, NTBNP, HSTNT, CBCDIF, PT, CKCKMB, CMP #### [place] [address] DTYPE Auto Diff Normal [facility] Comment on above: Performed By: #### P TT, NTBNP, HSTNT, CBCDIF, PT, CKCKMB, CMP #### [place] [address] Eosinophils #/vol (Bld) 0.06 10*3/uL Normal <0.46 [facility] Comment on above: Performed By: #### P TT, NTBNP, HSTNT, CBCDIF, PT, CKCKMB, CMP #### [place] [id number] Eosinophils/100 WBC (Bld) 0.7 % Normal [facility] Comment on above: Performed By: #### P TT, NTBNP, HSTNT, CBCDIF, PT, CKCKMB, CMP #### [place] [address] Erythrocyte distribution width Ratio (RBC) 13.7 % Normal 11.5-15.0 [facility] Comment on above: Performed By: #### P TT, NTBNP, HSTNT, CBCDIF, PT, CKCKMB, CMP #### [place] [id number] Hematocrit Volume Fraction (Bld) 24.9 % Low 36.0-46.0 [facility] Comment on above: Performed By: #### P TT, NTBNP, HSTNT, CBCDIF, PT, CKCKMB, CMP #### [place] [address] Hemoglobin mass conc (Bld) 8.2 g/dL Low 11.5-15.5 [facility] Comment on above: Performed By: #### P TT, NTBNP, HSTNT, CBCDIF, PT, CKCKMB, CMP #### [place] [address] Lymphocytes #/vol (Bld) 0.36 10*3/uL Low 1.00-4.00 [facility] Comment on above: Performed By: #### P TT, NTBNP, HSTNT, CBCDIF, PT, CKCKMB, CMP #### [place] [id number] Lymphocytes/100 WBC (Bld) 4.4 % Normal [facility] Comment on above: Performed By: #### P TT, NTBNP, HSTNT, CBCDIF, PT, CKCKMB, CMP #### [place] [phone] MCH Entitic mass (RBC) 28.6 pG Normal 26.0-34.0 [facility] Comment on above: Performed By: #### P TT, NTBNP, HSTNT, CBCDIF, PT, CKCKMB, CMP #### [place] [id number] MCHC mass conc (RBC) 32.9 g/dL Normal 30.5-36.0 [facility] Comment on above: Performed By: #### P TT, NTBNP, HSTNT, CBCDIF, PT, CKCKMB, CMP #### [place] [phone] MCV Entitic volume (RBC) 86.8 fL Normal 80.0-100.0 [facility] Comment on above: Performed By: #### P TT, NTBNP, HSTNT, CBCDIF, PT, CKCKMB, CMP #### [place] [phone] Monocytes/100 WBC (Bld) 5.2 % Normal [facility] Comment on above: Performed By: #### P TT, NTBNP, HSTNT, CBCDIF, PT, CKCKMB, CMP #### [place] [phone] Neutrophils/100 WBC (Bld) 89.6 % Normal [facility] Comment on above: Performed By: #### P TT, NTBNP, HSTNT, CBCDIF, PT, CKCKMB, CMP #### [place] [phone] Platelet mean volume Entitic volume (Bld) 10.6 fL Normal 9.0-12.7 [facility] Comment on above: Performed By: #### P TT, NTBNP, HSTNT, CBCDIF, PT, CKCKMB, CMP #### [place] [phone] Platelets #/vol (Bld) 192 10*3/uL Normal 150-400 [facility] Comment on above: Performed By: #### P TT, NTBNP, HSTNT, CBCDIF, PT, CKCKMB, CMP #### [place] [phone] RBC #/vol (Bld) 2.87 10*6/uL Low 3.90-5.20 [facility] Comment on above: Performed By: #### P TT, NTBNP, HSTNT, CBCDIF, PT, CKCKMB, CMP #### [place] [phone] [place] [phone] WBC #/vol (Bld) 8.23 10*3/uL Normal 3.70-11.00 [facility] Comment on above: Performed By: #### P TT, NTBNP, HSTNT, CBCDIF, PT, CKCKMB, CMP #### [place] [address] CONSULTon 04-02-2018 CONSULT HNO ID: [id number] Author: Jose Jack Service: Pulmonary Disease Author Type: Physician Type: Consults Filed: 04/05/2018 4:13 PM Note Text: [facility] - Consultation SARINA LOVETT : 1945 AGE: 73 SEX: F CSN: [id number] [facility]: [id number] ATTENDING PHYSICIAN: MAME BOWERS DATE OF CONSULTATION: [...] therefore, was placed on CPAP, transferred to [facility] and a Pulmonary consultation was requested. [...] at home. 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 [...] significant edema. No calf tenderness or swelling. 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 Jose Jack M.D. Pulmonary/critical Care :[id number] /[id number] [facility] CONSULT PROGon 04-02-2018 Protein mass conc HNO ID: [id number] Author: Jonathan Mchugh Service: Cardiovascular Disease Author [...] (FLAGYL) 500 mg INTRAVENOUS q 8 H [APR Hold due to Transfer] carvedilol 3.125 mg tab(s) (COREG) 3.125 mg ORAL BID w MEALS [APR Hold due to Transfer] heparin 5,000 Units injection 5,000 Units SUBCUTANEOUS q 12 H [APR Hold due to Transfer] sodium bicarbonate 1,300 mg tab(s) 1,300 mg ORAL TID [APR Hold due to Transfer] acetaminophen 500-1,000 mg tab(s) (TYLENOL) 500-1,000 mg ORAL q 6 H PRN [MAR Hold due to Transfer] oxyCODONE IR 5-10 mg tab(s) (ROXICODONE) 5-10 mg ORAL q 6 H PRN [APR Hold due to Transfer] ipratropium-albuterol 3 mL nebulizer solution (DUONEB) 3 mL INHALATION q 4 H while awake [APR Hold due to Transfer] atorvastatin 80 mg tab(s) (LIPITOR) 80 mg ORAL AT BEDTIME [APR Hold due to Transfer] nitroglycerin sublingual 0.4 mg tab(s) (NITROQUICK) 0.4 mg SUBLINGUAL PRN [MAR Hold due to Transfer] prochlorperazine 5 mg injection (COMPAZINE) 5 mg INTRAVENOUS q 6 H PRN [APR Hold due to Transfer] insulin lispro injection (rapid acting) (HumaLOG) SUBCUTANEOUS w MEALS AND HS [MAR Hold due to Transfer] aspirin 81 mg chewable tab(s) 81 mg ORAL DAILY [MAR Hold due to Transfer] sertraline 150 mg tab(s) (ZOLOFT) 150 mg ORAL DAILY [MAR Hold due to Transfer] clopidogrel 75 mg tab(s) (PLAVIX) 75 mg ORAL DAILY [MAR Hold due to Transfer] buPROPion XL 150 mg tab(s) (WELLBUTRIN XL) 150 mg ORAL DAILY [APR Hold due to Transfer] NaCl 0.9% 3-5 mL 3-5 mL INTRAVENOUS q 12 H [APR Hold due to Transfer] ondansetron 4 mg tab(s) (ZOFRAN) 4 mg ORAL q 6 H PRN [MAR Hold due to Transfer] ondansetron (PF) 4 [...] April 02, 2018 Time: 10:13 AM Normal [facility] Comp Metabolic Panelon 04-02 Albumin mass conc 3.3 g/dL Low 3.5-5.0 [facility] Comment on above: Performed By: #### P TT, NTBNP, HSTNT, CBCDIF, PT, CKCKMB, CMP #### [place] [phone] ALP enzyme act/vol 91 U/L Normal 34-123 [facility] Comment on above: Performed By: #### P TT, NTBNP, HSTNT, CBCDIF, PT, CKCKMB, CMP #### [place] [phone] ALT enzyme act/vol 24 U/L Normal 0-45 [facility] Comment on above: Performed By: #### P TT, NTBNP, HSTNT, CBCDIF, PT, CKCKMB, CMP #### [place] [phone] Anion gap molar conc 18 mmol/L Normal 9-18 [facility] Comment on above: Performed By: #### P TT, NTBNP, HSTNT, CBCDIF, PT, CKCKMB, CMP #### [place] [phone] AST enzyme act/vol 26 U/L Normal 7-40 [facility] Comment on above: Performed By: #### P TT, NTBNP, HSTNT, CBCDIF, PT, CKCKMB, CMP #### [place] [phone] Bilirubin mass conc 0.3 mg/dL Normal 0.2-1.3 [facility] Comment on above: Performed By: #### P TT, NTBNP, HSTNT, CBCDIF, PT, CKCKMB, CMP #### [place] [address] Calcium mass conc 8.8 mg/dL Normal 8.5-10.5 [facility] Comment on above: Performed By: #### P TT, NTBNP, HSTNT, CBCDIF, PT, CKCKMB, CMP #### [place] [phone] Chloride molar conc 97 mmol/L Low 98-110 [facility] Comment on above: Performed By: #### P TT, NTBNP, HSTNT, CBCDIF, PT, CKCKMB, CMP #### [place] [address] CO2 molar conc 20 mmol/L Low 23-32 [facility] Comment on above: Performed By: #### P TT, NTBNP, HSTNT, CBCDIF, PT, CKCKMB, CMP #### [place] [phone] Creatinine mass conc 2.29 mg/dL High 0.70-1.40 [facility] Comment on above: Performed By: #### P TT, NTBNP, HSTNT, CBCDIF, PT, CKCKMB, CMP #### [place] [phone] eGFR- Amer. 25 Low >60 [facility] Comment on above: Performed By: #### P TT, NTBNP, HSTNT, CBCDIF, PT, CKCKMB, CMP #### [place] [phone] GFR/1.73 sq M predicted among non-blacks MDRD vol rate/area (S/P/Bld) 21 . Low >60 [facility] Comment on above: Performed By: #### P TT, NTBNP, HSTNT, CBCDIF, PT, CKCKMB, CMP #### [place] [phone] Glucose mass conc 127 mg/dL High 65-100 [facility] Comment on above: Performed By: #### P TT, NTBNP, HSTNT, CBCDIF, PT, CKCKMB, CMP #### [place] [phone] Potassium molar conc 4.1 mmol/L Normal 3.5-5.0 [facility] Comment on above: Performed By: #### P TT, NTBNP, HSTNT, CBCDIF, PT, CKCKMB, CMP #### [place] [phone] Protein mass conc 6.6 g/dL Normal 6.0-8.4 [facility] Comment on above: Performed By: #### P TT, NTBNP, HSTNT, CBCDIF, PT, CKCKMB, CMP #### [place] [phone] Sodium molar conc 135 mmol/L Normal 132-148 [facility] Comment on above: Performed By: #### P TT, NTBNP, HSTNT, CBCDIF, PT, CKCKMB, CMP #### [place] [phone] Urea nitrogen mass conc 76 mg/dL High 8-25 [facility] Comment on above: Performed By: #### P TT, NTBNP, HSTNT, CBCDIF, PT, CKCKMB, CMP #### [place] [phone] ECG COMPLETEon 04-02-2018 ECG COMPLETE NAME : SARINA LOVETT PID : [id number] : 1945 Gender : Female Race : ORD : [id number] Procedure Date : Apr 02 2018 07:40:14 [...] ms QTC Calculation(Bezet) : 556 ms P [place] : 25 degrees R [place] : -62 degrees T [place] : 98 degrees Test Reason : OPEN Location : [facility] : [address] Overread By : ABBY BURT M.D. Edited By : ABBY BURT M.D. Referred By : , Acquired by : BETSEY FRASER [facility] NURSING PROGon 04-02-2018 Protein mass conc HNO ID: [id number] Author: Delma (Rn) ZAK Garsia Service: Critical Care Author Type: Registered [...] present. 1700States relief of nausea after meds. [facility] Protein mass conc HNO ID: [id number] Author: Xiomy Hamilton (Rn) ZAK Bermudez Service: (none) Author Type: Registered Nurse Type: Nursing Progress Note Filed: 04/02/2018 8:58 AM Note Text: Nursing Progress Note Patient Name: Sarina Lovett Patient Location: [place] [address]/[address] [address]: Report called to Natalie trudi [facility]. This note was completed by: Xiomy Bermudez RN [facility] Protein mass conc HNO ID: [id number] Author: Dorene Payton) ZAK Plata Service: Radiology Author Type: Registered Nurse [...] 02, 2018 TIME: 7:56 AM PAGER/CONTACT #: [phone] [facility] Protein mass conc HNO ID: [id number] Author: Kera CabreraRn) ZAK Childers Service: (none) Author Type: Registered Nurse Type: Nursing Progress Note Filed: 04/01/2018 11:32 PM Note Text: Nursing Progress Note Patient Name: Sarina Lovett Patient Location: [place] [address]/[place] [address] Daily Note: 2235 [address] House spoke with [...] note was completed by: Kera Childers RN [facility] PROGRESSon 04-02-2018 Protein mass conc HNO ID: [id number] Author: Eleni Flanagan Service: Nephrology Author Type: [...] SpO2 99% BMI 28.03 kg/m? Date 04/01/18 07 - 04/02/18 0659 Shift 9085-6570 0554-4938 4085-3704 24 Hour Total I N T A [...] Flanagan MD PhD PATIENT NAME: Sarina Lovett [facility] Protein mass conc HNO ID: [id number] Author: Mame Bowers Service: Hospital Medicine Author Type: Physician Type: Progress Notes Filed: 04/02/2018 2:35 PM Note Text: DEPARTMENT OF HOSPITAL MEDICINE PROGRESS NOTE Name: Sarina Lovett SERVICE DATE: 04/02/2018 SERVICE TIME: 10:23 AM Hospital Medicine/Primary Attending: Mame Bowers MD NIGHT AND WEEKEND COVERAGE: Days: [phone], please page me for patient issues. Nights: [phone], please page [facility] Hospitalist Night Coverage pager: [phone]. Dr. Thao to take over care for [...] examined, lying on the bed, transferred from [facility] with elevated troponin, pt stated that [...] DATE: April 02, 2018 TIME: 10:23 AM [facility] Protein mass conc HNO ID: [id number] Author: Laura Chance Service: General Internal Medicine [...] 03/24/182044 vte non-pharmacologic prophylaxis - none indicated (tx,ok) 03/24/182044 activity - mobilize patient ([address], [place]) VTE Prophylaxis: VTE prophylaxis appropriate SIGNATURE: Laura Chance APRN.CNP PATIENT NAME: Sarina Lovett DATE: April 02, 2018 TIME: 7:29 AM PAGER: D/w Dr. Peters D/w Dr. Jack D/w dr tenorio pt trasferred to [facility] all meds /orders continued except zofran- also could consider d/c zoloft, d/w [facility] nursing- they will discuss with attending Normal [facility] Renal Function Panelon 04-02 Albumin mass conc 3.4 g/dL Low 3.5-5.0 [facility] Comment on above: Performed By: #### P TT, NTBNP, HSTNT, CBCDIF, PT, CKCKMB, CMP #### [place] [phone] [place] [address] Anion gap molar conc 18 mmol/L Normal 9-18 [facility] Comment on above: Performed By: #### P TT, NTBNP, HSTNT, CBCDIF, PT, CKCKMB, CMP #### [address] [address] Calcium mass conc 8.8 mg/dL Normal 8.5-10.5 [facility] Comment on above: Performed By: #### P TT, NTBNP, HSTNT, CBCDIF, PT, CKCKMB, CMP #### [place] [phone] Chloride molar conc 97 mmol/L Low 98-110 [facility] Comment on above: Performed By: #### P TT, NTBNP, HSTNT, CBCDIF, PT, CKCKMB, CMP #### [place] [phone] CO2 molar conc 19 mmol/L Low 23-32 [facility] Comment on above: Performed By: #### P TT, NTBNP, HSTNT, CBCDIF, PT, CKCKMB, CMP #### [place] [address] Creatinine mass conc 2.33 mg/dL High 0.70-1.40 [facility] Comment on above: Result Comment: Revi ewed Performed By: #### P TT, NTBNP, HSTNT, CBCDIF, PT, CKCKMB, CMP #### [place] [phone] eGFR- Amer. 25 Low >60 [facility] Comment on above: Performed By: #### P TT, NTBNP, HSTNT, CBCDIF, PT, CKCKMB, CMP #### [address] GFR/1.73 sq M predicted among non-blacks MDRD vol rate/area (S/P/Bld) 21 . Low >60 [facility] Comment on above: Performed By: #### P TT, NTBNP, HSTNT, CBCDIF, PT, CKCKMB, CMP #### [place] [phone] Glucose mass conc 115 mg/dL High 65-100 [facility] Comment on above: Performed By: #### P TT, NTBNP, HSTNT, CBCDIF, PT, CKCKMB, CMP #### [place] [phone] Phosphate mass conc 5.0 mg/dL High 2.5-4.5 [facility] Comment on above: Performed By: #### P TT, NTBNP, HSTNT, CBCDIF, PT, CKCKMB, CMP #### [place] [phone] Potassium molar conc 4.1 mmol/L Normal 3.5-5.0 [facility] Comment on above: Performed By: #### P TT, NTBNP, HSTNT, CBCDIF, PT, CKCKMB, CMP #### [place] [phone] Sodium molar conc 134 mmol/L Normal 132-148 [facility] Comment on above: Performed By: #### P TT, NTBNP, HSTNT, CBCDIF, PT, CKCKMB, CMP #### [place] [phone] Urea nitrogen mass conc 77 mg/dL High 8-25 [facility] Comment on above: Performed By: #### P TT, NTBNP, HSTNT, CBCDIF, PT, CKCKMB, CMP #### [place] [phone] THERAPY NTon 04-02-2018 THERAPY NT HNO ID: [id number] Author: Raj (Bell Cleaner) LALO Alamo Service: Respiratory Therapy Author Type: Registered Resp Therapist Type: Therapy (PT/OT/Speech/Resp) Filed: 04/02/2018 7:49 AM Note Text: ABG drawn from right brachial artery. Site held until bleeding stopped. Normal [facility] Troponin Ton 04-02-2018 Troponin T.cardiac mass conc 9.390 ng/mL High 0.000-0.029 [facility] Comment on above: Result Comment: Urge nt value previously called On 04/02/18 at 0915 T Conn Performed By: #### P TT, NTBNP, HSTNT, CBCDIF, PT, CKCKMB, CMP #### [facility] [address] [place] [address] Troponin T.cardiac mass conc 9.520 ng/mL High 0.000-0.029 [facility] Comment on above: Result Comment: Urge nt value previously called on 04/02/18 0915 ASamra Performed By: #### P TT, NTBNP, HSTNT, CBCDIF, PT, CKCKMB, CMP #### [facility] [address] [place] [phone] Troponin T.cardiac mass conc 10.090 ng/mL High 0.000-0.029 [facility] Comment on above: Result Comment: Call ed to and read back by: Harley Valadez RN [facility] 04/02/2018 0915 CCelineSter[place]ora Performed By: #### P TT, NTBNP, HSTNT, CBCDIF, PT, CKCKMB, CMP #### [place] [phone] [place] [phone] XR CHEST 1V FRONTALon 2018 XR CHEST [...] EXTENT IN THE LEFT PERIHILAR REGION [employer] Supervisor: PSCGrace Transcribe Date/Time: Apr 02 2018 7:57A Dictated by : BROOKE SEE MD This examination was interpreted and the report reviewed and electronically signed by: BROOKE SEE MD on Apr 02 2018 7:59AM EST [id number] Normal [facility] Basic Metabolic Panlon 04-01 Anion gap molar conc 18 mmol/L Normal 9-18 [facility] Comment on above: Performed By: #### P TT, NTBNP, HSTNT, CBCDIF, PT, CKCKMB, CMP #### [place] [phone] Calcium mass conc 8.5 mg/dL Normal 8.5-10.5 [facility] Comment on above: Performed By: #### P TT, NTBNP, HSTNT, CBCDIF, PT, CKCKMB, CMP #### [place] [phone] Chloride molar conc 96 mmol/L Low 98-110 [facility] Comment on above: Result Comment: Revi ewed Performed By: #### P TT, NTBNP, HSTNT, CBCDIF, PT, CKCKMB, CMP #### [place] [phone] CO2 molar conc 19 mmol/L Low 23-32 [facility] Comment on above: Performed By: #### P TT, NTBNP, HSTNT, CBCDIF, PT, CKCKMB, CMP #### [place] [phone] Creatinine mass conc 3.28 mg/dL High 0.70-1.40 [facility] Comment on above: Performed By: #### P TT, NTBNP, HSTNT, CBCDIF, PT, CKCKMB, CMP #### [place] [phone] eGFR- Amer. 17 Low >60 [facility] Comment on above: Performed By: #### P TT, NTBNP, HSTNT, CBCDIF, PT, CKCKMB, CMP #### [place] [phone] GFR/1.73 sq M predicted among non-blacks MDRD vol rate/area (S/P/Bld) 14 . Low >60 [facility] Comment on above: Performed By: #### P TT, NTBNP, HSTNT, CBCDIF, PT, CKCKMB, CMP #### [place] [address] Glucose mass conc 91 mg/dL Normal 65-100 [facility] Comment on above: Performed By: #### P TT, NTBNP, HSTNT, CBCDIF, PT, CKCKMB, CMP #### [place] [address] Potassium molar conc 4.5 mmol/L Normal 3.5-5.0 [facility] Comment on above: Result Comment: Revi ewed Performed By: #### P TT, NTBNP, HSTNT, CBCDIF, PT, CKCKMB, CMP #### [place] [address] Sodium molar conc 133 mmol/L Normal 132-148 [facility] Comment on above: Performed By: #### P TT, NTBNP, HSTNT, CBCDIF, PT, CKCKMB, CMP #### [place] [id number] Urea nitrogen mass conc 88 mg/dL High 8-25 [facility] Comment on above: Performed By: #### P TT, NTBNP, HSTNT, CBCDIF, PT, CKCKMB, CMP #### [place] [address] CBC and Differentialon 04-01 Abs Baso <0.03 Normal <0.11 [facility] Comment on above: Performed By: #### P TT, NTBNP, HSTNT, CBCDIF, PT, CKCKMB, CMP #### [place] [phone] Abs Grant 0.47 k/uL Normal <0.87 [facility] Comment on above: Performed By: #### P TT, NTBNP, HSTNT, CBCDIF, PT, CKCKMB, CMP #### [place] [address] Abs Neut 5.68 k/uL Normal 1.45-7.50 [facility] Comment on above: Performed By: #### P TT, NTBNP, HSTNT, CBCDIF, PT, CKCKMB, CMP #### [place] [phone] Basophils/100 WBC (Bld) 0.2 % Normal [facility] Comment on above: Performed By: #### P TT, NTBNP, HSTNT, CBCDIF, PT, CKCKMB, CMP #### [place] [address] DTYPE Auto Diff Normal [facility] Comment on above: Performed By: #### P TT, NTBNP, HSTNT, CBCDIF, PT, CKCKMB, CMP #### [place] [address] Eosinophils #/vol (Bld) 0.05 10*3/uL Normal <0.46 [facility] Comment on above: Performed By: #### P TT, NTBNP, HSTNT, CBCDIF, PT, CKCKMB, CMP #### [place] [phone] Eosinophils/100 WBC (Bld) 0.8 % Normal [facility] Comment on above: Performed By: #### P TT, NTBNP, HSTNT, CBCDIF, PT, CKCKMB, CMP #### [place] [phone] Erythrocyte distribution width Ratio (RBC) 13.9 % Normal 11.5-15.0 [facility] Comment on above: Performed By: #### P TT, NTBNP, HSTNT, CBCDIF, PT, CKCKMB, CMP #### [place] [phone] Hematocrit Volume Fraction (Bld) 22.2 % Low 36.0-46.0 [facility] Comment on above: Performed By: #### P TT, NTBNP, HSTNT, CBCDIF, PT, CKCKMB, CMP #### [place] [address] Hemoglobin mass conc (Bld) 7.5 g/dL Low 11.5-15.5 [facility] Comment on above: Performed By: #### P TT, NTBNP, HSTNT, CBCDIF, PT, CKCKMB, CMP #### [place] [address] Lymphocytes #/vol (Bld) 0.32 10*3/uL Low 1.00-4.00 [facility] Comment on above: Performed By: #### P TT, NTBNP, HSTNT, CBCDIF, PT, CKCKMB, CMP #### [place] [address] Lymphocytes/100 WBC (Bld) 4.9 % Normal [facility] Comment on above: Performed By: #### P TT, NTBNP, HSTNT, CBCDIF, PT, CKCKMB, CMP #### [place] [address] MCH Entitic mass (RBC) 28.8 pG Normal 26.0-34.0 [facility] Comment on above: Performed By: #### P TT, NTBNP, HSTNT, CBCDIF, PT, CKCKMB, CMP #### [place] [address] MCHC mass conc (RBC) 33.8 g/dL Normal 30.5-36.0 [facility] Comment on above: Performed By: #### P TT, NTBNP, HSTNT, CBCDIF, PT, CKCKMB, CMP #### [place] [address] MCV Entitic volume (RBC) 85.4 fL Normal 80.0-100.0 [facility] Comment on above: Performed By: #### P TT, NTBNP, HSTNT, CBCDIF, PT, CKCKMB, CMP #### [place] [phone] Monocytes/100 WBC (Bld) 7.2 % Normal [facility] Comment on above: Performed By: #### P TT, NTBNP, HSTNT, CBCDIF, PT, CKCKMB, CMP #### [place] [phone] Neutrophils/100 WBC (Bld) 86.9 % Normal [facility] Comment on above: Performed By: #### P TT, NTBNP, HSTNT, CBCDIF, PT, CKCKMB, CMP #### [place] [phone] Platelet mean volume Entitic volume (Bld) 11.5 fL Normal 9.0-12.7 [facility] Comment on above: Performed By: #### P TT, NTBNP, HSTNT, CBCDIF, PT, CKCKMB, CMP #### [place] [phone] Platelets #/vol (Bld) 151 10*3/uL Normal 150-400 [facility] Comment on above: Performed By: #### P TT, NTBNP, HSTNT, CBCDIF, PT, CKCKMB, CMP #### [place] [phone] RBC #/vol (Bld) 2.60 10*6/uL Low 3.90-5.20 [facility] Comment on above: Performed By: #### P TT, NTBNP, HSTNT, CBCDIF, PT, CKCKMB, CMP #### [place] [phone] WBC #/vol (Bld) 6.53 10*3/uL Normal 3.70-11.00 [facility] Comment on above: Performed By: #### P TT, NTBNP, HSTNT, CBCDIF, PT, CKCKMB, CMP #### [address] [place] [address] NURSING PROGon 04-01-2018 Protein mass conc HNO ID: [id number] Author: Niharika (Rn) ZAK Bell Service: (none) Author Type: Registered Nurse Type: Nursing Progress Note Filed: 04/01/2018 6:18 PM Note Text: Nursing Progress Note Patient Name: Sarina Lovett Patient Location: [place] [address] [address] Daily Note:1530 (late entry) resumed care of patient. Pt resting in bed without s/s of distress. Pt denies pain. No needs at this time. Call light within reach, will continue to monitor. This note was completed by: Niharika Bell RN Normal [facility] PROGRESSon 04-01-2018 Protein mass conc HNO ID: [id number] Author: Eleni Flanagan Service: Nephrology Author Type: [...] SpO2 93% BMI 28.26 kg/m? Date 04/01/18 0700 - 04/02/18 0659 Shift 2425-5009 4761-0195 1250-2636 24 Hour Total I N T A [...] Flanagan MD PhD PATIENT NAME: Sarina Lovett [facility] Protein mass conc HNO ID: [id number] Author: Laura Chance Service: General Internal Medicine [...] 03/24/182044 vte non-pharmacologic prophylaxis - none indicated ([address]) 03/24/182044 activity - mobilize patient ([address]) VTE Prophylaxis: VTE prophylaxis appropriate SIGNATURE: Laura Chance APRN.VARNISH BLENDER PATIENT NAME: Sarina Lovett DATE: April 01, 2018 TIME: 8:05 AM PAGER: D/w dr peters And with pt permission d/w Paul rivera Care time > 35 minute, significant time spent d/w patient/family current plan of care Normal [facility] Phosphoruson 04-01-2018 Phosphate mass conc 5.9 mg/dL High 2.5-4.5 [facility] Comment on above: Performed By: #### P TT, NTBNP, HSTNT, CBCDIF, PT, CKCKMB, CMP #### [place] [id number] [place], [place] [id number] Arterial Blood Gas (FOR WEST USE ONLY)on 03-31-2018 Base Excess Negative Normal [facility] Comment on above: Result Comment: -3 t o 3 Performed By: #### P TT, NTBNP, HSTNT, CBCDIF, PT, CKCKMB, CMP #### [address] [address] CO2 molar conc 18 mmol/L Low 22.0-28.0 [facility] Comment on above: Performed By: #### P TT, NTBNP, HSTNT, CBCDIF, PT, CKCKMB, CMP #### [place] [id number] Device Nasal Cannula Normal [facility] Comment on above: Performed By: #### P TT, NTBNP, HSTNT, CBCDIF, PT, CKCKMB, CMP #### [place] [address] Drawsite Right Brachial Normal [facility] Comment on above: Performed By: #### P TT, NTBNP, HSTNT, CBCDIF, PT, CKCKMB, CMP #### [place] [phone] HCO3 molar conc (Bld) 17 mmol/L Low 22-26 [facility] Comment on above: Performed By: #### P TT, NTBNP, HSTNT, CBCDIF, PT, CKCKMB, CMP #### [place] [address] O2 Administered 28.0 Normal [facility] Comment on above: Performed By: #### P TT, NTBNP, HSTNT, CBCDIF, PT, CKCKMB, CMP #### [place] [phone] Oxygen ppres (Bld) 94 % Normal 90-98 [facility] Comment on above: Performed By: #### P TT, NTBNP, HSTNT, CBCDIF, PT, CKCKMB, CMP #### [place] [phone] Oxygen ppres (Bld) 76 mm Hg Low 80-100 [facility] Comment on above: Performed By: #### P TT, NTBNP, HSTNT, CBCDIF, PT, CKCKMB, CMP #### [address] [address] pCO2 32 mm Hg Low 35-48 [facility] Comment on above: Performed By: #### P TT, NTBNP, HSTNT, CBCDIF, PT, CKCKMB, CMP #### [place] [phone] pH (Bld) 7.35 [pH] Normal 7.35-7.45 [facility] Comment on above: Performed By: #### P TT, NTBNP, HSTNT, CBCDIF, PT, CKCKMB, CMP #### [place] [phone] CASE MANAGEMon 03-31-2018 CASE MANAGEM HNO ID: [id number] Author: Bro Wood (Sw) Service: Care Management Author Type: Egg Smeller Type: Care Mgt Progress Note Filed: 03/31/2018 1:35 PM Note Text: CARE MANAGEMENT PROGRESS NOTE SERVICE DATE: 03/31/2018 SERVICE TIME: 10:40 AM LOS: 7 days FREEDOM OF CHOICE GIVEN: Yes patient Financial Disclosure Provided Provider List: Home Care Preference: I. [facility] 2. [facility] Needs Prior to Discharge: To Be Determined Waiting on acceptance for HHC, patient will need home care order. Desat study needed to determine if patient will need O2. Addendum- [facility] can accept patient for HHC. SIGNATURE: KARRIE FORTE PATIENT NAME: Sarina Lovett DATE: March 31, 2018 TIME: 10:39 AM PAGER/CONTACT #: [phone] Normal [facility] CBC and Differentialon 03-31 Abs Baso <0.03 Normal <0.11 [facility] Comment on above: Performed By: #### P TT, NTBNP, HSTNT, CBCDIF, PT, CKCKMB, CMP #### [place] [phone] Abs Grant 0.49 k/uL Normal <0.87 [facility] Comment on above: Performed By: #### P TT, NTBNP, HSTNT, CBCDIF, PT, CKCKMB, CMP #### [place] [address] Abs Neut 7.17 k/uL Normal 1.45-7.50 [facility] Comment on above: Performed By: #### P TT, NTBNP, HSTNT, CBCDIF, PT, CKCKMB, CMP #### [place] [phone] Basophils/100 WBC (Bld) 0.1 % Normal [facility] Comment on above: Performed By: #### P TT, NTBNP, HSTNT, CBCDIF, PT, CKCKMB, CMP #### [place] [address] DTYPE Auto Diff Normal [facility] Comment on above: Performed By: #### P TT, NTBNP, HSTNT, CBCDIF, PT, CKCKMB, CMP #### [place] [address] Eosinophils #/vol (Bld) 0.05 10*3/uL Normal <0.46 [facility] Comment on above: Performed By: #### P TT, NTBNP, HSTNT, CBCDIF, PT, CKCKMB, CMP #### [place] [phone] Eosinophils/100 WBC (Bld) 0.6 % Normal [facility] Comment on above: Performed By: #### P TT, NTBNP, HSTNT, CBCDIF, PT, CKCKMB, CMP #### [place] [address] Erythrocyte distribution width Ratio (RBC) 13.9 % Normal 11.5-15.0 [facility] Comment on above: Performed By: #### P TT, NTBNP, HSTNT, CBCDIF, PT, CKCKMB, CMP #### [place] [phone] Hematocrit Volume Fraction (Bld) 23.5 % Low 36.0-46.0 [facility] Comment on above: Performed By: #### P TT, NTBNP, HSTNT, CBCDIF, PT, CKCKMB, CMP #### [place] [address] Hemoglobin mass conc (Bld) 7.8 g/dL Low 11.5-15.5 [facility] Comment on above: Performed By: #### P TT, NTBNP, HSTNT, CBCDIF, PT, CKCKMB, CMP #### [place] [address] Lymphocytes #/vol (Bld) 0.44 10*3/uL Low 1.00-4.00 [facility] Comment on above: Performed By: #### P TT, NTBNP, HSTNT, CBCDIF, PT, CKCKMB, CMP #### [place] [address] Lymphocytes/100 WBC (Bld) 5.4 % Normal [facility] Comment on above: Performed By: #### P TT, NTBNP, HSTNT, CBCDIF, PT, CKCKMB, CMP #### [place] [address] MCH Entitic mass (RBC) 28.5 pG Normal 26.0-34.0 [facility] Comment on above: Performed By: #### P TT, NTBNP, HSTNT, CBCDIF, PT, CKCKMB, CMP #### [place] [address] MCHC mass conc (RBC) 33.2 g/dL Normal 30.5-36.0 [facility] Comment on above: Performed By: #### P TT, NTBNP, HSTNT, CBCDIF, PT, CKCKMB, CMP #### [place] [address] MCV Entitic volume (RBC) 85.8 fL Normal 80.0-100.0 [facility] Comment on above: Performed By: #### P TT, NTBNP, HSTNT, CBCDIF, PT, CKCKMB, CMP #### [place] [phone] Monocytes/100 WBC (Bld) 6.0 % Normal [facility] Comment on above: Performed By: #### P TT, NTBNP, HSTNT, CBCDIF, PT, CKCKMB, CMP #### [place] [phone] Neutrophils/100 WBC (Bld) 87.9 % Normal [facility] Comment on above: Performed By: #### P TT, NTBNP, HSTNT, CBCDIF, PT, CKCKMB, CMP #### [place] [phone] Platelet mean volume Entitic volume (Bld) 11.6 fL Normal 9.0-12.7 [facility] Comment on above: Performed By: #### P TT, NTBNP, HSTNT, CBCDIF, PT, CKCKMB, CMP #### [place] [phone] Platelets #/vol (Bld) 152 10*3/uL Normal 150-400 [facility] Comment on above: Performed By: #### P TT, NTBNP, HSTNT, CBCDIF, PT, CKCKMB, CMP #### [phone] RBC #/vol (Bld) 2.74 10*6/uL Low 3.90-5.20 [facility] Comment on above: Performed By: #### P TT, NTBNP, HSTNT, CBCDIF, PT, CKCKMB, CMP #### [phone] WBC #/vol (Bld) 8.16 10*3/uL Normal 3.70-11.00 [facility] Comment on above: Performed By: #### P TT, NTBNP, HSTNT, CBCDIF, PT, CKCKMB, CMP #### [facility] [address] [place] [address] CONSULT PROGon 03-31-2018 Protein mass conc HNO ID: [id number] Author: Deanna Yoo Service: Cardiovascular Medicine Author [...] - - 68 23 98 % - 03/30/182109 - - - 64 24 - - 03/30/182103 - - - (!) 58 27 95 % - 03/30/181936 (!) 106/38 36.4 ?C (97.5 ?F) Temporal [...] 75 mg ORAL DAILY 03/24/182035 -- @RADHA ARGUETA([id number])@ VTE Prophylaxis: VTE prophylaxis appropriate SIGNATURE: Deanna Yoo APRN.CNP PATIENT NAME: Sarina Lovett DATE: March 31, 2018 TIME: 4:19 PM PAGER/CONTACT #: [facility] Protein mass conc HNO ID: [id number] Author: Kamille Lopez Service: Gastroenterology Author Type: [...] follow clinical progress ? Kamille Lopez CNP [facility] Thank you for allowing us to participate in the care of this patient. Please call with questions or concerns. SIGNATURE: Kamille Lopez APRN.BHARAT PATIENT NAME: Sarina Lovett DATE: March 31, 2018 TIME: 11:03 AM PAGER: [phone] [facility] Protein mass conc HNO ID: [id number] Author: Marito Real Service: Nephrology Author Type: [...] March 31, 2018 TIME: 10:57 AM PAGER: [phone] Addendum Pt seen and examined. Agree with Dr De Los Santos's note. Her renal function continues to worsen. Will need to consider dialysis by Tuesday if her renal function continues to worsen. Continue conservative therapy for contrast nephropathy Use Lasix as needed if she is symptomatically SOB Hyperphosphatemia - add Phoslo 1334mg tidac Met Acidosis - cont NaHCO3 1300mg tid Dr Real [facility] Comp Metabolic Panelon 03-31 Albumin mass conc 3.2 g/dL Low 3.5-5.0 [facility] Comment on above: Performed By: #### P TT, NTBNP, HSTNT, CBCDIF, PT, CKCKMB, CMP #### [place] [phone] ALP enzyme act/vol 80 U/L Normal 34-123 [facility] Comment on above: Performed By: #### P TT, NTBNP, HSTNT, CBCDIF, PT, CKCKMB, CMP #### [place] [phone] ALT enzyme act/vol 20 U/L Normal 0-45 [facility] Comment on above: Performed By: #### P TT, NTBNP, HSTNT, CBCDIF, PT, CKCKMB, CMP #### [place] [phone] Anion gap molar conc 26 mmol/L High 9-18 [facility] Comment on above: Performed By: #### P TT, NTBNP, HSTNT, CBCDIF, PT, CKCKMB, CMP #### [address] AST enzyme act/vol 29 U/L Normal 7-40 [facility] Comment on above: Performed By: #### P TT, NTBNP, HSTNT, CBCDIF, PT, CKCKMB, CMP #### [place] [phone] Bilirubin mass conc 0.2 mg/dL Normal 0.2-1.3 [facility] Comment on above: Performed By: #### P TT, NTBNP, HSTNT, CBCDIF, PT, CKCKMB, CMP #### [place] [phone] Calcium mass conc 7.8 mg/dL Low 8.5-10.5 [facility] Comment on above: Performed By: #### P TT, NTBNP, HSTNT, CBCDIF, PT, CKCKMB, CMP #### [place] [phone] Chloride molar conc 88 mmol/L Low 98-110 [facility] Comment on above: Performed By: #### P TT, NTBNP, HSTNT, CBCDIF, PT, CKCKMB, CMP #### [place] [phone] CO2 molar conc 14 mmol/L Low 23-32 [facility] Comment on above: Performed By: #### P TT, NTBNP, HSTNT, CBCDIF, PT, CKCKMB, CMP #### [address] Creatinine mass conc 3.60 mg/dL High 0.70-1.40 [facility] Comment on above: Performed By: #### P TT, NTBNP, HSTNT, CBCDIF, PT, CKCKMB, CMP #### [place] [phone] eGFR- Amer. 15 Low >60 [facility] Comment on above: Performed By: #### P TT, NTBNP, HSTNT, CBCDIF, PT, CKCKMB, CMP #### [place] [phone] GFR/1.73 sq M predicted among non-blacks MDRD vol rate/area (S/P/Bld) 12 . Low >60 [facility] Comment on above: Performed By: #### P TT, NTBNP, HSTNT, CBCDIF, PT, CKCKMB, CMP #### [place] [phone] Glucose mass conc 132 mg/dL High 65-100 [facility] Comment on above: Performed By: #### P TT, NTBNP, HSTNT, CBCDIF, PT, CKCKMB, CMP #### [phone] Potassium molar conc 3.2 mmol/L Low 3.5-5.0 [facility] Comment on above: Performed By: #### P TT, NTBNP, HSTNT, CBCDIF, PT, CKCKMB, CMP #### [place] [phone] Protein mass conc 6.3 g/dL Normal 6.0-8.4 [facility] Comment on above: Performed By: #### P TT, NTBNP, HSTNT, CBCDIF, PT, CKCKMB, CMP #### [place] [phone] Sodium molar conc 128 mmol/L Low 132-148 [facility] Comment on above: Performed By: #### P TT, NTBNP, HSTNT, CBCDIF, PT, CKCKMB, CMP #### [place] [phone] Urea nitrogen mass conc 85 mg/dL High 8-25 [facility] Comment on above: Performed By: #### P TT, NTBNP, HSTNT, CBCDIF, PT, CKCKMB, CMP #### [place] [phone] Lactateon 03-31-2018 Lactate molar conc 0.6 mmol/L Normal 0.4-2.0 [facility] Comment on above: Performed By: #### P TT, NTBNP, HSTNT, CBCDIF, PT, CKCKMB, CMP #### [place] [phone] Magnesiumon 03-31-2018 Magnesium mass conc 2.1 mg/dL Normal 1.7-2.6 [facility] Comment on above: Performed By: #### P TT, NTBNP, HSTNT, CBCDIF, PT, CKCKMB, CMP #### [place] [phone] NURSING PROGon 03-31-2018 Protein mass conc HNO ID: [id number] Author: Neris English RN Service: Abstract Author Type: Registered Nurse Type: Nursing Progress Note Filed: 03/31/2018 5:58 PM Note Text: Nursing Progress Note Patient Name: Sarina Lovett Patient Location: [address]/[id number] Daily Note: 1757: Family member states patient has a history of vertigo. 1500: Dr. Peters notified of ABG results. No further orders given, continue to monitor patient. 1423: verbal Orders from Dr. Peters 142: Patient very drowsy c/o dizziness, orthos negative. Page sent out to Dr. Peters 1023: Page sent to GI PRETTY Lopez [id number] Barry LOVETT hemoglobin this morning down to 7.8. No BMs yet, or other signs of bleeding. Okay to give Plavix and heparin? Neris Rojas [phone]: Dr. Peters returned page, aware of labs. 0830: Dr. Real aware of abnormal labs. No orders received. Will continue to monitor. 0826:Page sent to Dr. Peters for abnormal labs. This note was completed by: Neris English RN [facility] NUTRITIONon 03-31-2018 NUTRITION HNO ID: [id number] Author: Ophelia Mackenzie Service: Nutrition Therapy Author Type: Meringuer Type: Nutrition Filed: 03/31/2018 12:24 PM Note [...] Routine Care/15 min 1 unit SIGNATURE: OPHELIA MACKENZIE DTR PATIENT NAME: Sarina Lovett DATE: March 31, 2018 TIME: 12:09 PM PAGER: [phone] [facility] PROGRESSon 03-31-2018 Protein mass conc HNO ID: [id number] Author: Andree Peters Service: General Internal Medicine [...] 03/24/182044 vte non-pharmacologic prophylaxis - none indicated (tx,ok) 03/24/182044 activity - mobilize patient (tx,ok) VTE Prophylaxis: VTE prophylaxis appropriate SIGNATURE: Andree Peters MD PATIENT NAME: Sarina Lovett DATE: March 31, 2018 TIME: 9:13 AM PAGER: [facility] Phosphoruson 03-31-2018 Phosphate mass conc 6.2 mg/dL High 2.5-4.5 [facility] Comment on above: Performed By: #### P TT, NTBNP, HSTNT, CBCDIF, PT, CKCKMB, CMP #### [facility] [place] [address] THERAPY NTon 03-31-2018 THERAPY NT HNO ID: [id number] Author: Yanelis (Bell Cleaner) LALO Jean Baptiste Service: (none) Author Type: Registered Resp Therapist Type: Therapy (PT/OT/Speech/Resp) Filed: 03/31/2018 2:48 PM Note Text: ABG drawn from Right Brachial including Lactate no ; Laci test no; pressure held, bleeding stopped. [facility] ALLIED HEALTHon 03-30-2018 ALLIED HEALTH HNO ID: [id number] Author: CAROLINA Guthrie (Ct) Service: Radiology Author Type: Court Recorder Type: Allied Health Filed: 03/30/2018 7:21 PM [...] CAROLINA Guthrie March 30, 2018 7:20 PM [facility] Basic Metabolic Panlon 03-30 Anion gap molar conc 23 mmol/L High 9-18 [facility] Comment on above: Performed By: #### P TT, NTBNP, HSTNT, CBCDIF, PT, CKCKMB, CMP #### [facility] [address] Calcium mass conc 8.0 mg/dL Low 8.5-10.5 [facility] Comment on above: Performed By: #### P TT, NTBNP, HSTNT, CBCDIF, PT, CKCKMB, CMP #### [place] [phone] Chloride molar conc 93 mmol/L Low 98-110 [facility] Comment on above: Performed By: #### P TT, NTBNP, HSTNT, CBCDIF, PT, CKCKMB, CMP #### [place] [phone] CO2 molar conc 16 mmol/L Low 23-32 [facility] Comment on above: Performed By: #### P TT, NTBNP, HSTNT, CBCDIF, PT, CKCKMB, CMP #### [place] [phone] Creatinine mass conc 3.15 mg/dL High 0.70-1.40 [facility] Comment on above: Performed By: #### P TT, NTBNP, HSTNT, CBCDIF, PT, CKCKMB, CMP #### [place] [phone] eGFR- Amer. 18 Low >60 [facility] Comment on above: Performed By: #### P TT, NTBNP, HSTNT, CBCDIF, PT, CKCKMB, CMP #### [phone] GFR/1.73 sq M predicted among non-blacks MDRD vol rate/area (S/P/Bld) 15 . Low >60 [facility] Comment on above: Performed By: #### P TT, NTBNP, HSTNT, CBCDIF, PT, CKCKMB, CMP #### [place] [phone] Glucose mass conc 120 mg/dL High 65-100 [facility] Comment on above: Performed By: #### P TT, NTBNP, HSTNT, CBCDIF, PT, CKCKMB, CMP #### [place] [phone] Potassium molar conc 3.9 mmol/L Normal 3.5-5.0 [facility] Comment on above: Performed By: #### P TT, NTBNP, HSTNT, CBCDIF, PT, CKCKMB, CMP #### [place] [phone] Sodium molar conc 132 mmol/L Normal 132-148 [facility] Comment on above: Performed By: #### P TT, NTBNP, HSTNT, CBCDIF, PT, CKCKMB, CMP #### [place] [phone] Urea nitrogen mass conc 74 mg/dL High 8-25 [facility] Comment on above: Performed By: #### P TT, NTBNP, HSTNT, CBCDIF, PT, CKCKMB, CMP #### [place] [phone] CASE MANAGEMon 03-30-2018 CASE MANAGEM HNO ID: [id number] Author: Bro Wood (Sw) Service: Care Management Author Type: Egg Smeller Type: Care Mgt Progress Note Filed: 03/30/2018 2:19 PM Note Text: CARE MANAGEMENT PROGRESS NOTE SERVICE DATE: 03/30/2018 SERVICE TIME: 2:18 PM LOS: 6 days FREEDOM OF CHOICE GIVEN: Yes patient Financial Disclosure Provided Provider List: Home Care Waiting on [facility] choices. SIGNATURE: KARRIE FORTE PATIENT NAME: Sarina Lovett DATE: March 30, 2018 TIME: 2:18 PM PAGER/CONTACT #: [phone] [facility] CASE MANAGEM HNO ID: [id number] Author: Bro Wood (Sw) Service: Care Management Author Type: Egg Smeller Type: Care Mgt Progress Note Filed: 03/30/2018 9:28 AM Note Text: CARE MANAGEMENT PROGRESS NOTE SERVICE DATE: 03/30/2018 SERVICE TIME: 9:25 AM LOS: 6 days Patient transferred to [facility]. PT has NSTEMI. Elevated creatinine. SW will follow for discharge needs. SIGNATURE: KARRIE FORTE PATIENT NAME: Sarina Lovett DATE: March 30, 2018 TIME: 9:25 AM PAGER/CONTACT #: [phone] Normal [facility] CKon 03-30-2018 CK enzyme act/vol 242 U/L High 30-220 [facility] Comment on above: Performed By: #### P TT, NTBNP, HSTNT, CBCDIF, PT, CKCKMB, CMP #### [facility] [address] [place] [address] CONSULTon 03-30-2018 CONSULT HNO ID: [id number] Author: Cindy Veliz (Pa) Service: Gastroenterology Author Type: Physician Pt Escort Type: Consults Filed: 03/30/2018 7:48 PM Note Text: Attestation signed by Kishor Christensen at 04/11/2018 11:23 AM harpal Corley r/o diverticulitis and ischemic colitis CONSULT: GI [...] chest pain found ot have NSTEMI s/p PCI/DAIVD of SVG to RCA on 03/26/2018 c/b [...] nausea. Denies fever and vomiting. Recrods from [facility] show CT scan 02/22/17 consistent with [...] Coronary atherosclerosis of unspecified type of vessel, [place] or graft Coronary Atherosclerosis - Diabetes (HCC) [...] March 30, 2018 TIME: 10:27 AM PAGER: [phone] [facility] CONSULT PROGon 03-30-2018 Protein mass conc HNO ID: [id number] Author: Marito Real Service: Nephrology Author Type: [...] rise. Stop Hydralazine as well Dr Real Normal [facility] CT ABD/PEL WO IVCONon 2018 CT ABD/PEL [...] with overlying atelectasis, right greater than left. Mill Supervisor: PSCB Transcribe Date/Time: Mar 30 2018 10:04P Dictated by : KUSH BARAJAS MD This examination was interpreted and the report reviewed and electronically signed by: KUSH BARAJAS MD on Mar 30 2018 10:23PM EST [id number] Normal [facility] Magnesiumon 03-30-2018 Magnesium mass conc 2.3 mg/dL Normal 1.7-2.6 [facility] Comment on above: Result Comment: Revi ewed Performed By: #### P TT, NTBNP, HSTNT, CBCDIF, PT, CKCKMB, CMP #### [facility] [address] [place] [address] NURSING PROGon 03-30-2018 Protein mass conc HNO ID: [id number] Author: Shiv CabreraRn) ZAK Majano Service: (none) Author Type: Registered Nurse Type: Nursing Progress Note Filed: 03/30/2018 6:55 AM Note Text: Nursing Progress Note Patient Name: Sarina Lovett Patient Location: [place] [address]/[address] Daily Note:patient arrives from [facility] by wheelchair, NPR complete, tele maintained, belongings with patient, oriented patient to room. This note was completed by: Shiv Majano RN [facility] PROGRESSon 03-30-2018 Protein mass conc HNO ID: [id number] Author: Mesha Ferraro Service: General Internal Medicine [...] mL INHALATION q 4 H while awake [facility] Jessicamahnaz Alansari 3 mL at 03/30/18 0808 atorvastatin 80 mg tab(s) (LIPITOR) 80 mg ORAL AT BEDTIME E Doris Nukta 80 mg at 03/28/18 211 nitroglycerin sublingual 0.4 mg tab(s) (NITROQUICK) 0.4 [...] mL syringe 12.5 g INTRAVENOUS PRN Chiara Onger pantoprazole DR 20 mg tab(s) (PROTONIX) 20 mg ORAL DAILY (6 AM) Larisa Massier 20 mg at 03/30/18 0727 INTERVAL HISTORY [...] - followed by CM Discussed with Dr. Peters RN, patient. Time spent >30 minutes. SIGNATURE: Mesha Ferarro APRN.VARNISH BLENDER PATIENT NAME: Sarina Lovett DATE: 03/30/18 TIME: 9:35 AM PAGER/CONTACT #: [phone] [facility] THERAPY NTon 03-30-2018 THERAPY NT HNO ID: [id number] Author: Kindra Mei/Shima Harper Service: Occupational Therapy Author Type: Occupational Therapist Type: Therapy (PT/OT/Speech/Resp) Filed: 03/30/2018 2:40 PM Note Text: Occupational Therapy Evaluation SERVICE DATE: 03/30/2018 SERVICE TIME: 1315 to 1340 ROOM: [place] [address] Recommended Discharge Disposition: Home OT Anticipated Discharge Needs: Physical Assist at Home Physical Assist at Home for: Cleaning;Laundry;Meal s;Stairs;Self Care;Shopping;Transpo rtation Recommended Discharge Equipment: Grab Bars-Shower;Grab Bars-Toilet;Hand Held Shower;Long Handled Sponge;Wheeled Walker;Project Intern;Shower Chair OT Recommendations to Nursing: To Bathroom [...] of daily living (ADL) Interventions Provided: Evaluation;Self Assisted Management (39494) $ Evaluation-Low (96982) Billed Units: 1 unit Self Assisted Management (36277) Treatment Minutes: 10 1 unit Skilled Intervention(s): [...] DATE: March 30, 2018 TIME: 2:38 PM [facility] THERAPY NT HNO ID: [id number] Author: Ade (Pt) Claus Service: Physical Therapy Author Type: Physical Therapist Type: Therapy (PT/OT/Speech/Resp) Filed: 03/30/2018 12:42 PM Note Text: Physical Therapy Evaluation SERVICE DATE: 03/30/2018 SERVICE TIME: 1140 to 1205 ROOM: [place] [address] Recommended Discharge Disposition: Home PT Anticipated Discharge [...] mobility-other;Muscle Weakness (generalized) Interventions Provided: Evaluation;Gait Training (65204) $ Evaluation-Low (09866) Billed Units: 1 unit Gait Training (37517) Treatment Minutes: 10 1 unit Skilled Intervention(s): [...] Assistance Dynamic Standing Balance: Contact Guard Assistance -M: 7: Walk 25 feet or more Please see discipline specific clinical documentation flowsheet for complete details for this therapy evaluation/treatment. SIGNATURE: Ade Devlin PT PATIENT NAME: Sarina Lovett DATE: March 30, 2018 TIME: 12:39 PM Normal [facility] US ABD SPLEENon 03-30-2018 US ABD SPLEEN * * *Final Report* * * DATE OF EXAM: Mar 30 2018 11:09AM FVU 1039 - US ABD SPLEEN / PROCEDURE [...] contrast-enhanced CT or MRI is again recommended. Mill Supervisor: PSCB Transcribe Date/Time: Mar 30 2018 12:21P Dictated by : PHILLIP MONTALVO MD This examination was interpreted and the report reviewed and electronically signed by: PHILLIP MONTALVO MD on Mar 30 2018 12:27PM EST [id number] N Normal [facility] Basic Metabolic Panlon 03-29 Anion gap molar conc 23 mmol/L High 9-18 [facility] Comment on above: Performed By: #### B MP, MG1, CBCDIF ####[facility] [place], [place] [address] Calcium mass conc 8.0 mg/dL Low 8.5-10.5 [facility] Comment on above: Performed By: #### B MP, MG1, CBCDIF ####[place] [address] Chloride molar conc 94 mmol/L Low 98-110 [facility] Comment on above: Performed By: #### B MP, MG1, CBCDIF ####[address] CO2 molar conc 16 mmol/L Low 23-32 [facility] Comment on above: Performed By: #### B MP, MG1, CBCDIF ####[place] [address] Creatinine mass conc 2.63 mg/dL High 0.70-1.40 [facility] Comment on above: Performed By: #### B MP, MG1, CBCDIF ####[address] eGFR- Amer. 22 Low >60 [facility] Comment on above: Performed By: #### B MP, MG1, CBCDIF ####[place] [phone] GFR/1.73 sq M predicted among non-blacks MDRD vol rate/area (S/P/Bld) 18 . Low >60 [facility] Comment on above: Performed By: #### B MP, MG1, CBCDIF ####[place] [phone] Glucose mass conc 122 mg/dL High 65-100 [facility] Comment on above: Performed By: #### B MP, MG1, CBCDIF ####[place] [phone] Potassium molar conc 3.4 mmol/L Low 3.5-5.0 [facility] Comment on above: Performed By: #### B MP, MG1, CBCDIF ####[place] [phone] Sodium molar conc 133 mmol/L Normal 132-148 [facility] Comment on above: Performed By: #### B MP, MG1, CBCDIF ####[place] [phone] Urea nitrogen mass conc 59 mg/dL High 8-25 [facility] Comment on above: Performed By: #### B MP, MG1, CBCDIF ####[place] [address] C difficile PCRon 03-29-2018 C difficile PCR Negative Normal [facility] Comment on above: Performed By: #### P TT, NTBNP, HSTNT, CBCDIF, PT, CKCKMB, CMP #### [place] [phone] CBC and Differentialon 03-29 Abs Baso <0.03 Normal <0.11 [facility] Comment on above: Performed By: #### B MP, MG1, CBCDIF ####[place] [address] Abs Grant 0.81 k/uL Normal <0.87 [facility] Comment on above: Performed By: #### B MP, MG1, CBCDIF ####[place] [id number] Abs Neut 10.08 k/uL High 1.45-7.50 [facility] Comment on above: Performed By: #### B MP, MG1, CBCDIF ####[place] [id number] Basophils/100 WBC (Bld) 0.0 % Normal [facility] Comment on above: Performed By: #### B MP, MG1, CBCDIF ####[place] [phone] DTYPE Auto Diff Normal [facility] Comment on above: Performed By: #### B MP, MG1, CBCDIF ####[place] [address] Eosinophils #/vol (Bld) 10*3/uL Normal <0.46 [facility] Comment on above: Performed By: #### B MP, MG1, CBCDIF ####[place] [address] Eosinophils/100 WBC (Bld) 0.0 % Normal [facility] Comment on above: Performed By: #### B MP, MG1, CBCDIF ####[place] [address] Erythrocyte distribution width Ratio (RBC) 13.8 % Normal 11.5-15.0 [facility] Comment on above: Performed By: #### B MP, MG1, CBCDIF ####[place] [address] Hematocrit Volume Fraction (Bld) 25.3 % Low 36.0-46.0 [facility] Comment on above: Performed By: #### B MP, MG1, CBCDIF ####[place] [address] Hemoglobin mass conc (Bld) 8.3 g/dL Low 11.5-15.5 [facility] Comment on above: Performed By: #### B MP, MG1, CBCDIF ####[place] [address] Lymphocytes #/vol (Bld) 0.31 10*3/uL Low 1.00-4.00 [facility] Comment on above: Performed By: #### B MP, MG1, CBCDIF ####[place] [address] Lymphocytes/100 WBC (Bld) 2.8 % Normal [facility] Comment on above: Performed By: #### B MP, MG1, CBCDIF ####[place] [phone] MCH Entitic mass (RBC) 28.5 pG Normal 26.0-34.0 [facility] Comment on above: Performed By: #### B MP, MG1, CBCDIF ####[place] [phone] MCHC mass conc (RBC) 32.8 g/dL Normal 30.5-36.0 [facility] Comment on above: Performed By: #### B MP, MG1, CBCDIF ####[place] [phone] MCV Entitic volume (RBC) 86.9 fL Normal 80.0-100.0 [facility] Comment on above: Performed By: #### B MP, MG1, CBCDIF ####[place] [phone] Monocytes/100 WBC (Bld) 7.2 % Normal [facility] Comment on above: Performed By: #### B MP, MG1, CBCDIF ####[place] [phone] Neutrophils/100 WBC (Bld) 90.0 % Normal [facility] Comment on above: Performed By: #### B MP, MG1, CBCDIF ####[place] [phone] Platelet mean volume Entitic volume (Bld) 11.2 fL Normal 9.0-12.7 [facility] Comment on above: Performed By: #### B MP, MG1, CBCDIF ####[place] [phone] Platelets #/vol (Bld) 132 10*3/uL Low 150-400 [facility] Comment on above: Performed By: #### B MP, MG1, CBCDIF ####[place] [phone] RBC #/vol (Bld) 2.91 10*6/uL Low 3.90-5.20 [facility] Comment on above: Performed By: #### B MP, MG1, CBCDIF ####[place] [id number] [place], [place] [phone] WBC #/vol (Bld) 11.20 10*3/uL High 3.70-11.00 [facility] Comment on above: Performed By: #### B MP, MG1, CBCDIF ####[facility] [place], [place] [phone] CKon 03-29-2018 CK enzyme act/vol 432 U/L High 30-220 [facility] Comment on above: Performed By: #### C K ####[facility] [place], [place] [phone] CONSULT PROGon 03-29-2018 Protein mass conc HNO ID: [id number] Author: Juanito Carlisle Service: Cardiovascular Medicine Author [...] % 80.2 kg (176 lb 12.9 oz) 03/29/18 0400 - 37 ?C (98.6 ?F) - [...] 75 mg ORAL DAILY 03/24/182035 -- @RADHA ARGUETA([id number],1)@ VTE Prophylaxis: Needs to be revised SIGNATURE: Juanito Carlisle MD PATIENT NAME: Sarina Lovett DATE: March 29, 2018 TIME: 3:59 PM PAGER/CONTACT #: [facility] Protein mass conc HNO ID: [id number] Author: Marito Real Service: Nephrology Author Type: [...] Germain De Los Santos MD PATIENT NAME: aSrina Lovett DATE: March 29, 2018 TIME: 10:23 AM PAGER: [phone] Addendum Pt seen and examined. Agree with Dr De Los Santos's note. Her renal function continues to worsen from her contrast nephropathy. Continue to use Lasix as needed only for fluid overload. She does not need IVF for oliguria. Dr Real Normal [facility] Magnesiumon 03-29-2018 Magnesium mass conc 1.6 mg/dL Low 1.7-2.6 [facility] Comment on above: Performed By: #### B MP, MG1, CBCDIF ####[facility] [place], [place] [phone] NURSING PROGon 03-29-2018 Protein mass conc HNO ID: [id number] Author: Augie (Zak) ZAK Villafuerte Service: (none) Author Type: Registered Nurse Type: Nursing Progress Note Filed: 03/30/2018 2:22 AM Note Text: Nursing Progress Note Patient Name: Sarina Lovett Patient Location: [id number]/[facility]* Daily Note: 1943 The patient assisted to the bedside commode [...] at this time. 0220 report called to [facility] This note was completed by: Augie Villafuerte RN [facility] Protein mass conc HNO ID: [id number] Author: Delma CabreraRn) ZAK Garsia Service: Critical Care Author Type: Registered [...] to obtain and sent specimen for c-diff.. Normal [facility] Protein mass conc HNO ID: [id number] Author: Constantine CabreraRn) ZAK Potter Service: (none) Author Type: Registered Nurse Type: Nursing Progress Note Filed: 03/29/2018 2:58 AM Note Text: Nursing Progress Note Patient Name: Sarina Lovett Patient Location: [id number]/[facility]- 0[facility]* Daily Note: 1915: Received report from ZAK Nguyễn. 2000: Assessment complete, see flow sheet. VSS. 213: Nicardine held per MAR parameters. 0000: Reassessment complete, see flow sheet. VSS. 0230: Dr. Ferrari notified of pt's decreased UO. Order placed for 250 NS Bolus. Given per APR. This note was completed by: Constantine Potter RN [facility] PROGRESSon 03-29-2018 Protein mass conc HNO ID: [id number] Author: Kinsey Dumas MD Service: Hospital Medicine [...] to statins and holding LOS due to JULITEA ? Acute hypoxic respiratory failure: improved Likely [...] Staff, Hospital Medicine March 29, 2018 ? [facility] MEDICINE [facility] PROGRESS NOTE NAME: Sarina [...] exacerbation than COPD exacerbation. Last EF in 2016 48%, repeat echo stable with EF 50% [...] in 2013 measuring 2.3x3.5cm. On US in 2014, the lesion was not seen. Will repeat [...] home, last A1c 9.3% in 08/2016 at [facility]. Repeat A1c on admission 6.0%. - SSI1 [...] MD Family Medicine PGY2 March 29, 2018 [facility] ALLIED HEALTHon 03-28-2018 ALLIED HEALTH HNO ID: [id number] Author: Amanda Retana (Rt) Service: Radiology Author Type: Court Recorder Type: Allied Health Filed: 03/28/2018 10:25 AM [...] Not applicable SIGNED BY: Radha Smith RT March 28, 2018 10:24 AM Normal [facility] Basic Metabolic Panlon 03-28 Anion gap molar conc 25 mmol/L High 9-18 [facility] Comment on above: Performed By: #### B MP, MG1 ####[place] [phone] Calcium mass conc 8.4 mg/dL Low 8.5-10.5 [facility] Comment on above: Performed By: #### B MP, MG1 ####[place] [phone] Chloride molar conc 96 mmol/L Low 98-110 [facility] Comment on above: Result Comment: Revi ewed Performed By: #### B MP, MG1 ####[place] [phone] CO2 molar conc 14 mmol/L Low 23-32 [facility] Comment on above: Performed By: #### B MP, MG1 ####[place] [phone] Creatinine mass conc 2.05 mg/dL High 0.70-1.40 [facility] Comment on above: Performed By: #### B MP, MG1 ####[place] [phone] eGFR- Amer. 29 Low >60 [facility] Comment on above: Performed By: #### B MP, MG1 ####[place] [phone] GFR/1.73 sq M predicted among non-blacks MDRD vol rate/area (S/P/Bld) 24 . Low >60 [facility] Comment on above: Performed By: #### B MP, MG1 ####[place] [phone] Glucose mass conc 146 mg/dL High 65-100 [facility] Comment on above: Performed By: #### B MP, MG1 ####[facility] [place], [place] [phone] Potassium molar conc 4.1 mmol/L Normal 3.5-5.0 [facility] Comment on above: Performed By: #### B MP, MG1 ####[facility] [place], [place] [phone] Sodium molar conc 135 mmol/L Normal 132-148 [facility] Comment on above: Performed By: #### B MP, MG1 ####[facility] [place], [place] [phone] Urea nitrogen mass conc 41 mg/dL High 8-25 [facility] Comment on above: Performed By: #### B MP, MG1 ####[facility] [place], [place] [phone] CONSULT PROGon 03-28-2018 Protein mass conc HNO ID: [id number] Author: Deanna Yoo Service: Cardiovascular Medicine Author [...] - - 72 22 99 % - 03/27/182199 - - - 76 27 99 % - 03/27/18 2130 130/82 - - 75 28 - - 03/27/182114 - - - - 25 98 % - 03/27/182112 - - - 70 24 95 % - 03/27/182106 - - - 71 (!) 32 93 % - 03/27/18 2100 (!) 157/39 - - 73 30 95 % - 03/27/182029 - - - 73 30 93 % [...] bid She will follow up with her dulser at [facility] after discharge Active Problems: Essential hypertension, benign [...] 75 mg ORAL DAILY 03/24/182035 -- @RADHA ARGUETA([id number],1)@ VTE Prophylaxis: VTE prophylaxis appropriate SIGNATURE: Deanna Yoo APRN.CNP PATIENT NAME: Sarina Lovett DATE: March 28, 2018 TIME: 1:42 PM PAGER/CONTACT #: Michelle [facility] Protein mass conc HNO ID: [id number] Author: Marito Real Service: Nephrology Author Type: [...] 28, 2018 TIME: 11:08 AM PAGER/CONTACT #: [phone] Addendum Patient seen and examined. Agree with Dr. De Los Santos's progress note. Renal function is worsening likely due to contrast nephropathy. Give Lasix as needed when she is SOB. Renal US shows splenic masses - consider noncontrast CT. Lactate is normal. Dr Real Normal [facility] Lactateon 03-28-2018 Lactate molar conc 1.1 mmol/L Normal 0.4-2.0 [facility] Comment on above: Performed By: #### L ACT ####[place] [phone] Magnesiumon 03-28-2018 Magnesium mass conc 1.7 mg/dL Normal 1.7-2.6 [facility] Comment on above: Performed By: #### B MP, MG1 ####[place] [phone] NURSING PROGon 03-28-2018 Protein mass conc HNO ID: [id number] Author: Delma (Rn) ZAK Garsia Service: Critical Care Author Type: Registered [...] at bedside.Patient continues to deny complaints. Normal [facility] Protein mass conc HNO ID: [id number] Author: Constantine CabreraRn) ZAK Potter Service: (none) Author Type: Registered Nurse Type: Nursing Progress Note Filed: 03/28/2018 7:47 AM Note Text: Nursing Progress Note Patient Name: Sarina Lovett Patient Location: [place] [address] [address]* Daily Note: 1914: Received report from ZAK Mclaughlin. 1999: Assessment complete, see flow sheet. Pt presenting with lower diastolic pressures but with MAP WNL. All other VSS. 2129: Pt presenting with increasing SOB at rest and upon exertion and toileting. Orders for CPAP and Browning Catheter placed by [facility] Hospitalist. 2199: [facility] hospitalist notified of widening pulse pressures and decreased diastolic preesure. Orders placed for ECHO to be completed. 0000: Assessment complete, see flow sheet. 0400: Assessment complete, see flow sheet. 0530: Removed pt CPAP per [facility] hospitalist permission. Pt placed on 6L NC. Pt SpO2 > 92% 0600: Pt placed on 4L NC. Pt SpO2 > 92% 0630: Pt placed on 2L NC. Pt SpO2 > 92%. 0715: Report given to ZAK Nguyễn This note was completed by: Constantine Potter RN [facility] PROGRESSon 03-28-2018 Protein mass conc HNO ID: [id number] Author: Kinsey Dumas MD Service: Hospital Medicine [...] MD Staff, Hospital Medicine March 28, 2018 [facility] MEDICINE [facility] UNIT PROGRESS NOTE NAME: Sarina [...] home, last A1c 9.3% in 08/2016 at [facility]. Repeat A1c on admission 6.0%. - SSI1 [...] aspirin; IPCs Dispo - continue care in [facility] SUBJECTIVE INTERVAL HPI: Mrs. Lovett feels okay [...] MD Family Medicine PGY2 March 28, 2018 [facility] XR CHEST 1V FRONTAL PORTon 0 03-28-2018 [...] bilateral alveolar infiltrates without appreciable interval change Mill Supervisor: PSCGrace Transcribe Date/Time: Mar 28 2018 10:55A Dictated by : EULALIO WILLIAM MD This examination was interpreted and the report reviewed and electronically signed by: EULALIO WILLIAM MD on Mar 28 2018 10:57AM EST [id number] N [facility] ALLIED HEALTHon 03-27-2018 ALLIED HEALTH HNO ID: [id number] Author: Shira (RtAmanda Ocasio Service: Radiology Author Type: Court Recorder Type: Allied Health Filed: 03/27/2018 6:29 PM [...] Not applicable SIGNED BY: RT Stanley March 27, 2018 6:29 PM [facility] Arterial Blood Gas (FOR WEST USE ONLY)on 03-27-2018 Base Excess NEG 10 Normal [facility] Comment on above: Result Comment: -3 t o 3 Performed By: #### A BGR ####[place] [phone] CO2 molar conc 16 mmol/L Low 22.0-28.0 [facility] Comment on above: Performed By: #### A BGR ####[place] [phone] Device Nasal Cannula Normal [facility] Comment on above: Performed By: #### A BGR ####[phone] Drawsite Left Radial + [facility] Comment on above: Performed By: #### A BGR ####[place] [phone] HCO3 molar conc (Bld) 15 mmol/L Low 22-26 [facility] Comment on above: Performed By: #### A BGR ####[place] [phone] O2 Administered 45.0 Normal [facility] Comment on above: Performed By: #### A BGR ####[place] [phone] Oxygen ppres (Bld) 68 mm Hg Low 80-100 [facility] Comment on above: Performed By: #### A BGR ####[place] [phone] Oxygen ppres (Bld) 92 % Normal 90-98 [facility] Comment on above: Performed By: #### A BGR ####[place] [phone] pCO2 33 mm Hg Low 35-48 [facility] Comment on above: Performed By: #### A BGR ####[place] [phone] pH (Bld) 7.29 [pH] Low 7.35-7.45 [facility] Comment on above: Performed By: #### A BGR ####[place] [phone] Basic Metabolic Panlon 03-27 Anion gap molar conc 17 mmol/L Normal 9-18 [facility] Comment on above: Performed By: #### P TT, NTBNP, HSTNT, CBCDIF, PT, CKCKMB, CMP #### [place] [address] Calcium mass conc 8.6 mg/dL Normal 8.5-10.5 [facility] Comment on above: Performed By: #### P TT, NTBNP, HSTNT, CBCDIF, PT, CKCKMB, CMP #### [place] [address] Chloride molar conc 104 mmol/L Normal 98-110 [facility] Comment on above: Performed By: #### P TT, NTBNP, HSTNT, CBCDIF, PT, CKCKMB, CMP #### [place] [phone] CO2 molar conc 15 mmol/L Low 23-32 [facility] Comment on above: Performed By: #### P TT, NTBNP, HSTNT, CBCDIF, PT, CKCKMB, CMP #### [place] [address] Creatinine mass conc 1.79 mg/dL High 0.70-1.40 [facility] Comment on above: Performed By: #### P TT, NTBNP, HSTNT, CBCDIF, PT, CKCKMB, CMP #### [place] [address] eGFR- Amer. 34 Low >60 [facility] Comment on above: Performed By: #### P TT, NTBNP, HSTNT, CBCDIF, PT, CKCKMB, CMP #### [place] [address] GFR/1.73 sq M predicted among non-blacks MDRD vol rate/area (S/P/Bld) 28 . Low >60 [facility] Comment on above: Performed By: #### P TT, NTBNP, HSTNT, CBCDIF, PT, CKCKMB, CMP #### [place] [address] Glucose mass conc 127 mg/dL High 65-100 [facility] Comment on above: Performed By: #### P TT, NTBNP, HSTNT, CBCDIF, PT, CKCKMB, CMP #### [place] [address] Potassium molar conc 5.6 mmol/L High 3.5-5.0 [facility] Comment on above: Result Comment: Revi ewed Performed By: #### P TT, NTBNP, HSTNT, CBCDIF, PT, CKCKMB, CMP #### [facility] [address] [place] [address] Sodium molar conc 136 mmol/L Normal 132-148 [facility] Comment on above: Performed By: #### P TT, NTBNP, HSTNT, CBCDIF, PT, CKCKMB, CMP #### [facility] [address] [place] [address] Urea nitrogen mass conc 37 mg/dL High 8-25 [facility] Comment on above: Performed By: #### P TT, NTBNP, HSTNT, CBCDIF, PT, CKCKMB, CMP #### [place] [phone] [place] [phone] CASE MGT INIT CARROLLon 2018 CASE MGT INIT CARROLL HNO ID: [id number] Author: Yoon CabreraRn) ZAK Marshall Service: Case Management Author Type: Registered [...] To improve my functional status Health [place] [employer] [facility] [place] Issues Impacting Discharge Plan: Chronic DM,HTN Last Admission Date: Previous admit date: 02/27/2015 Is this Within the Past 30 days? 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 N/A SOCIAL: Living Arrangement: Home Lives With: Spouse Financial Resources: Retired Primary Contact: Extended Emergency Contact Information Primary Emergency Contact: Daniel Lovett Address: [address] [place] Relation: Spouse Supportive: Yes Other Important [...] 0 I feel financially burdened by my [id number] expenses for my prescription medication: Disagree completely [...] female admitted for CP, pt taken to center medical and lab director, cardiology following. Met with pt at bedside, pt states she is independent , drives and lives with her , B/B is on the same floor, pt denies any DME, plan for home with no skilled needs. SIGNATURE: Yoon Marshall RN,BSN PATIENT NAME: Sarina Lovett DATE: March 27, 2018 TIME: 12:06 PM PAGER/CONTACT #: [phone] Normal [facility] CBC and Differentialon 03-27 Abs Baso <0.03 Normal <0.11 [facility] Comment on above: Performed By: #### P TT, NTBNP, HSTNT, CBCDIF, PT, CKCKMB, CMP #### [place] [address] Abs Grant 0.60 k/uL Normal <0.87 [facility] Comment on above: Performed By: #### P TT, NTBNP, HSTNT, CBCDIF, PT, CKCKMB, CMP #### [place] [address] Abs Neut 9.61 k/uL High 1.45-7.50 [facility] Comment on above: Performed By: #### P TT, NTBNP, HSTNT, CBCDIF, PT, CKCKMB, CMP #### [place] [address] Basophils/100 WBC (Bld) 0.2 % Normal [facility] Comment on above: Performed By: #### P TT, NTBNP, HSTNT, CBCDIF, PT, CKCKMB, CMP #### [place] [address] DTYPE Auto Diff Normal [facility] Comment on above: Performed By: #### P TT, NTBNP, HSTNT, CBCDIF, PT, CKCKMB, CMP #### [place] [address] Eosinophils #/vol (Bld) 0.05 10*3/uL Normal <0.46 [facility] Comment on above: Performed By: #### P TT, NTBNP, HSTNT, CBCDIF, PT, CKCKMB, CMP #### [address] Eosinophils/100 WBC (Bld) 0.5 % Normal [facility] Comment on above: Performed By: #### P TT, NTBNP, HSTNT, CBCDIF, PT, CKCKMB, CMP #### [place] [address] Erythrocyte distribution width Ratio (RBC) 13.8 % Normal 11.5-15.0 [facility] Comment on above: Performed By: #### P TT, NTBNP, HSTNT, CBCDIF, PT, CKCKMB, CMP #### [place] [address] Hematocrit Volume Fraction (Bld) 29.2 % Low 36.0-46.0 [facility] Comment on above: Performed By: #### P TT, NTBNP, HSTNT, CBCDIF, PT, CKCKMB, CMP #### [place] [address] Hemoglobin mass conc (Bld) 9.3 g/dL Low 11.5-15.5 [facility] Comment on above: Performed By: #### P TT, NTBNP, HSTNT, CBCDIF, PT, CKCKMB, CMP #### [place] [address] Lymphocytes #/vol (Bld) 0.69 10*3/uL Low 1.00-4.00 [facility] Comment on above: Performed By: #### P TT, NTBNP, HSTNT, CBCDIF, PT, CKCKMB, CMP #### [place] [address] Lymphocytes/100 WBC (Bld) 6.3 % Normal [facility] Comment on above: Performed By: #### P TT, NTBNP, HSTNT, CBCDIF, PT, CKCKMB, CMP #### [place] [address] MCH Entitic mass (RBC) 28.6 pG Normal 26.0-34.0 [facility] Comment on above: Performed By: #### P TT, NTBNP, HSTNT, CBCDIF, PT, CKCKMB, CMP #### [place] [address] MCHC mass conc (RBC) 31.8 g/dL Normal 30.5-36.0 [facility] Comment on above: Performed By: #### P TT, NTBNP, HSTNT, CBCDIF, PT, CKCKMB, CMP #### [place] [phone] MCV Entitic volume (RBC) 89.8 fL Normal 80.0-100.0 [facility] Comment on above: Performed By: #### P TT, NTBNP, HSTNT, CBCDIF, PT, CKCKMB, CMP #### [address] Monocytes/100 WBC (Bld) 5.5 % Normal [facility] Comment on above: Performed By: #### P TT, NTBNP, HSTNT, CBCDIF, PT, CKCKMB, CMP #### [place] [phone] Neutrophils/100 WBC (Bld) 87.5 % Normal [facility] Comment on above: Performed By: #### P TT, NTBNP, HSTNT, CBCDIF, PT, CKCKMB, CMP #### [place] [phone] Platelet mean volume Entitic volume (Bld) 10.4 fL Normal 9.0-12.7 [facility] Comment on above: Performed By: #### P TT, NTBNP, HSTNT, CBCDIF, PT, CKCKMB, CMP #### [place] [phone] Platelets #/vol (Bld) 141 10*3/uL Low 150-400 [facility] Comment on above: Performed By: #### P TT, NTBNP, HSTNT, CBCDIF, PT, CKCKMB, CMP #### [place] [phone] RBC #/vol (Bld) 3.25 10*6/uL Low 3.90-5.20 [facility] Comment on above: Performed By: #### P TT, NTBNP, HSTNT, CBCDIF, PT, CKCKMB, CMP #### [place] [phone] WBC #/vol (Bld) 10.97 10*3/uL Normal 3.70-11.00 [facility] Comment on above: Performed By: #### P TT, NTBNP, HSTNT, CBCDIF, PT, CKCKMB, CMP #### [phone] CK, Total and CKMBon 019 CK enzyme act/vol 1014 U/L High 30-220 [facility] Comment on above: Performed By: #### P TT, NTBNP, HSTNT, CBCDIF, PT, CKCKMB, CMP #### [phone] CK MB % 11.4 % High 0.0-4.0 [facility] Comment on above: Result Comment: Call ed to and read back by: ZAK [facility] 03/27/18 0525 ROBB Performed By: #### P TT, NTBNP, HSTNT, CBCDIF, PT, CKCKMB, CMP #### [id number] MB 115.9 ng/mL High 0.0-8.8 [facility] Comment on above: Performed By: #### P TT, NTBNP, HSTNT, CBCDIF, PT, CKCKMB, CMP #### [place] [phone] CONSULT PROGon 03-27-2018 Protein mass conc HNO ID: [id number] Author: Marito Real Service: Hypertension AND Nephrology [...] mass index is 28 kg/m?. Date 03/27/18 0700 - 03/28/18 0659 Shift [id number] 4106-5429 2676-8129 24 Hour Total I N T A K E PO 240 240 Shift Total 240 240 O U T P U T Shift Total Weight (kg) 81.1 81.1 81.1 81.1 Intake/Output 03/24/18 0700 - 03/25/18 0659 03/25/18 0700 - 03/26/18 0659 03/26/18 0700 - 03/27/18 0659 03/27/18 0700 - 03/28/18 0659 Intake (ml) 200 1755 [...] DATE: March 27, 2018 TIME: 3:31 PM [facility] Protein mass conc HNO ID: [id number] Author: Alicia Miller Service: Psychiatry Author Type: [...] her former therapist Dr. Melody Montero on [facility] in [place]. Supportive therapy provided. She declines phone call to her for collateral info. Will sign off, please reconsult psychiatry should further acute psychiatric issues arise during this admission. SUBJECTIVE: Ms. Lovett is sitting propped up in bed, watching the Calles is Right. Reviews most recent stressors, including ongoing (chronic) strained relationship with 3 of her 5 children. Maintains good relationship with son in [place] and daughter in [place], [place]. Struggled more with mood since closest sister 1.5 years ago (noncompliant with meds). Says taking Sertraline (recently increased to 150 mg po daily) and Welbutrin XL for last 5-10 years. Tolerating medications without issues. Saw Dr. Melody Maurice in [place] for a couple of years and stopped [...] 05:35 PM TBILI 0.2 03/24/2018 05:35 PM Normal [facility] Ferritinon 03-27-2018 Ferritin mass conc 116.8 ng/mL Normal 14.7-205.1 [facility] Comment on above: Performed By: #### P TT, NTBNP, HSTNT, CBCDIF, PT, CKCKMB, CMP #### [place] [phone] Iron and TIBCon 03-27-2018 Iron mass conc 40 ug/dL Normal 35-150 [facility] Comment on above: Performed By: #### P TT, NTBNP, HSTNT, CBCDIF, PT, CKCKMB, CMP #### [place] [address] TIBC 279 ug/dL Normal 250-450 [facility] Comment on above: Performed By: #### P TT, NTBNP, HSTNT, CBCDIF, PT, CKCKMB, CMP #### [place] [phone] Transferrin Saturatn 14 % Low 20-55 [facility] Comment on above: Performed By: #### P TT, NTBNP, HSTNT, CBCDIF, PT, CKCKMB, CMP #### [place] [address] Magnesiumon 03-27-2018 Magnesium mass conc 2.0 mg/dL Normal 1.7-2.6 [facility] Comment on above: Performed By: #### P TT, NTBNP, HSTNT, CBCDIF, PT, CKCKMB, CMP #### [facility] [address] [place] [address] NT Pro BNPon 03-27-2018 Protein mass conc 64654 pg/mL High <125 [facility] Comment on above: Performed By: #### N TBNP ####[facility] [place], [place] [phone] NURSING PROGon 03-27-2018 Protein mass conc HNO ID: [id number] Author: Patricia (Rn) ZAK Caceres Service: Nursing Author Type: Registered Nurse Type: Nursing Progress Note Filed: 03/27/2018 6:11 AM Note Text: Nursing Progress Note Patient Name: Sarina Lovett Patient Location: [place] [address]/[place] [address]* Daily Note: Nursing note for evening shift This note was completed by: Patricia Caceres, RN [id number] report received and pt care assumed. Pt was admitted to [facility] on 03/24. Dx NSTEMI and HTN urgency and was placed on a NTG drip. PBNR >9000 and pt was plced on a heparin drip which is now off. Pt was taken to the laborer brush clearing today with Dr. Haddad and had PCI [...] meds given/ ativan .25mg and Lasix iv [facility] PLAN OF CAREon 03-27-2018 PLAN OF CARE HNO ID: [id number] Author: Ariela Martinez Service: Hospital Medicine Author [...] staff , Department of Hospital Medicine Clinical Applied Exercise Physiologistmine engineering manager [facility]3] P:[id number] T:[phone] 5PM-8AM: Please contact me directly for questions related to patient care [facility] PROGRESSon 03-27-2018 Protein mass conc HNO ID: [id number] Author: Joy Browne Service: Cardiovascular Disease Author Type: Physician Type: Progress Notes Filed: 03/27/2018 10:34 AM Note Text: Doing well No further chest pain Elevated ck due to 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 Clinically stable Continue present treatment k is elevated Will recheck, could be hemolysis Normal [facility] Protein mass conc HNO ID: [id number] Author: Mame Bowers Service: Hospital Medicine Author Type: Physician Type: Progress Notes Filed: 03/27/2018 1:51 PM Note Text: HOSPITAL MEDICINE [facility] UNIT PROGRESS NOTE NAME: Sarina [...] home, last A1c 9.3% in 08/2016 at [facility]. Repeat A1c on admission 6.0%. - SSI1 [...] aspirin; IPCs Dispo - continue care in [facility] SUBJECTIVE INTERVAL HPI: Ms. Lovett feels well [...] MD Staff, Hospital Medicine March 27, 2018 [facility] PT EDon 03-27-2018 PT ED HNO ID: [id number] Author: Renetta CabreraRn) ZAK Ball Service: Cardiac Rehab Author Type: Registered Nurse Type: Patient Education Filed: 03/27/2018 2:57 PM Note Text: CARDIAC REHABILITATION PATIENT EDUCATION PROGRESS NOTE Name: Sarina Lovett Date of Service: 03/27/2018 Time of Service: 2:53 PM ASSESSMENT: Risk Factors Identified: Diabetic: Insulin Dependent Hyperlipidemia Hypertension Smoker: # of packs per day: 1. Total Years of Smokin. 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 Cardiac Rehab Programs Outpatient Diet/Nutrition Class Invitation Signature: Renetta ball RN Pager: [phone] Date: March 27, 2018 Time: 2:53 PM Normal [facility] Phosphoruson 03-27-2018 Phosphate mass conc 4.7 mg/dL High 2.5-4.5 [facility] Comment on above: Performed By: #### P TT, NTBNP, HSTNT, CBCDIF, PT, CKCKMB, CMP #### [place] [address] Potassiumon 03-27-2018 Potassium molar conc 5.0 mmol/L Normal 3.5-5.0 [facility] Comment on above: Performed By: #### K 1 ####[place] [id number] Potassium molar conc 5.8 mmol/L High 3.5-5.0 [facility] Comment on above: Performed By: #### P TT, NTBNP, HSTNT, CBCDIF, PT, CKCKMB, CMP #### [place] [phone] Protein/Creatinine Ratioon 0 03-27-2018 Creatinine,Urine,Ran 33.9 mg/dL Normal 20-300 [facility] Comment on above: Performed By: #### P TT, NTBNP, HSTNT, CBCDIF, PT, CKCKMB, CMP #### [place] [phone] Protein mass conc (U) 6 mg/dL Normal 0-20 [facility] Comment on above: Performed By: #### P TT, NTBNP, HSTNT, CBCDIF, PT, CKCKMB, CMP #### [address] [place] [address] Protein/Creatinine Ratio 0.2 High <0.2 [facility] Comment on above: Performed By: #### P TT, NTBNP, HSTNT, CBCDIF, PT, CKCKMB, CMP #### [place] [address] THERAPY NTon 03-27-2018 THERAPY NT HNO ID: [id number] Author: Silvana (Bell Cleaner) LALO Black Service: Respiratory Therapy Author Type: Respiratory Therapist Type: Therapy (PT/OT/Speech/Resp) Filed: 03/27/2018 7:18 PM Note Text: ABG drawn from left radial, Laci test yes; pressure held, bleeding stopped. Normal [facility] Troponin Ton 03-27-2018 Troponin T.cardiac mass conc 2.160 ng/mL High 0.000-0.029 [facility] Comment on above: Result Comment: Call ed to and read back by: [facility] 03/27/18 0525 ROBB Performed By: #### P TT, NTBNP, HSTNT, CBCDIF, PT, CKCKMB, CMP #### [place] [address] XR CHEST 1V FRONTALon 2018 XR CHEST [...] No pneumothorax. Cardiomediastinal silhouette: Stable cardiomediastinal silhouette. Mill Supervisor: JENNIFER Transcribe Date/Time: Mar 27 2018 6:50P Dictated by : JOHAN MUNOZ MD This examination was interpreted and the report reviewed and electronically signed by: JOHAN MUNOZ MD on Mar 27 2018 6:52PM EST [id number] [facility] XR CHEST 1V FRONTAL * * [...] atelectasis right lung base 2. Cardiac megaly Mill Supervisor: PSCB Transcribe Date/Time: Mar 27 2018 5:27A Dictated by : YADIRA FUNEZ MD This examination was interpreted and the report reviewed and electronically signed by: YADIRA FUNEZ MD on Mar 27 2018 5:37AM EST [id number] [facility] Basic Metabolic Panlon 03-26 Anion gap molar conc 12 mmol/L Normal 9-18 [facility] Comment on above: Performed By: #### P TT, NTBNP, HSTNT, CBCDIF, PT, CKCKMB, CMP #### [facility] [address] [place] [address] Calcium mass conc 9.0 mg/dL Normal 8.5-10.5 [facility] Comment on above: Performed By: #### P TT, NTBNP, HSTNT, CBCDIF, PT, CKCKMB, CMP #### [place] [address] Chloride molar conc 104 mmol/L Normal 98-110 [facility] Comment on above: Performed By: #### P TT, NTBNP, HSTNT, CBCDIF, PT, CKCKMB, CMP #### [phone] CO2 molar conc 19 mmol/L Low 23-32 [facility] Comment on above: Performed By: #### P TT, NTBNP, HSTNT, CBCDIF, PT, CKCKMB, CMP #### [place] [phone] Creatinine mass conc 1.63 mg/dL High 0.70-1.40 [facility] Comment on above: Performed By: #### P TT, NTBNP, HSTNT, CBCDIF, PT, CKCKMB, CMP #### [place] [id number] eGFR- Amer. 38 Low >60 [facility] Comment on above: Performed By: #### P TT, NTBNP, HSTNT, CBCDIF, PT, CKCKMB, CMP #### [place] [id number] GFR/1.73 sq M predicted among non-blacks MDRD vol rate/area (S/P/Bld) 31 . Low >60 [facility] Comment on above: Performed By: #### P TT, NTBNP, HSTNT, CBCDIF, PT, CKCKMB, CMP #### [place] [phone] Glucose mass conc 113 mg/dL High 65-100 [facility] Comment on above: Performed By: #### P TT, NTBNP, HSTNT, CBCDIF, PT, CKCKMB, CMP #### [place] [phone] Potassium molar conc 4.6 mmol/L Normal 3.5-5.0 [facility] Comment on above: Performed By: #### P TT, NTBNP, HSTNT, CBCDIF, PT, CKCKMB, CMP #### [place] [phone] Sodium molar conc 135 mmol/L Normal 132-148 [facility] Comment on above: Performed By: #### P TT, NTBNP, HSTNT, CBCDIF, PT, CKCKMB, CMP #### [place] [address] Urea nitrogen mass conc 32 mg/dL High 8-25 [facility] Comment on above: Performed By: #### P TT, NTBNP, HSTNT, CBCDIF, PT, CKCKMB, CMP #### [place] [address] CBCon 03-26-2018 Erythrocyte distribution width Ratio (RBC) 13.5 % Normal 11.5-15.0 [facility] Comment on above: Performed By: #### P TT, NTBNP, HSTNT, CBCDIF, PT, CKCKMB, CMP #### [place] [address] Hematocrit Volume Fraction (Bld) 28.1 % Low 36.0-46.0 [facility] Comment on above: Performed By: #### P TT, NTBNP, HSTNT, CBCDIF, PT, CKCKMB, CMP #### [place] [address] Hemoglobin mass conc (Bld) 9.3 g/dL Low 11.5-15.5 [facility] Comment on above: Performed By: #### P TT, NTBNP, HSTNT, CBCDIF, PT, CKCKMB, CMP #### [place] [address] MCH Entitic mass (RBC) 28.9 pG Normal 26.0-34.0 [facility] Comment on above: Performed By: #### P TT, NTBNP, HSTNT, CBCDIF, PT, CKCKMB, CMP #### [place] [address] MCHC mass conc (RBC) 33.1 g/dL Normal 30.5-36.0 [facility] Comment on above: Performed By: #### P TT, NTBNP, HSTNT, CBCDIF, PT, CKCKMB, CMP #### [place] [phone] MCV Entitic volume (RBC) 87.3 fL Normal 80.0-100.0 [facility] Comment on above: Performed By: #### P TT, NTBNP, HSTNT, CBCDIF, PT, CKCKMB, CMP #### [place] [phone] Platelet mean volume Entitic volume (Bld) 10.1 fL Normal 9.0-12.7 [facility] Comment on above: Performed By: #### P TT, NTBNP, HSTNT, CBCDIF, PT, CKCKMB, CMP #### [place] [phone] Platelets #/vol (Bld) 145 10*3/uL Low 150-400 [facility] Comment on above: Performed By: #### P TT, NTBNP, HSTNT, CBCDIF, PT, CKCKMB, CMP #### [place] [phone] RBC #/vol (Bld) 3.22 10*6/uL Low 3.90-5.20 [facility] Comment on above: Performed By: #### P TT, NTBNP, HSTNT, CBCDIF, PT, CKCKMB, CMP #### [place] [phone] WBC #/vol (Bld) 4.28 10*3/uL Normal 3.70-11.00 [facility] Comment on above: Performed By: #### P TT, NTBNP, HSTNT, CBCDIF, PT, CKCKMB, CMP #### [place] [id number] CONSULTon 03-26-2018 CONSULT HNO ID: [id number] Author: Marito Real Service: Hypertension AND Nephrology Author Type: Physician Type: Consults Filed: 04/18/2018 3:55 PM Note Text: [facility] - Consultation SARINA LOVETT : 1945 AGE: 73 SEX: F [facility]: [phone] [facility]: [id number] ATTENDING PHYSICIAN: Larisa Dougherty M.D. DATE OF [...] kidney disease and has never seen a worm packer before. Her creatinine is 1.6 today, and [...] ferrous sulfate 325 mg b.i.d., vitamin D 55355 units weekly, Plavix 75 mg daily, Coreg [...] is retired. 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 She smoked for 50 years and then [...] questions or concerns. Marito Real M.D. Nephrology SB:[id number] [facility] CONSULT HNO ID: [id number] Author: Marito Real Service: Hypertension AND Nephrology Author Type: Physician Type: Consults Filed: 03/26/2018 10:17 AM Note Text: Dictation number: [id number] JULIETA on CKD 3 Check spot protein/Cr [...] plans to quit smoking after d/c Normal [facility] Hemoglobin A1con 03-26-2018 Hemoglobin A1c/Hemoglobin.total mass fraction (Bld) 6.0 % High 4.3-5.6 [facility] Comment on above: Result Comment: Amer ican Diabetes Association guidelines indicate that patients with HgbA1c in the range 5.7-6.4% are at increased risk for development of diabetes, and intervention by lifestyle modification may be beneficial. HgbA1c greater or equal to 6.5% is considered diagnostic of diabetes. Performed By: #### P TT, NTBNP, HSTNT, CBCDIF, PT, CKCKMB, CMP #### [facility] [address] [place] [address] Hemoglobin A1c/Hemoglobin.total mass fraction (Bld) 126 mg/dL Normal [facility] Comment on above: Result Comment: eAG: (Estimated average glucose) is a calculated value from HgbA1c and is sales representative facility services of the average blood glucose level in the last 2-3 month period. Performed By: #### P TT, NTBNP, HSTNT, CBCDIF, PT, CKCKMB, CMP #### [place] [phone] Lipid Panel, [place] 019 Cholesterol in HDL mass conc 33 mg/dL Low >39 [facility] Comment on above: Result Comment: 40-5 9 mg/dL, Acceptable >59 mg/dL, High: Negative risk factor for coronary heart disease <40 mg/dL, Low: Positive risk factor for coronary heart disease Performed By: #### P TT, NTBNP, HSTNT, CBCDIF, PT, CKCKMB, CMP #### [place] [phone] Cholesterol in LDL mass conc 221 mg/dL High <100 [facility] Comment on above: Result Comment: <100 mg/dL, Optimal 100-129 mg/dL, Near optimal/above optimal 130-159 mg/dL, Borderline high 160-189 mg/dL, High >189 mg/dL, Very high Secondary prevention optimal LDL Cholesterol levels are recommended to be < 70 mg/dL Performed By: #### P TT, NTBNP, HSTNT, CBCDIF, PT, CKCKMB, CMP #### [place] [phone] Cholesterol mass conc 314 mg/dL High <200 [facility] Comment on above: Result Comment: <200 mg/dL, Desirable 200-239 mg/dL, Borderline high >239 mg/dL, High Performed By: #### P TT, NTBNP, HSTNT, CBCDIF, PT, CKCKMB, CMP #### [place] [phone] LDL:HDL Ratio 6.70 High <2.54 [facility] Comment on above: Result Comment: Refe rence: 1. National Cholesterol Education Program ATP III Guideline At-A-Glance Quick Desk Reference: National Heart, Lung, and Blood [place]. National Institutes of Health. 2001: NIH Publication No. 01-3305. 2. An International Atherosclerosis Society position paper: global recommendations for the management of dyslipidemia: executive summary, Atherosclerosis. 2014: 232(2):410-413. Performed By: #### P TT, NTBNP, HSTNT, CBCDIF, PT, CKCKMB, CMP #### [place] [address] Non HDL Cholesterol 281 mg/dL High <130 [facility] Comment on above: Result Comment: <130 mg/dL, Optimal 130-159 mg/dL, Near optimal/above optimal 160-189 mg/dL, Borderline high 190-219 mg/dL, High >219 mg/dL, Very high Secondary prevention optimal non HDL Cholesterol levels are recommended to be < 100 mg/dL Performed By: #### P TT, NTBNP, HSTNT, CBCDIF, PT, CKCKMB, CMP #### [place] [address] TC:HDL Ratio 9.52 High <5.10 [facility] Comment on above: Performed By: #### P TT, NTBNP, HSTNT, CBCDIF, PT, CKCKMB, CMP #### [place] [address] Triglyceride mass conc 301 mg/dL High <150 [facility] Comment on above: Result Comment: <150 mg/dL, Normal 150-199 mg/dL, Borderline high 200-499 mg/dL, High >499 mg/dL, Very high Performed By: #### P TT, NTBNP, HSTNT, CBCDIF, PT, CKCKMB, CMP #### [place] [address] VLDL Cholesterol 60 mg/dL High <30 [facility] Comment on above: Performed By: #### P TT, NTBNP, HSTNT, CBCDIF, PT, CKCKMB, CMP #### [place] [address] NURSING PROGon 03-26-2018 Protein mass conc HNO ID: [id number] Author: Shelley CabreraRn) ZAK Aponte Service: (none) Author Type: Registered Nurse Type: Nursing Progress Note Filed: 03/26/2018 10:24 PM Note Text: Nursing Progress Note Patient Name: Sarina Lovett Patient Location: [place] [address] [address]* Daily Note: 1900: Report received from previous shift RN 2000: Assessment complete, see flow sheets for details. Pt AANDO x3, denies pain, VSS. 2229: Report given to oncoming RN This note was completed by: Shelley Aponte RN [facility] Protein mass conc HNO ID: [id number] Author: Geeta (Rn) ZAK Woods Service: (none) Author Type: Registered Nurse Type: Nursing Progress Note Filed: 03/26/2018 7:46 PM Note Text: Nursing Progress Note Patient Name: Sarina Lovett Patient Location: [place] [address] * Daily Note: 0730 Bedside report received from [...] as noted. 1215 Pt off unit to center medical and lab director. 1424 Pt back to [place] unit. 1430 pt diaphoretic and c/o 3/[address] Tejada called to bedside. Site check complete; patient c/o numbness and tingling in right hand fingers and thumb. 1445 Site check complete; patient c/o numbness and tingling in right hand fingers and thumb. 1450 Dr. Tejada at bedside. 1453 Pt continues to complain of crushing chest pain, 07/07. Nitroglycerin sublingual given per APR per Dr. Tejada. 1455 Pt c/o 10/07. Dr. Haddad at bedside. 1500 Site check complete; patient c/o numbness and tingling in right hand fingers and thumb. 1508 Compazine PIV given per APR 1511 500cc bolus started per APR. 1515 Site check complete; patient c/o numbness and tingling in right hand fingers and thumb. 1518 Pt c/o 09/06 crushing chest pain; morphine PIV given per [...] numbness and tingling. 1900 US at bedside. 194 Bedside report given to oncoming nurse. This note was completed by: Geeta Woods RN [facility] OPERATIVE NOon 03-26-2018 OPERATIVE NO HNO ID: [id number] Author: Joy Browne Service: Cardiovascular Disease Author Type: Physician Type: Operative Report Filed: 03/26/2018 2:21 PM Note Text: BUILDING ATTENDANT PROCEDURE REPORT SERVICE DATE: 03/26/2018 SERVICE TIME: INFECTIOUS DISEASE TECHNICIAN: Joy Browne MD ATTENDING: Larisa Dougherty PRIMARY CARE PHYSICIAN: Sacha Ford MD REFERRING PROVIDER: MONGOLIAN STUDY OF HEALTH and AGING SCALE:2=Well CARDIOVASCULAR INSTABILITY:No PRE-PROCEDURE DIAGNOSIS: 1. Acute Coronary Syndrome, more than 24 hours 2. Angina, Unstable POST PROCEDURE DIAGNOSIS: 1. 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 Successful PCI of SVG to RCA [...] The patient was taken to the cardiac center medical and lab director where the entry site was prepped and [...] Dual Antiplatelet Therapy (DAPT) for DAVID Stent assisted. SIGNATURE: Joy Browne MD PATIENT NAME: Sarina Lovett DATE: March 26, 2018 TIME: 2:15 PM [facility] PLAN OF CAREon 03-26-2018 PLAN OF CARE HNO ID: [id number] Author: Ariela Martinez Service: Hospital Medicine Author [...] cardiac enzymes elevated - discussed with intervention senior solutions consultant - this is related to intervention - no concern for reinfarction Update: CXR with worsening pulmonary congestion Plan: - lasix 60mg given JULIETA - given CXR findings + increased o2 requirements this will also help reduced K level -Incentive spirometry for atelectasis Appreciate excellent nursing care Ariela Bautista MD, MSc Associate staff , Department of Hospital Medicine Clinical Applied Exercise Physiologistmine engineering manager [facility]3] P:[id number] T:[phone] 5PM-8AM: Please contact me directly for questions related to patient care [facility] PLAN OF CARE HNO ID: [id number] Author: Larisa Dougherty Service: Hospital Medicine Author Type: Physician Type: Plan of Care Filed: 03/26/2018 5:09 PM Note Text: Got cardene during cath, BP dropped to 110 when back in [place]/pale/nauseated Started NS bolus/infusion and she is much better BP meds reduced Larisa Dougherty MD [facility] PROGRESSon 03-26-2018 Protein mass conc HNO ID: [id number] Author: Larisa Dougherty Service: Hospital Medicine Author [...] Patient and RN SIGNATURE: Larisa Dougherty MD [facility] PTT,Anticoag Therapyon 03-26 aPTT Coag time (Bld) 53.5 s High 23.0-32.4 [facility] Comment on above: Result Comment: Unfr [...] laboratory APTT reagent in use throughout the [employer]. Performed By: #### P TT, NTBNP, HSTNT, CBCDIF, PT, CKCKMB, CMP #### [facility] [address] [place] [address] Type and Screenon 03-26-2018 ABO/RH(D) Positive Normal [facility] Comment on above: Performed By: #### P TT, NTBNP, HSTNT, CBCDIF, PT, CKCKMB, CMP #### [facility] [address] [place] [address] US KIDNEY/BLADDERon 03-26-19 19 US KIDNEY/BLADDER * * *Final Report* * * DATE OF EXAM: Mar 26 2018 7:28PM FVU 1055 - US KIDNEY/BLADDER / PROCEDURE [...] Dr. Real on 03/28/2018 at 1600 hours. Mill Supervisor: JENNIFER Transcribe Date/Time: Mar 28 2018 3:45P Dictated by : ELEONORA HIGGINS MD This examination was interpreted and the report reviewed and electronically signed by: ELEONORA HIGGINS MD on Mar 28 2018 4:24PM EST [id number] Normal [facility] ALLIED HEALTHon 03-25-2018 ALLIED HEALTH HNO ID: [id number] Author: Shira (RtAmanda Ocasio Service: Radiology Author Type: Court Recorder Type: Allied Health Filed: 03/25/2018 8:26 PM [...] RT Stanley March 25, 2018 8:26 PM [facility] Basic Metabolic Panlon 03-25 Anion gap molar conc 16 mmol/L Normal 9-18 [facility] Comment on above: Performed By: #### P TT, NTBNP, HSTNT, CBCDIF, PT, CKCKMB, CMP #### [place] [address] Calcium mass conc 8.7 mg/dL Normal 8.5-10.5 [facility] Comment on above: Result Comment: Revi ewed Performed By: #### P TT, NTBNP, HSTNT, CBCDIF, PT, CKCKMB, CMP #### [place] [address] Chloride molar conc 101 mmol/L Normal 98-110 [facility] Comment on above: Performed By: #### P TT, NTBNP, HSTNT, CBCDIF, PT, CKCKMB, CMP #### [place] [id number] CO2 molar conc 18 mmol/L Low 23-32 [facility] Comment on above: Performed By: #### P TT, NTBNP, HSTNT, CBCDIF, PT, CKCKMB, CMP #### [place] [id number] Creatinine mass conc 1.42 mg/dL High 0.70-1.40 [facility] Comment on above: Performed By: #### P TT, NTBNP, HSTNT, CBCDIF, PT, CKCKMB, CMP #### [place] [id number] eGFR- Amer. 44 Low >60 [facility] Comment on above: Performed By: #### P TT, NTBNP, HSTNT, CBCDIF, PT, CKCKMB, CMP #### [place] [phone] GFR/1.73 sq M predicted among non-blacks MDRD vol rate/area (S/P/Bld) 36 . Low >60 [facility] Comment on above: Performed By: #### P TT, NTBNP, HSTNT, CBCDIF, PT, CKCKMB, CMP #### [place] [id number] Glucose mass conc 125 mg/dL High 65-100 [facility] Comment on above: Performed By: #### P TT, NTBNP, HSTNT, CBCDIF, PT, CKCKMB, CMP #### [place] [phone] Potassium molar conc 5.0 mmol/L Normal 3.5-5.0 [facility] Comment on above: Performed By: #### P TT, NTBNP, HSTNT, CBCDIF, PT, CKCKMB, CMP #### [place] [phone] Sodium molar conc 135 mmol/L Normal 132-148 [facility] Comment on above: Performed By: #### P TT, NTBNP, HSTNT, CBCDIF, PT, CKCKMB, CMP #### [place] [phone] Urea nitrogen mass conc 30 mg/dL High 8-25 [facility] Comment on above: Performed By: #### P TT, NTBNP, HSTNT, CBCDIF, PT, CKCKMB, CMP #### [place] [phone] CBCon 03-25-2018 Erythrocyte distribution width Ratio (RBC) 13.6 % Normal 11.5-15.0 [facility] Comment on above: Performed By: #### P TT, NTBNP, HSTNT, CBCDIF, PT, CKCKMB, CMP #### [place] [phone] Hematocrit Volume Fraction (Bld) 29.8 % Low 36.0-46.0 [facility] Comment on above: Performed By: #### P TT, NTBNP, HSTNT, CBCDIF, PT, CKCKMB, CMP #### [place] [phone] Hemoglobin mass conc (Bld) 9.9 g/dL Low 11.5-15.5 [facility] Comment on above: Performed By: #### P TT, NTBNP, HSTNT, CBCDIF, PT, CKCKMB, CMP #### [place] [phone] MCH Entitic mass (RBC) 28.8 pG Normal 26.0-34.0 [facility] Comment on above: Performed By: #### P TT, NTBNP, HSTNT, CBCDIF, PT, CKCKMB, CMP #### [place] [phone] MCHC mass conc (RBC) 33.2 g/dL Normal 30.5-36.0 [facility] Comment on above: Performed By: #### P TT, NTBNP, HSTNT, CBCDIF, PT, CKCKMB, CMP #### [place] [phone] MCV Entitic volume (RBC) 86.6 fL Normal 80.0-100.0 [facility] Comment on above: Performed By: #### P TT, NTBNP, HSTNT, CBCDIF, PT, CKCKMB, CMP #### [place] [phone] Platelet mean volume Entitic volume (Bld) 10.2 fL Normal 9.0-12.7 [facility] Comment on above: Performed By: #### P TT, NTBNP, HSTNT, CBCDIF, PT, CKCKMB, CMP #### [address] Platelets #/vol (Bld) 157 10*3/uL Normal 150-400 [facility] Comment on above: Performed By: #### P TT, NTBNP, HSTNT, CBCDIF, PT, CKCKMB, CMP #### [place] [phone] RBC #/vol (Bld) 3.44 10*6/uL Low 3.90-5.20 [facility] Comment on above: Performed By: #### P TT, NTBNP, HSTNT, CBCDIF, PT, CKCKMB, CMP #### [place] [id number] WBC #/vol (Bld) 6.46 10*3/uL Normal 3.70-11.00 [facility] Comment on above: Performed By: #### P TT, NTBNP, HSTNT, CBCDIF, PT, CKCKMB, CMP #### [place] [phone] CK, Total and CKMBon 019 CK enzyme act/vol 29 U/L Low 30-220 [facility] Comment on above: Performed By: #### P TT, NTBNP, HSTNT, CBCDIF, PT, CKCKMB, CMP #### [phone] CK MB % CK MB % not reported with CK <100 U/L. Normal 0.0-4.0 [facility] Comment on above: Performed By: #### P TT, NTBNP, HSTNT, CBCDIF, PT, CKCKMB, CMP #### [place] [phone] MB 2.9 ng/mL Normal 0.0-8.8 [facility] Comment on above: Performed By: #### P TT, NTBNP, HSTNT, CBCDIF, PT, CKCKMB, CMP #### [address] CK enzyme act/vol 31 U/L Normal 30-220 [facility] Comment on above: Performed By: #### P TT, NTBNP, HSTNT, CBCDIF, PT, CKCKMB, CMP #### [place] [phone] CK MB % CK MB % not reported with CK <100 U/L. Normal 0.0-4.0 [facility] Comment on above: Performed By: #### P TT, NTBNP, HSTNT, CBCDIF, PT, CKCKMB, CMP #### [address] MB 3.1 ng/mL Normal 0.0-8.8 [facility] Comment on above: Performed By: #### P TT, NTBNP, HSTNT, CBCDIF, PT, CKCKMB, CMP #### [place] [phone] CK enzyme act/vol 30 U/L Normal 30-220 [facility] Comment on above: Performed By: #### P TT, NTBNP, HSTNT, CBCDIF, PT, CKCKMB, CMP #### [place] [phone] CK MB % CK MB % not reported with CK <100 U/L. Normal 0.0-4.0 [facility] Comment on above: Performed By: #### P TT, NTBNP, HSTNT, CBCDIF, PT, CKCKMB, CMP #### [place] [phone] MB 2.8 ng/mL Normal 0.0-8.8 [facility] Comment on above: Performed By: #### P TT, NTBNP, HSTNT, CBCDIF, PT, CKCKMB, CMP #### [place] [phone] CONSULTon 03-25-2018 CONSULT HNO ID: [id number] Author: Ken Edwards Service: Psychiatry Author Type: [...] Therapist: Previously followed by Melody Montero Current Electrical Superintendent: None Last Hospitalization: None Hx of Suicide Attempts: Never Previous Discontinued Psychiatric Med Trials: None PAST MEDICAL 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 - Aortic valve disorders - Cancer (HCC) - Coronary atherosclerosis of unspecified type of vessel, [place] or graft Coronary Atherosclerosis - Diabetes (HCC) [...] 25, 2018 TIME: 1:46 PM PAGER/CONTACT #: [facility] CONSULT HNO ID: [id number] Author: Joy Browne Service: Cardiovascular Medicine Author [...] RCA: No Stenosis, there is 99% in [place] after the graft SVG Graft 2 to [...] Coronary atherosclerosis of unspecified type of vessel, [place] or graft Coronary Atherosclerosis - Diabetes (HCC) [...] 65 20 98 % - - 03/24/18 2233 (!) 217/112 - - 78 22 99 [...] 23 96 % - - 03/24/182044 (!) 20954 - - 72 25 98 % - [...] - 71 11 - - - 03/24/18 190 190/65 - - 72 24 98 % [...] Labs 03/25/18 0936 03/25/18 0616 03/25/18 0615 03/24/18235403/24/18205003/24/181734 WBC -- -- 6.46 -- -- 8.85 [...] 113 TBILI 0.2 Cardiac Enzymes Recent Labs 03/25/186 03/24/18235403/24/18205003/24/18 173 CK 31 30 -- 29* CKMB 3.1 [...] in this patient's care. SIGNATURE: Deanna Yoo APRN.[facility] cardiology DATE: March 25, 2018 TIME: 10:21 AM Normal [facility] Magnesiumon 03-25-2018 Magnesium mass conc 1.7 mg/dL Normal 1.7-2.6 [facility] Comment on above: Performed By: #### P TT, NTBNP, HSTNT, CBCDIF, PT, CKCKMB, CMP #### [place] [id number] [place] [address] NURSING PROGon 03-25-2018 Protein mass conc HNO ID: [id number] Author: Shira (Rn) ZAK Carrillo Service: Nursing Author Type: Registered Nurse Type: Nursing Progress Note Filed: 03/25/2018 6:11 PM Note Text: Nursing Progress Note Patient Name: Sarina Loevtt Patient Location: [id number]/[facility]- 024* Daily Note: 0700 Report received from [...] note was completed by: Shira Carrillo RN [facility] PROGRESSon 03-25-2018 Protein mass conc HNO ID: [id number] Author: Kinsey Dumas MD Service: Hospital Medicine [...] CC time 35 min Larisa Dougherty MD [facility] MEDICINE [facility] UNIT PROGRESS NOTE NAME: Sarina [...] home, last A1c 9.3% in 08/2016 at [facility]. - SSI1 - recheck A1c Hypomagnesemia 1.7 on admission. Continue to monitor. - replete PRN VTE Prophylaxis - on heparin drip Dispo - continue care in [facility] SUBJECTIVE INTERVAL HPI: Ms. Lovett feels better [...] Family Medicine PGY2 March 25, 2018 Normal [facility] PTT,Anticoag Therapyon 03-25 aPTT Coag time (Bld) 53.2 s High 23.0-32.4 [facility] Comment on above: Result Comment: Unfr [...] laboratory APTT reagent in use throughout the [employer] Performed By: #### P TT, NTBNP, HSTNT, CBCDIF, PT, CKCKMB, CMP #### [facility] [address] [place] [address] aPTT Coag time (Bld) 54.3 s High 23.0-32.4 [facility] Comment on above: Result Comment: Unfr [...] laboratory APTT reagent in use throughout the [employer] Performed By: #### P TT, NTBNP, HSTNT, CBCDIF, PT, CKCKMB, CMP #### [place] [phone] aPTT Coag time (Bld) 40.5 s High 23.0-32.4 [facility] Comment on above: Result Comment: Unfr [...] laboratory APTT reagent in use throughout the [employer] Performed By: #### P TT, NTBNP, HSTNT, CBCDIF, PT, CKCKMB, CMP #### [place] [phone] Troponin Ton 03-25-2018 Troponin T.cardiac mass conc 0.055 ng/mL High 0.000-0.029 [facility] Comment on above: Result Comment: Urge nt value previously called 03/25/18 1108 [facility] Performed By: #### P TT, NTBNP, HSTNT, CBCDIF, PT, CKCKMB, CMP #### [place] [phone] Troponin T.cardiac mass conc 0.038 ng/mL High 0.000-0.029 [facility] Comment on above: Result Comment: Urge nt value previously called on 03/25/18 at [facility] Performed By: #### P TT, NTBNP, HSTNT, CBCDIF, PT, CKCKMB, CMP #### [address] [address] Troponin T.cardiac mass conc 0.032 ng/mL High 0.000-0.029 [facility] Comment on above: Result Comment: Call ed to and read back by: Precious Alvarez RN [facility] 03/25/2018 0055 by Matthew Patricio. Performed By: #### P TT, NTBNP, HSTNT, CBCDIF, PT, CKCKMB, CMP #### [place] [id number] XR CHEST 1V FRONTAL PORTon 0 03-25-2018 [...] IMPRESSION: Cardiomegaly. No acute process is seen Mill Supervisor: JENNIFER Transcribe Date/Time: Mar 25 2018 8:26P Dictated by : CHASTITY SIMMONS MD This examination was interpreted and the report reviewed and electronically signed by: CHASTITY SIMMONS MD on Mar 25 2018 8:31PM EST [id number] Normal [facility] ALLIED HEALTHon 03-24-2018 ALLIED HEALTH HNO ID: [id number] Author: Amanda Morris (Rt) Service: Radiology Author Type: Court Recorder Type: Allied Health Filed: 03/24/2018 6:16 PM [...] PERIPHERAL IV DATA: Not applicable SIGNED BY: Melody Adhikari RT March 24, 2018 6:15 PM Normal [facility] APTTon 03-24-2018 aPTT Coag time (Bld) 26.0 s Normal 23.0-32.4 [facility] Comment on above: Result Comment: Unfr [...] laboratory APTT reagent in use throughout the [employer] Performed By: #### P TT, NTBNP, HSTNT, CBCDIF, PT, CKCKMB, CMP #### [place] [phone] CBC and Differentialon 03-24 Abs Baso 0.05 k/uL Normal <0.11 [facility] Comment on above: Performed By: #### P TT, NTBNP, HSTNT, CBCDIF, PT, CKCKMB, CMP #### [place] [phone] Abs Grant 0.47 k/uL Normal <0.87 [facility] Comment on above: Performed By: #### P TT, NTBNP, HSTNT, CBCDIF, PT, CKCKMB, CMP #### [place] [phone] Abs Neut 7.03 k/uL Normal 1.45-7.50 [facility] Comment on above: Performed By: #### P TT, NTBNP, HSTNT, CBCDIF, PT, CKCKMB, CMP #### [place] [phone] Basophils/100 WBC (Bld) 0.6 % Normal [facility] Comment on above: Performed By: #### P TT, NTBNP, HSTNT, CBCDIF, PT, CKCKMB, CMP #### [place] [address] DTYPE Auto Diff Normal [facility] Comment on above: Performed By: #### P TT, NTBNP, HSTNT, CBCDIF, PT, CKCKMB, CMP #### [place] [address] Eosinophils #/vol (Bld) 0.20 10*3/uL Normal <0.46 [facility] Comment on above: Performed By: #### P TT, NTBNP, HSTNT, CBCDIF, PT, CKCKMB, CMP #### [place] [address] Eosinophils/100 WBC (Bld) 2.3 % Normal [facility] Comment on above: Performed By: #### P TT, NTBNP, HSTNT, CBCDIF, PT, CKCKMB, CMP #### [place] [address] Erythrocyte distribution width Ratio (RBC) 13.4 % Normal 11.5-15.0 [facility] Comment on above: Performed By: #### P TT, NTBNP, HSTNT, CBCDIF, PT, CKCKMB, CMP #### [place] [address] Hematocrit Volume Fraction (Bld) 35.8 % Low 36.0-46.0 [facility] Comment on above: Performed By: #### P TT, NTBNP, HSTNT, CBCDIF, PT, CKCKMB, CMP #### [place] [address] Hemoglobin mass conc (Bld) 11.8 g/dL Normal 11.5-15.5 [facility] Comment on above: Performed By: #### P TT, NTBNP, HSTNT, CBCDIF, PT, CKCKMB, CMP #### [place] [address] Lymphocytes #/vol (Bld) 1.10 10*3/uL Normal 1.00-4.00 [facility] Comment on above: Performed By: #### P TT, NTBNP, HSTNT, CBCDIF, PT, CKCKMB, CMP #### [place] [address] Lymphocytes/100 WBC (Bld) 12.4 % Normal [facility] Comment on above: Performed By: #### P TT, NTBNP, HSTNT, CBCDIF, PT, CKCKMB, CMP #### [place] [address] MCH Entitic mass (RBC) 28.8 pG Normal 26.0-34.0 [facility] Comment on above: Performed By: #### P TT, NTBNP, HSTNT, CBCDIF, PT, CKCKMB, CMP #### [place] [address] MCHC mass conc (RBC) 33.0 g/dL Normal 30.5-36.0 [facility] Comment on above: Performed By: #### P TT, NTBNP, HSTNT, CBCDIF, PT, CKCKMB, CMP #### [place] [address] MCV Entitic volume (RBC) 87.3 fL Normal 80.0-100.0 [facility] Comment on above: Performed By: #### P TT, NTBNP, HSTNT, CBCDIF, PT, CKCKMB, CMP #### [place] [address] Monocytes/100 WBC (Bld) 5.3 % Normal [facility] Comment on above: Performed By: #### P TT, NTBNP, HSTNT, CBCDIF, PT, CKCKMB, CMP #### [place] [phone] Neutrophils/100 WBC (Bld) 79.4 % Normal [facility] Comment on above: Performed By: #### P TT, NTBNP, HSTNT, CBCDIF, PT, CKCKMB, CMP #### [place] [phone] Platelet mean volume Entitic volume (Bld) 10.1 fL Normal 9.0-12.7 [facility] Comment on above: Performed By: #### P TT, NTBNP, HSTNT, CBCDIF, PT, CKCKMB, CMP #### [place] [phone] Platelets #/vol (Bld) 210 10*3/uL Normal 150-400 [facility] Comment on above: Performed By: #### P TT, NTBNP, HSTNT, CBCDIF, PT, CKCKMB, CMP #### [place] [phone] RBC #/vol (Bld) 4.10 10*6/uL Normal 3.90-5.20 [facility] Comment on above: Performed By: #### P TT, NTBNP, HSTNT, CBCDIF, PT, CKCKMB, CMP #### [place] [phone] WBC #/vol (Bld) 8.85 10*3/uL Normal 3.70-11.00 [facility] Comment on above: Performed By: #### P TT, NTBNP, HSTNT, CBCDIF, PT, CKCKMB, CMP #### [place] [phone] CK, Total and CKMBon 019 CK enzyme act/vol 29 U/L Low 30-220 [facility] Comment on above: Performed By: #### P TT, NTBNP, HSTNT, CBCDIF, PT, CKCKMB, CMP #### [place] [phone] CK MB % CK MB % not reported with CK <100 U/L. Normal 0.0-4.0 [facility] Comment on above: Performed By: #### P TT, NTBNP, HSTNT, CBCDIF, PT, CKCKMB, CMP #### [place] [address] MB 2.4 ng/mL Normal 0.0-8.8 [facility] Comment on above: Performed By: #### P TT, NTBNP, HSTNT, CBCDIF, PT, CKCKMB, CMP #### [place] [address] Comp Metabolic Panelon 03-24 Albumin mass conc 4.6 g/dL Normal 3.5-5.0 [facility] Comment on above: Performed By: #### P TT, NTBNP, HSTNT, CBCDIF, PT, CKCKMB, CMP #### [place] [phone] ALP enzyme act/vol 113 U/L Normal 34-123 [facility] Comment on above: Performed By: #### P TT, NTBNP, HSTNT, CBCDIF, PT, CKCKMB, CMP #### [place] [address] ALT enzyme act/vol 7 U/L Normal 0-45 [facility] Comment on above: Performed By: #### P TT, NTBNP, HSTNT, CBCDIF, PT, CKCKMB, CMP #### [place] [address] Anion gap molar conc 14 mmol/L Normal 9-18 [facility] Comment on above: Performed By: #### P TT, NTBNP, HSTNT, CBCDIF, PT, CKCKMB, CMP #### [place] [address] AST enzyme act/vol 10 U/L Normal 7-40 [facility] Comment on above: Performed By: #### P TT, NTBNP, HSTNT, CBCDIF, PT, CKCKMB, CMP #### [place] [phone] Bilirubin mass conc 0.2 mg/dL Normal 0.2-1.3 [facility] Comment on above: Performed By: #### P TT, NTBNP, HSTNT, CBCDIF, PT, CKCKMB, CMP #### [place] [phone] Calcium mass conc 9.8 mg/dL Normal 8.5-10.5 [facility] Comment on above: Performed By: #### P TT, NTBNP, HSTNT, CBCDIF, PT, CKCKMB, CMP #### [place] [id number] Chloride molar conc 101 mmol/L Normal 98-110 [facility] Comment on above: Performed By: #### P TT, NTBNP, HSTNT, CBCDIF, PT, CKCKMB, CMP #### [place] [address] CO2 molar conc 22 mmol/L Low 23-32 [facility] Comment on above: Performed By: #### P TT, NTBNP, HSTNT, CBCDIF, PT, CKCKMB, CMP #### [place] [id number] Creatinine mass conc 1.50 mg/dL High 0.70-1.40 [facility] Comment on above: Performed By: #### P TT, NTBNP, HSTNT, CBCDIF, PT, CKCKMB, CMP #### [place] [address] eGFR- Amer. 41 Low >60 [facility] Comment on above: Performed By: #### P TT, NTBNP, HSTNT, CBCDIF, PT, CKCKMB, CMP #### [place] [phone] GFR/1.73 sq M predicted among non-blacks MDRD vol rate/area (S/P/Bld) 34 . Low >60 [facility] Comment on above: Performed By: #### P TT, NTBNP, HSTNT, CBCDIF, PT, CKCKMB, CMP #### [place] [phone] Glucose mass conc 243 mg/dL High 65-100 [facility] Comment on above: Performed By: #### P TT, NTBNP, HSTNT, CBCDIF, PT, CKCKMB, CMP #### [phone] Potassium molar conc 5.8 mmol/L High 3.5-5.0 [facility] Comment on above: Performed By: #### P TT, NTBNP, HSTNT, CBCDIF, PT, CKCKMB, CMP #### [place] [phone] Protein mass conc 8.0 g/dL Normal 6.0-8.4 [facility] Comment on above: Performed By: #### P TT, NTBNP, HSTNT, CBCDIF, PT, CKCKMB, CMP #### [place] [phone] Sodium molar conc 137 mmol/L Normal 132-148 [facility] Comment on above: Performed By: #### P TT, NTBNP, HSTNT, CBCDIF, PT, CKCKMB, CMP #### [phone] Urea nitrogen mass conc 34 mg/dL High 8-25 [facility] Comment on above: Performed By: #### P TT, NTBNP, HSTNT, CBCDIF, PT, CKCKMB, CMP #### [place] [phone] ED NOTEon 03-24-2018 ED NOTE HNO ID: [id number] Author: Monica (Rn) ZAK Thurman Service: Nursing Author Type: Registered Nurse Type: ED Notes Filed: 03/24/2018 6:53 PM Note Text: Repeat troponin drawn and sent to lab. [facility] ED NOTE HNO ID: [id number] Author: Monica CabreraRn) ZAK Thurman Service: Nursing Author Type: Registered Nurse Type: ED Notes Filed: 03/24/2018 6:46 PM Note Text: Report given to Vanessa LEWIS on [facility]. Bed is ready. Transport notified. [facility] ED NOTE HNO ID: [id number] Author: Ken CabreraRn) ZAK Mackenzie Service: (none) Author Type: Registered Nurse Type: ED Notes Filed: 03/24/2018 5:12 PM Note Text: Bed: 25-ED Expected date: Expected time: Means of arrival: Comments: CP/SOB [facility] ED PROV NOTEon 03-24-2018 Protein mass conc HNO ID: [id number] Author: Easton Ty MD Service: Emergency Medicine [...] crushing chest pain that has been constant, 6/10, no aggravating or alleviating factors. She reports associated dizziness. No SOB, diaphoresis, n/v, syncope, palpitations. Last echo was in 2016 and had EF 48%. Patient states that [...] Coronary atherosclerosis of unspecified type of vessel, [place] or graft Coronary Atherosclerosis - Diabetes (HCC) [...] Final Result IMPRESSION: Mild bilateral basal atelectasis. Mill Supervisor: JENNIFER Transcribe Date/Time: Mar 24 2018 6:48P [...] pectoris (HCC) Atherosclerosis of coronary artery of [place] heart with unstable angina pectoris, unspecified vessel [...] at this time and recommends admission to [facility] and treat as NSTEMI with heparin. Pt started on heparin in the ED. Concern for NSTEMI/ACS at this time. No concern for PE, aneurysm, or dissection at this time. Chest pain improved with nitroglycerin, currently 05/07. Case was discussed with [facility] hospitalist and patient will be admitted to [facility]. Pt remained stable during ED visit and stable at the time of admission. The patient was ADMITTED TO: [facility]. Condition at time of disposition: improved and stable SIGNATURE: KIRSTIN Banda) DENISHA Ruggiero 03/24/181914 Critical Care I spent a total of [...] discussed the plan of care with the PA/ANTHONY and agree with the findings documented. Critical care time excludes separately billed procedures. Easton Ty MD Attending Note I have personally performed a face to face assessment of the patient and have reviewed the PA/GARDEN CENTER MANAGER note. My olivera findings include: History is a 73-year-old female presents with chest pain that began earlier today. Her symptoms are concerning for unstable angina. Initial EKG was largely unchanged from her EKG. There was some concerning ST segment depressions in leads 1 and aVL. EKGs are shared with senior solutions consultant interventionalist, Dr Browne, who agrees symptoms and EKGs are concerning for unstable angina. He does not recommend emergent catheterization at this time. [facility]arin drip will be started. Nitroglycerin drip was also started. Assessment/Plan are admission to [facility]. Other additions or changes: None Signature: Easton Ty MD Date: 03/26/2018 Time: 8:25 AM Easton Ty MD 03/26/18 0834 [facility] HISTORY PHYSICALon HISTORY PHYSICAL HNO ID: [id number] Author: Chiara Latham Service: Hospital Medicine Author Type: Physician Type: HANDP Filed: 03/24/2018 9:38 PM Note Text: SERVICE DATE: 03/24/2018 SERVICE TIME: 9:30 PM DEPARTMENT OF HOSPITAL MEDICINE HISTORY AND PHYSICAL EXAM Primary Care Physician: Sacha Ford MD Primary Registered Dietetic Technician: Dr Doris Browne PATIENT NAME: Sarina Lovett PATIENT LOCATION: [place] [address] [address]* NIGHT AND WEEKEND COVERAGE: Tonight: [phone], please page me at [phone]. Patient will be assigned at 0730 to [...] WBC8.85 Hgb11.8 (slightly above BL of 9.8) [id number]. INR 1.0. Chem with hyperkalemia of 5.8, [...] Coronary atherosclerosis of unspecified type of vessel, [place] or graft Coronary Atherosclerosis - Diabetes (HCC) [...] Plan Assessment: SBP 240s/80s on arrival to [facility]. With Chest pain and ?JULIETA. PLAN: -On [...] Bolus) 0-30 mL/hr 0-3,000 Units/hr INTRAVENOUS CONTINUOUS 03/24/181756 -- 03/24/182044 vte non-pharmacologic prophylaxis - none indicated (tx,oh) 03/24/182044 activity - mobilize patient (tx,ok) VTE Prophylaxis: VTE prophylaxis appropriate SIGNATURE: Chiara Latham MD PATIENT NAME: Sarina Lovett DATE: March 24, 2018 TIME: 9:30 PM PAGER/CONTACT #: [phone] [facility] HOSPon 03-24-2018 HOSP Patient:Sarina Lovett MRN: Height:5' [...] date: Expected time: Means of arrival: Comments: CP/NITIN Ty MD, MD 03/26/2018 8:34 AM Signed ED Provider Note [...] crushing chest pain that has been constant, /, no aggravating or alleviating factors. She reports associated dizziness. No SOB, diaphoresis, n/v, syncope, palpitations. Last echo was in 2016 and had EF 48%. Patient states that [...] Coronary atherosclerosis of unspecified type of vessel, [place] or graft Coronary Atherosclerosis - Diabetes (HCC) [...] Final Result IMPRESSION: Mild bilateral basal atelectasis. Mill Supervisor: JENNIFER Transcribe Date/Time: Mar 24 2018 6:48P [...] pectoris (HCC) Atherosclerosis of coronary artery of [place] heart with unstable angina pectoris, unspecified vessel [...] at this time and recommends admission to [facility] and treat as NSTEMI with heparin. Pt started on heparin in the ED. Concern for NSTEMI/ACS at this time. No concern for PE, aneurysm, or dissection at this time. Chest pain improved with nitroglycerin, currently 05/07. Case was discussed with [facility] hospitalist and patient will be admitted to [facility]. Pt remained stable during ED visit and stable at the time of admission. The patient was ADMITTED TO: [facility]. Condition at time of disposition: improved and stable SIGNATURE: KIRSTIN Banda) DENISHA Ruggiero 03/24/181914 Critical Care I spent a total of [...] discussed the plan of care with the PA/GARDEN CENTER MANAGER and agree with the findings documented. Critical care time excludes separately billed procedures. Easton Ty MD Attending Note I have personally performed a face to face assessment of the patient and have reviewed the PA/GARDEN CENTER MANAGER note. My olivera findings include: History is a 73-year-old female presents with chest pain that began earlier today. Her symptoms are concerning for unstable angina. Initial EKG was largely unchanged from her EKG. There was some concerning ST segment depressions in leads 1 and aVL. EKGs are shared with senior solutions consultant interventionalist, Dr Browne, who agrees symptoms and EKGs are concerning for unstable angina. He does not recommend emergent catheterization at this time. [facility] Heparin drip will be started. Nitroglycerin drip was also started. Assessment/Plan are admission to [facility]. Other additions or changes: None Signature: Easton Ty MD Date: 03/26/2018 Time: 8:25 AM Easton Ty MD 03/26/18 0834 Previous Version RT Arturo, Tech 03/24/2018 6:16 PM Signed Radiology Service [...] Arturo March 24, 2018 6:15 PM Monica Thurman RN, RN 03/24/2018 6:46 PM Signed Report given to Vanessa LEWIS on [facility]. Bed is ready. Transport notified. Monica Thurman RN, RN 03/24/2018 6:53 PM Signed Repeat [...] Edited Assessment: SBP 240s/80s on arrival to [facility]. With Chest pain and ?JULIETA. PLAN: -On [...] Primary Care Physician: Sacha Ford MD Primary Registered Dietetic Technician: Dr Doris Browne PATIENT NAME: Sarina Lovett PATIENT LOCATION: [id number]/[facility]- 024* NIGHT AND WEEKEND COVERAGE: Tonight: [phone], please page me at [phone]. Patient will be assigned at 0730 to a primary team. SUBJECTIVE Chief Complaint: NSTEMI (non-ST elevated myocardial infarction) (HCC) HPI: This is a 73 yo F with PMH of PCI to the RCA in 2000, CABG in 2005, then in 2016 repeat PCI, s/p replacement in 2005, HTN, DLD, DM, presenting with mid-sternal chest pain that started around 3pm, constant, crushing , 10 currently 06/07, without aggravating or alleviating factors. She has [...] WBC8.85 Hgb11.8 (slightly above BL of 9.8) [id number]. INR 1.0. Chem with hyperkalemia of 5.8, [...] Coronary atherosclerosis of unspecified type of vessel, [place] or graft Coronary Atherosclerosis - Diabetes (HCC) [...] Primary Care Physician: Sacha Ford MD Primary Registered Dietetic Technician: Dr Doris Browne PATIENT NAME: Sarina Lovett PATIENT LOCATION: [place] [address] NIGHT AND WEEKEND COVERAGE: Tonight: [phone], please page me at [phone]. Patient will be assigned at 0730 to [...] WBC8.85 Hgb11.8 (slightly above BL of 9.8) Mmp161. INR 1.0. Chem with hyperkalemia of 5.8, [...] Coronary atherosclerosis of unspecified type of vessel, [place] or graft Coronary Atherosclerosis - Diabetes (HCC) [...] 1.0 Past 72 Hour Labs: Recent Labs 01/25/19 1735 GLUC 243* BUN 34* CREAT 1.50* [...] Plan Assessment: SBP 240s/80s on arrival to [facility]. With Chest pain and ?JULIETA. PLAN: -On [...] Bolus) 0-30 mL/hr 0-3,000 Units/hr INTRAVENOUS CONTINUOUS 03/24/181756 -- 03/24/182044 vte non-pharmacologic prophylaxis - none indicated (tx,ok) 03/24/182044 activity - mobilize patient ([address], [place]) VTE Prophylaxis: VTE prophylaxis appropriate SIGNATURE: Chiara Latham MD PATIENT NAME: Sarina Lovett DATE: March 24, 2018 TIME: 9:30 PM PAGER/CONTACT #: [phone] Previous Version Shira Carrillo RN, RN 03/25/2018 6:11 PM Addendum Nursing Progress Note Patient Name: Sarina Lovett Patient Location: [place] [address] [address]* Daily Note: 0700 Report received from off-going [...] echocardiographic exam for comparison. ? Heart cath/intervention 2016 CORONARY ANGIOGRAPHY: Left Main Trunk: No Stenosis ? Left Anterior Descending: ? Chronic Total Occlusion Location: Distal ? ? Left Circumflex: ? Less Than 40% Stenosis Location: Proximal Marginal: No Stenosis ? Right Coronary: ? Chronic Total Occlusion Location: Proximal ? SVG Graft 1 to the RCA: No Stenosis, there is 99% in [place] after the graft SVG Graft 2 to [...] Coronary atherosclerosis of unspecified type of vessel, [place] or graft Coronary Atherosclerosis - Diabetes (HCC) [...] 65 20 98 % - - 03/24/18 2233 (!) 217/112 - - 78 22 99 % - - 03/24/18 223 (!) 221/63 - - 82 25 98 % - - 03/24/18 221 (!) 215/65 - - 65 20 97 % - - 03/24/18 2200 (!) 228/46 - - 63 19 97 % - - 03/24/18 214 (!) 216/59 - - 60 19 98 % - - 03/24/18 213 (!) 208/50 - - 61 20 98 % - - 03/24/18 213 (!) 235/52 - - 63 17 98 % - - 03/24/18 212 191/106 - - 63 - - - - 03/24/18 2115 191/106 - - 69 24 98 % [...] 99 % - - 03/24/18 193 (!) - - 78 26 98 % - - 03/24/18 191 (!) 209/54 - - 71 11 - - - 03/24/18 190 190/65 - - 72 24 98 % [...] Enzymes Recent Labs 03/25/18 0316 03/24/18 2355 03/24/18 2051 03/24/18 1735 CK 31 30 -- 29* [...] in this patient's care. SIGNATURE: Deanna Yoo APRN.[facility] cardiology DATE: March 25, 2018 TIME: 10:21 [...] CC time 35 min Larisa Dougherty MD [facility] MEDICINE [facility] UNIT PROGRESS NOTE NAME: Sarina [...] home, last A1c 9.3% in 08/2016 at [facility]. - SSI1 - recheck A1c Hypomagnesemia 1.7 on admission. Continue to monitor. - replete PRN VTE Prophylaxis - on heparin drip Dispo - continue care in [facility] SUBJECTIVE INTERVAL HPI: Ms. Lovett feels better [...] Therapist: Previously followed by Melody Montero Current Electrical Superintendent: None Last Hospitalization: None Hx of Suicide Attempts: Never Previous Discontinued Psychiatric Med Trials: None PAST MEDICAL 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 - Aortic valve disorders - Cancer (HCC) - Coronary atherosclerosis of unspecified type of vessel, [place] or graft Coronary Atherosclerosis - Diabetes (HCC) [...] Note Patient Name: Sarina Lovett Patient Location: [place] [address] [address]* Daily Note: 0730 Bedside report received from [...] MD 03/26/2018 10:17 AM Signed Dictation number: [id number] JULIETA on CKD 3 Check spot protein/Cr [...] Dougherty MD 03/26/2018 11:06 AM Signed DEPARTMENT OF [facility] MEDICINE PROGRESS NOTE Name: Sarina [...] Patient and RN SIGNATURE: Larisa Dougherty MD [facility] High Sens Troponin Ton 03-24 High Sensitivity ANGE 30 ng/L High <12 [facility] Comment on above: Result Comment: When [...] CBCDIF, PT, CKCKMB, CMP #### [place] [id number] High Sensitivity ANGE 31 ng/L High <12 [facility] Comment on above: Result Comment: When [...] NTBNP, HSTNT, CBCDIF, PT, CKCKMB, CMP #### [place] [address] Magnesiumon 03-24-2018 Magnesium mass conc 1.7 mg/dL Normal 1.7-2.6 [facility] Comment on above: Performed By: #### P TT, NTBNP, HSTNT, CBCDIF, PT, CKCKMB, CMP #### [place] [phone] NT Pro BNPon 03-24-2018 Protein mass conc 9108 pg/mL High <125 [facility] Comment on above: Performed By: #### P TT, NTBNP, HSTNT, CBCDIF, PT, CKCKMB, CMP #### [place] [phone] Protimeon 03-24-2018 Prothrombin time (PT) Coag time (PPP) 1.0 s Normal 0.9-1.3 [facility] Comment on above: Result Comment: Rachel min K Antagonist (VKA) Therapeutic Range: INR 2 to 3 (Target INR of 2.5) Note: For patients treated with VKA drugs, such as warfarin, the [place] [employer] 2012 Guideline recommends [...] Chest 2012, 141:7S-47S Roger RA, et al. [facility] 2017, 70: 252-289 Performed By: #### P TT, NTBNP, HSTNT, CBCDIF, PT, CKCKMB, CMP #### [place] [address] Prothrombin time (PT) Coag time (PPP) 10.4 s Normal 9.7-13.0 [facility] Comment on above: Performed By: #### P TT, NTBNP, HSTNT, CBCDIF, PT, CKCKMB, CMP #### [place] [phone] Troponin Ton 03-24-2018 Troponin T.cardiac mass conc 0.025 ng/mL Normal 0.000-0.029 [facility] Comment on above: Performed By: #### P TT, NTBNP, HSTNT, CBCDIF, PT, CKCKMB, CMP #### [place] [phone] Urinalysis with Microscopico n 03-24-2018 Bacteria LM.HPF #/area (Urine sed) Rare Critically abnormal Negative [facility] Comment on above: Performed By: #### P TT, NTBNP, HSTNT, CBCDIF, PT, CKCKMB, CMP #### [place] [address] Bilirubin, Urine Negative Normal Negative [facility] Comment on above: Performed By: #### P TT, NTBNP, HSTNT, CBCDIF, PT, CKCKMB, CMP #### [place] [address] Clarity Nom (U) Clear Normal Clear [facility] Comment on above: Performed By: #### P TT, NTBNP, HSTNT, CBCDIF, PT, CKCKMB, CMP #### [place] [phone] Color Nom (U) Yellow Normal Yellow [facility] Comment on above: Performed By: #### P TT, NTBNP, HSTNT, CBCDIF, PT, CKCKMB, CMP #### [place] [phone] Comments SEE COMMENT Normal [facility] Comment on above: Result Comment: Micr oscopic Examination Performed Performed By: #### P TT, NTBNP, HSTNT, CBCDIF, PT, CKCKMB, CMP #### [place] [phone] Epithelial cells LM.HPF #/area (Urine sed) SEE COMMENT Critically abnormal Negative [facility] Comment on above: Result Comment: Rare Squamous Epithelial Cells Performed By: #### P TT, NTBNP, HSTNT, CBCDIF, PT, CKCKMB, CMP #### [place] [address] Glucose Ql (U) Negative Normal [facility] Comment on above: Performed By: #### P TT, NTBNP, HSTNT, CBCDIF, PT, CKCKMB, CMP #### [place] [address] Hemoglobin/Blood,Ur Small Critically abnormal [facility] Comment on above: Performed By: #### P TT, NTBNP, HSTNT, CBCDIF, PT, CKCKMB, CMP #### [place] [address] Ketones Ql (U) Negative Normal [facility] Comment on above: Performed By: #### P TT, NTBNP, HSTNT, CBCDIF, PT, CKCKMB, CMP #### [place] [address] Leukest Moderate Critically abnormal [facility] Comment on above: Performed By: #### P TT, NTBNP, HSTNT, CBCDIF, PT, CKCKMB, CMP #### [place] [address] Nitrite Ql (U) Negative Normal [facility] Comment on above: Performed By: #### P TT, NTBNP, HSTNT, CBCDIF, PT, CKCKMB, CMP #### [place] [address] pH (Bld) 5.0 Normal 5.0-8.0 [facility] Comment on above: Performed By: #### P TT, NTBNP, HSTNT, CBCDIF, PT, CKCKMB, CMP #### [place] [phone] Protein mass conc (U) 30 mg/dL Critically abnormal Negative [facility] Comment on above: Performed By: #### P TT, NTBNP, HSTNT, CBCDIF, PT, CKCKMB, CMP #### [place] [phone] RBC #/vol (U) Rare Critically abnormal Negative [facility] Comment on above: Performed By: #### P TT, NTBNP, HSTNT, CBCDIF, PT, CKCKMB, CMP #### [address] Specific [place], Ur 1.015 Normal 1.005-1.030 [facility] Comment on above: Performed By: #### P TT, NTBNP, HSTNT, CBCDIF, PT, CKCKMB, CMP #### [place] [phone] Urobilinogen Qn (U) <2.0 Normal <2.0 [facility] Comment on above: Performed By: #### P TT, NTBNP, HSTNT, CBCDIF, PT, CKCKMB, CMP #### [place] [phone] WBC #/vol (Bld) 0-5 Critically abnormal Negative [facility] Comment on above: Performed By: #### P TT, NTBNP, HSTNT, CBCDIF, PT, CKCKMB, CMP #### [place] [phone] XR CHEST 1V FRONTAL PORTon 0 03-24-2018 [...] 4. Other: IMPRESSION: Mild bilateral basal atelectasis. Mill Supervisor: PSCB Transcribe Date/Time: Mar 24 2018 6:48P Dictated by : ELEONORA HIGGINS MD This examination was interpreted and the report reviewed and electronically signed by: ELEONORA HIGGINS MD on Mar 24 2018 6:49PM EST [id number] N [facility] Vital Signs Date Time Vital Sign Value Performing Clinician Faci lity 04-11-2023 14:27-0500 Body height 165.1 cm Shaikh Shira DE LEÓN Work Phone: [facility] 04-11-2023 14:27-0500 Body mass index (BMI) [Ratio] 29.62 kg/m2 Shaikh Shira DE LEÓN Work Phone: [facility] 04-11-2023 14:27-0500 Body temperature 97.5 [degF] Shaikh Shira DE LEÓN Work Phone: [facility] 04-11-2023 14:27-0500 Body weight 80.74 kg Shaikh Shira DE LEÓN Work Phone: [facility] 04-11-2023 14:27-0500 Diastolic blood pressure 86 mm[Hg] Shaikh Shira DE LEÓN Work Phone: [facility] 04-11-2023 14:27-0500 Heart rate 85 /min Shaikh Shira DE LEÓN Work Phone: [facility] 04-11-2023 14:27-0500 SaO2% (BldA) [Mass fraction] 95 % Shaikh Shira DE LEÓN Work Phone: [facility] 04-11-2023 14:27-0500 Systolic blood pressure 122 mm[Hg] Shaikh Shira DE LEÓN Work Phone: [facility] 01-27-2023 12:57-0500 Diastolic blood pressure 82 mm[Hg] Prince Christofferson [facility] 01-27-2023 12:57-0500 Heart rate 82 /min Prince Christofferson [facility] 01-27-2023 12:57-0500 SaO2% (BldA) [Mass fraction] 98 % Prince Christofferson [facility] 01-27-2023 12:57-0500 Systolic blood pressure 134 mm[Hg] Prince Christofferson [facility] 12-16-2022 13:00-0400 Diastolic blood pressure 86 mm[Hg] Prince Christofferson [facility] 12-16-2022 13:00-0400 Heart rate 76 /min Prince Christofferson [facility] 12-16-2022 13:00-0400 SaO2% (BldA) [Mass fraction] 92 % Prince Ankushofferson [facility] 12-16-2022 13:00-0400 Systolic blood pressure 140 mm[Hg] Prnice Christofferson [facility] 06-14-2022 11:30-0400 Body height 162.56 cm Trevor Guevara Other [facility] Other 06-14-2022 11:30-0400 Body mass index (BMI) [Ratio] 30.38 kg/m2 Trevor Guevara Other [facility] [employer] Other 06-14-2022 11:30-0400 Body weight 80.29 kg Trevor Guevara Other [facility] Other 06-14-2022 11:30-0400 Diastolic blood pressure 100 mm[Hg] Trevor Paola Other [facility] Other 06-14-2022 11:30-0400 SaO2% (BldA) [Mass fraction] 97 % Trevor Paola Other [facility] Other 06-14-2022 11:30-0400 Systolic blood pressure 152 mm[Hg] Trevor Paola Other [facility] Other Encounters Encounter Date Encounter Type Care Provider Facility Start: 06-20-2023 End: 06-20-2023 ambulatory SHAIKH SHIRA Not Available Start: 04-11-2023 End: 04-11-2023 ambulatory SHAIKH SHIRA Not Available Start: 04-11-2023 Kelsie Silva MD Work Phone: [facility] Start: 04-11-2023 Kelsie Silva MD Work Phone: [facility] Start: 04-11-2023 Clinisync Result Encounter Shaikh Shira DE LEÓN Work Phone: [facility] Unsolicited Start: 04-11-2023 End: 04-11-2023 Office outpatient visit 40 minutes Shaikh Shira DE LEÓN Work Phone: [facility] Comment on above: Other specified hypo thyroidism (CMS/HCC) (Primary Dx); Other hyperlipidemia (CMS/HCC); Coronary artery disease involving [place] coronary artery of [place] heart without angina pectoris (CMS/HCC); Primary hypertension (CMS/HCC); Right flank pain; Acute right flank pain Start: 03-20-2023 Letter encounter Sacha norton MD Work Phone: [facility] Start: 03-14-2023 End: 03-14-2023 ambulatory SHAIKH SHIRA Not Available Start: 02-09-2023 End: 02-09-2023 ambulatory LETHA GÓMEZ Not Available Start: 01-27-2023 End: 01-28-2023 ambulatory Prince Garayvalerie Facility:[facility] Start: 01-27-2023 End: 01-27-2023 Patient encounter procedure Prince Cabello [facility] Start: 01-05-2023 End: 01-06-2023 ambulatory Prince Cabello Facility:[facility] Start: 01-05-2023 End: 01-05-2023 Patient encounter procedure Prince Garayvalerie [facility] Start: 12-20-2022 ambulatory Prince Cabello [facility] Start: 12-16-2022 End: 12-17-2022 ambulatory Prince Cabello Facility:[facility] Start: 12-16-2022 End: 12-16-2022 Patient encounter procedure Prince Garayvalerie [facility] Start: 12-11-2022 Letter encounter Sacha norton MD [facility] Start: 09-22-2022 ambulatory Prince Cabello Fac ility:[facility] Start: 09-20-2022 End: 09-21-2022 ambulatory Augie MCDOWELL Facility:[id number] Start: 09-12-2022 Letter encounter Sacha norton MD Work Phone: [facility] Start: 06-14-2022 End: 06-14-2022 ambulatory Trevor Guevara Other [facility] Other Start: 06-14-2022 Office outpatient vi sit 15 minutes Trevor Guevara [facility] Start: 03-30-2022 End: 03-31-[address] TREVOR GUEVARA Facility:[facility] Start: 03-14-2022 Letter encounter Sacha norton MD [facility] Start: 02-12-2022 End: 02-13-[address] TREVOR GUEVARA Facility: Start: 01-20-2022 End: 01-21-[address] TREVOR GUEVARA Facility:[facility] Start: 12-20-2021 Letter encounter Sacha norton MD Work Phone: [facility] Start: 09-19-2021 Letter encounter Sacha norton MD [facility] Start: 06-29-2018 End: 07-07-2018 Evaluation and management of inpatient [facility] Start: 06-06-2018 End: 06-06-2018 Emergency department patient visit [facility] Start: 05-02-2018 End: 05-02-2018 Patient encounter procedure E DORIS BROWNE [facility] Start: 03-24-2018 End: 04-08-2018 Evaluation and management of inpatient [facility] Start: 01-20-2018 End: 01-20-2018 ambulatory UNKNOWN PROVIDER Facility:[facility] Start: 05-02-2014 Preprocedural examination done Sacha Schroeder MD Work Phone: [facility] Work Phone: Procedures Date Procedure Procedure Detail Performing Clinician Start: 04-11-2023 [facility]H UA (CLEAN/CATCH) MICROSCOPIC IF INDICATE Shaikh Shira DE LEÓN Work Phone: Start: 04-03-2018 Antibody screen ANDREE PETERS Comment on above: Performed By: #### PTT, NTBNP, HSTNT, CB CDIF, PT, CKCKMB, CMP #### [place] [id number] Start: 03-27-2018 Electrocardiogram ANDREE PETERS Start: 03-27-2018 Electrocardiogram ANDREE PETERS Start: 03-27-2018 Electrocardiogram ANDREE PETERS Start: 03-26-2018 Electrocardiogram ANDREE PETERS Start: 03-26-2018 Electrocardiogram ANDREE PETERS Start: 03-26-2018 Antibody screen ANDREE PETERS Comment on above: Performed By: #### PTT, NTBNP, HSTNT, CB CDIF, PT, CKCKMB, CMP #### [place] [id number] [place] [id number] Start: 03-25-2018 Electrocardiogram ANDREE PETERS Start: 03-25-2018 [...] (T d or Tdap) [facility]oster [facility] Start: 08-17-2023 End: 08-17-2023 Patient encounter procedure 08/17/2023 9:40 AM EDT Office Visit [facility] [address] [facility] [address] [place] [address] Letha Gómez MD [address] [address] [facility] Start: 06-20-2023 End: 06-20-2023 Patient encounter procedure 06/20/2023 1:00 PM EDT Office Visit [facility] [address] [place] [address] Shaikh Silva MD [address] [place] [address] [facility] Start: 04-11-2023 End: 04-11-2024 CBC W Auto Differential panel - Blood CBC and differential Lab Routine Coronary artery disease involving [place] coronary artery of [place] heart without angina pectoris (CMS/HCC) Primary hypertension (CMS/HCC) Expected: 04/11/2023 (Approximate), Expires: 04/11/2024 [facility] Work Phone: Comment on above: Expected: 04/11/2023 (Approximate), Expires: 04/11/2024 Start: 04-11-2023 End: 04-11-2024 Comprehensive metabolic 2000 panel - Serum or Plasma Comprehensive metabolic panel Lab Routine Coronary artery disease involving [place] coronary artery of [place] heart without angina pectoris (CMS/HCC) Primary hypertension (CMS/HCC) Expected: 04/11/2023 (Approximate), Expires: 04/11/2024 [facility] Comment on above: Expected: 04/11/2023 (Approximate), Expires: 04/11/2024 Start: 04-11-2023 End: 04-11-2024 CT Abdomen and Pelvis WO contrast CT abdomen pelvis wo IV contrast Imaging Routine Right flank pain Expected: 04/11/2023, Expires: 04/11/2024 [facility] Comment on above: Expected: 04/11/2023 , Expires: 04/11/2024 Start: 04-11-2023 End: 04-11-2024 Lipid 1996 panel - Serum or Plasma Lipid panel Lab Routine Other hyperlipidemia (CMS/HCC) Expected: 04/11/2023 (Approximate), Expires: 04/11/2024 [facility] Comment on above: Expected: 04/11/2023 (Approximate), Expires: 04/11/2024 Start: 04-11-2023 End: 04-11-2024 TSH W/REFLEX TO FT4 TSH W/REFLEX TO FT4 Lab Routine Other specified hypothyroidism (CMS/HCC) Expected: 04/11/2023 (Approximate), Expires: 04/11/2024 [facility] Comment on above: Expected: 04/11/2023 (Approximate), Expires: 04/11/2024 Start: 04-11-2023 End: 04-11-2024 Urinalysis complete panel - Urine Urinalysis with reflex microscopic (clean catch) Lab Routine Right flank pain Expected: 04/11/2023 (Approximate), Expires: 04/11/2024 [facility] Comment on above: Expected: 04/11/2023 (Approximate), Expires: 04/11/2024 Start: 03-26-2023 Cholesterol [Mass/volume] in Serum or Plasma Cholesterol [facility] Start: 11-28-2022 Influenza vaccination Influenza Vacc ine (#1) [facility] Start: 10-29-2022 Influenza vaccination Influenza Vacc ine (#1) [facility] Start: 11-28-2021 Influenza vaccination Influenza Vacc ine (#1) [facility] Start: 07-08-2019 Basic metabolic 2000 panel - Serum or Plasma Basic Metabolic Panel [facility] Start: 07-08-2019 Creatinine measurement Basic Metabol ic Panel [facility] Start: 01-09-2019 Screening for malign ant neoplasm of breast Mammography [facility] Start: 10-15-2018 Screening for malign ant neoplasm of colon [facility] Start: 12-13-2017 Pneumococcal Vaccine : 65+ Years (2 - PCV) Pneumococcal Vaccine: 65+ Years (2 - PCV) [facility] Start: 02-28-2013 Annual wellness visit Annual [facility] Visit ([id number]) [facility] Start: 2007 RSV vaccine (optiona l 60+ years) RSV vaccine (optional 60+ years) [facility] Start: 1997 Measurement of occul t blood in single stool specimen FIT [facility] Start: 1997 Shingles (RZV) Vacci ne (1 of 2) Shingles (RZV) Vaccine (1 of 2) [facility] Start: 1947 COVID-19 Vaccine (#1) COVID-19 Vacci ne (#1) [facility] Start: 1947 Medicare Annual Wellness (AWV) Medicare Annual Wellness (AWV) [facility] Immunizations Immunization Date Immunization Notes Care Provider [facility] 01-20-2018 Seasonal trivalent influenza vaccine, adjuvanted, preservative free Sacha Schroeder MD Work Phone: [facility] 01-20-2018 influenza virus vaccine, unspecified formulation Sacha Schroeder MD Work Phone: [facility] 04-28-2017 pneumococcal polysaccharide vaccine, 23 valent Sacha Schroeder MD Work Phone: [facility] 12-14-2016 influenza virus vaccine, unspecified formulation Shaikh Shira DE LEÓN Work Phone: [facility] 12-13-2016 pneumococcal polysaccharide vaccine, 23 valent Shaikh Shira DE LEÓN Work Phone: [facility] 02-02-2016 influenza, seasonal, injectable, preservative free Sacha Schroeder MD Work Phone: [facility] 09-29-2015 pneumococcal conjuga te vaccine, 13 valent Sacha Schroeder MD Work Phone: [facility] 08-23-2015 tetanus toxoid, redu anh diphtheria toxoid, and acellular pertussis vaccine, adsorbed Sacha Schroeder MD Work Phone: [facility] Work Phone: 12-05-2013 influenza virus vaccine, unspecified formulation Sacha Schroeder MD Work Phone: [facility] 11-10-2010 pneumococcal polysaccharide vaccine, 23 valent Shaikh Shira DE LEÓN Work Phone: [facility] Healthcare Payers Date Payer Category Payer Unknown [id number] 2014 Medicare [id number] 2014 Medicare ANTHEM - MEDICAR E ANTHEM MEDICARE [id number] 2014-Present [address] [place] [address] Medicare HMO [id number] 1959 Self-pay [id number] 1959 Unknown [id number] 1947 Unknown [id number] 1947 Unknown [id number] [id number] 1947 Unknown [id number] [id number] 1947 Unknown [id number] [id number] 1947 Unknown [id number] 2.16.840.1.152012.3.579.2.727 1947 Unknown [id number] [id number] 1947 Unknown [id number] [id number] 1947 Unknown [id number] [id number] 1947 Unknown [id number] [id number] 1947 Unknown [id number] [id number] 1947 Unknown [id number] [id number] 1947 Unknown [id number] [id number] Unknown [id number] Social History Date Type Detail Facility Start: 07-09-2015 End: 03-14-2023 Tobacco smoking status MNIS Ex-smoker [facility] Start: 07-18-1960 End: 07-18-2013 History of tobacco use [facility] Start: 07-18-1960 End: 07-18-2013 History of tobacco use Cigarette Smoker [facility] Start: 07-09-2015 End: 04-11-2023 Cigarettes smoked current (pack per day) - Reported 1 [facility] Start: 07-09-2015 End: 03-14-2023 Tobacco use and exposure Smokeless tobacco non-user [facility] Start: 01-20-2018 Alcohol intake Current non-dr career consultant of alcohol (finding) [facility] Start: 02-21-2014 Tobacco Comment quite july 18, 2013 [facility] Start: 1945 Sex Assigned At Not on file [facility] Start: 02-08-2023 End: 04-11-2023 Sex Assigned At [facility] History of tobacco use Passive smoker [facility] Start: 03-14-2023 End: 04-11-2023 Alcohol intake Current drinker of alcohol (finding) [facility] How often to you hav e a drink containing alcohol? Monthly or less [facility] How many standard drinks containing alcohol do you have on a typical day? 1 or 2 [facility] How often do you hav e 6 or more drinks on 1 occasion? Less than monthly [facility] Start: 07-30-2022 Alcohol Comment caffeine 1-2 cups/da y [facility] Medical Equipment Procedure Code Equipment Code Equipment Origin al Text Equipment Identifier Dates Lens Posterior Chamber 20.0 Intraocular Sa60at Sa60at 20.0 - [id number] Start: 02-19-2016 Lens Posterior Chamber 20.0 Intraocular Sa60at Sa60at 20.0 - [id number] Start: 03-03-2016 Goals Date Patient Goal Desired [...] Assessment Result Facility 01-27-2023 Functional Status No [facility] 12-16-2022 Functional Status No [facility] Clinical Notes 06-14-2022 to 04-11-2023 Shaikh Shira MD - 04/11/2023 3:48 PM Simona Silva MD - 04/11/2023 3:46 PM Simona Silva MD - 04/11/2023 2:56 PM ESTSnubia Silva MD - 04/11/2023 2:56 PM EST Note Date & Type Note Facility 04-11-2023 History of Present illness Narrative Associated Problem(s): Acute right flank pain Acute right flank pain x 3 days. Persistent, associated nausea, polyuria. No hematuria, urgency, or dysuria. Denies change in pain with food intake, bowel movement or urination. Tenderness on exam - right CVA. No suprapubic tenderness. Check UA - possible diagnosis - renal stones / pyelonephritis. Will order CT abd/pelvis w/o contrast. Associated Problem(s): Coronary artery disease involving [place] coronary artery of [place] heart without angina pectoris (CMS/HCC) S/p PCI over 20 years. Asymptomatic. Follows Cardiology. C/w ASA, statin Associated Problem(s): Hypertension (CMS/HCC) BP well controlled. On average less than 130/90. Tolerating Anti hypertensive w/o adverse effects. Denies lightheadedness, dizziness, syncope, presyncope. Patient encouraged to continue with home BP monitoring and call office if he experiences orthostatic symptoms or persistently elevated BP. On amlodipine, losartan/hydrochlorothiazide. Associated Problem(s): Other specified hypothyroidism (CMS/HCC) On levothyroxine, check TSH. Associated Problem(s): Other hyperlipidemia (CMS/HCC) On simvastatin. Check Lipid panel Subjective Patient ID: Sarina Villegas is a 78 y.o. female who presents for Flank Pain (NAUSEA). Reports persistent right flank pain, associated nausea and polyuria. Pain is worse when she lays down on her side. No hematuria. No fever. One episode of vomiting. No prior hx of renal stones. No change in her symptoms with movement, food intake or bowel movement. Pain started Tuesday morning and she woke up with it. Chronic stable conditions. Tolerating medications w/o adverse effects. Current Outpatient Medications on File Prior to Visit Medication Sig Dispense Refill ASPIRIN 81 MG chewable tablet Chew 81 mg 1 (one) time. levothyroxine (Synthroid, Levoxyl) 50 MCG tablet Take 1 tablet (50 mcg) by mouth 1 (one) time each day at the same time 90 tablet 0 losartan-hydroCHLOROthiazide (Hyzaar) 100-25 MG tablet Take 1 tablet by mouth in the morning. 90 tablet 0 naproxen sodium (Aleve) 220 MG tablet Take 220 mg by mouth every 12 (twelve) hours. simvastatin (Zocor) 20 MG tablet Take 1 tablet (20 mg) by mouth at bedtime 90 tablet 0 [DISCONTINUED] amLODIPine (Norvasc) 5 MG tablet Take 10 mg by mouth in the morning. [DISCONTINUED] citalopram (CeleXA) 40 MG tablet Take 40 mg by mouth 1 (one) time each day at the same time. No current facility-administered medications on file prior to visit. Allergies Allergen Reactions Cephalosporins Penicillin G Rash Review of System All systems negative except as mentioned in HPI. Visit Vitals BP 122/86 (BP Location: Left arm, Patient Position: Sitting, BP Cuff Size: Large adult) Pulse 85 Temp 97.5 F (Tympanic) Ht 5' 5 Wt 178 lb SpO2 95% BMI 29.62 kg/m Smoking Status Former BSA 1.92 m Patient Health Questionnaire-2 Score: 0 @LABRESULTS@ No images are attached to the encounter. Objective Reports persistent right flank pain - x 3 days Physical Exam General: Comfortable, NAD Resp: Normal RR, CTA b/l CVS: Normal HR, No mumur noted. GI: soft, non distended. Right CVA tenderness Neuro: AAOX 3, moving all extremities. Psych: Calm, co operative, no HI/SI. Assessment/Plan Problem List Items Addressed This Visit Hypertension (CMS/HCC) BP well controlled. On average less than 130/90. Tolerating Anti hypertensive w/o adverse effects. Denies lightheadedness, dizziness, syncope, presyncope. Patient encouraged to continue with home BP monitoring and call office if he experiences orthostatic symptoms or persistently elevated BP. On amlodipine, losartan/hydrochlorothiazide. Relevant Medications amLODIPine (Norvasc) 5 MG tablet Other Relevant Orders CBC and differential Comprehensive metabolic panel Other specified hypothyroidism ([facility]) - Primary On levothyroxine, check TSH. Relevant Orders TSH W/REFLEX TO FT4 Other hyperlipidemia ([facility]) On simvastatin. Check Lipid panel Relevant Orders Lipid panel Coronary artery disease involving [place] coronary artery of [place] heart without angina pectoris ([facility]) S/p PCI over 20 years. Asymptomatic. Follows Cardiology. C/w ASA, statin Relevant Orders CBC and differential Comprehensive metabolic panel Acute right flank pain Acute right flank pain x 3 days. Persistent, associated nausea, polyuria. No hematuria, urgency, or dysuria. Denies change in pain with food intake, bowel movement or urination. Tenderness on exam - right CVA. No suprapubic tenderness. Check UA - possible diagnosis - renal stones / pyelonephritis. Will order CT abd/pelvis w/o contrast. Other Visit Diagnoses Right flank pain Relevant Orders Urinalysis with reflex microscopic (clean catch) CT abdomen pelvis wo IV contrast Total time spent on patient's assessment, chart review, clinical decision making, co ordination of care and patient education regarding plan was 45 minutes with more than 50% time spent on face to face evaluation Follow up in about 2 months (around 06/10/2023). documented in this encounter [facility] 01-05-2023 Note Echocardiology Procedure Exam Date/Time Accession # Ordering Dr. Amaro Transthoracic 01/05/2023 10:17 EST [id number] Destiney DE LEÓN, Prince Castro CPT code 62388 [id number] Reason for Exam (Echo Transthoracic Complete) I25.10;CAD Coronary artery disease Report [facility] [address] [place] [address] Adult Echocardiogram Report Name: SARINA VILLEGAS Study Date: 01/05/2023 08:53 AM BP: 143/90 mmHg Patient Location: [facility] HR: 70 : 1945 Gender: Female Height: 63 in Age: 77 yrs Ethnicity: T Weight: 175 lb Reason For Study: CAD Coronary artery disease BSA: 1.8 m2 History: HTN,Stents Ordering Physician: Destiney^Prince^D. Referring Physician: Prince Cabello Performed By: Helen Godinez, RDMS, RVT Interpretation Summary No comparison study is [...] Nacho ADAMS MD Transcribed by: NAZIA Technologist: [facility] 06-14-2022 Evaluation note Encounter Date Diagnosis Assessment Notes May, Dental infection (ICD-10 - K04.7) Discussed differential of [place] palsy v. dental issue. Tooth fragment appears inflammed. She will contact her dentist and let us know what they say. [facility] [employer] Other Evaluation + Plan note Future Appointments Appointment Date:01/27/2023 01:15:00 PM Scheduled Provider:Prince Cabello MD Location:[facility] Appointment Type:Cardiology Follow Up (FT) Future Scheduled Tests Radiology* Echo Transthoracic Complete 12/16/22 * US Carotid [facility]lex [facility] Future Appointments Appointment Date:01/27/2023 01:15:00 PM Scheduled Provider:Prince Cabello MD Location:.[facility]iology [facility] Appointment Type:[facility] Future Appointments Appointment Date:07/22/2023 01:15:00 PM Scheduled Provider:Prince Cabello MD [facility] Type[facility] Diagnosis Other specified hypothyroidism (CMS/HCC)- Primary Other hyperlipidemia (CMS/HCC) Coronary artery disease involving [place] coronary artery of [place] heart without angina pectoris (CMS/HCC) Primary hypertension (CMS/HCC) Unspecified essential hypertension Right flank pain Abdominal pain, unspecified site Acute right flank pain [facility] - [facility]orted* Type Description Date Medical History Hypertension Medical History Hyperlipidemia [facility] [employer] Other Hospital course Narrative No data available for this section [facility] No data available for this section [facility] No data available for this section [facility] Summary Purpose Family History No Family History [...] Code 02/21/2014 2:08 AM 02/21/2014 10:19 PM Reason for Referral Specialty Diagnoses / Procedures Referred By Contac t Referred To Contact Diagnoses Right flank pain Procedures CT abdomen pelvis wo IV contrast Shaikh Silva MD [address] [place] [address] Referral ID Status Reason Start Date Expiration Date V isits Requested Visits Authorized [id number] Pending Review 04/11/2023 10/08/2023 1 1 Additional Source Comments INFORMATION SOURCE (unrecogn ized section and content) DATE CREATED AUTHOR 06/05/2018 [facility] DATE CREATED AUTHOR AUTHOR'S ORGANIZ ATION 07/18/2018 [facility] DATE CREATED AUTHOR AUTHOR'S ORGANIZ ATION 05/17/2021 [facility] DATE CREATED AUTHOR AUTHOR'S ORGANIZ ATION 04/01/2022 [facility] DATE CREATED AUTHOR AUTHOR'S ORGANIZ ATION 01/29/2023 [facility] DATE CREATED AUTHOR AUTHOR'S ORGANIZ ATION 06/21/2023 [facility] dical Specialists EPIC Care Teams (unrecognized sec tion and content) Typewriter Mechanic Relationship Specialty Start Date End Date Sacha Schroeder MD [address] [place] [address] PCP - General Family Medicine 03/27/14 Typewriter Mechanic Relationship Specialty Start Date End Date Sacha Schroeder MD [address] [place] [address] PCP - General Family Medicine 03/27/14 Typewriter Mechanic Relationship Specialty Start Date End Date Sacha Schroeder MD [address] [place] [address] PCP - General Family Medicine 03/27/14 Typewriter Mechanic Relationship Specialty Start Date End Date Shaikh Silva MD [address] [place] [phone] PCP - Devoted 02/28/23 Shaikh Silva MD [address] [place] [phone] PCP - General Internal Medicine 04/11/23 Typewriter Mechanic Relationship Specialty Start Date End Date Shaikh Silva MD [address] [place] [phone] PCP - Devoted 02/28/23 Shaikh iSlva MD [address] [place] [phone] PCP - General Internal Medicine 04/11/23 Typewriter Mechanic Relationship Specialty Start Date End Date Shaikh Silva MD [address] [place] [phone] PCP - Devoted 02/28/23 Shaikh Silva MD [address] [place] [phone] PCP - General Internal Medicine 04/11/23 REASON FOR VISIT (unrecogniz ed section and content) Reason Comments Flank Pain NAUSEA FOR RECORDS PERTAINING TO PATIENTS WHO ARE [...] BE BASED ON THE PRIMARY CLINICAL RECORDS. [employer] provides no warranty or guarantee of the accuracy or completeness of information in this document.
--- NOTE | 2023-06-29 22:27 | XR_ITS ---
The [address] [address] Patient Name: AYSHA ABRAHAM MRN: [id number] date: 1945 Sex: F Assigned Patient Location: ER Current Patient Location: ER Accession/Order Number: [id number] Exam Date: 06/29/2023 22:31 Report Date: 06/29/2023 23:17 At the request of: AURELIA GILMAN Procedure: XR chest 1V EXAMINATION:XR chest 1V INDICATION:Atraumatic pain COMPARISON:09/20/2022. TECHNIQUE:A single frontal view of the chest is submitted. FINDINGS: The cardiac silhouette is enlarged but stable. The pulmonary vascularity is within normal limits. There is probable atelectasis in the left lower lobe. No new airspace disease has developed in the lungs. There is no costophrenic angle blunting. XR/XR chest 1V IMPRESSION: No definitive acute cardiopulmonary process in the chest. Electronically authenticated by: ALEX FONTAINE Date: 06/29/2023 23:17
--- NOTE | 2023-06-29 22:28 | ECG_ITS ---
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
[2023-06-29] MEDS: ORPHENADRINE 60 MG/ 2 ML VIAL 30 MG IV (22:47)
[2023-06-29] MEDS: KETOROLAC TROMETHAMINE 30 MG/ML VIAL 15 MG IVP (22:47)
--- NOTE | 2023-06-29 23:14 | ED_ITS ---
HPI HPI - Back Pain/Injury General Chief Complaint: Back Pain/Injury Stated Complaint: BACK PAIN Time Seen by Provider: 06/29/23 22:21 Source: patient Mode of arrival: walk-in Limitations: no limitations History of Present Illness HPI Narrative: 78-year-old female presents for thoracic area back pain which is bilateral. There was no trauma directly but she has been doing a lot of lifting and moving items because she is preparing for a garage sale. No chest pain fever cough or shortness of breath. No dysuria or hematuria and the pain does not seem to radiate. Related Data Home Medications ?Medication ?Instructions ?Recorded ?Confirmed amlodipine 5 mg tablet 5 mg PO DAILY 09/20/22 06/29/23 aspirin 81 mg tablet,delayed 81 mg PO DAILY 09/20/22 06/29/23 release (Adult Aspirin Regimen) citalopram 40 mg tablet 40 mg PO DAILY 09/20/22 06/29/23 levothyroxine 50 mcg tablet 50 mcg PO DAILY 09/20/22 06/29/23 losartan 100 1 tab PO DAILY 09/20/22 06/29/23 mg-hydrochlorothiazide 25 mg tablet simvastatin 20 mg tablet 20 mg PO DAILY 09/20/22 06/29/23 Previous Rx's ?Medication ?Instructions ?Recorded ondansetron 4 mg disintegrating 4 mg PO Q8H PRN nausea and 09/22/22 tablet vomiting 4 days #10 tabs acetaminophen 300 mg-codeine 30 mg 1 tab PO Q6H PRN pain 5 days #20 06/29/23 tablet tabs methocarbamol 500 mg tablet 500 mg PO Q8H PRN pain #20 tabs 06/29/23 Allergies Allergy/AdvReac Type Severity Reaction Status Date / Time Penicillins Allergy Unknown Verified 06/29/23 22:17 Opioid HPI Opioid Management Most Recent Opioid Data: Last Pain Scale 0 09/22/22 00:00 Last Pain Intensity 5 09/20/22 13:26 Review of Systems ROS Narrative A ten point review of systems is negative except as noted above. [facility] Medical History Surgical History Family History Brother Family history of cancer Family history of myocardial infarction Mother Family history of stroke Social History Within the past year, how often did you have a drink containing alcohol: 2-4 times a month Within the past year, how many standard drinks containing alcohol did you have on a typical day: 1 or 2 Within the past year, how often did you have six or more drinks on one occasion: never Total score: 0 Score interpretation: A score less than 3 is consistent with normal alcohol consumption. Smoking status: Former smoker Non-prescribed substance use: denies use Previous occupational history: [employer] Highest level of school completed/degree received: high school graduate Are you now , , , , never or living with a partner: In a typical week, how many times do you talk on the telephone with family, friends, or neighbors: 3 or more times per week How often do you get together with friends or relatives: once per week How often do you attend oriental orthodox or adventism services: 4 or more times per year Do you belong to any clubs or organizations such as oriental orthodox groups unions, fraternal or athletic groups, or school groups: no Total score: 2 Score interpretation: A score of greater than or equal to 2 indicates the lowest level of social isolation. Little interest or pleasure in doing things: not at all Feeling down, depressed, or hopeless: not at all Feel stressed/tense/nervous/anxious/difficulty sleeping: not at all Gender Identity: female Exam Narrative Exam Narrative: Nurses note and vital signs reviewed and patient is not hypoxic. General: The patient appears is pacing in the room and appears uncomfortable. Skin: Warm, dry, no pallor noted. There is no rash noted. Head: Normocephalic, atraumatic Eye: Normal conjunctiva, no drainage Ears, Nose, Mouth, and Throat: oral mucosa is moist. Nares patent. Cardiovascular: Regular Rate and Rhythm Respiratory: Patient is in no distress, no accessory muscle use, lungs are clear to auscultation, no wheezing, rales or rhonchi. Breath sounds are equal Back: No bruise or rash or palpable tenderness. GI: Soft and nontender Musculoskeletal: The patient has no evidence of calf tenderness, no pitting edema, symmetrical pulses noted bilaterally Neurological: A&O, normal speech Psychiatric: Cooperative Constitutional Vital Signs, click to edit/add: Last Vital Signs Temp 98.0 F 06/29/23 22:17 Pulse 96 H 06/29/23 22:17 Resp 22 H 06/29/23 22:17 BP 124/84 06/29/23 22:17 Pulse Ox 96 06/29/23 22:17 O2 Del Method Room Air 06/29/23 22:17 Course Vital Signs Vital signs: Vital Signs Temperature 98.0 F 06/29/23 22:17 Pulse Rate 96 H 06/29/23 22:17 Respiratory Rate 22 H 06/29/23 22:17 Blood Pressure 124/84 06/29/23 22:17 Pulse Oximetry 96 06/29/23 22:17 Oxygen Delivery Method Room Air 06/29/23 22:17 Temperature 98.0 F 06/29/23 22:17 Pulse Rate 96 H 06/29/23 22:17 Respiratory Rate 22 H 06/29/23 22:17 Blood Pressure 124/84 06/29/23 22:17 Pulse Oximetry 96 06/29/23 22:17 Oxygen Delivery Method Room Air 06/29/23 22:17 MDM - Back Pain/Injury MDM Narrative Medical decision making narrative: X-ray and urinalysis are negative. I have no suspicion of aneurysm or dissection. My clinical impression is that this is muscular. She is feeling improved now and is able to be discharged home. Treatment diagnosis and follow- up were discussed with the patient. Urine culture is pending. Differential Diagnosis Differential diagnosis: Likely renal colic, thoracic back pain and other (Muscle strain) Lab Data Attestation: I reviewed the patient's lab results. Labs: Lab Results 06/29/23 Range/Units 23:25 Urine Color Lt. yellow (YELLOW) Urine Clarity Clear (CLEAR) Urine pH 5.5 (5.0-9.0) Ur Specific [place] 1.020 (1.005-1.025) Urine Protein Negative (NEG/TRACE) mg/dL Urine Glucose (UA) Negative (NEGATIVE) mg/dL Urine Ketones Negative (NEGATIVE) mg/dL Urine Occult Blood Negative (NEGATIVE) Urine Nitrite Negative (NEGATIVE) Urine Bilirubin Negative (NEGATIVE) Urine Urobilinogen 0.2 (0.2-1.0) EU/dL Ur Leukocyte Esterase Moderate A (NEGATIVE) Urine RBC 0-2 (0-2) #/HPF Urine WBC 5-10 A (NONE SEEN) #/HPF Ur Squamous Epith Cells Few A (NONE/RARE) #/LPF Urine Crystals None seen (None Seen) #/HPF Urine Bacteria Trace A (NONE SEEN) #/HPF Urine Casts None seen (NONE SEEN) #/LPF Urine Mucus None seen (NONE SEEN) Ur Culture Indicated? Yes ECG Data Attestation: I personally reviewed and interpreted this ECG as follows: (EKG on my interpretation shows sinus rhythm without acute change, artifact present.) Discharge Plan Discharge Stand Alone Forms: Portal Instructions Chief Complaint: Back Pain/Injury Clinical Impression: Thoracic back pain Patient Disposition: Home, Self-Care Time of Disposition Decision: 23:48 Condition: Good Mode of Transportation: Private Vehicle Prescriptions / Home Meds: New acetaminophen-codeine 300-30 mg tablet 1 tab PO Q6H PRN (Reason: pain) 5 Days Qty: 20 0RF methocarbamol 500 mg tablet 500 mg PO Q8H PRN (Reason: pain) Qty: 20 0RF No Action citalopram 40 mg tablet 40 mg PO DAILY Hold Instructions: Order Change amlodipine 5 mg tablet 5 mg PO DAILY losartan-hydrochlorothiazide 100-25 mg tablet 1 tab PO DAILY simvastatin 20 mg tablet 20 mg PO DAILY aspirin [Adult Aspirin Regimen] 81 mg tablet,delayed release (DR/EC) 81 mg PO DAILY levothyroxine 50 mcg tablet 50 mcg PO DAILY ondansetron 4 mg tablet,disintegrating 4 mg PO Q8H PRN (Reason: nausea and vomiting) 4 Days Qty: 10 0RF Print Language: Romanian Instructions: Thoracic Pain (ED) Referrals: Shaikh Silva MD [Primary Care Provider] - 1 week
[2023-06-29 23:30] LABS: Bilirubin Urine NEGATIVE (NEGATIVE); Blood Urine NEGATIVE (NEGATIVE); Clarity Urine CLEAR (CLEAR); Color Urine LT. YELLOW (YELLOW); Glucose Urine UA NEGATIVE (NEGATIVE); Ketones Urine NEGATIVE (NEGATIVE); Leukocyte Esterase Urine MODERATE (NEGATIVE); Nitrite Urine NEGATIVE (NEGATIVE); Protein Urine NEGATIVE (NEG/TRACE); Urobilinogen Urine 0.2 EU/dL (0.2-1.0); pH Urine 5.5 (5.0-9.0)
[2023-06-29 23:38] LABS: Bacteria Urine TRACE #/HPF (NONE SEEN); Cast Seen? NONE SEEN #/LPF (NONE SEEN); Crystals Seen? None Seen #/HPF (None Seen); Mucus Urine NONE SEEN (NONE SEEN); RBC Urine 0-2 #/HPF (0-2); Squamous Epithelial Cell Urine FEW #/LPF (NONE/RARE); Urine Culture Indicated YES
[2023-06-29] MEDS: MORPHINE SULFATE 4 MG/ML VIAL 2 MG IV (23:38)
== END 2023-06-30 | disposition home or self-care (01) ==
PROVIDERS: Emergency Provider Emergency Medicine; PCP Internal Medicine
DX: M54.6 Pain in thoracic spine (principal); Z79.82 Long term (current) use of aspirin; Z79.899 Other long term (current) drug therapy; Z79.890 Hormone replacement therapy; Z87.891 Personal history of nicotine dependence
CPT/HCPCS: 71045; 81001; 87086; 93005; 96374; 96375; 99285

== ENCOUNTER 2023-07-01 21:51 | Emergency (ER) | payer OTHER, SELFPAY ==
[2023-07-01 21:55] VITALS: BP 160/101; PULSE 98; TEMP 36.7; O2SAT 98; BMI 64.2
--- OUTSIDE RECORDS SUMMARY | 2023-07-01 21:59 | XMS_ITS | CCD ---
Author Organization [facility] Care Team Providers Care Career Development Coordinator/Teacher Name Role Phone Joy BROWNE DORIS Attending [...] Unavailable GUEVARA, DR TREVOR Hamilton Attending Unavailable GENOA, DR MICHELE Vizcarra Consulting Unavailable GUEVARA, DR [...] Care Provider SHAIKH SILVA Primary Care Physician Prince Cabello Attending Unavaila [...] adverse reactions to drug (disorder) 03-28-19 04 [facility] Repository (2 sources) OTHER; Translations: [OTHER] Propensity to adverse reactions (disorder) 02-03-20 06 [facility] Repository (7 sources) atorvastatin; Translations: [ATORVASTATIN] Drug Allergy 06-18-19 16 [facility] ([facility] sources) ezetimibe; Translations: [EZETIMIBE] Drug Allergy 05-21-19 17 [facility] Repository (7 sources) Hmg-Coa Reductase Inhibitors (Statins); Translations: [STATINS] Propensity to adverse reactions to drug (disorder) 09-05-19 08 Myopathy [facility] Repository (7 sources) Nitroglycerin; Translations: [NITROGLYCERIN] Drug Allergy 06-18-19 16 [facility] Repository (7 sources) pitavastatin; Translations: [PITAVASTATIN] Drug Allergy 09-02-19 17 [facility] ([facility] sources) rosuvastatin; Translations: [ROSUVASTATIN] Drug Allergy 09-04-19 16 [facility] (7 sources) Simvastatin; Translations: [SIMVASTATIN] Drug Allergy 06-18-19 16 [facility] (7 sources) Sulfonamides (Antibiotic); Translations: [SULFA ANTIBIOTICS] Propensity to adverse reactions to drug (disorder) 09-02-[address] [facility] Repository (7 sources) BANDAGE TAPE; Translations: [BANDAGE TAPE] Propensity to adverse reactions (disorder) 09-17-[address] [facility] Repository (1 source) Cephalosporins (Antibiotic) Drug allergy (disorder) [facility] Repository (1 source) Penicillins Drug allergy (disorder) 08-31-19 13 [facility] Repository (5 sources) Penicillin; Translations: [penicillin] Drug Allergy hives, Eruption of skin (disorder) [facility] (4 sources) Cephalosporins (Antibiotic) Drug Intolerance 01-10-20 13 [facility] Healthcare Work Phone: (4 sources) Penicillin G Drug Allergy 07-21-19 23 Rash [facility] Healthcare Medications Current Medications Medication Drug Class(es) Dates Sig (Normalized) Sig (Original) [id number] 200 actuat albuterol 0.09 mg/actuat metered dose [...] Unstable angina; Translations: [Atherosclerotic heart disease of [place] coronary artery with unstable angina pectoris] Onset: [...] patient's main reason for consultation was the mcfp of her procedure manager. She has a history of a spot [...] with voice recognition artificial intelligence software, specifically [employer] and or [employer]. Substitutions may have occurred due to the inherent limitations of voice recognition and artificial intelligence software. Documentation services were performed after patient or guardian consented to allow [employer] to record this visit. BERTRAM predictive maintenance specialist and provider reviewed before signing. BERTRAM: Mary Gardner Follow-up No qualifying data available Problem List/Past Medical History Ongoing No qualifying data Historical Coronary artery disease Hyperlipidemia Hypertension Hypertension Procedure/Surgical History Cholecystectomy. Medications amlodipine aspirin 81 mg Oral EC Tab citalopram levothyroxine losartan simvastatin Allergies penicillin (Rash) Social History Tobacco Former smoker, quit more than 30 days ago Tobacco Use:., 01/27/2023 [facility] Comment on above: Result Comment: Elec tronically Signed By: Destiney DE LEÓN, Prince Castro\.br\Date and Time Signed: 01/27/23 19:48 EST\.br\Electronically Co-Signed By: Mary Gardner\Date and Time Co-Signed: 01/27/23 15:10 EST Physician Orderon 01-27-2023 Physician Order [id number]# 1.00TIFF [facility] Heart and Vascular Office/Cl inic Noteon [...] artery disease) (I25.10: Atherosclerotic heart disease of [place] coronary artery without angina pectoris) Sarina Villegas [...] hear. Follow up in 6 weeks in [place]. Portions of this record may have been created with voice recognition artificial intelligence software, specifically [employer], [employer] and or [employer]. Substitutions may have occurred due to the inherent limitations of voice recognition and artificial intelligence software. Documentation services were performed after patient or guardian consented to allow [employer] to record this visit. BERTRAM predictive maintenance specialist and provider reviewed before signing. BERTRAM: Abran Nick. Follow-up No qualifying data available Problem List/Past Medical History Ongoing No qualifying data Historical Coronary artery disease Hyperlipidemia Hypertension Hypertension Procedure/Surgical History Cholecystectomy. Medications amlodipine aspirin 81 mg Oral EC Tab citalopram levothyroxine losartan simvastatin Allergies penicillin (Rash) Social History Tobacco Former smoker, quit more than 30 days ago Tobacco Use:., 12/16/2022 Normal [facility] Comment on above: Result Comment: Elec tronically Signed By: Destiney DE LEÓN, Prince Castro\.br\Date and Time Signed: 01/23/23 19:23 EST\.br\Electronically Co-Signed By: Michelle Ncik\.br\Date and Time Co-Signed: 12/16/22 14:43 EDT\.br\Electronically Co-Signed By: Michelle Nick\.br\Date and Time Co-Signed: 12/16/22 14:44 EDT Consent for Treatmenton 11-0 Consent for Treatment [id number]#1 .00TIFF Normal [facility] US Carotid Duplex Bilateralo n 01-05-2023 [...] Criteria Committee. Vascular Medicine 2020; https://journals.rylee pub.com/doi/full/10.1 [id number] Ordering Provider: Prince Cabello FINAL REPORT Dictated: 01/05/2023 10:56 am Carlos Mcmillan MD, V. Signed (Electronic Signature): 01/05/2023 10:56 am Signed by: Carlos Mcmillan MD, V. Transcribed by: SALVATORE Technologist: [place] Normal [facility] Transfer Inon 12-22-2022 Transfer In [id number]#1 .00TIFF [facility] Transfer In [id number]#1 .00TIFF [facility] Insurance Correspondenceon 1 Insurance Correspondence [id number]# 1.00TIFF [facility] Physician Orderon 12-17-2022 Physician Order [id number]# 1.00TIFF [facility] Consent for Treatmenton 11-28 Consent for Treatment [id number]#1 .00TIFF [facility] US THYROIDon 03-30-2022 US THYROID EXAMINATION: US [...] tumor or atypical lymph node TI-RADS: The [employer] TI-RADS committee's white paper recommendations for thyroid lesions classified as TR3 (mildly suspicious) are listed below: > 1.5 cm. Follow-up ultrasound in 1, 3, and 5 years. > 2.5 cm. FNA. J. Am Janelle Radiol 2017;14:587-595. Electronically authenticated by: MICHELE GIBSON Date: 2022-03-30 11:59 Normal [facility] CT NECK ST W CONon 2 [...] CAMILLE CARTER Date: 2022-02-12 18:07 Normal [facility] CBC AUTO DIFFon 01-20-2022 BASO # 0.1 103/ul Normal 0.0-0.1 [facility] Comment on above: Performed By: #### D ATCBC #### [facility] [address] [place] [address] Dr. Cabrera Gifford Basophils/100 WBC (Bld) 0.7 % Normal 0.2-2.0 [facility] Comment on above: Performed By: #### D ATCBC #### [facility] [address] [place] [address] Dr. Cabrera Gifford EO # 0.3 103/ul Normal 0.0-0.7 [facility] Comment on above: Performed By: #### D ATCBC #### [facility] [address] [place] [address] Dr. Cabrera Gifford Eosinophils/100 WBC (Bld) 3.7 % Normal 0.9-7.0 [facility] Comment on above: Performed By: #### D ATCBC #### [facility] [address] [place] [address] Dr. Cabrera Gifford Erythrocyte distribution width (RBC) [Ratio] 12.5 % Normal 11.0-15.0 [facility] Comment on above: Performed By: #### D ATCBC #### [facility] [address] [place] [address] Dr. Cabrera Gifford Hematocrit (Bld) [Volume fraction] 38.9 % Normal 36.0-48.0 [facility] Comment on above: Performed By: #### D ATCBC #### [facility] [address] [place] [address] Dr. Cabrera Gifford Hemoglobin (Bld) [Mass/Vol] 12.8 g/dL Normal 12.0-16.0 [facility] Comment on above: Performed By: #### D ATCBC #### [facility] [address] [place] [address] Dr. Cabrera Gifford IG # 0.02 10e3/ul Normal 0.00-0.03 [facility] Comment on above: Performed By: #### D ATCBC #### [facility] [address] [place] [address] Dr. Cabrera Gifford IG % 0.3 % Normal 0.0-0.5 [facility] Comment on above: Performed By: #### D ATCBC #### [facility] [address] [place] [address] Dr. Cabrera Gifford LYMPH # 1.4 103/ul Normal 1.2-3.8 [facility] Comment on above: Performed By: #### D ATCBC #### [facility] [address] [place] [address] Dr. Cabrera Gifford Lymphocytes/100 WBC (Bld) 20.4 % Critically low 20.5-60.0 [facility] Comment on above: Performed By: #### D ATCBC #### [facility] [address] [place] [address] Dr. Cabrera Gifford MCH (RBC) [Entitic mass] 29.1 pg Normal 26.7-34.0 [facility] Comment on above: Performed By: #### D ATCBC #### [facility] [address] [place] [address] Dr. Cabrera Gifford MCHC (RBC) [Mass/Vol] 32.9 g/dL Normal 29.9-35.2 [facility] Comment on above: Performed By: #### D ATCBC #### [facility] [address] [place] [address] Dr. Cabrera Gifford MCV (RBC) [Entitic vol] 88.4 fL Normal 81.0-99.0 [facility] Comment on above: Performed By: #### D ATCBC #### [facility] [address] [place] [address] Dr. Cabrera Gifford MONO # 0.6 103/ul Normal 0.3-0.8 [facility] Comment on above: Performed By: #### D ATCBC #### [facility] [address] [place] [address] Dr. Cabrera Gifford Monocytes/100 WBC (Bld) 8.2 % Normal 1.7-12.0 [facility] Comment on above: Performed By: #### D ATCBC #### [facility] [address] [place] [address] Dr. Cabrera Gifford NEUT # 4.5 103/ul Normal 1.4-6.5 [facility] Comment on above: Performed By: #### D ATCBC #### [facility] [address] [place] [address] Dr. Cabrera Gifford Neutrophils/100 WBC (Bld) 66.7 % Normal 43.0-75.0 [facility] Comment on above: Performed By: #### D ATCBC #### [facility] [address] [place], [place] [id number] Dr. Cabrera Gifford Platelet mean volume (Bld) [Entitic vol] 10.8 fL Normal 9.5-13.5 [facility] Comment on above: Performed By: #### D ATCBC #### [facility] [address] [place] [address] Dr. Cabrera Gifford PLT 210 103/ul Normal 150-450 [facility] Comment on above: Performed By: #### D ATCBC #### [facility] [address] [place] [address] Dr. Cabrera Gifford RBC 4.40 106/ul Normal 4.20-5.40 [facility] Comment on above: Performed By: #### D ATCBC #### [facility] [address] [place] [address] Dr. Cabrera Gifford WBC 6.8 103/ul Normal 4.0-11.0 [facility] Comment on above: Performed By: #### D ATCBC #### [facility] [address] [place] [address] Dr. Cabrera Gifford EDWIN- BMP WITH LIPIDon 2021 Anion gap [Moles/Vol] 11.8 mmol/L Normal [facility] Comment on above: Performed By: #### D ATBMP #### [facility] [address] [place] [address] Dr. Cabrera Gifford Calcium [Mass/Vol] 9.4 mg/dL Normal 8.5-10.1 [facility] Comment on above: Performed By: #### D ATBMP #### [facility] [address] [place] [address] Dr. Cabrera Gifford Chloride [Moles/Vol] 102 mmol/L Normal 98-107 [facility] Comment on above: Performed By: #### D ATBMP #### [facility] [address] [place] [address] Dr. Cabrera Gifford Cholesterol [Mass/Vol] 161 mg/dL Normal <=200 [facility] Comment on above: Performed By: #### D ATBMP #### [facility] [address] [place] [address] Dr. Cabrera Gifford Cholesterol in HDL [Mass/Vol] 66 mg/dL Critically high 40-60 [facility] Comment on above: Performed By: #### D ATBMP #### [facility] [address] [address] [address] Cabrera Gifford Cholesterol in LDL [Mass/Vol] 77.2 mg/dL Normal [facility] Comment on above: Performed By: #### D ATBMP #### [facility] [address] [address] [address] Cabrera Gifford CO2 [Moles/Vol] 30.9 mmol/L Normal 21.0-32.0 [facility] Comment on above: Performed By: #### D ATBMP #### [facility] [address] [place] [address] Dr. Cabrera Gifford Creatinine [Mass/Vol] 0.79 mg/dL Normal 0.55-1.02 [facility] Comment on above: Performed By: #### D ATBMP #### [facility] [address] [place] [address] Dr. Cabrera Gifford EGFR-AF CANADIAN >60 Normal >=60 [facility] Comment on above: Performed By: #### D ATBMP #### [facility] [address] [place] [address] Dr. Cabrera Gifford EGFR-NON AF CANADIAN >60 Normal >=60 [facility] Comment on above: Performed By: #### D ATBMP #### [facility] [address] [address] [address] Cabrera Gifford Glucose [Mass/Vol] 103 mg/dL Normal 74-106 [facility] Comment on above: Performed By: #### D ATBMP #### [facility] [address] [address] [address] Cabrera Gifford HDL NORMAL > or = 60 mg/dl - LO W CARDIOVASCULAR RISK <40 mg/dl - HIGH CARDIOVASCULAR RISK Normal [facility] Comment on above: Performed By: #### D ATBMP #### [facility] [address] [place] [address] Dr. Cabrera Gifford LDL CALC NORMAL SEE BELOW Normal [facility] Comment on above: Result Comment: <100 mg/dl OPTIMAL 100 - 129 mg/dl NEAR OR ABOVE OPTIMAL 130 - 159 mg/dl BORDERLINE HIGH 160 - 189 mg/dl HIGH >190 mg/dl VERY HIGH Performed By: #### D ATBMP #### [facility] [address] [address] [address] Cabrera Gifford Potassium [Moles/Vol] 3.7 mmol/L Normal 3.5-5.1 [facility] Comment on above: Performed By: #### D ATBMP #### [facility] [address] [address] [address] Cabrera Gifford Sodium [Moles/Vol] 141 mmol/L Normal 136-145 [facility] Comment on above: Performed By: #### D ATBMP #### [facility] [address] [address] [address] Cabrera Gifford Triglyceride [Mass/Vol] 89 mg/dL Normal <=150 [facility] Comment on above: Performed By: #### D ATBMP #### [facility] [address] [address] [address] Cabrera Gifford Urea nitrogen [Mass/Vol] 17.0 mg/dL Normal 7.0-18.0 [facility] Comment on above: Performed By: #### D ATBMP #### [facility] [address] [address] [address] Cabrera Gifford Urea nitrogen/Creatinine [Mass ratio] 21.5 mg/mg Normal [facility] Comment on above: Performed By: #### D ATBMP #### [facility] [address] [address] [address] Cabrera Gifford VLDL CALC 17.8 mg/dL Normal [facility] Comment on above: Performed By: #### D ATBMP #### [facility] [address] [address] [address] Cabrera Gifford MG MAMM SCREEN 3D EVIE CADon 01-20-2022 MG MAMM SCREEN 3D EVIE CAD Patient: SARINA VILLEGAS Exam Date: 01/20/2022 : 1945 Gender:F Ordering : DR TREVOR GUEVARA M.D. Admission #: [id number] Family : Order #: [id number] CLICK HERE TO VIEW EXAM RADIOLOGY REPORT [...] No Treatments None Family Cancers None LOCATION: [facility] BREAST COMPOSITION: Scattered areas fibroglandular density. [...] M.D. on 01/20/2022 at 13:29 Normal [facility] US CAROTID ART BILon 11-23-2 022 [...] by: CAMILLE CARTER Date: 2022-01-20 16:26 Normal [facility] CNCOon 07-10-2018 CNCO Letter Text Normal [facility] CBC and Differentialon 07-07 Abs Baso <0.03 Normal <0.11 [facility] Comment on above: Performed By: #### P TT, NTBNP, HSTNT, CBCDIF, PT, CKCKMB, CMP #### [place] [address] Abs [place] 0.92 k/uL High <0.87 [facility] Comment on above: Performed By: #### P TT, NTBNP, HSTNT, CBCDIF, PT, CKCKMB, CMP #### [place] [address] Abs Neut 9.65 k/uL High 1.45-7.50 [facility] Comment on above: Performed By: #### P TT, NTBNP, HSTNT, CBCDIF, PT, CKCKMB, CMP #### [place] [address] Basophils/100 WBC (Bld) 0.0 % [facility] Comment on above: Performed By: #### P TT, NTBNP, HSTNT, CBCDIF, PT, CKCKMB, CMP #### [place] [address] DTYPE Auto Diff Normal [facility] Comment on above: Performed By: #### P TT, NTBNP, HSTNT, CBCDIF, PT, CKCKMB, CMP #### [place] [address] Eosinophils #/vol (Bld) 0.15 10*3/uL Normal <0.46 [facility] Comment on above: Performed By: #### P TT, NTBNP, HSTNT, CBCDIF, PT, CKCKMB, CMP #### [place] [address] Eosinophils/100 WBC (Bld) 1.2 % Normal [facility] Comment on above: Performed By: #### P TT, NTBNP, HSTNT, CBCDIF, PT, CKCKMB, CMP #### [place] [address] Erythrocyte distribution width Ratio (RBC) 14.6 % Normal 11.5-15.0 [facility] Comment on above: Performed By: #### P TT, NTBNP, HSTNT, CBCDIF, PT, CKCKMB, CMP #### [place] [id number] Hematocrit Volume Fraction (Bld) 38.5 % Normal 36.0-46.0 [facility] Comment on above: Performed By: #### P TT, NTBNP, HSTNT, CBCDIF, PT, CKCKMB, CMP #### [place] [address] Hemoglobin mass conc (Bld) 12.0 g/dL Normal 11.5-15.5 [facility] Comment on above: Performed By: #### P TT, NTBNP, HSTNT, CBCDIF, PT, CKCKMB, CMP #### [place] [address] Lymphocytes #/vol (Bld) 1.66 10*3/uL Normal 1.00-4.00 [facility] Comment on above: Performed By: #### P TT, NTBNP, HSTNT, CBCDIF, PT, CKCKMB, CMP #### [place] [id number] Lymphocytes/100 WBC (Bld) 13.4 % Normal [facility] Comment on above: Performed By: #### P TT, NTBNP, HSTNT, CBCDIF, PT, CKCKMB, CMP #### [place] [id number] MCH Entitic mass (RBC) 26.8 pG Normal 26.0-34.0 [facility] Comment on above: Performed By: #### P TT, NTBNP, HSTNT, CBCDIF, PT, CKCKMB, CMP #### [address] MCHC mass conc (RBC) 31.2 g/dL Normal 30.5-36.0 [facility] Comment on above: Performed By: #### P TT, NTBNP, HSTNT, CBCDIF, PT, CKCKMB, CMP #### [place] [phone] MCV Entitic volume (RBC) 86.1 fL Normal 80.0-100.0 [facility] Comment on above: Performed By: #### P TT, NTBNP, HSTNT, CBCDIF, PT, CKCKMB, CMP #### [place] [address] Monocytes/100 WBC (Bld) 7.4 % Normal [facility] Comment on above: Performed By: #### P TT, NTBNP, HSTNT, CBCDIF, PT, CKCKMB, CMP #### [place] [phone] Neutrophils/100 WBC (Bld) 78.0 % Normal [facility] Comment on above: Performed By: #### P TT, NTBNP, HSTNT, CBCDIF, PT, CKCKMB, CMP #### [place] [phone] Platelet mean volume Entitic volume (Bld) 9.9 fL Normal 9.0-12.7 [facility] Comment on above: Performed By: #### P TT, NTBNP, HSTNT, CBCDIF, PT, CKCKMB, CMP #### [place] [phone] Platelets #/vol (Bld) 241 10*3/uL Normal 150-400 [facility] Comment on above: Performed By: #### P TT, NTBNP, HSTNT, CBCDIF, PT, CKCKMB, CMP #### [place] [phone] RBC #/vol (Bld) 4.47 10*6/uL Normal 3.90-5.20 [facility] Comment on above: Performed By: #### P TT, NTBNP, HSTNT, CBCDIF, PT, CKCKMB, CMP #### [place] [address] WBC #/vol (Bld) 12.38 10*3/uL High 3.70-11.00 [facility] Comment on above: Performed By: #### P TT, NTBNP, HSTNT, CBCDIF, PT, CKCKMB, CMP #### [place] [address] CNDSon 07-07-2018 CNDS HNO ID: [id number] Author: Uzma Graff Service: General Internal Medicine [...] Out FOLLOW-UP APPOINTMENTS ALREADY SCHEDULED WITH A [facility] PROVIDER: Future Appointments Date Time Provider [...] July 07, 2018 TIME: 9:48 AM Normal [facility] CONSULT PROGon 07-07-2018 Protein mass conc HNO ID: [id number] Author: Clif Dhillon Service: Hypertension AND Nephrology [...] in 3-4 weeks ? Clif Jarvis MD [facility] [place] Normal [facility] Comp Metabolic Panelon 07-07 Albumin mass conc 3.6 g/dL Normal 3.5-5.0 [facility] Comment on above: Performed By: #### P TT, NTBNP, HSTNT, CBCDIF, PT, CKCKMB, CMP #### [place] [phone] ALP enzyme act/vol 83 U/L Normal 34-123 [facility] Comment on above: Performed By: #### P TT, NTBNP, HSTNT, CBCDIF, PT, CKCKMB, CMP #### [place] [phone] ALT enzyme act/vol 12 U/L Normal 0-45 [facility] Comment on above: Performed By: #### P TT, NTBNP, HSTNT, CBCDIF, PT, CKCKMB, CMP #### [place] [address] Anion gap molar conc 15 mmol/L Normal 9-18 [facility] Comment on above: Performed By: #### P TT, NTBNP, HSTNT, CBCDIF, PT, CKCKMB, CMP #### [place] [phone] AST enzyme act/vol 10 U/L Normal 7-40 [facility] Comment on above: Performed By: #### P TT, NTBNP, HSTNT, CBCDIF, PT, CKCKMB, CMP #### [place] [phone] Bilirubin mass conc 0.3 mg/dL Normal 0.2-1.3 [facility] Comment on above: Performed By: #### P TT, NTBNP, HSTNT, CBCDIF, PT, CKCKMB, CMP #### [place] [phone] Calcium mass conc 8.7 mg/dL Normal 8.5-10.5 [facility] Comment on above: Performed By: #### P TT, NTBNP, HSTNT, CBCDIF, PT, CKCKMB, CMP #### [place] [phone] Chloride molar conc 90 mmol/L Low 98-110 [facility] Comment on above: Performed By: #### P TT, NTBNP, HSTNT, CBCDIF, PT, CKCKMB, CMP #### [place] [phone] CO2 molar conc 33 mmol/L High 23-32 [facility] Comment on above: Performed By: #### P TT, NTBNP, HSTNT, CBCDIF, PT, CKCKMB, CMP #### [place] [phone] Creatinine mass conc 1.54 mg/dL High 0.70-1.40 [facility] Comment on above: Performed By: #### P TT, NTBNP, HSTNT, CBCDIF, PT, CKCKMB, CMP #### [place] [phone] eGFR- Amer. 40 Low >60 [facility] Comment on above: Performed By: #### P TT, NTBNP, HSTNT, CBCDIF, PT, CKCKMB, CMP #### [place] [phone] GFR/1.73 sq M predicted among non-blacks MDRD vol rate/area (S/P/Bld) 33 . Low >60 [facility] Comment on above: Performed By: #### P TT, NTBNP, HSTNT, CBCDIF, PT, CKCKMB, CMP #### [place] [phone] Glucose mass conc 88 mg/dL Normal 65-100 [facility] Comment on above: Performed By: #### P TT, NTBNP, HSTNT, CBCDIF, PT, CKCKMB, CMP #### [place] [phone] Potassium molar conc 3.9 mmol/L Normal 3.5-5.0 [facility] Comment on above: Performed By: #### P TT, NTBNP, HSTNT, CBCDIF, PT, CKCKMB, CMP #### [place] [phone] Protein mass conc 6.3 g/dL Normal 6.0-8.4 [facility] Comment on above: Performed By: #### P TT, NTBNP, HSTNT, CBCDIF, PT, CKCKMB, CMP #### [place] [phone] Sodium molar conc 138 mmol/L Normal 132-148 [facility] Comment on above: Performed By: #### P TT, NTBNP, HSTNT, CBCDIF, PT, CKCKMB, CMP #### [place] [phone] Urea nitrogen mass conc 67 mg/dL High 8-25 [facility] Comment on above: Performed By: #### P TT, NTBNP, HSTNT, CBCDIF, PT, CKCKMB, CMP #### [place] [phone] Ferritinon 07-07-2018 Ferritin mass conc 81.6 ng/mL Normal 14.7-205.1 [facility] Comment on above: Performed By: #### P TT, NTBNP, HSTNT, CBCDIF, PT, CKCKMB, CMP #### [place] [phone] Iron and TIBCon 07-07-2018 Iron mass conc 86 ug/dL Normal 35-150 [facility] Comment on above: Performed By: #### P TT, NTBNP, HSTNT, CBCDIF, PT, CKCKMB, CMP #### [place] [phone] TIBC 330 ug/dL Normal 250-450 [facility] Comment on above: Performed By: #### P TT, NTBNP, HSTNT, CBCDIF, PT, CKCKMB, CMP #### [place] [phone] Transferrin Saturatn 26 % Normal 20-55 [facility] Comment on above: Performed By: #### P TT, NTBNP, HSTNT, CBCDIF, PT, CKCKMB, CMP #### [place] [phone] NURSING PROGon 07-07-2018 Protein mass conc HNO ID: [id number] Author: Neris CabreraRn) ZAK English Service: Abstract Author Type: Registered Nurse Type: Nursing Progress Note Filed: 07/07/2018 3:41 PM Note Text: Nursing Progress Note Patient Name: Sarina Lovett Patient Location: [place] [address]/[id number] Daily Note: Discharge instructions given with verbal understanding. Some prescriptions filled here, other paper prescriptions handed to patient she said she has some of them filled at home and will double check before filling them again. Tele and IV both d/c'd. Patient wheeled down by volunteers to front entrance. All belongings returned. This note was completed by: Neris English RN Normal [facility] Protein mass conc HNO ID: [id number] Author: Neris Payton) ZAK English Service: Abstract Author Type: Registered Nurse Type: Nursing Progress Note Filed: 07/07/2018 12:38 PM Note Text: Nursing Progress Note Patient Name: Sarina Lovett Patient Location: [address]/WA5A-[id number] Daily Note: 1238: re paged Dr Dhillon: [id number] Barry LOVETT Patient is all ready for discharge. Please call me to let me know if you approve. Spoke with resident he said we have to ask you. Thank you. [place] [phone]: [id number] at bedside, would like to speak with you regarding d/c. Please call us. Thank you. Neris Young This note was completed by: Neris English RN [facility] PLAN OF CAREon 07-07-2018 PLAN OF CARE HNO ID: [id number] Author: Kathy Aguero ([employer]) Service: Pharmacy Author Type: Radiology Scheduler Type: Plan of Care Filed: 07/11/2018 11:29 [...] or your Primary Care Provider. Kathy Aguero ([employer]) PAGER: [phone] July 11, 2018 11:29 AM [facility] PLAN OF CARE HNO ID: [id number] Author: Kathy Aguero ([employer]) Service: Pharmacy Author Type: Radiology Scheduler Type: Plan of Care Filed: 07/07/2018 12:48 PM Note Text: Pharmacy Discharge Medication Service: This patient has elected to receive their discharge prescriptions through the [facility] Bedside Prescription Delivery program. The prescriptions are currently being processed. A follow-up note will be entered once the prescriptions have been filled and delivered to the patient. Please contact me with any questions or updates to the patient's discharge medications. 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 Patient to use [facility] Bedside Delivery - YES Insurance Information as follows: 2. Insurance card on file - YES 3. Credit card for payment - N/A [facility] PTH, [place] 07-07-2018 PTH, Intact 78 pg/mL High 15-65 [facility] Comment on above: Performed By: #### P TT, NTBNP, HSTNT, CBCDIF, PT, CKCKMB, CMP #### [place] [phone] Vitamin D 25 Hydroxyon 07-07 Vitamin D 25 Hydroxy 19.1 ng/mL Low 31.0-80.0 [facility] Comment on above: Result Comment: Clas sification of 25 OH Vitamin D status: Insufficiency/Moderate Deficiency: < or = 30 ng/mL Sufficiency/Optimal Levels: 31 to 80 ng/mL Toxicity: > 100 ng/mL Test performed by chemiluminescent immunoassay. Performed By: #### P TT, NTBNP, HSTNT, CBCDIF, PT, CKCKMB, CMP #### [place] [phone] Albumin/Creat Ratioon 2018 Albumin Urine Random 190.3 mg/L High 0.0-23.0 [facility] Comment on above: Performed By: #### P TT, NTBNP, HSTNT, CBCDIF, PT, CKCKMB, CMP #### [place] [phone] Albumin/Creat Ratio 582 mg/g High 0-30 [facility] Comment on above: Result Comment: 30 t o 300 mg/g indicates an increased risk for diabetic nephropathy. Greater than 300 mg/g is consistent with clinical nephropathy. (Am J Kidney Disease 1995, 25:107) Performed By: #### P TT, NTBNP, HSTNT, CBCDIF, PT, CKCKMB, CMP #### [place] [phone] Creatinine,Urine,Ran 32.7 mg/dL Normal 20-300 [facility] Comment on above: Performed By: #### P TT, NTBNP, HSTNT, CBCDIF, PT, CKCKMB, CMP #### [place] [phone] Basic Metabolic Panlon 07-06 Anion gap molar conc 12 mmol/L Normal 9-18 [facility] Comment on above: Performed By: #### P TT, NTBNP, HSTNT, CBCDIF, PT, CKCKMB, CMP #### [place] [address] Calcium mass conc 8.8 mg/dL Normal 8.5-10.5 [facility] Comment on above: Performed By: #### P TT, NTBNP, HSTNT, CBCDIF, PT, CKCKMB, CMP #### [place] [address] Chloride molar conc 90 mmol/L Low 98-110 [facility] Comment on above: Performed By: #### P TT, NTBNP, HSTNT, CBCDIF, PT, CKCKMB, CMP #### [place] [address] CO2 molar conc 35 mmol/L High 23-32 [facility] Comment on above: Performed By: #### P TT, NTBNP, HSTNT, CBCDIF, PT, CKCKMB, CMP #### [place] [address] Creatinine mass conc 1.51 mg/dL High 0.70-1.40 [facility] Comment on above: Performed By: #### P TT, NTBNP, HSTNT, CBCDIF, PT, CKCKMB, CMP #### [place] [phone] eGFR- Amer. 41 Low >60 [facility] Comment on above: Performed By: #### P TT, NTBNP, HSTNT, CBCDIF, PT, CKCKMB, CMP #### [place] [phone] GFR/1.73 sq M predicted among non-blacks MDRD vol rate/area (S/P/Bld) 34 . Low >60 [facility] Comment on above: Performed By: #### P TT, NTBNP, HSTNT, CBCDIF, PT, CKCKMB, CMP #### [place] [phone] Glucose mass conc 219 mg/dL High 65-100 [facility] Comment on above: Performed By: #### P TT, NTBNP, HSTNT, CBCDIF, PT, CKCKMB, CMP #### [place] [phone] Potassium molar conc 4.6 mmol/L Normal 3.5-5.0 [facility] Comment on above: Performed By: #### P TT, NTBNP, HSTNT, CBCDIF, PT, CKCKMB, CMP #### [place] [phone] Sodium molar conc 137 mmol/L Normal 132-148 [facility] Comment on above: Performed By: #### P TT, NTBNP, HSTNT, CBCDIF, PT, CKCKMB, CMP #### [place] [phone] Urea nitrogen mass conc 63 mg/dL High 8-25 [facility] Comment on above: Performed By: #### P TT, NTBNP, HSTNT, CBCDIF, PT, CKCKMB, CMP #### [place] [phone] CASE MANAGEMon 07-06-2018 CASE MANAGEM HNO ID: [id number] Author: Bro Wood (Sw) Service: Care Management Author Type: Building Associate Type: Care Mgt Progress Note Filed: 07/06/2018 [...] Moderate Degree (Hcc) Attendees Present at Rounds: State Patrol Officer: Yoselin Nurse Histology Supervisor/Subsurface Augmentee Operator Nurse Histology Supervisor: Betsy Building Associate: Bro Staff Nurse: Neris Needs Discussed on [...] July 06, 2018 TIME: 11:06 AM CSN: [id number] [facility] CONSULTon 07-06-2018 CONSULT HNO ID: [id number] Author: Clif Dhillon Service: General Internal Medicine [...] any new complaints. Patient doesn't see any director of market intelligence currently. Previously came to the hospital in February . She also has history of contrast nephropathy. She doesn't remember her medications. Doesn't recall any diuretics. Baseline creatinine around 1.5 , around 1.4 to 1.5 range, previously higher. History of contrast nephropathy. CYTOMETRY TECHNOLOGIST med shows 40 lasix PO. PAST MEDICAL 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 - Aortic valve disorders - Cancer (HCC) - Coronary atherosclerosis of unspecified type of vessel, salam[place]of or graft Coronary Atherosclerosis - Diabetes (HCC) [...] iron study Clif Jarvis MD [facility] Normal [facility] Chloride,Urine,Marko 2018 Chloride,Urine,[place] 69 mmol/L Normal 16-250 [facility] Comment on above: Performed By: #### P TT, NTBNP, HSTNT, CBCDIF, PT, CKCKMB, CMP #### [place] [id number] [place] [address] PROGRESSon 07-06-2018 Protein mass conc HNO ID: [id number] Author: Taina Ware Service: ? Author Type: Grinder Hand Type: Progress Notes Filed: 07/06/2018 9:54 AM [...] Ware RDMS July 06, 2018 9:53 AM [facility] Protein mass conc HNO ID: [id number] Author: Uzma Graff Service: General Internal Medicine [...] last 24 hours. SIGNATURE: Uzma Graff MD [phone] Pager: [facility] Potassium,Urine,Marko 05-09 -2019 Potassium,Urine,[place] 23.0 mmol/L Normal 10-160 [facility] Comment on above: Performed By: #### P TT, NTBNP, HSTNT, CBCDIF, PT, CKCKMB, CMP #### [place] [phone] Protein/Creatinine Ratioon 0 07-06-2018 Creatinine,Urine,Ran 33.3 mg/dL Normal 20-300 [facility] Comment on above: Performed By: #### P TT, NTBNP, HSTNT, CBCDIF, PT, CKCKMB, CMP #### [place] [address] Protein mass conc (U) 34 mg/dL High 0-20 [facility] Comment on above: Performed By: #### P TT, NTBNP, HSTNT, CBCDIF, PT, CKCKMB, CMP #### [place] [phone] Protein/Creatinine Ratio 1.0 High <0.2 [facility] Comment on above: Performed By: #### P TT, NTBNP, HSTNT, CBCDIF, PT, CKCKMB, CMP #### [place] [address] Sodium,Urine,Randomon 2018 Sodium molar conc (U) 91 mmol/L Normal 14-216 [facility] Comment on above: Performed By: #### P TT, NTBNP, HSTNT, CBCDIF, PT, CKCKMB, CMP #### [place] [address] US KIDNEY/BLADDERon 07-07-19 19 US KIDNEY/BLADDER * [...] Additional findings as detailed in the report. Chef De Froid: JENNIFER Transcribe Date/Time: Jul 06 2018 2:20P Dictated by : MANISHA CONTRERAS MD This examination was interpreted and the report reviewed and electronically signed by: MANISHA CONTRERAS MD on Jul 06 2018 2:22PM EST [id number] Normal [facility] Urea Nitrogen,Ur,Ranon 07-06 Urea nitrogen mass conc 444 mg/dL Normal 140-1500 [facility] Comment on above: Performed By: #### P TT, NTBNP, HSTNT, CBCDIF, PT, CKCKMB, CMP #### [place] [address] Urinalysis with Microscopico n 07-06-2018 Bacteria LM.HPF #/area (Urine sed) Rare Critically abnormal Negative [facility] Comment on above: Performed By: #### P TT, NTBNP, HSTNT, CBCDIF, PT, CKCKMB, CMP #### [place] [address] Bilirubin, Urine Negative Normal Negative [facility] Comment on above: Performed By: #### P TT, NTBNP, HSTNT, CBCDIF, PT, CKCKMB, CMP #### [place] [address] Clarity Nom (U) Clear Normal Clear [facility] Comment on above: Performed By: #### P TT, NTBNP, HSTNT, CBCDIF, PT, CKCKMB, CMP #### [place] [address] Color Nom (U) Yellow Normal Yellow [facility] Comment on above: Performed By: #### P TT, NTBNP, HSTNT, CBCDIF, PT, CKCKMB, CMP #### [place] [address] Comments SEE COMMENT Normal [facility] Comment on above: Result Comment: Micr oscopic Examination Performed Performed By: #### P TT, NTBNP, HSTNT, CBCDIF, PT, CKCKMB, CMP #### [place] [address] Epithelial cells LM.HPF #/area (Urine sed) SEE COMMENT Critically abnormal Negative [facility] Comment on above: Result Comment: Rare Squamous Epithelial Cells Performed By: #### P TT, NTBNP, HSTNT, CBCDIF, PT, CKCKMB, CMP #### [place] [address] Glucose Ql (U) Negative Normal Negative [facility] Comment on above: Performed By: #### P TT, NTBNP, HSTNT, CBCDIF, PT, CKCKMB, CMP #### [place] [address] Hemoglobin/Blood,Ur Negative Normal Negative [facility] Comment on above: Performed By: #### P TT, NTBNP, HSTNT, CBCDIF, PT, CKCKMB, CMP #### [place] [address] Ketones Ql (U) Negative Normal Negative [facility] Comment on above: Performed By: #### P TT, NTBNP, HSTNT, CBCDIF, PT, CKCKMB, CMP #### [place] [address] Leukest Small Critically abnormal Negative [facility] Comment on above: Performed By: #### P TT, NTBNP, HSTNT, CBCDIF, PT, CKCKMB, CMP #### [place] [address] Mucus Ql (Urine sed) Present Normal [facility] Comment on above: Performed By: #### P TT, NTBNP, HSTNT, CBCDIF, PT, CKCKMB, CMP #### [place] [address] Nitrite Ql (U) Negative Normal Negative [facility] Comment on above: Performed By: #### P TT, NTBNP, HSTNT, CBCDIF, PT, CKCKMB, CMP #### [place] [address] pH (Bld) 6.0 Normal 5.0-8.0 [facility] Comment on above: Performed By: #### P TT, NTBNP, HSTNT, CBCDIF, PT, CKCKMB, CMP #### [place] [address] Protein mass conc (U) 30 mg/dL Critically abnormal Negative [facility] Comment on above: Performed By: #### P TT, NTBNP, HSTNT, CBCDIF, PT, CKCKMB, CMP #### [place] [address] RBC #/vol (U) Rare Critically abnormal Negative [facility] Comment on above: Performed By: #### P TT, NTBNP, HSTNT, CBCDIF, PT, CKCKMB, CMP #### [place] [address] Specific [place], Ur 1.011 Normal 1.005-1.030 [facility] Comment on above: Performed By: #### P TT, NTBNP, HSTNT, CBCDIF, PT, CKCKMB, CMP #### [place] [address] Urobilinogen Qn (U) <2.0 Normal <2.0 [facility] Comment on above: Performed By: #### P TT, NTBNP, HSTNT, CBCDIF, PT, CKCKMB, CMP #### [place] [address] WBC #/vol (Bld) Rare Critically abnormal Negative [facility] Comment on above: Performed By: #### P TT, NTBNP, HSTNT, CBCDIF, PT, CKCKMB, CMP #### [place] [address] PROGRESSon 07-05-2018 Protein mass conc HNO ID: [id number] Author: Geeta (Rn) ZAK Bradshaw Service: ? [...] RN July 05, 2018 3:08 PM Normal [facility] Protein mass conc HNO ID: [id number] Author: Uzma Graff Service: General Internal Medicine [...] -- 06/29/18 1545 vte current anticoag therapy (la,dc) 06/29/18 1545 pneumatic compression stockings (la,dc) 06/29/18 1545 activity - mobilize patient (la,dc) VTE Prophylaxis: SIGNATURE: Lisa Toney APRN.BHARAT PATIENT NAME: Sarina [place] DATE: July 05, 2018 TIME: 2:04 PM PAGER/CONTACT #: [facility] CASE MANAGEMon 07-04-2018 CASE MANAGEM HNO ID: [id number] Author: Bro Wood (Sw) Service: Care Management Author Type: Building Associate Type: Care Mgt Progress Note Filed: 07/04/2018 [...] Failure (Chf) (Hcc) Attendees Present at Rounds: State Patrol Officer: Yoselin Nurse Histology Supervisor/Subsurface Augmentee Operator Nurse Histology Supervisor: Arlin Building Associate: Bro Staff Nurse: Toni Needs Discussed on [...] July 04, 2018 TIME: 11:27 AM CSN: [id number] [facility] CBC and Differentialon 07-04 Abs Baso <0.03 Normal <0.11 [facility] Comment on above: Performed By: #### P TT, NTBNP, HSTNT, CBCDIF, PT, CKCKMB, CMP #### [place] [address] Abs [place] 0.12 k/uL Normal <0.87 [facility] Comment on above: Performed By: #### P TT, NTBNP, HSTNT, CBCDIF, PT, CKCKMB, CMP #### [place] [address] Abs Neut 6.90 k/uL Normal 1.45-7.50 [facility] Comment on above: Performed By: #### P TT, NTBNP, HSTNT, CBCDIF, PT, CKCKMB, CMP #### [place] [address] Basophils/100 WBC (Bld) 0.0 % Normal [facility] Comment on above: Performed By: #### P TT, NTBNP, HSTNT, CBCDIF, PT, CKCKMB, CMP #### [place] [address] DTYPE Auto Diff Normal [facility] Comment on above: Performed By: #### P TT, NTBNP, HSTNT, CBCDIF, PT, CKCKMB, CMP #### [place] [address] Eosinophils #/vol (Bld) 10*3/uL Normal <0.46 [facility] Comment on above: Performed By: #### P TT, NTBNP, HSTNT, CBCDIF, PT, CKCKMB, CMP #### [place] [address] Eosinophils/100 WBC (Bld) 0.0 % Normal [facility] Comment on above: Performed By: #### P TT, NTBNP, HSTNT, CBCDIF, PT, CKCKMB, CMP #### [place] [address] Erythrocyte distribution width Ratio (RBC) 14.5 % Normal 11.5-15.0 [facility] Comment on above: Performed By: #### P TT, NTBNP, HSTNT, CBCDIF, PT, CKCKMB, CMP #### [place] [address] Hematocrit Volume Fraction (Bld) 32.8 % Low 36.0-46.0 [facility] Comment on above: Performed By: #### P TT, NTBNP, HSTNT, CBCDIF, PT, CKCKMB, CMP #### [place] [address] Hemoglobin mass conc (Bld) 10.1 g/dL Low 11.5-15.5 [facility] Comment on above: Performed By: #### P TT, NTBNP, HSTNT, CBCDIF, PT, CKCKMB, CMP #### [place] [address] Lymphocytes #/vol (Bld) 0.41 10*3/uL Low 1.00-4.00 [facility] Comment on above: Performed By: #### P TT, NTBNP, HSTNT, CBCDIF, PT, CKCKMB, CMP #### [place] [address] Lymphocytes/100 WBC (Bld) 5.5 % Normal [facility] Comment on above: Performed By: #### P TT, NTBNP, HSTNT, CBCDIF, PT, CKCKMB, CMP #### [place] [address] MCH Entitic mass (RBC) 26.7 pG Normal 26.0-34.0 [facility] Comment on above: Performed By: #### P TT, NTBNP, HSTNT, CBCDIF, PT, CKCKMB, CMP #### [place] [address] MCHC mass conc (RBC) 30.8 g/dL Normal 30.5-36.0 [facility] Comment on above: Performed By: #### P TT, NTBNP, HSTNT, CBCDIF, PT, CKCKMB, CMP #### [place] [id number] MCV Entitic volume (RBC) 86.8 fL Normal 80.0-100.0 [facility] Comment on above: Performed By: #### P TT, NTBNP, HSTNT, CBCDIF, PT, CKCKMB, CMP #### [place] [phone] Monocytes/100 WBC (Bld) 1.6 % Normal [facility] Comment on above: Performed By: #### P TT, NTBNP, HSTNT, CBCDIF, PT, CKCKMB, CMP #### [place] [phone] Neutrophils/100 WBC (Bld) 92.9 % Normal [facility] Comment on above: Performed By: #### P TT, NTBNP, HSTNT, CBCDIF, PT, CKCKMB, CMP #### [place] [phone] Platelet mean volume Entitic volume (Bld) 10.2 fL Normal 9.0-12.7 [facility] Comment on above: Performed By: #### P TT, NTBNP, HSTNT, CBCDIF, PT, CKCKMB, CMP #### [place] [phone] Platelets #/vol (Bld) 205 10*3/uL Normal 150-400 [facility] Comment on above: Performed By: #### P TT, NTBNP, HSTNT, CBCDIF, PT, CKCKMB, CMP #### [place] [phone] RBC #/vol (Bld) 3.78 10*6/uL Low 3.90-5.20 [facility] Comment on above: Performed By: #### P TT, NTBNP, HSTNT, CBCDIF, PT, CKCKMB, CMP #### [place] [phone] WBC #/vol (Bld) 7.43 10*3/uL Normal 3.70-11.00 [facility] Comment on above: Performed By: #### P TT, NTBNP, HSTNT, CBCDIF, PT, CKCKMB, CMP #### [place] [address] Comp Metabolic Panelon 07-04 Albumin mass conc 3.5 g/dL Normal 3.5-5.0 [facility] Comment on above: Performed By: #### P TT, NTBNP, HSTNT, CBCDIF, PT, CKCKMB, CMP #### [place] [phone] ALP enzyme act/vol 101 U/L Normal 34-123 [facility] Comment on above: Performed By: #### P TT, NTBNP, HSTNT, CBCDIF, PT, CKCKMB, CMP #### [place] [phone] ALT enzyme act/vol 14 U/L Normal 0-45 [facility] Comment on above: Performed By: #### P TT, NTBNP, HSTNT, CBCDIF, PT, CKCKMB, CMP #### [place] [phone] Anion gap molar conc 14 mmol/L Normal 9-18 [facility] Comment on above: Performed By: #### P TT, NTBNP, HSTNT, CBCDIF, PT, CKCKMB, CMP #### [place] [phone] AST enzyme act/vol 11 U/L Normal 7-40 [facility] Comment on above: Performed By: #### P TT, NTBNP, HSTNT, CBCDIF, PT, CKCKMB, CMP #### [place] [phone] Bilirubin mass conc 0.2 mg/dL Normal 0.2-1.3 [facility] Comment on above: Performed By: #### P TT, NTBNP, HSTNT, CBCDIF, PT, CKCKMB, CMP #### [place] [phone] Calcium mass conc 8.4 mg/dL Low 8.5-10.5 [facility] Comment on above: Performed By: #### P TT, NTBNP, HSTNT, CBCDIF, PT, CKCKMB, CMP #### [place] [phone] Chloride molar conc 95 mmol/L Low 98-110 [facility] Comment on above: Performed By: #### P TT, NTBNP, HSTNT, CBCDIF, PT, CKCKMB, CMP #### [place] [phone] CO2 molar conc 28 mmol/L Normal 23-32 [facility] Comment on above: Performed By: #### P TT, NTBNP, HSTNT, CBCDIF, PT, CKCKMB, CMP #### [place] [phone] Creatinine mass conc 1.44 mg/dL High 0.70-1.40 [facility] Comment on above: Performed By: #### P TT, NTBNP, HSTNT, CBCDIF, PT, CKCKMB, CMP #### [place] [phone] eGFR- Amer. 43 Low >60 [facility] Comment on above: Performed By: #### P TT, NTBNP, HSTNT, CBCDIF, PT, CKCKMB, CMP #### [place] [phone] GFR/1.73 sq M predicted among non-blacks MDRD vol rate/area (S/P/Bld) 36 . Low >60 [facility] Comment on above: Performed By: #### P TT, NTBNP, HSTNT, CBCDIF, PT, CKCKMB, CMP #### [place] [phone] Glucose mass conc 328 mg/dL High 65-100 [facility] Comment on above: Performed By: #### P TT, NTBNP, HSTNT, CBCDIF, PT, CKCKMB, CMP #### [place] [phone] Potassium molar conc 4.4 mmol/L Normal 3.5-5.0 [facility] Comment on above: Performed By: #### P TT, NTBNP, HSTNT, CBCDIF, PT, CKCKMB, CMP #### [place] [phone] Protein mass conc 6.3 g/dL Normal 6.0-8.4 [facility] Comment on above: Performed By: #### P TT, NTBNP, HSTNT, CBCDIF, PT, CKCKMB, CMP #### [place] [phone] Sodium molar conc 137 mmol/L Normal 132-148 [facility] Comment on above: Performed By: #### P TT, NTBNP, HSTNT, CBCDIF, PT, CKCKMB, CMP #### [place] [phone] Urea nitrogen mass conc 52 mg/dL High 8-25 [facility] Comment on above: Performed By: #### P TT, NTBNP, HSTNT, CBCDIF, PT, CKCKMB, CMP #### [place] [phone] NUTRITIONon 07-04-2018 NUTRITION HNO ID: [id number] Author: Laura Lovett Service: Nutrition Therapy Author [...] Resting Metabolic Rate: 1292 Estimated kilocalorie needs: 7575-7778 kilocalories determined by 25-30 kcal/kg Estimated protein needs: 74-89 grams determined by 1.0-1.2 g/kg Dosing weight Estimated fluid needs: 0772-0857 milliliters based on 1 mL per kcal [...] Date 07/03/18699 - 07/04/1865807/04/18699 - 07/05/18658 Shift 6987-5634 1144-3900 6345-8099 24 Hour Total 1413-3446 0904-1680 4361-5295 24 Hour Total INTAKE PO 700 700 PO 700 700 Shift Total 700 700 OUTPUT Urine 783 007 4572 1800 Void (ml) 229 794 3867 1800 Urine Not Saved. 3 x 1 x 4 x # of BMs Number of BMs 3 x 1 x 4 x Shift Total 054 978 8024 1800 Weight (kg) 75.3 75.3 74 74 74 74 74 74 MNT Billing Type: Initial Assess/15 min 4 units SIGNATURE: Laura Lovett, MS,RD,LD,CNSC PATIENT NAME: Sarina Lovett DATE: July 04, 2018 TIME: 1:17 PM PAGER: [phone] [facility] PROGRESSon 07-04-2018 Protein mass conc HNO ID: [id number] Author: Uzma Graff Service: General Internal Medicine [...] -- 06/29/18 1545 vte current anticoag therapy ([place] 06/29/18 1545 pneumatic compression stockings ([place] 06/29/18 1545 activity - mobilize patient ([place] VTE Prophylaxis: SIGNATURE: Lisa Toney APRN.VEHICLE SERVICE AGENT PATIENT NAME: Sarina Lovett DATE: July 04, 2018 TIME: 5:09 PM PAGER/CONTACT #: [facility] CONSULT PROGon 07-03-2018 Protein mass conc HNO ID: [id number] Author: Deanna Yoo Service: Cardiovascular Medicine Author [...] mg ORAL DAILY 06/29/18 1531 -- @LP PLINK([id number])@ VTE Prophylaxis: VTE prophylaxis appropriate SIGNATURE: Deanna Yoo APRN.CNP PATIENT NAME: Sarina Lovett DATE: July 03, 2018 TIME: 10:17 AM PAGER/CONTACT #: [facility] PROGRESSon 07-03-2018 Protein mass conc HNO ID: [id number] Author: Uzma Graff Service: General Internal Medicine [...] -- 06/29/18 1545 vte current anticoag therapy ([place] 06/29/18 1545 pneumatic compression stockings ([place] 06/29/18 1545 activity - mobilize [place] ([place] VTE Prophylaxis: SIGNATURE: Lisa Toney APRN.CNP PATIENT NAME: Sarina Lovett DATE: July 03, 2018 TIME: 11:28 AM PAGER/CONTACT #: Normal [facility] CBC and Differentialon 07-02 Abs Baso <0.03 Normal <0.11 [facility] Comment on above: Performed By: #### P TT, NTBNP, HSTNT, CBCDIF, PT, CKCKMB, CMP #### [place] [id number] [place] [address] Abs [place]age 0.22 k/uL Normal <0.87 [facility] Comment on above: Performed By: #### P TT, NTBNP, HSTNT, CBCDIF, PT, CKCKMB, CMP #### [address] [address] Abs Neut 5.38 k/uL Normal 1.45-7.50 [facility] Comment on above: Performed By: #### P TT, NTBNP, HSTNT, CBCDIF, PT, CKCKMB, CMP #### [place] [phone] Basophils/100 WBC (Bld) 0.0 % Normal [facility] Comment on above: Performed By: #### P TT, NTBNP, HSTNT, CBCDIF, PT, CKCKMB, CMP #### [place] [phone] DTYPE Auto Diff Normal [facility] Comment on above: Performed By: #### P TT, NTBNP, HSTNT, CBCDIF, PT, CKCKMB, CMP #### [place] [address] Eosinophils #/vol (Bld) 10*3/uL Normal <0.46 [facility] Comment on above: Performed By: #### P TT, NTBNP, HSTNT, CBCDIF, PT, CKCKMB, CMP #### [address] Eosinophils/100 WBC (Bld) 0.0 % Normal [facility] Comment on above: Performed By: #### P TT, NTBNP, HSTNT, CBCDIF, PT, CKCKMB, CMP #### [place] [phone] Erythrocyte distribution width Ratio (RBC) 14.5 % Normal 11.5-15.0 [facility] Comment on above: Performed By: #### P TT, NTBNP, HSTNT, CBCDIF, PT, CKCKMB, CMP #### [place] [phone] Hematocrit Volume Fraction (Bld) 31.0 % Low 36.0-46.0 [facility] Comment on above: Performed By: #### P TT, NTBNP, HSTNT, CBCDIF, PT, CKCKMB, CMP #### [place] [address] Hemoglobin mass conc (Bld) 9.4 g/dL Low 11.5-15.5 [facility] Comment on above: Performed By: #### P TT, NTBNP, HSTNT, CBCDIF, PT, CKCKMB, CMP #### [place] [address] Lymphocytes #/vol (Bld) 0.32 10*3/uL Low 1.00-4.00 [facility] Comment on above: Performed By: #### P TT, NTBNP, HSTNT, CBCDIF, PT, CKCKMB, CMP #### [place] [address] Lymphocytes/100 WBC (Bld) 5.4 % Normal [facility] Comment on above: Performed By: #### P TT, NTBNP, HSTNT, CBCDIF, PT, CKCKMB, CMP #### [place] [address] MCH Entitic mass (RBC) 26.6 pG Normal 26.0-34.0 [facility] Comment on above: Performed By: #### P TT, NTBNP, HSTNT, CBCDIF, PT, CKCKMB, CMP #### [place] [address] MCHC mass conc (RBC) 30.3 g/dL Low 30.5-36.0 [facility] Comment on above: Performed By: #### P TT, NTBNP, HSTNT, CBCDIF, PT, CKCKMB, CMP #### [place] [address] MCV Entitic volume (RBC) 87.8 fL Normal 80.0-100.0 [facility] Comment on above: Performed By: #### P TT, NTBNP, HSTNT, CBCDIF, PT, CKCKMB, CMP #### [place] [phone] Monocytes/100 WBC (Bld) 3.7 % Normal [facility] Comment on above: Performed By: #### P TT, NTBNP, HSTNT, CBCDIF, PT, CKCKMB, CMP #### [place] [phone] Neutrophils/100 WBC (Bld) 90.9 % Normal [facility] Comment on above: Performed By: #### P TT, NTBNP, HSTNT, CBCDIF, PT, CKCKMB, CMP #### [place] [phone] Platelet mean volume Entitic volume (Bld) 9.9 fL Normal 9.0-12.7 [facility] Comment on above: Performed By: #### P TT, NTBNP, HSTNT, CBCDIF, PT, CKCKMB, CMP #### [place] [phone] Platelets #/vol (Bld) 194 10*3/uL Normal 150-400 [facility] Comment on above: Performed By: #### P TT, NTBNP, HSTNT, CBCDIF, PT, CKCKMB, CMP #### [place] [phone] RBC #/vol (Bld) 3.53 10*6/uL Low 3.90-5.20 [facility] Comment on above: Performed By: #### P TT, NTBNP, HSTNT, CBCDIF, PT, CKCKMB, CMP #### [place] [phone] WBC #/vol (Bld) 5.92 10*3/uL Normal 3.70-11.00 [facility] Comment on above: Performed By: #### P TT, NTBNP, HSTNT, CBCDIF, PT, CKCKMB, CMP #### [place] [phone] CONSULT PROGon 07-02-2018 Protein mass conc HNO ID: [id number] Author: Jonathan Mchugh Service: Cardiovascular Disease Author [...] July 02, 2018 Time: 10:13 AM Normal [facility] Comp Metabolic Panelon 07-02 Albumin mass conc 3.3 g/dL Low 3.5-5.0 [facility] Comment on above: Performed By: #### P TT, NTBNP, HSTNT, CBCDIF, PT, CKCKMB, CMP #### [place] [phone] ALP enzyme act/vol 87 U/L Normal 34-123 [facility] Comment on above: Performed By: #### P TT, NTBNP, HSTNT, CBCDIF, PT, CKCKMB, CMP #### [address] ALT enzyme act/vol 12 U/L Normal 0-45 [facility] Comment on above: Performed By: #### P TT, NTBNP, HSTNT, CBCDIF, PT, CKCKMB, CMP #### [address] Anion gap molar conc 13 mmol/L Normal 9-18 [facility] Comment on above: Performed By: #### P TT, NTBNP, HSTNT, CBCDIF, PT, CKCKMB, CMP #### [place] [phone] AST enzyme act/vol 8 U/L Normal 7-40 [facility] Comment on above: Performed By: #### P TT, NTBNP, HSTNT, CBCDIF, PT, CKCKMB, CMP #### [place] [phone] Bilirubin mass conc 0.2 mg/dL Normal 0.2-1.3 [facility] Comment on above: Performed By: #### P TT, NTBNP, HSTNT, CBCDIF, PT, CKCKMB, CMP #### [place] [phone] Calcium mass conc 8.3 mg/dL Low 8.5-10.5 [facility] Comment on above: Performed By: #### P TT, NTBNP, HSTNT, CBCDIF, PT, CKCKMB, CMP #### [place] [phone] Chloride molar conc 98 mmol/L Normal 98-110 [facility] Comment on above: Performed By: #### P TT, NTBNP, HSTNT, CBCDIF, PT, CKCKMB, CMP #### [place] [phone] CO2 molar conc 26 mmol/L Normal 23-32 [facility] Comment on above: Performed By: #### P TT, NTBNP, HSTNT, CBCDIF, PT, CKCKMB, CMP #### [place] [phone] Creatinine mass conc 1.47 mg/dL High 0.70-1.40 [facility] Comment on above: Performed By: #### P TT, NTBNP, HSTNT, CBCDIF, PT, CKCKMB, CMP #### [place] [phone] eGFR- Amer. 42 Low >60 [facility] Comment on above: Performed By: #### P TT, NTBNP, HSTNT, CBCDIF, PT, CKCKMB, CMP #### [place] [phone] GFR/1.73 sq M predicted among non-blacks MDRD vol rate/area (S/P/Bld) 35 . Low >60 [facility] Comment on above: Performed By: #### P TT, NTBNP, HSTNT, CBCDIF, PT, CKCKMB, CMP #### [place] [phone] Glucose mass conc 214 mg/dL High 65-100 [facility] Comment on above: Performed By: #### P TT, NTBNP, HSTNT, CBCDIF, PT, CKCKMB, CMP #### [place] [phone] Potassium molar conc 4.2 mmol/L Normal 3.5-5.0 [facility] Comment on above: Performed By: #### P TT, NTBNP, HSTNT, CBCDIF, PT, CKCKMB, CMP #### [place] [phone] Protein mass conc 6.3 g/dL Normal 6.0-8.4 [facility] Comment on above: Performed By: #### P TT, NTBNP, HSTNT, CBCDIF, PT, CKCKMB, CMP #### [place] [phone] Sodium molar conc 137 mmol/L Normal 132-148 [facility] Comment on above: Performed By: #### P TT, NTBNP, HSTNT, CBCDIF, PT, CKCKMB, CMP #### [place] [phone] Urea nitrogen mass conc 42 mg/dL High 8-25 [facility] Comment on above: Performed By: #### P TT, NTBNP, HSTNT, CBCDIF, PT, CKCKMB, CMP #### [place] [phone] NT Pro BNPon 07-02-2018 Protein mass conc 89342 pg/mL High <125 [facility] Comment on above: Performed By: #### P TT, NTBNP, HSTNT, CBCDIF, PT, CKCKMB, CMP #### [place] [phone] NURSING PROGon 07-02-2018 Protein mass conc HNO ID: [id number] Author: Xiomy CabreraRn) ZAK Christine Service: ? Author Type: Registered Nurse Type: Nursing Progress Note Filed: 07/02/2018 10:55 AM Note Text: Nursing Progress Note Patient Name: Sarina Lovett Patient Location: [address]8C-15 Daily Note:Pt states breathing is improving. VSS on RA. SB on tele. BP 180s/50s and HTN noted consistantly overnight. Discussed with Dr. Mchugh and additional dose vasotec given now. Daily vasotec dose to increase starting tomorrow. Hydralazine added PRN for SBP>170. ProBNP trending down. BUN/Cr 42/1.47 and physicians aware. Assessment ongoing. This note was completed by: Xiomy Christine RN [facility] PROGRESSon 07-02-2018 Protein mass conc HNO ID: [id number] Author: Jefe Hernandez Service: General Internal Medicine [...] Kidney Disease (Hcc) Congestive Heart Failure (Chf) ([facility]) ASSESSMENT AND PLAN: 1 acute systolic chf improved 2 ckd3 3 hti lisinopril increased 4 cad Will monito input / bp SIGNATURE: Jefe Hernandez MD DATE: July 02, 2018 TIME: 11:50 AM Normal [facility] CBC and Differentialon 07-01 Abs Baso <0.03 Normal <0.11 [facility] Comment on above: Performed By: #### P TT, NTBNP, HSTNT, CBCDIF, PT, CKCKMB, CMP #### [place] [address] Abs [place] 0.69 k/uL Normal <0.87 [facility] Comment on above: Performed By: #### P TT, NTBNP, HSTNT, CBCDIF, PT, CKCKMB, CMP #### [place] [address] Abs Neut 7.98 k/uL High 1.45-7.50 [facility] Comment on above: Performed By: #### P TT, NTBNP, HSTNT, CBCDIF, PT, CKCKMB, CMP #### [place] [address] Basophils/100 WBC (Bld) 0.0 % [facility] Comment on above: Performed By: #### P TT, NTBNP, HSTNT, CBCDIF, PT, CKCKMB, CMP #### [place] [address] DTYPE Auto Diff Normal [facility] Comment on above: Performed By: #### P TT, NTBNP, HSTNT, CBCDIF, PT, CKCKMB, CMP #### [place] [address] Eosinophils #/vol (Bld) 10*3/uL Normal <0.46 [facility] Comment on above: Performed By: #### P TT, NTBNP, HSTNT, CBCDIF, PT, CKCKMB, CMP #### [address] Eosinophils/100 WBC (Bld) 0.0 % [facility] Comment on above: Performed By: #### P TT, NTBNP, HSTNT, CBCDIF, PT, CKCKMB, CMP #### [place] [address] Erythrocyte distribution width Ratio (RBC) 14.4 % Normal 11.5-15.0 [facility] Comment on above: Performed By: #### P TT, NTBNP, HSTNT, CBCDIF, PT, CKCKMB, CMP #### [place] [address] Hematocrit Volume Fraction (Bld) 30.7 % Low 36.0-46.0 [facility] Comment on above: Performed By: #### P TT, NTBNP, HSTNT, CBCDIF, PT, CKCKMB, CMP #### [place] [address] Hemoglobin mass conc (Bld) 9.3 g/dL Low 11.5-15.5 [facility] Comment on above: Performed By: #### P TT, NTBNP, HSTNT, CBCDIF, PT, CKCKMB, CMP #### [place] [address] Lymphocytes #/vol (Bld) 0.76 10*3/uL Low 1.00-4.00 [facility] Comment on above: Performed By: #### P TT, NTBNP, HSTNT, CBCDIF, PT, CKCKMB, CMP #### [place] [address] Lymphocytes/100 WBC (Bld) 8.1 % Normal [facility] Comment on above: Performed By: #### P TT, NTBNP, HSTNT, CBCDIF, PT, CKCKMB, CMP #### [place] [id number] MCH Entitic mass (RBC) 27.0 pG Normal 26.0-34.0 [facility] Comment on above: Performed By: #### P TT, NTBNP, HSTNT, CBCDIF, PT, CKCKMB, CMP #### [place] [phone] MCHC mass conc (RBC) 30.3 g/dL Low 30.5-36.0 [facility] Comment on above: Performed By: #### P TT, NTBNP, HSTNT, CBCDIF, PT, CKCKMB, CMP #### [place] [phone] MCV Entitic volume (RBC) 89.2 fL Normal 80.0-100.0 [facility] Comment on above: Performed By: #### P TT, NTBNP, HSTNT, CBCDIF, PT, CKCKMB, CMP #### [place] [phone] Monocytes/100 WBC (Bld) 7.3 % Normal [facility] Comment on above: Performed By: #### P TT, NTBNP, HSTNT, CBCDIF, PT, CKCKMB, CMP #### [place] [phone] Neutrophils/100 WBC (Bld) 84.6 % Normal [facility] Comment on above: Performed By: #### P TT, NTBNP, HSTNT, CBCDIF, PT, CKCKMB, CMP #### [place] [phone] Platelet mean volume Entitic volume (Bld) 10.5 fL Normal 9.0-12.7 [facility] Comment on above: Performed By: #### P TT, NTBNP, HSTNT, CBCDIF, PT, CKCKMB, CMP #### [place] [phone] Platelets #/vol (Bld) 218 10*3/uL Normal 150-400 [facility] Comment on above: Performed By: #### P TT, NTBNP, HSTNT, CBCDIF, PT, CKCKMB, CMP #### [place] [phone] RBC #/vol (Bld) 3.44 10*6/uL Low 3.90-5.20 [facility] Comment on above: Performed By: #### P TT, NTBNP, HSTNT, CBCDIF, PT, CKCKMB, CMP #### [place] [phone] WBC #/vol (Bld) 9.43 10*3/uL Normal 3.70-11.00 [facility] Comment on above: Performed By: #### P TT, NTBNP, HSTNT, CBCDIF, PT, CKCKMB, CMP #### [place] [phone] Comp Metabolic Panelon 07-01 Albumin mass conc 3.3 g/dL Low 3.5-5.0 [facility] Comment on above: Performed By: #### P TT, NTBNP, HSTNT, CBCDIF, PT, CKCKMB, CMP #### [place] [phone] ALP enzyme act/vol 85 U/L Normal 34-123 [facility] Comment on above: Performed By: #### P TT, NTBNP, HSTNT, CBCDIF, PT, CKCKMB, CMP #### [place] [phone] ALT enzyme act/vol 12 U/L Normal 0-45 [facility] Comment on above: Performed By: #### P TT, NTBNP, HSTNT, CBCDIF, PT, CKCKMB, CMP #### [place] [phone] Anion gap molar conc 14 mmol/L Normal 9-18 [facility] Comment on above: Performed By: #### P TT, NTBNP, HSTNT, CBCDIF, PT, CKCKMB, CMP #### [place] [phone] AST enzyme act/vol 8 U/L Normal 7-40 [facility] Comment on above: Performed By: #### P TT, NTBNP, HSTNT, CBCDIF, PT, CKCKMB, CMP #### [place] [address] Bilirubin mass conc 0.2 mg/dL Normal 0.2-1.3 [facility] Comment on above: Performed By: #### P TT, NTBNP, HSTNT, CBCDIF, PT, CKCKMB, CMP #### [place] [address] Calcium mass conc 8.5 mg/dL Normal 8.5-10.5 [facility] Comment on above: Performed By: #### P TT, NTBNP, HSTNT, CBCDIF, PT, CKCKMB, CMP #### [place] [address] Chloride molar conc 100 mmol/L Normal 98-110 [facility] Comment on above: Performed By: #### P TT, NTBNP, HSTNT, CBCDIF, PT, CKCKMB, CMP #### [place] [address] CO2 molar conc 25 mmol/L Normal 23-32 [facility] Comment on above: Performed By: #### P TT, NTBNP, HSTNT, CBCDIF, PT, CKCKMB, CMP #### [place] [id number] Creatinine mass conc 1.59 mg/dL High 0.70-1.40 [facility] Comment on above: Performed By: #### P TT, NTBNP, HSTNT, CBCDIF, PT, CKCKMB, CMP #### [place] [id number] eGFR- Amer. 39 Low >60 [facility] Comment on above: Performed By: #### P TT, NTBNP, HSTNT, CBCDIF, PT, CKCKMB, CMP #### [place] [phone] GFR/1.73 sq M predicted among non-blacks MDRD vol rate/area (S/P/Bld) 32 . Low >60 [facility] Comment on above: Performed By: #### P TT, NTBNP, HSTNT, CBCDIF, PT, CKCKMB, CMP #### [place] [phone] Glucose mass conc 193 mg/dL High 65-100 [facility] Comment on above: Performed By: #### P TT, NTBNP, HSTNT, CBCDIF, PT, CKCKMB, CMP #### [place] [phone] Potassium molar conc 4.1 mmol/L Normal 3.5-5.0 [facility] Comment on above: Performed By: #### P TT, NTBNP, HSTNT, CBCDIF, PT, CKCKMB, CMP #### [place] [phone] Protein mass conc 6.1 g/dL Normal 6.0-8.4 [facility] Comment on above: Performed By: #### P TT, NTBNP, HSTNT, CBCDIF, PT, CKCKMB, CMP #### [place] [phone] Sodium molar conc 139 mmol/L Normal 132-148 [facility] Comment on above: Performed By: #### P TT, NTBNP, HSTNT, CBCDIF, PT, CKCKMB, CMP #### [place] [phone] Urea nitrogen mass conc 37 mg/dL High 8-25 [facility] Comment on above: Performed By: #### P TT, NTBNP, HSTNT, CBCDIF, PT, CKCKMB, CMP #### [phone] NURSING PROGon 07-01-2018 Protein mass conc HNO ID: [id number] Author: Charlotte CabreraRn) ZAK Fox Service: ? Author Type: Registered Nurse Type: Nursing Progress Note Filed: 07/01/2018 6:46 AM Note Text: Nursing Progress Note Patient Name: Sarina Lovett Patient Location: [facility]/ Daily Note: 0510: Pts BP 182/57. Paged house. Orders in system for 10mg Hydralazine IV push. 0538: Hydralazine given at this time. 0644: Recheck of BP 156/59 This note was completed by: Charlotte Fox RN [facility] PROGRESSon 07-01-2018 Protein mass conc HNO ID: [id number] Author: Uzma Graff Service: General Internal Medicine [...] 85 TBILI 0.2 SIGNATURE: Uzma Graff MD [phone] Pager: [facility] CASE MGT INIT Alfredo 2018 CASE MGT INIT [facility] HNO ID: [id number] Author: Bro Wood ([place]) Service: Care Management Author Type: Building Associate Type: Care Mgt Initial Assessment Filed: 06/30/2018 11:47 AM Note Text: CARE MANAGEMENT: ASSESSMENT AND DISCHARGE PLAN SERVICE DATE: 06/30/2018 SERVICE TIME: 11:43 AM PRIMARY CARE PHYSICIAN: Sadia Diaz MD ADMISSION STATUS: Inpatient Needs Prior to Discharge: To Be Determined MEDICAL: Patient/Representativ e Stated Goals: To have reduction in symptoms To return home to life as it was Health Insurance: Dianxin [place] [facility] [place] [facility] Health Issues Impacting Discharge Plan: CHF Last Admission Date: Previous admit date: 03/24/2018 Is this Within the Past 30 days? No Advance Directive: Current Advance Directive: None [employer] Officer Attempted to Assist with AD Completion: Yes [...] None Has the Patient Been in a Prison Facility in the Past 30 days? No SOCIAL: Living Arrangement: Home Lives With: Spouse Financial Resources: Retired Primary Contact: Extended Emergency Contact Information Primary Emergency Contact: Paul Bush Mobile Relation: Relative Secondary Emergency Contact: Daniel [place] Address: [facility] Mobile Relation: Spouse Supportive: Yes Other [...] 0 I feel financially burdened by my [id number]-njsrld expenses for my prescription medication: Disagree completely [...] 30, 2018 TIME: 11:42 AM PAGER/CONTACT #: [phone] [facility] CBCon 06-30-2018 Erythrocyte distribution width Ratio (RBC) 14.4 % Normal 11.5-15.0 [facility] Comment on above: Performed By: #### P TT, NTBNP, HSTNT, CBCDIF, PT, CKCKMB, CMP #### [place] [address] Hematocrit Volume Fraction (Bld) 33.2 % Low 36.0-46.0 [facility] Comment on above: Performed By: #### P TT, NTBNP, HSTNT, CBCDIF, PT, CKCKMB, CMP #### [place] [address] Hemoglobin mass conc (Bld) 10.0 g/dL Low 11.5-15.5 [facility] Comment on above: Performed By: #### P TT, NTBNP, HSTNT, CBCDIF, PT, CKCKMB, CMP #### [place] [address] MCH Entitic mass (RBC) 26.9 pG Normal 26.0-34.0 [facility] Comment on above: Performed By: #### P TT, NTBNP, HSTNT, CBCDIF, PT, CKCKMB, CMP #### [place] [address] MCHC mass conc (RBC) 30.1 g/dL Low 30.5-36.0 [facility] Comment on above: Performed By: #### P TT, NTBNP, HSTNT, CBCDIF, PT, CKCKMB, CMP #### [place] [address] MCV Entitic volume (RBC) 89.2 fL Normal 80.0-100.0 [facility] Comment on above: Performed By: #### P TT, NTBNP, HSTNT, CBCDIF, PT, CKCKMB, CMP #### [place] [address] Platelet mean volume Entitic volume (Bld) 10.0 fL Normal 9.0-12.7 [facility] Comment on above: Performed By: #### P TT, NTBNP, HSTNT, CBCDIF, PT, CKCKMB, CMP #### [place] [phone] Platelets #/vol (Bld) 214 10*3/uL Normal 150-400 [facility] Comment on above: Performed By: #### P TT, NTBNP, HSTNT, CBCDIF, PT, CKCKMB, CMP #### [place] [phone] RBC #/vol (Bld) 3.72 10*6/uL Low 3.90-5.20 [facility] Comment on above: Performed By: #### P TT, NTBNP, HSTNT, CBCDIF, PT, CKCKMB, CMP #### [phone] WBC #/vol (Bld) 5.42 10*3/uL Normal 3.70-11.00 [facility] Comment on above: Performed By: #### P TT, NTBNP, HSTNT, CBCDIF, PT, CKCKMB, CMP #### [place] [phone] CONSULTon 06-30-2018 CONSULT HNO ID: [id number] Author: Deanna Yoo Service: Cardiovascular Medicine Author Type: Nurse Practitioner Type: Consults Filed: 06/30/2018 5:10 PM Note Text: Attestation signed by Joy Browne at 06/30/2018 5:36 PM Will continue with jesus lasmaryellen I have reviewed the documentation obtained [...] breath, leg edema, and intermittent chest pressure. [place] better in the ED following breathing treatments [...] Coronary atherosclerosis of unspecified type of vessel, [place]am[place] or graft Coronary Atherosclerosis - Diabetes (HCC) [...] in this patient's care. SIGNATURE: Deanna Yoo APRN.VEHICLE SERVICE AGENT cardiology DATE: June 30, 2018 TIME: 12:48 PM Normal [facility] Comp Metabolic Panelon 06-30 Albumin mass conc 3.6 g/dL Normal 3.5-5.0 [facility] Comment on above: Performed By: #### P TT, NTBNP, HSTNT, CBCDIF, PT, CKCKMB, CMP #### [place] [address] ALP enzyme act/vol 93 U/L Normal 34-123 [facility] Comment on above: Performed By: #### P TT, NTBNP, HSTNT, CBCDIF, PT, CKCKMB, CMP #### [place] [address] ALT enzyme act/vol 14 U/L Normal 0-45 [facility] Comment on above: Performed By: #### P TT, NTBNP, HSTNT, CBCDIF, PT, CKCKMB, CMP #### [place] [phone] Anion gap molar conc 13 mmol/L Normal 9-18 [facility] Comment on above: Performed By: #### P TT, NTBNP, HSTNT, CBCDIF, PT, CKCKMB, CMP #### [place] [phone] AST enzyme act/vol 11 U/L Normal 7-40 [facility] Comment on above: Performed By: #### P TT, NTBNP, HSTNT, CBCDIF, PT, CKCKMB, CMP #### [address] Bilirubin mass conc 0.3 mg/dL Normal 0.2-1.3 [facility] Comment on above: Performed By: #### P TT, NTBNP, HSTNT, CBCDIF, PT, CKCKMB, CMP #### [place] [phone] Calcium mass conc 9.0 mg/dL Normal 8.5-10.5 [facility] Comment on above: Performed By: #### P TT, NTBNP, HSTNT, CBCDIF, PT, CKCKMB, CMP #### [place] [phone] Chloride molar conc 105 mmol/L Normal 98-110 [facility] Comment on above: Performed By: #### P TT, NTBNP, HSTNT, CBCDIF, PT, CKCKMB, CMP #### [phone] CO2 molar conc 26 mmol/L Normal 23-32 [facility] Comment on above: Performed By: #### P TT, NTBNP, HSTNT, CBCDIF, PT, CKCKMB, CMP #### [place] [phone] Creatinine mass conc 1.27 mg/dL Normal 0.70-1.40 [facility] Comment on above: Result Comment: Revi ewed Performed By: #### P TT, NTBNP, HSTNT, CBCDIF, PT, CKCKMB, CMP #### [place] [phone] eGFR- Amer. 50 Low >60 [facility] Comment on above: Performed By: #### P TT, NTBNP, HSTNT, CBCDIF, PT, CKCKMB, CMP #### [place] [id number] GFR/1.73 sq M predicted among non-blacks MDRD vol rate/area (S/P/Bld) 41 . Low >60 [facility] Comment on above: Performed By: #### P TT, NTBNP, HSTNT, CBCDIF, PT, CKCKMB, CMP #### [place] [address] Glucose mass conc 232 mg/dL High 65-100 [facility] Comment on above: Performed By: #### P TT, NTBNP, HSTNT, CBCDIF, PT, CKCKMB, CMP #### [place] [address] Potassium molar conc 5.8 mmol/L High 3.5-5.0 [facility] Comment on above: Result Comment: Revi ewed Performed By: #### P TT, NTBNP, HSTNT, CBCDIF, PT, CKCKMB, CMP #### [place] [phone] Protein mass conc 7.0 g/dL Normal 6.0-8.4 [facility] Comment on above: Performed By: #### P TT, NTBNP, HSTNT, CBCDIF, PT, CKCKMB, CMP #### [facility] [address] [place] [address] Sodium molar conc 144 mmol/L Normal 132-148 [facility] Comment on above: Performed By: #### P TT, NTBNP, HSTNT, CBCDIF, PT, CKCKMB, CMP #### [facility] [address] [place] [phone] Urea nitrogen mass conc 22 mg/dL Normal 8-25 [facility] Comment on above: Performed By: #### P TT, NTBNP, HSTNT, CBCDIF, PT, CKCKMB, CMP #### [place] [id number] [place] [phone] HISTORY PHYSICALon HISTORY PHYSICAL HNO ID: [id number] Author: Uzma Graff Service: General Internal Medicine [...] Coronary atherosclerosis of unspecified type of vessel, salamatof or graft Coronary Atherosclerosis - Diabetes (HCC) [...] June 30, 2018 TIME: 11:36 AM Normal [facility] Magnesiumon 06-30-2018 Magnesium mass conc 2.2 mg/dL Normal 1.7-2.6 [facility] Comment on above: Result Comment: Revi ewed Performed By: #### P TT, NTBNP, HSTNT, CBCDIF, PT, CKCKMB, CMP #### [place] [address] NURSING PROGon 06-30-2018 Protein mass conc HNO ID: [id number] Author: Kiko CabreraRn) ZAK Gillespie Service: ? Author Type: Registered Nurse Type: Nursing Progress Note Filed: 06/30/2018 6:39 PM Note Text: Nursing Progress Note Patient Name: Sarina Lovett Patient Location: [id number]/[id number] Daily Note: 0900 monitor SR B3. denies [...] ordered/started. ECHO ordered. continue assess. 1400 Cardiovascular VEHICLE SERVICE AGENT in to see pt. orders received. Coreg increased for dinnertime and given. ECHO to be completed. Dr. Browne in to see pt with orders. call mcdaniels in reach. continue assess. 1800 BP 151/60. hr 62. denies cp, dizziness, or palpitations. call mcdaniels in reach. continue assess. This note was completed by: Kiko Gillespie RN [facility] ALLIED HEALTHon 06-29-2018 ALLIED HEALTH HNO ID: [id number] Author: Radha CabreraRtAmanda Cherry Service: Radiology Author Type: Radiology Scheduler Type: Allied Health Filed: 06/29/2018 1:04 PM [...] RT Lainey June 29, 2018 1:03 PM [facility] ALLIED HEALTH HNO ID: [id number] Author: Amanda Retana (Rt) Service: Radiology Author Type: Radiology Scheduler Type: Allied Health Filed: 06/29/2018 1:02 PM [...] RT Lainey June 29, 2018 1:02 PM [facility] CBC and Differentialon 06-29 Abs Baso 0.03 k/uL Normal <0.11 [facility] Comment on above: Performed By: #### P TT, NTBNP, HSTNT, CBCDIF, PT, CKCKMB, CMP #### [place] [phone] Abs Portage 0.67 k/uL Normal <0.87 [facility] Comment on above: Performed By: #### P TT, NTBNP, HSTNT, CBCDIF, PT, CKCKMB, CMP #### [place] [phone] Abs Neut 8.15 k/uL High 1.45-7.50 [facility] Comment on above: Performed By: #### P TT, NTBNP, HSTNT, CBCDIF, PT, CKCKMB, CMP #### [address] Absolute nRBC <0.01 Normal <0.01 [facility] Comment on above: Performed By: #### P TT, NTBNP, HSTNT, CBCDIF, PT, CKCKMB, CMP #### [place] [phone] Basophils/100 WBC (Bld) 0.3 % Normal [facility] Comment on above: Performed By: #### P TT, NTBNP, HSTNT, CBCDIF, PT, CKCKMB, CMP #### [place] [address] DTYPE Auto Diff Normal [facility] Comment on above: Performed By: #### P TT, NTBNP, HSTNT, CBCDIF, PT, CKCKMB, CMP #### [place] [address] Eosinophils #/vol (Bld) 0.03 10*3/uL Normal <0.46 [facility] Comment on above: Performed By: #### P TT, NTBNP, HSTNT, CBCDIF, PT, CKCKMB, CMP #### [address] Eosinophils/100 WBC (Bld) 0.3 % Normal [facility] Comment on above: Performed By: #### P TT, NTBNP, HSTNT, CBCDIF, PT, CKCKMB, CMP #### [place] [address] Erythrocyte distribution width Ratio (RBC) 14.5 % Normal 11.5-15.0 [facility] Comment on above: Performed By: #### P TT, NTBNP, HSTNT, CBCDIF, PT, CKCKMB, CMP #### [address] Hematocrit Volume Fraction (Bld) 33.8 % Low 36.0-46.0 [facility] Comment on above: Performed By: #### P TT, NTBNP, HSTNT, CBCDIF, PT, CKCKMB, CMP #### [place] [address] Hemoglobin mass conc (Bld) 10.5 g/dL Low 11.5-15.5 [facility] Comment on above: Performed By: #### P TT, NTBNP, HSTNT, CBCDIF, PT, CKCKMB, CMP #### [place] [address] Lymphocytes #/vol (Bld) 0.90 10*3/uL Low 1.00-4.00 [facility] Comment on above: Performed By: #### P TT, NTBNP, HSTNT, CBCDIF, PT, CKCKMB, CMP #### [place] [address] Lymphocytes/100 WBC (Bld) 9.2 % Normal [facility] Comment on above: Performed By: #### P TT, NTBNP, HSTNT, CBCDIF, PT, CKCKMB, CMP #### [place] [address] MCH Entitic mass (RBC) 27.3 pG Normal 26.0-34.0 [facility] Comment on above: Performed By: #### P TT, NTBNP, HSTNT, CBCDIF, PT, CKCKMB, CMP #### [place] [address] MCHC mass conc (RBC) 31.1 g/dL Normal 30.5-36.0 [facility] Comment on above: Performed By: #### P TT, NTBNP, HSTNT, CBCDIF, PT, CKCKMB, CMP #### [place] [phone] MCV Entitic volume (RBC) 88.0 fL Normal 80.0-100.0 [facility] Comment on above: Performed By: #### P TT, NTBNP, HSTNT, CBCDIF, PT, CKCKMB, CMP #### [place] [phone] Monocytes/100 WBC (Bld) 6.9 % Normal [facility] Comment on above: Performed By: #### P TT, NTBNP, HSTNT, CBCDIF, PT, CKCKMB, CMP #### [place] [phone] Neutrophils/100 WBC (Bld) 83.3 % Normal [facility] Comment on above: Performed By: #### P TT, NTBNP, HSTNT, CBCDIF, PT, CKCKMB, CMP #### [place] [phone] NRBCs 0.0 /100 WBC Normal 0 [facility] Comment on above: Performed By: #### P TT, NTBNP, HSTNT, CBCDIF, PT, CKCKMB, CMP #### [place] [phone] Platelet mean volume Entitic volume (Bld) 10.3 fL Normal 9.0-12.7 [facility] Comment on above: Performed By: #### P TT, NTBNP, HSTNT, CBCDIF, PT, CKCKMB, CMP #### [phone] Platelets #/vol (Bld) 281 10*3/uL Normal 150-400 [facility] Comment on above: Performed By: #### P TT, NTBNP, HSTNT, CBCDIF, PT, CKCKMB, CMP #### [place] [phone] RBC #/vol (Bld) 3.84 10*6/uL Low 3.90-5.20 [facility] Comment on above: Performed By: #### P TT, NTBNP, HSTNT, CBCDIF, PT, CKCKMB, CMP #### [place] [phone] WBC #/vol (Bld) 9.78 10*3/uL Normal 3.70-11.00 [facility] Comment on above: Performed By: #### P TT, NTBNP, HSTNT, CBCDIF, PT, CKCKMB, CMP #### [place] [address] Comp Metabolic Panelon 06-29 Albumin mass conc 3.8 g/dL Normal 3.5-5.0 [facility] Comment on above: Performed By: #### P TT, NTBNP, HSTNT, CBCDIF, PT, CKCKMB, CMP #### [place] [phone] ALP enzyme act/vol 96 U/L Normal 34-123 [facility] Comment on above: Performed By: #### P TT, NTBNP, HSTNT, CBCDIF, PT, CKCKMB, CMP #### [place] [phone] ALT enzyme act/vol 17 U/L Normal 0-45 [facility] Comment on above: Performed By: #### P TT, NTBNP, HSTNT, CBCDIF, PT, CKCKMB, CMP #### [place] [phone] Anion gap molar conc 14 mmol/L Normal 9-18 [facility] Comment on above: Performed By: #### P TT, NTBNP, HSTNT, CBCDIF, PT, CKCKMB, CMP #### [place] [phone] AST enzyme act/vol 16 U/L Normal 7-40 [facility] Comment on above: Performed By: #### P TT, NTBNP, HSTNT, CBCDIF, PT, CKCKMB, CMP #### [place] [phone] Bilirubin mass conc 0.5 mg/dL Normal 0.2-1.3 [facility] Comment on above: Performed By: #### P TT, NTBNP, HSTNT, CBCDIF, PT, CKCKMB, CMP #### [place] [phone] Calcium mass conc 8.7 mg/dL Normal 8.5-10.5 [facility] Comment on above: Performed By: #### P TT, NTBNP, HSTNT, CBCDIF, PT, CKCKMB, CMP #### [place] [phone] Chloride molar conc 103 mmol/L Normal 98-110 [facility] Comment on above: Performed By: #### P TT, NTBNP, HSTNT, CBCDIF, PT, CKCKMB, CMP #### [place] [phone] CO2 molar conc 23 mmol/L Normal 23-32 [facility] Comment on above: Performed By: #### P TT, NTBNP, HSTNT, CBCDIF, PT, CKCKMB, CMP #### [place] [phone] Creatinine mass conc 1.02 mg/dL Normal 0.70-1.40 [facility] Comment on above: Performed By: #### P TT, NTBNP, HSTNT, CBCDIF, PT, CKCKMB, CMP #### [place] [phone] eGFR- Amer. >60 Normal >60 [facility] Comment on above: Performed By: #### P TT, NTBNP, HSTNT, CBCDIF, PT, CKCKMB, CMP #### [place] [phone] GFR/1.73 sq M predicted among non-blacks MDRD vol rate/area (S/P/Bld) 53 . Low >60 [facility] Comment on above: Performed By: #### P TT, NTBNP, HSTNT, CBCDIF, PT, CKCKMB, CMP #### [place] [phone] Glucose mass conc 154 mg/dL High 65-100 [facility] Comment on above: Performed By: #### P TT, NTBNP, HSTNT, CBCDIF, PT, CKCKMB, CMP #### [place] [phone] Potassium molar conc 3.2 mmol/L Low 3.5-5.0 [facility] Comment on above: Performed By: #### P TT, NTBNP, HSTNT, CBCDIF, PT, CKCKMB, CMP #### [place] [phone] Protein mass conc 7.1 g/dL Normal 6.0-8.4 [facility] Comment on above: Performed By: #### P TT, NTBNP, HSTNT, CBCDIF, PT, CKCKMB, CMP #### [place] [phone] Sodium molar conc 140 mmol/L Normal 132-148 [facility] Comment on above: Performed By: #### P TT, NTBNP, HSTNT, CBCDIF, PT, CKCKMB, CMP #### [place] [phone] Urea nitrogen mass conc 16 mg/dL Normal 8-25 [facility] Comment on above: Performed By: #### P TT, NTBNP, HSTNT, CBCDIF, PT, CKCKMB, CMP #### [place] [phone] ECG COMPLETEon 06-29-2018 ECG COMPLETE NAME : SARINA LOVETT PID : [id number] : 1945 Gender : Female Race : ORD : [id number] Procedure Date : Jun 29 2018 11:05:45 Edit Date : Jun 29 2018 18:18:45 Diagnosis:SINUS RHYTHM 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 HYPERTROPHY Abnormal ECG 1109 Confirmed by MD ÁLVAREZ ANDREW ([id number]), publication editor RUBI WARNER ([id number]) on 06/29/2018 6:18:39 PM Ventricular Rate : 75 BPM Atrial Rate : 76 BPM P-R Interval : 216 ms QRS Duration : 170 ms Q-T Interval : 476 ms QTC Calculation(Bezet) : 532 ms P [place] : 5 degrees R [place] : -64 degrees T [place] : 65 degrees Test Reason : Chest Pain Location : 402 : FVED RW Overread By : MD ÁLVAREZ ANDREW Edited By : RUBI WARNER Referred By : , Acquired by : Michelle DELEON [facility] ED PROV NOTEon 06-29-2018 Protein mass conc HNO ID: [id number] Author: Juanito Álvarez MD Service: Emergency Medicine [...] did not take home blood pressure medications 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 - Aortic valve disorders - Cancer (HCC) - Coronary atherosclerosis of unspecified type of vessel, salamatof or graft Coronary Atherosclerosis - Diabetes (HCC) [...] hypokalemia at 3.2. No metabolic dysfunction. ProBNP >12709, trop mildly elevated above baseline 42 CXR [...] x-ray with evidence of mild congestion, proBNP >28078, patient with peripheral edema and dyspnea on [...] of care The patient was ADMITTED TO: [facility]. Case discussed with admitting physician, Dr. Graff. Condition at time of disposition: stable SIGNATURE: DENISHA Kimbrough) DENISHA Ortiz 06/29/18 1402 Haydee Devine) DENISHA Ortiz 06/29/18 1403 Attending Note I have personally performed a face to face assessment of the patient and have reviewed the PA/STUDIO MUSICIAN note. My olivera findings include: Patient with [...] Time: 6:16 PM Juanito Álvarez MD 06/29/18 6064 Normal [facility] High Sens Troponin Ton 06-29 High Sensitivity ANGE 42 ng/L High <12 [facility] Comment on above: Result Comment: When [...] NTBNP, HSTNT, CBCDIF, PT, CKCKMB, CMP #### [place] [phone] High Sensitivity ANGE 42 ng/L High <12 [facility] Comment on above: Result Comment: When [...] NTBNP, HSTNT, CBCDIF, PT, CKCKMB, CMP #### [place] [phone] Magnesiumon 06-29-2018 Magnesium mass conc 1.6 mg/dL Low 1.7-2.6 [facility] Comment on above: Performed By: #### P TT, NTBNP, HSTNT, CBCDIF, PT, CKCKMB, CMP #### [place] [phone] NT Pro BNPon 06-29-2018 Protein mass conc g/dL High <125 [facility] Comment on above: Result Comment: Resu lt checked and verified Performed By: #### P TT, NTBNP, HSTNT, CBCDIF, PT, CKCKMB, CMP #### [place] [phone] NURSING PROGon 06-29-2018 Protein mass conc HNO ID: [id number] Author: Nicole Ronquillo (Rn) ZAK Jacome Service: [...] note was completed by: Nicole Jacome RN [facility] XR CHEST 1V FRONTAL PORTon 0 [...] sternotomy. Other: . IMPRESSION: Cardiomegaly and congestion. Chef De Froid: PSCB Transcribe Date/Time: Jun 29 2018 12:57P Dictated by : KIRSTIE ANDRADE MD This examination was interpreted and the report reviewed and electronically signed by: KIRSTIE ANDRADE MD on Jun 29 2018 12:57PM EST [id number] N [facility] ALLIED HEALTHon 06-06-2018 ALLIED HEALTH HNO ID: [id number] Author: Amanda Morales (Tech) Service: ? Author Type: Radiology Scheduler Type: Allied Health Filed: 06/06/2018 3:28 PM [...] Amanda Morales June 06, 2018 3:27 PM [facility] ED NOTEon 06-06-2018 ED NOTE HNO ID: [id number] Author: Akosua Payton) ZAK Johnston Service: ? Author Type: Registered Nurse Type: ED Notes Filed: 06/06/2018 4:05 PM Note Text: Bed: 67-ED Expected date: Expected time: Means of arrival: Comments: [facility] ED PROV NOTEon 06-06-2018 Protein mass conc HNO ID: [id number] Author: Loretta Duran MD Service: Emergency Medicine [...] Coronary atherosclerosis of unspecified type of vessel, salamatof or graft Coronary Atherosclerosis - Diabetes (HCC) [...] SIGNATURE: MD Loretta Santana MD 06/06/18 1625 [facility] ED Triage Noteon 06-06-2018 ED Triage Note HNO ID: [id number] Author: Lissette Mondragon (Pa) Service: Emergency Medicine Author Type: Physician Subsurface Augmentee Operator Type: ED Triage Notes Filed: 06/06/2018 3:02 PM Note Text: Initial Provider Assessment: HPI: 73 year old female with complaint of left foot injury. Exam: Reviewed nursing notes and vitals Heent: PERRLA, Oropharynx normal. Ext: Mild swelling and tenderness to left lateral foot Plan: assess in ER Lissette Mondragon PA-C [facility] XR FOOT 3V AP/LAT/OBL LTon 0 [...] unremarkable. IMPRESSION: NO ACUTE ABNORMALITY IS IDENTIFIED. Chef De Froid: PSCB Transcribe Date/Time: Jun 06 2018 3:44P Dictated by : RADHA MCNEIL MD This examination was interpreted and the report reviewed and electronically signed by: RADHA MCNEIL MD on Jun 06 2018 3:46PM EST [id number] N [facility] OBSOLETEon 06-02-2018 OBSOLETE Refill (ENRICOFV) SARINA LOVETT ([id number]) 1945 F Date Time Provider Department 06/02/18 Joy BROWNE DORIS SHAHRZAD During your visit today, we recorded the following information about you: Heidi Ordaz Water Hauler II 06/02/2018 5:21 PM Signed Patient phones requesting refills as follows: Pending Prescriptions Disp Refills NITROGLYCERIN 0.4 MG SUBLINGUAL TABLET 25 tablet 5 Sig: DISSOLVE 1 TABLET UNDER THE TONGUE NEEDED FOR CHEST PAIN MARIO: Yes Please review and advise. Heidi Ordaz Water Hauler II Allergies As of Date: 06/02/2018 Noted [...] Joy BROWNE MD on 06/04/18 [facility] CNOVon 05-02-2018 CNOV Office Visit (ENRICOFV ) SARINA LOVETT ([id number]) 1945 F Date Time Provider Department 05/02/18 11:30 AM Joy BROWNE During your visit today, we recorded the following information about you: Pulse Blood pressure Weight Height 80/minute 145/90 73.8 kg 1.702 m Joy Browne MD 05/02/2018 11:59 AM Written Joy Browne MD 05/02/2018 12:08 PM Signed [facility] [place] [facility]oughlin Department of Cardiovascular Medicine [facility] OUTPATIENT VISIT DATE May 02, 2018 OUTPATIENT VISIT TYPE Established Patient PRIMARY CARE PHYSICIAN: Sadia Diaz MD ([facility]) [address] [place] [address] REFERRING PHYSICIAN: Sacha Ford MD [address] [facility] [phone] CHIEF COMPLAINT: Office Follow-Up Visit HISTORY OF [...] Coronary atherosclerosis of unspecified type of vessel, salamatof or graft Coronary Atherosclerosis - Diabetes (HCC) [...] . (I25.110) Atherosclerosis of coronary artery of salamatof heart with unstable angina pectoris, unspecified vessel or lesion type (HCC) Will resume coreg PLAN AND RECOMMENDATIONS: Lipid is managed and blood testing is done by pcp CONTACT INFORMATION: MD Akash Robbins and Uyen Coughlin Department of Cardiovascular Medicine [facility] [place] [facility] Cardiology [address] [place] [address] [address] [place] [address] Referring Provider: SACHA SCHROEDER [[id number]] Allergies As of Date: 05/02/2018 Noted Allergy [...] Visit Diagnoses:Atheroscler osis of coronary artery of salamatof heart with unstable angina pectoris, unspecified vessel [...] Status:Closed by Joy BROWNE MD on 05/02/18 [facility] PROGRESSon 05-02-2018 Protein mass conc HNO ID: [id number] Author: Joy Browne Service: ? Author Type: Physician Type: Progress Notes Filed: 05/02/2018 12:08 PM Note Text: [facility] [place] [facility] Coughlin Department of Cardiovascular Medicine [facility] OUTPATIENT VISIT DATE May 02, 2018 OUTPATIENT VISIT TYPE Established Patient PRIMARY CARE PHYSICIAN: Sadia Diaz MD ([facility]) [address] [facility] [address] [place] [address] REFERRING PHYSICIAN: Sacha Ford MD [address] [facility] [phone] CHIEF COMPLAINT: Office Follow-Up Visit HISTORY OF [...] Coronary atherosclerosis of unspecified type of vessel, salamatof or graft Coronary Atherosclerosis - Diabetes (HCC) [...] . (I25.110) Atherosclerosis of coronary artery of salamatof heart with unstable angina pectoris, unspecified vessel or lesion type (HCC) Will resume coreg PLAN AND RECOMMENDATIONS: Lipid is managed and blood testing is done by pcp CONTACT INFORMATION: MD Akash Robbins and Uyen Coughlin Department of Cardiovascular Medicine [facility] [place] [facility] Cardiology [address] [facility] [address] [place] [address] [facility] ALLIED HEALTH 04-08-2018 ALLIED HEALTH HNO ID: [id number] Author: 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 Service: Cardiovascular Surgery Author Type: Nurse Practitioner Type: Allied Health Filed: 05/02/2018 12:17 PM Note Text: Addendum: Admission Date: 03/26/2018 NYHA Class III 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, OSTOMY CARE NURSE.BHARAT [facility] Basic Metabolic Panlon 04-08 Anion gap molar conc 12 mmol/L Normal 9-18 [facility] Comment on above: Performed By: #### P TT, NTBNP, HSTNT, CBCDIF, PT, CKCKMB, CMP #### [place] [phone] Calcium mass conc 8.7 mg/dL Normal 8.5-10.5 [facility] Comment on above: Performed By: #### P TT, NTBNP, HSTNT, CBCDIF, PT, CKCKMB, CMP #### [place] [phone] Chloride molar conc 97 mmol/L Low 98-110 [facility] Comment on above: Performed By: #### P TT, NTBNP, HSTNT, CBCDIF, PT, CKCKMB, CMP #### [place] [phone] CO2 molar conc 30 mmol/L Normal 23-32 [facility] Comment on above: Performed By: #### P TT, NTBNP, HSTNT, CBCDIF, PT, CKCKMB, CMP #### [place] [phone] Creatinine mass conc 1.70 mg/dL High 0.70-1.40 [facility] Comment on above: Performed By: #### P TT, NTBNP, HSTNT, CBCDIF, PT, CKCKMB, CMP #### [place] [phone] eGFR- Amer. 36 Low >60 [facility] Comment on above: Performed By: #### P TT, NTBNP, HSTNT, CBCDIF, PT, CKCKMB, CMP #### [place] [phone] GFR/1.73 sq M predicted among non-blacks MDRD vol rate/area (S/P/Bld) 30 . Low >60 [facility] Comment on above: Performed By: #### P TT, NTBNP, HSTNT, CBCDIF, PT, CKCKMB, CMP #### [place] [address] Glucose mass conc 142 mg/dL High 65-100 [facility] Comment on above: Performed By: #### P TT, NTBNP, HSTNT, CBCDIF, PT, CKCKMB, CMP #### [place] [address] Potassium molar conc 4.6 mmol/L Normal 3.5-5.0 [facility] Comment on above: Performed By: #### P TT, NTBNP, HSTNT, CBCDIF, PT, CKCKMB, CMP #### [place] [address] Sodium molar conc 139 mmol/L Normal 132-148 [facility] Comment on above: Performed By: #### P TT, NTBNP, HSTNT, CBCDIF, PT, CKCKMB, CMP #### [address] Urea nitrogen mass conc 53 mg/dL High 8-25 [facility] Comment on above: Performed By: #### P TT, NTBNP, HSTNT, CBCDIF, PT, CKCKMB, CMP #### [place] [address] CBC and Differentialon 04-08 Abs Baso <0.03 Normal <0.11 [facility] Comment on above: Performed By: #### P TT, NTBNP, HSTNT, CBCDIF, PT, CKCKMB, CMP #### [place] [id number] Abs [place] 0.60 k/uL Normal <0.87 [facility] Comment on above: Performed By: #### P TT, NTBNP, HSTNT, CBCDIF, PT, CKCKMB, CMP #### [place] [id number] Abs Neut 6.77 k/uL Normal 1.45-7.50 [facility] Comment on above: Performed By: #### P TT, NTBNP, HSTNT, CBCDIF, PT, CKCKMB, CMP #### [place] [phone] Basophils/100 WBC (Bld) 0.2 % Normal [facility] Comment on above: Performed By: #### P TT, NTBNP, HSTNT, CBCDIF, PT, CKCKMB, CMP #### [place] [phone] DTYPE Auto Diff Normal [facility] Comment on above: Performed By: #### P TT, NTBNP, HSTNT, CBCDIF, PT, CKCKMB, CMP #### [place] [phone] Eosinophils #/vol (Bld) 0.11 10*3/uL Normal <0.46 [facility] Comment on above: Performed By: #### P TT, NTBNP, HSTNT, CBCDIF, PT, CKCKMB, CMP #### [address] Eosinophils/100 WBC (Bld) 1.3 % Normal [facility] Comment on above: Performed By: #### P TT, NTBNP, HSTNT, CBCDIF, PT, CKCKMB, CMP #### [address] Erythrocyte distribution width Ratio (RBC) 13.8 % Normal 11.5-15.0 [facility] Comment on above: Performed By: #### P TT, NTBNP, HSTNT, CBCDIF, PT, CKCKMB, CMP #### [place] [phone] Hematocrit Volume Fraction (Bld) 29.6 % Low 36.0-46.0 [facility] Comment on above: Performed By: #### P TT, NTBNP, HSTNT, CBCDIF, PT, CKCKMB, CMP #### [place] [address] Hemoglobin mass conc (Bld) 9.4 g/dL Low 11.5-15.5 [facility] Comment on above: Performed By: #### P TT, NTBNP, HSTNT, CBCDIF, PT, CKCKMB, CMP #### [place] [address] Lymphocytes #/vol (Bld) 1.16 10*3/uL Normal 1.00-4.00 [facility] Comment on above: Performed By: #### P TT, NTBNP, HSTNT, CBCDIF, PT, CKCKMB, CMP #### [place] [address] Lymphocytes/100 WBC (Bld) 13.4 % Normal [facility] Comment on above: Performed By: #### P TT, NTBNP, HSTNT, CBCDIF, PT, CKCKMB, CMP #### [place] [address] MCH Entitic mass (RBC) 29.3 pG Normal 26.0-34.0 [facility] Comment on above: Performed By: #### P TT, NTBNP, HSTNT, CBCDIF, PT, CKCKMB, CMP #### [place] [address] MCHC mass conc (RBC) 31.8 g/dL Normal 30.5-36.0 [facility] Comment on above: Performed By: #### P TT, NTBNP, HSTNT, CBCDIF, PT, CKCKMB, CMP #### [place] [id number] MCV Entitic volume (RBC) 92.2 fL Normal 80.0-100.0 [facility] Comment on above: Performed By: #### P TT, NTBNP, HSTNT, CBCDIF, PT, CKCKMB, CMP #### [place] [phone] Monocytes/100 WBC (Bld) 6.9 % Normal [facility] Comment on above: Performed By: #### P TT, NTBNP, HSTNT, CBCDIF, PT, CKCKMB, CMP #### [place] [phone] Neutrophils/100 WBC (Bld) 78.2 % Normal [facility] Comment on above: Performed By: #### P TT, NTBNP, HSTNT, CBCDIF, PT, CKCKMB, CMP #### [phone] Platelet mean volume Entitic volume (Bld) 10.0 fL Normal 9.0-12.7 [facility] Comment on above: Performed By: #### P TT, NTBNP, HSTNT, CBCDIF, PT, CKCKMB, CMP #### [place] [phone] Platelets #/vol (Bld) 225 10*3/uL Normal 150-400 [facility] Comment on above: Performed By: #### P TT, NTBNP, HSTNT, CBCDIF, PT, CKCKMB, CMP #### [place] [phone] RBC #/vol (Bld) 3.21 10*6/uL Low 3.90-5.20 [facility] Comment on above: Performed By: #### P TT, NTBNP, HSTNT, CBCDIF, PT, CKCKMB, CMP #### [place] [phone] WBC #/vol (Bld) 8.66 10*3/uL Normal 3.70-11.00 [facility] Comment on above: Performed By: #### P TT, NTBNP, HSTNT, CBCDIF, PT, CKCKMB, CMP #### [place] [phone] CNDSon 04-08-2018 [facility] HNO ID: [id number] Author: Neftali Layton Service: General Internal Medicine [...] (HCC) (I25.110) Atherosclerosis of coronary artery of [place] heart with unstable angina pectoris, unspecified vessel [...] than 101F Follow Up Appointments Follow-Up Appointment [phone] With: Dr. Andree Peters When: In 1 [...] states this feels similar to her prior RI. She denies history of DVT/PE. She is [...] in SVG to RCA. Patient transferred to [facility] on 03/29, back to [facility] on 04/02 for increased SOB and significantly elevated troponin. Now back on [facility] Acute hypoxic respiratory failure CHF and pulmonary edema ; history of tobacco abuse Suspect worsening respiratory status due to CHF and possible underlying COPD. Required CPAP again on 04/02 and was transferred back to [facility]. CXR with significant pulmonary edema [...] Out FOLLOW-UP APPOINTMENTS ALREADY SCHEDULED WITH A [facility] PROVIDER: No future appointments. Discharge Information Row Name ED to Hosp-Admission (Current) from 03/24/[address] [facility] Care Agency [facility] [...] DATE: April 08, 2018 TIME: 1:09 PM [facility] Magnesiumon 04-08-2018 Magnesium mass conc 1.8 mg/dL Normal 1.7-2.6 [facility] Comment on above: Performed By: #### P TT, NTBNP, HSTNT, CBCDIF, PT, CKCKMB, CMP #### [facility] [address] [place] [address] NURSING PROGon 04-08-2018 Protein mass conc HNO ID: [id number] Author: Emi CabreraRn) ZAK Jo Service: (none) Author Type: Registered Nurse Type: Nursing Progress Note Filed: 04/08/2018 3:12 PM Note Text: Nursing Progress Note Patient Name: Sarina Lovett Patient Location: /10 Daily Note: Discharge instructions reviewed with pt. She is dressed and waiting for her ride home. This note was completed by: Emi Jo RN [facility] Protein mass conc HNO ID: [id number] Author: Emi CabreraRn) ZAK Jo Service: (none) [...] note was completed by: Emi Jo RN [facility] PLAN OF CAREon 04-08-2018 PLAN OF CARE HNO ID: [id number] Author: Sandra Grullon (Plugging Machine Operator) Service: (none) Author Type: Pharmacist Type: Plan [...] time from Discharge Medication List. SANDRA GRULLON, CITY DESIGNER April 08, 2018 1:55 PM Pager: [phone] 04/08/2018 1:55 PM Medication List START taking [...] Your Medications These medications were sent to [facility] [address] [place] [id number] - [id number] [facility] [phone] [address] [facility] [phone] Hours: 24-hours ? atorvastatin 80 mg tablet ? carvedilol 3.125 mg tablet ? clopidogrel 75 mg tablet ? furosemide 40 mg tablet ? hydrALAZINE 25 mg tablet ? nitroglycerin sublingual 0.4 mg SL tablet Normal [facility] THERAPY NTon 04-08-2018 THERAPY NT HNO ID: [id number] Author: Yuko (Tailings Man) Tommy Service: Respiratory Therapy Author Type: (none) Type: Therapy (PT/OT/Speech/Resp) Filed: 04/07/2018 10:42 PM Note Text: RESPIRATORY THERAPY PROGRESS NOTE SERVICE DATE: 04/07/2018 SERVICE TIME: 2239 Patient is refusing NIV for the night at this time. Will continue to monitor and intervene if necessary. SIGNATURE: Yuko Sanders RRT PATIENT NAME: Sarina Lovett DATE: April 07, 2018 TIME: 10:42 PM PAGER/CONTACT #: Fuentes Martinez [facility] Basic Metabolic Panlon 04-07 Anion gap molar conc 13 mmol/L Normal 9-18 [facility] Comment on above: Performed By: #### P TT, NTBNP, HSTNT, CBCDIF, PT, CKCKMB, CMP #### [place] [phone] Calcium mass conc 8.6 mg/dL Normal 8.5-10.5 [facility] Comment on above: Performed By: #### P TT, NTBNP, HSTNT, CBCDIF, PT, CKCKMB, CMP #### [place] [address] Chloride molar conc 98 mmol/L Normal 98-110 [facility] Comment on above: Performed By: #### P TT, NTBNP, HSTNT, CBCDIF, PT, CKCKMB, CMP #### [place] [address] CO2 molar conc 27 mmol/L Normal 23-32 [facility] Comment on above: Performed By: #### P TT, NTBNP, HSTNT, CBCDIF, PT, CKCKMB, CMP #### [place] [phone] Creatinine mass conc 1.74 mg/dL High 0.70-1.40 [facility] Comment on above: Performed By: #### P TT, NTBNP, HSTNT, CBCDIF, PT, CKCKMB, CMP #### [place] [id number] eGFR- Amer. 35 Low >60 [facility] Comment on above: Performed By: #### P TT, NTBNP, HSTNT, CBCDIF, PT, CKCKMB, CMP #### [place] [address] GFR/1.73 sq M predicted among non-blacks MDRD vol rate/area (S/P/Bld) 29 . Low >60 [facility] Comment on above: Performed By: #### P TT, NTBNP, HSTNT, CBCDIF, PT, CKCKMB, CMP #### [place] [id number] Glucose mass conc 145 mg/dL High 65-100 [facility] Comment on above: Performed By: #### P TT, NTBNP, HSTNT, CBCDIF, PT, CKCKMB, CMP #### [place] [phone] Potassium molar conc 4.5 mmol/L Normal 3.5-5.0 [facility] Comment on above: Performed By: #### P TT, NTBNP, HSTNT, CBCDIF, PT, CKCKMB, CMP #### [place] [id number] Sodium molar conc 138 mmol/L Normal 132-148 [facility] Comment on above: Performed By: #### P TT, NTBNP, HSTNT, CBCDIF, PT, CKCKMB, CMP #### [place] [phone] Urea nitrogen mass conc 60 mg/dL High 8-25 [facility] Comment on above: Performed By: #### P TT, NTBNP, HSTNT, CBCDIF, PT, CKCKMB, CMP #### [place] [phone] CASE MANAGEMon 04-07-2018 CASE MANAGEM HNO ID: [id number] Author: Bro Wood (Sw) Service: Care Management Author Type: Building Associate Type: Care Mgt Progress Note Filed: 04/07/2018 11:45 AM Note Text: CARE MANAGEMENT PROGRESS NOTE SERVICE DATE: 04/07/2018 SERVICE TIME: 10:26 AM LOS: 14 days Needs Prior to Discharge: To Be Determined Patient transferred to [facility]. Plan is home health care at discharge. [facility] can accept, home care order needed. Patient may need home O2. Desat study needed. May benefit from [facility] for CHF management. SIGNATURE: KARRIE FORTE PATIENT NAME: Sarina Lovett DATE: April 07, 2018 TIME: 10:26 AM PAGER/CONTACT #: [phone] Normal [facility] CBC and Differentialon 04-07 Abs Baso <0.03 Normal <0.11 [facility] Comment on above: Performed By: #### P TT, NTBNP, HSTNT, CBCDIF, PT, CKCKMB, CMP #### [place] [phone] Abs Portage 0.57 k/uL Normal <0.87 [facility] Comment on above: Performed By: #### P TT, NTBNP, HSTNT, CBCDIF, PT, CKCKMB, CMP #### [place] [phone] Abs Neut 5.40 k/uL Normal 1.45-7.50 [facility] Comment on above: Performed By: #### P TT, NTBNP, HSTNT, CBCDIF, PT, CKCKMB, CMP #### [place] [phone] Basophils/100 WBC (Bld) 0.3 % Normal [facility] Comment on above: Performed By: #### P TT, NTBNP, HSTNT, CBCDIF, PT, CKCKMB, CMP #### [place] [address] DTYPE Auto Diff Normal [facility] Comment on above: Performed By: #### P TT, NTBNP, HSTNT, CBCDIF, PT, CKCKMB, CMP #### [place] [address] Eosinophils #/vol (Bld) 0.12 10*3/uL Normal <0.46 [facility] Comment on above: Performed By: #### P TT, NTBNP, HSTNT, CBCDIF, PT, CKCKMB, CMP #### [place] [address] Eosinophils/100 WBC (Bld) 1.7 % Normal [facility] Comment on above: Performed By: #### P TT, NTBNP, HSTNT, CBCDIF, PT, CKCKMB, CMP #### [place] [address] Erythrocyte distribution width Ratio (RBC) 13.8 % Normal 11.5-15.0 [facility] Comment on above: Performed By: #### P TT, NTBNP, HSTNT, CBCDIF, PT, CKCKMB, CMP #### [place] [address] Hematocrit Volume Fraction (Bld) 29.9 % Low 36.0-46.0 [facility] Comment on above: Performed By: #### P TT, NTBNP, HSTNT, CBCDIF, PT, CKCKMB, CMP #### [place] [address] Hemoglobin mass conc (Bld) 9.3 g/dL Low 11.5-15.5 [facility] Comment on above: Performed By: #### P TT, NTBNP, HSTNT, CBCDIF, PT, CKCKMB, CMP #### [place] [address] Lymphocytes #/vol (Bld) 0.79 10*3/uL Low 1.00-4.00 [facility] Comment on above: Performed By: #### P TT, NTBNP, HSTNT, CBCDIF, PT, CKCKMB, CMP #### [address] Lymphocytes/100 WBC (Bld) 11.4 % Normal [facility] Comment on above: Performed By: #### P TT, NTBNP, HSTNT, CBCDIF, PT, CKCKMB, CMP #### [place] [address] MCH Entitic mass (RBC) 28.9 pG Normal 26.0-34.0 [facility] Comment on above: Performed By: #### P TT, NTBNP, HSTNT, CBCDIF, PT, CKCKMB, CMP #### [place] [address] MCHC mass conc (RBC) 31.1 g/dL Normal 30.5-36.0 [facility] Comment on above: Performed By: #### P TT, NTBNP, HSTNT, CBCDIF, PT, CKCKMB, CMP #### [place] [phone] MCV Entitic volume (RBC) 92.9 fL Normal 80.0-100.0 [facility] Comment on above: Performed By: #### P TT, NTBNP, HSTNT, CBCDIF, PT, CKCKMB, CMP #### [place] [id number] Monocytes/100 WBC (Bld) 8.3 % Normal [facility] Comment on above: Performed By: #### P TT, NTBNP, HSTNT, CBCDIF, PT, CKCKMB, CMP #### [place] [id number] Neutrophils/100 WBC (Bld) 78.3 % Normal [facility] Comment on above: Performed By: #### P TT, NTBNP, HSTNT, CBCDIF, PT, CKCKMB, CMP #### [place] [phone] Platelet mean volume Entitic volume (Bld) 10.2 fL Normal 9.0-12.7 [facility] Comment on above: Performed By: #### P TT, NTBNP, HSTNT, CBCDIF, PT, CKCKMB, CMP #### [place] [phone] Platelets #/vol (Bld) 235 10*3/uL Normal 150-400 [facility] Comment on above: Performed By: #### P TT, NTBNP, HSTNT, CBCDIF, PT, CKCKMB, CMP #### [place] [phone] RBC #/vol (Bld) 3.22 10*6/uL Low 3.90-5.20 [facility] Comment on above: Performed By: #### P TT, NTBNP, HSTNT, CBCDIF, PT, CKCKMB, CMP #### [place] [phone] WBC #/vol (Bld) 6.90 10*3/uL Normal 3.70-11.00 [facility] Comment on above: Performed By: #### P TT, NTBNP, HSTNT, CBCDIF, PT, CKCKMB, CMP #### [place] [phone] CONSULT PROGon 04-07-2018 Protein mass conc HNO ID: [id number] Author: Clif Dhillon Service: Nephrology Author Type: [...] Exam: Gen: NAD Skin:no rash Heent: AT PR Neck: no JVD CVS: RRR s1s2 Resp: [...] 2-3 weeks Clif Jarvis MD [facility] Normal [facility] Magnesiumon 04-07-2018 Magnesium mass conc 1.9 mg/dL Normal 1.7-2.6 [facility] Comment on above: Performed By: #### P TT, NTBNP, HSTNT, CBCDIF, PT, CKCKMB, CMP #### [facility] [address] [place] [address] PROGRESSon 04-07-2018 Protein mass conc HNO ID: [id number] Author: Jose Jack Service: Pulmonary Disease Author [...] to pulmonary edema secondary to acute non-Q-wave RI Improving with current treatment and now with [...] be extrapolated by contextual derivation. ?? Normal [facility] Protein mass conc HNO ID: [id number] Author: Joy Browne Service: Cardiovascular Disease Author Type: Physician Type: Progress Notes Filed: 04/07/2018 1:11 PM Note Text: Doing very well No sob no chest pain Renal improving Cxr improved. Stable on current rx Ok for discharge Follow up as out patient In one week Continue present treatment No los due to akd Normal [facility] Protein mass conc HNO ID: [id number] Author: Andree Peters Service: General Internal Medicine [...] in SVG to RCA. Patient transferred to [facility] on 03/29, back to [facility] on 04/02 for increased SOB and significantly elevated troponin. Now back on [facility] ? Acute hypoxic respiratory failure CHF and pulmonary edema ; history of tobacco abuse Suspect worsening respiratory status due to CHF and possible underlying COPD. Required CPAP again on 04/02 and was transferred back to [facility]. CXR with significant pulmonary edema [...] home, last A1c 9.3% in 08/2016 at [facility]. Repeat A1c on admission 6.0%. - [...] 03/24/182044 vte non-pharmacologic prophylaxis - none indicated (la,dc) 03/24/182044 activity - mobilize patient ([place]) VTE Prophylaxis: VTE prophylaxis appropriate SIGNATURE: Andree Peters MD PATIENT NAME: Sarina Lovett DATE: April 07, 2018 TIME: 10:11 AM PAGER: [facility] 04-06-2018 [facility] HNO ID: [id number] Author: Gwendolyn (RtAmanda Benítez Service: Radiology Author Type: Radiology Scheduler Type: Allied Health Filed: 04/06/2018 6:24 AM [...] Arya April 06, 2018 6:23 AM Normal [facility] Basic Metabolic Panlon 04-06 Anion gap molar conc 11 mmol/L Normal 9-18 [facility] Comment on above: Performed By: #### P TT, NTBNP, HSTNT, CBCDIF, PT, CKCKMB, CMP #### [place] [address] Calcium mass conc 8.7 mg/dL Normal 8.5-10.5 [facility] Comment on above: Performed By: #### P TT, NTBNP, HSTNT, CBCDIF, PT, CKCKMB, CMP #### [place] [phone] Chloride molar conc 97 mmol/L Low 98-110 [facility] Comment on above: Performed By: #### P TT, NTBNP, HSTNT, CBCDIF, PT, CKCKMB, CMP #### [place] [phone] CO2 molar conc 29 mmol/L Normal 23-32 [facility] Comment on above: Performed By: #### P TT, NTBNP, HSTNT, CBCDIF, PT, CKCKMB, CMP #### [place] [phone] Creatinine mass conc 1.89 mg/dL High 0.70-1.40 [facility] Comment on above: Performed By: #### P TT, NTBNP, HSTNT, CBCDIF, PT, CKCKMB, CMP #### [place] [address] eGFR- Amer. 32 Low >60 [facility] Comment on above: Performed By: #### P TT, NTBNP, HSTNT, CBCDIF, PT, CKCKMB, CMP #### [address] GFR/1.73 sq M predicted among non-blacks MDRD vol rate/area (S/P/Bld) 26 . Low >60 [facility] Comment on above: Performed By: #### P TT, NTBNP, HSTNT, CBCDIF, PT, CKCKMB, CMP #### [address] Glucose mass conc 134 mg/dL High 65-100 [facility] Comment on above: Performed By: #### P TT, NTBNP, HSTNT, CBCDIF, PT, CKCKMB, CMP #### [place] [phone] Potassium molar conc 5.1 mmol/L High 3.5-5.0 [facility] Comment on above: Performed By: #### P TT, NTBNP, HSTNT, CBCDIF, PT, CKCKMB, CMP #### [place] [id number] Sodium molar conc 137 mmol/L Normal 132-148 [facility] Comment on above: Performed By: #### P TT, NTBNP, HSTNT, CBCDIF, PT, CKCKMB, CMP #### [address] Urea nitrogen mass conc 62 mg/dL High 8-25 [facility] Comment on above: Performed By: #### P TT, NTBNP, HSTNT, CBCDIF, PT, CKCKMB, CMP #### [address] CBC and Differentialon 04-06 Abs Baso <0.03 Normal <0.11 [facility] Comment on above: Performed By: #### P TT, NTBNP, HSTNT, CBCDIF, PT, CKCKMB, CMP #### [place] [phone] Abs [place] 0.53 k/uL Normal <0.87 [facility] Comment on above: Performed By: #### P TT, NTBNP, HSTNT, CBCDIF, PT, CKCKMB, CMP #### [place] [address] Abs Neut 5.35 k/uL Normal 1.45-7.50 [facility] Comment on above: Performed By: #### P TT, NTBNP, HSTNT, CBCDIF, PT, CKCKMB, CMP #### [address] Basophils/100 WBC (Bld) 0.3 % Normal [facility] Comment on above: Performed By: #### P TT, NTBNP, HSTNT, CBCDIF, PT, CKCKMB, CMP #### [place] [id number] DTYPE Auto Diff Normal [facility] Comment on above: Performed By: #### P TT, NTBNP, HSTNT, CBCDIF, PT, CKCKMB, CMP #### [place] [address] Eosinophils #/vol (Bld) 0.12 10*3/uL Normal <0.46 [facility] Comment on above: Performed By: #### P TT, NTBNP, HSTNT, CBCDIF, PT, CKCKMB, CMP #### [place] [phone] Eosinophils/100 WBC (Bld) 1.8 % Normal [facility] Comment on above: Performed By: #### P TT, NTBNP, HSTNT, CBCDIF, PT, CKCKMB, CMP #### [place] [address] Erythrocyte distribution width Ratio (RBC) 14.0 % Normal 11.5-15.0 [facility] Comment on above: Performed By: #### P TT, NTBNP, HSTNT, CBCDIF, PT, CKCKMB, CMP #### [place] [address] Hematocrit Volume Fraction (Bld) 29.4 % Low 36.0-46.0 [facility] Comment on above: Performed By: #### P TT, NTBNP, HSTNT, CBCDIF, PT, CKCKMB, CMP #### [place] [address] Hemoglobin mass conc (Bld) 9.5 g/dL Low 11.5-15.5 [facility] Comment on above: Performed By: #### P TT, NTBNP, HSTNT, CBCDIF, PT, CKCKMB, CMP #### [place] [address] Lymphocytes #/vol (Bld) 0.76 10*3/uL Low 1.00-4.00 [facility] Comment on above: Performed By: #### P TT, NTBNP, HSTNT, CBCDIF, PT, CKCKMB, CMP #### [place] [id number] Lymphocytes/100 WBC (Bld) 11.2 % Normal [facility] Comment on above: Performed By: #### P TT, NTBNP, HSTNT, CBCDIF, PT, CKCKMB, CMP #### [place] [id number] MCH Entitic mass (RBC) 29.2 pG Normal 26.0-34.0 [facility] Comment on above: Performed By: #### P TT, NTBNP, HSTNT, CBCDIF, PT, CKCKMB, CMP #### [place] [phone] MCHC mass conc (RBC) 32.3 g/dL Normal 30.5-36.0 [facility] Comment on above: Performed By: #### P TT, NTBNP, HSTNT, CBCDIF, PT, CKCKMB, CMP #### [place] [phone] MCV Entitic volume (RBC) 90.5 fL Normal 80.0-100.0 [facility] Comment on above: Performed By: #### P TT, NTBNP, HSTNT, CBCDIF, PT, CKCKMB, CMP #### [place] [phone] Monocytes/100 WBC (Bld) 7.8 % Normal [facility] Comment on above: Performed By: #### P TT, NTBNP, HSTNT, CBCDIF, PT, CKCKMB, CMP #### [place] [phone] Neutrophils/100 WBC (Bld) 78.9 % Normal [facility] Comment on above: Performed By: #### P TT, NTBNP, HSTNT, CBCDIF, PT, CKCKMB, CMP #### [place] [phone] Platelet mean volume Entitic volume (Bld) 10.1 fL Normal 9.0-12.7 [facility] Comment on above: Performed By: #### P TT, NTBNP, HSTNT, CBCDIF, PT, CKCKMB, CMP #### [place] [phone] Platelets #/vol (Bld) 253 10*3/uL Normal 150-400 [facility] Comment on above: Performed By: #### P TT, NTBNP, HSTNT, CBCDIF, PT, CKCKMB, CMP #### [place] [phone] RBC #/vol (Bld) 3.25 10*6/uL Low 3.90-5.20 [facility] Comment on above: Performed By: #### P TT, NTBNP, HSTNT, CBCDIF, PT, CKCKMB, CMP #### [facility] [address] [place] [address] WBC #/vol (Bld) 6.78 10*3/uL Normal 3.70-11.00 [facility] Comment on above: Performed By: #### P TT, NTBNP, HSTNT, CBCDIF, PT, CKCKMB, CMP #### [facility] [address] [place] [address] CONSULT PROGon 04-06-2018 Protein mass conc HNO ID: [id number] Author: Clif Dhillon Service: Nephrology Author Type: [...] with lasix Clif Jarvis MD [facility] Normal [facility] Magnesiumon 04-06-2018 Magnesium mass conc 2.1 mg/dL Normal 1.7-2.6 [facility] Comment on above: Performed By: #### P TT, NTBNP, HSTNT, CBCDIF, PT, CKCKMB, CMP #### [facility] [address] [place] [address] PROGRESSon 04-06-2018 Protein mass conc HNO ID: [id number] Author: Joy Browne Service: Cardiovascular Disease Author Type: Physician Type: Progress Notes Filed: 04/06/2018 2:02 PM Note Text: Patient is doing better Cxr showed resolution of congestion Renal function fairly stable. Would like to keep patient on dry side Will resume oral lasix tomorrow Dopamine is off Normal [facility] Protein mass conc HNO ID: [id number] Author: Jose Jack Service: Pulmonary Disease Author [...] to pulmonary edema secondary to acute non-Q-wave RI. Slowly improving with current treatment. We'll continue [...] be extrapolated by contextual derivation. ?? Normal [facility] Protein mass conc HNO ID: [id number] Author: Mary Thao Service: Hospital Medicine Author Type: Physician Type: Progress Notes Filed: 04/06/2018 10:48 AM Note Text: HOSPITAL MEDICINE [facility] PROGRESS NOTE NAME: Sarina Lovett [...] in SVG to RCA. Patient transferred to [facility] on 03/29, back to [facility] on 04/02 for increased SOB and significantly elevated troponin. ? Acute hypoxic respiratory failure CHF and pulmonary edema ; history of tobacco abuse Suspect worsening respiratory status due to CHF and possible underlying COPD. Required CPAP again on 04/02 and was transferred back to [facility]. CXR with significant pulmonary edema [...] home, last A1c 9.3% in 08/2016 at [facility]. Repeat A1c on admission 6.0%. - [...] Score: Pt. Sleeping (Do Not Use With BACK TENDER PULP DRIER Meds) PHYSICAL EXAM: General: Alert, no distress, [...] dr. Dumas ? Mary Thao MD 04/06/18 [facility] THERAPY NTon 04-06-2018 THERAPY NT HNO ID: [id number] Author: Leydi (OtJass Hansen Service: Occupational Therapy Author Type: Occupational Therapist Type: Therapy (PT/OT/Speech/Resp) Filed: 04/06/2018 11:39 AM Note Text: Occupational Therapy Treatment SERVICE DATE: 04/06/2018 SERVICE TIME: 0945 to 101 ROOM: [place] [address] Recommended Discharge Disposition: Home OT Anticipated Discharge Needs: Physical Assist at Home Physical Assist at Home for: Cleaning;Laundry;Self Care;Shopping;Transpo rtation;Meals Recommended Discharge Equipment: Grab Bars-Shower;Grab Bars-Toilet;Hand Held Shower;Long Handled Sponge;Wheeled Walker;Assistant Manager Retail;Shower Chair OT Recommendations to Nursing: To Bathroom [...] of daily living (ADL) Interventions Provided: Self Retirement Management (26428);Therapeutic Activity (42864) Therapeutic Activity (20008) Treatment Minutes: 10 1 unit Skilled Intervention(s): Instruction in sit to and from stand technique with proper hand placement and body positioning at edge of bed/chair Education with gentle AROM exercises for BUE, rest breaks provided. Encouraged to complete shoulder flex, elbow flex /ext and wrist flex and ext from chair level. Self Retirement Management (38904) Treatment Minutes: 15 1 unit Skilled Intervention(s): [...] respiratory failure Relevant Past Medical History: acute RI, CAD, CABG, CKD, HTN, diverticulitis, psych d/o, [...] evaluation/treatment. SIGNATURE: RUFINO Mckeon/Shima PATIENT NAME: Sarina Lvoett DATE: April 06, 2018 TIME: 11:37 AM [facility] XR CHEST 1V FRONTALon 2018 XR [...] Slight interval improvement diffuse bilateral airspace opacities. Chef De Froid: PSCB Transcribe Date/Time: Apr 06 2018 7:00A Dictated by : KIRSTIE ANDRADE MD This examination was interpreted and the report reviewed and electronically signed by: KIRSTIE ANDRADE MD on Apr 06 2018 7:01AM EST [id number] N [facility] ALLIED HEALTHon 04-05-2018 ALLIED HEALTH HNO ID: [id number] Author: Amanda Koenig (Rt) Service: Radiology Author Type: Radiology Scheduler Type: Allied Health Filed: 04/05/2018 6:40 AM [...] RT April 05, 2018 6:40 AM Normal [facility] Basic Metabolic Panlon 04-05 Anion gap molar conc 11 mmol/L Normal 9-18 [facility] Comment on above: Performed By: #### P TT, NTBNP, HSTNT, CBCDIF, PT, CKCKMB, CMP #### [place] [address] Calcium mass conc 8.8 mg/dL Normal 8.5-10.5 [facility] Comment on above: Performed By: #### P TT, NTBNP, HSTNT, CBCDIF, PT, CKCKMB, CMP #### [place] [address] Chloride molar conc 99 mmol/L Normal 98-110 [facility] Comment on above: Performed By: #### P TT, NTBNP, HSTNT, CBCDIF, PT, CKCKMB, CMP #### [place] [address] CO2 molar conc 26 mmol/L Normal 23-32 [facility] Comment on above: Performed By: #### P TT, NTBNP, HSTNT, CBCDIF, PT, CKCKMB, CMP #### [place] [address] Creatinine mass conc 1.77 mg/dL High 0.70-1.40 [facility] Comment on above: Performed By: #### P TT, NTBNP, HSTNT, CBCDIF, PT, CKCKMB, CMP #### [place] [address] eGFR- Amer. 34 Low >60 [facility] Comment on above: Performed By: #### P TT, NTBNP, HSTNT, CBCDIF, PT, CKCKMB, CMP #### [place] [phone] GFR/1.73 sq M predicted among non-blacks MDRD vol rate/area (S/P/Bld) 28 . Low >60 [facility] Comment on above: Performed By: #### P TT, NTBNP, HSTNT, CBCDIF, PT, CKCKMB, CMP #### [place] [phone] Glucose mass conc 125 mg/dL High 65-100 [facility] Comment on above: Performed By: #### P TT, NTBNP, HSTNT, CBCDIF, PT, CKCKMB, CMP #### [address] Potassium molar conc 4.9 mmol/L Normal 3.5-5.0 [facility] Comment on above: Result Comment: Revi ewed Performed By: #### P TT, NTBNP, HSTNT, CBCDIF, PT, CKCKMB, CMP #### [place] [phone] Sodium molar conc 136 mmol/L Normal 132-148 [facility] Comment on above: Performed By: #### P TT, NTBNP, HSTNT, CBCDIF, PT, CKCKMB, CMP #### [place] [phone] Urea nitrogen mass conc 63 mg/dL High 8-25 [facility] Comment on above: Performed By: #### P TT, NTBNP, HSTNT, CBCDIF, PT, CKCKMB, CMP #### [phone] CASE MANAGEMon 04-05-2018 CASE MANAGEM HNO ID: [id number] Author: Chiara Bethea (Lisw-S) Service: Case Management Author Type: Building Associate Type: Care Mgt Progress Note Filed: 04/05/2018 2:25 PM Note Text: CARE MANAGEMENT PROGRESS NOTE SERVICE DATE: 04/05/2018 SERVICE TIME: 2:24 PM LOS: 12 days Needs Prior to Discharge: To Be Determined Pt now on dopamine gtt. Nephrology on consult. SW will remain available for needs. SIGNATURE: MITALI Cash PATIENT NAME: Sarina Lovett DATE: April 05, 2018 TIME: 2:24 PM PAGER/CONTACT #: [phone] Normal [facility] CBC and Differentialon 04-05 Abs Baso <0.03 Normal <0.11 [facility] Comment on above: Performed By: #### P TT, NTBNP, HSTNT, CBCDIF, PT, CKCKMB, CMP #### [place] [address] Abs Portage 0.68 k/uL Normal <0.87 [facility] Comment on above: Performed By: #### P TT, NTBNP, HSTNT, CBCDIF, PT, CKCKMB, CMP #### [place] [address] Abs Neut 6.23 k/uL Normal 1.45-7.50 [facility] Comment on above: Performed By: #### P TT, NTBNP, HSTNT, CBCDIF, PT, CKCKMB, CMP #### [place] [address] Basophils/100 WBC (Bld) 0.2 % Normal [facility] Comment on above: Performed By: #### P TT, NTBNP, HSTNT, CBCDIF, PT, CKCKMB, CMP #### [place] [address] DTYPE Auto Diff Normal [facility] Comment on above: Performed By: #### P TT, NTBNP, HSTNT, CBCDIF, PT, CKCKMB, CMP #### [place] [id number] Eosinophils #/vol (Bld) 0.20 10*3/uL Normal <0.46 [facility] Comment on above: Performed By: #### P TT, NTBNP, HSTNT, CBCDIF, PT, CKCKMB, CMP #### [place] [address] Eosinophils/100 WBC (Bld) 2.5 % Normal [facility] Comment on above: Performed By: #### P TT, NTBNP, HSTNT, CBCDIF, PT, CKCKMB, CMP #### [place] [address] Erythrocyte distribution width Ratio (RBC) 13.8 % Normal 11.5-15.0 [facility] Comment on above: Performed By: #### P TT, NTBNP, HSTNT, CBCDIF, PT, CKCKMB, CMP #### [place] [address] Hematocrit Volume Fraction (Bld) 28.3 % Low 36.0-46.0 [facility] Comment on above: Performed By: #### P TT, NTBNP, HSTNT, CBCDIF, PT, CKCKMB, CMP #### [place] [address] Hemoglobin mass conc (Bld) 9.2 g/dL Low 11.5-15.5 [facility] Comment on above: Performed By: #### P TT, NTBNP, HSTNT, CBCDIF, PT, CKCKMB, CMP #### [place] [address] Lymphocytes #/vol (Bld) 0.90 10*3/uL Low 1.00-4.00 [facility] Comment on above: Performed By: #### P TT, NTBNP, HSTNT, CBCDIF, PT, CKCKMB, CMP #### [address] Lymphocytes/100 WBC (Bld) 11.2 % Normal [facility] Comment on above: Performed By: #### P TT, NTBNP, HSTNT, CBCDIF, PT, CKCKMB, CMP #### [place] [address] MCH Entitic mass (RBC) 29.3 pG Normal 26.0-34.0 [facility] Comment on above: Performed By: #### P TT, NTBNP, HSTNT, CBCDIF, PT, CKCKMB, CMP #### [place] [address] MCHC mass conc (RBC) 32.5 g/dL Normal 30.5-36.0 [facility] Comment on above: Performed By: #### P TT, NTBNP, HSTNT, CBCDIF, PT, CKCKMB, CMP #### [place] [address] MCV Entitic volume (RBC) 90.1 fL Normal 80.0-100.0 [facility] Comment on above: Performed By: #### P TT, NTBNP, HSTNT, CBCDIF, PT, CKCKMB, CMP #### [place] [id number] Monocytes/100 WBC (Bld) 8.5 % Normal [facility] Comment on above: Performed By: #### P TT, NTBNP, HSTNT, CBCDIF, PT, CKCKMB, CMP #### [address] Neutrophils/100 WBC (Bld) 77.6 % Normal [facility] Comment on above: Performed By: #### P TT, NTBNP, HSTNT, CBCDIF, PT, CKCKMB, CMP #### [place] [id number] Platelet mean volume Entitic volume (Bld) 10.2 fL Normal 9.0-12.7 [facility] Comment on above: Performed By: #### P TT, NTBNP, HSTNT, CBCDIF, PT, CKCKMB, CMP #### [place] [id number] [place] [phone] Platelets #/vol (Bld) 241 10*3/uL Normal 150-400 [facility] Comment on above: Performed By: #### P TT, NTBNP, HSTNT, CBCDIF, PT, CKCKMB, CMP #### [place] [phone] RBC #/vol (Bld) 3.14 10*6/uL Low 3.90-5.20 [facility] Comment on above: Performed By: #### P TT, NTBNP, HSTNT, CBCDIF, PT, CKCKMB, CMP #### [place] [phone] WBC #/vol (Bld) 8.03 10*3/uL Normal 3.70-11.00 [facility] Comment on above: Performed By: #### P TT, NTBNP, HSTNT, CBCDIF, PT, CKCKMB, CMP #### [place] [phone] CNCOon 04-05-2018 CNCO Letter Text April 05, 2018 Sarina Lovett [address] [facility] [address] Dear Ms. Lovett, Thank you for choosing [facility] for your medical care. To help reduce healthcare costs, it is important for us to collect co-payments at the time of service. We are sorry we missed you when you were here on 03/24/2018. According to your insurance company, you are responsible for a co-payment of $1725.00. Please mail your check or money order, payable to [facility] along with the stub below, in the enclosed envelope. If you would like to pay with your credit card, please call [phone] for assistance or pay online at [email or web address]. Again, thank you for choosing [facility]. Sincerely, Mitchell Beck Acct Patient Resource Protection Specialist Please detach and return in the enclosed envelope. Pay online at [email or web address] Patient Name: Sarina Lovett EMPI Number: [id number] Date of Service: 03/24/2018 Co-Pay Due: 1725.00 Amount Enclosed: $ .__ Please make checks payable to [facility]. Normal [facility] CONSULT PROGon 04-05-2018 Protein mass conc HNO ID: [id number] Author: Clif Dhillon Service: Nephrology Author Type: [...] CPAP/O2, and lasix. She was transferred to [facility] after improvement but re admitted to [facility] for worsening respiratory status in setting of [...] drip today 3. Anemia Clif Jarvis MD [facility] kidney [place] Normal [facility] Magnesiumon 04-05-2018 Magnesium mass conc 2.1 mg/dL Normal 1.7-2.6 [facility] Comment on above: Performed By: #### P TT, NTBNP, HSTNT, CBCDIF, PT, CKCKMB, CMP #### [facility] [address] [place] [address] NUTRITIONon 04-05-2018 NUTRITION HNO ID: [id number] Author: Ophelia Mackenzie Service: Nutrition Therapy Author Type: Special Events Manager Type: Nutrition Filed: 04/06/2018 2:52 PM Note [...] April 05, 2018 TIME: 3:00 PM PAGER: [phone] [facility] PROGRESSon 04-05-2018 Protein mass conc HNO ID: [id number] Author: Joy Browne Service: Cardiovascular Disease Author [...] encounter diagnosis) (N17.9) JULIETA (acute kidney injury) ([facility]) (E87.5) Hyperkalemia (R74.8) Elevated troponin (I21.4) NSTEMI (non-ST elevated myocardial infarction) ([facility]) (I20.0) Unstable angina pectoris ([facility]) (I25.110) Atherosclerosis of coronary artery of [place] heart with unstable angina pectoris, unspecified vessel or lesion type ([facility]) (I10) Essential hypertension, benign (I16.1) Hypertensive emergency (F99) Psychiatric disorder (Z72.0) Tobacco abuse (I50.9) Acute decompensated heart failure ([facility]) (J96.01) Acute respiratory failure with hypoxia (HCC) (N17.9, N18.3) Acute renal failure superimposed on stage 3 chronic kidney disease, unspecified acute renal failure type (HCC) (F17.200) Nicotine use disorder Continue present treatment Dc milrinone Add dopamine renal dose Continue with iv lasix Repeat cxr SIGNATURE: Joy Browne MD DATE: April 05, 2018 TIME: 5:50 PM [facility] Protein mass conc HNO ID: [id number] Author: Jose Jack Service: Pulmonary Disease Author [...] to pulmonary edema secondary to acute non-Q-wave RI. Clinically and radiographically appears to be slowly [...] be extrapolated by contextual derivation. ?? Normal [facility] Protein mass conc HNO ID: [id number] Author: Kinsey Dumas MD Service: Hospital Medicine [...] Milrinone IV ? Mary Thao MD 04/05/18 [facility] MEDICINE [facility] PROGRESS NOTE NAME: Sarina Lovett [...] in SVG to RCA. Patient transferred to [facility] on 03/29, back to [facility] on 04/02 for increased SOB and significantly elevated troponin. Acute hypoxic respiratory failure Likely COPD; history of tobacco abuse Suspect worsening respiratory status due to CHF and possible underlying COPD. Required CPAP again on 04/02 and was transferred back to [facility]. CXR with significant pulmonary edema [...] home, last A1c 9.3% in 08/2016 at [facility]. Repeat A1c on admission 6.0%. - [...] Dispo - continue to monitor in [facility] SUBJECTIVE INTERVAL HPI: Ms. Lovett feels well [...] Score: Pt. Sleeping (Do Not Use With BACK TENDER PULP DRIER Meds) PHYSICAL EXAM: General: Alert, no distress, [...] MD Family Medicine PGY2 April 05, 2018 [facility] THERAPY NTon 04-05-2018 THERAPY NT HNO ID: [id number] Author: Madeline CabreraTailings Man) LALO Paredes Service: Respiratory Therapy Author Type: Respiratory Therapist Type: Therapy (PT/OT/Speech/Resp) Filed: 04/05/2018 3:52 AM Note Text: Pt wanted to come off cpap. RN notified. Will continue to monitor and intervene if necessary. [facility] XR CHEST 1V FRONTAL PORTon 0 [...] cardiomediastinal silhouette. Other: . IMPRESSION: As above Chef De Froid: PSCGrace Transcribe Date/Time: Apr 05 2018 7:54A Dictated by : SLICK DUNN MD This examination was interpreted and the report reviewed and electronically signed by: SLICK DUNN MD on Apr 05 2018 7:55AM EST [id number] N [facility] ALLIED HEALTHon 04-04-2018 ALLIED HEALTH HNO ID: [id number] Author: Deanna (Rt) Amanda Reyes Service: (none) Author Type: Radiology Scheduler Type: Allied Health Filed: 04/04/2018 11:12 AM [...] RT Delma April 04, 2018 11:11 AM [facility] Basic Metabolic Panlon 04-04 Anion gap molar conc 13 mmol/L Normal 9-18 [facility] Comment on above: Performed By: #### P TT, NTBNP, HSTNT, CBCDIF, PT, CKCKMB, CMP #### [place] [phone] Calcium mass conc 8.9 mg/dL Normal 8.5-10.5 [facility] Comment on above: Performed By: #### P TT, NTBNP, HSTNT, CBCDIF, PT, CKCKMB, CMP #### [place] [phone] Chloride molar conc 96 mmol/L Low 98-110 [facility] Comment on above: Performed By: #### P TT, NTBNP, HSTNT, CBCDIF, PT, CKCKMB, CMP #### [place] [phone] CO2 molar conc 28 mmol/L Normal 23-32 [facility] Comment on above: Performed By: #### P TT, NTBNP, HSTNT, CBCDIF, PT, CKCKMB, CMP #### [place] [phone] Creatinine mass conc 1.84 mg/dL High 0.70-1.40 [facility] Comment on above: Performed By: #### P TT, NTBNP, HSTNT, CBCDIF, PT, CKCKMB, CMP #### [place] [phone] eGFR- Amer. 33 Low >60 [facility] Comment on above: Performed By: #### P TT, NTBNP, HSTNT, CBCDIF, PT, CKCKMB, CMP #### [place] [phone] GFR/1.73 sq M predicted among non-blacks MDRD vol rate/area (S/P/Bld) 27 . Low >60 [facility] Comment on above: Performed By: #### P TT, NTBNP, HSTNT, CBCDIF, PT, CKCKMB, CMP #### [place] [phone] Glucose mass conc 167 mg/dL High 65-100 [facility] Comment on above: Performed By: #### P TT, NTBNP, HSTNT, CBCDIF, PT, CKCKMB, CMP #### [place] [phone] Potassium molar conc 3.9 mmol/L Normal 3.5-5.0 [facility] Comment on above: Performed By: #### P TT, NTBNP, HSTNT, CBCDIF, PT, CKCKMB, CMP #### [place] [address] Sodium molar conc 137 mmol/L Normal 132-148 [facility] Comment on above: Performed By: #### P TT, NTBNP, HSTNT, CBCDIF, PT, CKCKMB, CMP #### [place] [phone] Urea nitrogen mass conc 67 mg/dL High 8-25 [facility] Comment on above: Performed By: #### P TT, NTBNP, HSTNT, CBCDIF, PT, CKCKMB, CMP #### [place] [phone] Anion gap molar conc 16 mmol/L Normal 9-18 [facility] Comment on above: Performed By: #### P TT, NTBNP, HSTNT, CBCDIF, PT, CKCKMB, CMP #### [place] [phone] Calcium mass conc 8.7 mg/dL Normal 8.5-10.5 [facility] Comment on above: Performed By: #### P TT, NTBNP, HSTNT, CBCDIF, PT, CKCKMB, CMP #### [place] [phone] Chloride molar conc 94 mmol/L Low 98-110 [facility] Comment on above: Performed By: #### P TT, NTBNP, HSTNT, CBCDIF, PT, CKCKMB, CMP #### [place] [phone] CO2 molar conc 27 mmol/L Normal 23-32 [facility] Comment on above: Performed By: #### P TT, NTBNP, HSTNT, CBCDIF, PT, CKCKMB, CMP #### [place] [phone] Creatinine mass conc 1.84 mg/dL High 0.70-1.40 [facility] Comment on above: Performed By: #### P TT, NTBNP, HSTNT, CBCDIF, PT, CKCKMB, CMP #### [place] [phone] eGFR- Amer. 33 Low >60 [facility] Comment on above: Performed By: #### P TT, NTBNP, HSTNT, CBCDIF, PT, CKCKMB, CMP #### [place] [address] GFR/1.73 sq M predicted among non-blacks MDRD vol rate/area (S/P/Bld) 27 . Low >60 [facility] Comment on above: Performed By: #### P TT, NTBNP, HSTNT, CBCDIF, PT, CKCKMB, CMP #### [address] Glucose mass conc 135 mg/dL High 65-100 [facility] Comment on above: Performed By: #### P TT, NTBNP, HSTNT, CBCDIF, PT, CKCKMB, CMP #### [place] [phone] Potassium molar conc 3.4 mmol/L Low 3.5-5.0 [facility] Comment on above: Performed By: #### P TT, NTBNP, HSTNT, CBCDIF, PT, CKCKMB, CMP #### [place] [phone] Sodium molar conc 137 mmol/L Normal 132-148 [facility] Comment on above: Performed By: #### P TT, NTBNP, HSTNT, CBCDIF, PT, CKCKMB, CMP #### [place] [phone] Urea nitrogen mass conc 68 mg/dL High 8-25 [facility] Comment on above: Performed By: #### P TT, NTBNP, HSTNT, CBCDIF, PT, CKCKMB, CMP #### [place] [phone] CASE MANAGEMon 04-04-2018 CASE MANAGEM HNO ID: [id number] Author: Chiara Bethea (Lisw-S) Service: Case Management Author Type: Building Associate Type: Care Mgt Progress Note Filed: 04/04/2018 12:15 PM Note Text: CARE MANAGEMENT PROGRESS NOTE SERVICE DATE: 04/04/2018 SERVICE TIME: 12:14 PM LOS: 11 days Needs Prior to Discharge: To Be Determined Pt on IV Lasix and Milrinone gtt. Skilled needs at d/c TBD. SIGNATURE: MITALI Cash PATIENT NAME: Sarina Lovett DATE: April 04, 2018 TIME: 12:14 PM PAGER/CONTACT #: [phone] Normal [facility] CBCon 04-04-2018 Erythrocyte distribution width Ratio (RBC) 13.5 % Normal 11.5-15.0 [facility] Comment on above: Performed By: #### P TT, NTBNP, HSTNT, CBCDIF, PT, CKCKMB, CMP #### [place] [phone] Hematocrit Volume Fraction (Bld) 26.1 % Low 36.0-46.0 [facility] Comment on above: Performed By: #### P TT, NTBNP, HSTNT, CBCDIF, PT, CKCKMB, CMP #### [place] [phone] Hemoglobin mass conc (Bld) 8.5 g/dL Low 11.5-15.5 [facility] Comment on above: Performed By: #### P TT, NTBNP, HSTNT, CBCDIF, PT, CKCKMB, CMP #### [place] [phone] MCH Entitic mass (RBC) 28.7 pG Normal 26.0-34.0 [facility] Comment on above: Performed By: #### P TT, NTBNP, HSTNT, CBCDIF, PT, CKCKMB, CMP #### [place] [phone] MCHC mass conc (RBC) 32.6 g/dL Normal 30.5-36.0 [facility] Comment on above: Performed By: #### P TT, NTBNP, HSTNT, CBCDIF, PT, CKCKMB, CMP #### [place] [address] MCV Entitic volume (RBC) 88.2 fL Normal 80.0-100.0 [facility] Comment on above: Performed By: #### P TT, NTBNP, HSTNT, CBCDIF, PT, CKCKMB, CMP #### [place] [phone] Platelet mean volume Entitic volume (Bld) 10.4 fL Normal 9.0-12.7 [facility] Comment on above: Performed By: #### P TT, NTBNP, HSTNT, CBCDIF, PT, CKCKMB, CMP #### [place] [phone] Platelets #/vol (Bld) 210 10*3/uL Normal 150-400 [facility] Comment on above: Performed By: #### P TT, NTBNP, HSTNT, CBCDIF, PT, CKCKMB, CMP #### [place] [phone] RBC #/vol (Bld) 2.96 10*6/uL Low 3.90-5.20 [facility] Comment on above: Performed By: #### P TT, NTBNP, HSTNT, CBCDIF, PT, CKCKMB, CMP #### [place] [phone] WBC #/vol (Bld) 6.33 10*3/uL Normal 3.70-11.00 [facility] Comment on above: Performed By: #### P TT, NTBNP, HSTNT, CBCDIF, PT, CKCKMB, CMP #### [place] [phone] CBC and Differentialon 04-04 Abs Baso <0.03 Normal <0.11 [facility] Comment on above: Performed By: #### P TT, NTBNP, HSTNT, CBCDIF, PT, CKCKMB, CMP #### [place] [phone] Abs [place] 0.53 k/uL Normal <0.87 [facility] Comment on above: Performed By: #### P TT, NTBNP, HSTNT, CBCDIF, PT, CKCKMB, CMP #### [address] Abs Neut 5.13 k/uL Normal 1.45-7.50 [facility] Comment on above: Performed By: #### P TT, NTBNP, HSTNT, CBCDIF, PT, CKCKMB, CMP #### [place] [phone] Basophils/100 WBC (Bld) 0.2 % Normal [facility] Comment on above: Performed By: #### P TT, NTBNP, HSTNT, CBCDIF, PT, CKCKMB, CMP #### [place] [phone] DTYPE Auto Diff Normal [facility] Comment on above: Performed By: #### P TT, NTBNP, HSTNT, CBCDIF, PT, CKCKMB, CMP #### [place] [address] Eosinophils #/vol (Bld) 0.17 10*3/uL Normal <0.46 [facility] Comment on above: Performed By: #### P TT, NTBNP, HSTNT, CBCDIF, PT, CKCKMB, CMP #### [place] [address] Eosinophils/100 WBC (Bld) 2.6 % Normal [facility] Comment on above: Performed By: #### P TT, NTBNP, HSTNT, CBCDIF, PT, CKCKMB, CMP #### [place] [address] Erythrocyte distribution width Ratio (RBC) 13.6 % Normal 11.5-15.0 [facility] Comment on above: Performed By: #### P TT, NTBNP, HSTNT, CBCDIF, PT, CKCKMB, CMP #### [place] [address] Hematocrit Volume Fraction (Bld) 25.8 % Low 36.0-46.0 [facility] Comment on above: Performed By: #### P TT, NTBNP, HSTNT, CBCDIF, PT, CKCKMB, CMP #### [place] [address] Hemoglobin mass conc (Bld) 8.6 g/dL Low 11.5-15.5 [facility] Comment on above: Performed By: #### P TT, NTBNP, HSTNT, CBCDIF, PT, CKCKMB, CMP #### [place] [address] Lymphocytes #/vol (Bld) 0.66 10*3/uL Low 1.00-4.00 [facility] Comment on above: Performed By: #### P TT, NTBNP, HSTNT, CBCDIF, PT, CKCKMB, CMP #### [place] [phone] Lymphocytes/100 WBC (Bld) 10.2 % Normal [facility] Comment on above: Performed By: #### P TT, NTBNP, HSTNT, CBCDIF, PT, CKCKMB, CMP #### [place] [phone] MCH Entitic mass (RBC) 29.0 pG Normal 26.0-34.0 [facility] Comment on above: Performed By: #### P TT, NTBNP, HSTNT, CBCDIF, PT, CKCKMB, CMP #### [place] [phone] MCHC mass conc (RBC) 33.3 g/dL Normal 30.5-36.0 [facility] Comment on above: Performed By: #### P TT, NTBNP, HSTNT, CBCDIF, PT, CKCKMB, CMP #### [phone] MCV Entitic volume (RBC) 86.9 fL Normal 80.0-100.0 [facility] Comment on above: Performed By: #### P TT, NTBNP, HSTNT, CBCDIF, PT, CKCKMB, CMP #### [place] [phone] Monocytes/100 WBC (Bld) 8.2 % Normal [facility] Comment on above: Performed By: #### P TT, NTBNP, HSTNT, CBCDIF, PT, CKCKMB, CMP #### [phone] Neutrophils/100 WBC (Bld) 78.8 % Normal [facility] Comment on above: Performed By: #### P TT, NTBNP, HSTNT, CBCDIF, PT, CKCKMB, CMP #### [place] [phone] Platelet mean volume Entitic volume (Bld) 10.3 fL Normal 9.0-12.7 [facility] Comment on above: Performed By: #### P TT, NTBNP, HSTNT, CBCDIF, PT, CKCKMB, CMP #### [place] [phone] Platelets #/vol (Bld) 221 10*3/uL Normal 150-400 [facility] Comment on above: Performed By: #### P TT, NTBNP, HSTNT, CBCDIF, PT, CKCKMB, CMP #### [place] [phone] RBC #/vol (Bld) 2.97 10*6/uL Low 3.90-5.20 [facility] Comment on above: Performed By: #### P TT, NTBNP, HSTNT, CBCDIF, PT, CKCKMB, CMP #### [place] [phone] WBC #/vol (Bld) 6.50 10*3/uL Normal 3.70-11.00 [facility] Comment on above: Performed By: #### P TT, NTBNP, HSTNT, CBCDIF, PT, CKCKMB, CMP #### [place] [phone] CONSULT PROGon 04-04-2018 Protein mass conc HNO ID: [id number] Author: Clif Dhillon Service: Nephrology Author Type: [...] CPAP/O2, and lasix. She was transferred to [facility] after improvement but re admitted to [facility] for worsening respiratory status in setting of [...] April 04, 2018 TIME: 10:43 AM PAGER: [phone] I saw and evaluated the patient. Discussed [...] iron as out pt Clif Jarvis MD [facility] kidney [place] Normal [facility] Enteric Bact Pnl PCRon 04-04 Campy jejun/coli DNA Not Detected Normal [facility] Comment on above: Performed By: #### P TT, NTBNP, HSTNT, CBCDIF, PT, CKCKMB, CMP #### [place] [address] Salmonella spp. DNA Not Detected Normal [facility] Comment on above: Performed By: #### P TT, NTBNP, HSTNT, CBCDIF, PT, CKCKMB, CMP #### [place] [address] Shiga toxin gene(s) Not Detected Normal [facility] Comment on above: Performed By: #### P TT, NTBNP, HSTNT, CBCDIF, PT, CKCKMB, CMP #### [place] [address] Shigella/EIEC DNA Not Detected Normal [facility] Comment on above: Performed By: #### P TT, NTBNP, HSTNT, CBCDIF, PT, CKCKMB, CMP #### [place] [phone] Magnesiumon 04-04-2018 Magnesium mass conc 2.3 mg/dL Normal 1.7-2.6 [facility] Comment on above: Performed By: #### P TT, NTBNP, HSTNT, CBCDIF, PT, CKCKMB, CMP #### [place] [phone] PROGRESSon 04-04-2018 Protein mass conc HNO ID: [id number] Author: Jose Jack Service: Pulmonary Disease Author [...] to pulmonary edema secondary to acute non-Q-wave RI. Clinically and radiographically improving with current treatment [...] be extrapolated by contextual derivation. ?? Normal [facility] Protein mass conc HNO ID: [id number] Author: Joy Browne Service: Cardiovascular Disease Author [...] encounter diagnosis) (N17.9) JULIETA (acute kidney injury) ([facility]) (E87.5) Hyperkalemia (R74.8) Elevated troponin (I21.4) NSTEMI (non-ST elevated myocardial infarction) ([facility]) (I20.0) Unstable angina pectoris ([facility]) (I25.110) Atherosclerosis of coronary artery of [place]am[place] heart with unstable angina pectoris, unspecified vessel or lesion type ([facility]) (I10) Essential hypertension, benign (I16.1) Hypertensive emergency (F99) Psychiatric disorder (Z72.0) Tobacco abuse (I50.9) Acute decompensated heart failure (HCC) Notice k is 3.4 will give potassium supplement Patient is doing better, will keep iv lasix and milrinone for another 24 hrs SIGNATURE: Joy Browne MD DATE: April 04, 2018 TIME: 3:01 PM [facility] Protein mass conc HNO ID: [id number] Author: Kinsey Dumas MD Service: Hospital Medicine [...] ? Mary Thao MD 04/04/18 HOSPITAL MEDICINE [facility] PROGRESS NOTE NAME: Sarina Lovett [...] in SVG to RCA. Patient transferred to [facility] on 03/29, back to [facility] on 04/02 for increased SOB and significantly elevated troponin. ? Acute hypoxic respiratory failure Likely COPD; history of tobacco abuse Suspect worsening respiratory status due to CHF and possible underlying COPD. Required CPAP again on 04/02 and was transferred back to [facility]. CXR with significant pulmonary edema [...] home, last A1c 9.3% in 08/2016 at [facility]. Repeat A1c on admission 6.0%. - [...] Dispo - continue to monitor in [facility] SUBJECTIVE INTERVAL HPI: Ms. Lovett feels well [...] MD Family Medicine PGY2 April 04, 2018 [facility] XR CHEST 1V FRONTAL PORTon 0 [...] sternotomy. Other: . IMPRESSION: Slight interval improvement. Chef De Froid: PSCGrace Transcribe Date/Time: Apr 04 2018 4:00P Dictated by : KIRSTIE ANDRADE MD This examination was interpreted and the report reviewed and electronically signed by: KIRSTIE ANDRADE MD on Apr 04 2018 4:01PM EST [id number] N [facility] ALLIED HEALTHon 04-03-2018 ALLIED HEALTH HNO ID: [id number] Author: Amanda Michael (Rt) Service: Radiology Author Type: Radiology Scheduler Type: Allied Health Filed: 04/03/2018 12:43 PM [...] RT Fernanda April 03, 2018 12:42 PM [facility] Basic Metabolic Panlon 04-03 Calcium mass conc 9.2 mg/dL Normal 8.5-10.5 [facility] Comment on above: Performed By: #### P TT, NTBNP, HSTNT, CBCDIF, PT, CKCKMB, CMP #### [place] [address] CO2 molar conc 23 mmol/L Normal 23-32 [facility] Comment on above: Performed By: #### P TT, NTBNP, HSTNT, CBCDIF, PT, CKCKMB, CMP #### [place] [address] Creatinine mass conc 2.21 mg/dL High 0.70-1.40 [facility] Comment on above: Performed By: #### P TT, NTBNP, HSTNT, CBCDIF, PT, CKCKMB, CMP #### [place] [address] eGFR- Amer. 26 Low >60 [facility] Comment on above: Performed By: #### P TT, NTBNP, HSTNT, CBCDIF, PT, CKCKMB, CMP #### [place] [phone] Glucose mass conc 107 mg/dL High 65-100 [facility] Comment on above: Performed By: #### P TT, NTBNP, HSTNT, CBCDIF, PT, CKCKMB, CMP #### [place] [phone] Potassium molar conc 3.9 mmol/L Normal 3.5-5.0 [facility] Comment on above: Performed By: #### P TT, NTBNP, HSTNT, CBCDIF, PT, CKCKMB, CMP #### [place] [address] Sodium molar conc 137 mmol/L Normal 132-148 [facility] Comment on above: Performed By: #### P TT, NTBNP, HSTNT, CBCDIF, PT, CKCKMB, CMP #### [place] [phone] Urea nitrogen mass conc 75 mg/dL High 8-25 [facility] Comment on above: Performed By: #### P TT, NTBNP, HSTNT, CBCDIF, PT, CKCKMB, CMP #### [place] [phone] CASE MANAGEMon 04-03-2018 CASE MANAGEM HNO ID: [id number] Author: Chiara Bethea (Lisw-S) Service: Case Management Author Type: Building Associate Type: Care Mgt Progress Note Filed: 04/03/2018 1:12 PM Note Text: CARE MANAGEMENT PROGRESS NOTE SERVICE DATE: 04/03/2018 SERVICE TIME: 1:10 PM LOS: 10 days Needs Prior to Discharge: To Be Determined Pt was a transfer from [facility] d/t fluid overload and SOB. Chest XRay pending. Pt to receive 1 unit of PRBC per hospital medicine note. May need HHC at d/c; if so, will need a HHC F2F. SIGNATURE: MITALI Cash PATIENT NAME: Sarina Lovett DATE: April 03, 2018 TIME: 1:10 PM PAGER/CONTACT #: [phone] Normal [facility] CBC and Differentialon 04-03 Abs Baso <0.03 Normal <0.11 [facility] Comment on above: Performed By: #### P TT, NTBNP, HSTNT, CBCDIF, PT, CKCKMB, CMP #### [place] [address] Abs [place] 0.44 k/uL Normal <0.87 [facility] Comment on above: Performed By: #### P TT, NTBNP, HSTNT, CBCDIF, PT, CKCKMB, CMP #### [place] [address] Abs Neut 5.70 k/uL Normal 1.45-7.50 [facility] Comment on above: Performed By: #### P TT, NTBNP, HSTNT, CBCDIF, PT, CKCKMB, CMP #### [address] Basophils/100 WBC (Bld) 0.1 % [facility] Comment on above: Performed By: #### P TT, NTBNP, HSTNT, CBCDIF, PT, CKCKMB, CMP #### [place] [address] DTYPE Auto Diff Normal [facility] Comment on above: Performed By: #### P TT, NTBNP, HSTNT, CBCDIF, PT, CKCKMB, CMP #### [place] [address] Eosinophils #/vol (Bld) 0.08 10*3/uL Normal <0.46 [facility] Comment on above: Performed By: #### P TT, NTBNP, HSTNT, CBCDIF, PT, CKCKMB, CMP #### [address] Eosinophils/100 WBC (Bld) 1.2 % Normal [facility] Comment on above: Performed By: #### P TT, NTBNP, HSTNT, CBCDIF, PT, CKCKMB, CMP #### [place] [address] Erythrocyte distribution width Ratio (RBC) 13.8 % Normal 11.5-15.0 [facility] Comment on above: Performed By: #### P TT, NTBNP, HSTNT, CBCDIF, PT, CKCKMB, CMP #### [address] Hematocrit Volume Fraction (Bld) 23.0 % Low 36.0-46.0 [facility] Comment on above: Performed By: #### P TT, NTBNP, HSTNT, CBCDIF, PT, CKCKMB, CMP #### [place] [address] Hemoglobin mass conc (Bld) 7.5 g/dL Low 11.5-15.5 [facility] Comment on above: Performed By: #### P TT, NTBNP, HSTNT, CBCDIF, PT, CKCKMB, CMP #### [place] [id number] Lymphocytes #/vol (Bld) 0.54 10*3/uL Low 1.00-4.00 [facility] Comment on above: Performed By: #### P TT, NTBNP, HSTNT, CBCDIF, PT, CKCKMB, CMP #### [place] [phone] Lymphocytes/100 WBC (Bld) 8.0 % Normal [facility] Comment on above: Performed By: #### P TT, NTBNP, HSTNT, CBCDIF, PT, CKCKMB, CMP #### [place] [phone] MCH Entitic mass (RBC) 28.5 pG Normal 26.0-34.0 [facility] Comment on above: Performed By: #### P TT, NTBNP, HSTNT, CBCDIF, PT, CKCKMB, CMP #### [place] [phone] MCHC mass conc (RBC) 32.6 g/dL Normal 30.5-36.0 [facility] Comment on above: Performed By: #### P TT, NTBNP, HSTNT, CBCDIF, PT, CKCKMB, CMP #### [place] [phone] MCV Entitic volume (RBC) 87.5 fL Normal 80.0-100.0 [facility] Comment on above: Performed By: #### P TT, NTBNP, HSTNT, CBCDIF, PT, CKCKMB, CMP #### [place] [phone] Monocytes/100 WBC (Bld) 6.5 % Normal [facility] Comment on above: Performed By: #### P TT, NTBNP, HSTNT, CBCDIF, PT, CKCKMB, CMP #### [place] [phone] Neutrophils/100 WBC (Bld) 84.2 % Normal [facility] Comment on above: Performed By: #### P TT, NTBNP, HSTNT, CBCDIF, PT, CKCKMB, CMP #### [place] [phone] Platelet mean volume Entitic volume (Bld) 10.9 fL Normal 9.0-12.7 [facility] Comment on above: Performed By: #### P TT, NTBNP, HSTNT, CBCDIF, PT, CKCKMB, CMP #### [place] [phone] Platelets #/vol (Bld) 207 10*3/uL Normal 150-400 [facility] Comment on above: Performed By: #### P TT, NTBNP, HSTNT, CBCDIF, PT, CKCKMB, CMP #### [place] [phone] RBC #/vol (Bld) 2.63 10*6/uL Low 3.90-5.20 [facility] Comment on above: Performed By: #### P TT, NTBNP, HSTNT, CBCDIF, PT, CKCKMB, CMP #### [facility] [address] [place] [address] WBC #/vol (Bld) 6.77 10*3/uL Normal 3.70-11.00 [facility] Comment on above: Performed By: #### P TT, NTBNP, HSTNT, CBCDIF, PT, CKCKMB, CMP #### [place] [id number] [place] [address] CONSULT PROGon 04-03-2018 Protein mass conc HNO ID: [id number] Author: Clif Dhillon Service: Nephrology Author Type: [...] 5. Anemia: Cont monitoring Clif Jarvis MD [facility] Kidney [place] Normal [facility] Protein mass conc HNO ID: [id number] Author: Kamille Lopez Service: Gastroenterology Author Type: [...] and tolerating diet ? Kamille Lopez CNP [facility] ? Thank you for allowing us to participate in the care of this patient. Please call with questions or concerns. ? SIGNATURE: Kamille Lopez APRN.CNP PATIENT NAME: Sarina Lovett DATE: April 03, 2018 TIME: 10:02 AM PAGER: [phone] [facility] Confirm Blood Typeon 019 ABO/RH(D) Positive [facility] Comment on above: Performed By: #### P TT, NTBNP, HSTNT, CBCDIF, PT, CKCKMB, CMP #### [facility] [address] [place] [address] NURSING PROGon 04-03-2018 Protein mass conc HNO ID: [id number] Author: Sharda CabreraRn) ZAK Damon Service: Critical Care Author Type: Registered Nurse Type: Nursing Progress Note Filed: 04/04/2018 5:22 AM Note Text: Nursing Progress Note Patient Name: Sarina Lovett Patient Location: [place] [address] [address]* Daily Note: This note was completed by: Sharda Damon RN 1936- 1 unit PRBC completed infusing. Dr. Cardenas notified for order for repeat CBC. Ordered for 2200. 2102- Pt with [address] Cardenas notified. New order received for 2G IV mag. 0515- Pt K came back at 3.4. Dr. Cardenas notified for orders. [facility] Protein mass conc HNO ID: [id number] Author: Brayan CabreraRn) ZAK Nichols Service: (none) Author Type: Registered Nurse Type: Nursing Progress Note Filed: 04/03/2018 7:15 PM Note Text: Nursing Progress Note Patient Name: Sarina Lovett Patient Location: [id number]/[facility]CCC- * Daily Note:1640 Dr. Thao ordered unit of PRBC, blood is ready Dr. Thao to go over consent with pt. This note was completed by: Brayan Nichols, RN 1810 Pt family at the bedside, updated on pt condition. Normal [facility] Protein mass conc HNO ID: [id number] Author: Delma CabreraRn) ZAK Garsia Service: Critical [...] have blood transfusion after obtains consent. Normal [facility] Protein mass conc HNO ID: [id number] Author: Constantine Payton) ZAK Potter Service: (none) Author Type: Registered Nurse Type: Nursing Progress Note Filed: 04/03/2018 7:37 AM Note Text: Nursing Progress Note Patient Name: Sarina Lovett Patient Location: [id number]/KCCC- 024* Daily Note: 2300: Received report from ZAK Harris. 2330: Assessment complete, see flow sheet. VSS. 0500: Reassessment complete, see flow sheet. VSS. 0705: Report given to ZAK Nguyễn This note was completed by: Constantine Potter RN [facility] PLAN OF CAREon 04-03-2018 PLAN OF CARE HNO ID: [id number] Author: Radha Castellanos (Pharmacist) Service: Pharmacy Author Type: Pharmacist Type: Plan of Care Filed: 04/04/2018 7:22 AM Note Text: MEDICATION HISTORY AND MEDICATION RECONCILIATION Patient Name:Steven Lovett : 1945 Source of history:Patient: Reliability of source: Appears reliable, although not clear on how she takes all of her medications and Pharmacy records: [facility] in [place] Medication Nonadherence Identified: patient not clear on all directions for medications. The above information represents the best possible medication history: Yes Reconciliation completed? Yes All CYTOMETRY TECHNOLOGIST medications addressed by LIP. No med changes at this time, but will need reconciliation at discharge. Additional comments: Added albuterol, amlodipine, furosemide Adjusted dose of glimepiride, lisinopril Removed iron Allergies: ALLERGIES Allergen Reactions - Statins [Other] Caused severe muscular weakness. - Sulfa (Sulfonamide * Caused severe generalized swelling. - Tape [Other] Severe skin reaction; needs to use paper tape Preferred Pharmacy: [facility] in [place] Current CYTOMETRY TECHNOLOGIST Medications: Prior to Admission medications as of [...] Castellanos, Pharmacist April 04, 2018 7:19 AM [facility] PROGRESSon 04-03-2018 Protein mass conc HNO ID: [id number] Author: Jose Jack Service: Pulmonary Disease Author [...] to pulmonary edema secondary to acute non-Q-wave RI. Clinically and radiographically improving with current treatment. [...] be extrapolated by contextual derivation. ?? Normal [facility] Protein mass conc HNO ID: [id number] Author: Joy Browne Service: Cardiovascular Disease Author Type: Physician Type: Progress Notes Filed: 04/03/2018 12:48 PM Note Text: Reviewed cxr It is better, less congestions Finding showed improvement of heart failure. Continue with milrinone for the next 24hrs. I hope nephrology will not dc diuretic again. We need to keep her on dry side Normal [facility] Protein mass conc HNO ID: [id number] Author: Joy Browne Service: Cardiovascular Disease Author Type: Physician Type: Progress Notes Filed: 04/03/2018 12:44 PM Note Text: INPATIENT PROGRESS NOTES Patient Name: Sarina Lovett SERVICE DATE: 04/03/2018 SERVICE TIME: 12:37 PM PRIMARY SERVICE:Cardiology INTERVAL HPI: [place] more sob last night. Was transferred to [facility]. This morning, she is feeling better. [...] AND PLAN: (N17.9) JULIETA (acute kidney injury) ([facility]) (E87.5) Hyperkalemia (R74.8) Elevated troponin (I21.4) NSTEMI (non-ST elevated myocardial infarction) ([facility]) (I20.0) Unstable angina pectoris ([facility]) (I25.110) Atherosclerosis of coronary artery of [place]am[place] heart with unstable angina pectoris, unspecified vessel or lesion type ([facility]) (I10) Essential hypertension, benign (I16.1) Hypertensive emergency (F99) Psychiatric disorder (Z72.0) Tobacco abuse (I50.9) Acute decompensated heart failure ([facility]) Cxr suggestive of pneumonia, repeat [...] DATE: April 03, 2018 TIME: 12:37 PM [facility] Protein mass conc HNO ID: [id number] Author: Kinsey Dumas MD Service: Hospital Medicine [...] of PRBC. ? Mary Thao MD 04/03/18 [facility] MEDICINE [facility] PROGRESS NOTE NAME: Sarina Lovett [...] in SVG to RCA. Patient transferred to [facility] on 03/29, back to [facility] on 04/02 for increased SOB and significantly elevated troponin. Acute hypoxic respiratory failure Likely COPD; history of tobacco abuse Suspect worsening respiratory status due to CHF and possible underlying COPD. Required CPAP again on 04/02 and was transferred back to [facility]. CXR with significant pulmonary edema [...] home, last A1c 9.3% in 08/2016 at [facility]. Repeat A1c on admission 6.0%. - SSI1 - holding home glimepiride due to JULIETA Tobacco abuse POA: Yes 50 pack-year history, encourage cessation. Psychiatric disorder POA: Yes Patient with history of depression, significant social stressors. - continue zoloft 150mg daily, wellbutrin 150mg daily VTE Prophylaxis - SQH 5000U BID Dispo - continue to monitor in [facility] SUBJECTIVE INTERVAL HPI: Ms. Lovett feels well [...] Family Medicine PGY2 April 03, 2018 Normal [facility] Renal Function Panelon 04-03 Albumin mass conc 3.2 g/dL Low 3.5-5.0 [facility] Comment on above: Performed By: #### P TT, NTBNP, HSTNT, CBCDIF, PT, CKCKMB, CMP #### [place] [address] Anion gap molar conc 17 mmol/L Normal 9-18 [facility] Comment on above: Performed By: #### P TT, NTBNP, HSTNT, CBCDIF, PT, CKCKMB, CMP #### [place] [address] Calcium mass conc 9.1 mg/dL Normal 8.5-10.5 [facility] Comment on above: Performed By: #### P TT, NTBNP, HSTNT, CBCDIF, PT, CKCKMB, CMP #### [place] [phone] Chloride molar conc 97 mmol/L Low 98-110 [facility] Comment on above: Performed By: #### P TT, NTBNP, HSTNT, CBCDIF, PT, CKCKMB, CMP #### [place] [phone] CO2 molar conc 24 mmol/L Normal 23-32 [facility] Comment on above: Performed By: #### P TT, NTBNP, HSTNT, CBCDIF, PT, CKCKMB, CMP #### [place] [address] Creatinine mass conc 2.22 mg/dL High 0.70-1.40 [facility] Comment on above: Performed By: #### P TT, NTBNP, HSTNT, CBCDIF, PT, CKCKMB, CMP #### [address] GFR/1.73 sq M predicted among non-blacks MDRD vol rate/area (S/P/Bld) 22 . Low >60 [facility] Comment on above: Performed By: #### P TT, NTBNP, HSTNT, CBCDIF, PT, CKCKMB, CMP #### [place] [phone] Glucose mass conc 105 mg/dL High 65-100 [facility] Comment on above: Performed By: #### P TT, NTBNP, HSTNT, CBCDIF, PT, CKCKMB, CMP #### [place] [id number] Phosphate mass conc 5.2 mg/dL High 2.5-4.5 [facility] Comment on above: Performed By: #### P TT, NTBNP, HSTNT, CBCDIF, PT, CKCKMB, CMP #### [place] [id number] Potassium molar conc 3.8 mmol/L Normal 3.5-5.0 [facility] Comment on above: Performed By: #### P TT, NTBNP, HSTNT, CBCDIF, PT, CKCKMB, CMP #### [place] [address] Sodium molar conc 138 mmol/L Normal 132-148 [facility] Comment on above: Performed By: #### P TT, NTBNP, HSTNT, CBCDIF, PT, CKCKMB, CMP #### [place] [address] Type and Screenon 04-03-2018 ABO/RH(D) Positive Normal [facility] Comment on above: Performed By: #### P TT, NTBNP, HSTNT, CBCDIF, PT, CKCKMB, CMP #### [place] [address] XR CHEST 2V FRONTAL/LATon XR CHEST 2V [...] bilateral pleural effusions, right greater than left. Chef De Froid: JENNIFER Transcribe Date/Time: Apr 03 2018 1:36P Dictated by : PHILLIP MONTALVO MD This examination was interpreted and the report reviewed and electronically signed by: PHILLIP MONTALVO MD on Apr 03 2018 1:39PM EST [id number] N [facility] ALLIED HEALTHon 04-02-2018 ALLIED HEALTH HNO ID: [id number] Author: Nicole (Tailings Man) LALO Hernandez Service: Respiratory Therapy Author Type: Registered Resp Therapist Type: Allied Health Filed: 04/02/2018 10:28 AM Note Text: Patient on using cpap at this time [facility] HNO ID: [id number] Author: Georgia Barnett (Rt) Amanda Rodriguez Service: Radiology Author Type: Radiology Scheduler Type: Allied Health Filed: 04/02/2018 8:06 AM [...] Rodriguez RT April 02, 2018 8:06 AM [facility] Arterial Blood Gas (FOR WEST USE ONLY)on 04-02-2018 Base Excess Negative [facility] Comment on above: Result Comment: -3 t o 3 Performed By: #### P TT, NTBNP, HSTNT, CBCDIF, PT, CKCKMB, CMP #### [place] [phone] CO2 molar conc 22 mmol/L Normal 22.0-28.0 [facility] Comment on above: Performed By: #### P TT, NTBNP, HSTNT, CBCDIF, PT, CKCKMB, CMP #### [place] [phone] Device Nasal Cannula [facility] Comment on above: Performed By: #### P TT, NTBNP, HSTNT, CBCDIF, PT, CKCKMB, CMP #### [place] [phone] Drawsite Right Brachial Normal [facility] Comment on above: Performed By: #### P TT, NTBNP, HSTNT, CBCDIF, PT, CKCKMB, CMP #### [place] [address] HCO3 molar conc (Bld) 20 mmol/L Low 22-26 [facility] Comment on above: Performed By: #### P TT, NTBNP, HSTNT, CBCDIF, PT, CKCKMB, CMP #### [place] [address] O2 Administered 45.0 Normal [facility] Comment on above: Performed By: #### P TT, NTBNP, HSTNT, CBCDIF, PT, CKCKMB, CMP #### [place] [address] Oxygen ppres (Bld) 81 mm Hg Normal 80-100 [facility] Comment on above: Performed By: #### P TT, NTBNP, HSTNT, CBCDIF, PT, CKCKMB, CMP #### [place] [address] Oxygen ppres (Bld) 95 % Normal 90-98 [facility] Comment on above: Performed By: #### P TT, NTBNP, HSTNT, CBCDIF, PT, CKCKMB, CMP #### [place] [address] pCO2 40 mm Hg Normal 35-48 [facility] Comment on above: Performed By: #### P TT, NTBNP, HSTNT, CBCDIF, PT, CKCKMB, CMP #### [place] [address] pH (Bld) 7.33 [pH] Low 7.35-7.45 [facility] Comment on above: Performed By: #### P TT, NTBNP, HSTNT, CBCDIF, PT, CKCKMB, CMP #### [place] [address] CBC and Differentialon 04-02 Abs Baso <0.03 Normal <0.11 [facility] Comment on above: Performed By: #### P TT, NTBNP, HSTNT, CBCDIF, PT, CKCKMB, CMP #### [place] [address] Abs [place] 0.43 k/uL Normal <0.87 [facility] Comment on above: Performed By: #### P TT, NTBNP, HSTNT, CBCDIF, PT, CKCKMB, CMP #### [place] [address] Abs Neut 7.37 k/uL Normal 1.45-7.50 [facility] Comment on above: Performed By: #### P TT, NTBNP, HSTNT, CBCDIF, PT, CKCKMB, CMP #### [place] [address] Basophils/100 WBC (Bld) 0.1 % [facility] Comment on above: Performed By: #### P TT, NTBNP, HSTNT, CBCDIF, PT, CKCKMB, CMP #### [place] [address] DTYPE Auto Diff Normal [facility] Comment on above: Performed By: #### P TT, NTBNP, HSTNT, CBCDIF, PT, CKCKMB, CMP #### [place] [address] Eosinophils #/vol (Bld) 0.06 10*3/uL Normal <0.46 [facility] Comment on above: Performed By: #### P TT, NTBNP, HSTNT, CBCDIF, PT, CKCKMB, CMP #### [place] [id number] Eosinophils/100 WBC (Bld) 0.7 % Normal [facility] Comment on above: Performed By: #### P TT, NTBNP, HSTNT, CBCDIF, PT, CKCKMB, CMP #### [place] [address] Erythrocyte distribution width Ratio (RBC) 13.7 % Normal 11.5-15.0 [facility] Comment on above: Performed By: #### P TT, NTBNP, HSTNT, CBCDIF, PT, CKCKMB, CMP #### [place] [id number] Hematocrit Volume Fraction (Bld) 24.9 % Low 36.0-46.0 [facility] Comment on above: Performed By: #### P TT, NTBNP, HSTNT, CBCDIF, PT, CKCKMB, CMP #### [place] [address] Hemoglobin mass conc (Bld) 8.2 g/dL Low 11.5-15.5 [facility] Comment on above: Performed By: #### P TT, NTBNP, HSTNT, CBCDIF, PT, CKCKMB, CMP #### [place] [address] Lymphocytes #/vol (Bld) 0.36 10*3/uL Low 1.00-4.00 [facility] Comment on above: Performed By: #### P TT, NTBNP, HSTNT, CBCDIF, PT, CKCKMB, CMP #### [place] [id number] Lymphocytes/100 WBC (Bld) 4.4 % Normal [facility] Comment on above: Performed By: #### P TT, NTBNP, HSTNT, CBCDIF, PT, CKCKMB, CMP #### [place] [id number] MCH Entitic mass (RBC) 28.6 pG Normal 26.0-34.0 [facility] Comment on above: Performed By: #### P TT, NTBNP, HSTNT, CBCDIF, PT, CKCKMB, CMP #### [place] [id number] MCHC mass conc (RBC) 32.9 g/dL Normal 30.5-36.0 [facility] Comment on above: Performed By: #### P TT, NTBNP, HSTNT, CBCDIF, PT, CKCKMB, CMP #### [place] [phone] MCV Entitic volume (RBC) 86.8 fL Normal 80.0-100.0 [facility] Comment on above: Performed By: #### P TT, NTBNP, HSTNT, CBCDIF, PT, CKCKMB, CMP #### [place] [phone] Monocytes/100 WBC (Bld) 5.2 % Normal [facility] Comment on above: Performed By: #### P TT, NTBNP, HSTNT, CBCDIF, PT, CKCKMB, CMP #### [place] [phone] Neutrophils/100 WBC (Bld) 89.6 % Normal [facility] Comment on above: Performed By: #### P TT, NTBNP, HSTNT, CBCDIF, PT, CKCKMB, CMP #### [place] [phone] Platelet mean volume Entitic volume (Bld) 10.6 fL Normal 9.0-12.7 [facility] Comment on above: Performed By: #### P TT, NTBNP, HSTNT, CBCDIF, PT, CKCKMB, CMP #### [place] [phone] Platelets #/vol (Bld) 192 10*3/uL Normal 150-400 [facility] Comment on above: Performed By: #### P TT, NTBNP, HSTNT, CBCDIF, PT, CKCKMB, CMP #### [place] [phone] RBC #/vol (Bld) 2.87 10*6/uL Low 3.90-5.20 [facility] Comment on above: Performed By: #### P TT, NTBNP, HSTNT, CBCDIF, PT, CKCKMB, CMP #### [place] [id number] [place] [id number] WBC #/vol (Bld) 8.23 10*3/uL Normal 3.70-11.00 [facility] Comment on above: Performed By: #### P TT, NTBNP, HSTNT, CBCDIF, PT, CKCKMB, CMP #### [place] [address] CONSULTon 04-02-2018 CONSULT HNO ID: [id number] Author: Jose Jack Service: Pulmonary Disease Author Type: Physician Type: Consults Filed: 04/05/2018 4:13 PM Note Text: [facility] - Consultation SARINA LOVETT : 1945 AGE: 73 SEX: F CSN: [id number] [facility]: [facility] EMERGENCY DEPARTMENT: [id number] ATTENDING PHYSICIAN: MAME BOWERS DATE OF CONSULTATION: 04/02/2018 CONSULTING PHYSICIAN: Jose Jack M.D. PULMONARY CONSULTATION REASON FOR CONSULTATION: Respiratory failure. HISTORY OF PRESENT ILLNESS: The patient is a pleasant 73-year-old female, who presented to the hospital originally with crushing chest pain that was not relieved by any measures. The patient was found to have a non-Q-wave RI and was treated for the above. Subsequently, [...] at home. 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 No calf tenderness or swelling. RN SURGICAL: Awake, alert, and oriented x3 without focal [...] 33 minutes. Jose Jack M.D. Pulmonary/critical Care :[id number] [facility] CONSULT PROGon 04-02-2018 Protein mass conc HNO ID: [id number] Author: Jonathan Mchugh Service: Cardiovascular Disease Author [...] April 02, 2018 Time: 10:13 AM Normal [facility] Comp Metabolic Panelon 04-02 Albumin mass conc 3.3 g/dL Low 3.5-5.0 [facility] Comment on above: Performed By: #### P TT, NTBNP, HSTNT, CBCDIF, PT, CKCKMB, CMP #### [place] [phone] ALP enzyme act/vol 91 U/L Normal 34-123 [facility] Comment on above: Performed By: #### P TT, NTBNP, HSTNT, CBCDIF, PT, CKCKMB, CMP #### [place] [phone] ALT enzyme act/vol 24 U/L Normal 0-45 [facility] Comment on above: Performed By: #### P TT, NTBNP, HSTNT, CBCDIF, PT, CKCKMB, CMP #### [place] [phone] Anion gap molar conc 18 mmol/L Normal 9-18 [facility] Comment on above: Performed By: #### P TT, NTBNP, HSTNT, CBCDIF, PT, CKCKMB, CMP #### [place] [phone] AST enzyme act/vol 26 U/L Normal 7-40 [facility] Comment on above: Performed By: #### P TT, NTBNP, HSTNT, CBCDIF, PT, CKCKMB, CMP #### [place] [id number] Bilirubin mass conc 0.3 mg/dL Normal 0.2-1.3 [facility] Comment on above: Performed By: #### P TT, NTBNP, HSTNT, CBCDIF, PT, CKCKMB, CMP #### [place] [address] Calcium mass conc 8.8 mg/dL Normal 8.5-10.5 [facility] Comment on above: Performed By: #### P TT, NTBNP, HSTNT, CBCDIF, PT, CKCKMB, CMP #### [place] [id number] Chloride molar conc 97 mmol/L Low 98-110 [facility] Comment on above: Performed By: #### P TT, NTBNP, HSTNT, CBCDIF, PT, CKCKMB, CMP #### [place] [address] CO2 molar conc 20 mmol/L Low 23-32 [facility] Comment on above: Performed By: #### P TT, NTBNP, HSTNT, CBCDIF, PT, CKCKMB, CMP #### [place] [phone] Creatinine mass conc 2.29 mg/dL High 0.70-1.40 [facility] Comment on above: Performed By: #### P TT, NTBNP, HSTNT, CBCDIF, PT, CKCKMB, CMP #### [place] [id number] eGFR- Amer. 25 Low >60 [facility] Comment on above: Performed By: #### P TT, NTBNP, HSTNT, CBCDIF, PT, CKCKMB, CMP #### [place] [phone] GFR/1.73 sq M predicted among non-blacks MDRD vol rate/area (S/P/Bld) 21 . Low >60 [facility] Comment on above: Performed By: #### P TT, NTBNP, HSTNT, CBCDIF, PT, CKCKMB, CMP #### [place] [phone] Glucose mass conc 127 mg/dL High 65-100 [facility] Comment on above: Performed By: #### P TT, NTBNP, HSTNT, CBCDIF, PT, CKCKMB, CMP #### [place] [phone] Potassium molar conc 4.1 mmol/L Normal 3.5-5.0 [facility] Comment on above: Performed By: #### P TT, NTBNP, HSTNT, CBCDIF, PT, CKCKMB, CMP #### [place] [phone] Protein mass conc 6.6 g/dL Normal 6.0-8.4 [facility] Comment on above: Performed By: #### P TT, NTBNP, HSTNT, CBCDIF, PT, CKCKMB, CMP #### [place] [phone] Sodium molar conc 135 mmol/L Normal 132-148 [facility] Comment on above: Performed By: #### P TT, NTBNP, HSTNT, CBCDIF, PT, CKCKMB, CMP #### [place] [phone] Urea nitrogen mass conc 76 mg/dL High 8-25 [facility] Comment on above: Performed By: #### P TT, NTBNP, HSTNT, CBCDIF, PT, CKCKMB, CMP #### [place] [phone] ECG COMPLETEon 04-02-2018 ECG COMPLETE NAME : SARINA LOVETT PID : [id number] : 1945 Gender : Female Race : ORD : [id number] Procedure Date : Apr 02 2018 07:40:14 [...] ms QTC Calculation(Bezet) : 556 ms P [place] : 25 degrees R [place] : -62 degrees T [place] : 98 degrees Test Reason : OPEN Location : [facility] : [address] Overread By : ABBY BURT M.D. Edited By : ABBY BURT M.D. Referred By : , Acquired by : BETSEY FRASER [facility] NURSING PROGon 04-02-2018 Protein mass conc HNO ID: [id number] Author: Delma (Rn) ZAK Garsia Service: Critical [...] present. 1700States relief of nausea after meds. [facility] Protein mass conc HNO ID: [id number] Author: Xiomy Hamilton (Rn) ZAK Bermudez Service: (none) Author Type: Registered Nurse Type: Nursing Progress Note Filed: 04/02/2018 8:58 AM Note Text: Nursing Progress Note Patient Name: Sarina Lovett Patient Location: [place] [address] [address]: Report called to Natalie trudi [facility]. This note was completed by: Xiomy Bermudez RN [facility] Protein mass conc HNO ID: [id number] Author: Dorene Payton) ZAK Plata Service: Radiology [...] 02, 2018 TIME: 7:56 AM PAGER/CONTACT #: [phone] [facility] Protein mass conc HNO ID: [id number] Author: Kera CabreraRn) ZAK Childers Service: (none) Author Type: Registered Nurse Type: Nursing Progress Note Filed: 04/01/2018 11:32 PM Note Text: Nursing Progress Note Patient Name: Sarina Lovett Patient Location: [place] [address] [address] Daily Note: [id number] Paged House spoke with [...] note was completed by: Kera Childers RN [facility] PROGRESSon 04-02-2018 Protein mass conc HNO ID: [id number] Author: Eleni Flanagan Service: Nephrology Author Type: [...] Date 04/01/18 07 - 04/02/18 0659 Shift [id number] [id number] 2972-9035 24 Hour Total I N T A [...] Flanagan MD PhD PATIENT NAME: Sarina Lovett [facility] Protein mass conc HNO ID: [id number] Author: Mame Bowers Service: Hospital Medicine Author Type: Physician Type: Progress Notes Filed: 04/02/2018 2:35 PM Note Text: DEPARTMENT OF HOSPITAL MEDICINE PROGRESS NOTE Name: Sarina Lovett SERVICE DATE: 04/02/2018 SERVICE TIME: 10:23 AM Hospital Medicine/Primary Attending: Mame Bowers MD NIGHT AND WEEKEND COVERAGE: Days: [phone], please page me for patient issues. Nights: [phone], please page [facility] Hospitalist Night Coverage pager: [phone]. Dr. Thao to take over care for [...] examined, lying on the bed, transferred from [facility] with elevated troponin, pt stated that [...] DATE: April 02, 2018 TIME: 10:23 AM [facility] Protein mass conc HNO ID: [id number] Author: Laura Chance Service: General Internal Medicine [...] 03/24/182044 vte non-pharmacologic prophylaxis - none indicated ([place]) 03/24/182044 activity - mobilize patient ([place], [place]) VTE Prophylaxis: VTE prophylaxis appropriate SIGNATURE: Laura Chance APRN.CNP PATIENT NAME: Sarina Lovett DATE: April 02, 2018 TIME: 7:29 AM PAGER: D/w Dr. Peters D/w Dr. Jack D/w dr tenorio pt trasferred to [facility] all meds /orders continued except zofran- also could consider d/c zoloft, d/w [facility] nursing- they will discuss with attending Normal [facility] Renal Function Panelon 04-02 Albumin mass conc 3.4 g/dL Low 3.5-5.0 [facility] Comment on above: Performed By: #### P TT, NTBNP, HSTNT, CBCDIF, PT, CKCKMB, CMP #### [place] [id number] [place] [address] Anion gap molar conc 18 mmol/L Normal 9-18 [facility] Comment on above: Performed By: #### P TT, NTBNP, HSTNT, CBCDIF, PT, CKCKMB, CMP #### [address] [address] Calcium mass conc 8.8 mg/dL Normal 8.5-10.5 [facility] Comment on above: Performed By: #### P TT, NTBNP, HSTNT, CBCDIF, PT, CKCKMB, CMP #### [place] [phone] Chloride molar conc 97 mmol/L Low 98-110 [facility] Comment on above: Performed By: #### P TT, NTBNP, HSTNT, CBCDIF, PT, CKCKMB, CMP #### [place] [phone] CO2 molar conc 19 mmol/L Low 23-32 [facility] Comment on above: Performed By: #### P TT, NTBNP, HSTNT, CBCDIF, PT, CKCKMB, CMP #### [place] [address] Creatinine mass conc 2.33 mg/dL High 0.70-1.40 [facility] Comment on above: Result Comment: Revi ewed Performed By: #### P TT, NTBNP, HSTNT, CBCDIF, PT, CKCKMB, CMP #### [place] [phone] eGFR- Amer. 25 Low >60 [facility] Comment on above: Performed By: #### P TT, NTBNP, HSTNT, CBCDIF, PT, CKCKMB, CMP #### [address] GFR/1.73 sq M predicted among non-blacks MDRD vol rate/area (S/P/Bld) 21 . Low >60 [facility] Comment on above: Performed By: #### P TT, NTBNP, HSTNT, CBCDIF, PT, CKCKMB, CMP #### [place] [phone] Glucose mass conc 115 mg/dL High 65-100 [facility] Comment on above: Performed By: #### P TT, NTBNP, HSTNT, CBCDIF, PT, CKCKMB, CMP #### [place] [phone] Phosphate mass conc 5.0 mg/dL High 2.5-4.5 [facility] Comment on above: Performed By: #### P TT, NTBNP, HSTNT, CBCDIF, PT, CKCKMB, CMP #### [place] [phone] Potassium molar conc 4.1 mmol/L Normal 3.5-5.0 [facility] Comment on above: Performed By: #### P TT, NTBNP, HSTNT, CBCDIF, PT, CKCKMB, CMP #### [place] [phone] Sodium molar conc 134 mmol/L Normal 132-148 [facility] Comment on above: Performed By: #### P TT, NTBNP, HSTNT, CBCDIF, PT, CKCKMB, CMP #### [place] [phone] Urea nitrogen mass conc 77 mg/dL High 8-25 [facility] Comment on above: Performed By: #### P TT, NTBNP, HSTNT, CBCDIF, PT, CKCKMB, CMP #### [place] [phone] THERAPY NTon 04-02-2018 THERAPY NT HNO ID: [id number] Author: Raj (Tailings Man) LALO [place]amo Service: Respiratory Therapy Author Type: Registered Resp Therapist Type: Therapy (PT/OT/Speech/Resp) Filed: 04/02/2018 7:49 AM Note Text: ABG drawn from right brachial artery. Site held until bleeding stopped. Normal [facility] Troponin Ton 04-02-2018 Troponin T.cardiac mass conc 9.390 ng/mL High 0.000-0.029 [facility] Comment on above: Result Comment: Urge nt value previously called On 04/02/18 at 0915 T Conn Performed By: #### P TT, NTBNP, HSTNT, CBCDIF, PT, CKCKMB, CMP #### [facility] [address] [place] [address] Troponin T.cardiac mass conc 9.520 ng/mL High 0.000-0.029 [facility] Comment on above: Result Comment: Urge nt value previously called on 04/02/18 0915 ASamra Performed By: #### P TT, NTBNP, HSTNT, CBCDIF, PT, CKCKMB, CMP #### [facility] [address] [place] [phone] Troponin T.cardiac mass conc 10.090 ng/mL High 0.000-0.029 [facility] Comment on above: Result Comment: Call ed to and read back by: Harley Valadez RN [facility] 04/02/2018 0915 [place] Performed By: #### P TT, NTBNP, HSTNT, CBCDIF, PT, CKCKMB, CMP #### [place] [id number] [place] [phone] XR CHEST 1V FRONTALon 2018 XR CHEST [...] EXTENT IN THE LEFT PERIHILAR REGION BONY Chef De Froid: PSCGrace Transcribe Date/Time: Apr 02 2018 7:57A Dictated by : BROOKE SEE MD This examination was interpreted and the report reviewed and electronically signed by: BROOKE SEE MD on Apr 02 2018 7:59AM EST [id number] Normal [facility] Basic Metabolic Panlon 04-01 Anion gap molar conc 18 mmol/L Normal 9-18 [facility] Comment on above: Performed By: #### P TT, NTBNP, HSTNT, CBCDIF, PT, CKCKMB, CMP #### [place] [phone] Calcium mass conc 8.5 mg/dL Normal 8.5-10.5 [facility] Comment on above: Performed By: #### P TT, NTBNP, HSTNT, CBCDIF, PT, CKCKMB, CMP #### [place] [phone] Chloride molar conc 96 mmol/L Low 98-110 [facility] Comment on above: Result Comment: Revi ewed Performed By: #### P TT, NTBNP, HSTNT, CBCDIF, PT, CKCKMB, CMP #### [place] [phone] CO2 molar conc 19 mmol/L Low 23-32 [facility] Comment on above: Performed By: #### P TT, NTBNP, HSTNT, CBCDIF, PT, CKCKMB, CMP #### [place] [phone] Creatinine mass conc 3.28 mg/dL High 0.70-1.40 [facility] Comment on above: Performed By: #### P TT, NTBNP, HSTNT, CBCDIF, PT, CKCKMB, CMP #### [place] [phone] eGFR- Amer. 17 Low >60 [facility] Comment on above: Performed By: #### P TT, NTBNP, HSTNT, CBCDIF, PT, CKCKMB, CMP #### [place] [phone] GFR/1.73 sq M predicted among non-blacks MDRD vol rate/area (S/P/Bld) 14 . Low >60 [facility] Comment on above: Performed By: #### P TT, NTBNP, HSTNT, CBCDIF, PT, CKCKMB, CMP #### [place] [address] Glucose mass conc 91 mg/dL Normal 65-100 [facility] Comment on above: Performed By: #### P TT, NTBNP, HSTNT, CBCDIF, PT, CKCKMB, CMP #### [place] [address] Potassium molar conc 4.5 mmol/L Normal 3.5-5.0 [facility] Comment on above: Result Comment: Revi ewed Performed By: #### P TT, NTBNP, HSTNT, CBCDIF, PT, CKCKMB, CMP #### [place] [address] Sodium molar conc 133 mmol/L Normal 132-148 [facility] Comment on above: Performed By: #### P TT, NTBNP, HSTNT, CBCDIF, PT, CKCKMB, CMP #### [place] [id number] Urea nitrogen mass conc 88 mg/dL High 8-25 [facility] Comment on above: Performed By: #### P TT, NTBNP, HSTNT, CBCDIF, PT, CKCKMB, CMP #### [place] [address] CBC and Differentialon 04-01 Abs Baso <0.03 Normal <0.11 [facility] Comment on above: Performed By: #### P TT, NTBNP, HSTNT, CBCDIF, PT, CKCKMB, CMP #### [place] [phone] Abs [place] 0.47 k/uL Normal <0.87 [facility] Comment on above: Performed By: #### P TT, NTBNP, HSTNT, CBCDIF, PT, CKCKMB, CMP #### [place] [address] Abs Neut 5.68 k/uL Normal 1.45-7.50 [facility] Comment on above: Performed By: #### P TT, NTBNP, HSTNT, CBCDIF, PT, CKCKMB, CMP #### [place] [phone] Basophils/100 WBC (Bld) 0.2 % Normal [facility] Comment on above: Performed By: #### P TT, NTBNP, HSTNT, CBCDIF, PT, CKCKMB, CMP #### [place] [address] DTYPE Auto Diff Normal [facility] Comment on above: Performed By: #### P TT, NTBNP, HSTNT, CBCDIF, PT, CKCKMB, CMP #### [place] [address] Eosinophils #/vol (Bld) 0.05 10*3/uL Normal <0.46 [facility] Comment on above: Performed By: #### P TT, NTBNP, HSTNT, CBCDIF, PT, CKCKMB, CMP #### [place] [phone] Eosinophils/100 WBC (Bld) 0.8 % Normal [facility] Comment on above: Performed By: #### P TT, NTBNP, HSTNT, CBCDIF, PT, CKCKMB, CMP #### [place] [phone] Erythrocyte distribution width Ratio (RBC) 13.9 % Normal 11.5-15.0 [facility] Comment on above: Performed By: #### P TT, NTBNP, HSTNT, CBCDIF, PT, CKCKMB, CMP #### [place] [phone] Hematocrit Volume Fraction (Bld) 22.2 % Low 36.0-46.0 [facility] Comment on above: Performed By: #### P TT, NTBNP, HSTNT, CBCDIF, PT, CKCKMB, CMP #### [place] [address] Hemoglobin mass conc (Bld) 7.5 g/dL Low 11.5-15.5 [facility] Comment on above: Performed By: #### P TT, NTBNP, HSTNT, CBCDIF, PT, CKCKMB, CMP #### [place] [address] Lymphocytes #/vol (Bld) 0.32 10*3/uL Low 1.00-4.00 [facility] Comment on above: Performed By: #### P TT, NTBNP, HSTNT, CBCDIF, PT, CKCKMB, CMP #### [place] [address] Lymphocytes/100 WBC (Bld) 4.9 % Normal [facility] Comment on above: Performed By: #### P TT, NTBNP, HSTNT, CBCDIF, PT, CKCKMB, CMP #### [place] [address] MCH Entitic mass (RBC) 28.8 pG Normal 26.0-34.0 [facility] Comment on above: Performed By: #### P TT, NTBNP, HSTNT, CBCDIF, PT, CKCKMB, CMP #### [place] [address] MCHC mass conc (RBC) 33.8 g/dL Normal 30.5-36.0 [facility] Comment on above: Performed By: #### P TT, NTBNP, HSTNT, CBCDIF, PT, CKCKMB, CMP #### [place] [address] MCV Entitic volume (RBC) 85.4 fL Normal 80.0-100.0 [facility] Comment on above: Performed By: #### P TT, NTBNP, HSTNT, CBCDIF, PT, CKCKMB, CMP #### [place] [phone] Monocytes/100 WBC (Bld) 7.2 % Normal [facility] Comment on above: Performed By: #### P TT, NTBNP, HSTNT, CBCDIF, PT, CKCKMB, CMP #### [place] [phone] Neutrophils/100 WBC (Bld) 86.9 % Normal [facility] Comment on above: Performed By: #### P TT, NTBNP, HSTNT, CBCDIF, PT, CKCKMB, CMP #### [place] [phone] Platelet mean volume Entitic volume (Bld) 11.5 fL Normal 9.0-12.7 [facility] Comment on above: Performed By: #### P TT, NTBNP, HSTNT, CBCDIF, PT, CKCKMB, CMP #### [place] [phone] Platelets #/vol (Bld) 151 10*3/uL Normal 150-400 [facility] Comment on above: Performed By: #### P TT, NTBNP, HSTNT, CBCDIF, PT, CKCKMB, CMP #### [place] [phone] RBC #/vol (Bld) 2.60 10*6/uL Low 3.90-5.20 [facility] Comment on above: Performed By: #### P TT, NTBNP, HSTNT, CBCDIF, PT, CKCKMB, CMP #### [place] [phone] WBC #/vol (Bld) 6.53 10*3/uL Normal 3.70-11.00 [facility] Comment on above: Performed By: #### P TT, NTBNP, HSTNT, CBCDIF, PT, CKCKMB, CMP #### [address] [place] [address] NURSING PROGon 04-01-2018 Protein mass conc HNO ID: [id number] Author: Niharika (Rn) ZAK Bell Service: (none) Author Type: Registered Nurse Type: Nursing Progress Note Filed: 04/01/2018 6:18 PM Note Text: Nursing Progress Note Patient Name: Sarina Lovett Patient Location: [place] [address] [address] Daily Note:1530 (late entry) resumed care of patient. Pt resting in bed without s/s of distress. Pt denies pain. No needs at this time. Call light within reach, will continue to monitor. This note was completed by: Niharika Bell RN Normal [facility] PROGRESSon 04-01-2018 Protein mass conc HNO ID: [id number] Author: Eleni Flanagan Service: Nephrology Author Type: [...] Date 04/01/18 0700 - 04/02/18 0659 Shift [id number] 2113-4819 0108-8456 24 Hour Total I N T A [...] Flanagan MD PhD PATIENT NAME: Sarina Lovett [facility] Protein mass conc HNO ID: [id number] Author: Laura Chance Service: General Internal Medicine [...] 03/24/182044 vte non-pharmacologic prophylaxis - none indicated ([place]) 03/24/182044 activity - mobilize patient ([place] VTE Prophylaxis: VTE prophylaxis appropriate SIGNATURE: Laura Chance APRN.VEHICLE SERVICE AGENT PATIENT NAME: Sarina Lovett DATE: April 01, 2018 TIME: 8:05 AM PAGER: D/w dr peters And with pt permission d/w Paul rivera Care time > 35 minute, significant time spent d/w patient/family current plan of care Normal [facility] Phosphoruson 04-01-2018 Phosphate mass conc 5.9 mg/dL High 2.5-4.5 [facility] Comment on above: Performed By: #### P TT, NTBNP, HSTNT, CBCDIF, PT, CKCKMB, CMP #### [place] [id number] [place], [place] [id number] Arterial Blood Gas (FOR WEST USE ONLY)on 03-31-2018 Base Excess Negative Normal [facility] Comment on above: Result Comment: -3 t o 3 Performed By: #### P TT, NTBNP, HSTNT, CBCDIF, PT, CKCKMB, CMP #### [address] [address] CO2 molar conc 18 mmol/L Low 22.0-28.0 [facility] Comment on above: Performed By: #### P TT, NTBNP, HSTNT, CBCDIF, PT, CKCKMB, CMP #### [place] [id number] Device Nasal Cannula Normal [facility] Comment on above: Performed By: #### P TT, NTBNP, HSTNT, CBCDIF, PT, CKCKMB, CMP #### [place] [address] Drawsite Right Brachial Normal [facility] Comment on above: Performed By: #### P TT, NTBNP, HSTNT, CBCDIF, PT, CKCKMB, CMP #### [place] [id number] HCO3 molar conc (Bld) 17 mmol/L Low 22-26 [facility] Comment on above: Performed By: #### P TT, NTBNP, HSTNT, CBCDIF, PT, CKCKMB, CMP #### [place] [address] O2 Administered 28.0 Normal [facility] Comment on above: Performed By: #### P TT, NTBNP, HSTNT, CBCDIF, PT, CKCKMB, CMP #### [place] [id number] Oxygen ppres (Bld) 94 % Normal 90-98 [facility] Comment on above: Performed By: #### P TT, NTBNP, HSTNT, CBCDIF, PT, CKCKMB, CMP #### [place] [id number] Oxygen ppres (Bld) 76 mm Hg Low 80-100 [facility] Comment on above: Performed By: #### P TT, NTBNP, HSTNT, CBCDIF, PT, CKCKMB, CMP #### [address] [address] pCO2 32 mm Hg Low 35-48 [facility] Comment on above: Performed By: #### P TT, NTBNP, HSTNT, CBCDIF, PT, CKCKMB, CMP #### [place] [phone] pH (Bld) 7.35 [pH] Normal 7.35-7.45 [facility] Comment on above: Performed By: #### P TT, NTBNP, HSTNT, CBCDIF, PT, CKCKMB, CMP #### [place] [phone] CASE MANAGEMon 03-31-2018 CASE MANAGEM HNO ID: [id number] Author: Bro Wood (Sw) Service: Care Management Author Type: Building Associate Type: Care Mgt Progress Note Filed: 03/31/2018 1:35 PM Note Text: CARE MANAGEMENT PROGRESS NOTE SERVICE DATE: 03/31/2018 SERVICE TIME: 10:40 AM LOS: 7 days FREEDOM OF CHOICE GIVEN: Yes patient Financial Disclosure Provided Provider List: Home Care Preference: [facility] Needs Prior to Discharge: To Be Determined Waiting on acceptance for HHC, patient will need home care order. Desat study needed to determine if patient will need O2. Addendum- [facility] patient for [facility]. SIGNATURE: KARRIE FORTE PATIENT NAME: Sarina Lovett DATE: March 31, 2018 TIME: 10:39 AM PAGER/CONTACT #: [phone] Normal [facility] CBC and Differentialon 03-31 Abs Baso <0.03 Normal <0.11 [facility] Comment on above: Performed By: #### P TT, NTBNP, HSTNT, CBCDIF, PT, CKCKMB, CMP #### [place] [phone] Abs [place]age 0.49 k/uL Normal <0.87 [facility] Comment on above: Performed By: #### P TT, NTBNP, HSTNT, CBCDIF, PT, CKCKMB, CMP #### [place] [address] Abs Neut 7.17 k/uL Normal 1.45-7.50 [facility] Comment on above: Performed By: #### P TT, NTBNP, HSTNT, CBCDIF, PT, CKCKMB, CMP #### [place] [id number] Basophils/100 WBC (Bld) 0.1 % Normal [facility] Comment on above: Performed By: #### P TT, NTBNP, HSTNT, CBCDIF, PT, CKCKMB, CMP #### [place] [address] DTYPE Auto Diff Normal [facility] Comment on above: Performed By: #### P TT, NTBNP, HSTNT, CBCDIF, PT, CKCKMB, CMP #### [place] [address] Eosinophils #/vol (Bld) 0.05 10*3/uL Normal <0.46 [facility] Comment on above: Performed By: #### P TT, NTBNP, HSTNT, CBCDIF, PT, CKCKMB, CMP #### [place] [id number] Eosinophils/100 WBC (Bld) 0.6 % Normal [facility] Comment on above: Performed By: #### P TT, NTBNP, HSTNT, CBCDIF, PT, CKCKMB, CMP #### [place] [address] Erythrocyte distribution width Ratio (RBC) 13.9 % Normal 11.5-15.0 [facility] Comment on above: Performed By: #### P TT, NTBNP, HSTNT, CBCDIF, PT, CKCKMB, CMP #### [place] [id number] Hematocrit Volume Fraction (Bld) 23.5 % Low 36.0-46.0 [facility] Comment on above: Performed By: #### P TT, NTBNP, HSTNT, CBCDIF, PT, CKCKMB, CMP #### [place] [address] Hemoglobin mass conc (Bld) 7.8 g/dL Low 11.5-15.5 [facility] Comment on above: Performed By: #### P TT, NTBNP, HSTNT, CBCDIF, PT, CKCKMB, CMP #### [place] [address] Lymphocytes #/vol (Bld) 0.44 10*3/uL Low 1.00-4.00 [facility] Comment on above: Performed By: #### P TT, NTBNP, HSTNT, CBCDIF, PT, CKCKMB, CMP #### [place] [address] Lymphocytes/100 WBC (Bld) 5.4 % Normal [facility] Comment on above: Performed By: #### P TT, NTBNP, HSTNT, CBCDIF, PT, CKCKMB, CMP #### [place] [address] MCH Entitic mass (RBC) 28.5 pG Normal 26.0-34.0 [facility] Comment on above: Performed By: #### P TT, NTBNP, HSTNT, CBCDIF, PT, CKCKMB, CMP #### [place] [address] MCHC mass conc (RBC) 33.2 g/dL Normal 30.5-36.0 [facility] Comment on above: Performed By: #### P TT, NTBNP, HSTNT, CBCDIF, PT, CKCKMB, CMP #### [place] [address] MCV Entitic volume (RBC) 85.8 fL Normal 80.0-100.0 [facility] Comment on above: Performed By: #### P TT, NTBNP, HSTNT, CBCDIF, PT, CKCKMB, CMP #### [place] [phone] Monocytes/100 WBC (Bld) 6.0 % Normal [facility] Comment on above: Performed By: #### P TT, NTBNP, HSTNT, CBCDIF, PT, CKCKMB, CMP #### [place] [phone] Neutrophils/100 WBC (Bld) 87.9 % Normal [facility] Comment on above: Performed By: #### P TT, NTBNP, HSTNT, CBCDIF, PT, CKCKMB, CMP #### [place] [phone] Platelet mean volume Entitic volume (Bld) 11.6 fL Normal 9.0-12.7 [facility] Comment on above: Performed By: #### P TT, NTBNP, HSTNT, CBCDIF, PT, CKCKMB, CMP #### [place] [phone] Platelets #/vol (Bld) 152 10*3/uL Normal 150-400 [facility] Comment on above: Performed By: #### P TT, NTBNP, HSTNT, CBCDIF, PT, CKCKMB, CMP #### [phone] RBC #/vol (Bld) 2.74 10*6/uL Low 3.90-5.20 [facility] Comment on above: Performed By: #### P TT, NTBNP, HSTNT, CBCDIF, PT, CKCKMB, CMP #### [phone] WBC #/vol (Bld) 8.16 10*3/uL Normal 3.70-11.00 [facility] Comment on above: Performed By: #### P TT, NTBNP, HSTNT, CBCDIF, PT, CKCKMB, CMP #### [facility] [address] [place] [address] CONSULT PROGon 03-31-2018 Protein mass conc HNO ID: [id number] Author: Deanna Yoo Service: Cardiovascular Medicine Author [...] 75 mg ORAL DAILY 03/24/182035 -- @RADHA ARGUETA([id number])@ VTE Prophylaxis: VTE prophylaxis appropriate SIGNATURE: Deanna Yoo APRN.CNP PATIENT NAME: Sarina Lovett DATE: March 31, 2018 TIME: 4:19 PM PAGER/CONTACT #: [facility] Protein mass conc HNO ID: [id number] Author: Kamille Lopez Service: Gastroenterology Author Type: [...] follow clinical progress ? Kamille Lopez CNP [facility] Thank you for allowing us to participate in the care of this patient. Please call with questions or concerns. SIGNATURE: Kamille Lopez APRN.BHARAT PATIENT NAME: Sarina Lovett DATE: March 31, 2018 TIME: 11:03 AM PAGER: [phone] [facility] Protein mass conc HNO ID: [id number] Author: Marito Real Service: Nephrology Author Type: [...] March 31, 2018 TIME: 10:57 AM PAGER: [phone] Addendum Pt seen and examined. Agree with Dr De Los Santos's note. Her renal function continues to worsen. Will need to consider dialysis by Tuesday if her renal function continues to worsen. Continue conservative therapy for contrast nephropathy Use Lasix as needed if she is symptomatically SOB Hyperphosphatemia - add Phoslo 1334mg tidac Met Acidosis - cont NaHCO3 1300mg tid Dr Real [facility] Comp Metabolic Panelon 03-31 Albumin mass conc 3.2 g/dL Low 3.5-5.0 [facility] Comment on above: Performed By: #### P TT, NTBNP, HSTNT, CBCDIF, PT, CKCKMB, CMP #### [place] [phone] ALP enzyme act/vol 80 U/L Normal 34-123 [facility] Comment on above: Performed By: #### P TT, NTBNP, HSTNT, CBCDIF, PT, CKCKMB, CMP #### [place] [phone] ALT enzyme act/vol 20 U/L Normal 0-45 [facility] Comment on above: Performed By: #### P TT, NTBNP, HSTNT, CBCDIF, PT, CKCKMB, CMP #### [place] [phone] Anion gap molar conc 26 mmol/L High 9-18 [facility] Comment on above: Performed By: #### P TT, NTBNP, HSTNT, CBCDIF, PT, CKCKMB, CMP #### [address] AST enzyme act/vol 29 U/L Normal 7-40 [facility] Comment on above: Performed By: #### P TT, NTBNP, HSTNT, CBCDIF, PT, CKCKMB, CMP #### [place] [phone] Bilirubin mass conc 0.2 mg/dL Normal 0.2-1.3 [facility] Comment on above: Performed By: #### P TT, NTBNP, HSTNT, CBCDIF, PT, CKCKMB, CMP #### [place] [phone] Calcium mass conc 7.8 mg/dL Low 8.5-10.5 [facility] Comment on above: Performed By: #### P TT, NTBNP, HSTNT, CBCDIF, PT, CKCKMB, CMP #### [place] [phone] Chloride molar conc 88 mmol/L Low 98-110 [facility] Comment on above: Performed By: #### P TT, NTBNP, HSTNT, CBCDIF, PT, CKCKMB, CMP #### [place] [phone] CO2 molar conc 14 mmol/L Low 23-32 [facility] Comment on above: Performed By: #### P TT, NTBNP, HSTNT, CBCDIF, PT, CKCKMB, CMP #### [address] Creatinine mass conc 3.60 mg/dL High 0.70-1.40 [facility] Comment on above: Performed By: #### P TT, NTBNP, HSTNT, CBCDIF, PT, CKCKMB, CMP #### [place] [phone] eGFR- Amer. 15 Low >60 [facility] Comment on above: Performed By: #### P TT, NTBNP, HSTNT, CBCDIF, PT, CKCKMB, CMP #### [place] [phone] GFR/1.73 sq M predicted among non-blacks MDRD vol rate/area (S/P/Bld) 12 . Low >60 [facility] Comment on above: Performed By: #### P TT, NTBNP, HSTNT, CBCDIF, PT, CKCKMB, CMP #### [place] [phone] Glucose mass conc 132 mg/dL High 65-100 [facility] Comment on above: Performed By: #### P TT, NTBNP, HSTNT, CBCDIF, PT, CKCKMB, CMP #### [phone] Potassium molar conc 3.2 mmol/L Low 3.5-5.0 [facility] Comment on above: Performed By: #### P TT, NTBNP, HSTNT, CBCDIF, PT, CKCKMB, CMP #### [place] [phone] Protein mass conc 6.3 g/dL Normal 6.0-8.4 [facility] Comment on above: Performed By: #### P TT, NTBNP, HSTNT, CBCDIF, PT, CKCKMB, CMP #### [place] [phone] Sodium molar conc 128 mmol/L Low 132-148 [facility] Comment on above: Performed By: #### P TT, NTBNP, HSTNT, CBCDIF, PT, CKCKMB, CMP #### [place] [phone] Urea nitrogen mass conc 85 mg/dL High 8-25 [facility] Comment on above: Performed By: #### P TT, NTBNP, HSTNT, CBCDIF, PT, CKCKMB, CMP #### [place] [phone] Lactateon 03-31-2018 Lactate molar conc 0.6 mmol/L Normal 0.4-2.0 [facility] Comment on above: Performed By: #### P TT, NTBNP, HSTNT, CBCDIF, PT, CKCKMB, CMP #### [place] [phone] Magnesiumon 03-31-2018 Magnesium mass conc 2.1 mg/dL Normal 1.7-2.6 [facility] Comment on above: Performed By: #### P TT, NTBNP, HSTNT, CBCDIF, PT, CKCKMB, CMP #### [place] [phone] NURSING PROGon 03-31-2018 Protein mass conc HNO ID: [id number] Author: Neris English RN Service: Abstract Author Type: Registered Nurse Type: Nursing Progress Note Filed: 03/31/2018 5:58 PM Note Text: Nursing Progress Note Patient Name: Sarina Lovett Patient Location: [address]/[id number]-27 Daily Note: 1757: Family member states patient [...] to give Plavix and heparin? [place] [id number] 0848: Dr. Peters returned page, aware of labs. 0830: Dr. Real aware of abnormal labs. No orders received. Will continue to monitor. 0826:Page sent to Dr. Peters for abnormal labs. This note was completed by: Neris English RN [facility] NUTRITIONon 03-31-2018 NUTRITION HNO ID: [id number] Author: Ophelia Mackenzie Service: Nutrition Therapy Author Type: Special Events Manager Type: Nutrition Filed: 03/31/2018 12:24 PM Note [...] March 31, 2018 TIME: 12:09 PM PAGER: [phone] [facility] PROGRESSon 03-31-2018 Protein mass conc HNO ID: [id number] Author: Andree Peters Service: General Internal Medicine [...] 03/24/182044 vte non-pharmacologic prophylaxis - none indicated (la,dc) 03/24/182044 activity - mobilize patient (la,dc) VTE Prophylaxis: VTE prophylaxis appropriate SIGNATURE: Andree Peters MD PATIENT NAME: Sarina Lovett DATE: March 31, 2018 TIME: 9:13 AM PAGER: [facility] Phosphoruson 03-31-2018 Phosphate mass conc 6.2 mg/dL High 2.5-4.5 [facility] Comment on above: Performed By: #### P TT, NTBNP, HSTNT, CBCDIF, PT, CKCKMB, CMP #### [facility] [place] [address] THERAPY NTon 03-31-2018 THERAPY NT HNO ID: [id number] Author: Yanelis ([place]) LALO Jean Baptiste Service: (none) Author Type: Registered Resp Therapist Type: Therapy (PT/OT/Speech/Resp) Filed: 03/31/2018 2:48 PM Note Text: ABG drawn from Right Brachial including Lactate no ; Laci test no; pressure held, bleeding stopped. [facility] ALLIED HEALTHon 03-30-2018 ALLIED HEALTH HNO ID: [id number] Author: CAROLINA Guthrie (Ct) Service: Radiology Author Type: Radiology Scheduler Type: Allied Health Filed: 03/30/2018 7:21 PM [...] CAROLINA Guthrie March 30, 2018 7:20 PM [facility] Basic Metabolic Panlon 03-30 Anion gap molar conc 23 mmol/L High 9-18 [facility] Comment on above: Performed By: #### P TT, NTBNP, HSTNT, CBCDIF, PT, CKCKMB, CMP #### [facility] [place] [address] Calcium mass conc 8.0 mg/dL Low 8.5-10.5 [facility] Comment on above: Performed By: #### P TT, NTBNP, HSTNT, CBCDIF, PT, CKCKMB, CMP #### [place] [phone] Chloride molar conc 93 mmol/L Low 98-110 [facility] Comment on above: Performed By: #### P TT, NTBNP, HSTNT, CBCDIF, PT, CKCKMB, CMP #### [place] [phone] CO2 molar conc 16 mmol/L Low 23-32 [facility] Comment on above: Performed By: #### P TT, NTBNP, HSTNT, CBCDIF, PT, CKCKMB, CMP #### [place] [phone] Creatinine mass conc 3.15 mg/dL High 0.70-1.40 [facility] Comment on above: Performed By: #### P TT, NTBNP, HSTNT, CBCDIF, PT, CKCKMB, CMP #### [place] [phone] eGFR- Amer. 18 Low >60 [facility] Comment on above: Performed By: #### P TT, NTBNP, HSTNT, CBCDIF, PT, CKCKMB, CMP #### [phone] GFR/1.73 sq M predicted among non-blacks MDRD vol rate/area (S/P/Bld) 15 . Low >60 [facility] Comment on above: Performed By: #### P TT, NTBNP, HSTNT, CBCDIF, PT, CKCKMB, CMP #### [place] [phone] Glucose mass conc 120 mg/dL High 65-100 [facility] Comment on above: Performed By: #### P TT, NTBNP, HSTNT, CBCDIF, PT, CKCKMB, CMP #### [place] [phone] Potassium molar conc 3.9 mmol/L Normal 3.5-5.0 [facility] Comment on above: Performed By: #### P TT, NTBNP, HSTNT, CBCDIF, PT, CKCKMB, CMP #### [place] [phone] Sodium molar conc 132 mmol/L Normal 132-148 [facility] Comment on above: Performed By: #### P TT, NTBNP, HSTNT, CBCDIF, PT, CKCKMB, CMP #### [place] [phone] Urea nitrogen mass conc 74 mg/dL High 8-25 [facility] Comment on above: Performed By: #### P TT, NTBNP, HSTNT, CBCDIF, PT, CKCKMB, CMP #### [place] [phone] CASE MANAGEMon 03-30-2018 CASE MANAGEM HNO ID: [id number] Author: Bro Wood (Sw) Service: Care Management Author Type: Building Associate Type: Care Mgt Progress Note Filed: 03/30/2018 2:19 PM Note Text: CARE MANAGEMENT PROGRESS NOTE SERVICE DATE: 03/30/2018 SERVICE TIME: 2:18 PM LOS: 6 days FREEDOM OF CHOICE GIVEN: Yes patient Financial Disclosure Provided Provider List: Home Care Waiting on [facility] choices. SIGNATURE: KARRIE FORTE PATIENT NAME: Sarina Lov[place] DATE: March 30, 2018 TIME: 2:18 PM PAGER/CONTACT #: [phone] [facility] CASE MANAGEM HNO ID: [id number] Author: Bro Wood (Sw) Service: Care Management Author Type: Building Associate Type: Care Mgt Progress Note Filed: 03/30/2018 9:28 AM Note Text: CARE MANAGEMENT PROGRESS NOTE SERVICE DATE: 03/30/2018 SERVICE TIME: 9:25 AM LOS: 6 days Patient transferred to [facility]. PT has NSTEMI. Elevated creatinine. SW will follow for discharge needs. SIGNATURE: KARRIE FORTE PATIENT NAME: Sarina Lovett DATE: March 30, 2018 TIME: 9:25 AM PAGER/CONTACT #: [phone] Normal [facility] CKon 03-30-2018 CK enzyme act/vol 242 U/L High 30-220 [facility] Comment on above: Performed By: #### P TT, NTBNP, HSTNT, CBCDIF, PT, CKCKMB, CMP #### [facility] [address] [place] [address] CONSULTon 03-30-2018 CONSULT HNO ID: [id number] Author: Cindy Veliz (Pa) Service: Gastroenterology Author Type: Physician Subsurface Augmentee Operator Type: Consults Filed: 03/30/2018 7:48 PM Note [...] pain, diarrhea, concern for diverticulitis. PMHx of CAD/RI s/p RCA stent, AVR in 2005, CKD, [...] nausea. Denies fever and vomiting. Recrods from health system show CT scan 02/22/17 consistent with sigmoid [...] Coronary atherosclerosis of unspecified type of vessel, salamatof or graft Coronary Atherosclerosis - Diabetes (HCC) [...] March 30, 2018 TIME: 10:27 AM PAGER: [phone] [facility] CONSULT PROGon 03-30-2018 Protein mass conc HNO ID: [id number] Author: Marito Real Service: Nephrology Author Type: [...] Stop Hydralazine as well Dr Real Normal [facility] CT ABD/PEL WO IVCONon 2018 [...] with overlying atelectasis, right greater than left. Chef De Froid: PSCB Transcribe Date/Time: Mar 30 2018 10:04P Dictated by : KUSH BARAJAS MD This examination was interpreted and the report reviewed and electronically signed by: KUSH BARAJAS MD on Mar 30 2018 10:23PM EST [id number] Normal [facility] Magnesiumon 03-30-2018 Magnesium mass conc 2.3 mg/dL Normal 1.7-2.6 [facility] Comment on above: Result Comment: Revi ewed Performed By: #### P TT, NTBNP, HSTNT, CBCDIF, PT, CKCKMB, CMP #### [facility] [address] [place] [address] NURSING PROGon 03-30-2018 Protein mass conc HNO ID: [id number] Author: Shiv CabreraRn) ZAK Majano Service: (none) Author Type: Registered Nurse Type: Nursing Progress Note Filed: 03/30/2018 6:55 AM Note Text: Nursing Progress Note Patient Name: Sarina Lovett Patient Location: [place] [address] Daily Note:patient arrives from [facility] by wheelchair, NPR complete, tele maintained, belongings with patient, oriented patient to room. This note was completed by: Shiv Majano RN [facility] PROGRESSon 03-30-2018 Protein mass conc HNO ID: [id number] Author: Mesha Ferraro Service: General Internal Medicine [...] Time spent >30 minutes. SIGNATURE: Mesha Ferraro APRN.VEHICLE SERVICE AGENT PATIENT NAME: Sarina Lovett DATE: 03/30/18 TIME: 9:35 AM PAGER/CONTACT #: [phone] [facility] THERAPY NTon 03-30-2018 THERAPY NT HNO ID: [id number] Author: Kindra Mei/Shima Harper Service: Occupational Therapy Author Type: Occupational Therapist Type: Therapy (PT/OT/Speech/Resp) Filed: 03/30/2018 2:40 PM Note Text: Occupational Therapy Evaluation SERVICE DATE: 03/30/2018 SERVICE TIME: 1315 to 1340 ROOM: [place] [address] Recommended Discharge Disposition: Home OT Anticipated Discharge Needs: Physical Assist at Home Physical Assist at Home for: Cleaning;Laundry;Meal s;Stairs;Self Care;Shopping;Transpo rtation Recommended Discharge Equipment: Grab Bars-Shower;Grab Bars-Toilet;Hand Held Shower;Long Handled Sponge;Wheeled Walker;Assistant Manager Retail;Shower Chair OT Recommendations to Nursing: To Bathroom [...] of daily living (ADL) Interventions Provided: Evaluation;Self Retirement Management (51938) $ Evaluation-Low (32226) Billed Units: 1 unit Self Retirement Management (40575) Treatment Minutes: 10 1 unit Skilled Intervention(s): [...] respiratory failure Relevant Past Medical History: acute RI, CAD, CABG, CKD, HTN, diverticulitis, psych d/o, [...] DATE: March 30, 2018 TIME: 2:38 PM [facility] THERAPY NT HNO ID: [id number] Author: Ade (Pt) Claus Service: Physical Therapy Author Type: Physical Therapist Type: Therapy (PT/OT/Speech/Resp) Filed: 03/30/2018 12:42 PM Note Text: Physical Therapy Evaluation SERVICE DATE: 03/30/2018 SERVICE TIME: 1140 to 1205 ROOM: [place] [address] Recommended Discharge Disposition: Home PT Anticipated Discharge [...] mobility-other;Muscle Weakness (generalized) Interventions Provided: Evaluation;Gait Training (17715) $ Evaluation-Low (64170) Billed Units: 1 unit Gait Training (04333) Treatment Minutes: 10 1 unit Skilled Intervention(s): [...] March 30, 2018 TIME: 12:39 PM Normal [facility] US ABD SPLEENon 03-30-2018 US [...] contrast-enhanced CT or MRI is again recommended. Chef De Froid: PSCB Transcribe Date/Time: Mar 30 2018 12:21P Dictated by : PHILLIP MONTALVO MD This examination was interpreted and the report reviewed and electronically signed by: PHILLIP MONTALVO MD on Mar 30 2018 12:27PM EST [id number] Normal [facility] Basic Metabolic Panlon 03-29 Anion gap molar conc 23 mmol/L High 9-18 [facility] Comment on above: Performed By: #### B MP, MG1, CBCDIF ####[facility] [place], [place] [address] Calcium mass conc 8.0 mg/dL Low 8.5-10.5 [facility] Comment on above: Performed By: #### B MP, MG1, CBCDIF ####[place] [address] Chloride molar conc 94 mmol/L Low 98-110 [facility] Comment on above: Performed By: #### B MP, MG1, CBCDIF ####[address] CO2 molar conc 16 mmol/L Low 23-32 [facility] Comment on above: Performed By: #### B MP, MG1, CBCDIF ####[place] [address] Creatinine mass conc 2.63 mg/dL High 0.70-1.40 [facility] Comment on above: Performed By: #### B MP, MG1, CBCDIF ####[address] eGFR- Amer. 22 Low >60 [facility] Comment on above: Performed By: #### B MP, MG1, CBCDIF ####[place] [address] GFR/1.73 sq M predicted among non-blacks MDRD vol rate/area (S/P/Bld) 18 . Low >60 [facility] Comment on above: Performed By: #### B MP, MG1, CBCDIF ####[place] [phone] Glucose mass conc 122 mg/dL High 65-100 [facility] Comment on above: Performed By: #### B MP, MG1, CBCDIF ####[place] [address] Potassium molar conc 3.4 mmol/L Low 3.5-5.0 [facility] Comment on above: Performed By: #### B MP, MG1, CBCDIF ####[place] [address] Sodium molar conc 133 mmol/L Normal 132-148 [facility] Comment on above: Performed By: #### B MP, MG1, CBCDIF ####[place] [address] Urea nitrogen mass conc 59 mg/dL High 8-25 [facility] Comment on above: Performed By: #### B MP, MG1, CBCDIF ####[place] [address] C difficile PCRon 03-29-2018 C difficile PCR Negative Normal [facility] Comment on above: Performed By: #### P TT, NTBNP, HSTNT, CBCDIF, PT, CKCKMB, CMP #### [place] [phone] CBC and Differentialon 03-29 Abs Baso <0.03 Normal <0.11 [facility] Comment on above: Performed By: #### B MP, MG1, CBCDIF ####[place] [address] Abs [place] 0.81 k/uL Normal <0.87 [facility] Comment on above: Performed By: #### B MP, MG1, CBCDIF ####[place] [id number] Abs Neut 10.08 k/uL High 1.45-7.50 [facility] Comment on above: Performed By: #### B MP, MG1, CBCDIF ####[place] [id number] Basophils/100 WBC (Bld) 0.0 % Normal [facility] Comment on above: Performed By: #### B MP, MG1, CBCDIF ####[place] [id number] DTYPE Auto Diff Normal [facility] Comment on above: Performed By: #### B MP, MG1, CBCDIF ####[place] [address] Eosinophils #/vol (Bld) 10*3/uL Normal <0.46 [facility] Comment on above: Performed By: #### B MP, MG1, CBCDIF ####[place] [address] Eosinophils/100 WBC (Bld) 0.0 % Normal [facility] Comment on above: Performed By: #### B MP, MG1, CBCDIF ####[place] [address] Erythrocyte distribution width Ratio (RBC) 13.8 % Normal 11.5-15.0 [facility] Comment on above: Performed By: #### B MP, MG1, CBCDIF ####[place] [address] Hematocrit Volume Fraction (Bld) 25.3 % Low 36.0-46.0 [facility] Comment on above: Performed By: #### B MP, MG1, CBCDIF ####[place] [address] Hemoglobin mass conc (Bld) 8.3 g/dL Low 11.5-15.5 [facility] Comment on above: Performed By: #### B MP, MG1, CBCDIF ####[place] [address] Lymphocytes #/vol (Bld) 0.31 10*3/uL Low 1.00-4.00 [facility] Comment on above: Performed By: #### B MP, MG1, CBCDIF ####[place] [address] Lymphocytes/100 WBC (Bld) 2.8 % Normal [facility] Comment on above: Performed By: #### B MP, MG1, CBCDIF ####[place] [phone] MCH Entitic mass (RBC) 28.5 pG Normal 26.0-34.0 [facility] Comment on above: Performed By: #### B MP, MG1, CBCDIF ####[place] [phone] MCHC mass conc (RBC) 32.8 g/dL Normal 30.5-36.0 [facility] Comment on above: Performed By: #### B MP, MG1, CBCDIF ####[place] [phone] MCV Entitic volume (RBC) 86.9 fL Normal 80.0-100.0 [facility] Comment on above: Performed By: #### B MP, MG1, CBCDIF ####[place] [phone] Monocytes/100 WBC (Bld) 7.2 % Normal [facility] Comment on above: Performed By: #### B MP, MG1, CBCDIF ####[place] [phone] Neutrophils/100 WBC (Bld) 90.0 % Normal [facility] Comment on above: Performed By: #### B MP, MG1, CBCDIF ####[place] [phone] Platelet mean volume Entitic volume (Bld) 11.2 fL Normal 9.0-12.7 [facility] Comment on above: Performed By: #### B MP, MG1, CBCDIF ####[place] [phone] Platelets #/vol (Bld) 132 10*3/uL Low 150-400 [facility] Comment on above: Performed By: #### B MP, MG1, CBCDIF ####[place] [phone] RBC #/vol (Bld) 2.91 10*6/uL Low 3.90-5.20 [facility] Comment on above: Performed By: #### B MP, MG1, CBCDIF ####[place] [id number] [place], [place] [phone] WBC #/vol (Bld) 11.20 10*3/uL High 3.70-11.00 [facility] Comment on above: Performed By: #### B MP, MG1, CBCDIF ####[facility] [place], [place] [phone] CKon 03-29-2018 CK enzyme act/vol 432 U/L High 30-220 [facility] Comment on above: Performed By: #### C K ####[facility] [place], [place] [phone] CONSULT PROGon 03-29-2018 Protein mass conc HNO ID: [id number] Author: Juanito Carlisle Service: Cardiovascular Medicine Author [...] 75 mg ORAL DAILY 03/24/182035 -- @RADHA ARGUETA([id number],1)@ VTE Prophylaxis: Needs to be revised SIGNATURE: Juanito Carlisle MD PATIENT NAME: Sarina Lovett DATE: March 29, 2018 TIME: 3:59 PM PAGER/CONTACT #: [facility] Protein mass conc HNO ID: [id number] Author: Marito Real Service: Nephrology Author Type: [...] March 29, 2018 TIME: 10:23 AM PAGER: [phone] Addendum Pt seen and examined. Agree with Dr De Los Santos's note. Her renal function continues to worsen from her contrast nephropathy. Continue to use Lasix as needed only for fluid overload. She does not need IVF for oliguria. Dr Real Normal [facility] Magnesiumon 03-29-2018 Magnesium mass conc 1.6 mg/dL Low 1.7-2.6 [facility] Comment on above: Performed By: #### B MP, MG1, CBCDIF ####[facility] [place], [place] [phone] NURSING PROGon 03-29-2018 Protein mass conc HNO ID: [id number] Author: Augie (Zak) ZAK Villafuerte Service: (none) Author Type: Registered Nurse Type: Nursing Progress Note Filed: 03/30/2018 2:22 AM Note Text: Nursing Progress Note Patient Name: Sarina Lovett Patient Location: [id number]/[facility]* Daily Note: 1943 The patient assisted [...] at this time. 0220 report called to [facility]33 This note was completed by: Augie Villafuerte RN [facility] Protein mass conc HNO ID: [id number] Author: Delma CabreraRn) ZAK Garsia Service: Critical [...] obtain and sent specimen for c-diff.. Normal [facility] Protein mass conc HNO ID: [id number] Author: Constantine CabreraRn) ZAK Potter Service: (none) Author Type: Registered Nurse Type: Nursing Progress Note Filed: 03/29/2018 2:58 AM Note Text: Nursing Progress Note Patient Name: Sarina Lovett [id number] Daily Note: 1915: Received report from ZAK Nguyễn. 2000: Assessment complete, see flow sheet. VSS. 213: Nicardine held per MAR parameters. 0000: Reassessment complete, see flow sheet. VSS. 0230: Dr. Ferrari notified of pt's decreased UO. Order placed for 250 NS Bolus. Given per APR. This note was completed by: Constantine Potter RN [facility] PROGRESSon 03-29-2018 Protein mass conc HNO ID: [id number] Author: Kinsey Dumas MD Service: Hospital Medicine [...] Staff, Hospital Medicine March 29, 2018 ? [facility]ICINE [facility] PROGRESS NOTE NAME: Sarina Lovett [...] home, last A1c 9.3% in 08/2016 at [facility]. Repeat A1c on admission 6.0%. - [...] MD Family Medicine PGY2 March 29, 2018 [facility] ALLIED HEALTHon 03-28-2018 ALLIED HEALTH HNO ID: [id number] Author: Amanda Retana (Rt) Service: Radiology Author Type: Radiology Scheduler Type: Allied Health Filed: 03/28/2018 10:25 AM [...] RT March 28, 2018 10:24 AM Normal [facility] Basic Metabolic Panlon 03-28 Anion gap molar conc 25 mmol/L High 9-18 [facility] Comment on above: Performed By: #### B MP, MG1 ####[place] [phone] Calcium mass conc 8.4 mg/dL Low 8.5-10.5 [facility] Comment on above: Performed By: #### B MP, MG1 ####[place] [phone] Chloride molar conc 96 mmol/L Low 98-110 [facility] Comment on above: Result Comment: Revi ewed Performed By: #### B MP, MG1 ####[place] [phone] CO2 molar conc 14 mmol/L Low 23-32 [facility] Comment on above: Performed By: #### B MP, MG1 ####[place] [phone] Creatinine mass conc 2.05 mg/dL High 0.70-1.40 [facility] Comment on above: Performed By: #### B MP, MG1 ####[place] [phone] eGFR- Amer. 29 Low >60 [facility] Comment on above: Performed By: #### B MP, MG1 ####[place] [phone] GFR/1.73 sq M predicted among non-blacks MDRD vol rate/area (S/P/Bld) 24 . Low >60 [facility] Comment on above: Performed By: #### B MP, MG1 ####[place] [phone] Glucose mass conc 146 mg/dL High 65-100 [facility] Comment on above: Performed By: #### B MP, MG1 ####[facility] [place], [place] [phone] Potassium molar conc 4.1 mmol/L Normal 3.5-5.0 [facility] Comment on above: Performed By: #### B MP, MG1 ####[facility] [place], [place] [phone] Sodium molar conc 135 mmol/L Normal 132-148 [facility] Comment on above: Performed By: #### B MP, MG1 ####[facility] [place], [place] [phone] Urea nitrogen mass conc 41 mg/dL High 8-25 [facility] Comment on above: Performed By: #### B MP, MG1 ####[facility] [place], [place] [phone] CONSULT PROGon 03-28-2018 Protein mass conc HNO ID: [id number] Author: Deanna Yoo Service: Cardiovascular Medicine Author [...] bid She will follow up with her procedure manager at [facility] after discharge Active Problems: Essential hypertension, [...] 75 mg ORAL DAILY 03/24/182035 -- @RADHA ARGUETA([id number],1)@ VTE Prophylaxis: VTE prophylaxis appropriate SIGNATURE: Deanna Yoo APRN.CNP PATIENT NAME: Sarina Lovett DATE: March 28, 2018 TIME: 1:42 PM PAGER/CONTACT #: Michelle [facility] Protein mass conc HNO ID: [id number] Author: Marito Real Service: Nephrology Author Type: [...] 28, 2018 TIME: 11:08 AM PAGER/CONTACT #: [phone] Addendum Patient seen and examined. Agree with Dr. De Los Santos's progress note. Renal function is worsening likely due to contrast nephropathy. Give Lasix as needed when she is SOB. Renal US shows splenic masses - consider noncontrast CT. Lactate is normal. Dr Real Normal [facility] Lactateon 03-28-2018 Lactate molar conc 1.1 mmol/L Normal 0.4-2.0 [facility] Comment on above: Performed By: #### L ACT ####[place] [phone] Magnesiumon 03-28-2018 Magnesium mass conc 1.7 mg/dL Normal 1.7-2.6 [facility] Comment on above: Performed By: #### B MP, MG1 ####[place] [phone] NURSING PROGon 03-28-2018 Protein mass conc HNO ID: [id number] Author: Delma (Rn) ZAK Garsia Service: Critical [...] at bedside.Patient continues to deny complaints. Normal [facility] Protein mass conc HNO ID: [id number] Author: Constantine CabreraRn) ZAK Potter Service: (none) Author Type: Registered Nurse Type: Nursing Progress Note Filed: 03/28/2018 7:47 AM Note Text: Nursing Progress Note Patient Name: Sarina Lovett Patient Location: [place] [address]/[place] [address]* Daily Note: 1914: Received report from ZAK Mclaughlin. 1999: Assessment complete, see flow sheet. Pt presenting with lower diastolic pressures but with MAP WNL. All other VSS. 2129: Pt presenting with increasing SOB at rest and upon exertion and toileting. Orders for CPAP and Browning Catheter placed by [facility] Hospitalist. 2199: [facility] hospitalist notified of widening pulse pressures and decreased diastolic preesure. Orders placed for ECHO to be completed. 0000: Assessment complete, see flow sheet. 0400: Assessment complete, see flow sheet. 0530: Removed pt CPAP per [facility] hospitalist permission. Pt placed on 6L NC. Pt SpO2 > 92% 0600: Pt placed on 4L NC. Pt SpO2 > 92% 0630: Pt placed on 2L NC. Pt SpO2 > 92%. 0715: Report given to ZAK Nguyễn This note was completed by: Constantine Potter RN [facility] PROGRESSon 03-28-2018 Protein mass conc HNO ID: [id number] Author: Kinsey Dumas MD Service: Hospital Medicine [...] MD Staff, Hospital Medicine March 28, 2018 [facility] PROGRESS NOTE NAME: Sarina Lovett [...] home, last A1c 9.3% in 08/2016 at [facility]. Repeat A1c on admission 6.0%. - [...] IPCs Dispo - continue care in [facility] SUBJECTIVE INTERVAL HPI: Mrs. Lovett feels okay [...] MD Family Medicine PGY2 March 28, 2018 [facility] XR CHEST 1V FRONTAL PORTon 0 [...] bilateral alveolar infiltrates without appreciable interval change Chef De Froid: PSCGrace Transcribe Date/Time: Mar 28 2018 10:55A Dictated by : EULALIO WILLIAM MD This examination was interpreted and the report reviewed and electronically signed by: EULALIO WILLIAM MD on Mar 28 2018 10:57AM EST [id number] [facility] ALLIED HEALTHon 03-27-2018 ALLIED HEALTH HNO ID: [id number] Author: Shira (RtAmanda Ocasio Service: Radiology Author Type: Radiology Scheduler Type: Allied Health Filed: 03/27/2018 6:29 PM [...] RT Stanley March 27, 2018 6:29 PM [facility] Arterial Blood Gas (FOR WEST USE ONLY)on 03-27-2018 Base Excess NEG 10 Normal [facility] Comment on above: Result Comment: -3 t o 3 Performed By: #### A BGR ####[place] [phone] CO2 molar conc 16 mmol/L Low 22.0-28.0 [facility] Comment on above: Performed By: #### A BGR ####[place] [phone] Device Nasal Cannula Normal [facility] Comment on above: Performed By: #### A BGR ####[phone] Drawsite Left Radial + [facility] Comment on above: Performed By: #### A BGR ####[place] [phone] HCO3 molar conc (Bld) 15 mmol/L Low 22-26 [facility] Comment on above: Performed By: #### A BGR ####[place] [phone] O2 Administered 45.0 Normal [facility] Comment on above: Performed By: #### A BGR ####[place] [phone] Oxygen ppres (Bld) 68 mm Hg Low 80-100 [facility] Comment on above: Performed By: #### A BGR ####[place] [phone] Oxygen ppres (Bld) 92 % Normal 90-98 [facility] Comment on above: Performed By: #### A BGR ####[place] [phone] pCO2 33 mm Hg Low 35-48 [facility] Comment on above: Performed By: #### A BGR ####[place] [phone] pH (Bld) 7.29 [pH] Low 7.35-7.45 [facility] Comment on above: Performed By: #### A BGR ####[place] [phone] Basic Metabolic Panlon 03-27 Anion gap molar conc 17 mmol/L Normal 9-18 [facility] Comment on above: Performed By: #### P TT, NTBNP, HSTNT, CBCDIF, PT, CKCKMB, CMP #### [place] [address] Calcium mass conc 8.6 mg/dL Normal 8.5-10.5 [facility] Comment on above: Performed By: #### P TT, NTBNP, HSTNT, CBCDIF, PT, CKCKMB, CMP #### [place] [address] Chloride molar conc 104 mmol/L Normal 98-110 [facility] Comment on above: Performed By: #### P TT, NTBNP, HSTNT, CBCDIF, PT, CKCKMB, CMP #### [place] [phone] CO2 molar conc 15 mmol/L Low 23-32 [facility] Comment on above: Performed By: #### P TT, NTBNP, HSTNT, CBCDIF, PT, CKCKMB, CMP #### [place] [address] Creatinine mass conc 1.79 mg/dL High 0.70-1.40 [facility] Comment on above: Performed By: #### P TT, NTBNP, HSTNT, CBCDIF, PT, CKCKMB, CMP #### [place] [address] eGFR- Amer. 34 Low >60 [facility] Comment on above: Performed By: #### P TT, NTBNP, HSTNT, CBCDIF, PT, CKCKMB, CMP #### [place] [address] GFR/1.73 sq M predicted among non-blacks MDRD vol rate/area (S/P/Bld) 28 . Low >60 [facility] Comment on above: Performed By: #### P TT, NTBNP, HSTNT, CBCDIF, PT, CKCKMB, CMP #### [place] [address] Glucose mass conc 127 mg/dL High 65-100 [facility] Comment on above: Performed By: #### P TT, NTBNP, HSTNT, CBCDIF, PT, CKCKMB, CMP #### [place] [address] Potassium molar conc 5.6 mmol/L High 3.5-5.0 [facility] Comment on above: Result Comment: Revi ewed Performed By: #### P TT, NTBNP, HSTNT, CBCDIF, PT, CKCKMB, CMP #### [facility] [address] [place] [address] Sodium molar conc 136 mmol/L Normal 132-148 [facility] Comment on above: Performed By: #### P TT, NTBNP, HSTNT, CBCDIF, PT, CKCKMB, CMP #### [facility] [address] [place] [address] Urea nitrogen mass conc 37 mg/dL High 8-25 [facility] Comment on above: Performed By: #### P TT, NTBNP, HSTNT, CBCDIF, PT, CKCKMB, CMP #### [place] [phone] [place] [phone] CASE MGT INIT CARROLLon 2018 CASE MGT INIT CARROLL HNO ID: [id number] Author: Yoon CabreraRn) ZAK Marshall Service: Case [...] To improve my functional status Health Insurance: [employer] [facility] Health Issues Impacting Discharge Plan: Chronic DM,HTN Last Admission Date: Previous admit date: 02/27/2015 Is this Within the Past 30 days? No Advance Directive: Current Advance Directive: None State Patrol Officer Attempted to Assist with AD Completion: Yes [...] None Has the Patient Been in a Prison Facility in the Past 30 days? N/A SOCIAL: Living Arrangement: Home Lives With: Spouse Financial Resources: Retired Primary Contact: Extended Emergency Contact Information Primary Emergency Contact: Daniel Lovett Address: [address] [place] Relation: Spouse Supportive: Yes Other [...] 0 I feel financially burdened by my [id number] expenses for my prescription medication: Disagree completely [...] female admitted for CP, pt taken to orthodontic lab technician, cardiology following. Met with pt at bedside, pt states she is independent , drives and lives with her , B/B is on the same floor, pt denies any DME, plan for home with no skilled needs. SIGNATURE: Yoon Marshall RN,BSN PATIENT NAME: Sarina Lovett DATE: March 27, 2018 TIME: 12:06 PM PAGER/CONTACT #: [phone] Normal [facility] CBC and Differentialon 03-27 Abs Baso <0.03 Normal <0.11 [facility] Comment on above: Performed By: #### P TT, NTBNP, HSTNT, CBCDIF, PT, CKCKMB, CMP #### [place] [address] Abs Portage 0.60 k/uL Normal <0.87 [facility] Comment on above: Performed By: #### P TT, NTBNP, HSTNT, CBCDIF, PT, CKCKMB, CMP #### [place] [address] Abs Neut 9.61 k/uL High 1.45-7.50 [facility] Comment on above: Performed By: #### P TT, NTBNP, HSTNT, CBCDIF, PT, CKCKMB, CMP #### [place] [address] Basophils/100 WBC (Bld) 0.2 % Normal [facility] Comment on above: Performed By: #### P TT, NTBNP, HSTNT, CBCDIF, PT, CKCKMB, CMP #### [place] [address] DTYPE Auto Diff Normal [facility] Comment on above: Performed By: #### P TT, NTBNP, HSTNT, CBCDIF, PT, CKCKMB, CMP #### [place] [address] Eosinophils #/vol (Bld) 0.05 10*3/uL Normal <0.46 [facility] Comment on above: Performed By: #### P TT, NTBNP, HSTNT, CBCDIF, PT, CKCKMB, CMP #### [address] Eosinophils/100 WBC (Bld) 0.5 % Normal [facility] Comment on above: Performed By: #### P TT, NTBNP, HSTNT, CBCDIF, PT, CKCKMB, CMP #### [place] [address] Erythrocyte distribution width Ratio (RBC) 13.8 % Normal 11.5-15.0 [facility] Comment on above: Performed By: #### P TT, NTBNP, HSTNT, CBCDIF, PT, CKCKMB, CMP #### [place] [address] Hematocrit Volume Fraction (Bld) 29.2 % Low 36.0-46.0 [facility] Comment on above: Performed By: #### P TT, NTBNP, HSTNT, CBCDIF, PT, CKCKMB, CMP #### [place] [address] Hemoglobin mass conc (Bld) 9.3 g/dL Low 11.5-15.5 [facility] Comment on above: Performed By: #### P TT, NTBNP, HSTNT, CBCDIF, PT, CKCKMB, CMP #### [place] [address] Lymphocytes #/vol (Bld) 0.69 10*3/uL Low 1.00-4.00 [facility] Comment on above: Performed By: #### P TT, NTBNP, HSTNT, CBCDIF, PT, CKCKMB, CMP #### [place] [address] Lymphocytes/100 WBC (Bld) 6.3 % Normal [facility] Comment on above: Performed By: #### P TT, NTBNP, HSTNT, CBCDIF, PT, CKCKMB, CMP #### [place] [address] MCH Entitic mass (RBC) 28.6 pG Normal 26.0-34.0 [facility] Comment on above: Performed By: #### P TT, NTBNP, HSTNT, CBCDIF, PT, CKCKMB, CMP #### [place] [address] MCHC mass conc (RBC) 31.8 g/dL Normal 30.5-36.0 [facility] Comment on above: Performed By: #### P TT, NTBNP, HSTNT, CBCDIF, PT, CKCKMB, CMP #### [place] [phone] MCV Entitic volume (RBC) 89.8 fL Normal 80.0-100.0 [facility] Comment on above: Performed By: #### P TT, NTBNP, HSTNT, CBCDIF, PT, CKCKMB, CMP #### [address] Monocytes/100 WBC (Bld) 5.5 % Normal [facility] Comment on above: Performed By: #### P TT, NTBNP, HSTNT, CBCDIF, PT, CKCKMB, CMP #### [place] [phone] Neutrophils/100 WBC (Bld) 87.5 % Normal [facility] Comment on above: Performed By: #### P TT, NTBNP, HSTNT, CBCDIF, PT, CKCKMB, CMP #### [place] [phone] Platelet mean volume Entitic volume (Bld) 10.4 fL Normal 9.0-12.7 [facility] Comment on above: Performed By: #### P TT, NTBNP, HSTNT, CBCDIF, PT, CKCKMB, CMP #### [place] [phone] Platelets #/vol (Bld) 141 10*3/uL Low 150-400 [facility] Comment on above: Performed By: #### P TT, NTBNP, HSTNT, CBCDIF, PT, CKCKMB, CMP #### [place] [phone] RBC #/vol (Bld) 3.25 10*6/uL Low 3.90-5.20 [facility] Comment on above: Performed By: #### P TT, NTBNP, HSTNT, CBCDIF, PT, CKCKMB, CMP #### [place] [phone] WBC #/vol (Bld) 10.97 10*3/uL Normal 3.70-11.00 [facility] Comment on above: Performed By: #### P TT, NTBNP, HSTNT, CBCDIF, PT, CKCKMB, CMP #### [phone] CK, Total and CKMBon 019 CK enzyme act/vol 1014 U/L High 30-220 [facility] Comment on above: Performed By: #### P TT, NTBNP, HSTNT, CBCDIF, PT, CKCKMB, CMP #### [phone] CK MB % 11.4 % High 0.0-4.0 [facility] Comment on above: Result Comment: Call ed to and read back by: ZAK PRO [facility] 03/27/18 0525 ROBB Performed By: #### P TT, NTBNP, HSTNT, CBCDIF, PT, CKCKMB, CMP #### [phone] MB 115.9 ng/mL High 0.0-8.8 [facility] Comment on above: Performed By: #### P TT, NTBNP, HSTNT, CBCDIF, PT, CKCKMB, CMP #### [place] [phone] CONSULT PROGon 03-27-2018 Protein mass conc HNO ID: [id number] Author: Marito Real Service: Hypertension AND Nephrology [...] Date 03/27/18 0700 - 03/28/18 0659 Shift [id number] 7471-7134 1237-6821 24 Hour Total I N T A [...] DATE: March 27, 2018 TIME: 3:31 PM [facility] Protein mass conc HNO ID: [id number] Author: Alicia Miller Service: Psychiatry Author Type: [...] her former therapist Dr. Melody Montero on [facility] in [place]. Supportive therapy provided. She declines phone call to her for collateral info. Will sign off, please reconsult psychiatry should further acute psychiatric issues arise during this admission. SUBJECTIVE: Ms. Lovett is sitting propped up in bed, watching the [employer]. Reviews most recent stressors, including ongoing (chronic) strained relationship with 3 of her 5 children. Maintains good relationship with son in [place] and daughter in [place], [place]. Struggled more with mood since closest sister 1.5 years ago (noncompliant with meds). Says taking Sertraline (recently increased to 150 mg po daily) and Welbutrin XL for last 5-10 years. Tolerating medications without issues. Saw Dr. Melody Maurice in [place] for a couple of years and stopped [...] PM TBILI 0.2 03/24/2018 05:35 PM Normal [facility] Ferritinon 03-27-2018 Ferritin mass conc 116.8 ng/mL Normal 14.7-205.1 [facility] Comment on above: Performed By: #### P TT, NTBNP, HSTNT, CBCDIF, PT, CKCKMB, CMP #### [place] [phone] Iron and TIBCon 03-27-2018 Iron mass conc 40 ug/dL Normal 35-150 [facility] Comment on above: Performed By: #### P TT, NTBNP, HSTNT, CBCDIF, PT, CKCKMB, CMP #### [place] [address] TIBC 279 ug/dL Normal 250-450 [facility] Comment on above: Performed By: #### P TT, NTBNP, HSTNT, CBCDIF, PT, CKCKMB, CMP #### [place] [phone] Transferrin Saturatn 14 % Low 20-55 [facility] Comment on above: Performed By: #### P TT, NTBNP, HSTNT, CBCDIF, PT, CKCKMB, CMP #### [place] [address] Magnesiumon 03-27-2018 Magnesium mass conc 2.0 mg/dL Normal 1.7-2.6 [facility] Comment on above: Performed By: #### P TT, NTBNP, HSTNT, CBCDIF, PT, CKCKMB, CMP #### [facility] [address] [place] [address] NT Pro BNPon 03-27-2018 Protein mass conc 59788 pg/mL High <125 [facility] Comment on above: Performed By: #### N TBNP ####[facility] [place], [place] [phone] NURSING PROGon 03-27-2018 Protein mass conc HNO ID: [id number] Author: Patricia (Rn) ZAK Caceres Service: Nursing Author Type: Registered Nurse Type: Nursing Progress Note Filed: 03/27/2018 6:11 AM Note Text: Nursing Progress Note Patient Name: Sarina Lovett Patient Location: [place] [address]/[place] [address]* Daily Note: Nursing note for evening shift This note was completed by: Patricia Caceres, RN 1680 report received and pt care assumed. Pt was admitted to [facility] on 03/24. Dx NSTEMI and HTN urgency and was placed on a NTG drip. PBNR >9000 and pt was plced on a heparin drip which is now off. Pt was taken to the quality assurance qa lab analyst today with Dr. 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 Clinically stable Continue present treatment k is elevated Will recheck, could be hemolysis Normal [facility] Protein mass conc HNO ID: [id number] Author: Mame Bowers Service: Hospital Medicine Author Type: Physician Type: Progress Notes Filed: 03/27/2018 1:51 PM Note Text: HOSPITAL MEDICINE [facility] PROGRESS NOTE NAME: Sarina Lovett [...] home, last A1c 9.3% in 08/2016 at [facility]. Repeat A1c on admission 6.0%. - [...] IPCs Dispo - continue care in [facility] SUBJECTIVE INTERVAL HPI: Ms. Lovett feels well [...] MD Staff, Hospital Medicine March 27, 2018 [facility] PT EDon 03-27-2018 PT ED HNO ID: [id number] Author: Renetta CabreraRn) ZAK Ball Service: Cardiac Rehab Author Type: Registered Nurse Type: Patient Education Filed: 03/27/2018 2:57 PM Note Text: CARDIAC REHABILITATION PATIENT EDUCATION PROGRESS NOTE Name: Sarina Lovett Date of Service: 03/27/2018 Time of Service: 2:53 PM ASSESSMENT: Risk Factors Identified: Diabetic: Insulin Dependent Hyperlipidemia Hypertension Smoker: # of packs per day: 1. Total Years of Smokin. 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 RECOMMENDATIONS: Patient interested in Phase II Outpatient Cardiac Rehab: No DIAGNOSIS: Acute Myocardial Infarction/Acute Coronary Syndrome: non ST RI AMI/ACS Teaching Points: -Basic Anatomy and Disease [...] Cardiac Rehabilitation Brochure Educational Binder List of [facility] Cardiac Rehab Programs Outpatient Diet/Nutrition Class Invitation Signature: Renetta ball RN Pager: fuentes Date: March 27, 2018 Time: 2:53 PM Normal [facility] Phosphoruson 03-27-2018 Phosphate mass conc 4.7 mg/dL High 2.5-4.5 [facility] Comment on above: Performed By: #### P TT, NTBNP, HSTNT, CBCDIF, PT, CKCKMB, CMP #### [place] [address] Potassiumon 03-27-2018 Potassium molar conc 5.0 mmol/L Normal 3.5-5.0 [facility] Comment on above: Performed By: #### K 1 ####[place] [phone] Potassium molar conc 5.8 mmol/L High 3.5-5.0 [facility] Comment on above: Performed By: #### P TT, NTBNP, HSTNT, CBCDIF, PT, CKCKMB, CMP #### [place] [phone] Protein/Creatinine Ratioon 0 03-27-2018 Creatinine,Urine,Ran 33.9 mg/dL Normal 20-300 [facility] Comment on above: Performed By: #### P TT, NTBNP, HSTNT, CBCDIF, PT, CKCKMB, CMP #### [place] [phone] Protein mass conc (U) 6 mg/dL Normal 0-20 [facility] Comment on above: Performed By: #### P TT, NTBNP, HSTNT, CBCDIF, PT, CKCKMB, CMP #### [address] [place] [address] Protein/Creatinine Ratio 0.2 High <0.2 [facility] Comment on above: Performed By: #### P TT, NTBNP, HSTNT, CBCDIF, PT, CKCKMB, CMP #### [place] [address] THERAPY NTon 03-27-2018 THERAPY NT HNO ID: [id number] Author: Silvana ([place]) LALO Black Service: Respiratory Therapy Author Type: Respiratory Therapist Type: Therapy (PT/OT/Speech/Resp) Filed: 03/27/2018 7:18 PM Note Text: ABG drawn from left radial, Laci test yes; pressure held, bleeding stopped. Normal [facility] Troponin Ton 03-27-2018 Troponin T.cardiac mass conc 2.160 ng/mL High 0.000-0.029 [facility] Comment on above: Result Comment: Call ed to and read back by: ZAK PRO [facility] 03/27/18 0525 ROBB Performed By: #### P TT, NTBNP, HSTNT, CBCDIF, PT, CKCKMB, CMP #### [place] [address] XR CHEST 1V FRONTALon 2018 XR CHEST [...] No pneumothorax. Cardiomediastinal silhouette: Stable cardiomediastinal silhouette. Chef De Froid: JENNIFER Transcribe Date/Time: Mar 27 2018 6:50P Dictated by : JOHAN MUNOZ MD This examination was interpreted and the report reviewed and electronically signed by: JOHAN MUNOZ MD on Mar 27 2018 6:52PM EST [id number] N [facility] XR CHEST 1V FRONTAL * * [...] atelectasis right lung base 2. Cardiac megaly Chef De Froid: PSCB Transcribe Date/Time: Mar 27 2018 5:27A Dictated by : YADIRA FUNEZ MD This examination was interpreted and the report reviewed and electronically signed by: YADIRA FUNEZ MD on Mar 27 2018 5:37AM EST [id number] N [facility] Basic Metabolic Panlon 03-26 Anion gap molar conc 12 mmol/L Normal 9-18 [facility] Comment on above: Performed By: #### P TT, NTBNP, HSTNT, CBCDIF, PT, CKCKMB, CMP #### [facility] [address] [place] [address] Calcium mass conc 9.0 mg/dL Normal 8.5-10.5 [facility] Comment on above: Performed By: #### P TT, NTBNP, HSTNT, CBCDIF, PT, CKCKMB, CMP #### [place] [address] Chloride molar conc 104 mmol/L Normal 98-110 [facility] Comment on above: Performed By: #### P TT, NTBNP, HSTNT, CBCDIF, PT, CKCKMB, CMP #### [phone] CO2 molar conc 19 mmol/L Low 23-32 [facility] Comment on above: Performed By: #### P TT, NTBNP, HSTNT, CBCDIF, PT, CKCKMB, CMP #### [place] [phone] Creatinine mass conc 1.63 mg/dL High 0.70-1.40 [facility] Comment on above: Performed By: #### P TT, NTBNP, HSTNT, CBCDIF, PT, CKCKMB, CMP #### [place] [phone] eGFR- Amer. 38 Low >60 [facility] Comment on above: Performed By: #### P TT, NTBNP, HSTNT, CBCDIF, PT, CKCKMB, CMP #### [place] [phone] GFR/1.73 sq M predicted among non-blacks MDRD vol rate/area (S/P/Bld) 31 . Low >60 [facility] Comment on above: Performed By: #### P TT, NTBNP, HSTNT, CBCDIF, PT, CKCKMB, CMP #### [place] [phone] Glucose mass conc 113 mg/dL High 65-100 [facility] Comment on above: Performed By: #### P TT, NTBNP, HSTNT, CBCDIF, PT, CKCKMB, CMP #### [place] [phone] Potassium molar conc 4.6 mmol/L Normal 3.5-5.0 [facility] Comment on above: Performed By: #### P TT, NTBNP, HSTNT, CBCDIF, PT, CKCKMB, CMP #### [place] [phone] Sodium molar conc 135 mmol/L Normal 132-148 [facility] Comment on above: Performed By: #### P TT, NTBNP, HSTNT, CBCDIF, PT, CKCKMB, CMP #### [place] [address] Urea nitrogen mass conc 32 mg/dL High 8-25 [facility] Comment on above: Performed By: #### P TT, NTBNP, HSTNT, CBCDIF, PT, CKCKMB, CMP #### [place] [address] CBCon 03-26-2018 Erythrocyte distribution width Ratio (RBC) 13.5 % Normal 11.5-15.0 [facility] Comment on above: Performed By: #### P TT, NTBNP, HSTNT, CBCDIF, PT, CKCKMB, CMP #### [place] [address] Hematocrit Volume Fraction (Bld) 28.1 % Low 36.0-46.0 [facility] Comment on above: Performed By: #### P TT, NTBNP, HSTNT, CBCDIF, PT, CKCKMB, CMP #### [place] [address] Hemoglobin mass conc (Bld) 9.3 g/dL Low 11.5-15.5 [facility] Comment on above: Performed By: #### P TT, NTBNP, HSTNT, CBCDIF, PT, CKCKMB, CMP #### [place] [address] MCH Entitic mass (RBC) 28.9 pG Normal 26.0-34.0 [facility] Comment on above: Performed By: #### P TT, NTBNP, HSTNT, CBCDIF, PT, CKCKMB, CMP #### [place] [address] MCHC mass conc (RBC) 33.1 g/dL Normal 30.5-36.0 [facility] Comment on above: Performed By: #### P TT, NTBNP, HSTNT, CBCDIF, PT, CKCKMB, CMP #### [place] [phone] MCV Entitic volume (RBC) 87.3 fL Normal 80.0-100.0 [facility] Comment on above: Performed By: #### P TT, NTBNP, HSTNT, CBCDIF, PT, CKCKMB, CMP #### [place] [phone] Platelet mean volume Entitic volume (Bld) 10.1 fL Normal 9.0-12.7 [facility] Comment on above: Performed By: #### P TT, NTBNP, HSTNT, CBCDIF, PT, CKCKMB, CMP #### [place] [phone] Platelets #/vol (Bld) 145 10*3/uL Low 150-400 [facility] Comment on above: Performed By: #### P TT, NTBNP, HSTNT, CBCDIF, PT, CKCKMB, CMP #### [place] [phone] RBC #/vol (Bld) 3.22 10*6/uL Low 3.90-5.20 [facility] Comment on above: Performed By: #### P TT, NTBNP, HSTNT, CBCDIF, PT, CKCKMB, CMP #### [place] [phone] WBC #/vol (Bld) 4.28 10*3/uL Normal 3.70-11.00 [facility] Comment on above: Performed By: #### P TT, NTBNP, HSTNT, CBCDIF, PT, CKCKMB, CMP #### [place] [phone] CONSULTon 03-26-2018 CONSULT HNO ID: [id number] Author: Marito Real Service: Hypertension AND Nephrology Author Type: Physician Type: Consults Filed: 04/18/2018 3:55 PM Note Text: [facility] - Consultation SARINA LOVETT : 1945 AGE: 73 SEX: F [facility]: [id number] [facility]: [facility] EMERGENCY DEPARTMENT: [id number] ATTENDING PHYSICIAN: Larisa Dougherty M.D. DATE OF [...] been found to have a non-ST- elevation RI. She is going to be having a [...] kidney disease and has never seen a director of market intelligence before. Her creatinine is 1.6 today, and [...] ferrous sulfate 325 mg b.i.d., vitamin D 16130 units weekly, Plavix 75 mg daily, Coreg [...] is retired. 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 She smoked for 50 years and then [...] questions or concerns. Marito Real M.D. Nephrology SB:[id number] [facility] CONSULT HNO ID: [id number] Author: Marito Real Service: Hypertension AND Nephrology Author Type: Physician Type: Consults Filed: 03/26/2018 10:17 AM Note Text: Dictation number: [id number] JULIETA on CKD 3 Check spot protein/Cr [...] plans to quit smoking after d/c Normal [facility] Hemoglobin A1con 03-26-2018 Hemoglobin A1c/Hemoglobin.total mass fraction (Bld) 6.0 % High 4.3-5.6 [facility] Comment on above: Result Comment: Amer ican Diabetes Association guidelines indicate that patients with HgbA1c in the range 5.7-6.4% are at increased risk for development of diabetes, and intervention by lifestyle modification may be beneficial. HgbA1c greater or equal to 6.5% is considered diagnostic of diabetes. Performed By: #### P TT, NTBNP, HSTNT, CBCDIF, PT, CKCKMB, CMP #### [facility] [address] [place] [address] Hemoglobin A1c/Hemoglobin.total mass fraction (Bld) 126 mg/dL Normal [facility] Comment on above: Result Comment: eAG: (Estimated average glucose) is a calculated value from HgbA1c and is telecommunications sales representative of the average blood glucose level in the last 2-3 month period. Performed By: #### P TT, NTBNP, HSTNT, CBCDIF, PT, CKCKMB, CMP #### [place] [phone] Lipid Panel, [place] 019 Cholesterol in HDL mass conc 33 mg/dL Low >39 [facility] Comment on above: Result Comment: 40-5 9 mg/dL, Acceptable >59 mg/dL, High: Negative risk factor for coronary heart disease <40 mg/dL, Low: Positive risk factor for coronary heart disease Performed By: #### P TT, NTBNP, HSTNT, CBCDIF, PT, CKCKMB, CMP #### [place] [phone] Cholesterol in LDL mass conc 221 mg/dL High <100 [facility] Comment on above: Result Comment: <100 mg/dL, Optimal 100-129 mg/dL, Near optimal/above optimal 130-159 mg/dL, Borderline high 160-189 mg/dL, High >189 mg/dL, Very high Secondary prevention optimal LDL Cholesterol levels are recommended to be < 70 mg/dL Performed By: #### P TT, NTBNP, HSTNT, CBCDIF, PT, CKCKMB, CMP #### [place] [phone] Cholesterol mass conc 314 mg/dL High <200 [facility] Comment on above: Result Comment: <200 mg/dL, Desirable 200-239 mg/dL, Borderline high >239 mg/dL, High Performed By: #### P TT, NTBNP, HSTNT, CBCDIF, PT, CKCKMB, CMP #### [place] [phone] LDL:HDL Ratio 6.70 High <2.54 [facility] Comment on above: Result Comment: Refe rence: 1. National Cholesterol Education Program ATP III Guideline At-A-Glance Quick Desk Reference: National Heart, Lung, and Blood [place]. National Institutes of Health. 2001: NIH Publication No. 01-3305. 2. An International Atherosclerosis Society position paper: global recommendations for the management of dyslipidemia: executive summary, Atherosclerosis. 2014: 232(2):410-413. Performed By: #### P TT, NTBNP, HSTNT, CBCDIF, PT, CKCKMB, CMP #### [place] [address] Non HDL Cholesterol 281 mg/dL High <130 [facility] Comment on above: Result Comment: <130 mg/dL, Optimal 130-159 mg/dL, Near optimal/above optimal 160-189 mg/dL, Borderline high 190-219 mg/dL, High >219 mg/dL, Very high Secondary prevention optimal non HDL Cholesterol levels are recommended to be < 100 mg/dL Performed By: #### P TT, NTBNP, HSTNT, CBCDIF, PT, CKCKMB, CMP #### [place] [address] TC:HDL Ratio 9.52 High <5.10 [facility] Comment on above: Performed By: #### P TT, NTBNP, HSTNT, CBCDIF, PT, CKCKMB, CMP #### [place] [address] Triglyceride mass conc 301 mg/dL High <150 [facility] Comment on above: Result Comment: <150 mg/dL, Normal 150-199 mg/dL, Borderline high 200-499 mg/dL, High >499 mg/dL, Very high Performed By: #### P TT, NTBNP, HSTNT, CBCDIF, PT, CKCKMB, CMP #### [place] [address] VLDL Cholesterol 60 mg/dL High <30 [facility] Comment on above: Performed By: #### P TT, NTBNP, HSTNT, CBCDIF, PT, CKCKMB, CMP #### [place] [address] NURSING PROGon 03-26-2018 Protein mass conc HNO ID: [id number] Author: Shelley CabreraRn) ZAK Aponte Service: (none) Author Type: Registered Nurse Type: Nursing Progress Note Filed: 03/26/2018 10:24 PM Note Text: Nursing Progress Note Patient Name: Sarina Lovett Patient Location: [place] [address]/[place] [address]* Daily Note: 1900: Report received from previous shift RN 2000: Assessment complete, see flow sheets for details. Pt AANDO x3, denies pain, VSS. 2229: Report given to oncoming RN This note was completed by: Shelley Aponte RN [facility] Protein mass conc HNO ID: [id number] Author: Geeta (Rn) ZAK Woods Service: (none) Author Type: Registered Nurse Type: Nursing Progress Note Filed: 03/26/2018 7:46 PM Note Text: Nursing Progress Note Patient Name: Sarina Lovett Patient Location: [place] [address]/[facility] * Daily Note: 0730 Bedside report received [...] as noted. 1215 Pt off unit to orthodontic lab technician. 1424 Pt back to [place] unit. 1430 [...] note was completed by: Geeta Woods RN [facility] OPERATIVE NOon 03-26-2018 OPERATIVE NO HNO ID: [id number] Author: Joy Browne Service: Cardiovascular Disease Author Type: Physician Type: Operative Report Filed: 03/26/2018 2:21 PM Note Text: MUSIC COPYIST PROCEDURE REPORT SERVICE DATE: 03/26/2018 SERVICE TIME: PRECISION LAYOUT WORKER: Joy Browne MD ATTENDING: Larisa Dougherty PRIMARY CARE PHYSICIAN: Sacha Ford MD REFERRING PROVIDER: LIBERIAN STUDY OF HEALTH and AGING SCALE:2=Well CARDIOVASCULAR INSTABILITY:No PRE-PROCEDURE DIAGNOSIS: 1. Acute Coronary Syndrome, more than 24 hours 2. Angina, Unstable POST PROCEDURE DIAGNOSIS: 1. [place] Coronary Artery Disease in the LAD (HEALTH DIAGNOSTICS TEACHER), RCA (HEALTH DIAGNOSTICS TEACHER) and LCX (HEALTH DIAGNOSTICS TEACHER) 2. Successful PCI of SVG to RCA [...] The patient was taken to the cardiac orthodontic lab technician where the entry site was prepped and [...] Dual Antiplatelet Therapy (DAPT) for [facility]. SIGNATURE: Joy Browne MD PATIENT NAME: Sarina Lovett DATE: March 26, 2018 TIME: 2:15 PM [facility] PLAN OF CAREon 03-26-2018 PLAN OF CARE HNO ID: [id number] Author: Ariela Martinez Service: Hospital Medicine Author [...] cardiac enzymes elevated - discussed with intervention scrap iron cutter - this is related to intervention - no concern for reinfarction Update: CXR with worsening pulmonary congestion Plan: - lasix 60mg given JULIETA - given CXR findings + increased o2 requirements this will also help reduced K level -Incentive spirometry for atelectasis Appreciate excellent nursing care Ariela Bautista MD, MSc Associate staff , Department of Hospital Medicine Clinical Deployment Specialistmotorcycle subassembly repairer [facility] P:[id number] T:[phone] 5PM-8AM: Please contact me directly for questions related to patient care [facility] PLAN OF CARE HNO ID: [id number] Author: Larisa Dougherty Service: Hospital Medicine Author Type: Physician Type: Plan of Care Filed: 03/26/2018 5:09 PM Note Text: Got cardene during cath, BP dropped to 110 when back in [place]/pale/nauseated Started NS bolus/infusion and she is much better BP meds reduced Larisa Dougherty MD [facility] PROGRESSon 03-26-2018 Protein mass conc HNO ID: [id number] Author: Larisa Dougherty Service: Hospital Medicine Author [...] Patient and RN SIGNATURE: Larisa Dougherty MD [facility] PTT,Anticoag Therapyon 03-26 aPTT Coag time (Bld) 53.5 s High 23.0-32.4 [facility] Comment on above: Result Comment: Unfr [...] laboratory APTT reagent in use throughout the [facility]. Performed By: #### P TT, NTBNP, HSTNT, CBCDIF, PT, CKCKMB, CMP #### [facility] [address] [place] [address] Type and Screenon 03-26-2018 ABO/RH(D) Positive Normal [facility] Comment on above: Performed By: #### P TT, NTBNP, HSTNT, CBCDIF, PT, CKCKMB, CMP #### [facility] [address] [place] [address] US KIDNEY/BLADDERon 03-26-19 19 US KIDNEY/BLADDER * [...] Dr. Real on 03/28/2018 at 1600 hours. Chef De Froid: JENNIFER Transcribe Date/Time: Mar 28 2018 3:45P Dictated by : ELEONORA HIGGINS MD This examination was interpreted and the report reviewed and electronically signed by: ELEONORA HIGGINS MD on Mar 28 2018 4:24PM EST [id number] Normal [facility] ALLIED HEALTHon 03-25-2018 ALLIED HEALTH HNO ID: [id number] Author: Shira (RtAmanda Ocasio Service: Radiology Author Type: Radiology Scheduler Type: Allied Health Filed: 03/25/2018 8:26 PM [...] RT Stanley March 25, 2018 8:26 PM [facility] Basic Metabolic Panlon 03-25 Anion gap molar conc 16 mmol/L Normal 9-18 [facility] Comment on above: Performed By: #### P TT, NTBNP, HSTNT, CBCDIF, PT, CKCKMB, CMP #### [place] [address] Calcium mass conc 8.7 mg/dL Normal 8.5-10.5 [facility] Comment on above: Result Comment: Revi ewed Performed By: #### P TT, NTBNP, HSTNT, CBCDIF, PT, CKCKMB, CMP #### [place] [address] Chloride molar conc 101 mmol/L Normal 98-110 [facility] Comment on above: Performed By: #### P TT, NTBNP, HSTNT, CBCDIF, PT, CKCKMB, CMP #### [place] [phone] CO2 molar conc 18 mmol/L Low 23-32 [facility] Comment on above: Performed By: #### P TT, NTBNP, HSTNT, CBCDIF, PT, CKCKMB, CMP #### [place] [phone] Creatinine mass conc 1.42 mg/dL High 0.70-1.40 [facility] Comment on above: Performed By: #### P TT, NTBNP, HSTNT, CBCDIF, PT, CKCKMB, CMP #### [place] [phone] eGFR- Amer. 44 Low >60 [facility] Comment on above: Performed By: #### P TT, NTBNP, HSTNT, CBCDIF, PT, CKCKMB, CMP #### [place] [phone] GFR/1.73 sq M predicted among non-blacks MDRD vol rate/area (S/P/Bld) 36 . Low >60 [facility] Comment on above: Performed By: #### P TT, NTBNP, HSTNT, CBCDIF, PT, CKCKMB, CMP #### [place] [phone] Glucose mass conc 125 mg/dL High 65-100 [facility] Comment on above: Performed By: #### P TT, NTBNP, HSTNT, CBCDIF, PT, CKCKMB, CMP #### [place] [phone] Potassium molar conc 5.0 mmol/L Normal 3.5-5.0 [facility] Comment on above: Performed By: #### P TT, NTBNP, HSTNT, CBCDIF, PT, CKCKMB, CMP #### [place] [phone] Sodium molar conc 135 mmol/L Normal 132-148 [facility] Comment on above: Performed By: #### P TT, NTBNP, HSTNT, CBCDIF, PT, CKCKMB, CMP #### [place] [phone] Urea nitrogen mass conc 30 mg/dL High 8-25 [facility] Comment on above: Performed By: #### P TT, NTBNP, HSTNT, CBCDIF, PT, CKCKMB, CMP #### [place] [phone] CBCon 03-25-2018 Erythrocyte distribution width Ratio (RBC) 13.6 % Normal 11.5-15.0 [facility] Comment on above: Performed By: #### P TT, NTBNP, HSTNT, CBCDIF, PT, CKCKMB, CMP #### [place] [phone] Hematocrit Volume Fraction (Bld) 29.8 % Low 36.0-46.0 [facility] Comment on above: Performed By: #### P TT, NTBNP, HSTNT, CBCDIF, PT, CKCKMB, CMP #### [place] [phone] Hemoglobin mass conc (Bld) 9.9 g/dL Low 11.5-15.5 [facility] Comment on above: Performed By: #### P TT, NTBNP, HSTNT, CBCDIF, PT, CKCKMB, CMP #### [place] [phone] MCH Entitic mass (RBC) 28.8 pG Normal 26.0-34.0 [facility] Comment on above: Performed By: #### P TT, NTBNP, HSTNT, CBCDIF, PT, CKCKMB, CMP #### [place] [phone] MCHC mass conc (RBC) 33.2 g/dL Normal 30.5-36.0 [facility] Comment on above: Performed By: #### P TT, NTBNP, HSTNT, CBCDIF, PT, CKCKMB, CMP #### [place] [phone] MCV Entitic volume (RBC) 86.6 fL Normal 80.0-100.0 [facility] Comment on above: Performed By: #### P TT, NTBNP, HSTNT, CBCDIF, PT, CKCKMB, CMP #### [place] [phone] Platelet mean volume Entitic volume (Bld) 10.2 fL Normal 9.0-12.7 [facility] Comment on above: Performed By: #### P TT, NTBNP, HSTNT, CBCDIF, PT, CKCKMB, CMP #### [address] Platelets #/vol (Bld) 157 10*3/uL Normal 150-400 [facility] Comment on above: Performed By: #### P TT, NTBNP, HSTNT, CBCDIF, PT, CKCKMB, CMP #### [place] [phone] RBC #/vol (Bld) 3.44 10*6/uL Low 3.90-5.20 [facility] Comment on above: Performed By: #### P TT, NTBNP, HSTNT, CBCDIF, PT, CKCKMB, CMP #### [place] [phone] WBC #/vol (Bld) 6.46 10*3/uL Normal 3.70-11.00 [facility] Comment on above: Performed By: #### P TT, NTBNP, HSTNT, CBCDIF, PT, CKCKMB, CMP #### [place] [phone] CK, Total and CKMBon 019 CK enzyme act/vol 29 U/L Low 30-220 [facility] Comment on above: Performed By: #### P TT, NTBNP, HSTNT, CBCDIF, PT, CKCKMB, CMP #### [phone] CK MB % CK MB % not reported with CK <100 U/L. Normal 0.0-4.0 [facility] Comment on above: Performed By: #### P TT, NTBNP, HSTNT, CBCDIF, PT, CKCKMB, CMP #### [place] [phone] MB 2.9 ng/mL Normal 0.0-8.8 [facility] Comment on above: Performed By: #### P TT, NTBNP, HSTNT, CBCDIF, PT, CKCKMB, CMP #### [address] CK enzyme act/vol 31 U/L Normal 30-220 [facility] Comment on above: Performed By: #### P TT, NTBNP, HSTNT, CBCDIF, PT, CKCKMB, CMP #### [place] [phone] CK MB % CK MB % not reported with CK <100 U/L. Normal 0.0-4.0 [facility] Comment on above: Performed By: #### P TT, NTBNP, HSTNT, CBCDIF, PT, CKCKMB, CMP #### [address] MB 3.1 ng/mL Normal 0.0-8.8 [facility] Comment on above: Performed By: #### P TT, NTBNP, HSTNT, CBCDIF, PT, CKCKMB, CMP #### [place] [id number] CK enzyme act/vol 30 U/L Normal 30-220 [facility] Comment on above: Performed By: #### P TT, NTBNP, HSTNT, CBCDIF, PT, CKCKMB, CMP #### [place] [phone] CK MB % CK MB % not reported with CK <100 U/L. Normal 0.0-4.0 [facility] Comment on above: Performed By: #### P TT, NTBNP, HSTNT, CBCDIF, PT, CKCKMB, CMP #### [place] [phone] MB 2.8 ng/mL Normal 0.0-8.8 [facility] Comment on above: Performed By: #### P TT, NTBNP, HSTNT, CBCDIF, PT, CKCKMB, CMP #### [place] [phone] CONSULTon 03-25-2018 CONSULT HNO ID: [id number] Author: Ken Edwards Service: Psychiatry Author Type: [...] Therapist: Previously followed by Melody Montero Current Leadership Coach: None Last Hospitalization: None Hx of Suicide Attempts: Never Previous Discontinued Psychiatric Med Trials: None PAST MEDICAL 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 - Aortic valve disorders - Cancer (HCC) - Coronary atherosclerosis of unspecified type of vessel, [place]am[place]of or graft Coronary Atherosclerosis - Diabetes (HCC) [...] SIGNATURE: Ken Edwards DO, PATIENT NAME: Sarina Loevtt DATE: March 25, 2018 TIME: 1:46 PM PAGER/CONTACT #: [facility] CONSULT HNO ID: [id number] Author: Joy Browne Service: Cardiovascular Medicine Author [...] RCA: No Stenosis, there is 99% in [place] after the graft SVG Graft 2 to [...] Coronary atherosclerosis of unspecified type of vessel, [place] or graft Coronary Atherosclerosis - Diabetes (HCC) [...] in this patient's care. SIGNATURE: Deanna Yoo APRN.[facility] cardiology DATE: March 25, 2018 TIME: 10:21 AM Normal [facility] Magnesiumon 03-25-2018 Magnesium mass conc 1.7 mg/dL Normal 1.7-2.6 [facility] Comment on above: Performed By: #### P TT, NTBNP, HSTNT, CBCDIF, PT, CKCKMB, CMP #### [place] [id number] [place] [address] NURSING PROGon 03-25-2018 Protein mass conc HNO ID: [id number] Author: Shira (Rn) ZAK Carrillo Service: Nursing Author Type: Registered Nurse Type: Nursing Progress Note Filed: 03/25/2018 6:11 PM Note Text: Nursing Progress Note Patient Name: Sarina Lovett Patient Location: [id number]/[facility]- 024* Daily Note: 0700 Report received [...] note was completed by: Shira Carrillo RN [facility] PROGRESSon 03-25-2018 Protein mass conc HNO ID: [id number] Author: Kinsey Dumas MD Service: Hospital Medicine [...] CC time 35 min Larisa Dougherty MD [facility] MEDICINE [facility] PROGRESS NOTE NAME: Sarina Lovett [...] home, last A1c 9.3% in 08/2016 at [facility]. - SSI1 - recheck A1c Hypomagnesemia 1.7 on admission. Continue to monitor. - replete PRN VTE Prophylaxis - on heparin drip Dispo - continue care in [facility] SUBJECTIVE INTERVAL HPI: Ms. Lovett feels better [...] Family Medicine PGY2 March 25, 2018 Normal [facility] PTT,Anticoag Therapyon 03-25 aPTT Coag time (Bld) 53.2 s High 23.0-32.4 [facility] Comment on above: Result Comment: Unfr [...] laboratory APTT reagent in use throughout the [facility]. Performed By: #### P TT, NTBNP, HSTNT, CBCDIF, PT, CKCKMB, CMP #### [facility] [address] [place] [address] aPTT Coag time (Bld) 54.3 s High 23.0-32.4 [facility] Comment on above: Result Comment: Unfr [...] laboratory APTT reagent in use throughout the [facility]. Performed By: #### P TT, NTBNP, HSTNT, CBCDIF, PT, CKCKMB, CMP #### [place] [phone] aPTT Coag time (Bld) 40.5 s High 23.0-32.4 [facility] Comment on above: Result Comment: Unfr [...] laboratory APTT reagent in use throughout the [facility]. Performed By: #### P TT, NTBNP, HSTNT, CBCDIF, PT, CKCKMB, CMP #### [place] [phone] Troponin Ton 03-25-2018 Troponin T.cardiac mass conc 0.055 ng/mL High 0.000-0.029 [facility] Comment on above: Result Comment: Urge nt value previously called 03/25/18 1108 [facility] Performed By: #### P TT, NTBNP, HSTNT, CBCDIF, PT, CKCKMB, CMP #### [place] [phone] Troponin T.cardiac mass conc 0.038 ng/mL High 0.000-0.029 [facility] Comment on above: Result Comment: Urge nt value previously called on 03/25/18 at [facility] Performed By: #### P TT, NTBNP, HSTNT, CBCDIF, PT, CKCKMB, CMP #### [address] [address] Troponin T.cardiac mass conc 0.032 ng/mL High 0.000-0.029 [facility] Comment on above: Result Comment: Call ed to and read back by: Precious Alvarez RN [facility] 03/25/2018 0055 by Matthew Patricio. Performed By: #### P TT, NTBNP, HSTNT, CBCDIF, PT, CKCKMB, CMP #### [place] [id number] XR CHEST 1V FRONTAL PORTon 0 03-25-2018 [...] IMPRESSION: Cardiomegaly. No acute process is seen Chef De Froid: JENNIFER Transcribe Date/Time: Mar 25 2018 8:26P Dictated by : CHASTITY SIMMONS MD This examination was interpreted and the report reviewed and electronically signed by: CHASTITY SIMMONS MD on Mar 25 2018 8:31PM EST [id number] Normal [facility] ALLIED HEALTHon 03-24-2018 ALLIED HEALTH HNO ID: [id number] Author: Amanda Morris (Rt) Service: Radiology Author Type: Radiology Scheduler Type: Allied Health Filed: 03/24/2018 6:16 PM [...] RT March 24, 2018 6:15 PM Normal [facility] APTTon 03-24-2018 aPTT Coag time (Bld) 26.0 s Normal 23.0-32.4 [facility] Comment on above: Result Comment: Unfr [...] laboratory APTT reagent in use throughout the [facility]. Performed By: #### P TT, NTBNP, HSTNT, CBCDIF, PT, CKCKMB, CMP #### [place] [phone] CBC and Differentialon 03-24 Abs Baso 0.05 k/uL Normal <0.11 [facility] Comment on above: Performed By: #### P TT, NTBNP, HSTNT, CBCDIF, PT, CKCKMB, CMP #### [place] [phone] Abs [place]age 0.47 k/uL Normal <0.87 [facility] Comment on above: Performed By: #### P TT, NTBNP, HSTNT, CBCDIF, PT, CKCKMB, CMP #### [place] [phone] Abs Neut 7.03 k/uL Normal 1.45-7.50 [facility] Comment on above: Performed By: #### P TT, NTBNP, HSTNT, CBCDIF, PT, CKCKMB, CMP #### [place] [phone] Basophils/100 WBC (Bld) 0.6 % Normal [facility] Comment on above: Performed By: #### P TT, NTBNP, HSTNT, CBCDIF, PT, CKCKMB, CMP #### [place] [address] DTYPE Auto Diff Normal [facility] Comment on above: Performed By: #### P TT, NTBNP, HSTNT, CBCDIF, PT, CKCKMB, CMP #### [place] [address] Eosinophils #/vol (Bld) 0.20 10*3/uL Normal <0.46 [facility] Comment on above: Performed By: #### P TT, NTBNP, HSTNT, CBCDIF, PT, CKCKMB, CMP #### [place] [address] Eosinophils/100 WBC (Bld) 2.3 % Normal [facility] Comment on above: Performed By: #### P TT, NTBNP, HSTNT, CBCDIF, PT, CKCKMB, CMP #### [place] [address] Erythrocyte distribution width Ratio (RBC) 13.4 % Normal 11.5-15.0 [facility] Comment on above: Performed By: #### P TT, NTBNP, HSTNT, CBCDIF, PT, CKCKMB, CMP #### [place] [address] Hematocrit Volume Fraction (Bld) 35.8 % Low 36.0-46.0 [facility] Comment on above: Performed By: #### P TT, NTBNP, HSTNT, CBCDIF, PT, CKCKMB, CMP #### [place] [address] Hemoglobin mass conc (Bld) 11.8 g/dL Normal 11.5-15.5 [facility] Comment on above: Performed By: #### P TT, NTBNP, HSTNT, CBCDIF, PT, CKCKMB, CMP #### [place] [address] Lymphocytes #/vol (Bld) 1.10 10*3/uL Normal 1.00-4.00 [facility] Comment on above: Performed By: #### P TT, NTBNP, HSTNT, CBCDIF, PT, CKCKMB, CMP #### [place] [address] Lymphocytes/100 WBC (Bld) 12.4 % Normal [facility] Comment on above: Performed By: #### P TT, NTBNP, HSTNT, CBCDIF, PT, CKCKMB, CMP #### [place] [address] MCH Entitic mass (RBC) 28.8 pG Normal 26.0-34.0 [facility] Comment on above: Performed By: #### P TT, NTBNP, HSTNT, CBCDIF, PT, CKCKMB, CMP #### [place] [address] MCHC mass conc (RBC) 33.0 g/dL Normal 30.5-36.0 [facility] Comment on above: Performed By: #### P TT, NTBNP, HSTNT, CBCDIF, PT, CKCKMB, CMP #### [place] [address] MCV Entitic volume (RBC) 87.3 fL Normal 80.0-100.0 [facility] Comment on above: Performed By: #### P TT, NTBNP, HSTNT, CBCDIF, PT, CKCKMB, CMP #### [place] [address] Monocytes/100 WBC (Bld) 5.3 % Normal [facility] Comment on above: Performed By: #### P TT, NTBNP, HSTNT, CBCDIF, PT, CKCKMB, CMP #### [place] [phone] Neutrophils/100 WBC (Bld) 79.4 % Normal [facility] Comment on above: Performed By: #### P TT, NTBNP, HSTNT, CBCDIF, PT, CKCKMB, CMP #### [place] [phone] Platelet mean volume Entitic volume (Bld) 10.1 fL Normal 9.0-12.7 [facility] Comment on above: Performed By: #### P TT, NTBNP, HSTNT, CBCDIF, PT, CKCKMB, CMP #### [place] [phone] Platelets #/vol (Bld) 210 10*3/uL Normal 150-400 [facility] Comment on above: Performed By: #### P TT, NTBNP, HSTNT, CBCDIF, PT, CKCKMB, CMP #### [place] [phone] RBC #/vol (Bld) 4.10 10*6/uL Normal 3.90-5.20 [facility] Comment on above: Performed By: #### P TT, NTBNP, HSTNT, CBCDIF, PT, CKCKMB, CMP #### [place] [phone] WBC #/vol (Bld) 8.85 10*3/uL Normal 3.70-11.00 [facility] Comment on above: Performed By: #### P TT, NTBNP, HSTNT, CBCDIF, PT, CKCKMB, CMP #### [place] [phone] CK, Total and CKMBon 019 CK enzyme act/vol 29 U/L Low 30-220 [facility] Comment on above: Performed By: #### P TT, NTBNP, HSTNT, CBCDIF, PT, CKCKMB, CMP #### [place] [phone] CK MB % CK MB % not reported with CK <100 U/L. Normal 0.0-4.0 [facility] Comment on above: Performed By: #### P TT, NTBNP, HSTNT, CBCDIF, PT, CKCKMB, CMP #### [place] [address] MB 2.4 ng/mL Normal 0.0-8.8 [facility] Comment on above: Performed By: #### P TT, NTBNP, HSTNT, CBCDIF, PT, CKCKMB, CMP #### [place] [address] Comp Metabolic Panelon 03-24 Albumin mass conc 4.6 g/dL Normal 3.5-5.0 [facility] Comment on above: Performed By: #### P TT, NTBNP, HSTNT, CBCDIF, PT, CKCKMB, CMP #### [place] [phone] ALP enzyme act/vol 113 U/L Normal 34-123 [facility] Comment on above: Performed By: #### P TT, NTBNP, HSTNT, CBCDIF, PT, CKCKMB, CMP #### [place] [address] ALT enzyme act/vol 7 U/L Normal 0-45 [facility] Comment on above: Performed By: #### P TT, NTBNP, HSTNT, CBCDIF, PT, CKCKMB, CMP #### [place] [address] Anion gap molar conc 14 mmol/L Normal 9-18 [facility] Comment on above: Performed By: #### P TT, NTBNP, HSTNT, CBCDIF, PT, CKCKMB, CMP #### [place] [address] AST enzyme act/vol 10 U/L Normal 7-40 [facility] Comment on above: Performed By: #### P TT, NTBNP, HSTNT, CBCDIF, PT, CKCKMB, CMP #### [place] [phone] Bilirubin mass conc 0.2 mg/dL Normal 0.2-1.3 [facility] Comment on above: Performed By: #### P TT, NTBNP, HSTNT, CBCDIF, PT, CKCKMB, CMP #### [place] [phone] Calcium mass conc 9.8 mg/dL Normal 8.5-10.5 [facility] Comment on above: Performed By: #### P TT, NTBNP, HSTNT, CBCDIF, PT, CKCKMB, CMP #### [place] [id number] Chloride molar conc 101 mmol/L Normal 98-110 [facility] Comment on above: Performed By: #### P TT, NTBNP, HSTNT, CBCDIF, PT, CKCKMB, CMP #### [place] [address] CO2 molar conc 22 mmol/L Low 23-32 [facility] Comment on above: Performed By: #### P TT, NTBNP, HSTNT, CBCDIF, PT, CKCKMB, CMP #### [place] [id number] Creatinine mass conc 1.50 mg/dL High 0.70-1.40 [facility] Comment on above: Performed By: #### P TT, NTBNP, HSTNT, CBCDIF, PT, CKCKMB, CMP #### [place] [address] eGFR- Amer. 41 Low >60 [facility] Comment on above: Performed By: #### P TT, NTBNP, HSTNT, CBCDIF, PT, CKCKMB, CMP #### [place] [phone] GFR/1.73 sq M predicted among non-blacks MDRD vol rate/area (S/P/Bld) 34 . Low >60 [facility] Comment on above: Performed By: #### P TT, NTBNP, HSTNT, CBCDIF, PT, CKCKMB, CMP #### [place] [phone] Glucose mass conc 243 mg/dL High 65-100 [facility] Comment on above: Performed By: #### P TT, NTBNP, HSTNT, CBCDIF, PT, CKCKMB, CMP #### [phone] Potassium molar conc 5.8 mmol/L High 3.5-5.0 [facility] Comment on above: Performed By: #### P TT, NTBNP, HSTNT, CBCDIF, PT, CKCKMB, CMP #### [place] [phone] Protein mass conc 8.0 g/dL Normal 6.0-8.4 [facility] Comment on above: Performed By: #### P TT, NTBNP, HSTNT, CBCDIF, PT, CKCKMB, CMP #### [place] [phone] Sodium molar conc 137 mmol/L Normal 132-148 [facility] Comment on above: Performed By: #### P TT, NTBNP, HSTNT, CBCDIF, PT, CKCKMB, CMP #### [phone] Urea nitrogen mass conc 34 mg/dL High 8-25 [facility] Comment on above: Performed By: #### P TT, NTBNP, HSTNT, CBCDIF, PT, CKCKMB, CMP #### [place] [phone] ED NOTEon 03-24-2018 ED NOTE HNO ID: [id number] Author: Monica (Rn) ZAK Thurman Service: Nursing Author Type: Registered Nurse Type: ED Notes Filed: 03/24/2018 6:53 PM Note Text: Repeat troponin drawn and sent to lab. [facility] ED NOTE HNO ID: [id number] Author: Monica CabreraRn) ZAK Thurman Service: Nursing Author Type: Registered Nurse Type: ED Notes Filed: 03/24/2018 6:46 PM Note Text: Report given to Vanessa LEWIS on [facility]. Bed is ready. Transport notified. [facility] ED NOTE HNO ID: [id number] Author: Ken CabreraRn) ZAK Mackenzie Service: (none) Author Type: Registered Nurse Type: ED Notes Filed: 03/24/2018 5:12 PM Note Text: Bed: 25-ED Expected date: Expected time: Means of arrival: Comments: CP/SOB [facility] ED PROV NOTEon 03-24-2018 Protein mass conc HNO ID: [id number] Author: Easton Ty MD Service: Emergency Medicine [...] feels similar to when she had her RI in the past. No leg pain or [...] Coronary atherosclerosis of unspecified type of vessel, [place] or graft Coronary Atherosclerosis - Diabetes (HCC) [...] Final Result IMPRESSION: Mild bilateral basal atelectasis. Chef De Froid: JENNIFER Transcribe Date/Time: Mar 24 2018 6:48P [...] pectoris (HCC) Atherosclerosis of coronary artery of [place] heart with unstable angina pectoris, unspecified vessel [...] at this time and recommends admission to [facility] and treat as NSTEMI with heparin. Pt started on heparin in the ED. Concern for NSTEMI/ACS at this time. No concern for PE, aneurysm, or dissection at this time. Chest pain improved with nitroglycerin, currently 05/07. Case was discussed with [facility] hospitalist and patient will be admitted to [facility]. Pt remained stable during ED visit and stable at the time of admission. The patient was ADMITTED TO: [facility]. Condition at time of disposition: [...] of the patient and have reviewed the PA/STUDIO MUSICIAN note. My olivera findings include: History is a 73-year-old female presents with chest pain that began earlier today. Her symptoms are concerning for unstable angina. Initial EKG was largely unchanged from her EKG. There was some concerning ST segment depressions in leads 1 and aVL. EKGs are shared with scrap iron cutter interventionalist, Dr Browne, who agrees symptoms and EKGs are concerning for unstable angina. He does not recommend emergent catheterization at this time. [facility] Heparin drip will be started. Nitroglycerin drip was also started. Assessment/Plan are admission to [facility]. Other additions or changes: None Signature: Easton Ty MD Date: 03/26/2018 Time: 8:25 AM Easton Ty MD 03/26/18 0834 [facility] HISTORY PHYSICALon HISTORY PHYSICAL HNO ID: [id number] Author: Chiara Latham Service: Hospital Medicine Author Type: Physician Type: HANDP Filed: 03/24/2018 9:38 PM Note Text: SERVICE DATE: 03/24/2018 SERVICE TIME: 9:30 PM DEPARTMENT OF HOSPITAL MEDICINE HISTORY AND PHYSICAL EXAM Primary Care Physician: Sacha Ford MD Primary Nutrition Faculty Member: Dr Doris Browne PATIENT NAME: Sarina Lovett PATIENT LOCATION: [place] [address]/[place] [address]* NIGHT AND WEEKEND COVERAGE: Tonight: [phone], please page me at [phone]. Patient will be assigned at 0730 to [...] states this feels similar to her prior RI. She denies history of DVT/PE. She is currently being treated for NSTEMI. In the ED, she was found to be hypertensive with BP 190/65, pulse 70. CBC with WBC8.85 Hgb11.8 (slightly above BL of 9.8) [id number]. INR 1.0. Chem with hyperkalemia of 5.8, [...] Coronary atherosclerosis of unspecified type of vessel, [place] or graft Coronary Atherosclerosis - Diabetes (HCC) [...] Assessment: SBP 240s/80s on arrival to [facility]. With Chest pain and ?JULIETA. PLAN: -On [...] 03/24/182044 vte non-pharmacologic prophylaxis - none indicated ([place],oh) 03/24/182044 activity - mobilize patient (la,dc) VTE Prophylaxis: VTE prophylaxis appropriate SIGNATURE: Chiara Latham MD PATIENT NAME: Sarina Lovett DATE: March 24, 2018 TIME: 9:30 PM PAGER/CONTACT #: [phone] [facility] HOSPon 03-24-2018 HOSP Patient:Sarina Lovett MRN: [...] feels similar to when she had her RI in the past. No leg pain or [...] Coronary atherosclerosis of unspecified type of vessel, [place] or graft Coronary Atherosclerosis - Diabetes (HCC) [...] Final Result IMPRESSION: Mild bilateral basal atelectasis. Chef De Froid: JENNIFER Transcribe Date/Time: Mar 24 2018 6:48P [...] pectoris (HCC) Atherosclerosis of coronary artery of [place] heart with unstable angina pectoris, unspecified vessel [...] at this time and recommends admission to [facility] and treat as NSTEMI with heparin. Pt started on heparin in the ED. Concern for NSTEMI/ACS at this time. No concern for PE, aneurysm, or dissection at this time. Chest pain improved with nitroglycerin, currently 05/07. Case was discussed with [facility] hospitalist and patient will be admitted to [facility]. Pt remained stable during ED visit and stable at the time of admission. The patient was ADMITTED TO: [facility]. Condition at time of disposition: [...] discussed the plan of care with the PA/STUDIO MUSICIAN and agree with the findings documented. Critical care time excludes separately billed procedures. Easton Ty MD Attending Note I have personally performed a face to face assessment of the patient and have reviewed the PA/STUDIO MUSICIAN note. My olivera findings include: History is a 73-year-old female presents with chest pain that began earlier today. Her symptoms are concerning for unstable angina. Initial EKG was largely unchanged from her EKG. There was some concerning ST segment depressions in leads 1 and aVL. EKGs are shared with scrap iron cutter interventionalist, Dr Browne, who agrees symptoms and EKGs are concerning for unstable angina. He does not recommend emergent catheterization at this time. [facility] Heparin drip will be started. Nitroglycerin drip was also started. Assessment/Plan are admission to [facility]. Other additions or changes: None [...] Report given to Vanessa LEWIS on [facility]. Bed is ready. Transport notified. Monica Thurman [...] states this feels similar to her prior RI. She denies history of DVT/PE. She is [...] Assessment: SBP 240s/80s on arrival to [facility]. With Chest pain and ?JULIETA. PLAN: -On [...] Primary Care Physician: Sacha Ford MD Primary Nutrition Faculty Member: Dr Doris Browne PATIENT NAME: Sarina Lovett PATIENT LOCATION: [id number]/[facility]- 024* NIGHT AND WEEKEND COVERAGE: Tonight: [phone], please page me at [phone]. Patient will be assigned at 0730 to [...] states this feels similar to her prior RI. She denies history of DVT/PE. She is currently being treated for NSTEMI. In the ED, she was found to be hypertensive with BP 190/65, pulse 70. CBC with WBC8.85 Hgb11.8 (slightly above BL of 9.8) [id number]. INR 1.0. Chem with hyperkalemia of 5.8, [...] Coronary atherosclerosis of unspecified type of vessel, [place] or graft Coronary Atherosclerosis - Diabetes (HCC) [...] Primary Care Physician: Sacha Ford MD Primary Nutrition Faculty Member: Dr Doris Browne PATIENT NAME: Sarina Lovett PATIENT LOCATION: [place] [address]/[address] NIGHT AND WEEKEND COVERAGE: Tonight: [phone], please page me at [phone]. Patient will be assigned at 0730 to [...] states this feels similar to her prior RI. She denies history of DVT/PE. She is currently being treated for NSTEMI. In the ED, she was found to be hypertensive with BP 190/65, pulse 70. CBC with WBC8.85 Hgb11.8 (slightly above BL of 9.8) [id number]. INR 1.0. Chem with hyperkalemia of 5.8, [...] Coronary atherosclerosis of unspecified type of vessel, [place] or graft Coronary Atherosclerosis - Diabetes (HCC) [...] Assessment: SBP 240s/80s on arrival to [facility]. With Chest pain and ?JULIETA. PLAN: -On [...] 03/24/182044 vte non-pharmacologic prophylaxis - none indicated (la,dc) 03/24/182044 activity - mobilize patient ([place]) VTE Prophylaxis: VTE prophylaxis appropriate SIGNATURE: Chiara Latham MD PATIENT NAME: Sarina Lovett DATE: March 24, 2018 TIME: 9:30 PM PAGER/CONTACT #: [phone] Previous Version Shira Carrillo RN, RN 03/25/2018 6:11 PM Addendum Nursing Progress Note Patient Name: Sarina Lovett Patient Location: [place] [address]/[place] [address]* Daily Note: 0700 Report received from off-going [...] RCA: No Stenosis, there is 99% in [place] after the graft SVG Graft 2 to [...] Coronary atherosclerosis of unspecified type of vessel, [place] or graft Coronary Atherosclerosis - Diabetes (HCC) [...] in this patient's care. SIGNATURE: Deanna Yoo APRN.[facility] cardiology DATE: March 25, 2018 TIME: [...] CC time 35 min Larisa Dougherty MD [facility] MEDICINE [facility] PROGRESS NOTE NAME: Sarian Lovett SERVICE DATE: 03/25/2018 SERVICE TIME: 10:55 AM ASSESSMENT AND PLAN aSrina Lovett is a 73 year old female [...] home, last A1c 9.3% in 08/2016 at [facility]. - SSI1 - recheck A1c Hypomagnesemia 1.7 on admission. Continue to monitor. - replete PRN VTE Prophylaxis - on heparin drip Dispo - continue care in [facility] SUBJECTIVE INTERVAL HPI: Ms. Lovett feels better [...] dose Reason for Consult: Depression. Identifying Information: Sairna Lovett is a 73 year old retired [...] Therapist: Previously followed by Melody Montero Current Leadership Coach: None Last Hospitalization: None Hx of Suicide Attempts: Never Previous Discontinued Psychiatric Med Trials: None PAST MEDICAL 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 - Aortic valve disorders - Cancer (HCC) - Coronary atherosclerosis of unspecified type of vessel, [place] or graft Coronary Atherosclerosis - Diabetes (HCC) [...] Note Patient Name: Sarina Lovett Patient Location: [place] [address]/[place] [address]* Daily Note: 0730 Bedside report received from [...] MD 03/26/2018 10:17 AM Signed Dictation number: [id number] JULIETA on CKD 3 Check spot protein/Cr [...] MD 03/26/2018 11:06 AM Signed DEPARTMENT OF [facility] MEDICINE PROGRESS NOTE Name: Sarina Lovett SERVICE [...] Patient and RN SIGNATURE: Larisa Dougherty MD [facility] High Sens Troponin Ton 03-24 High Sensitivity ANGE 30 ng/L High <12 [facility] Comment on above: Result Comment: When [...] NTBNP, HSTNT, CBCDIF, PT, CKCKMB, CMP #### [place] [id number] High Sensitivity ANGE 31 ng/L High <12 [facility] Comment on above: Result Comment: When [...] NTBNP, HSTNT, CBCDIF, PT, CKCKMB, CMP #### [place] [address] Magnesiumon 03-24-2018 Magnesium mass conc 1.7 mg/dL Normal 1.7-2.6 [facility] Comment on above: Performed By: #### P TT, NTBNP, HSTNT, CBCDIF, PT, CKCKMB, CMP #### [place] [phone] NT Pro BNPon 03-24-2018 Protein mass conc 9108 pg/mL High <125 [facility] Comment on above: Performed By: #### P TT, NTBNP, HSTNT, CBCDIF, PT, CKCKMB, CMP #### [place] [phone] Protimeon 03-24-2018 Prothrombin time (PT) Coag time (PPP) 1.0 s Normal 0.9-1.3 [facility] Comment on above: Result Comment: Rachel min K Antagonist (VKA) Therapeutic Range: INR 2 to 3 (Target INR of 2.5) Note: For patients treated with VKA drugs, such as warfarin, the [place] [employer] 2012 Guideline recommends [...] Chest 2012, 141:7S-47S Roger RA, et al. [facility] 2017, 70: 252-289 Performed By: #### P TT, NTBNP, HSTNT, CBCDIF, PT, CKCKMB, CMP #### [place] [address] Prothrombin time (PT) Coag time (PPP) 10.4 s Normal 9.7-13.0 [facility] Comment on above: Performed By: #### P TT, NTBNP, HSTNT, CBCDIF, PT, CKCKMB, CMP #### [place] [address] Troponin Ton 03-24-2018 Troponin T.cardiac mass conc 0.025 ng/mL Normal 0.000-0.029 [facility] Comment on above: Performed By: #### P TT, NTBNP, HSTNT, CBCDIF, PT, CKCKMB, CMP #### [place] [address] Urinalysis with Microscopico n 03-24-2018 Bacteria LM.HPF #/area (Urine sed) Rare Critically abnormal Negative [facility] Comment on above: Performed By: #### P TT, NTBNP, HSTNT, CBCDIF, PT, CKCKMB, CMP #### [place] [address] Bilirubin, Urine Negative Normal Negative [facility] Comment on above: Performed By: #### P TT, NTBNP, HSTNT, CBCDIF, PT, CKCKMB, CMP #### [place] [address] Clarity Nom (U) Clear Normal Clear [facility] Comment on above: Performed By: #### P TT, NTBNP, HSTNT, CBCDIF, PT, CKCKMB, CMP #### [place] [phone] Color Nom (U) Yellow Normal Yellow [facility] Comment on above: Performed By: #### P TT, NTBNP, HSTNT, CBCDIF, PT, CKCKMB, CMP #### [place] [phone] Comments SEE COMMENT Normal [facility] Comment on above: Result Comment: Micr oscopic Examination Performed Performed By: #### P TT, NTBNP, HSTNT, CBCDIF, PT, CKCKMB, CMP #### [place] [address] Epithelial cells LM.HPF #/area (Urine sed) SEE COMMENT Critically abnormal Negative [facility] Comment on above: Result Comment: Rare Squamous Epithelial Cells Performed By: #### P TT, NTBNP, HSTNT, CBCDIF, PT, CKCKMB, CMP #### [place] [address] Glucose Ql (U) Negative Normal [facility] Comment on above: Performed By: #### P TT, NTBNP, HSTNT, CBCDIF, PT, CKCKMB, CMP #### [place] [address] Hemoglobin/Blood,Ur Small Critically abnormal [facility] Comment on above: Performed By: #### P TT, NTBNP, HSTNT, CBCDIF, PT, CKCKMB, CMP #### [place] [address] Ketones Ql (U) Negative Normal [facility] Comment on above: Performed By: #### P TT, NTBNP, HSTNT, CBCDIF, PT, CKCKMB, CMP #### [place] [address] Leukest Moderate Critically abnormal [facility] Comment on above: Performed By: #### P TT, NTBNP, HSTNT, CBCDIF, PT, CKCKMB, CMP #### [place] [address] Nitrite Ql (U) Negative Normal [facility] Comment on above: Performed By: #### P TT, NTBNP, HSTNT, CBCDIF, PT, CKCKMB, CMP #### [place] [address] pH (Bld) 5.0 Normal 5.0-8.0 [facility] Comment on above: Performed By: #### P TT, NTBNP, HSTNT, CBCDIF, PT, CKCKMB, CMP #### [place] [phone] Protein mass conc (U) 30 mg/dL Critically abnormal Negative [facility] Comment on above: Performed By: #### P TT, NTBNP, HSTNT, CBCDIF, PT, CKCKMB, CMP #### [place] [phone] RBC #/vol (U) Rare Critically abnormal Negative [facility] Comment on above: Performed By: #### P TT, NTBNP, HSTNT, CBCDIF, PT, CKCKMB, CMP #### [address] Specific [place], Ur 1.015 Normal 1.005-1.030 [facility] Comment on above: Performed By: #### P TT, NTBNP, HSTNT, CBCDIF, PT, CKCKMB, CMP #### [place] [phone] Urobilinogen Qn (U) <2.0 Normal <2.0 [facility] Comment on above: Performed By: #### P TT, NTBNP, HSTNT, CBCDIF, PT, CKCKMB, CMP #### [place] [phone] WBC #/vol (Bld) 0-5 Critically abnormal Negative [facility] Comment on above: Performed By: #### P TT, NTBNP, HSTNT, CBCDIF, PT, CKCKMB, CMP #### [place] [phone] XR CHEST 1V FRONTAL PORTon 0 03-24-2018 [...] 4. Other: IMPRESSION: Mild bilateral basal atelectasis. Chef De Froid: PSCB Transcribe Date/Time: Mar 24 2018 6:48P Dictated by : ELEONORA HIGGINS MD This examination was interpreted and the report reviewed and electronically signed by: ELEONORA HIGGINS MD on Mar 24 2018 6:49PM EST [id number] N [facility] Vital Signs Date Time Vital Sign Value Performing Clinician Faci lity 04-11-2023 14:27-0500 Body height 165.1 cm Shaikh Shira DE LEÓN Work Phone: [facility] 04-11-2023 14:27-0500 Body mass index (BMI) [Ratio] 29.62 kg/m2 Shaikh Shira DE LEÓN Work Phone: [facility] 04-11-2023 14:27-0500 Body temperature 97.5 [degF] Shaikh Shira DE LEÓN Work Phone: [facility] 04-11-2023 14:27-0500 Body weight 80.74 kg Shaikh Shira DE LEÓN Work Phone: [facility] 04-11-2023 14:27-0500 Diastolic blood pressure 86 mm[Hg] Shaikh Shira DE LEÓN Work Phone: [facility] 04-11-2023 14:27-0500 Heart rate 85 /min Shaikh Shira DE LEÓN Work Phone: [facility] 04-11-2023 14:27-0500 SaO2% (BldA) [Mass fraction] 95 % Shaikh Shira DE LEÓN Work Phone: [facility] 04-11-2023 14:27-0500 Systolic blood pressure 122 mm[Hg] Shaikh Shira DE LEÓN Work Phone: [facility] 01-27-2023 12:57-0500 Diastolic blood pressure 82 mm[Hg] Prince Christofferson [facility] 01-27-2023 12:57-0500 Heart rate 82 /min Prince Christofferson [facility] 01-27-2023 12:57-0500 SaO2% (BldA) [Mass fraction] 98 % Prince Christofferson [facility] 01-27-2023 12:57-0500 Systolic blood pressure 134 mm[Hg] Prince Christofferson [facility] 12-16-2022 13:00-0400 Diastolic blood pressure 86 mm[Hg] Prince Christofferson [facility] 12-16-2022 13:00-0400 Heart rate 76 /min Prince Christofferson [facility] 12-16-2022 13:00-0400 SaO2% (BldA) [Mass fraction] 92 % Prince Ankushofferson [facility] 12-16-2022 13:00-0400 Systolic blood pressure 140 mm[Hg] Prince Christofferson [facility] 06-14-2022 11:30-0400 Body height 162.56 cm Trevor Guevara Other [facility] Other 06-14-2022 11:30-0400 Body mass index (BMI) [Ratio] 30.38 kg/m2 Trevor Guevara Other [facility] Other 06-14-2022 11:30-0400 Body weight 80.29 kg Trevor Guevara Other [facility] Other 06-14-2022 11:30-0400 Diastolic blood pressure 100 mm[Hg] Trevor Paola Other [facility] Other 06-14-2022 11:30-0400 SaO2% (BldA) [Mass fraction] 97 % Trevor Paola Other [facility] Other 06-14-2022 11:30-0400 Systolic blood pressure 152 mm[Hg] Trevor Paola Other [facility] Other Encounters Encounter Date Encounter Type Care [...] Other hyperlipidemia (CMS/HCC); 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 (CMS/HCC); Primary hypertension (CMS/HCC); Right flank pain; Acute right flank pain Start: 03-20-2023 Letter encounter Sacha norton MD Work Phone: [facility] Start: 03-14-2023 End: 03-14-2023 ambulatory SHAIKH SHIRA Not Available Start: 02-09-2023 End: 02-09-2023 ambulatory LETHA GÓMEZ Not Available Start: 01-27-2023 End: 01-28-2023 ambulatory Prince Garyavalerie Facility:[facility] Start: 01-27-2023 End: 01-27-2023 Patient encounter procedure Prince Cabello [facility] Start: 01-05-2023 End: 01-06-2023 ambulatory Prince Cabello Facility:[facility] Start: 01-05-2023 End: 01-05-2023 Patient encounter procedure Prince Garayvalerie [facility] Start: 12-20-2022 ambulatory Prince Cabello [facility] Start: 12-16-2022 End: 12-17-2022 ambulatory Prince Cabello Facility:[facility] Start: 12-16-2022 End: 12-16-2022 Patient encounter procedure Prince Garayvalerie [facility] Start: 12-11-2022 Letter encounter Sacha norton [facility] Start: 09-22-2022 ambulatory Prince Cabello Fac ility:[facility] Start: 09-20-2022 End: 09-21-2022 ambulatory Augie MCDOWELL Facility:CD:[id number] Start: 09-12-2022 Letter encounter Sacha norton MD Work Phone: [facility] Start: 06-14-2022 End: 06-14-2022 ambulatory Trevor Guevara Other [facility] Other Start: 06-14-2022 Office outpatient vi sit 15 minutes Trevor Guevara [facility] Start: 03-30-2022 End: 03-31-[address] TREVOR GUEVARA Facility:[facility] Start: 03-14-2022 Letter encounter Sacha norton MD [facility] Start: 02-12-2022 End: 02-13-[address] TREVOR GUEVARA Facility: Start: 01-20-2022 End: 01-21-[address] TREVOR GUEVARA Facility:[facility] Start: 12-20-2021 Letter encounter Sacha norton MD Work Phone: [facility] Start: 09-19-2021 Letter encounter Sacha norton MD [facility] Start: 06-29-2018 End: 07-07-2018 Evaluation and management of inpatient [facility] Start: 06-06-2018 End: 06-06-2018 Emergency department patient visit [facility] Start: 05-02-2018 End: 05-02-2018 Patient encounter procedure E DORIS BROWNE [facility] Start: 03-24-2018 End: 04-08-2018 Evaluation and management of inpatient [facility] Start: 01-20-2018 End: 01-20-2018 ambulatory UNKNOWN PROVIDER Facility:[facility] Start: 05-02-2014 Preprocedural examination done Sacha Schroeder MD Work Phone: [facility] Work Phone: Procedures Date Procedure Procedure Detail Performing Clinician Start: 04-11-2023 TBH UA (CLEAN/CATCH) MICROSCOPIC IF INDICATE Shaikh Shira DE LEÓN Work Phone: Start: 04-03-2018 Antibody screen ANDREE PETERS Comment on above: Performed By: #### PTT, NTBNP, HSTNT, CB CDIF, PT, CKCKMB, CMP #### [place] [phone] Start: 03-27-2018 Electrocardiogram ANDREE PETERS Start: 03-27-2018 Electrocardiogram ANDREE PETERS Start: 03-27-2018 Electrocardiogram ANDREE PETERS Start: 03-26-2018 Electrocardiogram ANDREE PETERS Start: 03-26-2018 Electrocardiogram ANDREE PETERS Start: 03-26-2018 Antibody screen ANDREE PETERS Comment on above: Performed By: #### PTT, NTBNP, HSTNT, CB CDIF, PT, CKCKMB, CMP #### [place] [id number] [place] [id number] Start: 03-25-2018 Electrocardiogram ANDREE PETERS Start: 03-25-2018 [...] Office Visit [facility] [address] [facility] [address] [place] [address] Letha Gómez MD [address] [address] [facility] Start: 06-20-2023 End: 06-20-2023 Patient encounter procedure 06/20/2023 1:00 PM EDT Office Visit [facility] [address] [place] [address] Shaikh Silva MD [address] [place] [address] [facility] Start: 04-11-2023 End: 04-11-2024 CBC W Auto Differential panel - Blood CBC and differential Lab Routine 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 (CMS/HCC) Primary hypertension (CMS/HCC) Expected: 04/11/2023 (Approximate), Expires: 04/11/2024 [facility] Work Phone: Comment on above: Expected: 04/11/2023 (Approximate), Expires: 04/11/2024 Start: 04-11-2023 End: 04-11-2024 Comprehensive metabolic 2000 panel - Serum or Plasma Comprehensive metabolic panel Lab Routine 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 (CMS/HCC) Primary hypertension (CMS/HCC) Expected: 04/11/2023 (Approximate), Expires: 04/11/2024 [facility] Comment on above: Expected: 04/11/2023 (Approximate), Expires: 04/11/2024 Start: 04-11-2023 End: 04-11-2024 CT Abdomen and Pelvis WO contrast CT abdomen pelvis wo IV contrast Imaging Routine Right flank pain Expected: 04/11/2023, Expires: 04/11/2024 [facility] Comment on above: Expected: 04/11/2023 , Expires: 04/11/2024 Start: 04-11-2023 End: 04-11-2024 Lipid 1996 panel - Serum or Plasma Lipid panel Lab Routine Other hyperlipidemia (CMS/HCC) Expected: 04/11/2023 (Approximate), Expires: 04/11/2024 [facility] Comment on above: Expected: 04/11/2023 (Approximate), Expires: 04/11/2024 Start: 04-11-2023 End: 04-11-2024 TSH W/REFLEX TO FT4 TSH W/REFLEX TO FT4 Lab Routine Other specified hypothyroidism (CMS/HCC) Expected: 04/11/2023 (Approximate), Expires: 04/11/2024 [facility] Comment on above: Expected: 04/11/2023 (Approximate), Expires: 04/11/2024 Start: 04-11-2023 End: 04-11-2024 Urinalysis complete panel - Urine Urinalysis with reflex microscopic (clean catch) Lab Routine Right flank pain Expected: 04/11/2023 (Approximate), Expires: 04/11/2024 [facility] Comment on above: Expected: 04/11/2023 (Approximate), Expires: [...] Pneumococcal Vaccine: 65+ Years (2 - PCV) [facility] Start: 02-28-2013 Annual wellness visit Annual [facility] ([id number]) [facility] Start: 2007 RSV vaccine [...] Annual Wellness (AWV) Medicare Annual Wellness (AWV) [facility] Immunizations Immunization Date Immunization Notes Care Provider [facility] 01-20-2018 Seasonal trivalent influenza vaccine, adjuvanted, preservative free Sacha Schroeder MD Work Phone: [facility] 01-20-2018 influenza virus vaccine, unspecified formulation Sacha Schroeder MD Work Phone: [facility] 04-28-2017 pneumococcal polysaccharide vaccine, 23 valent Sacha Schroeder MD Work Phone: [facility] 12-14-2016 influenza virus vaccine, unspecified formulation Shaikh Shira DE LEÓN Work Phone: [facility] 12-13-2016 pneumococcal polysaccharide vaccine, 23 valent Shaikh Shira DE LEÓN Work Phone: [facility] 02-02-2016 influenza, seasonal, injectable, preservative free Sacha Schroeder MD Work Phone: [facility] 09-29-2015 pneumococcal conjuga te vaccine, 13 valent Sacha Schroeder MD Work Phone: [facility] 08-23-2015 tetanus toxoid, redu anh diphtheria toxoid, and acellular pertussis vaccine, adsorbed Sacha Schroeder MD Work Phone: [facility] Work Phone: 12-05-2013 influenza virus vaccine, unspecified formulation Sacha Schroeder MD Work Phone: [facility] 11-10-2010 pneumococcal polysaccharide vaccine, 23 valent Shaikh Shira DE LEÓN Work Phone: [facility] Payers Date Payer Category Payer Unknown [id number] 2014 Medicare [id number] 2014 Medicare ANTHEM - MEDICAR E ANTHEM MEDICARE [id number] 2014-Present [address] [place] [address] Medicare HMO [id number] 1959 Self-pay [id number] 1959 Unknown [id number] 1947 Unknown [id number] 1947 Unknown [id number] 1947 Unknown [id number] [id number] 1947 Unknown [id number] [id number] 1947 Unknown [id number] [id number] 1947 Unknown [id number] [id number] 1947 Unknown [id number] [id number] 1947 Unknown [id number] [id number] 1947 Unknown [id number] [id number] 1947 Unknown [id number] [id number] 1947 Unknown [id number] [id number] 1947 Unknown [id number] Unknown [id number] Social History Date Type Detail Facility Start: 07-09-2015 End: 03-14-2023 Tobacco smoking status ARIS Ex-smoker [facility] Start: 07-18-1960 End: 07-18-2013 History of tobacco use Current smoker [facility] Start: 07-18-1960 End: 07-18-2013 History of tobacco use Cigarette Smoker [facility] Start: 07-09-2015 End: 04-11-2023 Cigarettes smoked current (pack per day) - Reported 1 [facility] Start: 07-09-2015 End: 03-14-2023 Tobacco use and exposure Smokeless tobacco non-user [facility] Start: 01-20-2018 Alcohol intake Current non-dr body bumper of alcohol (finding) [facility] Start: 02-21-2014 Tobacco Comment quite july 18, 2013 [facility] Start: 1945 Sex Assigned At Not on file [facility] Start: 02-08-2023 End: 04-11-2023 Sex Assigned At [facility] History of tobacco use Passive smoker [facility] [...] Chamber 20.0 Intraocular Sa60at Sa60at 20.0 - [id number] 92843_[facility] Start: 02-19-2016 Lens Posterior Chamber 20.0 Intraocular Sa60at Sa60at 20.0 - [id number] 93739_[facility] Start: 03-03-2016 Goals Date Patient Goal Desired [...] Assessment Result Facility 01-27-2023 Functional Status No [facility] 12-16-2022 Functional Status No [facility] Clinical Notes 06-14-2022 to 04-11-2023 Shaikh [...] contrast. 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 Relevant Orders TSH W/REFLEX TO FT4 Other hyperlipidemia ([facility]) On simvastatin. 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 Asymptomatic. Follows [...] months (around 06/10/2023). documented in this encounter [facility] 01-05-2023 Note Echocardiology Procedure Exam Date/Time Accession # Ordering Dr. Amaro Transthoracic 01/05/2023 10:17 EST [id number] Destiney DE LEÓN, Prince Castro CPT code [id number] Reason for Exam (Echo Transthoracic Complete) I25.10;CAD Coronary artery disease Report [facility] [address] [place] [address] Adult Echocardiogram Report Name: SARINA VILLEGAS Study Date: 01/05/2023 08:53 AM BP: 143/90 mmHg Patient Location: FT CAR [facility] HR: 70 : 1945 Gender: Female Height: [...] Nacho ADAMS MD Transcribed by: NAZIA Technologist: [facility] 06-14-2022 Evaluation note Encounter Date Diagnosis Assessment Notes May, Dental infection (ICD-10 - K04.7) Discussed differential of Victor palsy v. dental issue. Tooth fragment appears inflammed. She will contact her dentist and let us know what they say. [facility] Other Evaluation + Plan note Future Appointments Appointment Date:01/27/2023 01:15:00 PM Scheduled Provider:Prince Cabello MD Location:[facility] Appointment Type:Cardiology Follow Up (FT) Future Scheduled Tests Radiology* Echo Transthoracic Complete 12/16/22 * US Carotid Duplex Bilateral [facility]16/22 [facility] Future Appointments Appointment Date:01/27/2023 01:15:00 PM Scheduled Provider:Prince Cabello MD Location:.[facility] Appointment Type:Cardiology Follow Up (FT) [facility] Future Appointments Appointment Date:07/22/2023 01:15:00 PM Scheduled Provider:Prince Cabello [facility] Type:Cardiology Follow Up ([facility]) [facility] Diagnosis Other specified hypothyroidism (CMS/HCC)- Primary Other hyperlipidemia (CMS/HCC) 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 (CMS/HCC) Primary hypertension (CMS/HCC) Unspecified essential hypertension Right flank pain Abdominal pain, unspecified site Acute right flank pain documented [facility] - Reported* Type Description Date Medical History Hypertension Medical History Hyperlipidemia [facility] Other Hospital course Narrative No data available for this section [facility] No data available for this section [facility] No data available for this section [facility] Summary Purpose Family History No Family [...] IV contrast Shaikh Silva MD [address] [place] [address] Referral ID Status Reason Start Date Expiration Date V isits Requested Visits Authorized [id number] Pending Review 04/11/2023 10/08/2023 1 1 Additional Source Comments INFORMATION SOURCE (unrecogn ized section and content) DATE CREATED AUTHOR 06/05/2018 [facility] DATE CREATED AUTHOR AUTHOR'S ORGANIZ ATION 07/18/2018 [facility] DATE CREATED AUTHOR AUTHOR'S ORGANIZ ATION 05/17/2021 [facility] DATE CREATED AUTHOR AUTHOR'S ORGANIZ ATION 04/01/2022 [facility] DATE CREATED AUTHOR AUTHOR'S ORGANIZ ATION 01/29/2023 [facility] DATE CREATED AUTHOR AUTHOR'S ORGANIZ ATION 06/21/2023 [facility] EPIC Care Teams (unrecognized sec tion and content) Career Development Coordinator/Teacher Relationship Specialty Start Date End Date Sacha Schroeder MD [address] [place] [address] PCP - General Family Medicine 03/27/14 Career Development Coordinator/Teacher Relationship Specialty Start Date End Date Sacha Schroeder MD [address] [place] [address] PCP - General Family Medicine 03/27/14 Career Development Coordinator/Teacher Relationship Specialty Start Date End Date Sacha Schroeder MD [address] [place] [address] PCP - General Family Medicine 03/27/14 Career Development Coordinator/Teacher Relationship Specialty Start Date End Date Shaikh Silva MD [address] [place] [phone] PCP - Devoted 02/28/23 Shaikh Silva MD [address] [place] [phone] PCP - General Internal Medicine 04/11/23 Career Development Coordinator/Teacher Relationship Specialty Start Date End Date Shaikh Silva MD [address] [place] [phone] PCP - [employer]oted 02/28/23 Shaikh Silva MD [address] [place] [phone] PCP - General Internal Medicine 04/11/23 Career Development Coordinator/Teacher Relationship Specialty Start Date End Date Shaikh Silva MD [address] [place] [phone] PCP - [employer]oted 02/28/23 Shaikh Silva MD [address] [place] [phone] PCP - General Internal Medicine 04/11/23 REASON [...] BE BASED ON THE PRIMARY CLINICAL RECORDS. [employer] provides no warranty or guarantee of the accuracy or completeness of information in this document.
--- NOTE | 2023-07-01 22:15 | ECG_ITS ---
[facility] Test Date: 2023-07-01 Pat Name: AYSHA ABRAHAM Department: Room: - Gender: Female Chiropractic Physician: : 1945 Requested By: SHAIKH CUBA Order Number: [id number] Reading MD: ERIKA RODRIGES Measurements Intervals [place] Rate: 69 P: -[id number] IN: 200 QRS: 97 QRSD: 142 T: -67 QT: 454 QTc: 472 Interpretive Statements Sinus rhythm with ventricular couplets Low voltage across the precordium 9150 abnormal ECG Electronically Signed On 07-03-2023 10:51:09 EDT by ERIKA RODRIGES
--- NOTE | 2023-07-01 22:15 | CT_ITS ---
The [address] [address] Patient Name: AYSHA ABRAHAM MRN: [id number] date: 1945 Sex: F Assigned Patient Location: ER Current Patient Location: ER Accession/Order Number: [id number] Exam Date: 07/01/2023 23:00 Report Date: 07/02/2023 00:55 At the request of: AURELIA GILMAN Procedure: CT angio chest EXAM: CTA CHEST WITH IV CONTRAST DATE OF EXAM: 07/01/2023 11:00 PM EDT HISTORY: Shortness of breath. Elevated D-dimer. Thoracic back pain, rule out PE . 78-year-old female COMPARISON: None. TECHNIQUE: Multiple axial images are taken from the level of the thyroid down through the upper abdomen with and without the use of IV contrast. Images are then reconstructed in the sagittal and coronal planes. This exam was performed according to our departmental dose-optimization program which includes use of Automated Exposure Control, adjustment of the mA and/or kV according to patient size and/or use of iterative reconstruction technique. Postprocessing was performed as per hospital protocol: Maximum intensity projection (MIPs) Contrast Used: 98. Ml of Omnipaque 350 FINDINGS: Computer Console Operator: Enlarged heart Lines and Tubes: None. Lungs: Lungs are hyperexpanded groundglass opacities are demonstrated in the left lung. Pleura: Normal Thyroid: Nodules are seen within the thyroid. Aorta: Normal. Pulmonary artery: Pulmonary artery measures within normal. No pulmonary embolus allowing for bolus timing and mixing artifact Heart: Enlarged with coronary artery calcification. Trachea/Bronchi: Well aerated. No intraluminal masses. Esophagus: Esophagus is within normal limits for the amount of distention. Lymph Nodes: Normal. Chest wall: Normal. Osseous Structures: Osseous structures demonstrate rightward curvature with multilevel degenerative disc disease. Subdiaphragm: Subdiaphragmatic abdominal organs included in the [id number] demonstrate an enlarged liver Cholecystectomy clips are demonstrated. CT/CT angio chest IMPRESSION: 1. No CT evidence for acute pulmonary embolus. 2. Opacities in the left lung. Please correlate for viral etiology. 3. Cardiomegaly with coronary artery disease. 4. Hepatomegaly. 5. Cholecystectomy. 6. Thyroid nodules subcentimeter in size. Please correlate with outpatient thyroid labs. Electronically authenticated by: YOUNG CHACKO Date: 07/02/2023 00:55
[2023-07-01 22:33] LABS: Basophils Percent Auto 0.4 % (0.2-2.0); Eosinophils Absolute Auto 0.2 10^3/uL (0.0-0.7); Eosinophils Percent Auto 2.2 % (0.9-7.0); Hematocrit 36.8 % (36.0-48.0); Hemoglobin 12.3 g/dL (12.0-16.0); Immature Granulocytes Abs Auto 0.02 10^3/uL (0.00-0.03); Immature Granulocytes Pct Auto 0.2 % (0.0-0.5); Lymphocytes Absolute Auto 2.1 10^3/uL (1.2-3.8); Lymphocytes Percent Auto 21.7 % (20.5-60.0); Mean Corpuscular HGB Conc 33.4 g/dL (29.9-35.2); Mean Corpuscular Hemoglobin 29.2 pg (26.7-34.0); Mean Corpuscular Volume 87.4 fL (81.0-99.0); Mean Platelet Volume 11.2 fL (9.5-13.5); Monocytes Absolute Auto 0.9 10^3/uL (0.3-0.8); Monocytes Percent Auto 8.6 % (1.7-12.0); Neutrophils Absolute Auto 6.6 10^3/uL (1.4-6.5); Neutrophils Percent Auto 66.9 % (43.0-75.0); Platelet Count 225 10^3/uL (150-450); Red Blood Count 4.21 10^6/uL (4.20-5.40); Red Cell Distribution Width 12.9 % (11.0-15.0); White Blood Count 9.9 10^3/uL (4.0-11.0)
[2023-07-01 22:34] LABS: Bilirubin Urine NEGATIVE (NEGATIVE); Blood Urine NEGATIVE (NEGATIVE); Clarity Urine CLEAR (CLEAR); Color Urine LT. YELLOW (YELLOW); Glucose Urine UA NEGATIVE (NEGATIVE); Ketones Urine NEGATIVE (NEGATIVE); Leukocyte Esterase Urine MODERATE (NEGATIVE); Nitrite Urine NEGATIVE (NEGATIVE); Protein Urine NEGATIVE (NEG/TRACE); Urobilinogen Urine 0.2 EU/dL (0.2-1.0)
[2023-07-01 22:42] LABS: Bacteria Urine NONE SEEN #/HPF (NONE SEEN); Mucus Urine NONE SEEN (NONE SEEN); RBC Urine NONE SEEN #/HPF (0-2); Squamous Epithelial Cell Urine NONE SEEN #/LPF (NONE/RARE)
[2023-07-01 22:43] LABS: Cast Seen? NONE SEEN #/LPF (NONE SEEN); Crystals Seen? None Seen #/HPF (None Seen); Transitional Epi Cells Urine RARE #/LPF (NONE SEEN); Urine Culture Indicated YES
[2023-07-01 22:46] LABS: Anion Gap 12.1; BUN Creatinine Ratio 28.4; Calcium 9.8 mg/dL (8.5-10.1); Chloride 103 mmol/L (98-107); Estimated GFR (African America >60 (>=60); Estimated GFR (Non-African Ame 57 (>=60); Glucose 119 mg/dL (74-106); Potassium 3.1 mmol/L (3.5-5.1); Sodium 140 mmol/L (136-145)
[2023-07-01 22:54] LABS: Troponin I High Sensitivity 9.4 pg/mL (4.0-51.3)
--- NOTE | 2023-07-01 23:29 | ED.BACK1 ---
HPI HPI - Back Pain/Injury General Chief Complaint: Back Pain/Injury Stated Complaint: SEVERE BACK PAIN Time Seen by Provider: 07/01/23 22:10 Source: patient Mode of arrival: walk-in Limitations: no limitations History of Present Illness HPI Narrative: 78-year-old female presents for pain across her back. She has been having this for a month or 2 and it got worse in the past week. She was seen here the other day and had an x-ray that was negative. She was feeling improved with muscle relaxers. She has been taking that at home but now it does not seem to be helping. No new injury. The pain is bilateral and all the way across her thoracic region. She does not complain of neck pain or lower back pain. She has been doing some lifting recently, preparing for a garage sale. Related Data Home Medications ?Medication ?Instructions ?Recorded ?Confirmed amlodipine 5 mg tablet 5 mg PO DAILY 09/20/22 06/29/23 aspirin 81 mg tablet,delayed 81 mg PO DAILY 09/20/22 06/29/23 release (Adult Aspirin Regimen) citalopram 40 mg tablet 40 mg PO DAILY 09/20/22 06/29/23 levothyroxine 50 mcg tablet 50 mcg PO DAILY 09/20/22 06/29/23 losartan 100 1 tab PO DAILY 09/20/22 06/29/23 mg-hydrochlorothiazide 25 mg tablet simvastatin 20 mg tablet 20 mg PO DAILY 09/20/22 06/29/23 Previous Rx's ?Medication ?Instructions ?Recorded ondansetron 4 mg disintegrating 4 mg PO Q8H PRN nausea and 09/22/22 tablet vomiting 4 days #10 tabs acetaminophen 300 mg-codeine 30 mg 1 tab PO Q6H PRN pain 5 days #20 06/29/23 tablet tabs methocarbamol 500 mg tablet 500 mg PO Q8H PRN pain #20 tabs 06/29/23 hydrocodone 5 mg-acetaminophen 325 1 tab PO Q6H PRN pain 5 days #20 07/02/23 mg tablet tabs Allergies Allergy/AdvReac Type Severity Reaction Status Date / Time Penicillins Allergy Unknown Verified 07/01/23 21:54 Opioid HPI Opioid Management Most Recent Opioid Data: Last Pain Scale 9 07/01/23 22:32 Last Pain Intensity 5 09/20/22 13:26 Last ED Pain Assessment 07/01/23 22:32 Review of Systems ROS Narrative A ten point review of systems is negative except as noted above. [facility] Medical History Surgical History Family History Brother Family history of cancer Family history of myocardial infarction Mother Family history of stroke Social History Within the past year, how often did you have a drink containing alcohol: 2-4 times a month Within the past year, how many standard drinks containing alcohol did you have on a typical day: 1 or 2 Within the past year, how often did you have six or more drinks on one occasion: never Total score: 0 Score interpretation: A score less than 3 is consistent with normal alcohol consumption. Smoking status: Former smoker Non-prescribed substance use: denies use Previous occupational history: [employer] Highest level of school completed/degree received: high school graduate Are you now , , , , never or living with a partner: In a typical week, how many times do you talk on the telephone with family, friends, or neighbors: 3 or more times per week How often do you get together with friends or relatives: once per week How often do you attend taoist or buddhist services: 4 or more times per year Do you belong to any clubs or organizations such as taoist groups unions, fraternal or athletic groups, or school groups: no Total score: 2 Score interpretation: A score of greater than or equal to 2 indicates the lowest level of social isolation. Little interest or pleasure in doing things: not at all Feeling down, depressed, or hopeless: not at all Feel stressed/tense/nervous/anxious/difficulty sleeping: not at all Gender Identity: female Exam Narrative Exam Narrative: Nurses note and vital signs reviewed and patient is not hypoxic. General: The patient appears well and in no apparent distress. Patient is resting comfortably on cart. Skin: Warm, dry, no pallor noted. There is no rash noted. Head: Normocephalic, atraumatic Eye: Normal conjunctiva, no drainage Ears, Nose, Mouth, and Throat: oral mucosa is moist. Nares patent. Cardiovascular: Regular Rate and Rhythm Respiratory: Patient is in no distress, no accessory muscle use, lungs are clear to auscultation, no wheezing, rales or rhonchi Back: No bruise rash or focal area of tenderness to palpation GI: Soft and nontender Musculoskeletal: The patient has no evidence of calf tenderness, no pitting edema, symmetrical pulses noted bilaterally Neurological: A&O, normal speech Psychiatric: Cooperative Constitutional Vital Signs, click to edit/add: Last Vital Signs Temp 98.0 F 07/01/23 21:55 Pulse 98 H 07/01/23 21:55 Resp 16 07/01/23 21:55 BP 160/101 H 07/01/23 21:55 Pulse Ox 98 07/01/23 21:55 O2 Del Method Room Air 07/01/23 21:55 Course Vital Signs Vital signs: Vital Signs Temperature 98.0 F 07/01/23 21:55 Pulse Rate 98 H 07/01/23 21:55 Respiratory Rate 16 07/01/23 21:55 Blood Pressure 160/101 H 07/01/23 21:55 Pulse Oximetry 98 07/01/23 21:55 Oxygen Delivery Method Room Air 07/01/23 21:55 Temperature 98.0 F 07/01/23 21:55 Pulse Rate 98 H 07/01/23 21:55 Respiratory Rate 16 07/01/23 21:55 Blood Pressure 160/101 H 07/01/23 21:55 Pulse Oximetry 98 07/01/23 21:55 Oxygen Delivery Method Room Air 07/01/23 21:55 MDM - Back Pain/Injury MDM Narrative Medical decision making narrative: CTA shows no acute findings. Urine culture is ordered. She has no urinary symptoms. She was given IV morphine here and prescribed [place]. She will follow-up with her doctor. Treatment diagnosis and follow-up were discussed with the patient. Differential Diagnosis Differential diagnosis: Likely thoracic back pain and other (Thoracic muscle pain, PE, pneumothorax, fracture) Lab Data Attestation: I reviewed the patient's lab results. Labs: Lab Results 07/01/23 07/01/23 Range/Units 22:20 22:24 WBC 9.9 (4.0-11.0) 10^3/uL RBC 4.21 (4.20-5.40) 10^6/uL Hgb 12.3 (12.0-16.0) g/dL Hct 36.8 (36.0-48.0) % MCV 87.4 (81.0-99.0) fL MCH 29.2 (26.7-34.0) pg MCHC 33.4 (29.9-35.2) g/dL RDW 12.9 (11.0-15.0) % Plt Count 225 (150-450) 10^3/uL MPV 11.2 (9.5-13.5) fL Neut % (Auto) 66.9 (43.0-75.0) % Lymph % (Auto) 21.7 (20.5-60.0) % [place] % (Auto) 8.6 (1.7-12.0) % Eos % (Auto) 2.2 (0.9-7.0) % Baso % (Auto) 0.4 (0.2-2.0) % Neut # (Auto) 6.6 H (1.4-6.5) 10^3/uL Lymph # (Auto) 2.1 (1.2-3.8) 10^3/uL [place] # (Auto) 0.9 H (0.3-0.8) 10^3/uL Eos # (Auto) 0.2 (0.0-0.7) 10^3/uL Baso # (Auto) 0.0 (0.0-0.1) 10^3/uL Abs Immat Gran (auto) 0.02 (0.00-0.03) 10^3/uL Imm/Tot Granulo (auto) 0.2 (0.0-0.5) % Sodium 140 (136-145) mmol/L Potassium 3.1 L (3.5-5.1) mmol/L Chloride 103 (98-107) mmol/L Carbon Dioxide 28.0 (21.0-32.0) mmol/L Anion Gap 12.1 BUN 27.0 H (7.0-18.0) mg/dL Creatinine 0.95 (0.55-1.02) mg/dL Est GFR ( Amer) >60 (>=60) Est GFR (Non-Af Amer) 57 L (>=60) BUN/Creatinine Ratio 28.4 Glucose 119 H (74-106) mg/dL Calcium 9.8 (8.5-10.1) mg/dL Troponin I High Sens 9.4 (4.0-51.3) pg/mL Urine Color Lt. yellow (YELLOW) Urine Clarity Clear (CLEAR) Urine pH 6.0 (5.0-9.0) Ur Specific [place] 1.010 (1.005-1.025) Urine Protein Negative (NEG/TRACE) mg/dL Urine Glucose (UA) Negative (NEGATIVE) mg/dL Urine Ketones Negative (NEGATIVE) mg/dL Urine Occult Blood Negative (NEGATIVE) Urine Nitrite Negative (NEGATIVE) Urine Bilirubin Negative (NEGATIVE) Urine Urobilinogen 0.2 (0.2-1.0) EU/dL Ur Leukocyte Esterase Moderate A (NEGATIVE) Urine RBC None seen (0-2) #/HPF Urine WBC 10-20 A (NONE SEEN) #/HPF Ur Squamous Epith Cells None seen (NONE/RARE) #/LPF Ur Transition Epith Cell Rare A (NONE SEEN) #/LPF Urine Crystals None seen (None Seen) #/HPF Urine Bacteria None seen (NONE SEEN) #/HPF Urine Casts None seen (NONE SEEN) #/LPF Urine Mucus None seen (NONE SEEN) Ur Culture Indicated? Yes Imaging Data CTA chest: Radiologist's impression: ITS Impressions Chest CTA 07/01/23 22:[address]: 1[address] No [address] evidence for acute pulmonary embolus. 2. Opacities in the left lung. Please correlate for viral etiology. 3. Cardiomegaly with coronary artery disease. 4. Hepatomegaly. 5. Cholecystectomy. 6. Thyroid nodules subcentimeter in size. Please correlate with outpatient thyroid labs. Electronically authenticated by: YOUNG CHACKO Date: 07/02/2023 00:55 Discharge Plan Discharge Stand Alone Forms: Portal Instructions Chief Complaint: Back Pain/Injury Clinical Impression: Thoracic back pain Patient Disposition: Home, Self-Care Time of Disposition Decision: 01:02 Condition: Good Mode of Transportation: Private Vehicle Prescriptions / Home Meds: New hydrocodone-acetaminophen 5-325 mg tablet 1 tab PO Q6H PRN (Reason: pain) 5 Days Qty: 20 0RF No Action acetaminophen-codeine 300-30 mg tablet 1 tab PO Q6H PRN (Reason: pain) 5 Days Qty: 20 0RF methocarbamol 500 mg tablet 500 mg PO Q8H PRN (Reason: pain) Qty: 20 0RF citalopram 40 mg tablet 40 mg PO DAILY Hold Instructions: Order Change amlodipine 5 mg tablet 5 mg PO DAILY losartan-hydrochlorothiazide 100-25 mg tablet 1 tab PO DAILY simvastatin 20 mg tablet 20 mg PO DAILY aspirin [Adult Aspirin Regimen] 81 mg tablet,delayed release (DR/EC) 81 mg PO DAILY levothyroxine 50 mcg tablet 50 mcg PO DAILY ondansetron 4 mg tablet,disintegrating 4 mg PO Q8H PRN (Reason: nausea and vomiting) 4 Days Qty: 10 0RF Print Language: Upper Sorbian Instructions: Thoracic Pain (ED) Referrals: Shaikh Silva MD [Primary Care Provider] - 1 week
[2023-07-02] MEDS: MORPHINE SULFATE 4 MG/ML VIAL IV (01:16)
== END 2023-07-02 01:24 | disposition home or self-care (01) ==
PROVIDERS: Emergency Provider Emergency Medicine; PCP Internal Medicine
DX: M54.6 Pain in thoracic spine (principal); Z79.899 Other long term (current) drug therapy; Z79.82 Long term (current) use of aspirin; Z79.890 Hormone replacement therapy; Z87.891 Personal history of nicotine dependence
CPT/HCPCS: 36415; 71275; 80048; 81001; 84484; 85025; 87086; 93005; 96374; 99285; Q9967

== ENCOUNTER 2023-08-05 12:34 | Outpatient (OUT) | payer OTHER, SELFPAY ==
--- NOTE | 2023-08-05 12:37 | US_ITS ---
The [address] [address] Patient Name: AYSHA ABRAHAM MRN: [id number] date: 1945 Sex: F Assigned Patient Location: US Current Patient Location: Accession/Order Number: [id number] Exam Date: 08/05/2023 12:40 Report Date: 08/08/2023 06:15 At the request of: LETHA GÓMEZ Procedure: US soft tissue head and neck EXAM: US soft tissue head and neck HISTORY: mass of neck COMPARISON: Ultrasound soft tissue head and neck 02/04/2023 TECHNIQUE: Percutaneous ultrasound of lateral left neck FINDINGS: Persistent hypoechoic smoothly marginated mass within upper left neck situated between the carotid arteries and parotid gland, 1.2 x 1.0 x 1.7 cm in size. Color Doppler demonstrates small amount of internal blood flow. US/US soft tissue head and neck IMPRESSION: 1. Lateral upper left neck mass appears slightly smaller today's study, but this may be due to slightly different tissue plane. The differential is unchanged with concern for a carotid body tumor, atypical lymph node, etc. Electronically authenticated by: CAMILLE CARTER Date: 08/08/2023 06:15
--- OUTSIDE RECORDS SUMMARY | 2023-08-05 12:57 | XMS_ITS | CCD ---
Author Organization [facility] Care Team Providers Care Parts Fabricator Name Role Phone Joy BROWNE DORIS Attending Unavailable SACHA SCHROEDER Referring Unavailable PROVIDER, UNKNOWN Attending Unavailable PROVIDER, UNKNOWN Admitting Unavailable SACHA SCHROEDER Primary Care Unavailable Elda DE LEÓN, [place] Primary Care Provider Sacha Schroeder MD Primary Care Provider PAOLA, DR ALLY Hamilton Admitting Unavailable GUEVARA, DR ALLY Hamilton Attending Unavailable GUEVARA, DR ALLY Hamilton Primary Care Unavailable ZIEBER, DR SETH Pryor Consulting Unavailable GUEVARA, DR ALLY Hamilton Consulting Unavailable GUEVARA, DR ALLY Hamilton Primary Care Unavailable GUEVARA, DR ALLY Hamilton Admitting Unavailable GUEVARA, DR ALLY Hamilton Attending Unavailable MINFORD, DR MICHELE Vizcarra Consulting Unavailable GUEVARA, DR ALLY Hamilton Consulting Unavailable GUEVARA, DR ALLY Hamilton Admitting Unavailable GUEVARA, DR ALLY Hamilton Attending Unavailable ZIEBER, DR SETH Pryor Consulting Unavailable GUEVARA, DR ALLY Hamilton Primary Care Unavailable GUEVARA, DR ALLY Hamilton Consulting Unavailable REQUEST, DR LOW LISTED Attending Unavaila ble REQUEST, DR LOW LISTED Consulting Unavaila ble REQUEST, DR LOW LISTED Admitting Unavaila ble GUEVARA, DR ALLY Hamilton Primary Care Unavailable GuevaraAlly Unavailable Sacha Schroeder MD Primary Care Provider SHAIKH SILVA Primary Care Physician Prince Cabello Attending Unavaila ble NONE, XXXX Referring Unavailable Prince Cabello Attending Unavaila ble NONE, XXXX Referring Unavailable Prince Cabello Referring Unavaila ble Prince Cabello Attending Unavaila ble Prince Cabello Admitting Unavaila ble MD Nacho ADAMS Consulting Unavailable Nacho ADAMS Consulting Unavailable Nacho ADAMS Consulting Unavailable Augie MCDOWELL Attending Unavailable Shaikh Silva MD Unavailable Shaikh Silva MD Primary Care Provider [phone] SHAIKH SILVA Attending Unavailable SHAIKH SILVA Attending Unavailable LILY GÓMEZ Attending Unavailable SHAIKH SILVA Attending Unavailable SHAIKH SILVA Attending Unavailable BSHARA, GUSMAN Admitting Unavailable BSHARA, GUSMAN Attending Unavailable YAFI, [facility] Consulting Unavailable Allergies Allergy Classification Reported Allergen(s) Allergy Type Date of Onset Reaction(s) Facility (2 sources) Sulfonamides (Antibiotic); Translations: [SULFA (SULFONAMIDE ANTIBIOTICS)] Propensity to adverse reactions to drug (disorder) 03-28-[address] [facility] Repository (2 sources) OTHER; Translations: [OTHER] Propensity to adverse reactions (disorder) 02-03-[address] [facility] Repository (7 sources) atorvastatin; Translations: [ATORVASTATIN] Drug Allergy 06-18-19 16 [facility] Repository (7 sources) ezetimibe; Translations: [EZETIMIBE] Drug Allergy 05-21-19 17 [facility]) Hmg-Coa Reductase Inhibitors (Statins); Translations: [STATINS] Propensity to adverse reactions to drug (disorder) 09-05-19 08 [facility] (7 sources) Nitroglycerin; Translations: [NITROGLYCERIN] Drug Allergy 06-18-19 16 [facility] (7 sources) pitavastatin; Translations: [PITAVASTATIN] Drug Allergy 09-02-19 17 [facility] ([facility] sources) rosuvastatin; Translations: [ROSUVASTATIN] Drug Allergy 09-04-19 16 [facility] ([facility] sources) Simvastatin; Translations: [SIMVASTATIN] Drug Allergy 06-18-19 16 [facility] [employer] Repository (7 sources) Sulfonamides (Antibiotic); Translations: [SULFA ANTIBIOTICS] Propensity to adverse reactions to drug (disorder) 09-02-19 08 Swelling [facility] [employer] Repository (7 sources) BANDAGE TAPE; Translations: [BANDAGE TAPE] Propensity to adverse reactions (disorder) 09-17-19 15 [facility] [employer] [facility] Repository (1 source) Cephalosporins (Antibiotic) Drug allergy (disorder) [facility] Repository (1 source) Penicillins Drug allergy (disorder) 08-31-19 13 [facility] Repository (5 sources) Penicillin; Translations: [penicillin] Drug Allergy hives, Eruption of skin (disorder) [facility] (4 sources) Cephalosporins (Antibiotic) Drug Intolerance 01-10-20 13 [facility] Work Phone: (4 sources) Penicillin G Drug Allergy 07-21-19 23 Rash [facility] Medications Current Medications Medication Drug Class(es) Dates Sig (Normalized) Sig (Original) [id number] 200 actuat albuterol 0.09 mg/actuat metered dose [...] Orally every 12 hrs for 7 days 17 Apr, 2023 Active clopidogrel 75 mg oral tablet (4 [...] Onset: 01-31-2017 01-31-2017 Episodic Acute myocardial infarction (6 sources) Myocardial infarction; Translations: [Non-ST elevation (NSTEMI) myocardial infarction] Onset: 06-16-2016 06-16-2016 Chronic Chronic obstructive pulmonary disease and bronchiectasis (7 sources) Chronic obstructive lung disease; Translations: [Chronic obstructive pulmonary disease, unspecified] Onset: 06-28-2013 07-11-2015 Chronic Conduction disorders (6 sources) Right bundle branch block; Translations: [Unspecified right bundle-branch block] Onset: 09-11-2007 09-11-2007 Chronic Congestive heart failure; nonhypertensive (1 source) Heart failure, unspecified; Translations: [Congestive heart failure, unspecified HF chronicity, unspecified heart failure type (HCC)] Onset: 06-29-2018 Chronic Coronary atherosclerosis and other heart disease (20 sources) Coronary atherosclerosis; Translations: [Atherosclerotic heart disease of [place] coronary artery without angina pectoris] Onset: 06-12-2015 04-16-2021 Chronic Diabetes [...] bleeding] Onset: 02-23-2017 02-24-2017 Chronic Essential hypertension (18 sources) Essential hypertension; Translations: [Essential (primary) hypertension] Onset: 09-11-2007 06-17-2018 Chronic Heart valve disorders (18 sources) H/O: heart valve recipient; Translations: [Presence of other heart-valve replacement] Onset: 09-11-2007 06-17-2018 Chronic Nutritional deficiencies (1 source) Moderate protein-calorie malnutrition; Translations: [Malnutrition of moderate degree (HCC)] Onset: 07-07-2018 Chronic Other circulatory disease (4 sources) Other specified symptoms and signs involving the circulatory and respiratory systems; Translations: [OTH SPEC SX SIGNS INVLV CIRC RS] Onset: 01-20-2022 Episodic Other diseases of bladder and urethra [...] drum, left ear] Onset: 03-14-2023 03-14-2023 Episodic Thyroid disorders (13 sources) Non-toxic uninodular goiter; Translations: [Nontoxic single thyroid nodule] Onset: 03-22-2014 06-17-2018 Chronic Past or Other Problems Problem Classification Problem Date Documented Da te Episodic/Chronic Biliary tract disease (6 sources) Biliary calculus; [...] Translations: [Anemia, unspecified] Onset: 01-31-2017 01-31-2017 Episodic Fluid and electrolyte disorders (1 source) Hypokalemia; Translations: [Hypokalemia] Onset: 06-29-2018 Episodic Gastrointestinal hemorrhage (12 sources) Melena; Translations: [Melena] Onset: 02-20-2014 02-20-2014 Episodic Menstrual disorders (6 sources) Disorder of female genital organs; Translations: [Other specified irregular menstruation] Onset: 05-02-2014 Resolved: 05-02-2014 05-02-2014 Chronic Nonspecific chest pain (6 sources) Chest pain; Translations: [Chest pain, unspecified] Onset: 06-14-2016 06-14-2016 Episodic Osteoarthritis (4 sources) Arthritis of shoulder region joint; Translations: [Primary osteoarthritis, unspecified shoulder] Onset: 07-20-2022 Resolved: 07-20-2022 07-20-2022 Chronic Other circulatory disease (1 source) Personal history of other diseases of the circulatory system; Translations: [History of hypertension] Onset: 06-29-2018 Episodic Other connective tissue disease (4 sources) Trochanteric bursitis of left hip; Translations: [Trochanteric bursitis, left hip] Onset: 07-20-2022 Resolved: 07-20-2022 07-20-2022 Episodic Other injuries and conditions due to external causes (6 sources) Late effect of injury; Translations: [Late effect of injury] Onset: 10-10-2015 10-10-2015 Episodic Other non-traumatic joint [...] Onset: 04-03-2014 04-03-2014 Episodic Residual codes; unclassified (6 sources) Other specified health status; Translations: [Other drug allergy] Onset: 09-01-2016 09-01-2016 Episodic Spondylosis; intervertebral disc disorders; other back [...] Ketones Ql (U) Negative NEGATIVE mg/dL [facility] Leukocyte esterase Test strip Ql (U) Negative NEGATIVE [facility] NITRITE URINE Negative NEGATIVE [facility] pH (U) 5.5 [pH] 5.0 - 9.0 [facility] PROTEIN URINE Negative NEG/TRACE mg/dL [facility] SPECIFIC GRAVITY URINE 1.025 1.005 - 1.025 [facility] URINE MICROSCOPIC INDICATED NO [facility] UROBILINOGEN URINE 0.2 EU/dL 0.2 - 1.0 EU/dL [facility] Heart and Vascular Office/Cl inic Noteon 01-27-2023 Heart and Vascular Office/Clinic Note Chief Complaint here for test results History of Present Illness Sarina Abraham is a 77-year-old female with a history [...] 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 She has a history of a spot [...] normal judgement, normal psychiatric thoughts. Assessment/Plan Sarina Abraham is a 77-year-old female with a history [...] with voice recognition artificial intelligence software, specifically [employer], [employer] and or [employer]. Substitutions may have occurred due to the inherent limitations of voice recognition and artificial intelligence software. Documentation services were performed after patient or guardian consented to allow [employer] to record this visit. BERTRAM product info specialist and provider reviewed before signing. BRETRAM: Mary Gardner Follow-up No qualifying data available Problem List/Past Medical History Ongoing No qualifying data Historical Coronary artery disease Hyperlipidemia Hypertension Hypertension Procedure/Surgical History Cholecystectomy. Medications amlodipine aspirin 81 mg Oral EC Tab citalopram levothyroxine losartan simvastatin Allergies penicillin (Rash) Social History Tobacco Former smoker, quit more than 30 days ago Tobacco Use:., 01/27/2023 Normal [facility] Comment on above: Result Comment: Elec tronically Signed By: Destiney DE LEÓN, Prince Castro\.br\Date and Time Signed: 01/27/23 19:48 EST\.br\Electronically Co-Signed By: Mary Gardner\.br\Date and Time Co-Signed: 01/27/23 15:10 EST Physician Orderon 01-27-2023 Physician Order [id number] 1#1.00TIFF Normal [facility] Heart and Vascular Office/Cl inic Noteon 01-23-2023 Heart and Vascular Office/Clinic Note Chief Complaint here to establish care History of Present Illness Sarina Abraham is a 77-year-old female patient here today [...] breathing. The patient mentions that her eye Dr. have seen spot behind her left eye. [...] artery disease) (I25.10: Atherosclerotic heart disease of [place] coronary artery without angina pectoris) Sarina Abraham is a 77-year-old female with a history [...] hear. Follow up in 6 weeks in [place]. Portions of this record may have been created with voice recognition artificial intelligence software, specifically [employer], [employer] and or [employer]. Substitutions may have occurred due to the inherent limitations of voice recognition and artificial intelligence software. Documentation services were performed after patient or guardian consented to allow [employer] to record this visit. BERTRAM product info specialist and provider reviewed before signing. BERTRAM: Abran Nick. Follow-up No qualifying data available Problem List/Past Medical History Ongoing No qualifying data Historical Coronary artery disease Hyperlipidemia Hypertension Hypertension Procedure/Surgical History Cholecystectomy. Medications amlodipine aspirin 81 mg Oral EC Tab citalopram levothyroxine losartan simvastatin Allergies penicillin (Rash) Social History Tobacco Former smoker, quit more than 30 days ago Tobacco Use:., 12/16/2022 Normal [facility] Comment on above: Result Comment: Elec tronically Signed By: Destiney DE LEÓN, Prince Castro\.br\Date and Time Signed: 01/23/23 19:23 EST\.br\Electronically Co-Signed By: Michelle Nick\.br\Date and Time Co-Signed: 12/16/22 14:43 EDT\.br\Electronically Co-Signed By: Michelle Nick\.br\Date and Time Co-Signed: 12/16/22 14:44 EDT Consent for Treatmenton Consent for Treatment [id number] #1.00TIFF Normal [facility] US Carotid Duplex Bilateralo n 01-05-2023 [...] Carotid Diagnostic Criteria Committee. Vascular Medicine 2020; https://journals.[employer].com/doi/full/10 [email or web address] 253 Ordering Provider: Prince Cabello FINAL REPORT Dictated: 01/05/2023 10:56 am Carlos Mcmillan MD, V. Signed (Electronic Signature): 01/05/2023 10:56 am Signed by: Carlos Mcmillan MD, V. Transcribed by: SALVATORE Technologist: [place] [facility] Transfer Inon 12-22-2022 Transfer In [id number] #1.00TIFF [facility] Transfer In [id number] #1.00TIFF [facility] Insurance Correspondenceon 1 Insurance Correspondence [id number] 4#1.00TIFF [facility] Physician Orderon 12-17-2022 Physician Order [id number] 6#1.00TIFF [facility] Consent for Treatmenton 11-28 Consent for Treatment [id number] #1.00TIFF [facility] US THYROIDon 03-30-2022 US THYROID EXAMINATION: [...] tumor or atypical lymph node TI-RADS: The [employer] TI-RADS committee's white paper recommendations for thyroid lesions classified as TR3 (mildly suspicious) are listed below: > 1.5 cm. Follow-up ultrasound in 1, 3, and 5 years. > 2.5 cm. FNA. J. Am Janelle Radiol 2017;14:587-595. Electronically authenticated by: MICHELE GIBSON Date: 2022-03-30 11:59 Normal [facility] CT NECK ST W CONon CT NECK ST W CON EXAMINATION: CT [...] versus change is recommended. Electronically authenticated by: SETH JASPALCADE Date: 2022-02-12 18:07 Normal [facility] CBC AUTO DIFFon 01-20-2022 BASO # 0.1 103/ul Normal 0.0-0.1 [facility] Comment on above: Performed By: #### D ATCBC #### [facility] [address] [place] [address] Dr. Cabrera Gifford Basophils/100 WBC (Bld) 0.7 % Normal 0.2-2.0 [facility] Comment on above: Performed By: #### D ATCBC #### [facility] [address] [place] [address] Dr. Cabrera Gifford EO # 0.3 103/ul Normal 0.0-0.7 [facility] Comment on above: Performed By: #### D ATCBC #### [facility] [address] [place] [address] Dr. Cabrera Gifford Eosinophils/100 WBC (Bld) 3.7 % Normal 0.9-7.0 [facility] Comment on above: Performed By: #### D ATCBC #### [facility] [address] [place] [address] Dr. Cabrera Gifford Erythrocyte distribution width (RBC) [Ratio] 12.5 % Normal 11.0-15.0 [facility] Comment on above: Performed By: #### D ATCBC #### [facility] [address] [place] [address] Dr. Cabrera Gifford Hematocrit (Bld) [Volume fraction] 38.9 % Normal 36.0-48.0 [facility] Comment on above: Performed By: #### D ATCBC #### [facility] [address] [place] [address] Dr. Cabrera Gifford Hemoglobin (Bld) [Mass/Vol] 12.8 g/dL Normal 12.0-16.0 [facility] Comment on above: Performed By: #### D ATCBC #### [facility] [address] [place] [address] Dr. Cabrera Gifford IG # 0.02 10e3/ul Normal 0.00-0.03 [facility] Comment on above: Performed By: #### D ATCBC #### [facility] [address] [place] [address] Dr. Cabrera Gifford IG % 0.3 % Normal 0.0-0.5 [facility] Comment on above: Performed By: #### D ATCBC #### [facility] [address] [place] [address] Dr. Cabrera Gifford LYMPH # 1.4 103/ul Normal 1.2-3.8 [facility] Comment on above: Performed By: #### D ATCBC #### [facility] [address] [place] [address] Dr. Cabrera Gifford Lymphocytes/100 WBC (Bld) 20.4 % Critically low 20.5-60.0 [facility] Comment on above: Performed By: #### D ATCBC #### [facility] [address] [place] [address] Dr. Cabrera Gifford MCH (RBC) [Entitic mass] 29.1 pg Normal 26.7-34.0 [facility] Comment on above: Performed By: #### D ATCBC #### [facility] [address] [place] [address] Dr. Cabrera Gifford MCHC (RBC) [Mass/Vol] 32.9 g/dL Normal 29.9-35.2 [facility] Comment on above: Performed By: #### D ATCBC #### [facility] [address] [place] [address] Dr. Cabrera Gifford MCV (RBC) [Entitic vol] 88.4 fL Normal 81.0-99.0 [facility] Comment on above: Performed By: #### D ATCBC #### [facility] [address] [place] [address] Dr. Cabrera Gifford MONO # 0.6 103/ul Normal 0.3-0.8 [facility] Comment on above: Performed By: #### D ATCBC #### [facility] [address] [place] [address] Dr. Cabrera Gifford Monocytes/100 WBC (Bld) 8.2 % Normal 1.7-12.0 [facility] Comment on above: Performed By: #### D ATCBC #### [facility] [address] [place] [address] Dr. Cabrera Gifford NEUT # 4.5 103/ul Normal 1.4-6.5 [facility] Comment on above: Performed By: #### D ATCBC #### [facility] [address] [place] [address] Dr. Cabrera Gifford Neutrophils/100 WBC (Bld) 66.7 % Normal 43.0-75.0 [facility] Comment on above: Performed By: #### D ATCBC #### [facility] [address] [place] [address] Dr. Cabrera Gifford Platelet mean volume (Bld) [Entitic vol] 10.8 fL Normal 9.5-13.5 [facility] Comment on above: Performed By: #### D ATCBC #### [facility] [address] [place] [address] Dr. Cabrera Gifford PLT 210 103/ul Normal 150-450 [facility] Comment on above: Performed By: #### D ATCBC #### [facility] [address] [place] [address] Dr. Cabrera Gifford RBC 4.40 106/ul Normal 4.20-5.40 [facility] Comment on above: Performed By: #### D ATCBC #### [facility] [address] [place] [address] Dr. Cabrera Gifford WBC 6.8 103/ul Normal 4.0-11.0 [facility] Comment on above: Performed By: #### D ATCBC #### [facility] [address] [place] [address] Dr. Cabrera Gifford EDWIN- BMP WITH LIPIDon 2021 Anion gap [Moles/Vol] 11.8 mmol/L Normal [facility] Comment on above: Performed By: #### D ATBMP #### [facility] [address] [place] [address] Dr. Cabrera Gifford Calcium [Mass/Vol] 9.4 mg/dL Normal 8.5-10.1 [facility] Comment on above: Performed By: #### D ATBMP #### [facility] [address] [address] [address] Cabrera Gifford Chloride [Moles/Vol] 102 mmol/L Normal 98-107 [facility] Comment on above: Performed By: #### D ATBMP #### [facility] [address] [address] [address] Cabrera Gifford Cholesterol [Mass/Vol] 161 mg/dL Normal <=200 [facility] Comment on above: Performed By: #### D ATBMP #### [facility] [address] [address] [address] Cabrera Gifford Cholesterol in HDL [Mass/Vol] 66 mg/dL Critically high 40-60 [facility] Comment on above: Performed By: #### D ATBMP #### [facility] [address] [address] [address] Cabrera Gifford Cholesterol in LDL [Mass/Vol] 77.2 mg/dL Normal [facility] Comment on above: Performed By: #### D ATBMP #### [facility] [address] [address] [address] Cabrera Gifford CO2 [Moles/Vol] 30.9 mmol/L Normal 21.0-32.0 [facility] Comment on above: Performed By: #### D ATBMP #### [facility] [address] [address] [address] Cabrera Gifford Creatinine [Mass/Vol] 0.79 mg/dL Normal 0.55-1.02 [facility] Comment on above: Performed By: #### D ATBMP #### [facility] [address] [address] [address] Cabrera Gifford EGFR-AF SWISS >60 Normal >=60 [facility] Comment on above: Performed By: #### D ATBMP #### [facility] [address] [address] [address] Cabrera Gifford EGFR-NON AF SWISS >60 Normal >=60 [facility] Comment on above: Performed By: #### D ATBMP #### [facility] [address] [address] [address] Cabrera Gifford Glucose [Mass/Vol] 103 mg/dL Normal 74-106 [facility] Comment on above: Performed By: #### D ATBMP #### [facility] [address] [address] [address] Cabrera Gifford HDL NORMAL > or = 60 mg/dl - LOW CARDIOVASCULAR RISK <40 mg/dl - HIGH CARDIOVASCULAR RISK Normal [facility] Comment on above: Performed By: #### D ATBMP #### [facility] [address] [address] [address] Cabrera Gifford LDL CALC NORMAL SEE BELOW Normal [facility] Comment on above: Result Comment: <100 mg/dl OPTIMAL 100 - 129 mg/dl NEAR OR ABOVE OPTIMAL 130 - 159 mg/dl BORDERLINE HIGH 160 - 189 mg/dl HIGH >190 mg/dl VERY HIGH Performed By: #### D ATBMP #### [facility] [address] [address] [address] Cabrera Gifford Potassium [Moles/Vol] 3.7 mmol/L Normal 3.5-5.1 [facility] Comment on above: Performed By: #### D ATBMP #### [facility] [address] [address] [address] Cabrera Gifford Sodium [Moles/Vol] 141 mmol/L Normal 136-145 [facility] Comment on above: Performed By: #### D ATBMP #### [facility] [address] [address] [address] Cabrera Gifford Triglyceride [Mass/Vol] 89 mg/dL Normal <=150 [facility] Comment on above: Performed By: #### D ATBMP #### [facility] [address] [address] [address] Cabrera Gifford Urea nitrogen [Mass/Vol] 17.0 mg/dL Normal 7.0-18.0 [facility] Comment on above: Performed By: #### D ATBMP #### [facility] [address] [address] [address] Cabrera Gifford Urea nitrogen/Creatinine [Mass ratio] 21.5 mg/mg Normal [facility] Comment on above: Performed By: #### D ATBMP #### [facility] [address] [address] [address] Cabrera Gifford VLDL CALC 17.8 mg/dL Normal [facility] Comment on above: Performed By: #### D ATBMP #### [facility] [address] [address] [address] Cabrera Gifford MG MAMM SCREEN 3D EVIE CADon 01-20-2022 MG MAMM SCREEN 3D EVIE CAD Patient: SARINA ABRAHAM Exam Date: 01/20/2022 : 1945 Gender:F Ordering : DR ALLY GUEVARA M.D. Admission #: [id number] Family : Order #: [id number] CLICK HERE TO VIEW EXAM RADIOLOGY REPORT [...] Treatments None Family Cancers None LOCATION: [facility] BREAST COMPOSITION: Scattered areas fibroglandular [...] PALPABLE LUMP SHOULD BE BIOPSIED. Dictated by: Seth Garcia M.D. on 01/20/2022 at 13:25 Approved by: Seth Garcia M.D. on 01/20/2022 at 13:29 Normal [facility] US CAROTID ART BILon 022 US CAROTID [...] neck if clinically indicated. Electronically authenticated by: SETH GARCIA Date: 2022-01-20 16:26 Normal [facility] OBSOLETEon 06-02-2018 OBSOLETE Refill (CARDFV) SARINA LOVETT ([id number]) 1945 F Date Time Provider Department 06/02/18 Joy BROWNE During your visit today, we recorded the following information about you: Heidi Ordaz [employer] Supervisor II 06/02/2018 5:21 PM Signed Patient phones requesting refills as follows: Pending Prescriptions Disp Refills NITROGLYCERIN 0.4 MG SUBLINGUAL TABLET 25 tablet 5 Sig: DISSOLVE 1 TABLET UNDER THE TONGUE NEEDED FOR CHEST PAIN MARIO: Yes Please review and advise. Heidi Ordaz [employer] Supervisor II Allergies As of Date: 06/02/2018 Noted Allergy Reaction Statins [Other] 03/28/2003 Comments: Caused severe muscular weakness. SULFA (SULFONAMIDE ANTIBIOTICS) 03/28/2003 Comments: Caused severe generalized swelling. tape [Other] 02/02/2006 Comments: Severe skin reaction; needs to use paper tape Date Reviewed: 05/02/2018 Reviewed by: Georgia Mayer Ma - Fully Assessed Reason for Visit: Refill Request [94] Order(s):nitroglycer in sublingual (NITROQUICK) 0.4 mg SL tabletDISSOLVE 1 [...] Status:Closed by Joy BROWNE MD on 06/04/18 [facility] CNOVon 05-02-2018 CNOV Office Visit (CARDFV) SARINA LOVETT ([id number]) 1945 F Date Time Provider Department 05/02/18 11:30 AM Joy BROWNE During your visit today, we recorded the following information about you: Pulse Blood pressure Weight Height 80/minute 145/90 73.8 kg 1.702 m Joy Browne MD 05/02/2018 11:59 AM Written Joy Browne MD 05/02/2018 12:08 PM Signed [facility] [place] [facility] Department of Cardiovascular Medicine [facility] OUTPATIENT VISIT DATE May 02, 2018 OUTPATIENT VISIT TYPE Established Patient PRIMARY CARE PHYSICIAN: Sadia Diaz MD ([facility]) [address] [facility] [address] [address] REFERRING PHYSICIAN: Sacha Ford MD [phone] [facility] [address] CHIEF COMPLAINT: Office Follow-Up Visit HISTORY OF [...] Coronary atherosclerosis of unspecified type of vessel, kobuk or graft Coronary Atherosclerosis - Diabetes (HCC) [...] or joint pain, Stiffness , Joint swelling NEUROLOGIC/PSYCHIATR IC: Negative for: Weakness, Paralysis, Numbness, Tingling, Tremor, Nervousness, Depressed mood, Memory loss SKIN: Negative for: Rashes, Itching HEMATOLOGICAL/LYMPHA TIC: Negative for: Easy bruising , Easy bleeding [...] . (I25.110) Atherosclerosis of coronary artery of kobuk heart with unstable angina pectoris, unspecified vessel or lesion type (HCC) Will resume coreg PLAN AND RECOMMENDATIONS: Lipid is managed and blood testing is done by pcp CONTACT INFORMATION: MD Akash Robbins and Uyen Coughlin Department of Cardiovascular Medicine Heart and Vascular [place] [facility] Cardiology [address] [place] [address] Referring Provider: SACHA SCHROEDER [[id number]] Allergies As of Date: 05/02/2018 Noted Allergy Reaction Statins [Other] 03/28/2003 Comments: Caused severe muscular weakness. SULFA (SULFONAMIDE ANTIBIOTICS) 03/28/2003 Comments: Caused severe generalized swelling. 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 Author Type: Physician Type: Progress Notes Filed: 05/02/2018 12:08 PM Note Text: [facility] [place] [facility] Department of Cardiovascular Medicine [facility] OUTPATIENT VISIT DATE May 02, 2018 OUTPATIENT VISIT TYPE Established Patient PRIMARY CARE PHYSICIAN: Sadia Diaz MD ([facility]) [address] [facility] [address] [place] [address] REFERRING PHYSICIAN: Sacha Ford MD [phone] [facility] [phone] CHIEF COMPLAINT: Office Follow-Up Visit HISTORY OF [...] Coronary atherosclerosis of unspecified type of vessel, kobuk or graft Coronary Atherosclerosis - Diabetes (HCC) [...] or joint pain, Stiffness , Joint swelling NEUROLOGIC/PSYCHIATR IC: Negative for: Weakness, Paralysis, Numbness, Tingling, Tremor, Nervousness, Depressed mood, Memory loss SKIN: Negative for: Rashes, Itching HEMATOLOGICAL/LYMPHA TIC: Negative for: Easy bruising , Easy bleeding [...] . 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 Lovett, Thank you for choosing [facility] for your medical care. To help reduce healthcare costs, it is important for us to collect co-payments at the time of service. We are sorry we missed you when you were here on 03/24/2018. According to your insurance company, you are responsible for a co-payment of $1725.00. Please mail your check or money order, payable to [facility] along with the stub below, in the enclosed envelope. If you would like to pay with your credit card, please call [phone] for assistance or pay online at [employer] [employer] Again, thank you for choosing [facility]. Sincerely, Mitchell Beck Acct Patient Product Test Specialist Please detach and return in the enclosed envelope. Pay online at [employer] [employer] Patient Name: Sarina Lovett EMPI Number: [id number] Date of Service: 03/24/2018 Co-Pay Due: 1725.00 Amount Enclosed: $ .__ Please make checks payable to [facility]. Normal [facility] Vital Signs Date Time Vital Sign Value Performing Clinician Faci lity 04-11-2023 14:27-0500 Body height 165.1 cm Shaikh Shira DE LEÓN Work Phone: [facility] 04-11-2023 14:27-0500 Body mass index (BMI) [Ratio] 29.62 kg/m2 Shaikh Shira DE LEÓN Work Phone: [facility] 04-11-2023 14:27-0500 Body temperature 97.5 [degF] Shaikh Shira DE LEÓN Work Phone: [facility] 04-11-2023 14:27-0500 Body weight 80.74 kg Shaikh Shira DE LEÓN Work Phone: [facility] 04-11-2023 14:27-0500 Diastolic blood pressure 86 mm[Hg] Shaikh Shira DE LEÓN Work Phone: [facility] 04-11-2023 14:27-0500 Heart rate 85 /min Shaikh Shira DE LEÓN Work Phone: [facility] 04-11-2023 14:27-0500 SaO2% (BldA) [Mass fraction] 95 % Shaikh Shira DE LEÓN Work Phone: [facility] 04-11-2023 14:27-0500 Systolic blood pressure 122 mm[Hg] Shaikh Shira DE LEÓN Work Phone: [facility] 01-27-2023 12:57-0500 Diastolic blood pressure 82 mm[Hg] Prince Cabello [facility] 01-27-2023 12:57-0500 Heart rate 82 /min Prince Cabello [facility] 01-27-2023 12:57-0500 SaO2% (BldA) [Mass fraction] 98 % Prince Cabello [facility] 01-27-2023 12:57-0500 Systolic blood pressure 134 mm[Hg] Prince Cabello [facility] 12-16-2022 13:00-0400 Diastolic blood pressure 86 mm[Hg] Prince Cabello [facility] 12-16-2022 13:00-0400 Heart rate 76 /min Prince Cabello [facility] 12-16-2022 13:00-0400 SaO2% (BldA) [Mass fraction] 92 % Prince Cabello [facility] 12-16-2022 13:00-0400 Systolic blood pressure 140 mm[Hg] Prince Cabello [facility] 06-14-2022 11:30-0400 Body height 162.56 cm Ally Guevara Other [employer] Other 06-14-2022 11:30-0400 Body mass index (BMI) [Ratio] 30.38 kg/m2 Ally Guevara Other [employer] Other 06-14-2022 11:30-0400 Body weight 80.29 kg Ally Guevara Other [employer] Other 06-14-2022 11:30-0400 Diastolic blood pressure 100 mm[Hg] Ally Guevara Other [employer] Other 06-14-2022 11:30-0400 SaO2% (BldA) [Mass fraction] 97 % Ally Guevara Other [employer] Other 06-14-2022 11:300400 Systolic blood pressure 152 mm[Hg] Ally Guevara Other [employer] Other Encounters Encounter Date Encounter Type Care Provider Facility Start: 07-04-2023 End: 07-04-2023 ambulatory BARBA FAWWAD Not Available Start: 06-20-2023 End: 06-20-2023 ambulatory BARBA FAWWAD Not Available Start: 04-11-2023 End: 04-11-2023 ambulatory BARBA FAWWAD Not Available Start: 04-11-2023 Kelsie Silva MD Work Phone: [facility] Start: 04-11-2023 Bamboo flowsheet Shaikh Shira DE LEÓN Work Phone: [facility] Start: 04-11-2023 Clinisync Result Encounter Shaikh Shira DE LEÓN Work Phone: [facility] Unsolicited Start: 04-11-2023 End: 04-11-2023 Office outpatient visit 40 minutes Shaikh Shira DE LEÓN Work Phone: [facility] Comment on above: Other specified hypo thyroidism (CMS/HCC) (Primary Dx); Other hyperlipidemia (CMS/HCC); Coronary artery disease involving kobuk coronary artery of kobuk heart without angina pectoris (CMS/HCC); Primary hypertension (CMS/HCC); Right flank pain; Acute right flank pain Start: 03-20-2023 Letter encounter Sacha norton MD Work Phone: [facility] Start: 03-14-2023 End: 03-14-2023 ambulatory BARBA FAWWAD Not Available Start: 02-09-2023 End: 02-09-2023 ambulatory LILY GÓMEZ Not Available Start: 01-27-2023 End: 01-28-2023 ambulatory Prince Cabello [place] Start: 01-27-2023 End: 01-27-2023 Patient encounter procedure Prince Cabello [facility] Start: 01-05-2023 End: 01-06-2023 ambulatory Prince Castro Ankushbettyvalerie [place] Start: 01-05-2023 End: 01-05-2023 Patient encounter procedure Prince Lechugabettyvalerie [facility] Start: 12-20-2022 ambulatory Prince Lechugabettyvalerie Fac ility:[facility] [place] Start: 12-16-2022 End: 12-17-2022 ambulatory Prince Cabello Facility[place] Start: 12-16-2022 End: 12-16-2022 Patient encounter procedure Prince Cabello [facility] Start: 12-11-2022 Letter encounter Sacha norton MD Work Phone: [facility] Start: 09-22-2022 ambulatory Prince Ankushaneudy Fac ility:[facility] Start: 09-20-2022 End: 09-21-2022 ambulatory Augie MCDOWLEL Facility:CD:[id number] Start: 09-12-2022 Letter encounter Sacha norton MD Work Phone: [facility] Start: 06-14-2022 End: 06-14-2022 ambulatory Ally Guevara Other [facility] [employer] Other Start: 06-14-2022 Office outpatient vi sit 15 minutes Ally Guevara [facility] Start: 03-30-2022 End: 03-31-[address] ALLY GUEVARA Facility:[facility] Start: 03-14-2022 Letter encounter Sacha norton MD Work Phone: [facility] Start: 02-12-2022 End: 02-13-[address] ALLY GUEVARA Facility:[facility] Start: 01-20-2022 End: 01-21-[address] ALLY GUEVARA Facility:[facility] Start: 12-20-2021 Letter encounter Sacha norton MD Work Phone: [facility] Start: 09-19-2021 Letter encounter Sacha norton MD Work Phone: [facility] Start: 06-29-2018 End: 07-07-2018 Evaluation and management of inpatient [facility] Start: 05-02-2018 End: 05-02-2018 Patient encounter procedure E DORIS PAVAN [facility] Start: 01-20-2018 End: 01-20-2018 ambulatory UNKNOWN PROVIDER Facility:[facility] Start: 05-02-2014 Preprocedural examination done Sacha Schroeder MD Work Phone: [facility] Work Phone: Procedures Date Procedure Procedure Detail Performing Clinician Start: 04-11-2023 TBH UA (CLEAN/CATCH) MICROSCOPIC IF INDICATE Shaikh Shira DE LEÓN Work Phone: Start: 01-20-2018 INFLUENZA, INACTIVATED, INTRAMUSCULAR, NON-RECOMBINANT PROTOCOL ORDER UNKNOWN PROVIDER Start: 01-20-2018 OPHTHALMOLOGY SERVICE REQUEST UNKNOWN PROVIDER Start: 01-20-2018 RN NURSE CLINIC VISIT - BP UNKNOWN PROVIDER Start: 05-20-2016 History of placement of stent [...] vaccination Tetanus (T d or Tdap) Booster [facility] Start: 08-17-2023 End: 08-17-2023 Patient encounter procedure 08/17/2023 9:40 AM EDT Office Visit [facility] [address] [place] [address] Lily Gómez MD [address] [place] [address] [facility] Start: 06-20-2023 End: 06-20-2023 Patient encounter procedure 06/20/2023 1:00 PM EDT Office Visit [facility] [address] [place] [address] Shaikh Silva MD [address] [place] [address] [facility] Start: 04-11-2023 End: 04-11-2024 CBC W Auto Differential panel - Blood CBC and differential Lab Routine Coronary artery disease involving kobuk coronary artery of kobuk heart without angina pectoris (CMS/HCC) Primary hypertension (CMS/HCC) Expected: 04/11/2023 (Approximate), Expires: 04/11/2024 [facility] Work Phone: Comment on above: Expected: 04/11/2023 (Approximate), Expires: 04/11/2024 Start: 04-11-2023 End: 04-11-2024 Comprehensive metabolic 2000 panel - Serum or Plasma Comprehensive metabolic panel Lab Routine Coronary artery disease involving kobuk coronary artery of kobuk heart without angina pectoris (CMS/HCC) Primary hypertension (CMS/HCC) Expected: 04/11/2023 (Approximate), Expires: 04/11/2024 [facility] Comment on above: Expected: 04/11/2023 (Approximate), Expires: 04/11/2024 Start: 04-11-2023 End: 04-11-2024 CT Abdomen and Pelvis WO contrast CT abdomen pelvis wo IV contrast Imaging Routine Right flank pain Expected: 04/11/2023, Expires: 04/11/2024 [facility] Comment on above: Expected: 04/11/2023 , Expires: 04/11/2024 Start: 04-11-2023 End: 04-11-2024 Lipid 1996 panel - Serum or Plasma Lipid panel Lab Routine Other hyperlipidemia (CMS/HCC) Expected: 04/11/2023 (Approximate), Expires: 04/11/2024 [facility] Comment on above: Expected: 04/11/2023 (Approximate), Expires: 04/11/2024 Start: 04-11-2023 End: 04-11-2024 TSH W/REFLEX TO FT4 TSH W/REFLEX TO FT4 Lab Routine Other specified hypothyroidism (CMS/HCC) Expected: 04/11/2023 (Approximate), Expires: 04/11/2024 [facility] Comment on above: Expected: 04/11/2023 (Approximate), Expires: 04/11/2024 Start: 04-11-2023 End: 04-11-2024 Urinalysis complete panel - Urine Urinalysis with reflex microscopic (clean catch) Lab Routine Right flank pain Expected: 04/11/2023 (Approximate), Expires: 04/11/2024 [facility] Comment on above: Expected: 04/11/2023 (Approximate), [...] Pneumococcal Vaccine: 65+ Years (2 - PCV) [facility] Start: 02-28-2013 Annual wellness visit Annual W ellness Visit ([id number]) [facility] Start: 2007 RSV vaccine (optiona l 60+ years) RSV vaccine (optional 60+ years) [facility] Start: 1997 Measurement of occul t blood in single stool specimen FIT [facility] Start: 1997 Shingles (RZV) Vacci ne (1 of 2) Shingles (RZV) Vaccine (1 of 2) [facility] Start: 1945 COVID-19 Vaccine (#1) COVID-19 Vacci ne (#1) [facility] Start: 1945 Medicare Annual Wellness (AWV) Medicare Annual Wellness (AWV) [facility] Immunizations Immunization Date Immunization Notes Care Provider [facility] 01-20-2018 Seasonal trivalent influenza vaccine, adjuvanted, preservative free Sacha Schroeder MD Work Phone: [facility] 01-20-2018 influenza virus vaccine, unspecified formulation Sacha Schreoder MD Work Phone: [facility] 04-28-2017 pneumococcal polysaccharide vaccine, 23 valent Sacha Schroeder MD Work Phone: [facility] 12-14-2016 influenza virus vaccine, unspecified formulation Shaikh Shira DE LEÓN Work Phone: [facility] 12-13-2016 pneumococcal polysaccharide vaccine, 23 valent Shaikh Shira DE LEÓN Work Phone: [facility] 02-02-2016 influenza, seasonal, injectable, preservative free Sacha Schroeder MD Work Phone: [facility] 09-29-2015 pneumococcal conjuga te vaccine, 13 valent Sacha Schroeder MD Work Phone: [facility] 08-23-2015 tetanus toxoid, redu anh diphtheria toxoid, and acellular pertussis vaccine, adsorbed Sacha Schroeder MD Work Phone: [facility] Work Phone: 12-05-2013 influenza virus vaccine, unspecified formulation Sacha Schroeder MD Work Phone: [facility] 11-10-2010 pneumococcal polysaccharide vaccine, 23 valent Shaikh Shira DE LEÓN Work Phone: [facility] Payers Date Payer Category Payer Unknown [id number] 2014 Medicare [id number] 2014 Medicare ANTHEM - MEDICAR E ANTHEM MEDICARE [id number] 2014-Present [address] [place] [address] Medicare HMO [id number] 1959 Self-pay [id number] 1959 Unknown [id number] 1945 Unknown [id number] 1947 Unknown [id number] [id number] 1947 Unknown [id number] [id number] 1947 Unknown [id number] [id number] 1947 Unknown [id number] [id number] 1947 Unknown [id number] [id number] 1947 Unknown [id number] [id number] 1947 Unknown [id number] [id number] 1947 Unknown [id number] [id number] 1947 Unknown [id number] [id number] 1947 Unknown [id number] [id number] 1947 Unknown [id number] [id number] 1947 Unknown [id number] [id number] Unknown [id number] Social History Date Type Detail Facility Start: 07-09-2015 End: 03-14-2023 Tobacco smoking status NHIS [facility]-smoker [facility] Start: 07-18-1960 End: 07-18-2013 History of tobacco use Current smoker [facility] Start: 07-18-1960 End: 07-18-2013 History of tobacco use Cigarette Smoker [facility] Start: 07-09-2015 End: 04-11-2023 Cigarettes smoked current (pack per day) - Reported 1 [facility] Start: 07-09-2015 End: 03-14-2023 Tobacco use and exposure Smokeless tobacco non-user [facility] Start: 01-20-2018 Alcohol intake Current non-dr contact center team lead of alcohol (finding) [facility] Start: 02-21-2014 Tobacco Comment quite july 18, 2013 [facility] Start: 1945 [facility]igned At Not on file [facility] Start: 02-08-2023 End: 04-11-2023 Sex Assigned At [facility] History of tobacco use Passive smoker [...] Chamber 20.0 Intraocular Sa60at Sa60at 20.0 - [id number] Start: 02-19-2016 Lens Posterior Chamber 20.0 Intraocular Sa60at Sa60at 20.0 - [id number] Start: 03-03-2016 Goals Date Patient Goal [...] Assessment Result Facility 01-27-2023 Functional Status No [facility] 12-16-2022 Functional Status No [facility] Clinical Notes 06-14-2022 to 04-11-2023 Shaikh Shira MD - 04/11/2023 3:48 PM Simona Silva MD - 04/11/2023 3:46 PM Simona Silva MD - 04/11/2023 2:56 PM Simona Silva MD - 04/11/2023 2:56 PM EST [...] contrast. 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 female who presents [...] Problem List Items Addressed This Visit Hypertension ([facility]) BP well controlled. On average less than 130/90. Tolerating Anti hypertensive w/o adverse effects. Denies lightheadedness, dizziness, syncope, presyncope. Patient encouraged to continue with home BP monitoring and call office if he experiences orthostatic symptoms or persistently elevated BP. On amlodipine, losartan/hydrochlorothiazide. Relevant Medications amLODIPine (Norvasc) 5 MG tablet Other Relevant Orders CBC and differential Comprehensive metabolic panel Other specified hypothyroidism ([facility]/HCC) - Primary On levothyroxine, check TSH. Relevant Orders TSH W/REFLEX TO FT4 Other hyperlipidemia ([facility]) On simvastatin. 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 Asymptomatic. Follows [...] months (around 06/10/2023). documented in this encounter [facility] 01-05-2023 Note Echocardiology Procedure Exam Date/Time Accession # Ordering Echo Transthoracic 01/05/2023 10:17 EST [id number] Destiney DE LEÓN, Prince Castro CPT code [id number] Reason for Exam (Echo Transthoracic Complete) I25.10;CAD Coronary artery disease Report [facility] [address] [place] [address] Adult Echocardiogram Report Name: SARIAN ABRAHAM Study Date: 01/05/2023 08:53 AM BP: 143/90 mmHg Patient Location: [facility] HR: 70 : 1945 Gender: Female Height: 63 in Age: 77 yrs Ethnicity: [facility] Weight: 175 lb Reason For Study: CAD Coronary artery disease BSA: 1.8 m2 History: HTN,Stents Ordering Physician: Destiney^Prince^Matthew Referring Physician: Prince Cabello Performed By: Helen Godinez, ANN, RVT Interpretation Summary No comparison study is [...] & Calculations Echocardiology Report MV E max raffi: 41.6 cm/sec MV dec time: 0.21 sec Ao V2 max: 104.0 cm/sec LV V1 max P.6 mmHg MV A max raffi: 87.5 cm/sec Ao max P.3 mmHg LV V1 mean P.0 mmHg MV E/A: 0.48 Ao V2 mean: 70.0 cm/sec LV V1 max: 80.8 cm/sec Lat Peak E' Raffi: 5.0 cm/sec Ao mean P.0 mmHg LV V1 mean: 54.5 cm/sec E/E' Lat: 8.3 Ao V2 VTI: 22.1 cm LV V1 VTI: 19.1 cm Med Peak E' Raffi: 5.1 cm/sec E/E' Med: 8.1 PHILIPPE(I,D): 3.4 cm2 PHILIPPE(V,D): 3.0 cm2 SV(LVOT): 74.1 ml RAP systole: 3.0 mmHg AV VR: 0.78 PHILIPPE(VTI)/BSA_phl: 1.8 FINAL REPORT Dictated: 01/05/2023 8:53 am Nacho ADAMS MD Signed (Electronic Signature): 01/05/2023 10:43 am Signed by: Nacho ADAMS MD Transcribed by: NAZIA Technologist: LASHAY [facility] 06-14-2022 Evaluation note Encounter Date Diagnosis Assessment Notes May, Dental infection (ICD-10 - K04.7) Discussed differential of [place] palsy v. dental issue. Tooth fragment appears inflammed. She will contact her dentist and let us know what they say. [facility] Other Evaluation + Plan note Future Appointments Appointment Date:01/27/2023 01:15:00 PM Scheduled Provider:Prince Cabello MD Location:[facility] Appointment Type:Cardiology Follow Up (FT) Future Scheduled Tests Radiology* Echo Transthoracic Complete 12/16/22 * US Carotid Dup[facility] Future [facility]ments Appointment Date:01/27/2023 01:15:00 PM Scheduled Provider:Prince Cabello MD Location:.[facility] Appointment Type:Cardiology Follow Up (FT) [facility] Future Appointments Appointment Date:07/22/2023 01:15:00 PM Scheduled Provider:Prince Cabello MD Location:[facility] Appointment Type:Cardiology [facility] ([facility] Diagnosis Other specified hypothyroidism (CMS/HCC)- Primary Other hyperlipidemia (CMS/HCC) Coronary artery disease involving [place] coronary artery of [place] heart without angina pectoris (CMS/HCC) Primary hypertension (CMS/HCC) Unspecified essential hypertension Right flank pain Abdominal pain, unspecified site Acute right flank pain documented in this encounter [facility] - Reported* Type Description Date Medical History Hypertension Medical History Hyperlipidemia [place] Other Hospital course Narrative No data available for this section [facility] No data available for this section [facility] No data available for this section [facility] Summary Purpose Family History No Family [...] IV contrast Shaikh Silva MD [address] [place] [address] Referral ID Status Reason Start Date Expiration Date V isits Requested Visits Authorized [id number] Pending Review 04/11/2023 10/08/2023 1 1 Additional Source Comments INFORMATION SOURCE (unrecogn ized section and content) DATE CREATED AUTHOR 06/05/2018 [facility] DATE CREATED AUTHOR AUTHOR'S ORGANIZ ATION 05/17/2021 [facility] [employer] DATE CREATED AUTHOR AUTHOR'S ORGANIZ ATION 04/01/2022 [facility] DATE CREATED AUTHOR AUTHOR'S ORGANIZ ATION 01/29/2023 [facility] DATE CREATED AUTHOR AUTHOR'S ORGANIZ ATION 07/05/2023 [facility] DATE CREATED AUTHOR AUTHOR'S ORGANIZ ATION 07/30/2023 [facility] Care Teams (unrecognized sec tion and content) [employer] Relationship Specialty Start Date End Date Sacha Schroeder MD [facility] [place], [place] [id number] PCP - General Family Medicine 03/27/14 [employer] Relationship Specialty Start Date End Date Sacha Schroeder MD [address] [place] [phone] PCP - General Family Medicine 03/27/14 [employer] Relationship Specialty Start Date End Date Sacha Schroeder MD [address] [place] [id number] PCP - General Family Medicine 03/27/14 [employer] Relationship Specialty Start Date End Date Shaikh Silva MD [address] [place] [phone] PCP - [employer] 02/28/23 Shaikh Silva MD [address] [place] [phone] PCP - General Internal Medicine 04/11/23 [employer] Relationship Specialty Start Date End Date Shaikh Silva MD [address] [place] [phone] PCP - [facility] 02/28/23 Shaikh Silva MD [address] [place] [address] PCP - General Internal Medicine 04/11/23 [employer] Relationship Specialty Start Date End Date Shaikh Silva MD [address] [place] [address] PCP - [facility] 02/28/23 Shaikh Silva MD [address] [place] [phone] PCP - General Internal Medicine 04/11/23 REASON [...] BE BASED ON THE PRIMARY CLINICAL RECORDS. [employer] [facility]. provides no warranty or guarantee of the accuracy or completeness of information in this document.
== END 2023-08-05 12:35 | disposition home or self-care (01) ==
LOC: US 12:35
PROVIDERS: PCP Internal Medicine; Visit Provider Otolaryngology
DX: R22.1 Localized swelling, mass and lump, neck (principal)
CPT/HCPCS: 76536

== ENCOUNTER 2024-02-07 09:49 | Outpatient (OUT) | payer OTHER, SELFPAY ==
--- NOTE | 2024-02-07 09:52 | US_ITS ---
The [address] [address] Patient Name: AYSHA ABRAHAM MRN: [id number] date: 1945 Sex: F Assigned Patient Location: US Current Patient Location: Accession/Order Number: [id number] Exam Date: 02/07/2024 09:55 Report Date: 02/08/2024 05:57 At the request of: LETHA GÓMEZ Procedure: US thyroid EXAMINATION: US thyroid HISTORY: Thyroid Nodule COMPARISON: Ultrasound thyroid 03/30/2022 FINDINGS: RIGHT LOBE: Contains a 7 mm TR 3 nodule within mid body. Several tiny colloid cysts. Lobe size: 4.1 x 2.0 x 1.3 cm LEFT LOBE: Several small colloid cysts, largest is 7 mm. Lobe size: 4.5 x 1.0 x 1.4 cm ISTHMUS: Normal size and echotexture. Thickness: 2 mm OTHER: Oval heterogeneous 2.3 x 2.0 x 1.0 cm mass within left neck anterior to the carotid bifurcation. US/US thyroid IMPRESSION: 1. Stable small thyroid nodule and incidental colloid cysts. No additional follow-up recommended at this time. 2. Slight increase in size of nonspecific mass anterior to left carotid bifurcation. This has been previously evaluated with dedicated ultrasound of this area. TR3 (mildly suspicious): > 1.5 cm, follow-up ultrasound in 1, 3, and 5 years. > 2.5 cm, fine needle aspiration. Electronically authenticated by: CAMILLE CARTER Date: 02/08/2024 05:57
== END 2024-02-07 09:50 | disposition home or self-care (01) ==
LOC: US 09:49
PROVIDERS: Visit Provider Otolaryngology
DX: E04.1 Nontoxic single thyroid nodule (principal)
CPT/HCPCS: 76536